=== PATIENT | female | born 1975 | race Caucasian/White ===

== ENCOUNTER 2021-11-30 02:39 | Outpatient (CLI) | payer OTHER, SELFPAY | END 2021-11-30 02:40 | disposition home or self-care (01) | LOC: AMB 12-07 07:43 | PROVIDERS: PCP Family Medicine; Visit Provider Family Medicine | DX: R25.9 Unspecified abnormal involuntary movements (principal) | CPT/HCPCS: A0425; A0427 ==

== ENCOUNTER 2021-11-30 03:02 | Emergency (ER) | payer OTHER, SELFPAY ==
[2021-11-30 03:09] VITALS: BP 147/84; PULSE 99; RESP 18; TEMP 36.6; O2SAT 98; BMI 49.8
[2021-11-30] MEDS: LORazepam 0.5 MG TABLET PO (03:25)
--- NOTE | 2021-11-30 03:38 | ED_ITS ---
HPI - General Adult General Time Seen by Provider: 03:37 Date Seen: 11/30/21 Chief complaint: Unspecified Complaint, Adult Stated complaint: Shaking legs Time Seen by Provider: 11/30/21 03:04 Source: patient Mode of arrival: EMS Limitations: no limitations History of Present Illness HPI narrative: Patient is a 46-year-old female presents here with the episodes shaking, whenever she turns her head she notices her neck shakes, or when she holds arms out. Says this is happening more than usual. She has been told in the past this may be an infective her medications, she decided to come into the emergency room tonight for an assessment. She describes no history of falls or injury, no history of fevers chills or sweats, she has no personal history of seizures, use of alcohol, drugs, or other issues. Do seen her chart she was seen for myoclonic shaking in the past. She has a history of anxiety and ADHD. Related Data Home Medications Medication Instructions Recorded Confirmed albuterol sulfate 90 mcg/actuation 2 puff INHALATION Q4H PRN 11/30/21 11/30/21 aerosol inhaler budesonide-formoterol HFA 160 2 puff INHALATION Q12H 11/30/21 11/30/21 mcg-4.5 mcg/actuation aerosol inhaler bupropion HCl 150 mg 24 hr tablet, 150 mg PO DAILY 11/30/21 11/30/21 extended release fluticasone 250 mcg-salmeterol 50 1 inh INHALATION Q12H 11/30/21 11/30/21 mcg/dose blistr powdr for inhalation (Wixela Inhub) ipratropium 0.5 mg-albuterol 3 mg 3 ml INHALATION Q6H PRN 11/30/21 11/30/21 (2.5 mg base)/3 mL nebulization soln levothyroxine 200 mcg tablet 200 mcg PO DAILY 11/30/21 11/30/21 mirabegron 50 mg tablet,extended 50 mg PO Q24H 11/30/21 11/30/21 release 24 hr (Myrbetriq) montelukast 10 mg tablet 10 mg PO HS 11/30/21 11/30/21 paroxetine HCl 40 mg tablet 40 mg PO HS 11/30/21 11/30/21 Allergies Allergy/AdvReac Type Severity Reaction Status Date / Time azithromycin Allergy Intermediate Bloody Verified 11/30/21 03:14 Stools latex Allergy Intermediate Rash Verified 11/30/21 03:14 oxycodone Allergy Intermediate Agitated Verified 11/30/21 03:14 scopolamine Allergy Intermediate Tremors Verified 11/30/21 03:14 Review of Systems Status of ROS: Reports: 10 or more systems reviewed and unremarkable except as noted in History and below [facility] History ADHD Anxiety and depression Asthma GERD (gastroesophageal reflux disease) Hydrocephalus Hyperlipidemia Hyperthyroidism RODRICK (obstructive sleep apnea) Surgical History No significant past surgical history Social History Smoking Status: Never smoker Do you use any of these nicotine containing products: None How often do you have a drink containing alcohol: never How often do you have six or more drinks on one occasion: Never AUDIT-C Alcohol total score: 0 Non-prescribed substance use: denies use Exam Const: Vital Signs, click to edit/add: Vital Signs - 24 hr 11/30/21 03:09 Temperature 97.9 F Pulse Rate [Right Pulse Oximeter] 99 Respiratory Rate 18 Blood Pressure [Ri ght Upper Arm] 147/84 H Pulse Oximetry 98 Documenting provider has reviewed patient's vital signs: yes Common n ormals: no apparent distress and oriented x3 General appearance: cooperative and comfortable Nutritional appearance: obese Orientation/consciousness: Yes awake, Yes oriented to person, Yes oriented to place and Yes oriented to time HENMT: Common normals: normocephalic, head/scalp atraumatic, external ears normal, EAC's normal and TM's normal bilaterally Head and scalp: normocephalic and atraumatic External ear: external ears normal External auditory canal: EAC's normal Tympanic membrane: TM's normal bilaterally Mouth: oral and palatal mucosa normal Eye: Common normals: PERRL, EOMs intact bilaterally (The left eye seems a little dysconjugate to the right.), conjunctivae normal and fundi normal bilaterally Visual acuity: acuity normal Periorbital: periorbital findings normal Eyelid: eyelids normal Conjunctiva: conjunctiva(e) normal Sclera: sclerae normal Cornea: corneas normal Pupil: PERRL Direct Ophthalmoscopy: fundi normal bilaterally Neck & C-Spine: Common normals: full ROM, no lymphadenopathy, supple, no meningeal signs and no JVD Other: She does have episodes when she turns her head that her head will shake. Is clearly voluntary or volitional, given what I see. Does not seem to be intention tremor type situation. Lymph: Lymphatic: no lymphadenopathy noted and no lymphedema noted Resp: Common normals: normal respiratory effort, no retractions, no use of accessory muscles, clear to auscultation bilaterally and percussion normal Auscultation: clear to auscultation bilaterally Percussion: percussion normal Cardio: Common normals: no JVD, regular rate, regular rhythm, S1 normal heart sound, S2 normal heart sound, no gallops, no clicks, no murmurs, no rub and peripheral pulses 2+ throughout Rate: regular rate Rhythm: regular rhythm Heart sounds: S1 normal and S2 normal Peripheral pulses: pulses 2+ throughout GI: Common normals: Normal to inspection, nondistended, normoactive bowel sounds present, soft to palpation, non-tender, no hepatosplenomegaly, no masses and no bruits Palpation: soft and no hepatosplenomegaly : Common normals: no CVA tenderness, external appearance normal, appearance of the vagina normal, appearance of the cervix normal and adnexae non-tender Bladder/kidney exam: no CVA tenderness Back & Pelvis: Common normals: no CVA tenderness, thoracic and lumbar spine normal to inspection, no thoracic nor lumbar tenderness, thoraco-lumbar ROM normal and straight leg raise negative bilaterally Extremity: Common normals: normal to inspection, full ROM, normal capillary refill, no joint enlargement, no clubbing, cyanosis or edema, no calf tenderness and no pedal edema Neuro: Common normals: oriented x3, CN's II-XII intact bilaterally, moves all extremities, no focal motor deficits, no sensory deficits noted, deep tendon reflexes 2+ bilaterally and gait normal Sensorium/orientation: awake, oriented to person, oriented to place and oriented to time Meningeal signs: no meningeal signs Cranial nerves: CN normal except as noted Coordination/balance: [id number] test normal and [id number] test normal Speech: speech normal Gait (neuro): normal gait Motor exam: strength 5/5 throughout, no pronator drift, no tremor noted, no asterixis, no fasciculations and muscle tone normal throughout Coordination: [id number] test normal and [id number] test normal Psych: Common normals: mental status grossly normal Skin: Common normals: no rashes or lesions noted General skin exam: no rashes or lesions noted Course Course Hospital Course: I do not think this is seizure activity, this seems to be either voluntary or myoclonic type situation. She has had this before in the past and I do not think this is tardive dyskinesia or a dystonia. Reevaluation(s) Reevaluation #1: Patient doing well we are unable the find a ride with her home, we will let her sleep here, the Ativan seems to be working. Once morning comes around we can discharge her to follow up with primary MD. she was comfortable with this plan. Time: 04:02 Vital Signs Vital signs: Initial Vital Signs Temperature 97.9 F 11/30/21 03:09 Temperature Source Temporal Artery Scan 11/30/21 03:09 Pulse Rate 99 11/30/21 03:09 Respiratory Rate 18 11/30/21 03:09 Blood Pressure 147/84 H 11/30/21 03:09 Blood Pressure Mean 105 11/30/21 03:09 Blood Pressure Position Sitting 11/30/21 03:09 Pulse Oximetry 98 11/30/21 03:09 Oxygen Delivery Method 11/30/21 03:09 Vital Signs Temperature 97.9 F 11/30/21 03:09 Pulse Rate 99 11/30/21 03:09 Respiratory Rate 18 11/30/21 03:09 Blood Pressure 147/84 H 11/30/21 03:09 Pulse Oximetry 98 11/30/21 03:09 Temperature 97.9 F 11/30/21 03:09 Pulse Rate 99 11/30/21 03:09 Respiratory Rate 18 11/30/21 03:09 Blood Pressure 147/84 H 11/30/21 03:09 Pulse Oximetry 98 11/30/21 03:09 Medical Decision Making MDM Narrative Medical decision making narrative: Differential diagnosis include but not limited to epilepsy, drug toxin ingestion, blood sugar abnormalities, cancer, syncope, and electrolyte imbalances. This included life-threatening complications of drug toxin ingestion, cancer, and trauma head injury. Medical Records Medical records reviewed: Yes I reviewed the patient's medical records Discharge Plan Discharge Prescriptions: No Action montelukast 10 mg tablet 10 mg PO HS 0RF Label Comments: TAKE 1 TABLET BY MOUTH EVERYDAY AT BEDTIME Myrbetriq 50 mg tablet extended release 24 hr 50 mg PO Q24H 0RF Label Comments: TAKE 1 TABLET BY MOUTH EVERY DAY levothyroxine 200 mcg tablet 200 mcg PO DAILY 0RF Label Comments: TAKE 1 TABLET BY MOUTH DAILY. paroxetine HCl 40 mg tablet 40 mg PO HS 0RF Label Comments: TAKE 1 TABLET BY MOUTH EVERYDAY AT BEDTIME albuterol sulfate 90 mcg/actuation HFA aerosol inhaler 2 puff INHALATION Q4H PRN0RF Label Comments: INHALE 2 PUFFS BY MOUTH EVERY 4 HOURS NEEDED budesonide-formoterol 160-4.5 mcg/actuation HFA aerosol inhaler 2 puff INHALATION Q12H 0RF Label Comments: INHALE 2 PUFFS BY MOUTH TWICE DAILY bupropion HCl 150 mg tablet extended release 24 hr 150 mg PO DAILY 0RF Label Comments: TAKE 1 TABLET BY MOUTH DAILY. fluticasone propion-salmeterol [Wixela Inhub] 250-50 mcg/dose blister with device 1 inh INHALATION Q12H 0RF Label Comments: INHALE 1 PUFF BY MOUTH TWICE A DAY ipratropium-albuterol 0.5 mg-3 mg(2.5 mg base)/3 mL solution for nebulization 3 ml INHALATION Q6H PRN0RF Label Comments: INHALE ONE VIAL VIA NEBULIZER FOUR TIMES DAILY Follow Up/Referrals: Geronimo Lamb MD [Primary Care Provider] -
[2021-11-30] MEDS: IPRAT-ALBUT 0.5-2.5 MG/3 ML NEB 1 NEB IH (05:50)
[2021-11-30 06:08] VITALS: BP 136/98; PULSE 95; RESP 18; TEMP 36.6; O2SAT 92
== END 2021-11-30 07:27 | disposition home or self-care (01) ==
LOC: ED 03:39
PROVIDERS: Emergency Provider Family Medicine; PCP Family Medicine
DX: R25.9 Unspecified abnormal involuntary movements (principal)
CPT/HCPCS: 94640; 99283; A9270

== ENCOUNTER 2022-02-20 06:59 | Outpatient (CLI) | payer OTHER, SELFPAY | END 2022-02-20 07:00 | disposition home or self-care (01) | LOC: AMB 03-04 12:01 | PROVIDERS: PCP Family Medicine; Visit Provider Family Medicine | DX: R06.09 Other forms of dyspnea (principal); R07.89 Other chest pain | CPT/HCPCS: A0425; A0427 ==

== ENCOUNTER 2022-02-20 07:33 | Emergency (ER) | payer OTHER, SELFPAY ==
[2022-02-20] VITALS (11 sets, daily range): BP systolic 113–152; BP diastolic 09–109; PULSE 74–85; RESP 12–26; TEMP 35.9; O2SAT 93–97; BMI 50.2
--- NOTE | 2022-02-20 08:10 | ED_ITS ---
HPI - SOB/Dyspnea General Time Seen by Provider: 08:10 Date Seen: 02/20/22 Chief Complaint: Shortness of Breath/Dyspnea Stated Complaint: Difficulty breathing Time Seen by Provider: 02/20/22 08:10 Source: patient, RN notes reviewed and old records reviewed Mode of arrival: EMS Limitations: no limitations History of Present Illness HPI Narrative: Patient is a very pleasant 46-year-old female with multiple medical problems including history of asthma with significant exacerbation in June resulting in intermittent O2 use, obesity, depression and anxiety, ADHD with congenital hydrocephalus who comes to the emergency room for evaluation of chest pain. Overnight patient had substernal chest pain that she thinks stems from 24 hours of shortness of breath which began on Friday02/18/2022. Prior to that, patient noted the onset of diarrhea February 14 through February 16. She then had the onset of a sore throat and runny nose on Friday yesterday February 18 along with the shortness of breath. She states that she had to use her oxygen which she typically only uses at night. In regards to her chest pain, she feels that that is somewhat improved and notes now her pain is more under her left rib cage. Patient does agree that she feels like her lower extremities have been more swollen. She is not on blood thinners and states that she has not been moving around very much. Patient notes exposure to COVID in May of 2021. During that time she developed diarrhea, body aches and a fever but never tested positive for COVID. She was seen multiple times in the emergency room in June for respiratory complaints. She was admitted to [facility] for asthma exacerbation with hypoxia at the end of June. Again, notes she never tested positive for COVID. She only uses oxygen at night She notes that in May she was exposed and had symptoms similar to COVID including fever, loose stools and body aches. In June she was seen multiple times at the ER and finally hospitalized with oxygen on July 20 per patient. She notes that she was sent home with oxygen after 5 days. Also she has been experiencing some strange shaking movements. She is scheduled to see neuro and neurological tomorrow. She states that at times her whole body will shake. Nursing staff notes that there was a 5 seconds event while they were doing triage. Patient's head moved back of 4th and her whole body was shaking. Patient demonstrates to me involuntary movements of her right arm. Noted past medical history is chronic diarrhea. Also noted ED visit for these movements. Physician assessment is that they are myoclonic or voluntary in nature. Patient has appointment with Neurology tomorrow 02/21/2022 for EEG. MD elicited complaint: shortness of breath Pertinent past history: asthma Onset (ago): day(s) Context: recent illness and anxiety Severity: moderate Known history of: asthma Associated symptoms: chest pain Treatment prior to arrival: oxygen and bronchodilator Related Data Home oxygen amount: 1 liter Home Medications Medication Instructions Recorded Confirmed albuterol sulfate 90 mcg/actuation 2 puff inhalation Q4H PRN 11/30/21 11/30/21 aerosol inhaler budesonide-formoterol HFA 160 2 puff inhalation Q12H 11/30/21 11/30/21 mcg-4.5 mcg/actuation aerosol inhaler bupropion HCl 150 mg 24 hr tablet, 150 mg PO DAILY 11/30/21 11/30/21 extended release fluticasone 250 mcg-salmeterol 50 1 inh inhalation Q12H 11/30/21 11/30/21 mcg/dose blistr powdr for inhalation (Wixela Inhub) ipratropium 0.5 mg-albuterol 3 mg 3 ml inhalation Q6H PRN 11/30/21 11/30/21 (2.5 mg base)/3 mL nebulization soln levothyroxine 200 mcg tablet 200 mcg PO DAILY 11/30/21 11/30/21 mirabegron 50 mg tablet,extended 50 mg PO Q24H 11/30/21 11/30/21 release 24 hr (Myrbetriq) montelukast 10 mg tablet 10 mg PO HS 11/30/21 11/30/21 paroxetine HCl 40 mg tablet 40 mg PO HS 11/30/21 11/30/21 Allergies Allergy/AdvReac Type Severity Reaction Status Date / Time azithromycin Allergy Intermediate Bloody Verified 02/20/22 08:01 Stools latex Allergy Intermediate Rash Verified 02/20/22 08:01 oxycodone Allergy Intermediate Agitated Verified 02/20/22 08:01 scopolamine Allergy Intermediate Tremors Verified 02/20/22 08:01 Review of Systems Status of ROS: Reports: 10 or more systems reviewed and unremarkable except as noted in History and below Const: Reports: fatigue; Denies: fever or chills Eyes: Denies: change in vision ENMT: Reports: throat pain; Denies: neck pain or difficulty swallowing Cardio: Reports: chest pain (Improved), swelling of feet/ankles (Subjective) a nd shortness of breath with exertion (Has been chronic since COVID infection in May.); Denies: palpitations Resp: Reports: shortness of breath (Has been chronic since COVID infection in May.) GI: Reports: abdominal pain, nausea and diarrhea (Last week now improved); Denies: vomiting or difficulty swallowing : Denies: painful urination or urinary frequency Musculo: Denies: back pain or neck pain Integ/Breast: Denies: rash Neuro: Denies: headache or numbness in extremities Psych: Reports: anxiety (History of) and other (Depression without suicidal ideation) Endo: Reports: fatigue PFSH PFS Medical History ADHD Anxiety and depression Asthma GERD (gastroesophageal reflux disease) Hydrocephalus Hyperlipidemia Hyperthyroidism RODRICK (obstructive sleep apnea) Surgical History No significant past surgical history Social History Smoking Status: Never smoker Do you use any of these nicotine containing products: None How often do you have a drink containing alcohol: never How often do you have six or more drinks on one occasion: Never AUDIT-C Alcohol total score: 0 Non-prescribed substance use: denies use Exam Narrative: Exam Narrative: Gross and fine motor movement upper extremities lower extremities with intact. Const: Vital Signs, click to edit/add: Vital Signs - 24 hr 02/20/22 07:44 02/20/22 10:30 02/20/22 11:00 Temperature 96.6 F L Pulse Rate [Right Pulse Oximeter] 80 79 80 Respiratory Rate 18 15 16 Blood Pressure [Ri ght Forearm] 122/77 152/109 H 127/85 Pulse Oximetry 93 97 95 Oxygen Delivery Me thod Room Air Nasal Cannula Nasal Cannula Oxygen Flow Rate 1 02/20/22 11:30 02/20/22 12:00 02/20/22 12:15 Temperature Pulse Rate [Right Pulse Oximeter] 82 74 80 Respiratory Rate 26 H 16 15 Blood Pressure [Ri ght Forearm] 119/90 H 127/91 H Pulse Oximetry 95 96 95 Oxygen Delivery Me thod Nasal Cannula Nasal Cannula Nasal Cannula Oxygen Flow Rate 1 02/20/22 08:00 02/20/22 08:43 02/20/22 08:30 Temperature Pulse Rate [Right Pulse Oximeter] 80 Respiratory Rate 16 Blood Pressure [Ri ght Forearm] 116/85 Pulse Oximetry 95 94 Oxygen Delivery Me thod Nasal Cannula Nasal Cannula Room Air Oxygen Flow Rate 1 1 02/20/22 09:00 02/20/22 09:30 02/20/22 10:00 Temperature Pulse Rate [Right Pulse Oximeter] 80 85 81 Respiratory Rate 17 12 20 Blood Pressure [Ri ght Forearm] 113/86 122/85 127/97 H Pulse Oximetry 95 95 97 Oxygen Delivery Me thod Nasal Cannula Nasal Cannula Nasal Cannula Oxygen Flow Rate 1 1 02/20/22 10:30 Temperature Pulse Rate [Right Pulse Oximeter] 77 Respiratory Rate 16 Blood Pressure [Ri ght Forearm] 152/09 H Pulse Oximetry 97 Oxygen Delivery Me thod Nasal Cannula Oxygen Flow Rate 1 Documenting provider has reviewed patient's vital signs: yes Common normals: no apparent distress, oriented x3 and alert General appearance: cooperative, comfortable, well kempt and anxious HENMT: Common normals: head/scalp atraumatic, hearing grossly normal bilaterally and external ears normal Head and scalp: atraumatic Face and sinus: normal facial exam External ear: external ears normal Mouth: oral and palatal mucosa normal Throat: posterior oropharynx normal Eye: Common normals: PERRL and EOMs intact bilaterally Pupil: PERRL Other: Chronic dysconjugate gaze. Neck & C-Spine: Common normals: full ROM, no lymphadenopathy and supple Resp: Common normals: normal respiratory effort, no use of accessory muscles and clear to auscultation bilaterally Effort & inspection: able to speak in complete sentences and symmetric chest movement Auscultation: clear to auscultation bilaterally Cardio: Common normals: regular rate and regular rhythm Rate: regular rate Rhythm: regular rhythm GI: Common normals: soft to palpation Palpation: soft : Common normals: no CVA tenderness Bladder/kidney exam: no CVA tenderness Back & Pelvis: Common normals: no CVA tenderness Extremity: Common normals: normal to inspection and full ROM Neuro: Common normals: oriented x3, moves all extremities and no focal motor deficits Sensorium/orientation: alert Psych: Common normals: cooperative and speech normal Appearance: well kempt Activity/motor behavior: appropriate eye contact Speech: normal speech Other: Patient noted to show me and demonstrates how her right arm will suddenly moving a flapping like behavior. She is abducting her arm in order to show me this movement at her wrist hand and elbow and is telling me that this is involuntary. Skin: Common normals: no rashes or lesions noted General skin exam: no rashes or lesions noted Course Course Hospital Course: Will obtain cardiac workup including EKGs and troponin including x-ray. Will also check CBC, comprehensive panel as well as COVID. Have added a D-dimer, proBNP and urinalysis. Reevaluation(s) Reevaluation #1: Patient noted to call nursing staff back into room stating that she had just had full body seizure. This was not noted by nursing staff or on video. Reevaluation #2: Patient stating that she is very hungry. She was able to eat a sandwich. I do speak with her about her EKGs and troponins all which have been reassuring and negative. Chest x-ray, D-dimer, also negative. ProBNP is elevated slightly at 200 but chest x-ray without any evidence of pulmonary edema. Vital Signs Vital signs: Initial Vital Signs Temperature 96.6 F L 02/20/22 07:44 Temperature Source Temporal Artery Scan 02/20/22 07:44 Pulse Rate 80 02/20/22 07:44 Pulse Rhythm 02/20/22 07:44 Respiratory Rate 18 02/20/22 07:44 Blood Pressure 122/77 02/20/22 07:44 Blood Pressure Mean 92 02/20/22 07:44 Blood Pressure Position Sitting 02/20/22 07:44 Pulse Oximetry 93 02/20/22 07:44 Oxygen Delivery Method 02/20/22 07:44 Vital Signs Temperature 96.6 F L 02/20/22 07:44 Pulse Rate 80 02/20/22 07:44 Respiratory Rate 18 02/20/22 07:44 Blood Pressure 122/77 02/20/22 07:44 Pulse Oximetry 93 02/20/22 07:44 Oxygen Delivery Method 02/20/22 07:44 Temperature 96.6 F L 02/20/22 07:44 Pulse Rate 80 02/20/22 12:15 Respiratory Rate 15 02/20/22 12:15 Blood Pressure 127/91 H 02/20/22 12:00 Pulse Oximetry 95 02/20/22 12:15 Oxygen Delivery Method 02/20/22 12:15 Oxygen Flow Rate 1 02/20/22 12:15 MDM - SOB/Dyspnea MDM Narrative Medical decision making narrative: 1. Chest pain-troponins are negative x2 an EKG shows sinus rhythm without any acute abnormalities. Patient noted to be eating and drinking without difficulty. Seems to be feeling much better. Is preferring to stay on her oxygen even though O2 sats on room air were 93%. States that this has been ongoing since her COVID infection in May although she tested negative at that time. I did not note significant lower extremity edema. Would recommend outpatient echocardiogram and return to the emergency room for worsening symptoms. 2. Movement disorder-patient has neurology follow-up tomorrow. By my witness appears to be myoclonic type of movement. Maybe pseudo-seizure. Patient is entirely aware of the events when they occur. 3. Depression-no suicidal ideation. 4. Disposition-at this time I do speak with patient about reassuring lab values. I do not think I would change anything at this time. No evidence of pneumonia, D-dimer is negative, troponins are negative,. She may have another virus at this time. No fevers or chills. Would recommend returning for onset of worsening or new symptoms. Read she feels comfortable going home. I do recommend having friend or family member comes that with her today. Of course for any worsening symptoms return to the emergency room. Medical Records Attestation: I reviewed the patient's medical records. Lab Data Attestation: I reviewed the patient's lab results. Labs: Lab Results 02/20/22 02/20/22 02/20/22 Range/Units 08:00 08:00 08:00 WBC 9.47 (4.50-11.00) K/uL RBC 4.66 (4.00-5.20) m/uL Hgb 13.6 (12.0-16.0) gm/dL Hct 41.9 (33.0-51.0) % MCV 90 (80-100) fL MCH 29 (26-34) pg MCHC 33 (32-36) gm/dL RDW Coeff of Tomy 13.2 (11.5-15.5) % Plt Count 235 (140-440) K/uL Neut % (Auto) 70.6 (42.0-72.0) % Lymph % (Auto) 21.0 (20-44) % [place] % (Auto) 6.1 (0.0-11.0) % Eos % (Auto) 1.6 (0.0-7.0) % Baso % (Auto) 0.5 (0.0-3.0) % Neut # (Auto) 6.68 (1.7-7.0) K/uL Lymph # (Auto) 1.99 (0.90-2.90) K/uL [place] # (Auto) 0.60 (0.00-0.90) K/UL Eos # (Auto) 0.15 (0.00-0.50) K/uL Baso # (Auto) 0.05 (0.00-0.30) K/uL Abs Immat Gran (auto) 0.02 (0.00-0.30) K/uL D-Dimer Quant (PE/DVT) (0.00-0.50) ug/ml Sodium 139 (135-149) mmol/L Potassium 4.2 (3.6-5.1) mmol/L Chloride 102 (96-114) mmol/L Carbon Dioxide 28 (20-32) mmol/L BUN 11 (5-24) mg/dL Creatinine 0.6 (0.5-1.5) mg/dL Estimated Creat Clear 198.77 Estimated GFR 113 ml/min Glucose 108 (60-115) mg/dL Lactate 1.5 (0.5-1.9) mmol/L Calcium 9.3 (8.4-10.6) mg/dL Total Bilirubin 0.3 (0.1-1.5) mg/dL AST 29 (12-35) U/L ALT 30 (4-35) U/L Alkaline Phosphatase 95 (40-150) U/L C-Reactive Protein 1.4 H (0.5-1.0) mg/dL NT-Pro-B Natriuret Pep 200 H (0-125) PG/mL Total Protein 6.8 (6.0-8.3) g/dL Albumin 4.1 (3.3-5.0) g/dL SARS-CoV-2 (PCR) (Negative) POC Troponin I (0.01-0.04) ng/ml 02/20/22 02/20/22 02/20/22 Range/Units 08:00 08:00 08:30 WBC (4.50-11.00) K/uL RBC (4.00-5.20) m/uL Hgb (12.0-16.0) gm/dL Hct (33.0-51.0) % MCV (80-100) fL MCH (26-34) pg MCHC (32-36) gm/dL RDW Coeff of Tomy (11.5-15.5) % Plt Count (140-440) K/uL Neut % (Auto) (42.0-72.0) % Lymph % (Auto) (20-44) % [place] % (Auto) (0.0-11.0) % Eos % (Auto) (0.0-7.0) % Baso % (Auto) (0.0-3.0) % Neut # (Auto) (1.7-7.0) K/uL Lymph # (Auto) (0.90-2.90) K/uL [place] # (Auto) (0.00-0.90) K/UL Eos # (Auto) (0.00-0.50) K/uL Baso # (Auto) (0.00-0.30) K/uL Abs Immat Gran (auto) (0.00-0.30) K/uL D-Dimer Quant (PE/DVT) 0.34 (0.00-0.50) ug/ml Sodium (135-149) mmol/L Potassium (3.6-5.1) mmol/L Chloride (96-114) mmol/L Carbon Dioxide (20-32) mmol/L BUN (5-24) mg/dL Creatinine (0.5-1.5) mg/dL Estimated Creat Clear Estimated GFR ml/min Glucose (60-115) mg/dL Lactate (0.5-1.9) mmol/L Calcium (8.4-10.6) mg/dL Total Bilirubin (0.1-1.5) mg/dL AST (12-35) U/L ALT (4-35) U/L Alkaline Phosphatase (40-150) U/L C-Reactive Protein (0.5-1.0) mg/dL NT-Pro-B Natriuret Pep (0-125) PG/mL Total Protein (6.0-8.3) g/dL Albumin (3.3-5.0) g/dL SARS-CoV-2 (PCR) Negative SARS-CoV-2 (Negative) POC Troponin I 0.00 L (0.01-0.04) ng/ml 02/20/22 Range/Units 10:33 WBC (4.50-11.00) K/uL RBC (4.00-5.20) m/uL Hgb (12.0-16.0) gm/dL Hct (33.0-51.0) % MCV (80-100) fL MCH (26-34) pg MCHC (32-36) gm/dL RDW Coeff of Tomy (11.5-15.5) % Plt Count (140-440) K/uL Neut % (Auto) (42.0-72.0) % Lymph % (Auto) (20-44) % [place] % (Auto) (0.0-11.0) % Eos % (Auto) (0.0-7.0) % Baso % (Auto) (0.0-3.0) % Neut # (Auto) (1.7-7.0) K/uL Lymph # (Auto) (0.90-2.90) K/uL [place] # (Auto) (0.00-0.90) K/UL Eos # (Auto) (0.00-0.50) K/uL Baso # (Auto) (0.00-0.30) K/uL Abs Immat Gran (auto) (0.00-0.30) K/uL D-Dimer Quant (PE/DVT) (0.00-0.50) ug/ml Sodium (135-149) mmol/L Potassium (3.6-5.1) mmol/L Chloride (96-114) mmol/L Carbon Dioxide (20-32) mmol/L BUN (5-24) mg/dL Creatinine (0.5-1.5) mg/dL Estimated Creat Clear Estimated GFR ml/min Glucose (60-115) mg/dL Lactate (0.5-1.9) mmol/L Calcium (8.4-10.6) mg/dL Total Bilirubin (0.1-1.5) mg/dL AST (12-35) U/L ALT (4-35) U/L Alkaline Phosphatase (40-150) U/L C-Reactive Protein (0.5-1.0) mg/dL NT-Pro-B Natriuret Pep (0-125) PG/mL Total Protein (6.0-8.3) g/dL Albumin (3.3-5.0) g/dL SARS-CoV-2 (PCR) (Negative) POC Troponin I 0.00 L (0.01-0.04) ng/ml Imaging Data Chest x-ray: Attestation: I have reviewed the pertinent imaging results. My impression: No infiltrates Radiologist's impression: Negative chest x-ray ECG Data Attestation: I personally reviewed and interpreted this ECG as follows: ECG interpretation date: 02/20/22 Prior ECG tracings: available for review Interpretation: EKG 1. Shows sinus rhythm at a rate of 82. Patient noted to have no evidence of acute ST or T-wave changes. QT is within normal limits. Compared with previous EKG from September of 2021 unchanged. 2. EKG 2. By my read shows sinus rhythm at a rate of 79. No acute ST or T-wave changes are noted. Discharge Plan Discharge Clinical Impression: Movement disorder, Chest pain Patient Disposition: Home, Self-Care Condition: Improved Additional Instructions: Today you had: A negative COVID test Normal D-dimer Negative EKGs and troponin x2 Normal chest x-ray Recommend follow-up with your primary MD for outpatient echocardiogram. Follow-up as scheduled with Neurology tomorrow. Return to the emergency room for worsening symptoms or onset of new symptoms. Prescriptions: No Action montelukast 10 mg tablet 10 mg PO HS Label Comments: TAKE 1 TABLET BY MOUTH EVERYDAY AT BEDTIME Myrbetriq 50 mg tablet extended release 24 hr 50 mg PO Q24H Label Comments: TAKE 1 TABLET BY MOUTH EVERY DAY levothyroxine 200 mcg tablet 200 mcg PO DAILY Label Comments: TAKE 1 TABLET BY MOUTH DAILY. paroxetine HCl 40 mg tablet 40 mg PO HS Label Comments: TAKE 1 TABLET BY MOUTH EVERYDAY AT BEDTIME albuterol sulfate 90 mcg/actuation HFA aerosol inhaler 2 puff INHALATION Q4H PRN Label Comments: INHALE 2 PUFFS BY MOUTH EVERY 4 HOURS NEEDED budesonide-formoterol 160-4.5 mcg/actuation HFA aerosol inhaler 2 puff INHALATION Q12H Label Comments: INHALE 2 PUFFS BY MOUTH TWICE DAILY bupropion HCl 150 mg tablet extended release 24 hr 150 mg PO DAILY Label Comments: TAKE 1 TABLET BY MOUTH DAILY. fluticasone propion-salmeterol [Wixela Inhub] 250-50 mcg/dose blister with device 1 inh INHALATION Q12H Label Comments: INHALE 1 PUFF BY MOUTH TWICE A DAY ipratropium-albuterol 0.5 mg-3 mg(2.5 mg base)/3 mL solution for nebulization 3 ml INHALATION Q6H PRN Label Comments: INHALE ONE VIAL VIA NEBULIZER FOUR TIMES DAILY Follow Up/Referrals: Geronimo Lamb MD [Primary Care Provider] - Stand Alone Forms: [employer] Info Instructions
--- NOTE | 2022-02-20 08:20 | ED.NURSE ---
0759 started saline lock and drawn blood from the site. placed in the left wrist #20 iv. pending results for POC trop. 0802--was talking to patient and then a sudden full body shaking of patient like a seizure and unresponding to staff nurse. this event lasted about less than 5 seconds. patient returned talking to staff nurse. patient stated was been happening a lot more frequently and has an appointment at [facility] tomorrow. during the night patient had the legs shaking and stated has restless leg syndrome and sometimes the left arm will shake, but not like this. Patient stated, know that I am more awake, I do not think i have chest pain it is more epigastric area/rib pain.
[2022-02-20 08:33] LABS: Lactate* 1.5 mmol/L (0.5-1.9)
[2022-02-20 08:37] LABS: Basophils Absolute Auto 0.05 K/uL (0.00-0.30); Basophils Percent Auto 0.5 % (0.0-3.0); Eosinophils Absolute Auto 0.15 K/uL (0.00-0.50); Eosinophils Percent Auto 1.6 % (0.0-7.0); Hematocrit 41.9 % (33.0-51.0); Hemoglobin* 13.6 gm/dL (12.0-16.0); Immature Granulocytes Abs Auto 0.02 K/uL (0.00-0.30); Lymphocytes Absolute Auto 1.99 K/uL (0.90-2.90); Mean Corpuscular HGB Conc 33 gm/dL (32-36); Mean Corpuscular Hemoglobin 29 pg (26-34); Mean Corpuscular Volume 90 fL (80-100); Monocytes Percent Auto 6.1 % (0.0-11.0); Neutrophils Absolute Auto 6.68 K/uL (1.7-7.0); Neutrophils Percent Auto 70.6 % (42.0-72.0); Platelet Count* 235 K/uL (140-440); RDW Coefficient of Variation % 13.2 % (11.5-15.5); Red Blood Count 4.66 m/uL (4.00-5.20); White Blood Count* 9.47 K/uL (4.50-11.00)
[2022-02-20 08:39] LABS: Slide Review Reflex No
[2022-02-20 08:58] LABS: Albumin* 4.1 g/dL (3.3-5.0); Chloride* 102 mmol/L (96-114); Potassium* 4.2 mmol/L (3.6-5.1); Sodium* 139 mmol/L (135-149)
[2022-02-20 09:00] LABS: Bilirubin Total* 0.3 mg/dL (0.1-1.5); Creatinine* 0.6 mg/dL (0.5-1.5); Est. Creatinine Clearance* 198.77; Estimated Glomerular Filt Rate 113 ml/min
--- NOTE | 2022-02-20 09:00 | CRLHL7_ITS ---
For Patients: As a result of the Cures Act, medical imaging exams and procedure reports are released immediately into your electronic medical record. You may view this report before your referring provider. If you have questions, please contact your health care provider. INDICATION: Chest pain TECHNIQUE: Chest 1 view COMPARISON: 10/21/2021 FINDINGS: Cardiovascular and mediastinum: Cardiac silhouette is upper limits of normal. Artifactual curvilinear shadow overlying the lower hemithorax related to soft tissue density. Lungs and pleural spaces: Lungs are clear. No sign of infiltrate or mass. No sign of pleural effusion. No pneumothorax. Bones and soft tissues: No significant findings. IMPRESSION: No acute findings. Dictated by Armando Mayorga MD @ 02/20/2022 9:30:23 AM (Electronically Signed)
--- NOTE | 2022-02-20 09:00 | ED.NURSE ---
pt put call light on and wanted to inform the staff that just had another full body shakes. patient stated feeling weird stated both sides of the face are numb and feeling really tired. Informed Dr. Egan of this event.
[2022-02-20 09:01] LABS: Alanine Aminotransferase* 30 U/L (4-35); Alkaline Phosphatase* 95 U/L (40-150); Aspartate Amino Transferase* 29 U/L (12-35); Blood Urea Nitrogen* 11 mg/dL (5-24); Carbon Dioxide* 28 mmol/L (20-32); Glucose* 108 mg/dL (60-115); Total Protein* 6.8 g/dL (6.0-8.3)
[2022-02-20 09:02] LABS: Calcium* 9.3 mg/dL (8.4-10.6)
[2022-02-20 09:04] LABS: C Reactive Protein* 1.4 mg/dL (0.5-1.0)
--- NOTE | 2022-02-20 09:06 | ED.NURSE ---
patient put director digital communications light as felt having an event coming on. noted on the camera full body shaking lasting less than 10 seconds. when asked how patient feels stated i feel fatigued, and as if coming out of anesthesia. stated the face is less numb on both sides. Portable CXR done in the room.
[2022-02-20 09:10] LABS: NT Pro B Type NatriureticPept* 200 PG/mL (0-125)
[2022-02-20 09:13] LABS: SARS PCR* Negative SARS-CoV-2 (Negative)
[2022-02-20 09:17] LABS: D Dimer Quantitative* 0.34 ug/ml (0.00-0.50)
== END 2022-02-20 12:28 | disposition home or self-care (01) ==
PROVIDERS: Emergency Provider Family Medicine; PCP Family Medicine
DX: R07.9 Chest pain, unspecified (principal); G25.9 Extrapyramidal and movement disorder, unspecified
CPT/HCPCS: 36415; 71045; 80053; 81001; 83605; 83880; 84484; 85025; 85379; 86140; 87635; 93005; 99285

== ENCOUNTER 2022-04-11 19:34 | Outpatient (CLI) | payer OTHER, SELFPAY | END 2022-04-11 19:35 | disposition home or self-care (01) | LOC: AMB 05-06 21:04 | PROVIDERS: PCP Family Medicine; Visit Provider Emergency Medicine Emergency Medical Services | DX: R06.09 Other forms of dyspnea (principal) | CPT/HCPCS: A0425; A0429 ==

== ENCOUNTER 2022-04-11 19:55 | Emergency (ER) | payer OTHER, SELFPAY ==
[2022-04-11 20:03] VITALS: BP 127/88; PULSE 98; RESP 20; TEMP 37.3; O2SAT 90
--- NOTE | 2022-04-11 20:28 | CRLHL7_ITS ---
For Patients: As a result of the Cures Act, medical imaging exams and procedure reports are released immediately into your electronic medical record. You may view this report before your referring provider. If you have questions, please contact your health care provider. INDICATION: Shortness of breath. TECHNIQUE: Chest 2 views. COMPARISON: None. FINDINGS: Cardiovascular and mediastinum: Cardiomediastinal silhouette is within normal limits Lungs and pleural spaces: Lungs are clear. No sign of pleural effusion. No pneumothorax. Bones and soft tissues: No significant findings. IMPRESSION: No acute or significant findings. Dictated by Jori Cunningham MD @ 04/11/2022 8:43:34 PM (Electronically Signed)
--- NOTE | 2022-04-11 20:29 | ED.SOB ---
HPI - SOB/Dyspnea General Chief Complaint: Shortness of Breath/Dyspnea Stated Complaint: Shortness of Breath Time Seen by Provider: 04/11/22 20:19 History of Present Illness HPI Narrative: This 46-year-old female comes in reporting increased shortness of breath over the past 3 days. She does have an occasional cough. She does not report any fevers. She is on home oxygen that she uses mostly at night. She does take inhaler medications including albuterol and a steroid. She states that her oximetry is typically in the low 90s. She has noted oximetry in the upper 80s% recently. Related Data Home Medications Medication Instructions Recorded Confirmed albuterol sulfate 90 mcg/actuation 2 puff inhalation Q4H PRN 11/30/21 11/30/21 aerosol inhaler budesonide-formoterol HFA 160 2 puff inhalation Q12H 11/30/21 11/30/21 mcg-4.5 mcg/actuation aerosol inhaler fluticasone 250 mcg-salmeterol 50 1 inh inhalation Q12H 11/30/21 11/30/21 mcg/dose blistr powdr for inhalation (Wixela Inhub) ipratropium 0.5 mg-albuterol 3 mg 3 ml inhalation Q6H PRN 11/30/21 11/30/21 (2.5 mg base)/3 mL nebulization soln levothyroxine 200 mcg tablet 200 mcg PO DAILY 11/30/21 11/30/21 mirabegron 50 mg tablet,extended 50 mg PO Q24H 11/30/21 11/30/21 release 24 hr (Myrbetriq) montelukast 10 mg tablet 10 mg PO HS 11/30/21 11/30/21 omeprazole 20 mg capsule,delayed 40 mg PO QDAY 02/26/22 release Previous Rx's Medication Instructions Recorded bupropion HCl 150 mg 24 hr tablet, 150 mg PO DAILY #30 tabs 03/13/22 extended release paroxetine HCl 40 mg tablet 40 mg PO HS #30 tabs 03/13/22 Allergies Allergy/AdvReac Type Severity Reaction Status Date / Time azithromycin Allergy Intermediate Bloody Verified 02/20/22 08:01 Stools latex Allergy Intermediate Rash Verified 02/20/22 08:01 oxycodone Allergy Intermediate Agitated Verified 02/20/22 08:01 scopolamine Allergy Intermediate Tremors Verified 02/20/22 08:01 Review of Systems Status of ROS: Reports: 10 or more systems reviewed and unremarkable except as noted in History and below Narrative: Constitutional: No fevers, no weight gain or loss. Eyes: No discharge. No vision changes. HENT: No congestion, no sore throat, no ear pain. Cardiovascular: No chest pain, no palpitations. Respiratory: Shortness of breath as described above. Occasional cough. Gastrointestinal: No abdominal pain, no vomiting, no diarrhea. Genitourinary: No dysuria, no hematuria. Musculoskeletal: Normal range of motion. Skin: No rashes, no pruritis. Neurological: No dizziness, weakness, sensory change, speech change. Endo/Heme/Allergies: No bruising or bleeding. No polydipsia. Pysch: no suicidality, no anxiety, no insomnia. All other systems reviewed and are negative. [facility] Medical History (Updated 04/11/22 @ 21:42 by Pedro Luis Newman MD) ADHD Anxiety and depression Asthma GERD (gastroesophageal reflux disease) Hydrocephalus Hyperlipidemia Hyperthyroidism RODRICK (obstructive sleep apnea) Surgical History No significant past surgical history Social History Smoking Status: Never smoker Do you use any of these nicotine containing products: None How often do you have a drink containing alcohol: never How often do you have six or more drinks on one occasion: Never AUDIT-C Alcohol total score: 0 Non-prescribed substance use: denies use Exam Narrative: Exam Narrative: Constitutional: Well-developed, well-nourished, no acute distress. HEENT: Normocephalic, atraumatic. Neck: Normal range of motion. Nontender. Supple. Heart: Regular. No murmurs. Normal rate. Intact distal pulses. Lungs: Clear to auscultation. No chest discomfort. No wheezes, rhonchi, or rales. Abdomen: Normal bowel sounds. Nontender. No rebound tenderness. Genitalia: Deferred. Back: No midline tenderness. Normal range of motion. Extremities: Normal range of motion. No injury. Skin: Intact. No rash. Warm. No erythema or pallor. Neurologic: No altered sensation. No weakness. Alert and oriented. Psychiatric: No suicidality. No anxiety or depression. No insomnia. Nursing notes and vitals signs are reviewed. Const: Vital Signs, click to edit/add: Vital Signs - 24 hr 04/11/22 20:03 Temperature 99.1 F Pulse Rate [Left P ulse Oximeter] 98 Respiratory Rate 20 Blood Pressure [Ri ght Upper Arm] 127/88 Pulse Oximetry 90 Oxygen Delivery Me thod Room Air Course Vital Signs Vital signs: Initial Vital Signs Temperature 99.1 F 04/11/22 20:03 Temperature Source Temporal Artery Scan 04/11/22 20:03 Pulse Rate 98 04/11/22 20:03 Pulse Rhythm 04/11/22 20:03 Respiratory Rate 20 04/11/22 20:03 Blood Pressure 127/88 04/11/22 20:03 Blood Pressure Mean 101 04/11/22 20:03 Blood Pressure Position Semi-Fowlers 04/11/22 20:03 Pulse Oximetry 90 04/11/22 20:03 Oxygen Delivery Method 04/11/22 20:03 Vital Signs Temperature 99.1 F 04/11/22 20:03 Pulse Rate 98 04/11/22 20:03 Respiratory Rate 20 04/11/22 20:03 Blood Pressure 127/88 04/11/22 20:03 Pulse Oximetry 90 04/11/22 20:03 Oxygen Delivery Method 04/11/22 20:03 Temperature 99.1 F 04/11/22 20:03 Pulse Rate 98 04/11/22 20:03 Respiratory Rate 20 04/11/22 20:03 Blood Pressure 127/88 04/11/22 20:03 Pulse Oximetry 90 04/11/22 20:03 Oxygen Delivery Method 04/11/22 20:03 MDM - SOB/Dyspnea MDM Narrative Medical decision making narrative: This patient comes in reporting some decrease in her oximetry readings. She states she is typically having oximetry at 90-92% at rest. Recently she is noted it is been 87-90% at rest. She does have home oxygen which can be used as needed. Today a chest x-ray returns with no acute findings. Her nasal swab for influenza and COVID also returned negative. She did receive an oral dose of dexamethasone 10 mg and states that she feels like she is improving. She otherwise has good medicines at home and feels okay to return home. I advised her to use oxygen as needed and return if worsening symptoms happen. Lab Data Labs: Lab Results 04/11/22 Range/Units 20:50 SARS-CoV-2 (PCR) Negative SARS-CoV-2 (Negative) Influenza Type A (PCR) Negative PCR FLU A (Negative) Influenza Type B (PCR) Negative PCR FLU B (Negative) Imaging Data Chest x-ray: Radiologist's impression: No acute or significant findings. Discharge Plan Discharge Clinical Impression: Asthma with acute exacerbation Patient Disposition: Home, Self-Care Condition: Stable Additional Instructions: Follow up with MD as needed or return if worsening symptoms happen. Prescriptions: No Action montelukast 10 mg tablet 10 mg PO HS Label Comments: TAKE 1 TABLET BY MOUTH EVERYDAY AT BEDTIME Myrbetriq 50 mg tablet extended release 24 hr 50 mg PO Q24H Label Comments: TAKE 1 TABLET BY MOUTH EVERY DAY levothyroxine 200 mcg tablet 200 mcg PO DAILY Label Comments: TAKE 1 TABLET BY MOUTH DAILY. albuterol sulfate 90 mcg/actuation HFA aerosol inhaler 2 puff INHALATION Q4H PRN Label Comments: INHALE 2 PUFFS BY MOUTH EVERY 4 HOURS NEEDED budesonide-formoterol 160-4.5 mcg/actuation HFA aerosol inhaler 2 puff INHALATION Q12H Label Comments: INHALE 2 PUFFS BY MOUTH TWICE DAILY fluticasone propion-salmeterol [Wixela Inhub] 250-50 mcg/dose blister with device 1 inh INHALATION Q12H Label Comments: INHALE 1 PUFF BY MOUTH TWICE A DAY ipratropium-albuterol 0.5 mg-3 mg(2.5 mg base)/3 mL solution for nebulization 3 ml INHALATION Q6H PRN Label Comments: INHALE ONE VIAL VIA NEBULIZER FOUR TIMES DAILY omeprazole 20 mg capsule,delayed release(DR/EC) 40 mg PO QDAY bupropion HCl 150 mg tablet extended release 24 hr 150 mg PO DAILY Qty: 30 0RF Label Comments: TAKE 1 TABLET BY MOUTH DAILY. paroxetine HCl 40 mg tablet 40 mg PO HS Qty: 30 0RF Label Comments: TAKE 1 TABLET BY MOUTH EVERYDAY AT BEDTIME Follow Up/Referrals: Geronimo Lamb MD [Primary Care Provider] - Stand Alone Forms: [employer] Info Instructions
[2022-04-11] MEDS: dexAMETHasone 10 MG/ML inj PO (20:50)
[2022-04-11 21:34] LABS: PCR FLU A Negative PCR FLU A (Negative); PCR FLU B Negative PCR FLU B (Negative)
[2022-04-11 21:35] LABS: SARS PCR* Negative SARS-CoV-2 (Negative)
[2022-04-11 21:49] VITALS: BP 120/86; PULSE 96; RESP 18; TEMP 37.2; O2SAT 90
== END 2022-04-11 21:56 | disposition home or self-care (01) ==
PROVIDERS: Emergency Provider Emergency Medicine Emergency Medical Services; PCP Family Medicine
DX: J45.901 Unspecified asthma with (acute) exacerbation (principal)
CPT/HCPCS: 71046; 87631; 99284; J1100

== ENCOUNTER 2022-06-03 23:54 | Outpatient (CLI) | payer OTHER, SELFPAY | END 2022-06-03 23:55 | disposition home or self-care (01) | LOC: AMB 06-04 10:41 | PROVIDERS: PCP Family Medicine; Visit Provider Family Medicine | DX: R42 Dizziness and giddiness (principal); F41.9 Anxiety disorder, unspecified | CPT/HCPCS: A0425; A0429 ==

== ENCOUNTER 2022-06-04 00:20 | Emergency (ER) | payer OTHER, SELFPAY ==
[2022-06-04 00:26] VITALS: BP 132/87; PULSE 90; TEMP 36.2; O2SAT 92; BMI 48.7
--- NOTE | 2022-06-04 01:43 | ED.NURSE ---
Pt c/o not feeling well. NA went in room to check BP; pt began screaming and yelling at NA that BP cuff was too tight. Pt would not allow BP to be checked.
[2022-06-04 02:30] VITALS: O2SAT 96
[2022-06-04 02:49] LABS: Basophils Absolute Auto 0.04 K/uL (0.00-0.30); Basophils Percent Auto 0.4 % (0.0-3.0); Hematocrit 39.8 % (33.0-51.0); Hemoglobin* 12.8 gm/dL (12.0-16.0); Immature Granulocytes Abs Auto 0.04 K/uL (0.00-0.30); Immature Granulocytes Pct Auto 0.4 %; Lymphocytes Absolute Auto 2.11 K/uL (0.90-2.90); Mean Corpuscular HGB Conc 32 gm/dL (32-36); Mean Corpuscular Hemoglobin 29 pg (26-34); Mean Corpuscular Volume 91 fL (80-100); Monocytes Percent Auto 5.9 % (0.0-11.0); Neutrophils Absolute Auto 7.07 K/uL (1.7-7.0); Neutrophils Percent Auto 70.3 % (42.0-72.0); Platelet Count* 271 K/uL (140-440); RDW Coefficient of Variation % 13.2 % (11.5-15.5); Red Blood Count 4.36 m/uL (4.00-5.20); White Blood Count* 10.05 K/uL (4.50-11.00)
[2022-06-04 02:50] LABS: Slide Review Reflex No
[2022-06-04 03:09] LABS: Albumin* 3.7 g/dL (3.3-5.0); Chloride* 106 mmol/L (96-114)
[2022-06-04 03:10] LABS: Potassium* 4.2 mmol/L (3.6-5.1); Sodium* 141 mmol/L (135-149)
[2022-06-04 03:12] LABS: Creatinine* 0.7 mg/dL (0.5-1.5); Est. Creatinine Clearance* 165.24; Estimated Glomerular Filt Rate 109 ml/min
[2022-06-04 03:13] LABS: Alanine Aminotransferase* 20 U/L (4-35); Alkaline Phosphatase* 84 U/L (40-150); Aspartate Amino Transferase* 20 U/L (12-35); Bilirubin Direct* 0.3 mg/dL (0.0-0.5); Bilirubin Total* 0.3 mg/dL (0.1-1.5); Blood Urea Nitrogen* 13 mg/dL (5-24); Carbon Dioxide* 30 mmol/L (20-32); Glucose* 103 mg/dL (60-115); Magnesium* 1.9 mg/dL (1.5-2.6); Total Protein* 6.6 g/dL (6.0-8.3)
[2022-06-04 03:15] LABS: C Reactive Protein* 2.6 mg/dL (0.5-1.0)
--- NOTE | 2022-06-04 03:31 | ED.GENADULT ---
HPI - General Adult General Chief complaint: Unspecified Complaint, Adult Stated complaint: heart palpitations Time Seen by Provider: 06/04/22 01:06 History of Present Illness HPI narrative: 46 year old women brought to the emergency department via EMS with concern and feeling ?jittery and weird? 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 No numbness or tingling. No loss of vision. No loss of consciousness or really sensation of lightheadedness. Not feeling palpitations. No chest pain or shortness of breath. No cough or cold symptoms. No fever. Complaining of more tremors lately maybe. Underlying history of pseudo seizures. Is worried that electrolytes might be off saying that seems to have been related to this feeling in the past. Feels like maybe with uses albuterol as well. No mediation changes recently. also concerned regarding thyroid. No dysuria. Related Data Home Medications Medication Instructions Recorded Confirmed albuterol sulfate 90 mcg/actuation 2 puff inhalation Q4H PRN 11/30/21 04/29/22 aerosol inhaler budesonide-formoterol HFA 160 2 puff inhalation Q12H 11/30/21 04/29/22 mcg-4.5 mcg/actuation aerosol inhaler fluticasone 250 mcg-salmeterol 50 1 inh inhalation Q12H 11/30/21 04/29/22 mcg/dose blistr powdr for inhalation (Wixela Inhub) ipratropium 0.5 mg-albuterol 3 mg 3 ml inhalation Q6H PRN 11/30/21 04/29/22 (2.5 mg base)/3 mL nebulization soln levothyroxine 200 mcg tablet 200 mcg PO DAILY 11/30/21 04/29/22 mirabegron 50 mg tablet,extended 50 mg PO Q24H 11/30/21 04/29/22 release 24 hr (Myrbetriq) montelukast 10 mg tablet 10 mg PO HS 11/30/21 04/29/22 omeprazole 20 mg capsule,delayed 40 mg PO QDAY 02/26/22 04/29/22 release Previous Rx's Medication Instructions Recorded bupropion HCl 150 mg 24 hr tablet, 150 mg PO DAILY #30 tabs 03/13/22 extended release paroxetine HCl 40 mg tablet 40 mg PO HS #30 tabs 03/13/22 amoxicillin 875 mg-potassium 1 tab PO BID #20 tabs 04/29/22 clavulanate 125 mg tablet clonazepam 0.5 mg tablet 0.5 mg PO BID #60 tabs 04/29/22 Allergies Allergy/AdvReac Type Severity Reaction Status Date / Time azithromycin Allergy Intermediate Bloody Verified 04/29/22 15:00 Stools latex Allergy Intermediate Rash Verified 04/29/22 15:00 oxycodone Allergy Intermediate Agitated Verified 04/29/22 15:00 scopolamine Allergy Intermediate Tremors Verified 04/29/22 15:00 Review of Systems Status of ROS: Reports: 10 or more systems reviewed and unremarkable except as noted in History and below [facility] Medical History (Updated 06/04/22 @ 03:55 by Armando Frausto MD) ADHD Anxiety Anxiety and depression Asthma GERD (gastroesophageal reflux disease) Hydrocephalus Hyperlipidemia Hyperthyroidism RODRICK (obstructive sleep apnea) Pseudoseizures Sinus infection Surgical History No significant past surgical history Social History Smoking Status: Never smoker Do you use any of these nicotine containing products: None How often do you have a drink containing alcohol: never How often do you have six or more drinks on one occasion: Never AUDIT-C Alcohol total score: 0 Non-prescribed substance use: denies use service: No Exam Narrative: Exam Narrative: Pleasant. No apparent distress. Interacting calmly with her phone. Skin is warm and dry. Trace lower extremity dependent edema. Well perfused peripherally. Lungs are clear. Heart with mildly elevated rate. In a regular rhythm. Abdomen is overweight soft and tender. Cranial nerves 2 through 12 look to be intact. She is though with right eye lateral deviation. Moving all extremities smoothly without difficulty. Speaking fluidly. Const: Vital Signs, click to edit/add: Vital Signs - 24 hr 06/04/22 00:26 06/04/22 02:30 06/04/22 03:34 Temperature 97.1 F L Pulse Rate [Pulse Oximeter] 90 92 Respiratory Rate 20 Blood Pressure [Ri ght Upper Arm] 132/87 132/72 Pulse Oximetry 92 96 92 Oxygen Delivery Me thod Room Air Room Air Course Vital Signs Vital signs: Initial Vital Signs Temperature 97.1 F L 06/04/22 00:26 Temperature Source Temporal Artery Scan 06/04/22 00:26 Pulse Rate 90 06/04/22 00:26 Blood Pressure 132/87 06/04/22 00:26 Blood Pressure Mean 102 06/04/22 00:26 Blood Pressure Position Sitting 06/04/22 00:26 Pulse Oximetry 92 06/04/22 00:26 Oxygen Delivery Method 06/04/22 00:26 Vital Signs Temperature 97.1 F L 06/04/22 00:26 Pulse Rate 90 06/04/22 00:26 Blood Pressure 132/87 06/04/22 00:26 Pulse Oximetry 92 06/04/22 00:26 Oxygen Delivery Method 06/04/22 00:26 Temperature 97.1 F L 06/04/22 00:26 Pulse Rate 92 06/04/22 03:34 Respiratory Rate 20 06/04/22 03:34 Blood Pressure 132/72 06/04/22 03:34 Pulse Oximetry 92 06/04/22 03:34 Oxygen Delivery Method 06/04/22 03:34 Medical Decision Making MDM Narrative Medical decision making narrative: We did check labs as requested. Monitored during time in emergency department without event. Labs overall reassuring. CRP mildly elevated. Perhaps this indicates some otherwise evolving infectious process. EKG reviewed by me in sinus rhythm see below. Lab Data Lab results reviewed: Yes I reviewed the patient's lab results Labs: Lab Results 06/04/22 06/04/22 06/04/22 Range/Units 02:40 02:40 02:40 WBC 10.05 (4.50-11.00) K/uL RBC 4.36 (4.00-5.20) m/uL Hgb 12.8 (12.0-16.0) gm/dL Hct 39.8 (33.0-51.0) % MCV 91 (80-100) fL MCH 29 (26-34) pg MCHC 32 (32-36) gm/dL RDW Coeff of Tomy 13.2 (11.5-15.5) % Plt Count 271 (140-440) K/uL Neut % (Auto) 70.3 (42.0-72.0) % Lymph % (Auto) 21.0 (20-44) % [place] % (Auto) 5.9 (0.0-11.0) % Eos % (Auto) 2.0 (0.0-7.0) % Baso % (Auto) 0.4 (0.0-3.0) % Neut # (Auto) 7.07 H (1.7-7.0) K/uL Lymph # (Auto) 2.11 (0.90-2.90) K/uL [place] # (Auto) 0.60 (0.00-0.90) K/UL Eos # (Auto) 0.20 (0.00-0.50) K/uL Baso # (Auto) 0.04 (0.00-0.30) K/uL Sodium 141 (135-149) mmol/L Potassium 4.2 (3.6-5.1) mmol/L Chloride 106 (96-114) mmol/L Carbon Dioxide 30 (20-32) mmol/L BUN 13 (5-24) mg/dL Creatinine 0.7 (0.5-1.5) mg/dL Estimated Creat Clear 165.24 Estimated GFR 109 ml/min Glucose 103 (60-115) mg/dL Calcium 9.0 (8.4-10.6) mg/dL Magnesium 1.9 (1.5-2.6) mg/dL Total Bilirubin 0.3 (0.1-1.5) mg/dL Direct Bilirubin 0.3 (0.0-0.5) mg/dL AST 20 (12-35) U/L ALT 20 (4-35) U/L Alkaline Phosphatase 84 (40-150) U/L C-Reactive Protein 2.6 H (0.5-1.0) mg/dL Total Protein 6.6 (6.0-8.3) g/dL Albumin 3.7 (3.3-5.0) g/dL TSH 0.573 (0.270-4.20) uIU/mL ECG Data Attestation: I personally reviewed and interpreted this ECG as follows: (Normal sinus rate of 85. Somewhat low voltage.) Discharge Plan Discharge Clinical Impression: Malaise Patient Disposition: Home, Self-Care Condition: Improved Additional Instructions: Hydrate. Rest. Return for increasing and persistent shortness of breath, new and worsening chest pain. Prescriptions: No Action amoxicillin-pot clavulanate 875-125 mg tablet 1 tab PO BID Qty: 20 0RF clonazepam 0.5 mg tablet 0.5 mg PO BID Qty: 60 0RF montelukast 10 mg tablet 10 mg PO HS Label Comments: TAKE 1 TABLET BY MOUTH EVERYDAY AT BEDTIME Myrbetriq 50 mg tablet extended release 24 hr 50 mg PO Q24H Label Comments: TAKE 1 TABLET BY MOUTH EVERY DAY levothyroxine 200 mcg tablet 200 mcg PO DAILY Label Comments: TAKE 1 TABLET BY MOUTH DAILY. albuterol sulfate 90 mcg/actuation HFA aerosol inhaler 2 puff INHALATION Q4H PRN Label Comments: INHALE 2 PUFFS BY MOUTH EVERY 4 HOURS NEEDED budesonide-formoterol 160-4.5 mcg/actuation HFA aerosol inhaler 2 puff INHALATION Q12H Label Comments: INHALE 2 PUFFS BY MOUTH TWICE DAILY fluticasone propion-salmeterol [Wixela Inhub] 250-50 mcg/dose blister with device 1 inh INHALATION Q12H Label Comments: INHALE 1 PUFF BY MOUTH TWICE A DAY ipratropium-albuterol 0.5 mg-3 mg(2.5 mg base)/3 mL solution for nebulization 3 ml INHALATION Q6H PRN Label Comments: INHALE ONE VIAL VIA NEBULIZER FOUR TIMES DAILY omeprazole 20 mg capsule,delayed release(DR/EC) 40 mg PO QDAY bupropion HCl 150 mg tablet extended release 24 hr 150 mg PO DAILY Qty: 30 0RF Label Comments: TAKE 1 TABLET BY MOUTH DAILY. paroxetine HCl 40 mg tablet 40 mg PO HS Qty: 30 0RF Label Comments: TAKE 1 TABLET BY MOUTH EVERYDAY AT BEDTIME Follow Up/Referrals: Geronimo Lamb MD [Primary Care Provider] - Stand Alone Forms: [employer] Info Instructions
[2022-06-04 03:34] VITALS: BP 132/72; PULSE 92; RESP 20; O2SAT 92
[2022-06-04 04:03] LABS: Thyroid Stimulating Hormone* 0.573 uIU/mL (0.270-4.20)
== END 2022-06-04 04:25 | disposition home or self-care (01) ==
PROVIDERS: Emergency Provider Family Medicine; PCP Family Medicine
DX: R53.81 Other malaise (principal)
CPT/HCPCS: 36415; 80048; 80076; 83735; 84443; 85025; 86140; 93005; 94761; 99283; 99284

== ENCOUNTER 2022-07-16 11:25 | Outpatient (CLI) | payer OTHER, SELFPAY | END 2022-07-16 11:26 | disposition home or self-care (01) | LOC: AMB 07-18 00:14 | PROVIDERS: PCP Family Medicine; Visit Provider Family Medicine | DX: J45.901 Unspecified asthma with (acute) exacerbation (principal) | CPT/HCPCS: A0425; A0427 ==

== ENCOUNTER 2022-07-16 11:52 | Emergency (ER) | payer OTHER, SELFPAY ==
[2022-07-16 12:13] VITALS: BP 114/77; PULSE 81; RESP 20; TEMP 36.6; O2SAT 92; BMI 47.6
--- NOTE | 2022-07-16 12:20 | ED_ITS ---
HPI - General Adult General Time Seen by Provider: 12:21 Date Seen: 07/16/22 Chief complaint: Shortness of Breath/Dyspnea Stated complaint: Asthma Time Seen by Provider: 07/16/22 12:13 Source: patient, EMS and RN notes reviewed Mode of arrival: EMS Limitations: no limitations History of Present Illness HPI narrative: Patient is a 47-year-old female whom called 1 of her care case workers complaining of feeling like she was having difficulty breathing this morning. She states when she woke up she was on her left side. As she is telling me that she rolls to her left side show me her position. she states she felt like she could not move. She then noted that she felt like she was having difficulty breathing. She has been coughing some. She did go to an uncle's yesterday and before that went to a [facility] and [place] on the 06 of July. She has not had any fevers. She feels this may be her asthma. She is not been on any antibiotics or steroids recently per report. I believe that I have seen her in the ED within the last few months for similar symptoms, will review that later. She states she does feel like she feels wheezing an feels like there is difficulty sometimes clearing in her airways, she points to her throat area. She denies any nasal drainage or postnasal drainage or any blowing her nose. On questioning of reflux she does states she has reflux and has been off her omeprazole for about 2-3 weeks. She states she needs a new prescription for this, she is supposedly waiting for the pharmacy to get this refilled for her. She did get a DuoNeb EN route with EMS. Baseline she is on nasal cannula oxygen, has sleep apnea which I believe is untreated. Related Data Home Medications Medication Instructions Recorded Confirmed albuterol sulfate 90 mcg/actuation 2 puff inhalation Q4H PRN 11/30/21 04/29/22 aerosol inhaler budesonide-formoterol HFA 160 2 puff inhalation Q12H 11/30/21 04/29/22 mcg-4.5 mcg/actuation aerosol inhaler fluticasone 250 mcg-salmeterol 50 1 inh inhalation Q12H 11/30/21 04/29/22 mcg/dose blistr powdr for inhalation (Wixela Inhub) ipratropium 0.5 mg-albuterol 3 mg 3 ml inhalation Q6H PRN 11/30/21 04/29/22 (2.5 mg base)/3 mL nebulization soln levothyroxine 200 mcg tablet 200 mcg PO DAILY 11/30/21 04/29/22 mirabegron 50 mg tablet,extended 50 mg PO Q24H 11/30/21 04/29/22 release 24 hr (Myrbetriq) montelukast 10 mg tablet 10 mg PO HS 11/30/21 04/29/22 omeprazole 20 mg capsule,delayed 40 mg PO QDAY 02/26/22 04/29/22 release Previous Rx's Medication Instructions Recorded bupropion HCl 150 mg 24 hr tablet, 150 mg PO DAILY #30 tabs 03/13/22 extended release paroxetine HCl 40 mg tablet 40 mg PO HS #30 tabs 03/13/22 amoxicillin 875 mg-potassium 1 tab PO BID #20 tabs 04/29/22 clavulanate 125 mg tablet clonazepam 0.5 mg tablet 0.5 mg PO BID #60 tabs 04/29/22 omeprazole 40 mg capsule,delayed 40 mg PO DAILY #30 caps 07/16/22 release prednisone 20 mg tablet 20 mg PO BID #6 tabs 07/16/22 Allergies Allergy/AdvReac Type Severity Reaction Status Date / Time azithromycin Allergy Intermediate Bloody Verified 04/29/22 15:00 Stools latex Allergy Intermediate Rash Verified 04/29/22 15:00 oxycodone Allergy Intermediate Agitated Verified 04/29/22 15:00 scopolamine Allergy Intermediate Tremors Verified 04/29/22 15:00 Review of Systems Status of ROS: Reports: 6 or more systems reviewed and unremarkable except as noted in History and below [facility] Medical History ADHD Anxiety Anxiety and depression Asthma GERD (gastroesophageal reflux disease) Hydrocephalus Hyperlipidemia Hyperthyroidism RODRICK (obstructive sleep apnea) Pseudoseizures Sinus infection Surgical History No significant past surgical history Social History Smoking Status: Never smoker Do you use any of these nicotine containing products: None How often do you have a drink containing alcohol: never How often do you have six or more drinks on one occasion: Never AUDIT-C Alcohol total score: 0 Non-prescribed substance use: denies use service: No Exam Const: Vital Signs, click to edit/add: Vital Signs - 24 hr 07/16/22 12:13 Temperature 98 F Pulse Rate [Apical ] 81 Respiratory Rate 20 Blood Pressure [Le ft Upper Arm] 114/77 Pulse Oximetry 92 Oxygen Delivery Me thod Nasal Cannula Oxygen Flow Rate 1 Documenting provider has reviewed patient's vital signs: yes Common normals: no apparent distress, oriented x3, no limitations, healthy appearing and alert General appearance: cooperative, comfortable, well kempt and well developed Other: At the end of the examination, she does point to her throat where she feels this wheezing. Her lungs are indeed clear, she has some upper airway transmission but is able to speak clearly, not hoarse. I do wonder if she has some upper airway secretions. HENMT: Common normals: normocephalic, head/scalp atraumatic, hearing grossly normal bilaterally, external ears normal, external nose normal, nasal mucous membranes and turbinates normal and moist oral mucous membranes Head and scalp: normocephalic and atraumatic Nose: external nose normal and nasal mucous membranes and turbinates normal External ear: external ears normal Eye: Common normals: PERRL, conjunctivae normal and no scleral icterus Conjunctiva: conjunctiva(e) normal Pupil: PERRL Neck & C-Spine: Common normals: full ROM, no lymphadenopathy, supple, no meningeal signs, no JVD and thyroid normal Thyroid: thyroid normal Chest: Common normals: inspection of chest normal and palpation of chest normal Resp: Common normals: normal respiratory effort, no retractions, no use of accessory muscles and clear to auscultation bilaterally Effort & inspection: able to speak in complete sentences Auscultation: clear to auscultation bilaterally Cardio: Common normals: no JVD, regular rate, regular rhythm, S1 normal heart sound, S2 normal heart sound, no gallops, no clicks and no murmurs Rate: regular rate Rhythm: regular rhythm Heart sounds: S1 normal and S2 normal GI: Common normals: Normal to inspection, nondistended, normoactive bowel sounds present, soft to palpation, non-tender, no hepatosplenomegaly and no masses Palpation: soft and no hepatosplenomegaly Other: significant abdominal pannus noted. Extremity: Common normals: no calf tenderness and no pedal edema Neuro: Common normals: oriented x3, moves all extremities and no focal motor deficits Sensorium/orientation: alert Meningeal signs: no meningeal signs Speech: speech normal Psych: Appearance: well kempt Course Course Hospital Course: Patient is currently hemodynamically stable, no evidence of active asthma exacerbation. Will consider infective possibilities that could be causing her symptoms. Reflux certainly could give her this sense. Have discussed with her that I would recommend going back on omeprazole and I will send a month's worth and until she can get this figured out with her primary care team. Will be doing full complement of labs, portable chest x-ray. Will consider thromboembolic disease into a screening D-dimer. She is not tachycardic, no significant hypoxia beyond baseline but the fact that she uses oxygen baseline could confound a diagnosis of pulmonary embolus. Reevaluation(s) Reevaluation #1: Reviewed labs and chest x-ray findings. Patient really feels like there is something going on with her lungs. Did review the thickening of the bronchials. It could be some inflammatory change or bronchitis but this is not infectious. Reviewed that there is no need for antibiotics at this time but would agree to short course of prednisone, she would like this. Time: 15:56 Vital Signs Vital signs: Initial Vital Signs Temperature 98 F 07/16/22 12:13 Temperature Source Temporal Artery Scan 07/16/22 12:13 Pulse Rate 81 07/16/22 12:13 Respiratory Rate 07/16/22 12:13 Blood Pressure 114/77 07/16/22 12:13 Blood Pressure Mean 89 07/16/22 12:13 Pulse Oximetry 92 07/16/22 12:13 Oxygen Delivery Method 07/16/22 12:13 Oxygen Flow Rate 1 07/16/22 12:13 Vital Signs Temperature 98 F 07/16/22 12:13 Pulse Rate 81 07/16/22 12:13 Respiratory Rate 20 07/16/22 12:13 Blood Pressure 114/77 07/16/22 12:13 Pulse Oximetry 92 07/16/22 12:13 Oxygen Delivery Method 07/16/22 12:13 Oxygen Flow Rate 1 07/16/22 12:13 Temperature 98 F 07/16/22 12:13 Pulse Rate 81 07/16/22 12:13 Respiratory Rate 20 07/16/22 12:13 Blood Pressure 114/77 07/16/22 12:13 Pulse Oximetry 92 07/16/22 12:13 Oxygen Delivery Method 07/16/22 12:13 Oxygen Flow Rate 1 07/16/22 12:13 Medical Decision Making Lab Data Lab results reviewed: Yes I reviewed the patient's lab results Labs: Lab Results 07/16/22 07/16/22 07/16/22 Range/Units 12:46 12:46 12:46 WBC 9.59 (4.50-11.00) K/uL RBC 4.72 (4.00-5.20) m/uL Hgb 13.8 (12.0-16.0) gm/dL Hct 42.4 (33.0-51.0) % MCV 90 (80-100) fL MCH 29 (26-34) pg MCHC 33 (32-36) gm/dL RDW Coeff of Tomy 13.2 (11.5-15.5) % Plt Count 252 (140-440) K/uL Neut % (Auto) 72.5 H (42.0-72.0) % Lymph % (Auto) 19.2 L (20-44) % [place] % (Auto) 5.5 (0.0-11.0) % Eos % (Auto) 1.8 (0.0-7.0) % Baso % (Auto) 0.4 (0.0-3.0) % Neut # (Auto) 7.00 (1.7-7.0) K/uL Lymph # (Auto) 1.80 (0.90-2.90) K/uL [place] # (Auto) 0.50 (0.00-0.90) K/UL Eos # (Auto) 0.17 (0.00-0.50) K/uL Baso # (Auto) 0.04 (0.00-0.30) K/uL D-Dimer Quant (PE/DVT) 0.27 (0.00-0.50) ug/ml Sodium 141 (135-149) mmol/L Potassium 3.7 (3.6-5.1) mmol/L Chloride 104 (96-114) mmol/L Carbon Dioxide 33 H (20-32) mmol/L BUN 9 (5-24) mg/dL Creatinine 0.6 (0.5-1.5) mg/dL Estimated Creat Clear 186.53 Estimated GFR 113 ml/min Glucose 104 (60-115) mg/dL Calcium 8.9 (8.4-10.6) mg/dL Troponin I < 0.01 L (0.01-0.04) ng/mL C-Reactive Protein 2.6 H (0.5-1.0) mg/dL NT-Pro-B Natriuret Pep 216 pg/mL Procalcitonin 0.05 (<0.50) ng/mL SARS-CoV-2 (PCR) (Negative) Influenza Type A (PCR) (Negative) Influenza Type B (PCR) (Negative) RSV (PCR) (Negative) 07/16/22 Range/Units 13:18 WBC (4.50-11.00) K/uL RBC (4.00-5.20) m/uL Hgb (12.0-16.0) gm/dL Hct (33.0-51.0) % MCV (80-100) fL MCH (26-34) pg MCHC (32-36) gm/dL RDW Coeff of Tomy (11.5-15.5) % Plt Count (140-440) K/uL Neut % (Auto) (42.0-72.0) % Lymph % (Auto) (20-44) % [place] % (Auto) (0.0-11.0) % Eos % (Auto) (0.0-7.0) % Baso % (Auto) (0.0-3.0) % Neut # (Auto) (1.7-7.0) K/uL Lymph # (Auto) (0.90-2.90) K/uL [place] # (Auto) (0.00-0.90) K/UL Eos # (Auto) (0.00-0.50) K/uL Baso # (Auto) (0.00-0.30) K/uL D-Dimer Quant (PE/DVT) (0.00-0.50) ug/ml Sodium (135-149) mmol/L Potassium (3.6-5.1) mmol/L Chloride (96-114) mmol/L Carbon Dioxide (20-32) mmol/L BUN (5-24) mg/dL Creatinine (0.5-1.5) mg/dL Estimated Creat Clear Estimated GFR ml/min Glucose (60-115) mg/dL Calcium (8.4-10.6) mg/dL Troponin I (0.01-0.04) ng/mL C-Reactive Protein (0.5-1.0) mg/dL NT-Pro-B Natriuret Pep pg/mL Procalcitonin (<0.50) ng/mL SARS-CoV-2 (PCR) Negative SARS-CoV-2 (Negative) Influenza Type A (PCR) Negative PCR FLU A (Negative) Influenza Type B (PCR) Negative PCR FLU B (Negative) RSV (PCR) Negative PCR RSV (Negative) Imaging Data Chest x-ray: Attestation: I have reviewed the pertinent imaging results. My impression: I see no acute infiltrate, no evidence of pneumonia on my preliminary review. Radiologist's impression: Patient: TASHIA HAZEL Facility: [facility] Site . Site : [id number] Study: XRay Chest 1 VIEW PORTABLE-07/16/2022 1:02:11 PM Ordering Physician: Angela Morales Final Report: Indication: Asthma, shortness of breath Comparison: Two-view chest April 11, 2022 Technique: Single AP view chest Findings: There is hyperinflation and chronic interstitial change. There is mild central bronchial thickening. There is no dense consolidation, effusion or pneumothorax. Cardiac silhouette is mildly prominent. The bony thorax is grossly intact. Impression: Mild central bronchial thickening without dense consolidation. Dictated by Jamal Jeong MD @ 07/16/2022 1:48:00 PM (Electronic Signature) ECG Data Attestation: I personally reviewed and interpreted this ECG as follows: ( Normal sinus rhythm, 77 beats per minute. Flattened T-waves and some low- voltage QRS complexes. No acute ischemia appreciated. QT corrected 459 milliseconds.) Prior ECG tracings: available for review ( Compared to 06/04/2022, no significant change.) Critical Care Time Critical Care Time Critical Care Time: No Discharge Plan Discharge Clinical Impression: Shortness of breath, Chronic GERD, Asthma Patient Disposition: Home, Self-Care Condition: Stable Instructions: GERD (Gastroesophageal Reflux Disease) (ED) Additional Instructions: Get scheduled for a follow-up visit as soon as you can. Restart the omeprazole and get further refills from your primary provider. Need to stay on current asthma medications. Try prednisone and see if that helps with breathing. If you are worsening, develop increasing cough/difficulty breathing, fever, need to be re-evaluated. Activity Level: Activity as Tolerated Prescriptions: New prednisone 20 mg tablet 20 mg PO BID Qty: 6 0RF omeprazole 40 mg capsule,delayed release(DR/EC) 40 mg PO DAILY Qty: 30 0RF No Action amoxicillin-pot clavulanate 875-125 mg tablet 1 tab PO BID Qty: 20 0RF clonazepam 0.5 mg tablet 0.5 mg PO BID Qty: 60 0RF montelukast 10 mg tablet 10 mg PO HS Label Comments: TAKE 1 TABLET BY MOUTH EVERYDAY AT BEDTIME Myrbetriq 50 mg tablet extended release 24 hr 50 mg PO Q24H Label Comments: TAKE 1 TABLET BY MOUTH EVERY DAY levothyroxine 200 mcg tablet 200 mcg PO DAILY Label Comments: TAKE 1 TABLET BY MOUTH DAILY. albuterol sulfate 90 mcg/actuation HFA aerosol inhaler 2 puff INHALATION Q4H PRN Label Comments: INHALE 2 PUFFS BY MOUTH EVERY 4 HOURS NEEDED budesonide-formoterol 160-4.5 mcg/actuation HFA aerosol inhaler 2 puff INHALATION Q12H Label Comments: INHALE 2 PUFFS BY MOUTH TWICE DAILY fluticasone propion-salmeterol [Wixela Inhub] 250-50 mcg/dose blister with device 1 inh INHALATION Q12H Label Comments: INHALE 1 PUFF BY MOUTH TWICE A DAY ipratropium-albuterol 0.5 mg-3 mg(2.5 mg base)/3 mL solution for nebulization 3 ml INHALATION Q6H PRN Label Comments: INHALE ONE VIAL VIA NEBULIZER FOUR TIMES DAILY omeprazole 20 mg capsule,delayed release(DR/EC) 40 mg PO QDAY bupropion HCl 150 mg tablet extended release 24 hr 150 mg PO DAILY Qty: 30 0RF Label Comments: TAKE 1 TABLET BY MOUTH DAILY. paroxetine HCl 40 mg tablet 40 mg PO HS Qty: 30 0RF Label Comments: TAKE 1 TABLET BY MOUTH EVERYDAY AT BEDTIME Follow Up/Referrals: Geronimo Lamb MD [Primary Care Provider] - Stand Alone Forms: Recommendoth Info Instructions
[2022-07-16 12:28] VITALS: O2SAT 93
--- NOTE | 2022-07-16 12:29 | CRLHL7_ITS ---
For Patients: As a result of the Century Cures Act, medical imaging exams and procedure reports are released immediately into your electronic medical record. You may view this report before your referring provider. If you have questions, please contact your health care provider. Indication: Asthma, shortness of breath Comparison: Two-view chest April 11, 2022 Technique: Single AP view chest Findings: There is hyperinflation and chronic interstitial change. There is mild central bronchial thickening. There is no dense consolidation, effusion or pneumothorax. Cardiac silhouette is mildly prominent. The bony thorax is grossly intact. Impression: Mild central bronchial thickening without dense consolidation. Dictated by Jamal Jeong MD @ 07/16/2022 1:48:00 PM (Electronically Signed)
[2022-07-16 12:40] VITALS: O2SAT 93
[2022-07-16 13:07] LABS: Basophils Absolute Auto 0.04 K/uL (0.00-0.30); Basophils Percent Auto 0.4 % (0.0-3.0); Eosinophils Absolute Auto 0.17 K/uL (0.00-0.50); Eosinophils Percent Auto 1.8 % (0.0-7.0); Hematocrit 42.4 % (33.0-51.0); Hemoglobin* 13.8 gm/dL (12.0-16.0); Immature Granulocytes Abs Auto 0.06 K/uL (0.00-0.30); Immature Granulocytes Pct Auto 0.6 %; Lymphocytes Percent Auto 19.2 % (20-44); Mean Corpuscular HGB Conc 33 gm/dL (32-36); Mean Corpuscular Hemoglobin 29 pg (26-34); Mean Corpuscular Volume 90 fL (80-100); Monocytes Percent Auto 5.5 % (0.0-11.0); Neutrophils Percent Auto 72.5 % (42.0-72.0); Platelet Count* 252 K/uL (140-440); RDW Coefficient of Variation % 13.2 % (11.5-15.5); Red Blood Count 4.72 m/uL (4.00-5.20); White Blood Count* 9.59 K/uL (4.50-11.00)
[2022-07-16 13:11] LABS: Slide Review Reflex No
[2022-07-16 13:21] LABS: Chloride* 104 mmol/L (96-114); Potassium* 3.7 mmol/L (3.6-5.1); Sodium* 141 mmol/L (135-149)
[2022-07-16 13:24] LABS: Carbon Dioxide* 33 mmol/L (20-32); Creatinine* 0.6 mg/dL (0.5-1.5); Est. Creatinine Clearance* 186.53; Estimated Glomerular Filt Rate 113 ml/min
[2022-07-16 13:25] LABS: Blood Urea Nitrogen* 9 mg/dL (5-24); Calcium* 8.9 mg/dL (8.4-10.6); Glucose* 104 mg/dL (60-115)
[2022-07-16 13:27] LABS: C Reactive Protein* 2.6 mg/dL (0.5-1.0); D Dimer Quantitative* 0.27 ug/ml (0.00-0.50)
[2022-07-16 13:41] LABS: Procalcitonin* 0.05 ng/mL (<0.50)
[2022-07-16 13:42] LABS: NT Pro B Type NatriureticPept* 216 pg/mL; Troponin I* < 0.01 ng/mL (0.01-0.04)
[2022-07-16 14:02] LABS: PCR FLU A Negative PCR FLU A (Negative); PCR FLU B Negative PCR FLU B (Negative); PCR RSV Negative PCR RSV (Negative)
[2022-07-16 14:05] LABS: SARS PCR* Negative SARS-CoV-2 (Negative)
[2022-07-16 16:13] VITALS: BP 125/72; PULSE 81; RESP 20; O2SAT 95
== END 2022-07-16 16:29 | disposition home or self-care (01) ==
PROVIDERS: Emergency Provider Family Medicine; PCP Family Medicine
DX: K21.9 Gastro-esophageal reflux disease without esophagitis (principal); J45.909 Unspecified asthma, uncomplicated
CPT/HCPCS: 36415; 71045; 80048; 83880; 84145; 84484; 85025; 85379; 86140; 87502; 87634; 87635; 93005; 94761; 99284

== ENCOUNTER 2022-09-13 01:31 | Outpatient (CLI) | payer OTHER, SELFPAY | END 2022-09-13 01:32 | disposition home or self-care (01) | PROVIDERS: PCP Family Medicine; Visit Provider Family Medicine | DX: R11.2 Nausea with vomiting, unspecified (principal) | CPT/HCPCS: A0425; A0427 ==

== ENCOUNTER 2022-09-13 02:03 | Emergency (ER) | payer OTHER, SELFPAY ==
[2022-09-13 02:06] VITALS: BP 121/71; PULSE 102; RESP 18; TEMP 36.4; O2SAT 92; BMI 46.5
[2022-09-13 02:26] VITALS: O2SAT 96
[2022-09-13] MEDS: PROMETHAZINE 25 MG TABLET PO (02:33)
[2022-09-13 02:42] VITALS: PULSE 97; O2SAT 96
--- NOTE | 2022-09-13 03:06 | ED.NURSE ---
Patient sleeping. No vomiting noted.
--- NOTE | 2022-09-13 03:42 | ED.NURSE ---
Tolerating water. Patient reports no nausea or abdominal pain.
--- NOTE | 2022-09-13 03:58 | ED.GENADULT ---
HPI - General Adult General Date Seen: 09/13/22 Chief complaint: Nausea/Vomiting Stated complaint: Nausea Time Seen by Provider: 09/13/22 02:04 Source: patient Mode of arrival: EMS Limitations: no limitations History of Present Illness HPI narrative: Patient is a 47-year-old female who ate a couple of chicken salad sandwich is and drank a soda before lying down. She had to get up and vomit suddenly. She has vomited a few times and now has some epigastric pain. No hematemesis. No fevers or chills. She called the ambulance because she was concerned that she might aspirate. She does have an anxiety disorder. She received Zofran in route and is not thrown up since. She did have one episode of dry heaving in the ER. Related Data Home Medications Medication Instructions Recorded Confirmed albuterol sulfate 90 mcg/actuation 2 puff inhalation Q4H PRN 11/30/21 04/29/22 aerosol inhaler budesonide-formoterol HFA 160 2 puff inhalation Q12H 11/30/21 04/29/22 mcg-4.5 mcg/actuation aerosol inhaler fluticasone 250 mcg-salmeterol 50 1 inh inhalation Q12H 11/30/21 04/29/22 mcg/dose blistr powdr for inhalation (Wixela Inhub) ipratropium 0.5 mg-albuterol 3 mg 3 ml inhalation Q6H PRN 11/30/21 04/29/22 (2.5 mg base)/3 mL nebulization soln levothyroxine 200 mcg tablet 200 mcg PO DAILY 11/30/21 04/29/22 mirabegron 50 mg tablet,extended 50 mg PO Q24H 11/30/21 04/29/22 release 24 hr (Myrbetriq) montelukast 10 mg tablet 10 mg PO HS 11/30/21 04/29/22 omeprazole 20 mg capsule,delayed 40 mg PO QDAY 02/26/22 04/29/22 release Previous Rx's Medication Instructions Recorded bupropion HCl 150 mg 24 hr tablet, 150 mg PO DAILY #30 tabs 03/13/22 extended release paroxetine HCl 40 mg tablet 40 mg PO HS #30 tabs 03/13/22 amoxicillin 875 mg-potassium 1 tab PO BID #20 tabs 04/29/22 clavulanate 125 mg tablet clonazepam 0.5 mg tablet 0.5 mg PO BID #60 tabs 04/29/22 omeprazole 40 mg capsule,delayed 40 mg PO DAILY #30 caps 07/16/22 release prednisone 20 mg tablet 20 mg PO BID #6 tabs 07/16/22 Allergies Allergy/AdvReac Type Severity Reaction Status Date / Time azithromycin Allergy Intermediate Bloody Verified 04/29/22 15:00 Stools latex Allergy Intermediate Rash Verified 04/29/22 15:00 oxycodone Allergy Intermediate Agitated Verified 04/29/22 15:00 scopolamine Allergy Intermediate Tremors Verified 04/29/22 15:00 acetaminophen [From Percocet] AdvReac Confusion Verified 09/13/22 02:06 Review of Systems Narrative: She has some chronic shortness of breath issues and anxiety. Review of systems is as noted above otherwise negative. [facility] Medical History ADHD Anxiety Anxiety and depression Asthma GERD (gastroesophageal reflux disease) Hydrocephalus Hyperlipidemia Hyperthyroidism RODRICK (obstructive sleep apnea) Pseudoseizures Sinus infection Surgical History No significant past surgical history Social History Smoking Status: Never smoker Do you use any of these nicotine containing products: None Second hand tobacco smoke exposure: No How often do you have a drink containing alcohol: never How often do you have six or more drinks on one occasion: Never AUDIT-C Alcohol total score: 0 Non-prescribed substance use: denies use service: No Exam Narrative: Exam Narrative: Vitals noted. HEENT: Conjunctiva clear. Neck is supple without adenopathy, thyromegaly, carotid bruit. Lungs: Clear to auscultation in all [place]. No wheezes, rales, rhonchi. Heart: Regular rate and rhythm without murmur. Abdomen: Obese, Soft and nontender. No guarding, rigidity, rebound. Bowel sounds are normal. No palpable masses. Extremities: No cyanosis or edema. Good distal pulses. Skin: No abnormalities noted of the exposed skin. Neurologic: Awake, alert, fully oriented. Neurologic exam is nonfocal. Const: Vital Signs, click to edit/add: Vital Signs - 24 hr 09/13/22 02:06 09/13/22 02:06 09/13/22 02:26 Temperature 97.5 F L Pulse Rate [Pulse Oximeter] 102 H Respiratory Rate 18 Blood Pressure [Ri ght Upper Arm] 121/71 Pulse Oximetry 92 96 Oxygen Delivery Me thod Nasal Cannula Oxygen Flow Rate 2 09/13/22 02:26 09/13/22 02:42 09/13/22 04:14 Temperature Pulse Rate [Pulse Oximeter] 97 90 Respiratory Rate 16 Blood Pressure [Ri ght Upper Arm] 132/79 Pulse Oximetry 96 96 96 Oxygen Delivery Me thod Nasal Cannula Nasal Cannula Nasal Cannula Oxygen Flow Rate 2 2 Course Course Hospital Course: Patient was seen and examined. She appears well. She was given a dose of Phenergan 25 mg orally. She was able to rest comfortably. She was observed for about 2 hours with no further vomiting. No diagnostic tests were indicated. Vital Signs Vital signs: Initial Vital Signs Temperature 97.5 F L 09/13/22 02:06 Temperature Source Temporal Artery Scan 09/13/22 02:06 Pulse Rate 102 H 09/13/22 02:06 Respiratory Rate 18 09/13/22 02:06 Respiratory Effort Normal, Spontaneous, Non-Labored 09/13/22 02:06 Respiratory Depth Normal 09/13/22 02:06 Blood Pressure 121/71 09/13/22 02:06 Blood Pressure Mean 87 09/13/22 02:06 Pulse Oximetry 92 09/13/22 02:06 Oxygen Delivery Method Nasal Cannula 09/13/22 02:06 Oxygen Flow Rate 2 09/13/22 02:06 Vital Signs Temperature 97.5 F L 09/13/22 02:06 Pulse Rate 102 H 09/13/22 02:06 Respiratory Rate 18 09/13/22 02:06 Blood Pressure 121/71 09/13/22 02:06 Pulse Oximetry 92 09/13/22 02:06 Oxygen Delivery Method Nasal Cannula 09/13/22 02:06 Oxygen Flow Rate 2 09/13/22 02:06 Temperature 97.5 F L 09/13/22 02:06 Pulse Rate 90 09/13/22 04:14 Respiratory Rate 16 09/13/22 04:14 Blood Pressure 132/79 09/13/22 04:14 Pulse Oximetry 96 09/13/22 04:14 Oxygen Delivery Method Nasal Cannula 09/13/22 04:14 Oxygen Flow Rate 2 09/13/22 04:14 Discharge Plan Discharge Clinical Impression: Vomiting Patient Disposition: Home, Self-Care Condition: Improved Instructions: Acute Nausea and Vomiting (ED) Additional Instructions: Push fluids, bland diet, don't eat within an hour of lying down. Continue current meds. Follow up in the clinic if vomiting persists. Prescriptions: No Action amoxicillin-pot clavulanate 875-125 mg tablet 1 tab PO BID Qty: 20 0RF clonazepam 0.5 mg tablet 0.5 mg PO BID Qty: 60 0RF montelukast 10 mg tablet 10 mg PO HS Patient Comments: TAKE 1 TABLET BY MOUTH EVERYDAY AT BEDTIME Myrbetriq 50 mg tablet extended release 24 hr 50 mg PO Q24H Patient Comments: TAKE 1 TABLET BY MOUTH EVERY DAY levothyroxine 200 mcg tablet 200 mcg PO DAILY Patient Comments: TAKE 1 TABLET BY MOUTH DAILY. albuterol sulfate 90 mcg/actuation HFA aerosol inhaler 2 puff INHALATION Q4H PRN Patient Comments: INHALE 2 PUFFS BY MOUTH EVERY 4 HOURS NEEDED budesonide-formoterol 160-4.5 mcg/actuation HFA aerosol inhaler 2 puff INHALATION Q12H Patient Comments: INHALE 2 PUFFS BY MOUTH TWICE DAILY fluticasone propion-salmeterol [Wixela Inhub] 250-50 mcg/dose blister with device 1 inh INHALATION Q12H Patient Comments: INHALE 1 PUFF BY MOUTH TWICE A DAY ipratropium-albuterol 0.5 mg-3 mg(2.5 mg base)/3 mL solution for nebulization 3 ml INHALATION Q6H PRN Patient Comments: INHALE ONE VIAL VIA NEBULIZER FOUR TIMES DAILY prednisone 20 mg tablet 20 mg PO BID Qty: 6 0RF omeprazole 40 mg capsule,delayed release(DR/EC) 40 mg PO DAILY Qty: 30 0RF omeprazole 20 mg capsule,delayed release(DR/EC) 40 mg PO QDAY bupropion HCl 150 mg tablet extended release 24 hr 150 mg PO DAILY Qty: 30 0RF Patient Comments: TAKE 1 TABLET BY MOUTH DAILY. paroxetine HCl 40 mg tablet 40 mg PO HS Qty: 30 0RF Patient Comments: TAKE 1 TABLET BY MOUTH EVERYDAY AT BEDTIME Follow Up/Referrals: Geronimo Lamb MD [Primary Care Provider] - Stand Alone Forms: [employer] Info Instructions
[2022-09-13 04:14] VITALS: BP 132/79; PULSE 90; RESP 16; O2SAT 96
== END 2022-09-13 04:33 | disposition home or self-care (01) ==
PROVIDERS: Emergency Provider Family Medicine; PCP Family Medicine
DX: R11.2 Nausea with vomiting, unspecified (principal)
CPT/HCPCS: 94761; 99281; 99282; 99283; A9270

== ENCOUNTER 2022-11-06 16:14 | Emergency (ER) | payer OTHER, SELFPAY ==
[2022-11-06 16:21] VITALS: BP 152/83; PULSE 96; RESP 20; TEMP 36.2; O2SAT 90; BMI 46.5
--- NOTE | 2022-11-06 16:25 | ED.GENADULT ---
HPI - General Adult General Chief complaint: Seizure Stated complaint: Multiple Seizures a day Time Seen by Provider: 11/06/22 16:17 History of Present Illness HPI narrative: has hx of seizure disorder. states that she was placed on Keppra and taken off Wellbutrin this spring per dr Lamb. had had not had much for seizure activity after that was done until Friday when she started to have shaking full body type seizure. lasting 20 seconds. has had ~9 seizures since Friday, 4 yesterday. called [facility] triage and was told to come here. reports that her aunt drove her here and will give her a ride back home. lives alone and lives independently, does have some services- home care nurse and cleaning. Last seizure was last night at 1999 while in the bathtub. had a low temp yetrday due to feeling that she was shivering-96.4 . is eating and drinking ok. 47-year-old woman presenting to the emergency department with concern of increasing seizure activity over the last 5 days. She has some videos to document prior seizure activity showing alert shaking episode lasting less than 30 seconds. These occurred back to back in a taco cobb. I viewed these images now. 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 Was taken off of Wellbutrin and changed to Keppra. No medication adjustments otherwise have been made. No fever cough or cold symptoms. Does have a scratchy throat and thinks might have some allergies. No rashes. I note her right forearm to be somewhat scratched up and she endorses her CT doing this. No dysuria frequency urgency. Does need to use the restroom however. Was shivering yesterday noted in the lower temp. She has had 9 episodes of these full body shaking over the last 5 days. Is again alert during these episodes. Leaves her rather tired but does not describe a postictal state otherwise. Reports that evaluation with Neurology has not endorsed actual seizure diagnosis. Does have history of hydrocephalus. She is not having headaches or new visual changes. Related Data Home Medications Medication Instructions Recorded Confirmed albuterol sulfate 90 mcg/actuation 2 puff inhalation Q4H PRN 11/30/21 04/29/22 aerosol inhaler budesonide-formoterol HFA 160 2 puff inhalation Q12H 11/30/21 04/29/22 mcg-4.5 mcg/actuation aerosol inhaler fluticasone 250 mcg-salmeterol 50 1 inh inhalation Q12H 11/30/21 04/29/22 mcg/dose blistr powdr for inhalation (Wixela Inhub) ipratropium 0.5 mg-albuterol 3 mg 3 ml inhalation Q6H PRN 11/30/21 04/29/22 (2.5 mg base)/3 mL nebulization soln levothyroxine 200 mcg tablet 200 mcg PO DAILY 11/30/21 04/29/22 mirabegron 50 mg tablet,extended 50 mg PO Q24H 11/30/21 04/29/22 release 24 hr (Myrbetriq) montelukast 10 mg tablet 10 mg PO HS 11/30/21 04/29/22 omeprazole 20 mg capsule,delayed 40 mg PO QDAY 02/26/22 04/29/22 release Previous Rx's Medication Instructions Recorded bupropion HCl 150 mg 24 hr tablet, 150 mg PO DAILY #30 tabs 03/13/22 extended release paroxetine HCl 40 mg tablet 40 mg PO HS #30 tabs 03/13/22 amoxicillin 875 mg-potassium 1 tab PO BID #20 tabs 04/29/22 clavulanate 125 mg tablet clonazepam 0.5 mg tablet 0.5 mg PO BID #60 tabs 04/29/22 omeprazole 40 mg capsule,delayed 40 mg PO DAILY #30 caps 07/16/22 release prednisone 20 mg tablet 20 mg PO BID #6 tabs 07/16/22 Allergies Allergy/AdvReac Type Severity Reaction Status Date / Time azithromycin Allergy Intermediate Bloody Verified 04/29/22 15:00 Stools latex Allergy Intermediate Rash Verified 04/29/22 15:00 oxycodone Allergy Intermediate Agitated Verified 04/29/22 15:00 scopolamine Allergy Intermediate Tremors Verified 04/29/22 15:00 acetaminophen [From Percocet] AdvReac Confusion Verified 09/13/22 02:06 Review of Systems Status of ROS: Reports: 6 or more systems reviewed and unremarkable except as noted in History and below [facility] Medical History 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 - Unspecified convulsions (ICD-10) Anxiety ?F41.9 - Anxiety disorder, unspecified (ICD-10) Sinus infection ?J32.9 - Chronic sinusitis, unspecified (ICD-10) RODRICK (obstructive sleep apnea) ?G47.33 - Obstructive sleep apnea (adult) (pediatric) (ICD-10) ADHD ?F90.9 - Attention-deficit hyperactivity disorder, unspecified type (ICD-10) GERD (gastroesophageal reflux disease) ?K21.9 - Gastro-esophageal reflux disease without esophagitis (ICD-10) Hyperthyroidism ?E05.90 - Thyrotoxicosis, unspecified without thyrotoxic crisis or storm (ICD-10) Hydrocephalus ?G91.9 - Hydrocephalus, unspecified (ICD-10) Hyperlipidemia ?E78.5 - Hyperlipidemia, unspecified (ICD-10) Anxiety and depression ?F41.9 - Anxiety disorder, unspecified (ICD-10) ?F32.A - Depression, unspecified (ICD-10) Asthma ?J45.909 - Unspecified asthma, uncomplicated (ICD-10) Surgical History No significant past surgical history Social History Smoking Status: Never smoker Do you use any of these nicotine containing products: None Second hand tobacco smoke exposure: No How often do you have a drink containing alcohol: never How often do you have six or more drinks on one occasion: Never AUDIT-C Alcohol total score: 0 Non-prescribed substance use: denies use service: No Exam Narrative: Exam Narrative: Pleasant. Of good energy. NAD. Breathing easily. Skin is warm and dry without lower extremity edema. She is well-perfused. There is some excoriations on right forearm as noted above. Lungs are clear. Heart in a mildly elevated rate but regular rhythm. Abdomen is overweight soft nontender. Right eye deviates laterally this is not new. Extraocular movements otherwise appear to be intact. Moving extremities fluidly and without apparent difficulty. Const: Vital Signs, click to edit/add: Vital Signs - 24 hr 11/06/22 16:21 Temperature 97.2 F L Pulse Rate [Pulse Oximeter] 96 Respiratory Rate 20 Blood Pressure [Ri ght Forearm] 152/83 H Pulse Oximetry 90 Oxygen Delivery Me thod Room Air Documenting provider has reviewed patient's vital signs: yes Course Vital Signs Vital signs: Initial Vital Signs Respiratory Effort Normal, Spontaneous, Non-Labored 11/06/22 16:20 Respiratory Depth Normal 11/06/22 16:20 Vital Signs Temperature 97.2 F L 11/06/22 16:21 Pulse Rate 96 11/06/22 16:21 Respiratory Rate 20 11/06/22 16:21 Blood Pressure 152/83 H 11/06/22 16:21 Pulse Oximetry 90 11/06/22 16:21 Oxygen Delivery Method Room Air 11/06/22 16:21 Temperature 97.2 F L 11/06/22 16:21 Pulse Rate 96 11/06/22 16:21 Respiratory Rate 20 11/06/22 16:21 Blood Pressure 152/83 H 11/06/22 16:21 Pulse Oximetry 90 11/06/22 16:21 Oxygen Delivery Method Room Air 11/06/22 16:21 Medical Decision Making MDM Narrative Medical decision making narrative: Unclear diagnosis of seizures per what I can piece together. The video presented to me is a total body shaking that begins and recruits and then is self-limited with full awareness. She appears to be talking on the phone through this video and then passes phone off. Think it is reasonable to check labs. Will check level of Keppra though of unclear utility given what I see in video. I ask about other stressors in life. Around this time 6 years ago her mother ; Paloma discusses this at length. This is foremost in her mind. Been some other significant losses at this time of year in the past. I suspect more of a pseudo-seizure for lack of better terminology or other unclear shaking events as demonstrated in video. Increased stressors might be contributing to frequency. IV fluids given. Labs are reassuring though TSH quite low nearly undetectable. Keppra level still pending as is a sendout. Discussed with [facility] on-call. Perhaps there is some mixed seizure-like activity and might benefit from Keppra. At this point would increase dosing to 750 mg b.i.d. from 500 mg b.i.d. Would like to see in Neurology follow-up. Hyperthyroid could certainly be contributing as well Needs further assessment of thyroid. Reports taking levothyroxine regularly. See patient discharge plan Lab Data Lab results reviewed: Yes I reviewed the patient's lab results Labs: Lab Results 11/06/22 11/06/22 Range/Units 16:56 17:35 WBC 8.46 (4.50-11.00) K/uL RBC 4.72 (4.00-5.20) m/uL Hgb 13.6 (12.0-16.0) gm/dL Hct 41.9 (33.0-51.0) % MCV 89 (80-100) fL MCH 29 (26-34) pg MCHC 33 (32-36) gm/dL RDW Coeff of Tomy 13.0 (11.5-15.5) % Plt Count 210 (140-440) K/uL Neut % (Auto) 72.4 H (42.0-72.0) % Lymph % (Auto) 19.3 L (20-44) % [place] % (Auto) 5.4 (0.0-11.0) % Eos % (Auto) 1.9 (0.0-7.0) % Baso % (Auto) 0.5 (0.0-3.0) % Neut # (Auto) 6.10 (1.7-7.0) K/uL Lymph # (Auto) 1.60 (0.90-2.90) K/uL [place] # (Auto) 0.50 (0.00-0.90) K/UL Eos # (Auto) 0.16 (0.00-0.50) K/uL Baso # (Auto) 0.04 (0.00-0.30) K/uL Sodium 139 (135-149) mmol/L Potassium 3.8 (3.6-5.1) mmol/L Chloride 103 (96-114) mmol/L Carbon Dioxide 30 (20-32) mmol/L BUN 8 (5-24) mg/dL Creatinine 0.7 (0.5-1.5) mg/dL Estimated Creat Clear 156.25 Estimated GFR 109 ml/min Glucose 97 (60-115) mg/dL Calcium 9.3 (8.4-10.6) mg/dL Magnesium 1.7 (1.5-2.6) mg/dL Total Bilirubin 0.3 (0.1-1.5) mg/dL Direct Bilirubin 0.2 (0.0-0.5) mg/dL AST 31 (12-35) U/L ALT 35 (4-35) U/L Alkaline Phosphatase 74 (40-150) U/L C-Reactive Protein 0.9 (0.5-1.0) mg/dL Total Protein 6.7 (6.0-8.3) g/dL Albumin 3.8 (3.3-5.0) g/dL TSH < 0.015 L (0.270-4.20) uIU/mL Urine Color Yellow (Yellow) Urine Appearance Clear (Clear) Urine pH 6.5 (5.0-8.5) Ur Specific [place] 1.010 (1.000-1.030) Urine Protein Negative (Negative) Urine Glucose (UA) Negative (Negative) Urine Ketones Negative (Negative) Urine Blood Negative (Negative) Urine Nitrite Negative (Negative) Urine Bilirubin Negative (Negative) Urine Urobilinogen 0.2 (0.2-1.0) Ur Leukocyte Esterase Trace A (Negative) Urine RBC 0-2 (0-2) Urine WBC 0-2 (0-5) Ur Squamous Epith Cells Few (None-Few) Urine Bacteria None (None) Discharge Plan Discharge Clinical Impression: Seizure-like activity, Other social stressor, Hyperthyroidism, Low TSH level Patient Disposition: Home w/ Parent or Adult Condition: Stable Additional Instructions: I did speak with the on-call provider for [facility] today. Recommendations are at this time to increase your Keppra to 750 mg twice a day. That would be 1 and half tablets of what you have (500 mg) 2 times daily. Please check in with Dr. Lamb/primary care. Would note also that your thyroid stimulating hormone was suppressed, meaning that you might be getting too much thyroid hormone. This needs to be evaluated further. Prescriptions: No Action amoxicillin-pot clavulanate 875-125 mg tablet 1 tab PO BID Qty: 20 0RF clonazepam 0.5 mg tablet 0.5 mg PO BID Qty: 60 0RF montelukast 10 mg tablet 10 mg PO HS Patient Comments: TAKE 1 TABLET BY MOUTH EVERYDAY AT BEDTIME Myrbetriq 50 mg tablet extended release 24 hr 50 mg PO Q24H Patient Comments: TAKE 1 TABLET BY MOUTH EVERY DAY levothyroxine 200 mcg tablet 200 mcg PO DAILY Patient Comments: TAKE 1 TABLET BY MOUTH DAILY. albuterol sulfate 90 mcg/actuation HFA aerosol inhaler 2 puff INHALATION Q4H PRN Patient Comments: INHALE 2 PUFFS BY MOUTH EVERY 4 HOURS NEEDED budesonide-formoterol 160-4.5 mcg/actuation HFA aerosol inhaler 2 puff INHALATION Q12H Patient Comments: INHALE 2 PUFFS BY MOUTH TWICE DAILY fluticasone propion-salmeterol [Wixela Inhub] 250-50 mcg/dose blister with device 1 inh INHALATION Q12H Patient Comments: INHALE 1 PUFF BY MOUTH TWICE A DAY ipratropium-albuterol 0.5 mg-3 mg(2.5 mg base)/3 mL solution for nebulization 3 ml INHALATION Q6H PRN Patient Comments: INHALE ONE VIAL VIA NEBULIZER FOUR TIMES DAILY prednisone 20 mg tablet 20 mg PO BID Qty: 6 0RF omeprazole 40 mg capsule,delayed release(DR/EC) 40 mg PO DAILY Qty: 30 0RF omeprazole 20 mg capsule,delayed release(DR/EC) 40 mg PO QDAY bupropion HCl 150 mg tablet extended release 24 hr 150 mg PO DAILY Qty: 30 0RF Patient Comments: TAKE 1 TABLET BY MOUTH DAILY. paroxetine HCl 40 mg tablet 40 mg PO HS Qty: 30 0RF Patient Comments: TAKE 1 TABLET BY MOUTH EVERYDAY AT BEDTIME Follow Up/Referrals: Geronimo Lamb MD [Primary Care Provider] - Stand Alone Forms: [employer] Info Instructions
[2022-11-06 17:27] LABS: Bilirubin Urine Negative (Negative); Blood Urine Negative (Negative); Color Urine Yellow (Yellow); Glucose Urine Negative (Negative); Ketones Urine Negative (Negative); Leukocyte Esterase Urine Trace (Negative); Nitrite Urine Negative (Negative); Protein Urine Negative (Negative); Urobilinogen Urine 0.2 (0.2-1.0); pH Urine 6.5 (5.0-8.5)
[2022-11-06 17:35] LABS: Appearance Urine Clear (Clear)
[2022-11-06 17:41] LABS: RBC Urine 0-2 (0-2); Squamous Epithelial Cell Urine Few (None-Few); WBC Urine 0-2 (0-5)
[2022-11-06 17:47] LABS: Basophils Absolute Auto 0.04 K/uL (0.00-0.30); Basophils Percent Auto 0.5 % (0.0-3.0); Eosinophils Absolute Auto 0.16 K/uL (0.00-0.50); Eosinophils Percent Auto 1.9 % (0.0-7.0); Hematocrit 41.9 % (33.0-51.0); Hemoglobin* 13.6 gm/dL (12.0-16.0); Immature Granulocytes Abs Auto 0.04 K/uL (0.00-0.30); Immature Granulocytes Pct Auto 0.5 %; Lymphocytes Percent Auto 19.3 % (20-44); Mean Corpuscular HGB Conc 33 gm/dL (32-36); Mean Corpuscular Hemoglobin 29 pg (26-34); Mean Corpuscular Volume 89 fL (80-100); Monocytes Percent Auto 5.4 % (0.0-11.0); Neutrophils Percent Auto 72.4 % (42.0-72.0); Platelet Count* 210 K/uL (140-440); Red Blood Count 4.72 m/uL (4.00-5.20); White Blood Count* 8.46 K/uL (4.50-11.00)
[2022-11-06 17:51] LABS: Slide Review Reflex No
[2022-11-06] MEDS: 0.9 % SODIUM CHLORIDE 1000 ml 1,000 ML IV (17:55)
[2022-11-06 17:59] LABS: Albumin* 3.8 g/dL (3.3-5.0); Chloride* 103 mmol/L (96-114)
[2022-11-06 18:00] LABS: Potassium* 3.8 mmol/L (3.6-5.1); Sodium* 139 mmol/L (135-149)
[2022-11-06 18:02] LABS: Alkaline Phosphatase* 74 U/L (40-150); Aspartate Amino Transferase* 31 U/L (12-35); Bilirubin Direct* 0.2 mg/dL (0.0-0.5); Bilirubin Total* 0.3 mg/dL (0.1-1.5); Blood Urea Nitrogen* 8 mg/dL (5-24); Carbon Dioxide* 30 mmol/L (20-32); Creatinine* 0.7 mg/dL (0.5-1.5); Est. Creatinine Clearance* 156.25; Estimated Glomerular Filt Rate 109 ml/min; Total Protein* 6.7 g/dL (6.0-8.3)
[2022-11-06 18:03] LABS: Alanine Aminotransferase* 35 U/L (4-35); Calcium* 9.3 mg/dL (8.4-10.6); Glucose* 97 mg/dL (60-115); Magnesium* 1.7 mg/dL (1.5-2.6)
[2022-11-06 18:05] LABS: C Reactive Protein* 0.9 mg/dL (0.5-1.0)
[2022-11-06 19:03] LABS: Thyroid Stimulating Hormone* < 0.015 uIU/mL (0.270-4.20)
[2022-11-16 19:10] LABS: Keppra (Levetiracetam) SEE SCANNED RESULT
== END 2022-11-06 20:05 | disposition home or self-care (01) ==
PROVIDERS: Emergency Provider Family Medicine; PCP Family Medicine
DX: R56.9 Unspecified convulsions (principal); F43.9 Reaction to severe stress, unspecified; E03.9 Hypothyroidism, unspecified
CPT/HCPCS: 36415; 80048; 80076; 80177; 81001; 83735; 84443; 85025; 86140; 96360; 99284; J7030

== ENCOUNTER 2022-11-09 08:09 | Outpatient (CLI) | payer MEDICAID, SELFPAY | END 2022-11-09 08:10 | disposition home or self-care (01) | LOC: AMB 11-13 10:48 | PROVIDERS: PCP Family Medicine; Visit Provider Family Medicine | DX: R56.9 Unspecified convulsions (principal); R06.09 Other forms of dyspnea | CPT/HCPCS: A0425; A0429 ==

== ENCOUNTER 2022-11-09 08:15 | Emergency (ER) | payer OTHER, SELFPAY ==
[2022-11-09 08:25] VITALS: BP 119/67; PULSE 116; RESP 20; TEMP 36.8; O2SAT 88; BMI 45.4
--- NOTE | 2022-11-09 08:30 | CRLHL7_ITS ---
For Patients: As a result of the Century Cures Act, medical imaging exams and procedure reports are released immediately into your electronic medical record. You may view this report before your referring provider. If you have questions, please contact your health care provider. INDICATION: Asthma. TECHNIQUE: Chest 1 views. COMPARISON: 07/16/2022. FINDINGS: Cardiovasculature and mediastinum: Heart size and vasculature are normal in caliber and appearance. Lungs and pleural spaces: Lungs are clear. No sign of infiltrate or mass. No sign of pleural effusion. No pneumothorax. Bones and soft tissues: No significant findings. IMPRESSION: No acute findings and no significant changes from the prior exam. Dictated by Severiano Dozier MD @ 11/09/2022 8:55:47 AM (Electronically Signed)
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
--- NOTE | 2022-11-09 08:37 | RESP.RT ---
Pt reports taking an albuterol neb at home and is taking one now that EMS gave her, which is reported to be a duoneb. BBS with good aeration, slight light wheezing in L upper lobe, improving with neb. Put pt on 2L nc, which she wears at home. Spo2 increased from 87 to 92%. She is breathing comfortably at 20 per minute.
[2022-11-09] MEDS: predniSONE 10 MG TABLET 50 MG PO (09:01)
[2022-11-09 09:16] VITALS: PULSE 102; RESP 20; O2SAT 92
== END 2022-11-09 09:38 | disposition home or self-care (01) ==
PROVIDERS: Emergency Provider Family Medicine; PCP Family Medicine
DX: J45.909 Unspecified asthma, uncomplicated (principal)
CPT/HCPCS: 71045; 99284; J7512

== ENCOUNTER 2022-11-25 14:12 | Emergency (ER) | payer MEDICARE, SELFPAY ==
[2022-11-25] VITALS (13 sets, daily range): BP systolic 107–117; BP diastolic 68–78; PULSE 95–103; RESP 18; TEMP 36.5; O2SAT 88–93; BMI 48.7
--- NOTE | 2022-11-25 14:46 | ED.GENADULT ---
HPI - General Adult General Chief complaint: Seizure Stated complaint: seizures Time Seen by Provider: 11/25/22 14:27 History of Present Illness HPI narrative: This 47-year-old female comes in reporting pseudoseizures that happened today twice before arrival here and also while waiting in triage. She states that she has had these in the past on occasion. She reports a couple episodes also occurring 2 days ago. She does see a neurologist and is on some medications. She states that she does not lose consciousness but has a weird feeling followed by a involuntary movements. There is no postictal symptoms. She has been seen here before in the somewhat distant past for similar symptoms and benefited from Ativan. Related Data Home Medications Medication Instructions Recorded Confirmed albuterol sulfate 90 mcg/actuation 2 puff inhalation Q4H PRN 11/30/21 11/25/22 aerosol inhaler budesonide-formoterol HFA 160 2 puff inhalation Q12H 11/30/21 11/25/22 mcg-4.5 mcg/actuation aerosol inhaler fluticasone 250 mcg-salmeterol 50 1 inh inhalation Q12H 11/30/21 11/25/22 mcg/dose blistr powdr for inhalation (Wixela Inhub) ipratropium 0.5 mg-albuterol 3 mg 3 ml inhalation Q6H PRN 11/30/21 11/25/22 (2.5 mg base)/3 mL nebulization soln levothyroxine 200 mcg tablet 150 mcg PO DAILY 11/30/21 11/25/22 mirabegron 50 mg tablet,extended 50 mg PO Q24H 11/30/21 11/25/22 release 24 hr (Myrbetriq) montelukast 10 mg tablet 10 mg PO HS 11/30/21 11/25/22 omeprazole 20 mg capsule,delayed 40 mg PO QDAY 02/26/22 11/25/22 release levetiracetam 750 mg tablet 750 mg PO BID 11/25/22 11/25/22 (Keppra) solifenacin 10 mg tablet 10 mg PO DAILY 11/25/22 11/25/22 Previous Rx's Medication Instructions Recorded paroxetine HCl 40 mg tablet 40 mg PO HS #30 tabs 03/13/22 omeprazole 40 mg capsule,delayed 40 mg PO DAILY #30 caps 07/16/22 release Allergies Allergy/AdvReac Type Severity Reaction Status Date / Time azithromycin Allergy Intermediate Bloody Verified 11/25/22 14:22 Stools latex Allergy Intermediate Rash Verified 11/25/22 14:22 oxycodone Allergy Intermediate Agitated Verified 11/25/22 14:22 scopolamine Allergy Intermediate Tremors Verified 11/25/22 14:22 basil Allergy Rash Verified 11/25/22 14:22 acetaminophen [From Percocet] AdvReac Confusion Verified 11/25/22 14:22 Glitter Allergy Rash Uncoded 11/25/22 14:22 Review of Systems Status of ROS: Reports: 10 or more systems reviewed and unremarkable except as noted in History and below Narrative: Constitutional: No fevers, no weight gain or loss. Eyes: No discharge. No vision changes. HENT: No congestion, no sore throat, no ear pain. Cardiovascular: No chest pain, no palpitations. Respiratory: No shortness of breath, no wheezes, no cough. Gastrointestinal: No abdominal pain, no vomiting, no diarrhea. Genitourinary: No dysuria, no hematuria. Musculoskeletal: Normal range of motion. Skin: No rashes, no pruritis. Neurological: No dizziness, weakness, sensory change, speech change. Pseudo-seizure activity. Endo/Heme/Allergies: No bruising or bleeding. No polydipsia. Pysch: no suicidality, no anxiety, no insomnia. All other systems reviewed and are negative. 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 - Unspecified convulsions (ICD-10) Anxiety ?F41.9 - Anxiety disorder, unspecified (ICD-10) Sinus infection ?J32.9 - Chronic sinusitis, unspecified (ICD-10) RODRICK (obstructive sleep apnea) ?G47.33 - Obstructive sleep apnea (adult) (pediatric) (ICD-10) ADHD ?F90.9 - Attention-deficit hyperactivity disorder, unspecified type (ICD-10) GERD (gastroesophageal reflux disease) ?K21.9 - Gastro-esophageal reflux disease without esophagitis (ICD-10) Hyperthyroidism ?E05.90 - Thyrotoxicosis, unspecified without thyrotoxic crisis or storm (ICD-10) Hydrocephalus ?G91.9 - Hydrocephalus, unspecified (ICD-10) Hyperlipidemia ?E78.5 - Hyperlipidemia, unspecified (ICD-10) Anxiety and depression ?F41.9 - Anxiety disorder, unspecified (ICD-10) ?F32.A - Depression, unspecified (ICD-10) Asthma ?J45.909 - Unspecified asthma, uncomplicated (ICD-10) Surgical History No significant past surgical history Social History Smoking Status: Never smoker Do you use any of these nicotine containing products: None Second hand tobacco smoke exposure: No How often do you have a drink containing alcohol: never How often do you have six or more drinks on one occasion: Never AUDIT-C Alcohol total score: 0 Non-prescribed substance use: denies use service: No Exam Narrative: Exam Narrative: Constitutional: Well-developed, well-nourished, no acute distress. HEENT: Normocephalic, atraumatic. Neck: Normal range of motion. Nontender. Supple. Heart: Regular. No murmurs. Normal rate. Intact distal pulses. Lungs: Clear to auscultation. No chest discomfort. No wheezes, rhonchi, or rales. Abdomen: Normal bowel sounds. Nontender. No rebound tenderness. Genitalia: Deferred. Back: No midline tenderness. Normal range of motion. Extremities: Normal range of motion. No injury. Skin: Intact. No rash. Warm. No erythema or pallor. Neurologic: No altered sensation. No weakness. Alert and oriented. Psychiatric: No suicidality. No anxiety or depression. No insomnia. Nursing notes and vitals signs are reviewed. Const: Vital Signs, click to edit/add: Vital Signs - 24 hr 11/25/22 14:18 11/25/22 14:37 11/25/22 14:38 Temperature 97.7 F Pulse Rate 96 96 Pulse Rate [Pulse Oximeter] 98 Respiratory Rate 18 Blood Pressure 115/78 Blood Pressure [Ri ght Upper Arm] 113/77 Pulse Oximetry 93 92 90 Oxygen Delivery Me thod Room Air 11/25/22 14:45 11/25/22 15:00 11/25/22 15:02 Temperature Pulse Rate 95 97 99 Pulse Rate [Pulse Oximeter] Respiratory Rate Blood Pressure 113/75 Blood Pressure [Ri ght Upper Arm] Pulse Oximetry 91 91 89 Oxygen Delivery Me thod 11/25/22 15:15 11/25/22 15:30 11/25/22 15:32 Temperature Pulse Rate 99 101 H 100 Pulse Rate [Pulse Oximeter] Respiratory Rate Blood Pressure 107/68 Blood Pressure [Ri ght Upper Arm] Pulse Oximetry 91 90 91 Oxygen Delivery Me thod 11/25/22 15:45 Temperature Pulse Rate 103 H Pulse Rate [Pulse Oximeter] Respiratory Rate Blood Pressure Blood Pressure [Ri ght Upper Arm] Pulse Oximetry 91 Oxygen Delivery Me thod Course Vital Signs Vital signs: Initial Vital Signs Temperature 97.7 F 11/25/22 14:18 Temperature Source Temporal Artery Scan 11/25/22 14:18 Pulse Rate 98 11/25/22 14:18 Respiratory Rate 18 11/25/22 14:18 Blood Pressure 113/77 11/25/22 14:18 Blood Pressure Mean 89 11/25/22 14:18 Blood Pressure Position Sitting 11/25/22 14:18 Pulse Oximetry 93 11/25/22 14:18 Oxygen Delivery Method Room Air 11/25/22 14:18 Vital Signs Temperature 97.7 F 11/25/22 14:18 Pulse Rate 98 11/25/22 14:18 Respiratory Rate 18 11/25/22 14:18 Blood Pressure 113/77 11/25/22 14:18 Pulse Oximetry 93 11/25/22 14:18 Oxygen Delivery Method Room Air 11/25/22 14:18 Temperature 97.7 F 11/25/22 14:18 Pulse Rate 103 H 11/25/22 15:45 Respiratory Rate 18 11/25/22 14:18 Blood Pressure 107/68 11/25/22 15:32 Pulse Oximetry 91 11/25/22 15:45 Oxygen Delivery Method Room Air 11/25/22 14:18 Medical Decision Making MDM Narrative Medical decision making narrative: This patient comes in reporting episodes of pseudo-seizure. She arrives with normal vital signs and has normal exam. I did review her records and see that she has had symptoms like this in the past at seemed to benefit from a dose of Ativan. The patient did receive 1 mg of Ativan orally. She is feeling sleepy but states that she feels better and is not having any ongoing symptoms. She has had imaging studies and does see a neurologist. I did discuss repeating lab and/or imaging options. The patient feels like she is okay to return home to resume her current plans. She does have a follow-up appointment with her neurologist. Discharge Plan Discharge Clinical Impression: Pseudoseizures Patient Disposition: Home w/ Parent or Adult Condition: Improved Additional Instructions: Continue current plans. Follow up with neurologist as scheduled. Return if worsening. Prescriptions: No Action levetiracetam [Keppra] 750 mg tablet 750 mg PO BID solifenacin 10 mg tablet 10 mg PO DAILY montelukast 10 mg tablet 10 mg PO HS Patient Comments: TAKE 1 TABLET BY MOUTH EVERYDAY AT BEDTIME Myrbetriq 50 mg tablet extended release 24 hr 50 mg PO Q24H Patient Comments: TAKE 1 TABLET BY MOUTH EVERY DAY levothyroxine 200 mcg tablet 150 mcg PO DAILY Patient Comments: TAKE 1 TABLET BY MOUTH DAILY. albuterol sulfate 90 mcg/actuation HFA aerosol inhaler 2 puff INHALATION Q4H PRN Patient Comments: INHALE 2 PUFFS BY MOUTH EVERY 4 HOURS NEEDED budesonide-formoterol 160-4.5 mcg/actuation HFA aerosol inhaler 2 puff INHALATION Q12H Patient Comments: INHALE 2 PUFFS BY MOUTH TWICE DAILY fluticasone propion-salmeterol [Wixela Inhub] 250-50 mcg/dose blister with device 1 inh INHALATION Q12H Patient Comments: INHALE 1 PUFF BY MOUTH TWICE A DAY ipratropium-albuterol 0.5 mg-3 mg(2.5 mg base)/3 mL solution for nebulization 3 ml INHALATION Q6H PRN Patient Comments: INHALE ONE VIAL VIA NEBULIZER FOUR TIMES DAILY omeprazole 40 mg capsule,delayed release(DR/EC) 40 mg PO DAILY Qty: 30 0RF omeprazole 20 mg capsule,delayed release(DR/EC) 40 mg PO QDAY paroxetine HCl 40 mg tablet 40 mg PO HS Qty: 30 0RF Patient Comments: TAKE 1 TABLET BY MOUTH EVERYDAY AT BEDTIME Follow Up/Referrals: Geronimo Lamb MD [Primary Care Provider] - Stand Alone Forms: [employer] Info Instructions
[2022-11-25] MEDS: LORazepam 1 MG TABLET PO (14:57)
--- NOTE | 2022-11-25 15:59 | ED.NURSE ---
Patient resting comfortably at this time. Sleeping on her side. No seizures noted.
--- NOTE | 2022-11-25 16:26 | ED.NURSE ---
Patient called her father for a ride home from the emergency room. She then reported another pseudo-seizure. Updated provider. Per provider, patient still appropriate for discharge.
== END 2022-11-25 16:39 | disposition home or self-care (01) ==
PROVIDERS: Emergency Provider Emergency Medicine Emergency Medical Services; PCP Family Medicine
DX: R56.9 Unspecified convulsions (principal)
CPT/HCPCS: 99283; 99284; A9270

== ENCOUNTER 2022-12-08 02:36 | Outpatient (CLI) | payer OTHER, SELFPAY | END 2022-12-08 02:37 | disposition home or self-care (01) | LOC: AMB 12-09 14:01 | PROVIDERS: PCP Family Medicine; Visit Provider Family Medicine | DX: R56.9 Unspecified convulsions (principal) | CPT/HCPCS: A0425; A0429 ==

== ENCOUNTER 2022-12-08 03:00 | Emergency (ER) | payer OTHER, SELFPAY ==
[2022-12-08] VITALS (22 sets, daily range): BP systolic 118–144; BP diastolic 78–93; PULSE 76–95; RESP 16–18; TEMP 36.2; O2SAT 92–98
--- NOTE | 2022-12-08 03:34 | ED_ITS ---
HPI - General Adult General Chief complaint: Seizure Stated complaint: Seizure Time Seen by Provider: 12/08/22 03:33 History of Present Illness HPI narrative: pt has had increases seizure, 8-10 per day? EMS reported 8 seizure in past 26 hours. Keppra was increased to 750 from 500. Two witnessed by EMS 47-year-old woman brought to the emergency department via EMS with concern of seizures. Yesterday had 1 or 2 episodes. These do not appear to be true seizures more episodes of a building shaking quality that last about 20 seconds. Keppra was increased recently. She is feeling well but tired at this point. Quite clear mentally. Was to see her neurologist for the 1st time sometime in the middle of this coming week but due to needing to be gone from the office apparently has been rescheduled now for the week of December Had been hyperthyroid on recent laboratory evaluation; I am not aware that this is been addressed yet. Related Data Home Medications Medication Instructions Recorded Confirmed albuterol sulfate 90 mcg/actuation 2 puff inhalation Q4H PRN 11/30/21 11/25/22 aerosol inhaler budesonide-formoterol HFA 160 2 puff inhalation Q12H 11/30/21 11/25/22 mcg-4.5 mcg/actuation aerosol inhaler fluticasone 250 mcg-salmeterol 50 1 inh inhalation Q12H 11/30/21 11/25/22 mcg/dose blistr powdr for inhalation (Wixela Inhub) ipratropium 0.5 mg-albuterol 3 mg 3 ml inhalation Q6H PRN 11/30/21 11/25/22 (2.5 mg base)/3 mL nebulization soln levothyroxine 200 mcg tablet 150 mcg PO DAILY 11/30/21 11/25/22 mirabegron 50 mg tablet,extended 50 mg PO Q24H 11/30/21 11/25/22 release 24 hr (Myrbetriq) montelukast 10 mg tablet 10 mg PO HS 11/30/21 11/25/22 omeprazole 20 mg capsule,delayed 40 mg PO QDAY 02/26/22 11/25/22 release levetiracetam 750 mg tablet 750 mg PO BID 11/25/22 11/25/22 (Keppra) solifenacin 10 mg tablet 10 mg PO DAILY 11/25/22 11/25/22 Previous Rx's Medication Instructions Recorded paroxetine HCl 40 mg tablet 40 mg PO HS #30 tabs 03/13/22 omeprazole 40 mg capsule,delayed 40 mg PO DAILY #30 caps 07/16/22 release Allergies Allergy/AdvReac Type Severity Reaction Status Date / Time azithromycin Allergy Intermediate Bloody Verified 11/25/22 14:22 Stools latex Allergy Intermediate Rash Verified 11/25/22 14:22 oxycodone Allergy Intermediate Agitated Verified 11/25/22 14:22 scopolamine Allergy Intermediate Tremors Verified 11/25/22 14:22 basil Allergy Rash Verified 11/25/22 14:22 acetaminophen [From Percocet] AdvReac Confusion Verified 11/25/22 14:22 Glitter Allergy Rash Uncoded 11/25/22 14:22 Review of Systems Status of ROS: Reports: 6 or more systems reviewed and unremarkable except as noted in History and below 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 - Unspecified convulsions (ICD-10) Anxiety ?F41.9 - Anxiety disorder, unspecified (ICD-10) Sinus infection ?J32.9 - Chronic sinusitis, unspecified (ICD-10) RODRICK (obstructive sleep apnea) ?G47.33 - Obstructive sleep apnea (adult) (pediatric) (ICD-10) ADHD ?F90.9 - Attention-deficit hyperactivity disorder, unspecified type (ICD-10) GERD (gastroesophageal reflux disease) ?K21.9 - Gastro-esophageal reflux disease without esophagitis (ICD-10) Hyperthyroidism ?E05.90 - Thyrotoxicosis, unspecified without thyrotoxic crisis or storm (ICD-10) Hydrocephalus ?G91.9 - Hydrocephalus, unspecified (ICD-10) Hyperlipidemia ?E78.5 - Hyperlipidemia, unspecified (ICD-10) Anxiety and depression ?F41.9 - Anxiety disorder, unspecified (ICD-10) ?F32.A - Depression, unspecified (ICD-10) Asthma ?J45.909 - Unspecified asthma, uncomplicated (ICD-10) Surgical History No significant past surgical history Social History Smoking Status: Never smoker Do you use any of these nicotine containing products: None Second hand tobacco smoke exposure: No How often do you have a drink containing alcohol: never How often do you have six or more drinks on one occasion: Never AUDIT-C Alcohol total score: 0 Non-prescribed substance use: denies use service: No Exam Narrative: Exam Narrative: Texting on her phone as I enter the room. Appears mildly fatigued. Moving all e xtremities without difficulty. Cranial nerves two through 12 intact. There's deviation though of the right eye laterally. This is chronic. Pupils are Brisk and equal. Head a traumatic. OP without evidence of trauma. Breathing easily with clear lungs. Heart in a regular rhythm and elevated rate. Extremities are well perfused without edema. GCS of 15. Const: Vital Signs, click to edit/add: Vital Signs - 24 hr 12/08/22 03:06 12/08/22 04:03 12/08/22 04:04 Temperature 97.1 F L Pulse Rate 88 90 Pulse Rate [Right Pulse Oximeter] 95 Respiratory Rate 18 Blood Pressure 138/85 Blood Pressure [Le ft Forearm] 144/93 H Pulse Oximetry 95 96 95 Oxygen Delivery Me thod Nasal Cannula Oxygen Flow Rate 3 Documenting provider has reviewed patient's vital signs: yes Course Vital Signs Vital signs: Initial Vital Signs Temperature 97.1 F L 12/08/22 03:06 Temperature Source Temporal Artery Scan 12/08/22 03:06 Pulse Rate 95 12/08/22 03:06 Pulse Rhythm Regular 12/08/22 03:06 Respiratory Rate 18 12/08/22 03:06 Blood Pressure 144/93 H 12/08/22 03:06 Blood Pressure Mean 110 H 12/08/22 03:06 Blood Pressure Position Semi-Fowlers 12/08/22 03:06 Pulse Oximetry 95 12/08/22 03:06 Oxygen Delivery Method Nasal Cannula 12/08/22 03:06 Oxygen Flow Rate 3 12/08/22 03:06 Vital Signs Temperature 97.1 F L 12/08/22 03:06 Pulse Rate 95 12/08/22 03:06 Respiratory Rate 18 12/08/22 03:06 Blood Pressure 144/93 H 12/08/22 03:06 Pulse Oximetry 95 12/08/22 03:06 Oxygen Delivery Method Nasal Cannula 12/08/22 03:06 Oxygen Flow Rate 3 12/08/22 03:06 Temperature 97.1 F L 12/08/22 03:06 Pulse Rate 80 12/08/22 07:02 Respiratory Rate 16 12/08/22 04:00 Blood Pressure 118/83 12/08/22 07:01 Pulse Oximetry 95 12/08/22 07:02 Oxygen Delivery Method Nasal Cannula 12/08/22 04:00 Oxygen Flow Rate 2 12/08/22 04:00 Medical Decision Making MDM Narrative Medical decision making narrative: Given my history with this patient and Current essentially asymptomatic presentation, I don't believe any emergent interventions are necessary at this time. I do think that stress/anxiety does bring about these episodes. Will give one tablet of lorazepam and monitor here in the emergency department. Provided no further events, I anticipate discharge home. See patient discharge plan. Discharge Plan Discharge Clinical Impression: Seizure-like activity Patient Disposition: Home w/ Parent or Adult Condition: Improved Additional Instructions: Stay hydrated. Can use this lorazepam from [facility] here and there until neurology appointment. Remember that we need to further evaluate your thyroid function as it seems to be overly active. This needs to be followed up with primary care or with her neurologist. Prescriptions: No Action levetiracetam [Keppra] 750 mg tablet 750 mg PO BID solifenacin 10 mg tablet 10 mg PO DAILY montelukast 10 mg tablet 10 mg PO HS Patient Comments: TAKE 1 TABLET BY MOUTH EVERYDAY AT BEDTIME Myrbetriq 50 mg tablet extended release 24 hr 50 mg PO Q24H Patient Comments: TAKE 1 TABLET BY MOUTH EVERY DAY levothyroxine 200 mcg tablet 150 mcg PO DAILY Patient Comments: TAKE 1 TABLET BY MOUTH DAILY. albuterol sulfate 90 mcg/actuation HFA aerosol inhaler 2 puff INHALATION Q4H PRN Patient Comments: INHALE 2 PUFFS BY MOUTH EVERY 4 HOURS NEEDED budesonide-formoterol 160-4.5 mcg/actuation HFA aerosol inhaler 2 puff INHALATION Q12H Patient Comments: INHALE 2 PUFFS BY MOUTH TWICE DAILY fluticasone propion-salmeterol [Wixela Inhub] 250-50 mcg/dose blister with device 1 inh INHALATION Q12H Patient Comments: INHALE 1 PUFF BY MOUTH TWICE A DAY ipratropium-albuterol 0.5 mg-3 mg(2.5 mg base)/3 mL solution for nebulization 3 ml INHALATION Q6H PRN Patient Comments: INHALE ONE VIAL VIA NEBULIZER FOUR TIMES DAILY omeprazole 40 mg capsule,delayed release(DR/EC) 40 mg PO DAILY Qty: 30 0RF omeprazole 20 mg capsule,delayed release(DR/EC) 40 mg PO QDAY paroxetine HCl 40 mg tablet 40 mg PO HS Qty: 30 0RF Patient Comments: TAKE 1 TABLET BY MOUTH EVERYDAY AT BEDTIME Follow Up/Referrals: Geronimo Lamb MD [Primary Care Provider] - Stand Alone Forms: [employer] Info Instructions
[2022-12-08] MEDS: LORazepam 1 MG TABLET PO (04:09)
== END 2022-12-08 07:36 | disposition home or self-care (01) ==
LOC: ED 04:31
PROVIDERS: Emergency Provider Family Medicine; PCP Family Medicine
DX: R56.9 Unspecified convulsions (principal)
CPT/HCPCS: 99283; 99284; A9270

== ENCOUNTER 2023-01-15 21:05 | Outpatient (CLI) | payer MEDICARE, SELFPAY | END 2023-01-15 21:06 | disposition home or self-care (01) | LOC: AMB 01-19 23:42 | PROVIDERS: PCP Family Medicine; Visit Provider Family Medicine | DX: R41.82 Altered mental status, unspecified (principal) | CPT/HCPCS: A0425; A0427 ==

== ENCOUNTER 2023-01-15 21:25 | Emergency (ER) | payer OTHER, SELFPAY ==
[2023-01-15] VITALS (15 sets, daily range): BP systolic 122–143; BP diastolic 78–106; PULSE 97–106; RESP 36; TEMP 37; O2SAT 86–94; BMI 51.3
--- NOTE | 2023-01-15 21:30 | CRLHL7_ITS ---
For Patients: As a result of the Century Cures Act, medical imaging exams and procedure reports are released immediately into your electronic medical record. You may view this report before your referring provider. If you have questions, please contact your health care provider. INDICATION: Episode of altered mentation and discoordination, now resolved TECHNIQUE: Head CT without contrast. COMPARISON: March 07, 2020 FINDINGS: CSF spaces: Within normal limits for age. Brain parenchyma: Normal hodge-white junction. No sign of mass, hemorrhage, or midline shift. Skull base and calvarium: The visualized paranasal sinuses and mastoid air cells demonstrate no acute or significant findings. The visualized orbits are grossly unremarkable. No skull fractures. IMPRESSION: No acute abnormality. Findings discussed with Dr. Frausto at 9:52 p.m. on January 15, 2023. Please note that all CT scans at this facility use dose modulation, iterative reconstruction, and/or weight-based dosing when appropriate to reduce radiation dose to as low as reasonably achievable. Dictated by Denise Peñaloza MD @ 01/15/2023 9:54:22 PM (Electronically Signed)
[2023-01-15 21:49] LABS: Basophils Absolute Auto 0.04 K/uL (0.00-0.30); Basophils Percent Auto 0.4 % (0.0-3.0); Hematocrit 37.5 % (33.0-51.0); Hemoglobin* 11.9 gm/dL (12.0-16.0); Immature Granulocytes Abs Auto 0.07 K/uL (0.00-0.30); Immature Granulocytes Pct Auto 0.7 %; Lymphocytes Percent Auto 18.4 % (20-44); Mean Corpuscular HGB Conc 32 gm/dL (32-36); Mean Corpuscular Hemoglobin 29 pg (26-34); Mean Corpuscular Volume 92 fL (80-100); Monocytes Percent Auto 5.7 % (0.0-11.0); Neutrophils Percent Auto 72.8 % (42.0-72.0); Platelet Count* 202 K/uL (140-440); RDW Coefficient of Variation % 14.2 % (11.5-15.5); Red Blood Count 4.09 m/uL (4.00-5.20); Slide Review Reflex No; White Blood Count* 10.19 K/uL (4.50-11.00)
[2023-01-15] MEDS: 0.9 % SODIUM CHLORIDE 1000 ml 1,000 ML IV (21:50)
[2023-01-15] MEDS: ALBUTEROL SULFATE 2.5 MG/3 ML VIAL.NEB NEB (21:50)
[2023-01-15] MEDS: LORazepam 2 MG/ML inj 0.5 MG IVP (21:50)
--- NOTE | 2023-01-15 21:51 | ED.GENADULT ---
HPI - General Adult General Chief complaint: Altered Mental Status Stated complaint: Ill Time Seen by Provider: 01/15/23 21:29 History of Present Illness HPI narrative: Last known well 1800. Difficulty breathing, 84% on room air. Neb en route. Word finding trouble. Bilateral leg trouble, unable to move legs properly. Symptoms resolved upon arrival to ER per EMS. Pt seen by Dr. Richard upon arrival. 47-year-old woman presenting to the emergency department via EMS. Stroke code activated. I assess Ms. Garcia initially in the back joe, meeting EMS upon arrival and into the CT scanner. She is quite alert moving all extremities at this time articulating without difficulty. She does suddenly begin diffusely and profusely shaking with eyes closed but when prompted alerts immediately to normal. With difficulty breathing and oxygen saturations as noted above, EMS did give I believe a DuoNeb en route. Reviewing history later with Paloma whom I have seen on number of occasions. Had gone to sleep around 6:00 p.m. waking around 9:00 p.m. calling EMS when felt like she was having trouble finding words and moving both legs. She apparently shuffle ambulated to the bathroom noting that her legs head felt funny and then felt like they just went out at her waist. She was struggling with articulation subsequently in a phone call to a friend. Just babbling. Very distressing. Otherwise in usual state of health. No cough cold symptoms. No dysuria. No headaches. No visual disturbances. 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 She continues however on Keppra. Does have a history of asthma. Neurologist apparently thinks that albuterol may be adversely affecting her seizures; evidently was more short of breath this morning. Been using albuterol inhaler and nebulizations over the course the day. Sounds like around 8 maybe 9 treatments between inhaler and nebulizer. No fever. Further questioning though may have been a little more short of breath over the last few days. She does think though as I am seeing her tachypneic and hypoxic that this stressful experience now has triggered her asthma; this would not be an unusual course of events. Adopted with unknown family history Related Data Home Medications Medication Instructions Recorded Confirmed albuterol sulfate 90 mcg/actuation 2 puff inhalation Q4H PRN 11/30/21 01/15/23 aerosol inhaler ipratropium 0.5 mg-albuterol 3 mg 3 ml inhalation Q6H PRN 11/30/21 01/15/23 (2.5 mg base)/3 mL nebulization soln levothyroxine 200 mcg tablet 150 mcg PO DAILY 11/30/21 01/15/23 mirabegron 50 mg tablet,extended 50 mg PO Q24H 11/30/21 01/15/23 release 24 hr (Myrbetriq) montelukast 10 mg tablet 10 mg PO HS 11/30/21 01/15/23 omeprazole 20 mg capsule,delayed 40 mg PO QDAY 02/26/22 01/15/23 release levetiracetam 750 mg tablet 750 mg PO BID 11/25/22 01/15/23 (Keppra) solifenacin 10 mg tablet 10 mg PO DAILY 11/25/22 01/15/23 Previous Rx's Medication Instructions Recorded paroxetine HCl 40 mg tablet 40 mg PO HS #30 tabs 03/13/22 ipratropium 0.5 mg-albuterol 3 mg 3 ml inhalation QID PRN shortness 01/16/23 (2.5 mg base)/3 mL nebulization of breath or wheezing #90 mL soln Allergies Allergy/AdvReac Type Severity Reaction Status Date / Time azithromycin Allergy Intermediate Bloody Verified 01/15/23 21:50 Stools latex Allergy Intermediate Rash Verified 01/15/23 21:50 oxycodone Allergy Intermediate Agitated Verified 01/15/23 21:50 scopolamine Allergy Intermediate Tremors Verified 01/15/23 21:50 basil Allergy Rash Verified 01/15/23 21:50 acetaminophen [From Percocet] AdvReac Confusion Verified 01/15/23 21:50 Glitter Allergy Rash Uncoded 11/25/22 14:22 Review of Systems Status of ROS: Reports: 6 or more systems reviewed and unremarkable except as noted in History and below [facility] Medical History 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 - Unspecified convulsions (ICD-10) Anxiety ?F41.9 - Anxiety disorder, unspecified (ICD-10) Sinus infection ?J32.9 - Chronic sinusitis, unspecified (ICD-10) RODRICK (obstructive sleep apnea) ?G47.33 - Obstructive sleep apnea (adult) (pediatric) (ICD-10) ADHD ?F90.9 - Attention-deficit hyperactivity disorder, unspecified type (ICD-10) GERD (gastroesophageal reflux disease) ?K21.9 - Gastro-esophageal reflux disease without esophagitis (ICD-10) Hyperthyroidism ?E05.90 - Thyrotoxicosis, unspecified without thyrotoxic crisis or storm (ICD-10) Hydrocephalus ?G91.9 - Hydrocephalus, unspecified (ICD-10) Hyperlipidemia ?E78.5 - Hyperlipidemia, unspecified (ICD-10) Anxiety and depression ?F41.9 - Anxiety disorder, unspecified (ICD-10) ?F32.A - Depression, unspecified (ICD-10) Asthma ?J45.909 - Unspecified asthma, uncomplicated (ICD-10) Surgical History No significant past surgical history Social History Smoking Status: Never smoker Do you use any of these nicotine containing products: None Second hand tobacco smoke exposure: No How often do you have a drink containing alcohol: never How often do you have six or more drinks on one occasion: Never AUDIT-C Alcohol total score: 0 Non-prescribed substance use: denies use service: No Exam Narrative: Exam Narrative: A pleasant. Fully alert. Conversing easily. GCS actually looks to be 15. NIH Stroke Scale of 0. She is mildly labored and a little tachypneic with her breathing. Right eye deviates laterally historically. Pupils are equal and briskly reactive. Extraocular movements otherwise are full. Oral mucosa without sign of injury. Head is atraumatic. Neck is supple. Lungs with diffuse trace wheeze. Heart in elevated rate but a regular rhythm. Abdomen is overweight soft nontender. She has full strength throughout moving all extremities. A little tremulous more noticeable in the upper extremities/hands. Well-perfused peripherally though I would note often is difficult to obtain good pleth/pickup for oximetry measurements With continued conversation at 1 moment does stumble over some words but generally not. Const: Vital Signs, click to edit/add: Vital Signs - 24 hr 01/15/23 21:42 01/15/23 21:57 01/15/23 22:00 Temperature 98.6 F Pulse Rate 106 H 99 Pulse Rate [Pulse Oximeter] 100 Respiratory Rate 36 H Blood Pressure Blood Pressure [Ri ght Upper Arm] 125/78 Pulse Oximetry 86 L 92 90 Oxygen Delivery Me thod Room Air Nasal Cannula Oxygen Flow Rate 2 01/15/23 22:05 01/15/23 22:06 01/15/23 22:07 Temperature Pulse Rate 99 99 100 Pulse Rate [Pulse Oximeter] Respiratory Rate Blood Pressure 125/82 122/84 Blood Pressure [Ri ght Upper Arm] Pulse Oximetry 91 90 91 Oxygen Delivery Me thod Nasal Cannula [place] Nasal Ca nnula [place] Nasal Ca nnula Oxygen Flow Rate 2 2 2 01/15/23 22:17 01/15/23 22:30 01/15/23 22:31 Temperature Pulse Rate 100 100 103 H Pulse Rate [Pulse Oximeter] Respiratory Rate Blood Pressure 123/84 140/106 H Blood Pressure [Ri ght Upper Arm] Pulse Oximetry 94 87 L 86 L Oxygen Delivery Me thod [place] Nasal Ca nnula [place] Nasal Ca nnula [place] Nasal Ca nnula Oxygen Flow Rate 2 2 2 01/15/23 22:46 01/15/23 23:00 01/15/23 23:01 Temperature Pulse Rate 97 99 99 Pulse Rate [Pulse Oximeter] Respiratory Rate Blood Pressure 142/92 H 143/95 H Blood Pressure [Ri ght Upper Arm] Pulse Oximetry 91 93 91 Oxygen Delivery Me thod [place] Nasal Ca nnula [place] Nasal Ca nnula [place] Nasal Ca nnula Oxygen Flow Rate 2 2 2 01/15/23 23:02 01/15/23 23:30 01/15/23 23:32 Temperature Pulse Rate 102 H 100 100 Pulse Rate [Pulse Oximeter] Respiratory Rate Blood Pressure 131/106 H Blood Pressure [Ri ght Upper Arm] Pulse Oximetry 93 93 93 Oxygen Delivery Me thod Oxygen Flow Rate 01/16/23 00:05 01/16/23 00:06 01/16/23 00:30 Temperature Pulse Rate 104 H 103 H 102 H Pulse Rate [Pulse Oximeter] Respiratory Rate Blood Pressure 130/94 H Blood Pressure [Ri ght Upper Arm] Pulse Oximetry 89 92 94 Oxygen Delivery Me thod Oxygen Flow Rate 01/16/23 00:31 Temperature Pulse Rate 101 H Pulse Rate [Pulse Oximeter] Respiratory Rate Blood Pressure 129/99 H Blood Pressure [Ri ght Upper Arm] Pulse Oximetry 91 Oxygen Delivery Me thod Oxygen Flow Rate Documenting provider has reviewed patient's vital signs: yes Course Vital Signs Vital signs: Initial Vital Signs Temperature 98.6 F 01/15/23 21:42 Temperature Source Temporal Artery Scan 01/15/23 21:42 Pulse Rate 100 01/15/23 21:42 Pulse Rhythm Regular 01/15/23 21:42 Pulse Strength 3+ Normal 01/15/23 21:42 Respiratory Rate 36 H 01/15/23 21:42 Blood Pressure 125/78 01/15/23 21:42 Blood Pressure Mean 93 01/15/23 21:42 Blood Pressure Position Semi-Fowlers 01/15/23 21:42 Pulse Oximetry 86 L 01/15/23 21:42 Oxygen Delivery Method Room Air 01/15/23 21:42 Vital Signs Temperature 98.6 F 01/15/23 21:42 Pulse Rate 100 01/15/23 21:42 Respiratory Rate 36 H 01/15/23 21:42 Blood Pressure 125/78 01/15/23 21:42 Pulse Oximetry 86 L 01/15/23 21:42 Oxygen Delivery Method Room Air 01/15/23 21:42 Temperature 98.6 F 01/15/23 21:42 Pulse Rate 101 H 01/16/23 00:31 Respiratory Rate 36 H 01/15/23 21:42 Blood Pressure 129/99 H 01/16/23 00:31 Pulse Oximetry 91 01/16/23 00:31 Oxygen Delivery Method [place] Nasal Cannula 01/15/23 23:01 Oxygen Flow Rate 2 01/15/23 23:01 Medical Decision Making MDM Narrative Medical decision making narrative: Does not appear to be particularly postictal. Does not have any lingering stroke symptoms. Initial noncontrast head CT reviewed by me shows chronic changes. Confirmed with Radiology as well that is without acute abnormality. Am not continuing with stroke code here. In this patient this will be difficult to determine events. She is prone to unusual neurological responses/event. Furthermore this was waking out of sleep. Did order for IV fluids and dose of lorazepam. Overall she felt improved. Discussed best treatment/course of action for her lungs. She did feel another nebulization would be helpful. Also Solu-Medrol. Improve slightly over time in the emergency department where she felt that her numbers were good for her and she felt well generally. In this regard Ms. Garcia wanted to continue course of steroid outpatient. She also notes that typically she does well on steroids and then returns right back to her baseline. She feels that at this point the difficulty walking and articulating caused stress which has kicked off her asthma. Over time in the emergency department improved air movement on reauscultation of her lungs with less wheeze. CRP mildly elevated and there are some white cells in her urine. I would not treat based on absence of symptoms and wait for culture at a minimum. See patient discharge plan Medical Records Medical records reviewed: Yes I reviewed the patient's medical records Lab Data Lab results reviewed: Yes I reviewed the patient's lab results Labs: Lab Results 01/15/23 01/15/23 Range/Units 21:40 23:55 WBC 10.19 (4.50-11.00) K/uL RBC 4.09 (4.00-5.20) m/uL Hgb 11.9 L (12.0-16.0) gm/dL Hct 37.5 (33.0-51.0) % MCV 92 (80-100) fL MCH 29 (26-34) pg MCHC 32 (32-36) gm/dL RDW Coeff of Tomy 14.2 (11.5-15.5) % Plt Count 202 (140-440) K/uL Neut % (Auto) 72.8 H (42.0-72.0) % Lymph % (Auto) 18.4 L (20-44) % [place] % (Auto) 5.7 (0.0-11.0) % Eos % (Auto) 2.0 (0.0-7.0) % Baso % (Auto) 0.4 (0.0-3.0) % Neut # (Auto) 7.40 H (1.7-7.0) K/uL Lymph # (Auto) 1.90 (0.90-2.90) K/uL [place] # (Auto) 0.60 (0.00-0.90) K/UL Eos # (Auto) 0.20 (0.00-0.50) K/uL Baso # (Auto) 0.04 (0.00-0.30) K/uL Abs Immat Gran (auto) 0.07 (0.00-0.30) K/uL Imm/Tot Granulo (auto) 0.7 % Sodium 136 (135-149) mmol/L Potassium 4.7 (3.6-5.1) mmol/L Chloride 102 (96-114) mmol/L Carbon Dioxide 31 (20-32) mmol/L Anion Gap 3 L (7-15) mEq/L BUN 12 (5-24) mg/dL Creatinine 0.6 (0.5-1.5) mg/dL Estimated Creat Clear 200.94 Estimated GFR 113 ml/min Glucose 102 (60-115) mg/dL Calcium 8.8 (8.4-10.6) mg/dL Total Bilirubin 0.8 (0.1-1.5) mg/dL Direct Bilirubin 0.4 (0.0-0.5) mg/dL AST 48 H (12-35) U/L ALT 32 (4-35) U/L Alkaline Phosphatase 79 (40-150) U/L C-Reactive Protein 2.5 H (0.5-1.0) mg/dL Total Protein 7.0 (6.0-8.3) g/dL Albumin 4.0 (3.3-5.0) g/dL Urine Color Yellow (Yellow) Urine Appearance Clear (Clear) Urine pH 7.0 (5.0-8.5) Ur Specific [place] 1.010 (1.000-1.030) Urine Protein Negative (Negative) Urine Glucose (UA) Negative (Negative) Urine Ketones Negative (Negative) Urine Blood Trace-intact A (Negative) Urine Nitrite Negative (Negative) Urine Bilirubin Negative (Negative) Urine Urobilinogen 1.0 (0.2-1.0) Ur Leukocyte Esterase 1+ A (Negative) Urine RBC 0-2 (0-2) Urine WBC 5-10 A (0-5) Ur Squamous Epith Cells Few (None-Few) Urine Bacteria Few A (None) Urine Opiates Screen Negative (Negative) Ur Oxycodone Screen Negative (Negative) Urine Methadone Screen Negative (Negative) Ur Propoxyphene Screen Negative (Negative) Ur Barbiturates Screen Negative (Negative) U Tricyclic Antidepress Negative (Negative) Ur Phencyclidine Scrn Negative (Negative) Ur Amphetamines Screen Negative (Negative) U Methamphetamines Scrn Negative (Negative) U Benzodiazepines Scrn Negative (Negative) Urine Cocaine Screen Negative (Negative) U Marijuana (THC) Screen Negative (Negative) Ur Drug Screen Comment See Note ECG Data Attestation: I personally reviewed and interpreted this ECG as follows: (Sinus rhythm. Tachycardia though at 101. Agree with low voltage QRS. No acute ischemic changes.) Critical Care Time Critical Care Time Total Critical Care Time in Minutes: 35 Discharge Plan Discharge Clinical Impression: Asthma exacerbation, Alterations of sensations Patient Disposition: Home, Self-Care Condition: Improved Additional Instructions: I am not sure what to make of this episode around waking today. I am not convinced that this was a stroke. You are indeed neurologically complicated. I am happy you're feeling better now. I would use these DuoNebs 4 times daily over the next 3 days. Can use albuterol inhaler otherwise for breakthrough. Try not to take more than 8 treatments total in a day. You received Solu-Medrol here in the emergency department. Would continue prednisone from [facility] for another 5 days. If your shortness of breath is worsening, increasing chest pain, associated fever, please return to the emergency department. Sounds like you might be due for a visit with your primary care provider to discuss your oxygen needs. Take this nebulizer T and cup and tubing with you. There were some small findings in your urine that with certain symptoms might warrant treatment. In your case without clear symptoms, I would wait for culture results. Prescriptions: New ipratropium-albuterol 0.5 mg-3 mg(2.5 mg base)/3 mL solution for nebulization 3 ml inhalation QID PRN (Reason: shortness of breath or wheezing) Qty: 90 0RF No Action levetiracetam [Keppra] 750 mg tablet 750 mg PO BID solifenacin 10 mg tablet 10 mg PO DAILY montelukast 10 mg tablet 10 mg PO HS Patient Comments: TAKE 1 TABLET BY MOUTH EVERYDAY AT BEDTIME Myrbetriq 50 mg tablet extended release 24 hr 50 mg PO Q24H Patient Comments: TAKE 1 TABLET BY MOUTH EVERY DAY levothyroxine 200 mcg tablet 150 mcg PO DAILY Patient Comments: TAKE 1 TABLET BY MOUTH DAILY. albuterol sulfate 90 mcg/actuation HFA aerosol inhaler 2 puff INHALATION Q4H PRN Patient Comments: INHALE 2 PUFFS BY MOUTH EVERY 4 HOURS NEEDED ipratropium-albuterol 0.5 mg-3 mg(2.5 mg base)/3 mL solution for nebulization 3 ml INHALATION Q6H PRN Patient Comments: INHALE ONE VIAL VIA NEBULIZER FOUR TIMES DAILY omeprazole 20 mg capsule,delayed release(DR/EC) 40 mg PO QDAY paroxetine HCl 40 mg tablet 40 mg PO HS Qty: 30 0RF Patient Comments: TAKE 1 TABLET BY MOUTH EVERYDAY AT BEDTIME Follow Up/Referrals: Geronimo Lamb MD [Primary Care Provider] - Stand Alone Forms: [employer] Info Instructions
--- NOTE | 2023-01-15 21:53 | ED.NURSE ---
Pt seen by MD hardin at bedside in [facility] for CT scan. states he did not need [facility] consult at this time.
[2023-01-15 22:09] LABS: Chloride* 102 mmol/L (96-114)
[2023-01-15 22:10] LABS: Potassium* 4.7 mmol/L (3.6-5.1); Sodium* 136 mmol/L (135-149)
[2023-01-15 22:12] LABS: Creatinine* 0.6 mg/dL (0.5-1.5); Est. Creatinine Clearance* 200.94; Estimated Glomerular Filt Rate 113 ml/min
--- NOTE | 2023-01-15 22:12 | ED.NURSE ---
Per Dr. Richard, discontinue Stroke Code. Pt's CT scan showed no stroke and all symptoms have resolved.
[2023-01-15 22:13] LABS: Alanine Aminotransferase* 32 U/L (4-35); Alkaline Phosphatase* 79 U/L (40-150); Anion Gap 3 mEq/L (7-15); Aspartate Amino Transferase* 48 U/L (12-35); Bilirubin Direct* 0.4 mg/dL (0.0-0.5); Bilirubin Total* 0.8 mg/dL (0.1-1.5); Blood Urea Nitrogen* 12 mg/dL (5-24); Calcium* 8.8 mg/dL (8.4-10.6); Carbon Dioxide* 31 mmol/L (20-32); Glucose* 102 mg/dL (60-115)
[2023-01-15 22:16] LABS: C Reactive Protein* 2.5 mg/dL (0.5-1.0)
[2023-01-15] MEDS: METHYLPREDNISOLONE SOD SUCC 62.5 MG/ML (125) 80 MG IVP (22:42)
[2023-01-15] MEDS: IPRAT-ALBUT 0.5-2.5 MG/3 ML NEB 1 NEB IH (23:32)
[2023-01-16 00:05] VITALS: BP 130/94; PULSE 104; O2SAT 89
[2023-01-16 00:06] VITALS: PULSE 103; O2SAT 92
[2023-01-16 00:11] LABS: Appearance Urine Clear (Clear); Bilirubin Urine Negative (Negative); Blood Urine Trace-intact (Negative); Color Urine Yellow (Yellow); Glucose Urine Negative (Negative); Ketones Urine Negative (Negative); Leukocyte Esterase Urine 1+ (Negative); Nitrite Urine Negative (Negative); Protein Urine Negative (Negative)
[2023-01-16 00:14] LABS: Amphetamine Screen Urine Negative (Negative); Barbiturate Screen Urine Negative (Negative); Benzodiazepines Screen Urine Negative (Negative); Cannabinoid Screen Urine Negative (Negative); Cocaine Screen Urine Negative (Negative); Methadone Screen Urine Negative (Negative); Methamphetamines Screen Urine Negative (Negative); Opiate Screen Urine Negative (Negative); Oxycodone Screen Urine Negative (Negative); Phencyclidine Screen Urine Negative (Negative); Tricyclic Antidepressant Urine Negative (Negative)
[2023-01-16 00:19] LABS: Bacteria Urine Few; RBC Urine 0-2 (0-2); Squamous Epithelial Cell Urine Few (None-Few)
[2023-01-16 00:30] VITALS: PULSE 102; O2SAT 94
[2023-01-16 00:31] VITALS: BP 129/99; PULSE 101; O2SAT 91
== END 2023-01-16 01:17 | disposition home or self-care (01) ==
PROVIDERS: Emergency Provider Family Medicine; PCP Family Medicine
DX: J45.901 Unspecified asthma with (acute) exacerbation (principal); R20.9 Unspecified disturbances of skin sensation
CPT/HCPCS: 36415; 70450; 80048; 80076; 80306; 81001; 85025; 86140; 87086; 93005; 94640; 96361; 96374; 99284; 99291; J2060; J2930; J7030

== ENCOUNTER 2023-01-29 19:45 | Outpatient (CLI) | payer MEDICAID, SELFPAY | END 2023-01-29 19:46 | disposition home or self-care (01) | LOC: AMB 01-31 16:42 | PROVIDERS: PCP Family Medicine; Visit Provider Student in an Organized Health Care Education/Training Program | DX: R53.1 Weakness (principal); R06.02 Shortness of breath | CPT/HCPCS: A0425; A0427 ==

== ENCOUNTER 2023-01-29 20:06 | Inpatient (IN) | payer MEDICARE, SELFPAY ==
[2023-01-29] VITALS (15 sets, daily range): BP systolic 113–117; BP diastolic 75–92; PULSE 96–107; RESP 40; TEMP 36.7–36.8; O2SAT 84–94; BMI 37.1
--- NOTE | 2023-01-29 20:25 | ED.GENADULT ---
HPI - General Adult General Chief complaint: Shortness of Breath/Dyspnea Stated complaint: Shortness of breath Time Seen by Provider: 01/29/23 20:23 History of Present Illness HPI narrative: Patient with asthma like exacerbation using nebulizers all day for treatment as well as increased lower extremity swelling. Was having some reported chest pain in the EMS truck so 12 lead done with NSR. Seen here before for similiar symptoms and treatment was effective per her report. Oxygen saturations at 85% room air, 2 L NC applied. 47-year-old woman presenting to the emergency department via EMS with increased shortness of breath and chest pressure. Noted to have sats of 85% on room air and initiated on nasal cannula oxygen. Does have a history of asthma. Reports last pulmonary function testing probably about July of this year. Does see [place] [facility]. 3-1/2 hours ago was last nebulization at home. I believe received another nebulization with EMS EN route. She has been increasingly short of breath in particular over the last 2 days. [place] baseline oxygen saturations off oxygen she would report between 88-92%. On a good day might get as high as 94%. Unusually is also swelling in the lower extremities recently. No fevers. Not really coughing. Related Data Home Medications Medication Instructions Recorded Confirmed albuterol sulfate 90 mcg/actuation 2 puff inhalation Q4H PRN 11/30/21 01/15/23 aerosol inhaler ipratropium 0.5 mg-albuterol 3 mg 3 ml inhalation Q6H PRN 11/30/21 01/15/23 (2.5 mg base)/3 mL nebulization soln levothyroxine 200 mcg tablet 150 mcg PO DAILY 11/30/21 01/15/23 mirabegron 50 mg tablet,extended 50 mg PO Q24H 11/30/21 01/15/23 release 24 hr (Myrbetriq) montelukast 10 mg tablet 10 mg PO HS 11/30/21 01/15/23 omeprazole 20 mg capsule,delayed 40 mg PO QDAY 02/26/22 01/15/23 release levetiracetam 750 mg tablet 750 mg PO BID 11/25/22 01/15/23 (Keppra) solifenacin 10 mg tablet 10 mg PO DAILY 11/25/22 01/15/23 Previous Rx's Medication Instructions Recorded paroxetine HCl 40 mg tablet 40 mg PO HS #30 tabs 03/13/22 ipratropium 0.5 mg-albuterol 3 mg 3 ml inhalation QID PRN shortness 01/16/23 (2.5 mg base)/3 mL nebulization of breath or wheezing #90 mL soln Allergies Allergy/AdvReac Type Severity Reaction Status Date / Time azithromycin Allergy Intermediate Bloody Verified 01/29/23 23:10 Stools latex Allergy Intermediate Rash Verified 01/29/23 23:10 oxycodone Allergy Intermediate Agitated Verified 01/29/23 23:10 scopolamine Allergy Intermediate Tremors Verified 01/29/23 23:10 basil Allergy Rash Verified 01/29/23 23:10 acetaminophen [From Percocet] AdvReac Confusion Verified 01/29/23 23:10 Glitter Allergy Rash Uncoded 01/29/23 23:10 Review of Systems Status of ROS: Reports: 6 or more systems reviewed and unremarkable except as noted in History and below [facility] Medical History 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 - Unspecified convulsions (ICD-10) Anxiety ?F41.9 - Anxiety disorder, unspecified (ICD-10) Sinus infection ?J32.9 - Chronic sinusitis, unspecified (ICD-10) RODRICK (obstructive sleep apnea) ?G47.33 - Obstructive sleep apnea (adult) (pediatric) (ICD-10) ADHD ?F90.9 - Attention-deficit hyperactivity disorder, unspecified type (ICD-10) GERD (gastroesophageal reflux disease) ?K21.9 - Gastro-esophageal reflux disease without esophagitis (ICD-10) Hyperthyroidism ?E05.90 - Thyrotoxicosis, unspecified without thyrotoxic crisis or storm (ICD-10) Hydrocephalus ?G91.9 - Hydrocephalus, unspecified (ICD-10) Hyperlipidemia ?E78.5 - Hyperlipidemia, unspecified (ICD-10) Anxiety and depression ?F41.9 - Anxiety disorder, unspecified (ICD-10) ?F32.A - Depression, unspecified (ICD-10) Asthma ?J45.909 - Unspecified asthma, uncomplicated (ICD-10) Surgical History No significant past surgical history Social History Smoking Status: Never smoker Do you use any of these nicotine containing products: None Second hand tobacco smoke exposure: No How often do you have a drink containing alcohol: never How often do you have six or more drinks on one occasion: Never AUDIT-C Alcohol total score: 0 Non-prescribed substance use: denies use service: No Exam Narrative: Exam Narrative: Very pleasant. Mildly labored in her breathing. Trace end-expiratory wheeze intermittently. Lungs though do have some hang dex per [place] crepitus on the right side along with some trace wheeze. Cranial nerves 2-12 intact though with right eye amblyopia. Skin is warm and dry. Numerous scratches/excoriations over the right forearm with surrounding mild erythema not cellulitic that she says is from her CT-not a new experience. Some mild erythema in a patch on her left lower anterior tibia as well also from the CT. There is a little over 1+ pitting edema bilateral lower extremities from 3rd tibia through feet. Generally well perfused. Heart in an elevated rate and regular rhythm. Distant. Abdomen is overweight soft and nontender. Const: Vital Signs, click to edit/add: Vital Signs - 24 hr 01/29/23 20:15 01/29/23 21:12 01/29/23 21:15 Temperature 98.0 F Pulse Rate 99 98 Pulse Rate [Right Pulse Oximeter] 103 H Respiratory Rate 40 H Blood Pressure Blood Pressure [Ri ght Upper Arm] 113/75 Pulse Oximetry 94 94 91 Oxygen Delivery Me thod Nasal Cannula Oxygen Flow Rate 01/29/23 21:30 01/29/23 21:45 01/29/23 22:00 Temperature Pulse Rate 97 101 H 97 Pulse Rate [Right Pulse Oximeter] Respiratory Rate Blood Pressure Blood Pressure [Ri ght Upper Arm] Pulse Oximetry 94 94 94 Oxygen Delivery Me thod Oxygen Flow Rate 01/29/23 22:13 01/29/23 22:13 01/29/23 22:14 Temperature 98.3 F Pulse Rate 96 97 Pulse Rate [Right Pulse Oximeter] Respiratory Rate Blood Pressure 117/92 H Blood Pressure [Ri ght Upper Arm] Pulse Oximetry 93 93 Oxygen Delivery Me thod Oxygen Flow Rate 01/29/23 22:15 01/29/23 22:16 01/29/23 22:30 Temperature Pulse Rate 97 96 Pulse Rate [Right Pulse Oximeter] Respiratory Rate Blood Pressure Blood Pressure [Ri ght Upper Arm] Pulse Oximetry 93 92 93 Oxygen Delivery Me thod Nasal Cannula Oxygen Flow Rate 1 01/29/23 22:46 01/29/23 23:07 01/29/23 23:40 Temperature Pulse Rate 103 H 105 H 107 H Pulse Rate [Right Pulse Oximeter] Respiratory Rate Blood Pressure Blood Pressure [Ri ght Upper Arm] Pulse Oximetry 84 L 89 92 Oxygen Delivery Me thod Oxygen Flow Rate 01/29/23 23:45 01/30/23 00:02 01/30/23 00:15 Temperature Pulse Rate 101 H 110 H 107 H Pulse Rate [Right Pulse Oximeter] Respiratory Rate Blood Pressure Blood Pressure [Ri ght Upper Arm] Pulse Oximetry 92 90 95 Oxygen Delivery Me thod Oxygen Flow Rate 01/30/23 00:30 01/30/23 00:45 01/30/23 01:00 Temperature Pulse Rate 121 H 108 H 122 H Pulse Rate [Right Pulse Oximeter] Respiratory Rate Blood Pressure Blood Pressure [Ri ght Upper Arm] Pulse Oximetry 91 93 86 L Oxygen Delivery Me thod Oxygen Flow Rate 01/30/23 01:15 01/30/23 01:30 01/30/23 01:54 Temperature Pulse Rate 110 H 112 H Pulse Rate [Right Pulse Oximeter] Respiratory Rate 24 Blood Pressure Blood Pressure [Ri ght Upper Arm] Pulse Oximetry 88 88 84 L Oxygen Delivery Me thod Oxygen Flow Rate 01/30/23 02:00 01/30/23 02:15 01/30/23 02:30 Temperature Pulse Rate 100 129 H 117 H Pulse Rate [Right Pulse Oximeter] Respiratory Rate 30 H Blood Pressure Blood Pressure [Ri ght Upper Arm] Pulse Oximetry 85 L 87 L 88 Oxygen Delivery Me thod Oxygen Flow Rate 01/30/23 02:45 01/30/23 03:00 01/30/23 03:15 Temperature Pulse Rate 119 H 108 H 109 H Pulse Rate [Right Pulse Oximeter] Respiratory Rate Blood Pressure Blood Pressure [Ri ght Upper Arm] Pulse Oximetry 89 90 90 Oxygen Delivery Me thod Oxygen Flow Rate 01/30/23 03:30 01/30/23 03:45 01/30/23 04:04 Temperature Pulse Rate 109 H 110 H Pulse Rate [Right Pulse Oximeter] Respiratory Rate Blood Pressure Blood Pressure [Ri ght Upper Arm] Pulse Oximetry 91 91 85 L Oxygen Delivery Me thod Oxygen Flow Rate 01/30/23 04:59 01/30/23 05:00 01/30/23 05:15 Temperature Pulse Rate 103 H Pulse Rate [Right Pulse Oximeter] Respiratory Rate Blood Pressure Blood Pressure [Ri ght Upper Arm] Pulse Oximetry 83 L 84 L 96 Oxygen Delivery Me thod Oxygen Flow Rate 01/30/23 05:30 01/30/23 05:45 01/30/23 06:00 Temperature Pulse Rate 105 H 106 H 103 H Pulse Rate [Right Pulse Oximeter] Respiratory Rate Blood Pressure Blood Pressure [Ri ght Upper Arm] Pulse Oximetry 93 90 91 Oxygen Delivery Me thod Oxygen Flow Rate 01/30/23 06:15 01/30/23 06:30 01/30/23 06:45 Temperature Pulse Rate 102 H 101 H 101 H Pulse Rate [Right Pulse Oximeter] Respiratory Rate Blood Pressure Blood Pressure [Ri ght Upper Arm] Pulse Oximetry 91 92 92 Oxygen Delivery Me thod Oxygen Flow Rate 01/30/23 07:00 01/30/23 07:21 01/30/23 07:23 Temperature Pulse Rate 105 H 120 H 114 H Pulse Rate [Right Pulse Oximeter] Respiratory Rate Blood Pressure 122/93 H Blood Pressure [Ri ght Upper Arm] Pulse Oximetry 95 81 L 89 Oxygen Delivery Me thod Oxygen Flow Rate 01/30/23 07:30 01/30/23 07:45 01/30/23 08:00 Temperature Pulse Rate 106 H 108 H 114 H Pulse Rate [Right Pulse Oximeter] Respiratory Rate Blood Pressure Blood Pressure [Ri ght Upper Arm] Pulse Oximetry 89 89 86 L Oxygen Delivery Me thod Oxygen Flow Rate 01/30/23 08:15 01/30/23 08:30 01/30/23 08:49 Temperature Pulse Rate 121 H 115 H 127 H Pulse Rate [Right Pulse Oximeter] Respiratory Rate 27 H Blood Pressure Blood Pressure [Ri ght Upper Arm] Pulse Oximetry 88 89 84 L Oxygen Delivery Me thod Nasal Cannula Oxygen Flow Rate 1 01/30/23 09:00 Temperature Pulse Rate 113 H Pulse Rate [Right Pulse Oximeter] Respiratory Rate Blood Pressure Blood Pressure [Ri ght Upper Arm] Pulse Oximetry 91 Oxygen Delivery Me thod Oxygen Flow Rate Documenting provider has reviewed patient's vital signs: yes Course Vital Signs Vital signs: Initial Vital Signs Temperature 98.0 F 01/29/23 20:15 Temperature Source Temporal Artery Scan 01/29/23 20:15 Pulse Rate 103 H 01/29/23 20:15 Pulse Rhythm Regular 01/29/23 20:15 Respiratory Rate 40 H 01/29/23 20:15 Blood Pressure 113/75 01/29/23 20:15 Blood Pressure Mean 87 01/29/23 20:15 Blood Pressure Position Sitting 01/29/23 20:15 Pulse Oximetry 94 01/29/23 20:15 Oxygen Delivery Method Nasal Cannula 01/29/23 20:15 Vital Signs Temperature 98.0 F 01/29/23 20:15 Pulse Rate 103 H 01/29/23 20:15 Respiratory Rate 40 H 01/29/23 20:15 Blood Pressure 113/75 01/29/23 20:15 Pulse Oximetry 94 01/29/23 20:15 Oxygen Delivery Method Nasal Cannula 01/29/23 20:15 Temperature 98.3 F 01/29/23 22:13 Pulse Rate 113 H 01/30/23 09:00 Respiratory Rate 27 H 01/30/23 08:49 Blood Pressure 122/93 H 01/30/23 07:23 Pulse Oximetry 91 01/30/23 09:00 Oxygen Delivery Method Nasal Cannula 01/30/23 08:49 Oxygen Flow Rate 1 01/30/23 08:49 Medical Decision Making MDM Narrative Medical decision making narrative: Underlying history of anxiety often drives asthma exacerbations per what she has told me in prior visits. Would describe herself is anxious now and does not feel she needs any medication for this. There has been no fever but certainly could be pneumonia. Possible undiagnosed or evaluated heart failure? Pulmonary embolus? Pneumothorax? Ischemic cardiovascular event? History of oxygen support at home but was discontinued. Pending chest x-ray labs. Will hold on nebulization at the moment. Probably worsening asthma exacerbation.? Will evaluate for infectious etiology i.e. pneumonia.? New swelling in her legs prompts further cardiac evaluation as well.? D-dimer is elevated at 1.04.? This is not terribly elevated but certainly is 4 times higher than prior review of records.? She does have some inflammation on skin and elevated CRP which might be driving this.? White count is mildly elevated.? Chest x-ray reviewed by me looks to be without acute airspace disease. I also do not appreciate much in the way of cardiomegaly. I do not see prior chest CT recently.? She does also report having had about 3 of her pseudoseizures since we last spoke.? Nursing has been attending.? She says she feels tired now.? In my experience with [place], anxiety tends to drive the pseudoseizures.? I offered lorazepam at this time she accepts.? CTA chest does not show pulmonary embolus nor pneumonia. I have reviewed images. Radiology over-read IMPRESSION: 1. No evidence of pulmonary embolism. 2. Mosaic attenuation, similar to prior, likely reflecting air trapping. An infectious/inflammatory process or edema would be less likely differential considerations. Deeper/older review of records am able to find prior chest CT was actually done for elevated D-dimer though not as high as we see here today. Negative for pulmonary embolus at that time. We discussed saline nebs which she reports does not usually help her. Treated with DuoNeb and Solu-Medrol. I also see a history of lower extremity edema bilateral in problem list. ProBNP has been a little over 800 before which is higher than 680 that is here today. In March of 2020 there is an echocardiogram noting normal left ventricular size, moderately increased wall thickness, normal global systolic function, with a calculated EF of 62%. Have turned down oxygen to about half a L via nasal cannula. She is still labored in her breathing but says she is breathing as she always does sitting on her couch watching TV. Satting 87-88%. Feels well enough she says. She had a sandwich. Seems to have little more energy. I return to wrap her legs. Place Stew wraps on both legs covered by [place]an. She does have home health and home nurse visit otherwise totaling 3 visits per week might be able to assist her with applying compression. She jokes that her cat will help her. I am concerned about a labored breathing is but again she is noting that she is near baseline. I do however offer admission. She is tired and anticipates resting and will let me know if she feels she needs to stay or go. If departing I would anticipate of longer course of prednisone and taper. She does rest here.? In sleep sats persistently drifting into mid 70s on 1 L. Given another albuterol nebulization. Does have diagnosis of sleep apnea. And uses CPAP at night. Will move toward admission.? May need further cardiac evaluation.? Would benefit from RT.? Possibly home oxygen. Paged overnight hospitalist but have not yet heard back. It is close to time where RT available in house. Have asked them to assess as awake now and oxygenating I think near baseline. Their opinion is that she may be a little wet. This has been considered but focused treatment on apparent reactive airway symptoms. Will reassess after 40 mg of IV Lasix. May be able to be discharged. RT is evaluating whether not would be at candidate for oxygen. Have spoken briefly to our hospitalist anticipating call back. Reassessing is still quite tachypneic, labored in breathing especially so with even minor exertion oxygenating then on 1 L of nasal cannula at 80% or less. Lab Data Lab results reviewed: Yes I reviewed the patient's lab results Labs: Lab Results 01/29/23 01/29/23 Range/Units 20:38 21:00 WBC 12.79 H (4.50-11.00) K/uL RBC 4.30 (4.00-5.20) m/uL Hgb 12.5 (12.0-16.0) gm/dL Hct 39.7 (33.0-51.0) % MCV 92 (80-100) fL MCH 29 (26-34) pg MCHC 32 (32-36) gm/dL RDW Coeff of Tomy 14.2 (11.5-15.5) % Plt Count 221 (140-440) K/uL Neut % (Auto) 76.3 H (42.0-72.0) % Lymph % (Auto) 14.5 L (20-44) % [place] % (Auto) 5.9 (0.0-11.0) % Eos % (Auto) 2.1 (0.0-7.0) % Baso % (Auto) 0.4 (0.0-3.0) % Neut # (Auto) 9.80 H (1.7-7.0) K/uL Lymph # (Auto) 1.90 (0.90-2.90) K/uL [place] # (Auto) 0.80 (0.00-0.90) K/UL Eos # (Auto) 0.30 (0.00-0.50) K/uL Baso # (Auto) 0.10 (0.00-0.30) K/uL Abs Immat Gran (auto) 0.10 (0.00-0.30) K/uL Imm/Tot Granulo (auto) 0.8 % D-Dimer Quant (PE/DVT) 1.04 H (0.00-0.50) ug/ml VBG pH 7.405 (7.32-7.43) VBG pCO2 48 (40-50) mmHG VBG pO2 85.0 H (25-47) mmHG VBG HCO3 30 H (21-28) mmol/L Sodium 137 (135-149) mmol/L Potassium 4.0 (3.6-5.1) mmol/L Chloride 102 (96-114) mmol/L Carbon Dioxide 30 (20-32) mmol/L Anion Gap 5 L (7-15) mEq/L BUN 12 (5-24) mg/dL Creatinine 0.7 (0.5-1.5) mg/dL Estimated Creat Clear 72.90 Estimated GFR 109 ml/min Glucose 110 (60-115) mg/dL Calcium 9.5 (8.4-10.6) mg/dL Total Bilirubin 0.6 (0.1-1.5) mg/dL Direct Bilirubin 0.2 (0.0-0.5) mg/dL AST 33 (12-35) U/L ALT 51 H (4-35) U/L Alkaline Phosphatase 102 (40-150) U/L Troponin I < 0.01 L (0.01-0.04) ng/mL C-Reactive Protein 2.4 H (0.5-1.0) mg/dL NT-Pro-B Natriuret Pep 677 pg/mL Total Protein 7.3 (6.0-8.3) g/dL Albumin 3.9 (3.3-5.0) g/dL TSH 0.045 L (0.270-4.20) uIU/mL SARS-CoV-2 (PCR) Negative SARS-CoV-2 (Negative) Influenza Type A (PCR) Negative PCR FLU A (Negative) Influenza Type B (PCR) Negative PCR FLU B (Negative) RSV (PCR) Negative PCR RSV (Negative) POC Troponin I 0.01 (0.01-0.04) ng/ml ECG Data Attestation: I personally reviewed and interpreted this ECG as follows: (Normal sinus rhythm. Rate of 95. Agree with low voltage. No acute ischemic changes.) Discharge Plan Discharge Clinical Impression: Asthma exacerbation, Respiratory failure, Peripheral edema Patient Disposition: Admitted As Observation Condition: Stable
--- NOTE | 2023-01-29 20:38 | CRLHL7_ITS ---
For Patients: As a result of the Century Cures Act, medical imaging exams and procedure reports are released immediately into your electronic medical record. You may view this report before your referring provider. If you have questions, please contact your health care provider. INDICATION: Chest pain, lower extremity edema. TECHNIQUE: Chest 2 views. COMPARISON: 11/09/2022. FINDINGS: Cardiovascular and mediastinum: Heart size and vasculature are normal in caliber and appearance. Lungs and pleural spaces: Lungs are clear. No sign of infiltrate or mass. No sign of pleural effusion. No pneumothorax. Bones and soft tissues: No significant findings. IMPRESSION: No acute cardiopulmonary abnormality. Dictated by Hank Broderick MD @ 01/29/2023 9:31:57 PM (Electronically Signed)
[2023-01-29 21:12] LABS: HCO3 VBG 30 mmol/L (21-28); PCO2 VBG 48 mmHG (40-50); pH VBG 7.405 (7.32-7.43)
[2023-01-29 21:14] LABS: Basophils Percent Auto 0.4 % (0.0-3.0); Eosinophils Percent Auto 2.1 % (0.0-7.0); Hematocrit 39.7 % (33.0-51.0); Hemoglobin* 12.5 gm/dL (12.0-16.0); Immature Granulocytes Pct Auto 0.8 %; Lymphocytes Percent Auto 14.5 % (20-44); Mean Corpuscular HGB Conc 32 gm/dL (32-36); Mean Corpuscular Hemoglobin 29 pg (26-34); Mean Corpuscular Volume 92 fL (80-100); Monocytes Percent Auto 5.9 % (0.0-11.0); Neutrophils Percent Auto 76.3 % (42.0-72.0); Platelet Count* 221 K/uL (140-440); RDW Coefficient of Variation % 14.2 % (11.5-15.5); White Blood Count* 12.79 K/uL (4.50-11.00)
[2023-01-29 21:18] LABS: Troponin, Point-of-Care* 0.01 ng/ml (0.01-0.04)
[2023-01-29 21:18] LABS: Slide Review Reflex No
[2023-01-29 21:28] LABS: Albumin* 3.9 g/dL (3.3-5.0); Chloride* 102 mmol/L (96-114)
[2023-01-29 21:29] LABS: Sodium* 137 mmol/L (135-149)
[2023-01-29 21:31] LABS: Creatinine* 0.7 mg/dL (0.5-1.5); Estimated Glomerular Filt Rate 109 ml/min
[2023-01-29 21:32] LABS: Alanine Aminotransferase* 51 U/L (4-35); Alkaline Phosphatase* 102 U/L (40-150); Anion Gap 5 mEq/L (7-15); Aspartate Amino Transferase* 33 U/L (12-35); Bilirubin Direct* 0.2 mg/dL (0.0-0.5); Bilirubin Total* 0.6 mg/dL (0.1-1.5); Blood Urea Nitrogen* 12 mg/dL (5-24); Calcium* 9.5 mg/dL (8.4-10.6); Carbon Dioxide* 30 mmol/L (20-32); D Dimer Quantitative* 1.04 ug/ml (0.00-0.50); Glucose* 110 mg/dL (60-115); Total Protein* 7.3 g/dL (6.0-8.3)
[2023-01-29 21:35] LABS: C Reactive Protein* 2.4 mg/dL (0.5-1.0)
[2023-01-29 21:44] LABS: NT Pro B Type NatriureticPept* 677 pg/mL; Troponin I* < 0.01 ng/mL (0.01-0.04)
[2023-01-29 21:51] LABS: PCR FLU A Negative PCR FLU A (Negative); PCR FLU B Negative PCR FLU B (Negative); PCR RSV Negative PCR RSV (Negative)
[2023-01-29 21:52] LABS: SARS PCR* Negative SARS-CoV-2 (Negative)
[2023-01-29] MEDS: METHYLPREDNISOLONE SOD SUCC 62.5 MG/ML (125) 93.75 MG IVP (22:11)
--- NOTE | 2023-01-29 22:21 | ED.NURSE ---
Patient put her call light on stating she is having a pseudoseizure x2. Please see previous notes on this diagnosis. Patient on cameras and no large scale pseudoseizure activity noted. Vital signs are stable.
--- NOTE | 2023-01-29 22:57 | ED.GENADULT ---
HPI - General Adult General Chief complaint: Shortness of Breath/Dyspnea Stated complaint: Shortness of breath Time Seen by Provider: 01/29/23 20:23 History of Present Illness HPI narrative: Patient with asthma like exacerbation using nebulizers all day for treatment as well as increased lower extremity swelling. Was having some reported chest pain in the EMS truck so 12 lead done with NSR. Seen here before for similiar symptoms and treatment was effective per her report. Oxygen saturations at 85% room air, 2 L NC applied. 47-year-old woman presenting to the emergency department via EMS with increased shortness of breath and chest pressure.? Noted to have sats of 85% on room air initiated on nasal cannula oxygen.? Does have a history of asthma.? Reports last pulmonary function testing probably about July of this year.? Does see [facility].? 3-1/2 hours ago was last nebulization at home.? I believe received another nebulization with EMS EN route.? She has been increasingly short of breath in particular over the last 2 days.? Her baseline oxygen saturations off oxygen she would report between 88-92%.? On a good day might get as high as 94%.? Unusually is also swelling in the lower extremities recently.? No fevers.? Not really coughing.? Not describing orthopnea. Related Data Home Medications Medication Instructions Recorded Confirmed albuterol sulfate 90 mcg/actuation 2 puff inhalation Q4H PRN 11/30/21 01/30/23 aerosol inhaler mirabegron 50 mg tablet,extended 50 mg PO DAILY 11/30/21 01/30/23 release 24 hr (Myrbetriq) montelukast 10 mg tablet 10 mg PO HS 11/30/21 01/30/23 omeprazole 20 mg capsule,delayed 40 mg PO DAILY 02/26/22 01/30/23 release levetiracetam 750 mg tablet 750 mg PO BID 11/25/22 01/30/23 (Keppra) solifenacin 10 mg tablet 10 mg PO DAILY 11/25/22 01/30/23 cholecalciferol (vitamin D3) 50 50 mcg PO DAILY 01/30/23 01/30/23 mcg (2,000 unit) capsule levothyroxine 125 mcg tablet 125 mcg PO QAM 01/30/23 01/30/23 paroxetine HCl 40 mg tablet 40 mg PO DAILY 01/30/23 01/30/23 terbinafine HCl 1 % topical cream applic topical BID 02/01/23 Previous Rx's Medication Instructions Recorded albuterol sulfate 2.5 mg/3 mL 2.5 mg (3 mL) inhalation Q8H PRN 02/02/23 (0.083 %) solution for nebulization #1 mL budesonide-formoterol HFA 160 2 puff inhalation BID #1 g 02/02/23 mcg-4.5 mcg/actuation aerosol inhaler (Symbicort) furosemide 40 mg tablet 40 mg PO DAILY #30 tabs 02/02/23 ipratropium 0.5 mg-albuterol 3 mg 3 ml inhalation Q6-8H PRN #90 mL 02/02/23 (2.5 mg base)/3 mL nebulization soln potassium chloride 10 mEq 20 meq (2 x 10 mEq) PO DAILY #60 02/02/23 capsule,extended release caps prednisone 20 mg tablet 40 mg (2 x 20 mg) PO DAILYWM #2 02/02/23 tabs tiotropium bromide 2.5 2 puff inhalation DAILY #1 g 02/02/23 mcg/actuation mist for inhalation (Spiriva Respimat) Allergies Allergy/AdvReac Type Severity Reaction Status Date / Time azithromycin Allergy Intermediate Bloody Verified 01/29/23 23:10 Stools latex Allergy Intermediate Rash Verified 01/29/23 23:10 oxycodone Allergy Intermediate Agitated Verified 01/29/23 23:10 scopolamine Allergy Intermediate Tremors Verified 01/29/23 23:10 basil Allergy Rash Verified 01/29/23 23:10 acetaminophen [From Percocet] AdvReac Confusion Verified 01/29/23 23:10 Review of Systems Status of ROS: Reports: 6 or more systems reviewed and unremarkable except as noted in History and below [facility] Medical History (Updated 02/06/23 @ 00:01 by Background Parth) Hypothyroidism ?E03.9 - Hypothyroidism, unspecified (ICD-10) Acute and chronic respiratory failure with hypoxia ?J96.21 - Acute and chronic respiratory failure with hypoxia (ICD-10) 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 - Unspecified convulsions (ICD-10) RODRICK (obstructive sleep apnea) ?G47.33 - Obstructive sleep apnea (adult) (pediatric) (ICD-10) ADHD ?F90.9 - Attention-deficit hyperactivity disorder, unspecified type (ICD-10) Hyperthyroidism ?E05.90 - Thyrotoxicosis, unspecified without thyrotoxic crisis or storm (ICD-10) Hydrocephalus ?G91.9 - Hydrocephalus, unspecified (ICD-10) Hyperlipidemia ?E78.5 - Hyperlipidemia, unspecified (ICD-10) Anxiety and depression ?F41.9 - Anxiety disorder, unspecified (ICD-10) ?F32.A - Depression, unspecified (ICD-10) Asthma ?J45.909 - Unspecified asthma, uncomplicated (ICD-10) Surgical History History of ear surgery ?Z98.890 - Other specified postprocedural states (ICD-10) History of strabismus surgery ?Z98.890 - Other specified postprocedural states (ICD-10) Social History (Updated 01/30/23 @ 11:15 by Meg Moore MD) Narrative: on disability since 2009; lives alone with her cat. nonsmoker, no drugs, no significant tobacco history adopted, her two adopted aunts are her family contacts. What is your current living situation?: I presently have a place to live Problems where you live: no known problems Problems where you live details: None In the past 12 months, utilities in danger of being shut off: no In past 12 months, lack of transportation kept you from medical appts, meetings, work, or getting things needed for daily living: no In the past 12 mos, have been you worried that your food would run out before you had money to buy more?: never true In the past 12 mos, the food you bought just didn't last and you didn't have money to buy more?: never true Highest level of school completed/degree received: Associate degree: academic program Smoking Status: Never smoker Do you use any of these nicotine containing products: None Second hand tobacco smoke exposure: No How often do you have a drink containing alcohol: never How often do you have six or more drinks on one occasion: Never AUDIT-C Alcohol total score: 0 Non-prescribed substance use: denies use Caffeine: Yes (Pop ocassionally) How often does anyone, including family, friends and others, physically hurt you: never How often does anyone, including family, friends and others, insult or talk down to you: never How often does anyone, including family, friends and others, threaten you with harm: never How often does anyone, including family, friends and others, scream or curse at you: never service: No Exam Narrative: Exam Narrative: Very pleasant.? Mildly labored in her breathing.? Trace end-expiratory wheeze intermittently.? Lungs though do have some and expiratory crepitus on the right side along with some trace wheeze.? Cranial nerves 2-12 intact the with right eye strabismus.? Skin is warm and dry.? Numerous scratches/excoriations over the right forearm with surrounding mild erythema, not cellulitic that she says is from her CT; not in experience.? Some mild erythema in a patch on her left lower anterior tibia as well also from the CT.? There is a little over 1+ pitting edema bilateral lower extremities from upper 3rd tibia through the feet.? Generally well perfused.? Heart in an elevated rate and regular rhythm.? Distant.? Abdomen is overweight soft and nontender. Const: Vital Signs, click to edit/add: Vital Signs - 24 hr 01/29/23 20:15 01/29/23 21:12 01/29/23 21:15 Temperature 98.0 F Pulse Rate 99 98 Pulse Rate [Right Pulse Oximeter] 103 H Respiratory Rate 40 H Blood Pressure Blood Pressure [Ri ght Upper Arm] 113/75 Pulse Oximetry 94 94 91 Oxygen Delivery Me thod Nasal Cannula Oxygen Flow Rate 01/29/23 21:30 01/29/23 21:45 01/29/23 22:00 Temperature Pulse Rate 97 101 H 97 Pulse Rate [Right Pulse Oximeter] Respiratory Rate Blood Pressure Blood Pressure [Ri ght Upper Arm] Pulse Oximetry 94 94 94 Oxygen Delivery Me thod Oxygen Flow Rate 01/29/23 22:13 01/29/23 22:13 01/29/23 22:14 Temperature 98.3 F Pulse Rate 96 97 Pulse Rate [Right Pulse Oximeter] Respiratory Rate Blood Pressure 117/92 H Blood Pressure [Ri ght Upper Arm] Pulse Oximetry 93 93 Oxygen Delivery Me thod Oxygen Flow Rate 01/29/23 22:15 01/29/23 22:16 01/29/23 22:30 Temperature Pulse Rate 97 96 Pulse Rate [Right Pulse Oximeter] Respiratory Rate Blood Pressure Blood Pressure [Ri ght Upper Arm] Pulse Oximetry 93 92 93 Oxygen Delivery Me thod Nasal Cannula Oxygen Flow Rate 1 01/29/23 22:46 01/29/23 23:07 01/29/23 23:40 Temperature Pulse Rate 103 H 105 H 107 H Pulse Rate [Right Pulse Oximeter] Respiratory Rate Blood Pressure Blood Pressure [Ri ght Upper Arm] Pulse Oximetry 84 L 89 92 Oxygen Delivery Me thod Oxygen Flow Rate 01/29/23 23:45 01/30/23 00:02 01/30/23 00:15 Temperature Pulse Rate 101 H 110 H 107 H Pulse Rate [Right Pulse Oximeter] Respiratory Rate Blood Pressure Blood Pressure [Ri ght Upper Arm] Pulse Oximetry 92 90 95 Oxygen Delivery Me thod Oxygen Flow Rate 01/30/23 00:30 01/30/23 00:45 01/30/23 01:00 Temperature Pulse Rate 121 H 108 H 122 H Pulse Rate [Right Pulse Oximeter] Respiratory Rate Blood Pressure Blood Pressure [Ri ght Upper Arm] Pulse Oximetry 91 93 86 L Oxygen Delivery Me thod Oxygen Flow Rate 01/30/23 01:15 01/30/23 01:30 01/30/23 01:54 Temperature Pulse Rate 110 H 112 H Pulse Rate [Right Pulse Oximeter] Respiratory Rate 24 Blood Pressure Blood Pressure [Ri ght Upper Arm] Pulse Oximetry 88 88 84 L Oxygen Delivery Me thod Oxygen Flow Rate 01/30/23 02:00 01/30/23 02:15 01/30/23 02:30 Temperature Pulse Rate 100 129 H 117 H Pulse Rate [Right Pulse Oximeter] Respiratory Rate 30 H Blood Pressure Blood Pressure [Ri ght Upper Arm] Pulse Oximetry 85 L 87 L 88 Oxygen Delivery Me thod Oxygen Flow Rate 01/30/23 02:45 01/30/23 03:00 01/30/23 03:15 Temperature Pulse Rate 119 H 108 H 109 H Pulse Rate [Right Pulse Oximeter] Respiratory Rate Blood Pressure Blood Pressure [Ri ght Upper Arm] Pulse Oximetry 89 90 90 Oxygen Delivery Me thod Oxygen Flow Rate 01/30/23 03:30 01/30/23 03:45 01/30/23 04:04 Temperature Pulse Rate 109 H 110 H Pulse Rate [Right Pulse Oximeter] Respiratory Rate Blood Pressure Blood Pressure [Ri ght Upper Arm] Pulse Oximetry 91 91 85 L Oxygen Delivery Me thod Oxygen Flow Rate Documenting provider has reviewed patient's vital signs: yes Course Vital Signs Vital signs: Initial Vital Signs Temperature 98.0 F 01/29/23 20:15 Temperature Source Temporal Artery Scan 01/29/23 20:15 Pulse Rate 103 H 01/29/23 20:15 Pulse Rhythm Regular 01/29/23 20:15 Respiratory Rate 40 H 01/29/23 20:15 Blood Pressure 113/75 01/29/23 20:15 Blood Pressure Mean 87 01/29/23 20:15 Blood Pressure Position Sitting 01/29/23 20:15 Pulse Oximetry 94 01/29/23 20:15 Oxygen Delivery Method Nasal Cannula 01/29/23 20:15 Vital Signs Temperature 98.0 F 01/29/23 20:15 Pulse Rate 103 H 01/29/23 20:15 Respiratory Rate 40 H 01/29/23 20:15 Blood Pressure 113/75 01/29/23 20:15 Pulse Oximetry 94 01/29/23 20:15 Oxygen Delivery Method Nasal Cannula 01/29/23 20:15 Temperature 98.0 F 02/02/23 07:00 Pulse Rate 99 02/02/23 07:00 Respiratory Rate 20 02/02/23 07:00 Blood Pressure 136/90 H 02/02/23 07:00 Pulse Oximetry 94 02/02/23 07:00 Oxygen Delivery Method Nasal Cannula 02/02/23 07:00 Oxygen Flow Rate 0.5 02/02/23 07:00 Medical Decision Making MDM Narrative Medical decision making narrative: Probably worsening asthma exacerbation. Will evaluate for infectious etiology i.e. pneumonia. New swelling in her legs prompts further cardiac evaluation as well. D-dimer is elevated at 1.04. This is not terribly elevated but certainly is 4 times higher than prior on review of records. She does have some inflammation or skin and elevated CRP which might be driving this. I did not see prior chest CT. She does also report having had about 3 of her pseudoseizures since we last spoke. Nursing has been attending. She says she feels tired now. In my experience with [facility], anxiety tends to drive these pseudoseizures. I offer lorazepam at this time and she accepts. CTA chest is without pulmonary embolus. Impression 1.? No evidence of pulmonary embolism. 2. Mosaic attenuation, similar to prior, likely reflecting air trapping.? An infectious/inflammatory process or edema would be less likely differential considerations. Deeper/older review of records and able to find prior chest CT was actually done for elevated D-dimer though not as high as we see here today. We discussed saline nebs which she reports does not usually help her. I see history of lower extremity edema bilateral in problem list.? ProBNP has been a little over 800 before which is higher than 680 that is here today.? In March of 2020 there is an echocardiogram noting normal left ventricular size, moderately increased wall thickness, normal global systolic function, with a calculated EF of 62% Have turned down oxygen to about half a L via nasal cannula.? She is still labored in her breathing but says she is breathing as she always does sitting on her couch watching TV.? Satting 87-88%.? Feels well enough she says.? Had a sandwich.? Seems to have a little more energy.? Return to wrap her legs.? Place Stew wraps on both legs covered by [place].? She does have home health and home nurse visit otherwise totaling 3 visits per week might be able to assist her with applying compression.? She jokes that her cat will help her. I am concerned about labored breathing but again she is noting that she is near baseline.? I do offer admission. She is tired and anticipates resting in will let me know if she feels she needs to stay or go.? If departing I would anticipate a longer course of prednisone and taper. She does rest here.? Monitoring shows sats persistently drifting into mid 70s on 1 L. Given another albuterol nebulization. will pursue admission. May need further cardiac workup. RT can weigh in as well. Might benefit from home oxygen. Lab Data Lab results reviewed: Yes I reviewed the patient's lab results Labs: Lab Results 01/29/23 01/29/23 Range/Units 20:38 21:00 WBC 12.79 H (4.50-11.00) K/uL RBC 4.30 (4.00-5.20) m/uL Hgb 12.5 (12.0-16.0) gm/dL Hct 39.7 (33.0-51.0) % MCV 92 (80-100) fL MCH 29 (26-34) pg MCHC 32 (32-36) gm/dL RDW Coeff of Tomy 14.2 (11.5-15.5) % Plt Count 221 (140-440) K/uL Neut % (Auto) 76.3 H (42.0-72.0) % Lymph % (Auto) 14.5 L (20-44) % [place] % (Auto) 5.9 (0.0-11.0) % Eos % (Auto) 2.1 (0.0-7.0) % Baso % (Auto) 0.4 (0.0-3.0) % Neut # (Auto) 9.80 H (1.7-7.0) K/uL Lymph # (Auto) 1.90 (0.90-2.90) K/uL [place] # (Auto) 0.80 (0.00-0.90) K/UL Eos # (Auto) 0.30 (0.00-0.50) K/uL Baso # (Auto) 0.10 (0.00-0.30) K/uL Abs Immat Gran (auto) 0.10 (0.00-0.30) K/uL Imm/Tot Granulo (auto) 0.8 % D-Dimer Quant (PE/DVT) 1.04 H (0.00-0.50) ug/ml VBG pH 7.405 (7.32-7.43) VBG pCO2 48 (40-50) mmHG VBG pO2 85.0 H (25-47) mmHG VBG HCO3 30 H (21-28) mmol/L Sodium 137 (135-149) mmol/L Potassium 4.0 (3.6-5.1) mmol/L Chloride 102 (96-114) mmol/L Carbon Dioxide 30 (20-32) mmol/L Anion Gap 5 L (7-15) mEq/L BUN 12 (5-24) mg/dL Creatinine 0.7 (0.5-1.5) mg/dL Estimated Creat Clear 72.90 Estimated GFR 109 ml/min Glucose 110 (60-115) mg/dL Calcium 9.5 (8.4-10.6) mg/dL Magnesium 2.1 (1.5-2.6) mg/dL Total Bilirubin 0.6 (0.1-1.5) mg/dL Direct Bilirubin 0.2 (0.0-0.5) mg/dL AST 33 (12-35) U/L ALT 51 H (4-35) U/L Alkaline Phosphatase 102 (40-150) U/L Troponin I < 0.01 L (0.01-0.04) ng/mL C-Reactive Protein 2.4 H (0.5-1.0) mg/dL NT-Pro-B Natriuret Pep 677 pg/mL Total Protein 7.3 (6.0-8.3) g/dL Albumin 3.9 (3.3-5.0) g/dL TSH 0.045 L (0.270-4.20) uIU/mL SARS-CoV-2 (PCR) Negative SARS-CoV-2 (Negative) Influenza Type A (PCR) Negative PCR FLU A (Negative) Influenza Type B (PCR) Negative PCR FLU B (Negative) RSV (PCR) Negative PCR RSV (Negative) POC Troponin I 0.01 (0.01-0.04) ng/ml Discharge Plan Discharge Clinical Impression: Asthma exacerbation, Respiratory failure, Peripheral edema Patient Disposition: Admitted As Observation Condition: Stable Activity Level: Activity as Tolerated Discharge Diet: Regular
--- NOTE | 2023-01-29 22:59 | CRLHL7_ITS ---
For Patients: As a result of the Century Cures Act, medical imaging exams and procedure reports are released immediately into your electronic medical record. You may view this report before your referring provider. If you have questions, please contact your health care provider. INDICATION: Dyspnea. TECHNIQUE: CT chest PE was acquired with 95 cc Isovue 370 IV contrast. COMPARISON: Chest radiographs 01/29/2023. CT chest 07/21/2021. FINDINGS: Heart and vasculature: Contrast opacification of the pulmonary arterial tree is adequate. No sign of pulmonary embolism. Heart size is normal. Thoracic aorta and pulmonary artery are normal in caliber. Lungs and pleura: Mosaic attenuation, similar to prior. No suspicious nodules. No pleural effusions, pleural thickening, or pneumothorax. Lymph nodes/mediastinum: No mediastinal, hilar, or axillary adenopathy. Chest wall: No masses. Upper abdomen: No acute or significant findings. Bones: Unremarkable for age. IMPRESSION: 1. No evidence of pulmonary embolism. 2. Mosaic attenuation, similar to prior, likely reflecting air trapping. An infectious/inflammatory process or edema would be less likely differential considerations. Please note that all CT scans at this facility use dose modulation, iterative reconstruction, and/or weight-based dosing when appropriate to reduce radiation dose to as low as reasonably achievable. Dictated by Hank Broderick MD @ 01/30/2023 12:29:59 AM (Electronically Signed)
[2023-01-29 23:14] LABS: Thyroid Stimulating Hormone* 0.045 uIU/mL (0.270-4.20)
[2023-01-30] VITALS (51 sets, daily range): BP systolic 122–140; BP diastolic 74–95; PULSE 100–129; RESP 22–30; TEMP 36.2–36.8; O2SAT 81–96; BMI 57.8
[2023-01-30] MEDS: 0.9 % SODIUM CHLORIDE 500 ML 500 ML IV (00:07)
[2023-01-30] MEDS: LORazepam 2 MG/ML inj 0.5 MG IVP (00:07)
[2023-01-30] MEDS: IPRAT-ALBUT 0.5-2.5 MG/3 ML NEB 1 NEB IH ×4 (00:07→23:32)
[2023-01-30] MEDS: ALBUTEROL SULFATE 2.5 MG/3 ML VIAL.NEB NEB ×2 (05:15→20:02)
[2023-01-30] MEDS: FUROSEMIDE 10 MG/ML inj 40 MG IVP (08:23)
--- NOTE | 2023-01-30 09:03 | ED.NURSE ---
Patient up to the bathroom x2 with wheelchair and O2 via NC at 2L. Patient becomes visibly short of breath with sats at 80% on return to bed. Also notes feeling dizzy with minimal exertion.
--- NOTE | 2023-01-30 10:47 | P.IMHP_ITS ---
Hospitalist- H&P: HPI History of Present Illness Date Seen: 01/31/23 Chief complaint: Shortness of breath Narrative: ADMISSION HISTORY AND PHYSICAL - HOSPITALIST CHIEF COMPLAINT: I am short of breath, again HPI: 47-year-old, Paloma, presents with acute on chronic respiratory distress. rPetty has longstanding asthma, RODRICK, history of COVID and home oxygen use over the last 3 years. Just recently her home oxygen had been discontinued which she continues with CPAP. She has frequent trips to our emergency room for anxiety, pseudoseizures and shortness of breath. She states 3 days ago she began having swelling in her feet, which is usually not a big problem for her. She stated last night more of her pseudoseizures became more evident. She became more short of breath and presented to our ER. While she normally lives at about 88-92% at rest she has been noting this summer dropping down into the low 80s with any minimal effort. She states that she rests or uses a neb to bring her sats back up to 88%. From visiting with Teresita it sounds like things got worse after 2020 when she was diagnosed with COVID and hospitalized for 5 days. At that time she went home on O2. She als has been compliant with CPAP over the last decade and at times needed oxygen bleed in. She does see a [facility] child psychologist. ER COURSE: She has been 13 hours in the ED. she remained on oxygen throughout her stay there. She had a CTA which did not reveal any pulmonary embolus. She eventually had Lasix, steroids. She received nebs throughout her stay. CODE STATUS: FULL CODE EMERGENCY CONTACT PLAN: Lori Childress? Aunt?Rel to [facility]? [phone]?Home Phone? I'VE UPDATED THE PFSH, MEDICATIONS AND ALLERGIES IN THE EXPANSE TABS. INVESTIGATIONS: LABS/MICRO/ECG/IMAGING -vital signs are relevant for no fever, normal blood pressure. -however she has been tachycardic essentially since arrival, 121 is the highest. On the monitor and in her ECG this all appears to be sinus tachycardia. -mild white count noted on her CBC, 12.8 -D-dimer just marginally elevated at 1.04 -VBG done showing a pH that is normal. No CO2 retention. -chemistries are unremarkable, notable for a negative troponin, a very mild bump in her CRP and a suppressed TSH -negative quad screen -CT was largely unremarkable, compared to prior studies. -no PE.-some was a attenuation reflecting either air trapping or potentially some edema. ECG was normal sinus rhythm, no dynamic changes REVIEW OF SYSTEMS: 12-POINT ROS COMPLETED WITH PATIENT AND NEGATIVE UNLESS OTHERWISE STATED IN HPI OR BELOW. PHYSICAL EXAM: CONSTITUTIONAL: CONVERSIVE, GOOD HISTORIAN. A/O. KNOWS SETTING AND CONTEXT. VITAL SIGNS: SEE RECORD. HEENT: NORMOCEPHALIC, ATRAUMATIC. PERRL, EOMI, CONJUNCTIVAE PINK, NO SCLERAL ICTERUS. EARS AND NOSE EXTERNALLY NORMAL. PHARYNX NORMAL. NECK: NO JVD. NO CAROTID BRUIT, NO THYROMEGALY, NO ADENOPATHY. CHEST: Poor inspiratory effort. No wheeze. Mild respiratory distress when I took away her oxygen. HEART: S1 AND S2 NORMAL. NO HARSH MURMURS. EDEMA 2+ MUSCULOSKELETAL: NO GROSS JOINT DEFORMITY OR SWELLING. NEURO: CRANIAL NERVES INTACT. GROSSLY INTACT. NO ASYMMETRIC FINDINGS. SKIN: NO RASHES, PETECHIAE, CONCERNING CHANGES PSYCHIATRIC: EUTHYMIC. ADMIT TO MEDSURG: FLOOR CARE DVT: LOVENOX GI: PO INTAKE TIME SPENT: TODAY I SPENT 75 MINUTES SEEING THE PATIENT, DISCUSSING THE PATIENT WITH ER STAFF, REVIEWING EXPANSE AND EPIC NOTES/DIAGNOSTICS, DISCUSSING THE CARE PLAN WITH OUR CARE TIME THAT INCLUDES SOCIAL WORK, PT/OT, PHARMACY, RT, MCFP AND DOCUMENTING MY IMPRESSIONS AND PLAN IN THE MEDICAL RECORD. [facility] Medical History (Updated 01/31/23 @ 11:10 by Grisel Butler PA-C) Hypothyroidism ?E03.9 - Hypothyroidism, unspecified (ICD-10) Acute and chronic respiratory failure with hypoxia ?J96.21 - Acute and chronic respiratory failure with hypoxia (ICD-10) 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 - Unspecified convulsions (ICD-10) RODRICK (obstructive sleep apnea) ?G47.33 - Obstructive sleep apnea (adult) (pediatric) (ICD-10) ADHD ?F90.9 - Attention-deficit hyperactivity disorder, unspecified type (ICD-10) Hyperthyroidism ?E05.90 - Thyrotoxicosis, unspecified without thyrotoxic crisis or storm (ICD-10) Hydrocephalus ?G91.9 - Hydrocephalus, unspecified (ICD-10) Hyperlipidemia ?E78.5 - Hyperlipidemia, unspecified (ICD-10) Anxiety and depression ?F41.9 - Anxiety disorder, unspecified (ICD-10) ?F32.A - Depression, unspecified (ICD-10) Asthma ?J45.909 - Unspecified asthma, uncomplicated (ICD-10) Surgical History History of ear surgery ?Z98.890 - Other specified postprocedural states (ICD-10) History of strabismus surgery ?Z98.890 - Other specified postprocedural states (ICD-10) Social History (Updated 01/30/23 @ 11:15 by Meg Moore MD) Narrative: on disability since 2009; lives alone with her cat. nonsmoker, no drugs, no significant tobacco history adopted, her two adopted aunts are her family contacts. What is your current living situation?: I presently have a place to live Problems where you live: no known problems Problems where you live details: None In the past 12 months, utilities in danger of being shut off: no In the past 12 mos, have been you worried that your food would run out before you had money to buy more?: never true In the past 12 mos, the food you bought just didn't last and you didn't have money to buy more?: never true Highest level of school completed/degree received: Associate degree: academic program Smoking Status: Never smoker Do you use any of these nicotine containing products: None Second hand tobacco smoke exposure: No How often do you have a drink containing alcohol: never How often do you have six or more drinks on one occasion: Never AUDIT-C Alcohol total score: 0 Non-prescribed substance use: denies use Caffeine: Yes (Pop ocassionally) How often does anyone, including family, friends and others, physically hurt you : never How often does anyone, including family, friends and others, insult or talk down to you: never How often does anyone, including family, friends and others, threaten you with harm: never How often does anyone, including family, friends and others, scream or curse at you: never service: No Meds Home Medications and Allergies Home Medications Medication Instructions Recorded Confirmed Type albuterol sulfate 90 mcg/actuation 2 puff inhalation Q4H PRN 11/30/21 01/30/23 History aerosol inhaler mirabegron 50 mg tablet,extended 50 mg PO DAILY 11/30/21 01/30/23 History release 24 hr (Myrbetriq) montelukast 10 mg tablet 10 mg PO HS 11/30/21 01/30/23 History omeprazole 20 mg capsule,delayed 40 mg PO DAILY 02/26/22 01/30/23 History release levetiracetam 750 mg tablet 750 mg PO BID 11/25/22 01/30/23 History (Keppra) solifenacin 10 mg tablet 10 mg PO DAILY 11/25/22 01/30/23 History albuterol sulfate 2.5 mg/3 mL 2.5 mg inhalation Q8H PRN 01/30/23 01/30/23 History (0.083 %) solution for nebulization budesonide-formoterol HFA 160 2 puff inhalation BID 01/30/23 01/30/23 History mcg-4.5 mcg/actuation aerosol inhaler (Symbicort) cholecalciferol (vitamin D3) 50 50 mcg PO DAILY 01/30/23 01/30/23 History mcg (2,000 unit) capsule levothyroxine 125 mcg tablet 125 mcg PO QAM 01/30/23 01/30/23 History paroxetine HCl 40 mg tablet 40 mg PO DAILY 01/30/23 01/30/23 History tiotropium bromide 2.5 2 puff inhalation DAILY 01/30/23 01/30/23 History mcg/actuation mist for inhalation (Spiriva Respimat) Allergies Allergy/AdvReac Type Severity Reaction Status Date / Time azithromycin Allergy Intermediate Bloody Verified 01/29/23 23:10 Stools latex Allergy Intermediate Rash Verified 01/29/23 23:10 oxycodone Allergy Intermediate Agitated Verified 01/29/23 23:10 scopolamine Allergy Intermediate Tremors Verified 01/29/23 23:10 basil Allergy Rash Verified 01/29/23 23:10 acetaminophen [From Percocet] AdvReac Confusion Verified 01/29/23 23:10 Exam Const: Vital Signs, click to edit/add: Vital Signs - 24 hr 01/29/23 20:15 01/29/23 21:12 01/29/23 21:15 Temperature 98.0 F Pulse Rate 99 98 Pulse Rate [Right Pulse Oximeter] 103 H Respiratory Rate 40 H Blood Pressure Blood Pressure [Ri ght Upper Arm] 113/75 Pulse Oximetry 94 94 91 Oxygen Delivery Me thod Nasal Cannula Oxygen Flow Rate 01/29/23 21:30 01/29/23 21:45 01/29/23 22:00 Temperature Pulse Rate 97 101 H 97 Pulse Rate [Right Pulse Oximeter] Respiratory Rate Blood Pressure Blood Pressure [Ri ght Upper Arm] Pulse Oximetry 94 94 94 Oxygen Delivery Me thod Oxygen Flow Rate 01/29/23 22:13 01/29/23 22:13 01/29/23 22:14 Temperature 98.3 F Pulse Rate 96 97 Pulse Rate [Right Pulse Oximeter] Respiratory Rate Blood Pressure 117/92 H Blood Pressure [Ri ght Upper Arm] Pulse Oximetry 93 93 Oxygen Delivery Me thod Oxygen Flow Rate 01/29/23 22:15 01/29/23 22:16 01/29/23 22:30 Temperature Pulse Rate 97 96 Pulse Rate [Right Pulse Oximeter] Respiratory Rate Blood Pressure Blood Pressure [Ri ght Upper Arm] Pulse Oximetry 93 92 93 Oxygen Delivery Me thod Nasal Cannula Oxygen Flow Rate 1 01/29/23 22:46 01/29/23 23:07 01/29/23 23:40 Temperature Pulse Rate 103 H 105 H 107 H Pulse Rate [Right Pulse Oximeter] Respiratory Rate Blood Pressure Blood Pressure [Ri ght Upper Arm] Pulse Oximetry 84 L 89 92 Oxygen Delivery Me thod Oxygen Flow Rate 01/29/23 23:45 01/30/23 00:02 01/30/23 00:15 Temperature Pulse Rate 101 H 110 H 107 H Pulse Rate [Right Pulse Oximeter] Respiratory Rate Blood Pressure Blood Pressure [Ri ght Upper Arm] Pulse Oximetry 92 90 95 Oxygen Delivery Me thod Oxygen Flow Rate 01/30/23 00:30 01/30/23 00:45 01/30/23 01:00 Temperature Pulse Rate 121 H 108 H 122 H Pulse Rate [Right Pulse Oximeter] Respiratory Rate Blood Pressure Blood Pressure [Ri ght Upper Arm] Pulse Oximetry 91 93 86 L Oxygen Delivery Me thod Oxygen Flow Rate 01/30/23 01:15 01/30/23 01:30 01/30/23 01:54 Temperature Pulse Rate 110 H 112 H Pulse Rate [Right Pulse Oximeter] Respiratory Rate 24 Blood Pressure Blood Pressure [Ri ght Upper Arm] Pulse Oximetry 88 88 84 L Oxygen Delivery Me thod Oxygen Flow Rate 01/30/23 02:00 01/30/23 02:15 01/30/23 02:30 Temperature Pulse Rate 100 129 H 117 H Pulse Rate [Right Pulse Oximeter] Respiratory Rate 30 H Blood Pressure Blood Pressure [Ri ght Upper Arm] Pulse Oximetry 85 L 87 L 88 Oxygen Delivery Me thod Oxygen Flow Rate 01/30/23 02:45 01/30/23 03:00 01/30/23 03:15 Temperature Pulse Rate 119 H 108 H 109 H Pulse Rate [Right Pulse Oximeter] Respiratory Rate Blood Pressure Blood Pressure [Ri ght Upper Arm] Pulse Oximetry 89 90 90 Oxygen Delivery Me thod Oxygen Flow Rate 01/30/23 03:30 01/30/23 03:45 01/30/23 04:04 Temperature Pulse Rate 109 H 110 H Pulse Rate [Right Pulse Oximeter] Respiratory Rate Blood Pressure Blood Pressure [Ri ght Upper Arm] Pulse Oximetry 91 91 85 L Oxygen Delivery Me thod Oxygen Flow Rate 01/30/23 04:59 01/30/23 05:00 01/30/23 05:15 Temperature Pulse Rate 103 H Pulse Rate [Right Pulse Oximeter] Respiratory Rate Blood Pressure Blood Pressure [Ri ght Upper Arm] Pulse Oximetry 83 L 84 L 96 Oxygen Delivery Me thod Oxygen Flow Rate 01/30/23 05:30 01/30/23 05:45 01/30/23 06:00 Temperature Pulse Rate 105 H 106 H 103 H Pulse Rate [Right Pulse Oximeter] Respiratory Rate Blood Pressure Blood Pressure [Ri ght Upper Arm] Pulse Oximetry 93 90 91 Oxygen Delivery Me thod Oxygen Flow Rate 01/30/23 06:15 01/30/23 06:30 01/30/23 06:45 Temperature Pulse Rate 102 H 101 H 101 H Pulse Rate [Right Pulse Oximeter] Respiratory Rate Blood Pressure Blood Pressure [Ri ght Upper Arm] Pulse Oximetry 91 92 92 Oxygen Delivery Me thod Oxygen Flow Rate 01/30/23 07:00 01/30/23 07:21 01/30/23 07:23 Temperature Pulse Rate 105 H 120 H 114 H Pulse Rate [Right Pulse Oximeter] Respiratory Rate Blood Pressure 122/93 H Blood Pressure [Ri ght Upper Arm] Pulse Oximetry 95 81 L 89 Oxygen Delivery Me thod Oxygen Flow Rate 01/30/23 07:30 01/30/23 07:45 01/30/23 08:00 Temperature Pulse Rate 106 H 108 H 114 H Pulse Rate [Right Pulse Oximeter] Respiratory Rate Blood Pressure Blood Pressure [Ri ght Upper Arm] Pulse Oximetry 89 89 86 L Oxygen Delivery Me thod Oxygen Flow Rate 01/30/23 08:15 01/30/23 08:30 01/30/23 08:49 Temperature Pulse Rate 121 H 115 H 127 H Pulse Rate [Right Pulse Oximeter] Respiratory Rate 27 H Blood Pressure Blood Pressure [Ri ght Upper Arm] Pulse Oximetry 88 89 84 L Oxygen Delivery Me thod Nasal Cannula Oxygen Flow Rate 1 01/30/23 09:00 01/30/23 09:15 01/30/23 09:38 Temperature Pulse Rate 113 H 114 H 126 H Pulse Rate [Right Pulse Oximeter] Respiratory Rate Blood Pressure Blood Pressure [Ri ght Upper Arm] Pulse Oximetry 91 89 90 Oxygen Delivery Me thod Oxygen Flow Rate 01/30/23 09:40 01/30/23 09:45 01/30/23 10:00 Temperature Pulse Rate 121 H 114 H 115 H Pulse Rate [Right Pulse Oximeter] Respiratory Rate Blood Pressure 129/95 H Blood Pressure [Ri ght Upper Arm] Pulse Oximetry 94 93 93 Oxygen Delivery Me thod Oxygen Flow Rate 01/30/23 10:15 01/30/23 10:30 Temperature Pulse Rate 114 H 115 H Pulse Rate [Right Pulse Oximeter] Respiratory Rate Blood Pressure Blood Pressure [Ri ght Upper Arm] Pulse Oximetry 90 91 Oxygen Delivery Me thod Oxygen Flow Rate Hospitalist - H&P: Result Labs Labs: Short CBC 01/29/23 Range/Units 21:00 WBC 12.79 H (4.50-11.00) K/uL Hgb 12.5 (12.0-16.0) gm/dL Hct 39.7 (33.0-51.0) % Plt Count 221 (140-440) K/uL BMP 01/29/23 21:00 Sodium 137 Potassium 4.0 Chloride 102 Carbon Dioxide 30 BUN 12 Creatinine 0.7 Glucose 110 Calcium 9.5 Cardiac Enzymes 01/29/23 Range/Units 21:00 Troponin I < 0.01 L (0.01-0.04) ng/mL Liver Function 01/29/23 Range/Units 21:00 Total Bilirubin 0.6 (0.1-1.5) mg/dL Direct Bilirubin 0.2 (0.0-0.5) mg/dL AST 33 (12-35) U/L ALT 51 H (4-35) U/L Alkaline Phosphatase 102 (40-150) U/L Albumin 3.9 (3.3-5.0) g/dL Assessment and Plan Assessment and plan (1) Acute and chronic respiratory failure with hypoxia: Problem comment: -differential includes her history persistent asthma, pulmonary edema, likely infectious, unclear why she is chronically hypoxic, RODRICK/restrictive lung disease -O2 to keep sats greater than 88% -RT for pulmonary support -nebs, home inhalers (add spacer, RT will assist with making sure she's using these appropriately) -echo/cardiac workup -likely will need home O2 and long-term outpatient pulmonary follow-up Status: Acute (2) Peripheral edema: Problem comment: -new problem 3 days prior to admission. -will do a cardiac workup, possibly does lymphedema Status: Acute (3) Asthma: Problem comment: -longstanding, will have RT see her -unsure if she is on best maintenance meds (compliance?) PFTs done in November 2022 -FEV1 0.74, 33% predicted FEV1/FEV% 69 Consistent with severe obstruction. Sees Ngoc Zaidi MD - pulm medicine Status: Acute (4) RODRICK (obstructive sleep apnea): Status: Acute (5) Anxiety and depression: Problem comment: -longstanding, continue home meds Status: Acute (6) Pseudoseizures: Problem comment: -has seen Neurology -apparently more common when stress -will continue home Keppra dosing Status: Acute (7) Hypothyroidism: Problem comment: -TSH was suppressed, will order free T4 and total T3 Status: Acute (8) Hydrocephalus: Problem comment: -apparently congenital and associated with a developmental learning disorder Status: Acute
[2023-01-30 12:08] LABS: Magnesium* 2.1 mg/dL (1.5-2.6)
[2023-01-30 12:31] LABS: Lab Add On Test New Spec Needed
[2023-01-30] MEDS: predniSONE 20 MG TABLET 40 MG PO (12:40)
[2023-01-30 13:28] LABS: Free T4 Free Thyroxine* 1.16 ng/dL (0.70-1.85)
[2023-01-30] MEDS: FUROSEMIDE 40 MG TABLET PO (14:01)
[2023-01-30] MEDS: PERFLUTREN LIPID MICROSPHERES 2 ML VIAL IV (17:00)
[2023-01-30] MEDS: BUDESONIDE 0.5 MG/2ML NEB NEB (20:10)
[2023-01-30] MEDS: ENOXAPARIN 40 MG/0.4 ML INJ SUBCUT (20:10)
[2023-01-30] MEDS: levETIRAcetam 500 MG TABLET 750 MG PO (20:11)
[2023-01-30] MEDS: SODIUM CHLORIDE 0.9 % (FLUSH) 10 ML SYRINGE 5 ML IVF ×2 (20:11→23:34)
[2023-01-30] MEDS: MONTELUKAST 10 MG TABLET PO (20:11)
[2023-01-30] MEDS: ACETAMINOPHEN 325 MG TABLET PO (20:25)
--- NOTE | 2023-01-30 23:17 | PC.NURSE ---
End of shift-- Very pleasant and cooperative, alert and oriented patient. VSS and pt is afebrile. SPO2 maintained >88% on 1L at rest and 2L with exertion. She c/o a headache and was given Tylenol. LS diminished with expiratory wheezes throughout. Pt was given PRN albuterol neb once this shift with stated relief. She was up to the BR with SBA and tolerated it fair. Pt does become very SOB with exertion. Report to PEDRO Thomas.
[2023-01-31] VITALS (7 sets, daily range): BP systolic 107–141; BP diastolic 74–95; PULSE 105–111; RESP 18–26; TEMP 36.3–37; O2SAT 90–93
[2023-01-31] MEDS: IPRAT-ALBUT 0.5-2.5 MG/3 ML NEB 1 NEB IH ×4 (05:06→23:12)
[2023-01-31] MEDS: ONDANSETRON ODT 4 MG TAB PO (06:15)
[2023-01-31] MEDS: OMEPRAZOLE 20 MG CAPSULE DR 40 MG PO (06:17)
[2023-01-31] MEDS: LEVOTHYROXINE 125 MCG TABLET PO (06:17)
[2023-01-31 06:38] LABS: HCO3 VBG 33 mmol/L (21-28); PCO2 VBG 52 mmHG (40-50); PO2 VBG 60.4 mmHG (25-47); pH VBG 7.407 (7.32-7.43)
[2023-01-31 06:43] LABS: Hematocrit 38.9 % (33.0-51.0); Mean Corpuscular HGB Conc 31 gm/dL (32-36); Mean Corpuscular Hemoglobin 29 pg (26-34); Mean Corpuscular Volume 94 fL (80-100); Platelet Count* 234 K/uL (140-440); Red Blood Count 4.13 m/uL (4.00-5.20); White Blood Count* 19.53 K/uL (4.50-11.00)
[2023-01-31 07:03] LABS: Slide Review Reflex No
[2023-01-31 07:14] LABS: Chloride* 100 mmol/L (96-114)
[2023-01-31 07:15] LABS: Albumin* 4.1 g/dL (3.3-5.0); Potassium* 4.1 mmol/L (3.6-5.1); Sodium* 138 mmol/L (135-149)
[2023-01-31 07:17] LABS: Creatinine* 0.7 mg/dL (0.5-1.5); Est. Creatinine Clearance* 175.33; Estimated Glomerular Filt Rate 109 ml/min
[2023-01-31 07:18] LABS: Alanine Aminotransferase* 42 U/L (4-35); Alkaline Phosphatase* 89 U/L (40-150); Anion Gap 6 mEq/L (7-15); Aspartate Amino Transferase* 27 U/L (12-35); Bilirubin Total* 0.5 mg/dL (0.1-1.5); Blood Urea Nitrogen* 21 mg/dL (5-24); Carbon Dioxide* 32 mmol/L (20-32); Glucose* 171 mg/dL (60-115); Total Protein* 7.3 g/dL (6.0-8.3)
[2023-01-31 07:19] LABS: Calcium* 9.8 mg/dL (8.4-10.6)
[2023-01-31 07:21] LABS: C Reactive Protein* 1.3 mg/dL (0.5-1.0)
[2023-01-31 07:35] LABS: NT Pro B Type NatriureticPept* 1580 pg/mL
--- NOTE | 2023-01-31 07:39 | PC.NURSE ---
Pt is alert and oriented x3. Afebrile. Pt denies pain, chest pain and vomiting. Pt reported nausea, managed with PRN Zofran.?SOB is noted with exertion. Pt?s posterior lung sounds are slightly diminished and pt?s breath sounds have wheezing upon expiration, managed with scheduled nebs.?Pt had Cpap was on from [id number], pt couldn?t tolerate it anymore, pt was switched to 1.5 L O2 stats between 90-93% was able to wean pt to 0.5L Oxygen with pt maintaining O2 stats of 90-92% while awake. Pt is up SBA, voiding, and tolerating regular diet. Pt slept intermittently throughout out night. ?
[2023-01-31] MEDS: predniSONE 20 MG TABLET 40 MG PO (08:03)
[2023-01-31] MEDS: FUROSEMIDE 40 MG TABLET PO (08:03)
[2023-01-31] MEDS: levETIRAcetam 500 MG TABLET 750 MG PO ×2 (09:20→22:46)
[2023-01-31] MEDS: PARoxetine 20 MG TABLET 40 MG PO (09:20)
[2023-01-31] MEDS: BUDESONIDE 0.5 MG/2ML NEB NEB ×3 (09:22→22:48)
[2023-01-31] MEDS: SODIUM CHLORIDE 0.9 % (FLUSH) 10 ML SYRINGE 5 ML IVF ×2 (09:28→22:44)
[2023-01-31] MEDS: NYSTATIN POWDER 1 APPLIC TOPICAL (09:33)
--- NOTE | 2023-01-31 10:32 | PM.IMPN1 ---
Progress Note: A&P Assessment and plan (1) Acute and chronic respiratory failure with hypoxia: Problem details: -differential includes her history persistent asthma, pulmonary edema, unlikely infectious, unclear why she is chronically hypoxic, RODRICK/restrictive lung disease -O2 to keep sats greater than 88%, continue to wean as able -RT for pulmonary support -continue nebs, home inhalers (add spacer, RT will assist with making sure she's using these appropriately), prednisone x5 doses -echo shows EF 65%, technically limited exam, systolic function not well visualized. BNP uptrending, will continue with diuresis, strict I&Os, daily weights -uptrending WBC, likely related to steroids, afebrile, procalcitonin ordered, monitor for new or worsening symptoms -Mag 2.0, will give 2 g IV Mag sulfate, recheck in morning -query compliance with medications, CPAP, complicating chronic problems -likely will need home O2 and long-term outpatient pulmonary follow-up Status: Acute (2) Asthma: Problem details: PFTs done in November 2022 -FEV1 0.74, 33% predicted, FEV1/FEV% 69, consistent with severe obstruction -outpatient management Ngoc Zaidi MD - pulm medicine -plan as above Status: Acute (3) Peripheral edema: Problem details: -new problem 3 days prior to admission, improving, no pitting edema currently -echo as above, uptrending BMP, continue diuresis Status: Acute (4) RODRICK (obstructive sleep apnea): Problem details: -question compliance, RT to assist with comfort, fitting. May require repeat outpatient sleep study Status: Acute (5) Anxiety and depression: Problem details: -longstanding, continue home meds Status: Acute (6) Pseudoseizures: Problem details: -has seen Neurology -apparently more common when stress -will continue home Keppra dosing Status: Acute (7) Hypothyroidism: Problem details: -TSH was suppressed, free T4 1.16, T3 pending, continue levothyroxine Status: Acute Time Spent With Patient Total time spent: Total time spent caring for the patient today was 60 minutes. This includes time spent for the visit reviewing the chart, time spent during the visit, time spent after the visit and documentation and planning. Subjective Date Seen: 01/31/23 Interval history: Overnight, patient unable to tolerate CPAP, requiring oxygen instead. Patient tells me she frequently is unable to tolerate CPAP at home as well, maybe wearing it twice a week, as she finds herself gasping for air. She does report feeling better this morning however than prior to admission. Chest tightness improving. Remains afebrile. Tolerating orals without nausea vomiting. When asked about home inhalers, patient reports using her long-acting inhalers twice daily as prescribed but does not have a spacer for these. Exam Narrative: Exam Narrative: PHYSICAL EXAM General: Pleasant, conversant, NAD HEENT: Normocephalic, atraumatic, sclera white, EOMI, oral mucosa moist Cardiovascular: RRR, S1S2. No pitting edema this morning Pulmonary: Diffusely diminished with expiratory wheezes noted. Mild dyspnea on nasal cannula Neurological: Alert, answering questions appropriately, cranial nerves intact, no focal findings Extremities: No gross joint deformity or swelling. AROMI Skin: Warm, dry. No rash Const: Vital Signs, click to edit/add: Vital Signs - 24 hr 01/30/23 12:00 01/30/23 12:00 01/30/23 13:28 Temperature 98.3 F Pulse Rate Pulse Rate [Right Pulse Oximeter] 116 H Respiratory Rate 22 22 Blood Pressure [Le ft Arm] 137/87 Pulse Oximetry 90 90 90 Oxygen Delivery Me thod Nasal Cannula Oxygen Flow Rate 1 1 01/30/23 13:28 01/30/23 15:13 01/30/23 15:13 Temperature 98.1 F Pulse Rate Pulse Rate [Right Pulse Oximeter] 112 H Respiratory Rate 22 24 Blood Pressure [Le ft Arm] 140/81 H Pulse Oximetry 90 92 92 Oxygen Delivery Me thod Nasal Cannula Nasal Cannula Oxygen Flow Rate 1 01/30/23 15:13 01/30/23 16:01 01/30/23 19:52 Temperature 97.1 F L Pulse Rate 111 H Pulse Rate [Right Pulse Oximeter] 109 H Respiratory Rate 24 Blood Pressure [Le ft Arm] 129/74 Pulse Oximetry 92 91 Oxygen Delivery Me thod Nasal Cannula Nasal Cannula Oxygen Flow Rate 1 01/30/23 20:32 01/30/23 20:55 01/30/23 23:35 Temperature Pulse Rate 111 H Pulse Rate [Right Pulse Oximeter] 109 H 104 H Respiratory Rate 24 22 Blood Pressure [Le ft Arm] Pulse Oximetry Oxygen Delivery Me thod Oxygen Flow Rate 01/30/23 23:35 01/31/23 03:40 Temperature 97.9 F 98.6 F Pulse Rate Pulse Rate [Right Pulse Oximeter] 104 H 105 H Respiratory Rate 22 18 Blood Pressure [Le ft Arm] 139/90 H 131/95 H Pulse Oximetry 90 90 Oxygen Delivery Me thod Nasal Cannula Nasal Cannula Oxygen Flow Rate 1 2 Labs Labs: Laboratory Results - last 24 hr 01/29/23 01/30/23 01/31/23 21:00 12:25 06:13 WBC 19.53 H RBC 4.13 Hgb 12.0 Hct 38.9 MCV 94 MCH 29 MCHC 31 L Plt Count 234 VBG pH 7.407 VBG pCO2 52 H VBG pO2 60.4 H VBG HCO3 33 H Sodium 138 Potassium 4.1 Chloride 100 Carbon Dioxide 32 Anion Gap 6 L BUN 21 Creatinine 0.7 Estimated Creat Clear 175.33 Estimated GFR 109 Glucose 171 H Calcium 9.8 Magnesium 2.1 2.0 Total Bilirubin 0.5 AST 27 ALT 42 H Alkaline Phosphatase 89 C-Reactive Protein 1.3 H NT-Pro-B Natriuret Pep 1580 Total Protein 7.3 Albumin 4.1 Free T4 1.16 Lab Acknowledgement New Spec Needed
[2023-01-31 11:11] LABS: Procalcitonin* 0.04 ng/mL (<0.50)
[2023-01-31] MEDS: MAGNESIUM IV 2 GM/50 ML PIGGYBACK IVPB (11:37)
[2023-01-31] MEDS: FUROSEMIDE 10 MG/ML inj 40 MG IVP ×2 (11:57→15:00)
--- NOTE | 2023-01-31 13:27 | PM.EN ---
Chart Event Note Date Seen: 01/31/23 Chart Event Note: Notified by nursing staff that patient was feeling flushed and tingling following IV administration of magnesium sulfate. This was given over 20 minute course following asthma protocol. Patient has received magnesium in the past without significant adverse event. This reaction likely related to rate of administration. Symptoms actually quickly resolved following end of administration. No further complaints.
[2023-01-31] MEDS: Solifenacin 10 mg tablet 10 EACH PO (15:35)
[2023-01-31] MEDS: Budesonide-Formoterol [Symbicort] 160-4.5 mcg/actuation 2 EACH IH ×2 (15:35→22:47)
--- NOTE | 2023-01-31 17:59 | PC.NURSE ---
End of shift note: patient was feeling flushed and tingling following IV administration of magnesium sulfate. IV Mag Sulf was recommended to be administrated over 20 minute course following asthma protocol per MD. Patient's reaction likely related to rate of administration of Mag sulfate per MD. Symptoms began to resolve following end of administration and further complications were not noted. Patient stated that she felt better after IV site was flushed and IV finished. Patient on 0.5 L NC sating at 90-93%, RT recommended that patient use spacer for home inhalers. Bunk Assembler demonstrated how to use spacer and patient was able to use appropriately. Patient is a SBA to BR and chair. LE bilateral edema, Stew wrapped. VSS. Afebrile this shift. Patient tolerating a regular diet.
[2023-01-31 21:58] LABS: Total T3 69 ng/dL (80-200)
[2023-01-31] MEDS: ENOXAPARIN 40 MG/0.4 ML INJ SUBCUT (22:44)
[2023-01-31] MEDS: MONTELUKAST 10 MG TABLET PO (22:47)
[2023-02-01 04:36] VITALS: BP 145/80; PULSE 108; RESP 22; TEMP 36.8; O2SAT 93
[2023-02-01] MEDS: IPRAT-ALBUT 0.5-2.5 MG/3 ML NEB 1 NEB IH ×4 (04:37→22:36)
[2023-02-01] MEDS: LEVOTHYROXINE 125 MCG TABLET PO (06:14)
[2023-02-01] MEDS: OMEPRAZOLE 20 MG CAPSULE DR 40 MG PO (06:14)
[2023-02-01 06:39] LABS: Hematocrit 39.7 % (33.0-51.0); Hemoglobin* 12.2 gm/dL (12.0-16.0); Mean Corpuscular HGB Conc 31 gm/dL (32-36); Mean Corpuscular Hemoglobin 29 pg (26-34); Mean Corpuscular Volume 94 fL (80-100); Platelet Count* 250 K/uL (140-440); Red Blood Count 4.21 m/uL (4.00-5.20); White Blood Count* 17.51 K/uL (4.50-11.00)
[2023-02-01 06:47] LABS: Slide Review Reflex No
--- NOTE | 2023-02-01 06:55 | PC.NURSE ---
[id number]: Patient pleasant and cooperative. Denies pain. Refused Nystatin powder for redness in folds. 1-2 Lt O2 during noc bled into CPAP to keep sats >90%. SOB w/activity. SBA w/walker. Continent/incontinent. Stew wraps to BLE off and on again.
[2023-02-01 06:59] LABS: Chloride* 95 mmol/L (96-114); Potassium* 3.6 mmol/L (3.6-5.1); Sodium* 138 mmol/L (135-149)
[2023-02-01 07:00] VITALS: BP 132/95; PULSE 102; RESP 20; TEMP 36.9; O2SAT 91
[2023-02-01 07:02] LABS: Anion Gap 6 mEq/L (7-15); Blood Urea Nitrogen* 25 mg/dL (5-24); Calcium* 9.7 mg/dL (8.4-10.6); Carbon Dioxide* 37 mmol/L (20-32); Creatinine* 0.7 mg/dL (0.5-1.5); Estimated Glomerular Filt Rate 109 ml/min; Glucose* 120 mg/dL (60-115)
[2023-02-01 07:03] LABS: Magnesium* 2.2 mg/dL (1.5-2.6)
--- NOTE | 2023-02-01 07:44 | CRLHL7_ITS ---
For Patients: As a result of the Cures Act, medical imaging exams and procedure reports are released immediately into your electronic medical record. You may view this report before your referring provider. If you have questions, please contact your health care provider. HISTORY: Hypoxia. TECHNIQUE: Two views of the chest. COMPARISON: 01/29/2023. FINDINGS: Cardiomegaly is unchanged. No change in mild generalized prominence of the pulmonary vasculature. There is no acute lung infiltrate or pulmonary edema. No pneumothorax or pleural effusion. IMPRESSION: No acute lung infiltrate or pulmonary edema. Dictated by Saman Moody MD @ 02/01/2023 9:18:16 AM Dictated by: Saman Moody MD @ 02/01/2023 09:18:47 (Electronically Signed)
--- NOTE | 2023-02-01 07:46 | PM.IMPN1 ---
Progress Note: A&P Assessment and plan (1) Acute and chronic respiratory failure with hypoxia: Problem details: -DISCHARGE TOMORROW ON HOME OXYGEN, NIGHTLY CPAP WITH BLEED IN, PULMONARY F/U -differential includes her history persistent asthma, pulmonary edema, unlikely infectious, unclear why she is chronically hypoxic (genetic/undertreated chronic disease: RODRICK/obstructive lung disease) -O2 to keep sats greater than 88%, continue to wean as able -RT for pulmonary support -continue nebs, home inhalers (add spacer, RT will assist with making sure she's using these appropriately), prednisone x5 doses -echo shows EF 65%, technically limited exam, systolic function not well visualized. BNP uptrending, will continue with diuresis, strict I&Os, daily weights -uptrending WBC, likely related to steroids, afebrile, procalcitonin normal, monitor for new or worsening symptoms -Mag 2.0, will give 2 g IV Mag sulfate, recheck in morning -query compliance with medications, CPAP, complicating chronic problems -likely will need home O2 and long-term outpatient pulmonary follow-up Status: Acute (2) Asthma: Problem details: PFTs done in November 2022 -FEV1 0.74, 33% predicted, FEV1/FEV% 69, consistent with severe obstruction -outpatient management Ngoc Zaidi MD - pulm medicine -plan as above Status: Acute (3) Peripheral edema: Problem details: -new problem 3 days prior to admission, improving, no pitting edema currently -echo incomplete (body habitus?), uptrending BMP, continue diuresis Status: Acute (4) RODRICK (obstructive sleep apnea): Problem details: -question compliance, RT to assist with comfort, fitting. May require repeat outpatient sleep study Status: Acute (5) Anxiety and depression: Problem details: -longstanding, continue home meds Status: Acute (6) Pseudoseizures: Problem details: -has seen Neurology -apparently more common when stress -will continue home Keppra dosing Status: Acute (7) Hypothyroidism: Problem details: -TSH was suppressed, free T4 1.16, T3 pending, continue levothyroxine Status: Acute (8) Hydrocephalus: Problem details: -apparently congenital and associated with a developmental learning disorder Status: Acute Subjective Date Seen: 02/01/23 Interval history: Daily Progress Note - Hospital Medicine Day #: 3 CC: dyspnea - acute on chronic respiratory failure OVERNIGHT UPDATES FROM STAFF & MED, LAB, IMAGING UPDATES pt states she feels much better. she is walking independently to the bathroom without difficult (on oxygen) Weight is down from 109.5 kilos yesterday to 107.2 kilos today. 2.3 kilos, 5 lb Afebrile. Blood pressure stable. Mildly tachycardic, less than 110, pulse ox 93% on 2 L. Nurse note overnight [id number]: Patient pleasant and cooperative. Denies pain. Refused Nystatin powder for redness in folds. 1-2 Lt O2 during noc bled into CPAP to keep sats >90%. SOB w/activity. SBA w/walker. Continent/incontinent. Stew wraps to BLE off and on again. CBC reflects a down trending but still elevated white blood cell count. 19.5 down to 17.5 Sodium and potassium are normal. Mild bump in her CO2. Renal function normal. TSH was suppressed, however she has a normal free T4 and a low T3.? ? Two view chest x-ray ordered for this morning still pending Echo reviewed from day of admission, technically limited study. Objective: alert, tapping away on her iphone. on 2.5L NC, no resp distress. edema almost completely resolved. Vitals: see above Lungs: Clear. shallow. Cardiac: S1S2. Disposition/Potential discharge - Likely to return to previous living situation. Today I spent 50minutes seeing the patient, reviewing Expanse and EPIC notes/diagnostics, discussing the care plan with our care time that includes social work, PT/OT, pharmacy, RT, senior living and documenting my impressions and plan in the medical record. Exam Const: Vital Signs, click to edit/add: Vital Signs - 24 hr 01/31/23 11:00 01/31/23 15:00 01/31/23 15:00 Temperature 97.8 F Pulse Rate [Right Pulse Oximeter] 111 H 105 H Respiratory Rate 26 H 22 Blood Pressure [Le ft Arm] 133/89 Pulse Oximetry 93 92 Oxygen Delivery Me thod Nasal Cannula Oxygen Flow Rate 0.5 01/31/23 15:00 01/31/23 19:36 01/31/23 22:54 Temperature 97.4 F L 98.5 F 97.5 F L Pulse Rate [Right Pulse Oximeter] 105 H 107 H 106 H Respiratory Rate 22 22 22 Blood Pressure [Le ft Arm] 132/87 125/80 141/90 H Pulse Oximetry 92 92 92 Oxygen Delivery Me thod Nasal Cannula Nasal Cannula Nasal Cannula Oxygen Flow Rate 0.5 0.5 1.0 01/31/23 23:00 01/31/23 23:00 01/31/23 23:00 Temperature Pulse Rate [Right Pulse Oximeter] 106 H Respiratory Rate 22 Blood Pressure [Le ft Arm] Pulse Oximetry 92 92 Oxygen Delivery Me thod Nasal Cannula Oxygen Flow Rate 2.0 02/01/23 04:36 Temperature 98.2 F Pulse Rate [Right Pulse Oximeter] 108 H Respiratory Rate 22 Blood Pressure [Le ft Arm] 145/80 H Pulse Oximetry 93 Oxygen Delivery Me thod Nasal Cannula Oxygen Flow Rate 2.0 Labs Labs: Laboratory Results - last 24 hr 01/30/23 01/31/23 01/31/23 12:25 06:13 10:26 WBC RBC Hgb Hct MCV MCH MCHC Plt Count Sodium Potassium Chloride Carbon Dioxide Anion Gap BUN Creatinine Estimated Creat Clear Estimated GFR Glucose Calcium Magnesium Procalcitonin 0.04 T3 69 L Lab Acknowledgement Test Added 02/01/23 06:00 WBC 17.51 H RBC 4.21 Hgb 12.2 Hct 39.7 MCV 94 MCH 29 MCHC 31 L Plt Count 250 Sodium 138 Potassium 3.6 Chloride 95 L Carbon Dioxide 37 H Anion Gap 6 L BUN 25 H Creatinine 0.7 Estimated Creat Clear 171.80 Estimated GFR 109 Glucose 120 H Calcium 9.7 Magnesium 2.2 Procalcitonin T3 Lab Acknowledgement
[2023-02-01] MEDS: predniSONE 20 MG TABLET 40 MG PO (07:54)
[2023-02-01] MEDS: PARoxetine 20 MG TABLET 40 MG PO (09:14)
[2023-02-01] MEDS: levETIRAcetam 500 MG TABLET 750 MG PO ×2 (09:14→21:26)
[2023-02-01] MEDS: SODIUM CHLORIDE 0.9 % (FLUSH) 10 ML SYRINGE 5 ML IVF ×2 (09:16→21:28)
[2023-02-01] MEDS: Budesonide-Formoterol [Symbicort] 160-4.5 mcg/actuation 2 EACH IH ×2 (09:17→21:27)
[2023-02-01] MEDS: Solifenacin 10 mg tablet 10 EACH PO (09:18)
[2023-02-01] MEDS: FUROSEMIDE 10 MG/ML inj 40 MG IVP (09:36)
[2023-02-01 11:00] VITALS: BP 134/94; PULSE 107; RESP 18; TEMP 36.2; O2SAT 94
[2023-02-01 15:00] VITALS: BP 113/75; PULSE 102; RESP 18; TEMP 36.4; O2SAT 91
--- NOTE | 2023-02-01 15:14 | PC.NURSE ---
Elevated BP, tachy- 100-110s, 0.5 L NC- saturations to be maintained 88-92% per provider. Regular diet- tolerating, eating 100% of meals. Drinking well. Up to bathroom independently, frequent urination d/t 1 dose IV lasix given. Last BM yesterday, 01/31. Skin folds very red and odorous- showered, medicated cream applied. PIV- SL'd. Chest xray this AM. Will continue to monitor, follow POC, and keep pt and family updated. Denice Arrington RN
[2023-02-01] MEDS: FUROSEMIDE 40 MG TABLET PO (15:55)
--- NOTE | 2023-02-01 18:47 | PC.NURSE ---
Shift note: Pt has been on 2L oxygen and continuous pulse monitoring. Alert and oriented, ambulated independently in room. Denied any pain and cough observed. Vital WNL. Pt has good appetite, able to all meal served for dinner.
[2023-02-01 19:28] VITALS: BP 114/83; PULSE 101; RESP 20; TEMP 36.7; O2SAT 90
[2023-02-01] MEDS: MONTELUKAST 10 MG TABLET PO (21:26)
[2023-02-01] MEDS: ENOXAPARIN 40 MG/0.4 ML INJ SUBCUT (21:27)
[2023-02-01] MEDS: BUDESONIDE 0.5 MG/2ML NEB NEB (21:27)
[2023-02-01 23:00] VITALS: BP 103/70; PULSE 96; RESP 20; TEMP 36.4; O2SAT 91
[2023-02-02 03:00] VITALS: BP 128/76; PULSE 99; RESP 22; TEMP 36.4; O2SAT 89
[2023-02-02] MEDS: IPRAT-ALBUT 0.5-2.5 MG/3 ML NEB 1 NEB IH (04:25)
[2023-02-02] MEDS: OMEPRAZOLE 20 MG CAPSULE DR 40 MG PO (06:09)
[2023-02-02] MEDS: LEVOTHYROXINE 125 MCG TABLET PO (06:09)
[2023-02-02 06:35] LABS: Hematocrit 39.4 % (33.0-51.0); Mean Corpuscular HGB Conc 31 gm/dL (32-36); Mean Corpuscular Hemoglobin 29 pg (26-34); Mean Corpuscular Volume 94 fL (80-100); Platelet Count* 225 K/uL (140-440); White Blood Count* 17.82 K/uL (4.50-11.00)
[2023-02-02 06:45] LABS: HCO3 VBG 39 mmol/L (21-28); PCO2 VBG 58 mmHG (40-50); PO2 VBG 82.1 mmHG (25-47); pH VBG 7.434 (7.32-7.43)
[2023-02-02 06:54] LABS: Slide Review Reflex No
[2023-02-02 07:00] VITALS: BP 136/90; PULSE 99; RESP 20; TEMP 36.7; O2SAT 94
--- NOTE | 2023-02-02 07:00 | PC.NURSE ---
End of shift: A&O pleasant and cooperative. While awake tolerating 0.5L of O2 maintaining sats between 88-92%. Uses CPAP at night w/ 2L of O2. Denies pain. SBA in room. Uses call light appropriately.
[2023-02-02] MEDS: predniSONE 20 MG TABLET 40 MG PO (07:29)
[2023-02-02] MEDS: FUROSEMIDE 40 MG TABLET PO (07:30)
[2023-02-02 07:59] LABS: Anion Gap 6 mEq/L (7-15); Blood Urea Nitrogen* 33 mg/dL (5-24); Calcium* 9.6 mg/dL (8.4-10.6); Carbon Dioxide* 37 mmol/L (20-32); Chloride* 94 mmol/L (96-114); Creatinine* 0.7 mg/dL (0.5-1.5); Est. Creatinine Clearance* 172.56; Estimated Glomerular Filt Rate 109 ml/min; Glucose* 106 mg/dL (60-115); Potassium* 3.8 mmol/L (3.6-5.1); Sodium* 137 mmol/L (135-149)
[2023-02-02 08:00] LABS: NT Pro B Type NatriureticPept* 797 pg/mL; Procalcitonin* 0.04 ng/mL (<0.50)
[2023-02-02 08:05] VITALS: O2SAT 83; O2SAT 87; O2SAT 90
[2023-02-02] MEDS: levETIRAcetam 500 MG TABLET 750 MG PO (08:53)
[2023-02-02] MEDS: PARoxetine 20 MG TABLET 40 MG PO (08:54)
[2023-02-02] MEDS: Solifenacin 10 mg tablet 10 EACH PO (08:57)
[2023-02-02] MEDS: Budesonide-Formoterol [Symbicort] 160-4.5 mcg/actuation 2 EACH IH (08:57)
[2023-02-02] MEDS: BUDESONIDE 0.5 MG/2ML NEB NEB (08:58)
--- NOTE | 2023-02-02 09:59 | PC.NURSE ---
Discharge: Patient alert, cooperative and pleasant. Discharged to home at 0935 accompanied by friend. Home oxygen sent home, back up tank, and CPAP with ability to bleed in O2, strict instructions given at discharge about compliance with meds and oxygen use. 3L when ambulating and 1L when at rest. Patient signed discharge instructions sheet and verbalized understanding of instructions. IV removed intact. Belongings sheet signed.
--- NOTE | 2023-02-02 13:03 | PM.IMPN1 ---
Subjective Date Seen: 02/02/23 Interval history: HOSPITALIST DISCHARGE SUMMARY ATTENDING PHYSICIAN: Meg Moore MD FINAL DIAGNOSIS/FOLLOW UP ISSUES: Obstructive lung disease; BRIEF HOSPITAL COURSE: DISCHARGE MEDICATIONS: See Reconciled list - SIGNIFICANT CHANGES: REVIEW OF SYSTEMS No new chest pain or dyspnea Pain controlled No voiding difficulties Tolerating diet challenge PHYSICAL EXAM: CONSTITUTIONAL: VITAL SIGNS: see record. HEENT: Normocephalic, atraumatic. PERRL, EOMI, conjunctivae pink, no scleral icterus. Ears and nose externally normal. Pharynx normal. NECK: No JVD. No carotid bruit, no thyromegaly, no adenopathy. CHEST: Clear to auscultation bilaterally. HEART: S1 and S2 normal. Edema ABDOMEN: Soft, nontender. Normal bowel sounds. MUSCULOSKELETAL: No gross joint deformity or swelling. NEURO: Cranial nerves intact. Grossly intact. No asymmetric findings. SKIN: No rashes, petechiae, concerning changes PSYCHIATRIC: Mood euthymic. DISPOSITION: Time spent on discharge 37 minutes. Exam Const: Vital Signs, click to edit/add: Vital Signs - 24 hr 02/01/23 15:00 02/01/23 15:00 02/01/23 15:00 Temperature Pulse Rate [Right Pulse Oximeter] 102 H Respiratory Rate 18 18 Blood Pressure [Le ft Arm] Pulse Oximetry 91 91 Oxygen Delivery Me thod Nasal Cannula Oxygen Flow Rate 2 02/01/23 15:00 02/01/23 19:28 02/01/23 23:00 Temperature 97.5 F L 98.1 F 97.6 F Pulse Rate [Right Pulse Oximeter] 102 H 101 H 96 Respiratory Rate 18 20 20 Blood Pressure [Le ft Arm] 113/75 114/83 103/70 Pulse Oximetry 91 90 91 Oxygen Delivery Me thod Nasal Cannula Nasal Cannula Nasal Cannula Oxygen Flow Rate 2 0.5 0.5 02/01/23 23:00 02/01/23 23:00 02/02/23 03:00 Temperature 97.6 F Pulse Rate [Right Pulse Oximeter] 99 Respiratory Rate 20 22 Blood Pressure [Le ft Arm] 128/76 Pulse Oximetry 91 91 89 Oxygen Delivery Me thod Room Air CPAP Oxygen Flow Rate 0.5 2 02/02/23 07:00 02/02/23 07:00 02/02/23 07:00 Temperature Pulse Rate [Right Pulse Oximeter] 99 Respiratory Rate 20 20 Blood Pressure [Le ft Arm] Pulse Oximetry 94 94 Oxygen Delivery Me thod Nasal Cannula Oxygen Flow Rate 0.5 02/02/23 07:00 Temperature 98.0 F Pulse Rate [Right Pulse Oximeter] 99 Respiratory Rate 20 Blood Pressure [Le ft Arm] 136/90 H Pulse Oximetry 94 Oxygen Delivery Me thod Nasal Cannula Oxygen Flow Rate 0.5 Labs Labs: Laboratory Results - last 24 hr 02/02/23 06:05 WBC 17.82 H RBC 4.20 Hgb 12.0 Hct 39.4 MCV 94 MCH 29 MCHC 31 L Plt Count 225 VBG pH 7.434 H VBG pCO2 58 H VBG pO2 82.1 H VBG HCO3 39 H Sodium 137 Potassium 3.8 Chloride 94 L Carbon Dioxide 37 H Anion Gap 6 L BUN 33 H Creatinine 0.7 Estimated Creat Clear 172.56 Estimated GFR 109 Glucose 106 Calcium 9.6 NT-Pro-B Natriuret Pep 797 Procalcitonin 0.04
--- NOTE | 2023-02-02 13:11 | PM.DS1 ---
DS: Providers Provider Date Seen: 02/02/23 Date of admission: 01/30/23 10:49 Primary care physician: Geronimo Lamb MD Admitting Clinician: Meg Moore MD Consults: 01/30/23 10:49 Consult to Respiratory Therapy [CONS] Routine Comment: Reason(s) for RT Consult:: Consult Attending Physician on discharge: Meg Moore MD Date of Discharge: 02/02/23 DS: Diagnosis Discharge Diagnosis (1) Acute and chronic respiratory failure with hypoxia: Status: Acute Problem details: -DISCHARGED 02/02/2023 ON HOME OXYGEN, NIGHTLY CPAP WITH BLEED IN, PULMONARY F/U -differential includes her history persistent asthma, pulmonary edema, unlikely infectious, unclear why she is chronically hypoxic (genetic/undertreated chronic disease: RODRICK/obstructive lung disease) -O2 to keep sats greater than 88% -continue nebs, home inhalers (add spacer, RT will assist with making sure she's using these appropriately), prednisone x5 doses -echo shows EF 65%, technically limited exam, systolic function not well visualized. -uptrending WBC, likely related to steroids, afebrile, procalcitonin normal, monitor for new or worsening symptoms -query compliance with medications, CPAP, complicating chronic problems -likely will need home O2 and long-term outpatient pulmonary follow-up (2) Peripheral edema: Status: Acute Problem details: -new problem 3 days prior to admission, improving, no pitting edema currently -echo incomplete (body habitus?), uptrending BMP, continue diuresis (3) Asthma: Status: Acute Problem details: PFTs done in November 2022 -FEV1 0.74, 33% predicted, FEV1/FEV% 69, consistent with severe obstruction -outpatient management Ngoc Zaidi MD - pulm medicine -plan as above (4) RODRICK (obstructive sleep apnea): Status: Acute Problem details: -question compliance, RT to assist with comfort, fitting. (5) Hydrocephalus: Status: Acute Problem details: -apparently congenital and associated with a developmental learning disorder (6) Anxiety and depression: Status: Acute Problem details: -longstanding, continue home meds (7) Pseudoseizures: Status: Acute Problem details: -has seen Neurology -apparently more common when stress -will continue home Keppra dosing (8) Hypothyroidism: Status: Acute Problem details: -TSH was suppressed, free T4 1.16, T3 pending, continue levothyroxine DS: Summary Hospital Course Hospital Course: HOSPITALIST DISCHARGE SUMMARY ATTENDING PHYSICIAN: Meg Moore MD FINAL DIAGNOSIS/FOLLOW UP ISSUES: Chronic hypoxic respiratory failure, multifactorial: Chronic asthma, pulmonary edema, obstructive sleep apnea, poor compliance Congenital hydrocephalus with learning disorder Type 2 diabetes Morbid obesity BRIEF HOSPITAL COURSE: Patient is a 47-year-old with poorly-controlled asthma, RODRICK, poor compliance presents with new peripheral edema and heart failure exacerbation. No infection was found. She was diuresed. Echo was reassuring. She was educated and encouraged on proper use of her inhalers and CPAP. We have asked her to see her equipment tech as an outpatient. She was discharged on home O2 1-2 L as directed. Is to use the same amount oxygen is bleed in in her CPAP. DISCHARGE MEDICATIONS: See Reconciled list - SIGNIFICANT CHANGES: Renewed home O2 Renewed CPAP with O2 bleed in DuoNebs 2 more days 20 mg of prednisone daily Daily Lasix and potassium REVIEW OF SYSTEMS No new chest pain or dyspnea Pain controlled No voiding difficulties Tolerating diet challenge PHYSICAL EXAM: CONSTITUTIONAL: VITAL SIGNS: see record. HEENT: Normocephalic, atraumatic. PERRL, EOMI, conjunctivae pink, no scleral icterus. Ears and nose externally normal. Pharynx normal. NECK: No JVD. No carotid bruit, no thyromegaly, no adenopathy. CHEST: Clear to auscultation bilaterally. HEART: S1 and S2 normal. Edema trace ABDOMEN: Soft, nontender. Normal bowel sounds. MUSCULOSKELETAL: No gross joint deformity or swelling. NEURO: Cranial nerves intact. Grossly intact. No asymmetric findings. SKIN: No rashes, petechiae, concerning changes PSYCHIATRIC: Mood euthymic. DISPOSITION: Home with family Time spent on discharge 37 minutes. Status at Discharge Functional status at discharge: independent ambulation Overall status at discharge: patient is progressing back to baseline Time Spent with Patient Time attestation: Total time spent providing and/or coordinating discharge services: Time spent: Greater than 30 minutes Exam Const: Vital Signs, click to edit/add: Vital Signs - 24 hr 02/01/23 15:00 02/01/23 15:00 02/01/23 15:00 Temperature Pulse Rate [Right Pulse Oximeter] 102 H Respiratory Rate 18 18 Blood Pressure [Le ft Arm] Pulse Oximetry 91 91 Oxygen Delivery Me thod Nasal Cannula Oxygen Flow Rate 2 02/01/23 15:00 02/01/23 19:28 02/01/23 23:00 Temperature 97.5 F L 98.1 F 97.6 F Pulse Rate [Right Pulse Oximeter] 102 H 101 H 96 Respiratory Rate 18 20 20 Blood Pressure [Le ft Arm] 113/75 114/83 103/70 Pulse Oximetry 91 90 91 Oxygen Delivery Me thod Nasal Cannula Nasal Cannula Nasal Cannula Oxygen Flow Rate 2 0.5 0.5 02/01/23 23:00 02/01/23 23:00 02/02/23 03:00 Temperature 97.6 F Pulse Rate [Right Pulse Oximeter] 99 Respiratory Rate 20 22 Blood Pressure [Le ft Arm] 128/76 Pulse Oximetry 91 91 89 Oxygen Delivery Me thod Room Air CPAP Oxygen Flow Rate 0.5 2 02/02/23 07:00 02/02/23 07:00 02/02/23 07:00 Temperature Pulse Rate [Right Pulse Oximeter] 99 Respiratory Rate 20 20 Blood Pressure [Le ft Arm] Pulse Oximetry 94 94 Oxygen Delivery Me thod Nasal Cannula Oxygen Flow Rate 0.5 02/02/23 07:00 Temperature 98.0 F Pulse Rate [Right Pulse Oximeter] 99 Respiratory Rate 20 Blood Pressure [Le ft Arm] 136/90 H Pulse Oximetry 94 Oxygen Delivery Me thod Nasal Cannula Oxygen Flow Rate 0.5 DS: Data Data Completed and Pending Labs on day of discharge: Labs from last 24 hours 02/02/23 06:05 WBC 17.82 H RBC 4.20 Hgb 12.0 Hct 39.4 MCV 94 MCH 29 MCHC 31 L Plt Count 225 VBG pH 7.434 H VBG pCO2 58 H VBG pO2 82.1 H VBG HCO3 39 H Sodium 137 Potassium 3.8 Chloride 94 L Carbon Dioxide 37 H Anion Gap 6 L BUN 33 H Creatinine 0.7 Estimated Creat Clear 172.56 Estimated GFR 109 Glucose 106 Calcium 9.6 NT-Pro-B Natriuret Pep 797 Procalcitonin 0.04 Discharge Plan Discharge Disposition: Home w/ Parent or Adult Date of Admission: 01/30/23 10:49 Attending Provider on Discharge: Meg Moore Primary Care Provider: Geronimo Lamb Condition: Stable Anticipated Discharge Date/Time: 02/02/23 07:57 Discharge Medications: New furosemide 40 mg Tablet 40 mg PO DAILY Qty: 30 0RF prednisone 20 mg Tablet 40 mg PO DAILYWM Qty: 2 0RF potassium chloride 10 mEq capsule, extended release 20 meq PO DAILY Qty: 60 2RF ipratropium-albuterol 0.5 mg-3 mg(2.5 mg base)/3 mL solution for nebulization 3 ml inhalation Q6-8H PRNQty: 90 0RF Continued levetiracetam [Keppra] 750 mg tablet 750 mg PO BID solifenacin 10 mg tablet 10 mg PO DAILY montelukast 10 mg tablet 10 mg PO HS Myrbetriq 50 mg tablet extended release 24 hr 50 mg PO DAILY Patient Comments: albuterol sulfate 90 mcg/actuation HFA aerosol inhaler 2 puff INHALATION Q4H PRN levothyroxine 125 mcg tablet 125 mcg PO QAM cholecalciferol (vitamin D3) 50 mcg (2,000 unit) capsule 50 mcg PO DAILY paroxetine HCl 40 mg tablet 40 mg PO DAILY Patient Comments: terbinafine HCl 1 % cream topical BID albuterol sulfate 2.5 mg /3 mL (0.083 %) solution for nebulization 2.5 mg inhalation Q8H PRNQty: 1 0RF budesonide-formoterol [Symbicort] 160-4.5 mcg/actuation HFA aerosol inhaler 2 puff INHALATION BID Qty: 1 0RF Spiriva Respimat 2.5 mcg/actuation mist 2 puff inhalation DAILY Qty: 1 0RF omeprazole 20 mg capsule,delayed release(DR/EC) 40 mg PO DAILY Discharge Orders: Discharge Order (Routine); Ordered 02/02/23 Ordered By: Meg Moore Patient Education: Furosemide (By mouth), Prednisone (By mouth) (predniSONE Intensol, Prednicot, Deltasone, Reba), Potassium Chloride (By mouth) (K-Dur, K-Elodia, K-Tab, Domenico Mur), Ipratropium/Albuterol (By breathing) (Combivent, Combivent..., How to Use a Nebulizer (DC), Dyspnea (DC), Hypoxia (GEN) Additional Instructions: 1. Super important to take your maintenance inhalers (the Spiriva and Symbicort) EVERYDAY DIRECTED. I have refilled those for you. The albuterol puff and nebs are if you need them. 2. Wear your oxygen /. Wear your CPAP every night. 3. Follow up with your equipment tech and see about a sleep study to confirm your CPAP is set at the right levels. call on Friday [phone] Dr. Zaidi 4. In the short term, I will have you on a diuretic (water pill that makes you pee) and potassium. I also want you to take two more days of prednisone. Activity Level: Activity as Tolerated Discharge Diet: Regular Follow Up Appointments: Geronimo Lamb MD [Primary Care Provider] - 02/10/23 Omaira Benz DO [Staff Physician] - 02/10/23 10:35 am ([facility] for follow-up.) Forms: [facility] Info Instructions
== END 2023-02-02 09:35 | disposition home or self-care (01) | DRG 189 ==
LOC: ED 01-30 06:22 → MEDSURG 01-30 10:40
PROVIDERS: Physician Assistant; Admitting Provider Family Medicine; Emergency Provider Family Medicine; PCP Family Medicine; Visit Provider Family Medicine
DX: J96.21 Acute and chronic respiratory failure with hypoxia (principal); I50.33 Acute on chronic diastolic (congestive) heart failure; Z68.43 Body mass index [BMI] 50.0-59.9, adult; I50.813 Acute on chronic right heart failure; J45.40 Moderate persistent asthma, uncomplicated; G47.33 Obstructive sleep apnea (adult) (pediatric); Z99.89 Dependence on other enabling machines and devices; E66.01 Morbid (severe) obesity due to excess calories; E03.9 Hypothyroidism, unspecified; E05.90 Thyrotoxicosis, unspecified without thyrotoxic crisis or storm; Q03.9 Congenital hydrocephalus, unspecified; F81.9 Developmental disorder of scholastic skills, unspecified; K21.9 Gastro-esophageal reflux disease without esophagitis; R56.9 Unspecified convulsions; F41.9 Anxiety disorder, unspecified; F32.A Depression, unspecified; F90.9 Attention-deficit hyperactivity disorder, unspecified type
CPT/HCPCS: 36415; 71046; 71275; 80048; 80053; 80076; 82803; 83735; 83880; 84145; 84439; 84443; 84480; 84484; 85025; 85027; 85379; 86140; 87631; 93005; 93306; 94640; 94761; 99284; 99285; A9270; J1650; J1940; J2060; J2930; J3475; J7120; J7512; J7626; Q9957; Q9967

== ENCOUNTER 2023-03-06 17:06 | Outpatient (CLI) | payer MEDICAID, MEDICARE, SELFPAY | END 2023-03-06 17:07 | disposition home or self-care (01) | LOC: AMB 04-03 07:44 | PROVIDERS: PCP Family Medicine; Visit Provider Emergency Medicine Emergency Medical Services | DX: R06.02 Shortness of breath (principal) | CPT/HCPCS: A0425; A0427 ==

== ENCOUNTER 2023-03-06 17:27 | Emergency (ER) | payer MEDICAID, SELFPAY ==
[2023-03-06] VITALS (14 sets, daily range): BP systolic 103–123; BP diastolic 74–93; PULSE 100–110; RESP 16; TEMP 37.1; O2SAT 2–98; BMI 36.4
--- NOTE | 2023-03-06 18:03 | CRLHL7_ITS ---
For Patients: As a result of the Century Cures Act, medical imaging exams and procedure reports are released immediately into your electronic medical record. You may view this report before your referring provider. If you have questions, please contact your health care provider. INDICATION: Cough, and dyspnea. TECHNIQUE: Chest radiograph, 1 view. COMPARISON: Chest radiographs 02/01/2023 FINDINGS: Lines/Tubes/Devices: None. Mediastinum: Cardiomegaly, stable allowing for differences in imaging technique. Lungs: No focal consolidation. Mild pulmonary vascular congestion. Pleura: No pleural effusions or pneumothorax. Bones: No acute osseous abnormalities. Upper Abdomen: Unremarkable. IMPRESSION: Stable cardiomegaly with mild pulmonary vascular congestion. No pleural effusions or pneumothorax. Dictated by Frandy Vaughn MD @ 03/06/2023 7:45:37 PM (Electronically Signed)
--- NOTE | 2023-03-06 18:04 | ED_ITS ---
HPI - SOB/Dyspnea General Time Seen by Provider: 18:04 Date Seen: 03/06/23 Chief Complaint: Shortness of Breath/Dyspnea Stated Complaint: Ill Time Seen by Provider: 03/06/23 17:42 Source: patient, family, EMS, RN notes reviewed and old records reviewed Mode of arrival: EMS Limitations: no limitations History of Present Illness HPI Narrative: 47-year-old female with history of asthma, oxygen dependent on 2 L chronically who presents with shortness of breath and chest tightness. She notes that she has had sinus congestion for about the last week, increased shortness of breath today with increased cough and so called EMS. DuoNeb given in route with some improvement. Patient denies fevers or chills, no nausea vomiting. Does have some lower extremity swelling and says that she in her home care nurse Dr. Coughlin a couple days ago, increased swelling since then and Lasix was restarted today, takes 40 mg daily. Feels some chest tightness in the lower chest. Related Data Home Medications Medication Instructions Recorded Confirmed albuterol sulfate 90 mcg/actuation 2 puff inhalation Q4H PRN 11/30/21 01/30/23 aerosol inhaler mirabegron 50 mg tablet,extended 50 mg PO DAILY 11/30/21 01/30/23 release 24 hr (Myrbetriq) montelukast 10 mg tablet 10 mg PO HS 11/30/21 01/30/23 omeprazole 20 mg capsule,delayed 40 mg PO DAILY 02/26/22 01/30/23 release levetiracetam 750 mg tablet 750 mg PO BID 11/25/22 01/30/23 (Keppra) solifenacin 10 mg tablet 10 mg PO DAILY 11/25/22 01/30/23 cholecalciferol (vitamin D3) 50 50 mcg PO DAILY 01/30/23 01/30/23 mcg (2,000 unit) capsule levothyroxine 125 mcg tablet 125 mcg PO QAM 01/30/23 01/30/23 paroxetine HCl 40 mg tablet 40 mg PO DAILY 01/30/23 01/30/23 terbinafine HCl 1 % topical cream applic topical BID 02/01/23 Previous Rx's Medication Instructions Recorded albuterol sulfate 2.5 mg/3 mL 2.5 mg (3 mL) inhalation Q8H PRN 02/02/23 (0.083 %) solution for nebulization #1 mL budesonide-formoterol HFA 160 2 puff inhalation BID #1 g 02/02/23 mcg-4.5 mcg/actuation aerosol inhaler (Symbicort) furosemide 40 mg tablet 40 mg PO DAILY #30 tabs 02/02/23 ipratropium 0.5 mg-albuterol 3 mg 3 ml inhalation Q6-8H PRN #90 mL 02/02/23 (2.5 mg base)/3 mL nebulization soln potassium chloride 10 mEq 20 meq (2 x 10 mEq) PO DAILY #60 02/02/23 capsule,extended release caps prednisone 20 mg tablet 40 mg (2 x 20 mg) PO DAILYWM #2 02/02/23 tabs tiotropium bromide 2.5 2 puff inhalation DAILY #1 g 02/02/23 mcg/actuation mist for inhalation (Spiriva Respimat) furosemide 40 mg tablet 40 mg PO DAILY #33 tabs 03/06/23 potassium chloride 20 mEq 20 meq PO DAILY #33 tabs 03/06/23 tablet,extended release Allergies Allergy/AdvReac Type Severity Reaction Status Date / Time azithromycin Allergy Intermediate Bloody Verified 01/29/23 23:10 Stools latex Allergy Intermediate Rash Verified 01/29/23 23:10 oxycodone Allergy Intermediate Agitated Verified 01/29/23 23:10 scopolamine Allergy Intermediate Tremors Verified 01/29/23 23:10 basil Allergy Rash Verified 01/29/23 23:10 acetaminophen [From Percocet] AdvReac Confusion Verified 01/29/23 23:10 [facility] Medical History (Updated 03/06/23 @ 19:54 by Scotty Webb MD) Hypothyroidism ?E03.9 - Hypothyroidism, unspecified (ICD-10) Acute and chronic respiratory failure with hypoxia ?J96.21 - Acute and chronic respiratory failure with hypoxia (ICD-10) 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 - Unspecified convulsions (ICD-10) RODRICK (obstructive sleep apnea) ?G47.33 - Obstructive sleep apnea (adult) (pediatric) (ICD-10) ADHD ?F90.9 - Attention-deficit hyperactivity disorder, unspecified type (ICD-10) Hyperthyroidism ?E05.90 - Thyrotoxicosis, unspecified without thyrotoxic crisis or storm (ICD-10) Hydrocephalus ?G91.9 - Hydrocephalus, unspecified (ICD-10) Hyperlipidemia ?E78.5 - Hyperlipidemia, unspecified (ICD-10) Anxiety and depression ?F41.9 - Anxiety disorder, unspecified (ICD-10) ?F32.A - Depression, unspecified (ICD-10) Asthma ?J45.909 - Unspecified asthma, uncomplicated (ICD-10) Surgical History History of ear surgery ?Z98.890 - Other specified postprocedural states (ICD-10) History of strabismus surgery ?Z98.890 - Other specified postprocedural states (ICD-10) Social History (Updated 01/30/23 @ 11:15 by Meg Moore MD) Narrative: on disability since 2009; lives alone with her cat. nonsmoker, no drugs, no significant tobacco history adopted, her two adopted aunts are her family contacts. What is your current living situation?: I presently have a place to live Problems where you live: no known problems Problems where you live details: None In the past 12 months, utilities in danger of being shut off: no In past 12 months, lack of transportation kept you from medical appts, meetings, work, or getting things needed for daily living: no In the past 12 mos, have been you worried that your food would run out before you had money to buy more?: never true In the past 12 mos, the food you bought just didn't last and you didn't have money to buy more?: never true Highest level of school completed/degree received: Associate degree: academic program Smoking Status: Never smoker Do you use any of these nicotine containing products: None Second hand tobacco smoke exposure: No How often do you have a drink containing alcohol: never How often do you have six or more drinks on one occasion: Never AUDIT-C Alcohol total score: 0 Non-prescribed substance use: denies use Caffeine: Yes (Pop ocassionally) How often does anyone, including family, friends and others, physically hurt you : never How often does anyone, including family, friends and others, insult or talk down to you: never How often does anyone, including family, friends and others, threaten you with harm: never How often does anyone, including family, friends and others, scream or curse at you: never service: No Exam Narrative: Exam Narrative: General: Well-developed and well-nourished, no acute distress Head: Atraumatic and normocephalic Eyes: Pupils are equal reactive, extraocular motions intact, conjunctiva clear ENT: External nose and ears are normal, posterior pharynx without erythema or exudate Neck: No midline cervical tenderness, full spontaneous range of motion the neck, trachea midline, no adenopathy Heart: Tachycardic but regular Lungs: Bilateral crackles worse on the right with some trace expiratory wheezes Abdomen: Soft, nontender, nondistended with active bowel sounds Musculoskeletal: No tenderness, deformity, or edema Neurologic: Awake, alert, and oriented x3, no gross focal neurologic deficits, cranial nerves intact as tested Psych: Mood and affect are appropriate Skin: No rashes Const: Vital Signs, click to edit/add: Vital Signs - 24 hr 03/06/23 17:30 03/06/23 17:31 03/06/23 17:37 Temperature 98.8 F Pulse Rate 108 H 108 H Pulse Rate [Right Pulse Oximeter] 108 H Respiratory Rate 16 Blood Pressure 116/82 Blood Pressure [Le ft Upper Arm] 116/82 Pulse Oximetry 98 98 93 Oxygen Delivery Me thod Nasal Cannula Oxygen Flow Rate 2 03/06/23 18:00 03/06/23 18:22 03/06/23 18:30 Temperature Pulse Rate 110 H 103 H Pulse Rate [Right Pulse Oximeter] Respiratory Rate Blood Pressure Blood Pressure [Le ft Upper Arm] Pulse Oximetry 92 2 L 94 Oxygen Delivery Me thod Nasal Cannula Oxygen Flow Rate 03/06/23 18:32 Temperature Pulse Rate 105 H Pulse Rate [Right Pulse Oximeter] Respiratory Rate Blood Pressure 111/74 Blood Pressure [Le ft Upper Arm] Pulse Oximetry 93 Oxygen Delivery Me thod Oxygen Flow Rate Course Course ED Course: Patient seen examined, prior records are reviewed. Patient presents today with increased shortness of breath. History of asthma and did get some improvement with DuoNeb but on lung exam, only trace wheezes. Lungs are quite crackle E and patient has been off Lasix for the last several days, certainly this could represent pulmonary edema. No fever but consider pneumonia as well. Labs and chest x-ray ordered. Patient is tachycardic, review of chart shows patient has had heart rates wound to the emergency department but over the last couple of months but prior to this was more in the 70s to 80s. Reevaluation(s) Time of Reevaluation #1: 18:46 Reevaluation #1: Chest x-ray independently interpreted by me with no acute findings. Labs independently interpreted by me CBC reassuring with no leukocytosis or anemia. Remaining labs are pending. Time of Reevaluation #2: 19:02 Reevaluation #2: Labs independently interpreted by me with normal BMP. BNP is elevated consistent with possible heart failure although chest x-ray does not confirm this. Venous blood gas with hypercarbia which is chronic, no respiratory acidosis. Noncontrast CT scan of the chest is ordered to further evaluate for pulmonary disease. Time of Reevaluation #3: 19:45 Reevaluation #3: CT scan independently interpreted by me does not demonstrate any acute infiltrate, does show some is a continuation consistent with small airways disease. Patient known asthma, now likely with some mild fluid overload as well. Increase Lasix the next couple of days, follow-up with primary care. Vital Signs Vital signs: Initial Vital Signs Pulse Rate 108 H 03/06/23 17:30 Blood Pressure 116/82 03/06/23 17:30 Blood Pressure Mean 93 03/06/23 17:30 Pulse Oximetry 98 03/06/23 17:30 Vital Signs Pulse Rate 108 H 03/06/23 17:30 Blood Pressure 116/82 03/06/23 17:30 Pulse Oximetry 98 03/06/23 17:30 Temperature 98.8 F 03/06/23 17:37 Pulse Rate 101 H 03/06/23 20:01 Respiratory Rate 16 03/06/23 17:37 Blood Pressure 103/93 H 03/06/23 20:01 Pulse Oximetry 92 03/06/23 20:01 Oxygen Delivery Method Nasal Cannula 03/06/23 18:22 Oxygen Flow Rate 2 03/06/23 17:37 MDM - SOB/Dyspnea Lab Data Labs: Lab Results 03/06/23 03/06/23 Range/Units 17:35 18:15 WBC 8.69 (4.50-11.00) K/uL RBC 4.23 (4.00-5.20) m/uL Hgb 12.1 (12.0-16.0) gm/dL Hct 38.1 (33.0-51.0) % MCV 90 (80-100) fL MCH 29 (26-34) pg MCHC 32 (32-36) gm/dL RDW Coeff of Tomy 13.6 (11.5-15.5) % Plt Count 195 (140-440) K/uL Neut % (Auto) 77.9 H (42.0-72.0) % Lymph % (Auto) 12.1 L (20-44) % [place] % (Auto) 7.6 (0.0-11.0) % Eos % (Auto) 1.7 (0.0-7.0) % Baso % (Auto) 0.5 (0.0-3.0) % Neut # (Auto) 6.80 (1.7-7.0) K/uL Lymph # (Auto) 1.10 (0.90-2.90) K/uL [place] # (Auto) 0.70 (0.00-0.90) K/UL Eos # (Auto) 0.15 (0.00-0.50) K/uL Baso # (Auto) 0.04 (0.00-0.30) K/uL Abs Immat Gran (auto) 0.02 (0.00-0.30) K/uL Imm/Tot Granulo (auto) 0.2 % VBG pH 7.430 (7.32-7.43) VBG pCO2 52 H (40-50) mmHG VBG pO2 52.7 H (25-47) mmHG VBG HCO3 35 H (21-28) mmol/L Sodium 139 (135-149) mmol/L Potassium 3.6 (3.6-5.1) mmol/L Chloride 98 (96-114) mmol/L Carbon Dioxide 31 (20-32) mmol/L Anion Gap 10 (7-15) mEq/L BUN 13 (5-24) mg/dL Creatinine 0.7 (0.5-1.5) mg/dL Estimated Creat Clear 130.81 Estimated GFR 109 ml/min Glucose 112 (60-115) mg/dL Calcium 8.8 (8.4-10.6) mg/dL Magnesium 1.7 (1.5-2.6) mg/dL NT-Pro-B Natriuret Pep 910 pg/mL SARS-CoV-2 (PCR) Negative SARS-CoV-2 (Negative) Influenza Type A (PCR) Negative PCR FLU A (Negative) Influenza Type B (PCR) Negative PCR FLU B (Negative) RSV (PCR) Negative PCR RSV (Negative) Discharge Plan Discharge Clinical Impression: Pulmonary edema, Asthma Patient Disposition: Home, Self-Care Condition: Stable Instructions: Pulmonary Edema (ED) Additional Instructions: Your labs, chest x-ray, and CT scan today demonstrate a small amount of fluid in the lungs which likely is causing your shortness of breath. Increase your Lasix to 40 mg twice a day for the next 3 days, then go back to once a day. Take 1 dose in the morning and 1 dose around lunchtime. Increase your potassium to 20 mEq twice a day for 3 days then back to once a day. Follow-up with your doctor next week. Activity Level: Activity as Tolerated Discharge Diet: Heart Healthy (2 gm sodium, low fat) Prescriptions: New furosemide 40 mg tablet 40 mg PO DAILY Qty: 33 0RF Rx Instructions: Take one table twice a day for three days starting 03/07/2023, then once a day after that potassium chloride 20 mEq tablet extended release 20 meq PO DAILY Qty: 33 0RF Rx Instructions: Take one tablet twice a day for three days starting 03/07/2023, then once a day after that No Action levetiracetam [Keppra] 750 mg tablet 750 mg PO BID solifenacin 10 mg tablet 10 mg PO DAILY montelukast 10 mg tablet 10 mg PO HS Myrbetriq 50 mg tablet extended release 24 hr 50 mg PO DAILY Patient Comments: albuterol sulfate 90 mcg/actuation HFA aerosol inhaler 2 puff INHALATION Q4H PRN levothyroxine 125 mcg tablet 125 mcg PO QAM cholecalciferol (vitamin D3) 50 mcg (2,000 unit) capsule 50 mcg PO DAILY paroxetine HCl 40 mg tablet 40 mg PO DAILY Patient Comments: terbinafine HCl 1 % cream topical BID furosemide 40 mg Tablet 40 mg PO DAILY Qty: 30 0RF prednisone 20 mg Tablet 40 mg PO DAILYWM Qty: 2 0RF potassium chloride 10 mEq capsule, extended release 20 meq PO DAILY Qty: 60 2RF albuterol sulfate 2.5 mg /3 mL (0.083 %) solution for nebulization 2.5 mg inhalation Q8H PRNQty: 1 0RF budesonide-formoterol [Symbicort] 160-4.5 mcg/actuation HFA aerosol inhaler 2 puff INHALATION BID Qty: 1 0RF Spiriva Respimat 2.5 mcg/actuation mist 2 puff inhalation DAILY Qty: 1 0RF ipratropium-albuterol 0.5 mg-3 mg(2.5 mg base)/3 mL solution for nebulization 3 ml inhalation Q6-8H PRNQty: 90 0RF omeprazole 20 mg capsule,delayed release(DR/EC) 40 mg PO DAILY Follow Up/Referrals: Geronimo Lamb MD [Primary Care Provider] - Stand Alone Forms: [employer] Info Instructions
[2023-03-06 18:22] LABS: PCR FLU A Negative PCR FLU A (Negative); PCR FLU B Negative PCR FLU B (Negative); PCR RSV Negative PCR RSV (Negative)
[2023-03-06 18:22] LABS: HCO3 VBG 35 mmol/L (21-28); PCO2 VBG 52 mmHG (40-50); PO2 VBG 52.7 mmHG (25-47)
[2023-03-06 18:24] LABS: Basophils Absolute Auto 0.04 K/uL (0.00-0.30); Basophils Percent Auto 0.5 % (0.0-3.0); Eosinophils Absolute Auto 0.15 K/uL (0.00-0.50); Eosinophils Percent Auto 1.7 % (0.0-7.0); Hematocrit 38.1 % (33.0-51.0); Hemoglobin* 12.1 gm/dL (12.0-16.0); Immature Granulocytes Abs Auto 0.02 K/uL (0.00-0.30); Immature Granulocytes Pct Auto 0.2 %; Lymphocytes Percent Auto 12.1 % (20-44); Mean Corpuscular HGB Conc 32 gm/dL (32-36); Mean Corpuscular Hemoglobin 29 pg (26-34); Mean Corpuscular Volume 90 fL (80-100); Monocytes Percent Auto 7.6 % (0.0-11.0); Neutrophils Percent Auto 77.9 % (42.0-72.0); Platelet Count* 195 K/uL (140-440); RDW Coefficient of Variation % 13.6 % (11.5-15.5); Red Blood Count 4.23 m/uL (4.00-5.20); White Blood Count* 8.69 K/uL (4.50-11.00)
[2023-03-06 18:34] LABS: Slide Review Reflex No
[2023-03-06 18:43] LABS: SARS PCR* Negative SARS-CoV-2 (Negative)
[2023-03-06 18:43] LABS: Chloride* 98 mmol/L (96-114); Sodium* 139 mmol/L (135-149)
[2023-03-06 18:44] LABS: Potassium* 3.6 mmol/L (3.6-5.1)
[2023-03-06 18:46] LABS: Creatinine* 0.7 mg/dL (0.5-1.5); Est. Creatinine Clearance* 130.81; Estimated Glomerular Filt Rate 109 ml/min
[2023-03-06 18:47] LABS: Anion Gap 10 mEq/L (7-15); Blood Urea Nitrogen* 13 mg/dL (5-24); Calcium* 8.8 mg/dL (8.4-10.6); Carbon Dioxide* 31 mmol/L (20-32); Glucose* 112 mg/dL (60-115); Magnesium* 1.7 mg/dL (1.5-2.6)
[2023-03-06 19:00] LABS: NT Pro B Type NatriureticPept* 910 pg/mL
--- NOTE | 2023-03-06 19:03 | CRLHL7_ITS ---
For Patients: As a result of the Century Cures Act, medical imaging exams and procedure reports are released immediately into your electronic medical record. You may view this report before your referring provider. If you have questions, please contact your health care provider. INDICATION: Dyspnea. TECHNIQUE: CT chest without IV contrast. COMPARISON: CT chest dated 01/29/2023. FINDINGS: Lungs and pleura: Mosaic attenuation of the lung parenchyma, may be secondary to motion artifact and/or component of small airways disease. Stable calcified granuloma in the right upper lobe. No focal consolidation. Heart and vasculature: No cardiomegaly, no pericardial effusion. Thyroid and lower neck: Atrophic appearance of the thyroid gland. Mediastinum/[place]: No lymphadenopathy. Chest wall: Stable prominent 1.0 cm right axillary lymph node (series 2, image 30). Upper abdomen: No acute abnormality. Bones: Multilevel degenerative changes of the spine. No suspicious/aggressive focal osseous lesion. IMPRESSION: 1. Mosaic attenuation of the lung parenchyma, which may be secondary to motion artifact and/or component of small airways disease. Recommend correlation with pulmonary function tests. 2. Stable prominent 1.0 cm right axillary lymph node. Recommend correlation with routine mammography. Please note that all CT scans at this facility use dose modulation, iterative reconstruction, and/or weight-based dosing when appropriate to reduce radiation dose to as low as reasonably achievable. Dictated by Kristina Knutson MD @ 03/06/2023 8:30:33 PM (Electronically Signed)
--- NOTE | 2023-03-06 20:21 | ED.NURSE ---
Discharge teaching complete, all questions answered. Patient has jacket, purse, walker but questions where her david shoes are. Hatchery Laborer and patient searched patient room without success. Hatchery Laborer was able to speak with EMS crew that transported patient to the hospital, he confirms patient was not wearing shoes for transport. Patient updated. She will check at home. Patient leaves ED ambulatory with use of personal walker, awaiting ride in [employer].
== END 2023-03-06 20:21 | disposition home or self-care (01) ==
PROVIDERS: Emergency Provider Family Medicine; PCP Family Medicine
DX: J81.1 Chronic pulmonary edema (principal); J45.909 Unspecified asthma, uncomplicated
CPT/HCPCS: 36415; 71045; 71250; 80048; 82803; 83735; 83880; 85025; 87631; 96374; 99284; 99285

== ENCOUNTER 2023-04-25 20:06 | Outpatient (CLI) | payer MEDICAID, MEDICARE, SELFPAY | END 2023-04-25 20:07 | disposition home or self-care (01) | LOC: AMB 04-28 12:18 | PROVIDERS: PCP Family Medicine; Visit Provider Internal Medicine | DX: R06.09 Other forms of dyspnea (principal) | CPT/HCPCS: A0425; A0427 ==

== ENCOUNTER 2023-04-25 20:21 | Emergency (ER) | payer MEDICAID, SELFPAY ==
[2023-04-25 22:00] VITALS: BP 112/65; PULSE 91; RESP 22; TEMP 37.1; O2SAT 91; BMI 49.8
--- NOTE | 2023-04-25 22:40 | CRLHL7_ITS ---
For Patients: As a result of the Century Cures Act, medical imaging exams and procedure reports are released immediately into your electronic medical record. You may view this report before your referring provider. If you have questions, please contact your health care provider. INDICATION: Shortness of breath. TECHNIQUE: Chest 2 views. COMPARISON: 03/06/2023. FINDINGS: Cardiovascular and mediastinum: Heart size and vasculature are normal in caliber and appearance. Lungs and pleural spaces: Lungs are clear. No sign of infiltrate or mass. No sign of pleural effusion. No pneumothorax. Bones and soft tissues: No significant findings. IMPRESSION: No acute cardiopulmonary abnormality. Dictated by Hank Broderick MD @ 04/25/2023 11:29:22 PM (Electronically Signed)
--- NOTE | 2023-04-25 22:43 | ED_ITS ---
HPI - SOB/Dyspnea General Chief Complaint: Shortness of Breath/Dyspnea Stated Complaint: shortness of breath Time Seen by Provider: 04/25/23 22:36 History of Present Illness HPI Narrative: Patient is a 47-year-old woman infrequently with shortness of breath who presents with 3 days of shortness of breath she has had no cough no sputum production no fevers no chills. Patient has history of asthma as well as obstructive sleep apnea and has been out of her nebulizer treatment at home. She did get her recent apply of nebulizer fluid today. She has taken 2 nebulizer treatments and feels somewhat better. He just wants to make sure that there is nothing else wrong. We did find their oxygen saturation 91% on room air which is quite good for her. In addition, I did swab her for viral etiologies. No other concerns are noted patient otherwise feeling well with no chest pain no abdominal pain no change in her bowel or bladder no stiff neck or headache. Related Data Home Medications Medication Instructions Recorded Confirmed albuterol sulfate 90 mcg/actuation 2 puff inhalation Q4H PRN 11/30/21 01/30/23 aerosol inhaler mirabegron 50 mg tablet,extended 50 mg PO DAILY 11/30/21 01/30/23 release 24 hr (Myrbetriq) montelukast 10 mg tablet 10 mg PO HS 11/30/21 01/30/23 omeprazole 20 mg capsule,delayed 40 mg PO DAILY 02/26/22 01/30/23 release levetiracetam 750 mg tablet 750 mg PO BID 11/25/22 01/30/23 (Keppra) solifenacin 10 mg tablet 10 mg PO DAILY 11/25/22 01/30/23 cholecalciferol (vitamin D3) 50 50 mcg PO DAILY 01/30/23 01/30/23 mcg (2,000 unit) capsule levothyroxine 125 mcg tablet 125 mcg PO QAM 01/30/23 01/30/23 paroxetine HCl 40 mg tablet 40 mg PO DAILY 01/30/23 01/30/23 terbinafine HCl 1 % topical cream applic topical BID 02/01/23 Previous Rx's Medication Instructions Recorded albuterol sulfate 2.5 mg/3 mL 2.5 mg (3 mL) inhalation Q8H PRN 02/02/23 (0.083 %) solution for nebulization #1 mL budesonide-formoterol HFA 160 2 puff inhalation BID #1 g 02/02/23 mcg-4.5 mcg/actuation aerosol inhaler (Symbicort) furosemide 40 mg tablet 40 mg PO DAILY #30 tabs 02/02/23 ipratropium 0.5 mg-albuterol 3 mg 3 ml inhalation Q6-8H PRN #90 mL 02/02/23 (2.5 mg base)/3 mL nebulization soln potassium chloride 10 mEq 20 meq (2 x 10 mEq) PO DAILY #60 02/02/23 capsule,extended release caps prednisone 20 mg tablet 40 mg (2 x 20 mg) PO DAILYWM #2 02/02/23 tabs tiotropium bromide 2.5 2 puff inhalation DAILY #1 g 02/02/23 mcg/actuation mist for inhalation (Spiriva Respimat) furosemide 40 mg tablet 40 mg PO DAILY #33 tabs 03/06/23 potassium chloride 20 mEq 20 meq PO DAILY #33 tabs 03/06/23 tablet,extended release Allergies Allergy/AdvReac Type Severity Reaction Status Date / Time azithromycin Allergy Intermediate Bloody Verified 01/29/23 23:10 Stools latex Allergy Intermediate Rash Verified 01/29/23 23:10 oxycodone Allergy Intermediate Agitated Verified 01/29/23 23:10 scopolamine Allergy Intermediate Tremors Verified 01/29/23 23:10 basil Allergy Rash Verified 01/29/23 23:10 acetaminophen [From Percocet] AdvReac Confusion Verified 01/29/23 23:10 Review of Systems Status of ROS: Reports: 10 or more systems reviewed and unremarkable except as noted in History and below [facility] Medical History Hypothyroidism ?E03.9 - Hypothyroidism, unspecified (ICD-10) Acute and chronic respiratory failure with hypoxia ?J96.21 - Acute and chronic respiratory failure with hypoxia (ICD-10) 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 - Unspecified convulsions (ICD-10) RODRICK (obstructive sleep apnea) ?G47.33 - Obstructive sleep apnea (adult) (pediatric) (ICD-10) ADHD ?F90.9 - Attention-deficit hyperactivity disorder, unspecified type (ICD-10) Hyperthyroidism ?E05.90 - Thyrotoxicosis, unspecified without thyrotoxic crisis or storm (ICD-10) Hydrocephalus ?G91.9 - Hydrocephalus, unspecified (ICD-10) Hyperlipidemia ?E78.5 - Hyperlipidemia, unspecified (ICD-10) Anxiety and depression ?F41.9 - Anxiety disorder, unspecified (ICD-10) ?F32.A - Depression, unspecified (ICD-10) Asthma ?J45.909 - Unspecified asthma, uncomplicated (ICD-10) Surgical History History of ear surgery ?Z98.890 - Other specified postprocedural states (ICD-10) History of strabismus surgery ?Z98.890 - Other specified postprocedural states (ICD-10) Social History Narrative: on disability since 2009; lives alone with her cat. nonsmoker, no drugs, no significant tobacco history adopted, her two adopted aunts are her family contacts. What is your current living situation?: I presently have a place to live Problems where you live: no known problems Problems where you live details: None In the past 12 months, utilities in danger of being shut off: no In past 12 months, lack of transportation kept you from medical appts, meetings, work, or getting things needed for daily living: no In the past 12 mos, have been you worried that your food would run out before you had money to buy more?: never true In the past 12 mos, the food you bought just didn't last and you didn't have money to buy more?: never true Highest level of school completed/degree received: Associate degree: academic program Smoking Status: Never smoker Do you use any of these nicotine containing products: None Second hand tobacco smoke exposure: No How often do you have a drink containing alcohol: never How often do you have six or more drinks on one occasion: Never AUDIT-C Alcohol total score: 0 Non-prescribed substance use: denies use Caffeine: Yes (Pop ocassionally) How often does anyone, including family, friends and others, physically hurt you : never How often does anyone, including family, friends and others, insult or talk down to you: never How often does anyone, including family, friends and others, threaten you with harm: never How often does anyone, including family, friends and others, scream or curse at you: never service: No Exam Narrative: Exam Narrative: EXAM GENERAL: Patient appears comfortable and well. EYES: No scleral icterus. ENT: Tympanic membranes and oropharynx normal. THYROID: no thyroid nodules or thyromegaly. LYMPH: No supraclavicular or cervical lymphadenopathy. SKIN: Visible skin seen during exam normal or with benign process only. EXT: No dependent lower extremity pedal edema. HEART: Regular rate and rhythm with no murmurs, rubs, or gallops. LUNGS: Clear to auscultation bilaterally with no crackles or wheezes. ABD: Soft, non tender, non distended. PSYCH: Good eye contact, speech is not pressured. Const: Vital Signs, click to edit/add: Vital Signs - 24 hr 04/25/23 22:00 Temperature 98.7 F Pulse Rate [Pulse Oximeter] 91 Respiratory Rate 22 Blood Pressure [Ri ght Upper Arm] 112/65 Pulse Oximetry 91 Oxygen Delivery Me thod Room Air Course Course ED Course: Patient seen and examined. Chest x-ray upon my review is unremarkable. Vital Signs Vital signs: Initial Vital Signs Temperature 98.7 F 04/25/23 22:00 Temperature Source Temporal Artery Scan 04/25/23 22:00 Pulse Rate 91 04/25/23 22:00 Pulse Rhythm Regular 04/25/23 22:00 Respiratory Rate 22 04/25/23 22:00 Blood Pressure 112/65 04/25/23 22:00 Blood Pressure Mean 80 04/25/23 22:00 Blood Pressure Position Sitting 04/25/23 22:00 Pulse Oximetry 91 04/25/23 22:00 Oxygen Delivery Method Room Air 04/25/23 22:00 Vital Signs Temperature 98.7 F 04/25/23 22:00 Pulse Rate 91 04/25/23 22:00 Respiratory Rate 22 04/25/23 22:00 Blood Pressure 112/65 04/25/23 22:00 Pulse Oximetry 91 04/25/23 22:00 Oxygen Delivery Method Room Air 04/25/23 22:00 Temperature 98.7 F 04/25/23 22:00 Pulse Rate 91 04/25/23 22:00 Respiratory Rate 22 04/25/23 22:00 Blood Pressure 112/65 12/01/23 22:00 Pulse Oximetry 91 04/25/23 22:00 Oxygen Delivery Method Room Air 04/25/23 22:00 MDM - SOB/Dyspnea MDM Narrative Medical decision making narrative: Patient is a 47-year-old woman who was he frequently in the emergency room for shortness of breath who presents with shortness of breath. She has been out of her nebulizer treatments which she now has. She has a normal exam. Normal oxygen saturation. And normal chest x-ray. At this time I did treated with 5 day course of prednisone as her to continue current medications and follow-up with her primary physician as needed. Differential Diagnosis Differential diagnosis: Likely acute exacerbation of chronic obstructive airways disease, congestive heart failure, community acquired pneumonia, asthma with exacerbation and pulmonary embolism Lab Data Labs: Lab Results 04/25/23 Range/Units 22:04 SARS-CoV-2 (PCR) Negative SARS-CoV-2 (Negative) Influenza Type A (PCR) Negative PCR FLU A (Negative) Influenza Type B (PCR) Negative PCR FLU B (Negative) RSV (PCR) Negative PCR RSV (Negative) Discharge Plan Discharge Clinical Impression: Asthma Patient Disposition: Home, Self-Care Condition: Stable Instructions: Asthma (ED) Additional Instructions: Prednisone as directed Continue current medications Follow-up with your doctor as needed Activity Level: No Restrictions Discharge Diet: Regular Prescriptions: No Action levetiracetam [Keppra] 750 mg tablet 750 mg PO BID solifenacin 10 mg tablet 10 mg PO DAILY furosemide 40 mg tablet 40 mg PO DAILY Qty: 33 0RF Rx Instructions: Take one table twice a day for three days starting 03/07/2023, then once a day after that potassium chloride 20 mEq tablet extended release 20 meq PO DAILY Qty: 33 0RF Rx Instructions: Take one tablet twice a day for three days starting 03/07/2023, then once a day after that montelukast 10 mg tablet 10 mg PO HS Myrbetriq 50 mg tablet extended release 24 hr 50 mg PO DAILY Patient Comments: albuterol sulfate 90 mcg/actuation HFA aerosol inhaler 2 puff INHALATION Q4H PRN levothyroxine 125 mcg tablet 125 mcg PO QAM cholecalciferol (vitamin D3) 50 mcg (2,000 unit) capsule 50 mcg PO DAILY paroxetine HCl 40 mg tablet 40 mg PO DAILY Patient Comments: terbinafine HCl 1 % cream topical BID furosemide 40 mg Tablet 40 mg PO DAILY Qty: 30 0RF prednisone 20 mg Tablet 40 mg PO DAILYWM Qty: 2 0RF potassium chloride 10 mEq capsule, extended release 20 meq PO DAILY Qty: 60 2RF albuterol sulfate 2.5 mg /3 mL (0.083 %) solution for nebulization 2.5 mg inhalation Q8H PRNQty: 1 0RF budesonide-formoterol [Symbicort] 160-4.5 mcg/actuation HFA aerosol inhaler 2 puff INHALATION BID Qty: 1 0RF Spiriva Respimat 2.5 mcg/actuation mist 2 puff inhalation DAILY Qty: 1 0RF ipratropium-albuterol 0.5 mg-3 mg(2.5 mg base)/3 mL solution for nebulization 3 ml inhalation Q6-8H PRNQty: 90 0RF omeprazole 20 mg capsule,delayed release(DR/EC) 40 mg PO DAILY Follow Up/Referrals: Geronimo Lamb MD [Primary Care Provider] - Stand Alone Forms: [facility] Info Instructions
[2023-04-25 23:00] LABS: PCR FLU A Negative PCR FLU A (Negative); PCR FLU B Negative PCR FLU B (Negative); PCR RSV Negative PCR RSV (Negative)
[2023-04-25 23:16] LABS: SARS PCR* Negative SARS-CoV-2 (Negative)
[2023-04-25 23:54] VITALS: BP 118/71; PULSE 84; RESP 20; O2SAT 91
== END 2023-04-26 00:05 | disposition home or self-care (01) ==
PROVIDERS: Emergency Provider Internal Medicine; PCP Family Medicine
DX: J45.909 Unspecified asthma, uncomplicated (principal)
CPT/HCPCS: 71046; 87631; 99283; 99284

== ENCOUNTER 2023-05-10 19:23 | Outpatient (CLI) | payer MEDICAID, SELFPAY | END 2023-05-10 19:24 | disposition home or self-care (01) | LOC: AMB 05-12 09:53 | PROVIDERS: PCP Family Medicine; Visit Provider Emergency Medicine | DX: M54.2 Cervicalgia (principal) | CPT/HCPCS: A0425; A0427 ==

== ENCOUNTER 2023-05-10 19:52 | Emergency (ER) | payer MEDICAID, MEDICARE, SELFPAY ==
[2023-05-10 19:56] VITALS: BP 125/90; PULSE 102; RESP 20; O2SAT 88; BMI 49.8
--- NOTE | 2023-05-10 20:18 | ED.GENADULT ---
HPI - General Adult General Chief complaint: Neck Injury/Pain Stated complaint: neck pain Time Seen by Provider: 05/10/23 20:17 History of Present Illness HPI narrative: EMS reports pt has been sick for about two days with nausea and malaise. EMS states pt turned head around 2030 tonight when she felt a sharp pain in the back of her neck. Pt states the sharp pain has now gone away but a dull ache remains. EMS reports that pain is reproduceable and illicits a gag reflex. SpO2 88% on room air. Pt reports she is recently diagnosed with COPD and is on home oxygen. 47-year-old woman presenting to the emergency department with complaint of neck pain. Well known to me and this department. Usually with respiratory concerns. Generally has not been feeling very well this week. Turned her head, demonstrates to her right. this evening and heard a crack and a sharp pain. Still seems to have some pain there at the base of the neck and when you push on it she wants to gag. She has been feeling a sense of nausea but does not well over this last few days as well. No radiating numbness or tingling or pain. Says that ibuprofen was helpful. Related Data Home Medications Medication Instructions Recorded Confirmed albuterol sulfate 90 mcg/actuation 2 puff inhalation Q4H PRN 11/30/21 05/10/23 aerosol inhaler mirabegron 50 mg tablet,extended 50 mg PO DAILY 11/30/21 05/10/23 release 24 hr (Myrbetriq) montelukast 10 mg tablet 10 mg PO HS 11/30/21 01/30/23 omeprazole 20 mg capsule,delayed 40 mg PO DAILY 02/26/22 05/10/23 release levetiracetam 750 mg tablet 750 mg PO BID 11/25/22 05/10/23 (Keppra) solifenacin 10 mg tablet 10 mg PO DAILY 11/25/22 05/10/23 cholecalciferol (vitamin D3) 50 50 mcg PO DAILY 01/30/23 05/10/23 mcg (2,000 unit) capsule levothyroxine 125 mcg tablet 125 mcg PO QAM 01/30/23 05/10/23 paroxetine HCl 40 mg tablet 40 mg PO DAILY 01/30/23 05/10/23 terbinafine HCl 1 % topical cream applic topical BID 02/01/23 Previous Rx's Medication Instructions Recorded albuterol sulfate 2.5 mg/3 mL 2.5 mg (3 mL) inhalation Q8H PRN 02/02/23 (0.083 %) solution for nebulization #1 mL budesonide-formoterol HFA 160 2 puff inhalation BID #1 g 02/02/23 mcg-4.5 mcg/actuation aerosol inhaler (Symbicort) furosemide 40 mg tablet 40 mg PO DAILY #30 tabs 02/02/23 ipratropium 0.5 mg-albuterol 3 mg 3 ml inhalation Q6-8H PRN #90 mL 02/02/23 (2.5 mg base)/3 mL nebulization soln potassium chloride 10 mEq 20 meq (2 x 10 mEq) PO DAILY #60 02/02/23 capsule,extended release caps prednisone 20 mg tablet 40 mg (2 x 20 mg) PO DAILYWM #2 02/02/23 tabs tiotropium bromide 2.5 2 puff inhalation DAILY #1 g 02/02/23 mcg/actuation mist for inhalation (Spiriva Respimat) furosemide 40 mg tablet 40 mg PO DAILY #33 tabs 03/06/23 potassium chloride 20 mEq 20 meq PO DAILY #33 tabs 03/06/23 tablet,extended release Allergies Allergy/AdvReac Type Severity Reaction Status Date / Time azithromycin Allergy Intermediate Bloody Verified 05/10/23 20:01 Stools latex Allergy Intermediate Rash Verified 05/10/23 20:01 oxycodone Allergy Intermediate Agitated Verified 05/10/23 20:01 scopolamine Allergy Intermediate Tremors Verified 05/10/23 20:01 basil Allergy Rash Verified 05/10/23 20:01 acetaminophen [From Percocet] AdvReac Confusion Verified 05/10/23 20:01 Review of Systems Status of ROS: Reports: 6 or more systems reviewed and unremarkable except as noted in History and below [facility] Medical History Hypothyroidism ?E03.9 - Hypothyroidism, unspecified (ICD-10) Acute and chronic respiratory failure with hypoxia ?J96.21 - Acute and chronic respiratory failure with hypoxia (ICD-10) 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 - Unspecified convulsions (ICD-10) RODRICK (obstructive sleep apnea) ?G47.33 - Obstructive sleep apnea (adult) (pediatric) (ICD-10) ADHD ?F90.9 - Attention-deficit hyperactivity disorder, unspecified type (ICD-10) Hyperthyroidism ?E05.90 - Thyrotoxicosis, unspecified without thyrotoxic crisis or storm (ICD-10) Hydrocephalus ?G91.9 - Hydrocephalus, unspecified (ICD-10) Hyperlipidemia ?E78.5 - Hyperlipidemia, unspecified (ICD-10) Anxiety and depression ?F41.9 - Anxiety disorder, unspecified (ICD-10) ?F32.A - Depression, unspecified (ICD-10) Asthma ?J45.909 - Unspecified asthma, uncomplicated (ICD-10) Surgical History History of ear surgery ?Z98.890 - Other specified postprocedural states (ICD-10) History of strabismus surgery ?Z98.890 - Other specified postprocedural states (ICD-10) Social History Narrative: on disability since 2009; lives alone with her cat. nonsmoker, no drugs, no significant tobacco history adopted, her two adopted aunts are her family contacts. What is your current living situation?: I presently have a place to live Problems where you live: no known problems Problems where you live details: None In the past 12 months, utilities in danger of being shut off: no In past 12 months, lack of transportation kept you from medical appts, meetings, work, or getting things needed for daily living: no In the past 12 mos, have been you worried that your food would run out before you had money to buy more?: never true In the past 12 mos, the food you bought just didn't last and you didn't have money to buy more?: never true Highest level of school completed/degree received: Associate degree: academic program Smoking Status: Never smoker Do you use any of these nicotine containing products: None Second hand tobacco smoke exposure: No How often do you have a drink containing alcohol: never How often do you have six or more drinks on one occasion: Never AUDIT-C Alcohol total score: 0 Non-prescribed substance use: denies use Caffeine: Yes (Pop ocassionally) How often does anyone, including family, friends and others, physically hurt you: never How often does anyone, including family, friends and others, insult or talk down to you: never How often does anyone, including family, friends and others, threaten you with harm: never How often does anyone, including family, friends and others, scream or curse at you: never service: No Exam Narrative: Exam Narrative: [place] neck. Palpation at the base midline of the neck and the adjacent paracervical musculature generates discomfort. She gags momentarily. Neck though appears to be supple without generating significant pain. Moving extremities without difficulty. Sensation intact. Normal swallow. Trachea midline. Slightly labored in her breathing but appears to be at her baseline. Const: Vital Signs, click to edit/add: Vital Signs - 24 hr 05/10/23 19:56 Pulse Rate [Pulse Oximeter] 102 H Respiratory Rate 20 Blood Pressure [Le ft Forearm] 125/90 H Pulse Oximetry 88 Oxygen Delivery Me thod Room Air Documenting provider has reviewed patient's vital signs: yes Course Vital Signs Vital signs: Initial Vital Signs Pulse Rate 102 H 05/10/23 19:56 Respiratory Rate 20 05/10/23 19:56 Blood Pressure 125/90 H 05/10/23 19:56 Blood Pressure Mean 101 05/10/23 19:56 Blood Pressure Position Supine 05/10/23 19:56 Pulse Oximetry 88 05/10/23 19:56 Oxygen Delivery Method Room Air 05/10/23 19:56 Vital Signs Pulse Rate 102 H 05/10/23 19:56 Respiratory Rate 20 05/10/23 19:56 Blood Pressure 125/90 H 05/10/23 19:56 Pulse Oximetry 88 05/10/23 19:56 Oxygen Delivery Method Room Air 05/10/23 19:56 Pulse Rate 102 H 05/10/23 19:56 Respiratory Rate 20 05/10/23 19:56 Blood Pressure 125/90 H 05/10/23 19:56 Pulse Oximetry 88 05/10/23 19:56 Oxygen Delivery Method Room Air 05/10/23 19:56 Medications Administered Medications: Discontinued Medications Generic Name Dose Route Start Last Admin Trade Name Freq PRN Reason Stop Dose Admin Ondansetron HCl 4 mg 05/10/23 20:32 05/10/23 21:15 Ondansetron Odt 4 Mg Tab PO 05/10/23 20:33 4 mg ONCE ONE Administration Medical Decision Making MDM Narrative Medical decision making narrative: I suspect more of a trigger point inflammatory trigger. Maybe irritated a facet. Does not have otherwise radicular symptoms. Imaging might be helpful but without more traumatic event I think x-ray of the cervical spine would be sufficient for the moment. She would appreciate an antiemetic though without some degree of sedation and with suspicion as above I'm not sure how effective it will be. Given Zofran. X-rays of the cervical spine are not complete. No gross abnormalities noted other than osteoarthritic changes by my read. Radiology over-read as below COMPARISON: Cervical spine MR September 04, 2010 FINDINGS: The lateral film includes the skullbase to the C6 inferior endplate. Bones: Alignment is normal. No fractures or significant bone lesions. Poor visualization of the dens despite multiple open mouth odontoid views. Joints: Mild to moderate multilevel degenerative disc disease. Soft tissues: Unremarkable. IMPRESSION: The cervical spine is imaged only from skull base to the C6 inferior endplate. Recommend CT for complete evaluation through the cervical thoracic junction. No fracture or subluxation in the visualized cervical spine. Poor visualization of the dens despite multiple open-mouth odontoid views. [id number] multilevel degenerative disc disease On reassessment is a little better. I did offer a soft collar which further seem to help. Radiology over-read as above was pending upon departure. See patient discharge plan Medical Records Medical records reviewed: Yes I reviewed the patient's medical records Discharge Plan Discharge Clinical Impression: Neck arthralgia, Nausea Patient Disposition: Home, Self-Care Condition: Improved Additional Instructions: Can wear this soft collar for comfort over this next week. Might benefit from icing your neck 2 - 3 times daily over the next few days. Can continue to take ibuprofen or acetaminophen. Zofran from [facility] if you need. I will call you if Radiology has anything more to say about your x-ray Prescriptions: No Action levetiracetam [Keppra] 750 mg tablet 750 mg PO BID solifenacin 10 mg tablet 10 mg PO DAILY furosemide 40 mg tablet 40 mg PO DAILY Qty: 33 0RF Rx Instructions: Take one table twice a day for three days starting 03/07/2023, then once a day after that potassium chloride 20 mEq tablet extended release 20 meq PO DAILY Qty: 33 0RF Rx Instructions: Take one tablet twice a day for three days starting 03/07/2023, then once a day after that montelukast 10 mg tablet 10 mg PO HS Myrbetriq 50 mg tablet extended release 24 hr 50 mg PO DAILY Patient Comments: albuterol sulfate 90 mcg/actuation HFA aerosol inhaler 2 puff INHALATION Q4H PRN levothyroxine 125 mcg tablet 125 mcg PO QAM cholecalciferol (vitamin D3) 50 mcg (2,000 unit) capsule 50 mcg PO DAILY paroxetine HCl 40 mg tablet 40 mg PO DAILY Patient Comments: terbinafine HCl 1 % cream topical BID furosemide 40 mg Tablet 40 mg PO DAILY Qty: 30 0RF prednisone 20 mg Tablet 40 mg PO DAILYWM Qty: 2 0RF potassium chloride 10 mEq capsule, extended release 20 meq PO DAILY Qty: 60 2RF albuterol sulfate 2.5 mg /3 mL (0.083 %) solution for nebulization 2.5 mg inhalation Q8H PRNQty: 1 0RF budesonide-formoterol [Symbicort] 160-4.5 mcg/actuation HFA aerosol inhaler 2 puff INHALATION BID Qty: 1 0RF Spiriva Respimat 2.5 mcg/actuation mist 2 puff inhalation DAILY Qty: 1 0RF ipratropium-albuterol 0.5 mg-3 mg(2.5 mg base)/3 mL solution for nebulization 3 ml inhalation Q6-8H PRNQty: 90 0RF omeprazole 20 mg capsule,delayed release(DR/EC) 40 mg PO DAILY Follow Up/Referrals: Geronimo Lamb MD [Primary Care Provider] - Stand Alone Forms: [facility] Info Instructions
--- NOTE | 2023-05-10 20:32 | CRLHL7_ITS ---
For Patients: As a result of the Century Cures Act, medical imaging exams and procedure reports are released immediately into your electronic medical record. You may view this report before your referring provider. If you have questions, please contact your health care provider. INDICATION: Cervical spine pain after quickly looking any different direction TECHNIQUE: Frontal, lateral, and open-mouth odontoid views of the cervical spine COMPARISON: Cervical spine MR September 04, 2010 FINDINGS: The lateral film includes the skullbase to the C6 inferior endplate. Bones: Alignment is normal. No fractures or significant bone lesions. Poor visualization of the dens despite multiple open mouth odontoid views. Joints: Mild to moderate multilevel degenerative disc disease. Soft tissues: Unremarkable. IMPRESSION: The cervical spine is imaged only from skull base to the C6 inferior endplate. Recommend CT for complete evaluation through the cervical thoracic junction. No fracture or subluxation in the visualized cervical spine. Poor visualization of the dens despite multiple open-mouth odontoid views. [id number] multilevel degenerative disc disease. Dictated by Denise Peñaloza MD @ 05/10/2023 10:13:21 PM (Electronically Signed)
[2023-05-10] MEDS: ONDANSETRON ODT 4 MG TAB PO (21:15)
== END 2023-05-10 22:32 | disposition home or self-care (01) ==
PROVIDERS: Emergency Provider Family Medicine; PCP Family Medicine
DX: M54.2 Cervicalgia (principal)
CPT/HCPCS: 72040; 95992; 99283; 99284; A9270

== ENCOUNTER 2023-06-08 16:37 | Outpatient (CLI) | payer MEDICAID, SELFPAY ==
--- OUTSIDE RECORDS SUMMARY | 2023-06-11 11:32 | XMS_ITS | Clinical Summary ---
Author Name Unknown Organization [facility] Address [address] [place] [address] Care Team Providers Care Biostatistician Name Role Phone Elsewhere, Pcp Primary Care Provider Unavailabl e Source Comments Patient records contain information from all sites at [facility]. For routine questions regarding patient records, call [phone] during business hours, M-F 8:00 AM - 5:00 PM Central Time. Record requests for emergency care only can be directed to [phone] at any time.[facility] Allergies Active Allergy Reactions Criticality Noted [...] Clinical Communication [facility] [place], [place] [address] [place] [address] Violetta Mitchell, RAlexusN. Treatment Questions from Last [...] Sex Assigned at Female 06/02/2018 2:11 PM MEDICAL LIBRARIAN Gender Identity Female 06/02/2018 2:11 PM MEDICAL LIBRARIAN Sexual Orientation Choose not to disclose 2018 2:11 PM MEDICAL LIBRARIAN Last Filed Vital Signs Vital Sign Reading [...] this topic Medical Devices Implanted Type Area Sheet Metal Engineer Device Identifier Shelf Expiration Date Model / Serial / Lot Ear Implant- [id number] Implanted:11/24 (Quantity not on file) Ear Implant Ear Olympus Bernice Vega TORP Plasti-pore [id number] / / [id number] Description:[facility], [place], [place]. Ear implant-Vega TOPR Plasti-pore MRI Safe Care Teams Biostatistician Relationship Specialty Start Date End Date Elsewhere, Pcp PCP - General Internal Medicine 12/04/18
--- OUTSIDE RECORDS SUMMARY | 2023-06-11 11:32 | XMS_ITS ---
Author Name Unknown Organization [facility] Address [address] [place] [address] Care Team Providers Care Social Work Case Manager Name Role Phone Unavailable Unavailable Unavailable Surgery Details Not on file Complications Check Surgery Details section. Procedure Estimated Blood Loss Check Surgery Details section. Procedure Findings Check Surgery Details section. Procedure Specimens Taken Check Surgery Details section.
--- OUTSIDE RECORDS SUMMARY | 2023-06-11 11:32 | XMS_ITS | Referral Summary ---
Author Name Unknown Organization [facility] Address [address] [place] [address] Care Team Providers Care Toby Maker Name Role Phone Elsewhere, Pcp Primary Care Provider Unavailabl e Source Comments Patient records contain information from all sites at [facility]. For routine questions regarding patient records, call [phone] during business hours, M-F 8:00 AM - 5:00 PM Central Time. Record requests for emergency care only can be directed to [phone] at any time.[facility] Encounters Date Type Department Care Team Description 05/21/2023 Clinical Communication Julio C ortega [facility] in [place], [place] [address] [place] [address] Violetta Mitchell R.N. Treatment Questions from Last [...] Sex Assigned at Female 06/02/2018 2:11 PM CAR MANAGER Gender Identity Female 06/02/2018 2:11 PM CAR MANAGER Sexual Orientation Choose not to disclose 2018 2:11 PM CAR MANAGER Last Filed Vital Signs Vital Sign Reading [...] on file Medical Devices Implanted Type Area Cognos Device Identifier Shelf Expiration Date Model / Serial / Lot Ear Implant- [id number] Implanted:11/24 (Quantity not on file) Ear Implant Ear Olympus Bernice Vega TORP Plasti-pore [id number] / / [id number] Description:[facility], [place], [place]. Ear implant-Vega TOPR Plasti-pore MRI Safe Care Teams Toby Maker Relationship Specialty Start Date End Date Elsewhere, Pcp PCP - General Internal Medicine 12/04/18
--- OUTSIDE RECORDS SUMMARY | 2023-06-11 11:32 | XMS_ITS | Encounter Summary ---
Author Name Unknown Organization [facility] Address [address] [place] [address] Care Team Providers Care Butcher Assistant Name Role Phone Elsewhere, Pcp Primary Care Provider Unavailabl e Encounter Details Date Type Department Care Team (Late st Contact Info) Description 01/13/2023 Episode Changes Department of Ophthalmology in [place], [place] [address] [place] [address] Jaquelin Gracia Social History Tobacco Use Types [...] Sex Assigned at Female 06/02/2018 2:11 PM EQUIP TECH Gender Identity Female 06/02/2018 2:11 PM EQUIP TECH Sexual Orientation Choose not to disclose 2018 2:11 PM EQUIP TECH documented as of this encounter Plan of Treatment Not on file documented as of this encounter Visit Diagnoses Not on filedocumented in this encounter Additional Health Concerns Assessment Noted Time PHQ-9 Depression Total Score: 14 019 3:26 PM CDT documented as of this encounter Care Teams Butcher Assistant Relationship Specialty Start Date End Date Elsewhere, Pcp PCP - General Internal Medicine 12/04/18 documented as of this encounter
--- OUTSIDE RECORDS SUMMARY | 2023-06-11 11:32 | XMS_ITS | Encounter Summary ---
Author Name Unknown Organization [facility] Address [address] [place] [address] Care Team Providers Care Camp Recreation Specialist Name Role Phone Elsewhere, Pcp Primary Care Provider Unavailabl e Reason for Visit * Reason Onset Date Comments Treatment Questions 05/21/2023 Encounter Details Date Type Department Care Team (Latest Contact Info) Description 05/21/2023 Clinical Communication Julio C Per[facility] in [place], [place] [address] [place] [address] Violetta Mitchell R.N. [address] [place] [phone] Treatment Questions Social History Tobacco Use Types [...] Sex Assigned at Female 06/02/2018 2:11 PM MACHINE BENDER Gender Identity Female 06/02/2018 2:11 PM MACHINE BENDER Sexual Orientation Choose not to disclose 2018 2:11 PM MACHINE BENDER documented as of this encounter Plan of Treatment Not on file documented as of this encounter Visit Diagnoses Not on filedocumented in this encounter Additional Health Concerns Assessment Noted Time PHQ-9 Depression Total Score: 14 10/27/ 019 3:26 PM CDT documented as of this encounter Care Teams Camp Recreation Specialist Relationship Specialty Start Date End Date Elsewhere, Pcp PCP - General Internal Medicine 12/04/18 documented as of this encounter
--- OUTSIDE RECORDS SUMMARY | 2023-06-11 11:33 | XMS_ITS | Encounter Summary ---
Author Name Unknown Organization [facility] Address [address] [place] [address] Care Team Providers Care Steel Pan Form Placing Supervisor Name Role Phone Elsewhere, Pcp Primary Care Provider Unavailabl e Encounter Details Date Type Department Care Team (Latest Contact Info) Description 01/13/2023 12:45 PM CDT Ancillary Procedure Department of Ophthalmology in [place], [place] [address] [place] [address] Emerson Delvalle M.D. [address] [place] [address] Age Related Nuclear Cataract Bilateral Social History [...] Sex Assigned at Female 06/02/2018 2:11 PM PHOTOGRAPHIC PLATE MAKER Gender Identity Female 06/02/2018 2:11 PM PHOTOGRAPHIC PLATE MAKER Sexual Orientation Choose not to disclose 2018 2:11 PM PHOTOGRAPHIC PLATE MAKER documented as of this encounter Plan of [...] documented as of this encounter Care Teams Steel Pan Form Placing Supervisor Relationship Specialty Start Date End Date Elsewhere, Pcp PCP - General Internal Medicine 12/04/18 documented as of this encounter
--- OUTSIDE RECORDS SUMMARY | 2023-06-11 11:33 | XMS_ITS | Encounter Summary ---
Author Name Unknown Organization [facility] Address [address] [place] [address] Care Team Providers Care Cordage Sales Representative Name Role Phone Elsewhere, Pcp Primary Care Provider Unavailabl e Encounter Details Date Type Department Care Team (Latest Contact Info) Description 01/13/2023 1:00 PM CDT Ancillary Procedure Department of Ophthalmology in [place], [place] [address] [place] [address] Emerson Delvalle M.D. [address] [place] [address] Age Related Nuclear Cataract Bilateral Social History [...] Sex Assigned at Female 06/02/2018 2:[address] MAGISTRATE Gender Identity Female 06/02/2018 2:[address] MAGISTRATE Sexual Orientation Choose not to disclose 2018 2:[address] MAGISTRATE documented as of this encounter Plan of [...] documented as of this encounter Care Teams Cordage Sales Representative Relationship Specialty Start Date End Date Elsewhere, Pcp PCP - General Internal Medicine 12/04/18 documented as of this encounter
--- OUTSIDE RECORDS SUMMARY | 2023-06-11 11:33 | XMS_ITS | Encounter Summary ---
Author Name Unknown Organization [facility] Address [address] [place] [address] Care Team Providers Care Medicaid Collection Specialist Name Role Phone Elsewhere, Pcp Primary [...] Sex Assigned at Female 06/02/2018 2:11 PM PARTS IDENTIFIER Gender Identity Female 06/02/2018 2:11 PM PARTS IDENTIFIER Sexual Orientation Choose not to disclose 2018 2:11 PM PARTS IDENTIFIER documented as of this encounter Plan of [...] documented as of this encounter Care Teams Medicaid Collection Specialist Relationship Specialty Start Date End Date Elsewhere, Pcp PCP - General Internal Medicine 12/04/18 documented as of this encounter
--- OUTSIDE RECORDS SUMMARY | 2023-06-11 11:33 | XMS_ITS ---
Author Name Unknown Organization [facility] Address [address] [place] [address] Care Team Providers Care Pilot Steam Yacht Name Role Phone Elsewhere, Pcp Primary Care Provider Unavailabl e Transplant Episode Lung Candidate [facility] ([place], [place]) - [facility] Referred on 03/27/2023 Marked as Active on 03/27/2023 Lung CoordinatorCoordinator Transplant, R.N. Phone: N/A Fax: N/A Email: N/A Care Team Name Role Phone Fax Email Coordinator Transplant, R.N. Lung Coordinator N/A N /A N/A Events Pre-Transplant Referred: 03/27/2023
--- OUTSIDE RECORDS SUMMARY | 2023-06-11 11:33 | XMS_ITS | Encounter Summary ---
Author Name Unknown Organization [facility] Address [address] [place] [address] Care Team Providers Care Oracle Programmer Name Role Phone Elsewhere, Pcp Primary Care Provider Unavailabl e Reason for Visit * Reason Comments Cataract * Appointment Request (Routine) - Closed Specialty Diagnoses / Procedures Referred By Contsanju t Referred To Contact Ophthalmology Diagnoses Cataract Senile Cortical Roxanne De León M.D. [address] [place] [address] Referral ID Status Reason Start Date Expiration Date Visits Re quested Visits Authorized [id number] Closed 06/07/2022 06/07/2023 1 1 Encounter Details Date Type Department Care Team (Latest Contact Info) Description 01/13/2023 2:00 PM CDT Comprehensive Visit Department of Ophthalmology in [place], [place] [address] [place] [address] Emerson Delvalle M.D. [address] [place] [address] Keratoconus Bilateral (Primary Dx); Astigmatism Irregular Bilateral; [...] Sex Assigned at Female 06/02/2018 2:11 PM GROUND CREW LINES PERSON Gender Identity Female 06/02/2018 2:11 PM GROUND CREW LINES PERSON Sexual Orientation Choose not to disclose 2018 2:11 PM GROUND CREW LINES PERSON documented as of this encounter Progress Notes [...] documented as of this encounter Care Teams Oracle Programmer Relationship Specialty Start Date End Date Elsewhere, Pcp PCP - General Internal Medicine 12/04/18 documented as of this encounter
--- OUTSIDE RECORDS SUMMARY | 2023-06-11 11:33 | XMS_ITS | Encounter Summary ---
Author Name Unknown Organization [facility] Address [address] [place] [address] Care Team Providers Care Installers Mechanical Name Role Phone Elsewhere, Pcp Primary Care Provider Unavailabl e Reason for Visit * Reason Onset Date Comments Appointment 10/07/2022 Encounter Details Date Type Department Care Team (Latest Contact Info) Description 10/07/2022 Clinical Communication Department of Ophthalmology in [place], [place] [address] [place] [address] Provider, Unknown Appointment Social History Tobacco Use [...] Sex Assigned at Female 06/02/2018 2:11 PM EVENING OR NIGHT NURSE SUPERVISOR Gender Identity Female 06/02/2018 2:11 PM EVENING OR NIGHT NURSE SUPERVISOR Sexual Orientation Choose not to disclose 2018 2:11 PM EVENING OR NIGHT NURSE SUPERVISOR documented as of this encounter Plan of Treatment Not on file documented as of this encounter Visit Diagnoses Not on filedocumented in this encounter Additional Health Concerns Assessment Noted Time PHQ-9 Depression Total Score: 14 019 3:26 PM CDT documented as of this encounter Care Teams Installers Mechanical Relationship Specialty Start Date End Date Elsewhere, Pcp PCP - General Internal Medicine 12/04/18 documented as of this encounter
--- OUTSIDE RECORDS SUMMARY | 2023-06-11 11:33 | XMS_ITS | Clinical Summary ---
Author Name Unknown Organization [facility] Address [place], [place] [address] Care Team Providers Care Automatic Paint Sprayer Operator Name Role Phone Paolo Limon MD Unavailable aTlon Durham MD Unavailable [phone] Laura Gardner PsyD, Unavailable [phone] Geronimo Lamb MD Primary Care Provider Allergies [...] Dispensed Refills Start Date End Date Status [facility], medication conference planner with alarm 1 unit 0 04/22/2014 Active diphenhydrAMINE (BENADRYL) 25 mg capsule Take 1 capsule by mouth each time if needed. 0 12/15/2014 Active albuterol (PROVENTIL) 0.083 % neb solutionIndication s:Moderate persistent asthma, uncomplicated Inhale 3 mL via a nebulizer every 6 hours if needed for Shortness Of Breath or Wheezing. 1 box 1 12/28/2014 Active Symbicort 160-4.5 mcg/actuation (160-4.5 mcg each [...] before breakfast. 60 Tablet 5 03/20/2023 Active mirabegron EXTENDED-release (MYRBETRIQ) 50 mg tabletIndications: [...] times daily. 60 Tablet 3 05/27/2023 Active fexofenadine (ROJAS) 180 mg tablet Take 1 tablet by mouth once daily with a meal. 0 10/05/2015 4 Discontinue d(*Patient states no longer taking) solifenacin (VESICARE) 10 mg tabletIndications: Urge urinary incontinence TAKE 1 TABLET BY MOUTH EVERY DAY 90 Tablet 1 04/02/2023 4 Discontinue d(*Med complete/Re gimen complete/Le salud of care change) levETIRAcetam (KEPPRA) 750 mg tabletIndications: Seizure (HC) TAKE 1 TABLET (750 MG) BY MOUTH TWO TIMES DAILY. 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 Thought to be functional. Referred [...] Encounters Date Type Department Care Team Description 06/10/2023 2:05 PM RAILCAR SWITCHER Office Visit [facility] [address] [place] [address] Geronimo Lamb MD Ear Problem (Left ear pain, started about a week ago); Dizziness (Spinning and non-spinning, started about a month ago); Headache (Off and on started about 6 weeks ago) 06/10/2023 Travel 06/08/2023 Orders Only [facility] Scanner 1 scan: (1-Ord) [facility], XR CHEST 2V, 06/08/2023 05/27/2023 3:00 PM RAILCAR SWITCHER Office Visit [facility] [place] [facility] [address] [facility] [address] Dread Villavicencio MD Follow Up (Seizure ); Dizziness (2 weeks) 05/27/2023 Travel 05/15/2023 1:40 PM RAILCAR SWITCHER Office Visit [facility] [address] [place] [address] Geronimo Lamb MD Shortness Of Breath; Throat Problem 05/15/2023 Travel 05/15/2023 Telephone [facility] [address] Geronimo Lamb MD Lab 05/10/2023 Orders [address] [facility] Scanner 1 scan: (1-Ord) [facility], XR CERVICAL SPINE 2-3V, 05/10/2023 04/30/2023 10:00 AM RAILCAR SWITCHER Telemedicine [facility] [address] [place] [address] Telehealth; Medical Nutrition Therapy 04/24/2023 Refill [facility] [address] [facility] [place] [address] Geronimo Lamb MD Refill Request (Bupropion, Levetiracetam, Albuterol Hfa) 04/18/2023 Patient Outreach [facility] Care Management - Advanced Care Team [address] [place], [place] [id number] [place], [facility] Population Health (Social work community resource navigation. /) 04/14/2023 Telephone [facility] [address] [facility] [place] [address] Geronimo Lamb MD Questions (pulmonary rehab questions ) 04/10/2023 10:35 AM RAILCAR SWITCHER Office Visit [facility] [address] [facility] [place] [address] Geronimo Lamb MD Follow Up 04/10/2023 Travel 04/09/2023 8:30 AM RAILCAR SWITCHER Telemedicine [facility] [address] [place] [address] Telehealth; Medical Nutrition Therapy 04/02/2023 Refill [facility] [address] [place] [address] Geronimo Lamb MD Refill Request (Myrbetriq) 04/02/2023 Refill [facility] [address] [place] [address] Geronimo Lamb MD Refill Request (Solifenacin) 03/20/2023 Telephone [facility] [address] [place] [address] Geronimo Lamb MD Results 03/20/2023 Orders Only [facility] [address] [place] [address] Geronimo Lamb MD <No scans attached> 03/19/2023 11:20 AM CDT Office Visit [facility] [address] [place] [address] Geronimo Lamb MD ER Follow up ([facility], 03/06/2023) 03/19/2023 Travel 03/17/2023 Orders Only [facility] Scanner 1 scan: (1-Ord) [facility], 03/17/2023 from Last 3 Months Immunizations Name Administration Dates Next Due COVID-19 Vaccine Spikevax (M oderna 50mcg/0.5mL) 12YO+ 3442-0031 Formula PF 03/19/2023 COVID-19 vaccine (Pfizer-Bio NTech 30mcg/0.3mL) 12YO+ BIVALENT PF, MDV 05/01/2022 [...] 04/25/2008 Smokeless Tobacco: Never Tobacco Cessation:Counseling Given: No Alcohol Use Standard Drinks/Week Comments No 0 [...] Sign Reading Time Taken Comments Blood Pressure 138/85 06/10/2023 2:35 PM RAILCAR SWITCHER Pulse 103 06/10/2023 2:16 PM RAILCAR SWITCHER Temperature 36.7 ??C (98.1 ??F) 05/15/2023 1:42 PM CS T Respiratory Rate 90 06/10/2023 2:35 PM RAILCAR SWITCHER Oxygen Saturation 95% 06/10/2023 2:16 PM RAILCAR SWITCHER Inhaled Oxygen Concentration - - Weight 108.9 kg (240 lb) 06/10/2023 2:16 PM RAILCAR SWITCHER Height 142.2 cm (4' 8) 02/10/2023 3:17 PM CDT Body Mass Index 53.81 02/10/2023 3:17 PM CDT Plan of Treatment Upcoming Encounters Date Type Department Care Team (Late st Contact Info) Description 07/10/2023 3:20 PM RAILCAR SWITCHER Office Visit [facility] [address] [place] [address] Geronimo Lamb MD [address] [place] [address] 07/24/2023 3:00 PM RAILCAR SWITCHER Office Visit [facility] [address] [place] [address] Paolo Limon MD [address] [place] [address] Health Maintenance Due Date Last Done Comments [...] 05/01/2022 Pneumococcal series for age 6-64 Completed 01/15/20, 09/14/2013 COVID-19 vaccine series Completed 03/19/20, 05/01/2022, 08/29/2021, Additional history exists Influenza for age 9-49 Completed , 05/01/2022, 03/09/2018, Additional history exists Procedures Procedure Name Priority Date/Time Associated Diagnosis Comments SCAN-RADIOLOGY REPORT 06/08/2023 12:00 AM RAILCAR SWITCHER COVID-19 MOLECULAR Routine 05/15/2023 2: 00 PM RAILCAR SWITCHER Flu-like symptoms INFLUENZA A/B PCR Routine 05/15/2023 2:0 0 PM RAILCAR SWITCHER Flu-like symptoms SCAN-RADIOLOGY REPORT 05/10/2023 12:00 AM RAILCAR SWITCHER T4,FREE Routine 03/19/2023 12:35 PM CDT Hypothyroidism [...] CDT from Last 3 Months Results * SCAN-RADIOLOGY REPORT (06/08/2023 12:00 AM RAILCAR SWITCHER) Only the most recent of2 resultswithin the time period is included. Anatomical Region Laterality Modality Other Scanner OTHER * COVID-19 MOLECULAR (05/15/2023 2:00 PM RAILCAR SWITCHER) COVID 19 [facility] MOLECULAR Negative Negative 05/16/2023 1:22 AM RAILCAR SWITCHER [facility] [employer] LABORAT[facility]-CE NTRAL LABORATORY TESTING LABORATORY [facility] Laboratory 05/16/2023 1:22 AM RAILCAR SWITCHER [facility] LABOR[facility]-CE NTRAL LABORATORY Comment:Specimen submitted t o [facility] Laboratory for testing. Other SPECIMEN FROM NASAL FOSSAE / Unknown Non-Blood / Unknown 05/15/2023 2:00 PM RAILCAR SWITCHER 05/15/2023 2:14 PM RAILCAR SWITCHER Narrative [facility] - 05/16/2023 1:22 AM RAILCAR SWITCHER All PCR tests are subject to false [...] Geronimo Lamb MD MICROBIOLOGY Performing Organization Address City/[facility]/ZIP Co de Phone Number [facility] [address] [place] [address], * INFLUENZA A/B PCR (05/15/2023 2:00 PM RAILCAR SWITCHER) INFLUENZA A PCR Negative 05/16/2023 1:22 AM RAILCAR SWITCHER [facility] TRAL [facility]ORAT[facility] INFLUENZA B PCR Negative 05/16/2023 1:22 AM RAILCAR SWITCHER [facility] TR[facility] Other SPECIMEN FROM [facility] FOSSAE / Unknown Non-Blood / Unknown 05/15/2023 2:00 PM RAILCAR SWITCHER 05/15/2023 2:14 PM RAILCAR SWITCHER Geronimo Lamb MD MICROBIOLOGY [facility] [address] [place] [address], * HEMOGLOBIN A1C SCREENING (03/19/2023 12:35 PM CDT) HEMOGLOBIN A1C SCREENING 5.9 <=6.4 % 03/20/2023 7:52 AM CDT [facility] Blood BLOOD SPECIMEN / Unknown Butterfly / Unknown 03/19/2023 12:35 PM CDT 03/19/2023 12:38 PM CDT Narrative [facility] - 03/20/2023 7:52 AM CDT ? (<5.7%) ?Normal ? (5.7% to 6.4%) ? Indicates prediabetes ? (>=6.5%) ? Confirms diabetes Falsely low levels may be seen with: Recent Transfusion, Recent Significant Blood Loss, Hemolytic Diseases, or Falsely elevated levels may be seen with: Untreated Anemias, Splenectomy Geronimo Lamb MD CHEMISTRY Performing Organization Address [facility] Co de Phone Number [facility] [address] [place] [address], [place] * (ABNORMAL) TSH WITH REFLEX (03/19/2023 12:35 PM CDT) TSH 0.12(L) 0.27 - 4.20 uIU/mL 03/20/2023 8:55 AM CDT [facility] Blood BLOOD SPECIMEN / Unknown Butterfly / Unknown 03/19/2023 12:35 PM CDT 03/19/2023 12:38 PM CDT Narrative [facility] - 03/20/2023 8:55 AM CDT In Adults, TSH values between 5.00 and 10.00 uIU/ml do not necessarily indicate the presence of Hypothyroidism. Correlation with clinical findings such as presence of goiter and/or Thyroperoxidase (TPO) Antibody may be helpful. For more information please refer to SIVAN 2004; 291: 228-238. Geronimo Lamb MD CHEMISTRY Performing Organization Address [facility] Co de Phone Number [facility] [address] [place] [address], [place] * (ABNORMAL) LIPID PANEL W REFLEX MEASURED LDL (03/19/2023 12:35 PM CDT) Pathologist [facility] CHOLESTEROL,TOTAL 258(H) 100 - 199 mg/dL 03/20/2023 8:11 AM CDT [facility] Comment: Cholesterol, Total Reference Ranges Desirable <200 mg/dL Borderline 200-239 mg/dL High >=240 mg/dL TRIGLYCERIDES 159(H) <150 mg/dL 03/20/2023 8:11 AM CDT [facility] HDL CHOLESTEROL 55 >40 mg/dL 8:11 AM CDT [facility] NON-HDL CHOLESTEROL 203(H) <145 mg/dl 03/20/2023 8:11 AM CDT [facility] CHOL/HDL RATIO 4.69(H) <4.50 03/20/2023 8:11 AM CDT [facility] LDL CHOLESTEROL 171(H) <=130 mg/dL 03/20/2023 8:11 AM CDT [facility] VLDL CHOLESTEROL 32(H) <=30 mg/dL 03/20/2023 8:11 AM CDT [facility] PROVIDER ORDERED STATUS RANDOM 03/20/2023 8:11 AM CDT [facility] Blood BLOOD SPECIMEN / Unknown Butterfly / Unknown 03/19/2023 12:35 PM CDT 03/19/2023 12:38 PM CDT Geronimo Lamb MD CHEMISTRY [facility] [address] [place] [id number] * T4,FREE (03/19/2023 12:35 PM CDT) T4,FREE 1.44 0.93 - 1.70 ng/dL 03/20/2023 8:[address] [facility] Blood BLOOD SPECIMEN / Unknown Butterfly / Unknown 03/19/2023 12:35 PM CDT 03/19/2023 12:38 PM CDT Geronimo Lamb MD CHEMISTRY [facility] [address] [place] [address], * MAGNESIUM (03/19/2023 12:35 PM CDT) Pathologist [facility] MAGNESIUM 1.7 1.6 - 2.6 mg/dL 03/20/2023 8:11 AM CDT [facility] Blood BLOOD SPECIMEN / Unknown Butterfly / Unknown 03/19/2023 12:35 PM CDT 03/19/2023 12:38 PM CDT Geronimo Lamb MD CHEMISTRY Performing Organization Address City/[facility]/ZIP Co de Phone Number [facility] [address] [place] [address], * (ABNORMAL) BASIC METABOLIC PANEL (03/19/2023 12:35 PM CDT) Pathologist [facility] SODIUM 141 136 - 145 mmol/L 03/20/2023 8:11 AM CDT [facility] POTASSIUM 4.4 3.5 - 5.1 mmol/L 03/20/2023 8:11 AM CDT [facility] CHLORIDE 100 98 - 107 mmol/L 03/20/2023 8:11 AM CDT [facility] CO2,TOTAL 28 22 - 29 mmol/L 03/20/2023 8:11 AM CDT [facility] ANION GAP 13 5 - 18 03/20/2023 8:11 AM CDT [facility] GLUCOSE 93 70 - 99 mg/dL 03/20/2023 8:11 AM CDT [facility] CALCIUM 10.0 8.6 - 10.0 mg/dL 03/20/2023 8:11 AM CDT [facility] BUN 9 6 - 20 mg/dL 03/20/2023 8:11 AM CDT [facility] CREATININE 0.84 0.50 - 0.90 mg/dL 03/20/2023 8:11 AM CDT [facility] BUN/CREAT RATIO 11 10 - 20 8:[address] [facility] eGFR 87(L) >90 mL/min/1.7 3m2 03/20/2023 8:[address] [facility] Comment:As of 2021, eG FR is calculated by the CKD-EPI creatinine equation without race adjustment. ??eGFR can be influenced by muscle mass, exercise, and diet. ??The reported eGFR is an estimation only and is only applicable if the renal function is stable. Blood BLOOD SPECIMEN / Unknown Butterfly / Unknown 03/19/2023 12:35 PM CDT 03/19/2023 12:38 PM CDT Geronimo Lamb MD [facility] [address] [place] [address], * SCAN-PULMONARY FUNCTION TEST (03/17/2023 12:00 AM CDT) Scanner OTHER from Last 3 Months Care Teams Automatic Paint Sprayer Operator Relationship Specialty Start Date End Date Geronimo Lamb MD [address] [place] [address] PCP - General Family Practice 04/23/21 Paolo Limon MD Sleep Medicine 10/28/11 Talon Durham MD Neurology Neurology 11/26/11 Laura Gardner PsyD, [facility] Psychology 09/14/13
--- OUTSIDE RECORDS SUMMARY | 2023-06-11 11:33 | XMS_ITS | Encounter Summary ---
Author Name Unknown Organization [facility] Address [address] [place] [address] Care Team Providers Care Sports Bookmaker Name Role Phone Elsewhere, Pcp Primary Care Provider Unavailabl e Encounter Details Date Type Department Care Team (Latest Contact Info) Description 06/07/2022 Clinical Communication Department of Ophthalmology in [place], [place] [address] [place] [address] Emerson Delvalle M.D. [address] [place] [address] Social History Tobacco Use Types Packs/Day Years [...] Sex Assigned at Female 06/02/2018 2:11 PM DEVIL DOG Gender Identity Female 06/02/2018 2:11 PM DEVIL DOG Sexual Orientation Choose not to disclose 2018 2:11 PM DEVIL DOG documented as of this encounter Miscellaneous Notes * Telephone Encounter - Lexi Nails, C.O.AAlexus - 06/10/2022 7:45 AM CST Ordered. L DOG * Telephone Encounter - Roderick Rose - 06/07/2022 5:56 PM CST Please order for Dr. Delvalle, Cataract Per DIPPING MACHINE OPERATOR: Panel #[id number] Panel #[id number] Thank you, Roderick L DOG documented in this encounter Plan of Treatment [...] Delvalle M.D. OPHTH PHOTOGRAPHY Performing Organization Address [facility] Co de Phone Number OPHTHALMOLOGY IMAGING EXAM * [facility] (Pentacam) - OU - Both Eyes (01/13/2023 1:07 PM CDT) Narrative OPHTHALMOLOGY IMAGING EXAM - 01/13/2023 4:00 PM CDT Right eye difficult after several attempts Irregular astigmatism with posterior elevation both eyes, consistent with Emerson Delvalle M.D. OPHTH OTHER Performing Organization Address [facility]/ZIP Co de Phone Number OPHTHALMOLOGY IMAGING EXAM documented in this encounter Visit Diagnoses Diagnosis Age Related Nuclear Cataract Bilateral- Primary Age Related Nuclear Cataract Bilateral Age Related Nuclear Cataract Bilateral documented in this encounter Additional Health Concerns Assessment Noted Time PHQ-9 Depression Total Score: 14 06/04/2 019 3:26 PM CDT documented as of this encounter Care Teams Sports Bookmaker Relationship Specialty Start Date End Date Elsewhere, Pcp PCP - General Internal Medicine 12/04/18 documented as of this encounter
== END 2023-06-08 16:38 | disposition home or self-care (01) ==
LOC: AMB 06-11 11:30
PROVIDERS: PCP Family Medicine; Visit Provider Family Medicine
DX: R06.02 Shortness of breath (principal)
CPT/HCPCS: A0425; A0427

== ENCOUNTER 2023-06-08 16:45 | Emergency (ER) | payer MEDICAID, SELFPAY ==
[2023-06-08 17:06] VITALS: BP 135/87; PULSE 99; RESP 28; TEMP 36.4; O2SAT 95; BMI 53.0
[2023-06-08 17:11] VITALS: O2SAT 95
[2023-06-08 17:20] VITALS: BP 138/83; PULSE 87; RESP 24; TEMP 36.4; O2SAT 95
--- NOTE | 2023-06-08 17:27 | CRLHL7_ITS ---
For Patients: As a result of the Cures Act, medical imaging exams and procedure reports are released immediately into your electronic medical record. You may view this report before your referring provider. If you have questions, please contact your health care provider. INDICATION: Shortness of breath. COMPARISON: 04/25/2023. FINDINGS: PA and lateral views of the chest were obtained. The cardiac silhouette and pulmonary vasculature are within normal limits. The lungs are clear bilaterally. IMPRESSION: No evidence of acute pulmonary disease. Dictated by Anderson Epstein MD @ 06/08/2023 5:38:23 PM (Electronically Signed)
[2023-06-08 17:37] VITALS: BP 116/86; PULSE 90; RESP 24; O2SAT 97
[2023-06-08 17:51] LABS: Basophils Absolute Auto 0.04 K/uL (0.00-0.30); Basophils Percent Auto 0.4 % (0.0-3.0); Eosinophils Absolute Auto 0.19 K/uL (0.00-0.50); Eosinophils Percent Auto 2.1 % (0.0-7.0); Hematocrit 42.3 % (33.0-51.0); Hemoglobin* 13.6 gm/dL (12.0-16.0); Immature Granulocytes Abs Auto 0.06 K/uL (0.00-0.30); Immature Granulocytes Pct Auto 0.7 %; Lymphocytes Percent Auto 19.2 % (20-44); Mean Corpuscular HGB Conc 32 gm/dL (32-36); Mean Corpuscular Hemoglobin 29 pg (26-34); Mean Corpuscular Volume 91 fL (80-100); Monocytes Percent Auto 6.5 % (0.0-11.0); Neutrophils Absolute Auto 6.44 K/uL (1.7-7.0); Neutrophils Percent Auto 71.1 % (42.0-72.0); Platelet Count* 212 K/uL (140-440); RDW Coefficient of Variation % 13.3 % (11.5-15.5); Red Blood Count 4.63 m/uL (4.00-5.20); White Blood Count* 9.06 K/uL (4.50-11.00)
--- OUTSIDE RECORDS SUMMARY | 2023-06-08 17:52 | XMS_ITS | Clinical Summary ---
Author Name Unknown Organization [facility] Address [address] [place] [address] Care Team Providers Care Staffing Executive Name Role Phone Elsewhere, Pcp Primary Care Provider Unavailabl e Source Comments Patient records contain information from all sites at [facility]. For routine questions regarding patient records, call [phone] during business hours, M-F 8:00 AM - 5:00 PM Central Time. Record requests for emergency care only can be directed to [phone] at any time.[facility] Allergies Active Allergy Reactions Criticality Noted Date Comments Azithromycin Diarrhea,Nausea And Vomiting 02/23/2009 Bloody stools Basil Rash 09/17/2017 Dextroamphetamine-Amphe tamine Rash 09/21/2014 Flu Vac Qv 2016(18yr Up)Rc(Pf) GI intolerance 09/17/2017 Latex Rash 09/21/2014 Oxycodone-Acetaminophen Other (see comments) Lethargic-- Memory loss--aggression Scopolamine Other (see comments) 05/10/2015 Medications Medication Sig Dispensed Refills Start Date End Date Status budesonide (PULMICORT FLEXHALER) 180 mcg/actuation inhaler Inhale 1 puff 2 (two) times a day. 0 03/07/2017 Active omeprazole (PriLOSEC) 20 mg capsule Take 1 capsule by mouth 2 (two) times a day. 0 01/22/2017 Active albuterol (ACCUNEB) 2.5 mg /3 mL nebulizer solution Take 3 mL by nebulization every 6 (six) hours as needed. 0 02/24/2017 Active ibuprofen (ADVIL,MOTRIN) 200 mg tablet Take 200 mg by mouth every 6 (six) hours as needed for pain. 0 Active acetaminophen (TYLENOL) 325 mg tablet Take 325 mg by mouth every 4 (four) hours as needed for pain. 0 Active cetirizine (ZyrTEC) 10 mg tablet Take 10 mg by mouth daily. 0 Active nystatin (NYSTOP) 100,000 unit/gram powder Apply 1 application topically 2 (two) times a day. 30 g 1 11/11/2017 Active Additional Information Patient not taking.Reported on 01/13/2023 LORazepam (ATIVAN) 0.5 mg tablet Take 1 tablet (0.5 mg total) by mouth See Admin Instructions. Take 30 minutes prior to procedure. 1 tablet 0 11/14/2017 Active levothyroxine (SYNTHROID, LEVOTHROID) 175 mcg tablet Take 1 tablet (175 mcg total) by mouth once daily. 90 tablet 3 02/15/2018 Active albuterol (PROVENTIL HFA,VENTOLIN HFA) 90 mcg/actuation inhaler Inhale 2 puffs 4 (four) times a day. 3 Inhaler 3 03/06/2018 Active meclizine (ANTIVERT) 12.5 mg tablet Take 1-2 tablets (12.5-25 mg total) by mouth 3 (three) times a day as needed for dizziness. 60 tablet 1 03/11/2018 Active Additional Information Patient not taking.Reported on 01/13/2023 diazePAM (VALIUM) 5 mg tablet Take 1 tablet (5 mg total) by mouth once for 1 dose. Take 30 minutes prior to MRI. 1 tablet 0 03/20/2018 Active prochlorperazine (COMPAZINE) 5 mg tablet Take 1 tablet (5 mg total) by mouth 3 (three) times a day as needed for nausea. 30 tablet 0 06/30/2018 Active Additional Information Patient not taking.Reported on 01/13/2023 diphenhydrAMINE (BENADRYL) 25 mg capsule Take 25 mg by mouth. 0 12/15/2014 Acti ve cholecalciferol (VITAMIN D3) 2,000 Unit tablet Take 2,000 Units by mouth daily. 0 Active oxybutynin (DITROPAN-XL) 5 mg 24 hr tablet Take 1 tablet (5 mg total) by mouth daily. 90 tablet 3 11/04/2019 Active Additional Information Patient not taking.Reported on 01/13/2023 PARoxetine (PAXIL) 40 mg tablet TAKE 1 TABLET BY MOUTH EVERY DAY 30 tablet 0 02/22/2020 Active budesonide-formote roL (SYMBICORT) 80-4.5 mcg/actuation inhaler Inhale 2 puffs 2 (two) times a day. Rinse mouth with water after use to reduce aftertaste and incidence of candidiasis. Do not swallow. 0 Active levETIRAcetam (KEPPRA) 750 mg tablet Take 750 mg by mouth 2 (two) times a day. 0 Active levothyroxine (SYNTHROID, LEVOTHROID) 150 mcg tablet Take 150 mcg by mouth every morning before breakfast. 0 Active albuterol 90 mcg/actuation inhaler Inhale every 6 (six) hours as needed for wheezing. 0 Active montelukast (SINGULAIR) 10 mg tablet Take 10 mg by mouth at bedtime. 0 Active solifenacin (VESICARE) 10 mg tablet Take 10 mg by mouth daily. 0 Active Active Problems Problem Noted Date Diagnosed Date Keratoconus Bilateral 01/13/2023 Astigmatism Irregular Bilateral 01/13/2023 Posttraumatic Stress Disorder Prolonged 06/30/19 19 Attention Deficit Hyperactive Disorder 7 Overview: Attention Deficit Hyperactive (ADHD) Disorder\.br\per external records Body Mass Index 45.0 To 49.9 Adult 11/08/2016 Overview: Body mass index (BMI) 40.0-44.9, adult Rule activated problem due to BMI 40-44 posted on 11/08 at 12:33 CDT. Rule activated problem due to BMI 45-49 posted on 02/24 at 15:32 CDT. 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 Tissue transglutaminase ab neg. Noninfective Gastroenteritis And Colitis Unspeci fied 04/25/2009 Apnea Sleep Obstructive 04/10/2009 Depression Major Recurrent 02/23/2009 Gastroesophageal Reflux Disease NOS 02/23/2009 Resolved Problems Problem Noted Date Diagnosed Date Resolved Date Asthma Mild Persistent 03/07/201709/17 Overview: Asthma Mild Persistent Depression Anxiety 03/18/2016 9 Overview: Depression Anxiety Asthma Chronic 05/07/2015 11/17/2018 Overview: Unspecified asthma, uncomplicated Anxiety 09/02/2012 11/17/2018 Dysthymic disorder 06/30/2009 9 Hypothyroidism 02/23/2009 11/11/2017 Overview: Overview: Diagnosed in 1998. TSH has been ~ 90 since 2002. Non compliant till 2006 but better (taking meds 5/7 days) 04/03: TSH >100, FreeT4 0.4, Reverse T3 9 (11-32 ng/dl) Encounters Date Type Department Care Team Description 05/21/2023 Clinical [facility] [place], [place] [address] [place] [address] Violetta Mitchell, RAlexusN. Treatment Questions from Last 3 Months Immunizations Name Administration Dates Next Due Influenza, Unspecified 05/01/2016,02/06/2015 PPSV23 09/14/2013 Tdap 10/29/2010 influenza high dose (65 years or older) (PF) 06/2014 Family History * Patient is adopted Medical History Relation Name Comments Alcohol abuse Mother Anxiety disorder Mother Depression Mother Drug abuse Mother Relation Name Status Comments Mother Social History Tobacco Use Types Packs/Day Years Used Date Smoking Tobacco: Former Smokeless Tobacco: Never Tobacco Cessation:Counseling Given: Not Answered Alcohol Use Standard Drinks/Week Comments Yes 0 (1 standard drink = 0.6 oz pur e alcohol) yearly PHQ-2 Answer Date Recorded PHQ-2 Score 2 10/27/2018 Nutrition Answer Date Recorded Nutrition: EVOO Fat Source Unknown 07/27 Nutrition: Servings of Fruits/Vegetables per Day Not on file 07/27/2020 Dental Answer Date Recorded Dental: Regular Dentist Unknown 07/28/19 21 Sex and Gender Information Value Date Recorded Sex Assigned at Female 06/02/2018 2:11 PM COMMUNITY HEALTH ADVOCATE Gender Identity Female 06/02/2018 2:11 PM COMMUNITY HEALTH ADVOCATE Sexual Orientation Choose not to disclose 2018 2:11 PM COMMUNITY HEALTH ADVOCATE Last Filed Vital Signs Vital Sign Reading Time Taken Comments Blood Pressure 124/79 11/17/2018 8:50 AM CDT Pulse 85 11/17/2018 8:50 AM CDT Temperature 36 ??C (96.8 ??F) 10/27/2018 3:23 PM CDT Respiratory Rate 20 11/17/2018 8:50 AM CDT Oxygen Saturation 93% 11/17/2018 8:50 AM CDT Inhaled Oxygen Concentration - - Weight 104 kg (229 lb 15 oz) 10/27/2018 3:23 PM CDT Height 144.8 cm (4' 9.01) 11/17/2018 8:50 AM CD T Body Mass Index 49.76 10/27/2018 3:23 PM CDT Plan of Treatment Health Maintenance Due Date Last Done Comments CT Colonography 1977 Cologuard 1977 Colonoscopy 1977 Colorectal Cancer Screening 1977 Depression Monitoring (PHQ-9) 1977 FIT 1977 Hepatitis B Vaccines (1 of 3 - 3-dose series) 1977 Hepatitis C Screening 1977 Mammogram 1977 Office Visit for Blood Pressure Check / Re-check 1977 Asthma Control Test Questionnaire 01/14/2017 12/03/2016, 03/26/2016 Cervical Cancer Screening 02/23/20182014 (Performed elsewhere), 04/16/2014 Asthma Action Plan 01/14/2019 01/14/2018, 0 12/03/2016, 03/18/2016 DTaP,Tdap,and Td Vaccines (2 - Td or Tdap) 10/29/2020 10/29/2010 Influenza Vaccine (#1) 2023 2, 03/09/2018, 05/01/2016, Additional history exists Creatinine Level (Kidney Function Test) 03/19/2024 03/19/2023, 05/01/2022, 03/11/2018, Additional history exists Lipid (Cholesterol) Screening 03/19/2024 03/19/2023, 08/29/2021, 06/10/2016 Potassium Level 03/19/2024 03/19/2023, 12/0 11/2021, 03/11/2018, Additional history exists Sodium Level 03/19/2024 03/19/2023, 12/0 11/2021, 03/11/2018, Additional history exists Thyroid Stimulating Hormone (TSH) test for thyroid function 03/19/2024 03/19/2023, 01/14/2023, 05/01/2022, Additional history exists Fasting Glucose for Diabetes Screening 03/19/2026 03/19/2023, 05/01/2022, 03/11/2018, Additional history exists Pneumococcal vaccine (0-64 years) Completed 01/14/2023, 09/14/2013 COVID-19 Vaccine Completed 03/19/2023, 11/2021, 08/29/2021, Additional history exists HPV Vaccines Aged Out No longer eligi ble based on patient's age to complete this topic Medical Devices Implanted Type Area Printing Engineer Device Identifier Shelf Expiration Date Model / Serial / Lot Ear Implant- [id number] Implanted:11/24 (Quantity not on file) Ear Implant Ear Olympus Bernice Vega TORP Plasti-pore [id number] / / [id number] Description:[facility], [place], [place]. Ear implant-Vega TOPR Plasti-pore MRI Safe Care Teams Staffing Executive Relationship Specialty Start Date End Date Elsewhere, Pcp PCP - General Internal Medicine 12/04/18
--- OUTSIDE RECORDS SUMMARY | 2023-06-08 17:52 | XMS_ITS | Encounter Summary ---
Author Name Unknown Organization [facility] Address [address] [place] [address] Care Team Providers Care Supervisor Final Name Role Phone Elsewhere, Pcp Primary Care Provider Unavailabl e Encounter Details Date Type Department Care Team (Late st Contact Info) Description 01/13/2023 Ancillary Procedure Department of Ophthalmology Social History Tobacco Use Types Packs/Day Years Used Date Smoking Tobacco: Former Smokeless Tobacco: Never Alcohol Use Standard Drinks/Week Comments Yes 0 (1 standard drink = 0.6 oz pur e alcohol) yearly PHQ-2 Answer Date Recorded PHQ-2 Score 2 10/27/2018 Nutrition Answer Date Recorded Nutrition: EVOO Fat Source Unknown 07/27 Nutrition: Servings of Fruits/Vegetables per Day Not on file 07/27/2020 Dental Answer Date Recorded Dental: Regular Dentist Unknown 07/28/19 Sex and Gender Information Value Date Recorded Sex Assigned at Female 06/02/2018 2:11 PM GUM COOK Gender Identity Female 06/02/2018 2:11 PM GUM COOK Sexual Orientation Choose not to disclose 2018 2:11 PM GUM COOK documented as of this encounter Plan of Treatment Not on file documented as of this encounter Procedures Procedure Name Priority Date/Time Associated Diagnosis Comments OPHTHALMOLOGY IMAGE EXAM Routine 01/13/2023 12:00 AM CDT documented in this encounter Results * Eyes Pentacam-Ophthalmology Image Exam (01/13/2023 12:00 AM CDT) Narrative IIMS - 01/13/2023 1:11 PM CDT This order has been created and auto-finalized to support the import of images acquired without order. The clinical documentation to support these images can be found on the encounter that produced images. Provider Not In System IMG NON RAD IMAGI NG PROCEDURES [facility] NA documented in this encounter Visit Diagnoses Not on filedocumented in this encounter Additional Health Concerns Assessment Noted Time PHQ-9 Depression Total Score: 14 10/27/ 019 3:26 PM CDT documented as of this encounter Care Teams Supervisor Final Relationship Specialty Start Date End Date Elsewhere, Pcp PCP - General Internal Medicine 12/04/18 documented as of this encounter
--- OUTSIDE RECORDS SUMMARY | 2023-06-08 17:52 | XMS_ITS | Encounter Summary ---
Author Name Unknown Organization [facility] Address [address] [place] [address] Care Team Providers Care Kier Drier Name Role Phone Elsewhere, Pcp Primary Care Provider Unavailabl e Encounter Details Date Type Department Care Team (Latest Contact Info) Description 01/13/2023 12:45 PM CDT Ancillary Procedure Department of Ophthalmology in [place], [place] [address] [place] [address] Emerson Delvalle M.D. [address] [place] [address] Age Related Nuclear Cataract Bilateral Social History Tobacco Use Types Packs/Day Years [...] Sex Assigned at Female 06/02/2018 2:11 PM KIER DRIER Gender Identity Female 06/02/2018 2:11 PM KIER DRIER Sexual Orientation Choose not to disclose 2018 2:11 PM KIER DRIER documented as of this encounter Plan of Treatment Not on file documented as of this encounter Procedures Procedure Name Priority Date/Time Associated Diagnosis Comments SCHEIMPFLUG TOMOGRAPHY (PENTACAM) - OU - BOTH EYES Routine 01/13/2023 1:07 PM CDT Age Related Nuclear Cataract Bilateral documented in this encounter Results * Scheimpflug Tomography (Pentacam) - OU - Both Eyes (01/13/2023 1:07 PM CDT) Narrative OPHTHALMOLOGY IMAGING EXAM - 01/13/2023 4:00 PM CDT Right eye difficult after several attempts Irregular astigmatism with posterior elevation both eyes, consistent with Emerson KENDALL OTHER OPHTHALMOLOGY IMAGING EXAM documented in this encounter Visit Diagnoses Diagnosis Age Related Nuclear Cataract Bilateral documented in this encounter Additional Health Concerns Assessment Noted Time PHQ-9 Depression Total Score: 14 10/27/2 019 3:26 PM CDT documented as of this encounter Care Teams Kier Drier Relationship Specialty Start Date End Date Elsewhere, Pcp PCP - General Internal Medicine 12/04/18 documented as of this encounter
--- OUTSIDE RECORDS SUMMARY | 2023-06-08 17:52 | XMS_ITS ---
Author Name Unknown Organization [facility] Address [address] [place] [address] Care Team Providers Care Glue Specialty Supervisor Name Role Phone Unavailable Unavailable Unavailable Surgery Details Not on file Complications Check Surgery Details section. Procedure Estimated Blood Loss Check Surgery Details section. Procedure Findings Check Surgery Details section. Procedure Specimens Taken Check Surgery Details section.
--- OUTSIDE RECORDS SUMMARY | 2023-06-08 17:52 | XMS_ITS | Encounter Summary ---
Author Name Unknown Organization [facility] Address [address] [place] [address] Care Team Providers Care Carpenter Helper Maintenance Name Role Phone Elsewhere, Pcp Primary Care Provider Unavailabl e Encounter Details Date Type Department Care Team (Latest Contact Info) Description 01/13/2023 1:00 PM CDT Ancillary Procedure Department of Ophthalmology in [place], [place] [address] [place] [address] Emerson Delvalle M.D. [address] [place] [address] Age Related Nuclear Cataract Bilateral Social History [...] Sex Assigned at Female 06/02/2018 2:11 PM VENEER PATCHER Gender Identity Female 06/02/2018 2:11 PM VENEER PATCHER Sexual Orientation Choose not to disclose 2018 2:11 PM VENEER PATCHER documented as of this encounter Plan of Treatment Not on file documented as of this encounter Procedures Procedure Name Priority Date/Time Associated Diagnosis Comments OCULAR COHERENCE BIOMETRY (OCB) - OU - BOTH EYES Routine 01/13/2023 2:50 PM CDT Age Related Nuclear Cataract Bilateral documented in this encounter Results * Ocular Coherence Biometry (OCB) - OU - Both Eyes (01/13/2023 2:50 PM CDT) Narrative OPHTHALMOLOGY IMAGING EXAM - 01/13/2023 4:00 PM CDT MODALITY Right Eye The modality was Lenstar. Left Eye The modality was Lenstar. Notes Axial length difference ok based on recent refraction and fixation. Test not required/indicated. Emerson Delvalle M.D. OPHTH PHOTOGRAPHY OPHTHALMOLOGY IMAGING EXAM documented in this encounter Visit Diagnoses Diagnosis Age Related Nuclear Cataract Bilateral documented in this encounter Additional Health Concerns Assessment Noted Time PHQ-9 Depression Total Score: 14 06/2 019 3:26 PM CDT documented as of this encounter Care Teams Carpenter Helper Maintenance Relationship Specialty Start Date End Date Elsewhere, Pcp PCP - General Internal Medicine 12/04/18 documented as of this encounter
--- OUTSIDE RECORDS SUMMARY | 2023-06-08 17:52 | XMS_ITS | Encounter Summary ---
Author Name Unknown Organization [facility] Address [address] [place] [address] Care Team Providers Care Content Management Specialist Name Role Phone Elsewhere, Pcp Primary Care Provider Unavailabl e Reason for Visit * Reason Comments Cataract * Appointment Request (Routine) - Closed Specialty Diagnoses / Procedures Referred By Contsanju t Referred To Contact Ophthalmology Diagnoses Cataract Senile Cortical Roxanne De León M.D. [address] [place] [address] Referral ID Status Reason Start Date Expiration Date Visits Re quested Visits Authorized [id number] Closed 06/07/2022 06/07/2023 1 1 Encounter Details Date Type Department Care Team (Latest Contact Info) Description 01/13/2023 2:00 PM CDT Comprehensive Visit Department of Ophthalmology in [place], [place] [address] [place] [address] Emerson Delvalle M.D. [address] [place] [address] Keratoconus Bilateral (Primary Dx); Astigmatism Irregular Bilateral; Exotropia Monocular Right Social History Tobacco Use Types Packs/Day Years [...] Sex Assigned at Female 06/02/2018 2:11 PM OUTREACH AND EDUCATION SOCIAL WORKER Gender Identity Female 06/02/2018 2:11 PM OUTREACH AND EDUCATION SOCIAL WORKER Sexual Orientation Choose not to disclose 2018 2:11 PM OUTREACH AND EDUCATION SOCIAL WORKER documented as of this encounter Progress Notes * Emerson Delvalle M.D. - 01/13/2023 2:00 PM CDT This patient was referred by Roxanne De León M.D. for evaluation of astigmatism and cataract #1 Keratoconus, right > left eye She has asymmetric astigmatism and tomography today was consistent with keratoconus in both eyes. She was not aware of this diagnosis previously and has never worn contact lenses. It is unlikely for her to be progressing at this age and therefore crosslinking is unlikely to be indicated unless we sure definitive progression. At this stage I think it would be appropriate for a rigid contact lens fitting and over refraction to see if this improves her visual acuity, and if so she may consider to wear rigid lenses. She is hoping she can do this locally. #2 Irregular astigmatism, right > left eye Secondary to keratoconus. Recommend contact lenses above. #3 Cataract, both eyes Minimal cortical opacities in each eye. I do not think these are visually significant. #4 Exotropia She had strabismus surgery in the past but remains exotropic. She does describe diplopia but this appears to be more monocular ghosting from astigmatism rather than binocular diplopia. Her exotropia could certainly be addressed if she attains good vision with contact lens wear to assist fusion. documented in this encounter Plan of Treatment Not on file documented as of this encounter Visit Diagnoses Diagnosis Keratoconus Bilateral- Primary Astigmatism Irregular Bilateral Exotropia Monocular Right documented in this encounter Additional Health Concerns Assessment Noted Time PHQ-9 Depression Total Score: 14 10/27/ 019 3:26 PM CDT documented as of this encounter Care Teams Content Management Specialist Relationship Specialty Start Date End Date Elsewhere, Pcp PCP - General Internal Medicine 12/04/18 documented as of this encounter
--- OUTSIDE RECORDS SUMMARY | 2023-06-08 17:52 | XMS_ITS | Encounter Summary ---
Author Name Unknown Organization [facility] Address [address] [place] [address] Care Team Providers Care Wedding Decorator Name Role Phone Elsewhere, Pcp Primary Care Provider Unavailabl e Encounter Details Date Type Department Care Team (Late st Contact Info) Description 01/13/2023 Episode Changes Department of Ophthalmology in [place], [place] [address] [place] [address] Jaquelin Gracia Social History Tobacco Use Types Packs/Day Years [...] Sex Assigned at Female 06/02/2018 2:11 PM PERSONNEL ADVISER Gender Identity Female 06/02/2018 2:11 PM PERSONNEL ADVISER Sexual Orientation Choose not to disclose 2018 2:11 PM PERSONNEL ADVISER documented as of this encounter Plan of Treatment Not on file documented as of this encounter Visit Diagnoses Not on filedocumented in this encounter Additional Health Concerns Assessment Noted Time PHQ-9 Depression Total Score: 14 019 3:26 PM CDT documented as of this encounter Care Teams Wedding Decorator Relationship Specialty Start Date End Date Elsewhere, Pcp PCP - General Internal Medicine 12/04/18 documented as of this encounter
--- OUTSIDE RECORDS SUMMARY | 2023-06-08 17:52 | XMS_ITS | Encounter Summary ---
Author Name Unknown Organization [facility] Address [address] [place] [address] Care Team Providers Care Safety Counselor Name Role Phone Elsewhere, Pcp Primary Care Provider Unavailabl e Reason for Visit * Reason Onset Date Comments Treatment Questions 05/21/2023 Encounter Details Date Type Department Care Team (Latest Contact Info) Description 05/21/2023 Clinical Communication [facility] in [place], [place] [address] [place] [address] Violetta Mitchell R.N. [address] [place] [phone] Treatment Questions Social History Tobacco Use Types Packs/Day Years [...] Sex Assigned at Female 06/02/2018 2:11 PM FRUIT HARVESTER Gender Identity Female 06/02/2018 2:11 PM FRUIT HARVESTER Sexual Orientation Choose not to disclose 2018 2:11 PM FRUIT HARVESTER documented as of this encounter Plan of Treatment Not on file documented as of this encounter Visit Diagnoses Not on filedocumented in this encounter Additional Health Concerns Assessment Noted Time PHQ-9 Depression Total Score: 14 10/27/ 019 3:26 PM CDT documented as of this encounter Care Teams Safety Counselor Relationship Specialty Start Date End Date Elsewhere, Pcp PCP - General Internal Medicine 12/04/18 documented as of this encounter
--- OUTSIDE RECORDS SUMMARY | 2023-06-08 17:52 | XMS_ITS | Referral Summary ---
Author Name Unknown Organization [facility] Address [address] [place] [address] Care Team Providers Care 3Rd Pressman Name Role Phone Elsewhere, Pcp Primary Care Provider Unavailabl e Source Comments Patient records contain information from all sites at [facility]. For routine questions regarding patient records, call [phone] during business hours, M-F 8:00 AM - 5:00 PM Central Time. Record requests for emergency care only can be directed to [phone] at any time.[facility] Encounters Date Type Department Care Team Description 05/21/2023 Clinical Communication Julio C ortega [facility] in [place], [place] [address] [place] [address] Violetta Mitchell R.N. Treatment Questions from Last 3 Months Allergies Active Allergy Reactions Criticality Noted Date [...] FreeT4 0.4, Reverse T3 9 (11-32 ng/dl) Immunizations Name Administration Dates Next Due Influenza, Unspecified 05/01/2016,02/06/2015 PPSV23 09/14/2013 Tdap 10/29/2010 influenza high dose (65 years or older) (PF) 06/2014 Social History Tobacco Use Types Packs/Day Years [...] Sex Assigned at Female 06/02/2018 2:11 PM DIE CUTTER APPRENTICE Gender Identity Female 06/02/2018 2:11 PM DIE CUTTER APPRENTICE Sexual Orientation Choose not to disclose 2018 2:11 PM DIE CUTTER APPRENTICE Last Filed Vital Signs Vital Sign Reading [...] 10/27/2018 3:23 PM CDT Plan of Treatment Not on file Medical Devices Implanted Type Area Beauty Operator Apprentice Device Identifier Shelf Expiration Date Model / Serial / Lot Ear Implant- [id number] Implanted:11/24 (Quantity not on file) Ear Implant Ear Olympus Bernice Vega TORP Plasti-pore [id number] / / [id number] Description:[facility] [place], [place]. Ear implant-Vega TOPR Plasti-pore MRI Safe Care Teams 3Rd Pressman Relationship Specialty Start Date End Date Elsewhere, Pcp PCP - General Internal Medicine 12/04/18
--- OUTSIDE RECORDS SUMMARY | 2023-06-08 17:53 | XMS_ITS ---
Author Name Unknown Organization [facility] Address [address] [place] [address] Care Team Providers Care Component Engineer Name Role Phone Elsewhere, Pcp Primary Care Provider Unavailabl e Transplant Episode Lung Candidate [facility] ([place], [place]) - [facility] Referred on 03/27/2023 Marked as Active on 03/27/2023 Lung CoordinatorCoordinator Transplant, R.N. Phone: N/A Fax: N/A Email: N/A Care Team Name Role Phone Fax Email Coordinator Transplant, R.N. Lung Coordinator N/A N /A N/A Events Pre-Transplant Referred: 03/27/2023
--- OUTSIDE RECORDS SUMMARY | 2023-06-08 17:53 | XMS_ITS | Clinical Summary ---
Author Name Unknown Organization [facility] Address [place], [place] [address] Care Team Providers Care Grinder Operator Automatic Name Role Phone Paolo Limon MD Unavailable Talon Durham MD Unavailable [phone] Laura Gardner PsyD, Unavailable [phone] Geronimo Lamb MD Primary Care Provider Allergies Active Allergy Reactions Criticality Noted Date Comments Azithromycin Diarrhea,Nausea And Vomiting 02/23/2009 Bloody stools Basil Rash 09/17/2017 Dextroamphetamine-Amph etamine Rash 10/29/2010 Burning skin sensation Does fine with generic Adderall was issue Latex Rash Low 10/29/2010 Oxycodone Behavioral Disturbances High 11/30/2021 Oxycodone-Acetaminophe n Confusion,Other - Describe In Comment Field 01/04/2011 Lethargic-- Memory loss--aggression Scopolamine Tremors 11/27/2012 Medications Medication Sig Dispensed Refills Start Date End Date Status [facility], medication vacation planner with alarm 1 unit 0 04/22/2014 Active diphenhydrAMINE (BENADRYL) 25 mg capsule Take 1 capsule by mouth each time if needed. 0 12/15/2014 Active albuterol (PROVENTIL) 0.083 % neb solutionIndication s:Moderate persistent asthma, uncomplicated Inhale 3 mL via a nebulizer every 6 hours if needed for Shortness Of Breath or Wheezing. 1 box 1 12/28/2014 Active fexofenadine (ROJAS) 180 mg tablet Take 1 tablet by mouth once daily with a meal. 0 10/05/2015 Active Symbicort 160-4.5 mcg/actuation (160-4.5 mcg each actuation) inhaler 0 03/01/2021 Active cholecalciferol, Vitamin D3, 2,000 unit tablet Take 2,000 units by mouth. 0 Active omeprazole (PriLOSEC) 20 mg Delayed-Release capsuleIndications :Chronic GERD Take 2 Capsules (40 mg) by mouth once daily before a meal. 180 Capsule 3 08/21/2022 Active montelukast (SINGULAIR) 10 mg tabletIndications: Allergy, sequela Take 1 Tablet (10 mg) by mouth at bedtime. 90 Tablet 3 11/07/2022 Active medication order composerIndication s:Nocturnal hypoxemia Oxygen is no longer needed at night- the order for oxygen is canceled 1 unit 0 12/10/2022 Active LORazepam (ATIVAN) 1 mg tablet 0 12/08/2022 Active terbinafine 1% cream (LAMISIL) 1 % creamIndications:I ntertrigo Apply topically to affected area(s) two times daily. 80 g 3 01/14/2023 Active Diaper,Brief, Adult,DisposableIn dications:Urge urinary incontinence For home use. Size large. 60 Each 11 01/15/2023 Active PARoxetine (PAXIL) 40 mg tabletIndications: Anxiety and depression TAKE 1 TABLET BY MOUTH EVERY DAY IN THE MORNING 90 Tablet 1 02/01/2023 Active CPAPIndications:OS A (obstructive sleep apnea) CPAP machine for home use at pressure 14cmw, full face mask x1/3month with a full face cushion x1/mo 1 Each 11 02/10/2023 Active tiotropium (SPIRIVA HANDIHALER) 18 mcg inhalation capsuleIndications :Severe persistent asthma, unspecified whether complicated Inhale 1 Capsule (18 mcg) by mouth once daily. Using a SPRIVA HANDIHALER fischer the capsule, then by mouth breathe in the powder. Inhale twice from the same capsule for full dose. 90 Capsule 3 02/21/2023 Active furosemide (LASIX) 40 mg tabletIndications: SOB (shortness of breath) Take 1 Tablet (40 mg) by mouth every morning. 90 Tablet 3 03/06/2023 Active potassium chloride (Klor-Con 10) 10 mEq extended-release tabletIndications: SOB (shortness of breath) Take 2 Tablets (20 mEq) by mouth once daily with a meal. 180 Tablet 3 03/06/2023 Active levothyroxine (SYNTHROID) 112 mcg tabletIndications: Hypothyroidism (acquired) Take 1 Tablet (112 mcg) by mouth before breakfast. 60 Tablet 5 03/20/2023 Active solifenacin (VESICARE) 10 mg tabletIndications: Urge urinary incontinence TAKE 1 TABLET BY MOUTH EVERY DAY 90 Tablet 1 04/02/2023 Active mirabegron EXTENDED-release (MYRBETRIQ) 50 mg tabletIndications: Urge urinary incontinence Take 1 Tablet (50 mg) by mouth once daily. 90 Tablet 0 04/02/2023 Active albuterol HFA (PRO-AIR; VENTOLIN; PROVENTIL) 90 mcg/actuation inhalerIndications :Moderate persistent asthma, uncomplicated INHALE 1 TO 2 PUFFS BY MOUTH EVERY 4 HOURS NEEDED FOR SHORTNESS OF BREATH 1ST CHOICE 17 Each 3 04/25/2023 Active levETIRAcetam (KEPPRA) 750 mg tabletIndications: Seizure (HC) Take 1 Tablet (750 mg) by mouth two times daily. 60 Tablet 3 05/27/2023 Active levETIRAcetam (KEPPRA) 750 mg tabletIndications: Seizure (HC) TAKE 1 TABLET (750 MG) BY MOUTH TWO TIMES DAILY. 60 Tablet 0 04/25/2023 4 Discontinue d(Reorder (E-cancel not sent)) Active Problems Problem Noted Date Diagnosed Date Class 3 obesity with alveola r hypoventilation, serious comorbidity, and body mass index (BMI) of 50.0 to 59.9 in adult 04/10/2023 Seizure 10/09/2022 Severe persistent asthma, unspecified whether co mplicated 08/14/2022 Sensorineural hearing loss (SNHL) of both ears 1 06/23/2020 Bilateral lower extremity edema 04/23/2021 Hyperlipidemia 06/03/2014 Secondary amenorrhea 01/03/2014 Hydrocephalus, congenital 10/04/2010 ADHD, predominantly inattentive type 06/30/2009 Other specific developmental learning difficulti es 06/30/2009 RODRICK 03/29/2009 AHI-37 in REM, 5 overall 9 Hypothyroidism 02/23/2009 Overview: Diagnosed in 1998. TSH has been ~ 90 since 2002. Non compliant till 2006 but better (taking meds 5/7 days) 04/03: TSH >100, FreeT4 0.4, Reverse T3 9 (11-32 ng/dl) GERD (Gastroesophageal Reflux Disease) 9 Anxiety and depression Dizziness Overview: Eval by [facility] neurology 2018. Thought to be functional. Referred to psychiatry. 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 Tissue transglutaminase ab neg. Chronic diarrhea 04/25/2009 04/23/2021 Mild Intermittent Asthma 02/23/200911/2011 Encounters Date Type Department Care Team Description 05/27/2023 3:00 PM SENIOR AIR DIRECTOR Office Visit [facility] [place] [facility] [address] [place] [address] Dread Villavicencio MD Follow Up (Seizure ); Dizziness (2 weeks) 05/27/2023 Travel 05/15/2023 1:40 PM SENIOR AIR DIRECTOR Office Visit [facility] [address] [place] [address] Geronimo Lamb MD Shortness Of Breath; Throat Problem 05/15/2023 Travel 05/15/2023 Telephone [facility] [address] [facility] [place] [address] Geronimo Lamb MD Lab 05/10/2023 Orders Only [facility] Scanner 1 scan: (1-Ord) [facility]STOPHER FONSECA CERVICAL SPINE 2-3V, 05/10/2023 04/30/2023 10:00 AM SENIOR AIR DIRECTOR Telemedicine [facility] [address] [place] [address] Telehealth; Medical Nutrition Therapy 04/24/2023 Refill [facility] [address] [place] [address] Geronimo Lamb MD Refill Request (Bupropion, Levetiracetam, Albuterol Hfa) 04/18/2023 Patient Outreach [facility] Care Management - Advanced Care Team [address] [place] [address] [place], [facility] Population Health (Social work community resource navigation. /) 04/14/2023 Telephone [facility] [address] [place] [address] Geronimo Lmab MD Questions (pulmonary rehab questions ) 04/10/2023 10:35 AM SENIOR AIR DIRECTOR Office Visit [facility] [address] [place] [address] Geronimo Lamb MD Follow Up 04/10/2023 Travel 04/09/2023 8:30 AM SENIOR AIR DIRECTOR Telemedicine [facility] [address] [place] [address] [place] [address] Telehealth; Medical Nutrition Therapy 04/02/2023 Refill [facility] [address] [place] [address] Geronimo Lamb MD Refill Request (Myrbetriq) 04/02/2023 Refill [facility] [address] [place] [address] Geronimo Lamb MD Refill Request (Solifenacin) 03/20/2023 Telephone [facility] [address] [place] [address] Geronimo Lamb MD Results 03/20/2023 Orders Only [facility] [address] [place] [address] Geronimo Lamb MD <No scans attached> 03/19/2023 11:20 AM CDT Office Visit [facility] [address] [place] [address] Geronimo Lamb MD ER Follow up ([facility], 03/06/2023) 03/19/2023 Travel 03/17/2023 Orders Only [facility] Scanner 1 scan: (1-Ord) [facility], 03/17/2023 03/09/2023 Refill [facility] [address] [place] [address] Geronimo Lamb MD Refill Request (Albuterol Hfa) from Last 3 Months Immunizations Name Administration Dates Next Due COVID-19 Vaccine Spikevax (M oderna 50mcg/0.5mL) 12YO+ [id number] Formula PF 03/19/2023 COVID-19 vaccine ([employer]Bio NTech 30mcg/0.3mL) 12YO+ BIVALENT PF, MDV 05/01/2022 COVID-19 vaccine (Pfizer-Bio NTech 30mcg/0.3mL) 12YO+ VAL-SUCROSE PF, MDV 08/29/2021 Influenza Virus, Unspecified 05/27/2014 Influenza, IIV3 (Age >=3 years) 05/24/20 14,06/09/2013,06/05/2012,2009 Influenza, IIV4 03/19/2023, 2,03/09/2018,2015,02/06/2015 Pneumococcal Conj 20-valent (Prevnar 20) 01/14/2023 Pneumococcal Poly,23-Valent (Pneumovax) 09/14/2013 Tdap 10/29/2010 Family History * Patient is adopted Medical History Relation Name Comments Alcoholism Mother actively drinki ng during pt's Asthma Mother Depression Mother Diabetes Mother Thyroid Disease Other Hypothyroid. ..multiple family members Relation Name Status Comments Mother Other Social History Tobacco Use Types Packs/Day Years Used Date Smoking Tobacco: Former Cigarettes 0.1 2.9 2 006 - 04/25/2008 Smokeless Tobacco: Never Tobacco Cessation:Counseling Given: Yes Alcohol Use Standard Drinks/Week Comments No 0 (1 standard drink = 0.6 oz pur e alcohol) PHQ-2 Answer Date Recorded PHQ-2 TOTAL SCORE 1 10/09/2022 Social Connections Answer Date Recorded Frequency of Communication with Friends and Fami ly 4 04/10/2023 Financial Resource Strain Answer Date R ecorded Difficulty of Paying Living Expenses 3 04/10/2023 Difficulty of Paying Living Expenses Not on file 04/10/2023 Food Insecurity Answer Date Recorded Worried About Running Out of Food in the Last Ye ar 1 04/10/2023 Transportation Needs Answer Date Record ed Lack of Transportation (Medical) 1 04/10/2023 Housing Stability Answer Date Recorded Unable to Pay for Housing in the Last Year 1 04/10/2023 Sex and Gender Information Value Date Recorded Sex Assigned at Not on file Gender Identity Not on file Sexual Orientation Not on file Obstetrics History Last Filed Vital Signs Vital Sign Reading Time Taken Comments Blood Pressure 134/83 05/27/2023 2:58 PM SENIOR AIR DIRECTOR Pulse 93 05/27/2023 2:58 PM SENIOR AIR DIRECTOR Temperature 36.7 ??C (98.1 ??F) 05/15/2023 1:42 PM CS T Respiratory Rate 20 09/13/2020 10:28 AM CDT Oxygen Saturation 92% 05/27/2023 2:58 PM SENIOR AIR DIRECTOR Inhaled Oxygen Concentration - - Weight 108.4 kg (239 lb) 05/15/2023 1:42 PM SENIOR AIR DIRECTOR Height 142.2 cm (4' 8) 02/10/2023 3:17 PM CDT Body Mass Index 53.58 02/10/2023 3:17 PM CDT Plan of Treatment Upcoming Encounters Date Type Department Care Team (Late st Contact Info) Description 06/10/2023 2:05 PM SENIOR AIR DIRECTOR Office Visit [facility] [address] [place] [address] Geronimo Lamb MD [address] [place] [address] 06/11/2023 8:30 AM SENIOR AIR DIRECTOR Telemedicine [facility] [address] [facility] [address] [place] [address] [address], [address] [place] [address] 07/24/2023 3:00 PM SENIOR AIR DIRECTOR Office Visit [facility] [address] [place] [address] Paolo Limon MD [address] [place] [address] Health Maintenance Due Date Last Done Comments Pap test for age 21-65 04/16/2014 04/16/2011 (Declin ed) Tetanus booster 10/29/2020 10/29/2010 Colonoscopy through age 75 2022 Mammogram for age 45-75 2022 02/24/2019, 02/16 Depression screening for age 12+ 10/10/2023 10/09/2022, 08/14/2022, 04/23/2021, Additional history exists BMI (ht and wt on same day) for age 18+ 02/11/2024 02/10/2023, 12/10/2022, 07/31/2022, Additional history exists Lipids for age 45-75 03/19/2028 03/19/2023, 08/29/2021, 06/03/2014, Additional history exists Tdap Completed 10/29/2010 Hepatitis C screening for ag e 18-79 Completed 12/05/2021 HIV for age 15-65 Completed 05/01/2022 Pneumococcal series for age 6-64 Completed 01/15/20 23, 09/14/2013 COVID-19 vaccine series Completed 03/19/20 23, 05/01/2022, 08/29/2021, Additional history exists Influenza for age 9-49 Completed , 05/01/2022, 03/09/2018, Additional history exists Procedures Procedure Name Priority Date/Time Associated Diagnosis Comments COVID-19 MOLECULAR Routine 05/15/2023 2: 00 PM SENIOR AIR DIRECTOR Flu-like symptoms INFLUENZA A/B PCR Routine 05/15/2023 2:0 0 PM SENIOR AIR DIRECTOR Flu-like symptoms SCAN-RADIOLOGY REPORT 05/10/2023 12:00 AM SENIOR AIR DIRECTOR T4,FREE Routine 03/19/2023 12:35 PM CDT Hypothyroidism (acquired) LIPID PANEL W REFLEX MEASURED LDL Routine 03/19/2023 12:35 PM CDT Hyperlipidemia, unspecified hyperlipidemia type HEMOGLOBIN A1C SCREENING Routine 03/19/2023 12:35 PM CDT Prediabetes MAGNESIUM Routine 03/19/2023 12:35 PM CDT Heart failure with preserved ejection fraction, unspecified HF chronicity (HC) BASIC METABOLIC PANEL Routine 03/19/2023 12:35 PM CDT SOB (shortness of breath) TSH WITH REFLEX Routine 03/19/2023 12:35 PM CDT Hypothyroidism (acquired) SCAN-PULMONARY FUNCTION TEST 03/17/2023 12:00 AM CDT from Last 3 Months Results * COVID-19 MOLECULAR (05/15/2023 2:00 PM SENIOR AIR DIRECTOR) COVID 19 [facility] MOLECULAR Negative Negative 05/16/2023 1:22 AM SENIOR AIR DIRECTOR [facility]- NTRAL LABORATORY TESTING LABORATORY [facility] 05/16/2023 1:22 AM SENIOR AIR DIRECTOR [facility] Comment:Specimen submitted t o [facility] for testing. Other SPECIMEN FROM NASAL FOSSAE / Unknown Non-Blood / Unknown 05/15/2023 2:00 PM SENIOR AIR DIRECTOR 05/15/2023 2:14 PM SENIOR AIR DIRECTOR [facility] LABORATORY-CENTRAL LABORATORY - 05/16/2023 1:22 AM SENIOR AIR DIRECTOR All PCR tests are subject to false negative result due to variability in viral load and collection technique. A negative result does not rule out a SARS-CoV-2 infection. Clinical correlation required. This test has been authorized by FDA under an Emergency Use Authorization (EUA). This test is only authorized for the duration of time the declaration that circumstances exist justifying the authorization of the emergency use of in vitro diagnostic tests for detection of SARS-CoV-2 virus and/or diagnosis of COVID-19 infection under section 564(b)(1) of the Act, 21 U.S.C. 360bbb-3(b) (1), unless the authorization is terminated or revoked sooner. Geronimo Lamb MD MICROBIOLOGY Performing Organization Address [facility]/ZIP Co de Phone Number [facility] [address] * INFLUENZA A/B PCR (05/15/2023 2:00 PM SENIOR AIR DIRECTOR) INFLUENZA A PCR Negative 05/16/2023 1:22 AM SENIOR AIR DIRECTOR [facility] TRAL LABORATORY INFLUENZA B PCR Negative 05/16/2023 1:22 AM SENIOR AIR DIRECTOR [facility] TRAL LABORATORY Other SPECIMEN FROM NASAL FOSSAE / Unknown Non-Blood / Unknown 05/15/2023 2:00 PM SENIOR AIR DIRECTOR 05/15/2023 2:14 PM SENIOR AIR DIRECTOR Geronimo Lamb MD MICROBIOLOGY Performing Organization Address [facility] Co de Phone Number [facility] [address] * SCAN-RADIOLOGY REPORT (05/10/2023 12:00 AM SENIOR AIR DIRECTOR) Anatomical Region Laterality Modality Other Scanner OTHER * HEMOGLOBIN A1C SCREENING (03/19/2023 12:35 PM CDT) HEMOGLOBIN A1C SCREENING 5.9 <=6.4 % 03/20/2023 7:52 AM CDT [facility] Blood BLOOD SPECIMEN / Unknown Butterfly / Unknown 03/19/2023 12:35 PM CDT 03/19/2023 12:38 PM CDT Narrative [facility] - 03/20/2023 7:52 AM CDT ? (<5.7%) ?Normal ? (5.7% to 6.4%) ? Indicates prediabetes ? (>=6.5%) ? Confirms diabetes Falsely low levels may be seen with: Recent Transfusion, Recent Significant Blood Loss, Hemolytic Diseases, or Falsely elevated levels may be seen with: Untreated Anemias, Splenectomy Geronimo Lamb MD CHEMISTRY Performing Organization Address [facility] de Phone Number [facility] [address] [address], [place] * (ABNORMAL) TSH WITH REFLEX (03/19/2023 12:35 PM CDT) TSH 0.12(L) 0.27 - 4.20 uIU/mL 03/20/2023 8:55 AM CDT [facility] Blood BLOOD SPECIMEN / Unknown Butterfly / Unknown 03/19/2023 12:35 PM CDT 03/19/2023 12:38 PM CDT Narrative [facility] - 03/20/2023 8:55 AM CDT In Adults, TSH values between 5.00 and 10.00 uIU/ml do not necessarily indicate the presence of Hypothyroidism. Correlation with clinical findings such as presence of goiter and/or Thyroperoxidase (TPO) Antibody may be helpful. For more information please refer to SIVAN 2004; 291: 228-238. Geronimo Lamb MD CHEMISTRY Performing Organization Address [facility] de Phone Number [facility] [address] [address], [place] * (ABNORMAL) LIPID PANEL W REFLEX MEASURED LDL (03/19/2023 12:35 PM CDT) CHOLESTEROL,TOTAL 258(H) 100 - 199 mg/dL 03/20/2023 8:11 AM CDT [facility] Comment: Cholesterol, Total Reference Ranges Desirable <200 mg/dL Borderline 200-239 mg/dL High >=240 mg/dL TRIGLYCERIDES 159(H) <150 mg/dL 03/20/2023 8:11 AM CDT [facility] HDL CHOLESTEROL 55 >40 mg/dL 8:11 AM CDT [facility] TRAL LABORATORY NON-HDL CHOLESTEROL 203(H) <145 mg/dl 03/20/2023 8:11 AM CDT [facility] CHOL/HDL RATIO 4.69(H) <4.50 03/20/2023 8:11 AM CDT [facility] LDL CHOLESTEROL 171(H) <=130 mg/dL 03/20/2023 8:11 AM CDT [facility] VLDL CHOLESTEROL 32(H) <=30 mg/dL 03/20/2023 8:11 AM CDT [facility] TRAL LABOR[facility] PROVIDER ORDERED STATUS RANDOM 03/20/2023 8:11 AM CDT [facility] Blood BLOOD SPECIMEN / Unknown Butterfly / Unknown 03/19/2023 12:35 PM CDT 03/19/2023 12:38 PM CDT Geronimo Lamb MD CHEMISTRY [facility] [address] [place] [address], [place] * T4,FREE (03/19/2023 12:35 PM CDT) T4,FREE 1.44 0.93 - 1.70 ng/dL 03/20/2023 8:55 AM CDT [facility] Blood BLOOD SPECIMEN / Unknown Butterfly / Unknown 03/19/2023 12:35 PM CDT 03/19/2023 12:38 PM CDT Geronimo Lamb MD CHEMISTRY [facility] [address] [place] [address], [place] * MAGNESIUM (03/19/2023 12:35 PM CDT) MAGNESIUM 1.7 1.6 - 2.6 mg/dL 03/20/2023 8:11 AM CDT [facility] Blood BLOOD SPECIMEN / Unknown Butterfly / Unknown 03/19/2023 12:35 PM CDT 03/19/2023 12:38 PM CDT Geronimo Lamb MD CHEMISTRY [facility] [address] [place] [address], * (ABNORMAL) BASIC METABOLIC PANEL (03/19/2023 12:35 PM CDT) SODIUM 141 136 - 145 mmol/L 03/20/2023 8:11 AM CDT [facility] POTASSIUM 4.4 3.5 - 5.1 mmol/L 03/20/2023 8:11 AM CDT [facility] CHLORIDE 100 98 - 107 mmol/L 03/20/2023 8:11 AM CDT [facility] CO2,TOTAL 28 22 - 29 mmol/L 03/20/2023 8:11 AM CDT [facility] ANION GAP 13 5 - 18 03/20/2023 8:11 AM CDT [facility] GLUCOSE 93 70 - 99 mg/dL 03/20/2023 8:11 AM CDT [facility] CALCIUM 10.0 8.6 - 10.0 mg/dL 03/20/2023 8:11 AM CDT [facility] BUN 9 6 - 20 mg/dL 03/20/2023 8:11 AM T [facility] CREATININE 0.84 0.50 - 0.90 mg/dL 03/20/2023 8:11 AM T [facility] BUN/CREAT RATIO 11 10 - 20 8:11 AM CDT [facility] eGFR 87(L) >90 mL/min/1.7 3m2 03/20/2023 8:11 AM T [facility] Comment:As of 2021, eG FR is calculated by the CKD-EPI creatinine equation without race adjustment. ??eGFR can be influenced by muscle mass, exercise, and diet. ??The reported eGFR is an estimation only and is only applicable if the renal function is stable. Blood BLOOD SPECIMEN / Unknown Butterfly / Unknown 03/19/2023 12:35 PM CDT 03/19/2023 12:38 PM CDT Geronimo Lamb MD CHEMISTRY [facility] [address] [place] [address], * SCAN-PULMONARY FUNCTION TEST (03/17/2023 12:00 AM CDT) Scanner OTHER from Last 3 Months Care Teams Grinder Operator Automatic Relationship Specialty Start Date End Date Geronimo Lamb MD [address] [place] [address] PCP - General Family Practice 04/23/21 Paolo Limon MD Sleep Medicine 10/28/11 Talon Durham MD Neurology Neurology 11/26/11 Laura Gardner PsyD, LP Psychology 09/14/13
--- OUTSIDE RECORDS SUMMARY | 2023-06-08 17:53 | XMS_ITS | Encounter Summary ---
Author Name Unknown Organization [facility] Address [address] [place] [address] Care Team Providers Care Fireboat Operator Name Role Phone Elsewhere, Pcp Primary Care Provider Unavailabl e Encounter Details Date Type Department Care Team (Latest Contact Info) Description 06/07/2022 Clinical Communication Department of Ophthalmology in [place], [place] [address] [place] [address] Emerson Delvalle M.D. [address] [place] [address] Social History Tobacco Use Types Packs/Day Years [...] Sex Assigned at Female 06/02/2018 2:11 PM JOURNEYMAN PAINTER Gender Identity Female 06/02/2018 2:11 PM JOURNEYMAN PAINTER Sexual Orientation Choose not to disclose 2018 2:11 PM JOURNEYMAN PAINTER documented as of this encounter Miscellaneous Notes * Telephone Encounter - Lexi Nails, C.O.AAlexus - 06/10/2022 7:45 AM CST Ordered. NEYMAN PAINTER * Telephone Encounter - Roderick Rose - 06/07/2022 5:56 PM CST Please order for Dr. Delvalle, Cataract Per DELIVERY NURSE: Panel #47 Panel #36 Thank you, Roderick NEYMAN PAINTER documented in this encounter Plan of Treatment Not on file documented as of this encounter Results * Ocular Coherence Biometry (OCB) - OU - Both Eyes (01/13/2023 2:50 PM CDT) Narrative OPHTHALMOLOGY IMAGING EXAM - 01/13/2023 4:00 PM CDT MODALITY Right Eye The modality was Lenstar. Left Eye The modality was Lenstar. Notes Axial length difference ok based on recent refraction and fixation. Test not required/indicated. Emerson Delvalle M.D. OPHTH PHOTOGRAPHY Performing Organization Address [facility] Co de Phone Number OPHTHALMOLOGY IMAGING EXAM * Scheimpflug Tomography (Pentacam) - OU - Both Eyes (01/13/2023 1:07 PM CDT) Narrative OPHTHALMOLOGY IMAGING EXAM - 01/13/2023 4:00 PM CDT Right eye difficult after several attempts Irregular astigmatism with posterior elevation both eyes, consistent with Emerson Delvalle M.D. OPHTH OTHER Performing Organization Address [facility]/ZIP Co de Phone Number OPHTHALMOLOGY IMAGING EXAM documented in this encounter Visit Diagnoses Diagnosis Age Related Nuclear Cataract Bilateral- Primary Age Related Nuclear Cataract Bilateral Age Related Nuclear Cataract Bilateral documented in this encounter Additional Health Concerns Assessment Noted Time PHQ-9 Depression Total Score: 14 06/04/2 019 3:26 PM CDT documented as of this encounter Care Teams Fireboat Operator Relationship Specialty Start Date End Date Elsewhere, Pcp PCP - General Internal Medicine 12/04/18 documented as of this encounter
--- OUTSIDE RECORDS SUMMARY | 2023-06-08 17:53 | XMS_ITS | Encounter Summary ---
Author Name Unknown Organization [facility] Address [address] [place] [address] Care Team Providers Care Solar Lab Technician Name Role Phone Elsewhere, Pcp Primary Care Provider Unavailabl e Reason for Visit * Reason Onset Date Comments Appointment 10/07/2022 Encounter Details Date Type Department Care Team (Latest Contact Info) Description 10/07/2022 Clinical Communication Department of Ophthalmology in [place], [place] [address] [place] [address] Provider, Unknown Appointment Social History Tobacco Use Types Packs/Day Years [...] Sex Assigned at Female 06/02/2018 2:11 PM REPORT CHECKER Gender Identity Female 06/02/2018 2:11 PM REPORT CHECKER Sexual Orientation Choose not to disclose 2018 2:11 PM REPORT CHECKER documented as of this encounter Plan of Treatment Not on file documented as of this encounter Visit Diagnoses Not on filedocumented in this encounter Additional Health Concerns Assessment Noted Time PHQ-9 Depression Total Score: 14 019 3:26 PM CDT documented as of this encounter Care Teams Solar Lab Technician Relationship Specialty Start Date End Date Elsewhere, Pcp PCP - General Internal Medicine 12/04/18 documented as of this encounter
[2023-06-08 17:56] LABS: Slide Review Reflex No
[2023-06-08 18:03] LABS: Chloride* 100 mmol/L (96-114); Sodium* 139 mmol/L (135-149)
[2023-06-08 18:06] VITALS: BP 122/85; PULSE 89; RESP 24; O2SAT 97
[2023-06-08 18:06] LABS: Anion Gap 3 mEq/L (7-15); Carbon Dioxide* 36 mmol/L (20-32); Creatinine* 0.7 mg/dL (0.5-1.5); Est. Creatinine Clearance* 178.05; Estimated Glomerular Filt Rate 109 ml/min
[2023-06-08 18:07] LABS: Blood Urea Nitrogen* 12 mg/dL (5-24); Calcium* 9.1 mg/dL (8.4-10.6); Glucose* 87 mg/dL (60-115)
[2023-06-08 18:09] LABS: C Reactive Protein* 1.7 mg/dL (0.5-1.0)
--- NOTE | 2023-06-08 18:12 | ED.GENADULT ---
HPI - General Adult General Chief complaint: Shortness of Breath/Dyspnea Stated complaint: shortness of breath Time Seen by Provider: 06/08/23 16:52 Source: patient Mode of arrival: EMS Limitations: no limitations History of Present Illness HPI narrative: 47-year-old female presenting shortness of breath. Patient presents frequently to the ER if shortness of breath. She denies cough, chest pain, fevers or chills. No nausea or vomiting. No changes in her appetite. No sick contacts that she is aware of. She does use oxygen at home at all times, she has not had to increase her oxygen in the last couple of days. She states that she is having hard time sleeping at night, states that she has had a CPAP machine for about 2 years and has never cleaned it. Related Data Home Medications Medication Instructions Recorded Confirmed albuterol sulfate 90 mcg/actuation 2 puff inhalation Q4H PRN 11/30/21 05/10/23 aerosol inhaler mirabegron 50 mg tablet,extended 50 mg PO DAILY 11/30/21 05/10/23 release 24 hr (Myrbetriq) montelukast 10 mg tablet 10 mg PO HS 11/30/21 01/30/23 omeprazole 20 mg capsule,delayed 40 mg PO DAILY 02/26/22 05/10/23 release levetiracetam 750 mg tablet 750 mg PO BID 11/25/22 05/10/23 (Keppra) solifenacin 10 mg tablet 10 mg PO DAILY 11/25/22 05/10/23 cholecalciferol (vitamin D3) 50 50 mcg PO DAILY 01/30/23 05/10/23 mcg (2,000 unit) capsule levothyroxine 125 mcg tablet 125 mcg PO QAM 01/30/23 05/10/23 paroxetine HCl 40 mg tablet 40 mg PO DAILY 01/30/23 05/10/23 terbinafine HCl 1 % topical cream applic topical BID 02/01/23 Previous Rx's Medication Instructions Recorded albuterol sulfate 2.5 mg/3 mL 2.5 mg (3 mL) inhalation Q8H PRN 02/02/23 (0.083 %) solution for nebulization #1 mL budesonide-formoterol HFA 160 2 puff inhalation BID #1 g 02/02/23 mcg-4.5 mcg/actuation aerosol inhaler (Symbicort) furosemide 40 mg tablet 40 mg PO DAILY #30 tabs 02/02/23 ipratropium 0.5 mg-albuterol 3 mg 3 ml inhalation Q6-8H PRN #90 mL 02/02/23 (2.5 mg base)/3 mL nebulization soln potassium chloride 10 mEq 20 meq (2 x 10 mEq) PO DAILY #60 02/02/23 capsule,extended release caps prednisone 20 mg tablet 40 mg (2 x 20 mg) PO DAILYWM #2 02/02/23 tabs tiotropium bromide 2.5 2 puff inhalation DAILY #1 g 02/02/23 mcg/actuation mist for inhalation (Spiriva Respimat) furosemide 40 mg tablet 40 mg PO DAILY #33 tabs 03/06/23 potassium chloride 20 mEq 20 meq PO DAILY #33 tabs 03/06/23 tablet,extended release Allergies Allergy/AdvReac Type Severity Reaction Status Date / Time azithromycin Allergy Intermediate Bloody Verified 05/10/23 20:01 Stools latex Allergy Intermediate Rash Verified 05/10/23 20:01 oxycodone Allergy Intermediate Agitated Verified 05/10/23 20:01 scopolamine Allergy Intermediate Tremors Verified 05/10/23 20:01 basil Allergy Rash Verified 05/10/23 20:01 acetaminophen [From Percocet] AdvReac Confusion Verified 05/10/23 20:01 Review of Systems Status of ROS: Reports: 10 or more systems reviewed and unremarkable except as noted in History and below [facility] Medical History Hypothyroidism ?E03.9 - Hypothyroidism, unspecified (ICD-10) Acute and chronic respiratory failure with hypoxia ?J96.21 - Acute and chronic respiratory failure with hypoxia (ICD-10) 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 - Unspecified convulsions (ICD-10) RODRICK (obstructive sleep apnea) ?G47.33 - Obstructive sleep apnea (adult) (pediatric) (ICD-10) ADHD ?F90.9 - Attention-deficit hyperactivity disorder, unspecified type (ICD-10) Hyperthyroidism ?E05.90 - Thyrotoxicosis, unspecified without thyrotoxic crisis or storm (ICD-10) Hydrocephalus ?G91.9 - Hydrocephalus, unspecified (ICD-10) Hyperlipidemia ?E78.5 - Hyperlipidemia, unspecified (ICD-10) Anxiety and depression ?F41.9 - Anxiety disorder, unspecified (ICD-10) ?F32.A - Depression, unspecified (ICD-10) Asthma ?J45.909 - Unspecified asthma, uncomplicated (ICD-10) Surgical History History of ear surgery ?Z98.890 - Other specified postprocedural states (ICD-10) History of strabismus surgery ?Z98.890 - Other specified postprocedural states (ICD-10) Social History Narrative: on disability since 2009; lives alone with her cat. nonsmoker, no drugs, no significant tobacco history adopted, her two adopted aunts are her family contacts. What is your current living situation?: I presently have a place to live Problems where you live: no known problems Problems where you live details: None In the past 12 months, utilities in danger of being shut off: no In past 12 months, lack of transportation kept you from medical appts, meetings, work, or getting things needed for daily living: no In the past 12 mos, have been you worried that your food would run out before you had money to buy more?: never true In the past 12 mos, the food you bought just didn't last and you didn't have money to buy more?: never true Highest level of school completed/degree received: Associate degree: academic program Smoking Status: Never smoker Do you use any of these nicotine containing products: None Second hand tobacco smoke exposure: No How often do you have a drink containing alcohol: never How often do you have six or more drinks on one occasion: Never AUDIT-C Alcohol total score: 0 Non-prescribed substance use: denies use Caffeine: Yes (Pop ocassionally) How often does anyone, including family, friends and others, physically hurt you: never How often does anyone, including family, friends and others, insult or talk down to you: never How often does anyone, including family, friends and others, threaten you with harm: never How often does anyone, including family, friends and others, scream or curse at you: never service: No Exam Narrative: Exam Narrative: Obese come well-developed patient in no acute distress. Alert and oriented. Answers questions appropriately. Mood and affect are appropriate. Thoughts are goal oriented and rational. No tangential or magical thinking noted. Patient speaks in full sentences without needing to catch her breath. HEENT: Normocephalic atraumatic. Strabismus is present. Conjunctivae are moist without any icterus noted. Dry mucous membranes. Posterior pharynx is normal. Neck is soft without any lymphadenopathy or thyromegaly. No masses are appreciated. Cardiovascular: Heart is regular rate and rhythm S1 and S2 are present without any murmurs. Lungs: Decreased breath sounds bilaterally, no wheezes, rhonchi or rales are appreciated. Abdomen: Soft and nontender nondistended with normal bowel sounds. Extremities: Bilateral lower extremities are without edema. Normal DP and PT pulses. Skin: Well perfused without any obvious rashes. Const: Vital Signs, click to edit/add: Vital Signs - 24 hr 06/08/23 17:06 06/08/23 17:11 06/08/23 17:11 Temperature 97.5 F L Pulse Rate [Pulse Oximeter] 99 Respiratory Rate 28 H Blood Pressure [Ri ght Forearm] 135/87 Pulse Oximetry 95 95 Oxygen Delivery Me thod Nasal Cannula Nasal Cannula Oxygen Flow Rate 2 2 06/08/23 17:20 06/08/23 17:37 06/08/23 18:06 Temperature 97.5 F L Pulse Rate [Pulse Oximeter] 87 90 89 Respiratory Rate 24 24 24 Blood Pressure [Ri ght Forearm] 138/83 116/86 122/85 Pulse Oximetry 95 97 97 Oxygen Delivery Me thod Nasal Cannula Nasal Cannula Nasal Cannula Oxygen Flow Rate 2 2 2 Course Course ED Course: EKG, read by me, shows normal sinus rhythm, prolonged QT. Pulse is 89. Chest x-ray, read by me, does not show any acute pathology. CBC and chemistries are unremarkable. CRP minimally elevated at 1.7. Triple swab negative. Despite not getting any treatment while she was here patient stated that she felt much better compared to when she came in. Vital Signs Vital signs: Initial Vital Signs Temperature 97.5 F L 06/08/23 17:06 Temperature Source Temporal Artery Scan 06/08/23 17:06 Pulse Rate 99 06/08/23 17:06 Respiratory Rate 28 H 06/08/23 17:06 Blood Pressure 135/87 06/08/23 17:06 Blood Pressure Mean 103 06/08/23 17:06 Pulse Oximetry 95 06/08/23 17:06 Oxygen Delivery Method Nasal Cannula 06/08/23 17:06 Oxygen Flow Rate 2 06/08/23 17:06 Vital Signs Temperature 97.5 F L 06/08/23 17:06 Pulse Rate 99 06/08/23 17:06 Respiratory Rate 28 H 06/08/23 17:06 Blood Pressure 135/87 06/08/23 17:06 Pulse Oximetry 95 06/08/23 17:06 Oxygen Delivery Method Nasal Cannula 06/08/23 17:06 Oxygen Flow Rate 2 06/08/23 17:06 Temperature 97.5 F L 06/08/23 17:20 Pulse Rate 89 06/08/23 18:06 Respiratory Rate 24 06/08/23 18:06 Blood Pressure 122/85 06/08/23 18:06 Pulse Oximetry 97 06/08/23 18:06 Oxygen Delivery Method Nasal Cannula 06/08/23 18:06 Oxygen Flow Rate 2 06/08/23 18:06 Medical Decision Making MDM Narrative Medical decision making narrative: 47-year-old female with subjective shortness of breath, nothing new to explain her symptoms today. Patient is on Spiriva, albuterol nebs, Symbicort. Recommend she continue her treatments as prescribed. If she develops fever, vomiting, the need to increase her oxygen above 2 L, then she should return to the ER. Patient also clean out her CPAP machine and follow up with her primary care provider. Lab Data Lab results reviewed: Yes I reviewed the patient's lab results Labs: Lab Results 06/08/23 06/08/23 06/08/23 Range/Units 16:56 17:41 17:44 WBC 9.06 (4.50-11.00) K/uL RBC 4.63 (4.00-5.20) m/uL Hgb 13.6 (12.0-16.0) gm/dL Hct 42.3 (33.0-51.0) % MCV 91 (80-100) fL MCH 29 (26-34) pg MCHC 32 (32-36) gm/dL RDW Coeff of Tomy 13.3 (11.5-15.5) % Plt Count 212 (140-440) K/uL Neut % (Auto) 71.1 (42.0-72.0) % Lymph % (Auto) 19.2 L (20-44) % [place] % (Auto) 6.5 (0.0-11.0) % Eos % (Auto) 2.1 (0.0-7.0) % Baso % (Auto) 0.4 (0.0-3.0) % Neut # (Auto) 6.44 (1.7-7.0) K/uL Lymph # (Auto) 1.70 (0.90-2.90) K/uL [place] # (Auto) 0.60 (0.00-0.90) K/UL Eos # (Auto) 0.19 (0.00-0.50) K/uL Baso # (Auto) 0.04 (0.00-0.30) K/uL Abs Immat Gran (auto) 0.06 (0.00-0.30) K/uL Imm/Tot Granulo (auto) 0.7 % Sodium 139 (135-149) mmol/L Potassium 4.0 (3.6-5.1) mmol/L Chloride 100 (96-114) mmol/L Carbon Dioxide 36 H (20-32) mmol/L Anion Gap 3 L (7-15) mEq/L BUN 12 (5-24) mg/dL Creatinine 0.7 (0.5-1.5) mg/dL Estimated Creat Clear 178.05 Estimated GFR 109 ml/min Glucose 87 (60-115) mg/dL Calcium 9.1 (8.4-10.6) mg/dL Troponin I < 0.01 L (0.01-0.04) ng/mL C-Reactive Protein 1.7 H (0.5-1.0) mg/dL Urine Color Cancelled Urine Appearance Cancelled Urine pH Cancelled Ur Specific [place] Cancelled Urine Protein Cancelled Urine Glucose (UA) Cancelled Urine Ketones Cancelled Urine Blood Cancelled Urine Nitrite Cancelled Urine Bilirubin Cancelled Urine Urobilinogen Cancelled Ur Leukocyte Esterase Cancelled Urine RBC Cancelled Urine WBC Cancelled Urine WBC Clumps Cancelled Ur Squamous Epith Cells Cancelled Jamari Biurate Crystals Cancelled Calcium Carbonate Cryst Cancelled Calcium Phosphate Cryst Cancelled Calcium Oxalate Crystal Cancelled Cystine Crystals Cancelled Uric Acid Crystals Cancelled Triple Phos Crystals Cancelled Sulfur Crystals Cancelled Cholesterol Crystals Cancelled Tyrosine Crystals Cancelled Hippuric Acid Crystals Cancelled Amorphous Sediment Cancelled Other Sediment Cancelled Urine Bacteria Cancelled Fatty Casts Cancelled Hyaline Casts Cancelled Fine Granular Casts Cancelled Coarse Granular Casts Cancelled Waxy Casts Cancelled RBC Casts Cancelled WBC Casts Cancelled Other Casts Cancelled Urine Starch Cancelled Urine Mucus Cancelled Urine Trichomonas Cancelled Urine Yeast Cancelled SARS-CoV-2 (PCR) Negative SARS-CoV-2 (Negative) Influenza Type A (PCR) Negative PCR FLU A (Negative) Influenza Type B (PCR) Negative PCR FLU B (Negative) RSV (PCR) Negative PCR RSV (Negative) Imaging Data Chest x-ray: Attestation: I have reviewed the pertinent imaging results. Radiologist's impression: Shortness of breath. COMPARISON: 04/25/2023. FINDINGS: PA and lateral views of the chest were obtained. The cardiac silhouette and pulmonary vasculature are within normal limits. The lungs are clear bilaterally. IMPRESSION: No evidence of acute pulmonary disease. ECG Data Attestation: I personally reviewed and interpreted this ECG as follows: Discharge Plan Discharge Clinical Impression: Shortness of breath Patient Disposition: Home, Self-Care Condition: Stable Additional Instructions: Make sure to clean out your CPAP machine, follow-up with your primary care provider to discuss your sleep quality. Prescriptions: No Action levetiracetam [Keppra] 750 mg tablet 750 mg PO BID solifenacin 10 mg tablet 10 mg PO DAILY furosemide 40 mg tablet 40 mg PO DAILY Qty: 33 0RF Rx Instructions: Take one table twice a day for three days starting 03/07/2023, then once a day after that potassium chloride 20 mEq tablet extended release 20 meq PO DAILY Qty: 33 0RF Rx Instructions: Take one tablet twice a day for three days starting 03/07/2023, then once a day after that montelukast 10 mg tablet 10 mg PO HS Myrbetriq 50 mg tablet extended release 24 hr 50 mg PO DAILY Patient Comments: albuterol sulfate 90 mcg/actuation HFA aerosol inhaler 2 puff INHALATION Q4H PRN levothyroxine 125 mcg tablet 125 mcg PO QAM cholecalciferol (vitamin D3) 50 mcg (2,000 unit) capsule 50 mcg PO DAILY paroxetine HCl 40 mg tablet 40 mg PO DAILY Patient Comments: terbinafine HCl 1 % cream topical BID furosemide 40 mg Tablet 40 mg PO DAILY Qty: 30 0RF prednisone 20 mg Tablet 40 mg PO DAILYWM Qty: 2 0RF potassium chloride 10 mEq capsule, extended release 20 meq PO DAILY Qty: 60 2RF albuterol sulfate 2.5 mg /3 mL (0.083 %) solution for nebulization 2.5 mg inhalation Q8H PRNQty: 1 0RF budesonide-formoterol [Symbicort] 160-4.5 mcg/actuation HFA aerosol inhaler 2 puff INHALATION BID Qty: 1 0RF Spiriva Respimat 2.5 mcg/actuation mist 2 puff inhalation DAILY Qty: 1 0RF ipratropium-albuterol 0.5 mg-3 mg(2.5 mg base)/3 mL solution for nebulization 3 ml inhalation Q6-8H PRNQty: 90 0RF omeprazole 20 mg capsule,delayed release(DR/EC) 40 mg PO DAILY Follow Up/Referrals: Geronimo Lamb MD [Primary Care Provider] - Stand Alone Forms: [facility] Info Instructions
[2023-06-08 18:19] LABS: Troponin I* < 0.01 ng/mL (0.01-0.04)
[2023-06-08 18:29] LABS: PCR FLU A Negative PCR FLU A (Negative); PCR FLU B Negative PCR FLU B (Negative); PCR RSV Negative PCR RSV (Negative); SARS PCR* Negative SARS-CoV-2 (Negative)
[2023-06-08 19:08] VITALS: BP 111/80; PULSE 86; RESP 22; TEMP 36.9
== END 2023-06-08 19:10 | disposition home or self-care (01) ==
PROVIDERS: Emergency Provider Family Medicine; PCP Family Medicine
DX: R06.02 Shortness of breath (principal)
CPT/HCPCS: 36415; 71046; 80048; 81001; 84484; 85025; 86140; 87086; 87631; 93005; 94761; 99284; 99285

== ENCOUNTER 2023-06-27 04:03 | Outpatient (CLI) | payer MEDICAID, SELFPAY ==
--- OUTSIDE RECORDS SUMMARY | 2023-06-28 06:01 | XMS_ITS | Encounter Summary ---
Author Name Unknown Organization [facility] Address [address] [place] [address] Care Team Providers Care Java Core Developer Name Role Phone Elsewhere, Pcp Primary Care Provider Unavailabl e Encounter Details Date Type Department Care Team (Latest Contact Info) Description 01/13/2023 12:45 PM CDT Ancillary Procedure Department of Ophthalmology in [place], [place] [address] [place] [address] Emerson Delvalle M.D. [address] [place] [address] Age Related Nuclear Cataract Bilateral Social History [...] Sex Assigned at Female 06/02/2018 2:11 PM FOUNDER CEO [employer] PRESIDENT Gender Identity Female 06/02/2018 2:11 PM FOUND[employer] CEO [employer] PRESIDENT Sexual Orientation Choose not to disclose 2018 2:11 PM FOUND[employer] CEO [employer] PRESIDENT documented as of this encounter Plan of [...] documented as of this encounter Care Teams Java Core Developer Relationship Specialty Start Date End Date Elsewhere, Pcp PCP - General Internal Medicine 12/04/18 documented as of this encounter
--- OUTSIDE RECORDS SUMMARY | 2023-06-28 06:01 | XMS_ITS | Clinical Summary ---
Author Name Unknown Organization [employer] [facility] Address [place], [place] [address] Care Team Providers Care Machine Packaging Technician Name Role Phone Paolo Limon MD Unavailable Talon Durham MD Unavailable [phone] Laura Gardner PsyD, Unavailable [phone] Geronimo Lamb MD Primary Care Provider Allergies [...] [facility], medication life care planner with alarm 1 unit 0 04/22/2014 [...] Anxiety and depression Dizziness Overview: Eval by [facility] neurology 2018. Thought to be functional. [...] Department Care Team Description 06/10/2023 2:05 PM STONE LAYOUT MARKER Office Visit [facility] [address] [place] [address] Geronimo Lamb MD Ear Problem (Left ear pain, started about a week ago); Dizziness (Spinning and non-spinning, started about a month ago); Headache (Off and on started about 6 weeks ago) 06/10/2023 Travel 06/08/2023 Orders Only [facility] Scanner 1 scan: (1-Ord) [facility], XR CHEST 2V, 06/08/2023 05/27/2023 3:00 PM STONE LAYOUT MARKER Office Visit [facility] [place] [facility] [address] [place] [address] Dread Villavicencio MD Follow Up (Seizure ); Dizziness (2 weeks) 05/27/2023 Travel 05/15/2023 1:40 PM STONE LAYOUT MARKER Office Visit [facility] [address] [place] [address] Geronimo Lamb MD Shortness Of Breath; Throat Problem 05/15/2023 Travel 05/15/2023 Telephone [facility] [address] [place] [address] Geronimo Lamb MD Lab 05/10/2023 Orders Only [facility] Scanner 1 scan: (1-Ord) [facility], XR CERVICAL SPINE 2-3V, 05/10/2023 04/30/2023 10:00 AM STONE LAYOUT MARKER Telemedicine [facility] [address] [place] [address] Telehealth; Medical Nutrition Therapy 04/24/2023 Refill [facility] [address] [place] [address] Geronimo Lamb MD Refill Request (Bupropion, Levetiracetam, Albuterol Hfa) 04/18/2023 Patient Outreach [facility] Care Management - Advanced Care Team [address] [place], [place] [phone] [place], [facility] Population Health (Social work community resource navigation. /) 04/14/2023 Telephone [facility] [address] [place] [address] Geronimo Lamb MD Questions (pulmonary rehab questions ) 04/10/2023 10:35 AM STONE LAYOUT MARKER Office Visit [facility] [address] [facility] [place] [address] Geronimo Lamb MD Follow Up 04/10/2023 Travel 04/09/2023 8:30 AM STONE LAYOUT MARKER Telemedicine [facility] [address] [place] [address] Telehealth; Medical Nutrition Therapy 04/02/2023 Refill [facility] [address] [place] [address] Geronimo Lamb MD Refill Request (Myrbetriq) 04/02/2023 Refill [facility] [address] [place] [address] Geronimo Lamb MD Refill Request (Solifenacin) from Last 3 Months Immunizations Name Administration Dates Next Due COVID-19 Vaccine Spikevax (M oderna 50mcg/0.5mL) 12YO+ [id number] Formula PF 03/19/2023 COVID-19 vaccine (Pfizer-Bio NTech [...] Comments Blood Pressure 138/85 06/10/2023 2:35 PM STONE LAYOUT MARKER Pulse 103 06/10/2023 2:16 PM STONE LAYOUT MARKER Temperature 36.7 ??C (98.1 ??F) 05/15/2023 1:42 PM CS T Respiratory Rate 90 06/10/2023 2:35 PM STONE LAYOUT MARKER Oxygen Saturation 95% 06/10/2023 2:16 PM STONE LAYOUT MARKER Inhaled Oxygen Concentration - - Weight 108.9 kg (240 lb) 06/10/2023 2:16 PM STONE LAYOUT MARKER Height 142.2 cm (4' 8) 02/10/2023 3:17 PM CDT Body Mass Index 53.81 02/10/2023 3:17 PM CDT Plan of Treatment Upcoming Encounters Date Type Department Care Team (Late st Contact Info) Description 07/10/2023 3:20 PM STONE LAYOUT MARKER Office Visit [facility] [address] [place] [address] Geronimo Lamb MD [address] [place] [address] 07/17/2023 2:30 PM STONE LAYOUT MARKER Office Visit [address] [phone] Carley, Heahter Vaughan, AuD [address] [place], [place] [phone] 07/17/2023 3:00 PM STONE LAYOUT MARKER Office Visit [address] [phone] Jasmyne Amaya MD [address] [facility] [address] [place] [address] 07/24/2023 3:00 PM STONE LAYOUT MARKER Office Visit [facility] [address] [place] [address] Paolo Limon MD [address] [place] [address] Health Maintenance Due Date Last Done Comments [...] TSH WITH REFLEX Routine 06/10/2023 3:22 PM STONE LAYOUT MARKER Hypothyroidism (acquired) SCAN-RADIOLOGY REPORT 06/08/2023 12:00 AM STONE LAYOUT MARKER COVID-19 MOLECULAR Routine 05/15/2023 2: 00 PM STONE LAYOUT MARKER Flu-like symptoms INFLUENZA A/B PCR Routine 05/15/2023 2:0 0 PM STONE LAYOUT MARKER Flu-like symptoms SCAN-RADIOLOGY REPORT 05/10/2023 12:00 AM STONE LAYOUT MARKER from Last 3 Months Results * TSH WITH REFLEX (06/10/2023 3:22 PM STONE LAYOUT MARKER) TSH 0.46 0.27 - 4.20 uIU/mL 06/11/2023 3:56 PM STONE LAYOUT MARKER [facility] Blood BLOOD SPECIMEN / Unknown Butterfly / Unknown 06/10/2023 3:22 PM STONE LAYOUT MARKER 06/10/2023 3:25 PM STONE LAYOUT MARKER Narrative [facility] - 06/11/2023 3:56 PM STONE LAYOUT MARKER In Adults, TSH values between 5.00 and 10.00 uIU/ml do not necessarily indicate the presence of Hypothyroidism. Correlation with clinical findings such as presence of goiter and/or Thyroperoxidase (TPO) Antibody may be helpful. For more information please refer to SIVAN 2004; 291: 228-238. Geronimo Lamb MD CHEMISTRY [facility] [address] [place] [address], * SCAN-RADIOLOGY REPORT (06/08/2023 12:00 AM STONE LAYOUT MARKER) Only the most recent of2 resultswithin the time period is included. Anatomical Region Laterality Modality Other Scanner OTHER * COVID-19 MOLECULAR (05/15/2023 2:00 PM STONE LAYOUT MARKER) COVID 19 [facility]INA MOLECULAR Negative Negative 05/16/2023 1:22 AM STONE LAYOUT MARKER [facility]- [facility]ORATORY TESTING LABORATORY [facility] Laboratory 05/16/2023 1:22 AM STONE LAYOUT MARKER [facility] Comment:Specimen submitted t o [facility] for testing. Other SPECIMEN FROM NASAL FOSSAE / Unknown Non-Blood / Unknown 05/15/2023 2:00 PM STONE LAYOUT MARKER 05/15/2023 2:14 PM STONE LAYOUT MARKER Narrative [facility] - 05/16/2023 1:22 AM STONE LAYOUT MARKER All PCR tests are subject to false [...] Geronimo Lamb MD MICROBIOLOGY Performing Organization Address [facility] Co de Phone Number [facility] [address] [address], * INFLUENZA A/B PCR (05/15/2023 2:00 PM STONE LAYOUT MARKER) INFLUENZA A PCR Negative 05/16/2023 1:22 AM STONE LAYOUT MARKER [facility] TRAL LABORATORY INFLUENZA B PCR Negative 05/16/2023 1:22 AM STONE LAYOUT MARKER [facility] TRAL LABORATORY Other SPECIMEN FROM NASAL FOSSAE / Unknown Non-Blood / Unknown 05/15/2023 2:00 PM STONE LAYOUT MARKER 05/15/2023 2:14 PM STONE LAYOUT MARKER Geronimo Lamb MD MICROBIOLOGY Performing Organization Address City/[facility] Co de Phone Number [facility] [address] [address], from Last 3 Months Care Teams Machine Packaging Technician Relationship Specialty Start Date End Date Geronimo Lamb MD [address] [facility] [place] [address] PCP - General Family Practice 04/23/21 Paolo Limon MD Sleep Medicine 10/28/11 Talon Durham MD Neurology Neurology 11/26/11 Laura Gardner PsyD, SYM[facility] Psychology 09/14/13
--- OUTSIDE RECORDS SUMMARY | 2023-06-28 06:01 | XMS_ITS ---
Author Name Unknown Organization [facility] Address [address] [place] [address] Care Team Providers Care Director Fraud Name Role Phone Unavailable Unavailable Unavailable Surgery Details Not on file Complications Check Surgery Details section. Procedure Estimated Blood Loss Check Surgery Details section. Procedure Findings Check Surgery Details section. Procedure Specimens Taken Check Surgery Details section.
--- OUTSIDE RECORDS SUMMARY | 2023-06-28 06:01 | XMS_ITS | Encounter Summary ---
Author Name Unknown Organization [facility] Address [address] [place] [address] Care Team Providers Care Wool Spotter Name Role Phone Elsewhere, Pcp Primary Care Provider Unavailabl e Encounter Details Date Type Department Care Team (Late st Contact Info) Description 01/13/2023 Episode Changes Department of Ophthalmology in [place], [place] [address] [place] [address] Jaquelin Gracia Social History Tobacco Use Types [...] Assigned at Female 06/02/2018 2:11 PM STAFF RN Gender Identity Female 06/02/2018 2:11 PM STAFF RN Sexual Orientation Choose not to disclose 2018 2:11 PM STAFF RN documented as of this encounter Plan of Treatment Not on file documented as of this encounter Visit Diagnoses Not on filedocumented in this encounter Additional Health Concerns Assessment Noted Time PHQ-9 Depression Total Score: 14 019 3:26 PM CDT documented as of this encounter Care Teams Wool Spotter Relationship Specialty Start Date End Date Elsewhere, Pcp PCP - General Internal Medicine 12/04/18 documented as of this encounter
--- OUTSIDE RECORDS SUMMARY | 2023-06-28 06:01 | XMS_ITS ---
Author Name Unknown Organization [facility] Address [address] [place] [address] Care Team Providers Care Properties Supervisor Name Role Phone Elsewhere, Pcp Primary Care Provider Unavailabl e Transplant Episode Lung Candidate [facility] ([place], [place]) - [facility] Referred on 03/27/2023 Marked as Active on 03/27/2023 Lung CoordinatorCoordinator Transplant, R.N. Phone: N/A Fax: N/A Email: N/A Care Team Name Role Phone Fax Email Coordinator Transplant, R.N. Lung Coordinator N/A N /A N/A Events Pre-Transplant Referred: 03/27/2023
--- OUTSIDE RECORDS SUMMARY | 2023-06-28 06:01 | XMS_ITS | Encounter Summary ---
Author Name Unknown Organization [facility] Address [address] [place] [address] Care Team Providers Care Marketing Analytics Lead Name Role Phone Elsewhere, Pcp Primary Care Provider Unavailabl e Reason for Visit * Reason Comments Cataract * Appointment Request (Routine) - Closed Specialty Diagnoses / Procedures Referred By Contsanju t Referred To Contact Ophthalmology Diagnoses Cataract Senile Cortical Roxanne De León M.D. [address] [place] [address] Referral ID Status Reason Start Date Expiration Date Visits Re quested Visits Authorized [id number] Closed 06/07/2022 06/07/2023 1 1 Encounter Details Date Type Department Care Team (Latest Contact Info) Description 01/13/2023 2:00 PM CDT Comprehensive Visit Department of Ophthalmology in [place], [place] [address] [place] [address] Emerson Delvalle M.D. [address] [place] [address] Keratoconus Bilateral (Primary Dx); Astigmatism Irregular Bilateral; [...] Sex Assigned at Female 06/02/2018 2:[address] TRANSCRIBER Gender Identity Female 06/02/2018 2:[address] TRANSCRIBER Sexual Orientation Choose not to disclose 2018 2:[address] TRANSCRIBER documented as of this encounter Progress Notes [...] documented as of this encounter Care Teams Marketing Analytics Lead Relationship Specialty Start Date End Date Elsewhere, Pcp PCP - General Internal Medicine 12/04/18 documented as of this encounter
--- OUTSIDE RECORDS SUMMARY | 2023-06-28 06:01 | XMS_ITS | Encounter Summary ---
Author Name Unknown Organization [facility] Address [address] [place] [address] Care Team Providers Care Aquatic Biologist Name Role Phone Elsewhere, Pcp Primary Care Provider Unavailabl e Encounter Details Date Type Department Care Team (Latest Contact Info) Description 01/13/2023 1:00 PM CDT Ancillary Procedure Department of Ophthalmology in [place], [place] [address] [place] [address] Emerson Delvalle M.D. [address] [place] [address] Age Related Nuclear Cataract Bilateral Social History [...] Sex Assigned at Female 06/02/2018 2:11 PM HOTEL CONCIERGE Gender Identity Female 06/02/2018 2:11 PM HOTEL CONCIERGE Sexual Orientation Choose not to disclose 2018 2:11 PM HOTEL CONCIERGE documented as of this encounter Plan of [...] documented as of this encounter Care Teams Aquatic Biologist Relationship Specialty Start Date End Date Elsewhere, Pcp PCP - General Internal Medicine 12/04/18 documented as of this encounter
--- OUTSIDE RECORDS SUMMARY | 2023-06-28 06:01 | XMS_ITS | Clinical Summary ---
Author Name Unknown Organization [facility] Address [address] [place] [address] Care Team Providers Care Sweeper Driver Name Role Phone Elsewhere, Pcp Primary Care Provider Unavailabl e Source Comments Patient records contain information from all sites at [facility]. For routine questions regarding patient records, call [phone] during business hours, M-F 8:00 AM - 5:00 PM Central Time. Record requests for emergency care only can be directed to [phone] at any time.[facility] Allergies Active Allergy Reactions Criticality Noted Date [...] [facility] in [place], [place] [address] [place] [address] Violetta Mitchell, RAlexusN. Treatment Questions from Last [...] Sex Assigned at Female 06/02/2018 2:11 PM SAMPLE CHECKER Gender Identity Female 06/02/2018 2:11 PM SAMPLE CHECKER Sexual Orientation Choose not to disclose 2018 2:11 PM SAMPLE CHECKER Last Filed Vital Signs Vital Sign Reading [...] this topic Medical Devices Implanted Type Area Molding Cutter Device Identifier Shelf Expiration Date Model / Serial / Lot Ear Implant- 011 Implanted:11/24 (Quantity not on file) Ear Implant Ear Olympus Bernice Vega TORP Plasti-pore [id number] / / [id number] Description:[facility], [place], [place]. Ear implant-Vega TOPR Plasti-pore MRI Safe Care Teams Sweeper Driver Relationship Specialty Start Date End Date Elsewhere, Pcp PCP - General Internal Medicine 12/04/18
--- OUTSIDE RECORDS SUMMARY | 2023-06-28 06:01 | XMS_ITS | Referral Summary ---
Author Name Unknown Organization [facility] Address [address] [place] [address] Care Team Providers Care Tawer Name Role Phone Elsewhere, Pcp Primary Care Provider Unavailabl e Source Comments Patient records contain information from all sites at [facility]. For routine questions regarding patient records, call [phone] during business hours, M-F 8:00 AM - 5:00 PM Central Time. Record requests for emergency care only can be directed to [phone] at any time.[facility] Encounters Date Type Department Care Team Description 05/21/2023 Clinical Communication [facility] in [place], [place] [address] [place] [address] Violetta Mitchell R.N. Treatment Questions from Last [...] Sex Assigned at Female 06/02/2018 2:11 PM SENIOR C WEB DEVELOPER Gender Identity Female 06/02/2018 2:11 PM SENIOR C WEB DEVELOPER Sexual Orientation Choose not to disclose 2018 2:11 PM SENIOR C WEB DEVELOPER Last Filed Vital Signs Vital Sign Reading [...] on file Medical Devices Implanted Type Area Mounter Device Identifier Shelf Expiration Date Model / Serial / Lot Ear Implant- 011 Implanted:11/24 (Quantity not on file) Ear Implant Ear Olympus Bernice Vega TORP Plasti-pore [id number] / / [id number] Description:[facility], [place], [place]. Ear implant-Vega TOPR Plasti-pore MRI Safe Care Teams Tawer Relationship Specialty Start Date End Date Elsewhere, Pcp PCP - General Internal Medicine 12/04/18
--- OUTSIDE RECORDS SUMMARY | 2023-06-28 06:01 | XMS_ITS | Encounter Summary ---
Author Name Unknown Organization [facility] Address [address] [place] [address] Care Team Providers Care Prefitter Name Role Phone Elsewhere, Pcp Primary Care Provider Unavailabl e Reason for Visit * Reason Onset Date Comments Appointment 10/07/2022 Encounter Details Date Type Department Care Team (Latest Contact Info) Description 10/07/2022 Clinical Communication Department of Ophthalmology in [place], [place] [address] [place] [address] Provider, Unknown Appointment Social History Tobacco Use [...] Sex Assigned at Female 06/02/2018 2:11 PM STAIN APPLICATOR Gender Identity Female 06/02/2018 2:11 PM STAIN APPLICATOR Sexual Orientation Choose not to disclose 2018 2:11 PM STAIN APPLICATOR documented as of this encounter Plan of Treatment Not on file documented as of this encounter Visit Diagnoses Not on filedocumented in this encounter Additional Health Concerns Assessment Noted Time PHQ-9 Depression Total Score: 14 019 3:26 PM CDT documented as of this encounter Care Teams Prefitter Relationship Specialty Start Date End Date Elsewhere, Pcp PCP - General Internal Medicine 12/04/18 documented as of this encounter
--- OUTSIDE RECORDS SUMMARY | 2023-06-28 06:01 | XMS_ITS | Encounter Summary ---
Author Name Unknown Organization [facility] Address [address] [place] [address] Care Team Providers Care Slip Injector And Applicator Name Role Phone Elsewhere, Pcp Primary Care [...] Sex Assigned at Female 06/02/2018 2:11 PM STOREKEEPER ENGINEERING Gender Identity Female 06/02/2018 2:11 PM STOREKEEPER ENGINEERING Sexual Orientation Choose not to disclose 2018 2:11 PM STOREKEEPER ENGINEERING documented as of this encounter Plan of [...] documented as of this encounter Care Teams Slip Injector And Applicator Relationship Specialty Start Date End Date Elsewhere, Pcp PCP - General Internal Medicine 12/04/18 documented as of this encounter
--- OUTSIDE RECORDS SUMMARY | 2023-06-28 06:01 | XMS_ITS | Encounter Summary ---
Author Name Unknown Organization [facility] Address [address] [place] [address] Care Team Providers Care Embedded Linux Developer Name Role Phone Elsewhere, Pcp Primary Care Provider Unavailabl e Reason for Visit * Reason Onset Date Comments Treatment Questions 05/21/2023 Encounter Details Date Type Department Care Team (Latest Contact Info) Description 05/21/2023 Clinical Communication [facility] [place] [facility]eneration in [place], [place] [address] [place] [address] Violetta Mitchell R.N. [address] [place] [phone] Treatment Questions Social History Tobacco Use Types [...] Sex Assigned at Female 06/02/2018 2:11 PM SALES CONTRACTS ANALYST Gender Identity Female 06/02/2018 2:11 PM SALES CONTRACTS ANALYST Sexual Orientation Choose not to disclose 2018 2:11 PM SALES CONTRACTS ANALYST documented as of this encounter Plan of Treatment Not on file documented as of this encounter Visit Diagnoses Not on filedocumented in this encounter Additional Health Concerns Assessment Noted Time PHQ-9 Depression Total Score: 14 10/27/ 019 3:26 PM CDT documented as of this encounter Care Teams Embedded Linux Developer Relationship Specialty Start Date End Date Elsewhere, Pcp PCP - General Internal Medicine 12/04/18 documented as of this encounter
== END 2023-06-27 04:04 | disposition home or self-care (01) ==
LOC: AMB 06-28 05:58
PROVIDERS: PCP Family Medicine; Visit Provider Family Medicine
DX: K08.89 Other specified disorders of teeth and supporting structures (principal)
CPT/HCPCS: A0425; A0429

== ENCOUNTER 2023-06-27 04:15 | Emergency (ER) | payer MEDICAID, SELFPAY ==
[2023-06-27 04:22] VITALS: BP 126/83; PULSE 103; RESP 16; TEMP 36.4; O2SAT 91; BMI 49.8
--- OUTSIDE RECORDS SUMMARY | 2023-06-27 05:00 | XMS_ITS | Encounter Summary ---
Author Name Unknown Organization [facility] Address [address] [place] [address] Care Team Providers Care Waste Picker Name Role Phone Elsewhere, Pcp Primary Care [...] Sex Assigned at Female 06/02/2018 2:11 PM STAFF MIDWIFE Gender Identity Female 06/02/2018 2:11 PM STAFF MIDWIFE Sexual Orientation Choose not to disclose 2018 2:11 PM STAFF MIDWIFE documented as of this encounter Plan of [...] documented as of this encounter Care Teams Waste Picker Relationship Specialty Start Date End Date Elsewhere, Pcp PCP - General Internal Medicine 12/04/18 documented as of this encounter
--- OUTSIDE RECORDS SUMMARY | 2023-06-27 05:00 | XMS_ITS | Encounter Summary ---
Author Name Unknown Organization [facility] Address [address] [place] [address] Care Team Providers Care Dispatcher Relay Name Role Phone Elsewhere, Pcp Primary Care Provider Unavailabl e Reason for Visit * Reason Onset Date Comments Treatment Questions 05/21/2023 Encounter Details Date Type Department Care Team (Latest Contact Info) Description 05/21/2023 Clinical Communication [facility] in [place], [place] [address] [place] [address] Violetta Mitchell [address] [place] [address] Treatment Questions Social History Tobacco Use Types [...] Sex Assigned at Female 06/02/2018 2:11 PM INVESTMENT BANKING ANALYST Gender Identity Female 06/02/2018 2:11 PM INVESTMENT BANKING ANALYST Sexual Orientation Choose not to disclose 2018 2:11 PM INVESTMENT BANKING ANALYST documented as of this encounter Plan of Treatment Not on file documented as of this encounter Visit Diagnoses Not on filedocumented in this encounter Additional Health Concerns Assessment Noted Time PHQ-9 Depression Total Score: 14 06/04/2 019 3:26 PM CDT documented as of this encounter Care Teams Dispatcher Relay Relationship Specialty Start Date End Date Elsewhere, Pcp PCP - General Internal Medicine 12/04/18 documented as of this encounter
--- OUTSIDE RECORDS SUMMARY | 2023-06-27 05:00 | XMS_ITS | Encounter Summary ---
Author Name Unknown Organization [facility] Address [address] [place] [address] Care Team Providers Care Extrusion Die Template Maker Name Role Phone Elsewhere, Pcp Primary Care Provider Unavailabl e Reason for Visit * Reason Comments Cataract * Appointment Request (Routine) - Closed Specialty Diagnoses / Procedures Referred By Contsanju t Referred To Contact Ophthalmology Diagnoses Cataract Senile Cortical Roxanne De León M.D. [address] [place] [address] Referral ID Status Reason Start Date Expiration Date Visits Re quested Visits Authorized [id number] Closed 06/07/2022 06/07/2023 1 1 Encounter Details Date Type Department Care Team (Latest Contact Info) Description 01/13/2023 2:00 PM CDT Comprehensive Visit Department of Ophthalmology in [place], [place] [address] [place] [address] Emerson Delvalle M.D. [address] [place] [address] Keratoconus Bilateral (Primary Dx); Astigmatism Irregular Bilateral; [...] Sex Assigned at Female 06/02/2018 2:11 PM HOGSHEAD STRIPPER Gender Identity Female 06/02/2018 2:11 PM HOGSHEAD STRIPPER Sexual Orientation Choose not to disclose 2018 2:11 PM HOGSHEAD STRIPPER documented as of this encounter Progress Notes [...] documented as of this encounter Care Teams Extrusion Die Template Maker Relationship Specialty Start Date End Date Elsewhere, Pcp PCP - General Internal Medicine 12/04/18 documented as of this encounter
--- OUTSIDE RECORDS SUMMARY | 2023-06-27 05:00 | XMS_ITS ---
Author Name Unknown Organization [facility] Address [address] [place] [address] Care Team Providers Care Commercial Loan Officer Name Role Phone Unavailable Unavailable Unavailable Surgery Details Not on file Complications Check Surgery Details section. Procedure Estimated Blood Loss Check Surgery Details section. Procedure Findings Check Surgery Details section. Procedure Specimens Taken Check Surgery Details section.
--- OUTSIDE RECORDS SUMMARY | 2023-06-27 05:00 | XMS_ITS | Referral Summary ---
Author Name Unknown Organization [facility] Address [address] [place] [address] Care Team Providers Care Aniline Press Worker Name Role Phone Elsewhere, Pcp Primary Care Provider Unavailabl e Source Comments Patient records contain information from all sites at [facility]. For routine questions regarding patient records, call [phone] during business hours, M-F 8:00 AM - 5:00 PM Central Time. Record requests for emergency care only can be directed to [phone] at any time.[facility] Encounters Date Type Department Care Team Description 05/21/2023 Clinical Communication [facility] [place], [place] [address] [place] [address] Violetta Mitchell Treatment Questions from Last 3 Months Allergies [...] Administration Dates Next Due Influenza, Unspecified 05/01/2016,02/06/2015 PPSV23(Discontinued) 09/14/2013 Tdap 10/29/2010 influenza high dose (65 [...] Sex Assigned at Female 06/02/2018 2:11 PM CARPENTER Gender Identity Female 06/02/2018 2:11 PM CARPENTER Sexual Orientation Choose not to disclose 2018 2:11 PM CARPENTER Last Filed Vital Signs Vital Sign Reading [...] on file Medical Devices Implanted Type Area Supplier Relationship Director Device Identifier Shelf Expiration Date Model / Serial / Lot Ear Implant- [id number] Implanted:11/24 (Quantity not on file) Ear Implant Ear Olympus Bernice Vega TORP Plasti-pore [id number] / / [id number] Description:[facility], [place], [place]. Ear implant-Vega TOPR Plasti-pore MRI Safe Care Teams Aniline Press Worker Relationship Specialty Start Date End Date Elsewhere, Pcp PCP - General Internal Medicine 12/04/18
--- OUTSIDE RECORDS SUMMARY | 2023-06-27 05:00 | XMS_ITS | Clinical Summary ---
Author Name Unknown Organization [facility] Address [address] [place] [address] Care Team Providers Care Form Tamping Machine Operator Name Role Phone Elsewhere, Pcp Primary Care Provider Unavailabl e Source Comments Patient records contain information from all sites at [facility]. For routine questions regarding patient records, call [phone] during business hours, M-F 8:00 AM - 5:00 PM Central Time. Record requests for emergency care only can be directed to [phone] at any time.[facility] Allergies Active Allergy Reactions Criticality Noted [...] Team Description 05/21/2023 [facility] [place], [place] [address] [place] [address] Violetta Mitchell Treatment Questions from Last 3 Months Immunizations [...] Sex Assigned at Female 06/02/2018 2:11 PM PUBLIC ADDRESS SYSTEM MECHANIC Gender Identity Female 06/02/2018 2:11 PM PUBLIC ADDRESS SYSTEM MECHANIC Sexual Orientation Choose not to disclose 2018 2:11 PM PUBLIC ADDRESS SYSTEM MECHANIC Last Filed Vital Signs Vital Sign Reading [...] Stimulating Hormone (TSH) test for thyroid function 06/10/2024 06/10/2023, 03/19/2023, 01/14/2023, Additional history exists Fasting Glucose for Diabetes Screening 03/19/2026 03/19/2023, 05/01/2022, 03/11/2018, Additional history exists Pneumococcal vaccine (0-64 years) Completed 01/14/2023, 09/14/2013 COVID-19 Vaccine Completed 03/19/2023, 11/2021, 08/29/2021, Additional history exists HPV Vaccines Aged Out No longer eligi ble based on patient's age to complete this topic Medical Devices Implanted Type Area Cotton Stomper Device Identifier Shelf Expiration Date Model / Serial / Lot Ear Implant- [id number] Implanted:11/24 (Quantity not on file) Ear Implant Ear Olympus Bernice Vega TORP Plasti-pore [id number] / / [id number] Description:[facility], [place], [place]. Ear implant-Vega TOPR Plasti-pore MRI Safe Care Teams Form Tamping Machine Operator Relationship Specialty Start Date End Date Elsewhere, Pcp PCP - General Internal Medicine 12/04/18
--- OUTSIDE RECORDS SUMMARY | 2023-06-27 05:00 | XMS_ITS | Encounter Summary ---
Author Name Unknown Organization [facility] Address [address] [place] [address] Care Team Providers Care Bicycle Rental Clerk Name Role Phone Elsewhere, Pcp Primary Care Provider Unavailabl e Encounter Details Date Type Department Care Team (Latest Contact Info) Description 01/13/2023 1:00 PM CDT Ancillary Procedure Department of Ophthalmology in [place], [place] [address] [place] [address] Emerson Delvalle M.D. [address] [place] [address] Age Related Nuclear Cataract Bilateral Social History [...] Sex Assigned at Female 06/02/2018 2:11 PM BUSINESS OFFICE TECHNOLOGY INSTRUCTOR Gender Identity Female 06/02/2018 2:11 PM BUSINESS OFFICE TECHNOLOGY INSTRUCTOR Sexual Orientation Choose not to disclose 2018 2:11 PM BUSINESS OFFICE TECHNOLOGY INSTRUCTOR documented as of this encounter Plan of [...] recent refraction and fixation. Test not required/indicated. Emersno Delvalle M.D. OPHTH PHOTOGRAPHY OPHTHALMOLOGY IMAGING EXAM documented in this encounter Visit Diagnoses Diagnosis Age Related Nuclear Cataract Bilateral documented in this encounter Additional Health Concerns Assessment Noted Time PHQ-9 Depression Total Score: 14 06/2 019 3:26 PM CDT documented as of this encounter Care Teams Bicycle Rental Clerk Relationship Specialty Start Date End Date Elsewhere, Pcp PCP - General Internal Medicine 12/04/18 documented as of this encounter
--- OUTSIDE RECORDS SUMMARY | 2023-06-27 05:00 | XMS_ITS | Encounter Summary ---
Author Name Unknown Organization [facility] Address [address] [place] [address] Care Team Providers Care Surveillance Monitor Name Role Phone Elsewhere, Pcp Primary Care Provider Unavailabl e Encounter Details Date Type Department Care Team (Late st Contact Info) Description 01/13/2023 Episode Changes Department of Ophthalmology in [place], [place] [address] [place] [address] Jaquelin Gracia Social History Tobacco Use Types [...] Sex Assigned at Female 06/02/2018 2:11 PM ORGANISATION AND METHODS ANALYST Gender Identity Female 06/02/2018 2:11 PM ORGANISATION AND METHODS ANALYST Sexual Orientation Choose not to disclose 2018 2:11 PM ORGANISATION AND METHODS ANALYST documented as of this encounter Plan of Treatment Not on file documented as of this encounter Visit Diagnoses Not on filedocumented in this encounter Additional Health Concerns Assessment Noted Time PHQ-9 Depression Total Score: 14 019 3:26 PM CDT documented as of this encounter Care Teams Surveillance Monitor Relationship Specialty Start Date End Date Elsewhere, Pcp PCP - General Internal Medicine 12/04/18 documented as of this encounter
--- OUTSIDE RECORDS SUMMARY | 2023-06-27 05:01 | XMS_ITS | Encounter Summary ---
Author Name Unknown Organization [facility] Address [address] [place] [address] Care Team Providers Care Incising Machine Operator Name Role Phone Elsewhere, Pcp Primary Care Provider Unavailabl e Encounter Details Date Type Department Care Team (Latest Contact Info) Description 01/13/2023 12:45 PM CDT Ancillary Procedure Department of Ophthalmology in [place], [place] [address] [place] [address] Emerson Delvalle M.D. [address] [place] [address] Age Related Nuclear Cataract Bilateral Social History [...] Sex Assigned at Female 06/02/2018 2:11 PM TIER OVER Gender Identity Female 06/02/2018 2:11 PM TIER OVER Sexual Orientation Choose not to disclose 2018 2:11 PM TIER OVER documented as of this encounter Plan of [...] documented as of this encounter Care Teams Incising Machine Operator Relationship Specialty Start Date End Date Elsewhere, Pcp PCP - General Internal Medicine 12/04/18 documented as of this encounter
--- OUTSIDE RECORDS SUMMARY | 2023-06-27 05:01 | XMS_ITS | Encounter Summary ---
Author Name Unknown Organization [facility] Address [address] [place] [address] Care Team Providers Care Policy Change Clerk Name Role Phone Elsewhere, Pcp Primary Care Provider Unavailabl e Reason for Visit * Reason Onset Date Comments Appointment 10/07/2022 Encounter Details Date Type Department Care Team (Latest Contact Info) Description 10/07/2022 Clinical Communication Department of Ophthalmology in [place], [place] [address] [place] [address] Provider, Unknown Appointment Social History Tobacco Use [...] Sex Assigned at Female 06/02/2018 2:11 PM CHARGE MASTER SPECIALIST Gender Identity Female 06/02/2018 2:11 PM CHARGE MASTER SPECIALIST Sexual Orientation Choose not to disclose 2018 2:11 PM CHARGE MASTER SPECIALIST documented as of this encounter Plan of Treatment Not on file documented as of this encounter Visit Diagnoses Not on filedocumented in this encounter Additional Health Concerns Assessment Noted Time PHQ-9 Depression Total Score: 14 019 3:26 PM CDT documented as of this encounter Care Teams Policy Change Clerk Relationship Specialty Start Date End Date Elsewhere, Pcp PCP - General Internal Medicine 12/04/18 documented as of this encounter
--- OUTSIDE RECORDS SUMMARY | 2023-06-27 05:01 | XMS_ITS ---
Author Name Unknown Organization [facility] Address [address] [place] [address] Care Team Providers Care Legal Job Titles Name Role Phone Elsewhere, Pcp Primary Care Provider Unavailabl e Transplant Episode Lung Candidate [facility] ([place], [place]) - [facility] Referred on 03/27/2023 Marked as Active on 03/27/2023 Lung CoordinatorCoordinator Transplant, R.N. Phone: N/A Fax: N/A Email: N/A Care Team Name Role Phone Fax Email Coordinator Transplant, R.N. Lung Coordinator N/A N /A N/A Events Pre-Transplant Referred: 03/27/2023
--- OUTSIDE RECORDS SUMMARY | 2023-06-27 05:01 | XMS_ITS | Clinical Summary ---
Author Name Unknown Organization [facility] Address [place], [place] [address] Care Team Providers Care Ballet Professor Name Role Phone Paolo Limon MD Unavailable Talon Durham MD Unavailable [phone] Laura Gardner PsyD, Unavailable [phone] Geronimo Lamb MD Primary Care Provider Allergies [...] Dispensed Refills Start Date End Date Status [facility], medication corporate event planner with alarm 1 unit 0 04/22/2014 [...] complete/Re gimen complete/Le salud of care change) Active Problems Problem Noted Date Diagnosed Date [...] Anxiety and depression Dizziness Overview: Eval by [facility] neurology 2018. Thought to be [...] Department Care Team Description 06/10/2023 2:05 PM PANEL SEWER Office Visit [facility] [address] [place] [address] Geronimo Lamb MD Ear Problem (Left ear pain, started about a week ago); Dizziness (Spinning and non-spinning, started about a month ago); Headache (Off and on started about 6 weeks ago) 06/10/2023 Travel 06/08/2023 Orders Only [facility] Scanner 1 scan: (1-Ord) [facility], XR CHEST 2V, 06/08/2023 05/27/2023 3:00 PM PANEL SEWER Office Visit [facility] [place] [facility] [address] [place] [address] Dread Villavicencio MD Follow Up (Seizure ); Dizziness (2 weeks) 05/27/2023 Travel 05/15/2023 1:40 PM PANEL SEWER Office Visit [facility] [address] [place] [address] Geronimo Lamb MD Shortness Of Breath; Throat Problem 05/15/2023 Travel 05/15/2023 Telephone [facility] [address] [facility] [address] Geronimo Lamb MD Lab 05/10/2023 Orders Only [facility] Scanner 1 scan: (1-Ord) [facility], XR CERVICAL SPINE 2-3V, 05/10/2023 04/30/2023 10:00 AM PANEL SEWER [place]medicine [facility] [address] [place] [address] Telehealth; Medical Nutrition Therapy 04/24/2023 Refill [facility] [address] [place] [address] Geronimo Lamb MD Refill Request (Bupropion, Levetiracetam, Albuterol Hfa) 04/18/2023 Patient Outreach [facility] Care Management - Advanced Care Team [address] [place], [place] [id number] Temitope Douglas, [facility] Population Health (Social work community resource navigation. /) 04/14/2023 Telephone [facility] [address] [place] [address] Geronimo Lamb MD Questions (pulmonary rehab questions ) 04/10/2023 10:35 AM PANEL SEWER Office Visit [facility] [address] [place] [address] Geronimo Lamb MD Follow Up 04/10/2023 Travel 04/09/2023 8:30 AM PANEL SEWER Telemedicine [facility] [address] [place] [address] Telehealth; Medical Nutrition Therapy 04/02/2023 Refill [facility] [address] [place] [address] Gernoimo Lamb MD Refill Request (Myrbetriq) 04/02/2023 Refill [facility] [address] [place] [address] Geronimo Lamb MD Refill Request (Solifenacin) from Last 3 Months Immunizations Name Administration Dates Next Due COVID-19 Vaccine Spikevax (M oderna 50mcg/0.5mL) 12YO+ 9612-7737 Formula PF 03/19/2023 COVID-19 vaccine (Pfizer-Bio NTech [...] Comments Blood Pressure 138/85 06/10/2023 2:35 PM PANEL SEWER Pulse 103 06/10/2023 2:16 PM PANEL SEWER Temperature 36.7 ??C (98.1 ??F) 05/15/2023 1:42 PM CS T Respiratory Rate 90 06/10/2023 2:35 PM PANEL SEWER Oxygen Saturation 95% 06/10/2023 2:16 PM PANEL SEWER Inhaled Oxygen Concentration - - Weight 108.9 kg (240 lb) 06/10/2023 2:16 PM PANEL SEWER Height 142.2 cm (4' 8) 02/10/2023 3:17 PM CDT Body Mass Index 53.81 02/10/2023 3:17 PM CDT Plan of Treatment Upcoming Encounters Date Type Department Care Team (Late st Contact Info) Description 07/10/2023 3:20 PM PANEL SEWER Office Visit [facility] [address] [place] [address] Geronimo Lamb MD [address] [place] [address] 07/17/2023 2:30 PM PANEL SEWER Office Visit [address] [phone] Carley, Heather Vaughan, AuD [address] [place], [place] [phone] 07/17/2023 3:00 PM PANEL SEWER Office Visit [address] [phone] Jasmyne Amaya MD [address] [facility] [address] [place] [address] 07/24/2023 3:00 PM PANEL SEWER Office Visit [facility] [address] [place] [address] Paolo Limon MD [address] [place] [address] Health Maintenance Due Date Last Done Comments [...] Procedure Name Priority Date/Time Associated Diagnosis Comments TSH WITH REFLEX Routine 06/10/2023 3:22 PM PANEL SEWER Hypothyroidism (acquired) SCAN-RADIOLOGY REPORT 06/08/2023 12:00 AM PANEL SEWER COVID-19 MOLECULAR Routine 05/15/2023 2: 00 PM PANEL SEWER Flu-like symptoms INFLUENZA A/B PCR Routine 05/15/2023 2:0 0 PM PANEL SEWER Flu-like symptoms SCAN-RADIOLOGY REPORT 05/10/2023 12:00 AM PANEL SEWER from Last 3 Months Results * TSH WITH REFLEX (06/10/2023 3:22 PM PANEL SEWER) TSH 0.46 0.27 - 4.20 uIU/mL 06/11/2023 3:56 PM PANEL SEWER [facility] Blood BLOOD SPECIMEN / Unknown Butterfly / Unknown 06/10/2023 3:22 PM PANEL SEWER 06/10/2023 3:25 PM PANEL SEWER Narrative [facility] - 06/11/2023 3:56 PM PANEL SEWER In Adults, TSH values between 5.00 and 10.00 uIU/ml do not necessarily indicate the presence of Hypothyroidism. Correlation with clinical findings such as presence of goiter and/or Thyroperoxidase (TPO) Antibody may be helpful. For more information please refer to SIVAN 2004; 291: 228-238. Geronimo Lamb MD CHEMISTRY [facility] [address] [place] [address], * SCAN-RADIOLOGY REPORT (06/08/2023 12:00 AM PANEL SEWER) Only the most recent of2 resultswithin the time period is included. Anatomical Region Laterality Modality Other Scanner OTHER * COVID-19 MOLECULAR (05/15/2023 2:00 PM PANEL SEWER) COVID 19 [facility] MOLECULAR Negative Negative 05/16/2023 1:22 AM PANEL SEWER [facility] TESTING LABORATORY [facility] 05/16/2023 1:22 AM PANEL SEWER [facility] Comment:Specimen submitted t o [facility] for testing. Other SPECIMEN FROM NASAL FOSSAE / Unknown Non-Blood / Unknown 05/15/2023 2:00 PM PANEL SEWER 05/15/2023 2:14 PM PANEL SEWER Narrative [facility] - 05/16/2023 1:22 AM PANEL SEWER All PCR tests are subject to false [...] Geronimo Lamb MD MICROBIOLOGY Performing Organization Address [facility] Co de Phone Number [facility] [address] [address], * INFLUENZA A/B PCR (05/15/2023 2:00 PM PANEL SEWER) INFLUENZA A PCR Negative 05/16/2023 1:22 AM PANEL SEWER [facility] INFLUENZA B PCR Negative 05/16/2023 1:22 AM PANEL SEWER [facility] TR[facility] Other SPECIMEN FROM NASAL FOSSAE / Unknown Non-Blood / Unknown 05/15/2023 2:00 PM PANEL SEWER 05/15/2023 2:14 PM PANEL SEWER Geronimo Lamb MD MICROBIOLOGY Performing Organization Address [facility] Co de Phone Number [facility] [address] [address], from Last 3 Months Care Teams Ballet Professor Relationship Specialty Start Date End Date Geronimo Lamb MD [address] [facility] [place] [address] PCP - General Family Practice 04/23/21 Paolo Limon MD Sleep Medicine 10/28/11 Talon Durham MD Neurology Neurology 11/26/11 Laura Gardner PsyD, [facility] Psychology 09/14/13
--- NOTE | 2023-06-27 05:03 | PC.NURSE ---
ambulated patient with walker and gait belt. patient tolerated well, denies pain, denies SOB while ambulating. MD aware of results
--- NOTE | 2023-06-27 05:36 | ED.GENADULT ---
HPI - General Adult General Date Seen: 06/27/23 Chief complaint: Dental/Oral/Mouth Injury/Pain Stated complaint: Dental Pain Time Seen by Provider: 06/27/23 04:36 Source: patient Mode of arrival: EMS Limitations: no limitations History of Present Illness HPI narrative: Patient is a 47-year-old female who comes in by EMS at about 4:00 a.m. with complaints of dental pain. She had an extraction done three days ago and has been eating and drinking normally. She takes naproxen for pain. She is finishing a course of amoxicillin. When I enter to interview her she does not mention tooth pain at all but says that she felt off balance when she was walking at home. She has not fallen. She does not have vertigo. She had extensive lab work done in the ER two weeks ago. She is on chronic oxygen and she does have a walker at home. She denies weakness in her legs but just says that she feels different and was worried because she lives alone. She does have a history of frequent ER visits and does have a deoiling machine operator who helps manage some of her somatic complaints. Related Data Home Medications Medication Instructions Recorded Confirmed albuterol sulfate 90 mcg/actuation 2 puff inhalation Q4H PRN 11/30/21 05/10/23 aerosol inhaler mirabegron 50 mg tablet,extended 50 mg PO DAILY 11/30/21 05/10/23 release 24 hr (Myrbetriq) montelukast 10 mg tablet 10 mg PO HS 11/30/21 01/30/23 omeprazole 20 mg capsule,delayed 40 mg PO DAILY 02/26/22 05/10/23 release levetiracetam 750 mg tablet 750 mg PO BID 11/25/22 05/10/23 (Keppra) solifenacin 10 mg tablet 10 mg PO DAILY 11/25/22 05/10/23 cholecalciferol (vitamin D3) 50 50 mcg PO DAILY 01/30/23 05/10/23 mcg (2,000 unit) capsule levothyroxine 125 mcg tablet 125 mcg PO QAM 01/30/23 05/10/23 paroxetine HCl 40 mg tablet 40 mg PO DAILY 01/30/23 05/10/23 terbinafine HCl 1 % topical cream applic topical BID 02/01/23 Previous Rx's Medication Instructions Recorded albuterol sulfate 2.5 mg/3 mL 2.5 mg (3 mL) inhalation Q8H PRN 02/02/23 (0.083 %) solution for nebulization #1 mL budesonide-formoterol HFA 160 2 puff inhalation BID #1 g 02/02/23 mcg-4.5 mcg/actuation aerosol inhaler (Symbicort) furosemide 40 mg tablet 40 mg PO DAILY #30 tabs 02/02/23 ipratropium 0.5 mg-albuterol 3 mg 3 ml inhalation Q6-8H PRN #90 mL 02/02/23 (2.5 mg base)/3 mL nebulization soln potassium chloride 10 mEq 20 meq (2 x 10 mEq) PO DAILY #60 02/02/23 capsule,extended release caps prednisone 20 mg tablet 40 mg (2 x 20 mg) PO DAILYWM #2 02/02/23 tabs tiotropium bromide 2.5 2 puff inhalation DAILY #1 g 02/02/23 mcg/actuation mist for inhalation (Spiriva Respimat) furosemide 40 mg tablet 40 mg PO DAILY #33 tabs 03/06/23 potassium chloride 20 mEq 20 meq PO DAILY #33 tabs 03/06/23 tablet,extended release Allergies Allergy/AdvReac Type Severity Reaction Status Date / Time azithromycin Allergy Intermediate Bloody Verified 05/10/23 20:01 Stools latex Allergy Intermediate Rash Verified 05/10/23 20:01 oxycodone Allergy Intermediate Agitated Verified 05/10/23 20:01 scopolamine Allergy Intermediate Tremors Verified 05/10/23 20:01 basil Allergy Rash Verified 05/10/23 20:01 acetaminophen [From Percocet] AdvReac Confusion Verified 05/10/23 20:01 Review of Systems Narrative: Review of systems is widely positive without any new findings other than what is mentioned above in the HPI. I am familiar with Paloma as I was her PCP for a couple of years. 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 - Unspecified convulsions (ICD-10) RODRICK (obstructive sleep apnea) ?G47.33 - Obstructive sleep apnea (adult) (pediatric) (ICD-10) ADHD ?F90.9 - Attention-deficit hyperactivity disorder, unspecified type (ICD-10) Hyperthyroidism ?E05.90 - Thyrotoxicosis, unspecified without thyrotoxic crisis or storm (ICD-10) Hydrocephalus ?G91.9 - Hydrocephalus, unspecified (ICD-10) Hyperlipidemia ?E78.5 - Hyperlipidemia, unspecified (ICD-10) Anxiety and depression ?F41.9 - Anxiety disorder, unspecified (ICD-10) ?F32.A - Depression, unspecified (ICD-10) Asthma ?J45.909 - Unspecified asthma, uncomplicated (ICD-10) Surgical History History of ear surgery ?Z98.890 - Other specified postprocedural states (ICD-10) History of strabismus surgery ?Z98.890 - Other specified postprocedural states (ICD-10) Social History Narrative: on disability since 2009; lives alone with her cat. nonsmoker, no drugs, no significant tobacco history adopted, her two adopted aunts are her family contacts. What is your current living situation?: I presently have a place to live Problems where you live: no known problems Problems where you live details: None In the past 12 months, utilities in danger of being shut off: no In past 12 months, lack of transportation kept you from medical appts, meetings, work, or getting things needed for daily living: no In the past 12 mos, have been you worried that your food would run out before you had money to buy more?: never true In the past 12 mos, the food you bought just didn't last and you didn't have money to buy more?: never true Highest level of school completed/degree received: Associate degree: academic program Smoking Status: Never smoker Do you use any of these nicotine containing products: None Second hand tobacco smoke exposure: No How often do you have a drink containing alcohol: never How often do you have six or more drinks on one occasion: Never AUDIT-C Alcohol total score: 0 Non-prescribed substance use: denies use Caffeine: Yes (Pop ocassionally) How often does anyone, including family, friends and others, physically hurt you: never How often does anyone, including family, friends and others, insult or talk down to you: never How often does anyone, including family, friends and others, threaten you with harm: never How often does anyone, including family, friends and others, scream or curse at you: never service: No Exam Narrative: Exam Narrative: Vitals noted. She is sleeping as I entered the exam room. She awakens easily and is not somnolent. HEENT: Conjunctiva clear. Tympanic membranes are pearly white bilaterally. Posterior pharynx is clear without erythema or exudate. Her recent dental extraction of a lower left molar has healed nicely. No tenderness in the area. Neck is supple without adenopathy, thyromegaly, carotid bruit. Lungs: Greatly diminished without wheezes, rales, rhonchi. Heart: Distant but Regular rate and rhythm without murmur. Abdomen: Obese, Soft and nontender. No guarding, rigidity, rebound. Bowel sounds are normal. No palpable masses. Extremities: No cyanosis or edema. Good distal pulses. Skin: No abnormalities noted of the exposed skin. Neurologic: Awake, alert, fully oriented. Neurologic exam is nonfocal. I took her for a walk around the department with use of a walker and she was steady on her feet. She does feel like she has to concentrate on her walking but again demonstrated no weakness or imbalance. Const: Vital Signs, click to edit/add: Vital Signs - 24 hr 06/27/23 04:22 Temperature 97.6 F Pulse Rate [Pulse Oximeter] 103 H Respiratory Rate 16 Blood Pressure [Ri ght Upper Arm] 126/83 Pulse Oximetry 91 Oxygen Delivery Me thod Nasal Cannula Oxygen Flow Rate 1 Course Course ED Course: Patient was seen and examined. No evidence of dental pain or infection. No evidence of difficulty with ambulation or balance. I told her that I felt that what she noticed when she got up earlier was likely just some transient imbalance associated with her chronic hypoxia and waking. She does feel that this extraction has been stressful for her and I acknowledged that that may be contributing. I see no neurologic issue that warrants further workup. She is comfortable returning home and waiting to see if this feeling passes. Vital Signs Vital signs: Initial Vital Signs Temperature 97.6 F 06/27/23 04:22 Temperature Source Temporal Artery Scan 06/27/23 04:22 Pulse Rate 103 H 06/27/23 04:22 Respiratory Rate 16 06/27/23 04:22 Blood Pressure 126/83 06/27/23 04:22 Blood Pressure Mean 97 06/27/23 04:22 Blood Pressure Position Sitting 06/27/23 04:22 Pulse Oximetry 91 06/27/23 04:22 Oxygen Delivery Method Nasal Cannula 06/27/23 04:22 Oxygen Flow Rate 1 06/27/23 04:22 Vital Signs Temperature 97.6 F 06/27/23 04:22 Pulse Rate 103 H 06/27/23 04:22 Respiratory Rate 16 06/27/23 04:22 Blood Pressure 126/83 06/27/23 04:22 Pulse Oximetry 91 06/27/23 04:22 Oxygen Delivery Method Nasal Cannula 06/27/23 04:22 Oxygen Flow Rate 1 06/27/23 04:22 Temperature 97.6 F 06/27/23 04:22 Pulse Rate 103 H 06/27/23 04:22 Respiratory Rate 16 06/27/23 04:22 Blood Pressure 126/83 06/27/23 04:22 Pulse Oximetry 91 06/27/23 04:22 Oxygen Delivery Method Nasal Cannula 06/27/23 04:22 Oxygen Flow Rate 1 06/27/23 04:22 Discharge Plan Discharge Clinical Impression: Balance problem Patient Disposition: Home, Self-Care Condition: Stable Additional Instructions: Continue all of your current meds. Make sure you are drinking lots of water. Take Naproxen regularly for pain. Finish your antibiotics. Use your walker at all times. If the difficulty with walking doesn't resolve over the next few days please see your clinic doctor. Prescriptions: No Action levetiracetam [Keppra] 750 mg tablet 750 mg PO BID solifenacin 10 mg tablet 10 mg PO DAILY furosemide 40 mg tablet 40 mg PO DAILY Qty: 33 0RF Rx Instructions: Take one table twice a day for three days starting 03/07/2023, then once a day after that potassium chloride 20 mEq tablet extended release 20 meq PO DAILY Qty: 33 0RF Rx Instructions: Take one tablet twice a day for three days starting 03/07/2023, then once a day after that montelukast 10 mg tablet 10 mg PO HS Myrbetriq 50 mg tablet extended release 24 hr 50 mg PO DAILY Patient Comments: albuterol sulfate 90 mcg/actuation HFA aerosol inhaler 2 puff INHALATION Q4H PRN levothyroxine 125 mcg tablet 125 mcg PO QAM cholecalciferol (vitamin D3) 50 mcg (2,000 unit) capsule 50 mcg PO DAILY paroxetine HCl 40 mg tablet 40 mg PO DAILY Patient Comments: terbinafine HCl 1 % cream topical BID furosemide 40 mg Tablet 40 mg PO DAILY Qty: 30 0RF prednisone 20 mg Tablet 40 mg PO DAILYWM Qty: 2 0RF potassium chloride 10 mEq capsule, extended release 20 meq PO DAILY Qty: 60 2RF albuterol sulfate 2.5 mg /3 mL (0.083 %) solution for nebulization 2.5 mg inhalation Q8H PRNQty: 1 0RF budesonide-formoterol [Symbicort] 160-4.5 mcg/actuation HFA aerosol inhaler 2 puff INHALATION BID Qty: 1 0RF Spiriva Respimat 2.5 mcg/actuation mist 2 puff inhalation DAILY Qty: 1 0RF ipratropium-albuterol 0.5 mg-3 mg(2.5 mg base)/3 mL solution for nebulization 3 ml inhalation Q6-8H PRNQty: 90 0RF omeprazole 20 mg capsule,delayed release(DR/EC) 40 mg PO DAILY Follow Up/Referrals: Geronimo Lamb MD [Primary Care Provider] - Stand Alone Forms: [facility] Info Instructions
--- NOTE | 2023-06-27 06:04 | PC.NURSE ---
patient transported via EMS to home, w/c transport charges gone over with patient and patient signed form, DC instructions reviewed with patient. no further question. all belongings sent with patient
== END 2023-06-27 06:06 | disposition home or self-care (01) ==
PROVIDERS: Emergency Provider Family Medicine; PCP Family Medicine
DX: R26.81 Unsteadiness on feet (principal)
CPT/HCPCS: 99282; 99283

== ENCOUNTER 2023-06-27 06:06 | Outpatient (CLI) | payer MEDICAID, SELFPAY ==
--- OUTSIDE RECORDS SUMMARY | 2023-06-28 06:25 | XMS_ITS | Encounter Summary ---
Author Name Unknown Organization [facility] Address [address] [place] [address] Care Team Providers Care Rail Loader Name Role Phone Elsewhere, Pcp Primary Care Provider Unavailabl e Encounter Details Date Type Department Care Team (Late st Contact Info) Description 01/13/2023 Episode Changes Department of Ophthalmology in [place], [place] [address] [place] [address] Jaquelin Gracia Social History Tobacco Use Types [...] Sex Assigned at Female 06/02/2018 2:11 PM HEATING AND REFRIGERATION INSPECTOR Gender Identity Female 06/02/2018 2:11 PM HEATING AND REFRIGERATION INSPECTOR Sexual Orientation Choose not to disclose 2018 2:11 PM HEATING AND REFRIGERATION INSPECTOR documented as of this encounter Plan of Treatment Not on file documented as of this encounter Visit Diagnoses Not on filedocumented in this encounter Additional Health Concerns Assessment Noted Time PHQ-9 Depression Total Score: 14 019 3:26 PM CDT documented as of this encounter Care Teams Rail Loader Relationship Specialty Start Date End Date Elsewhere, Pcp PCP - General Internal Medicine 12/04/18 documented as of this encounter
--- OUTSIDE RECORDS SUMMARY | 2023-06-28 06:25 | XMS_ITS | Encounter Summary ---
Author Name Unknown Organization [facility] Address [address] [place] [address] Care Team Providers Care X Ray Service Engineer Name Role Phone Elsewhere, Pcp Primary Care Provider Unavailabl e Reason for Visit * Reason Comments Cataract * Appointment Request (Routine) - Closed Specialty Diagnoses / Procedures Referred By Contsanju t Referred To Contact Ophthalmology Diagnoses Cataract Senile Cortical Roxanne De León M.D. [address] [place] [address] Referral ID Status Reason Start Date Expiration Date Visits Re quested Visits Authorized [id number] Closed 06/07/2022 06/07/2023 1 1 Encounter Details Date Type Department Care Team (Latest Contact Info) Description 01/13/2023 2:00 PM CDT Comprehensive Visit Department of Ophthalmology in [place], [place] [address] [place] [address] Emerson Delvalle M.D. [address] [place] [address] Keratoconus Bilateral (Primary Dx); Astigmatism Irregular Bilateral; [...] Sex Assigned at Female 06/02/2018 2:11 PM EMBEDDED FIRMWARE ENGINEER Gender Identity Female 06/02/2018 2:11 PM EMBEDDED FIRMWARE ENGINEER Sexual Orientation Choose not to disclose 2018 2:11 PM EMBEDDED FIRMWARE ENGINEER documented as of this encounter Progress Notes [...] documented as of this encounter Care Teams X Ray Service Engineer Relationship Specialty Start Date End Date Elsewhere, Pcp PCP - General Internal Medicine 12/04/18 documented as of this encounter
--- OUTSIDE RECORDS SUMMARY | 2023-06-28 06:25 | XMS_ITS | Encounter Summary ---
Author Name Unknown Organization [facility] Address [address] [place] [address] Care Team Providers Care Physical Meteorologist Name Role Phone Elsewhere, Pcp Primary Care Provider Unavailabl e Encounter Details Date Type Department Care Team (Latest Contact Info) Description 01/13/2023 1:00 PM CDT Ancillary Procedure Department of Ophthalmology in [place], [place] [address] [place] [address] Emerson Delvalle M.D. [address] [place] [address] Age Related Nuclear Cataract Bilateral Social History [...] Sex Assigned at Female 06/02/2018 2:11 PM UNDERWATER TRAPPER Gender Identity Female 06/02/2018 2:11 PM UNDERWATER TRAPPER Sexual Orientation Choose not to disclose 2018 2:11 PM UNDERWATER TRAPPER documented as of this encounter Plan of [...] documented as of this encounter Care Teams Physical Meteorologist Relationship Specialty Start Date End Date Elsewhere, Pcp PCP - General Internal Medicine 12/04/18 documented as of this encounter
--- OUTSIDE RECORDS SUMMARY | 2023-06-28 06:25 | XMS_ITS | Encounter Summary ---
Author Name Unknown Organization [facility] Address [address] [place] [address] Care Team Providers Care Employment Case Manager Name Role Phone Elsewhere, Pcp Primary Care Provider Unavailabl e Reason for Visit * Reason Onset Date Comments Treatment Questions 05/21/2023 Encounter Details Date Type Department Care Team (Latest Contact Info) Description 05/21/2023 Clinical Communication Julio [facility] in [place], [place] [address] [place] [address] Violetta Mitchell R.N. [address] [place] [phone] Treatment Questions Social History Tobacco Use Types [...] Sex Assigned at Female 06/02/2018 2:11 PM TRESTLEMAN Gender Identity Female 06/02/2018 2:11 PM TRESTLEMAN Sexual Orientation Choose not to disclose 2018 2:11 PM TRESTLEMAN documented as of this encounter Plan of Treatment Not on file documented as of this encounter Visit Diagnoses Not on filedocumented in this encounter Additional Health Concerns Assessment Noted Time PHQ-9 Depression Total Score: 14 10/27/ 019 3:26 PM CDT documented as of this encounter Care Teams Employment Case Manager Relationship Specialty Start Date End Date Elsewhere, Pcp PCP - General Internal Medicine 12/04/18 documented as of this encounter
--- OUTSIDE RECORDS SUMMARY | 2023-06-28 06:25 | XMS_ITS | Referral Summary ---
Author Name Unknown Organization [facility] Address [address] [place] [address] Care Team Providers Care Movie Shot Cameraman Name Role Phone Elsewhere, Pcp Primary Care Provider Unavailabl e Source Comments Patient records contain information from all sites at [facility]. For routine questions regarding patient records, call [phone] during business hours, M-F 8:00 AM - 5:00 PM Central Time. Record requests for emergency care only can be directed to [phone] at any time.[facility] Encounters Date Type Department Care Team Description 05/21/2023 Clinical Communication Julio C [facility] in [place], [place] [address] [place] [address] Violetta Mitchell R.N. Treatment Questions from Last [...] Sex Assigned at Female 06/02/2018 2:11 PM PROFESSIONAL PROGRAMMER ANALYST Gender Identity Female 06/02/2018 2:11 PM PROFESSIONAL PROGRAMMER ANALYST Sexual Orientation Choose not to disclose 2018 2:11 PM PROFESSIONAL PROGRAMMER ANALYST Last Filed Vital Signs Vital Sign Reading [...] on file Medical Devices Implanted Type Area Wash Oil Pump Operator Device Identifier Shelf Expiration Date Model / Serial / Lot Ear Implant- [id number] Implanted:11/24 (Quantity not on file) Ear Implant Ear Olympus Bernice Vega TORP Plasti-pore [id number] / / [id number] Description:[facility], [place], [place]. Ear implant-Vega TOPR Plasti-pore MRI Safe Care Teams Movie Shot Cameraman Relationship Specialty Start Date End Date Elsewhere, Pcp PCP - General Internal Medicine 12/04/18
--- OUTSIDE RECORDS SUMMARY | 2023-06-28 06:25 | XMS_ITS ---
Author Name Unknown Organization [facility] Address [address] [place] [address] Care Team Providers Care Analysis Intern Name Role Phone Unavailable Unavailable Unavailable Surgery Details Not on file Complications Check Surgery Details section. Procedure Estimated Blood Loss Check Surgery Details section. Procedure Findings Check Surgery Details section. Procedure Specimens Taken Check Surgery Details section.
--- OUTSIDE RECORDS SUMMARY | 2023-06-28 06:25 | XMS_ITS | Clinical Summary ---
Author Name Unknown Organization [facility] Address [address] [place] [address] Care Team Providers Care Export Sales Assistant Name Role Phone Elsewhere, Pcp Primary Care Provider Unavailabl e Source Comments Patient records contain information from all sites at [facility]. For routine questions regarding patient records, call [phone] during business hours, M-F 8:00 AM - 5:00 PM Central Time. Record requests for emergency care only can be directed to [phone] at any time.[facility] Allergies Active Allergy Reactions Criticality Noted Date [...] Team Description 05/21/2023 Clinical [facility] [place], [place] [address] [place] [address] Violetta Mitchell, RAlexusN. Treatment Questions from Last [...] Sex Assigned at Female 06/02/2018 2:11 PM BULB PACKER Gender Identity Female 06/02/2018 2:11 PM BULB PACKER Sexual Orientation Choose not to disclose 2018 2:11 PM BULB PACKER Last Filed Vital Signs Vital Sign Reading [...] this topic Medical Devices Implanted Type Area Senior Formulation Scientist Device Identifier Shelf Expiration Date Model / Serial / Lot Ear Implant- [id number] Implanted:11/24 (Quantity not on file) Ear Implant Ear Olympus Bernice Vega TORP Plasti-pore [id number] / / [id number] Description:[facility], [place], [place]. Ear implant-Vega TOPR Plasti-pore MRI Safe Care Teams Export Sales Assistant Relationship Specialty Start Date End Date Elsewhere, Pcp PCP - General Internal Medicine 12/04/18
--- OUTSIDE RECORDS SUMMARY | 2023-06-28 06:25 | XMS_ITS | Encounter Summary ---
Author Name Unknown Organization [facility] Address [address] [place] [address] Care Team Providers Care Crabber Name Role Phone Elsewhere, Pcp Primary Care [...] Sex Assigned at Female 06/02/2018 2:11 PM FIBERGLASS FINISHER Gender Identity Female 06/02/2018 2:11 PM FIBERGLASS FINISHER Sexual Orientation Choose not to disclose 2018 2:11 PM FIBERGLASS FINISHER documented as of this encounter Plan of [...] documented as of this encounter Care Teams Crabber Relationship Specialty Start Date End Date Elsewhere, Pcp PCP - General Internal Medicine 12/04/18 documented as of this encounter
--- OUTSIDE RECORDS SUMMARY | 2023-06-28 06:26 | XMS_ITS | Encounter Summary ---
Author Name Unknown Organization [facility] Address [address] [place] [address] Care Team Providers Care Lotteries Agent Name Role Phone Elsewhere, Pcp Primary Care Provider Unavailabl e Reason for Visit * Reason Onset Date Comments Appointment 10/07/2022 Encounter Details Date Type Department Care Team (Latest Contact Info) Description 10/07/2022 Clinical Communication Department of Ophthalmology in [place], [place] [address] [place] [address] Provider, Unknown Appointment Social History Tobacco Use [...] Sex Assigned at Female 06/02/2018 2:11 PM FENCE SUPERVISOR Gender Identity Female 06/02/2018 2:11 PM FENCE SUPERVISOR Sexual Orientation Choose not to disclose 2018 2:11 PM FENCE SUPERVISOR documented as of this encounter Plan of Treatment Not on file documented as of this encounter Visit Diagnoses Not on filedocumented in this encounter Additional Health Concerns Assessment Noted Time PHQ-9 Depression Total Score: 14 019 3:26 PM CDT documented as of this encounter Care Teams Lotteries Agent Relationship Specialty Start Date End Date Elsewhere, Pcp PCP - General Internal Medicine 12/04/18 documented as of this encounter
--- OUTSIDE RECORDS SUMMARY | 2023-06-28 06:26 | XMS_ITS | Clinical Summary ---
Author Name Unknown Organization [facility] Address [place], [place] [address] Care Team Providers Care Assistant Prosecuting Attorney Name Role Phone Paolo Limon MD Unavailable Talon Durham MD Unavailable [phone] Laura Gardner PsyD, Unavailable [phone] Geronimo Lamb MD Primary Care Provider Allergies [...] Dispensed Refills Start Date End Date Status [facility], medication environmental restoration planner with alarm 1 unit 0 04/22/2014 [...] Anxiety and depression Dizziness Overview: Eval by [facility] neurology 2018. Thought to be functional. [...] Department Care Team Description 06/10/2023 2:05 PM [employer] DIRECT[employer] Office Visit [facility] [address] [place] [address] Geronimo Lamb MD Ear Problem (Left ear pain, started about a week ago); Dizziness (Spinning and non-spinning, started about a month ago); Headache (Off and on started about 6 weeks ago) 06/10/2023 Travel 06/08/2023 Orders Only [facility] Scanner 1 scan: (1-Ord) [facility], XR CHEST 2V, 06/08/2023 05/27/2023 3:00 PM [employer] NURSING DIRECTOR Office Visit [facility] [place] [facility] [address] [place] [address] Dread Villavicencio MD Follow Up (Seizure ); Dizziness (2 weeks) 05/27/2023 Travel 05/15/2023 1:40 PM [employer] Office Visit [facility] [address] [facility] [place] [address] Geronimo Lamb MD Shortness Of Breath; Throat Problem 05/15/2023 Travel 05/15/2023 Telephone [facility] [address] [place] [facility] [place] [address] Geronimo Lamb MD Lab 05/10/2023 Orders Only [facility] Scanner 1 scan: (1-Ord) [facility], XR CERVICAL SPINE 2-3V, 05/10/2023 04/30/2023 10:00 AM [employer] Telemedicine [facility] [address] [place] [address] Telehealth; Medical Nutrition Therapy 04/24/2023 Refill [facility] [address] [facility] [place] [address] Geronimo Lamb MD Refill Request (Bupropion, Levetiracetam, Albuterol Hfa) 04/18/2023 Patient Outreach [facility] Care Management - Advanced Care Team [address] [place], [place] [phone] [place], [facility] Population Health (Social work community resource navigation. /) 04/14/2023 Telephone [facility] [address] [facility] [place] [address] Geronimo Lamb MD Questions (pulmonary rehab questions ) 04/10/2023 10:35 AM [employer]URSING DIRECT[employer] Office Visit [facility] [address] [facility] [address] Geronimo Lamb MD Follow Up 04/10/2023 Travel 04/09/2023 8:30 AM [employer] Telemedicine [facility] [address] [place] [address] Telehealth; Medical Nutrition Therapy 04/02/2023 Refill [facility] [address] [place] [address] Geronimo Lamb MD Refill Request (Myrbetriq) 04/02/2023 Refill [facility] [address] [place] [address] Geronimo aLmb MD Refill Request (Solifenacin) from Last 3 Months Immunizations Name Administration Dates Next Due COVID-19 Vaccine Spikevax (M oderna 50mcg/0.5mL) 12YO+ 7141-4025 Formula PF 03/19/2023 COVID-19 vaccine (Pfizer-Bio NTech [...] Comments Blood Pressure 138/85 06/10/2023 2:35 PM [employer] Pulse 103 06/10/2023 2:16 PM [employer]SING DIRECT[employer] Temperature 36.7 ??C (98.1 ??F) 05/15/2023 1:42 PM CS T Respiratory Rate 90 06/10/2023 2:35 PM [employer]SING DIRECT[employer] Oxygen Saturation 95% 06/10/2023 2:16 PM [employer]SING [employer] Inhaled Oxygen Concentration - - Weight 108.9 kg (240 lb) 06/10/2023 2:16 PM [employer]UR[employer] DIRECT[employer] Height 142.2 cm (4' 8) 02/10/2023 3:17 PM CDT Body Mass Index 53.81 02/10/2023 3:17 PM CDT Plan of Treatment Upcoming Encounters Date Type Department Care Team (Late st Contact Info) Description 07/10/2023 3:20 PM [employer] N[employer]SING DIRECT[employer] Office Visit [facility] [address] [place] [address] Geronimo Lamb MD [address] [place] [address] 07/17/2023 2:30 PM [employer] NURSING DIRECTOR Office Visit [address] [phone] Carley, Heather Vaughan, AuD [address] [place], [place] [phone] 07/17/2023 3:00 PM [employer]SING DIRECT[employer] Office Visit [address] [phone] Jasmyne Amaya MD [address] [facility] [address] [place] [address] 07/24/2023 3:00 PM [employer]URSING DIRECT[employer] Office Visit [facility] [address] [place] [address] Paolo Limon MD [address] [place] [address] Health Maintenance Due Date Last Done Comments [...] TSH WITH REFLEX Routine 06/10/2023 3:22 PM [employer] NURSING DIRECTOR Hypothyroidism (acquired) SCAN-RADIOLOGY REPORT 06/08/2023 12:00 AM [employer]URSING DIRECT[employer] COVID-19 MOLECULAR Routine 05/15/2023 2: 00 PM [employer] NURSING DIRECTOR Flu-like symptoms INFLUENZA A/B PCR Routine 05/15/2023 2:0 0 PM [employer] NURSING DIRECTOR Flu-like symptoms SCAN-RADIOLOGY REPORT 05/10/2023 12:00 AM [employer] OF NURSING DIRECTOR from Last 3 Months Results * TSH WITH REFLEX (06/10/2023 3:22 PM [employer] OF NURSING DIRECTOR) TSH 0.46 0.27 - 4.20 uIU/mL 06/11/2023 3:56 PM S[employer] OF NURSING DIRECTOR [facility] Blood BLOOD SPECIMEN / Unknown Butterfly / Unknown 06/10/2023 3:22 PM [employer] OF NURSING DIRECTOR 06/10/2023 3:25 PM [employer] OF NURSING DIRECTOR Narrative [facility] - 06/11/2023 3:56 PM SCHO[employer] OF NURSING DIRECTOR In Adults, TSH values between 5.00 and 10.00 uIU/ml do not necessarily indicate the presence of Hypothyroidism. Correlation with clinical findings such as presence of goiter and/or Thyroperoxidase (TPO) Antibody may be helpful. For more information please refer to SIVAN 2004; 291: 228-238. Geronimo Lamb MD CHEMISTRY [facility] [address] [place] [address], * SCAN-RADIOLOGY REPORT (06/08/2023 12:00 AM [employer] OF NURSING DIRECTOR) Only the most recent of2 resultswithin the time period is included. Anatomical Region Laterality Modality Other Scanner OTHER * COVID-19 MOLECULAR (05/15/2023 2:00 PM [employer] OF NURSING DIRECTOR) COVID 19 [facility] MOLECULAR Negative Negative 05/16/2023 1:22 AM [employer] OF NURSING DIRECTOR [facility]- [facility] TESTING LABORATORY [facility] 05/16/2023 1:22 AM S[employer] OF NURSING DIRECTOR [facility] Comment:Specimen submitted t o [facility] for testing. Other SPECIMEN FROM NASAL FOSSAE / Unknown Non-Blood / Unknown 05/15/2023 2:00 PM [employer] OF NURSING DIRECTOR 05/15/2023 2:14 PM [employer] NURSING DIRECTOR Narrative [facility] - 05/16/2023 1:22 AM [employer] OF NURSING DIRECTOR All PCR tests are subject to [...] the authorization is terminated or revoked sooner. Gernoimo Lamb MD MICROBIOLOGY Performing Organization Address [facility] Co de Phone Number [facility] [address] [address], * INFLUENZA A/B PCR (05/15/2023 2:00 PM [employer] OF NURSING DIRECTOR) INFLUENZA A PCR Negative 05/16/2023 1:22 AM [employer] OF NURSING DIRECTOR [facility] TRAL LABORATORY INFLUENZA B PCR Negative 05/16/2023 1:22 AM S[employer] OF NURSING DIRECTOR [facility] TRAL LABORATORY Other SPECIMEN FROM NASAL FOSSAE / Unknown Non-Blood / Unknown 05/15/2023 2:00 PM S[employer] OF NURSING DIRECTOR 05/15/2023 2:14 PM [employer] NURSING DIRECTOR Geronimo Lamb MD MICROBIOLOGY Performing Organization Address City/[facility] Co de Phone Number [facility] [address] [address], from Last 3 Months Care Teams Assistant Prosecuting Attorney Relationship Specialty Start Date End Date Geronimo Lamb MD [address] [place] [address] PCP - General Family Practice 04/23/21 Paolo Limon MD Sleep Medicine 10/28/11 Talon Durham MD Neurology Neurology 11/26/11 Laura Gardner PsyD, [facility] Psychology 09/14/13
--- OUTSIDE RECORDS SUMMARY | 2023-06-28 06:26 | XMS_ITS | Encounter Summary ---
Author Name Unknown Organization [facility] Address [address] [place] [address] Care Team Providers Care External Grinder Name Role Phone Elsewhere, Pcp Primary Care Provider Unavailabl e Encounter Details Date Type Department Care Team (Latest Contact Info) Description 01/13/2023 12:45 PM CDT Ancillary Procedure Department of Ophthalmology in [place], [place] [address] [place] [address] Emerson Delvalle M.D. [address] [place] [address] Age Related Nuclear Cataract Bilateral Social History [...] Sex Assigned at Female 06/02/2018 2:11 PM APPRENTICE ARCHITECT Gender Identity Female 06/02/2018 2:11 PM APPRENTICE ARCHITECT Sexual Orientation Choose not to disclose 2018 2:11 PM APPRENTICE ARCHITECT documented as of this encounter Plan of [...] documented as of this encounter Care Teams External Grinder Relationship Specialty Start Date End Date Elsewhere, Pcp PCP - General Internal Medicine 12/04/18 documented as of this encounter
--- OUTSIDE RECORDS SUMMARY | 2023-06-28 06:26 | XMS_ITS ---
Author Name Unknown Organization [facility] Address [address] [place] [address] Care Team Providers Care Front End Engineer Name Role Phone Elsewhere, Pcp Primary Care Provider Unavailabl e Transplant Episode Lung Candidate [facility] ([place], [place]) - [facility] Referred on 03/27/2023 Marked as Active on 03/27/2023 Lung CoordinatorCoordinator Transplant, R.N. Phone: N/A Fax: N/A Email: N/A Care Team Name Role Phone Fax Email Coordinator Transplant, R.N. Lung Coordinator N/A N /A N/A Events Pre-Transplant Referred: 03/27/2023
== END 2023-06-27 06:07 | disposition home or self-care (01) ==
LOC: AMB 06-28 06:23
PROVIDERS: PCP Family Medicine; Visit Provider Family Medicine
DX: Z99.3 Dependence on wheelchair (principal)
CPT/HCPCS: A0425; A0428

== ENCOUNTER 2023-07-17 23:41 | Outpatient (CLI) | payer MEDICAID, SELFPAY | END 2023-07-17 23:42 | disposition home or self-care (01) | LOC: AMB 07-30 11:43 | PROVIDERS: PCP Family Medicine; Visit Provider Family Medicine | DX: G40.909 Epilepsy, unspecified, not intractable, without status epilepticus (principal) | CPT/HCPCS: A0425; A0429 ==

== ENCOUNTER 2023-07-18 00:01 | Emergency (ER) | payer MEDICAID, SELFPAY ==
[2023-07-18 00:07] VITALS: BP 114/74; PULSE 90; RESP 24; TEMP 36.8; O2SAT 94
[2023-07-18 00:15] VITALS: BP 114/74; PULSE 83; RESP 18; TEMP 36.8; O2SAT 96; BMI 48.7
--- NOTE | 2023-07-18 00:23 | ED_ITS ---
HPI - General Adult General Chief complaint: Seizure Stated complaint: seizure Time Seen by Provider: 07/18/23 00:17 History of Present Illness HPI narrative: Pt states she was sitting in her chair at home tonight with her cat sitting on her chest ,'felt like I was going to have seizure, so I pushed the cat off my chest and ran to the bedroom. Pt states she had a seizure with full body shaking, and was going in and out of consciousness. Denies injury. Pt does have seizure history , takes Keppra. Denies injury, or recent illness. States she is in the process of moving into assisted living and has had a lot of increased stress trying to get into assisted living in [place]. Pt states she is currently really tired. 48-year-old woman presenting to the emergency department via EMS after apparently having a seizure this evening. 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 This evening was laying down on her couch and had her CT resting on top of her. Began to feel was best I can understand, pin pricks all over. She pushed a CT off got up and went to her bed got underneath the covers and then the symptoms faded and then she began shaking all over. She says 1 of her longer seizures. She was awake for it and believes it lasted 15 seconds or so. Increased stress lately with transitioning living situation. She has not had any dosing changes to medications. She is currently rather tired. Had just been seen at the ENT / interpretive program coordinator as she was worried that maybe she had a cholesteatoma that is contributing to her seizures and was noted to not have anything like that she says. Has not had any fevers. No cough or cold symptoms. No abdominal pain. She does admit that had a little dysuria today. Denies recent medication changes. She has had trouble contacting staff at the assisted living to where she has anticipating moving. She will have to request help to literally move for boxes and pack. She is feeling like this moved probably will not work out anymore. Related Data Home Medications Medication Instructions Recorded Confirmed albuterol sulfate 90 mcg/actuation 2 puff inhalation Q4H PRN 11/30/21 05/10/23 aerosol inhaler mirabegron 50 mg tablet,extended 50 mg PO DAILY 11/30/21 05/10/23 release 24 hr (Myrbetriq) montelukast 10 mg tablet 10 mg PO HS 11/30/21 01/30/23 omeprazole 20 mg capsule,delayed 40 mg PO DAILY 02/26/22 05/10/23 release levetiracetam 750 mg tablet 750 mg PO BID 11/25/22 05/10/23 (Keppra) solifenacin 10 mg tablet 10 mg PO DAILY 11/25/22 05/10/23 cholecalciferol (vitamin D3) 50 50 mcg PO DAILY 01/30/23 05/10/23 mcg (2,000 unit) capsule levothyroxine 125 mcg tablet 125 mcg PO QAM 01/30/23 05/10/23 paroxetine HCl 40 mg tablet 40 mg PO DAILY 01/30/23 05/10/23 terbinafine HCl 1 % topical cream applic topical BID 02/01/23 Previous Rx's Medication Instructions Recorded albuterol sulfate 2.5 mg/3 mL 2.5 mg (3 mL) inhalation Q8H PRN 02/02/23 (0.083 %) solution for nebulization #1 mL budesonide-formoterol HFA 160 2 puff inhalation BID #1 g 02/02/23 mcg-4.5 mcg/actuation aerosol inhaler (Symbicort) furosemide 40 mg tablet 40 mg PO DAILY #30 tabs 02/02/23 ipratropium 0.5 mg-albuterol 3 mg 3 ml inhalation Q6-8H PRN #90 mL 02/02/23 (2.5 mg base)/3 mL nebulization soln potassium chloride 10 mEq 20 meq (2 x 10 mEq) PO DAILY #60 02/02/23 capsule,extended release caps prednisone 20 mg tablet 40 mg (2 x 20 mg) PO DAILYWM #2 02/02/23 tabs tiotropium bromide 2.5 2 puff inhalation DAILY #1 g 02/02/23 mcg/actuation mist for inhalation (Spiriva Respimat) furosemide 40 mg tablet 40 mg PO DAILY #33 tabs 03/06/23 potassium chloride 20 mEq 20 meq PO DAILY #33 tabs 03/06/23 tablet,extended release Allergies Allergy/AdvReac Type Severity Reaction Status Date / Time azithromycin Allergy Intermediate Bloody Verified 05/10/23 20:01 Stools latex Allergy Intermediate Rash Verified 05/10/23 20:01 oxycodone Allergy Intermediate Agitated Verified 05/10/23 20:01 scopolamine Allergy Intermediate Tremors Verified 05/10/23 20:01 basil Allergy Rash Verified 05/10/23 20:01 acetaminophen [From Percocet] AdvReac Confusion Verified 05/10/23 20:01 Review of Systems Status of ROS: Reports: 6 or more systems reviewed and unremarkable except as noted in History and below [facility] Medical History Hypothyroidism ?E03.9 - Hypothyroidism, unspecified (ICD-10) Acute and chronic respiratory failure with hypoxia ?J96.21 - Acute and chronic respiratory failure with hypoxia (ICD-10) 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 - Unspecified convulsions (ICD-10) RODRICK (obstructive sleep apnea) ?G47.33 - Obstructive sleep apnea (adult) (pediatric) (ICD-10) ADHD ?F90.9 - Attention-deficit hyperactivity disorder, unspecified type (ICD-10) Hyperthyroidism ?E05.90 - Thyrotoxicosis, unspecified without thyrotoxic crisis or storm (ICD-10) Hydrocephalus ?G91.9 - Hydrocephalus, unspecified (ICD-10) Hyperlipidemia ?E78.5 - Hyperlipidemia, unspecified (ICD-10) Anxiety and depression ?F41.9 - Anxiety disorder, unspecified (ICD-10) ?F32.A - Depression, unspecified (ICD-10) Asthma ?J45.909 - Unspecified asthma, uncomplicated (ICD-10) Surgical History History of ear surgery ?Z98.890 - Other specified postprocedural states (ICD-10) History of strabismus surgery ?Z98.890 - Other specified postprocedural states (ICD-10) Social History Narrative: on disability since 2009; lives alone with her cat. nonsmoker, no drugs, no significant tobacco history adopted, her two adopted aunts are her family contacts. What is your current living situation?: I presently have a place to live Problems where you live: no known problems Problems where you live details: None In the past 12 months, utilities in danger of being shut off: no In past 12 months, lack of transportation kept you from medical appts, meetings, work, or getting things needed for daily living: no In the past 12 mos, have been you worried that your food would run out before you had money to buy more?: never true In the past 12 mos, the food you bought just didn't last and you didn't have money to buy more?: never true Highest level of school completed/degree received: Associate degree: academic program Smoking Status: Never smoker Do you use any of these nicotine containing products: None Second hand tobacco smoke exposure: No How often do you have a drink containing alcohol: never How often do you have six or more drinks on one occasion: Never AUDIT-C Alcohol total score: 0 Non-prescribed substance use: denies use Caffeine: Yes (Pop ocassionally) How often does anyone, including family, friends and others, physically hurt you : never How often does anyone, including family, friends and others, insult or talk down to you: never How often does anyone, including family, friends and others, threaten you with harm: never How often does anyone, including family, friends and others, scream or curse at you: never service: No Exam Narrative: Exam Narrative: Sleeping when I enter the room. Starts awake. Breathing easily. Actually oxygenating better than typically. Cranial nerves 2-12 look to be intact. Extraocular movements are full without nystagmus. Oropharynx is a little dry. I do not see any indication of injury. Pupils are 3 mm equal and briskly reactive. Lungs appear to be clear tonight. Heart in regular rate and rhythm abdomen is overweight soft nontender. Moving all extremities without difficulty. She is well-perfused. No lower extremity edema. Const: Vital Signs, click to edit/add: Vital Signs - 24 hr 07/18/23 00:07 07/18/23 00:15 Temperature 98.2 F 98.3 F Pulse Rate [Left P ulse Oximeter] 90 Pulse Rate [Pulse Oximeter] 83 Respiratory Rate 24 18 Blood Pressure [Ri ght Forearm] 114/74 114/74 Pulse Oximetry 94 96 Oxygen Delivery Me thod Nasal Cannula Room Air Oxygen Flow Rate 1 Documenting provider has reviewed patient's vital signs: yes Course Vital Signs Vital signs: Initial Vital Signs Temperature 98.2 F 07/18/23 00:07 Temperature Source Temporal Artery Scan 07/18/23 00:07 Pulse Rate 90 07/18/23 00:07 Pulse Rhythm Regular 07/18/23 00:07 Respiratory Rate 24 07/18/23 00:07 Blood Pressure 114/74 07/18/23 00:07 Blood Pressure Mean 87 07/18/23 00:07 Blood Pressure Position Semi-Fowlers 07/18/23 00:07 Pulse Oximetry 94 07/18/23 00:07 Oxygen Delivery Method Nasal Cannula 07/18/23 00:07 Oxygen Flow Rate 1 07/18/23 00:07 Vital Signs Temperature 98.2 F 07/18/23 00:07 Pulse Rate 90 07/18/23 00:07 Respiratory Rate 24 07/18/23 00:07 Blood Pressure 114/74 07/18/23 00:07 Pulse Oximetry 94 07/18/23 00:07 Oxygen Delivery Method Nasal Cannula 07/18/23 00:07 Oxygen Flow Rate 1 07/18/23 00:07 Temperature 98.0 F 07/18/23 02:15 Pulse Rate 76 07/18/23 02:15 Respiratory Rate 18 07/18/23 02:15 Blood Pressure 126/83 07/18/23 02:15 Pulse Oximetry 97 07/18/23 02:15 Oxygen Delivery Method Nasal Cannula 07/18/23 02:15 Oxygen Flow Rate 1 07/18/23 02:15 Medications Administered Medications: Discontinued Medications Generic Name Dose Route Start Last Admin Trade Name Freq PRN Reason Stop Dose Admin Acetaminophen 1,000 mg 07/18/23 03:04 07/18/23 03:51 Acetaminophen 500 Mg Tablet PO 07/18/23 03:05 1,000 mg ONCE ONE Administration Albuterol/Ipratropium 1 neb 07/18/23 03:04 07/18/23 03:51 Iprat-Albut 0.5-2.5 Mg/3 Ml Neb IH 07/18/23 03:05 1 neb ONCE ONE Administration Sodium Chloride 1,000 mls @ 1,000 mls/hr 07/18/23 00:36 07/18/23 03:51 0.9 % Sodium Chloride 1000 Ml IV 07/18/23 01:35 Infused .Q1H ONE Infusion Medical Decision Making MDM Narrative Medical decision making narrative: She does not recall any sensation of heart palpitations. Will monitor on campus monitor. Initiate IV fluids. Check chemistries. Lactate. Per her history this was again likely a pseudo-seizure brought on by increased stressors in her life currently. Labs are reassuring. Normal lactate. Reported to have had an observed and alert 3 second shaking episode here in the emergency department No events on monitor. EKG as below. Maintaining normal and lower oxygenation. During longer time in the emergency department did request nebulization; given DuoNeb. Did also ask about treatment for headache was given acetaminophen. See patient discharge plan Lab Data Lab results reviewed: Yes I reviewed the patient's lab results Labs: Lab Results 07/18/23 07/18/23 07/18/23 Range/Units 01:00 01:05 01:05 WBC 9.76 (4.50-11.00) K/uL RBC 4.53 (4.00-5.20) m/uL Hgb 13.4 (12.0-16.0) gm/dL Hct 40.1 (33.0-51.0) % MCV 89 (80-100) fL MCH 30 (26-34) pg MCHC 33 (32-36) gm/dL RDW Coeff of Tomy 13.2 (11.5-15.5) % Plt Count 212 (140-440) K/uL Neut % (Auto) 68.1 (42.0-72.0) % Lymph % (Auto) 23.6 (20-44) % [place] % (Auto) 6.0 (0.0-11.0) % Eos % (Auto) 1.6 (0.0-7.0) % Baso % (Auto) 0.3 (0.0-3.0) % Neut # (Auto) 6.64 (1.7-7.0) K/uL Lymph # (Auto) 2.30 (0.90-2.90) K/uL [place] # (Auto) 0.60 (0.00-0.90) K/UL Eos # (Auto) 0.16 (0.00-0.50) K/uL Baso # (Auto) 0.03 (0.00-0.30) K/uL Abs Immat Gran (auto) 0.04 (0.00-0.30) K/uL Imm/Tot Granulo (auto) 0.4 % Sodium 136 (135-149) mmol/L Potassium 3.6 (3.6-5.1) mmol/L Chloride 99 (96-114) mmol/L Carbon Dioxide 30 (20-32) mmol/L Anion Gap 7 (7-15) mEq/L BUN 14 (5-24) mg/dL Creatinine 0.6 (0.5-1.5) mg/dL Estimated Creat Clear 188.76 Estimated GFR 112 ml/min Glucose 106 (60-115) mg/dL Hemoglobin A1c (0-5.6) % Lactate 0.9 (0.5-1.9) mmol/L Calcium 9.1 (8.4-10.6) mg/dL Magnesium 1.8 (1.5-2.6) mg/dL Total Bilirubin 0.5 (0.1-1.5) mg/dL Direct Bilirubin 0.2 (0.0-0.5) mg/dL AST 30 (12-35) U/L ALT 32 (4-35) U/L Alkaline Phosphatase 85 (40-150) U/L C-Reactive Protein 0.9 (0.5-1.0) mg/dL Total Protein 7.2 (6.0-8.3) g/dL Albumin 4.0 (3.3-5.0) g/dL TSH (0.270-4.20) uIU/mL Urine Color Yellow Cancelled (Yellow) Urine Appearance Clear (Clear) Urine pH (5.0-8.5) Ur Specific [place] (1.000-1.030) Urine Protein (Negative) Urine Glucose (UA) (Negative) Urine Ketones (Negative) Urine Blood (Negative) Urine Nitrite (Negative) Urine Bilirubin (Negative) Urine Urobilinogen (0.2-1.0) Ur Leukocyte Esterase (Negative) Urine RBC (0-2) Urine WBC (0-5) Urine WBC Clumps Ur Squamous Epith Cells (None-Few) Jamari Biurate Crystals Calcium Carbonate Cryst Calcium Phosphate Cryst Calcium Oxalate Crystal Cystine Crystals Uric Acid Crystals Triple Phos Crystals Sulfur Crystals Cholesterol Crystals Tyrosine Crystals Hippuric Acid Crystals Amorphous Sediment Other Sediment Urine Bacteria (None) Fatty Casts Hyaline Casts Fine Granular Casts Coarse Granular Casts Waxy Casts RBC Casts WBC Casts Other Casts Urine Starch Urine Mucus Urine Trichomonas Urine Yeast Lab Acknowledgement 07/18/23 07/18/23 07/18/23 Range/Units 01:05 01:05 01:05 WBC (4.50-11.00) K/uL RBC (4.00-5.20) m/uL Hgb (12.0-16.0) gm/dL Hct (33.0-51.0) % MCV (80-100) fL MCH (26-34) pg MCHC (32-36) gm/dL RDW Coeff of Tomy (11.5-15.5) % Plt Count (140-440) K/uL Neut % (Auto) (42.0-72.0) % Lymph % (Auto) (20-44) % [place] % (Auto) (0.0-11.0) % Eos % (Auto) (0.0-7.0) % Baso % (Auto) (0.0-3.0) % Neut # (Auto) (1.7-7.0) K/uL Lymph # (Auto) (0.90-2.90) K/uL [place] # (Auto) (0.00-0.90) K/UL Eos # (Auto) (0.00-0.50) K/uL Baso # (Auto) (0.00-0.30) K/uL Abs Immat Gran (auto) (0.00-0.30) K/uL Imm/Tot Granulo (auto) % Sodium (135-149) mmol/L Potassium (3.6-5.1) mmol/L Chloride (96-114) mmol/L Carbon Dioxide (20-32) mmol/L Anion Gap (7-15) mEq/L BUN (5-24) mg/dL Creatinine (0.5-1.5) mg/dL Estimated Creat Clear Estimated GFR ml/min Glucose (60-115) mg/dL Hemoglobin A1c (0-5.6) % Lactate (0.5-1.9) mmol/L Calcium (8.4-10.6) mg/dL Magnesium (1.5-2.6) mg/dL Total Bilirubin (0.1-1.5) mg/dL Direct Bilirubin (0.0-0.5) mg/dL AST (12-35) U/L ALT (4-35) U/L Alkaline Phosphatase (40-150) U/L C-Reactive Protein (0.5-1.0) mg/dL Total Protein (6.0-8.3) g/dL Albumin (3.3-5.0) g/dL TSH (0.270-4.20) uIU/mL Urine Color (Yellow) Urine Appearance Cancelled (Clear) Urine pH 5.5 Cancelled (5.0-8.5) Ur Specific [place] <= 1.005 Cancelled (1.000-1.030) Urine Protein Negative (Negative) Urine Glucose (UA) (Negative) Urine Ketones (Negative) Urine Blood (Negative) Urine Nitrite (Negative) Urine Bilirubin (Negative) Urine Urobilinogen (0.2-1.0) Ur Leukocyte Esterase (Negative) Urine RBC (0-2) Urine WBC (0-5) Urine WBC Clumps Ur Squamous Epith Cells (None-Few) [place] Biurate Crystals Calcium Carbonate Cryst Calcium Phosphate Cryst Calcium Oxalate Crystal Cystine Crystals Uric Acid Crystals Triple Phos Crystals Sulfur Crystals Cholesterol Crystals Tyrosine Crystals Hippuric Acid Crystals Amorphous Sediment Other Sediment Urine Bacteria (None) Fatty Casts Hyaline Casts Fine Granular Casts Coarse Granular Casts Waxy Casts RBC Casts WBC Casts Other Casts Urine Starch Urine Mucus Urine Trichomonas Urine Yeast Lab Acknowledgement 07/18/23 07/18/23 07/18/23 Range/Units 01:05 01:05 01:05 WBC (4.50-11.00) K/uL RBC (4.00-5.20) m/uL Hgb (12.0-16.0) gm/dL Hct (33.0-51.0) % MCV (80-100) fL MCH (26-34) pg MCHC (32-36) gm/dL RDW Coeff of Tomy (11.5-15.5) % Plt Count (140-440) K/uL Neut % (Auto) (42.0-72.0) % Lymph % (Auto) (20-44) % [place] % (Auto) (0.0-11.0) % Eos % (Auto) (0.0-7.0) % Baso % (Auto) (0.0-3.0) % Neut # (Auto) (1.7-7.0) K/uL Lymph # (Auto) (0.90-2.90) K/uL [place] # (Auto) (0.00-0.90) K/UL Eos # (Auto) (0.00-0.50) K/uL Baso # (Auto) (0.00-0.30) K/uL Abs Immat Gran (auto) (0.00-0.30) K/uL Imm/Tot Granulo (auto) % Sodium (135-149) mmol/L Potassium (3.6-5.1) mmol/L Chloride (96-114) mmol/L Carbon Dioxide (20-32) mmol/L Anion Gap (7-15) mEq/L BUN (5-24) mg/dL Creatinine (0.5-1.5) mg/dL Estimated Creat Clear Estimated GFR ml/min Glucose (60-115) mg/dL Hemoglobin A1c (0-5.6) % Lactate (0.5-1.9) mmol/L Calcium (8.4-10.6) mg/dL Magnesium (1.5-2.6) mg/dL Total Bilirubin (0.1-1.5) mg/dL Direct Bilirubin (0.0-0.5) mg/dL AST (12-35) U/L ALT (4-35) U/L Alkaline Phosphatase (40-150) U/L C-Reactive Protein (0.5-1.0) mg/dL Total Protein (6.0-8.3) g/dL Albumin (3.3-5.0) g/dL TSH (0.270-4.20) uIU/mL Urine Color (Yellow) Urine Appearance (Clear) Urine pH (5.0-8.5) Ur Specific [place] (1.000-1.030) Urine Protein Cancelled (Negative) Urine Glucose (UA) Negative Cancelled (Negative) Urine Ketones Negative Cancelled (Negative) Urine Blood Negative (Negative) Urine Nitrite (Negative) Urine Bilirubin (Negative) Urine Urobilinogen (0.2-1.0) Ur Leukocyte Esterase (Negative) Urine RBC (0-2) Urine WBC (0-5) Urine WBC Clumps Ur Squamous Epith Cells (None-Few) Jamari Biurate Crystals Calcium Carbonate Cryst Calcium Phosphate Cryst Calcium Oxalate Crystal Cystine Crystals Uric Acid Crystals Triple Phos Crystals Sulfur Crystals Cholesterol Crystals Tyrosine Crystals Hippuric Acid Crystals Amorphous Sediment Other Sediment Urine Bacteria (None) Fatty Casts Hyaline Casts Fine Granular Casts Coarse Granular Casts Waxy Casts RBC Casts WBC Casts Other Casts Urine Starch Urine Mucus Urine Trichomonas Urine Yeast Lab Acknowledgement 07/18/23 07/18/23 07/18/23 Range/Units 01:05 01:05 01:05 WBC (4.50-11.00) K/uL RBC (4.00-5.20) m/uL Hgb (12.0-16.0) gm/dL Hct (33.0-51.0) % MCV (80-100) fL MCH (26-34) pg MCHC (32-36) gm/dL RDW Coeff of Tomy (11.5-15.5) % Plt Count (140-440) K/uL Neut % (Auto) (42.0-72.0) % Lymph % (Auto) (20-44) % [place] % (Auto) (0.0-11.0) % Eos % (Auto) (0.0-7.0) % Baso % (Auto) (0.0-3.0) % Neut # (Auto) (1.7-7.0) K/uL Lymph # (Auto) (0.90-2.90) K/uL [place] # (Auto) (0.00-0.90) K/UL Eos # (Auto) (0.00-0.50) K/uL Baso # (Auto) (0.00-0.30) K/uL Abs Immat Gran (auto) (0.00-0.30) K/uL Imm/Tot Granulo (auto) % Sodium (135-149) mmol/L Potassium (3.6-5.1) mmol/L Chloride (96-114) mmol/L Carbon Dioxide (20-32) mmol/L Anion Gap (7-15) mEq/L BUN (5-24) mg/dL Creatinine (0.5-1.5) mg/dL Estimated Creat Clear Estimated GFR ml/min Glucose (60-115) mg/dL Hemoglobin A1c (0-5.6) % Lactate (0.5-1.9) mmol/L Calcium (8.4-10.6) mg/dL Magnesium (1.5-2.6) mg/dL Total Bilirubin (0.1-1.5) mg/dL Direct Bilirubin (0.0-0.5) mg/dL AST (12-35) U/L ALT (4-35) U/L Alkaline Phosphatase (40-150) U/L C-Reactive Protein (0.5-1.0) mg/dL Total Protein (6.0-8.3) g/dL Albumin (3.3-5.0) g/dL TSH (0.270-4.20) uIU/mL Urine Color (Yellow) Urine Appearance (Clear) Urine pH (5.0-8.5) Ur Specific [place] (1.000-1.030) Urine Protein (Negative) Urine Glucose (UA) (Negative) Urine Ketones (Negative) Urine Blood Cancelled (Negative) Urine Nitrite Negative Cancelled (Negative) Urine Bilirubin Negative Cancelled (Negative) Urine Urobilinogen 0.2 (0.2-1.0) Ur Leukocyte Esterase (Negative) Urine RBC (0-2) Urine WBC (0-5) Urine WBC Clumps Ur Squamous Epith Cells (None-Few) Jamari Biurate Crystals Calcium Carbonate Cryst Calcium Phosphate Cryst Calcium Oxalate Crystal Cystine Crystals Uric Acid Crystals Triple Phos Crystals Sulfur Crystals Cholesterol Crystals Tyrosine Crystals Hippuric Acid Crystals Amorphous Sediment Other Sediment Urine Bacteria (None) Fatty Casts Hyaline Casts Fine Granular Casts Coarse Granular Casts Waxy Casts RBC Casts WBC Casts Other Casts Urine Starch Urine Mucus Urine Trichomonas Urine Yeast Lab Acknowledgement 07/18/23 07/18/23 07/18/23 Range/Units 01:05 01:05 01:05 WBC (4.50-11.00) K/uL RBC (4.00-5.20) m/uL Hgb (12.0-16.0) gm/dL Hct (33.0-51.0) % MCV (80-100) fL MCH (26-34) pg MCHC (32-36) gm/dL RDW Coeff of Tomy (11.5-15.5) % Plt Count (140-440) K/uL Neut % (Auto) (42.0-72.0) % Lymph % (Auto) (20-44) % [place] % (Auto) (0.0-11.0) % Eos % (Auto) (0.0-7.0) % Baso % (Auto) (0.0-3.0) % Neut # (Auto) (1.7-7.0) K/uL Lymph # (Auto) (0.90-2.90) K/uL [place] # (Auto) (0.00-0.90) K/UL Eos # (Auto) (0.00-0.50) K/uL Baso # (Auto) (0.00-0.30) K/uL Abs Immat Gran (auto) (0.00-0.30) K/uL Imm/Tot Granulo (auto) % Sodium (135-149) mmol/L Potassium (3.6-5.1) mmol/L Chloride (96-114) mmol/L Carbon Dioxide (20-32) mmol/L Anion Gap (7-15) mEq/L BUN (5-24) mg/dL Creatinine (0.5-1.5) mg/dL Estimated Creat Clear Estimated GFR ml/min Glucose (60-115) mg/dL Hemoglobin A1c (0-5.6) % Lactate (0.5-1.9) mmol/L Calcium (8.4-10.6) mg/dL Magnesium (1.5-2.6) mg/dL Total Bilirubin (0.1-1.5) mg/dL Direct Bilirubin (0.0-0.5) mg/dL AST (12-35) U/L ALT (4-35) U/L Alkaline Phosphatase (40-150) U/L C-Reactive Protein (0.5-1.0) mg/dL Total Protein (6.0-8.3) g/dL Albumin (3.3-5.0) g/dL TSH (0.270-4.20) uIU/mL Urine Color (Yellow) Urine Appearance (Clear) Urine pH (5.0-8.5) Ur Specific [place] (1.000-1.030) Urine Protein (Negative) Urine Glucose (UA) (Negative) Urine Ketones (Negative) Urine Blood (Negative) Urine Nitrite (Negative) Urine Bilirubin (Negative) Urine Urobilinogen Cancelled (0.2-1.0) Ur Leukocyte Esterase Trace A Cancelled (Negative) Urine RBC 0-2 Cancelled (0-2) Urine WBC 2-5 (0-5) Urine WBC Clumps Ur Squamous Epith Cells (None-Few) [place] Biurate Crystals Calcium Carbonate Cryst Calcium Phosphate Cryst Calcium Oxalate Crystal Cystine Crystals Uric Acid Crystals Triple Phos Crystals Sulfur Crystals Cholesterol Crystals Tyrosine Crystals Hippuric Acid Crystals Amorphous Sediment Other Sediment Urine Bacteria (None) Fatty Casts Hyaline Casts Fine Granular Casts Coarse Granular Casts Waxy Casts RBC Casts WBC Casts Other Casts Urine Starch Urine Mucus Urine Trichomonas Urine Yeast Lab Acknowledgement 07/18/23 07/18/23 07/18/23 Range/Units 01:05 01:05 01:05 WBC (4.50-11.00) K/uL RBC (4.00-5.20) m/uL Hgb (12.0-16.0) gm/dL Hct (33.0-51.0) % MCV (80-100) fL MCH (26-34) pg MCHC (32-36) gm/dL RDW Coeff of Tomy (11.5-15.5) % Plt Count (140-440) K/uL Neut % (Auto) (42.0-72.0) % Lymph % (Auto) (20-44) % [place] % (Auto) (0.0-11.0) % Eos % (Auto) (0.0-7.0) % Baso % (Auto) (0.0-3.0) % Neut # (Auto) (1.7-7.0) K/uL Lymph # (Auto) (0.90-2.90) K/uL [place] # (Auto) (0.00-0.90) K/UL Eos # (Auto) (0.00-0.50) K/uL Baso # (Auto) (0.00-0.30) K/uL Abs Immat Gran (auto) (0.00-0.30) K/uL Imm/Tot Granulo (auto) % Sodium (135-149) mmol/L Potassium (3.6-5.1) mmol/L Chloride (96-114) mmol/L Carbon Dioxide (20-32) mmol/L Anion Gap (7-15) mEq/L BUN (5-24) mg/dL Creatinine (0.5-1.5) mg/dL Estimated Creat Clear Estimated GFR ml/min Glucose (60-115) mg/dL Hemoglobin A1c (0-5.6) % Lactate (0.5-1.9) mmol/L Calcium (8.4-10.6) mg/dL Magnesium (1.5-2.6) mg/dL Total Bilirubin (0.1-1.5) mg/dL Direct Bilirubin (0.0-0.5) mg/dL AST (12-35) U/L ALT (4-35) U/L Alkaline Phosphatase (40-150) U/L C-Reactive Protein (0.5-1.0) mg/dL Total Protein (6.0-8.3) g/dL Albumin (3.3-5.0) g/dL TSH (0.270-4.20) uIU/mL Urine Color (Yellow) Urine Appearance (Clear) Urine pH (5.0-8.5) Ur Specific [place] (1.000-1.030) Urine Protein (Negative) Urine Glucose (UA) (Negative) Urine Ketones (Negative) Urine Blood (Negative) Urine Nitrite (Negative) Urine Bilirubin (Negative) Urine Urobilinogen (0.2-1.0) Ur Leukocyte Esterase (Negative) Urine RBC (0-2) Urine WBC Cancelled (0-5) Urine WBC Clumps Cancelled Ur Squamous Epith Cells Few Cancelled (None-Few) Jamari Biurate Crystals Cancelled Calcium Carbonate Cryst Cancelled Calcium Phosphate Cryst Cancelled Calcium Oxalate Crystal Cancelled Cystine Crystals Cancelled Uric Acid Crystals Cancelled Triple Phos Crystals Cancelled Sulfur Crystals Cancelled Cholesterol Crystals Cancelled Tyrosine Crystals Cancelled Hippuric Acid Crystals Cancelled Amorphous Sediment Cancelled Other Sediment Cancelled Urine Bacteria Few A Cancelled (None) Fatty Casts Cancelled Hyaline Casts Cancelled Fine Granular Casts Cancelled Coarse Granular Casts Cancelled Waxy Casts Cancelled RBC Casts Cancelled WBC Casts Cancelled Other Casts Cancelled Urine Starch Cancelled Urine Mucus Cancelled Urine Trichomonas Cancelled Urine Yeast Cancelled Lab Acknowledgement 07/18/23 07/18/23 Range/Units 01:09 01:50 WBC (4.50-11.00) K/uL RBC (4.00-5.20) m/uL Hgb (12.0-16.0) gm/dL Hct (33.0-51.0) % MCV (80-100) fL MCH (26-34) pg MCHC (32-36) gm/dL RDW Coeff of Tomy (11.5-15.5) % Plt Count (140-440) K/uL Neut % (Auto) (42.0-72.0) % Lymph % (Auto) (20-44) % [place] % (Auto) (0.0-11.0) % Eos % (Auto) (0.0-7.0) % Baso % (Auto) (0.0-3.0) % Neut # (Auto) (1.7-7.0) K/uL Lymph # (Auto) (0.90-2.90) K/uL [place] # (Auto) (0.00-0.90) K/UL Eos # (Auto) (0.00-0.50) K/uL Baso # (Auto) (0.00-0.30) K/uL Abs Immat Gran (auto) (0.00-0.30) K/uL Imm/Tot Granulo (auto) % Sodium (135-149) mmol/L Potassium (3.6-5.1) mmol/L Chloride (96-114) mmol/L Carbon Dioxide (20-32) mmol/L Anion Gap (7-15) mEq/L BUN (5-24) mg/dL Creatinine (0.5-1.5) mg/dL Estimated Creat Clear Estimated GFR ml/min Glucose (60-115) mg/dL Hemoglobin A1c 5.6 (0-5.6) % Lactate (0.5-1.9) mmol/L Calcium (8.4-10.6) mg/dL Magnesium (1.5-2.6) mg/dL Total Bilirubin (0.1-1.5) mg/dL Direct Bilirubin (0.0-0.5) mg/dL AST (12-35) U/L ALT (4-35) U/L Alkaline Phosphatase (40-150) U/L C-Reactive Protein (0.5-1.0) mg/dL Total Protein (6.0-8.3) g/dL Albumin (3.3-5.0) g/dL TSH 0.103 L (0.270-4.20) uIU/mL Urine Color (Yellow) Urine Appearance (Clear) Urine pH (5.0-8.5) Ur Specific [place] (1.000-1.030) Urine Protein (Negative) Urine Glucose (UA) (Negative) Urine Ketones (Negative) Urine Blood (Negative) Urine Nitrite (Negative) Urine Bilirubin (Negative) Urine Urobilinogen (0.2-1.0) Ur Leukocyte Esterase (Negative) Urine RBC (0-2) Urine WBC (0-5) Urine WBC Clumps Ur Squamous Epith Cells (None-Few) [place] Biurate Crystals Calcium Carbonate Cryst Calcium Phosphate Cryst Calcium Oxalate Crystal Cystine Crystals Uric Acid Crystals Triple Phos Crystals Sulfur Crystals Cholesterol Crystals Tyrosine Crystals Hippuric Acid Crystals Amorphous Sediment Other Sediment Urine Bacteria (None) Fatty Casts Hyaline Casts Fine Granular Casts Coarse Granular Casts Waxy Casts RBC Casts WBC Casts Other Casts Urine Starch Urine Mucus Urine Trichomonas Urine Yeast Lab Acknowledgement New Spec Needed ECG Data Attestation: I personally reviewed and interpreted this ECG as follows: (Normal sinus rhythm. Somewhat low voltage. Looks remarkably similar to 06/08/2023; even the same rate at 89 beats per minute) Discharge Plan Discharge Clinical Impression: Psychogenic nonepileptic seizure, Seizure-like activity, Other social stressor Patient Disposition: Home, Self-Care Condition: Improved Instructions: Nonepileptic Seizures (ED) Additional Instructions: Stay well-hydrated. It does sound like it might be time for you to show up in person to this longterm/assisted living. Consider checking in with your neurologist. Prescriptions: No Action levetiracetam [Keppra] 750 mg tablet 750 mg PO BID solifenacin 10 mg tablet 10 mg PO DAILY furosemide 40 mg tablet 40 mg PO DAILY Qty: 33 0RF Rx Instructions: Take one table twice a day for three days starting 03/07/2023, then once a day after that potassium chloride 20 mEq tablet extended release 20 meq PO DAILY Qty: 33 0RF Rx Instructions: Take one tablet twice a day for three days starting 03/07/2023, then once a day after that montelukast 10 mg tablet 10 mg PO HS Myrbetriq 50 mg tablet extended release 24 hr 50 mg PO DAILY Patient Comments: albuterol sulfate 90 mcg/actuation HFA aerosol inhaler 2 puff INHALATION Q4H PRN levothyroxine 125 mcg tablet 125 mcg PO QAM cholecalciferol (vitamin D3) 50 mcg (2,000 unit) capsule 50 mcg PO DAILY paroxetine HCl 40 mg tablet 40 mg PO DAILY Patient Comments: terbinafine HCl 1 % cream topical BID furosemide 40 mg Tablet 40 mg PO DAILY Qty: 30 0RF prednisone 20 mg Tablet 40 mg PO DAILYWM Qty: 2 0RF potassium chloride 10 mEq capsule, extended release 20 meq PO DAILY Qty: 60 2RF albuterol sulfate 2.5 mg /3 mL (0.083 %) solution for nebulization 2.5 mg inhalation Q8H PRNQty: 1 0RF budesonide-formoterol [Symbicort] 160-4.5 mcg/actuation HFA aerosol inhaler 2 puff INHALATION BID Qty: 1 0RF Spiriva Respimat 2.5 mcg/actuation mist 2 puff inhalation DAILY Qty: 1 0RF ipratropium-albuterol 0.5 mg-3 mg(2.5 mg base)/3 mL solution for nebulization 3 ml inhalation Q6-8H PRNQty: 90 0RF omeprazole 20 mg capsule,delayed release(DR/EC) 40 mg PO DAILY Follow Up/Referrals: Geronimo Lamb MD [Primary Care Provider] - Stand Alone Forms: [facility] Info Instructions
[2023-07-18 01:04] LABS: Basophils Absolute Auto 0.03 K/uL (0.00-0.30); Basophils Percent Auto 0.3 % (0.0-3.0); Eosinophils Absolute Auto 0.16 K/uL (0.00-0.50); Eosinophils Percent Auto 1.6 % (0.0-7.0); Hematocrit 40.1 % (33.0-51.0); Hemoglobin* 13.4 gm/dL (12.0-16.0); Immature Granulocytes Abs Auto 0.04 K/uL (0.00-0.30); Immature Granulocytes Pct Auto 0.4 %; Lactate* 0.9 mmol/L (0.5-1.9); Lymphocytes Percent Auto 23.6 % (20-44); Mean Corpuscular HGB Conc 33 gm/dL (32-36); Mean Corpuscular Hemoglobin 30 pg (26-34); Mean Corpuscular Volume 89 fL (80-100); Neutrophils Absolute Auto 6.64 K/uL (1.7-7.0); Neutrophils Percent Auto 68.1 % (42.0-72.0); Platelet Count* 212 K/uL (140-440); RDW Coefficient of Variation % 13.2 % (11.5-15.5); Red Blood Count 4.53 m/uL (4.00-5.20); White Blood Count* 9.76 K/uL (4.50-11.00)
[2023-07-18 01:15] VITALS: BP 136/74; BP 138/76; PULSE 72; PULSE 78; RESP 18; TEMP 36.8; TEMP 36.9; O2SAT 96; O2SAT 97
[2023-07-18 01:15] LABS: Appearance Urine Clear (Clear); Bilirubin Urine Negative (Negative); Blood Urine Negative (Negative); Color Urine Yellow (Yellow); Glucose Urine Negative (Negative); Ketones Urine Negative (Negative); Leukocyte Esterase Urine Trace (Negative); Nitrite Urine Negative (Negative); Protein Urine Negative (Negative); Specific Gravity Urine <= 1.005 (1.000-1.030); Urobilinogen Urine 0.2 (0.2-1.0); pH Urine 5.5 (5.0-8.5)
[2023-07-18 01:17] LABS: Slide Review Reflex No
[2023-07-18 01:25] LABS: Bacteria Urine Few; RBC Urine 0-2 (0-2); Squamous Epithelial Cell Urine Few (None-Few)
[2023-07-18 01:27] LABS: Chloride* 99 mmol/L (96-114)
[2023-07-18 01:28] LABS: Potassium* 3.6 mmol/L (3.6-5.1); Sodium* 136 mmol/L (135-149)
[2023-07-18 01:30] LABS: Creatinine* 0.6 mg/dL (0.5-1.5); Est. Creatinine Clearance* 188.76; Estimated Glomerular Filt Rate 112 ml/min
[2023-07-18 01:31] LABS: Alanine Aminotransferase* 32 U/L (4-35); Alkaline Phosphatase* 85 U/L (40-150); Anion Gap 7 mEq/L (7-15); Aspartate Amino Transferase* 30 U/L (12-35); Bilirubin Direct* 0.2 mg/dL (0.0-0.5); Bilirubin Total* 0.5 mg/dL (0.1-1.5); Blood Urea Nitrogen* 14 mg/dL (5-24); Calcium* 9.1 mg/dL (8.4-10.6); Carbon Dioxide* 30 mmol/L (20-32); Glucose* 106 mg/dL (60-115); Magnesium* 1.8 mg/dL (1.5-2.6); Total Protein* 7.2 g/dL (6.0-8.3)
[2023-07-18 01:33] LABS: C Reactive Protein* 0.9 mg/dL (0.5-1.0)
[2023-07-18 01:38] LABS: Lab Add On Test New Spec Needed
--- NOTE | 2023-07-18 01:42 | ED.NURSE ---
Patient had three-second shaking episode witnessed by medical chief technician. Patient full alert and oriented following episode. MD notified. VSS.
[2023-07-18] MEDS: 0.9 % SODIUM CHLORIDE 1000 ml 1,000 ML IV (01:45)
[2023-07-18 02:15] VITALS: BP 126/83; PULSE 76; RESP 18; TEMP 36.7; O2SAT 97
[2023-07-18 02:24] LABS: Hemoglobin A1C* 5.6 % (0-5.6)
--- NOTE | 2023-07-18 02:33 | PC.NURSE ---
pt put call light on, states she had another seizure. VSS
[2023-07-18 02:54] LABS: Thyroid Stimulating Hormone* 0.103 uIU/mL (0.270-4.20)
[2023-07-18] MEDS: IPRAT-ALBUT 0.5-2.5 MG/3 ML NEB 1 NEB IH (03:51)
[2023-07-18] MEDS: ACETAMINOPHEN 500 MG TABLET 1000 MG PO (03:51)
== END 2023-07-18 07:09 | disposition home or self-care (01) ==
PROVIDERS: Emergency Provider Family Medicine; PCP Family Medicine
DX: F44.5 Conversion disorder with seizures or convulsions (principal); F43.9 Reaction to severe stress, unspecified
CPT/HCPCS: 36415; 80048; 80076; 81001; 83036; 83605; 83735; 84443; 85025; 86140; 87086; 94640; 99284; A9270; J7030

== ENCOUNTER 2023-08-19 22:43 | Outpatient (CLI) | payer MEDICAID, SELFPAY | END 2023-08-19 22:44 | disposition home or self-care (01) | PROVIDERS: PCP Family Medicine; Visit Provider Student in an Organized Health Care Education/Training Program | DX: R53.1 Weakness (principal); R32 Unspecified urinary incontinence | CPT/HCPCS: A0998 ==

== ENCOUNTER 2023-09-02 20:51 | Outpatient (CLI) | payer MEDICAID, SELFPAY ==
--- OUTSIDE RECORDS SUMMARY | 2023-09-07 10:46 | XMS_ITS ---
Author Name Unknown Organization [facility] Address [address] [place] [address] Care Team Providers Care Urban Renewal Manager Name Role Phone Unavailable Unavailable Unavailable Surgery Details Not on file Complications Check Surgery Details section. Procedure Estimated Blood Loss Check Surgery Details section. Procedure Findings Check Surgery Details section. Procedure Specimens Taken Check Surgery Details section.
--- OUTSIDE RECORDS SUMMARY | 2023-09-07 10:46 | XMS_ITS ---
Author Name Unknown Organization [facility] Address [address] [place] [address] Care Team Providers Care Revenue Enforcement Collection Agent Name Role Phone Elsewhere, Pcp Primary Care Provider Unavailabl e Transplant Episode Lung Candidate [facility] ([place], [place]) - [facility] Referred on 03/27/2023 Marked as Ineligible on 07/14/2023 Reason: Unable to Contact Patient Lung CoordinatorCoordinator Transplant, R.N. Phone: N/A Fax: N/A Email: N/A Care Team Name Role Phone Fax Email Coordinator Transplant, R.N. Lung Coordinator N/A N /A N/A Events Pre-Transplant Referred: 03/27/2023
--- OUTSIDE RECORDS SUMMARY | 2023-09-07 10:46 | XMS_ITS | Clinical Summary ---
Author Name Unknown Organization [facility] Address [place], [place] [address] Care Team Providers Care Milking Machine Operator Name Role Phone Paolo Limon MD Unavailable Talon Durham MD Unavailable [phone] Laura Gardner PsyD, Unavailable [phone] Geronimo Lamb MD Primary Care Provider Allergies [...] Dispensed Refills Start Date End Date Status [facility], medication turnaround planner with alarm 1 unit 0 04/22/2014 Active diphenhydrAMINE (BENADRYL) 25 mg capsule Take 1 capsule by mouth each time if needed. 0 12/15/2014 Active albuterol (PROVENTIL) 0.083 % neb solutionIndications :Moderate persistent asthma, uncomplicated Inhale 3 mL via a nebulizer every 6 hours if needed for Shortness Of Breath or Wheezing. 1 box 1 12/28/2014 Active Symbicort 160-4.5 mcg/actuation (160-4.5 mcg each actuation) inhaler 03/01/2021 Active cholecalciferol, Vitamin D3, 2,000 unit tablet Take 2,000 units by mouth. Active omeprazole (PriLOSEC) 20 mg Delayed-Release capsuleIndications: Chronic GERD Take 2 Capsules (40 mg) by mouth once daily before a meal. 180 Capsule 3 08/21/2022 Active montelukast (SINGULAIR) 10 mg tabletIndications:A llergy, sequela Take 1 Tablet (10 mg) by mouth at bedtime. 90 Tablet 3 11/07/2022 Active medication order composerIndications :Nocturnal hypoxemia Oxygen is no longer needed at night- the order for oxygen is canceled 1 unit 12/10/2022 Active Additional Information Patient taking differently: Oxygen is 24 hours a day, Reported on 08/04/2023 terbinafine 1% cream (LAMISIL) 1 % creamIndications:In tertrigo Apply topically to affected area(s) two times daily. 80 g 3 01/14/2023 Active Diaper,Brief, Adult,DisposableInd ications:Urge urinary incontinence For home use. Size large. 60 Each 11 01/15/2023 Active PARoxetine (PAXIL) 40 mg tabletIndications:A nxiety and depression TAKE 1 TABLET BY MOUTH EVERY DAY IN THE MORNING 90 Tablet 1 02/01/2023 Active tiotropium (SPIRIVA HANDIHALER) 18 mcg inhalation capsuleIndications: Severe persistent asthma, unspecified whether complicated Inhale 1 Capsule (18 mcg) by mouth once daily. Using a SPRIVA HANDIHALER fischer the capsule, then by mouth breathe in the powder. Inhale twice from the same capsule for full dose. 90 Capsule 3 02/21/2023 Active furosemide (LASIX) 40 mg tabletIndications:S OB (shortness of breath) Take 1 Tablet (40 mg) by mouth every morning. 90 Tablet 3 03/06/2023 Active potassium chloride (Klor-Con 10) 10 mEq extended-release tabletIndications:S OB (shortness of breath) Take 2 Tablets (20 mEq) by mouth once daily with a meal. 180 Tablet 3 03/06/2023 Active mirabegron EXTENDED-release (MYRBETRIQ) 50 mg tabletIndications:U rge urinary incontinence Take 1 Tablet (50 mg) by mouth once daily. 90 Tablet 04/02/2023 Active albuterol HFA (PRO-AIR; VENTOLIN; PROVENTIL) 90 mcg/actuation inhalerIndications: Moderate persistent asthma, uncomplicated INHALE 1 TO 2 PUFFS BY MOUTH EVERY 4 HOURS NEEDED FOR SHORTNESS OF BREATH 1ST CHOICE 17 Each 3 04/25/2023 Active levETIRAcetam (KEPPRA) 750 mg tabletIndications:S margyre (HC) Take 1 Tablet (750 mg) by mouth two times daily. 60 Tablet 3 05/27/2023 Active CPAPIndications:RODRICK (obstructive sleep apnea) CPAP machine for home use at pressure 13cmw, full face mask x1/3month with a full face cushion x1/mo 1 Each 11 07/24/2023 Active levothyroxine (SYNTHROID) 100 mcg tabletIndications:H ypothyroidism (acquired) Take 1 Tablet (100 mcg) by mouth before breakfast. 60 Tablet 5 08/05/2023 Active Active Problems Problem Noted Date Diagnosed [...] and depression Dizziness Overview: Eval by [facility] neurology 2018. Thought to be functional. [...] Description 09/01/2023 2:55 PM CDT Office Visit [facility] [place] [address] [address] Geronimo Lamb MD Form (For assisted living) 09/01/2023 Travel 08/05/2023 Orders Only [facility] [place] [address] [address] Geronimo Lamb MD <No scans attached> 08/04/2023 2:55 PM CDT Office Visit [facility] [place] [address] [address] Geronimo Lamb MD Fall (Fell to floor in bedroom, tripped over oxygen tubing when getting up, 07/31/2023); Medication Management; Results (Go over lab results) 08/04/2023 Travel 07/25/2023 Nurse Triage [facility] [place] [address] [address] Geronimo Lamb MD Medication Management 07/24/2023 3:00 PM ELECTRIC DRILL OPERATOR Office Visit [facility] [place] [address] [address] Paolo Limon MD Sleep Follow-up 07/24/2023 Travel 07/22/[address] [place] [address] Heather Howe AuD Hearing Aid 07/17/2023 3:00 PM ELECTRIC DRILL OPERATOR Office Visit [address] [place] [address] Jasmyne Amaya MD Consult (Cholesteatoma, unspecified laterality [H71.90]) 07/17/2023 2:30 PM ELECTRIC DRILL OPERATOR Office Visit [address] [place] [address] Heather Howe, Eyad Hearing Problem (Hearing test ) 07/17/2023 Travel 07/11/2023 Nurse Triage [facility] [address] [place] [address] Geronimo Lamb MD Elbow Pain/problem 07/11/2023 Telephone [facility] [address] [place] [address] Geronimo Lamb MD Appointment Request 06/10/2023 2:05 PM ELECTRIC DRILL OPERATOR Office Visit [facility] [address] [place] [address] Geronimo Lamb MD Ear Problem (Left ear pain, started about a week ago); Dizziness (Spinning and non-spinning, started about a month ago); Headache (Off and on started about 6 weeks ago) 06/10/2023 Travel 06/08/2023 Orders Only [facility] Scanner 1 scan: (1-Ord) [facility], XR CHEST 2V, 06/08/2023 from Last 3 Months Immunizations Name Administration Dates Next Due COVID-19 Vaccine Spikevax (M oderna 50mcg/0.5mL) 12YO+ [id number] Formula PF 03/19/2023 COVID-19 vaccine (Pfizer-Bio NTech [...] T Respiratory Rate 90 06/10/2023 2:35 PM ELECTRIC DRILL OPERATOR Oxygen Saturation 91% 09/01/2023 3:04 PM CDT Inhaled Oxygen Concentration - - Weight 106.9 kg (235 lb 9.6 oz) 09/01/2023 3:04 PM CDT Height 142.2 cm (4' 8) 07/24/2023 2:36 PM ELECTRIC DRILL OPERATOR Body Mass Index 52.82 07/24/2023 2:36 PM ELECTRIC DRILL OPERATOR Plan of Treatment Upcoming Encounters Date Type Department Care Team (Late st Contact Info) Description 10/29/2023 2:30 PM CDT Orders Only [facility] [address] [place] [address] Lab, [place] 10/29/2023 3:00 PM CDT Office Visit [facility] [address] [place] [address] Paolo Limon MD [address] [place] [address] 11/05/2023 11:40 AM CDT Office Visit [facility] [place] [facility] [address] [place] [address] Dread Villavicencio MD [address] [place] [address] Health Maintenance Due Date Last Done Comments [...] 03/19/20 23, 05/01/2022, 08/29/2021, Additional history exists Procedures Procedure Name Priority Date/Time Associated Diagnosis Comments T4,FREE Routine 08/04/2023 3:49 PM CDT Hypothyroidism (acquired) TSH WITH REFLEX Routine 08/04/2023 3:49 PM CDT Hypothyroidism (acquired) TSH WITH REFLEX Routine 06/10/2023 3:22 PM ELECTRIC DRILL OPERATOR Hypothyroidism (acquired) SCAN-RADIOLOGY REPORT 06/08/2023 12:00 AM ELECTRIC DRILL OPERATOR LIPID PANEL W REFLEX MEASURED LDL Routine 03/19/2023 12:35 PM CDT Hyperlipidemia, unspecified hyperlipidemia type ANTI HIV 1/2 Routine 05/01/2022 4:36 PM ELECTRIC DRILL OPERATOR Encounter for screening for HIV ANTI HCV [...] - 4.20 uIU/mL 08/05/2023 1:54 PM CDT [facility] Blood BLOOD SPECIMEN / Unknown Butterfly / Unknown 08/04/2023 3:49 PM CDT 08/04/2023 3:50 PM CDT Narrative [facility] - 08/05/2023 1:54 PM CDT In Adults, TSH values between 5.00 and 10.00 uIU/ml do not necessarily indicate the presence of Hypothyroidism. Correlation with clinical findings such as presence of goiter and/or Thyroperoxidase (TPO) Antibody may be helpful. For more information please refer to SIVAN 2004; 291: 228-238. Geronimo Lamb MD CHEMISTRY Performing Organization Address City/[facility]/ZIP Co de Phone Number [facility] [address] [place] [address], * T4,FREE (08/04/2023 3:49 PM CDT) T4,FREE 1.27 0.93 - 1.70 ng/dL 08/05/2023 2:29 PM CDT [facility] Blood BLOOD SPECIMEN / Unknown Butterfly / Unknown 08/04/2023 3:49 PM CDT 08/04/2023 3:50 PM CDT Geronimo Lamb MD CHEMISTRY Performing Organization Address [facility] Co de Phone Number [facility] [address] [place] [address], * SCAN-RADIOLOGY REPORT (06/08/2023 12:00 AM ELECTRIC DRILL OPERATOR) Anatomical Region Laterality Modality Other Scanner OTHER * (ABNORMAL) LIPID PANEL W REFLEX MEASURED LDL (03/19/2023 12:35 PM CDT) CHOLESTEROL,TOTAL 258(H) 100 - 199 mg/dL 03/20/2023 8:11 AM CDT [facility] Comment: Cholesterol, Total Reference Ranges Desirable <200 mg/dL Borderline 200-239 mg/dL High >=240 mg/dL TRIGLYCERIDES 159(H) <150 mg/dL 03/20/2023 8:11 AM CDT [facility] HDL CHOLESTEROL 55 >40 mg/dL 8:11 AM CDT [facility] NON-HDL CHOLESTEROL 203(H) <145 mg/dl 03/20/2023 8:11 AM CDT [facility] CHOL/HDL RATIO 4.69(H) <4.50 03/20/2023 8:11 AM CDT [facility] LDL CHOLESTEROL 171(H) <=130 mg/dL 03/20/2023 8:11 AM CDT [facility] VLDL CHOLESTEROL 32(H) <=30 mg/dL 03/20/2023 8:11 AM CDT [facility] PROVIDER ORDERED STATUS RANDOM 03/20/2023 8:11 AM CDT [facility] Blood BLOOD SPECIMEN / Unknown Butterfly / Unknown 03/19/2023 12:35 PM CDT 03/19/2023 12:38 PM CDT Geronimo Lamb MD CHEMISTRY [facility] [address] [place] [address], [place] * ANTI HIV 1/2 (05/01/2022 4:36 PM ELECTRIC DRILL OPERATOR) Pathologist [facility] HIV-1/HIV-2 ANTIBODY Non-Reacti ve Non-Reacti ve 05/04/2022 9:59 PM ELECTRIC DRILL OPERATOR [facility] Comment:HIV-1 p24 and HIV-1/ HIV-2 Ab not detected. Blood BLOOD SPECIMEN / Unknown Butterfly / Unknown 05/01/2022 4:36 PM ELECTRIC DRILL OPERATOR 05/01/2022 4:41 PM ELECTRIC DRILL OPERATOR Geronimo Lamb MD SEND OUTS [facility] [address] [place] [address], * ANTI HCV (12/05/2021 9:30 AM CDT) HEPATITIS C ANTIBODY Non-React shikha Non-React shikha 12/05/2021 9:16 PM CDT [facility] Comment:Antibodies to HCV no t detected; does not exclude the possibility of exposure to HCV. Blood BLOOD SPECIMEN / Unknown Venipuncture / Unknown 12/05/2021 9:30 AM CDT 12/05/2021 9:33 AM CDT Geronimo Lamb MD SEND OUTS [facility] [address] [place] [address], [place] * SCAN-MAMMOGRAPHY REPORT (02/24/2019 12:00 AM CDT) Anatomical Region Laterality Modality Other Scanner OTHER from Last 3 Months or Most Recently Relevant to Health Maintenance Care Teams Milking Machine Operator Relationship Specialty Start Date End Date Geronimo Lamb MD [address] [place] [address] PCP - General Family Practice 04/23/21 Paolo Limon MD Sleep Medicine 10/28/11 Talon Durham MD Neurology Neurology 11/26/11 Laura Gardner PsyD, LP Psychology 09/14/13
--- OUTSIDE RECORDS SUMMARY | 2023-09-07 10:46 | XMS_ITS | Encounter Summary ---
Author Name Unknown Organization [facility] Address [address] [place] [address] Care Team Providers Care Second Language Tutor Name Role Phone Elsewhere, Pcp Primary Care Provider Unavailabl e Reason for Visit * Reason Onset Date Comments Treatment Questions 05/21/2023 Encounter Details Date Type Department Care Team (Latest Contact Info) Description 05/21/2023 Clinical Communication [facility] in [place], [place] [address] [place] [address] Violetta Mitchell R.N. [address] [place] [address] Treatment Questions Social History Tobacco Use Types [...] Sex Assigned at Female 06/02/2018 2:11 PM PHARMACIST TECHNICIAN Gender Identity Female 06/02/2018 2:11 PM PHARMACIST TECHNICIAN Sexual Orientation Choose not to disclose 2018 2:11 PM PHARMACIST TECHNICIAN documented as of this encounter Plan of Treatment Not on file documented as of this encounter Visit Diagnoses Not on filedocumented in this encounter Additional Health Concerns Assessment Noted Time PHQ-9 Depression Total Score: 14 10/27/ 019 3:26 PM CDT documented as of this encounter Care Teams Second Language Tutor Relationship Specialty Start Date End Date Elsewhere, Pcp PCP - General Internal Medicine 12/04/18 documented as of this encounter
--- OUTSIDE RECORDS SUMMARY | 2023-09-07 10:46 | XMS_ITS | Clinical Summary ---
Author Name Unknown Organization [facility] Address [address] [place] [address] Care Team Providers Care Mixer Whipped Topping Name Role Phone Elsewhere, Pcp Primary Care Provider Unavailabl e Source Comments Patient records contain information from all sites at [facility]. For routine questions regarding patient records, call [phone] during business hours, M-F 8:00 AM - 5:00 PM Central Time. Record requests for emergency care only can be directed to [phone] at any time.[facility] Allergies Active Allergy Reactions Criticality [...] 1 puff 2 (two) times a day. 03/07/2017 Active omeprazole (PriLOSEC) 20 mg capsule Take 1 capsule by mouth 2 (two) times a day. 01/22/2017 Active albuterol (ACCUNEB) 2.5 mg /3 mL nebulizer solution Take 3 mL by nebulization every 6 (six) hours as needed. 02/24/2017 Active ibuprofen (ADVIL,MOTRIN) 200 mg tablet Take 200 mg by mouth every 6 (six) hours as needed for pain. Active acetaminophen (TYLENOL) 325 mg tablet Take 325 mg by mouth every 4 (four) hours as needed for pain. Active cetirizine (ZyrTEC) 10 mg tablet Take 10 mg by mouth daily. Active nystatin (NYSTOP) 100,000 unit/gram powder Apply 1 application topically 2 (two) times a day. 30 g 1 11/11/2017 Active Additional Information Patient not taking.Reported on 01/13/2023 LORazepam (ATIVAN) 0.5 mg tablet Take 1 tablet (0.5 mg total) by mouth See Admin Instructions. Take 30 minutes prior to procedure. 1 tablet 11/14/2017 Active levothyroxine (SYNTHROID, LEVOTHROID) 175 mcg [...] 30 minutes prior to MRI. 1 tablet 03/20/2018 Active prochlorperazine (COMPAZINE) 5 mg tablet Take 1 tablet (5 mg total) by mouth 3 (three) times a day as needed for nausea. 30 tablet 06/30/2018 Active Additional Information Patient not taking.Reported on 01/13/2023 diphenhydrAMINE (BENADRYL) 25 mg capsule Take 25 mg by mouth. 12/15/2014 Acti ve cholecalciferol (VITAMIN D3) 2,000 Unit tablet Take 2,000 Units by mouth daily. Active oxybutynin (DITROPAN-XL) 5 mg 24 hr tablet Take 1 tablet (5 mg total) by mouth daily. 90 tablet 3 11/04/2019 Active Additional Information Patient not taking.Reported on 01/13/2023 PARoxetine (PAXIL) 40 mg tablet TAKE 1 TABLET BY MOUTH EVERY DAY 30 tablet 02/22/2020 Active budesonide-formote roL (SYMBICORT) 80-4.5 mcg/actuation inhaler Inhale 2 puffs 2 (two) times a day. Rinse mouth with water after use to reduce aftertaste and incidence of candidiasis. Do not swallow. Active levETIRAcetam (KEPPRA) 750 mg tablet Take 750 mg by mouth 2 (two) times a day. Active levothyroxine (SYNTHROID, LEVOTHROID) 150 mcg tablet Take 150 mcg by mouth every morning before breakfast. Active albuterol 90 mcg/actuation inhaler Inhale every 6 (six) hours as needed for wheezing. Active montelukast (SINGULAIR) 10 mg tablet Take 10 mg by mouth at bedtime. Active solifenacin (VESICARE) 10 mg tablet Take 10 mg by mouth daily. Active Active Problems Problem Noted Date Diagnosed [...] Sex Assigned at Female 06/02/2018 2:11 PM MARINE PILOT Gender Identity Female 06/02/2018 2:11 PM MARINE PILOT Sexual Orientation Choose not to disclose 2018 2:11 PM MARINE PILOT Last Filed Vital Signs Vital Sign Reading [...] history exists Medical Devices Implanted Type Area Curriculum Director Device Identifier Shelf Expiration Date Model / Serial / Lot Ear Implant- 011 Implanted:11/24 (Quantity not on file) Ear Implant Ear Olympus Bernice Vega TORP Plasti-pore [id number] / / [id number] Description:[facility], [place], [place]. Ear implant-Vega TOPR Plasti-pore MRI Safe Procedures Procedure Name Priority Date/Time Associated Diagnosis Comments EXTI THYROID-STIMULATING HORMONE-SENSITIVE (S-TSH), S Routine 06/10/2023 3:22 PM MARINE PILOT EXTI LIPID PANEL W REFLEX MEASURED LDL Routine 03/19/2023 12:35 PM CDT EXTI BASIC METABOLIC PANEL, S/P Routine 03/19/2023 12:35 PM CDT from Last 3 Months or Most Recently Relevant to Health Maintenance Care Teams Mixer Whipped Topping Relationship Specialty Start Date End Date Elsewhere, Pcp PCP - General Internal Medicine 12/04/18
--- OUTSIDE RECORDS SUMMARY | 2023-09-07 10:46 | XMS_ITS | Referral Summary ---
Author Name Unknown Organization [facility] Address [address] [place] [address] Care Team Providers Care Muleser Name Role Phone Elsewhere, Pcp Primary Care Provider Unavailabl e Source Comments Patient records contain information from all sites at [facility]. For routine questions regarding patient records, call [phone] during business hours, M-F 8:00 AM - 5:00 PM Central Time. Record requests for emergency care only can be directed to [phone] at any time.[facility] Allergies Active Allergy Reactions Criticality Noted Date [...] Assigned at Female 06/02/2018 2:11 PM MACHINE OPERATOR ASSISTANT Gender Identity Female 06/02/2018 2:11 PM MACHINE OPERATOR ASSISTANT Sexual Orientation Choose not to disclose 2018 2:11 PM MACHINE OPERATOR ASSISTANT Last Filed Vital Signs Vital Sign Reading [...] on file Medical Devices Implanted Type Area Sub Plant Manager Device Identifier Shelf Expiration Date Model / Serial / Lot Ear Implant- 011 Implanted:11/24 (Quantity not on file) Ear Implant Ear Olympus Bernice Vega TORP Plasti-pore [id number] / / [id number] Description:[facility], [place], [place]. Ear implant-Vega TOPR Plasti-pore MRI Safe Procedures Procedure Name Priority Date/Time Associated Diagnosis Comments EXTI THYROID-STIMULATING HORMONE-SENSITIVE (S-TSH), S Routine 06/10/2023 3:22 PM MACHINE OPERATOR ASSISTANT EXTI LIPID PANEL W REFLEX MEASURED LDL Routine 03/19/2023 12:35 PM CDT EXTI BASIC METABOLIC PANEL, S/P Routine 03/19/2023 12:35 PM CDT from Last 3 Months or Most Recently Relevant to Health Maintenance Care Teams Muleser Relationship Specialty Start Date End Date Elsewhere, Pcp PCP - General Internal Medicine 12/04/18
== END 2023-09-02 20:52 | disposition home or self-care (01) ==
LOC: AMB 09-07 10:44
PROVIDERS: PCP Family Medicine; Visit Provider Family Medicine
DX: R06.09 Other forms of dyspnea (principal)
CPT/HCPCS: A0425; A0427

== ENCOUNTER 2023-09-02 21:06 | Emergency (ER) | payer MEDICAID, SELFPAY ==
[2023-09-02 21:12] VITALS: BP 127/83; PULSE 97; RESP 18; TEMP 36.5; O2SAT 93; BMI 50.0
--- NOTE | 2023-09-02 22:18 | ED_ITS ---
HPI - General Adult General Time Seen by Provider: 22:28 Date Seen: 09/02/23 Chief complaint: Unspecified Complaint, Adult Stated complaint: Flu-like symptoms Time Seen by Provider: 09/02/23 22:18 Source: patient, RN notes reviewed and old records reviewed Mode of arrival: ambulatory Limitations: no limitations History of Present Illness HPI narrative: 48-year-old female who presents today with upper respiratory infection symptoms. Says this is been going on for couple of weeks. She notes cough, congestion, and some shortness of breath. She has a history of asthma, wears oxygen chronically. No chest pain, no fevers, no nausea, vomiting, diarrhea. No lower extremity swelling. Related Data Home Medications Medication Instructions Recorded Confirmed albuterol sulfate 90 mcg/actuation 2 puff inhalation Q4H PRN 11/30/21 05/10/23 aerosol inhaler mirabegron 50 mg tablet,extended 50 mg PO DAILY 11/30/21 05/10/23 release 24 hr (Myrbetriq) montelukast 10 mg tablet 10 mg PO HS 11/30/21 01/30/23 omeprazole 20 mg capsule,delayed 40 mg PO DAILY 02/26/22 05/10/23 release levetiracetam 750 mg tablet 750 mg PO BID 11/25/22 05/10/23 (Keppra) solifenacin 10 mg tablet 10 mg PO DAILY 11/25/22 05/10/23 cholecalciferol (vitamin D3) 50 50 mcg PO DAILY 01/30/23 05/10/23 mcg (2,000 unit) capsule levothyroxine 125 mcg tablet 125 mcg PO QAM 01/30/23 05/10/23 paroxetine HCl 40 mg tablet 40 mg PO DAILY 01/30/23 05/10/23 terbinafine HCl 1 % topical cream applic topical BID 02/01/23 Previous Rx's Medication Instructions Recorded albuterol sulfate 2.5 mg/3 mL 2.5 mg (3 mL) inhalation Q8H PRN 02/02/23 (0.083 %) solution for nebulization #1 mL budesonide-formoterol HFA 160 2 puff inhalation BID #1 g 02/02/23 mcg-4.5 mcg/actuation aerosol inhaler (Symbicort) furosemide 40 mg tablet 40 mg PO DAILY #30 tabs 02/02/23 ipratropium 0.5 mg-albuterol 3 mg 3 ml inhalation Q6-8H PRN #90 mL 02/02/23 (2.5 mg base)/3 mL nebulization soln potassium chloride 10 mEq 20 meq (2 x 10 mEq) PO DAILY #60 02/02/23 capsule,extended release caps prednisone 20 mg tablet 40 mg (2 x 20 mg) PO DAILYWM #2 02/02/23 tabs tiotropium bromide 2.5 2 puff inhalation DAILY #1 g 02/02/23 mcg/actuation mist for inhalation (Spiriva Respimat) furosemide 40 mg tablet 40 mg PO DAILY #33 tabs 03/06/23 potassium chloride 20 mEq 20 meq PO DAILY #33 tabs 03/06/23 tablet,extended release Allergies Allergy/AdvReac Type Severity Reaction Status Date / Time azithromycin Allergy Intermediate Bloody Verified 05/10/23 20:01 Stools latex Allergy Intermediate Rash Verified 05/10/23 20:01 oxycodone Allergy Intermediate Agitated Verified 05/10/23 20:01 scopolamine Allergy Intermediate Tremors Verified 05/10/23 20:01 basil Allergy Rash Verified 05/10/23 20:01 acetaminophen [From Percocet] AdvReac Confusion Verified 05/10/23 20:01 [facility] Medical History Hypothyroidism ?E03.9 - Hypothyroidism, unspecified (ICD-10) Acute and chronic respiratory failure with hypoxia ?J96.21 - Acute and chronic respiratory failure with hypoxia (ICD-10) 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 - Unspecified convulsions (ICD-10) RODRICK (obstructive sleep apnea) ?G47.33 - Obstructive sleep apnea (adult) (pediatric) (ICD-10) ADHD ?F90.9 - Attention-deficit hyperactivity disorder, unspecified type (ICD-10) Hyperthyroidism ?E05.90 - Thyrotoxicosis, unspecified without thyrotoxic crisis or storm (ICD-10) Hydrocephalus ?G91.9 - Hydrocephalus, unspecified (ICD-10) Hyperlipidemia ?E78.5 - Hyperlipidemia, unspecified (ICD-10) Anxiety and depression ?F41.9 - Anxiety disorder, unspecified (ICD-10) ?F32.A - Depression, unspecified (ICD-10) Asthma ?J45.909 - Unspecified asthma, uncomplicated (ICD-10) Surgical History History of ear surgery ?Z98.890 - Other specified postprocedural states (ICD-10) History of strabismus surgery ?Z98.890 - Other specified postprocedural states (ICD-10) Social History Narrative: on disability since 2009; lives alone with her cat. nonsmoker, no drugs, no significant tobacco history adopted, her two adopted aunts are her family contacts. What is your current living situation?: I presently have a place to live Problems where you live: no known problems Problems where you live details: None In the past 12 months, utilities in danger of being shut off: no In past 12 months, lack of transportation kept you from medical appts, meetings, work, or getting things needed for daily living: no In the past 12 mos, have been you worried that your food would run out before you had money to buy more?: never true In the past 12 mos, the food you bought just didn't last and you didn't have money to buy more?: never true Highest level of school completed/degree received: Associate degree: academic program Smoking Status: Never smoker Do you use any of these nicotine containing products: None Second hand tobacco smoke exposure: No How often do you have a drink containing alcohol: never How often do you have six or more drinks on one occasion: Never AUDIT-C Alcohol total score: 0 Non-prescribed substance use: denies use Caffeine: Yes (Pop ocassionally) How often does anyone, including family, friends and others, physically hurt you : never How often does anyone, including family, friends and others, insult or talk down to you: never How often does anyone, including family, friends and others, threaten you with harm: never How often does anyone, including family, friends and others, scream or curse at you: never service: No Exam Narrative: Exam Narrative: General: Well-developed and well-nourished, no acute distress Head: Atraumatic and normocephalic Eyes: Pupils are equal reactive, extraocular motions intact, conjunctiva clear ENT: External nose and ears are normal, posterior pharynx without erythema or exudate Neck: No midline cervical tenderness, full spontaneous range of motion the neck, trachea midline, no adenopathy Heart: Regular rate and rhythm no murmurs or thrills Lungs: Bilateral expiratory wheezes with crackles in the right base Abdomen: Soft, nontender, nondistended with active bowel sounds Musculoskeletal: No tenderness, deformity, or edema Neurologic: Awake, alert, and oriented x3, no gross focal neurologic deficits, cranial nerves intact as tested Psych: Mood and affect are appropriate Skin: No rashes Const: Vital Signs, click to edit/add: Vital Signs - 24 hr 09/02/23 21:12 Temperature 97.7 F Pulse Rate [Left P ulse Oximeter] 97 Respiratory Rate 18 Blood Pressure [Ri ght Upper Arm] 127/83 Pulse Oximetry 93 Oxygen Delivery Me thod Room Air Course Course ED Course: Patient seen examined, presents with upper respiratory symptoms going on for couple of weeks, does have a history of asthma. On exam here is a congestion and cough, also trace expiratory wheezes and some crackles in the right base, no lower extremity edema. Labs independently interpreted by me with negative respiratory panel, no influenza, no COVID, no RSV. Harris are most consistent with viral process and now with likely secondary pneumonia. Patient will be started on prednisone, Augmentin, and doxycycline and discharged. Patient is finally stable with no hypoxia or respiratory distress. Vital Signs Vital signs: Initial Vital Signs Temperature 97.7 F 09/02/23 21:12 Temperature Source Temporal Artery Scan 09/02/23 21:12 Pulse Rate 97 09/02/23 21:12 Pulse Rhythm Regular 09/02/23 21:12 Pulse Strength 3+ Normal 09/02/23 21:12 Respiratory Rate 18 09/02/23 21:12 Blood Pressure 127/83 09/02/23 21:12 Blood Pressure Mean 97 09/02/23 21:12 Blood Pressure Position Sitting 09/02/23 21:12 Pulse Oximetry 93 09/02/23 21:12 Oxygen Delivery Method Room Air 09/02/23 21:12 Vital Signs Temperature 97.7 F 09/02/23 21:12 Pulse Rate 97 09/02/23 21:12 Respiratory Rate 18 09/02/23 21:12 Blood Pressure 127/83 09/02/23 21:12 Pulse Oximetry 93 09/02/23 21:12 Oxygen Delivery Method Room Air 09/02/23 21:12 Temperature 97.7 F 09/02/23 21:12 Pulse Rate 97 09/02/23 21:12 Respiratory Rate 18 09/02/23 21:12 Blood Pressure 127/83 09/02/23 21:12 Pulse Oximetry 93 09/02/23 21:12 Oxygen Delivery Method Room Air 09/02/23 21:12 Medical Decision Making Lab Data Labs: Lab Results 09/02/23 Range/Units 21:26 SARS-CoV-2 (PCR) Negative SARS-CoV-2 (Negative) Influenza Type A (PCR) Negative PCR FLU A (Negative) Influenza Type B (PCR) Negative PCR FLU B (Negative) RSV (PCR) Negative PCR RSV (Negative) Discharge Plan Discharge Clinical Impression: Community acquired pneumonia, Asthma Patient Disposition: Home, Self-Care Condition: Improved Instructions: Asthma (DC), Community Acquired Pneumonia (DC) Additional Instructions: Take antibiotics and prednisone as prescribed Albuterol nebulizer treatment or 2 puffs of inhaler every 2 hours while awake for 24 hours, then every 3 hours while awake for 24 hours, and then every 4 hours as needed Follow-up with your primary care doctor this week Activity Level: Activity as Tolerated Discharge Diet: Regular Prescriptions: No Action levetiracetam [Keppra] 750 mg tablet 750 mg PO BID solifenacin 10 mg tablet 10 mg PO DAILY furosemide 40 mg tablet 40 mg PO DAILY Qty: 33 0RF Rx Instructions: Take one table twice a day for three days starting 03/07/2023, then once a day after that potassium chloride 20 mEq tablet extended release 20 meq PO DAILY Qty: 33 0RF Rx Instructions: Take one tablet twice a day for three days starting 03/07/2023, then once a day after that montelukast 10 mg tablet 10 mg PO HS Myrbetriq 50 mg tablet extended release 24 hr 50 mg PO DAILY Patient Comments: albuterol sulfate 90 mcg/actuation HFA aerosol inhaler 2 puff INHALATION Q4H PRN levothyroxine 125 mcg tablet 125 mcg PO QAM cholecalciferol (vitamin D3) 50 mcg (2,000 unit) capsule 50 mcg PO DAILY paroxetine HCl 40 mg tablet 40 mg PO DAILY Patient Comments: terbinafine HCl 1 % cream topical BID furosemide 40 mg Tablet 40 mg PO DAILY Qty: 30 0RF prednisone 20 mg Tablet 40 mg PO DAILYWM Qty: 2 0RF potassium chloride 10 mEq capsule, extended release 20 meq PO DAILY Qty: 60 2RF albuterol sulfate 2.5 mg /3 mL (0.083 %) solution for nebulization 2.5 mg inhalation Q8H PRNQty: 1 0RF budesonide-formoterol [Symbicort] 160-4.5 mcg/actuation HFA aerosol inhaler 2 puff INHALATION BID Qty: 1 0RF Spiriva Respimat 2.5 mcg/actuation mist 2 puff inhalation DAILY Qty: 1 0RF ipratropium-albuterol 0.5 mg-3 mg(2.5 mg base)/3 mL solution for nebulization 3 ml inhalation Q6-8H PRNQty: 90 0RF omeprazole 20 mg capsule,delayed release(DR/EC) 40 mg PO DAILY Follow Up/Referrals: Geronimo Lamb MD [Primary Care Provider] - Stand Alone Forms: [facility] Info Instructions
[2023-09-02 22:20] LABS: PCR FLU A Negative PCR FLU A (Negative); PCR FLU B Negative PCR FLU B (Negative); PCR RSV Negative PCR RSV (Negative); SARS PCR* Negative SARS-CoV-2 (Negative)
--- OUTSIDE RECORDS SUMMARY | 2023-09-02 23:25 | XMS_ITS ---
Author Name Unknown Organization [facility] Address [address] [place] [address] Care Team Providers Care Life Science Taxonomist Name Role Phone Elsewhere, Pcp Primary Care Provider Unavailabl e Transplant Episode Lung Candidate [facility] ([place], [place]) - [facility] Referred on 03/27/2023 Marked as Ineligible on 07/14/2023 Reason: Unable to Contact Patient Lung CoordinatorCoordinator Transplant, R.N. Phone: N/A Fax: N/A Email: N/A Care Team Name Role Phone Fax Email Coordinator Transplant, R.N. Lung Coordinator N/A N /A N/A Events Pre-Transplant Referred: 03/27/2023
--- OUTSIDE RECORDS SUMMARY | 2023-09-02 23:25 | XMS_ITS | Clinical Summary ---
Author Name Unknown Organization [facility] Address [place], [place] [address] Care Team Providers Care Maintenance Repairer Name Role Phone Paolo Limon MD Unavailable Talon Durham MD Unavailable [phone] Laura Gardner PsyD, Unavailable [phone] Geronimo Lamb MD Primary Care Provider Allergies [...] Dispensed Refills Start Date End Date Status [facility], medication convention planner with alarm 1 unit 0 04/22/2014 [...] 160-4.5 mcg/actuation (160-4.5 mcg each actuation) inhaler 03/01/2021 Active cholecalciferol, Vitamin D3, 2,000 unit tablet Take 2,000 units by mouth. Active omeprazole (PriLOSEC) 20 mg Delayed-Release capsuleIndications [...] order for oxygen is canceled 1 unit 12/10/2022 Active Additional Information Patient taking differently: Oxygen is 24 hours a day, Reported on 08/04/2023 terbinafine 1% cream (LAMISIL) 1 % creamIndications:I ntertrigo Apply topically to affected area(s) two times daily. 80 g 3 01/14/2023 Active Diaper,Brief, Adult,DisposableIn dications:Urge urinary incontinence For home use. Size large. 60 Each 11 01/15/2023 Active PARoxetine (PAXIL) 40 mg tabletIndications: Anxiety and depression TAKE 1 TABLET BY MOUTH EVERY DAY IN THE MORNING 90 Tablet 1 02/01/2023 Active tiotropium (SPIRIVA HANDIHALER) 18 mcg inhalation [...] a meal. 180 Tablet 3 03/06/2023 Active mirabegron EXTENDED-release (MYRBETRIQ) 50 mg tabletIndications: Urge urinary incontinence Take 1 Tablet (50 mg) by mouth once daily. 90 Tablet 04/02/2023 Active albuterol HFA (PRO-AIR; VENTOLIN; PROVENTIL) 90 mcg/actuation inhalerIndications :Moderate persistent asthma, uncomplicated INHALE 1 TO 2 PUFFS BY MOUTH EVERY 4 HOURS NEEDED FOR SHORTNESS OF BREATH 1ST CHOICE 17 Each 3 04/25/2023 Active levETIRAcetam (KEPPRA) 750 mg tabletIndications: Seizure (HC) Take 1 Tablet (750 mg) by mouth two times daily. 60 Tablet 3 05/27/2023 Active CPAPIndications:OS A (obstructive sleep apnea) CPAP machine for home use at pressure 13cmw, full face mask x1/3month with a full face cushion x1/mo 1 Each 11 07/24/2023 Active levothyroxine (SYNTHROID) 100 mcg tabletIndications: Hypothyroidism (acquired) Take 1 Tablet (100 mcg) by mouth before breakfast. 60 Tablet 5 08/05/2023 Active levothyroxine (SYNTHROID) 112 mcg tabletIndications: Hypothyroidism (acquired) Take 1 Tablet (112 mcg) by mouth before breakfast. 60 Tablet 5 03/20/2023 4 Discontinu ed(Reorder (E-cancel not sent)) Active Problems Problem Noted Date Diagnosed Date Hypothyroidism (acquired) 09/01/2023 Heart failure with preserved ejection fraction, unspecified [...] Anxiety and depression Dizziness Overview: Eval by [facility] neurology 2018. Thought to be functional. Referred [...] Encounters Date Type Department Care Team Description 09/01/2023 2:55 PM CDT Office Visit [facility] [address] [facility] [place] [address] Geronimo Lamb MD Form (For assisted living) 09/01/2023 Travel 08/05/2023 Orders Only [facility] [address] [place] [address] Geronimo Lamb MD <No scans attached> 08/04/2023 2:55 PM CDT Office Visit [facility] [address] [place] [address] Geronimo Lamb MD Fall (Fell to floor in bedroom, tripped over oxygen tubing when getting up, 07/31/2023); Medication Management; Results (Go over lab results) 08/04/2023 Travel 07/25/2023 Nurse Triage [facility] [address] [place] [address] Geronimo Lamb MD Medication Management 07/24/2023 3:00 PM STEP DOWN SPECIALIST Office Visit [facility] [address] [place] [address] Paolo Limon MD Sleep Follow-up 07/24/2023 Travel 07/22/[address] [address] Heather Howe AuD Hearing Aid 07/17/2023 3:00 PM STEP DOWN SPECIALIST Office Visit [address] [address] Jasmyne Amaya MD Consult (Cholesteatoma, unspecified laterality [H71.90]) 07/17/2023 2:30 PM STEP DOWN SPECIALIST Office Visit [address] [address] Heather Howe, Eyad Hearing Problem (Hearing test ) 07/17/2023 Travel 07/11/2023 Nurse Triage [facility] [address] [place] [address] Geronimo Lamb MD Elbow Pain/problem 07/11/2023 Telephone [facility] [address] [place] [address] Geronimo Lamb MD Appointment Request 06/10/2023 2:05 PM STEP DOWN SPECIALIST Office Visit [facility] [address] [place] [address] Geronimo Lamb MD Ear Problem (Left ear pain, started about a week ago); Dizziness (Spinning and non-spinning, started about a month ago); Headache (Off and on started about 6 weeks ago) 06/10/2023 Travel 06/08/2023 Orders Only [facility] Scanner 1 scan: (1-Ord) [facility], XR CHEST 2V, 06/08/2023 from Last 3 Months Immunizations Name Administration Dates Next Due COVID-19 Vaccine Spikevax (M oderna 50mcg/0.5mL) 12YO+ 3330-2625 Formula PF 03/19/2023 COVID-19 vaccine (Pfizer-Bio NTech 30mcg/0.3mL) 12YO+ BIVALENT PF, MDV 05/01/2022 COVID-19 vaccine (Dmailer NTech 30mcg/0.3mL) 12YO+ VAL-SUCROSE PF, MDV 08/29/2021 [...] Sign Reading Time Taken Comments Blood Pressure 142/90 09/01/2023 3:04 PM CDT Pulse 102 09/01/2023 3:04 PM CDT Temperature 36.7 ??C (98.1 ??F) 05/15/2023 1:42 PM CS T Respiratory Rate 90 06/10/2023 2:35 PM STEP DOWN SPECIALIST Oxygen Saturation 91% 09/01/2023 3:04 PM CDT Inhaled Oxygen Concentration - - Weight 106.9 kg (235 lb 9.6 oz) 09/01/2023 3:04 PM CDT Height 142.2 cm (4' 8) 07/24/2023 2:36 PM STEP DOWN SPECIALIST Body Mass Index 52.82 07/24/2023 2:36 PM STEP DOWN SPECIALIST Plan of Treatment Upcoming Encounters Date Type Department Care Team (Late st Contact Info) Description 10/29/2023 2:30 PM CDT Orders Only [facility] [address] [place] [address] Lab, [place] 10/29/2023 3:00 PM CDT Office Visit [facility] [address] [place] [address] Paolo Limon MD [address] [place] [address] 11/05/2023 11:40 AM CDT Office Visit [facility] [address] [place] [address] Dread Villavicencio MD [address] [place] [address] Health Maintenance Due Date Last Done Comments Pap test for age 21-65 04/16/2014 04/16/2011 (Declin ed) Tetanus booster 10/29/2020 10/29/2010 Colonoscopy through age 75 2022 Mammogram for age 45-75 2022 02/24/2019, 02/16 Depression screening for age 12+ 10/10/2023 10/09/2022, 08/14/2022, 04/23/2021, Additional history exists Influenza for age 9-49 01/25/2024 , 05/01/2022, 03/09/2018, Additional history exists BMI (ht and wt on same day) for age 18+ 07/23/2024 07/24/2023, 02/10/2023, 12/10/2022, Additional history exists Lipids for age 45-75 03/19/2028 03/19/2023, 08/29/2021, 06/03/2014, Additional history exists Tdap Completed 10/29/2010 Hepatitis C screening for ag e 18-79 Completed 12/05/2021 HIV for age 15-65 Completed 05/01/2022 Pneumococcal series for age 6-64 Completed 01/15/20 23, 09/14/2013 COVID-19 vaccine series Completed 03/19/20, 05/01/2022, 08/29/2021, Additional history exists Procedures Procedure Name Priority Date/Time Associated Diagnosis Comments T4,FREE Routine 08/04/2023 3:49 PM CDT Hypothyroidism (acquired) TSH WITH REFLEX Routine 08/04/2023 3:49 PM CDT Hypothyroidism (acquired) TSH WITH REFLEX Routine 06/10/2023 3:22 PM STEP DOWN SPECIALIST Hypothyroidism (acquired) SCAN-RADIOLOGY REPORT 06/08/2023 12:00 AM STEP DOWN SPECIALIST LIPID PANEL W REFLEX MEASURED LDL Routine 03/19/2023 12:35 PM CDT Hyperlipidemia, unspecified hyperlipidemia type ANTI HIV 1/2 Routine 05/01/2022 4:36 PM STEP DOWN SPECIALIST Encounter for screening for HIV ANTI HCV Routine 12/05/2021 9:30 AM CDT Need for hepatitis C screening test SCAN-MAMMOGRAPHY REPORT 02/24/2019 12:00 AM CDT from Last 3 Months or Most Recently Relevant to Health Maintenance Results * (ABNORMAL) TSH WITH REFLEX (08/04/2023 3:49 PM CDT) Only the most recent of2 resultswithin the time period is included. TSH 0.08(L) 0.27 - 4.20 uIU/mL 08/05/2023 1:54 PM CDT [facility] Blood BLOOD SPECIMEN / Unknown Butterfly / Unknown 08/04/2023 3:49 PM CDT 08/04/2023 3:50 PM CDT Narrative [facility] - 08/05/2023 1:54 PM CDT In Adults, TSH values between 5.00 and 10.00 uIU/ml do not necessarily indicate the presence of Hypothyroidism. Correlation with clinical findings such as presence of goiter and/or Thyroperoxidase (TPO) Antibody may be helpful. For more information please refer to SIVAN 2004; 291: 228-238. Geronimo Lamb MD CHEMISTRY Performing Organization Address City/[facility]/ZIP Co de Phone Number [facility] [address] [place] [address], * T4,FREE (08/04/2023 3:49 PM CDT) T4,FREE 1.27 0.93 - 1.70 ng/dL 08/05/2023 2:29 PM CDT [facility] Blood BLOOD SPECIMEN / Unknown Butterfly / Unknown 08/04/2023 3:49 PM CDT 08/04/2023 3:50 PM CDT Geronimo Lamb MD CHEMISTRY [facility] [address] [place] [address], * SCAN-RADIOLOGY REPORT (06/08/2023 12:00 AM STEP DOWN SPECIALIST) Anatomical Region Laterality Modality Other Scanner OTHER * (ABNORMAL) LIPID PANEL W REFLEX MEASURED LDL (03/19/2023 12:35 PM CDT) CHOLESTEROL,TOTAL 258(H) 100 - 199 mg/dL 03/20/2023 8:11 AM CDT [facility] Comment: Cholesterol, Total Reference Ranges Desirable <200 mg/dL Borderline 200-239 mg/dL High >=240 mg/dL TRIGLYCERIDES 159(H) <150 mg/dL 03/20/2023 8:11 AM CDT [facility] HDL CHOLESTEROL 55 >40 mg/dL 8:11 AM CDT [facility] NON-HDL CHOLESTEROL 203(H) <145 mg/dl 03/20/2023 8:11 AM CDT [facility] CHOL/HDL RATIO 4.69(H) <4.50 03/20/2023 8:11 AM CDT [facility] LDL CHOLESTEROL 171(H) <=130 mg/dL 03/20/2023 8:11 AM CDT [facility] VLDL CHOLESTEROL 32(H) <=30 mg/dL 03/20/2023 8:11 AM CDT [facility] PROVIDER ORDERED STATUS RANDOM 03/20/2023 8:11 AM T [facility] Blood BLOOD SPECIMEN / Unknown Butterfly / Unknown 03/19/2023 12:35 PM CDT 03/19/2023 12:38 PM CDT Geronimo Lamb MD CHEMISTRY [facility] [address] [place] [address], [place] * ANTI HIV 1/2 (05/01/2022 4:36 PM STEP DOWN SPECIALIST) HIV-1/HIV-2 ANTIBODY Non-Reacti ve Non-Reacti ve 05/04/2022 9:59 PM STEP DOWN SPECIALIST [facility] Comment:HIV-1 p24 and HIV-1/ HIV-2 Ab not detected. Blood BLOOD SPECIMEN / Unknown Butterfly / Unknown 05/01/2022 4:36 PM STEP DOWN SPECIALIST 05/01/2022 4:41 PM STEP DOWN SPECIALIST Geronimo Lamb MD SEND OUTS [facility] [address] [place] [address], [place] * ANTI HCV (12/05/2021 9:30 AM CDT) HEPATITIS C ANTIBODY Non-React shikha Non-React shikha 12/05/2021 9:16 PM CDT [facility] Comment:Antibodies to HCV no t detected; does not exclude the possibility of exposure to HCV. Blood BLOOD SPECIMEN / Unknown Venipuncture / Unknown 12/05/2021 9:30 AM CDT 12/05/2021 9:33 AM CDT Geronimo Lamb MD SEND OUTS [facility] [address] [place] [address], * SCAN-MAMMOGRAPHY REPORT (02/24/2019 12:00 AM CDT) Anatomical Region Laterality Modality Other Scanner OTHER from Last 3 Months or Most Recently Relevant to Health Maintenance Care Teams Maintenance Repairer Relationship Specialty Start Date End Date Geronimo Lamb MD [address] [place] [address] PCP - General Family Practice 04/23/21 Paolo Limon MD Sleep Medicine 10/28/11 Talon Durham MD Neurology Neurology 11/26/11 Laura Gardner PsyD, [facility] Psychology 09/14/13
--- OUTSIDE RECORDS SUMMARY | 2023-09-02 23:25 | XMS_ITS ---
Author Name Unknown Organization [facility] Address [address] [place] [address] Care Team Providers Care Parts Sales Counterperson Name Role Phone Unavailable Unavailable Unavailable Surgery Details Not on file Complications Check Surgery Details section. Procedure Estimated Blood Loss Check Surgery Details section. Procedure Findings Check Surgery Details section. Procedure Specimens Taken Check Surgery Details section.
--- OUTSIDE RECORDS SUMMARY | 2023-09-02 23:25 | XMS_ITS | Clinical Summary ---
Author Name Unknown Organization [facility] Address [address] [place] [address] Care Team Providers Care Fund Manager Name Role Phone Elsewhere, Pcp Primary Care Provider Unavailabl e Source Comments Patient records contain information from all sites at [facility]. For routine questions regarding patient records, call [phone] during business hours, M-F 8:00 AM - 5:00 PM Central Time. Record requests for emergency care only can be directed to [phone] at any time.[facility] Allergies Active Allergy Reactions Criticality Noted [...] Sex Assigned at Female 06/02/2018 2:11 PM INTERACTIVE MEDIA MARKETING DIRECTOR Gender Identity Female 06/02/2018 2:11 PM INTERACTIVE MEDIA MARKETING DIRECTOR Sexual Orientation Choose not to disclose 2018 2:11 PM INTERACTIVE MEDIA MARKETING DIRECTOR Last Filed Vital Signs Vital Sign Reading [...] Depression Monitoring (PHQ-9) 1977 FIT 1977 Hepatitis C Screening 1977 Mammogram 1977 Office Visit for Blood Press ure Check / Re-check 1977 Hepatitis B Vaccines (1 of 3 - 19+ 3-dose series) 1996 Asthma Control Test Questionnaire 01/14/2017 017, 03/26/2016 Cervical Cancer Screening 02/23/20182014 (Performed elsewhere), 04/16/2014 Asthma Action Plan 01/14/2019 01/14/2018, 0 12/03/2016, 03/18/2016 DTaP,Tdap,and Td Vaccines (2 - Td or Tdap) 10/29/2020 10/29/2010 Creatinine Level (Kidney Fun ction Test) 03/19/2024 03/19/2023, 05/01/2022, 03/11/2018, Additional history exists Lipid (Cholesterol) Screening 03/19/2024, 08/29/2021, 06/10/2016 Potassium Level 03/19/2024 03/19/2023, 12/0 11/2021, 03/11/2018, Additional history exists Sodium Level 03/19/2024 03/19/2023, 12/0 11/2021, 03/11/2018, Additional history exists Thyroid Stimulating Hormone (TSH) test for thyroid function 06/10/2024 06/10/2023, 03/19/2023, 01/14/2023, Additional history exists Fasting Glucose for Diabetes Screening 03/19/2026 03/19/2023, 05/01/2022, 03/11/2018, Additional history exists Pneumococcal vaccine (0-64 years) Completed 023, 09/14/2013 COVID-19 Vaccine Completed 03/19/2023, 11/2021, 08/29/2021, Additional history exists Influenza Vaccine Completed 03/19/2023, , 03/09/2018, Additional history exists Medical Devices Implanted Type Area Service Station Operator Device Identifier Shelf Expiration Date Model / Serial / Lot Ear Implant- [id number] Implanted:11/24 (Quantity not on file) Ear Implant Ear Olympus Bernice Vega TORP Plasti-pore [id number] / / [id number] Description:[place], [place]. Ear implant-Vega TOPR Plasti-pore MRI Safe Care Teams Fund Manager Relationship Specialty Start Date End Date Elsewhere, Pcp PCP - General Internal Medicine 12/04/18
--- OUTSIDE RECORDS SUMMARY | 2023-09-02 23:25 | XMS_ITS | Referral Summary ---
Author Name Unknown Organization [facility] Address [address] [place] [address] Care Team Providers Care Tourist Guide Name Role Phone Elsewhere, Pcp Primary Care Provider Unavailabl e Source Comments Patient records contain information from all sites at [facility]. For routine questions regarding patient records, call [phone] during business hours, M-F 8:00 AM - 5:00 PM Central Time. Record requests for emergency care only can be directed to [phone] at any time.[facility] Allergies Active Allergy Reactions Criticality [...] Sex Assigned at Female 06/02/2018 2:11 PM ENGLISH LECTURER Gender Identity Female 06/02/2018 2:11 PM ENGLISH LECTURER Sexual Orientation Choose not to disclose 2018 2:11 PM ENGLISH LECTURER Last Filed Vital Signs Vital Sign Reading [...] on file Medical Devices Implanted Type Area Bobbin Presser Device Identifier Shelf Expiration Date Model / Serial / Lot Ear Implant- 011 Implanted:11/24 (Quantity not on file) Ear Implant Ear Olympus Bernice Vega TORP Plasti-pore [id number] / / [id number] Description:[facility], [place], [place]. Ear implant-Vega TOPR Plasti-pore MRI Safe Care Teams Tourist Guide Relationship Specialty Start Date End Date Elsewhere, Pcp PCP - General Internal Medicine 12/04/18
--- OUTSIDE RECORDS SUMMARY | 2023-09-02 23:25 | XMS_ITS | Encounter Summary ---
Author Name Unknown Organization [facility] Address [address] [place] [address] Care Team Providers Care Team Automobile Assembler Name Role Phone Elsewhere, Pcp Primary Care Provider Unavailabl e Reason for Visit * Reason Onset Date Comments Treatment Questions 05/21/2023 Encounter Details Date Type Department Care Team (Latest Contact Info) Description 05/21/2023 Clinical Communication [facility] in [place], [place] [address] [place] [address] Violetta Mitchell R.N. [address] [place] [phone] Treatment Questions Social History Tobacco Use Types [...] Sex Assigned at Female 06/02/2018 2:11 PM ENDOSCOPY TECH Gender Identity Female 06/02/2018 2:11 PM ENDOSCOPY TECH Sexual Orientation Choose not to disclose 2018 2:11 PM ENDOSCOPY TECH documented as of this encounter Plan of Treatment Not on file documented as of this encounter Visit Diagnoses Not on filedocumented in this encounter Additional Health Concerns Assessment Noted Time PHQ-9 Depression Total Score: 14 10/27/ 019 3:26 PM CDT documented as of this encounter Care Teams Team Automobile Assembler Relationship Specialty Start Date End Date Elsewhere, Pcp PCP - General Internal Medicine 12/04/18 documented as of this encounter
[2023-09-02] MEDS: IPRAT-ALBUT 0.5-2.5 MG/3 ML NEB 1 NEB IH (23:41)
[2023-09-03] MEDS: predniSONE 20 MG TABLET 40 MG PO (00:10)
[2023-09-03] MEDS: AMOXICILLIN/CLAVULANATE 875 mg/125 mg TABLET PO (00:10)
[2023-09-03] MEDS: DOXYCYCLINE HYCLATE 100 MG PO (00:10)
[2023-09-03 00:31] VITALS: O2SAT 97
[2023-09-03 01:54] VITALS: PULSE 80; O2SAT 96
== END 2023-09-03 01:54 | disposition home or self-care (01) ==
PROVIDERS: Emergency Provider Family Medicine; PCP Family Medicine
DX: J18.9 Pneumonia, unspecified organism (principal); J45.909 Unspecified asthma, uncomplicated
CPT/HCPCS: 87631; 94640; 99283; 99284; A9270; J7512

== ENCOUNTER 2023-09-03 01:51 | Outpatient (CLI) | payer MEDICARE, MEDICAID, SELFPAY ==
--- OUTSIDE RECORDS SUMMARY | 2023-09-08 12:38 | XMS_ITS | Encounter Summary ---
Author Name Unknown Organization [facility] Address [address] [place] [address] Care Team Providers Care Government Affairs Manager Name Role Phone Elsewhere, Pcp Primary Care Provider Unavailabl e Reason for Visit * Reason Onset Date Comments Treatment Questions 05/21/2023 Encounter Details Date Type Department Care Team (Latest Contact Info) Description 05/21/2023 Clinical Communication [facility] C [facility] [place] [facility] Clinical Regeneration in [place], [place] [address] [place] [address] Violetta Mitchell R.N. [address] [place] [phone] Treatment Questions Social History Tobacco Use Types [...] Sex Assigned at Female 06/02/2018 2:11 PM WASTE DISPOSAL PLANT OPERATOR Gender Identity Female 06/02/2018 2:11 PM WASTE DISPOSAL PLANT OPERATOR Sexual Orientation Choose not to disclose 2018 2:11 PM WASTE DISPOSAL PLANT OPERATOR documented as of this encounter Plan of Treatment Not on file documented as of this encounter Visit Diagnoses Not on filedocumented in this encounter Additional Health Concerns Assessment Noted Time PHQ-9 Depression Total Score: 14 10/27/ 019 3:26 PM CDT documented as of this encounter Care Teams Government Affairs Manager Relationship Specialty Start Date End Date Elsewhere, Pcp PCP - General Internal Medicine 12/04/18 documented as of this encounter
--- OUTSIDE RECORDS SUMMARY | 2023-09-08 12:38 | XMS_ITS ---
Author Name Unknown Organization [facility] Address [address] [place] [address] Care Team Providers Care Supervisor Machine Setter Name Role Phone Unavailable Unavailable Unavailable Surgery Details Not on file Complications Check Surgery Details section. Procedure Estimated Blood Loss Check Surgery Details section. Procedure Findings Check Surgery Details section. Procedure Specimens Taken Check Surgery Details section.
--- OUTSIDE RECORDS SUMMARY | 2023-09-08 12:38 | XMS_ITS | Clinical Summary ---
Author Name Unknown Organization [facility] Address [address] [place] [address] Care Team Providers Care Paperboard Box Maker Name Role Phone Elsewhere, Pcp Primary Care Provider Unavailabl e Source Comments Patient records contain information from all sites at [facility]. For routine questions regarding patient records, call [phone] during business hours, M-F 8:00 AM - 5:00 PM Central Time. Record requests for emergency care only can be directed to [phone] at any time.[facility] Allergies Active Allergy Reactions Criticality Noted [...] Sex Assigned at Female 06/02/2018 2:11 PM CANDLEMAKER Gender Identity Female 06/02/2018 2:11 PM CANDLEMAKER Sexual Orientation Choose not to disclose 2018 2:11 PM CANDLEMAKER Last Filed Vital Signs Vital Sign Reading [...] history exists Medical Devices Implanted Type Area Eye Specialist Device Identifier Shelf Expiration Date Model / Serial / Lot Ear Implant- 011 Implanted:11/24 (Quantity not on file) Ear Implant Ear Olympus Bernice Vega TORP Plasti-pore [id number] / / [id number] Description:[facility], [place], [place]. Ear implant-Vega TOPR Plasti-pore MRI Safe Procedures Procedure Name Priority Date/Time Associated Diagnosis Comments EXTI THYROID-STIMULATING HORMONE-SENSITIVE (S-TSH), S Routine 06/10/2023 3:22 PM CANDLEMAKER EXTI LIPID PANEL W REFLEX MEASURED LDL Routine 03/19/2023 12:35 PM CDT EXTI BASIC METABOLIC PANEL, S/P Routine 03/19/2023 12:35 PM CDT from Last 3 Months or Most Recently Relevant to Health Maintenance Care Teams Paperboard Box Maker Relationship Specialty Start Date End Date Elsewhere, Pcp PCP - General Internal Medicine 12/04/18
--- OUTSIDE RECORDS SUMMARY | 2023-09-08 12:38 | XMS_ITS ---
Author Name Unknown Organization [facility] Address [address] [place] [address] Care Team Providers Care Try Out Person Name Role Phone Elsewhere, Pcp Primary Care Provider Unavailabl e Transplant Episode Lung Candidate [facility] ([place], [place]) - [facility] Referred on 03/27/2023 Marked as Ineligible on 07/14/2023 Reason: Unable to Contact Patient Lung CoordinatorCoordinator Transplant, R.N. Phone: N/A Fax: N/A Email: N/A Care Team Name Role Phone Fax Email Coordinator Transplant, R.N. Lung Coordinator N/A N /A N/A Events Pre-Transplant Referred: 03/27/2023
--- OUTSIDE RECORDS SUMMARY | 2023-09-08 12:38 | XMS_ITS | Clinical Summary ---
Author Name Unknown Organization [facility] Address [place], [place] [address] Care Team Providers Care Customer Specialist Name Role Phone Paolo Limon MD Unavailable Talon Durham MD Unavailable [phone] Laura Gardner PsyD, Unavailable [phone] Geronimo Lamb MD Primary Care Provider Allergies [...] Dispensed Refills Start Date End Date Status 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 Thought to be functional. Referred [...] Description 09/01/2023 2:55 PM CDT Office Visit [facility] [place] [address] [address] Geronimo Lamb MD Form (For assisted living) 09/01/2023 Travel 08/05/2023 Orders Only [facility] [place] [address] [address] Geronimo Lamb MD <No scans attached> 08/04/2023 2:55 PM CDT Office Visit [facility] [place] [address] [address] Geronimo Lamb MD Fall (Fell to floor in bedroom, tripped over oxygen tubing when getting up, 07/31/2023); Medication Management; Results (Go over lab results) 08/04/2023 Travel 07/25/2023 Nurse Triage [facility] [place] [address] [address] Geronimo Lamb MD Medication Management 07/24/2023 3:00 PM TREASURY ASSOCIATE Office Visit [place] [address] [address] Paolo Limon MD Sleep Follow-up 07/24/2023 Travel 07/22/[address] [place] [address] Heather Howe AuD Hearing Aid 07/17/2023 3:00 PM TREASURY ASSOCIATE Office Visit [address] [place] [address] Jasmyne Amaya MD Consult (Cholesteatoma, unspecified laterality [H71.90]) 07/17/2023 2:30 PM TREASURY ASSOCIATE Office Visit [address] [place] [address] Heather Howe AuD Hearing Problem (Hearing test ) 07/17/2023 Travel 07/11/2023 Nurse Triage [facility] [address] [place] [address] Geronimo Lamb MD Elbow Pain/problem 07/11/2023 Telephone [facility] [address] [place] [address] Geronimo Lamb MD Appointment Request 06/10/2023 2:05 PM TREASURY ASSOCIATE Office Visit [facility] [address] [place] [address] Geronimo Lamb MD Ear Problem (Left ear pain, started about a week ago); Dizziness (Spinning and non-spinning, started about a month ago); Headache (Off and on started about 6 weeks ago) 06/10/2023 Travel from Last 3 Months Immunizations Name Administration Dates Next Due COVID-19 Vaccine Spikevax (M oderna 50mcg/0.5mL) 12YO+ [id number] Formula PF 03/19/2023 COVID-19 vaccine (Magoosh-Bio NTech 30mcg/0.3mL) 12YO+ BIVALENT PF, MDV 05/01/2022 COVID-19 vaccine (Magoosh-Bio NTech 30mcg/0.3mL) 12YO+ VAL-SUCROSE PF, MDV 08/29/2021 [...] T Respiratory Rate 90 06/10/2023 2:35 PM TREASURY ASSOCIATE Oxygen Saturation 91% 09/01/2023 3:04 PM CDT Inhaled Oxygen Concentration - - Weight 106.9 kg (235 lb 9.6 oz) 09/01/2023 3:04 PM CDT Height 142.2 cm (4' 8) 07/24/2023 2:36 PM TREASURY ASSOCIATE Body Mass Index 52.82 07/24/2023 2:36 PM TREASURY ASSOCIATE Plan of Treatment Upcoming Encounters Date Type Department Care Team (Late st Contact Info) Description 10/29/2023 2:30 PM CDT Orders Only [facility] [address] [place] [address] [place], [place] 10/29/2023 3:00 PM CDT Office Visit [facility] [address] [place] [address] Paolo Limon MD [address] [place] [address] 11/05/2023 11:40 AM CDT Office Visit [facility] [address] [place] [address] Dread Villavicencio MD [address] [place] [address] Health Maintenance Due Date Last Done Comments [...] TSH WITH REFLEX Routine 06/10/2023 3:22 PM TREASURY ASSOCIATE Hypothyroidism (acquired) LIPID PANEL W REFLEX MEASURED LDL Routine 03/19/2023 12:35 PM CDT Hyperlipidemia, unspecified hyperlipidemia type ANTI HIV 1/2 Routine 05/01/2022 4:36 PM TREASURY ASSOCIATE Encounter for screening for HIV ANTI HCV [...] - 4.20 uIU/mL 08/05/2023 1:54 PM CDT [facility] Blood BLOOD SPECIMEN / Unknown Butterfly / Unknown 08/04/2023 3:49 PM CDT 08/04/2023 3:50 PM CDT [facility] LABORATORY - 08/05/2023 1:54 PM CDT In Adults, TSH values between 5.00 and 10.00 uIU/ml do not necessarily indicate the presence of Hypothyroidism. Correlation with clinical findings such as presence of goiter and/or Thyroperoxidase (TPO) Antibody may be helpful. For more information please refer to SIVAN 2004; 291: 228-238. Geronimo Lamb MD CHEMISTRY Performing Organization Address City/[facility]/ZIP Co de Phone Number [facility] [address] [place] [address], * T4,FREE (08/04/2023 3:49 PM CDT) T4,FREE 1.27 0.93 - 1.70 ng/dL 08/05/2023 2:29 PM CDT [facility] Blood BLOOD SPECIMEN / Unknown Butterfly / Unknown 08/04/2023 3:49 PM CDT 08/04/2023 3:50 PM CDT Geronimo Lamb MD CHEMISTRY Performing Organization Address [facility]/ZIP Co de Phone Number [facility] [address] [place] [address], * (ABNORMAL) LIPID PANEL W REFLEX MEASURED LDL (03/19/2023 12:35 PM CDT) CHOLESTEROL,TOTAL 258(H) 100 - 199 mg/dL 03/20/2023 8:11 AM CDT [facility] [employer] [facility] TRAL LABORATORY Comment: Cholesterol, Total Reference Ranges Desirable <200 mg/dL Borderline 200-239 mg/dL High >=240 mg/dL TRIGLYCERIDES 159(H) <150 mg/dL 03/20/2023 8:11 AM CDT [facility] [employer] LABORATORY-[facility] TRAL LABORATORY HDL CHOLESTEROL 55 >40 mg/dL 8:11 AM CDT [facility] TRAL LABORATORY NON-HDL CHOLESTEROL 203(H) <145 mg/dl 03/20/2023 8:11 AM CDT [facility] [employer] [facility] TRAL LABORATORY CHOL/HDL RATIO 4.69(H) <4.50 03/20/2023 8:11 AM CDT [facility] TRAL LABORATORY LDL CHOLESTEROL 171(H) <=130 mg/dL 03/20/2023 8:11 AM CDT [facility] TRAL LABORATORY VLDL CHOLESTEROL 32(H) <=30 mg/dL 03/20/2023 8:11 AM CDT [facility] LABORATORY PROVIDER ORDERED STATUS RANDOM 03/20/2023 8:11 AM CDT [facility]ORAT[facility] Blood BLOOD SPECIMEN / Unknown Butterfly / Unknown 03/19/2023 12:35 PM CDT 03/19/2023 12:38 PM CDT Geronimo Lamb MD CHEMISTRY [facility] LABORAT[facility] [address] [place] [address], [place] * ANTI HIV 1/2 (05/01/2022 4:36 PM TREASURY ASSOCIATE) Pathologist [facility] HIV-1/HIV-2 ANTIBODY Non-Reacti ve Non-Reacti ve 05/04/2022 9:59 PM TREASURY ASSOCIATE [facility] LABORAT[facility] Comment:HIV-1 p24 and HIV-1/ HIV-2 Ab not detected. Blood BLOOD SPECIMEN / Unknown Butterfly / Unknown 05/01/2022 4:36 PM TREASURY ASSOCIATE 05/01/2022 4:41 PM TREASURY ASSOCIATE Geronimo Lamb MD SEND OUTS Performing Organization Address [facility]/ZIP Co de Phone Number [facility] LABORATORY [address] [place] [address], [place] * ANTI HCV (12/05/2021 9:30 AM CDT) Pathologist [facility] HEPATITIS C ANTIBODY Non-React shikha Non-React shikha 12/05/2021 9:16 PM CDT [facility] LABORATORY Comment:Antibodies to HCV no t detected; does not exclude the possibility of exposure to HCV. Blood BLOOD SPECIMEN / Unknown Venipuncture / Unknown 12/05/2021 9:30 AM CDT 12/05/2021 9:33 AM CDT Geronimo Lamb MD SEND OUTS [facility] LABORATORY-CENTRAL LABORATORY [address] [place] [address], [place] * SCAN-MAMMOGRAPHY REPORT (02/24/2019 12:00 AM CDT) Anatomical Region Laterality Modality Other Scanner OTHER from Last 3 Months or Most Recently Relevant to Health Maintenance Care Teams Customer Specialist Relationship Specialty Start Date End Date Geronimo Lamb MD [address] [place] [address] PCP - General Family Practice 04/23/21 Paolo Limon MD Sleep Medicine 10/28/11 Talon Durham MD Neurology Neurology 11/26/11 Laura Gardner PsyD, [facility] Psychology 09/14/13
--- OUTSIDE RECORDS SUMMARY | 2023-09-08 12:38 | XMS_ITS | Referral Summary ---
Author Name Unknown Organization [facility] Address [address] [place] [address] Care Team Providers Care Cell Feed Department Supervisor Name Role Phone Elsewhere, Pcp Primary Care Provider Unavailabl e Source Comments Patient records contain information from all sites at [facility]. For routine questions regarding patient records, call [phone] during business hours, M-F 8:00 AM - 5:00 PM Central Time. Record requests for emergency care only can be directed to [phone] at any time.[facility] Allergies Active Allergy Reactions Criticality [...] Sex Assigned at Female 06/02/2018 2:11 PM SPEECH AND HEARING CLINIC DIRECTOR Gender Identity Female 06/02/2018 2:11 PM SPEECH AND HEARING CLINIC DIRECTOR Sexual Orientation Choose not to disclose 2018 2:11 PM SPEECH AND HEARING CLINIC DIRECTOR Last Filed Vital Signs Vital Sign [...] on file Medical Devices Implanted Type Area Cloth Washer Operator Device Identifier Shelf Expiration Date Model / Serial / Lot Ear Implant- 011 Implanted:11/24 (Quantity not on file) Ear Implant Ear Olympus Bernice Vega TORP Plasti-pore [id number] / / [id number] Description:[facility], [place], [place]. Ear implant-Vega TOPR Plasti-pore MRI Safe Procedures Procedure Name Priority Date/Time Associated Diagnosis Comments EXTI THYROID-STIMULATING HORMONE-SENSITIVE (S-TSH), S Routine 06/10/2023 3:22 PM SPEECH AND HEARING CLINIC DIRECTOR EXTI LIPID PANEL W REFLEX MEASURED LDL Routine 03/19/2023 12:35 PM CDT EXTI BASIC METABOLIC PANEL, S/P Routine 03/19/2023 12:35 PM CDT from Last 3 Months or Most Recently Relevant to Health Maintenance Care Teams Cell Feed Department Supervisor Relationship Specialty Start Date End Date Elsewhere, Pcp PCP - General Internal Medicine 12/04/18
== END 2023-09-03 01:52 | disposition home or self-care (01) ==
LOC: AMB 09-08 12:36
PROVIDERS: PCP Family Medicine; Visit Provider Family Medicine
DX: J18.9 Pneumonia, unspecified organism (principal); Z99.3 Dependence on wheelchair
CPT/HCPCS: A0425; A0428

== ENCOUNTER 2023-09-29 15:11 | Outpatient (CLI) | payer MEDICAID, SELFPAY ==
--- OUTSIDE RECORDS SUMMARY | 2023-10-02 07:32 | XMS_ITS | Encounter Summary ---
Author Name Unknown Organization [facility] Address [address] [place] [address] Care Team Providers Care Cuff Runner Name Role Phone Elsewhere, Pcp Primary Care Provider Unavailabl e Reason for Visit * Reason Onset Date Comments Treatment Questions 05/21/2023 Encounter Details Date Type Department Care Team (Latest Contact Info) Description 05/21/2023 Clinical Communication [facility] in [place], [place] [address] [place] [address] Violetta Mitchell R.N. [address] [place] [phone] Treatment Questions Social History Tobacco Use Types [...] Sex Assigned at Female 06/02/2018 2:11 PM MIG TIG WELDER Gender Identity Female 06/02/2018 2:11 PM MIG TIG WELDER Sexual Orientation Choose not to disclose 2018 2:11 PM MIG TIG WELDER documented as of this encounter Plan of Treatment Not on file documented as of this encounter Visit Diagnoses Not on filedocumented in this encounter Additional Health Concerns Assessment Noted Time PHQ-9 Depression Total Score: 14 10/27/ 019 3:26 PM CDT documented as of this encounter Care Teams Cuff Runner Relationship Specialty Start Date End Date Elsewhere, Pcp PCP - General Internal Medicine 12/04/18 documented as of this encounter
--- OUTSIDE RECORDS SUMMARY | 2023-10-02 07:32 | XMS_ITS ---
Author Name Unknown Organization [facility] Address [address] [place] [address] Care Team Providers Care Developer Architect Name Role Phone Unavailable Unavailable Unavailable Surgery Details Not on file Complications Check Surgery Details section. Procedure Estimated Blood Loss Check Surgery Details section. Procedure Findings Check Surgery Details section. Procedure Specimens Taken Check Surgery Details section.
--- OUTSIDE RECORDS SUMMARY | 2023-10-02 07:32 | XMS_ITS | Clinical Summary ---
Author Name Unknown Organization [facility] Address [address] [place] [address] Care Team Providers Care Process Operator Name Role Phone Elsewhere, Pcp Primary Care Provider Unavailabl e Source Comments Patient records contain information from all sites at [facility]. For routine questions regarding patient records, call [phone] during business hours, M-F 8:00 AM - 5:00 PM Central Time. Record requests for emergency care only can be directed to [phone] at any time.[facility] Allergies Active Allergy Reactions Criticality Noted [...] Unspeci fied 04/25/2009 Apnea Sleep Obstructive 04/10/2009 Major Depressive Disorder, Recurrent, Unspecifie d 02/23/2009 Gastroesophageal Reflux Disease NOS 02/23/2009 Resolved [...] Sex Assigned at Female 06/02/2018 2:11 PM PHARMACY GRADUATE INTERN Gender Identity Female 06/02/2018 2:11 PM PHARMACY GRADUATE INTERN Sexual Orientation Choose not to disclose 2018 2:11 PM PHARMACY GRADUATE INTERN Last Filed Vital Signs Vital Sign Reading [...] 3 - 19+ 3-dose series) 1996 Asthma Management/Exacerbati on Questionnaire (AMQ/AEQ) 11/06/2016 Asthma Control Test Questionnaire 01/14/2017 017, 03/26/2016 [...] history exists Medical Devices Implanted Type Area Executive Account Manager Device Identifier Shelf Expiration Date Model / Serial / Lot Ear Implant- 011 Implanted:11/24 (Quantity not on file) Ear Implant Ear Olympus Bernice Vega TORP Plasti-pore [id number] / / [id number] Description:[place], [place]. Ear implant-Vega TOPR Plasti-pore MRI Safe Procedures Procedure Name Priority Date/Time Associated Diagnosis Comments EXTI THYROID-STIMULATING HORMONE-SENSITIVE (S-TSH), S Routine 06/10/2023 3:22 PM PHARMACY GRADUATE INTERN EXTI LIPID PANEL W REFLEX MEASURED LDL Routine 03/19/2023 12:35 PM CDT EXTI BASIC METABOLIC PANEL, S/P Routine 03/19/2023 12:35 PM CDT from Last 3 Months or Most Recently Relevant to Health Maintenance Care Teams Process Operator Relationship Specialty Start Date End Date Elsewhere, Pcp PCP - General Internal Medicine 12/04/18
--- OUTSIDE RECORDS SUMMARY | 2023-10-02 07:32 | XMS_ITS ---
Author Name Unknown Organization [facility] Address [address] [place] [address] Care Team Providers Care Allergist/Immunologist Physician Name Role Phone Elsewhere, Pcp Primary Care Provider Unavailabl e Transplant Episode Lung Candidate [facility] ([place], [place]) - [facility] Referred on 03/27/2023 Marked as Ineligible on 07/14/2023 Reason: Unable to Contact Patient Lung CoordinatorCoordinator Transplant, R.N. Phone: N/A Fax: N/A Email: N/A Care Team Name Role Phone Fax Email Coordinator Transplant, R.N. Lung Coordinator N/A N /A N/A Events Pre-Transplant Referred: 03/27/2023
--- OUTSIDE RECORDS SUMMARY | 2023-10-02 07:32 | XMS_ITS | Referral Summary ---
Author Name Unknown Organization [facility] Address [address] [place] [address] Care Team Providers Care Electrical Panel Builder Name Role Phone Elsewhere, Pcp Primary Care Provider Unavailabl e Source Comments Patient records contain information from all sites at [facility]. For routine questions regarding patient records, call [phone] during business hours, M-F 8:00 AM - 5:00 PM Central Time. Record requests for emergency care only can be directed to [phone] at any time.[facility] Allergies Active Allergy Reactions Criticality Noted Date [...] Sex Assigned at Female 06/02/2018 2:11 PM BRAIDER OPERATOR Gender Identity Female 06/02/2018 2:11 PM BRAIDER OPERATOR Sexual Orientation Choose not to disclose 2018 2:11 PM BRAIDER OPERATOR Last Filed Vital Signs Vital Sign Reading [...] on file Medical Devices Implanted Type Area Biomedical Equipment Tech Device Identifier Shelf Expiration Date Model / Serial / Lot Ear Implant- 011 Implanted:11/24 (Quantity not on file) Ear Implant Ear Olympus Bernice Vega TORP Plasti-pore [id number] / / [id number] Description:[facility], [place], [place]. Ear implant-Vega TOPR Plasti-pore MRI Safe Procedures Procedure Name Priority Date/Time Associated Diagnosis Comments EXTI THYROID-STIMULATING HORMONE-SENSITIVE (S-TSH), S Routine 06/10/2023 3:22 PM BRAIDER OPERATOR EXTI LIPID PANEL W REFLEX MEASURED LDL Routine 03/19/2023 12:35 PM CDT EXTI BASIC METABOLIC PANEL, S/P Routine 03/19/2023 12:35 PM CDT from Last 3 Months or Most Recently Relevant to Health Maintenance Care Teams Electrical Panel Builder Relationship Specialty Start Date End Date Elsewhere, Pcp PCP - General Internal Medicine 12/04/18
--- OUTSIDE RECORDS SUMMARY | 2023-10-02 07:33 | XMS_ITS | Clinical Summary ---
Author Name Unknown Organization [facility] Address [place], [place] [address] Care Team Providers Care Personnel Technician Name Role Phone Paolo Limon MD Unavailable Talon Durham MD Unavailable [phone] Laura Gardner PsyD, Unavailable [phone] Geronimo Lamb MD Primary Care Provider Allergies [...] Dispensed Refills Start Date End Date Status [facility] Med Center, medication telecommunications network planner with alarm 1 unit 0 4 Active diphenhydrAMINE (BENADRYL) 25 mg capsule Take 1 capsule by mouth each time if needed. 0 5 Active albuterol (PROVENTIL) 0.083 % neb solutionIndication s:Moderate persistent asthma, uncomplicated Inhale 3 mL via a nebulizer every 6 hours if needed for Shortness Of Breath or Wheezing. 1 box 1 5 Active Symbicort 160-4.5 mcg/actuation (160-4.5 mcg each actuation) inhaler 1 Active cholecalciferol, Vitamin D3, 2,000 unit tablet Take 2,000 units by mouth. Active omeprazole (PriLOSEC) 20 mg Delayed-Release capsuleIndications :Chronic GERD Take 2 Capsules (40 mg) by mouth once daily before a meal. 180 Capsule 3 3 Active montelukast (SINGULAIR) 10 mg tabletIndications: Allergy, sequela Take 1 Tablet (10 mg) by mouth at bedtime. 90 Tablet 3 3 Active medication order composerIndication s:Nocturnal hypoxemia Oxygen is no longer needed at night- the order for oxygen is canceled 1 unit 3 Active Additional Information Patient taking differently: Oxygen is 24 hours a day, Reported on 08/04/2023 terbinafine 1% cream (LAMISIL) 1 % creamIndications:I ntertrigo Apply topically to affected area(s) two times daily. 80 g 3 3 Active Diaper,Brief, Adult,DisposableIn dications:Urge urinary incontinence For home use. Size large. 60 Each 11 3 Active PARoxetine (PAXIL) 40 mg tabletIndications: Anxiety and depression TAKE 1 TABLET BY MOUTH EVERY DAY IN THE MORNING 90 Tablet 1 3 Active tiotropium (SPIRIVA HANDIHALER) 18 mcg inhalation capsuleIndications :Severe persistent asthma, unspecified whether complicated Inhale 1 Capsule (18 mcg) by mouth once daily. Using a SPRIVA HANDIHALER fischer the capsule, then by mouth breathe in the powder. Inhale twice from the same capsule for full dose. 90 Capsule 3 3 Active furosemide (LASIX) 40 mg tabletIndications: SOB (shortness of breath) Take 1 Tablet (40 mg) by mouth every morning. 90 Tablet 3 3 Active potassium chloride (Klor-Con 10) 10 mEq extended-release tabletIndications: SOB (shortness of breath) Take 2 Tablets (20 mEq) by mouth once daily with a meal. 180 Tablet 3 3 Active mirabegron EXTENDED-release (MYRBETRIQ) 50 mg tabletIndications: Urge urinary incontinence Take 1 Tablet (50 mg) by mouth once daily. 90 Tablet 3 Active albuterol HFA (PRO-AIR; VENTOLIN; PROVENTIL) 90 mcg/actuation inhalerIndications :Moderate persistent asthma, uncomplicated INHALE 1 TO 2 PUFFS BY MOUTH EVERY 4 HOURS NEEDED FOR SHORTNESS OF BREATH 1ST CHOICE 17 Each 3 3 Active CPAPIndications:OS A (obstructive sleep apnea) CPAP machine for home use at pressure 13cmw, full face mask x1/3month with a full face cushion x1/mo 1 Each 11 4 Active levothyroxine (SYNTHROID) 100 mcg tabletIndications: Hypothyroidism (acquired) Take 1 Tablet (100 mcg) by mouth before breakfast. 60 Tablet 5 4 Active levETIRAcetam (KEPPRA) 750 mg tabletIndications: Seizure (HC) TAKE 1 TABLET (750 MG) BY MOUTH TWO TIMES DAILY. 180 Tablet 1 4 Active levETIRAcetam (KEPPRA) 750 mg tabletIndications: Seizure (HC) Take 1 Tablet (750 mg) by mouth two times daily. 60 Tablet 3 4 09/25/19 24 Discontinued Active Problems Problem Noted Date Diagnosed Date [...] Anxiety and depression Dizziness Overview: Eval by [facility] neurology 2018. Thought to be [...] Encounters Date Type Department Care Team Description 09/25/2023 Refill [facility] [place] [facility] [address] [place] [address] Dread Villavicencio MD Refill Request (Levetiracetam) 09/01/2023 2:55 PM CDT Office Visit [address] [address] Geronimo Lamb MD Form (For assisted living) 09/01/2023 Travel 08/05/2023 Orders Only [address] [address] Geronimo Lamb MD <No scans attached> 08/04/2023 2:55 PM CDT Office Visit [address] [address] Geronimo Lamb MD Fall (Fell to floor in bedroom, tripped over oxygen tubing when getting up, 07/31/2023); Medication Management; Results (Go over lab results) 08/04/2023 Travel 07/25/2023 Nurse Triage [facility] [address] [place] [address] Geronimo Lamb MD Medication Management 07/24/2023 3:00 PM WELL HEAD PUMPER Office Visit [facility] [address] [place] [address] Paolo Limon MD Sleep Follow-up 07/24/2023 Travel 07/22/[address] [address] Heather Howe AuD Hearing Aid 07/17/2023 3:00 PM WELL HEAD PUMPER Office Visit [address] [address] Jasmyne Amaya MD Consult (Cholesteatoma, unspecified laterality [H71.90]) 07/17/2023 2:30 PM WELL HEAD PUMPER Office Visit [address] [address] Heather Howe, Eyad Hearing Problem (Hearing test ) 07/17/2023 Travel 07/11/2023 Nurse Triage [facility] [address] [place] [address] Geronimo Lamb MD Elbow Pain/problem 07/11/2023 Telephone [facility] [address] [place] [address] Geronimo Lamb MD Appointment Request from Last 3 Months Immunizations Name Administration Dates Next Due COVID-19 Vaccine Spikevax (M oderna 50mcg/0.5mL) 12YO+ 2507-0570 Formula PF 03/19/2023 COVID-19 vaccine (Pfizer-Bio NTech 30mcg/0.3mL) 12YO+ BIVALENT PF, MDV 05/01/2022 COVID-19 vaccine (Pfizer-Bio NTech 30mcg/0.3mL) 12YO+ VAL-SUCROSE PF, MDV 08/29/2021 Influenza Virus, Unspecified 05/27/2014 Influenza, IIV3 (Age >=3 years) 12/30/20 14,06/09/2013,06/05/2012,2009 Influenza, IIV4 03/19/2023,,03/09/2018,2015,02/06/2015 Pneumococcal Conj 20-valent (Prevnar 20) 01/14/2023 Pneumococcal [...] T Respiratory Rate 90 06/10/2023 2:35 PM WELL HEAD PUMPER Oxygen Saturation 91% 09/01/2023 3:04 PM CDT Inhaled Oxygen Concentration - - Weight 106.9 kg (235 lb 9.6 oz) 09/01/2023 3:04 PM CDT Height 142.2 cm (4' 8) 07/24/2023 2:36 PM WELL HEAD PUMPER Body Mass Index 52.82 07/24/2023 2:36 PM WELL HEAD PUMPER Plan of Treatment Upcoming Encounters Date Type Department Care Team (Late st Contact Info) Description 10/29/2023 2:30 PM CDT Orders Only [facility] [address] [place] [address] [place], [place] 10/29/2023 3:00 PM CDT Office Visit [facility] [address] [place] [address] Paolo Limon MD 1400 [facility] [place] [address] 11/05/2023 11:40 AM CDT Office Visit [facility] Neuroscience [place] at [facility] [address] [place] [address] Dread Villavicencio MD [address] [place] [address] Health Maintenance Due Date Last Done Comments [...] Routine 08/04/2023 3:49 PM CDT Hypothyroidism (acquired) LIPID PANEL W REFLEX MEASURED LDL Routine 03/19/2023 12:35 PM CDT Hyperlipidemia, unspecified hyperlipidemia type ANTI HIV 1/2 Routine 05/01/2022 4:36 PM WELL HEAD PUMPER Encounter for screening for HIV ANTI HCV Routine 12/05/2021 9:30 AM CDT Need for hepatitis C screening test SCAN-MAMMOGRAPHY REPORT 02/24/2019 12:00 AM CDT from Last 3 Months or Most Recently Relevant to Health Maintenance Results * (ABNORMAL) TSH WITH REFLEX (08/04/2023 3:49 PM CDT) TSH 0.08(L) 0.27 - 4.20 uIU/mL 08/05/2023 1:54 PM CDT [facility] Blood BLOOD SPECIMEN / Unknown Butterfly / Unknown 08/04/2023 3:49 PM CDT 08/04/2023 3:50 PM CDT [facility] - 08/05/2023 1:54 PM CDT In Adults, TSH values between 5.00 and 10.00 uIU/ml do not necessarily indicate the presence of Hypothyroidism. Correlation with clinical findings such as presence of goiter and/or Thyroperoxidase (TPO) Antibody may be helpful. For more information please refer to SIVAN 2004; 291: 228-238. Geronimo Lamb MD CHEMISTRY [facility] [address] [place] [address], [place] * T4,FREE (08/04/2023 3:49 PM CDT) T4,FREE 1.27 0.93 - 1.70 ng/dL 08/05/2023 2:29 PM CDT [facility] Blood BLOOD SPECIMEN / Unknown Butterfly / Unknown 08/04/2023 3:49 PM CDT 08/04/2023 3:50 PM CDT Geronimo Lamb MD CHEMISTRY Performing Organization Address City/[facility]/ZIP Co de Phone Number [facility] [address] [place] [address], [place] * (ABNORMAL) LIPID PANEL W REFLEX MEASURED LDL (03/19/2023 12:35 PM CDT) CHOLESTEROL,TOTAL 258(H) 100 - 199 mg/dL 03/20/2023 8:11 AM CDT [facility] Comment: Cholesterol, Total Reference Ranges Desirable <200 mg/dL Borderline 200-239 mg/dL High >=240 mg/dL TRIGLYCERIDES 159(H) <150 mg/dL 03/20/2023 8:11 AM CDT [facility] HDL CHOLESTEROL 55 >40 mg/dL 8:11 AM CDT [facility] NON-HDL CHOLESTEROL 203(H) <145 mg/dl 03/20/2023 8:11 AM CDT [facility] CHOL/HDL RATIO 4.69(H) <4.50 03/20/2023 8:11 AM CDT [facility] LDL CHOLESTEROL 171(H) <=130 mg/dL 03/20/2023 8:11 AM CDT [facility] VLDL CHOLESTEROL 32(H) <=30 mg/dL 03/20/2023 8:11 AM CDT [facility] PROVIDER ORDERED STATUS RANDOM 03/20/2023 8:11 AM CDT [facility] Blood BLOOD SPECIMEN / Unknown Butterfly / Unknown 03/19/2023 12:35 PM CDT 03/19/2023 12:38 PM CDT Geronimo Lamb MD CHEMISTRY [facility] [address] [place] [address], [place] * ANTI HIV 1/2 (05/01/2022 4:36 PM WELL HEAD PUMPER) HIV-1/HIV-2 ANTIBODY Non-Reacti ve Non-Reacti ve 05/04/2022 9:59 PM WELL HEAD PUMPER [facility] Comment:HIV-1 p24 and HIV-1/ HIV-2 Ab not detected. Blood BLOOD SPECIMEN / Unknown Butterfly / Unknown 05/01/2022 4:36 PM WELL HEAD PUMPER 05/01/2022 4:41 PM WELL HEAD PUMPER Geronimo Lamb MD SEND OUTS [facility] [address] [place] [address], [place] * ANTI HCV (12/05/2021 9:30 AM CDT) HEPATITIS C ANTIBODY Non-React shikha Non-React shikha 12/05/2021 9:16 PM CDT [facility] Comment:Antibodies to HCV no t detected; does not exclude the possibility of exposure to HCV. Blood BLOOD SPECIMEN / Unknown Venipuncture / Unknown 12/05/2021 9:30 AM CDT 12/05/2021 9:33 AM CDT Geronimo Lamb MD SEND OUTS [facility] [address] [place] [address], [place] * SCAN-MAMMOGRAPHY REPORT (02/24/2019 12:00 AM CDT) Anatomical Region Laterality Modality Other Scanner OTHER from Last 3 Months or Most Recently Relevant to Health Maintenance Care Teams Personnel Technician Relationship Specialty Start Date End Date Geronimo Lamb MD [address] [place] [address] PCP - General Family Practice 04/23/21 Paolo Limon MD Sleep Medicine 10/28/11 Talon Durham MD Neurology Neurology 11/26/11 Laura Gardner PsyD, Psychology 09/14/13
== END 2023-09-29 15:12 | disposition home or self-care (01) ==
LOC: AMB 10-02 07:31
PROVIDERS: PCP Family Medicine; Visit Provider Emergency Medicine Emergency Medical Services
DX: R56.9 Unspecified convulsions (principal)
CPT/HCPCS: A0998

== ENCOUNTER 2023-10-16 05:10 | Outpatient (CLI) | payer MEDICAID, SELFPAY ==
--- OUTSIDE RECORDS SUMMARY | 2023-10-21 13:06 | XMS_ITS | Clinical Summary ---
Author Organization [facility] Address [place], [place] [address] Care Team Providers Care Card Grinder Helper Name Role Phone Paolo Limon MD Unavailable Talon Durham MD Unavailable [phone] Laura GardneryD, Unavailable [phone] Geronimo Lamb MD Primary Care Provider Allergies [...] Dispensed Refills Start Date End Date Status [facility], medication airport planner with alarm 1 unit 0 4 [...] depression Dizziness Overview: Eval by [facility] neurology 2018. Thought to be functional. [...] Description 10/14/2023 9:30 AM CDT Office Visit [facility] [address] [place] [address] Ángel Campos AuD Hearing Aid 10/14/2023 Telephone [facility] [address] [place] [address] Ángel Campos AuD Ear Problem 10/14/2023 Nurse Triage [facility] Nurse Triage Geronimo Lamb MD Mouth/Lip Problem 10/14/2023 Travel 10/09/2023 Refill [facility] [address] [place] [address] Geronimo Lamb MD Refill Request (Paroxetine) 10/06/2023 Refill [facility] [address] [place] [address] Geronimo Lamb MD Refill Request (Myrbetriq, Omeprazole, Montelukast) 09/25/2023 Refill [facility] [place] [facility] [address] [place] [address] Dread Villavicencio MD Refill Request (Levetiracetam) 09/01/2023 2:55 PM CDT Office Visit [address] [address] Geronimo Lamb MD Form (For assisted living) 09/01/2023 Travel 08/05/2023 Orders Only [address] [address] Geronimo Lamb MD <No scans attached> 08/04/2023 2:55 PM CDT Office Visit [address] [address] Geronimo Lamb MD Fall (Fell to floor in bedroom, tripped over oxygen tubing when getting up, 07/31/2023); Medication Management; Results (Go over lab results) 08/04/2023 Travel 07/25/2023 Nurse Triage [address] [address] Geronimo Lamb MD Medication Management 07/24/2023 3:00 PM DISPATCHER TUGBOAT Office Visit [facility] [address] [place] [address] Poalo Limon MD Sleep Follow-up 07/24/2023 Travel from Last 3 Months Immunizations Name Administration Dates Next Due COVID-19 Vaccine Spikevax (M oderna 50mcg/0.5mL) 12YO+ [id number] Formula PF 03/19/2023 COVID-19 vaccine (Leaderz NTech 30mcg/0.3mL) 12YO+ BIVALENT PF, MDV 05/01/2022 COVID-19 vaccine (Leaderz NTech 30mcg/0.3mL) 12YO+ VAL-SUCROSE PF, MDV 08/29/2021 [...] T Respiratory Rate 90 06/10/2023 2:35 PM DISPATCHER TUGBOAT Oxygen Saturation 91% 09/01/2023 3:04 PM CDT Inhaled Oxygen Concentration - - Weight 106.9 kg (235 lb 9.6 oz) 09/01/2023 3:04 PM CDT Height 142.2 cm (4' 8) 07/24/2023 2:36 PM DISPATCHER TUGBOAT Body Mass Index 52.82 07/24/2023 2:36 PM DISPATCHER TUGBOAT Plan of Treatment Upcoming Encounters Date Type Department Care Team (Late st Contact Info) Description 10/29/2023 2:30 PM CDT Orders Only [facility] [address] [place] [address] [place], [place] 10/29/2023 3:00 PM CDT Office Visit [facility] [address] [place] [address] Paolo Limon MD [address] [place] [address] 10/31/2023 2:05 PM CDT Office Visit [facility] [address] [place] [address] Geronimo Lamb MD [address] [place] [address] 11/05/2023 11:40 AM CDT Office Visit [facility] [place] [facility] [address] [place] [address] Dread Villavicencio MD [address] [place] [address] 11/18/2023 8:15 AM CDT Office Visit [facility] [address] [place] [address] Jasmyne Amaya MD [address] [facility] [address] [place], [place] [id number] Health Maintenance Due Date Last Done Comments [...] ANTI HIV 1/2 Routine 05/01/2022 4:36 PM DISPATCHER TUGBOAT Encounter for screening for HIV ANTI HCV Routine 12/05/2021 9:30 AM CDT Need for hepatitis C screening test SCAN-MAMMOGRAPHY REPORT 02/24/2019 12:00 AM CDT from Last 3 Months or Most Recently Relevant to Health Maintenance Results * (ABNORMAL) TSH WITH REFLEX (08/04/2023 3:49 PM CDT) TSH 0.08(L) 0.27 - 4.20 uIU/mL 08/05/2023 1:54 PM CDT [facility] Blood BLOOD SPECIMEN / Unknown Butterfly / Unknown 08/04/2023 3:49 PM CDT 08/04/2023 3:50 PM CDT Narrative [facility] - 08/05/2023 1:54 PM CDT In Adults, TSH values between 5.00 and 10.00 uIU/ml do not necessarily indicate the presence of Hypothyroidism. Correlation with clinical findings such as presence of goiter and/or Thyroperoxidase (TPO) Antibody may be helpful. For more information please refer to SIVAN 2004; 291: 228-238. Geronimo Lamb MD CHEMISTRY Performing Organization Address City/[facility]/ZIP Co de Phone Number [facility] [address] [place] [address], * T4,FREE (08/04/2023 3:49 PM CDT) T4,FREE 1.27 0.93 - 1.70 ng/dL 08/05/2023 2:29 PM CDT [facility] Blood BLOOD SPECIMEN / Unknown Butterfly / Unknown 08/04/2023 3:49 PM CDT 08/04/2023 3:50 PM CDT Geronimo Lamb MD CHEMISTRY Performing Organization Address City/[facility]/ZIP Co de Phone Number [facility] [address] [place] [phone], * (ABNORMAL) LIPID PANEL W REFLEX MEASURED LDL (03/19/2023 12:35 PM CDT) CHOLESTEROL,TOTAL 258(H) 100 - 199 mg/dL 03/20/2023 8:11 AM CDT [facility] Comment: Cholesterol, Total Reference Ranges Desirable <200 mg/dL Borderline 200-239 mg/dL High >=240 mg/dL TRIGLYCERIDES 159(H) <150 mg/dL 03/20/2023 8:11 AM CDT [facility] HDL CHOLESTEROL 55 >40 mg/dL 8:11 AM CDT [facility] NON-HDL CHOLESTEROL 203(H) <145 mg/dl 03/20/2023 8:11 AM CDT [facility] CHOL/HDL RATIO 4.69(H) <4.50 03/20/2023 8:11 AM CDT [facility] LDL CHOLESTEROL 171(H) <=130 mg/dL 03/20/2023 8:11 AM CDT [facility] VLDL CHOLESTEROL 32(H) <=30 mg/dL 03/20/2023 8:11 AM CDT [facility] PROVIDER ORDERED STATUS RANDOM 03/20/2023 8:11 AM CDT [facility] Blood BLOOD SPECIMEN / Unknown Butterfly / Unknown 03/19/2023 12:35 PM CDT 03/19/2023 12:38 PM CDT Geronimo Lamb MD CHEMISTRY [facility] [address] [place] [address], * ANTI HIV 1/2 (05/01/2022 4:36 PM DISPATCHER TUGBOAT) HIV-1/HIV-2 ANTIBODY Non-Reacti ve Non-Reacti ve 05/04/2022 9:59 PM DISPATCHER TUGBOAT [facility] Comment:HIV-1 p24 and HIV-1/ HIV-2 Ab not detected. Blood BLOOD SPECIMEN / Unknown Butterfly / Unknown 05/01/2022 4:36 PM DISPATCHER TUGBOAT 05/01/2022 4:41 PM DISPATCHER TUGBOAT Geronimo Lamb MD SEND OUTS [facility] [address] [place] [address], * ANTI HCV (12/05/2021 9:30 AM CDT) HEPATITIS C ANTIBODY Non-React shikha Non-React shikha 12/05/2021 9:16 PM CDT [facility] Comment:Antibodies to HCV no t detected; does not exclude the possibility of exposure to HCV. Blood BLOOD SPECIMEN / Unknown Venipuncture / Unknown 12/05/2021 9:30 AM CDT 12/05/2021 9:33 AM CDT Geronimo Lamb MD SEND OUTS Performing Organization Address City/[facility]/ZIP Co de Phone Number [facility] [address] [place] [address], * SCAN-MAMMOGRAPHY REPORT (02/24/2019 12:00 AM CDT) Anatomical Region Laterality Modality Other Scanner OTHER from Last 3 Months or Most Recently Relevant to Health Maintenance Care Teams Card Grinder Helper Relationship Specialty Start Date End Date Geronimo Lamb MD [address] [place] [address] PCP - General Family Practice 04/23/21 Paolo Limon MD Sleep Medicine 10/28/11 Talon Durham MD Neurology Neurology 11/26/11 Laura Gardner PsyD, [facility] Psychology 09/14/13
--- OUTSIDE RECORDS SUMMARY | 2023-10-21 13:06 | XMS_ITS ---
Author Organization [facility] Address [address] [place] [address] Care Team Providers Care Checkman Name Role Phone Elsewhere, Pcp Primary Care Provider Unavailabl e Transplant Episode Lung Candidate [facility] ([place], [place]) - [facility] Referred on 03/27/2023 Marked as Ineligible on 07/14/2023 Reason: Unable to Contact Patient Lung CoordinatorCoordinator Transplant, R.N. Phone: N/A Fax: N/A Email: N/A Care Team Name Role Phone Fax Email Coordinator Transplant, R.N. Lung Coordinator N/A N /A N/A Events Pre-Transplant Referred: 03/27/2023
--- OUTSIDE RECORDS SUMMARY | 2023-10-21 13:06 | XMS_ITS | Referral Summary ---
Author Organization [facility] Address [address] [place] [address] Care Team Providers Care Child Welfare Manager Name Role Phone Elsewhere, Pcp Primary Care Provider Unavailabl e Source Comments Patient records contain information from all sites at [facility]. For routine questions regarding patient records, call [phone] during business hours, M-F 8:00 AM - 5:00 PM Central Time. Record requests for emergency care only can be directed to [phone] at any time.[facility] Allergies Active Allergy Reactions Criticality Noted [...] Sex Assigned at Female 06/02/2018 2:11 PM BEHAVIORAL HEALTH TECH Gender Identity Female 06/02/2018 2:11 PM BEHAVIORAL HEALTH TECH Sexual Orientation Choose not to disclose 2018 2:11 PM BEHAVIORAL HEALTH TECH Last Filed Vital Signs Vital Sign Reading [...] on file Medical Devices Implanted Type Area Bandage Maker Device Identifier Shelf Expiration Date Model / Serial / Lot Ear Implant- [id number] Implanted:11/24 (Quantity not on file) Ear Implant Ear Olympus Bernice Vega TORP Plasti-pore [id number] / / [id number] Description:[facility], [place], [place]. Ear implant-Vega TOPR Plasti-pore MRI Safe Procedures Procedure Name Priority Date/Time Associated Diagnosis Comments EXTI THYROID-STIMULATING HORMONE-SENSITIVE (S-TSH), S Routine 06/10/2023 3:22 PM BEHAVIORAL HEALTH TECH EXTI LIPID PANEL W REFLEX MEASURED LDL Routine 03/19/2023 12:35 PM CDT EXTI BASIC METABOLIC PANEL, S/P Routine 03/19/2023 12:35 PM CDT from Last 3 Months or Most Recently Relevant to Health Maintenance Care Teams Child Welfare Manager Relationship Specialty Start Date End Date Elsewhere, Pcp PCP - General Internal Medicine 12/04/18
--- OUTSIDE RECORDS SUMMARY | 2023-10-21 13:06 | XMS_ITS | Clinical Summary ---
Author Organization [facility] Address [address] [place] [address] Care Team Providers Care Reception Name Role Phone Elsewhere, Pcp Primary Care Provider Unavailabl e Source Comments Patient records contain information from all sites at [facility]. For routine questions regarding patient records, call [phone] during business hours, M-F 8:00 AM - 5:00 PM Central Time. Record requests for emergency care only can be directed to [phone] at any time.[facility] Allergies Active Allergy Reactions Criticality Noted Date [...] Sex Assigned at Female 06/02/2018 2:11 PM TUBULAR RIVETER Gender Identity Female 06/02/2018 2:11 PM TUBULAR RIVETER Sexual Orientation Choose not to disclose 2018 2:11 PM TUBULAR RIVETER Last Filed Vital Signs Vital Sign Reading [...] history exists Medical Devices Implanted Type Area Generation Engineer Device Identifier Shelf Expiration Date Model / Serial / Lot Ear Implant- [id number] Implanted:11/24 (Quantity not on file) Ear Implant Ear Olympus Bernice Vega TORP Plasti-pore [id number] / / [id number] Description:[place], [place]. Ear implant-Vega TOPR Plasti-pore MRI Safe Procedures Procedure Name Priority Date/Time Associated Diagnosis Comments EXTI THYROID-STIMULATING HORMONE-SENSITIVE (S-TSH), S Routine 06/10/2023 3:22 PM TUBULAR RIVETER EXTI LIPID PANEL W REFLEX MEASURED LDL Routine 03/19/2023 12:35 PM CDT EXTI BASIC METABOLIC PANEL, S/P Routine 03/19/2023 12:35 PM CDT from Last 3 Months or Most Recently Relevant to Health Maintenance Care Teams Reception Relationship Specialty Start Date End Date Elsewhere, Pcp PCP - General Internal Medicine 12/04/18
--- OUTSIDE RECORDS SUMMARY | 2023-10-21 13:06 | XMS_ITS ---
Author Organization [facility] Address [address] [place] [address] Care Team Providers Care Public Housing Manager Name Role Phone Unavailable Unavailable Unavailable Surgery Details Not on file Complications Check Surgery Details section. Procedure Estimated Blood Loss Check Surgery Details section. Procedure Findings Check Surgery Details section. Procedure Specimens Taken Check Surgery Details section.
== END 2023-10-16 05:11 | disposition home or self-care (01) ==
LOC: AMB 10-21 13:04
PROVIDERS: PCP Family Medicine; Visit Provider Family Medicine
DX: H92.01 Otalgia, right ear (principal); R68.84 Jaw pain
CPT/HCPCS: A0425; A0429

== ENCOUNTER 2023-10-16 05:34 | Emergency (ER) | payer MEDICAID, MEDICARE, SELFPAY ==
[2023-10-16 05:36] VITALS: BP 121/89; PULSE 89; RESP 20; TEMP 36.7; O2SAT 92; BMI 49.8
--- OUTSIDE RECORDS SUMMARY | 2023-10-16 05:40 | XMS_ITS | Clinical Summary ---
Author Organization [employer] [facility] Address [place], [place] [address] Care Team Providers Care Circular Sawyer Helper Name Role Phone Paolo Limon MD Unavailable Talon Durahm MD Unavailable [phone] Laura GardneryD, Unavailable [phone] Geronimo Lamb MD Primary Care Provider Allergies [...] Start Date End Date Status [facility] Med Center, medication account planner with alarm 1 unit 0 4 [...] tablet Take 2,000 units by mouth. Active medication order composerIndication s:Nocturnal hypoxemia Oxygen [...] Size large. 60 Each 11 3 Active tiotropium (SPIRIVA HANDIHALER) 18 mcg [...] a meal. 180 Tablet 3 3 Active albuterol HFA (PRO-AIR; VENTOLIN; PROVENTIL) [...] TIMES DAILY. 180 Tablet 1 4 Active Myrbetriq 50 mg tabletIndications: Urge urinary incontinence TAKE 1 TABLET BY MOUTH EVERY DAY 90 Tablet 4 Active omeprazole (PRILOSEC) 20 mg Delayed-Release capsuleIndications :Chronic GERD TAKE 2 CAPSULES (40 MG) BY MOUTH ONCE DAILY BEFORE A MEAL. 180 Capsule 2 4 Active montelukast (SINGULAIR) 10 mg tabletIndications: Allergy, sequela TAKE 1 TABLET BY MOUTH EVERYDAY AT BEDTIME 90 Tablet 2 4 Active PARoxetine (PAXIL) 40 mg tabletIndications: Anxiety and depression TAKE 1 TABLET BY MOUTH EVERY DAY IN THE MORNING 90 Tablet 4 Active omeprazole (PriLOSEC) 20 mg Delayed-Release capsuleIndications :Chronic GERD Take 2 Capsules (40 mg) by mouth once daily before a meal. 180 Capsule 3 3 10/07/19 24 Discontinued montelukast (SINGULAIR) 10 mg tabletIndications: Allergy, sequela Take 1 Tablet (10 mg) by mouth at bedtime. 90 Tablet 3 3 10/07/19 24 Discontinued PARoxetine (PAXIL) 40 mg tabletIndications: Anxiety and depression TAKE 1 TABLET BY MOUTH EVERY DAY IN THE MORNING 90 Tablet 1 3 10/10/19 24 Discontinued mirabegron EXTENDED-release (MYRBETRIQ) 50 mg tabletIndications: Urge urinary incontinence Take 1 Tablet (50 mg) by mouth once daily. 90 Tablet 3 10/07/19 24 Discontinued levETIRAcetam (KEPPRA) 750 mg tabletIndications: Seizure (HC) [...] depression Dizziness Overview: Eval by [facility] neurology 2018. Thought to be functional. [...] Encounters Date Type Department Care Team Description 10/14/2023 9:30 AM CDT Office Visit [facility] [address] [place] [address] Ángel Campos AuD Hearing Aid 10/14/[address] [facility] [address] [place] [address] Ángel Campos, Eyad Ear Problem 10/14/2023 Nurse Triage [facility] Nurse Triage Geronimo Lamb MD Mouth/Lip Problem 10/14/2023 Travel 10/09/[address] [facility] [address] [place] [address] Geronimo Lamb MD Refill Request (Paroxetine) 10/06/[address] [facility] [address] [place] [address] Geronimo Lamb MD Refill Request (Myrbetriq, Omeprazole, Montelukast) 09/25/2023 Refill [facility] [place] at [facility] [address] [place] [address] Dread Villavicencio MD Refill Request (Levetiracetam) 09/01/2023 2:55 PM CDT Office Visit [address] [address] Geronimo Lamb MD Form (For assisted living) 09/01/2023 Travel 08/05/2023 Orders Only [address] [address] Geronimo Lamb MD <No scans attached> 08/04/2023 2:55 PM CDT Office Visit [address] [address] Geronimo Lamb MD Fall (Fell to floor in bedroom, tripped over oxygen tubing when getting up, 07/31/2023); Medication Management; Results (Go over lab results) 08/04/2023 Travel 07/25/2023 Nurse Triage [address] [address] Geronimo Lamb MD Medication Management 07/24/2023 3:00 PM TONGUE LINING STITCHER Office Visit [address] [address] Paolo Limon MD Sleep Follow-up 07/24/2023 Travel 07/22/2023 Telephone [facility] [address] [facility] [address] Reside, Heather Vaughan, AuD Hearing Aid from Last 3 Months Immunizations Name Administration Dates Next Due COVID-19 Vaccine Spikevax (M oderna 50mcg/0.5mL) 12YO+ 9122-5173 Formula PF 03/19/2023 COVID-19 vaccine (Pfizer-Bio NTech [...] PHQ-2 Answer Date Recorded PHQ-2 TOTAL SCORE 5 10/13/2023 Social Connections Answer Date Recorded Frequency of [...] T Respiratory Rate 90 06/10/2023 2:35 PM TONGUE LINING STITCHER Oxygen Saturation 91% 09/01/2023 3:04 PM CDT Inhaled Oxygen Concentration - - Weight 106.9 kg (235 lb 9.6 oz) 09/01/2023 3:04 PM CDT Height 142.2 cm (4' 8) 07/24/2023 2:36 PM TONGUE LINING STITCHER Body Mass Index 52.82 07/24/2023 2:36 PM TONGUE LINING STITCHER Plan of Treatment Upcoming Encounters Date Type Department Care Team (Late st Contact Info) Description 10/29/2023 2:30 PM CDT Orders Only [facility] [address] [place] [address] [place], [place] 10/29/2023 3:00 PM CDT Office Visit [facility] [address] [place] [address] Paolo Limon MD [address] [place] [address] 10/31/2023 2:05 PM CDT Office Visit [facility] [address] [place] [address] Geronimo Lamb MD [address] [place] [address] 11/05/2023 11:40 AM CDT Office Visit [facility] [place] at [facility] [address] [place] [address] Dread Villavicencio MD [address] [place] [address] Health Maintenance Due Date Last Done Comments Pap test for age 21-65 04/16/2014 04/16/2011 (Declin ed) Tetanus booster 10/29/2020 10/29/2010 Colonoscopy through age 75 2022 Mammogram for age 45-75 2022 02/24/2019, 02/16 Influenza for age 9-49 01/25/2024 , 05/01/2022, 03/09/2018, Additional history exists BMI (ht and wt on same day) for age 18+ 07/23/2024 07/24/2023, 02/10/2023, 12/10/2022, Additional history exists Depression screening for age 12+ 10/13/2024 10/14/2023, 10/14/2023, 10/14/2023, Additional history exists Lipids for age 45-75 03/19/2028 03/19/2023, 08/29/2021, 06/03/2014, Additional history exists Tdap Completed 10/29/2010 Hepatitis C screening for ag e 18-79 Completed 12/05/2021 HIV for age 15-65 Completed 05/01/2022 Pneumococcal series for age 6-64 Completed 01/15/20, 09/14/2013 COVID-19 vaccine series Completed 03/19/20 23, 05/01/2022, 08/29/2021, Additional history exists Procedures Procedure Name Priority Date/Time Associated Diagnosis Comments T4,FREE Routine 08/04/2023 3:49 PM CDT Hypothyroidism (acquired) TSH WITH REFLEX Routine 08/04/2023 3:49 PM CDT Hypothyroidism (acquired) LIPID PANEL W REFLEX MEASURED LDL Routine 03/19/2023 12:35 PM CDT Hyperlipidemia, unspecified hyperlipidemia type ANTI HIV 1/2 Routine 05/01/2022 4:36 PM TONGUE LINING STITCHER Encounter for screening for HIV ANTI HCV Routine 12/05/2021 9:30 AM CDT Need for hepatitis C screening test SCAN-MAMMOGRAPHY REPORT 02/24/2019 12:00 AM CDT from Last 3 Months or Most Recently Relevant to Health Maintenance Results * (ABNORMAL) TSH WITH REFLEX (08/04/2023 3:49 PM CDT) TSH 0.08(L) 0.27 - 4.20 uIU/mL 08/05/2023 1:54 PM CDT [facility] Blood BLOOD SPECIMEN / Unknown Butterfly / Unknown 08/04/2023 3:49 PM CDT 08/04/2023 3:50 PM CDT Narrative [facility] - 08/05/2023 1:54 PM CDT In Adults, TSH values between 5.00 and 10.00 uIU/ml do not necessarily indicate the presence of Hypothyroidism. Correlation with clinical findings such as presence of goiter and/or Thyroperoxidase (TPO) Antibody may be helpful. For more information please refer to SIVAN 2004; 291: 228-238. Geronimo Lamb MD CHEMISTRY [facility] [address] [place] [address], * T4,FREE (08/04/2023 3:49 PM CDT) T4,FREE 1.27 0.93 - 1.70 ng/dL 08/05/2023 2:29 PM CDT [facility] Blood BLOOD SPECIMEN / Unknown Butterfly / Unknown 08/04/2023 3:49 PM CDT 08/04/2023 3:50 PM CDT Geronimo Lamb MD CHEMISTRY [facility] [address] [place] [address], * (ABNORMAL) LIPID PANEL W REFLEX MEASURED LDL (03/19/2023 12:35 PM CDT) CHOLESTEROL,TOTAL 258(H) 100 - 199 mg/dL 03/20/2023 8:11 AM CDT [facility] Comment: Cholesterol, Total Reference Ranges Desirable <200 mg/dL Borderline 200-239 mg/dL High >=240 mg/dL TRIGLYCERIDES 159(H) <150 mg/dL 03/20/2023 8:11 AM CDT [facility] HDL CHOLESTEROL 55 >40 mg/dL 8:11 AM CDT [facility] NON-HDL CHOLESTEROL 203(H) <145 mg/dl 03/20/2023 8:11 AM CDT [facility] CHOL/HDL RATIO 4.69(H) <4.50 03/20/2023 8:11 AM T [facility] LDL CHOLESTEROL 171(H) <=130 mg/dL 03/20/2023 8:11 AM T [facility] VLDL CHOLESTEROL 32(H) <=30 mg/dL 03/20/2023 8:11 AM T [facility] PROVIDER ORDERED STATUS RANDOM 03/20/2023 8:11 AM T [facility] Blood BLOOD SPECIMEN / Unknown Butterfly / Unknown 03/19/2023 12:35 PM CDT 03/19/2023 12:38 PM CDT Geronimo Lamb MD CHEMISTRY [facility] [address] [place] [address], * ANTI HIV 1/2 (05/01/2022 4:36 PM TONGUE LINING STITCHER) Pathologist [facility] HIV-1/HIV-2 ANTIBODY Non-Reacti ve Non-Reacti ve 05/04/2022 9:59 PM TONGUE LINING STITCHER [facility] Comment:HIV-1 p24 and HIV-1/ HIV-2 Ab not detected. Blood BLOOD SPECIMEN / Unknown Butterfly / Unknown 05/01/2022 4:36 PM TONGUE LINING STITCHER 05/01/2022 4:41 PM TONGUE LINING STITCHER Geronimo Lamb MD SEND OUTS [facility] [address] [place] [address], [place] * ANTI HCV (12/05/2021 9:30 AM CDT) HEPATITIS C ANTIBODY Non-React shikha Non-React shikha 12/05/2021 9:16 PM CDT [facility] Comment:Antibodies to HCV no t detected; does not exclude the possibility of exposure to HCV. Blood BLOOD SPECIMEN / Unknown Venipuncture / Unknown 12/05/2021 9:30 AM CDT 12/05/2021 9:33 AM CDT Geronimo Lamb MD SEND OUTS Performing Organization Address City/[facility]/ZIP Co de Phone Number [facility] [address] [place] [address], [place] * SCAN-MAMMOGRAPHY REPORT (02/24/2019 12:00 AM CDT) Anatomical Region Laterality Modality Other Scanner OTHER from Last 3 Months or Most Recently Relevant to Health Maintenance Care Teams Circular Sawyer Helper Relationship Specialty Start Date End Date Geronimo Lamb MD [address] [place], [place] [id number] PCP - General Family Practice 04/23/21 Paolo Limon MD Sleep Medicine 10/28/11 Talon Durham MD Neurology Neurology 11/26/11 Laura Gardner PsyD, Psychology 09/14/13
--- OUTSIDE RECORDS SUMMARY | 2023-10-16 05:40 | XMS_ITS | Referral Summary ---
Author Organization [facility] Address [address] [place] [address] Care Team Providers Care Pharmacy Clinical Specialist Name Role Phone Elsewhere, Pcp Primary Care Provider Unavailabl e Source Comments Patient records contain information from all sites at [facility]. For routine questions regarding patient records, call [phone] during business hours, M-F 8:00 AM - 5:00 PM Central Time. Record requests for emergency care only can be directed to [phone] at any time.[facility] [...] Sex Assigned at Female 06/02/2018 2:11 PM ENTREPRENEURIAL FINANCE PROFESSOR Gender Identity Female 06/02/2018 2:11 PM ENTREPRENEURIAL FINANCE PROFESSOR Sexual Orientation Choose not to disclose 2018 2:11 PM ENTREPRENEURIAL FINANCE PROFESSOR Last Filed Vital Signs Vital Sign Reading [...] on file Medical Devices Implanted Type Area [id number] Developer Device Identifier Shelf Expiration Date Model / Serial / Lot Ear Implant- [id number] Implanted:11/24 (Quantity not on file) Ear Implant Ear Olympus Bernice Vega TORP Plasti-pore [id number] / / [id number] Description:[facility], [place], [place]. Ear implant-Vega TOPR Plasti-pore MRI Safe Procedures Procedure Name Priority Date/Time Associated Diagnosis Comments EXTI THYROID-STIMULATING HORMONE-SENSITIVE (S-TSH), S Routine 06/10/2023 3:22 PM ENTREPRENEURIAL FINANCE PROFESSOR EXTI LIPID PANEL W REFLEX MEASURED LDL Routine 03/19/2023 12:35 PM CDT EXTI BASIC METABOLIC PANEL, S/P Routine 03/19/2023 12:35 PM CDT from Last 3 Months or Most Recently Relevant to Health Maintenance Care Teams Pharmacy Clinical Specialist Relationship Specialty Start Date End Date Elsewhere, Pcp PCP - General Internal Medicine 12/04/18
--- OUTSIDE RECORDS SUMMARY | 2023-10-16 05:40 | XMS_ITS | Clinical Summary ---
Author Organization [facility] Address [address] [place] [address] Care Team Providers Care Airplane Pilot Chief Name Role Phone Elsewhere, Pcp Primary Care Provider Unavailabl e Source Comments Patient records contain information from all sites at [facility]. For routine questions regarding patient records, call [phone] during business hours, M-F 8:00 AM - 5:00 PM Central Time. Record requests for emergency care only can be directed to [phone] at any time.[facility] Allergies Active Allergy Reactions Criticality Noted Date [...] Sex Assigned at Female 06/02/2018 2:11 PM ANALYST GEOCHEMICAL PROSPECTING Gender Identity Female 06/02/2018 2:11 PM ANALYST GEOCHEMICAL PROSPECTING Sexual Orientation Choose not to disclose 2018 2:11 PM ANALYST GEOCHEMICAL PROSPECTING Last Filed Vital Signs Vital Sign Reading [...] history exists Medical Devices Implanted Type Area Basketball Commentator Device Identifier Shelf Expiration Date Model / Serial / Lot Ear Implant- [id number] Implanted:11/24 (Quantity not on file) Ear Implant Ear Olympus Bernice Vega TORP Plasti-pore [id number] / / [id number] Description:[place] Ear implant-Vega TOPR Plasti-pore MRI Safe Procedures Procedure Name Priority Date/Time Associated Diagnosis Comments EXTI THYROID-STIMULATING HORMONE-SENSITIVE (S-TSH), S Routine 06/10/2023 3:22 PM ANALYST GEOCHEMICAL PROSPECTING EXTI LIPID PANEL W REFLEX MEASURED LDL Routine 03/19/2023 12:35 PM CDT EXTI BASIC METABOLIC PANEL, S/P Routine 03/19/2023 12:35 PM CDT from Last 3 Months or Most Recently Relevant to Health Maintenance Care Teams Airplane Pilot Chief Relationship Specialty Start Date End Date Elsewhere, Pcp PCP - General Internal Medicine 12/04/18
--- OUTSIDE RECORDS SUMMARY | 2023-10-16 05:40 | XMS_ITS ---
Author Organization [facility] Address [address] [place] [address] Care Team Providers Care Mold Holder Name Role Phone Elsewhere, Pcp Primary Care Provider Unavailabl e Transplant Episode Lung Candidate [facility] ([place], [place]) - [facility] Referred on 03/27/2023 Marked as Ineligible on 07/14/2023 Reason: Unable to Contact Patient Lung CoordinatorCoordinator Transplant, R.N. Phone: N/A Fax: N/A Email: N/A Care Team Name Role Phone Fax Email Coordinator Transplant, R.N. Lung Coordinator N/A N /A N/A Events Pre-Transplant Referred: 03/27/2023
--- OUTSIDE RECORDS SUMMARY | 2023-10-16 05:40 | XMS_ITS ---
Author Organization [facility] Address [address] [place] [address] Care Team Providers Care Community Outreach Specialist Name Role Phone Unavailable Unavailable Unavailable Surgery Details Not on file Complications Check Surgery Details section. Procedure Estimated Blood Loss Check Surgery Details section. Procedure Findings Check Surgery Details section. Procedure Specimens Taken Check Surgery Details section.
--- NOTE | 2023-10-16 05:57 | ED_ITS ---
HPI - General Adult General Chief complaint: Ear/Nose/Throat Problem Stated complaint: right ear pain Time Seen by Provider: 10/16/23 05:36 History of Present Illness HPI narrative: CC: Right Ear Pain pt. diagnosed with right ear infection on friday. pt. has taken 2 doses of abx. denies fevers, n/v, diarrhea. 48-year-old woman presenting to the emergency department with concern of right ear pain. Does have a history of hearing aids and reconstructive surgery in her right ear. About a week ago began to have some pain in this area. Thought that perhaps part of the hearing aid had gone missing. A day and half ago saw her elevator dispatcher who did not appreciate that there was anything unusual. Was referred to ENT and says she missed a phone call from them. Subsequently seen in urgent care and diagnosed with a ?severe? otitis media and initiated on Augmentin. She has had 2 doses of Augmentin. Has been using warm packs. Has not noted any drainage. Does use a nasal saline spray. Is not having facial pain otherwise. She saw a scratch in the back of her mouth/throat and wondered if maybe that got infected. 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 Unclear if this was a cholesteatoma? She is not experiencing any alteration to her hearing acuity. She would not consider herself particularly congested lately. She has been experiencing some spinning sensation recently where she goes to lay herself back she can feel some vertigo. She is not feeling this now. It can hurt to chew. She is not describing cold or heat sensitivity in her mouth but clearly prefers warm packs on the jaw versus cold packs. Related Data Home Medications ?Medication ?Instructions ?Recorded ?Confirmed albuterol sulfate 90 mcg/actuation 2 puff inhalation Q4H PRN 11/30/21 10/16/23 aerosol inhaler mirabegron 50 mg tablet,extended 50 mg PO DAILY 11/30/21 10/16/23 release 24 hr (Myrbetriq) montelukast 10 mg tablet 10 mg PO HS 11/30/21 10/16/23 omeprazole 20 mg capsule,delayed 40 mg PO DAILY 02/26/22 10/16/23 release levetiracetam 750 mg tablet 750 mg PO BID 11/25/22 10/16/23 (Keppra) solifenacin 10 mg tablet 10 mg PO DAILY 11/25/22 10/16/23 cholecalciferol (vitamin D3) 50 50 mcg PO DAILY 01/30/23 10/16/23 mcg (2,000 unit) capsule levothyroxine 125 mcg tablet 125 mcg PO QAM 01/30/23 10/14/23 paroxetine HCl 40 mg tablet 40 mg PO DAILY 01/30/23 10/16/23 levothyroxine 100 mcg tablet 100 mcg PO DAILY 10/16/23 10/16/23 potassium chloride 10 mEq 10 meq PO DAILY 10/16/23 10/16/23 tablet,extended release Previous Rx's ?Medication ?Instructions ?Recorded albuterol sulfate 2.5 mg/3 mL 2.5 mg (3 mL) inhalation Q8H PRN 02/02/23 (0.083 %) solution for nebulization #1 mL budesonide-formoterol HFA 160 2 puff inhalation BID #1 g 02/02/23 mcg-4.5 mcg/actuation aerosol inhaler (Symbicort) furosemide 40 mg tablet 40 mg PO DAILY #30 tabs 02/02/23 ipratropium 0.5 mg-albuterol 3 mg 3 ml inhalation Q6-8H PRN #90 mL 02/02/23 (2.5 mg base)/3 mL nebulization soln prednisone 20 mg tablet 40 mg (2 x 20 mg) PO DAILYWM #2 02/02/23 tabs tiotropium bromide 2.5 2 puff inhalation DAILY #1 g 02/02/23 mcg/actuation mist for inhalation (Spiriva Respimat) Allergies Allergy/AdvReac Type Severity Reaction Status Date / Time azithromycin Allergy Intermediate Bloody Verified 10/16/23 05:54 Stools latex Allergy Intermediate Rash Verified 10/16/23 05:54 oxycodone Allergy Intermediate Agitated Verified 10/16/23 05:54 scopolamine Allergy Intermediate Tremors Verified 10/16/23 05:54 basil Allergy Rash Verified 10/16/23 05:54 acetaminophen [From Percocet] AdvReac Confusion Verified 10/16/23 05:54 Review of Systems Status of ROS: Reports: 6 or more systems reviewed and unremarkable except as noted in History and below [facility] Medical History Hypothyroidism ?E03.9 - Hypothyroidism, unspecified (ICD-10) Acute and chronic respiratory failure with hypoxia ?J96.21 - Acute and chronic respiratory failure with hypoxia (ICD-10) 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 - Unspecified convulsions (ICD-10) RODRICK (obstructive sleep apnea) ?G47.33 - Obstructive sleep apnea (adult) (pediatric) (ICD-10) ADHD ?F90.9 - Attention-deficit hyperactivity disorder, unspecified type (ICD-10) Hyperthyroidism ?E05.90 - Thyrotoxicosis, unspecified without thyrotoxic crisis or storm (ICD-10) Hydrocephalus ?G91.9 - Hydrocephalus, unspecified (ICD-10) Hyperlipidemia ?E78.5 - Hyperlipidemia, unspecified (ICD-10) Anxiety and depression ?F41.9 - Anxiety disorder, unspecified (ICD-10) ?F32.A - Depression, unspecified (ICD-10) Asthma ?J45.909 - Unspecified asthma, uncomplicated (ICD-10) Surgical History History of ear surgery ?Z98.890 - Other specified postprocedural states (ICD-10) History of strabismus surgery ?Z98.890 - Other specified postprocedural states (ICD-10) Social History Narrative: on disability since 2009; lives alone with her cat. nonsmoker, no drugs, no significant tobacco history adopted, her two adopted aunts are her family contacts. What is your current living situation?: I presently have a place to live Problems where you live: no known problems Problems where you live details: None In the past 12 months, utilities in danger of being shut off: no In past 12 months, lack of transportation kept you from medical appts, meetings, work, or getting things needed for daily living: no In the past 12 mos, have been you worried that your food would run out before you had money to buy more?: never true In the past 12 mos, the food you bought just didn't last and you didn't have money to buy more?: never true Highest level of school completed/degree received: Associate degree: academic program Smoking Status: Never smoker Do you use any of these nicotine containing products: None Second hand tobacco smoke exposure: No How often do you have a drink containing alcohol: never How often do you have six or more drinks on one occasion: Never AUDIT-C Alcohol total score: 0 Non-prescribed substance use: denies use Caffeine: Yes (Pop ocassionally) How often does anyone, including family, friends and others, physically hurt you : never How often does anyone, including family, friends and others, insult or talk down to you: never How often does anyone, including family, friends and others, threaten you with harm: never How often does anyone, including family, friends and others, scream or curse at you: never service: No Exam Narrative: Exam Narrative: Actually sleeping when I enter the room. Mildly labored breathing per usual. On 2 L of oxygen via nasal cannula. Neck is supple without inflammatory changes or swelling. I do not appreciate any swelling or tenderness to palpation about the parotid or submandibular salivary gland areas. Oropharynx is unremarkable. Does not have percussive tenderness to her teeth. There were no inflammatory changes present. Does have persistently reproducible tenderness along the right anterolateral lower jaw. I do not appreciate significant swelling in this area however it is more full on the right side versus the left. Scars are evident around the right pinna and behind ear consistent with surgery; would suggest a mastoid procedure/mastoidectomy. No inflammatory changes now. Left TM is relatively unremarkable noninflamed. The right TM and canal are without evidence of inflammation at this time. There is fleshy colored very faintly erythematous surrounding the periphery; the periphery of the TM. Perforated TM? Absent? There is no drainage fluid in the canal. Irregularity to structure here generally but I do not see significant erythema or fullness at this time. Const: Vital Signs, click to edit/add: Vital Signs - 24 hr 10/16/23 05:36 10/16/23 08:21 10/16/23 08:24 Temperature 98.0 F Pulse Rate [Right Pulse Oximeter] 89 88 Respiratory Rate 20 22 Blood Pressure [Ri ght Upper Arm] 121/89 122/80 Pulse Oximetry 92 95 Oxygen Delivery Me thod Nasal Cannula Nasal Cannula Nasal Cannula Oxygen Flow Rate 2 2 Documenting provider has reviewed patient's vital signs: yes Course Vital Signs Vital signs: Initial Vital Signs Temperature 98.0 F 10/16/23 05:36 Temperature Source Temporal Artery Scan 10/16/23 05:36 Pulse Rate 89 10/16/23 05:36 Respiratory Rate 20 10/16/23 05:36 Blood Pressure 121/89 10/16/23 05:36 Blood Pressure Mean 99 10/16/23 05:36 Blood Pressure Position Sitting 10/16/23 05:36 Pulse Oximetry 92 10/16/23 05:36 Oxygen Delivery Method Nasal Cannula 10/16/23 05:36 Oxygen Flow Rate 2 10/16/23 05:36 Vital Signs Temperature 98.0 F 10/16/23 05:36 Pulse Rate 89 10/16/23 05:36 Respiratory Rate 20 10/16/23 05:36 Blood Pressure 121/89 10/16/23 05:36 Pulse Oximetry 92 10/16/23 05:36 Oxygen Delivery Method Nasal Cannula 10/16/23 05:36 Oxygen Flow Rate 2 10/16/23 05:36 Temperature 98.0 F 10/16/23 05:36 Pulse Rate 88 10/16/23 08:21 Respiratory Rate 22 10/16/23 08:21 Blood Pressure 122/80 10/16/23 08:21 Pulse Oximetry 95 10/16/23 08:21 Oxygen Delivery Method Nasal Cannula 10/16/23 08:24 Oxygen Flow Rate 2 10/16/23 08:24 Medical Decision Making MDM Narrative Medical decision making narrative: If infectious process present, I think Augmentin would be a good drug. Two doses is not enough for treatment failure. Was sleeping so I am not sure there is major pain issue here. Does not seem to have altered hearing. Reproducible pain in the right jaw maybe suggesting a dental issue. Does not appear to involve glandular structures. Is not tender in the TMJ either. Does have follow-up anticipated with ENT which I think is very appropriate here otherwise she believe she can get a dental appointment shortly as well. I would encourage this follow-up to evaluate the dentition in the right jaw. With further discussion however we will proceed with CT facial bones to evaluate for any further abnormality. Reviewing CT of facial bones I would do not appreciate acute abnormalities. CT maxillofacial without contrast. COMPARISON: None available. FINDINGS: Facial bones: No fractures or osseous lesions. Specifically the nasal bones, maxilla and mandible appear intact. Mild leftward nasal septal deviation. Anterior subluxation of bilateral temporomandibular joints. Orbits and globes: Globes are intact. No retrobulbar hematoma. Sinuses: Irregular appearance of the right mastoid, which may be sequela of prior mastoidectomy versus mastoiditis. Paranasal sinuses and left mastoid air cells are clear. Soft tissues: Unremarkable. Visualized brain: Unremarkable. IMPRESSION: 1. Irregularity of the right mastoid with absence of the right mastoid air cells. Recommend correlation with history of prior mastoiditis and/or mastoidectomy. 2. Anterior subluxation of the temporomandibular joints. Historically has unusual sensory challenges/perceptions. There might be some discomfort related to the temporomandibular joints however this is of longstanding duration. She does not have reproducible pain here. I still would suspect that might have a dental problem? And with this in mind would discontinue Augmentin and transition to standard penicillin to avoid further medication/reaction complications. Dental followup would also offer opinion on TMJ. Might be time for a follow-up with ENT as expected anyway but I think less urgent. She feels she will be okay alternating ibuprofen and acetaminophen as has been doing for pain. See patient discharge plan further discussion/plan Medical Records Medical records reviewed: Yes I reviewed the patient's medical records Discharge Plan Discharge Clinical Impression: Jaw pain Patient Disposition: Home w/ Parent or Adult Condition: Stable Additional Instructions: Paloma I would place a call 1st thing with your dentist and try to get in today or tomorrow, yet this week, for evaluation. I cannot clearly reproduce dental pain but you hurt in the jaw repeatedly to palpation on that right front side. It is certainly possible you have referred dental pain. You also have slightly dislocated temporomandibular joints bilaterally. This is not a new thing for you. And you do not have pain directly to palpation in this joint. You're on a good antibiotic but have only had 2 doses at this point. I do not see significant inflammation in your ear at this time. If we are thinking that dental issue might be involved in your pain, I think we can change you to penicillin which might be better tolerated. Penicillin from [facility]. You do not seem to have swelling of the parotid gland or salivary or submandibular gland. Your throat does not appear to be red. You do not have lymph nodes swollen in your neck. There is no inflammation present on your skin. Can continue with ibuprofen or acetaminophen as discussed. Prescriptions: No Action levetiracetam [Keppra] 750 mg tablet 750 mg PO BID solifenacin 10 mg tablet 10 mg PO DAILY potassium chloride 10 mEq tablet extended release 10 meq PO DAILY Rx Instructions: take 2 tablets daily levothyroxine 100 mcg tablet 100 mcg PO DAILY montelukast 10 mg tablet 10 mg PO HS mirabegron [Myrbetriq] 50 mg tablet extended release 24 hr 50 mg PO DAILY Patient Comments: albuterol sulfate 90 mcg/actuation HFA aerosol inhaler 2 puff INHALATION Q4H PRN levothyroxine 125 mcg tablet 125 mcg PO QAM cholecalciferol (vitamin D3) 50 mcg (2,000 unit) capsule 50 mcg PO DAILY paroxetine HCl 40 mg tablet 40 mg PO DAILY Patient Comments: furosemide 40 mg Tablet 40 mg PO DAILY Qty: 30 0RF prednisone 20 mg Tablet 40 mg PO DAILYWM Qty: 2 0RF albuterol sulfate 2.5 mg /3 mL (0.083 %) solution for nebulization 2.5 mg inhalation Q8H PRNQty: 1 0RF budesonide-formoterol [Symbicort] 160-4.5 mcg/actuation HFA aerosol inhaler 2 puff INHALATION BID Qty: 1 0RF Spiriva Respimat 2.5 mcg/actuation mist 2 puff inhalation DAILY Qty: 1 0RF ipratropium-albuterol 0.5 mg-3 mg(2.5 mg base)/3 mL solution for nebulization 3 ml inhalation Q6-8H PRNQty: 90 0RF omeprazole 20 mg capsule,delayed release(DR/EC) 40 mg PO DAILY Follow Up/Referrals: Geronimo Lamb MD [Primary Care Provider] - Stand Alone Forms: [employer] Info Instructions
--- NOTE | 2023-10-16 06:35 | CRLHL7_ITS ---
For Patients: As a result of the Century Cures Act, medical imaging exams and procedure reports are released immediately into your electronic medical record. You may view this report before your referring provider. If you have questions, please contact your health care provider. INDICATION: Right jaw and ear pain. TECHNIQUE: CT maxillofacial without contrast. COMPARISON: None available. FINDINGS: Facial bones: No fractures or osseous lesions. Specifically the nasal bones, maxilla and mandible appear intact. Mild leftward nasal septal deviation. Anterior subluxation of bilateral temporomandibular joints. Orbits and globes: Globes are intact. No retrobulbar hematoma. Sinuses: Irregular appearance of the right mastoid, which may be sequela of prior mastoidectomy versus mastoiditis. Paranasal sinuses and left mastoid air cells are clear. Soft tissues: Unremarkable. Visualized brain: Unremarkable. IMPRESSION: 1. Irregularity of the right mastoid with absence of the right mastoid air cells. Recommend correlation with history of prior mastoiditis and/or mastoidectomy. 2. Anterior subluxation of the temporomandibular joints. Please note that all CT scans at this facility use dose modulation, iterative reconstruction, and/or weight-based dosing when appropriate to reduce radiation dose to as low as reasonably achievable. Dictated by Jeannette Huitron MD @ 10/16/2023 7:24:26 AM (Electronically Signed)
[2023-10-16 08:21] VITALS: BP 122/80; PULSE 88; RESP 22; O2SAT 95
--- NOTE | 2023-10-16 08:32 | ED.NURSE ---
[facility] did not work for pt, pt given paper prescription for prednisone.
== END 2023-10-16 08:33 | disposition home or self-care (01) ==
PROVIDERS: Emergency Provider Family Medicine; PCP Family Medicine
DX: R68.84 Jaw pain (principal)
CPT/HCPCS: 70486; 99283; 99284

== ENCOUNTER 2023-11-11 15:14 | Outpatient (CLI) | payer MEDICAID, SELFPAY ==
--- OUTSIDE RECORDS SUMMARY | 2023-11-15 05:21 | XMS_ITS | Clinical Summary ---
Author Organization [facility] Address [place], [place] [address] Care Team Providers Care Fabricator Foam Rubber Name Role Phone Paolo Limon MD Unavailable Talon Durham MD Unavailable [phone] Laura Gardner PsyD, Unavailable [phone] Geronimo Lamb MD Primary Care Provider Allergies [...] Start Date End Date Status [facility], medication facilities planner with alarm 1 unit 0 04/22/2014 [...] and depression Dizziness Overview: Eval by [facility] neurology 2018. Thought to be functional. Referred [...] Description 11/13/2023 10:35 AM CDT Office Visit [facility] [address] [place] [address] Geronimo Lamb MD Results (Discuss lab results); ER Follow up ([facility], 11/11/2023, abdominal pain) 11/13/2023 Travel 11/11/2023 Telephone [facility] [address] [place] [address] Dread Villavicencio MD Results 11/05/2023 12:45 PM CDT Orders Only [facility] [address] [place] [address] Lab, [place] Lab 11/05/2023 11:40 AM CDT Office Visit [facility] [address] [place] [address] Dread Villavicencio MD Follow Up (Seizure, having more neurological symptoms, having a hard time finding words, hands and feet going numb but nothing else. When sleeping, not sure if having seizure but she gets paralyzed where she can only move her head to look around but nothing else. ) 11/05/2023 Travel 10/16/2023 Orders Only [facility] Scanner 1 scan: (1-Ord) MARIAN, FACIAL BONES WO, 10/16/2023 10/14/2023 9:30 AM CDT Office Visit [facility] [address] [place] [address] Ángel Campos, AuD Hearing Aid 10/14/2023 Telephone [facility] [address] [place] [address] Ángel Campos, AuD Ear Problem 10/14/2023 Nurse Triage [facility] Nurse Triage Geronimo Lamb MD Mouth/Lip Problem 10/14/2023 Travel 10/09/2023 Refill [facility] [address] [place] [address] Geronimo Lamb MD Refill Request (Paroxetine) 10/06/2023 Refill [facility] [address] [place] [address] Geronimo Lamb MD Refill Request (Myrbetriq, Omeprazole, Montelukast) 09/25/[address] [facility] [place] [facility] [address] [place] [address] Dread Villavicencio MD Refill Request (Levetiracetam) 09/01/2023 2:55 PM CDT Office Visit [facility] [address] [place] [address] Geronimo Lamb MD Form (For assisted living) 09/01/2023 Travel from Last 3 Months Immunizations Name Administration Dates Next Due COVID-19 Vaccine Spikevax (M oderna 50mcg/0.5mL) 12YO+ 4440-1108 Formula PF 03/19/2023 COVID-19 vaccine (Pfizer-Bio NTech [...] T Respiratory Rate 90 06/10/2023 2:35 PM MAGNETIC LOCATER Oxygen Saturation 92% 11/13/2023 10:40 AM CDT Inhaled Oxygen Concentration - - Weight 106.6 kg (235 lb) 11/13/2023 10:40 AM CDT Height 142.2 cm (4' 8) 07/24/2023 2:36 PM MAGNETIC LOCATER Body Mass Index 52.69 07/24/2023 2:36 PM MAGNETIC LOCATER Plan of Treatment Upcoming Encounters Date Type Department Care Team (Late st Contact Info) Description 02/05/2024 2:30 PM CDT Office Visit [facility] [address] [place] [address] Paolo Limon MD [address] [place] [address] 03/15/2024 9:00 AM CDT Orders Only [facility] [address] [place] [address] Lab, [place] 03/19/2024 1:15 PM CDT Office Visit [facility] [address] [place] [address] Geronimo Lamb MD [address] [place] [address] Health Maintenance Due Date Last Done Comments [...] ANTI HIV 1/2 Routine 05/01/2022 4:36 PM MAGNETIC LOCATER Encounter for screening for HIV ANTI HCV Routine 12/05/2021 9:30 AM CDT Need for hepatitis C screening test SCAN-MAMMOGRAPHY REPORT 02/24/2019 12:00 AM CDT from Last 3 Months or Most Recently Relevant to Health Maintenance Results * TSH WITH REFLEX (11/05/2023 12:29 PM CDT) TSH 1.86 0.27 - 4.20 uIU/mL 11/05/2023 11:39 PM CDT [facility] Blood BLOOD SPECIMEN / Unknown Venipuncture / Unknown 11/05/2023 12:29 PM CDT 11/05/2023 12:30 PM CDT Narrative [facility] - 11/05/2023 11:39 PM CDT In Adults, TSH values between 5.00 and 10.00 uIU/ml do not necessarily indicate the presence of Hypothyroidism. Correlation with clinical findings such as presence of goiter and/or Thyroperoxidase (TPO) Antibody may be helpful. For more information please refer to SIVAN 2004; 291: 228-238. Geronimo Lamb MD CHEMISTRY Performing Organization Address [facility]/ZIP Co de Phone Number [facility] [address] [address], * LEVETIRACETAM (KEPPRA) (11/05/2023 12:29 PM CDT) LEVETIRACETAM (KEPPRA) 19.1 6.0 - 46.0 ug/mL 11/05/2023 11:58 PM CDT [facility] Blood BLOOD SPECIMEN / Unknown Venipuncture / Unknown 11/05/2023 12:29 PM CDT 11/05/2023 12:30 PM CDT Narrative [facility] - 11/05/2023 11:58 PM CDT Reference Range is based on Trough Steady State in patients receiving recommended daily dose. ??The relationship between serum concentrations and toxicity is not known. Bivaracetam (Briviact??) interferes with measurements of levetiracetam (Keppra??) in the ARK Levetiracetam Assay Dread Villavicencio MD SEND OUTS Performing Organization Address [facility] Co de Phone Number [facility] [address] [place] [address], * SCAN-CT INTERPRETATION (10/16/2023 12:00 AM CDT) [...] 12:38 PM CDT Geronimo Lamb MD CHEMISTRY [facility] [address] [place] [address], [place] * ANTI HIV 1/2 (05/01/2022 4:36 PM MAGNETIC LOCATER) HIV-1/HIV-2 ANTIBODY Non-Reacti ve Non-Reacti ve 05/04/2022 9:59 PM MAGNETIC LOCATER [facility] Comment:HIV-1 p24 and HIV-1/ HIV-2 Ab not detected. Blood BLOOD SPECIMEN / Unknown Butterfly / Unknown 05/01/2022 4:36 PM MAGNETIC LOCATER 05/01/2022 4:41 PM MAGNETIC LOCATER Geronimo Lamb MD SEND OUTS [facility] [address] [place] [address], [place] * ANTI HCV (12/05/2021 9:30 AM CDT) HEPATITIS C ANTIBODY Non-React shikha Non-React shikha 12/05/2021 9:16 PM CDT [facility] Comment:Antibodies to HCV no t detected; does not exclude the possibility of exposure to HCV. Blood BLOOD SPECIMEN / Unknown Venipuncture / Unknown 12/05/2021 9:30 AM CDT 12/05/2021 9:33 AM CDT Geronimo Lamb MD SEND OUTS [facility] [address] [place] [address], * SCAN-MAMMOGRAPHY REPORT (02/24/2019 12:00 AM CDT) Anatomical Region Laterality Modality Other Scanner OTHER from Last 3 Months or Most Recently Relevant to Health Maintenance Care Teams Fabricator Foam Rubber Relationship Specialty Start Date End Date Geronimo Lamb MD [address] [place], [place] [id number] PCP - General Family Practice 04/23/21 Paolo Limon MD Sleep Medicine 10/28/11 Talon Durham MD Neurology Neurology 11/26/11 Laura Gardner PsyD, Psychology 09/14/13
--- OUTSIDE RECORDS SUMMARY | 2023-11-15 05:21 | XMS_ITS ---
Author Organization [facility] Address [address] [place] [address] Care Team Providers Care Equal Opportunity Specialist Name Role Phone Unavailable Unavailable Unavailable Surgery Details Not on file Complications Check Surgery Details section. Procedure Estimated Blood Loss Check Surgery Details section. Procedure Findings Check Surgery Details section. Procedure Specimens Taken Check Surgery Details section.
--- OUTSIDE RECORDS SUMMARY | 2023-11-15 05:21 | XMS_ITS | Clinical Summary ---
Author Organization [facility] Address [address] [place] [address] Care Team Providers Care Captain/Check Airman Name Role Phone Elsewhere, Pcp Primary Care Provider Unavailabl e Source Comments Patient records contain information from all sites at [facility]. For routine questions regarding patient records, call [phone] during business hours, M-F 8:00 AM - 5:00 PM Central Time. Record requests for emergency care only can be directed to [phone] at any time.[facility] Allergies Active Allergy Reactions Criticality Noted Date [...] Sex Assigned at Female 06/02/2018 2:11 PM NOTCH GRINDER Gender Identity Female 06/02/2018 2:11 PM NOTCH GRINDER Sexual Orientation Choose not to disclose 2018 2:11 PM NOTCH GRINDER Last Filed Vital Signs Vital Sign Reading [...] history exists Medical Devices Implanted Type Area Strike Off Machine Operator Device Identifier Shelf Expiration Date Model / Serial / Lot Ear Implant- 011 Implanted:11/24 (Quantity not on file) Ear Implant Ear Olympus Bernice Vega TORP Plasti-pore [id number] / / [id number] Description:[place], [place]. Ear implant-Vega TOPR Plasti-pore MRI Safe Procedures Procedure Name Priority Date/Time Associated Diagnosis Comments EXTI THYROID-STIMULATING HORMONE-SENSITIVE (S-TSH), S Routine 06/10/2023 3:22 PM NOTCH GRINDER EXTI LIPID PANEL W REFLEX MEASURED LDL Routine 03/19/2023 12:35 PM CDT EXTI BASIC METABOLIC PANEL, S/P Routine 03/19/2023 12:35 PM CDT from Last 3 Months or Most Recently Relevant to Health Maintenance Care Teams Captain/Check Airman Relationship Specialty Start Date End Date Elsewhere, Pcp PCP - General Internal Medicine 12/04/18
--- OUTSIDE RECORDS SUMMARY | 2023-11-15 05:21 | XMS_ITS | Referral Summary ---
Author Organization [facility] Address [address] [place] [address] Care Team Providers Care Sericulture Teacher Name Role Phone Elsewhere, Pcp Primary Care Provider Unavailabl e Source Comments Patient records contain information from all sites at [facility]. For routine questions regarding patient records, call [phone] during business hours, M-F 8:00 AM - 5:00 PM Central Time. Record requests for emergency care only can be directed to [phone] at any time.[facility] Allergies Active Allergy Reactions Criticality Noted Date [...] Sex Assigned at Female 06/02/2018 2:11 PM COMMERCIAL BAKER HELPER Gender Identity Female 06/02/2018 2:11 PM COMMERCIAL BAKER HELPER Sexual Orientation Choose not to disclose 2018 2:11 PM COMMERCIAL BAKER HELPER Last Filed Vital Signs Vital Sign [...] on file Medical Devices Implanted Type Area Content Development Manager Device Identifier Shelf Expiration Date Model / Serial / Lot Ear Implant- 011 Implanted:11/24 (Quantity not on file) Ear Implant Ear Olympus Bernice Vega TORP Plasti-pore [id number] / / [id number] Description:[facility], [place], [place]. Ear implant-Vega TOPR Plasti-pore MRI Safe Procedures Procedure Name Priority Date/Time Associated Diagnosis Comments EXTI THYROID-STIMULATING HORMONE-SENSITIVE (S-TSH), S Routine 06/10/2023 3:22 PM COMMERCIAL BAKER HELPER EXTI LIPID PANEL W REFLEX MEASURED LDL Routine 03/19/2023 12:35 PM CDT EXTI BASIC METABOLIC PANEL, S/P Routine 03/19/2023 12:35 PM CDT from Last 3 Months or Most Recently Relevant to Health Maintenance Care Teams Sericulture Teacher Relationship Specialty Start Date End Date Elsewhere, Pcp PCP - General Internal Medicine 12/04/18
== END 2023-11-11 15:15 | disposition home or self-care (01) ==
LOC: AMB 11-15 05:18
PROVIDERS: PCP Family Medicine; Visit Provider Emergency Medicine Emergency Medical Services
DX: R06.09 Other forms of dyspnea (principal)
CPT/HCPCS: A0425; A0427

== ENCOUNTER 2023-11-11 15:34 | Emergency (ER) | payer MEDICAID, SELFPAY ==
[2023-11-11 15:44] VITALS: BP 128/82; PULSE 89; RESP 20; TEMP 36.4; O2SAT 92; BMI 49.8
--- NOTE | 2023-11-11 16:01 | ED_ITS ---
HPI - Abdominal Pain General Chief Complaint: Abdominal Pain Stated Complaint: abdominal pain Time Seen by Provider: 11/11/23 15:52 History of Present Illness HPI narrative: This 48-year-old female comes in reporting abdominal pain that began this morning. She states that it seems to be present all the time but sometimes it becomes more intense. She reports the pain across her lower abdomen around into her back. She does report a prior history of some back pain and discomfort. Sh e denies having any nausea, vomiting, lightheadedness, shortness of breath, fever, or diarrhea. She does not report any dysuria symptoms. Related Data Home Medications ?Medication ?Instructions ?Recorded ?Confirmed albuterol sulfate 90 mcg/actuation 2 puff inhalation Q4H PRN 11/30/21 10/16/23 aerosol inhaler mirabegron 50 mg tablet,extended 50 mg PO DAILY 11/30/21 10/16/23 release 24 hr (Myrbetriq) montelukast 10 mg tablet 10 mg PO HS 11/30/21 10/16/23 omeprazole 20 mg capsule,delayed 40 mg PO DAILY 02/26/22 10/16/23 release levetiracetam 750 mg tablet 750 mg PO BID 11/25/22 10/16/23 (Keppra) solifenacin 10 mg tablet 10 mg PO DAILY 11/25/22 10/16/23 cholecalciferol (vitamin D3) 50 50 mcg PO DAILY 01/30/23 10/16/23 mcg (2,000 unit) capsule levothyroxine 125 mcg tablet 125 mcg PO QAM 01/30/23 10/14/23 paroxetine HCl 40 mg tablet 40 mg PO DAILY 01/30/23 10/16/23 levothyroxine 100 mcg tablet 100 mcg PO DAILY 10/16/23 10/16/23 potassium chloride 10 mEq 10 meq PO DAILY 10/16/23 10/16/23 tablet,extended release Previous Rx's ?Medication ?Instructions ?Recorded albuterol sulfate 2.5 mg/3 mL 2.5 mg (3 mL) inhalation Q8H PRN 02/02/23 (0.083 %) solution for nebulization #1 mL budesonide-formoterol HFA 160 2 puff inhalation BID #1 g 02/02/23 mcg-4.5 mcg/actuation aerosol inhaler (Symbicort) furosemide 40 mg tablet 40 mg PO DAILY #30 tabs 02/02/23 ipratropium 0.5 mg-albuterol 3 mg 3 ml inhalation Q6-8H PRN #90 mL 02/02/23 (2.5 mg base)/3 mL nebulization soln prednisone 20 mg tablet 40 mg (2 x 20 mg) PO DAILYWM #2 02/02/23 tabs tiotropium bromide 2.5 2 puff inhalation DAILY #1 g 02/02/23 mcg/actuation mist for inhalation (Spiriva Respimat) ketorolac 10 mg tablet 10 mg PO Q8H 5 days #15 tabs 11/11/23 Allergies Allergy/AdvReac Type Severity Reaction Status Date / Time azithromycin Allergy Intermediate Bloody Verified 10/16/23 05:54 Stools latex Allergy Intermediate Rash Verified 10/16/23 05:54 oxycodone Allergy Intermediate Agitated Verified 10/16/23 05:54 scopolamine Allergy Intermediate Tremors Verified 10/16/23 05:54 basil Allergy Rash Verified 10/16/23 05:54 acetaminophen [From Percocet] AdvReac Confusion Verified 10/16/23 05:54 Review of Systems Status of ROS Reports: 10 or more systems reviewed and unremarkable except as noted in History and below Narrative Constitutional: No fevers, no weight gain or loss. Eyes: No discharge. No vision changes. HENT: No congestion, no sore throat, no ear pain. Cardiovascular: No chest pain, no palpitations. Respiratory: No shortness of breath, no wheezes, no cough. Gastrointestinal: No vomiting, no diarrhea. Abdominal pain as described above. Genitourinary: No dysuria, no hematuria. Musculoskeletal: Normal range of motion. Skin: No rashes, no pruritis. Neurological: No dizziness, weakness, sensory change, speech change. Endo/Heme/Allergies: No bruising or bleeding. No polydipsia. Pysch: no suicidality, no anxiety, no insomnia. All other systems reviewed and are negative. 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 - Unspecified convulsions (ICD-10) RODRICK (obstructive sleep apnea) ?G47.33 - Obstructive sleep apnea (adult) (pediatric) (ICD-10) ADHD ?F90.9 - Attention-deficit hyperactivity disorder, unspecified type (ICD-10) Hyperthyroidism ?E05.90 - Thyrotoxicosis, unspecified without thyrotoxic crisis or storm (ICD-10) Hydrocephalus ?G91.9 - Hydrocephalus, unspecified (ICD-10) Hyperlipidemia ?E78.5 - Hyperlipidemia, unspecified (ICD-10) Anxiety and depression ?F41.9 - Anxiety disorder, unspecified (ICD-10) ?F32.A - Depression, unspecified (ICD-10) Asthma ?J45.909 - Unspecified asthma, uncomplicated (ICD-10) Surgical History History of ear surgery ?Z98.890 - Other specified postprocedural states (ICD-10) History of strabismus surgery ?Z98.890 - Other specified postprocedural states (ICD-10) Social History Narrative: on disability since 2009; lives alone with her cat. nonsmoker, no drugs, no significant tobacco history adopted, her two adopted aunts are her family contacts. What is your current living situation?: I presently have a place to live Problems where you live: no known problems Problems where you live details: None In the past 12 months, utilities in danger of being shut off: no In past 12 months, lack of transportation kept you from medical appts, meetings, work, or getting things needed for daily living: no In the past 12 mos, have been you worried that your food would run out before you had money to buy more?: never true In the past 12 mos, the food you bought just didn't last and you didn't have money to buy more?: never true Highest level of school completed/degree received: Associate degree: academic program Smoking Status: Never smoker Do you use any of these nicotine containing products: None Second hand tobacco smoke exposure: No How often do you have a drink containing alcohol: never How often do you have six or more drinks on one occasion: Never AUDIT-C Alcohol total score: 0 Non-prescribed substance use: denies use Caffeine: Yes (Pop ocassionally) How often does anyone, including family, friends and others, physically hurt you : never How often does anyone, including family, friends and others, insult or talk down to you: never How often does anyone, including family, friends and others, threaten you with harm: never How often does anyone, including family, friends and others, scream or curse at you: never service: No Exam Narrative: Exam Narrative: Constitutional: Well-developed, well-nourished, no acute distress. HEENT: Normocephalic, atraumatic. Neck: Normal range of motion. Nontender. Supple. Heart: Regular. No murmurs. Normal rate. Intact distal pulses. Lungs: Clear to auscultation. No chest discomfort. No wheezes, rhonchi, or rales. Abdomen: Normal bowel sounds. Diffuse mild tenderness on palpation. No rebound tenderness. Genitalia: Deferred. Back: No midline tenderness. Normal range of motion. Extremities: Normal range of motion. No injury. Skin: Intact. No rash. Warm. No erythema or pallor. Neurologic: No altered sensation. No weakness. Alert and oriented. Psychiatric: No suicidality. No anxiety or depression. No insomnia. Nursing notes and vitals signs are reviewed. Const: Vital Signs, click to edit/add: Vital Signs - 24 hr 11/11/23 15:44 Temperature 97.5 F L Pulse Rate [Pulse Oximeter] 89 Respiratory Rate 20 Blood Pressure [Ri ght Upper Arm] 128/82 Pulse Oximetry 92 Oxygen Delivery Me thod Nasal Cannula Oxygen Flow Rate 1 Course Vital Signs Vital signs: Initial Vital Signs Temperature 97.5 F L 11/11/23 15:44 Temperature Source Temporal Artery Scan 11/11/23 15:44 Pulse Rate 89 11/11/23 15:44 Respiratory Rate 20 11/11/23 15:44 Blood Pressure 128/82 11/11/23 15:44 Blood Pressure Mean 97 11/11/23 15:44 Pulse Oximetry 92 11/11/23 15:44 Oxygen Delivery Method Nasal Cannula 11/11/23 15:44 Oxygen Flow Rate 1 11/11/23 15:44 Vital Signs Temperature 97.5 F L 11/11/23 15:44 Pulse Rate 89 11/11/23 15:44 Respiratory Rate 20 11/11/23 15:44 Blood Pressure 128/82 11/11/23 15:44 Pulse Oximetry 92 11/11/23 15:44 Oxygen Delivery Method Nasal Cannula 11/11/23 15:44 Oxygen Flow Rate 1 11/11/23 15:44 Temperature 97.5 F L 11/11/23 15:44 Pulse Rate 89 11/11/23 15:44 Respiratory Rate 20 11/11/23 15:44 Blood Pressure 128/82 11/11/23 15:44 Pulse Oximetry 92 11/11/23 15:44 Oxygen Delivery Method Nasal Cannula 11/11/23 15:44 Oxygen Flow Rate 1 11/11/23 15:44 Medications Administered Medications: Discontinued Medications Generic Name Dose Route Start Last Admin Trade Name Freq PRN Reason Stop Dose Admin Ketorolac Tromethamine 30 mg 11/11/23 15:59 11/11/23 16:33 Ketorolac 30 Mg/Ml Inj IVP 11/11/23 16:00 30 mg ONCE ONE Administration MDM - Abdominal Pain MDM Narrative Medical decision making narrative: This patient comes in reporting abdominal pain as described above. She arrives with normal vital signs and her abdominal exam is reassuring with normal bowel sounds and no rebound tenderness. She has some diffuse abdominal pain but does not appear to be in much discomfort. An IV was established and labs are acqui red. The labs all returned with reassuring findings. There is no evidence of urinary tract infection on urinalysis. The patient did receive an IV dose of Toradol and this brought sufficient relief to her symptoms. She is okay to be discharged home and did receive a prescription for Toradol. Lab Data Labs: Lab Results 11/11/23 11/11/23 Range/Units 16:30 16:47 WBC 8.97 (4.50-11.00) K/uL RBC 4.42 (4.00-5.20) m/uL Hgb 13.1 (12.0-16.0) gm/dL Hct 40.6 (33.0-51.0) % MCV 92 (80-100) fL MCH 30 (26-34) pg MCHC 32 (32-36) gm/dL RDW Coeff of Tomy 13.3 (11.5-15.5) % Plt Count 202 (140-440) K/uL Neut % (Auto) 73.3 H (42.0-72.0) % Lymph % (Auto) 17.5 L (20-44) % Will % (Auto) 5.7 (0.0-11.0) % Eos % (Auto) 2.7 (0.0-7.0) % Baso % (Auto) 0.4 (0.0-3.0) % Neut # (Auto) 6.60 (1.7-7.0) K/uL Lymph # (Auto) 1.60 (0.90-2.90) K/uL Will # (Auto) 0.50 (0.00-0.90) K/UL Eos # (Auto) 0.24 (0.00-0.50) K/uL Baso # (Auto) 0.04 (0.00-0.30) K/uL Abs Immat Gran (auto) 0.04 (0.00-0.30) K/uL Imm/Tot Granulo (auto) 0.4 % Sodium 139 (135-149) mmol/L Potassium 4.1 (3.6-5.1) mmol/L Chloride 102 (96-114) mmol/L Carbon Dioxide 31 (20-32) mmol/L Anion Gap 6 L (7-15) mEq/L BUN 11 (5-24) mg/dL Creatinine 0.6 (0.5-1.5) mg/dL Estimated Creat Clear 192.95 Estimated GFR 112 ml/min Glucose 110 (60-115) mg/dL Calcium 9.0 (8.4-10.6) mg/dL Urine Color Yellow (Yellow) Urine Appearance Slightly Cloudy A (Clear) Urine pH 6.0 (5.0-8.5) Ur Specific [place] 1.020 (1.000-1.030) Urine Protein Negative (Negative) Urine Glucose (UA) Negative (Negative) Urine Ketones Negative (Negative) Urine Blood Negative (Negative) Urine Nitrite Negative (Negative) Urine Bilirubin Negative (Negative) Urine Urobilinogen 0.2 (0.2-1.0) Ur Leukocyte Esterase Negative (Negative) Urine RBC 0-2 (0-2) Urine WBC 2-5 (0-5) Ur Squamous Epith Cells Moderate A (None-Few) Amorphous Sediment Moderate A (None) Urine Bacteria Moderate A (None) Discharge Plan Discharge Clinical Impression: Abdominal pain Patient Disposition: Home, Self-Care Condition: Improved Additional Instructions: Take medication as needed and indicated. Follow up with MD or return if symptoms are persistent or worsening. Prescriptions: New ketorolac 10 mg tablet 10 mg PO Q8H 5 Days Qty: 15 0RF No Action levetiracetam [Keppra] 750 mg tablet 750 mg PO BID solifenacin 10 mg tablet 10 mg PO DAILY potassium chloride 10 mEq tablet extended release 10 meq PO DAILY Rx Instructions: take 2 tablets daily levothyroxine 100 mcg tablet 100 mcg PO DAILY montelukast 10 mg tablet 10 mg PO HS mirabegron [Myrbetriq] 50 mg tablet extended release 24 hr 50 mg PO DAILY Patient Comments: albuterol sulfate 90 mcg/actuation HFA aerosol inhaler 2 puff INHALATION Q4H PRN levothyroxine 125 mcg tablet 125 mcg PO QAM cholecalciferol (vitamin D3) 50 mcg (2,000 unit) capsule 50 mcg PO DAILY paroxetine HCl 40 mg tablet 40 mg PO DAILY Patient Comments: furosemide 40 mg Tablet 40 mg PO DAILY Qty: 30 0RF prednisone 20 mg Tablet 40 mg PO DAILYWM Qty: 2 0RF albuterol sulfate 2.5 mg /3 mL (0.083 %) solution for nebulization 2.5 mg inhalation Q8H PRNQty: 1 0RF budesonide-formoterol [Symbicort] 160-4.5 mcg/actuation HFA aerosol inhaler 2 puff INHALATION BID Qty: 1 0RF Spiriva Respimat 2.5 mcg/actuation mist 2 puff inhalation DAILY Qty: 1 0RF ipratropium-albuterol 0.5 mg-3 mg(2.5 mg base)/3 mL solution for nebulization 3 ml inhalation Q6-8H PRNQty: 90 0RF omeprazole 20 mg capsule,delayed release(DR/EC) 40 mg PO DAILY Follow Up/Referrals: Geronimo Lamb MD [Primary Care Provider] - Stand Alone Forms: [facility] Info Instructions
--- OUTSIDE RECORDS SUMMARY | 2023-11-11 16:06 | XMS_ITS | Referral Summary ---
Author Organization [facility] Address [address] [place] [address] Care Team Providers Care Field Nurse Case Manager Name Role Phone Elsewhere, Pcp Primary Care Provider Unavailabl e Source Comments Patient records contain information from all sites at [facility]. For routine questions regarding patient records, call [phone] during business hours, M-F 8:00 AM - 5:00 PM Central Time. Record requests for emergency care only can be directed to [phone] at any time.[facility] Allergies Active Allergy Reactions Criticality Noted [...] Sex Assigned at Female 06/02/2018 2:11 PM INSTRUMENTATION MANAGER Gender Identity Female 06/02/2018 2:11 PM INSTRUMENTATION MANAGER Sexual Orientation Choose not to disclose 2018 2:11 PM INSTRUMENTATION MANAGER Last Filed Vital Signs Vital Sign [...] on file Medical Devices Implanted Type Area Nurse Aide Device Identifier Shelf Expiration Date Model / Serial / Lot Ear Implant- [id number] Implanted:11/24 (Quantity not on file) Ear Implant Ear Olympus Bernice Vega TORP Plasti-pore [id number] / / [id number] Description:[facility], [place], [place]. Ear implant-Vega TOPR Plasti-pore MRI Safe Procedures Procedure Name Priority Date/Time Associated Diagnosis Comments EXTI THYROID-STIMULATING HORMONE-SENSITIVE (S-TSH), S Routine 06/10/2023 3:22 PM INSTRUMENTATION MANAGER EXTI LIPID PANEL W REFLEX MEASURED LDL Routine 03/19/2023 12:35 PM CDT EXTI BASIC METABOLIC PANEL, S/P Routine 03/19/2023 12:35 PM CDT from Last 3 Months or Most Recently Relevant to Health Maintenance Care Teams Field Nurse Case Manager Relationship Specialty Start Date End Date Elsewhere, Pcp PCP - General Internal Medicine 12/04/18
--- OUTSIDE RECORDS SUMMARY | 2023-11-11 16:06 | XMS_ITS ---
Author Organization [facility] Address [address] [place] [address] Care Team Providers Care Financial Accounting Analyst Name Role Phone Unavailable Unavailable Unavailable Surgery Details Not on file Complications Check Surgery Details section. Procedure Estimated Blood Loss Check Surgery Details section. Procedure Findings Check Surgery Details section. Procedure Specimens Taken Check Surgery Details section.
--- OUTSIDE RECORDS SUMMARY | 2023-11-11 16:06 | XMS_ITS | Clinical Summary ---
Author Organization [employer] [facility] Address [place], [place] [address] Care Team Providers Care Electric Meter Repairer Name Role Phone Paolo Limon MD Unavailable Talon Durham MD Unavailable Laura Gardner PsyD, Unavailable [phone] Geronimo Lamb MD Primary Care Provider Allergies [...] Refills Start Date End Date Status [facility], medication kit planner with alarm 1 unit 0 04/22/2014 [...] 2,000 units by mouth. Active medication order composerIndications :Nocturnal hypoxemia Oxygen [...] Size large. 60 Each 11 01/15/2023 Active tiotropium (SPIRIVA HANDIHALER) 18 mcg inhalation [...] a meal. 180 Tablet 3 03/06/2023 Active albuterol HFA (PRO-AIR; VENTOLIN; PROVENTIL) 90 mcg/actuation inhalerIndications: Moderate persistent asthma, uncomplicated INHALE 1 TO 2 PUFFS BY MOUTH EVERY 4 HOURS NEEDED FOR SHORTNESS OF BREATH 1ST CHOICE 17 Each 3 04/25/2023 Active CPAPIndications:RODRICK (obstructive sleep apnea) CPAP machine for home use at pressure 13cmw, full face mask x1/3month with a full face cushion x1/mo 1 Each 11 07/24/2023 Active levothyroxine (SYNTHROID) 100 mcg tabletIndications:H ypothyroidism (acquired) Take 1 Tablet (100 mcg) by mouth before breakfast. 60 Tablet 5 08/05/2023 Active levETIRAcetam (KEPPRA) 750 mg tabletIndications:S eizure (HC) TAKE 1 TABLET (750 MG) BY MOUTH TWO TIMES DAILY. 180 Tablet 1 09/25/2023 Active Myrbetriq 50 mg tabletIndications:U rge urinary incontinence TAKE 1 TABLET BY MOUTH EVERY DAY 90 Tablet 10/07/2023 Active omeprazole (PRILOSEC) 20 mg Delayed-Release capsuleIndications: Chronic GERD TAKE 2 CAPSULES (40 MG) BY MOUTH ONCE DAILY BEFORE A MEAL. 180 Capsule 2 10/07/2023 Active montelukast (SINGULAIR) 10 mg tabletIndications:A llergy, sequela TAKE 1 TABLET BY MOUTH EVERYDAY AT BEDTIME 90 Tablet 2 10/07/2023 Active PARoxetine (PAXIL) 40 mg tabletIndications:A nxiety and depression TAKE 1 TABLET BY MOUTH EVERY DAY IN THE MORNING 90 Tablet 10/10/2023 Active Active Problems Problem Noted Date Diagnosed [...] Anxiety and depression Dizziness Overview: Eval by [facility] neurology 2018. Thought to be [...] Encounters Date Type Department Care Team Description 11/11/2023 Telephone [facility] [address] [place] [address] Dread Villavicencio MD Results 11/05/2023 12:45 PM CDT Orders Only [facility] [address] [place] [address] Lab, [facility] 11/05/2023 11:40 AM CDT Office Visit [facility] [address] [place] [address] Dread Villavicencio MD Follow Up (Seizure, having more neurological symptoms, having a hard time finding words, hands and feet going numb but nothing else. When sleeping, not sure if having seizure but she gets paralyzed where she can only move her head to look around but nothing else. ) 11/05/2023 Travel 10/16/2023 Orders Only [facility] Scanner 1 scan: (1-Ord) MARIAN, FACIAL BONES WO, 10/16/2023 10/14/2023 9:30 AM CDT Office Visit [facility] [address] [place] [address] Ángel Campos, AuD Hearing Aid 10/14/2023 Telephone [facility] [address] [place] [address] Ángel Campos AuD Ear Problem 10/14/2023 Nurse Triage [facility] Centralized Nurse Triage Geronimo Lamb MD Mouth/Lip Problem 10/14/2023 Travel 10/09/2023 Refill [facility] [address] [place] [address] Geronimo Lamb MD Refill Request (Paroxetine) 10/06/2023 Refill [facility] [address] [place] [address] Geronimo Lamb MD Refill Request (Myrbetriq, Omeprazole, Montelukast) 09/25/2023 Refill [facility] [place] [facility] [address] [place] [address] Dread Villavicencio MD Refill Request (Levetiracetam) 09/01/2023 2:55 PM CDT Office Visit [facility] [address] [place] [address] Geronimo Lamb MD Form (For assisted living) 09/01/2023 Travel from Last 3 Months Immunizations Name Administration Dates Next Due COVID-19 Vaccine Spikevax (M oderna 50mcg/0.5mL) 12YO+ [id number] Formula PF 03/19/2023 COVID-19 vaccine ([employer]Bio NTech 30mcg/0.3mL) 12YO+ BIVALENT PF, MDV 05/01/2022 COVID-19 vaccine (Pfizer-Bio NTech 30mcg/0.3mL) 12YO+ VAL-SUCROSE PF, MDV 08/29/2021 Influenza Virus, Unspecified 05/27/2014 Influenza, IIV3 (Age >=3 years) 05/24/20 14,06/09/2013,06/05/2012,2009 Influenza, IIV4 03/19/2023,,03/09/2018,2015,02/06/2015 Pneumococcal Conj 20-valent [...] Sign Reading Time Taken Comments Blood Pressure 125/85 11/05/2023 11:35 AM CDT Pulse 92 11/05/2023 11:35 AM CDT Temperature 36.7 ??C (98.1 ??F) 05/15/2023 1:42 PM CS T Respiratory Rate 90 06/10/2023 2:35 PM PROJECT MANAGEMENT SPECIALIST Oxygen Saturation 88% 11/05/2023 11:35 AM CDT Inhaled Oxygen Concentration - - Weight 105.7 kg (233 lb) 11/05/2023 11:35 AM CDT Height 142.2 cm (4' 8) 07/24/2023 2:36 PM PROJECT MANAGEMENT SPECIALIST Body Mass Index 52.24 07/24/2023 2:36 PM PROJECT MANAGEMENT SPECIALIST Plan of Treatment Upcoming Encounters Date Type Department Care Team (Late st Contact Info) Description 11/13/2023 10:35 AM CDT Office Visit [facility] [address] [place] [address] Geronimo Lamb MD [address] [place] [address] 02/05/2024 2:30 PM CDT Office Visit [facility] [address] [place] [address] Paolo Limon MD [address] [place] [address] Health Maintenance Due Date Last Done Comments [...] Procedure Name Priority Date/Time Associated Diagnosis Comments LEVETIRACETAM (KEPPRA) Routine 12:29 PM CDT Seizure (HC) TSH WITH REFLEX Routine 11/05/2023 12:29 PM CDT Hypothyroidism (acquired) SCAN-CT INTERPRETATION 4 12:00 AM CDT LIPID PANEL W REFLEX MEASURED LDL Routine 03/19/2023 12:35 PM CDT Hyperlipidemia, unspecified hyperlipidemia type ANTI HIV 1/2 Routine 05/01/2022 4:36 PM PROJECT MANAGEMENT SPECIALIST Encounter for screening for HIV ANTI HCV Routine 12/05/2021 9:30 AM CDT Need for hepatitis C screening test SCAN-MAMMOGRAPHY REPORT 02/24/2019 12:00 AM CDT from Last 3 Months or Most Recently Relevant to Health Maintenance Results * TSH WITH REFLEX (11/05/2023 12:29 PM CDT) TSH 1.86 0.27 - 4.20 uIU/mL 11/05/2023 11:39 PM CDT [facility] Blood BLOOD SPECIMEN / Unknown Venipuncture / Unknown 11/05/2023 12:29 PM CDT 11/05/2023 12:30 PM CDT [facility] - 11/05/2023 11:39 PM CDT In Adults, TSH values between 5.00 and 10.00 uIU/ml do not necessarily indicate the presence of Hypothyroidism. Correlation with clinical findings such as presence of goiter and/or Thyroperoxidase (TPO) Antibody may be helpful. For more information please refer to SIVAN 2004; 291: 228-238. Geronimo Lamb MD CHEMISTRY [facility] [address] [place] [address], * LEVETIRACETAM (KEPPRA) (11/05/2023 12:29 PM CDT) LEVETIRACETAM (KEPPRA) 19.1 6.0 - 46.0 ug/mL 11/05/2023 11:58 PM CDT [facility] Blood BLOOD SPECIMEN / Unknown Venipuncture / Unknown 11/05/2023 12:29 PM CDT 11/05/2023 12:30 PM CDT Narrative [facility] - 11/05/2023 11:58 PM CDT Reference Range is based on Trough Steady State in patients receiving recommended daily dose. ??The relationship between serum concentrations and toxicity is not known. Bivaracetam (Briviact??) interferes with measurements of levetiracetam (Keppra??) in the ARK Levetiracetam Assay Dread Villavicencio MD SEND OUTS [facility] [address] [place] [address], * SCAN-CT INTERPRETATION (10/16/2023 12:00 AM CDT) Anatomical Region Laterality Modality Other Scanner OTHER * (ABNORMAL) LIPID PANEL W REFLEX MEASURED LDL (03/19/2023 12:35 PM CDT) CHOLESTEROL,TOTAL 258(H) 100 - 199 mg/dL 03/20/2023 8:11 AM CDT [facility] Comment: Cholesterol, Total Reference Ranges Desirable <200 mg/dL Borderline 200-239 mg/dL High >=240 mg/dL TRIGLYCERIDES 159(H) <150 mg/dL 03/20/2023 8:11 AM CDT [facility] HDL CHOLESTEROL 55 >40 mg/dL 8:11 AM CDT [facility] NON-HDL CHOLESTEROL 203(H) <145 mg/dl 03/20/2023 8:11 AM CDT [facility] CHOL/HDL RATIO 4.69(H) <4.50 03/20/2023 8:11 AM CDT [facility] LDL CHOLESTEROL 171(H) <=130 mg/dL 03/20/2023 8:11 AM CDT [facility] VLDL CHOLESTEROL 32(H) <=30 mg/dL 03/20/2023 8:11 AM CDT [facility] PROVIDER ORDERED STATUS RANDOM 03/20/2023 8:11 AM CDT [facility] Blood BLOOD SPECIMEN / Unknown Butterfly / Unknown 03/19/2023 12:35 PM CDT 03/19/2023 12:38 PM CDT Geronimo Lamb MD CHEMISTRY Performing Organization Address City/[facility]/ZIP Co de Phone Number [facility] [address] [place] [address], * ANTI HIV 1/2 (05/01/2022 4:36 PM PROJECT MANAGEMENT SPECIALIST) HIV-1/HIV-2 ANTIBODY Non-Reacti ve Non-Reacti ve 05/04/2022 9:59 PM PROJECT MANAGEMENT SPECIALIST [facility] Comment:HIV-1 p24 and HIV-1/ HIV-2 Ab not detected. Blood BLOOD SPECIMEN / Unknown Butterfly / Unknown 05/01/2022 4:36 PM PROJECT MANAGEMENT SPECIALIST 05/01/2022 4:41 PM PROJECT MANAGEMENT SPECIALIST Geronimo Lamb MD SEND OUTS Performing Organization Address [facility]/ZIP Co de Phone Number [facility] [address] [place] [address], [place] * ANTI HCV (12/05/2021 9:30 AM CDT) HEPATITIS C ANTIBODY Non-React shikha Non-React shikha 12/05/2021 9:16 PM CDT [facility] Comment:Antibodies to HCV no t detected; does not exclude the possibility of exposure to HCV. Blood BLOOD SPECIMEN / Unknown Venipuncture / Unknown 12/05/2021 9:30 AM CDT 12/05/2021 9:33 AM CDT Geronimo Lamb MD SEND OUTS [facility] [address] [place] [id number], [place] * SCAN-MAMMOGRAPHY REPORT (02/24/2019 12:00 AM CDT) Anatomical Region Laterality Modality Other Scanner OTHER from Last 3 Months or Most Recently Relevant to Health Maintenance Care Teams Electric Meter Repairer Relationship Specialty Start Date End Date Geronimo Lamb MD [address] [place] [address] PCP - General Family Practice 04/23/21 Paolo Limon MD Sleep Medicine 10/28/11 Talon Durham MD Neurology Neurology 11/26/11 Laura Gardner PsyD, Psychology 09/14/13
--- OUTSIDE RECORDS SUMMARY | 2023-11-11 16:06 | XMS_ITS | Clinical Summary ---
Author Organization [facility] Address [address] [place] [address] Care Team Providers Care Lipcoat Sprayer Name Role Phone Elsewhere, Pcp Primary Care Provider Unavailabl e Source Comments Patient records contain information from all sites at [facility]. For routine questions regarding patient records, call [phone] during business hours, M-F 8:00 AM - 5:00 PM Central Time. Record requests for emergency care only can be directed to [phone] at any time.[facility] Allergies Active Allergy Reactions Criticality Noted [...] Sex Assigned at Female 06/02/2018 2:11 PM HAND ROLLER Gender Identity Female 06/02/2018 2:11 PM HAND ROLLER Sexual Orientation Choose not to disclose 2018 2:11 PM HAND ROLLER Last Filed Vital Signs Vital Sign Reading [...] history exists Medical Devices Implanted Type Area Repairer Controller Tester Device Identifier Shelf Expiration Date Model / Serial / Lot Ear Implant- [id number] Implanted:11/24 (Quantity not on file) Ear Implant Ear [employer] Bernice Vega TORP Plasti-pore [id number] / / [id number] Description:[place], [place]. Ear implant-Vega TOPR Plasti-pore MRI Safe Procedures Procedure Name Priority Date/Time Associated Diagnosis Comments EXTI THYROID-STIMULATING HORMONE-SENSITIVE (S-TSH), S Routine 06/10/2023 3:22 PM HAND ROLLER EXTI LIPID PANEL W REFLEX MEASURED LDL Routine 03/19/2023 12:35 PM CDT EXTI BASIC METABOLIC PANEL, S/P Routine 03/19/2023 12:35 PM CDT from Last 3 Months or Most Recently Relevant to Health Maintenance Care Teams Lipcoat Sprayer Relationship Specialty Start Date End Date Elsewhere, Pcp PCP - General Internal Medicine 12/04/18
[2023-11-11] MEDS: KETOROLAC 30 MG/ML inj IVP (16:33)
[2023-11-11 16:37] LABS: Basophils Absolute Auto 0.04 K/uL (0.00-0.30); Basophils Percent Auto 0.4 % (0.0-3.0); Eosinophils Absolute Auto 0.24 K/uL (0.00-0.50); Eosinophils Percent Auto 2.7 % (0.0-7.0); Hematocrit 40.6 % (33.0-51.0); Hemoglobin* 13.1 gm/dL (12.0-16.0); Immature Granulocytes Abs Auto 0.04 K/uL (0.00-0.30); Immature Granulocytes Pct Auto 0.4 %; Lymphocytes Percent Auto 17.5 % (20-44); Mean Corpuscular HGB Conc 32 gm/dL (32-36); Mean Corpuscular Hemoglobin 30 pg (26-34); Mean Corpuscular Volume 92 fL (80-100); Monocytes Percent Auto 5.7 % (0.0-11.0); Neutrophils Percent Auto 73.3 % (42.0-72.0); Platelet Count* 202 K/uL (140-440); RDW Coefficient of Variation % 13.3 % (11.5-15.5); Red Blood Count 4.42 m/uL (4.00-5.20); White Blood Count* 8.97 K/uL (4.50-11.00)
[2023-11-11 16:38] LABS: Slide Review Reflex No
[2023-11-11 16:53] LABS: Appearance Urine Slightly Cloudy (Clear); Bilirubin Urine Negative (Negative); Blood Urine Negative (Negative); Color Urine Yellow (Yellow); Glucose Urine Negative (Negative); Ketones Urine Negative (Negative); Leukocyte Esterase Urine Negative (Negative); Nitrite Urine Negative (Negative); Protein Urine Negative (Negative); Urobilinogen Urine 0.2 (0.2-1.0)
[2023-11-11 17:04] LABS: Chloride* 102 mmol/L (96-114); Potassium* 4.1 mmol/L (3.6-5.1); Sodium* 139 mmol/L (135-149)
[2023-11-11 17:06] LABS: Amorphous Sediment Urine Moderate; Bacteria Urine Moderate; RBC Urine 0-2 (0-2); Squamous Epithelial Cell Urine Moderate (None-Few)
[2023-11-11 17:06] LABS: Creatinine* 0.6 mg/dL (0.5-1.5); Est. Creatinine Clearance* 192.95; Estimated Glomerular Filt Rate 112 ml/min
[2023-11-11 17:07] LABS: Anion Gap 6 mEq/L (7-15); Blood Urea Nitrogen* 11 mg/dL (5-24); Carbon Dioxide* 31 mmol/L (20-32); Glucose* 110 mg/dL (60-115)
== END 2023-11-11 18:15 | disposition home or self-care (01) ==
PROVIDERS: Emergency Provider Emergency Medicine Emergency Medical Services; PCP Family Medicine
DX: R10.9 Unspecified abdominal pain (principal)
CPT/HCPCS: 36415; 80048; 81001; 85025; 87086; 96374; 99284; J1885

== ENCOUNTER 2023-11-14 11:54 | Outpatient (CLI) | payer MEDICAID, SELFPAY ==
--- OUTSIDE RECORDS SUMMARY | 2023-11-15 07:17 | XMS_ITS | Clinical Summary ---
Author Organization [facility] Address [address] [place] [address] Care Team Providers Care Sales Representative Cash Registers Name Role Phone Elsewhere, Pcp Primary Care Provider Unavailabl e Source Comments Patient records contain information from all sites at [facility]. For routine questions regarding patient records, call [phone] during business hours, M-F 8:00 AM - 5:00 PM Central Time. Record requests for emergency care only can be directed to [phone] at any time.[facility] Allergies Active Allergy Reactions Criticality Noted [...] Sex Assigned at Female 06/02/2018 2:11 PM I&C TECHNICIAN Gender Identity Female 06/02/2018 2:11 PM I&C TECHNICIAN Sexual Orientation Choose not to disclose 2018 2:11 PM I&C TECHNICIAN Last Filed Vital Signs Vital Sign Reading [...] history exists Medical Devices Implanted Type Area Small Business Representative Device Identifier Shelf Expiration Date Model / Serial / Lot Ear Implant- 011 Implanted:11/24 (Quantity not on file) Ear Implant Ear Olympus Bernice Vega TORP Plasti-pore [id number] / / [id number] Description:[place], [place]. Ear implant-Vega TOPR Plasti-pore MRI Safe Procedures Procedure Name Priority Date/Time Associated Diagnosis Comments EXTI THYROID-STIMULATING HORMONE-SENSITIVE (S-TSH), S Routine 06/10/2023 3:22 PM I&C TECHNICIAN EXTI LIPID PANEL W REFLEX MEASURED LDL Routine 03/19/2023 12:35 PM CDT EXTI BASIC METABOLIC PANEL, S/P Routine 03/19/2023 12:35 PM CDT from Last 3 Months or Most Recently Relevant to Health Maintenance Care Teams Sales Representative Cash Registers Relationship Specialty Start Date End Date Elsewhere, Pcp PCP - General Internal Medicine 12/04/18
--- OUTSIDE RECORDS SUMMARY | 2023-11-15 07:18 | XMS_ITS | Referral Summary ---
Author Organization [facility] Address [address] [place] [address] Care Team Providers Care Government Program Manager Name Role Phone Elsewhere, Pcp Primary Care Provider Unavailabl e Source Comments Patient records contain information from all sites at [facility]. For routine questions regarding patient records, call [phone] during business hours, M-F 8:00 AM - 5:00 PM Central Time. Record requests for emergency care only can be directed to [phone] at any time.[facility] Allergies Active Allergy Reactions Criticality Noted Date [...] Sex Assigned at Female 06/02/2018 2:11 PM CONSULTING TECHNICAL MANAGER Gender Identity Female 06/02/2018 2:11 PM CONSULTING TECHNICAL MANAGER Sexual Orientation Choose not to disclose 2018 2:11 PM CONSULTING TECHNICAL MANAGER Last Filed Vital Signs Vital Sign [...] on file Medical Devices Implanted Type Area Line Haul Truck Driver Device Identifier Shelf Expiration Date Model / Serial / Lot Ear Implant- 011 Implanted:11/24 (Quantity not on file) Ear Implant Ear Olympus Bernice Vega TORP Plasti-pore [id number] / / [id number] Description:[facility], [place], [place]. Ear implant-Vega TOPR Plasti-pore MRI Safe Procedures Procedure Name Priority Date/Time Associated Diagnosis Comments EXTI THYROID-STIMULATING HORMONE-SENSITIVE (S-TSH), S Routine 06/10/2023 3:22 PM CONSULTING TECHNICAL MANAGER EXTI LIPID PANEL W REFLEX MEASURED LDL Routine 03/19/2023 12:35 PM CDT EXTI BASIC METABOLIC PANEL, S/P Routine 03/19/2023 12:35 PM CDT from Last 3 Months or Most Recently Relevant to Health Maintenance Care Teams Government Program Manager Relationship Specialty Start Date End Date Elsewhere, Pcp PCP - General Internal Medicine 12/04/18
--- OUTSIDE RECORDS SUMMARY | 2023-11-15 07:18 | XMS_ITS ---
Author Organization [facility] Address [address] [place] [address] Care Team Providers Care Principal Android Developer Name Role Phone Unavailable Unavailable Unavailable Surgery Details Not on file Complications Check Surgery Details section. Procedure Estimated Blood Loss Check Surgery Details section. Procedure Findings Check Surgery Details section. Procedure Specimens Taken Check Surgery Details section.
--- OUTSIDE RECORDS SUMMARY | 2023-11-15 07:18 | XMS_ITS | Clinical Summary ---
Author Organization [employer] [facility] Address [place], [place] [address] Care Team Providers Care Senior Oracle Database Developer Name Role Phone Paolo Limon MD Unavailable Talon Durham MD Unavailable Laura Gardner PsyD, Unavailable [phone] Geronimo Lamb MD Primary Care Provider Allergies [...] Dispensed Refills Start Date End Date Status [facility], medication party planner with alarm 1 unit 0 04/22/2014 [...] depression Dizziness Overview: Eval by [facility] neurology 2018. Thought to be functional. [...] Description 11/13/2023 10:35 AM CDT Office Visit [facility] [address] [place] [address] Geronimo Lamb MD Results (Discuss lab results); ER Follow up ([facility], 11/11/2023, abdominal pain) 11/13/2023 Travel 11/11/2023 Telephone [facility] [address] [place] [address] Dread Villavicencio MD Results 11/05/2023 12:45 PM CDT Orders Only [facility] [address] [place] [address] Lab, [place] Lab 11/05/2023 11:40 AM CDT Office Visit [facility] [address] [place] [address] Dread Villavicencio MD Follow Up (Seizure, having more neurological symptoms, having a hard time finding words, hands and feet going numb but nothing else. When sleeping, not sure if having seizure but she gets paralyzed where she can only move her head to look around but nothing else. ) 11/05/2023 Travel 10/16/2023 Orders Only [facility] Scanner 1 scan: (1-Ord) MARIAN, FACIAL BONES WO, 10/16/2023 10/14/2023 9:30 AM CDT Office Visit [facility] [address] [place] [address] Ángel Campos, AuD Hearing Aid 10/14/2023 Telephone [facility] [address] [place] [address] Ángel Campos, AuD Ear Problem 10/14/2023 Nurse Triage [facility] Nurse Triage Geronimo Lamb MD Mouth/Lip Problem 10/14/2023 Travel 10/09/2023 Refill [facility] [address] [place] [address] Geronimo Lamb MD Refill Request (Paroxetine) 10/06/2023 Refill [facility] [address] [place] [address] Geronimo Lamb MD Refill Request (Myrbetriq, Omeprazole, Montelukast) 09/25/2023 Refill [facility] [place] [facility] [address] [place] [address] Dread Villavicencio MD Refill Request (Levetiracetam) 09/01/2023 2:55 PM CDT Office Visit [facility] [address] [place] [address] Geronimo Lamb MD Form (For assisted living) 09/01/2023 Travel from Last 3 Months Immunizations Name Administration Dates Next Due COVID-19 Vaccine Spikevax (M oderna 50mcg/0.5mL) 12YO+ [id number] Formula PF 03/19/2023 COVID-19 vaccine (Pfizer-Bio NTech [...] T Respiratory Rate 90 06/10/2023 2:35 PM SHEET METAL ENGINEER Oxygen Saturation 92% 11/13/2023 10:40 AM CDT Inhaled Oxygen Concentration - - Weight 106.6 kg (235 lb) 11/13/2023 10:40 AM CDT Height 142.2 cm (4' 8) 07/24/2023 2:36 PM SHEET METAL ENGINEER Body Mass Index 52.69 07/24/2023 2:36 PM SHEET METAL ENGINEER Plan of Treatment Upcoming Encounters Date Type Department Care Team (Late st Contact Info) Description 02/05/2024 2:30 PM CDT Office Visit [facility] [address] [place] [address] Paolo Limon MD [address] [place] [address] 03/15/2024 9:00 AM CDT Orders Only [facility] [address] [facility] [place] [address] Lab, [place] 03/19/2024 1:15 PM CDT Office Visit [facility] [address] [place] [address] Geronimo Lamb MD [address] [place] [address] Health Maintenance Due Date Last Done Comments [...] ANTI HIV 1/2 Routine 05/01/2022 4:36 PM SHEET METAL ENGINEER Encounter for screening for HIV ANTI HCV Routine 12/05/2021 9:30 AM CDT Need for hepatitis C screening test SCAN-MAMMOGRAPHY REPORT 02/24/2019 12:00 AM CDT from Last 3 Months or Most Recently Relevant to Health Maintenance Results * TSH WITH REFLEX (11/05/2023 12:29 PM CDT) TSH 1.86 0.27 - 4.20 uIU/mL 11/05/2023 11:39 PM CDT [facility] Blood BLOOD SPECIMEN / Unknown Venipuncture / Unknown 11/05/2023 12:29 PM CDT 11/05/2023 12:30 PM CDT Narrative [facility] - 11/05/2023 11:39 PM CDT In Adults, TSH values between 5.00 and 10.00 uIU/ml do not necessarily indicate the presence of Hypothyroidism. Correlation with clinical findings such as presence of goiter and/or Thyroperoxidase (TPO) Antibody may be helpful. For more information please refer to SIVAN 2004; 291: 228-238. Geronimo Lamb MD CHEMISTRY Performing Organization Address [facility]/ZIP Co de Phone Number [facility] [address] [address], * LEVETIRACETAM (KEPPRA) (11/05/2023 12:29 PM CDT) LEVETIRACETAM (KEPPRA) 19.1 6.0 - 46.0 ug/mL 11/05/2023 11:58 PM CDT [facility] Blood BLOOD SPECIMEN / Unknown Venipuncture / Unknown 11/05/2023 12:29 PM CDT 11/05/2023 12:30 PM CDT Narrative [facility] - 11/05/2023 11:58 PM CDT Reference Range is based on Trough Steady State in patients receiving recommended daily dose. ??The relationship between serum concentrations and toxicity is not known. Bivaracetam (Briviact??) interferes with measurements of levetiracetam (Keppra??) in the ARK Levetiracetam Assay Dread Villavicencio MD SEND OUTS Performing Organization Address [facility] Co de Phone Number [facility] [address] [place] [address], * SCAN-CT INTERPRETATION (10/16/2023 12:00 AM CDT) Anatomical Region Laterality Modality Other Scanner OTHER * (ABNORMAL) LIPID PANEL W REFLEX MEASURED LDL (03/19/2023 12:35 PM CDT) CHOLESTEROL,TOTAL 258(H) 100 - 199 mg/dL 03/20/2023 8:11 AM CDT [facility] Comment: Cholesterol, Total Reference Ranges Desirable <200 mg/dL Borderline 200-239 mg/dL High >=240 mg/dL TRIGLYCERIDES 159(H) <150 mg/dL 03/20/2023 8:11 AM CDT [facility] HDL CHOLESTEROL 55 >40 mg/dL 8:11 AM CDT [facility] NON-HDL CHOLESTEROL 203(H) <145 mg/dl 03/20/2023 8:11 AM CDT [facility] CHOL/HDL RATIO 4.69(H) <4.50 03/20/2023 8:11 AM CDT [facility] LDL CHOLESTEROL 171(H) <=130 mg/dL 03/20/2023 8:11 AM CDT [facility] VLDL CHOLESTEROL 32(H) <=30 mg/dL 03/20/2023 8:11 AM CDT [facility] PROVIDER ORDERED STATUS RANDOM 03/20/2023 8:11 AM T [facility] Blood BLOOD SPECIMEN / Unknown Butterfly / Unknown 03/19/2023 12:35 PM CDT 03/19/2023 12:38 PM CDT Geronimo Lamb MD CHEMISTRY [facility] [address] [place] [address], [place] * ANTI HIV 1/2 (05/01/2022 4:36 PM SHEET METAL ENGINEER) HIV-1/HIV-2 ANTIBODY Non-Reacti ve Non-Reacti ve 05/04/2022 9:59 PM SHEET METAL ENGINEER [facility] Comment:HIV-1 p24 and HIV-1/ HIV-2 Ab not detected. Blood BLOOD SPECIMEN / Unknown Butterfly / Unknown 05/01/2022 4:36 PM SHEET METAL ENGINEER 05/01/2022 4:41 PM SHEET METAL ENGINEER Geronimo Lamb MD SEND OUTS [facility] [address] [place] [address], [place] * ANTI HCV (12/05/2021 9:30 AM CDT) HEPATITIS C ANTIBODY Non-React shikha Non-React shikha 12/05/2021 9:16 PM CDT [facility] Comment:Antibodies to HCV no t detected; does not exclude the possibility of exposure to HCV. Blood BLOOD SPECIMEN / Unknown Venipuncture / Unknown 12/05/2021 9:30 AM CDT 12/05/2021 9:33 AM CDT Geronimo Lamb MD SEND OUTS [facility] [address] [place] [address], * SCAN-MAMMOGRAPHY REPORT (02/24/2019 12:00 AM CDT) Anatomical Region Laterality Modality Other Scanner OTHER from Last 3 Months or Most Recently Relevant to Health Maintenance Care Teams Senior Oracle Database Developer Relationship Specialty Start Date End Date Geronimo Lamb MD [address] [place], [place] [id number] PCP - General Family Practice 04/23/21 Paolo Limon MD Sleep Medicine 10/28/11 Talon Durham MD Neurology Neurology 11/26/11 Laura Gardner PsyD, Psychology 09/14/13
== END 2023-11-14 11:55 | disposition home or self-care (01) ==
LOC: AMB 11-15 07:15
PROVIDERS: PCP Family Medicine; Visit Provider Student in an Organized Health Care Education/Training Program
DX: R10.9 Unspecified abdominal pain (principal)
CPT/HCPCS: A0425; A0429

== ENCOUNTER 2023-11-14 12:31 | Emergency (ER) | payer MEDICAID, SELFPAY ==
[2023-11-14 12:33] VITALS: BP 137/83; PULSE 86; RESP 18; TEMP 36.3; O2SAT 94
--- NOTE | 2023-11-14 12:54 | CRLHL7_ITS ---
For Patients: As a result of the Century Cures Act, medical imaging exams and procedure reports are released immediately into your electronic medical record. You may view this report before your referring provider. If you have questions, please contact your health care provider. INDICATION: Right lower quadrant pain TECHNIQUE: Axial images were obtained from the diaphragm to the pubic symphysis. Reformats were obtained in the coronal and sagittal plane. IV Contrast: 116 cc Isovue 370 Oral Contrast: None COMPARISON: None. FINDINGS: Lower chest: Minimal discoid atelectasis. Liver: Unremarkable. Normal in size and attenuation. No masses. Gallbladder and bile ducts: Cholelithiasis without wall thickening or pericholecystic inflammation. Spleen: Unremarkable. Normal in size without mass. Pancreas: Unremarkable. No mass or inflammation. Adrenal glands: Unremarkable. No nodules. Kidneys: Unremarkable. No masses, stones, or hydronephrosis. Vasculature: Unremarkable. GI tract: The stomach is unremarkable. No dilated loops of large or small intestine. Normal appendix. Pelvis: Unremarkable. Bones: Unremarkable for age. IMPRESSION: 1. No dilated bowel or localized inflammation. Normal appendix. 2. Cholelithiasis without CT evidence of cholecystitis. Please note that all CT scans at this facility use dose modulation, iterative reconstruction, and/or weight-based dosing when appropriate to reduce radiation dose to as low as reasonably achievable. Dictated by Adalid Amin MD @ 11/14/2023 2:36:26 PM (Electronically Signed)
--- NOTE | 2023-11-14 13:21 | ED_ITS ---
HPI - General Adult General Date Seen: 11/14/23 Chief complaint: Flank Pain Stated complaint: Abdominal pain Time Seen by Provider: 11/14/23 12:36 Source: patient and EMS Mode of arrival: EMS Limitations: no limitations History of Present Illness HPI narrative: Patient is a 48-year-old female presenting to the emergency department for right flank pain and generalized abdominal pain. She said she was here 3 days ago for abdominal pain have that time her pain was treated with Toradol. She was prescribed Toradol but did not need to fill it because the pain was being controlled with ibuprofen. She spoke to her primary care provider yesterday and considering ibuprofen has been working recommended to not fill her Toradol prescription. She is not taking ibuprofen since yesterday afternoon. Is not having worsening flank pain she describes as a 5 out 10 dull pain. Denies diarrhea, constipation, hematochezia, melena, nausea, chest pain, shortness of breath, lightheadedness, dizziness, weakness, numbness. Did state she had an episode of sleep paralysis today day prior to calling EMS which cause urinary incontinence. The sleep paralysis has been going on for several years in the urinary incontinence for the past few months. She has been evaluated by her neurologist for both already. No other concerns noted at this time. Of note the patient is currently on oxygen but she has been on continuously since 2020 when she got COVID. Has not needed any increasing oxygen demand. Related Data Home Medications ?Medication ?Instructions ?Recorded ?Confirmed albuterol sulfate 90 mcg/actuation 2 puff inhalation Q4H PRN 11/30/21 10/16/23 aerosol inhaler mirabegron 50 mg tablet,extended 50 mg PO DAILY 11/30/21 10/16/23 release 24 hr (Myrbetriq) montelukast 10 mg tablet 10 mg PO HS 11/30/21 10/16/23 omeprazole 20 mg capsule,delayed 40 mg PO DAILY 02/26/22 10/16/23 release levetiracetam 750 mg tablet 750 mg PO BID 11/25/22 10/16/23 (Keppra) solifenacin 10 mg tablet 10 mg PO DAILY 11/25/22 10/16/23 cholecalciferol (vitamin D3) 50 50 mcg PO DAILY 01/30/23 10/16/23 mcg (2,000 unit) capsule levothyroxine 125 mcg tablet 125 mcg PO QAM 01/30/23 10/14/23 paroxetine HCl 40 mg tablet 40 mg PO DAILY 01/30/23 10/16/23 levothyroxine 100 mcg tablet 100 mcg PO DAILY 10/16/23 10/16/23 potassium chloride 10 mEq 10 meq PO DAILY 10/16/23 10/16/23 tablet,extended release Previous Rx's ?Medication ?Instructions ?Recorded albuterol sulfate 2.5 mg/3 mL 2.5 mg (3 mL) inhalation Q8H PRN 02/02/23 (0.083 %) solution for nebulization #1 mL budesonide-formoterol HFA 160 2 puff inhalation BID #1 g 02/02/23 mcg-4.5 mcg/actuation aerosol inhaler (Symbicort) furosemide 40 mg tablet 40 mg PO DAILY #30 tabs 02/02/23 ipratropium 0.5 mg-albuterol 3 mg 3 ml inhalation Q6-8H PRN #90 mL 02/02/23 (2.5 mg base)/3 mL nebulization soln prednisone 20 mg tablet 40 mg (2 x 20 mg) PO DAILYWM #2 02/02/23 tabs tiotropium bromide 2.5 2 puff inhalation DAILY #1 g 02/02/23 mcg/actuation mist for inhalation (Spiriva Respimat) ketorolac 10 mg tablet 10 mg PO Q8H 5 days #15 tabs 11/11/23 Allergies Allergy/AdvReac Type Severity Reaction Status Date / Time azithromycin Allergy Intermediate Bloody Verified 10/16/23 05:54 Stools latex Allergy Intermediate Rash Verified 10/16/23 05:54 oxycodone Allergy Intermediate Agitated Verified 10/16/23 05:54 scopolamine Allergy Intermediate Tremors Verified 10/16/23 05:54 basil Allergy Rash Verified 10/16/23 05:54 acetaminophen [From Percocet] AdvReac Confusion Verified 10/16/23 05:54 Review of Systems Status of ROS: Reports: 10 or more systems reviewed and unremarkable except as noted in History and below [facility] Medical History Hypothyroidism ?E03.9 - Hypothyroidism, unspecified (ICD-10) Acute and chronic respiratory failure with hypoxia ?J96.21 - Acute and chronic respiratory failure with hypoxia (ICD-10) 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 - Unspecified convulsions (ICD-10) RODRICK (obstructive sleep apnea) ?G47.33 - Obstructive sleep apnea (adult) (pediatric) (ICD-10) ADHD ?F90.9 - Attention-deficit hyperactivity disorder, unspecified type (ICD-10) Hyperthyroidism ?E05.90 - Thyrotoxicosis, unspecified without thyrotoxic crisis or storm (ICD-10) Hydrocephalus ?G91.9 - Hydrocephalus, unspecified (ICD-10) Hyperlipidemia ?E78.5 - Hyperlipidemia, unspecified (ICD-10) Anxiety and depression ?F41.9 - Anxiety disorder, unspecified (ICD-10) ?F32.A - Depression, unspecified (ICD-10) Asthma ?J45.909 - Unspecified asthma, uncomplicated (ICD-10) Surgical History History of ear surgery ?Z98.890 - Other specified postprocedural states (ICD-10) History of strabismus surgery ?Z98.890 - Other specified postprocedural states (ICD-10) Social History Narrative: on disability since 2009; lives alone with her cat. nonsmoker, no drugs, no significant tobacco history adopted, her two adopted aunts are her family contacts. What is your current living situation?: I presently have a place to live Problems where you live: no known problems Problems where you live details: None In the past 12 months, utilities in danger of being shut off: no In past 12 months, lack of transportation kept you from medical appts, meetings, work, or getting things needed for daily living: no In the past 12 mos, have been you worried that your food would run out before you had money to buy more?: never true In the past 12 mos, the food you bought just didn't last and you didn't have money to buy more?: never true Highest level of school completed/degree received: Associate degree: academic program Smoking Status: Never smoker Do you use any of these nicotine containing products: None Second hand tobacco smoke exposure: No How often do you have a drink containing alcohol: never How often do you have six or more drinks on one occasion: Never AUDIT-C Alcohol total score: 0 Non-prescribed substance use: denies use Caffeine: Yes (Pop ocassionally) How often does anyone, including family, friends and others, physically hurt you : never How often does anyone, including family, friends and others, insult or talk down to you: never How often does anyone, including family, friends and others, threaten you with harm: never How often does anyone, including family, friends and others, scream or curse at you: never service: No Exam Narrative: Exam Narrative: Const: Well-nourished, Well-developed, in mild distress Eyes: PERRL, no conjunctival injection, and symmetrical lids HENT: Atraumatic external nose and ears. Moist mucous membranes. Neck: Symmetric, trachea midline, No thyromegaly. CVS: RRR, No murmurs or gallops. Peripheral pulses 2+ and equal in all extremities RESP: Unlabored respiratory effort. Clear to auscultation bilaterally. GI: Diffuse mild abdominal tenderness with some notable right flank tenderness, Nondistended, No rebound or guarding. MSK:Extremities w/o deformity, Normal Active ROM Skin: Warm, Dry. No rashes or lesions. Neuro: Normal Muscle tone, No focal neurological deficits. Psych: Awake, Alert, & Oriented x3. Appropriate mood and affect. Const: Vital Signs, click to edit/add: Vital Signs - 24 hr 11/14/23 12:33 11/14/23 13:30 Temperature 97.3 F L Pulse Rate [Right Pulse Oximeter] 86 Respiratory Rate 18 Blood Pressure [Ri ght Forearm] 137/83 Pulse Oximetry 94 94 Oxygen Delivery Me thod Nasal Cannula Nasal Cannula Oxygen Flow Rate 2 2 Course Vital Signs Vital signs: Initial Vital Signs Temperature 97.3 F L 11/14/23 12:33 Temperature Source Temporal Artery Scan 11/14/23 12:33 Pulse Rate 86 11/14/23 12:33 Pulse Rhythm Regular 11/14/23 12:33 Respiratory Rate 18 11/14/23 12:33 Blood Pressure 137/83 11/14/23 12:33 Blood Pressure Mean 101 11/14/23 12:33 Blood Pressure Position Sitting 11/14/23 12:33 Pulse Oximetry 94 11/14/23 12:33 Oxygen Delivery Method Nasal Cannula 11/14/23 12:33 Oxygen Flow Rate 2 11/14/23 12:33 Vital Signs Temperature 97.3 F L 11/14/23 12:33 Pulse Rate 86 11/14/23 12:33 Respiratory Rate 18 11/14/23 12:33 Blood Pressure 137/83 11/14/23 12:33 Pulse Oximetry 94 11/14/23 12:33 Oxygen Delivery Method Nasal Cannula 11/14/23 12:33 Oxygen Flow Rate 2 11/14/23 12:33 Temperature 97.3 F L 11/14/23 12:33 Pulse Rate 86 11/14/23 12:33 Respiratory Rate 18 11/14/23 12:33 Blood Pressure 137/83 11/14/23 12:33 Pulse Oximetry 94 11/14/23 13:30 Oxygen Delivery Method Nasal Cannula 11/14/23 13:30 Oxygen Flow Rate 2 11/14/23 13:30 Medications Administered Medications: Discontinued Medications Generic Name Dose Route Start Last Admin Trade Name Freq PRN Reason Stop Dose Admin Ketorolac Tromethamine 15 mg 11/14/23 12:54 11/14/23 13:38 Ketorolac 15 Mg/Ml Inj IVP 11/14/23 12:55 15 mg ONCE ONE Administration Medical Decision Making MDM Narrative Medical decision making narrative: Patient is a 48-year-old female presenting for right flank and right-sided abdominal pain. She also had some neural symptoms this morning but these are chronic issues in our already being monitored by her neurologist and did not need to be addressed here in the emergency department. Concerned this time includes appendicitis, nephrolithiasis, viral GI infection, seems unlikely to be SBO with no previous abdominal surgeries. But a CT scan of the abdomen pelvis better evaluated. Will also do a CBC, lipase, CMP. Patient states she is in menopause and is not . Urinalysis also ordered. Toradol ordered for pain Lab work returned showing no concerning findings in the cbc and CMP. Lipase within normal limits. Pain improved with the Toradol and she is feeling well at this time. CT scan the abdomen pelvis showed no acute abnormalities. IM not sure what exactly is causing her pain but does not appear to be any acute issues. She is unable to produce urine at this time as she had a large episode of incontinence, which again is chronic, before arriving. She does have a urinalysis done a couple days ago that did not show any signs of UTI and she is not having any dysuria at this time so I am okay with not having a urinalysis done. She will be discharged. She is agreeable to this plan. Lab Data Labs: Lab Results 11/14/23 Range/Units 13:25 WBC 7.52 (4.50-11.00) K/uL RBC 4.22 (4.00-5.20) m/uL Hgb 12.7 (12.0-16.0) gm/dL Hct 38.7 (33.0-51.0) % MCV 92 (80-100) fL MCH 30 (26-34) pg MCHC 33 (32-36) gm/dL RDW Coeff of Tomy 13.5 (11.5-15.5) % Plt Count 191 (140-440) K/uL Neut % (Auto) 74.1 H (42.0-72.0) % Lymph % (Auto) 17.6 L (20-44) % [place] % (Auto) 5.2 (0.0-11.0) % Eos % (Auto) 2.1 (0.0-7.0) % Baso % (Auto) 0.5 (0.0-3.0) % Neut # (Auto) 5.60 (1.7-7.0) K/uL Lymph # (Auto) 1.30 (0.90-2.90) K/uL [place] # (Auto) 0.40 (0.00-0.90) K/UL Eos # (Auto) 0.16 (0.00-0.50) K/uL Baso # (Auto) 0.04 (0.00-0.30) K/uL Abs Immat Gran (auto) 0.04 (0.00-0.30) K/uL Imm/Tot Granulo (auto) 0.5 % Sodium 139 (135-149) mmol/L Potassium 3.7 (3.6-5.1) mmol/L Chloride 100 (96-114) mmol/L Carbon Dioxide 34 H (20-32) mmol/L Anion Gap 5 L (7-15) mEq/L BUN 11 (5-24) mg/dL Creatinine 0.6 (0.5-1.5) mg/dL Estimated GFR 112 ml/min Glucose 105 (60-115) mg/dL Calcium 9.2 (8.4-10.6) mg/dL Total Bilirubin 0.6 (0.1-1.5) mg/dL AST 29 (12-35) U/L ALT 32 (4-35) U/L Alkaline Phosphatase 90 (40-150) U/L Total Protein 6.8 (6.0-8.3) g/dL Albumin 4.1 (3.3-5.0) g/dL Lipase 35 (23-300) U/L Imaging Data CT scan abdomen pelvis: Radiologist's impression: 1. No dilated bowel or localized inflammation. Normal appendix. 2. Cholelithiasis without CT evidence of cholecystitis. Please note that all CT scans at this facility use dose modulation, iterative reconstruction, and/or weight-based dosing when appropriate to reduce radiation dose to as low as reasonably achievable. Dictated by Adalid Amin MD @ 11/14/2023 2:36:26 PM ECG Data Attestation: I personally reviewed and interpreted this ECG as follows: Prior ECG tracings: available for review Interpretation: Normal sinus rhythm with rate of 81 beats per minute, normal intervals, normal axis, no ST or T-wave abnormalities. Appears similar to previous EKGs on file Discharge Plan Discharge Clinical Impression: Flank pain Abdominal pain Qualifiers: Abdominal location: generalized Qualified Code(s): R10.84 - Generalized abdominal pain Patient Disposition: Home, Self-Care Condition: Improved Instructions: Flank Pain (ED) Additional Instructions: Why do not know exactly what is causing your pain at this time I do not see any emergent issues in you can follow-up with the primary care provider if the symptoms continue. He can continue to try and manage your pain with ibuprofen but if that is not helping you can try the Toradol prescription previously given. Return to emergency department for new or worsening symptoms. Prescriptions: No Action levetiracetam [Keppra] 750 mg tablet 750 mg PO BID solifenacin 10 mg tablet 10 mg PO DAILY potassium chloride 10 mEq tablet extended release 10 meq PO DAILY Rx Instructions: take 2 tablets daily levothyroxine 100 mcg tablet 100 mcg PO DAILY ketorolac 10 mg tablet 10 mg PO Q8H 5 Days Qty: 15 0RF montelukast 10 mg tablet 10 mg PO HS mirabegron [Myrbetriq] 50 mg tablet extended release 24 hr 50 mg PO DAILY Patient Comments: albuterol sulfate 90 mcg/actuation HFA aerosol inhaler 2 puff INHALATION Q4H PRN levothyroxine 125 mcg tablet 125 mcg PO QAM cholecalciferol (vitamin D3) 50 mcg (2,000 unit) capsule 50 mcg PO DAILY paroxetine HCl 40 mg tablet 40 mg PO DAILY Patient Comments: furosemide 40 mg Tablet 40 mg PO DAILY Qty: 30 0RF prednisone 20 mg Tablet 40 mg PO DAILYWM Qty: 2 0RF albuterol sulfate 2.5 mg /3 mL (0.083 %) solution for nebulization 2.5 mg inhalation Q8H PRNQty: 1 0RF budesonide-formoterol [Symbicort] 160-4.5 mcg/actuation HFA aerosol inhaler 2 puff INHALATION BID Qty: 1 0RF Spiriva Respimat 2.5 mcg/actuation mist 2 puff inhalation DAILY Qty: 1 0RF ipratropium-albuterol 0.5 mg-3 mg(2.5 mg base)/3 mL solution for nebulization 3 ml inhalation Q6-8H PRNQty: 90 0RF omeprazole 20 mg capsule,delayed release(DR/EC) 40 mg PO DAILY Follow Up/Referrals: Geronimo Lamb MD [Primary Care Provider] - Stand Alone [facility]: [facility] Info Instructions
[2023-11-14 13:30] VITALS: O2SAT 94
[2023-11-14 13:37] LABS: Basophils Absolute Auto 0.04 K/uL (0.00-0.30); Basophils Percent Auto 0.5 % (0.0-3.0); Eosinophils Absolute Auto 0.16 K/uL (0.00-0.50); Eosinophils Percent Auto 2.1 % (0.0-7.0); Hematocrit 38.7 % (33.0-51.0); Hemoglobin* 12.7 gm/dL (12.0-16.0); Immature Granulocytes Abs Auto 0.04 K/uL (0.00-0.30); Immature Granulocytes Pct Auto 0.5 %; Lymphocytes Percent Auto 17.6 % (20-44); Mean Corpuscular HGB Conc 33 gm/dL (32-36); Mean Corpuscular Hemoglobin 30 pg (26-34); Mean Corpuscular Volume 92 fL (80-100); Monocytes Percent Auto 5.2 % (0.0-11.0); Neutrophils Percent Auto 74.1 % (42.0-72.0); Platelet Count* 191 K/uL (140-440); RDW Coefficient of Variation % 13.5 % (11.5-15.5); Red Blood Count 4.22 m/uL (4.00-5.20); White Blood Count* 7.52 K/uL (4.50-11.00)
[2023-11-14] MEDS: KETOROLAC 15 MG/ML inj IVP (13:38)
--- OUTSIDE RECORDS SUMMARY | 2023-11-14 13:48 | XMS_ITS | Clinical Summary ---
Author Organization [employer] [facility] Address [place], [place] [address] Care Team Providers Care Cancer Genetic Counselor Name Role Phone Paolo Limon MD Unavailable Talon Durham MD Unavailable [phone] Laura Gardner PsyD, Unavailable [phone] Geronimo Lamb MD Primary Care Provider Allergies [...] Dispensed Refills Start Date End Date Status [facility] Med Center, medication space planner with alarm 1 unit 0 04/22/2014 [...] 1ST CHOICE 17 Each 3 04/25/2023 Active CPAPIndications:OS A (obstructive sleep apnea) CPAP machine for home use at pressure 13cmw, full face mask x1/3month with a full face cushion x1/mo 1 Each 11 07/24/2023 Active levETIRAcetam (KEPPRA) 750 mg tabletIndications: Seizure (HC) TAKE 1 TABLET (750 MG) BY MOUTH TWO TIMES DAILY. 180 Tablet 1 09/25/2023 Active Myrbetriq 50 mg tabletIndications: Urge urinary incontinence TAKE 1 TABLET BY MOUTH EVERY DAY 90 Tablet 10/07/2023 Active omeprazole (PRILOSEC) 20 mg Delayed-Release capsuleIndications :Chronic GERD TAKE 2 CAPSULES (40 MG) BY MOUTH ONCE DAILY BEFORE A MEAL. 180 Capsule 2 10/07/2023 Active montelukast (SINGULAIR) 10 mg tabletIndications: Allergy, sequela TAKE 1 TABLET BY MOUTH EVERYDAY AT BEDTIME 90 Tablet 2 10/07/2023 Active PARoxetine (PAXIL) 40 mg tabletIndications: Anxiety and depression TAKE 1 TABLET BY MOUTH EVERY DAY IN THE MORNING 90 Tablet 10/10/2023 Active levothyroxine (SYNTHROID) 100 mcg tabletIndications: Hypothyroidism (acquired) Take 1 Tablet (100 mcg) by mouth before breakfast. 90 Tablet 3 11/13/2023 Active levothyroxine (SYNTHROID) 100 mcg tabletIndications: Hypothyroidism (acquired) Take 1 Tablet (100 mcg) by mouth before breakfast. 60 Tablet 5 08/05/2023 Discontinu ed(Reorder (E-cancel not sent)) Active Problems Problem Noted Date Diagnosed Date Urinary incontinence 11/13/2023 Hypothyroidism (acquired) 09/01/2023 Heart failure with preserved [...] 2006 but better (taking meds 5/7 days) 11/09: TSH >100, FreeT4 0.4, Reverse T3 9 (11-32 ng/dl) GERD (Gastroesophageal Reflux Disease) 9 Anxiety and depression Dizziness Overview: Eval by [facility] neurology 2018. Thought to be functional. [...] Encounters Date Type Department Care Team Description 11/13/2023 10:35 AM CDT Office Visit [facility] [address] [place] [address] Geronimo Lamb MD Results (Discuss lab results); ER Follow up ([place] [facility], 11/11/2023, abdominal pain) 11/13/2023 Travel 11/11/2023 Telephone [facility] [address] [place] [address] Dread Villavicencio MD Results 11/05/2023 12:45 PM CDT Orders Only [facility] [address] [place] [address] Lab, [place] Lab 11/05/2023 11:40 AM CDT Office Visit [facility] [address] [place] [address] Dread Villavicencio MD Follow Up (Seizure, having more neurological symptoms, having a hard time finding words, hands and feet going numb but nothing else. When sleeping, not sure if having seizure but she gets paralyzed where she can only move her head to look around but nothing else. ) 11/05/2023 Travel 10/16/2023 Orders Only [facility] Scanner 1 scan: (1-Ord) MARIAN, FACIAL BONES WO, 10/16/2023 10/14/2023 9:30 AM CDT Office Visit [facility] [address] [place] [address] Ángel Campos, AuD Hearing Aid 10/14/2023 Telephone [facility] [address] [place] [address] Ángel Campos, AuD Ear Problem 10/14/2023 Nurse Triage [facility] Nurse Triage Geronimo Lamb MD Mouth/Lip Problem 10/14/2023 Travel 10/09/2023 Refill [facility] [address] [place] [address] Geronimo Lamb MD Refill Request (Paroxetine) 10/06/2023 Refill [facility] [address] [place] [address] Geronimo Lamb MD Refill Request (Myrbetriq, Omeprazole, Montelukast) 09/25/2023 Refill [facility] [place] [facility] [address] [place] [address] Dread Villavicencio MD Refill Request (Levetiracetam) 09/01/2023 2:55 PM CDT Office Visit [facility] [address] [place] [address] Geronimo Lamb MD Form (For assisted living) 09/01/2023 Travel from Last 3 Months Immunizations Name Administration Dates Next Due COVID-19 Vaccine Spikevax (M oderna 50mcg/0.5mL) 12YO+ 0949-3054 Formula PF 03/19/2023 COVID-19 vaccine (Pfizer-Bio NTech [...] Sign Reading Time Taken Comments Blood Pressure 125/75 11/13/2023 11:08 AM CDT Pulse 98 11/13/2023 10:40 AM CDT Temperature 36.7 ??C (98.1 ??F) 05/15/2023 1:42 PM CS T Respiratory Rate 90 06/10/2023 2:35 PM SMALL PRODUCTS ASSEMBLER Oxygen Saturation 92% 11/13/2023 10:40 AM CDT Inhaled Oxygen Concentration - - Weight 106.6 kg (235 lb) 11/13/2023 10:40 AM CDT Height 142.2 cm (4' 8) 07/24/2023 2:36 PM SMALL PRODUCTS ASSEMBLER Body Mass Index 52.69 07/24/2023 2:36 PM SMALL PRODUCTS ASSEMBLER Plan of Treatment Upcoming Encounters Date Type Department Care Team (Late st Contact Info) Description 02/05/2024 2:30 PM CDT Office Visit [facility] [address] [place] [address] Paolo Limon MD [address] [place] [address] 03/15/2024 9:00 AM CDT Orders Only [facility] [address] [place] [address] Lab, [place] 03/19/2024 1:15 PM CDT Office Visit [facility] [address] [place] [address] Geronimo Lamb MD [address] [place] [address] Health Maintenance Due Date Last Done Comments [...] 12:29 PM CDT Hypothyroidism (acquired) SCAN-CT INTERPRETATION 12:00 AM CDT LIPID PANEL W REFLEX MEASURED LDL Routine 03/19/2023 12:35 PM CDT Hyperlipidemia, unspecified hyperlipidemia type ANTI HIV 1/2 Routine 05/01/2022 4:36 PM SMALL PRODUCTS ASSEMBLER Encounter for screening for HIV ANTI HCV Routine 12/05/2021 9:30 AM CDT Need for hepatitis C screening test SCAN-MAMMOGRAPHY REPORT 02/24/2019 12:00 AM CDT from Last 3 Months or Most Recently Relevant to Health Maintenance Results * TSH WITH REFLEX (11/05/2023 12:29 PM CDT) TSH 1.86 0.27 - 4.20 uIU/mL 11/05/2023 11:39 PM CDT [facility] Blood BLOOD SPECIMEN / Unknown Venipuncture / Unknown 11/05/2023 12:29 PM CDT 11/05/2023 12:30 PM CDT Narrative [facility] - 11/05/2023 11:39 PM CDT In Adults, TSH values between 5.00 and 10.00 uIU/ml do not necessarily indicate the presence of Hypothyroidism. Correlation with clinical findings such as presence of goiter and/or Thyroperoxidase (TPO) Antibody may be helpful. For more information please refer to SIVAN 2004; 291: 228-238. Geronimo Lamb MD CHEMISTRY Performing Organization Address [facility]/ZIP Co de Phone Number [facility] [address] [address], * LEVETIRACETAM (KEPPRA) (11/05/2023 12:29 PM CDT) LEVETIRACETAM (KEPPRA) 19.1 6.0 - 46.0 ug/mL 11/05/2023 11:58 PM CDT [facility] Blood BLOOD SPECIMEN / Unknown Venipuncture / Unknown 11/05/2023 12:29 PM CDT 11/05/2023 12:30 PM CDT Narrative [facility] - 11/05/2023 11:58 PM CDT Reference Range is based on Trough Steady State in patients receiving recommended daily dose. ??The relationship between serum concentrations and toxicity is not known. Bivaracetam (Briviact??) interferes with measurements of levetiracetam (Keppra??) in the ARK Levetiracetam Assay Dread Villavicencio MD SEND OUTS Performing Organization Address [facility] Co de Phone Number [facility] [address] [place] [address], * SCAN-CT INTERPRETATION (10/16/2023 12:00 AM CDT) Anatomical Region Laterality Modality Other Scanner OTHER * (ABNORMAL) LIPID PANEL W REFLEX MEASURED LDL (03/19/2023 12:35 PM CDT) CHOLESTEROL,TOTAL 258(H) 100 - 199 mg/dL 03/20/2023 8:11 AM CDT [facility] Comment: Cholesterol, Total Reference Ranges Desirable <200 mg/dL Borderline 200-239 mg/dL High >=240 mg/dL TRIGLYCERIDES 159(H) <150 mg/dL 03/20/2023 8:11 AM CDT [facility] HDL CHOLESTEROL 55 >40 mg/dL 8:11 AM CDT [facility] NON-HDL CHOLESTEROL 203(H) <145 mg/dl 03/20/2023 8:11 AM CDT [facility] CHOL/HDL RATIO 4.69(H) <4.50 03/20/2023 8:11 AM CDT [facility] LDL CHOLESTEROL 171(H) <=130 mg/dL 03/20/2023 8:11 AM CDT [facility] VLDL CHOLESTEROL 32(H) <=30 mg/dL 03/20/2023 8:11 AM CDT [facility] PROVIDER ORDERED STATUS RANDOM 03/20/2023 8:11 AM T [facility] Blood BLOOD SPECIMEN / Unknown Butterfly / Unknown 03/19/2023 12:35 PM CDT 03/19/2023 12:38 PM CDT Geronimo Lamb MD CHEMISTRY [facility] [address] [place] [address], [place] * ANTI HIV 1/2 (05/01/2022 4:36 PM SMALL PRODUCTS ASSEMBLER) HIV-1/HIV-2 ANTIBODY Non-Reacti ve Non-Reacti ve 05/04/2022 9:59 PM SMALL PRODUCTS ASSEMBLER [facility] Comment:HIV-1 p24 and HIV-1/ HIV-2 Ab not detected. Blood BLOOD SPECIMEN / Unknown Butterfly / Unknown 05/01/2022 4:36 PM SMALL PRODUCTS ASSEMBLER 05/01/2022 4:41 PM SMALL PRODUCTS ASSEMBLER Geronimo Lamb MD SEND OUTS [facility] [address] [place] [address], [place] * ANTI HCV (12/05/2021 9:30 AM CDT) HEPATITIS C ANTIBODY Non-React shikha Non-React shikha 12/05/2021 9:16 PM CDT [facility] Comment:Antibodies to HCV no t detected; does not exclude the possibility of exposure to HCV. Blood BLOOD SPECIMEN / Unknown Venipuncture / Unknown 12/05/2021 9:30 AM CDT 12/05/2021 9:33 AM CDT Geronimo Lamb MD SEND OUTS [facility] [address] [place] [address], * SCAN-MAMMOGRAPHY REPORT (02/24/2019 12:00 AM CDT) Anatomical Region Laterality Modality Other Scanner OTHER from Last 3 Months or Most Recently Relevant to Health Maintenance Care Teams Cancer Genetic Counselor Relationship Specialty Start Date End Date Geronimo Lamb MD [address] [place], [place] [id number] PCP - General Family Practice 04/23/21 Paolo Limon MD Sleep Medicine 10/28/11 Talon Durham MD Neurology Neurology 11/26/11 Laura Gardner PsyD, Psychology 09/14/13
--- OUTSIDE RECORDS SUMMARY | 2023-11-14 13:48 | XMS_ITS | Referral Summary ---
Author Organization [facility] Address [address] [place] [address] Care Team Providers Care Tile Finisher Name Role Phone Elsewhere, Pcp Primary Care Provider Unavailabl e Source Comments Patient records contain information from all sites at [facility]. For routine questions regarding patient records, call [phone] during business hours, M-F 8:00 AM - 5:00 PM Central Time. Record requests for emergency care only can be directed to [phone] at any time.[facility] Allergies Active Allergy Reactions Criticality Noted Date [...] Attention Deficit Hyperactive (ADHD) Disorder\.br\per external records ZZ Body Mass Index 45.0 To 49.9 Adult [...] Sex Assigned at Female 06/02/2018 2:11 PM COMMISSARY HELPER Gender Identity Female 06/02/2018 2:11 PM COMMISSARY HELPER Sexual Orientation Choose not to disclose 2018 2:11 PM COMMISSARY HELPER Last Filed Vital Signs Vital Sign Reading [...] on file Medical Devices Implanted Type Area Tobacco Educator Device Identifier Shelf Expiration Date Model / Serial / Lot Ear Implant- [id number] Implanted:11/24 (Quantity not on file) Ear Implant Ear Olympus Bernice Vega TORP Plasti-pore [id number] / / [id number] Description:[facility] [place], [place]. Ear implant-Vega TOPR Plasti-pore MRI Safe Procedures Procedure Name Priority Date/Time Associated Diagnosis Comments EXTI THYROID-STIMULATING HORMONE-SENSITIVE (S-TSH), S Routine 06/10/2023 3:22 PM COMMISSARY HELPER EXTI LIPID PANEL W REFLEX MEASURED LDL Routine 03/19/2023 12:35 PM CDT EXTI BASIC METABOLIC PANEL, S/P Routine 03/19/2023 12:35 PM CDT from Last 3 Months or Most Recently Relevant to Health Maintenance Care Teams Tile Finisher Relationship Specialty Start Date End Date Elsewhere, Pcp PCP - General Internal Medicine 12/04/18
--- OUTSIDE RECORDS SUMMARY | 2023-11-14 13:48 | XMS_ITS | Clinical Summary ---
Author Organization [facility] Address [address] [place] [address] Care Team Providers Care Manager Regulatory Name Role Phone Elsewhere, Pcp Primary Care Provider Unavailabl e Source Comments Patient records contain information from all sites at [facility]. For routine questions regarding patient records, call [phone] during business hours, M-F 8:00 AM - 5:00 PM Central Time. Record requests for emergency care only can be directed to [phone] at any time.[facility] Allergies Active Allergy Reactions Criticality Noted Date [...] Sex Assigned at Female 06/02/2018 2:11 PM INTERDISCIPLINARY PROFESSOR Gender Identity Female 06/02/2018 2:11 PM INTERDISCIPLINARY PROFESSOR Sexual Orientation Choose not to disclose 2018 2:11 PM INTERDISCIPLINARY PROFESSOR Last Filed Vital Signs Vital Sign [...] history exists Medical Devices Implanted Type Area Steerer Device Identifier Shelf Expiration Date Model / Serial / Lot Ear Implant- [id number] Implanted:11/24 (Quantity not on file) Ear Implant Ear Olympus Bernice Vega TORP Plasti-pore [id number] / / [id number] Description:[place], [place]. Ear implant-Vega TOPR Plasti-pore MRI Safe Procedures Procedure Name Priority Date/Time Associated Diagnosis Comments EXTI THYROID-STIMULATING HORMONE-SENSITIVE (S-TSH), S Routine 06/10/2023 3:22 PM INTERDISCIPLINARY PROFESSOR EXTI LIPID PANEL W REFLEX MEASURED LDL Routine 03/19/2023 12:35 PM CDT EXTI BASIC METABOLIC PANEL, S/P Routine 03/19/2023 12:35 PM CDT from Last 3 Months or Most Recently Relevant to Health Maintenance Care Teams Manager Regulatory Relationship Specialty Start Date End Date Elsewhere, Pcp PCP - General Internal Medicine 12/04/18
--- OUTSIDE RECORDS SUMMARY | 2023-11-14 13:48 | XMS_ITS ---
Author Organization [facility] Address [address] [place] [address] Care Team Providers Care Mortgage Consultant Name Role Phone Unavailable Unavailable Unavailable Surgery Details Not on file Complications Check Surgery Details section. Procedure Estimated Blood Loss Check Surgery Details section. Procedure Findings Check Surgery Details section. Procedure Specimens Taken Check Surgery Details section.
[2023-11-14 13:57] LABS: Albumin* 4.1 g/dL (3.3-5.0); Chloride* 100 mmol/L (96-114)
[2023-11-14 13:58] LABS: Potassium* 3.7 mmol/L (3.6-5.1); Sodium* 139 mmol/L (135-149)
[2023-11-14 14:00] LABS: Alkaline Phosphatase* 90 U/L (40-150); Anion Gap 5 mEq/L (7-15); Aspartate Amino Transferase* 29 U/L (12-35); Bilirubin Total* 0.6 mg/dL (0.1-1.5); Blood Urea Nitrogen* 11 mg/dL (5-24); Carbon Dioxide* 34 mmol/L (20-32); Creatinine* 0.6 mg/dL (0.5-1.5); Estimated Glomerular Filt Rate 112 ml/min; Total Protein* 6.8 g/dL (6.0-8.3)
[2023-11-14 14:01] LABS: Alanine Aminotransferase* 32 U/L (4-35); Calcium* 9.2 mg/dL (8.4-10.6); Glucose* 105 mg/dL (60-115); Lipase* 35 U/L (23-300)
[2023-11-14 14:14] LABS: Slide Review Reflex No
[2023-11-14 15:25] VITALS: BP 124/83; PULSE 64; RESP 18; O2SAT 94
== END 2023-11-14 15:33 | disposition home or self-care (01) ==
PROVIDERS: Emergency Provider Student in an Organized Health Care Education/Training Program; PCP Family Medicine
DX: R10.84 Generalized abdominal pain (principal)
CPT/HCPCS: 36415; 74177; 80053; 81001; 81025; 83690; 85025; 96374; 99283; 99284; J1885; Q9967

== ENCOUNTER 2023-12-12 19:28 | Outpatient (CLI) | payer MEDICAID, SELFPAY ==
--- OUTSIDE RECORDS SUMMARY | 2023-12-14 01:36 | XMS_ITS | Clinical Summary ---
Author Organization [facility] Address [address] [place] [address] Care Team Providers Care Appliance Technician Name Role Phone Elsewhere, Pcp Primary Care Provider Unavailabl e Source Comments Patient records contain information from all sites at [facility]. For routine questions regarding patient records, call [phone] during business hours, M-F 8:00 AM - 5:00 PM Central Time. Record requests for emergency care only can be directed to [phone] at any time.[facility] Allergies Active Allergy Reactions [...] 06/30/19 19 Attention Deficit Hyperactive Disorder 7 Overview (03/29/2017): Attention Deficit Hyperactive (ADHD) Disorder\.br\per external records Body Mass Index 45.0 To 49.9 Adult 11/08/2016 Overview (09/17/2017): Body mass index (BMI) 40.0-44.9, adult Rule activated problem due to BMI 40-44 posted on 11/08 at 12:33 CDT. Rule activated problem due to BMI 45-49 posted on 02/24 at 15:32 CDT. 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 Tissue transglutaminase ab neg. Noninfective Gastroenteritis And Colitis Unspeci fied 04/25/2009 Apnea Sleep Obstructive 04/10/2009 Major Depressive Disorder, Recurrent, Unspecifie d 02/23/2009 Gastroesophageal Reflux Disease NOS 02/23/2009 Resolved Problems Problem Noted Date Diagnosed Date Resolved Date Asthma Mild Persistent 03/07/201709/17 Overview (03/29/2017): Asthma Mild Persistent Depression Anxiety 03/18/2016 9 Overview (10/15/2016): Depression Anxiety Asthma Chronic 05/07/2015 11/17/2018 Overview (10/15/2016): Unspecified asthma, uncomplicated Anxiety 09/02/2012 11/17/2018 Dysthymic disorder 06/30/2009 9 Hypothyroidism 02/23/2009 11/11/2017 Overview (09/17/2017): Overview: Diagnosed in 1998. TSH has been [...] Sex Assigned at Female 06/02/2018 2:11 PM MAP CLERK Gender Identity Female 06/02/2018 2:11 PM MAP CLERK Sexual Orientation Choose not to disclose 2018 2:11 PM MAP CLERK Last Filed Vital Signs Vital Sign Reading [...] Tdap) 10/29/2020 10/29/2010 Influenza Vaccine (#1) 2024 3, 05/01/2022, 03/09/2018, Additional history exists Creatinine Level [...] history exists Medical Devices Implanted Type Area Cogeneration Operator Device Identifier Shelf Expiration Date Model / Serial / Lot Ear Implant- [id number] Implanted:11/24 (Quantity not on file) Ear Implant Ear Olympus Bernice Vega TORP Plasti-pore [id number] / / [id number] Description:[place], [place]. Ear implant-Vega TOPR Plasti-pore MRI Safe Procedures Procedure Name Priority Date/Time Associated Diagnosis Comments THYROID-STIMULATING HORMONE-SENSITIVE (S-TSH) Routine 10/27/2018 3:42 PM CDT Hypothyroidism Primary BASIC METABOLIC PANEL, S/P Routine 03/11/2018 1:58 PM CDT Dizziness Diplopia LIPID PANEL, S Routine 06/10/2016 10:40 AM MAP CLERK from Last 3 Months or Most Recently Relevant to Health Maintenance Results * (ABNORMAL) S-TSH (Thyroid-Stimulating Hormone - Sensitive) (10/27/2018 3:42 PM CDT) TSH, Sensitive 10.7(H) 0.3 - 4.2 mIU/L 10/27/2018 5:20 PM CDT Comment: Biotin has been identified by the heat sealing machine operator as a potential interfering substance. ??Higher concentrations of biotin may be found in multivitamins, hair/nail supplements, and workout supplements. ??If the result does not match clinical observations, repeat testing after patient refrains from the use of supplements for at least 12 hours. Blood (Blood, Venous) 10/27/2018 3:42 PM CDT 10/27/2018 3:43 PM CDT Deanne Tsang P.A.-C. LAB BLOOD ADD-O N Performing Organization Address City/State/[facility] Co de Phone Number [facility] [address] * Basic Metabolic Panel (03/11/2018 1:58 PM CDT) Pathologist [facility] Potassium, S 4.0 3.6 - 5.2 mmol/L 03/11/2018 2:29 PM CDT [facility] Sodium, S 141 135 - 145 mmol/L 03/11/2018 2:29 PM CDT [facility] Chloride, S 101 98 - 107 mmol/L 03/11/2018 2:29 PM CDT [facility] Bicarbonate, S 27 22 - 29 mmol/L 03/11/2018 2:29 PM CDT [facility] Anion Gap 13 7 - 15 03/11/2018 2:29 PM CDT [facility] BUN (Blood Urea Nitrogen), S 12 6 - 21 mg/dL 03/11/2018 2:29 PM CDT [facility] Creatinine 0.62 0.59 - 1.04 mg/dL 03/11/2018 2:29 PM CDT [facility] eGFR-Non Black/ >90 >=60 mL/min/BSA 03/11/2018 2:29 PM CDT [facility] Comment: ----ADDITIONAL INFORMATION---- Estimated GFR calculated using the 2009 CKD_EPI creatinine equation. eGFR-Black/Afri can Georgian >90 >=60 mL/min/BSA 03/11/2018 2:29 PM CDT [facility] Comment: ----ADDITIONAL INFORMATION---- Estimated GFR calculated using the 2009 CKD_EPI creatinine equation. Calcium, Total, S 9.4 8.6 - 10.0 mg/dL 03/11/2018 2:29 PM CDT [facility] Glucose, S 95 70 - 140 mg/dL 03/11/2018 2:29 PM CDT [facility] Blood (Blood, Venous) 03/11/2018 1:58 PM CDT 03/11/2018 1:58 PM CDT Deanne Tsang P.A.-C. LAB BLOOD ADD-O N Performing Organization Address City/State/[facility] Co de Phone Number [facility] [address] * (ABNORMAL) Lipid Panel (06/10/2016 10:40 AM MAP CLERK) Cholesterol, Total 275(H) <=199 MGDL POWERCHART Comment: 2014 National Lipid Association recommendations for Total Cholesterol in adults ages 18 and up: Desirable <200 mg/dL Borderline high 200-239 mg/dL High 240 mg/dL 2014 National Lipid Association recommendations for Total Cholesterol in children ages 2 to 17. Acceptable <170 mg/dL Borderline High 170-199 mg/dL High 200 mg/dL HX HDL 58 >=50 MGDL POWERCHART Comment: 2014 National Lipid Association recommendations for HDL-C in adults ages 18 and up: Low <40 mg/dL (Men) Low <50 mg/dL (Women) 2014 National Lipid Association recommendations for HDL-C in children ages 2 to 17. Low <40 mg/dL Borderline Low 40-45 mg/dL Acceptable >45 mg/dL Triglycerides 150(H) <=149 MGDL POWERCHART Comment: 2014 National Lipid Association recommendations for Triglycerides in adults ages 18 and up: Normal <150 mg/dL Borderline High 150-199 mg/dL High 200-499 mg/dL Very High 500 mg/dL 2014 National Lipid Association recommendations for Triglycerides in children ages 2 to 9. Acceptable <75 mg/dL Borderline High 75-99 mg/dL High 100 mg/dL 2014 National Lipid Association recommendations for Triglycerides in children ages 10 to 17. Acceptable <90 mg/dL Borderline High 90-129 mg/dL High 130 mg/dL Trigs >400mg/dL: Triglycerides >400 mg/dL. Calculated LDL cholesterol is not valid. Non-HDL cholesterol may be used for risk assessment when triglycerides are >400mg/dL. Calculated LDL 187(H) <=129 MGDL POWERCHART Comment: 2014 National Lipid Association recommendations for LDL-C in adults ages 18 and up: Desirable <100 mg/dL Above desirable 100-129 mg/dL Borderline high 130-159 mg/dL High 160-189 mg/dL Very High 190 mg/dL 2014 National Lipid Association recommendations for LDL-C in children ages 2 to 17. Acceptable <110 mg/dL Borderline High 110-129mg/dL High 130 mg/dL LDL-C >190mg/dL: The markedly elevated LDL level is suggestive of a genetic condition such as familial hypercholesterolemia(FH) or familial defective apolipoprotein B-100 (FDB). Molecular genetic testing for FH and FDB is available through [facility] [employer]: FH/ADH Genetic Reflex Panel (test ADHP). Acquired (non-genetic) causes of markedly increased LDL cholesterol include cholestatic liver disease due to the presence of LpX. If a genetic form of hypercholesterolemia is suspected, family studies including biochemical testing for lipids (total cholesterol,triglycerides, LDL cholesterol and HDL cholesterol) are recommended. ??Please contact the laboratory at or the on-line test catalog at [employer] for information about how to order these tests or to speak with a genetic counselor. Further interpretation would require clinical information. Total Cholesterol/HDL Ratio 5 POWERCHART Blood 06/10/2016 10:4 0 AM MAP CLERK Ana Chery M.D. LAB BLOOD ADD-O N POWERCHART from Last 3 Months or Most Recently Relevant to Health Maintenance Care Teams Appliance Technician Relationship Specialty Start Date End Date Elsewhere, Pcp PCP - General Internal Medicine 12/04/18
--- OUTSIDE RECORDS SUMMARY | 2023-12-14 01:36 | XMS_ITS ---
Author Organization [facility] Address [address] [place] [address] Care Team Providers Care Physical Ther Name Role Phone Unavailable Unavailable Unavailable Surgery Details Not on file Complications Check Surgery Details section. Procedure Estimated Blood Loss Check Surgery Details section. Procedure Findings Check Surgery Details section. Procedure Specimens Taken Check Surgery Details section.
--- OUTSIDE RECORDS SUMMARY | 2023-12-14 01:36 | XMS_ITS | Clinical Summary ---
Author Organization [facility] Address [place], [place] [address] Care Team Providers Care Winder Fixer Name Role Phone Paolo Limon MD Unavailable Talon Durham MD Unavailable [phone] Laura Gardner PsyD, Unavailable [phone] Geronimo Lamb MD Primary Care Provider Allergies [...] Dispensed Refills Start Date End Date Status [facility], medication inventory control planner with alarm 1 unit 0 04/22/2014 [...] 11 07/24/2023 Active levETIRAcetam (KEPPRA) 750 mg tabletIndications:S eizure [...] Tablet 10/10/2023 Active levothyroxine (SYNTHROID) 100 mcg tabletIndications:H ypothyroidism (acquired) Take 1 Tablet (100 mcg) by mouth before breakfast. 90 Tablet 3 11/13/2023 Active Active Problems Problem Noted Date Diagnosed [...] Anxiety and depression Dizziness Overview: Eval by [facility] neurology 2018. Thought to be functional. Referred [...] Hospital Encounter [facility] EMG/EEG/EP [address] [address] Dread Villavicencio MD [place], Scott P Seizure (HC) 11/26/2023 Travel 11/14/[address] [facility] Scanner 1 scan: (1-Ord) [facility], CT ABDOMEN PELVIS W CON , 11/14/2023 11/13/2023 10:35 AM CDT Office Visit [facility] [address] [place] [address] Geronimo Lamb MD Results (Discuss lab results); ER Follow up ([facility], 11/11/2023, abdominal pain) 11/13/2023 Travel 11/11/2023 Telephone [facility] [address] [place] [address] Dread Villavicencio MD Results 11/05/2023 12:45 PM CDT Orders Only [facility] [address] [place] [address] Lab, [place] Lab 11/05/2023 11:40 AM CDT Office Visit [facility] [address] [place] [address] Dread Villavicencio MD Follow Up (Seizure, having more neurological symptoms, having a hard time finding words, hands and feet going numb but nothing else. When sleeping, not sure if having seizure but she gets paralyzed where she can only move her head to look around but nothing else. ) 11/05/2023 Travel 10/16/[address] [facility] Scanner 1 scan: (1-Ord) MARIAN, FACIAL BONES WO, 10/16/2023 10/14/2023 9:30 AM CDT Office Visit [facility] [address] [place] [address] Ángel Campos, Eyad Hearing Aid 10/14/2023 Telephone [facility] [address] [place] [address] Ángel Campos, Eyad Ear Problem 10/14/2023 Nurse Triage [facility] Centralized Nurse Triage Geronimo Lamb MD Mouth/Lip Problem 10/14/2023 Travel 10/09/2023 Refill [facility] [address] [place] [address] Geronimo Lamb MD Refill Request (Paroxetine) 10/06/2023 Refill [facility] [address] [place] [address] Geronimo Lamb MD Refill Request (Myrbetriq, Omeprazole, Montelukast) 09/25/2023 Refill [facility] [address] [place] [address] Dread Villavicencio MD Refill Request (Levetiracetam) from Last 3 Months Immunizations Name Administration Dates Next Due COVID-19 Vaccine Spikevax (M oderna 50mcg/0.5mL) 12YO+ [id number] Formula PF 03/19/2023 COVID-19 vaccine (Pfizer-Bio NTech [...] T Respiratory Rate 90 06/10/2023 2:35 PM ACTUARIAL CLERK Oxygen Saturation 92% 11/13/2023 10:40 AM CDT Inhaled Oxygen Concentration - - Weight 106.6 kg (235 lb) 11/13/2023 10:40 AM CDT Height 142.2 cm (4' 8) 07/24/2023 2:36 PM ACTUARIAL CLERK Body Mass Index 52.69 07/24/2023 2:36 PM ACTUARIAL CLERK Plan of Treatment Upcoming Encounters Date Type Department Care Team (Late st Contact Info) Description 02/05/2024 2:30 PM CDT Office Visit [facility] [address] [place] [address] Paolo Limon MD [address] [place] [address] 03/15/2024 9:00 AM CDT Orders Only [facility] [address] [place] [address] Lab, [place] 03/19/2024 1:15 PM CDT Office Visit [facility] [address] [place] [address] Geronimo Lamb MD [address] [place] [address] Health Maintenance Due Date Last Done Comments [...] 9:30 AM CDT Seizure (HC) SCAN-CT INTERPRETATION 4 12:00 AM CDT LEVETIRACETAM (KEPPRA) Routine 4 12:29 PM CDT Seizure (HC) TSH WITH REFLEX Routine 11/05/2023 12:29 PM CDT Hypothyroidism (acquired) SCAN-CT INTERPRETATION 4 12:00 AM CDT LIPID PANEL W REFLEX MEASURED LDL Routine 03/19/2023 12:35 PM CDT Hyperlipidemia, unspecified hyperlipidemia type ANTI HIV 1/2 Routine 05/01/2022 4:36 PM ACTUARIAL CLERK Encounter for screening for HIV ANTI HCV [...] help, Dr Adi Heath does this at [place]. Emerson Mcmahon MD, FAAN, PATRICIA Epileptologist, President - [facility] [place]. Dread Villavicencio MD NEUROLOGY ORD * SCAN-CT INTERPRETATION (11/14/2023 12:00 AM CDT) Only the most recent of2 resultswithin the time period is included. Anatomical Region Laterality Modality Other Scanner OTHER * TSH WITH REFLEX (11/05/2023 12:29 PM CDT) TSH 1.86 0.27 - 4.20 uIU/mL 11/05/2023 11:39 PM CDT [facility] Blood BLOOD SPECIMEN / Unknown Venipuncture / Unknown 11/05/2023 12:29 PM CDT 11/05/2023 12:30 PM CDT Narrative [facility] - 11/05/2023 11:39 PM CDT In Adults, TSH values between 5.00 and 10.00 uIU/ml do not necessarily indicate the presence of Hypothyroidism. Correlation with clinical findings such as presence of goiter and/or Thyroperoxidase (TPO) Antibody may be helpful. For more information please refer to SIVAN 2004; 291: 228-238. Geronimo Lamb MD CHEMISTRY [facility] [address] [place] [address], * LEVETIRACETAM (KEPPRA) (11/05/2023 12:29 PM CDT) LEVETIRACETAM (KEPPRA) 19.1 6.0 - 46.0 ug/mL 11/05/2023 11:58 PM CDT [facility] Blood BLOOD SPECIMEN / Unknown Venipuncture / Unknown 11/05/2023 12:29 PM CDT 11/05/2023 12:30 PM CDT [facility] - 11/05/2023 11:58 PM CDT Reference Range is based on Trough Steady State in patients receiving recommended daily dose. ??The relationship between serum concentrations and toxicity is not known. Bivaracetam (Briviact??) interferes with measurements of levetiracetam (Keppra??) in the DEK Levetiracetam Assay Dread Villavicencio MD SEND OUTS [facility] [address] [place] [address], * (ABNORMAL) LIPID PANEL W REFLEX MEASURED LDL (03/19/2023 12:35 PM CDT) CHOLESTEROL,TOTAL 258(H) 100 - 199 mg/dL 03/20/2023 8:11 AM CDT [facility] Comment: Cholesterol, Total Reference Ranges Desirable <200 mg/dL Borderline 200-239 mg/dL High >=240 mg/dL TRIGLYCERIDES 159(H) <150 mg/dL 03/20/2023 8:11 AM CDT [facility] HDL CHOLESTEROL 55 >40 mg/dL 8:11 AM CDT [facility] NON-HDL CHOLESTEROL 203(H) <145 mg/dl 03/20/2023 8:11 AM CDT [facility] CHOL/HDL RATIO 4.69(H) <4.50 03/20/2023 8:11 AM CDT [facility] LDL CHOLESTEROL 171(H) <=130 mg/dL 03/20/2023 8:11 AM CDT [facility] VLDL CHOLESTEROL 32(H) <=30 mg/dL 03/20/2023 8:11 AM CDT [facility] PROVIDER ORDERED STATUS RANDOM 03/20/2023 8:11 AM CDT [facility] Blood BLOOD SPECIMEN / Unknown Butterfly / Unknown 03/19/2023 12:35 PM CDT 03/19/2023 12:38 PM CDT Geronimo Lamb MD CHEMISTRY [facility] [address] [place] [address], * ANTI HIV 1/2 (05/01/2022 4:36 PM ACTUARIAL CLERK) HIV-1/HIV-2 ANTIBODY Non-Reacti ve Non-Reacti ve 05/04/2022 9:59 PM ACTUARIAL CLERK [facility] Comment:HIV-1 p24 and HIV-1/ HIV-2 Ab not detected. Blood BLOOD SPECIMEN / Unknown Butterfly / Unknown 05/01/2022 4:36 PM ACTUARIAL CLERK 05/01/2022 4:41 PM ACTUARIAL CLERK Geronimo Lamb MD SEND OUTS Performing Organization Address [facility]/ZIP Co de Phone Number [facility] [address] [place] [address], * ANTI HCV (12/05/2021 9:30 AM CDT) HEPATITIS C ANTIBODY Non-React shikha Non-React shikha 12/05/2021 9:16 PM CDT [facility] Comment:Antibodies to HCV no t detected; does not exclude the possibility of exposure to HCV. Blood BLOOD SPECIMEN / Unknown Venipuncture / Unknown 12/05/2021 9:30 AM CDT 12/05/2021 9:33 AM CDT Geronimo Lamb MD SEND OUTS [facility] [address] [place] [address], * SCAN-MAMMOGRAPHY REPORT (02/24/2019 12:00 AM CDT) Anatomical Region Laterality Modality Other Scanner OTHER from Last 3 Months or Most Recently Relevant to Health Maintenance Care Teams Winder Fixer Relationship Specialty Start Date End Date Geronimo Lamb MD [address] [place] [address] PCP - General Family Practice 04/23/21 Paolo Limon MD Sleep Medicine 10/28/11 Talon Durham MD Neurology Neurology 11/26/11 Laura Gardner PsyD, [facility] Psychology 09/14/13
--- OUTSIDE RECORDS SUMMARY | 2023-12-14 01:36 | XMS_ITS | Referral Summary ---
Author Organization [facility] Address [address] [place] [address] Care Team Providers Care Special Machine Stitcher Name Role Phone Elsewhere, Pcp Primary Care Provider Unavailabl e Source Comments Patient records contain information from all sites at [facility]. For routine questions regarding patient records, call [phone] during business hours, M-F 8:00 AM - 5:00 PM Central Time. Record requests for emergency care only can be directed to [phone] at any time.[facility] Allergies Active Allergy Reactions Criticality Noted [...] Sex Assigned at Female 06/02/2018 2:11 PM DAG COATER Gender Identity Female 06/02/2018 2:11 PM DAG COATER Sexual Orientation Choose not to disclose 2018 2:11 PM DAG COATER Last Filed Vital Signs Vital Sign Reading [...] on file Medical Devices Implanted Type Area Cnc Specialist Device Identifier Shelf Expiration Date Model / Serial / Lot Ear Implant- 011 Implanted:11/24 (Quantity not on file) Ear Implant Ear Olympus Bernice Vega TORP Plasti-pore [id number] / / [id number] Description:[facility], [place], [place]. Ear implant-Vega TOPR Plasti-pore MRI Safe Procedures Procedure Name Priority Date/Time Associated Diagnosis Comments THYROID-STIMULATING HORMONE-SENSITIVE (S-TSH) Routine 10/27/2018 3:42 PM CDT Hypothyroidism Primary BASIC METABOLIC PANEL, S/P Routine 03/11/2018 1:58 PM CDT Dizziness Diplopia LIPID PANEL, S Routine 06/10/2016 10:40 AM DAG COATER from Last 3 Months or Most Recently Relevant to Health Maintenance Results * (ABNORMAL) S-TSH (Thyroid-Stimulating Hormone - Sensitive) (10/27/2018 3:42 PM CDT) TSH, Sensitive 10.7(H) 0.3 - 4.2 mIU/L 10/27/2018 5:20 PM CDT Comment: Biotin has been identified by the concrete grinder operator as a potential interfering substance. ??Higher concentrations of biotin may be found in multivitamins, hair/nail supplements, and workout supplements. ??If the result does not match clinical observations, repeat testing after patient refrains from the use of supplements for at least 12 hours. Blood (Blood, Venous) 10/27/2018 3:42 PM CDT 10/27/2018 3:43 PM CDT Deanne Tsang P.A.-C. LAB BLOOD ADD-O N [facility] [address] * Basic Metabolic Panel (03/11/2018 1:58 PM CDT) [facility] Potassium, S 4.0 3.6 - 5.2 mmol/L 03/11/2018 2:[address] [facility] Sodium, S 141 135 - 145 mmol/L 03/11/2018 2:[address] [facility] Chloride, S 101 98 - 107 mmol/L 03/11/2018 2:[address] [facility] Bicarbonate, S 27 22 - 29 mmol/L 03/11/2018 2:[address] [facility] Anion Gap 13 7 - 15 03/11/2018 2:[address] [facility] BUN (Blood Urea Nitrogen), S 12 6 - 21 mg/dL 03/11/2018 2:[address] [facility] Creatinine 0.62 0.59 - 1.04 mg/dL 03/11/2018 2:[address] [facility] eGFR-Non Black/ >90 >=60 mL/min/BSA 03/11/2018 2:[address] [facility] Comment: ----ADDITIONAL INFORMATION---- Estimated GFR calculated using the 2009 CKD_EPI creatinine equation. eGFR-Black/Afri can Marshallese >90 >=60 mL/min/BSA 03/11/2018 2:[address] [facility] Comment: ----ADDITIONAL INFORMATION---- Estimated GFR calculated using the 2009 CKD_EPI creatinine equation. Calcium, Total, S 9.4 8.6 - 10.0 mg/dL 03/11/2018 2:[address] [facility] Glucose, S 95 70 - 140 mg/dL 03/11/2018 2:[address] [facility] Blood (Blood, Venous) 03/11/2018 1:58 PM CDT 03/11/2018 1:58 PM CDT Deanne Tsang P.A.-C. LAB BLOOD ADD-O N [facility] [address] [place] [address], [facility] * (ABNORMAL) Lipid Panel (06/10/2016 10:40 AM DAG COATER) Cholesterol, Total 275(H) <=199 MGDL POWERCHART Comment: [...] for FH and FDB is available through [employer]: FH/ADH Genetic Reflex Panel (test ADHP). Acquired (non-genetic) causes of markedly increased LDL cholesterol include cholestatic liver disease due to the presence of LpX. If a genetic form of hypercholesterolemia is suspected, family studies including biochemical testing for lipids (total cholesterol,triglycerides, LDL cholesterol and HDL cholesterol) are recommended. ??Please contact the laboratory at or the on-line test catalog at [employer] for information about how to order these tests or to speak with a genetic counselor. Further interpretation would require clinical information. Total Cholesterol/HDL Ratio 5 POWERCHART Blood 06/10/2016 10:4 0 AM DAG COATER Ana Chery M.D. LAB BLOOD ADD-O N POWERCHART from Last 3 Months or Most Recently Relevant to Health Maintenance Care Teams Special Machine Stitcher Relationship Specialty Start Date End Date Elsewhere, Pcp PCP - General Internal Medicine 12/04/18
== END 2023-12-12 19:29 | disposition home or self-care (01) ==
LOC: AMB 12-14 01:34
PROVIDERS: PCP Family Medicine; Visit Provider Family Medicine
DX: R10.9 Unspecified abdominal pain (principal)
CPT/HCPCS: A0425; A0429

== ENCOUNTER 2023-12-12 19:47 | Emergency (ER) | payer MEDICAID, SELFPAY ==
[2023-12-12 19:54] VITALS: BP 143/79; PULSE 95; RESP 18; TEMP 36.7; O2SAT 94; BMI 51.1
--- NOTE | 2023-12-12 20:09 | ED_ITS ---
HPI - Abdominal Pain General Chief Complaint: Abdominal Pain Stated Complaint: Abdominal pain Time Seen by Provider: 12/12/23 20:00 History of Present Illness HPI narrative: This 48-year-old female comes in reporting abdominal pain in the upper epigastric region that began today after taking food. She does not report any other symptoms. She has not had any fevers, nausea, vomiting, diarrhea. She has had similar abdominal pain in the past and did have a CT scan less than a month ago with normal results. She does report a history of gastroesophageal reflux disease per she has not taken any medicine for this. She arrives here with normal vital signs. Related Data Home Medications ?Medication ?Instructions ?Recorded ?Confirmed albuterol sulfate 90 mcg/actuation 2 puff inhalation Q4H PRN 11/30/21 12/01/23 aerosol inhaler mirabegron 50 mg tablet,extended 50 mg PO DAILY 11/30/21 12/01/23 release 24 hr (Myrbetriq) montelukast 10 mg tablet 10 mg PO HS 11/30/21 12/01/23 omeprazole 20 mg capsule,delayed 40 mg PO DAILY 02/26/22 12/01/23 release levetiracetam 750 mg tablet 750 mg PO BID 11/25/22 12/01/23 (Keppra) cholecalciferol (vitamin D3) 50 50 mcg PO DAILY 01/30/23 12/01/23 mcg (2,000 unit) capsule paroxetine HCl 40 mg tablet 40 mg PO DAILY 01/30/23 12/01/23 levothyroxine 100 mcg tablet 100 mcg PO DAILY 10/16/23 10/16/23 potassium chloride 10 mEq 10 meq PO DAILY 10/16/23 12/01/23 tablet,extended release Previous Rx's ?Medication ?Instructions ?Recorded albuterol sulfate 2.5 mg/3 mL 2.5 mg (3 mL) inhalation Q8H PRN 02/02/23 (0.083 %) solution for nebulization #1 mL budesonide-formoterol HFA 160 2 puff inhalation BID #1 g 02/02/23 mcg-4.5 mcg/actuation aerosol inhaler (Symbicort) furosemide 40 mg tablet 40 mg PO DAILY #30 tabs 02/02/23 tiotropium bromide 2.5 2 puff inhalation DAILY #1 g 02/02/23 mcg/actuation mist for inhalation (Spiriva Respimat) Allergies Allergy/AdvReac Type Severity Reaction Status Date / Time azithromycin Allergy Intermediate Bloody Verified 12/01/23 11:48 Stools latex Allergy Intermediate Rash Verified 12/01/23 11:48 oxycodone Allergy Intermediate Agitated Verified 12/01/23 11:48 scopolamine Allergy Intermediate Tremors Verified 12/01/23 11:48 acetaminophen [From Percocet] Allergy Mild Verified 12/01/23 11:48 basil Allergy Rash Verified 12/01/23 11:48 Review of Systems Status of ROS Reports: 10 or more systems reviewed and unremarkable except as noted in History and below Narrative Constitutional: No fevers, no weight gain or loss. Eyes: No discharge. No vision changes. HENT: No congestion, no sore throat, no ear pain. Cardiovascular: No chest pain, no palpitations. Respiratory: No shortness of breath, no wheezes, no cough. Gastrointestinal: No vomiting, no diarrhea. Upper epigastric abdominal pain as described above. Genitourinary: No dysuria, no hematuria. Musculoskeletal: Normal range of motion. Skin: No rashes, no pruritis. Neurological: No dizziness, weakness, sensory change, speech change. Endo/Heme/Allergies: No bruising or bleeding. No polydipsia. Pysch: no suicidality, no anxiety, no insomnia. All other systems reviewed and are negative. 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 - Unspecified convulsions (ICD-10) RODRICK (obstructive sleep apnea) ?G47.33 - Obstructive sleep apnea (adult) (pediatric) (ICD-10) ADHD ?F90.9 - Attention-deficit hyperactivity disorder, unspecified type (ICD-10) Hyperthyroidism ?E05.90 - Thyrotoxicosis, unspecified without thyrotoxic crisis or storm (ICD-10) Hydrocephalus ?G91.9 - Hydrocephalus, unspecified (ICD-10) Hyperlipidemia ?E78.5 - Hyperlipidemia, unspecified (ICD-10) Anxiety and depression ?F41.9 - Anxiety disorder, unspecified (ICD-10) ?F32.A - Depression, unspecified (ICD-10) Asthma ?J45.909 - Unspecified asthma, uncomplicated (ICD-10) Surgical History History of ear surgery ?Z98.890 - Other specified postprocedural states (ICD-10) History of strabismus surgery ?Z98.890 - Other specified postprocedural states (ICD-10) Social History Narrative: on disability since 2009; lives alone with her cat. nonsmoker, no drugs, no significant tobacco history adopted, her two adopted aunts are her family contacts. What is your current living situation?: I presently have a place to live Problems where you live: no known problems Problems where you live details: None In the past 12 months, utilities in danger of being shut off: no In past 12 months, lack of transportation kept you from medical appts, meetings, work, or getting things needed for daily living: no In the past 12 mos, have been you worried that your food would run out before you had money to buy more?: never true In the past 12 mos, the food you bought just didn't last and you didn't have money to buy more?: never true Highest level of school completed/degree received: Associate degree: academic program Smoking Status: Never smoker Do you use any of these nicotine containing products: None Second hand tobacco smoke exposure: No How often do you have a drink containing alcohol: never How often do you have six or more drinks on one occasion: Never AUDIT-C Alcohol total score: 0 Non-prescribed substance use: denies use Caffeine: Yes (Pop ocassionally) How often does anyone, including family, friends and others, physically hurt you : never How often does anyone, including family, friends and others, insult or talk down to you: never How often does anyone, including family, friends and others, threaten you with harm: never How often does anyone, including family, friends and others, scream or curse at you: never service: No Exam Narrative: Exam Narrative: Constitutional: Well-developed, well-nourished, no acute distress. HEENT: Normocephalic, atraumatic. Neck: Normal range of motion. Nontender. Supple. Heart: Regular. No murmurs. Normal rate. Intact distal pulses. Lungs: Clear to auscultation. No chest discomfort. No wheezes, rhonchi, or rales. Abdomen: Normal bowel sounds. Tenderness in the upper epigastric region. No rebound tenderness. Genitalia: Deferred. Back: No midline tenderness. Normal range of motion. Extremities: Normal range of motion. No injury. Skin: Intact. No rash. Warm. No erythema or pallor. Neurologic: No altered sensation. No weakness. Alert and oriented. Psychiatric: No suicidality. No anxiety or depression. No insomnia. Nursing notes and vitals signs are reviewed. Const: Vital Signs, click to edit/add: Vital Signs - 24 hr 12/12/23 19:54 12/12/23 20:34 Temperature 98.0 F Pulse Rate [Right Pulse Oximeter] 95 Respiratory Rate 18 Blood Pressure [Ri ght Upper Arm] 143/79 H Pulse Oximetry 94 94 Oxygen Delivery Me thod Nasal Cannula Nasal Cannula Oxygen Flow Rate 1 1 Course Vital Signs Vital signs: Initial Vital Signs Temperature 98.0 F 12/12/23 19:54 Temperature Source Temporal Artery Scan 12/12/23 19:54 Pulse Rate 95 12/12/23 19:54 Respiratory Rate 18 12/12/23 19:54 Blood Pressure 143/79 H 12/12/23 19:54 Blood Pressure Mean 100 12/12/23 19:54 Blood Pressure Position Sitting 12/12/23 19:54 Pulse Oximetry 94 12/12/23 19:54 Oxygen Delivery Method Nasal Cannula 12/12/23 19:54 Oxygen Flow Rate 1 12/12/23 19:54 Vital Signs Temperature 98.0 F 12/12/23 19:54 Pulse Rate 95 12/12/23 19:54 Respiratory Rate 18 12/12/23 19:54 Blood Pressure 143/79 H 12/12/23 19:54 Pulse Oximetry 94 12/12/23 19:54 Oxygen Delivery Method Nasal Cannula 12/12/23 19:54 Oxygen Flow Rate 1 12/12/23 19:54 Temperature 98.0 F 12/12/23 19:54 Pulse Rate 95 12/12/23 19:54 Respiratory Rate 18 12/12/23 19:54 Blood Pressure 143/79 H 12/12/23 19:54 Pulse Oximetry 94 12/12/23 20:34 Oxygen Delivery Method Nasal Cannula 12/12/23 20:34 Oxygen Flow Rate 1 12/12/23 20:34 Medications Administered Medications: Discontinued Medications Generic Name Dose Route Start Last Admin Trade Name Jordyq PRN Reason Stop Dose Admin Lidocaine/Aluminum/Magnesium/Simeth 30 ml 12/12/23 20:08 12/12/23 20:14 Gi Cocktail (Visc Lido/Antacid) 30 Ml PO 12/12/23 20:09 30 ml ONCE ONE Administration MDM - Abdominal Pain MDM Narrative Medical decision making narrative: This patient reports abdominal pain as described above. She arrives with normal vital signs. Her exam is also reassuring except that there is abdominal pain in the upper epigastric region. The patient did receive a GI cocktail. This brought complete relief of her symptoms several minutes after taking it. The patient states that she does take omeprazole daily. She could increase this dose for a week or so. She has normal vital signs and is not showing any symptoms that are coming from a more serious condition. She is okay to be discharged home. She states that she has plenty of tablets of omeprazole for o ngoing management. Discharge Plan Discharge Clinical Impression: Gastritis Patient Disposition: Home, Self-Care Condition: Improved Additional Instructions: Okay to take extra omeprazole tablet or 2 for the next week or so. Continue other medicines as prescribed. Follow up with MD as needed. Prescriptions: No Action levetiracetam [Keppra] 750 mg tablet 750 mg PO BID potassium chloride 10 mEq tablet extended release 10 meq PO DAILY Rx Instructions: take 2 tablets daily levothyroxine 100 mcg tablet 100 mcg PO DAILY montelukast 10 mg tablet 10 mg PO HS mirabegron [Myrbetriq] 50 mg tablet extended release 24 hr 50 mg PO DAILY Patient Comments: albuterol sulfate 90 mcg/actuation HFA aerosol inhaler 2 puff INHALATION Q4H PRN cholecalciferol (vitamin D3) 50 mcg (2,000 unit) capsule 50 mcg PO DAILY paroxetine HCl 40 mg tablet 40 mg PO DAILY Patient Comments: furosemide 40 mg Tablet 40 mg PO DAILY Qty: 30 0RF albuterol sulfate 2.5 mg /3 mL (0.083 %) solution for nebulization 2.5 mg inhalation Q8H PRNQty: 1 0RF budesonide-formoterol [Symbicort] 160-4.5 mcg/actuation HFA aerosol inhaler 2 puff INHALATION BID Qty: 1 0RF Spiriva Respimat 2.5 mcg/actuation mist 2 puff inhalation DAILY Qty: 1 0RF omeprazole 20 mg capsule,delayed release(DR/EC) 40 mg PO DAILY Follow Up/Referrals: Geronimo Lamb MD [Primary Care Provider] - Stand Alone Forms: [employer] Info Instructions
[2023-12-12] MEDS: GI COCKTAIL (VISC LIDO/ANTACID) 30 ML PO (20:14)
--- OUTSIDE RECORDS SUMMARY | 2023-12-12 20:27 | XMS_ITS | Clinical Summary ---
Author Organization [employer] [facility] Address [place], [place] [address] Care Team Providers Care Kitchenwhere Maker Name Role Phone Paolo Limon MD Unavailable Talon Durham MD Unavailable Laura Gardner PsyD, Unavailable [phone] Geronimo Lamb MD Primary Care Provider Allergies [...] Start Date End Date Status [facility], medication material planner with alarm 1 unit 0 04/22/2014 [...] Anxiety and depression Dizziness Overview: Eval by [facility] neurology 2018. Thought to be functional. Referred [...] Encounters Date Type Department Care Team Description 11/26/2023 9:30 AM CDT - 11/26/2023 11:59 PM CDT Hospital Encounter [facility] EMG/EEG/EP [address] [address] Dread Villavicencio MD [place], Scott P Seizure (HC) 11/26/2023 Travel 11/14/2023 Orders Only [facility] Scanner 1 scan: (1-Ord) [facility], CT ABDOMEN PELVIS W CON , 11/14/2023 11/13/2023 10:35 AM CDT Office Visit [facility] [address] [place] [address] Geronimo Lamb MD Results (Discuss lab results); ER Follow up ([place] [facility], 11/11/2023, abdominal pain) 11/13/2023 Travel 11/11/2023 Telephone [facility] [place] [facility] [address] [place] [address] Dread Villavicencio MD Results 11/05/2023 12:45 PM CDT Orders Only [facility] [address] [place] [address] Lab, [place] Lab 11/05/2023 11:40 AM CDT Office Visit [facility] [address] [place] [address] Dread Villavicencio MD Follow Up (Seizure, having more neurological symptoms, having a hard time finding words, hands and feet going numb but nothing else. When sleeping, not sure if having seizure but she gets paralyzed where she can only move her head to look around but nothing else. ) 11/05/2023 Travel 10/16/2023 Orders Only [facility] Scanner 1 scan: (1-Ord) [facility], 10/16/2023 10/14/2023 9:30 AM CDT Office Visit [facility] [address] [place] [address] Ángel Campos, AuD Hearing Aid 10/14/2023 Telephone [facility] [address] [place] [address] Ángel Campos, AuD Ear Problem 10/14/2023 Nurse Triage [facility] Centralized Nurse Triage Geronimo Lamb MD Mouth/Lip Problem 10/14/2023 Travel 10/09/2023 Refill [facility] [address] [place] [address] Geronimo Lamb MD Refill Request (Paroxetine) 10/06/2023 Refill [facility] [address] [place] [address] Geronimo Lamb MD Refill Request (Myrbetriq, Omeprazole, Montelukast) 09/25/2023 Refill [facility] [address] [place] [address] Dread Villavicencio MD Refill Request (Levetiracetam) from Last 3 Months Immunizations Name Administration Dates Next Due COVID-19 Vaccine Spikevax (M oderna 50mcg/0.5mL) 12YO+ [id number] Formula PF 03/19/2023 COVID-19 vaccine ([employer] NTech 30mcg/0.3mL) 12YO+ BIVALENT PF, MDV 05/01/2022 COVID-19 vaccine ([employer] [place]-Bio NTech 30mcg/0.3mL) 12YO+ VAL-SUCROSE PF, MDV 08/29/2021 [...] T Respiratory Rate 90 06/10/2023 2:35 PM CEMENT DESPATCH OPERATOR Oxygen Saturation 92% 11/13/2023 10:40 AM CDT Inhaled Oxygen Concentration - - Weight 106.6 kg (235 lb) 11/13/2023 10:40 AM CDT Height 142.2 cm (4' 8) 07/24/2023 2:36 PM CEMENT DESPATCH OPERATOR Body Mass Index 52.69 07/24/2023 2:36 PM CEMENT DESPATCH OPERATOR Plan of Treatment Upcoming Encounters Date Type Department Care Team (Late st Contact Info) Description 02/05/2024 2:30 PM CDT Office Visit [facility] [address] [place] [address] Paolo Limon MD [address] [place] [address] 03/15/2024 9:00 AM CDT Orders Only [facility] [address] [place] [address] Lab, [place] 03/19/2024 1:15 PM CDT Office Visit [facility] [address] [place] [address] Geronimo Lamb MD [address] [place] [address] Health Maintenance Due Date Last Done Comments [...] Procedure Name Priority Date/Time Associated Diagnosis Comments EEG Routine 11/26/2023 9:30 AM CDT Seizure (HC) SCAN-CT INTERPRETATION 12:00 AM CDT LEVETIRACETAM (KEPPRA) Routine 12:29 PM CDT Seizure (HC) TSH WITH REFLEX Routine 11/05/2023 12:29 PM CDT Hypothyroidism (acquired) SCAN-CT INTERPRETATION 12:00 AM CDT LIPID PANEL W REFLEX MEASURED LDL Routine 03/19/2023 12:35 PM CDT Hyperlipidemia, unspecified hyperlipidemia type ANTI HIV 1/2 Routine 05/01/2022 4:36 PM CEMENT DESPATCH OPERATOR Encounter for screening for HIV ANTI HCV Routine 12/05/2021 9:30 AM CDT Need for hepatitis C screening test SCAN-MAMMOGRAPHY REPORT 02/24/2019 12:00 AM CDT from Last 3 Months or Most Recently Relevant to Health Maintenance Results * EEG (11/26/2023 9:30 AM CDT) Narrative Emerson Mcmahon MBBS - 11/26/2023 9:30 AM CDT Emerson Mcmahon MBBS ? 11/26/2023 ??2:39 PM Patient Name: ??Paloma Garcia Date of EEG - 11/26/23 Awake drowsy EEG Start: 10:19am End: 10:50am. Intro: 48 years old with shaking spells Description of EE-9 Hz posteriorly dominant rhythm during quiet wakefullness. The EEG background is disorganized. At 10:30:57am she had a spell of side to side head movement and alternated limb movements, the EEG was obscured by movement artifacts. The EEG was limited by muscle and movement artifacts. No clear epileptic spikes were seen during this recording. Impression: No clear spikes seen during this recording. One spell as above. If there is a concern to r/o epilepsy the a Video-EEG Monitoring would help, Dr Adi Heath does this at [facility]. Emerson Mcmahon MD, FAAN, PATRICIA Epileptologist, President - [facility] [place]. Dread Villavicencio MD NEUROLOGY ORD * SCAN-CT INTERPRETATION (11/14/2023 12:00 AM CDT) Only the most recent of2 resultswithin the time period is included. Anatomical Region Laterality Modality Other Scanner OTHER * TSH WITH REFLEX (11/05/2023 12:29 PM CDT) TSH 1.86 0.27 - 4.20 uIU/mL 11/05/2023 11:39 PM CDT [facility] Blood BLOOD SPECIMEN / Unknown Venipuncture / Unknown 11/05/2023 12:29 PM CDT 11/05/2023 12:30 PM CDT Narrative [facility] - 11/05/2023 11:39 PM CDT In Adults, TSH values between 5.00 and 10.00 uIU/ml do not necessarily indicate the presence of Hypothyroidism. Correlation with clinical findings such as presence of goiter and/or Thyroperoxidase (TPO) Antibody may be helpful. For more information please refer to SIVAN 2004; 291: 228-238. Geronimo Lamb MD CHEMISTRY [facility] [address] [place] [address], [place] * LEVETIRACETAM (KEPPRA) (11/05/2023 12:29 PM CDT) LEVETIRACETAM (KEPPRA) 19.1 6.0 - 46.0 ug/mL 11/05/2023 11:58 PM CDT [facility] Blood BLOOD SPECIMEN / Unknown Venipuncture / Unknown 11/05/2023 12:29 PM CDT 11/05/2023 12:30 PM CDT Narrative [facility] - 11/05/2023 11:58 PM CDT Reference Range is based on Trough Steady State in patients receiving recommended daily dose. ??The relationship between serum concentrations and toxicity is not known. Bivaracetam (Briviact??) interferes with measurements of levetiracetam (Keppra??) in the [employer] Levetiracetam Assay Dread Villavicencio MD SEND OUTS Performing Organization Address [facility]/ZIP Co de Phone Number [facility] [address] [place] [address], [place] * (ABNORMAL) LIPID PANEL W REFLEX MEASURED LDL (03/19/2023 12:35 PM CDT) CHOLESTEROL,TOTAL 258(H) 100 - 199 mg/dL 03/20/2023 8:11 AM CDT [facility] Comment: Cholesterol, Total Reference Ranges Desirable <200 mg/dL Borderline 200-239 mg/dL High >=240 mg/dL TRIGLYCERIDES 159(H) <150 mg/dL 03/20/2023 8:11 AM CDT [facility] HDL CHOLESTEROL 55 >40 mg/dL 8:11 AM CDT [facility] NON-HDL CHOLESTEROL 203(H) <145 mg/dl 03/20/2023 8:11 AM CDT [facility] CHOL/HDL RATIO 4.69(H) <4.50 03/20/2023 8:11 AM CDT [facility] LDL CHOLESTEROL 171(H) <=130 mg/dL 03/20/2023 8:11 AM CDT [facility] VLDL CHOLESTEROL 32(H) <=30 mg/dL 03/20/2023 8:11 AM CDT [facility] PROVIDER ORDERED STATUS RANDOM 03/20/2023 8:11 AM CDT [facility] Blood BLOOD SPECIMEN / Unknown Butterfly / Unknown 03/19/2023 12:35 PM CDT 03/19/2023 12:38 PM CDT Geronimo Lamb MD CHEMISTRY [facility] [address] [place] [address], [place] * ANTI HIV 1/2 (05/01/2022 4:36 PM CEMENT DESPATCH OPERATOR) Pathologist [facility] HIV-1/HIV-2 ANTIBODY Non-Reacti ve Non-Reacti ve 05/04/2022 9:59 PM CEMENT DESPATCH OPERATOR [facility] Comment:HIV-1 p24 and HIV-1/ HIV-2 Ab not detected. Blood BLOOD SPECIMEN / Unknown Butterfly / Unknown 05/01/2022 4:36 PM CEMENT DESPATCH OPERATOR 05/01/2022 4:41 PM CEMENT DESPATCH OPERATOR Geronimo Lamb MD SEND OUTS [facility] [address] [place] [address], [place] * ANTI HCV (12/05/2021 9:30 AM CDT) HEPATITIS C ANTIBODY Non-React shikha Non-React shikha 12/05/2021 9:16 PM CDT [facility] Comment:Antibodies to HCV no t detected; does not exclude the possibility of exposure to HCV. Blood BLOOD SPECIMEN / Unknown Venipuncture / Unknown 12/05/2021 9:30 AM CDT 12/05/2021 9:33 AM CDT Geronimo Lamb MD SEND OUTS [facility] [address] [place] [address], [place] * SCAN-MAMMOGRAPHY REPORT (02/24/2019 12:00 AM CDT) Anatomical Region Laterality Modality Other Scanner OTHER from Last 3 Months or Most Recently Relevant to Health Maintenance Care Teams Kitchenwhere Maker Relationship Specialty Start Date End Date Geronimo Lamb MD [address] [place] [address] PCP - General Family Practice 04/23/21 Paolo Limon MD Sleep Medicine 10/28/11 Talon Durham MD Neurology Neurology 11/26/11 Laura Gardner PsyD, SYMONE Psychology 09/14/13
--- OUTSIDE RECORDS SUMMARY | 2023-12-12 20:27 | XMS_ITS ---
Author Organization [facility] Address [address] [place] [address] Care Team Providers Care Mattress Weaver Name Role Phone Unavailable Unavailable Unavailable Surgery Details Not on file Complications Check Surgery Details section. Procedure Estimated Blood Loss Check Surgery Details section. Procedure Findings Check Surgery Details section. Procedure Specimens Taken Check Surgery Details section.
--- OUTSIDE RECORDS SUMMARY | 2023-12-12 20:27 | XMS_ITS | Clinical Summary ---
Author Organization [facility] Address [address] [place] [address] Care Team Providers Care Electrical Maintenance Mechanic Name Role Phone Elsewhere, Pcp Primary Care Provider Unavailabl e Source Comments Patient records contain information from all sites at [facility]. For routine questions regarding patient records, call [phone] during business hours, M-F 8:00 AM - 5:00 PM Central Time. Record requests for emergency care only can be directed to [phone] at any time.[facility] Allergies Active Allergy Reactions Criticality Noted [...] Sex Assigned at Female 06/02/2018 2:11 PM THERAPEUTIC ASSISTANT Gender Identity Female 06/02/2018 2:11 PM THERAPEUTIC ASSISTANT Sexual Orientation Choose not to disclose 2018 2:11 PM THERAPEUTIC ASSISTANT Last Filed Vital Signs Vital Sign [...] or Tdap) 10/29/2020 10/29/2010 Influenza Vaccine (#1) 2024 , 05/01/2022, 03/09/2018, Additional history exists Creatinine Level (Kidney Fun ction Test) 03/19/2024 [...] Completed 03/19/2023, 11/2021, 08/29/2021, Additional history exists Medical Devices Implanted Type Area Manager Practice Device Identifier Shelf Expiration Date Model / Serial / Lot Ear Implant- [id number] Implanted:11/24 (Quantity not on file) Ear Implant Ear [employer] Bernice Vega TORP Plasti-pore [id number] / / [id number] Description:[place], [place]. Ear implant-Vega TOPR Plasti-pore MRI Safe Procedures Procedure Name Priority Date/Time Associated Diagnosis Comments EXTI THYROID-STIMULATING HORMONE-SENSITIVE (S-TSH), S Routine 06/10/2023 3:22 PM THERAPEUTIC ASSISTANT EXTI LIPID PANEL W REFLEX MEASURED LDL Routine 03/19/2023 12:35 PM CDT EXTI BASIC METABOLIC PANEL, S/P Routine 03/19/2023 12:35 PM CDT from Last 3 Months or Most Recently Relevant to Health Maintenance Care Teams Electrical Maintenance Mechanic Relationship Specialty Start Date End Date Elsewhere, Pcp PCP - General Internal Medicine 12/04/18
--- OUTSIDE RECORDS SUMMARY | 2023-12-12 20:27 | XMS_ITS | Referral Summary ---
Author Organization [facility] Address [address] [place] [address] Care Team Providers Care Social Media Editor Name Role Phone Elsewhere, Pcp Primary Care Provider Unavailabl e Source Comments Patient records contain information from all sites at [facility]. For routine questions regarding patient records, call [phone] during business hours, M-F 8:00 AM - 5:00 PM Central Time. Record requests for emergency care only can be directed to [phone] at any time.[facility] Allergies Active Allergy Reactions Criticality Noted [...] Sex Assigned at Female 06/02/2018 2:11 PM LEAD BUSINESS SYSTEMS ANALYST Gender Identity Female 06/02/2018 2:11 PM LEAD BUSINESS SYSTEMS ANALYST Sexual Orientation Choose not to disclose 2018 2:11 PM LEAD BUSINESS SYSTEMS ANALYST Last Filed Vital Signs Vital Sign [...] on file Medical Devices Implanted Type Area Dry Cleaning Manager Device Identifier Shelf Expiration Date Model / Serial / Lot Ear Implant- [id number] Implanted:11/24 (Quantity not on file) Ear Implant Ear Olympus Bernice Vega TORP Plasti-pore [id number] / / [id number] Description:[facility], [place], [place]. Ear implant-Vega TOPR Plasti-pore MRI Safe Procedures Procedure Name Priority Date/Time Associated Diagnosis Comments EXTI THYROID-STIMULATING HORMONE-SENSITIVE (S-TSH), S Routine 06/10/2023 3:22 PM LEAD BUSINESS SYSTEMS ANALYST EXTI LIPID PANEL W REFLEX MEASURED LDL Routine 03/19/2023 12:35 PM CDT EXTI BASIC METABOLIC PANEL, S/P Routine 03/19/2023 12:35 PM CDT from Last 3 Months or Most Recently Relevant to Health Maintenance Care Teams Social Media Editor Relationship Specialty Start Date End Date Elsewhere, Pcp PCP - General Internal Medicine 12/04/18
[2023-12-12 20:34] VITALS: O2SAT 94
[2023-12-12 20:55] VITALS: O2SAT 94
== END 2023-12-12 20:55 | disposition home or self-care (01) ==
PROVIDERS: Emergency Provider Emergency Medicine Emergency Medical Services; PCP Family Medicine
DX: K29.70 Gastritis, unspecified, without bleeding (principal)
CPT/HCPCS: 99283; 99284; A9270

== ENCOUNTER 2024-01-03 22:43 | Outpatient (CLI) | payer MEDICAID, SELFPAY ==
--- OUTSIDE RECORDS SUMMARY | 2024-01-04 06:39 | XMS_ITS | Clinical Summary ---
Author Organization [facility] Address [address] [place] [address] Care Team Providers Care Clinic Lpn Name Role Phone Elsewhere, Pcp Primary Care Provider Unavailabl e Source Comments Patient records contain information from all sites at [facility]. For routine questions regarding patient records, call [phone] during business hours, M-F 8:00 AM - 5:00 PM Central Time. Record requests for emergency care only can be directed to [phone] at any time.[facility] [...] Sex Assigned at Female 06/02/2018 2:11 PM TELEGRAPH PLANT MAINTAINER Gender Identity Female 06/02/2018 2:11 PM TELEGRAPH PLANT MAINTAINER Sexual Orientation Choose not to disclose 2018 2:11 PM TELEGRAPH PLANT MAINTAINER Last Filed Vital Signs Vital Sign Reading [...] history exists Medical Devices Implanted Type Area Disaster Response Director Device Identifier Shelf Expiration Date Model / Serial / Lot Ear Implant- 011 Implanted:11/24 (Quantity not on file) Ear Implant Ear Olympus Bernice Vega TORP Plasti-pore [id number] / / [id number] Description:[place], [place]. Ear implant-Vega TOPR Plasti-pore MRI Safe Procedures Procedure Name Priority Date/Time Associated Diagnosis Comments THYROID-STIMULATING HORMONE-SENSITIVE (S-TSH) Routine 10/27/2018 3:42 PM CDT Hypothyroidism Primary BASIC METABOLIC PANEL, S/P Routine 03/11/2018 1:58 PM CDT Dizziness Diplopia LIPID PANEL, S Routine 06/10/2016 10:40 AM TELEGRAPH PLANT MAINTAINER from Last 3 Months or Most Recently Relevant to Health Maintenance Results * (ABNORMAL) S-TSH (Thyroid-Stimulating Hormone - Sensitive) (10/27/2018 3:42 PM CDT) TSH, Sensitive 10.7(H) 0.3 - 4.2 mIU/L 10/27/2018 5:20 PM CDT Comment: Biotin has been identified by the chemic mangler as a potential interfering substance. ??Higher concentrations of biotin may be found in multivitamins, hair/nail supplements, and workout supplements. ??If the result does not match clinical observations, repeat testing after patient refrains from the use of supplements for at least 12 hours. Blood (Blood, Venous) 10/27/2018 3:42 PM CDT 10/27/2018 3:43 PM CDT Deanne Tsang P.A.-C. LAB BLOOD ADD-O N Performing Organization Address City/State/[facility] Co de Phone Number [facility] [address] * Basic Metabolic Panel (03/11/2018 1:58 PM CDT) Pathologist [facility] Potassium, S 4.0 3.6 - 5.2 mmol/L 03/11/2018 2:29 PM CDT [facility] Sodium, S 141 135 - 145 mmol/L 03/11/2018 2:29 PM CDT [facility] Chloride, S 101 98 - 107 mmol/L 03/11/2018 2:29 PM CDT [facility] Bicarbonate, S 27 22 - 29 mmol/L 03/11/2018 2:29 PM CDT [facility] Anion Gap 13 7 - 15 03/11/2018 2:29 PM CDT [facility] BUN (Blood Urea Nitrogen), S 12 6 - 21 mg/dL 03/11/2018 2:29 PM CDT [facility] Creatinine 0.62 0.59 - 1.04 mg/dL 03/11/2018 2:29 PM CDT [facility] eGFR-Non Black/ >90 >=60 mL/min/BSA 03/11/2018 2:29 PM CDT [facility] Comment: ----ADDITIONAL INFORMATION---- Estimated GFR calculated using the 2009 CKD_EPI creatinine equation. eGFR-Black/Afri can Tanzanian >90 >=60 mL/min/BSA 03/11/2018 2:29 PM CDT [facility] Comment: ----ADDITIONAL INFORMATION---- Estimated GFR calculated using the 2009 CKD_EPI creatinine equation. Calcium, Total, S 9.4 8.6 - 10.0 mg/dL 03/11/2018 2:29 PM CDT [facility] Glucose, S 95 70 - 140 mg/dL 03/11/2018 2:29 PM CDT [facility] Blood (Blood, Venous) 03/11/2018 1:58 PM CDT 03/11/2018 1:58 PM CDT Deanne Tsang P.A.-C. LAB BLOOD ADD-O N Performing Organization Address City/State/[facility] Co de Phone Number [facility] [address] * (ABNORMAL) Lipid Panel (06/10/2016 10:40 AM TELEGRAPH PLANT MAINTAINER) Cholesterol, Total 275(H) <=199 MGDL POWERCHART Comment: [...] for FH and FDB is available through [facility] ScreenTag: FH/ADH Genetic Reflex Panel (test ADHP). Acquired (non-genetic) causes of markedly increased LDL cholesterol include cholestatic liver disease due to the presence of LpX. If a genetic form of hypercholesterolemia is suspected, family studies including biochemical testing for lipids (total cholesterol,triglycerides, LDL cholesterol and HDL cholesterol) are recommended. ??Please contact the laboratory at or the on-line test catalog at [employer]. for information about how to order these tests or to speak with a genetic counselor. Further interpretation would require clinical information. Total Cholesterol/HDL Ratio 5 POWERCHART Blood 06/10/2016 10:4 0 AM TELEGRAPH PLANT MAINTAINER Ana Chery M.D. LAB BLOOD ADD-O N POWERCHART from Last 3 Months or Most Recently Relevant to Health Maintenance Care Teams Clinic Lpn Relationship Specialty Start Date End Date Elsewhere, Pcp PCP - General Internal Medicine 12/04/18
--- OUTSIDE RECORDS SUMMARY | 2024-01-04 06:40 | XMS_ITS | Clinical Summary ---
Author Organization [facility] Address [place], [place] [address] Care Team Providers Care Customs Guard Name Role Phone Paolo Limon MD Unavailable Talon Durham MD Unavailable Laura Gardner PsyD, Unavailable [phone] Geronimo Lamb MD Primary Care Provider Allergies [...] Dispensed Refills Start Date End Date Status [facility], medication inventory control planner with [...] Anxiety and depression Dizziness Overview: Eval by [facility] neurology 2018. Thought to be functional. [...] Type Department Care Team Description 01/03/2024 Refill [facility] [address] [place] [address] Geronimo Lamb MD Refill Request (Myrbetriq) 11/26/2023 9:30 AM CDT - 11/26/2023 11:59 PM CDT Hospital Encounter [facility] EMG/EEG/EP [address] [address] Dread Villavicencio MD [place], Scott P Seizure (HC) 11/26/2023 Travel 11/14/2023 Orders Only [facility] Scanner 1 scan: (1-Ord) [facility], CT ABDOMEN PELVIS W CON , 11/14/2023 11/13/2023 10:35 AM CDT Office Visit [facility] [address] [place] [address] Geronimo Lamb MD Results (Discuss lab results); ER Follow up ([facility], 11/11/2023, abdominal pain) 11/13/2023 Travel 11/11/2023 Telephone [facility] [place] [facility] [address] [place] [address] Dread Villavicencio MD Results 11/05/2023 12:45 PM CDT Orders Only [facility] [address] [facility] [place] [address] Lab, [place] Lab 11/05/2023 11:40 AM CDT Office Visit [facility] [place] [facility] [address] [place] [address] Dread Villavicencio MD Follow Up (Seizure, having more neurological symptoms, having a hard time finding words, hands and feet going numb but nothing else. When sleeping, not sure if having seizure but she gets paralyzed where she can only move her head to look around but nothing else. ) 11/05/2023 Travel 10/16/2023 Orders Only [facility] Scanner 1 scan: (1-Ord) MARIAN, FACIAL BONES WO, 10/16/2023 10/14/2023 9:30 AM CDT Office Visit [facility] [address] [facility] [place] [address] Ángel Campos, AuD Hearing Aid 10/14/2023 Telephone [facility] [address] [place] [address] Ángel Campos, AuD Ear Problem 10/14/2023 Nurse Triage [facility] Centralized Nurse Triage Geronimo Lamb MD Mouth/Lip Problem 10/14/2023 Travel 10/09/2023 Refill [facility] [address] [place] [address] Geronimo Lamb MD Refill Request (Paroxetine) 10/06/2023 Refill [facility] [address] [place] [address] Geronimo Lamb MD Refill Request (Myrbetriq, Omeprazole, Montelukast) from Last 3 Months Immunizations Name Administration Dates Next Due COVID-19 Vaccine Spikevax (M oderna 50mcg/0.5mL) 12YO+ [id number] Formula PF 03/19/2023 COVID-19 vaccine (Pfizer-Bio NTech [...] T Respiratory Rate 90 06/10/2023 2:35 PM SLEEPER CUTTER Oxygen Saturation 92% 11/13/2023 10:40 AM CDT Inhaled Oxygen Concentration - - Weight 106.6 kg (235 lb) 11/13/2023 10:40 AM CDT Height 142.2 cm (4' 8) 07/24/2023 2:36 PM SLEEPER CUTTER Body Mass Index 52.69 07/24/2023 2:36 PM SLEEPER CUTTER Plan of Treatment Upcoming Encounters Date Type Department Care Team (Late st Contact Info) Description 02/05/2024 2:30 PM CDT Office Visit [facility] [address] [place] [address] Paolo Limon MD [address] [place] [address] 03/15/2024 9:00 AM CDT Orders Only [facility] [address] [place] [address] Lab, [place] 03/19/2024 1:15 PM CDT Office Visit [facility] [address] [place] [address] Geronimo Lamb MD [address] [place] [address] Health Maintenance Due Date Last Done Comments [...] ANTI HIV 1/2 Routine 05/01/2022 4:36 PM SLEEPER CUTTER Encounter for screening for HIV ANTI HCV [...] help, Dr Adi Heath does this at [place]. Emerson Mcmahon MD, FAAN, PATRICIA Epileptologist, President - [facility] Neuroscience, Spine [facility] [place]. Dread Villavicencio MD NEUROLOGY ORD * SCAN-CT INTERPRETATION (11/14/2023 12:00 AM CDT) Only the most recent of2 resultswithin the time period is included. Anatomical Region Laterality Modality Other Scanner OTHER * TSH WITH REFLEX (11/05/2023 12:29 PM CDT) TSH 1.86 0.27 - 4.20 uIU/mL 11/05/2023 11:39 PM CDT [facility] Blood BLOOD SPECIMEN / Unknown Venipuncture / Unknown 11/05/2023 12:29 PM CDT 11/05/2023 12:30 PM CDT N[facility]ative [facility] - 11/05/2023 11:39 PM CDT In Adults, TSH values between 5.00 and 10.00 uIU/ml do not necessarily indicate the presence of Hypothyroidism. Correlation with clinical findings such as presence of goiter and/or Thyroperoxidase (TPO) Antibody may be helpful. For more information please refer to SIVAN 2004; 291: 228-238. Geronimo Lamb MD CHEMISTRY [facility] [address] [place] [address], * LEVETIRACETAM (KEPPRA) (11/05/2023 12:29 PM CDT) LEVETIRACETAM (KEPPRA) 19.1 6.0 - 46.0 ug/mL 11/05/2023 11:58 PM CDT [facility] Blood BLOOD SPECIMEN / Unknown Venipuncture / Unknown 11/05/2023 12:29 PM CDT 11/05/2023 12:30 PM CDT [facility] - 11/05/2023 11:58 PM CDT Reference Range is based on Trough Steady State in patients receiving recommended daily dose. ??The relationship between serum concentrations and toxicity is not known. Bivaracetam (Briviact??) interferes with measurements of levetiracetam (Keppra??) in the PRK Levetiracetam Assay Dread Villavicencio MD SEND OUTS [facility] [address] [place] [address], * (ABNORMAL) LIPID PANEL W REFLEX MEASURED LDL (03/19/2023 12:35 PM CDT) CHOLESTEROL,TOTAL 258(H) 100 - 199 mg/dL 03/20/2023 8:11 AM CDT [facility] Comment: Cholesterol, Total Reference Ranges Desirable <200 mg/dL Borderline 200-239 mg/dL High >=240 mg/dL TRIGLYCERIDES 159(H) <150 mg/dL 03/20/2023 8:11 AM CDT [facility] HDL CHOLESTEROL 55 >40 mg/dL 8:11 AM CDT [facility] NON-HDL CHOLESTEROL 203(H) <145 mg/dl 03/20/2023 8:11 AM CDT [facility] CHOL/HDL RATIO 4.69(H) <4.50 03/20/2023 8:11 AM CDT [facility] LDL CHOLESTEROL 171(H) <=130 mg/dL 03/20/2023 8:11 AM CDT [facility] VLDL CHOLESTEROL 32(H) <=30 mg/dL 03/20/2023 8:11 AM CDT [facility] PROVIDER ORDERED STATUS RANDOM 03/20/2023 8:11 AM CDT [facility] Blood BLOOD SPECIMEN / Unknown Butterfly / Unknown 03/19/2023 12:35 PM CDT 03/19/2023 12:38 PM CDT Geronimo Lamb MD CHEMISTRY [facility] [address] [place] [address], [place] * ANTI HIV 1/2 (05/01/2022 4:36 PM SLEEPER CUTTER) HIV-1/HIV-2 ANTIBODY Non-Reacti ve Non-Reacti ve 05/04/2022 9:59 PM SLEEPER CUTTER [facility] Comment:HIV-1 p24 and HIV-1/ HIV-2 Ab not detected. Blood BLOOD SPECIMEN / Unknown Butterfly / Unknown 05/01/2022 4:36 PM SLEEPER CUTTER 05/01/2022 4:41 PM SLEEPER CUTTER Geronimo Lamb MD SEND OUTS Performing Organization Address [facility]/ZIP Co de Phone Number [facility] [address] [place] [address], [place] * ANTI HCV (12/05/2021 9:30 AM CDT) HEPATITIS C ANTIBODY Non-React shikha Non-React shikha 12/05/2021 9:16 PM CDT [facility] Comment:Antibodies to HCV no t detected; does not exclude the possibility of exposure to HCV. Blood BLOOD SPECIMEN / Unknown Venipuncture / Unknown 12/05/2021 9:30 AM CDT 12/05/2021 9:33 AM CDT Geronimo Lamb MD SEND OUTS [facility] [address] [place] [address], [place] * SCAN-MAMMOGRAPHY REPORT (02/24/2019 12:00 AM CDT) Anatomical Region Laterality Modality Other Scanner OTHER from Last 3 Months or Most Recently Relevant to Health Maintenance Care Teams Customs Guard Relationship Specialty Start Date End Date Geronimo Lamb MD [address] [place] [address] PCP - General Family Practice 04/23/21 Paolo Limon MD Sleep Medicine 10/28/11 Talon Durham MD Neurology Neurology 11/26/11 Laura Gardner PsyD, [facility] Psychology 09/14/13
--- OUTSIDE RECORDS SUMMARY | 2024-01-04 06:40 | XMS_ITS | Referral Summary ---
Author Organization [facility] Address [address] [place] [address] Care Team Providers Care Bone Cooking Operator Name Role Phone Elsewhere, Pcp Primary Care Provider Unavailabl e Source Comments Patient records contain information from all sites at [facility]. For routine questions regarding patient records, call [phone] during business hours, M-F 8:00 AM - 5:00 PM Central Time. Record requests for emergency care only can be directed to [phone] at any time.[facility] Allergies Active Allergy Reactions Criticality Noted Date [...] Sex Assigned at Female 06/02/2018 2:11 PM CONCRETE INSPECTOR Gender Identity Female 06/02/2018 2:11 PM CONCRETE INSPECTOR Sexual Orientation Choose not to disclose 2018 2:11 PM CONCRETE INSPECTOR Last Filed Vital Signs Vital Sign Reading [...] on file Medical Devices Implanted Type Area Toddler Lead Teacher Device Identifier Shelf Expiration Date Model / Serial / Lot Ear Implant- 011 Implanted:11/24 (Quantity not on file) Ear Implant Ear Olympus Bernice Vega TORP Plasti-pore [id number] / / [id number] Description:[facility], [place], [place]. Ear implant-Vega TOPR Plasti-pore MRI Safe Procedures Procedure Name Priority Date/Time Associated Diagnosis Comments THYROID-STIMULATING HORMONE-SENSITIVE (S-TSH) Routine 10/27/2018 3:42 PM CDT Hypothyroidism Primary BASIC METABOLIC PANEL, S/P Routine 03/11/2018 1:58 PM CDT Dizziness Diplopia LIPID PANEL, S Routine 06/10/2016 10:40 AM CONCRETE INSPECTOR from Last 3 Months or Most Recently Relevant to Health Maintenance Results * (ABNORMAL) S-TSH (Thyroid-Stimulating Hormone - Sensitive) (10/27/2018 3:42 PM CDT) TSH, Sensitive 10.7(H) 0.3 - 4.2 mIU/L 10/27/2018 5:20 PM CDT Comment: Biotin has been identified by the commercial energy rater as a potential interfering substance. ??Higher concentrations of biotin may be found in multivitamins, hair/nail supplements, and workout supplements. ??If the result does not match clinical observations, repeat testing after patient refrains from the use of supplements for at least 12 hours. Blood (Blood, Venous) 10/27/2018 3:42 PM CDT 10/27/2018 3:43 PM CDT Deanne Tsang P.A.-C. LAB BLOOD ADD-O N [facility] [address] * Basic Metabolic Panel (03/11/2018 1:58 PM CDT) [facility] Potassium, S 4.0 3.6 - 5.2 mmol/L 03/11/2018 2:29 PM CDT [facility] Sodium, S 141 135 - 145 mmol/L 03/11/2018 2:29 PM CDT [facility] Chloride, S 101 98 - 107 mmol/L 03/11/2018 2:29 PM CDT [facility] Bicarbonate, S 27 22 - 29 mmol/L 03/11/2018 2:29 PM CDT [facility] Anion Gap 13 7 - 15 03/11/2018 2:29 PM CDT [facility] BUN (Blood Urea Nitrogen), S 12 6 - 21 mg/dL 03/11/2018 2:29 PM CDT [facility] Creatinine 0.62 0.59 - 1.04 mg/dL 03/11/2018 2:29 PM CDT [facility] eGFR-Non Black/ >90 >=60 mL/min/BSA 03/11/2018 2:29 PM CDT [facility] Comment: ----ADDITIONAL INFORMATION---- Estimated GFR calculated using the 2009 CKD_EPI creatinine equation. eGFR-Black/Afri can Congolese >90 >=60 mL/min/BSA 03/11/2018 2:29 PM CDT [facility] Comment: ----ADDITIONAL INFORMATION---- Estimated GFR calculated using the 2009 CKD_EPI creatinine equation. Calcium, Total, S 9.4 8.6 - 10.0 mg/dL 03/11/2018 2:29 PM CDT [facility] Glucose, S 95 70 - 140 mg/dL 03/11/2018 2:29 PM CDT [facility] Blood (Blood, Venous) 03/11/2018 1:58 PM CDT 03/11/2018 1:58 PM CDT Deanne Tsang P.A.-C. LAB BLOOD ADD-O N [facility] [address] [place] [address], [facility] * (ABNORMAL) Lipid Panel (06/10/2016 10:40 AM CONCRETE INSPECTOR) Cholesterol, Total 275(H) <=199 MGDL POWERCHART Comment: [...] for FH and FDB is available through [facility] [employer]: FH/ADH Genetic Reflex Panel (test ADHP). Acquired (non-genetic) causes of markedly increased LDL cholesterol include cholestatic liver disease due to the presence of LpX. If a genetic form of hypercholesterolemia is suspected, family studies including biochemical testing for lipids (total cholesterol,triglycerides, LDL cholesterol and HDL cholesterol) are recommended. ??Please contact the laboratory at or the on-line test catalog at [employer] for information about how to order these tests or to speak with a genetic counselor. Further interpretation would require clinical information. Total Cholesterol/HDL Ratio 5 POWERCHART Blood 06/10/2016 10:4 0 AM CONCRETE INSPECTOR Ana Chery M.D. LAB BLOOD ADD-O N POWERCHART from Last 3 Months or Most Recently Relevant to Health Maintenance Care Teams Bone Cooking Operator Relationship Specialty Start Date End Date Elsewhere, Pcp PCP - General Internal Medicine 12/04/18
--- OUTSIDE RECORDS SUMMARY | 2024-01-04 06:40 | XMS_ITS ---
Author Organization [facility] Address [address] [place] [address] Care Team Providers Care Assistant Boys Track Coach Name Role Phone Unavailable Unavailable Unavailable Surgery Details Not on file Complications Check Surgery Details section. Procedure Estimated Blood Loss Check Surgery Details section. Procedure Findings Check Surgery Details section. Procedure Specimens Taken Check Surgery Details section.
== END 2024-01-03 22:44 | disposition home or self-care (01) ==
PROVIDERS: PCP Family Medicine; Visit Provider Family Medicine
DX: M62.838 Other muscle spasm (principal); R51.9 Headache, unspecified; R53.83 Other fatigue
CPT/HCPCS: A0425; A0429

== ENCOUNTER 2024-01-03 23:08 | Emergency (ER) | payer OTHER, SELFPAY ==
[2024-01-03 23:17] VITALS: BP 141/88; PULSE 101; RESP 24; TEMP 37.6; O2SAT 94; BMI 49.8
--- OUTSIDE RECORDS SUMMARY | 2024-01-03 23:47 | XMS_ITS | Referral Summary ---
Author Organization [facility] Address [address] [place] [address] Care Team Providers Care Cosmetologist Apprentice Name Role Phone Elsewhere, Pcp Primary Care Provider Unavailabl e Source Comments Patient records contain information from all sites at [facility]. For routine questions regarding patient records, call [phone] during business hours, M-F 8:00 AM - 5:00 PM Central Time. Record requests for emergency care only can be directed to [phone] at any time.[facility] Allergies Active Allergy Reactions Criticality Noted Date [...] Sex Assigned at Female 06/02/2018 2:11 PM WATCH AND CLOCK REPAIR CLERK Gender Identity Female 06/02/2018 2:11 PM WATCH AND CLOCK REPAIR CLERK Sexual Orientation Choose not to disclose 2018 2:11 PM WATCH AND CLOCK REPAIR CLERK Last Filed Vital Signs Vital Sign [...] on file Medical Devices Implanted Type Area Android Software Engineer Device Identifier Shelf Expiration Date Model / Serial / Lot Ear Implant- 011 Implanted:11/24 (Quantity not on file) Ear Implant Ear Olympus Bernice Vega TORP Plasti-pore [id number] / / [id number] Description:[facility], [place], [place]. Ear implant-Vega TOPR Plasti-pore MRI Safe Procedures Procedure Name Priority Date/Time Associated Diagnosis Comments THYROID-STIMULATING HORMONE-SENSITIVE (S-TSH) Routine 10/27/2018 3:42 PM CDT Hypothyroidism Primary BASIC METABOLIC PANEL, S/P Routine 03/11/2018 1:58 PM CDT Dizziness Diplopia LIPID PANEL, S Routine 06/10/2016 10:40 AM WATCH AND CLOCK REPAIR CLERK from Last 3 Months or Most Recently Relevant to Health Maintenance Results * (ABNORMAL) S-TSH (Thyroid-Stimulating Hormone - Sensitive) (10/27/2018 3:42 PM CDT) TSH, Sensitive 10.7(H) 0.3 - 4.2 mIU/L 10/27/2018 5:20 PM CDT Comment: Biotin has been identified by the dishing machine operator as a potential interfering substance. ??Higher concentrations of biotin may be found in multivitamins, hair/nail supplements, and workout supplements. ??If the result does not match clinical observations, repeat testing after patient refrains from the use of supplements for at least 12 hours. Blood (Blood, Venous) 10/27/2018 3:42 PM CDT 10/27/2018 3:43 PM CDT Deanne sTang P.A.-C. LAB BLOOD ADD-O N [facility] [address] * Basic Metabolic Panel (03/11/2018 1:58 PM CDT) [facility] Potassium, S 4.0 3.6 - 5.2 mmol/L 03/11/2018 2:29 PM CDT [facility] Sodium, S 141 135 - 145 mmol/L 03/11/2018 2:29 PM CDT [facility] Chloride, S 101 98 - 107 mmol/L 03/11/2018 2:29 PM CDT [facility] Bicarbonate, S 27 22 - 29 mmol/L 03/11/2018 2:29 PM CDT [facility] Anion Gap 13 7 - 15 03/11/2018 2:29 PM CDT [facility] BUN (Blood Urea Nitrogen), S 12 6 - 21 mg/dL 03/11/2018 2:29 PM CDT [facility] Creatinine 0.62 0.59 - 1.04 mg/dL 03/11/2018 2:29 PM CDT [facility] eGFR-Non Black/ >90 >=60 mL/min/BSA 03/11/2018 2:29 PM CDT [facility] Comment: ----ADDITIONAL INFORMATION---- Estimated GFR calculated using the 2009 CKD_EPI creatinine equation. eGFR-Black/Afri can Swiss >90 >=60 mL/min/BSA 03/11/2018 2:29 PM CDT [facility] Comment: ----ADDITIONAL INFORMATION---- Estimated GFR calculated using the 2009 CKD_EPI creatinine equation. Calcium, Total, S 9.4 8.6 - 10.0 mg/dL 03/11/2018 2:29 PM CDT [facility] Glucose, S 95 70 - 140 mg/dL 03/11/2018 2:29 PM CDT [facility] Blood (Blood, Venous) 03/11/2018 1:58 PM CDT 03/11/2018 1:58 PM CDT Deanne Tsang P.A.-C. LAB BLOOD ADD-O N [facility] [address] [place] [address], [facility] * (ABNORMAL) Lipid Panel (06/10/2016 10:40 AM WATCH AND CLOCK REPAIR CLERK) Cholesterol, Total 275(H) <=199 MGDL POWERCHART [...] for FH and FDB is available through [employer]: FH/ADH Genetic Reflex Panel (test ADHP). Acquired (non-genetic) causes of markedly increased LDL cholesterol include cholestatic liver disease due to the presence of LpX. If a genetic form of hypercholesterolemia is suspected, family studies including biochemical testing for lipids (total cholesterol,triglycerides, LDL cholesterol and HDL cholesterol) are recommended. ??Please contact the laboratory at or the on-line test catalog at [employer] for information about how to order these tests or to speak with a genetic counselor. Further interpretation would require clinical information. Total Cholesterol/HDL Ratio 5 POWERCHART Blood 06/10/2016 10:4 0 AM WATCH AND CLOCK REPAIR CLERK Ana Chery M.D. LAB BLOOD ADD-O N POWERCHART from Last 3 Months or Most Recently Relevant to Health Maintenance Care Teams Cosmetologist Apprentice Relationship Specialty Start Date End Date Elsewhere, Pcp PCP - General Internal Medicine 12/04/18
--- OUTSIDE RECORDS SUMMARY | 2024-01-03 23:47 | XMS_ITS ---
Author Organization [facility] Address [address] [place] [address] Care Team Providers Care Associate Designer Name Role Phone Unavailable Unavailable Unavailable Surgery Details Not on file Complications Check Surgery Details section. Procedure Estimated Blood Loss Check Surgery Details section. Procedure Findings Check Surgery Details section. Procedure Specimens Taken Check Surgery Details section.
--- OUTSIDE RECORDS SUMMARY | 2024-01-03 23:47 | XMS_ITS | Clinical Summary ---
Author Organization [facility] Address [address] [place] [address] Care Team Providers Care Broadcast Technician Name Role Phone Elsewhere, Pcp Primary Care Provider Unavailabl e Source Comments Patient records contain information from all sites at [facility]. For routine questions regarding patient records, call [phone] during business hours, M-F 8:00 AM - 5:00 PM Central Time. Record requests for emergency care only can be directed to [phone] at any time.[facility] Allergies Active Allergy Reactions Criticality Noted [...] Sex Assigned at Female 06/02/2018 2:11 PM CHINESE LANGUAGE PROFESSOR Gender Identity Female 06/02/2018 2:11 PM CHINESE LANGUAGE PROFESSOR Sexual Orientation Choose not to disclose 2018 2:11 PM CHINESE LANGUAGE PROFESSOR Last Filed Vital Signs Vital Sign [...] history exists Medical Devices Implanted Type Area Needleworker Device Identifier Shelf Expiration Date Model / Serial / Lot Ear Implant- 011 Implanted:11/24 (Quantity not on file) Ear Implant Ear Olympus Bernice Vega TORP Plasti-pore [id number] / / [id number] Description:[place], [place]. Ear implant-Vega TOPR Plasti-pore MRI Safe Procedures Procedure Name Priority Date/Time Associated Diagnosis Comments THYROID-STIMULATING HORMONE-SENSITIVE (S-TSH) Routine 10/27/2018 3:42 PM CDT Hypothyroidism Primary BASIC METABOLIC PANEL, S/P Routine 03/11/2018 1:58 PM CDT Dizziness Diplopia LIPID PANEL, S Routine 06/10/2016 10:40 AM CHINESE LANGUAGE PROFESSOR from Last 3 Months or Most Recently Relevant to Health Maintenance Results * (ABNORMAL) S-TSH (Thyroid-Stimulating Hormone - Sensitive) (10/27/2018 3:42 PM CDT) TSH, Sensitive 10.7(H) 0.3 - 4.2 mIU/L 10/27/2018 5:20 PM CDT Comment: Biotin has been identified by the elementary educator as a potential interfering substance. ??Higher concentrations of biotin may be found in multivitamins, hair/nail supplements, and workout supplements. ??If the result does not match clinical observations, repeat testing after patient refrains from the use of supplements for at least 12 hours. Blood (Blood, Venous) 10/27/2018 3:42 PM CDT 10/27/2018 3:43 PM CDT Deanne Tsang P.A.-C. LAB BLOOD ADD-O N Performing Organization Address City/State/[facility] Co de Phone Number [facility] [address] * Basic Metabolic Panel (03/11/2018 1:58 PM CDT) Pathologist [facility] Potassium, S 4.0 3.6 - 5.2 mmol/L 03/11/2018 2:29 PM CDT [facility] Sodium, S 141 135 - 145 mmol/L 03/11/2018 2:29 PM CDT [facility] Chloride, S 101 98 - 107 mmol/L 03/11/2018 2:29 PM CDT [facility] Bicarbonate, S 27 22 - 29 mmol/L 03/11/2018 2:29 PM CDT [facility] Anion Gap 13 7 - 15 03/11/2018 2:29 PM CDT [facility] BUN (Blood Urea Nitrogen), S 12 6 - 21 mg/dL 03/11/2018 2:29 PM CDT [facility] Creatinine 0.62 0.59 - 1.04 mg/dL 03/11/2018 2:29 PM CDT [facility] eGFR-Non Black/ >90 >=60 mL/min/BSA 03/11/2018 2:29 PM CDT [facility] Comment: ----ADDITIONAL INFORMATION---- Estimated GFR calculated using the 2009 CKD_EPI creatinine equation. eGFR-Black/Afri can Albanian >90 >=60 mL/min/BSA 03/11/2018 2:29 PM CDT [facility] Comment: ----ADDITIONAL INFORMATION---- Estimated GFR calculated using the 2009 CKD_EPI creatinine equation. Calcium, Total, S 9.4 8.6 - 10.0 mg/dL 03/11/2018 2:29 PM CDT [facility] Glucose, S 95 70 - 140 mg/dL 03/11/2018 2:29 PM CDT [facility] Blood (Blood, Venous) 03/11/2018 1:58 PM CDT 03/11/2018 1:58 PM CDT Deanne Tsang P.A.-C. LAB BLOOD ADD-O N Performing Organization Address City/State/[facility] Co de Phone Number [facility] [address] * (ABNORMAL) Lipid Panel (06/10/2016 10:40 AM CHINESE LANGUAGE PROFESSOR) Cholesterol, Total 275(H) <=199 MGDL POWERCHART Comment: [...] for FH and FDB is available through [facility]: FH/ADH Genetic Reflex Panel (test ADHP). Acquired (non-genetic) causes of markedly increased LDL cholesterol include cholestatic liver disease due to the presence of LpX. If a genetic form of hypercholesterolemia is suspected, family studies including biochemical testing for lipids (total cholesterol,triglycerides, LDL cholesterol and HDL cholesterol) are recommended. ??Please contact the laboratory at or the on-line test catalog at [employer] for information about how to order these tests or to speak with a genetic counselor. Further interpretation would require clinical information. Total Cholesterol/HDL Ratio 5 POWERCHART Blood 06/10/2016 10:4 0 AM CHINESE LANGUAGE PROFESSOR Ana Chery M.D. LAB BLOOD ADD-O N POWERCHART from Last 3 Months or Most Recently Relevant to Health Maintenance Care Teams Broadcast Technician Relationship Specialty Start Date End Date Elsewhere, Pcp PCP - General Internal Medicine 12/04/18
--- OUTSIDE RECORDS SUMMARY | 2024-01-03 23:47 | XMS_ITS | Clinical Summary ---
Author Organization [facility] Address [place], [place] [address] Care Team Providers Care Inspector Hot Forgings Name Role Phone Paolo Limon MD Unavailable Talon Durham MD Unavailable [phone] Laura Gardner PsyD, Unavailable [phone] Geronimo Lamb MD Primary Care Provider Allergies [...] Refills Start Date End Date Status [facility], medication assortment planner with alarm 1 unit 0 04/22/2014 [...] Anxiety and depression Dizziness Overview: Eval by [facility] neurology 2018. Thought to be functional. [...] Encounters Date Type Department Care Team Description 01/03/2024 Refill [facility] [address] [place] [address] Geronimo Lamb MD Refill Request (Myrbetriq) 11/26/2023 9:30 AM CDT - 11/26/2023 11:59 PM CDT Hospital Encounter [facility] EMG/EEG/EP [address] [address] Dread Villavicencio MD [place], Scott P Seizure (HC) 11/26/2023 Travel 11/14/2023 Orders Only [facility] Scanner 1 scan: (1-Ord) [facility], CT ABDOMEN PELVIS W CON , 11/14/2023 11/13/2023 10:35 AM CDT Office Visit [facility] [address] [place] [address] Geronimo Lamb MD Results (Discuss lab results); ER Follow up ([place] [facility], 11/11/2023, abdominal pain) 11/13/2023 Travel 11/11/2023 Telephone [facility] [place] [facility] [address] [place] [address] Dread Villavicencio MD Results 11/05/2023 12:45 PM CDT Orders Only [facility] [address] [facility] [place] [address] Lab, [place] Lab 11/05/2023 11:40 AM CDT Office Visit [facility] [place] [facility] [address] [place] [address] Dread Villavicencio MD Follow Up (Seizure, having more neurological symptoms, having a hard time finding words, hands and feet going numb but nothing else. When sleeping, not sure if having seizure but she gets paralyzed where she can only move her head to look around but nothing else. ) 11/05/2023 Travel 10/16/2023 Orders Only [facility] Scanner 1 scan: (1-Ord) MARIAN, FACIAL BONES WO, 10/16/2023 10/14/2023 9:30 AM CDT Office Visit [facility] [address] [facility] [place] [address] Ángel Campos, AuD Hearing Aid 10/14/2023 Telephone [facility] [address] [place] [address] Ángel Campos, AuD Ear Problem 10/14/2023 Nurse Triage [facility] Centralized Nurse Triage Geronimo Lamb MD Mouth/Lip Problem 10/14/2023 Travel 10/09/2023 Refill [facility] [address] [place] [address] Geronimo Lamb MD Refill Request (Paroxetine) 10/06/2023 Refill [facility] [address] [place] [address] Geronimo Lamb MD Refill Request (Myrbetriq, Omeprazole, Montelukast) from Last 3 Months Immunizations Name Administration Dates Next Due COVID-19 Vaccine Spikevax (M oderna 50mcg/0.5mL) 12YO+ [id number] Formula PF 03/19/2023 COVID-19 vaccine (Pfizer-Bio NTech [...] T Respiratory Rate 90 06/10/2023 2:35 PM WEB ANALYTICS SPECIALIST Oxygen Saturation 92% 11/13/2023 10:40 AM CDT Inhaled Oxygen Concentration - - Weight 106.6 kg (235 lb) 11/13/2023 10:40 AM CDT Height 142.2 cm (4' 8) 07/24/2023 2:36 PM WEB ANALYTICS SPECIALIST Body Mass Index 52.69 07/24/2023 2:36 PM WEB ANALYTICS SPECIALIST Plan of Treatment Upcoming Encounters Date Type Department Care Team (Late st Contact Info) Description 02/05/2024 2:30 PM CDT Office Visit [facility] [address] [place] [address] Paolo Limon MD [address] [place] [address] 03/15/2024 9:00 AM CDT Orders Only [facility] [address] [place] [address] Lab, [place] 03/19/2024 1:15 PM CDT Office Visit [facility] [address] [place] [address] Geronimo Lamb MD [address] [place] [address] Health Maintenance Due Date Last Done Comments [...] ANTI HIV 1/2 Routine 05/01/2022 4:36 PM WEB ANALYTICS SPECIALIST Encounter for screening for HIV ANTI [...] help, Dr Adi Heath does this at [place]. Emerson Mcmahon MD, FAAN, PATRICIA Epileptologist, President - [facility] [place]. Dread Villavicencio MD NEUROLOGY ORD * SCAN-CT INTERPRETATION (11/14/2023 12:00 AM CDT) Only the most recent of2 resultswithin the time period is included. Anatomical Region Laterality Modality Other Scanner OTHER * TSH WITH REFLEX (11/05/2023 12:29 PM CDT) TSH 1.86 0.27 - 4.20 uIU/mL 11/05/2023 11:39 PM CDT [facility] Blood BLOOD SPECIMEN / Unknown Venipuncture / Unknown 11/05/2023 12:29 PM CDT 11/05/2023 12:30 PM CDT Narrative [facility] - 11/05/2023 11:39 PM CDT In Adults, TSH values between 5.00 and 10.00 uIU/ml do not necessarily indicate the presence of Hypothyroidism. Correlation with clinical findings such as presence of goiter and/or Thyroperoxidase (TPO) Antibody may be helpful. For more information please refer to SIVAN 2004; 291: 228-238. Geronimo Lamb MD CHEMISTRY [facility] [address] [place] [address], * LEVETIRACETAM (KEPPRA) (11/05/2023 12:29 PM CDT) LEVETIRACETAM (KEPPRA) 19.1 6.0 - 46.0 ug/mL 11/05/2023 11:58 PM CDT [facility] Blood BLOOD SPECIMEN / Unknown Venipuncture / Unknown 11/05/2023 12:29 PM CDT 11/05/2023 12:30 PM CDT [facility] - 11/05/2023 11:58 PM CDT Reference Range is based on Trough Steady State in patients receiving recommended daily dose. ??The relationship between serum concentrations and toxicity is not known. Bivaracetam (Briviact??) interferes with measurements of levetiracetam (Keppra??) in the VTK Levetiracetam Assay Dread Villavicencio MD SEND OUTS [facility] [address] [place] [address], * (ABNORMAL) LIPID PANEL W REFLEX MEASURED LDL (03/19/2023 12:35 PM CDT) CHOLESTEROL,TOTAL 258(H) 100 - 199 mg/dL 03/20/2023 8:11 AM CDT [facility] Comment: Cholesterol, Total Reference Ranges Desirable <200 mg/dL Borderline 200-239 mg/dL High >=240 mg/dL TRIGLYCERIDES 159(H) <150 mg/dL 03/20/2023 8:11 AM CDT [facility] HDL CHOLESTEROL 55 >40 mg/dL 8:11 AM CDT [facility] NON-HDL CHOLESTEROL 203(H) <145 mg/dl 03/20/2023 8:11 AM CDT [facility] CHOL/HDL RATIO 4.69(H) <4.50 03/20/2023 8:11 AM CDT [facility] LDL CHOLESTEROL 171(H) <=130 mg/dL 03/20/2023 8:11 AM CDT [facility] VLDL CHOLESTEROL 32(H) <=30 mg/dL 03/20/2023 8:11 AM CDT [facility] PROVIDER ORDERED STATUS RANDOM 03/20/2023 8:11 AM CDT [facility] Blood BLOOD SPECIMEN / Unknown Butterfly / Unknown 03/19/2023 12:35 PM CDT 03/19/2023 12:38 PM CDT Geronimo Lamb MD CHEMISTRY [facility] [address] [place] [address], [place] * ANTI HIV 1/2 (05/01/2022 4:36 PM WEB ANALYTICS SPECIALIST) HIV-1/HIV-2 ANTIBODY Non-Reacti ve Non-Reacti ve 05/04/2022 9:59 PM WEB ANALYTICS SPECIALIST [facility] Comment:HIV-1 p24 and HIV-1/ HIV-2 Ab not detected. Blood BLOOD SPECIMEN / Unknown Butterfly / Unknown 05/01/2022 4:36 PM WEB ANALYTICS SPECIALIST 05/01/2022 4:41 PM WEB ANALYTICS SPECIALIST Geronimo Lamb MD SEND OUTS Performing Organization Address [facility]/ZIP Co de Phone Number [facility] [address] [place] [address], [place] * ANTI HCV (12/05/2021 9:30 AM CDT) HEPATITIS C ANTIBODY Non-React shikha Non-React shikha 12/05/2021 9:16 PM CDT [facility] Comment:Antibodies to HCV no t detected; does not exclude the possibility of exposure to HCV. Blood BLOOD SPECIMEN / Unknown Venipuncture / Unknown 12/05/2021 9:30 AM CDT 12/05/2021 9:33 AM CDT Geronimo Lamb MD SEND OUTS [facility] [address] [place] [address], [place] * SCAN-MAMMOGRAPHY REPORT (02/24/2019 12:00 AM CDT) Anatomical Region Laterality Modality Other Scanner OTHER from Last 3 Months or Most Recently Relevant to Health Maintenance Care Teams Inspector Hot Forgings Relationship Specialty Start Date End Date Geronimo Lamb MD [address] [place] [address] PCP - General Family Practice 04/23/21 Paolo Limon MD Sleep Medicine 10/28/11 Talon Durham MD Neurology Neurology 11/26/11 Laura Gardner PsyD, [facility] Psychology 09/14/13
--- NOTE | 2024-01-04 00:10 | ED_ITS ---
HPI - General Adult General Chief complaint: Unspecified Complaint, Adult Stated complaint: weakness Time Seen by Provider: 01/03/24 23:09 History of Present Illness HPI narrative: pt called ems tonight for cramping in lower bilat rib area and increased weakness. pt states she also had some blurriness in R eye with pins and needle feeling throughout body . ems states they asked pt a question, then pt started shaking for around 10 seconds, then within 5 seconds of stopping she answered the question appropriately. she states she has these seizures, no post ictal per ems. chronic 1lnc per pt statement. pt states she feels she has a harder time breathing last couple days compared to her normal. pt does state her family tested positive for covid 1-2 weeks ago and she was with them 48-year-old woman presenting to the emergency department via EMS. Primary concern appears to be some increased shortness of breath. She does have oxygen via nasal cannula available. Did not having chest pain. Has not really been coughing. There was exposure to family a week or 2 ago who subsequently tested positive for COVID. Otherwise as I am assessing her she has been having cramps in her upper thighs anteriorly when goes to walk to the bathroom. Is limited in the physical activity she can do. Has also been getting pinching pain bilaterally in her upper outer chest/flank area. Also seems to be positional as she describes it. Getting up from the couch then has to stand for a bit and then stretched slowly up. No dysuria or frequency. 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 Related Data Home Medications ?Medication ?Instructions ?Recorded ?Confirmed albuterol sulfate 90 mcg/actuation 2 puff inhalation Q4H PRN 11/30/21 12/01/23 aerosol inhaler mirabegron 50 mg tablet,extended 50 mg PO DAILY 11/30/21 12/01/23 release 24 hr (Myrbetriq) montelukast 10 mg tablet 10 mg PO HS 11/30/21 12/01/23 omeprazole 20 mg capsule,delayed 40 mg PO DAILY 02/26/22 12/01/23 release levetiracetam 750 mg tablet 750 mg PO BID 11/25/22 12/01/23 (Keppra) cholecalciferol (vitamin D3) 50 50 mcg PO DAILY 01/30/23 12/01/23 mcg (2,000 unit) capsule paroxetine HCl 40 mg tablet 40 mg PO DAILY 01/30/23 12/01/23 levothyroxine 100 mcg tablet 100 mcg PO DAILY 10/16/23 10/16/23 potassium chloride 10 mEq 10 meq PO DAILY 10/16/23 12/01/23 tablet,extended release Previous Rx's ?Medication ?Instructions ?Recorded albuterol sulfate 2.5 mg/3 mL 2.5 mg (3 mL) inhalation Q8H PRN 02/02/23 (0.083 %) solution for nebulization #1 mL budesonide-formoterol HFA 160 2 puff inhalation BID #1 g 02/02/23 mcg-4.5 mcg/actuation aerosol inhaler (Symbicort) furosemide 40 mg tablet 40 mg PO DAILY #30 tabs 02/02/23 tiotropium bromide 2.5 2 puff inhalation DAILY #1 g 02/02/23 mcg/actuation mist for inhalation (Spiriva Respimat) Allergies Allergy/AdvReac Type Severity Reaction Status Date / Time azithromycin Allergy Intermediate Bloody Verified 12/01/23 11:48 Stools latex Allergy Intermediate Rash Verified 12/01/23 11:48 oxycodone Allergy Intermediate Agitated Verified 12/01/23 11:48 scopolamine Allergy Intermediate Tremors Verified 12/01/23 11:48 acetaminophen [From Percocet] Allergy Mild Verified 12/01/23 11:48 basil Allergy Rash Verified 12/01/23 11:48 Review of Systems Status of ROS: Reports: 6 or more systems reviewed and unremarkable except as noted in History and below [facility] Medical History Hypothyroidism ?E03.9 - Hypothyroidism, unspecified (ICD-10) Acute and chronic respiratory failure with hypoxia ?J96.21 - Acute and chronic respiratory failure with hypoxia (ICD-10) 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 - Unspecified convulsions (ICD-10) RODRICK (obstructive sleep apnea) ?G47.33 - Obstructive sleep apnea (adult) (pediatric) (ICD-10) ADHD ?F90.9 - Attention-deficit hyperactivity disorder, unspecified type (ICD-10) Hyperthyroidism ?E05.90 - Thyrotoxicosis, unspecified without thyrotoxic crisis or storm (ICD-10) Hydrocephalus ?G91.9 - Hydrocephalus, unspecified (ICD-10) Hyperlipidemia ?E78.5 - Hyperlipidemia, unspecified (ICD-10) Anxiety and depression ?F41.9 - Anxiety disorder, unspecified (ICD-10) ?F32.A - Depression, unspecified (ICD-10) Asthma ?J45.909 - Unspecified asthma, uncomplicated (ICD-10) Surgical History History of ear surgery ?Z98.890 - Other specified postprocedural states (ICD-10) History of strabismus surgery ?Z98.890 - Other specified postprocedural states (ICD-10) Social History Narrative: on disability since 2009; lives alone with her cat. nonsmoker, no drugs, no significant tobacco history adopted, her two adopted aunts are her family contacts. What is your current living situation?: I presently have a place to live Problems where you live: no known problems Problems where you live details: None In the past 12 months, utilities in danger of being shut off: no In past 12 months, lack of transportation kept you from medical appts, meetings, work, or getting things needed for daily living: no In the past 12 mos, have been you worried that your food would run out before you had money to buy more?: never true In the past 12 mos, the food you bought just didn't last and you didn't have money to buy more?: never true Highest level of school completed/degree received: Associate degree: academic program Smoking Status: Never smoker Do you use any of these nicotine containing products: None Second hand tobacco smoke exposure: No How often do you have a drink containing alcohol: never How often do you have six or more drinks on one occasion: Never AUDIT-C Alcohol total score: 0 Non-prescribed substance use: denies use Caffeine: Yes (Pop ocassionally) How often does anyone, including family, friends and others, physically hurt you : never How often does anyone, including family, friends and others, insult or talk down to you: never How often does anyone, including family, friends and others, threaten you with harm: never How often does anyone, including family, friends and others, scream or curse at you: never service: No Exam Narrative: Exam Narrative: Pleasant. NAD. Does have nasal cannula in place. She is breathing easily. I do not appreciate any wheeze until I have her sit up and move about and then there is some of that upper expiratory trace wheeze and would associate this with her degree of exertion required. Lungs were otherwise clear. There is rep roducible discomfort to palpation over the upper flank area ribs. No rashes. She demonstrates discomfort with certain motions or repositioning in bed. Const: Vital Signs, click to edit/add: Vital Signs - 24 hr 01/03/24 23:17 01/04/24 00:48 Temperature 99.6 F 99.6 F Pulse Rate [Pulse Oximeter] 101 H 94 Respiratory Rate Blood Pressure [Ri ght Upper Arm] 141/88 H 135/74 Pulse Oximetry 94 94 Oxygen Delivery Me thod Nasal Cannula Nasal Cannula Oxygen Flow Rate 1 1 Documenting provider has reviewed patient's vital signs: yes Course Vital Signs Vital signs: Initial Vital Signs Temperature 99.6 F 01/03/24 23:17 Temperature Source Temporal Artery Scan 01/03/24 23:17 Pulse Rate 101 H 01/03/24 23:17 Respiratory Rate 24 01/03/24 23:17 Blood Pressure 141/88 H 01/03/24 23:17 Blood Pressure Mean 105 01/03/24 23:17 Blood Pressure Position Sitting 01/03/24 23:17 Pulse Oximetry 94 01/03/24 23:17 Oxygen Delivery Method Nasal Cannula 01/03/24 23:17 Oxygen Flow Rate 1 01/03/24 23:17 Vital Signs Temperature 99.6 F 01/03/24 23:17 Pulse Rate 101 H 01/03/24 23:17 Respiratory Rate 24 01/03/24 23:17 Blood Pressure 141/88 H 01/03/24 23:17 Pulse Oximetry 94 01/03/24 23:17 Oxygen Delivery Method Nasal Cannula 01/03/24 23:17 Oxygen Flow Rate 1 01/03/24 23:17 Temperature 99.6 F 01/04/24 00:48 Pulse Rate 94 01/04/24 00:48 Respiratory Rate 24 01/04/24 00:48 Blood Pressure 135/74 01/04/24 00:48 Pulse Oximetry 94 01/04/24 00:48 Oxygen Delivery Method Nasal Cannula 01/04/24 00:48 Oxygen Flow Rate 1 01/04/24 00:48 Medical Decision Making MDM Narrative Medical decision making narrative: I would screen for COVID and influenza. A pneumonia is also possibility but does not appear to have any worse respiratory symptoms than baseline. Actually appears quite well at this time. Likely that experienced also pseudo-seizure. I think deconditioning is playing a role in some of this discomfort that she is experiencing. Would probably benefit from OT or PT assessment. Could also give her some stretches to do but I think might need help getting through them. Will check chemistries also that might be contributing to cramping. Expect these will likely be normal. Dehydrated? See patient discharge plan for further discussion Medical Records Medical records reviewed: Yes I reviewed the patient's medical records Lab Data Lab results reviewed: Yes I reviewed the patient's lab results Labs: Lab Results 01/03/24 Range/Units 23:24 SARS-CoV-2 (PCR) Negative SARS-CoV-2 (Negative) Influenza Type A (PCR) Negative PCR FLU A (Negative) Influenza Type B (PCR) Negative PCR FLU B (Negative) RSV (PCR) Negative PCR RSV (Negative) Discharge Plan Discharge Clinical Impression: Muscle cramp, Physical deconditioning Patient Disposition: Home w/ Parent or Adult Condition: Stable Additional Instructions: It sounds as though you may have experienced 1 of those pseudoseizures again. Do try to stay well-hydrated. Helps with muscle cramps. I will call you if any of these labs are abnormal to discuss what to do. I have some handouts for you that might be helpful; you might be able to do some of the stretches. I would consider being assessed by occupational therapy or physical therapy as well; your primary can refer Prescriptions: No Action levetiracetam [Keppra] 750 mg tablet 750 mg PO BID potassium chloride 10 mEq tablet extended release 10 meq PO DAILY Rx Instructions: take 2 tablets daily levothyroxine 100 mcg tablet 100 mcg PO DAILY montelukast 10 mg tablet 10 mg PO HS mirabegron [Myrbetriq] 50 mg tablet extended release 24 hr 50 mg PO DAILY Patient Comments: albuterol sulfate 90 mcg/actuation HFA aerosol inhaler 2 puff INHALATION Q4H PRN cholecalciferol (vitamin D3) 50 mcg (2,000 unit) capsule 50 mcg PO DAILY paroxetine HCl 40 mg tablet 40 mg PO DAILY Patient Comments: furosemide 40 mg Tablet 40 mg PO DAILY Qty: 30 0RF albuterol sulfate 2.5 mg /3 mL (0.083 %) solution for nebulization 2.5 mg inhalation Q8H PRNQty: 1 0RF budesonide-formoterol [Symbicort] 160-4.5 mcg/actuation HFA aerosol inhaler 2 puff INHALATION BID Qty: 1 0RF Spiriva Respimat 2.5 mcg/actuation mist 2 puff inhalation DAILY Qty: 1 0RF omeprazole 20 mg capsule,delayed release(DR/EC) 40 mg PO DAILY Follow Up/Referrals: Geronimo Lamb MD [Primary Care Provider] - Stand Alone Forms: [facility] Info Instructions
[2024-01-04 00:12] LABS: PCR FLU A Negative PCR FLU A (Negative); PCR FLU B Negative PCR FLU B (Negative); PCR RSV Negative PCR RSV (Negative); SARS PCR* Negative SARS-CoV-2 (Negative)
[2024-01-04 00:48] VITALS: BP 135/74; PULSE 94; RESP 24; TEMP 37.6; O2SAT 94
[2024-01-04 00:57] VITALS: BP 135/74; PULSE 94; RESP 24; TEMP 37.6; O2SAT 94
[2024-01-04 05:28] LABS: Sodium* 137 mmol/L (135-149)
[2024-01-04 05:29] LABS: Anion Gap 4 mEq/L (7-15); Blood Urea Nitrogen* 12 mg/dL (5-24); Calcium* 9.2 mg/dL (8.4-10.6); Carbon Dioxide* 35 mmol/L (20-32); Chloride* 98 mmol/L (96-114); Creatinine* 0.7 mg/dL (0.5-1.5); Est. Creatinine Clearance* 165.39; Estimated Glomerular Filt Rate 108 ml/min; Glucose* 111 mg/dL (60-115); Magnesium* 1.8 mg/dL (1.5-2.6); Potassium* 3.8 mmol/L (3.6-5.1)
== END 2024-01-04 00:58 | disposition home or self-care (01) ==
PROVIDERS: Emergency Provider Family Medicine; PCP Family Medicine
DX: R25.2 Cramp and spasm (principal); R53.81 Other malaise
CPT/HCPCS: 36415; 80048; 83735; 85018; 87631; 94761; 99283; 99284

== ENCOUNTER 2024-01-04 00:47 | Outpatient (CLI) | payer OTHER, SELFPAY ==
--- OUTSIDE RECORDS SUMMARY | 2024-01-29 23:20 | XMS_ITS ---
Author Organization [facility] Address [address] [place] [address] Care Team Providers Care Sound Installation Worker Name Role Phone Unavailable Unavailable Unavailable Surgery Details Not on file Complications Check Surgery Details section. Procedure Estimated Blood Loss Check Surgery Details section. Procedure Findings Check Surgery Details section. Procedure Specimens Taken Check Surgery Details section.
--- OUTSIDE RECORDS SUMMARY | 2024-01-29 23:20 | XMS_ITS | Referral Summary ---
Author Organization [facility] Address [address] [place] [address] Care Team Providers Care Structural Engineering Drafting Officer Name Role Phone Elsewhere, Pcp Primary Care Provider Unavailabl e Source Comments Patient records contain information from all sites at [facility]. For routine questions regarding patient records, call [phone] during business hours, M-F 8:00 AM - 5:00 PM Central Time. Record requests for emergency care only can be directed to [phone] at any time.[facility] Allergies Active Allergy Reactions Criticality Noted [...] Unspecified 05/01/2016,02/06/2015 PPSV23 09/14/2013 Tdap 10/29/2010 influenza trivalent high dose (HD)(PF) 5 Social History Tobacco Use Types Packs/Day Years [...] Sex Assigned at Female 06/02/2018 2:11 PM CREATIVE RECRUITER Gender Identity Female 06/02/2018 2:11 PM CREATIVE RECRUITER Sexual Orientation Choose not to disclose 2018 2:11 PM CREATIVE RECRUITER Last Filed Vital Signs Vital Sign Reading [...] file Medical Devices Implanted Type Area Cloth Colorer Device Identifier Shelf Expiration Date Model / Serial / Lot Ear Implant- [id number] Implanted:11/24 (Quantity not on file) Ear Implant Ear Olympus Bernice Vega TORP Plasti-pore [id number] / / [id number] Description:[facility], [place], [place]. Ear implant-Vega TOPR Plasti-pore MRI Safe Procedures Procedure Name Priority Date/Time Associated Diagnosis Comments THYROID-STIMULATING HORMONE-SENSITIVE (S-TSH) Routine 10/27/2018 3:42 PM CDT Hypothyroidism Primary BASIC METABOLIC PANEL, S/P Routine 03/11/2018 1:58 PM CDT Dizziness Diplopia LIPID PANEL, S Routine 06/10/2016 10:40 AM CREATIVE RECRUITER from Last 3 Months or Most Recently Relevant to Health Maintenance Results * (ABNORMAL) S-TSH (Thyroid-Stimulating Hormone - Sensitive) (10/27/2018 3:42 PM CDT) TSH, Sensitive 10.7(H) 0.3 - 4.2 mIU/L 10/27/2018 5:20 PM CDT Comment: Biotin has been identified by the transcribing machine mechanic as a potential interfering substance. ??Higher concentrations of biotin may be found in multivitamins, hair/nail supplements, and workout supplements. ??If the result does not match clinical observations, repeat testing after patient refrains from the use of supplements for at least 12 hours. Blood (Blood, Venous) 10/27/2018 3:42 PM CDT 10/27/2018 3:43 PM CDT Deanne Tsang P.A.-C. LAB BLOOD ADD-O N [facility] [id number] * Basic Metabolic Panel (03/11/2018 1:58 PM CDT) Pathologist [facility] Potassium, S 4.0 3.6 - 5.2 mmol/L 03/11/2018 2:29 PM CDT [facility] Sodium, S 141 135 - 145 mmol/L 03/11/2018 2:29 PM CDT [facility] Chloride, S 101 98 - 107 mmol/L 03/11/2018 2:29 PM CDT [facility] Bicarbonate, S 27 22 - 29 mmol/L 03/11/2018 2:29 PM CDT [facility] Anion Gap 13 7 - 15 03/11/2018 2:29 PM CDT [facility] BUN (Blood Urea Nitrogen), S 12 6 - 21 mg/dL 03/11/2018 2:29 PM CDT [facility] Creatinine 0.62 0.59 - 1.04 mg/dL 03/11/2018 2:29 PM CDT [facility] eGFR-Non Black/ >90 >=60 mL/min/BSA 03/11/2018 2:29 PM CDT [facility] Comment: ----ADDITIONAL INFORMATION---- Estimated GFR calculated using the 2009 CKD_EPI creatinine equation. eGFR-Black/Afri can Sudanese >90 >=60 mL/min/BSA 03/11/2018 2:29 PM CDT [facility] Comment: ----ADDITIONAL INFORMATION---- Estimated GFR calculated using the 2009 CKD_EPI creatinine equation. Calcium, Total, S 9.4 8.6 - 10.0 mg/dL 03/11/2018 2:29 PM CDT [facility] Glucose, S 95 70 - 140 mg/dL 03/11/2018 2:29 PM CDT [facility] Blood (Blood, Venous) 03/11/2018 1:58 PM CDT 03/11/2018 1:58 PM CDT Deanne Tsang P.A.-C. LAB BLOOD ADD-O N Performing Organization Address City/State/[facility] Co de Phone Number [facility] [address] [place] [address], [facility] * (ABNORMAL) Lipid Panel (06/10/2016 10:40 AM CREATIVE RECRUITER) Cholesterol, Total 275(H) <=199 MGDL POWERCHART Comment: [...] for FH and FDB is available through [place] [employer]: FH/ADH Genetic Reflex Panel (test ADHP). Acquired (non-genetic) causes of markedly increased LDL cholesterol include cholestatic liver disease due to the presence of LpX. If a genetic form of hypercholesterolemia is suspected, family studies including biochemical testing for lipids (total cholesterol,triglycerides, LDL cholesterol and HDL cholesterol) are recommended. ??Please contact the laboratory at or the on-line test catalog at [employer] for information about how to order these tests or to speak with a genetic counselor. Further interpretation would require clinical information. Total Cholesterol/HDL Ratio 5 POWERCHART Blood 06/10/2016 10:4 0 AM CREATIVE RECRUITER Ana Chery M.D. LAB BLOOD ADD-O N POWERCHART from Last 3 Months or Most Recently Relevant to Health Maintenance Care Teams Structural Engineering Drafting Officer Relationship Specialty Start Date End Date Elsewhere, Pcp PCP - General Internal Medicine 12/04/18
--- OUTSIDE RECORDS SUMMARY | 2024-01-29 23:20 | XMS_ITS | Clinical Summary ---
Author Organization 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 0 5 Active cholecalciferol, Vitamin D3, 2,000 unit tablet Take 2,000 units by mouth. Active terbinafine 1% cream (LAMISIL) 1 % creamIndications: Intertrigo Apply topically to affected area(s) two times daily. 80 g 3 3 Active Diaper,Brief, Adult,DisposableI ndications:Urge urinary incontinence For home use. Size large. 60 Each 11 3 Active albuterol HFA (PRO-AIR; VENTOLIN; PROVENTIL) 90 mcg/actuation inhalerIndication s:Moderate persistent asthma, uncomplicated INHALE 1 TO 2 PUFFS BY MOUTH EVERY 4 HOURS NEEDED FOR SHORTNESS OF BREATH 1ST CHOICE 17 Each 3 3 Active CPAPIndications:O SA (obstructive sleep apnea) CPAP machine for home use at pressure 13cmw, full face mask x1/3month with a full face cushion x1/mo 1 Each 11 4 Active levETIRAcetam (KEPPRA) 750 mg tabletIndications :Seizure (HC) TAKE 1 TABLET (750 MG) BY MOUTH TWO TIMES DAILY. 180 Tablet 1 4 Active omeprazole (PRILOSEC) 20 mg Delayed-Release capsuleIndication s:Chronic GERD TAKE 2 CAPSULES (40 MG) BY MOUTH ONCE DAILY BEFORE A MEAL. 180 Capsule 2 4 Active montelukast (SINGULAIR) 10 mg tabletIndications :Allergy, sequela TAKE 1 TABLET BY MOUTH EVERYDAY AT BEDTIME 90 Tablet 2 4 Active levothyroxine (SYNTHROID) 100 mcg tabletIndications :Hypothyroidism (acquired) Take 1 Tablet (100 mcg) by mouth before breakfast. 90 Tablet 3 4 Active oxygen-air delivery systems (HOME OXYGEN)Indication s:Chronic respiratory failure with hypoxia (HC) Oxygen for home use. Liters per minute: 1 to 2 LPM per nasal cannula. Frequency of use: Continuous with portability.;. Length of need: 99 Months. Portable oxygen concentrator. 1 Each 4 Active tiotropium (SPIRIVA HANDIHALER) 18 mcg inhalation capsuleIndication s:COPD, severe (HC) Inhale 1 Capsule (18 mcg) by mouth once daily. Using a SPRIVA HANDIHALER fischer the capsule, then by mouth breathe in the powder. Inhale twice from the same capsule for full dose. 90 Capsule 3 4 Active Symbicort 160-4.5 mcg/actuation (160-4.5 mcg each actuation) inhalerIndication s:Severe persistent asthma, unspecified whether complicated Inhale 2 Puffs by mouth two times daily. 10.2 g 11 4 Active albuterol 0.083% (2.5 mg/3 mL) neb solutionIndicatio ns:Moderate persistent asthma, uncomplicated Inhale 3 mL (2.5 mg) via a nebulizer every 4 hours if needed for Shortness Of Breath or Wheezing. 150 mL 1 4 Active furosemide (LASIX) 40 mg tabletIndications :SOB (shortness of breath) Take 1 Tablet (40 mg) by mouth once daily in the morning. 90 Tablet 3 4 Active mirabegron EXTENDED-release (Myrbetriq) 50 mg tabletIndications :Urge urinary incontinence Take 1 Tablet (50 mg) by mouth once daily. 90 Tablet 3 4 Active PARoxetine (PAXIL) 40 mg tabletIndications :Anxiety and depression Take 1 Tablet (40 mg) by mouth once daily in the morning. 90 Tablet 3 4 Active potassium chloride (Klor-Con 10) 10 mEq extended-release tabletIndications :SOB (shortness of breath) Take 2 Tablets (20 mEq) by mouth once daily with a meal. 180 Tablet 3 4 Active tirzepatide, weight loss, (Zepbound) 2.5 mg/0.5 mL penIndications:Mo rbid exogenous obesity (HC) Inject 2.5 mg subcutaneous once weekly. 2 mL 4 Active tirzepatide, weight loss, (Zepbound) 5 mg/0.5 mL penIndications:Mo rbid exogenous obesity (HC) Inject 5 mg subcutaneous once weekly. 2 mL 4 Active tirzepatide, weight loss, (Zepbound) 7.5 mg/0.5 mL penIndications:Mo rbid exogenous obesity (HC) Inject 7.5 mg subcutaneous once weekly. 2 mL 4 Active tirzepatide, weight loss, (Zepbound) 10 mg/0.5 mL penIndications:Mo rbid exogenous obesity (HC) Inject 10 mg subcutaneous once weekly. 2 mL 4 Active tirzepatide, weight loss, (Zepbound) 12.5 mg/0.5 mL penIndications:Mo rbid exogenous obesity (HC) Inject 12.5 mg subcutaneous once weekly. 2 mL 4 Active tirzepatide, weight loss, (Zepbound) 15 mg/0.5 mL penIndications:Mo rbid exogenous obesity (HC) Inject 15 mg subcutaneous once weekly. 2 mL 4 Active Walker - 4 wheelsIndications :Unstable gait With breaks and seat. For home use. Length of need: 99. 1 Each 4 Active oxygen-air delivery systems (HOME OXYGEN)Indication s:Severe persistent asthma, unspecified whether complicated Oxygen for home use. Liters per minute: 1 per nasal cannula. Frequency of use: Continuous with portability.;. Length of need: 99 Months. 1 Each 4 Active CPAPIndications:O SA (obstructive sleep apnea) CPAP (E0601) machine for home use at pressure: 13 CM , Choice of mask (A7030 or A7034) w/full face cushion (A7031) x1/mo, nasal cushion (A7032) x2/mo, or nasal pillows (A7033) x 2/mo; Length of Need: 99 months; Frequency of use: Daily 1 Each 4 Active albuterol (PROVENTIL) 0.083 % neb solutionIndicatio ns:Moderate persistent asthma, uncomplicated Inhale 3 mL via a nebulizer every 6 hours if needed for Shortness Of Breath or Wheezing. 1 box 1 5 024 Discontinued(Re order (E-cancel not sent)) Symbicort 160-4.5 mcg/actuation (160-4.5 mcg each actuation) inhaler 1 024 Discontinued(Re order (E-cancel not sent)) medication order composerIndicatio ns:Nocturnal hypoxemia Oxygen is no longer needed at night- the order for oxygen is canceled 1 unit 3 024 Discontinued(*M ed complete/Regime n complete/Level of care change) tiotropium (SPIRIVA HANDIHALER) 18 mcg inhalation capsuleIndication s:Severe persistent asthma, unspecified whether complicated Inhale 1 Capsule (18 mcg) by mouth once daily. Using a SPRIVA HANDIHALER fischer the capsule, then by mouth breathe in the powder. Inhale twice from the same capsule for full dose. 90 Capsule 3 3 024 Discontinued(Re order (E-cancel not sent)) furosemide (LASIX) 40 mg tabletIndications :SOB (shortness of breath) Take 1 Tablet (40 mg) by mouth every morning. 90 Tablet 3 3 024 Discontinued(Re order (E-cancel not sent)) potassium chloride (Klor-Con 10) 10 mEq extended-release tabletIndications :SOB (shortness of breath) Take 2 Tablets (20 mEq) by mouth once daily with a meal. 180 Tablet 3 3 024 Discontinued(Re order (E-cancel not sent)) Myrbetriq 50 mg tabletIndications :Urge urinary incontinence TAKE 1 TABLET BY MOUTH EVERY DAY 90 Tablet 4 024 Discontinued PARoxetine (PAXIL) 40 mg tabletIndications :Anxiety and depression TAKE 1 TABLET BY MOUTH EVERY DAY IN THE MORNING 90 Tablet 4 024 Discontinued(Re order (E-cancel not sent)) Myrbetriq 50 mg tabletIndications :Urge urinary incontinence TAKE 1 TABLET BY MOUTH EVERY DAY 90 Tablet 4 024 Discontinued(Re order (E-cancel not sent)) Active Problems Problem Noted Date Diagnosed Date Urinary incontinence 11/13/2023 Heart failure with preserved ejection fraction, unspecified [...] depression Dizziness Overview: Eval by [facility] neurology 2018. Thought to be functional. Referred to psychiatry. Resolved Problems Problem Noted Date Diagnosed Date Resolved Date Hypothyroidism (acquired) 09/01/2023 Sensorineural hearing loss ( SNHL) of left [...] Encounters Date Type Department Care Team Description 01/23/2024 Telephone [facility] [address] [place] [address] Geronimo Lamb MD Prior Authorization (tirzepatide, weight loss, (Zepbound) 2.5 mg/0.5 mL pen EXCLUDED) 01/22/2024 1:50 PM CDT Orders Only [facility] [address] [place] [phone] Lab, Appv Lab 01/22/2024 12:45 PM CDT Office Visit [facility] [id number] [place] [address] [id number] Luis Santos, DO Consult (Lung Damage since COVID-19) 01/22/2024 Telephone [facility] [address] [facility] [address] [place] [address] Luis Santos, Testing (Needs PFT, esophagram, CT chest) 01/22/2024 Travel 01/20/2024 2:55 PM CDT Office Visit [facility] [address] [facility] [place] [address] Geronimo Lamb MD Follow Up 01/20/2024 Travel 01/03/2024 Refill [facility] [address] [facility] [place] [address] Geronimo Lamb MD Refill Request (Myrbetriq) 11/26/2023 9:30 AM CDT - 11/26/2023 11:59 PM CDT Hospital Encounter [facility] EMG/EEG/EP [address] [facility] [address] [place] [address] Dread Villavicencio MD [place], Scott P Seizure (HC) 11/26/2023 Travel 11/14/2023 Orders Only [facility] Scanner 1 scan: (1-Ord) [facility], CT ABDOMEN PELVIS W CON , 11/14/2023 11/13/2023 10:35 AM CDT Office Visit [facility] [address] [facility] [place] [address] Geronimo Lamb MD Results (Discuss lab results); ER Follow up ([facility], 11/11/2023, abdominal pain) 11/13/2023 Travel 11/11/2023 Telephone [facility] [address] [facility] [place] [address] Dread Villavicencio MD Results 11/05/2023 12:45 PM CDT Orders Only [facility] [address] [facility] [place] [address] Lab, [place] Lab 11/05/2023 11:40 AM CDT Office Visit [facility] [address] [facility] [place] [address] Dread Villavicencio MD Follow Up (Seizure, having more neurological symptoms, having a hard time finding words, hands and feet going numb but nothing else. When sleeping, not sure if having seizure but she gets paralyzed where she can only move her head to look around but nothing else. ) 11/05/2023 Travel from Last 3 Months Immunizations Name Administration Dates Next Due COVID-19 Vaccine Spikevax (M oderna 50mcg/0.5mL) 12YO+ 4431-1915 Formula PF 03/19/2023 COVID-19 vaccine (Pfizer-Bio NTech [...] Sign Reading Time Taken Comments Blood Pressure 126/70 01/22/2024 12:56 PM CDT Pulse 94 01/22/2024 12:56 PM CDT Temperature 36.7 ??C (98.1 ??F) 05/15/2023 1:42 PM CS T Respiratory Rate 18 01/22/2024 12:56 PM CDT Oxygen Saturation 90% 01/22/2024 1:06 PM CDT Inhaled Oxygen Concentration - - Weight 104.3 kg (230 lb) 01/22/2024 12:56 PM CDT Height 142.2 cm (4' 8) 01/22/2024 12:56 PM CDT Body Mass Index 51.56 01/22/2024 12:56 PM CDT Plan of Treatment Upcoming Encounters Date Type Department Care Team (Late st Contact Info) Description 02/03/2024 3:00 PM CDT Ancillary Procedure [facility] [address] [place] [address] 02/05/2024 2:30 PM CDT Office Visit [facility] [address] [place] [address] Paolo Limon MD [address] [place] [address] 03/15/2024 9:00 AM CDT Orders Only [place] [address] [place] [address] Lab, [place] 03/19/2024 1:15 PM CDT Office Visit [facility] [address] [place] [address] Geronimo Lamb MD [address] [place] [address] Health Maintenance Due Date Last Done Comments Pap test for age 21-65 04/16/2014 04/16/2011 (Declin ed) Tetanus booster 10/29/2020 10/29/2010 Colonoscopy through age 75 2022 Mammogram for age 45-75 2022 02/24/2019, 02/16 Influenza for age 9-49 01/25/2024 , 05/01/2022, 03/09/2018, Additional history exists Depression screening for age 12+ 10/13/2024 10/14/2023, 10/14/2023, 10/14/2023, Additional history exists BMI (ht and wt on same day) for age 18+ 01/21/2025 01/22/2024, 07/24/2023, 02/10/2023, Additional history exists Lipids for age 45-75 01/19/2029 01/20/2024, 03/19/2023, 08/29/2021, Additional history exists Tdap Completed 10/29/2010 Hepatitis C screening for ag e 18-79 Completed 12/05/2021 HIV for age 15-65 Completed 05/01/2022 Pneumococcal series for age 6-64 Completed 01/15/20, 09/14/2013 COVID-19 vaccine series Completed 03/19/20 23, 05/01/2022, 08/29/2021, Additional history exists Procedures Procedure Name Priority Date/Time Associated Diagnosis Comments IMMUNOGLOBULIN E,IGE Routine 01/22/2024 2:02 PM CDT Severe persistent asthma, unspecified whether complicated RESPIRATORY DISEASE ALLERGY PROFILE Routine 01/22/2024 2:02 PM CDT Severe persistent asthma, unspecified whether complicated QFT MITOGEN PERFORMABLE Routine 01/20/2024 4:00 PM CDT Screening-pulmonary TB QFT TB2 PERFORMABLE Routine 01/20/2024 4 :00 PM CDT Screening-pulmonary TB QFT TB1 PERFORMABLE Routine 01/20/2024 4 :00 PM CDT Screening-pulmonary TB QUANTIFERON TB GOLD PLUS Routine 01/20/2024 4:00 PM CDT Screening-pulmonary TB QUANTIFERON TB GOLD PLUS Routine 01/20/2024 4:00 PM CDT Screening-pulmonary TB TSH WITH REFLEX Routine 01/20/2024 4:00 PM CDT Hypothyroidism (acquired) BASIC METABOLIC PANEL Routine 01/20/2024 4:00 PM CDT Prediabetes LIPID PANEL W REFLEX MEASURED LDL Routine 01/20/2024 4:00 PM CDT Hyperlipidemia, unspecified hyperlipidemia type HEMOGLOBIN A1C SCREENING Routine 01/20/2024 4:00 PM CDT Prediabetes EEG Routine 11/26/2023 9:30 AM CDT Seizure (HC) SCAN-CT INTERPRETATION 12:00 AM CDT LEVETIRACETAM (KEPPRA) Routine 12:29 PM CDT Seizure (HC) TSH WITH REFLEX Routine 11/05/2023 12:29 PM CDT Hypothyroidism (acquired) ANTI HIV 1/2 Routine 05/01/2022 4:36 PM SWATCH MAKER Encounter for screening for HIV ANTI HCV Routine 12/05/2021 9:30 AM CDT Need for hepatitis C screening test SCAN-MAMMOGRAPHY REPORT 02/24/2019 12:00 AM CDT from Last 3 Months or Most Recently Relevant to Health Maintenance Results * RESPIRATORY DISEASE ALLERGY PROFILE (01/22/2024 2:02 PM CDT) Alternaria Alternata IGE <0.10 <=0.35 kU/L 01/29/2024 2:13 PM CDT [facility] Aspergillus Fumigatus (M3) IGE <0.10 <=0.35 kU/L 01/29/2024 2:13 PM CDT [facility] Birch (T3) IgE <0.10 <=0.35 kU/L 01/29/2024 2:13 PM CDT [facility] Cat Dander (E1) IgE <0.10 <=0.35 kU/L 01/29/2024 2:13 PM CDT [facility] Cladosporium herbarum (M2) IgE <0.10 <=0.35 kU/L 01/29/2024 2:13 PM CDT [facility] Cockroach (I6) IgE <0.10 <=0.35 kU/L 01/29/2024 2:13 PM CDT [facility] Common Ragweed (W1) IgE <0.10 <=0.35 kU/L 01/29/2024 2:13 PM CDT [facility] D. Farinae (D2) IgE <0.10 <=0.35 kU/L 01/29/2024 2:13 PM CDT [facility] D. Pteronyssinus (D1) IgE <0.10 <=0.35 kU/L 01/29/2024 2:13 PM CDT [facility] Dog Dander (E5) IgE <0.10 <=0.35 kU/L 01/29/2024 2:13 PM CDT [facility] Elm (T8) IgE <0.10 <=0.35 kU/L 01/29/2024 2:13 PM CDT [facility] IMMUNOGLOBULIN E (IGE) 59.2 22.0 - 107.0 kU/L 01/29/2024 2:13 PM CDT [facility] MAPLE (BOX ELDER) (T1) IGE <0.10 <=0.35 kU/L 01/29/2024 2:13 PM CDT [facility] ORCHARD GRASS (G3) IGE <0.10 <=0.35 kU/L 01/29/2024 2:13 PM CDT [facility] RED TOP (BENT) GRASS (G9) IGE <0.10 <=0.35 kU/L 01/29/2024 2:13 PM CDT [facility] ROUGH VALENTINE ELDER (W16) IGE <0.10 <=0.35 kU/L 01/29/2024 2:13 PM CDT [facility] [place] (T7) IGE <0.10 <=0.35 kU/L 01/29/2024 2:13 PM CDT [facility] Blood BLOOD SPECIMEN / Unknown Venipuncture / Unknown 01/22/2024 2:02 PM CDT 01/22/2024 2:03 PM CDT Luis Santos DO SEND OUTS Performing Organization Address City/[facility]/ZIP Co de Phone Number [facility] [address] [place] [address], [place] * IMMUNOGLOBULIN E,IGE (01/22/2024 2:02 PM CDT) IMMUNOGLOBULIN E (IGE) 55.3 22.0 - 107.0 kU/L 01/27/2024 1:59 PM CDT [facility] Blood BLOOD SPECIMEN / Unknown Venipuncture / Unknown 01/22/2024 2:02 PM CDT 01/22/2024 2:03 PM CDT Luis Santos DO CHEMISTRY Performing Organization Address City/[facility]/ZIP Co de Phone Number [facility] [address] [place] [address], [place] * QFT MITOGEN PERFORMABLE (01/20/2024 4:00 PM CDT) MITOGEN 4.85 IU/mL 01/22/2024 12:48 PM CDT [facility] Blood BLOOD SPECIMEN / Unknown Venipuncture / Unknown 01/20/2024 4:00 PM CDT 01/20/2024 4:00 PM CDT Geronimo Lamb MD CHEMISTRY Performing Organization Address City/[facility]/ZIP Co de Phone Number [facility] [address] [address], [place] * QFT TB2 PERFORMABLE (01/20/2024 4:00 PM CDT) TB2 0.01 IU/mL 01/22/2024 10:03 AM CDT [facility] Blood BLOOD SPECIMEN / Unknown Venipuncture / Unknown 01/20/2024 4:00 PM CDT 01/20/2024 4:00 PM CDT Geronimo Lamb MD CHEMISTRY Performing Organization Address [facility] Co de Phone Number [facility] [address] [address], [place] * QFT TB1 PERFORMABLE (01/20/2024 4:00 PM CDT) TB1 0.01 IU/mL 01/22/2024 10:04 AM CDT [facility] Blood BLOOD SPECIMEN / Unknown Venipuncture / Unknown 01/20/2024 4:00 PM CDT 01/20/2024 4:00 PM CDT Geronimo Lamb MD CHEMISTRY Performing Organization Address City/[facility]/ZIP Co de Phone Number [facility] [address] [address], [place] * QUANTIFERON TB GOLD PLUS (01/20/2024 4:00 PM CDT) QFTP NIL 0.00 01/22/2024 2:20 PM CDT [facility] TB1 0.01 IU/mL 01/22/2024 2:20 PM CDT [facility] TB2 0.01 IU/mL 01/22/2024 2:20 PM CDT [facility] MITOGEN 4.85 IU/mL 01/22/2024 2:20 PM CDT [facility] QFTP TB AG1 - NIL 0.01 024 2:20 PM CDT [facility] TB1-NIL % OF NIL 01/22/20 2:20 PM CDT [facility] Comment:Unable to calculate QFTP TB AG2 - NIL 0.01 024 2:20 PM CDT [facility] TB2-NIL % OF NIL 01/22/20 24 2:20 PM CDT [facility] Comment:Unable to calculate QFTP MITOGEN - NIL 4.85 2023 2:20 PM CDT [facility] QFTP QUANTIFERON INTERPRETATION Negative Negative 01/22/2024 2:20 PM CDT [facility] Blood BLOOD SPECIMEN / Unknown Venipuncture / Unknown 01/20/2024 4:00 PM CDT 01/20/2024 4:00 PM CDT Narrative [facility] - 01/22/2024 2:20 PM CDT M. tuberculosis infection not likely, but cannot be excluded in cases of immunosuppression. CAUTION: The performance of QuantiFERON-TB Gold Plus has not been evaluated in specimens from: - Individuals with impaired or altered immune factors (HIV infections, transplant patients, those receieving immunosuppressive drugs such as corticosteroids) and those with other clinical conditions (e.g., diabetes, hematological disorders). - Individuals younger than 17 years old. ??Refer to CDC website for testing recommendations in children 6-17 years old. - women Geronimo Lamb MD CHEMISTRY [facility] [address] [place] [address], * HEMOGLOBIN A1C SCREENING (01/20/2024 4:00 PM CDT) HEMOGLOBIN A1C SCREENING 6.1 <=6.4 % 01/21/2024 9:15 AM CDT [facility] Blood BLOOD SPECIMEN / Unknown Venipuncture / Unknown 01/20/2024 4:00 PM CDT 01/20/2024 4:00 PM CDT Narrative [facility] - 01/21/2024 9:15 AM CDT ? (<5.7%) ?Normal ? (5.7% to 6.4%) ? Indicates prediabetes ? (>=6.5%) ? Confirms diabetes Falsely low levels may be seen with: Recent Transfusion, Recent Significant Blood Loss, Hemolytic Diseases, or Falsely elevated levels may be seen with: Untreated Anemias, Splenectomy Geronimo Lamb MD CHEMISTRY Performing Organization Address [facility] de Phone Number [facility] [address] [place] [address], * TSH WITH REFLEX (01/20/2024 4:00 PM CDT) Only the most recent of2 resultswithin the time period is included. TSH 0.64 0.27 - 4.20 uIU/mL 01/21/2024 1:44 PM CDT [facility] Blood BLOOD SPECIMEN / Unknown Venipuncture / Unknown 01/20/2024 4:00 PM CDT 01/20/2024 4:00 PM CDT Narrative [facility] - 01/21/2024 1:44 PM CDT In Adults, TSH values between 5.00 and 10.00 uIU/ml do not necessarily indicate the presence of Hypothyroidism. Correlation with clinical findings such as presence of goiter and/or Thyroperoxidase (TPO) Antibody may be helpful. For more information please refer to SIVAN 2004; 291: 228-238. Geronimo Lamb MD CHEMISTRY Performing Organization Address [facility] de Phone Number [facility] [address] [place] [address], * (ABNORMAL) LIPID PANEL W REFLEX MEASURED LDL (01/20/2024 4:00 PM CDT) CHOLESTEROL,TOTAL 261(H) 100 - 199 mg/dL 01/21/2024 1:44 PM CDT [facility] Comment: Cholesterol, Total Reference Ranges Desirable <200 mg/dL Borderline 200-239 mg/dL High >=240 mg/dL TRIGLYCERIDES 252(H) <150 mg/dL 01/21/2024 1:44 PM CDT [facility] HDL CHOLESTEROL 50 >40 mg/dL 1:44 PM CDT [facility] NON-HDL CHOLESTEROL 211(H) <145 mg/dl 01/21/2024 1:44 PM CDT [facility] CHOL/HDL RATIO 5.22(H) <4.50 01/21/2024 1:44 PM CDT [facility] LDL CHOLESTEROL 161(H) <=130 mg/dL 01/21/2024 1:44 PM CDT [facility] VLDL CHOLESTEROL 50(H) <=30 mg/dL 01/21/2024 1:44 PM CDT [facility] PROVIDER ORDERED STATUS RANDOM 01/21/2024 1:44 PM CDT [facility] Blood BLOOD SPECIMEN / Unknown Venipuncture / Unknown 01/20/2024 4:00 PM CDT 01/20/2024 4:00 PM CDT Geronimo Lamb MD CHEMISTRY [facility] [address] [place] [id number], * BASIC METABOLIC PANEL (01/20/2024 4:00 PM CDT) SODIUM 139 136 - 145 mmol/L 01/21/2024 1:44 PM CDT [facility] POTASSIUM 4.0 3.5 - 5.1 mmol/L 01/21/2024 1:44 PM CDT [facility] CHLORIDE 100 98 - 107 mmol/L 01/21/2024 1:44 PM CDT [facility] CO2,TOTAL 28 22 - 29 mmol/L 01/21/2024 1:44 PM CDT [facility] ANION GAP 11 5 - 18 01/21/2024 1:44 PM CDT [facility] GLUCOSE 98 70 - 99 mg/dL 01/21/2024 1:44 PM CDT [facility] CALCIUM 9.2 8.6 - 10.0 mg/dL 01/21/2024 1:44 PM CDT [facility] BUN 12 6 - 20 mg/dL 01/21/2024 1:44 PM CDT [facility] CREATININE 0.79 0.50 - 0.90 mg/dL 01/21/2024 1:44 PM CDT [facility] BUN/CREAT RATIO 15 10 - 20 1:44 PM CDT [facility] eGFR >90 >90 mL/min/1.7 3m2 01/21/2024 1:44 PM CDT [facility] Comment:As of 2021, eG FR is calculated by the CKD-EPI creatinine equation without race adjustment. ??eGFR can be influenced by muscle mass, exercise, and diet. ??The reported eGFR is an estimation only and is only applicable if the renal function is stable. Blood BLOOD SPECIMEN / Unknown Venipuncture / Unknown 01/20/2024 4:00 PM CDT 01/20/2024 4:00 PM CDT Geronimo Lamb MD CHEMISTRY [facility] [address] [place] [address], * EEG (11/26/2023 9:30 AM CDT) Narrative [...] help, Dr Adi Heath does this at [place]. Emerson Mcmahon MD, FAAN, PATRICIA Epileptologist, President - [facility] [place]. Dread Villavicencio MD NEUROLOGY ORD * SCAN-CT INTERPRETATION (11/14/2023 12:00 AM CDT) Anatomical Region Laterality Modality Other Scanner OTHER * LEVETIRACETAM (KEPPRA) (11/05/2023 12:29 PM CDT) LEVETIRACETAM (KEPPRA) 19.1 6.0 - 46.0 ug/mL 11/05/2023 11:58 PM CDT [facility] Blood BLOOD SPECIMEN / Unknown Venipuncture / Unknown 11/05/2023 12:29 PM CDT 11/05/2023 12:30 PM CDT Narrative [facility] - 11/05/2023 11:58 PM CDT Reference Range is based on Trough Steady State in patients receiving recommended daily dose. ??The relationship between serum concentrations and toxicity is not known. Bivaracetam (Briviact??) interferes with measurements of levetiracetam (Keppra??) in the [facility] Levetiracetam Assay Dread Villavicencio MD SEND OUTS Performing Organization Address City/State/[facility] Co de Phone Number [facility] [address] [place] [address], [place] * ANTI HIV 1/2 (05/01/2022 4:36 PM SWATCH MAKER) HIV-1/HIV-2 ANTIBODY Non-Reacti ve Non-Reacti ve 05/04/2022 9:59 PM SWATCH MAKER [facility] Comment:HIV-1 p24 and HIV-1/ HIV-2 Ab not detected. Blood BLOOD SPECIMEN / Unknown Butterfly / Unknown 05/01/2022 4:36 PM SWATCH MAKER 05/01/2022 4:41 PM SWATCH MAKER Geronimo Lamb MD SEND OUTS Performing Organization Address [facility] Co de Phone Number [facility] [address] [place] [address], [place] * ANTI HCV (12/05/2021 9:30 AM CDT) Pathologist [facility] HEPATITIS C ANTIBODY Non-React shikha Non-React shikha 12/05/2021 9:16 PM CDT [facility] Comment:Antibodies to HCV no t detected; does not exclude the possibility of exposure to HCV. Blood BLOOD SPECIMEN / Unknown Venipuncture / Unknown 12/05/2021 9:30 AM CDT 12/05/2021 9:33 AM CDT Geronimo Lamb MD SEND OUTS Performing Organization Address City/[facility] Co de Phone Number [facility] [address] [place] [address], [place] * SCAN-MAMMOGRAPHY REPORT (02/24/2019 12:00 AM CDT) Anatomical Region Laterality Modality Other Scanner OTHER from Last 3 Months or Most Recently Relevant to Health Maintenance Care Teams Sales Architect Relationship Specialty Start Date End Date Geronimo Lamb MD [address] [place] [address] PCP - General Family Practice 04/23/21 Paolo Limon MD Sleep Medicine 10/28/11 Talon Durham MD Neurology Neurology 11/26/11 Laura Gardner PsyD, [facility] Psychology 09/14/13 [place] [address] [place] [address] Pulmonology Pulmonary Medicine 01/22/24
--- OUTSIDE RECORDS SUMMARY | 2024-01-29 23:20 | XMS_ITS | Clinical Summary ---
Author Organization [facility] Address [address] [place] [address] Care Team Providers Care Grounds Maintenance Supervisor Name Role Phone Elsewhere, Pcp Primary Care Provider Unavailabl e Source Comments Patient records contain information from all sites at [facility]. For routine questions regarding patient records, call [phone] during business hours, M-F 8:00 AM - 5:00 PM Central Time. Record requests for emergency care only can be directed to [phone] at any time.[facility] Allergies Active Allergy Reactions Criticality Noted Date [...] 10/29/2010 influenza trivalent high dose (HD)(PF) 5 Family History * Patient is adopted Medical [...] Sex Assigned at Female 06/02/2018 2:11 PM POLLUTION CONTROL TECHNICIAN Gender Identity Female 06/02/2018 2:11 PM POLLUTION CONTROL TECHNICIAN Sexual Orientation Choose not to disclose 2018 2:11 PM POLLUTION CONTROL TECHNICIAN Last Filed Vital Signs Vital Sign [...] history exists Medical Devices Implanted Type Area Fruit Dumper Device Identifier Shelf Expiration Date Model / Serial / Lot Ear Implant- [id number] Implanted:11/24 (Quantity not on file) Ear Implant Ear Olympus Bernice Vega TORP Plasti-pore [id number] / / [id number] Description:[facility], [place], [place]. Ear implant-Vega TOPR Plasti-pore MRI Safe Procedures Procedure Name Priority Date/Time Associated Diagnosis Comments THYROID-STIMULATING HORMONE-SENSITIVE (S-TSH) Routine 10/27/2018 3:42 PM CDT Hypothyroidism Primary BASIC METABOLIC PANEL, S/P Routine 03/11/2018 1:58 PM CDT Dizziness Diplopia LIPID PANEL, S Routine 06/10/2016 10:40 AM POLLUTION CONTROL TECHNICIAN from Last 3 Months or Most Recently Relevant to Health Maintenance Results * (ABNORMAL) S-TSH (Thyroid-Stimulating Hormone - Sensitive) (10/27/2018 3:42 PM CDT) TSH, Sensitive 10.7(H) 0.3 - 4.2 mIU/L 10/27/2018 5:20 PM CDT Comment: Biotin has been identified by the range master as a potential interfering substance. ??Higher concentrations of biotin may be found in multivitamins, hair/nail supplements, and workout supplements. ??If the result does not match clinical observations, repeat testing after patient refrains from the use of supplements for at least 12 hours. Blood (Blood, Venous) 10/27/2018 3:42 PM CDT 10/27/2018 3:43 PM CDT Deanne Tsang P.A.-C. LAB BLOOD ADD-O N Performing Organization Address City/State/[facility] Co de Phone Number [facility] [address] * Basic Metabolic Panel (03/11/2018 1:58 PM CDT) Pathologist [facility] Potassium, S 4.0 3.6 - 5.2 mmol/L 03/11/2018 2:29 PM CDT [facility] Sodium, S 141 135 - 145 mmol/L 03/11/2018 2:29 PM CDT [facility] Chloride, S 101 98 - 107 mmol/L 03/11/2018 2:29 PM CDT [facility] Bicarbonate, S 27 22 - 29 mmol/L 03/11/2018 2:29 PM CDT [facility] Anion Gap 13 7 - 15 03/11/2018 2:29 PM CDT [facility] BUN (Blood Urea Nitrogen), S 12 6 - 21 mg/dL 03/11/2018 2:29 PM CDT [facility] Creatinine 0.62 0.59 - 1.04 mg/dL 03/11/2018 2:29 PM CDT [facility] eGFR-Non Black/ >90 >=60 mL/min/BSA 03/11/2018 2:29 PM CDT [facility] Comment: ----ADDITIONAL INFORMATION---- Estimated GFR calculated using the 2009 CKD_EPI creatinine equation. eGFR-Black/Afri can Rw[place]an >90 >=60 mL/min/BSA 03/11/2018 2:29 PM CDT [facility] Comment: ----ADDITIONAL INFORMATION---- Estimated GFR calculated using the 2009 CKD_EPI creatinine equation. Calcium, Total, S 9.4 8.6 - 10.0 mg/dL 03/11/2018 2:29 PM CDT [facility] Glucose, S 95 70 - 140 mg/dL 03/11/2018 2:29 PM CDT [facility] Blood (Blood, Venous) 03/11/2018 1:58 PM CDT 03/11/2018 1:58 PM CDT Deanne Tsang P.A.-C. LAB BLOOD ADD-O N Performing Organization Address City/State/[facility] Co de Phone Number [facility] [address] * (ABNORMAL) Lipid Panel (06/10/2016 10:40 AM POLLUTION CONTROL TECHNICIAN) Cholesterol, Total 275(H) <=199 MGDL POWERCHART Comment: [...] for FH and FDB is available through [facility] [employer]: FH/ADH Genetic Reflex Panel (test ADHP). Acquired (non-genetic) causes of markedly increased LDL cholesterol include cholestatic liver disease due to the presence of LpX. If a genetic form of hypercholesterolemia is suspected, family studies including biochemical testing for lipids (total cholesterol,triglycerides, LDL cholesterol and HDL cholesterol) are recommended. ??Please contact the laboratory at or the on-line test catalog at [employer] [facility] for information about how to order these tests or to speak with a genetic counselor. Further interpretation would require clinical information. Total Cholesterol/HDL Ratio 5 POWERCHART Blood 06/10/2016 10:4 0 AM POLLUTION CONTROL TECHNICIAN Ana Chery M.D. LAB BLOOD ADD-O N POWERCHART from Last 3 Months or Most Recently Relevant to Health Maintenance Care Teams Grounds Maintenance Supervisor Relationship Specialty Start Date End Date Elsewhere, Pcp PCP - General Internal Medicine 12/04/18
== END 2024-01-04 00:48 | disposition home or self-care (01) ==
LOC: AMB 01-29 23:18
PROVIDERS: PCP Family Medicine; Visit Provider Family Medicine
DX: R53.1 Weakness (principal)
CPT/HCPCS: A0425; A0428

== ENCOUNTER 2024-02-03 04:41 | Outpatient (CLI) | payer MEDICAID, SELFPAY ==
--- OUTSIDE RECORDS SUMMARY | 2024-02-06 06:14 | XMS_ITS | Clinical Summary ---
Author Organization [facility] Address [address] [place] [address] Care Team Providers Care Fleet Sales Manager Name Role Phone Elsewhere, Pcp Primary Care Provider Unavailabl e Source Comments Patient records contain information from all sites at [facility]. For routine questions regarding patient records, call [phone] during business hours, M-F 8:00 AM - 5:00 PM Central Time. Record requests for emergency care only can be directed to [phone] at any time.[facility] Allergies Active Allergy Reactions Criticality Noted Date [...] Assigned at Female 06/02/2018 2:11 PM STAFF AUDITOR Gender Identity Female 06/02/2018 2:11 PM STAFF AUDITOR Sexual Orientation Choose not to disclose 2018 2:11 PM STAFF AUDITOR Last Filed Vital Signs Vital Sign Reading [...] history exists Medical Devices Implanted Type Area Water Pumping Station Engineer Device Identifier Shelf Expiration Date Model / Serial / Lot Ear Implant- [id number] Implanted:11/24 (Quantity not on file) Ear Implant Ear Olympus Bernice Vega TORP Plasti-pore [id number] / / [id number] Description:[facility], [place], [place]. Ear implant-Vega TOPR Plasti-pore MRI Safe Procedures Procedure Name Priority Date/Time Associated Diagnosis Comments THYROID-STIMULATING HORMONE-SENSITIVE (S-TSH) Routine 10/27/2018 3:42 PM CDT Hypothyroidism Primary BASIC METABOLIC PANEL, S/P Routine 03/11/2018 1:58 PM CDT Dizziness Diplopia LIPID PANEL, S Routine 06/10/2016 10:40 AM STAFF AUDITOR from Last 3 Months or Most Recently Relevant to Health Maintenance Results * (ABNORMAL) S-TSH (Thyroid-Stimulating Hormone - Sensitive) (10/27/2018 3:42 PM CDT) TSH, Sensitive 10.7(H) 0.3 - 4.2 mIU/L 10/27/2018 5:20 PM CDT Comment: Biotin has been identified by the bilingual middle school teacher as a potential interfering substance. ??Higher concentrations of biotin may be found in multivitamins, hair/nail supplements, and workout supplements. ??If the result does not match clinical observations, repeat testing after patient refrains from the use of supplements for at least 12 hours. Blood (Blood, Venous) 10/27/2018 3:42 PM CDT 10/27/2018 3:43 PM CDT Deanne Tsang P.A.-C. LAB BLOOD ADD-O N Performing Organization Address City/State/[facility] Co de Phone Number [facility] [id number] * Basic Metabolic Panel (03/11/2018 1:58 PM CDT) Pathologist [facility] Potassium, S 4.0 3.6 - 5.2 mmol/L 03/11/2018 2:29 PM CDT [facility] Sodium, S 141 135 - 145 mmol/L 03/11/2018 2:29 PM CDT [facility] Chloride, S 101 98 - 107 mmol/L 03/11/2018 2:29 PM CDT [facility] Bicarbonate, S 27 22 - 29 mmol/L 03/11/2018 2:29 PM CDT [facility] Anion Gap 13 7 - 15 03/11/2018 2:29 PM CDT [facility] BUN (Blood Urea Nitrogen), S 12 6 - 21 mg/dL 03/11/2018 2:29 PM CDT [facility] Creatinine 0.62 0.59 - 1.04 mg/dL 03/11/2018 2:29 PM CDT [facility] eGFR-Non Black/ >90 >=60 mL/min/BSA 03/11/2018 2:29 PM CDT [facility] Comment: ----ADDITIONAL INFORMATION---- Estimated GFR calculated using the 2009 CKD_EPI creatinine equation. eGFR-Black/Afri can Ecuadorean >90 >=60 mL/min/BSA 03/11/2018 2:29 PM CDT [facility] Comment: ----ADDITIONAL INFORMATION---- Estimated GFR calculated using the 2009 CKD_EPI creatinine equation. Calcium, Total, S 9.4 8.6 - 10.0 mg/dL 03/11/2018 2:29 PM CDT [facility] Glucose, S 95 70 - 140 mg/dL 03/11/2018 2:29 PM CDT [facility] Blood (Blood, Venous) 03/11/2018 1:58 PM CDT 03/11/2018 1:58 PM CDT Deanne Tsang P.A.-C. LAB BLOOD ADD-O N Performing Organization Address City/State/[facility] Co de Phone Number [facility] [address] * (ABNORMAL) Lipid Panel (06/10/2016 10:40 AM STAFF AUDITOR) Cholesterol, Total 275(H) <=199 MGDL POWERCHART Comment: [...] for FH and FDB is available through [facility] [employer]: FH/ADH Genetic Reflex Panel (test ADHP). Acquired (non-genetic) causes of markedly increased LDL cholesterol include cholestatic liver disease due to the presence of LpX. If a genetic form of hypercholesterolemia is suspected, family studies including biochemical testing for lipids (total cholesterol,triglycerides, LDL cholesterol and HDL cholesterol) are recommended. ??Please contact the laboratory at or the on-line test catalog at [employer] for information about how to order these tests or to speak with a genetic counselor. Further interpretation would require clinical information. Total Cholesterol/HDL Ratio 5 POWERCHART Blood 06/10/2016 10:4 0 AM STAFF AUDITOR Ana Chery M.D. LAB BLOOD ADD-O N POWERCHART from Last 3 Months or Most Recently Relevant to Health Maintenance Care Teams Fleet Sales Manager Relationship Specialty Start Date End Date Elsewhere, Pcp PCP - General Internal Medicine 12/04/18
--- OUTSIDE RECORDS SUMMARY | 2024-02-06 06:14 | XMS_ITS | Clinical Summary ---
Author Organization [facility] Address [place], [place] [address] Care Team Providers Care Electrician Marine Name Role Phone Paolo Limon MD Unavailable Talon Durham MD Unavailable [phone] Laura Gardner PsyD, Unavailable [phone] Geronimo Lamb MD Primary Care Provider Luis Santos DO Unavailable [phone] Allergies Active Allergy Reactions Criticality Noted Date [...] Dispensed Refills Start Date End Date Status [facility], medication neighborhood planner with alarm 1 unit 0 04/22/2014 Active diphenhydrAMINE (BENADRYL) 25 mg capsule Take 1 capsule by mouth each time if needed. 0 12/15/2014 Active cholecalciferol, Vitamin D3, 2,000 unit tablet Take 2,000 units by mouth. Active terbinafine 1% cream (LAMISIL) 1 % creamIndications:I ntertrigo Apply topically to affected area(s) two times daily. 80 g 3 01/14/2023 Active Diaper,Brief, Adult,DisposableIn dications:Urge urinary incontinence For home use. Size large. 60 Each 11 01/15/2023 Active albuterol HFA (PRO-AIR; VENTOLIN; PROVENTIL) 90 [...] TIMES DAILY. 180 Tablet 1 09/25/2023 Active omeprazole (PRILOSEC) 20 mg Delayed-Release capsuleIndications :Chronic GERD TAKE 2 CAPSULES (40 MG) BY MOUTH ONCE DAILY BEFORE A MEAL. 180 Capsule 2 10/07/2023 Active montelukast (SINGULAIR) 10 mg tabletIndications: Allergy, sequela TAKE 1 TABLET BY MOUTH EVERYDAY AT BEDTIME 90 Tablet 2 10/07/2023 Active levothyroxine (SYNTHROID) 100 mcg tabletIndications: Hypothyroidism (acquired) Take 1 Tablet (100 mcg) by mouth before breakfast. 90 Tablet 3 11/13/2023 Active oxygen-air delivery systems (HOME OXYGEN)Indications :Chronic respiratory failure with hypoxia (HC) Oxygen for home use. Liters per minute: 1 to 2 LPM per nasal cannula. Frequency of use: Continuous with portability.;. Length of need: 99 Months. Portable oxygen concentrator. 1 Each 01/20/2024 Active tiotropium (SPIRIVA HANDIHALER) 18 mcg inhalation capsuleIndications :COPD, severe (HC) Inhale 1 Capsule (18 mcg) by mouth once daily. Using a SPRIVA HANDIHALER fischer the capsule, then by mouth breathe in the powder. Inhale twice from the same capsule for full dose. 90 Capsule 3 01/20/2024 Active Symbicort 160-4.5 mcg/actuation (160-4.5 mcg each actuation) inhalerIndications :Severe persistent asthma, unspecified whether complicated Inhale 2 Puffs by mouth two times daily. 10.2 g 11 01/20/2024 Active albuterol 0.083% (2.5 mg/3 mL) neb solutionIndication s:Moderate persistent asthma, uncomplicated Inhale 3 mL (2.5 mg) via a nebulizer every 4 hours if needed for Shortness Of Breath or Wheezing. 150 mL 1 01/20/2024 Active furosemide (LASIX) 40 mg tabletIndications: SOB (shortness of breath) Take 1 Tablet (40 mg) by mouth once daily in the morning. 90 Tablet 3 01/20/2024 Active mirabegron EXTENDED-release (Myrbetriq) 50 mg tabletIndications: Urge urinary incontinence Take 1 Tablet (50 mg) by mouth once daily. 90 Tablet 3 01/20/2024 Active PARoxetine (PAXIL) 40 mg tabletIndications: Anxiety and depression Take 1 Tablet (40 mg) by mouth once daily in the morning. 90 Tablet 3 01/20/2024 Active potassium chloride (Klor-Con 10) 10 mEq extended-release tabletIndications: SOB (shortness of breath) Take 2 Tablets (20 mEq) by mouth once daily with a meal. 180 Tablet 3 01/20/2024 Active tirzepatide, weight loss, (Zepbound) 2.5 mg/0.5 mL penIndications:Mor bid exogenous obesity (HC) Inject 2.5 mg subcutaneous once weekly. 2 mL 01/20/2024 Active tirzepatide, weight loss, (Zepbound) 5 mg/0.5 mL penIndications:Mor bid exogenous obesity (HC) Inject 5 mg subcutaneous once weekly. 2 mL 01/20/2024 Active tirzepatide, weight loss, (Zepbound) 7.5 mg/0.5 mL penIndications:Mor bid exogenous obesity (HC) Inject 7.5 mg subcutaneous once weekly. 2 mL 01/20/2024 Active tirzepatide, weight loss, (Zepbound) 10 mg/0.5 mL penIndications:Mor bid exogenous obesity (HC) Inject 10 mg subcutaneous once weekly. 2 mL 01/20/2024 Active tirzepatide, weight loss, (Zepbound) 12.5 mg/0.5 mL penIndications:Mor bid exogenous obesity (HC) Inject 12.5 mg subcutaneous once weekly. 2 mL 01/20/2024 Active tirzepatide, weight loss, (Zepbound) 15 mg/0.5 mL penIndications:Mor bid exogenous obesity (HC) Inject 15 mg subcutaneous once weekly. 2 mL 01/20/2024 Active Walker - 4 wheelsIndications: Unstable gait With breaks and seat. For home use. Length of need: 99. 1 Each 01/20/2024 Active oxygen-air delivery systems (HOME OXYGEN)Indications :Severe persistent asthma, unspecified whether complicated Oxygen for home use. Liters per minute: 1 per nasal cannula. Frequency of use: Continuous with portability.;. Length of need: 99 Months. 1 Each 01/22/2024 Active CPAPIndications:OS A (obstructive sleep apnea) CPAP (E0601) machine for home use at pressure: 13 CM , Choice of mask (A7030 or A7034) w/full face cushion (A7031) x1/mo, nasal cushion (A7032) x2/mo, or nasal pillows (A7033) x 2/mo; Length of Need: 99 months; Frequency of use: Daily 1 Each 01/22/2024 Active albuterol (PROVENTIL) 0.083 % neb solutionIndication s:Moderate persistent asthma, uncomplicated Inhale 3 mL via a nebulizer every 6 hours if needed for Shortness Of Breath or Wheezing. 1 box 1 12/28/2014 01/20/20 Discontinu ed(Reorder (E-cancel not sent)) Symbicort 160-4.5 mcg/actuation (160-4.5 mcg each actuation) inhaler 03/01/2021 01/20/20 Discontinu ed(Reorder (E-cancel not sent)) medication order composerIndication s:Nocturnal hypoxemia Oxygen is no longer needed at night- the order for oxygen is canceled 1 unit 12/10/2022 01/20/20 Discontinu ed(*Med complete/R egimen complete/L evel of care change) tiotropium (SPIRIVA HANDIHALER) 18 mcg inhalation capsuleIndications :Severe persistent asthma, unspecified whether complicated Inhale 1 Capsule (18 mcg) by mouth once daily. Using a SPRIVA HANDIHALER fischer the capsule, then by mouth breathe in the powder. Inhale twice from the same capsule for full dose. 90 Capsule 3 02/21/2023 01/20/20 24 Discontinu ed(Reorder (E-cancel not sent)) furosemide (LASIX) 40 mg tabletIndications: SOB (shortness of breath) Take 1 Tablet (40 mg) by mouth every morning. 90 Tablet 3 03/06/2023 01/20/20 24 Discontinu ed(Reorder (E-cancel not sent)) potassium chloride (Klor-Con 10) 10 mEq extended-release tabletIndications: SOB (shortness of breath) Take 2 Tablets (20 mEq) by mouth once daily with a meal. 180 Tablet 3 03/06/2023 01/20/20 24 Discontinu ed(Reorder (E-cancel not sent)) PARoxetine (PAXIL) 40 mg tabletIndications: Anxiety and depression TAKE 1 TABLET BY MOUTH EVERY DAY IN THE MORNING 90 Tablet 10/10/2023 01/20/20 24 Discontinu ed(Reorder (E-cancel not sent)) Myrbetriq 50 mg tabletIndications: Urge urinary incontinence TAKE 1 TABLET BY MOUTH EVERY DAY 90 Tablet 01/06/2024 01/20/20 24 Discontinu ed(Reorder (E-cancel not sent)) Active Problems [...] in REM, 5 overall 9 Hypothyroidism 02/23/2009 Overview (05/01/2009): Diagnosed in 1998. TSH has been ~ 90 since 2002. Non compliant till 2006 but better (taking meds 5/7 days) 04/03: TSH >100, FreeT4 0.4, Reverse T3 9 (11-32 ng/dl) GERD (Gastroesophageal Reflux Disease) 9 Anxiety and depression Dizziness Overview (04/23/2021): Eval by [facility] neurology 2018. Thought to be [...] 06/30/2009 04/23/2021 Vitamin D deficiency 05/01/2009 021 Overview (05/01/2009): Vit D 11. Tissue transglutaminase ab neg. Chronic diarrhea 04/25/2009 04/23/2021 Mild Intermittent Asthma 02/23/200911/2011 Encounters Date Type Department Care Team Description 02/05/2024 2:30 PM CDT Office Visit [facility] [address] [place] [address] Paolo Limon MD Sleep Follow-up; Medication List Update (Awaiting Zepbound approval from insurance) 02/05/2024 Travel 02/05/2024 Telephone [facility] [address] [place] [address] Paolo Limon MD Questions (C pap machine ) 02/03/2024 Telephone [facility] [address] [place] [address] Geronimo Lamb MD Questions (Plan of care) 01/23/2024 Telephone [facility] [address] [place] [address] Geronimo Lamb MD Prior Authorization (tirzepatide, weight loss, (Zepbound) 2.5 mg/0.5 mL pen EXCLUDED) 01/22/2024 1:50 PM CDT Orders Only [facility] [address] [place] [phone] Lab, Appv Lab 01/22/2024 12:45 PM CDT Office Visit [facility] [address] [place] [address] Luis Santos, Consult (Lung Damage since COVID-19) 01/22/2024 Telephone [facility] [address] [facility] [address] [facility] [address] [place] [phone] Luis Santos, Testing (Needs PFT, esophagram, CT chest) 01/22/2024 Travel 01/20/2024 2:55 PM CDT Office Visit [facility] [address] [place] [address] Geronimo Lamb MD Follow Up 01/20/2024 Travel 01/03/2024 Refill [facility] [address] [place] [address] Geronimo Lamb MD Refill Request (Myrbetriq) 11/26/2023 9:30 AM CDT - 11/26/2023 11:59 PM CDT Hospital Encounter [facility] EMG/EEG/EP [address] [facility] [address] [place] [address] Dread Villavicencio MD [place], Scott P Seizure (HC) 11/26/2023 Travel 11/14/2023 Orders Only [facility] Scanner 1 scan: (1-Ord) [facility], CT ABDOMEN PELVIS W CON , 11/14/2023 11/13/2023 10:35 AM CDT Office Visit [facility] [address] [place] [address] Geronimo Lamb MD Results (Discuss lab results); ER Follow up ([facility], 11/11/2023, abdominal pain) 11/13/2023 Travel 11/11/2023 Telephone [facility] [place] [facility] [address] [place] [address] Dread Villavicencio MD Results from Last 3 Months Immunizations Name Administration Dates Next Due COVID-19 VACCINE SPIKEVAX (M ODERNA 50MCG/0.5ML) 12YO+ PFS 03/19/2023 COVID-19 vaccine (Pfizer-Bio NTech 30mcg/0.3mL) 12YO+ [...] Reading Time Taken Comments Blood Pressure 125/85 02/05/2024 1:48 PM CDT Pulse 89 02/05/2024 1:48 PM CDT Temperature 36.7 ??C (98.1 ??F) 05/15/2023 1:42 PM CS T Respiratory Rate 18 01/22/2024 12:56 PM CDT Oxygen Saturation 93% 02/05/2024 1:48 PM CDT Inhaled Oxygen Concentration - - Weight 104.3 kg (230 lb) 02/05/2024 1:48 PM CDT Height 142.2 cm (4' 8) 01/22/2024 12:56 PM CDT Body Mass Index 51.56 01/22/2024 12:56 PM CDT Plan of Treatment Upcoming Encounters Date Type Department Care Team (Late st Contact Info) Description 03/15/2024 9:00 AM CDT Orders Only [facility] [address] [facility] [place] [address] Lab, [place] 03/19/2024 1:15 PM CDT Office Visit [facility] [address] [place] [address] Geronimo Lamb MD [address] [place] [address] 05/12/2024 2:00 PM COMMUNITY LIFE DIRECTOR Office Visit [facility] [address] [place] [address] Paolo Limon MD [address] [place] [address] Health Maintenance Due Date Last Done Comments [...] Seizure (HC) SCAN-CT INTERPRETATION 12:00 AM CDT ANTI HIV 1/2 Routine 05/01/2022 4:36 PM COMMUNITY LIFE DIRECTOR Encounter for screening for HIV ANTI HCV Routine 12/05/2021 9:30 AM CDT Need for hepatitis C screening test SCAN-MAMMOGRAPHY REPORT 02/24/2019 12:00 AM CDT from Last 3 Months or Most Recently Relevant to Health Maintenance Results * RESPIRATORY DISEASE ALLERGY PROFILE (01/22/2024 2:02 PM CDT) Alternaria Alternata IGE <0.10 <=0.35 kU/L 01/29/2024 2:13 PM CDT [facility] Aspergillus Fumigatus (M3) IGE <0.10 <=0.35 kU/L 01/29/2024 2:13 PM CDT [facility] Birch (T3) IgE <0.10 <=0.35 kU/L 01/29/2024 2:13 PM CDT [facility] Cat Dander (E1) IgE <0.10 <=0.35 kU/L 01/29/2024 2:13 PM CDT [facility] Cladosporium herbarum (M2) IgE <0.10 <=0.35 kU/L 01/29/2024 2:13 PM CDT [facility] Cockroach (I6) IgE <0.10 <=0.35 kU/L 01/29/2024 2:13 PM CDT [facility] Common Ragweed (W1) IgE <0.10 <=0.35 kU/L 01/29/2024 2:13 PM CDT [facility] D. Farinae (D2) IgE <0.10 <=0.35 kU/L 01/29/2024 2:13 PM CDT [facility] D. Pteronyssinus (D1) IgE <0.10 <=0.35 kU/L 01/29/2024 2:13 PM CDT [facility] Dog Dander (E5) IgE <0.10 <=0.35 kU/L 01/29/2024 2:13 PM CDT [facility] Elm (T8) IgE <0.10 <=0.35 kU/L 01/29/2024 2:13 PM CDT [facility] IMMUNOGLOBULIN E (IGE) 59.2 22.0 - 107.0 kU/L 01/29/2024 2:13 PM CDT [facility] MAPLE (BOX ELDER) (T1) IGE <0.10 <=0.35 kU/L 01/29/2024 2:13 PM CDT [facility] ORCHARD GRASS (G3) IGE <0.10 <=0.35 kU/L 01/29/2024 2:13 PM CDT [facility] RED TOP (BENT) GRASS (G9) IGE <0.10 <=0.35 kU/L 01/29/2024 2:13 PM CDT [facility] ROUGH VALENTINE ELDER (W16) IGE <0.10 <=0.35 kU/L 01/29/2024 2:13 PM CDT [facility] [place] (T7) IGE <0.10 <=0.35 kU/L 01/29/2024 2:13 PM CDT [facility] Blood BLOOD SPECIMEN / Unknown Venipuncture / Unknown 01/22/2024 2:02 PM CDT 01/22/2024 2:03 PM CDT Luis Santos DO SEND OUTS Performing Organization Address [facility] Co de Phone Number [facility] [address] [place] [address], [place] * IMMUNOGLOBULIN E,IGE (01/22/2024 2:02 PM CDT) IMMUNOGLOBULIN E (IGE) 55.3 22.0 - 107.0 kU/L 01/27/2024 1:59 PM CDT [facility] Blood BLOOD SPECIMEN / Unknown Venipuncture / Unknown 01/22/2024 2:02 PM CDT 01/22/2024 2:03 PM CDT Luis Santos DO CHEMISTRY Performing Organization Address [facility] de Phone Number [facility] [address] [place] [address], [place] * QFT MITOGEN PERFORMABLE (01/20/2024 4:00 PM CDT) MITOGEN 4.85 IU/mL 01/22/2024 12:48 PM CDT [facility] Blood BLOOD SPECIMEN / Unknown Venipuncture / Unknown 01/20/2024 4:00 PM CDT 01/20/2024 4:00 PM CDT Geronimo Lamb MD CHEMISTRY Performing Organization Address [facility] Co de Phone Number [facility] [address] [address], [place] * QFT TB2 PERFORMABLE (01/20/2024 4:00 PM CDT) TB2 0.01 IU/mL 01/22/2024 10:03 AM CDT [facility] Blood BLOOD SPECIMEN / Unknown Venipuncture / Unknown 01/20/2024 4:00 PM CDT 01/20/2024 4:00 PM CDT Geronimo Lamb MD CHEMISTRY Performing Organization Address City/[facility]/ZIP Co de Phone Number [facility] [address] [address], [place] * QFT TB1 PERFORMABLE (01/20/2024 4:00 PM CDT) TB1 0.01 IU/mL 01/22/2024 10:04 AM CDT [facility] Blood BLOOD SPECIMEN / Unknown Venipuncture / Unknown 01/20/2024 4:00 PM CDT 01/20/2024 4:00 PM CDT Geronimo Lamb MD CHEMISTRY [facility] [address] [address], [place] * QUANTIFERON TB GOLD PLUS (01/20/2024 4:00 PM CDT) QFTP NIL 0.00 01/22/2024 2:20 PM CDT [facility] TB1 0.01 IU/mL 01/22/2024 2:20 PM CDT [facility] TB2 0.01 IU/mL 01/22/2024 2:20 PM CDT [facility] MITOGEN 4.85 IU/mL 01/22/2024 2:20 PM CDT [facility] QFTP TB AG1 - NIL 0.01 024 2:20 PM CDT [facility] TB1-NIL % OF NIL 01/22/20 2:20 PM CDT [facility] Comment:Unable to calculate QFTP TB AG2 - NIL 0.01 024 2:20 PM CDT [facility] TB2-NIL % OF NIL 01/22/20 24 2:20 PM CDT [facility] Comment:Unable to calculate QFTP MITOGEN - NIL 4.85 2023 2:20 PM CDT [facility] QFTP QUANTIFERON INTERPRETATION Negative Negative 01/22/2024 2:20 PM CDT [facility] Blood BLOOD SPECIMEN / Unknown Venipuncture / Unknown 01/20/2024 4:00 PM CDT 01/20/2024 4:00 PM CDT Narrative [facility] - 01/22/2024 2:20 PM CDT M. tuberculosis [...] old. - women Geronimo Lamb MD CHEMISTRY [facility] [address] [place] [address], * HEMOGLOBIN A1C SCREENING (01/20/2024 4:00 PM CDT) HEMOGLOBIN A1C SCREENING 6.1 <=6.4 % 01/21/2024 9:15 AM CDT [facility] Blood BLOOD SPECIMEN / Unknown Venipuncture / Unknown 01/20/2024 4:00 PM CDT 01/20/2024 4:00 PM CDT Narrative [facility] - 01/21/2024 9:15 AM CDT ? (<5.7%) ?Normal ? (5.7% to 6.4%) ? Indicates prediabetes ? (>=6.5%) ? Confirms diabetes Falsely low levels may be seen with: Recent Transfusion, Recent Significant Blood Loss, Hemolytic Diseases, or Falsely elevated levels may be seen with: Untreated Anemias, Splenectomy Geronimo Lamb MD CHEMISTRY Performing Organization Address [facility] Co de Phone Number [facility] [address] [address], [place] * TSH WITH REFLEX (01/20/2024 4:00 PM CDT) TSH 0.64 0.27 - 4.20 uIU/mL 01/21/2024 1:44 PM CDT [facility] Blood BLOOD SPECIMEN / Unknown Venipuncture / Unknown 01/20/2024 4:00 PM CDT 01/20/2024 4:00 PM CDT Narrative [facility] - 01/21/2024 1:44 PM CDT In Adults, TSH values between 5.00 and 10.00 uIU/ml do not necessarily indicate the presence of Hypothyroidism. Correlation with clinical findings such as presence of goiter and/or Thyroperoxidase (TPO) Antibody may be helpful. For more information please refer to SIVAN 2004; 291: 228-238. Geronimo Lamb MD CHEMISTRY Performing Organization Address [facility] Co de Phone Number [facility] [address] [address], [place] * (ABNORMAL) LIPID PANEL W REFLEX MEASURED LDL (01/20/2024 4:00 PM CDT) CHOLESTEROL,TOTAL 261(H) 100 - 199 mg/dL 01/21/2024 1:44 PM CDT [facility] Comment: Cholesterol, Total Reference Ranges Desirable <200 mg/dL Borderline 200-239 mg/dL High >=240 mg/dL TRIGLYCERIDES 252(H) <150 mg/dL 01/21/2024 1:44 PM CDT [facility] HDL CHOLESTEROL 50 >40 mg/dL 1:44 PM CDT [facility] NON-HDL CHOLESTEROL 211(H) <145 mg/dl 01/21/2024 1:44 PM CDT [facility] CHOL/HDL RATIO 5.22(H) <4.50 01/21/2024 1:44 PM CDT [facility] LDL CHOLESTEROL 161(H) <=130 mg/dL 01/21/2024 1:44 PM CDT [facility] VLDL CHOLESTEROL 50(H) <=30 mg/dL 01/21/2024 1:44 PM CDT [facility] PROVIDER ORDERED STATUS RANDOM 01/21/2024 1:44 PM CDT [facility] Blood BLOOD SPECIMEN / Unknown Venipuncture / Unknown 01/20/2024 4:00 PM CDT 01/20/2024 4:00 PM CDT Geronimo Lamb MD CHEMISTRY [facility] [address] [place] [address], * BASIC METABOLIC PANEL (01/20/2024 4:00 PM CDT) SODIUM 139 136 - 145 mmol/L 01/21/2024 1:44 PM CDT [facility] POTASSIUM 4.0 3.5 - 5.1 mmol/L 01/21/2024 1:44 PM CDT [facility] CHLORIDE 100 98 - 107 mmol/L 01/21/2024 1:44 PM CDT [facility] CO2,TOTAL 28 22 - 29 mmol/L 01/21/2024 1:44 PM CDT [facility] ANION GAP 11 5 - 18 01/21/2024 1:44 PM CDT [facility] GLUCOSE 98 70 - 99 mg/dL 01/21/2024 1:44 PM CDT [facility] CALCIUM 9.2 8.6 - 10.0 mg/dL 01/21/2024 1:44 PM CDT [facility] BUN 12 6 - 20 mg/dL 01/21/2024 1:44 PM CDT [facility] CREATININE 0.79 0.50 - 0.90 mg/dL 01/21/2024 1:44 PM CDT [facility] BUN/CREAT RATIO 15 10 - 20 4 1:44 PM CDT [facility] eGFR >90 >90 mL/min/1.7 3m2 01/21/2024 1:44 PM CDT [facility] Comment:As of 2021, eG FR is calculated by the CKD-EPI creatinine equation without race adjustment. ??eGFR can be influenced by muscle mass, exercise, and diet. ??The reported eGFR is an estimation only and is only applicable if the renal function is stable. Blood BLOOD SPECIMEN / Unknown Venipuncture / Unknown 01/20/2024 4:00 PM CDT 01/20/2024 4:00 PM CDT Geronimo Lamb MD CHEMISTRY [facility] [address] [place] [address], * EEG (11/26/2023 9:30 AM CDT) Narrative [...] help, Dr Adi Heath does this at [place]. Emerson Mcmahon MD, FAAN, PATRICIA Epileptologist, President - [facility] [place]. Dread Villavicencio MD NEUROLOGY ORD * SCAN-CT INTERPRETATION (11/14/2023 12:00 AM CDT) Anatomical Region Laterality Modality Other Scanner OTHER * ANTI HIV 1/2 (05/01/2022 4:36 PM COMMUNITY LIFE DIRECTOR) HIV-1/HIV-2 ANTIBODY Non-Reacti ve Non-Reacti ve 05/04/2022 9:59 PM COMMUNITY LIFE DIRECTOR [facility] Comment:HIV-1 p24 and HIV-1/ HIV-2 Ab not detected. Blood BLOOD SPECIMEN / Unknown Butterfly / Unknown 05/01/2022 4:36 PM COMMUNITY LIFE DIRECTOR 05/01/2022 4:41 PM COMMUNITY LIFE DIRECTOR Geronimo Lamb MD SEND OUTS Performing Organization Address City/[facility]/ZIP Co de Phone Number [id number] [employer] [facility] [address] [place] [address], [place] * ANTI HCV (12/05/2021 9:30 AM CDT) HEPATITIS C ANTIBODY Non-React shikha Non-React shikha 12/05/2021 9:16 PM CDT [facility] Comment:Antibodies to HCV no t detected; does not exclude the possibility of exposure to HCV. Blood BLOOD SPECIMEN / Unknown Venipuncture / Unknown 12/05/2021 9:30 AM CDT 12/05/2021 9:33 AM CDT Geronimo Lamb MD SEND OUTS [facility] [address] [place] [address], [place] * SCAN-MAMMOGRAPHY REPORT (02/24/2019 12:00 AM CDT) Anatomical Region Laterality Modality Other Scanner OTHER from Last 3 Months or Most Recently Relevant to Health Maintenance Care Teams Electrician Marine Relationship Specialty Start Date End Date Geronimo Lamb MD [address] [place] [address] PCP - General Family Practice 04/23/21 Paolo Limon MD Sleep Medicine 10/28/11 Talon Durham MD Neurology Neurology 11/26/11 Laura Gardner PsyD, SYM[facility] Psychology 09/14/13 [place] [address] [place] [address] Pulmonology Pulmonary Medicine 01/22/24
--- OUTSIDE RECORDS SUMMARY | 2024-02-06 06:14 | XMS_ITS ---
Author Organization [facility] Address [address] [place] [address] Care Team Providers Care Transaction Manager Name Role Phone Unavailable Unavailable Unavailable Surgery Details Not on file Complications Check Surgery Details section. Procedure Estimated Blood Loss Check Surgery Details section. Procedure Findings Check Surgery Details section. Procedure Specimens Taken Check Surgery Details section.
--- OUTSIDE RECORDS SUMMARY | 2024-02-06 06:14 | XMS_ITS | Referral Summary ---
Author Organization [facility] Address [address] [place] [address] Care Team Providers Care House Mother Name Role Phone Elsewhere, Pcp Primary Care Provider Unavailabl e Source Comments Patient records contain information from all sites at [facility]. For routine questions regarding patient records, call [phone] during business hours, M-F 8:00 AM - 5:00 PM Central Time. Record requests for emergency care only can be directed to [phone] at any time.[facility] Allergies [...] Sex Assigned at Female 06/02/2018 2:11 PM CHANGE CONTROL ANALYST Gender Identity Female 06/02/2018 2:11 PM CHANGE CONTROL ANALYST Sexual Orientation Choose not to disclose 2018 2:11 PM CHANGE CONTROL ANALYST Last Filed Vital Signs Vital Sign [...] on file Medical Devices Implanted Type Area Audiovisual Equipment Operator Device Identifier Shelf Expiration Date Model / Serial / Lot Ear Implant- [id number] Implanted:11/24 (Quantity not on file) Ear Implant Ear Olympus Bernice Vega TORP Plasti-pore [id number] / / [id number] Description:[facility], [place], [place]. Ear implant-Vega TOPR Plasti-pore MRI Safe Procedures Procedure Name Priority Date/Time Associated Diagnosis Comments THYROID-STIMULATING HORMONE-SENSITIVE (S-TSH) Routine 10/27/2018 3:42 PM CDT Hypothyroidism Primary BASIC METABOLIC PANEL, S/P Routine 03/11/2018 1:58 PM CDT Dizziness Diplopia LIPID PANEL, S Routine 06/10/2016 10:40 AM CHANGE CONTROL ANALYST from Last 3 Months or Most Recently Relevant to Health Maintenance Results * (ABNORMAL) S-TSH (Thyroid-Stimulating Hormone - Sensitive) (10/27/2018 3:42 PM CDT) TSH, Sensitive 10.7(H) 0.3 - 4.2 mIU/L 10/27/2018 5:20 PM CDT Comment: Biotin has been identified by the beam racker as a potential interfering substance. ??Higher concentrations of biotin may be found in multivitamins, hair/nail supplements, and workout supplements. ??If the result does not match clinical observations, repeat testing after patient refrains from the use of supplements for at least 12 hours. Blood (Blood, Venous) 10/27/2018 3:42 PM CDT 10/27/2018 3:43 PM CDT Deanne Tsang P.A.-C. LAB BLOOD ADD-O N [facility] [id number] * Basic Metabolic Panel (03/11/2018 1:58 PM CDT) Pathologist [facility] Potassium, S 4.0 3.6 - 5.2 mmol/L 03/11/2018 2:29 PM CDT [facility] Sodium, S 141 135 - 145 mmol/L 03/11/2018 2:29 PM CDT [facility] Chloride, S 101 98 - 107 mmol/L 03/11/2018 2:29 PM CDT [facility] Bicarbonate, S 27 22 - 29 mmol/L 03/11/2018 2:29 PM CDT [facility] Anion Gap 13 7 - 15 03/11/2018 2:29 PM CDT [facility] BUN (Blood Urea Nitrogen), S 12 6 - 21 mg/dL 03/11/2018 2:29 PM CDT [facility] Creatinine 0.62 0.59 - 1.04 mg/dL 03/11/2018 2:29 PM CDT [facility] eGFR-Non Black/ >90 >=60 mL/min/BSA 03/11/2018 2:29 PM CDT [facility] Comment: ----ADDITIONAL INFORMATION---- Estimated GFR calculated using the 2009 CKD_EPI creatinine equation. eGFR-Black/Afri can Swazi >90 >=60 mL/min/BSA 03/11/2018 2:29 PM CDT [facility] Comment: ----ADDITIONAL INFORMATION---- Estimated GFR calculated using the 2009 CKD_EPI creatinine equation. Calcium, Total, S 9.4 8.6 - 10.0 mg/dL 03/11/2018 2:29 PM CDT [facility] Glucose, S 95 70 - 140 mg/dL 03/11/2018 2:29 PM CDT [facility] Blood (Blood, Venous) 03/11/2018 1:58 PM CDT 03/11/2018 1:58 PM CDT Deanne Tsang P.A.-C. LAB BLOOD ADD-O N Performing Organization Address City/State/[facility] Co de Phone Number [facility] [address] [place] [address], [facility] * (ABNORMAL) Lipid Panel (06/10/2016 10:40 AM CHANGE CONTROL ANALYST) Cholesterol, Total 275(H) <=199 MGDL POWERCHART Comment: [...] for FH and FDB is available through Hannah Utan: FH/ADH Genetic Reflex Panel (test ADHP). Acquired (non-genetic) causes of markedly increased LDL cholesterol include cholestatic liver disease due to the presence of LpX. If a genetic form of hypercholesterolemia is suspected, family studies including biochemical testing for lipids (total cholesterol,triglycerides, LDL cholesterol and HDL cholesterol) are recommended. ??Please contact the laboratory at or the on-line test catalog at [facility] for information about how to order these tests or to speak with a genetic counselor. Further interpretation would require clinical information. Total Cholesterol/HDL Ratio 5 POWERCHART Blood 06/10/2016 10:4 0 AM CHANGE CONTROL ANALYST Ana Chery M.D. LAB BLOOD ADD-O N POWERCHART from Last 3 Months or Most Recently Relevant to Health Maintenance Care Teams House Mother Relationship Specialty Start Date End Date Elsewhere, Pcp PCP - General Internal Medicine 12/04/18
== END 2024-02-03 04:42 | disposition home or self-care (01) ==
LOC: AMB 02-06 06:12
PROVIDERS: PCP Family Medicine; Visit Provider Student in an Organized Health Care Education/Training Program
DX: R56.9 Unspecified convulsions (principal); R53.1 Weakness
CPT/HCPCS: A0425; A0429

== ENCOUNTER 2024-02-03 05:08 | Emergency (ER) | payer OTHER, SELFPAY ==
[2024-02-03 05:14] VITALS: BP 107/85; PULSE 72; RESP 18; TEMP 36.7; O2SAT 93; BMI 49.8
[2024-02-03 05:20] VITALS: O2SAT 93
--- NOTE | 2024-02-03 05:25 | ED.GENADULT ---
HPI - General Adult General Chief complaint: Weakness Stated complaint: seizures Time Seen by Provider: 02/03/24 05:16 Source: patient and EMS Mode of arrival: EMS Limitations: no limitations History of Present Illness HPI narrative: Patient is a 48-year-old female with a history of COPD, pseudoseizures, hyperthyroidism, hydrocephalus presenting to the emergency department via EMS for several different complaints. It is states they were called because go through seizures is weakness. They state they called to her home frequently for seizures but typically able to discharge her at seen but they state she was not as talkative and seemed weaker compared to normal so they were more concerned. She told them that she has had several seizures today and has not had her medicine for a week and a half. She had a another seizure for 4 EMS but they state she was conscious throughout all and did not have any postictal. Speaking to the patient she states she was just able to get her medications refilled today but has not been able to take them yet. States she has not had her Keppra or levothyroxine for the past week and a half. She also states she feels weaker today and is overall send feeling well. States she is having some epigastric discomfort that she thinks is related to her GERD. States last time she had this she was given GI cocktail and it helped. Does states she has been under lot of stress as she is working on moving into in assisted living. Currently lives independently with home health. Denies fevers, chills, headache, diarrhea. She wears home O2 as needed. Related Data Home Medications ?Medication ?Instructions ?Recorded ?Confirmed albuterol sulfate 90 mcg/actuation 2 puff inhalation Q4H PRN 11/30/21 02/03/24 aerosol inhaler mirabegron 50 mg tablet,extended 50 mg PO DAILY 11/30/21 02/03/24 release 24 hr (Myrbetriq) montelukast 10 mg tablet 10 mg PO HS 11/30/21 02/03/24 omeprazole 20 mg capsule,delayed 40 mg PO DAILY 02/26/22 02/03/24 release levetiracetam 750 mg tablet 750 mg PO BID 11/25/22 02/03/24 (Keppra) cholecalciferol (vitamin D3) 50 50 mcg PO DAILY 01/30/23 02/03/24 mcg (2,000 unit) capsule paroxetine HCl 40 mg tablet 40 mg PO DAILY 01/30/23 02/03/24 levothyroxine 100 mcg tablet 100 mcg PO DAILY 10/16/23 02/03/24 potassium chloride 10 mEq 10 meq PO DAILY 10/16/23 02/03/24 tablet,extended release Previous Rx's ?Medication ?Instructions ?Recorded albuterol sulfate 2.5 mg/3 mL 2.5 mg (3 mL) inhalation Q8H PRN 02/02/23 (0.083 %) solution for nebulization #1 mL budesonide-formoterol HFA 160 2 puff inhalation BID #1 g 02/02/23 mcg-4.5 mcg/actuation aerosol inhaler (Symbicort) furosemide 40 mg tablet 40 mg PO DAILY #30 tabs 02/02/23 tiotropium bromide 2.5 2 puff inhalation DAILY #1 g 02/02/23 mcg/actuation mist for inhalation (Spiriva Respimat) Allergies Allergy/AdvReac Type Severity Reaction Status Date / Time azithromycin Allergy Intermediate Bloody Verified 02/03/24 05:17 Stools latex Allergy Intermediate Rash Verified 02/03/24 05:17 oxycodone Allergy Intermediate Agitated Verified 02/03/24 05:17 scopolamine Allergy Intermediate Tremors Verified 02/03/24 05:17 acetaminophen [From Percocet] Allergy Mild Verified 02/03/24 05:17 basil Allergy Rash Verified 02/03/24 05:17 Review of Systems Status of ROS: Reports: 10 or more systems reviewed and unremarkable except as noted in History and below [facility] Medical History Hypothyroidism ?E03.9 - Hypothyroidism, unspecified (ICD-10) Acute and chronic respiratory failure with hypoxia ?J96.21 - Acute and chronic respiratory failure with hypoxia (ICD-10) 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 - Unspecified convulsions (ICD-10) RODRICK (obstructive sleep apnea) ?G47.33 - Obstructive sleep apnea (adult) (pediatric) (ICD-10) ADHD ?F90.9 - Attention-deficit hyperactivity disorder, unspecified type (ICD-10) Hyperthyroidism ?E05.90 - Thyrotoxicosis, unspecified without thyrotoxic crisis or storm (ICD-10) Hydrocephalus ?G91.9 - Hydrocephalus, unspecified (ICD-10) Hyperlipidemia ?E78.5 - Hyperlipidemia, unspecified (ICD-10) Anxiety and depression ?F41.9 - Anxiety disorder, unspecified (ICD-10) ?F32.A - Depression, unspecified (ICD-10) Asthma ?J45.909 - Unspecified asthma, uncomplicated (ICD-10) Surgical History History of ear surgery ?Z98.890 - Other specified postprocedural states (ICD-10) History of strabismus surgery ?Z98.890 - Other specified postprocedural states (ICD-10) Social History Narrative: on disability since 2009; lives alone with her cat. nonsmoker, no drugs, no significant tobacco history adopted, her two adopted aunts are her family contacts. What is your current living situation?: I presently have a place to live Problems where you live: no known problems Problems where you live details: None In the past 12 months, utilities in danger of being shut off: no In past 12 months, lack of transportation kept you from medical appts, meetings, work, or getting things needed for daily living: no In the past 12 mos, have been you worried that your food would run out before you had money to buy more?: never true In the past 12 mos, the food you bought just didn't last and you didn't have money to buy more?: never true Highest level of school completed/degree received: Associate degree: academic program Smoking Status: Never smoker Do you use any of these nicotine containing products: None Second hand tobacco smoke exposure: No How often do you have a drink containing alcohol: never How often do you have six or more drinks on one occasion: Never AUDIT-C Alcohol total score: 0 Non-prescribed substance use: denies use Caffeine: Yes (Pop ocassionally) How often does anyone, including family, friends and others, physically hurt you: never How often does anyone, including family, friends and others, insult or talk down to you: never How often does anyone, including family, friends and others, threaten you with harm: never How often does anyone, including family, friends and others, scream or curse at you: never service: No Exam Narrative: Exam Narrative: Const: Well-nourished, Well-developed, in mild distress Eyes: PERRL, no conjunctival injection, and symmetrical lids HENT: Atraumatic external nose and ears. Moist mucous membranes. Neck: Symmetric, trachea midline, No thyromegaly. CVS: RRR, No murmurs or gallops. Peripheral pulses 2+ and equal in all extremities RESP: Unlabored respiratory effort. Clear to auscultation bilaterally. GI: Nontender/Nondistended, No rebound or guarding. MSK:Extremities w/o deformity, Normal Active ROM Skin: Warm, Dry. No rashes or lesions. Neuro: Normal Muscle tone, No focal neurological deficits. Psych: Awake, Alert, & Oriented x3. Appropriate mood and affect. Const: Vital Signs, click to edit/add: Vital Signs - 24 hr 02/03/24 05:14 02/03/24 05:20 02/03/24 05:39 Temperature 98.1 F Pulse Rate [Right Pulse Oximeter] 72 Respiratory Rate 18 Blood Pressure [Ri ght Upper Arm] 107/85 Pulse Oximetry 93 93 93 Oxygen Delivery Me thod Nasal Cannula Nasal Cannula Oxygen Flow Rate 2 2 02/03/24 07:08 Temperature Pulse Rate [Right Pulse Oximeter] 86 Respiratory Rate 22 Blood Pressure [Ri ght Upper Arm] 149/97 H Pulse Oximetry 93 Oxygen Delivery Me thod Nasal Cannula Oxygen Flow Rate 2 Course Vital Signs Vital signs: Initial Vital Signs Temperature 98.1 F 02/03/24 05:14 Temperature Source Temporal Artery Scan 02/03/24 05:14 Pulse Rate 72 02/03/24 05:14 Respiratory Rate 18 02/03/24 05:14 Blood Pressure 107/85 02/03/24 05:14 Blood Pressure Mean 92 02/03/24 05:14 Blood Pressure Position Sitting 02/03/24 05:14 Pulse Oximetry 93 02/03/24 05:14 Oxygen Delivery Method Nasal Cannula 02/03/24 05:14 Oxygen Flow Rate 2 02/03/24 05:14 Vital Signs Temperature 98.1 F 02/03/24 05:14 Pulse Rate 72 02/03/24 05:14 Respiratory Rate 18 02/03/24 05:14 Blood Pressure 107/85 02/03/24 05:14 Pulse Oximetry 93 02/03/24 05:14 Oxygen Delivery Method Nasal Cannula 02/03/24 05:14 Oxygen Flow Rate 2 02/03/24 05:14 Temperature 98.1 F 02/03/24 05:14 Pulse Rate 86 02/03/24 07:08 Respiratory Rate 22 02/03/24 07:08 Blood Pressure 149/97 H 02/03/24 07:08 Pulse Oximetry 93 02/03/24 07:08 Oxygen Delivery Method Nasal Cannula 02/03/24 07:08 Oxygen Flow Rate 2 02/03/24 07:08 Medications Administered Medications: Generic Name Dose Route Start Last Admin Trade Name Freq PRN Reason Stop Dose Admin Levetiracetam 750 mg 02/03/24 05:24 02/03/24 05:37 Levetiracetam 500 Mg Tablet PO 02/03/24 05:25 750 mg ONCE ONE Administration Lidocaine/Aluminum/Magnesium/Simeth 30 ml 02/03/24 05:24 02/03/24 05:37 Gi Cocktail (Visc Lido/Antacid) 30 Ml PO 02/03/24 05:25 30 ml ONCE ONE Administration Potassium Chloride 40 meq 02/03/24 06:45 02/03/24 06:53 Potassium Chloride 10 Meq Capsule Er PO 02/03/24 06:46 40 meq ONCE ONE Administration Medical Decision Making [facility] Narrative Medical decision making narrative: Patient is a 48-year-old female presenting to emergency department for multiple complaints. She is concerned about seizures states he has had 3 or 4 them today. She does have a history of pseudoseizures though and EMS states usually when she is having a seizure she will talk through home. Someone has started her on Keppra though. Will order her a dose of Keppra here in the emergency department. Do not believe head imaging is necessary as well she may have have a history of true seizures the 1 she had per EMS sound like a pseudo-seizure and also any seizure she has had is likely due to not taking her medication. For epigastric pain symptoms are likely from GERD at this time I do not believe imaging is necessary. Will do a CBC, CMP, and lipase to further evaluate and give GI cocktail see this helps with a symptoms. Wall unlikely I will check a troponin EKG to look for signs of an abnormal presentation for ACS. Also ordered TSH with reflex T4. Is EKG shows no concerning abnormalities. Lab work shows no concerning findings other than a slightly low potassium at 3.3. This was replenished. Troponin within normal limits. Considering this epigastric pain has been going on for several weeks I do not believe a repeat troponin is necessary at this time. Lab Data Labs: Lab Results 02/03/24 Range/Units 05:45 WBC 9.47 (4.50-11.00) K/uL RBC 4.36 (4.00-5.20) m/uL Hgb 12.9 (12.0-16.0) gm/dL Hct 39.4 (33.0-51.0) % MCV 90 (80-100) fL MCH 30 (26-34) pg MCHC 33 (32-36) gm/dL RDW Coeff of Tomy 12.5 (11.5-15.5) % Plt Count 206 (140-440) K/uL Neut % (Auto) 72.5 H (42.0-72.0) % Lymph % (Auto) 19.2 L (20-44) % [place] % (Auto) 5.3 (0.0-11.0) % Eos % (Auto) 2.2 (0.0-7.0) % Baso % (Auto) 0.5 (0.0-3.0) % Neut # (Auto) 6.90 (1.7-7.0) K/uL Lymph # (Auto) 1.80 (0.90-2.90) K/uL [place] # (Auto) 0.50 (0.00-0.90) K/UL Eos # (Auto) 0.21 (0.00-0.50) K/uL Baso # (Auto) 0.05 (0.00-0.30) K/uL Abs Immat Gran (auto) 0.03 (0.00-0.30) K/uL Imm/Tot Granulo (auto) 0.3 % Sodium 136 (135-149) mmol/L Potassium 3.3 L (3.6-5.1) mmol/L Chloride 97 (96-114) mmol/L Carbon Dioxide 34 H (20-32) mmol/L Anion Gap 5 L (7-15) mEq/L BUN 12 (5-24) mg/dL Creatinine 0.6 (0.5-1.5) mg/dL Estimated Creat Clear 192.95 Estimated GFR 112 ml/min Glucose 134 H (60-115) mg/dL Calcium 9.0 (8.4-10.6) mg/dL Total Bilirubin 0.3 (0.1-1.5) mg/dL AST 31 (12-35) U/L ALT 31 (4-35) U/L Alkaline Phosphatase 101 (40-150) U/L Total Protein 6.9 (6.0-8.3) g/dL Albumin 4.0 (3.3-5.0) g/dL Lipase 45 (23-300) U/L TSH 2.860 (0.270-4.200) uIU/mL POC Troponin I 0.00 L (0.01-0.04) ng/ml ECG Data Attestation: I personally reviewed and interpreted this ECG as follows: Prior ECG tracings: available for review Interpretation: Normal sinus rhythm rate 76 beats per minute, normal intervals, normal axis, no ST abnormalities. There are flat T-waves appear consistent with previous EKGs. Discharge Plan Discharge Clinical Impression: Pseudoseizures Gastritis Qualifiers: Gastritis type: unspecified gastritis Chronicity: unspecified Gastritis bleeding: presence of bleeding unspecified Qualified Code(s): K29.70 - Gastritis, unspecified, without bleeding Patient Disposition: Home, Self-Care Condition: Improved Instructions: Gastritis (DC) Additional Instructions: Take antacids at home to help with the symptoms. Return to emergency department for new worsening symptoms. Make sure to continue taking your Keppra. Prescriptions: No Action levetiracetam [Keppra] 750 mg tablet 750 mg PO BID potassium chloride 10 mEq tablet extended release 10 meq PO DAILY Rx Instructions: take 2 tablets daily levothyroxine 100 mcg tablet 100 mcg PO DAILY montelukast 10 mg tablet 10 mg PO HS mirabegron [Myrbetriq] 50 mg tablet extended release 24 hr 50 mg PO DAILY Patient Comments: albuterol sulfate 90 mcg/actuation HFA aerosol inhaler 2 puff INHALATION Q4H PRN cholecalciferol (vitamin D3) 50 mcg (2,000 unit) capsule 50 mcg PO DAILY paroxetine HCl 40 mg tablet 40 mg PO DAILY Patient Comments: furosemide 40 mg Tablet 40 mg PO DAILY Qty: 30 0RF albuterol sulfate 2.5 mg /3 mL (0.083 %) solution for nebulization 2.5 mg inhalation Q8H PRNQty: 1 0RF budesonide-formoterol [Symbicort] 160-4.5 mcg/actuation HFA aerosol inhaler 2 puff INHALATION BID Qty: 1 0RF Spiriva Respimat 2.5 mcg/actuation mist 2 puff inhalation DAILY Qty: 1 0RF omeprazole 20 mg capsule,delayed release(DR/EC) 40 mg PO DAILY Follow Up/Referrals: Geronimo Lamb MD [Primary Care Provider] - Stand Alone Forms: [employer] Info Instructions
[2024-02-03] MEDS: GI COCKTAIL (VISC LIDO/ANTACID) 30 ML PO (05:37)
[2024-02-03] MEDS: levETIRAcetam 500 MG TABLET 750 MG PO (05:37)
[2024-02-03 05:39] VITALS: O2SAT 93
[2024-02-03 05:55] LABS: Basophils Absolute Auto 0.05 K/uL (0.00-0.30); Basophils Percent Auto 0.5 % (0.0-3.0); Eosinophils Absolute Auto 0.21 K/uL (0.00-0.50); Eosinophils Percent Auto 2.2 % (0.0-7.0); Hematocrit 39.4 % (33.0-51.0); Hemoglobin* 12.9 gm/dL (12.0-16.0); Immature Granulocytes Abs Auto 0.03 K/uL (0.00-0.30); Immature Granulocytes Pct Auto 0.3 %; Lymphocytes Percent Auto 19.2 % (20-44); Mean Corpuscular HGB Conc 33 gm/dL (32-36); Mean Corpuscular Hemoglobin 30 pg (26-34); Mean Corpuscular Volume 90 fL (80-100); Monocytes Percent Auto 5.3 % (0.0-11.0); Neutrophils Percent Auto 72.5 % (42.0-72.0); Platelet Count* 206 K/uL (140-440); RDW Coefficient of Variation % 12.5 % (11.5-15.5); Red Blood Count 4.36 m/uL (4.00-5.20); White Blood Count* 9.47 K/uL (4.50-11.00)
[2024-02-03 06:00] LABS: Slide Review Reflex No
[2024-02-03 06:24] LABS: Chloride* 97 mmol/L (96-114)
[2024-02-03 06:25] LABS: Potassium* 3.3 mmol/L (3.6-5.1); Sodium* 136 mmol/L (135-149)
[2024-02-03 06:27] LABS: Alkaline Phosphatase* 101 U/L (40-150); Anion Gap 5 mEq/L (7-15); Aspartate Amino Transferase* 31 U/L (12-35); Bilirubin Total* 0.3 mg/dL (0.1-1.5); Blood Urea Nitrogen* 12 mg/dL (5-24); Carbon Dioxide* 34 mmol/L (20-32); Creatinine* 0.6 mg/dL (0.5-1.5); Est. Creatinine Clearance* 192.95; Estimated Glomerular Filt Rate 112 ml/min; Lipase* 45 U/L (23-300); Total Protein* 6.9 g/dL (6.0-8.3)
[2024-02-03 06:28] LABS: Alanine Aminotransferase* 31 U/L (4-35); Glucose* 134 mg/dL (60-115)
[2024-02-03] MEDS: POTASSIUM CHLORIDE 10 MEQ CAPSULE ER 40 MEQ PO (06:53)
[2024-02-03 07:08] VITALS: BP 149/97; PULSE 86; RESP 22; O2SAT 93
--- NOTE | 2024-02-03 07:38 | PC.NURSE ---
Patient ambulated to bathroom via walker without difficulty. Patient feels comfortable discharging. Called friend for a ride and will come at 830.
--- NOTE | 2024-02-03 08:22 | PC.NURSE ---
Patient required 2L of oxygen while here. Patient on chronic O2 at home. Did not bring her transport tank with her. [employer] offered to get transport tank to bring home and return but patient declined and stated I only live a few blocks from here, I will be fine without it. Educated patient on risks of this. Patient also stated that she is moving into [facility] on February 23 and is very excited about this. Patient left with friend.
== END 2024-02-03 08:25 | disposition home or self-care (01) ==
PROVIDERS: Emergency Provider Student in an Organized Health Care Education/Training Program; PCP Family Medicine
DX: R56.9 Unspecified convulsions (principal); K29.70 Gastritis, unspecified, without bleeding
CPT/HCPCS: 36415; 80053; 83690; 84443; 84484; 85025; 93005; 94761; 99283; 99284; A9270

== ENCOUNTER 2024-02-24 02:36 | Outpatient (CLI) | payer MEDICAID, SELFPAY ==
--- OUTSIDE RECORDS SUMMARY | 2024-02-27 14:16 | XMS_ITS | Clinical Summary ---
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 Thought to be functional. [...] Encounters Date Type Department Care Team Description 02/25/2024 8:38 AM CDT - 02/25/2024 11:59 PM CDT Hospital Encounter [address] [id number] Luis Santos DO Wheezing 02/25/2024 8:30 AM CDT - 02/25/2024 8:37 AM CDT Hospital Encounter [address] [address] Luis Santos DO Small airways disease; Wheezing 02/25/2024 Travel 02/24/2024 Orders Only [facility] Scanner 1 scan: (1-Ord) [facility], XR CHEST 2V, 02/24/2024 02/24/2024 Telephone [facility] [address] [place] [address] Geronimo Lamb MD Health Maintenance Update (Assisted Living Request) 02/06/2024 Telephone [facility] [address] [place] [address] Luis Santos DO Results (Overnight Oximetry On Room Air, with CPAP, 02/05/24) 02/06/2024 Orders Only [facility] [address] [place] [address] Luis Santos DO 1 scan: (1-Ord) Overnight Oximetry, On Room Air, with CPAP, 02/05/24 02/05/2024 2:30 PM CDT Office Visit [facility] [address] [place] [address] Paolo Limon MD Sleep Follow-up; Medication List Update (Awaiting Zepbound approval from insurance) 02/05/2024 Travel 02/05/2024 Telephone [facility] [address] [place] [address] Paolo Limon MD Questions (C pap machine ) 02/03/2024 Telephone [facility] [address] [place] [address] Geronimo Lamb MD Questions (Plan of care) 01/23/2024 Telephone [facility] [address] [place] [address] Geronimo Lamb MD Prior Authorization (tirzepatide, weight loss, (Zepbound) 2.5 mg/0.5 mL pen EXCLUDED) 01/22/2024 1:50 PM CDT Orders Only [facility] [address] [place] [address] Lab, Appv Lab 01/22/2024 12:45 PM CDT Office Visit [facility] [address] [place] [address] Luis Santos DO Consult (Lung Damage since COVID-19) 01/22/2024 Telephone [facility] [address] [place] [address] Luis Santos DO Testing (Needs PFT, esophagram, CT chest) 01/22/2024 Travel 01/20/2024 2:55 PM CDT Office Visit [facility] [address] [place] [address] Geronimo Lamb MD Follow Up 01/20/2024 Travel 01/03/2024 Refill [facility] [address] [place] [address] Geronimo Lamb MD Refill Request (Myrbetriq) from Last 3 Months Immunizations Name Administration [...] Description 03/15/2024 9:00 AM CDT Orders Only [facility] [address] [place] [address] Lab, [place] 03/19/2024 1:15 PM CDT Office Visit [facility] [address] [place] [address] Geronimo Lamb MD [address] [place] [address] 04/08/2024 1:00 PM DESOLDERER Appointment [facility] [address] [facility] First Floor [place], [place] [id number] Shazia Li, LENI [address] [place] [address] 05/12/2024 2:00 PM DESOLDERER Office Visit [facility] [address] [place] [address] Paolo Limon MD [address] [place] [address] Health Maintenance Due Date Last Done Comments Pap test for age 21-65 04/16/2014 04/16/2011 (Declin ed) Tetanus booster 10/29/2020 10/29/2010 Colonoscopy through age 75 2022 Mammogram for age 45-75 2022 02/24/2019, 02/16 COVID-19 vaccine series ( season) 2024 03/19/2023, 05/01/2022, 08/29/2021, Additional history exists Influenza for age 9-49 01/25/2024 3, 05/01/2022, 03/09/2018, Additional history exists Depression screening [...] Procedure Name Priority Date/Time Associated Diagnosis Comments COMPLETE PULMONARY FUNCTION TEST WITH BRONCHODILATOR Routine 02/25/2024 10:30 AM CDT Wheezing HEMOGLOBIN Today 02/25/2024 9:50 AM CDT XR ESOPHAGUS Routine 02/25/2024 9:[address] CHEST HIGH RESOLUTION WO Routine 02/25/2024 8:58 AM CDT Small airways disease SCAN-RADIOLOGY REPORT 02/24/2024 12:00 AM CDT AMB CONSULT TO HOME OXYGEN AND DME [...] A1C Routine 01/20/2024 4:00 PM CDT Prediabetes ANTI HIV 1/2 Routine 05/01/2022 4:36 PM DESOLDERER Encounter for screening for HIV ANTI HCV Routine 12/05/2021 9:30 AM CDT Need for hepatitis C screening test SCAN-MAMMOGRAPHY REPORT 02/24/2019 12:00 AM CDT from Last 3 Months or Most Recently Relevant to Health Maintenance Results * COMPLETE PULMONARY FUNCTION TEST WITH BRONCHODILATOR (02/25/2024 10:30 AM CDT) Narrative [facility] NOW - 02/25/2024 10:30 AM CDT Luis Santos, DO ? 02/26/2024 ??5:11 PM RESULTS: INTERPRETATION: Restrictive lung disease is present No evidence of airflow obstruction No significant bronchodilator response Hyperinflation is present Severe reduction in DLCO PFT classifies physiology, correlate clinically for diagnosis and therapy. Reference values: GLI (Global Lung Function Initiative) reference equations used for spirometry, lung volumes, and diffusion. Defining normal range: Lower limit of normal/LLN = 5th percentile Upper limit of normal/ULN= 95th percentile 90% of measures are between +1.64 and -1.64 Severity of physiologic impairment: Z score (how many standard deviations a subject is deviated from its reference value) used for all measures Mild -1.65 to -2.5 Moderate -2.5 to -4 Severe ??<4.1 Bronchodilator response: > 10% of predicted value in FEV1 or FVC Airflow obstruction: FEV1/FVC less than 5th percentile For COPD: GOLD guidelines recommend an FEV1/FVC ratio of <0.7 to define obstruction. Alayna Santos DO [facility] Luis Santos DO PFT ORD [facility] [place], [place] * HEMOGLOBIN (02/25/2024 9:50 AM CDT) [facility] Signature HEMOGLOBIN 12.1 12.0 - 16.0 g/dL 02/25/2024 9:53 AM CDT [facility] MCV 92 80 - 100 fL 02/25/2024 9:53 AM CDT [facility] Blood BLOOD SPECIMEN / Unknown Venipuncture / Unknown 02/25/2024 9:50 AM CDT 02/25/2024 9:50 AM CDT Luis Santos DO HEMATOLOGY [facility] [address] [place] [address], * XR ESOPHAGUS (02/25/2024 9:20 AM CDT) Anatomical Region Laterality Modality Esophagus Radio Fluoroscop y, Radiographic Imaging 02/25/2024 9:20 AM CDT Impressions 02/25/2024 10:05 AM CDT 1. ??Mild esophageal dysmotility. 2. ??Otherwise normal esophagram without stricture or mass lesion. Narrative 02/25/2024 10:05 AM CDT For Patients: As a result of the Cures Act, medical imaging exams and procedure reports are released immediately into your electronic medical record. You may view this report before your referring provider. If you have questions, please contact your health care provider. EXAM: XR ESOPHAGUS LOCATION: [facility] DATE: 02/25/2024 INDICATION: Wheezing and dysphagia. COMPARISON: None. TECHNIQUE: Routine. RADIATION DOSE: RACHEL 41.9 mGy FINDINGS: ESOPHAGUS: The esophagus is normal in course and caliber without stricture or mucosal or mass lesion identified. There is mild esophageal dysmotility with recurrent proximal escape and delayed secondary peristalsis with upright drinking which reproduced the patient's symptoms in the neck despite the barium in the mid and distal esophagus. Prone drinking demonstrate a normal primary stripping wave without proximal escape or tertiary contractions. No hiatal hernia is seen. No gastroesophageal reflux in the supine position with Valsalva maneuver. Procedure Note Pramod Madera MD - 02/25/2024 For Patients: As a result of the Cures Act, medical imagingexams and procedure reports are released immediately into your electronicmedical record. You may view this report before your referring provider.If you have questions, please contact your health care provider. EXAM: XR ESOPHAGUS LOCATION: [facility] DATE: 02/25/2024 INDICATION: Wheezing and dysphagia. COMPARISON: None. TECHNIQUE: Routine. RADIATION DOSE: RACHEL 41.9 mGy FINDINGS: ESOPHAGUS: The esophagus is normal in course and caliber without strictureor mucosal or mass lesion identified. There is mild esophageal dysmotilitywith recurrent proximal escape and delayed secondary peristalsis withupright drinking which reproduced the patient's symptoms in the neckdespite the barium in the mid and distal esophagus. Prone drinkingdemonstrate a normal primary stripping wave without proximal escape ortertiary contractions. No hiatal hernia is seen. No gastroesophagealreflux in the supine position with Valsalva maneuver. IMPRESSION: 1. Mild esophageal dysmotility. 2. Otherwise normal esophagram without stricture or mass lesion. Luis Santos DO FLUOROSCOPY * CT CHEST HIGH RESOLUTION WO (02/25/2024 8:58 AM CDT) Anatomical Region Laterality Modality CHEST, THORAX, HEART Computed To mography 02/25/2024 8:58 AM CDT Impressions 02/26/2024 7:35 AM CDT 1. ??Findings of small airways disease with moderate patchy gas trapping on expiration. Mild airway thickening also noted. No bronchiectasis. 2. ??No fibrotic interstitial lung disease. 3. ??Mild pulmonary trunk enlargement; correlate for pulmonary hypertension. 4. ??Cholelithiasis. Narrative 02/26/2024 7:35 AM CDT For Patients: As a result of the Cures Act, medical imaging exams and procedure reports are released immediately into your electronic medical record. You may view this report before your referring provider. If you have questions, please contact your health care provider. EXAM: CT CHEST HIGH RESOLUTION WO LOCATION: [facility] DATE: 02/25/2024 INDICATION: Shortness of breath. Small airways disease. COMPARISON: 07-11-21 XR. TECHNIQUE: High resolution images were obtained through the chest during inspiration with select expiratory views. Prone imaging was performed. Multiplanar reformats were obtained. Dose reduction techniques were used. CONTRAST: None. FINDINGS: LUNGS AND PLEURA: Mosaic attenuation with moderate patchy gas trapping identified on expiration. Mild airway thickening. No definite CT evidence for tracheobronchomalacia. Mild scattered bandlike areas of atelectasis or scarring. Incidental calcified right upper lobe granuloma. No reticulation or honeycombing. MEDIASTINUM/AXILLAE: No adenopathy. Nonaneurysmal aorta. Pulmonary trunk measures 3.2 cm. Normal heart size. No pericardial effusion. CORONARY ARTERY CALCIFICATION: Motion artifact. Nothing seen. UPPER ABDOMEN: Cholelithiasis. MUSCULOSKELETAL: Bony demineralization. Procedure Note Rad Braga, DO - 02/26/2024 For Patients: As a result of the Cures Act, medical imagingexams and procedure reports are released immediately into your electronicmedical record. You may view this report before your referring provider.If you have questions, please contact your health care provider. EXAM: CT CHEST HIGH RESOLUTION WO LOCATION: [facility] DATE: 02/25/2024 INDICATION: Shortness of breath. Small airways disease. COMPARISON: 07-11-21 XR. TECHNIQUE: High resolution images were obtained through the chest duringinspiration with select expiratory views. Prone imaging was performed.Multiplanar reformats were obtained. Dose reduction techniques wereused. CONTRAST: None. FINDINGS: LUNGS AND PLEURA: Mosaic attenuation with moderate patchy gas trappingidentified on expiration. Mild airway thickening. No definite CT evidencefor tracheobronchomalacia. Mild scattered bandlike areas of atelectasis orscarring. Incidental calcified right upper lobe granuloma. No reticulationor honeycombing. MEDIASTINUM/AXILLAE: No adenopathy. Nonaneurysmal aorta. Pulmonary trunkmeasures 3.2 cm. Normal heart size. No pericardial effusion. CORONARY ARTERY CALCIFICATION: Motion artifact. Nothing seen. UPPER ABDOMEN: Cholelithiasis. MUSCULOSKELETAL: Bony demineralization. IMPRESSION: 1. Findings of small airways disease with moderate patchy gas trapping onexpiration. Mild airway thickening also noted. No bronchiectasis. 2. No fibrotic interstitial lung disease. 3. Mild pulmonary trunk enlargement; correlate for pulmonaryhypertension. 4. Cholelithiasis. Luis Santos DO CT * SCAN-RADIOLOGY REPORT (02/24/2024 12:00 AM CDT) Anatomical Region Laterality Modality Other Scanner OTHER * AMB CONSULT TO HOME OXYGEN AND DME (02/05/2024) Luis Santos DO AMB REFERRAL/CONSU LT ORD * RESPIRATORY DISEASE ALLERGY PROFILE (01/22/2024 2:02 PM CDT) Alternaria Alternata IGE <0.10 <=0.35 kU/L 01/29/2024 2:13 PM CDT [facility] Aspergillus Fumigatus (M3) IGE <0.10 <=0.35 kU/L 01/29/2024 2:13 PM CDT [facility] Birch (T3) IgE <0.10 <=0.35 kU/L 01/29/2024 2:13 PM CDT [facility] Cat Dander (E1) IgE <0.10 <=0.35 kU/L 01/29/2024 2:13 PM CDT [facility] Cladosporium herbarum (M2) IgE <0.10 <=0.35 kU/L 01/29/2024 2:13 PM CDT [facility] Cockroach (I6) IgE <0.10 <=0.35 kU/L 01/29/2024 2:13 PM CDT [facility] Common Ragweed (W1) IgE <0.10 <=0.35 kU/L 01/29/2024 2:13 PM CDT [facility] D. Farinae (D2) IgE <0.10 <=0.35 kU/L 01/29/2024 2:13 PM CDT [facility] D. Pteronyssinus (D1) IgE <0.10 <=0.35 kU/L 01/29/2024 2:13 PM CDT [facility] Dog Dander (E5) IgE <0.10 <=0.35 kU/L 01/29/2024 2:13 PM CDT [facility] Elm (T8) IgE <0.10 <=0.35 kU/L 01/29/2024 2:13 PM CDT [facility] IMMUNOGLOBULIN E (IGE) 59.2 22.0 - 107.0 kU/L 01/29/2024 2:13 PM CDT [facility] MAPLE (BOX ELDER) (T1) IGE <0.10 <=0.35 kU/L 01/29/2024 2:13 PM CDT [facility] ORCHARD GRASS (G3) IGE <0.10 <=0.35 kU/L 01/29/2024 2:13 PM CDT [facility] RED TOP (BENT) GRASS (G9) IGE <0.10 <=0.35 kU/L 01/29/2024 2:13 PM CDT [facility] ROUGH VALENTINE ELDER (W16) IGE <0.10 <=0.35 kU/L 01/29/2024 2:13 PM CDT [facility] [place] (T7) IGE <0.10 <=0.35 kU/L 01/29/2024 2:13 PM CDT [facility] Blood BLOOD SPECIMEN / Unknown Venipuncture / Unknown 01/22/2024 2:02 PM CDT 01/22/2024 2:03 PM CDT Luis Santos DO SEND OUTS Performing Organization Address [facility] Co de Phone Number [facility] [address] [place] [address], [place] * IMMUNOGLOBULIN E,IGE (01/22/2024 2:02 PM CDT) IMMUNOGLOBULIN E (IGE) 55.3 22.0 - 107.0 kU/L 01/27/2024 1:59 PM CDT [facility] Blood BLOOD SPECIMEN / Unknown Venipuncture / Unknown 01/22/2024 2:02 PM CDT 01/22/2024 2:03 PM CDT Luis Santos DO CHEMISTRY Performing Organization Address [facility] Co de Phone Number [facility] [address] [address], [place] * QFT MITOGEN PERFORMABLE (01/20/2024 4:00 PM CDT) MITOGEN 4.85 IU/mL 01/22/2024 12:48 PM CDT [facility] Blood BLOOD SPECIMEN / Unknown Venipuncture / Unknown 01/20/2024 4:00 PM CDT 01/20/2024 4:00 PM CDT Geronimo Lamb MD CHEMISTRY Performing Organization Address [facility] Co de Phone Number [facility] [address] [address], [place] * QFT TB2 PERFORMABLE (01/20/2024 4:00 PM CDT) TB2 0.01 IU/mL 01/22/2024 10:03 AM CDT [facility] Blood BLOOD SPECIMEN / Unknown Venipuncture / Unknown 01/20/2024 4:00 PM CDT 01/20/2024 4:00 PM CDT Geronimo Lamb MD CHEMISTRY Performing Organization Address City/[facility]/ZIP Co de Phone Number [facility] [address] [place] [address], [place] * QFT TB1 PERFORMABLE (01/20/2024 4:00 PM CDT) TB1 0.01 IU/mL 01/22/2024 10:04 AM CDT [facility] Blood BLOOD SPECIMEN / Unknown Venipuncture / Unknown 01/20/2024 4:00 PM CDT 01/20/2024 4:00 PM CDT Geronimo Lamb MD CHEMISTRY Performing Organization Address City/[facility]/ZIP Co de Phone Number [facility] [address] [place] [address], [place] * QUANTIFERON TB GOLD PLUS (01/20/2024 4:00 PM CDT) Pathologist [facility] QFTP NIL 0.00 01/22/2024 2:20 PM CDT [facility] TB1 0.01 IU/mL 01/22/2024 2:20 PM CDT [facility] TB2 0.01 IU/mL 01/22/2024 2:20 PM CDT [facility] MITOGEN 4.85 IU/mL 01/22/2024 2:20 PM CDT [facility] QFTP TB AG1 - NIL 0.01 024 2:20 PM CDT [facility] TB1-NIL % OF NIL 01/22/20 24 2:20 PM CDT [facility] Comment:Unable to calculate QFTP TB AG2 - NIL 0.01 024 2:20 PM CDT [facility] TB2-NIL % OF NIL 01/22/20 24 2:20 PM CDT [facility] Comment:Unable to calculate QFTP MITOGEN - NIL 4.85 2023 2:20 PM CDT [facility] QFTP QUANTIFERON INTERPRETATION Negative Negative 01/22/2024 2:20 PM CDT [facility] Blood BLOOD SPECIMEN / Unknown Venipuncture / Unknown 01/20/2024 4:00 PM CDT 01/20/2024 4:00 PM CDT Narrative [facility] - 01/22/2024 2:20 PM CDT M. tuberculosis [...] old. - women Geronimo Lamb MD CHEMISTRY [facility] [address] [place] [address], * HEMOGLOBIN A1C SCREENING (01/20/2024 4:00 PM CDT) HEMOGLOBIN A1C SCREENING 6.1 <=6.4 % 01/21/2024 9:15 AM CDT [facility] Blood BLOOD SPECIMEN / Unknown Venipuncture / Unknown 01/20/2024 4:00 PM CDT 01/20/2024 4:00 PM CDT Narrative [facility] - 01/21/2024 9:15 AM CDT ? (<5.7%) ?Normal ? (5.7% to 6.4%) ? Indicates prediabetes ? (>=6.5%) ? Confirms diabetes Falsely low levels may be seen with: Recent Transfusion, Recent Significant Blood Loss, Hemolytic Diseases, or Falsely elevated levels may be seen with: Untreated Anemias, Splenectomy Geronimo Lamb MD CHEMISTRY Performing Organization Address [facility] de Phone Number [facility] [address] [place] [phone], * TSH WITH REFLEX (01/20/2024 4:00 PM CDT) Pathologist [facility] TSH 0.64 0.27 - 4.20 uIU/mL 01/21/2024 1:44 PM CDT [facility] Blood BLOOD SPECIMEN / Unknown Venipuncture / Unknown 01/20/2024 4:00 PM CDT 01/20/2024 4:00 PM CDT Narrative [facility] - 01/21/2024 1:44 PM CDT In Adults, TSH values between 5.00 and 10.00 uIU/ml do not necessarily indicate the presence of Hypothyroidism. Correlation with clinical findings such as presence of goiter and/or Thyroperoxidase (TPO) Antibody may be helpful. For more information please refer to SIVAN 2004; 291: 228-238. Geronimo Lamb MD CHEMISTRY Performing Organization Address [facility] de Phone Number [facility] [address] [place] [id number], * (ABNORMAL) LIPID PANEL W REFLEX MEASURED LDL (01/20/2024 4:00 PM CDT) Pathologist [facility] CHOLESTEROL,TOTAL 261(H) 100 - 199 mg/dL 01/21/2024 1:44 PM CDT [facility] Comment: Cholesterol, Total Reference Ranges Desirable <200 mg/dL Borderline 200-239 mg/dL High >=240 mg/dL TRIGLYCERIDES 252(H) <150 mg/dL 01/21/2024 1:44 PM CDT [facility] HDL CHOLESTEROL 50 >40 mg/dL 1:44 PM CDT [facility] NON-HDL CHOLESTEROL 211(H) <145 mg/dl 01/21/2024 1:44 PM CDT [facility] CHOL/HDL RATIO 5.22(H) <4.50 01/21/2024 1:44 PM CDT [facility] LDL CHOLESTEROL 161(H) <=130 mg/dL 01/21/2024 1:44 PM CDT [facility] VLDL CHOLESTEROL 50(H) <=30 mg/dL 01/21/2024 1:44 PM CDT [facility] PROVIDER ORDERED STATUS RANDOM 01/21/2024 1:44 PM CDT [facility] Blood BLOOD SPECIMEN / Unknown Venipuncture / Unknown 01/20/2024 4:00 PM CDT 01/20/2024 4:00 PM CDT Geronimo Lamb MD CHEMISTRY [facility] [address] [place] [id number], * BASIC METABOLIC PANEL (01/20/2024 4:00 PM CDT) SODIUM 139 136 - 145 mmol/L 01/21/2024 1:44 PM CDT [facility] POTASSIUM 4.0 3.5 - 5.1 mmol/L 01/21/2024 1:44 PM CDT [facility] CHLORIDE 100 98 - 107 mmol/L 01/21/2024 1:44 PM CDT [facility] CO2,TOTAL 28 22 - 29 mmol/L 01/21/2024 1:44 PM CDT [facility] ANION GAP 11 5 - 18 01/21/2024 1:44 PM CDT [facility] GLUCOSE 98 70 - 99 mg/dL 01/21/2024 1:44 PM CDT [facility] CALCIUM 9.2 8.6 - 10.0 mg/dL 01/21/2024 1:44 PM CDT [facility] BUN 12 6 - 20 mg/dL 01/21/2024 1:44 PM CDT [facility] CREATININE 0.79 0.50 - 0.90 mg/dL 01/21/2024 1:44 PM CDT [facility] BUN/CREAT RATIO 15 10 - 20 1:44 PM CDT [facility] eGFR >90 >90 mL/min/1.7 3m2 01/21/2024 1:44 PM CDT [facility] Comment:As of 2021, eG FR [...] 4:00 PM CDT Geronimo Lamb MD CHEMISTRY [facility] [address] [place] [address], * ANTI HIV 1/2 (05/01/2022 4:36 PM DESOLDERER) HIV-1/HIV-2 ANTIBODY Non-Reacti ve Non-Reacti ve 05/04/2022 9:59 PM DESOLDERER [facility] Comment:HIV-1 p24 and HIV-1/ HIV-2 Ab not detected. Blood BLOOD SPECIMEN / Unknown Butterfly / Unknown 05/01/2022 4:36 PM DESOLDERER 05/01/2022 4:41 PM DESOLDERER Geronimo Lamb MD SEND OUTS [facility] [address] [place] [address], [place] * ANTI HCV (12/05/2021 9:30 AM CDT) HEPATITIS C ANTIBODY Non-React shikha Non-React shikha 12/05/2021 9:16 PM CDT [facility] Comment:Antibodies to HCV no t detected; does not exclude the possibility of exposure to HCV. Blood BLOOD SPECIMEN / Unknown Venipuncture / Unknown 12/05/2021 9:30 AM CDT 12/05/2021 9:33 AM CDT Geronimo Lamb MD SEND OUTS [facility] [address] [place] [address], [place] * SCAN-MAMMOGRAPHY REPORT (02/24/2019 12:00 AM CDT) Anatomical Region Laterality Modality Other Scanner OTHER from Last 3 Months or Most Recently Relevant to Health Maintenance Care Teams Metal Bonding Worker Relationship Specialty Start Date End Date Geronimo Lamb MD [address] [place], [place] [id number] PCP - General Family Practice 04/23/21 Paolo Limon MD Sleep Medicine 10/28/11 Talon Durham MD Neurology Neurology 11/26/11 Laura Gardner PsyD, Psychology 09/14/13 [place] [address] [place] [address] Pulmonology Pulmonary Medicine 01/22/24
--- OUTSIDE RECORDS SUMMARY | 2024-02-27 14:16 | XMS_ITS | Clinical Summary ---
Author Organization [facility] Address [address] [place] [address] Care Team Providers Care Gas Meter Reader Name Role Phone Elsewhere, Pcp Primary Care Provider Unavailabl e Source Comments Patient records contain information from all sites at [facility]. For routine questions regarding patient records, call [phone] during business hours, M-F 8:00 AM - 5:00 PM Central Time. Record requests for emergency care only can be directed to [phone] at any time.[facility] Allergies Active Allergy Reactions Criticality Noted Date [...] Sex Assigned at Female 06/02/2018 2:11 PM SPRAY GUN REPAIRER HELPER Gender Identity Female 06/02/2018 2:11 PM SPRAY GUN REPAIRER HELPER Sexual Orientation Choose not to disclose 2018 2:11 PM SPRAY GUN REPAIRER HELPER Last Filed Vital Signs Vital Sign [...] 023, 09/14/2013 Medical Devices Implanted Type Area Log Manager Device Identifier Shelf Expiration Date Model / Serial / Lot Ear Implant- 011 Implanted:11/24 (Quantity not on file) Ear Implant Ear [facility] Bernice Vega TORP Plasti-pore [id number] / / [id number] Description:[facility], [place], [place]. Ear implant-Vega TOPR Plasti-pore MRI Safe Procedures Procedure Name Priority Date/Time Associated Diagnosis Comments THYROID-STIMULATING HORMONE-SENSITIVE (S-TSH) Routine 10/27/2018 3:42 PM CDT Hypothyroidism Primary BASIC METABOLIC PANEL, S/P Routine 03/11/2018 1:58 PM CDT Dizziness Diplopia LIPID PANEL, S Routine 06/10/2016 10:40 AM SPRAY GUN REPAIRER HELPER from Last 3 Months or Most Recently Relevant to Health Maintenance Results * (ABNORMAL) S-TSH (Thyroid-Stimulating Hormone - Sensitive) (10/27/2018 3:42 PM CDT) TSH, Sensitive 10.7(H) 0.3 - 4.2 mIU/L 10/27/2018 5:20 PM CDT Comment: Biotin has been identified by the professor of visual arts as a potential interfering substance. ??Higher concentrations of biotin may be found in multivitamins, hair/nail supplements, and workout supplements. ??If the result does not match clinical observations, repeat testing after patient refrains from the use of supplements for at least 12 hours. Blood (Blood, Venous) 10/27/2018 3:42 PM CDT 10/27/2018 3:43 PM CDT Deanne Tsang P.A.-C. LAB BLOOD ADD-O N Performing Organization Address City/State/[facility] Co de Phone Number [facility] [address] * Basic Metabolic Panel (03/11/2018 1:58 PM CDT) Potassium, S 4.0 3.6 - 5.2 mmol/L 03/11/2018 2:[address] [facility] Sodium, S 141 135 - 145 mmol/L 03/11/2018 2:29 [address] [facility] Chloride, S 101 98 - 107 mmol/L 03/11/2018 2:29 PM CD[address] [facility] Bicarbonate, S 27 22 - 29 mmol/L 03/11/2018 2:29 PM CD[address] [facility] Anion Gap 13 7 - 15 03/11/2018 2:29 PM CD[address] [facility] BUN (Blood Urea Nitrogen), S 12 6 - 21 mg/dL 03/11/2018 2:29 PM CD[address] [facility] Creatinine 0.62 0.59 - 1.04 mg/dL 03/11/2018 2:29 PM [address] [facility] eGFR-Non Black/ >90 >=60 mL/min/BSA 03/11/2018 2:29 PM [address] [facility] Comment: ----ADDITIONAL INFORMATION---- Estimated GFR calculated using the 2009 CKD_EPI creatinine equation. eGFR-Black/Afri can Citizen Of [place] >90 >=60 mL/min/BSA 03/11/2018 2:29 PM [address] [facility] Comment: ----ADDITIONAL INFORMATION---- Estimated GFR calculated using the 2009 CKD_EPI creatinine equation. Calcium, Total, S 9.4 8.6 - 10.0 mg/dL 03/11/2018 2:29 PM [address] [facility] Glucose, S 95 70 - 140 mg/dL 03/11/2018 2:29 [address] [facility] Blood (Blood, Venous) 03/11/2018 1:58 PM CDT 03/11/2018 1:58 PM CDT Deanne Tsang P.A.-C. LAB BLOOD ADD-O N Performing Organization Address City/State/[facility] Co de Phone Number [facility] [address] * (ABNORMAL) Lipid Panel (06/10/2016 10:40 AM SPRAY GUN REPAIRER HELPER) Pathologist [facility] Cholesterol, Total 275(H) <=199 MGDL POWERCHART [...] for FH and FDB is available through [employer]: FH/ADH Genetic Reflex Panel (test ADHP). Acquired (non-genetic) causes of markedly increased LDL cholesterol include cholestatic liver disease due to the presence of LpX. If a genetic form of hypercholesterolemia is suspected, family studies including biochemical testing for lipids (total cholesterol,triglycerides, LDL cholesterol and HDL cholesterol) are recommended. ??Please contact the laboratory at or the on-line test catalog at [employer] for information about how to order these tests or to speak with a genetic counselor. Further interpretation would require clinical information. Total Cholesterol/HDL Ratio 5 POWERCHART Blood 06/10/2016 10:4 0 AM SPRAY GUN REPAIRER HELPER Ana Chery M.D. LAB BLOOD ADD-O N POWERCHART from Last 3 Months or Most Recently Relevant to Health Maintenance Care Teams Gas Meter Reader Relationship Specialty Start Date End Date Elsewhere, Pcp PCP - General Internal Medicine 12/04/18
--- OUTSIDE RECORDS SUMMARY | 2024-02-27 14:16 | XMS_ITS ---
Author Organization [facility] Address [address] [place] [address] Care Team Providers Care Telegraph Service Clerk Name Role Phone Unavailable Unavailable Unavailable Surgery Details Not on file Complications Check Surgery Details section. Procedure Estimated Blood Loss Check Surgery Details section. Procedure Findings Check Surgery Details section. Procedure Specimens Taken Check Surgery Details section.
--- OUTSIDE RECORDS SUMMARY | 2024-02-27 14:16 | XMS_ITS | Referral Summary ---
Author Organization [facility] Address [address] [place] [address] Care Team Providers Care Aesthetics Instructor Name Role Phone Elsewhere, Pcp Primary Care Provider Unavailabl e Source Comments Patient records contain information from all sites at [facility]. For routine questions regarding patient records, call [phone] during business hours, M-F 8:00 AM - 5:00 PM Central Time. Record requests for emergency care only can be directed to [phone] at any time.[facility] Allergies [...] Sex Assigned at Female 06/02/2018 2:11 PM SHIP'S ELECTRONIC WARFARE OFFICER Gender Identity Female 06/02/2018 2:11 PM SHIP'S ELECTRONIC WARFARE OFFICER Sexual Orientation Choose not to disclose 2018 2:11 PM SHIP'S ELECTRONIC WARFARE OFFICER Last Filed Vital Signs Vital Sign Reading [...] on file Medical Devices Implanted Type Area Canteen Manager Device Identifier Shelf Expiration Date Model / Serial / Lot Ear Implant- 011 Implanted:11/24 (Quantity not on file) Ear Implant Ear [employer] Bernice Vega TORP Plasti-pore [id number] / / [id number] Description:[facility], [place], [place]. Ear implant-Vega TOPR Plasti-pore MRI Safe Procedures Procedure Name Priority Date/Time Associated Diagnosis Comments THYROID-STIMULATING HORMONE-SENSITIVE (S-TSH) Routine 10/27/2018 3:42 PM CDT Hypothyroidism Primary BASIC METABOLIC PANEL, S/P Routine 03/11/2018 1:58 PM CDT Dizziness Diplopia LIPID PANEL, S Routine 06/10/2016 10:40 AM SHIP'S ELECTRONIC WARFARE OFFICER from Last 3 Months or Most Recently Relevant to Health Maintenance Results * (ABNORMAL) S-TSH (Thyroid-Stimulating Hormone - Sensitive) (10/27/2018 3:42 PM CDT) TSH, Sensitive 10.7(H) 0.3 - 4.2 mIU/L 10/27/2018 5:20 PM CDT Comment: Biotin has been identified by the lead assembler as a potential interfering substance. ??Higher concentrations of biotin may be found in multivitamins, hair/nail supplements, and workout supplements. ??If the result does not match clinical observations, repeat testing after patient refrains from the use of supplements for at least 12 hours. Blood (Blood, Venous) 10/27/2018 3:42 PM CDT 10/27/2018 3:43 PM CDT Deanne Tsang P.A.-C. LAB BLOOD ADD-O N [facility] [address] * Basic Metabolic Panel (03/11/2018 1:58 PM CDT) Pathologist [facility] Potassium, S 4.0 3.6 - 5.2 mmol/L 03/11/2018 2:29 PM CDT [facility] Sodium, S 141 135 - 145 mmol/L 03/11/2018 2:29 PM CDT [facility] Chloride, S 101 98 - 107 mmol/L 03/11/2018 2:29 PM CDT [facility] Bicarbonate, S 27 22 - 29 mmol/L 03/11/2018 2:29 PM CDT [facility] Anion Gap 13 7 - 15 03/11/2018 2:29 PM CDT [facility] BUN (Blood Urea Nitrogen), S 12 6 - 21 mg/dL 03/11/2018 2:29 PM CDT [facility] Creatinine 0.62 0.59 - 1.04 mg/dL 03/11/2018 2:29 PM CDT [facility] eGFR-Non Black/ >90 >=60 mL/min/BSA 03/11/2018 2:29 PM CDT [facility] Comment: ----ADDITIONAL INFORMATION---- Estimated GFR calculated using the 2009 CKD_EPI creatinine equation. eGFR-Black/Afri can Zambian >90 >=60 mL/min/BSA 03/11/2018 2:29 PM CDT [facility] Comment: ----ADDITIONAL INFORMATION---- Estimated GFR calculated using the 2009 CKD_EPI creatinine equation. Calcium, Total, S 9.4 8.6 - 10.0 mg/dL 03/11/2018 2:29 PM CDT [facility] Glucose, S 95 70 - 140 mg/dL 03/11/2018 2:29 PM CDT [facility] Blood (Blood, Venous) 03/11/2018 1:58 PM CDT 03/11/2018 1:58 PM CDT Deanne Tsang P.A.-C. LAB BLOOD ADD-O N Performing Organization Address City/State/[facility] Co de Phone Number [facility] [address] [place] [address], [facility] * (ABNORMAL) Lipid Panel (06/10/2016 10:40 AM SHIP'S ELECTRONIC WARFARE OFFICER) Cholesterol, Total 275(H) <=199 MGDL POWERCHART Comment: [...] for FH and FDB is available through [employer]: FH/ADH Genetic Reflex Panel (test ADHP). Acquired (non-genetic) causes of markedly increased LDL cholesterol include cholestatic liver disease due to the presence of LpX. If a genetic form of hypercholesterolemia is suspected, family studies including biochemical testing for lipids (total cholesterol,triglycerides, LDL cholesterol and HDL cholesterol) are recommended. ??Please contact the laboratory at or the on-line test catalog at [employer] for information about how to order these tests or to speak with a genetic counselor. Further interpretation would require clinical information. Total Cholesterol/HDL Ratio 5 POWERCHART Blood 06/10/2016 10:4 0 AM SHIP'S ELECTRONIC WARFARE OFFICER Ana Chery M.D. LAB BLOOD ADD-O N POWERCHART from Last 3 Months or Most Recently Relevant to Health Maintenance Care Teams Aesthetics Instructor Relationship Specialty Start Date End Date Elsewhere, Pcp PCP - General Internal Medicine 12/04/18
== END 2024-02-24 02:37 | disposition home or self-care (01) ==
LOC: AMB 02-27 14:14
PROVIDERS: PCP Family Medicine; Visit Provider Family Medicine
DX: R06.09 Other forms of dyspnea (principal)
CPT/HCPCS: A0425; A0427

== ENCOUNTER 2024-02-24 03:00 | Emergency (ER) | payer OTHER, SELFPAY ==
[2024-02-24] VITALS (10 sets, daily range): BP systolic 108–138; BP diastolic 71–84; PULSE 85–95; RESP 20; TEMP 36.6; O2SAT 90–98; BMI 49.8
--- NOTE | 2024-02-24 03:27 | XR_ITS ---
Patient: TASHIA HAZEL Facility:?[facility] Patient ID:?[id number] Site Patient ID:?[id number]. Site :?[id number] Study:?XRay-Chest 2 VIEW-02/24/2024 3:59:05 AM Ordering Physician:Benito Linn Final Report: INDICATION: Dyspnea COMPARISON: June 08, 2023 TECHNIQUE: PA and lateral views of the chest were acquired FINDINGS: TUBES AND LINES: None. HEART AND MEDIASTINUM: The heart size is normal. The mediastinal contour appears normal for patient age. LUNGS AND PLEURAL SPACES: Abnormal vascular and interstitial findings. This is probably due to CHF/edema without is also possible that this is due to a diffuse inflammatory process.Interstitial lung disease is also possible. The pleural spaces are normal. OSSEOUS STRUCTURES: Age-appropriate appearance. No acute focal finding. IMPRESSION: Abnormal vascular and interstitial findings. Favor CHF/edema but this could be a diffuse inflammatory process or interstitial lung disease. Dictated by Darius Ledezma MD @ 02/24/2024 4:18:08 AM Signed by:?Darius Ledezma MD @02/24/2024 4:18:08 AM (Electronic Signature)
--- NOTE | 2024-02-24 03:36 | ED.GENADULT ---
HPI - General Adult General Chief complaint: Shortness of Breath/Dyspnea Stated complaint: shortness of breath Time Seen by Provider: 02/24/24 03:10 Source: patient and EMS Mode of arrival: EMS Limitations: no limitations History of Present Illness HPI narrative: 48-year-old female well known to our service with history of chronic respiratory failure typically on 2 L of nasal cannula oxygen presents the emergency department for evaluation of dyspnea. She recently moved in to [place] and does not yet have orders. She ran out of her nebs this evening, which she knows is not ideal for her. She started feeling more short of breath. EMS reporting that her oxygen sats were in the high 70s on room air upon their arrival. Rather than apply nasal cannula, they went straight BiPAP. They applied a neb on route. She reports that it is feeling quite a bit better already. She has been having upper respiratory infection symptoms for the past 10 days. No obvious fever. No productive cough. She has no history of DVT or PE per her report. She is not anticoagulated. States that there have not been any other lapses in her medications besides the neb. no trauma or injury, not having any chest pain. No palpitations. No history of arrhythmia or heart failure. Is typically on 2 L at baseline but does not use BiPAP typically. She has quickly weaned off of the BiPAP onto nasal cannula oxygen here in the ED. no recent use of steroids, no pertinent travel. I have cared for patient in the past but most recent ED notes are reviewed. Does report some increased stress due to family changes and moving into assisted living. Past medical history is most notable for obstructive sleep apnea, chronic respiratory failure, anxiety, pseudoseizures. Medications reviewed from prior records, she states that these are stable. No orders came from her current assisted living. Allergies reviewed, unchanged. ROS is notable for the respiratory symptoms as above, recent URI as well, otherwise denies times 12 systems. Related Data Home Medications ?Medication ?Instructions ?Recorded ?Confirmed albuterol sulfate 90 mcg/actuation 2 puff inhalation Q4H PRN 11/30/21 02/24/24 aerosol inhaler mirabegron 50 mg tablet,extended 50 mg PO DAILY 11/30/21 02/24/24 release 24 hr (Myrbetriq) montelukast 10 mg tablet 10 mg PO HS 11/30/21 02/24/24 omeprazole 20 mg capsule,delayed 40 mg PO DAILY 02/26/22 02/24/24 release levetiracetam 750 mg tablet 750 mg PO BID 11/25/22 02/24/24 (Keppra) cholecalciferol (vitamin D3) 50 50 mcg PO DAILY 01/30/23 02/24/24 mcg (2,000 unit) capsule paroxetine HCl 40 mg tablet 40 mg PO DAILY 01/30/23 02/24/24 levothyroxine 100 mcg tablet 100 mcg PO DAILY 10/16/23 02/24/24 potassium chloride 10 mEq 10 meq PO DAILY 10/16/23 02/24/24 tablet,extended release Previous Rx's ?Medication ?Instructions ?Recorded albuterol sulfate 2.5 mg/3 mL 2.5 mg (3 mL) inhalation Q8H PRN 02/02/23 (0.083 %) solution for nebulization #1 mL budesonide-formoterol HFA 160 2 puff inhalation BID #1 g 02/02/23 mcg-4.5 mcg/actuation aerosol inhaler (Symbicort) furosemide 40 mg tablet 40 mg PO DAILY #30 tabs 02/02/23 tiotropium bromide 2.5 2 puff inhalation DAILY #1 g 02/02/23 mcg/actuation mist for inhalation (Spiriva Respimat) doxycycline hyclate 100 mg capsule 100 mg PO BID #14 caps 02/24/24 prednisone 20 mg tablet 20 mg PO BID #10 tabs 02/24/24 Allergies Allergy/AdvReac Type Severity Reaction Status Date / Time azithromycin Allergy Intermediate Bloody Verified 02/24/24 03:26 Stools latex Allergy Intermediate Rash Verified 02/24/24 03:26 oxycodone Allergy Intermediate Agitated Verified 02/24/24 03:26 scopolamine Allergy Intermediate Tremors Verified 02/24/24 03:26 acetaminophen [From Percocet] Allergy Mild Verified 02/24/24 03:26 basil Allergy Rash Verified 02/24/24 03:26 [facility] Medical History Hypothyroidism ?E03.9 - Hypothyroidism, unspecified (ICD-10) Acute and chronic respiratory failure with hypoxia ?J96.21 - Acute and chronic respiratory failure with hypoxia (ICD-10) 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 - Unspecified convulsions (ICD-10) RODRICK (obstructive sleep apnea) ?G47.33 - Obstructive sleep apnea (adult) (pediatric) (ICD-10) ADHD ?F90.9 - Attention-deficit hyperactivity disorder, unspecified type (ICD-10) Hyperthyroidism ?E05.90 - Thyrotoxicosis, unspecified without thyrotoxic crisis or storm (ICD-10) Hydrocephalus ?G91.9 - Hydrocephalus, unspecified (ICD-10) Hyperlipidemia ?E78.5 - Hyperlipidemia, unspecified (ICD-10) Anxiety and depression ?F41.9 - Anxiety disorder, unspecified (ICD-10) ?F32.A - Depression, unspecified (ICD-10) Asthma ?J45.909 - Unspecified asthma, uncomplicated (ICD-10) Surgical History History of ear surgery ?Z98.890 - Other specified postprocedural states (ICD-10) History of strabismus surgery ?Z98.890 - Other specified postprocedural states (ICD-10) Social History Narrative: on disability since 2009; lives alone with her cat. nonsmoker, no drugs, no significant tobacco history adopted, her two adopted aunts are her family contacts. What is your current living situation?: I presently have a place to live Problems where you live: no known problems Problems where you live details: None In the past 12 months, utilities in danger of being shut off: no In past 12 months, lack of transportation kept you from medical appts, meetings, work, or getting things needed for daily living: no In the past 12 mos, have been you worried that your food would run out before you had money to buy more?: never true In the past 12 mos, the food you bought just didn't last and you didn't have money to buy more?: never true Highest level of school completed/degree received: Associate degree: academic program Smoking Status: Never smoker Do you use any of these nicotine containing products: None Second hand tobacco smoke exposure: No How often do you have a drink containing alcohol: never How often do you have six or more drinks on one occasion: Never AUDIT-C Alcohol total score: 0 Non-prescribed substance use: denies use Caffeine: Yes (Pop ocassionally) How often does anyone, including family, friends and others, physically hurt you: never How often does anyone, including family, friends and others, insult or talk down to you: never How often does anyone, including family, friends and others, threaten you with harm: never How often does anyone, including family, friends and others, scream or curse at you: never service: No Exam Const: Vital Signs, click to edit/add: Vital Signs - 24 hr 02/24/24 03:08 Temperature 97.8 F Pulse Rate [Pulse Oximeter] 92 Respiratory Rate 20 Blood Pressure [Ri ght Forearm] 138/74 Pulse Oximetry 98 Oxygen Delivery Me thod BiPAP Documenting provider has reviewed patient's vital signs: yes Common normals: no apparent distress and alert General appearance: comfortable and well kempt Other: Able speak in complete sentences. No pallor or cyanosis. Short stature, syndromic facial features. HENMT: Common normals: normocephalic Head and scalp: normocephalic Face and sinus: normal facial exam Mouth: oral and palatal mucosa normal Throat: posterior oropharynx normal Eye: Common normals: conjunctivae normal General eye: normal appearance of both eyes Conjunctiva: conjunctiva(e) normal Neck & C-Spine: Common normals: full ROM and no lymphadenopathy Chest: Common normals: inspection of chest normal Resp: Other: Mildly increased respiratory effort. Moderate prolongation of expiration compared to inspiration. Expiratory wheeze present. No crackles. Cardio: Common normals: regular rate, regular rhythm, S1 normal heart sound, S2 normal heart sound and no murmurs Rate: regular rate Rhythm: regular rhythm Heart sounds: S1 normal and S2 normal GI: Common normals: Normal to inspection, nondistended, normoactive bowel sounds present, soft to palpation, non-tender and no hepatosplenomegaly Palpation: soft and no hepatosplenomegaly Extremity: Common normals: normal to inspection, normal capillary refill and no pedal edema Neuro: Sensorium/orientation: alert Speech: speech normal Motor exam: no movement abnormalities noted Psych: Common normals: thought process normal Appearance: well kempt Attitude: engaged Thought process: normal thought process Insight: insight good Judgement: judgment good Skin: Common normals: no rashes or lesions noted General skin exam: no rashes or lesions noted Course Course ED Course: Acute on chronic hypoxia in the setting of recent URI with recent stress and exam consistent with wheezing and asthma exacerbation. Will start 40 mg of IV Solu-Medrol, albuterol neb to follow-up DuoNeb. Typical labs, EKG, chest x-ray. Viral swabs. Await clinical response and findings. May require hospitalization for stabilization if she does not rapidly improve. Will try to wean on to nasal cannula oxygen. Reevaluation(s) Time of Reevaluation #1: 04:39 Reevaluation #1: Patient reports she is feeling quite a bit better. Oxygen levels are persistently 91-92 on her baseline 2 L. She admits that she is using the oxygen at all times now. This is known by her pulmonology team. She admits that she has been missing some of her medications including her Advair and Spiriva the last few days while she is moving. She thinks she knows where they are but can also pick up driver a new supply [facility] She will head there today. She does not know where her nebulizer solution vials are but has all of her remaining pieces as she did last use a nebulizer treatment earlier this evening. Reassuring labs and x-ray are reviewed with patient. She does tend to have findings of chronic appearing interstitial disease typically on her x-ray. This is not unchanged. I am not appreciating any pleural effusion or focal infiltrate. With her significant history, I do recommend an antibiotic. Will start doxycycline 100 mg twice daily, will continue per week post discharge. Will discharge on prednisone 20 mg b.i.d. as well. Patient will receive nebulizer solution to take home with her that she can use in her machine until she can get to the pharmacy later today. She was agreeable to this plan. Assures me she has plenty of refills of all of her other supplies. Oxygen levels have returned to baseline after steroid and neb treatment. Written instructions provided, alarm symptoms reviewed, she verbalized understanding and agreement. Vital Signs Vital signs: Initial Vital Signs Temperature 97.8 F 02/24/24 03:08 Temperature Source Temporal Artery Scan 02/24/24 03:08 Pulse Rate 92 02/24/24 03:08 Pulse Rhythm Regular 02/24/24 03:08 Pulse Strength 3+ Normal 02/24/24 03:08 Respiratory Rate 20 02/24/24 03:08 Blood Pressure 138/74 02/24/24 03:08 Blood Pressure Mean 95 02/24/24 03:08 Blood Pressure Position High-Fowlers 02/24/24 03:08 Pulse Oximetry 98 02/24/24 03:08 Oxygen Delivery Method BiPAP 02/24/24 03:08 Vital Signs Temperature 97.8 F 02/24/24 03:08 Pulse Rate 92 02/24/24 03:08 Respiratory Rate 20 02/24/24 03:08 Blood Pressure 138/74 02/24/24 03:08 Pulse Oximetry 98 02/24/24 03:08 Oxygen Delivery Method BiPAP 02/24/24 03:08 Temperature 97.8 F 02/24/24 03:08 Pulse Rate 92 02/24/24 03:08 Respiratory Rate 20 02/24/24 03:08 Blood Pressure 138/74 02/24/24 03:08 Pulse Oximetry 98 02/24/24 03:08 Oxygen Delivery Method BiPAP 02/24/24 03:08 Medications Administered Medications: Generic Name Dose Route Start Last Admin Trade Name Freq PRN Reason Stop Dose Admin Albuterol 2.5 mg 02/24/24 03:27 02/24/24 04:10 Albuterol Sulfate 2.5 Mg/3 Ml Vial.Neb NEB 02/24/24 03:28 2.5 mg ONCE ONE Administration Methylprednisolone Sodium Succinate 40 mg 02/24/24 03:27 02/24/24 04:10 Methylprednisolone Sod Succ 40 Mg/Ml IVP 02/24/24 03:28 40 mg ONCE ONE Administration Medical Decision Making Lab Data Lab results reviewed: Yes I reviewed the patient's lab results Lab results narrative: Reassuring overall. No severe anemia. Creatinine and electrolytes are at her baseline. Viral swabs are negative. Absolute neutrophil count is a little bit elevated, will add antibiotic because of this. Viral swabs negative. Labs: Lab Results 02/24/24 02/24/24 02/24/24 Range/Units 03:27 03:30 03:40 WBC 9.62 (4.50-11.00) K/uL RBC 4.10 (4.00-5.20) m/uL Hgb 12.0 (12.0-16.0) gm/dL Hct 38.3 (33.0-51.0) % MCV 93 (80-100) fL MCH 29 (26-34) pg MCHC 31 L (32-36) gm/dL RDW Coeff of Tomy 12.8 (11.5-15.5) % Plt Count 182 (140-440) K/uL Neut % (Auto) 73.9 H (42.0-72.0) % Lymph % (Auto) 16.7 L (20-44) % [place] % (Auto) 6.5 (0.0-11.0) % Eos % (Auto) 2.1 (0.0-7.0) % Baso % (Auto) 0.5 (0.0-3.0) % Neut # (Auto) 7.10 H (1.7-7.0) K/uL Lymph # (Auto) 1.60 (0.90-2.90) K/uL [place] # (Auto) 0.60 (0.00-0.90) K/UL Eos # (Auto) 0.20 (0.00-0.50) K/uL Baso # (Auto) 0.05 (0.00-0.30) K/uL Abs Immat Gran (auto) 0.03 (0.00-0.30) K/uL Imm/Tot Granulo (auto) 0.3 % Sodium 141 (135-149) mmol/L Potassium 3.7 (3.6-5.1) mmol/L Chloride 103 (96-114) mmol/L Carbon Dioxide 34 H (20-32) mmol/L Anion Gap 4 L (7-15) mEq/L BUN 12 (5-24) mg/dL Creatinine 0.7 (0.5-1.5) mg/dL Estimated Creat Clear 165.39 Estimated GFR 108 ml/min Glucose 119 H (60-115) mg/dL Calcium 9.0 (8.4-10.6) mg/dL NT-Pro-B Natriuret Pep 474 pg/mL SARS-CoV-2 (PCR) Negative SARS-CoV-2 (Negative) Influenza Type A (PCR) Negative PCR FLU A (Negative) Influenza Type B (PCR) Negative PCR FLU B (Negative) RSV (PCR) Negative PCR RSV (Negative) POC Troponin I 0.01 (0.01-0.04) ng/ml Imaging Data Chest x-ray: Attestation: I have reviewed the pertinent imaging results. My impression: No obvious focal infiltrate or effusion. She does have a bit of a diffuse chronic interstitial lung disease picture but that seems stable from prior x-rays per my interpretation. Radiologist's impression: IMPRESSION: Abnormal vascular and interstitial findings. Favor CHF/edema but this could be a diffuse inflammatory process or interstitial lung disease. Dictated by Darius Ledezma MD @ 02/24/2024 4:18:08 AM (Electronic Signature) Discharge Plan Discharge Clinical Impression: Acute asthma exacerbation Patient Disposition: Home w/ Parent or Adult Condition: Improved Instructions: Asthma (ED) Additional Instructions: As we discussed, your oxygen levels and breathing have improved quite a bit on the steroids and nebulizer treatments. You do not not meet criteria for hospitalization at this time. Your labs look very good. There are no signs of significant infection, dehydration, electrolyte abnormality. Your swabs for COVID, influenza and RSV are also negative. Those are not typically the viruses that flare up asthma this time of year. Would recommend that we keep you on steroids for couple of days. I would like for you to take 20 mg twice daily for the next 5 days. I would like to start you on an antibiotic, doxycycline 100 mg twice daily for a week. Your 1st dose was given here in the emergency department. This will count as your Friday morning doses. Your next dose of both medications will be early evening. We will give you a small supply of nebulizer solution for you to use today until you can get to the pharmacy to pick up driver yours. Continue using your nebulizer treatments up to every 2 hours as needed. Continue to use your oxygen at 2 L all the time. Use your CPAP at night please. Restart your Spiriva. Follow-up with her primary care team if things are not improving within a few days. Activity Level: Activity as Tolerated Discharge Diet: Regular Prescriptions: New prednisone 20 mg tablet 20 mg PO BID Qty: 10 0RF doxycycline hyclate 100 mg capsule 100 mg PO BID Qty: 14 0RF No Action levetiracetam [Keppra] 750 mg tablet 750 mg PO BID potassium chloride 10 mEq tablet extended release 10 meq PO DAILY Rx Instructions: take 2 tablets daily levothyroxine 100 mcg tablet 100 mcg PO DAILY montelukast 10 mg tablet 10 mg PO HS mirabegron [Myrbetriq] 50 mg tablet extended release 24 hr 50 mg PO DAILY Patient Comments: albuterol sulfate 90 mcg/actuation HFA aerosol inhaler 2 puff INHALATION Q4H PRN cholecalciferol (vitamin D3) 50 mcg (2,000 unit) capsule 50 mcg PO DAILY paroxetine HCl 40 mg tablet 40 mg PO DAILY Patient Comments: furosemide 40 mg Tablet 40 mg PO DAILY Qty: 30 0RF albuterol sulfate 2.5 mg /3 mL (0.083 %) solution for nebulization 2.5 mg inhalation Q8H PRNQty: 1 0RF budesonide-formoterol [Symbicort] 160-4.5 mcg/actuation HFA aerosol inhaler 2 puff INHALATION BID Qty: 1 0RF Spiriva Respimat 2.5 mcg/actuation mist 2 puff inhalation DAILY Qty: 1 0RF omeprazole 20 mg capsule,delayed release(DR/EC) 40 mg PO DAILY Follow Up/Referrals: Geronimo Lamb MD [Primary Care Provider] - Stand Alone Forms: [facility] Info Instructions
[2024-02-24 03:46] LABS: Basophils Absolute Auto 0.05 K/uL (0.00-0.30); Basophils Percent Auto 0.5 % (0.0-3.0); Eosinophils Percent Auto 2.1 % (0.0-7.0); Hematocrit 38.3 % (33.0-51.0); Immature Granulocytes Abs Auto 0.03 K/uL (0.00-0.30); Immature Granulocytes Pct Auto 0.3 %; Lymphocytes Percent Auto 16.7 % (20-44); Mean Corpuscular HGB Conc 31 gm/dL (32-36); Mean Corpuscular Hemoglobin 29 pg (26-34); Mean Corpuscular Volume 93 fL (80-100); Monocytes Percent Auto 6.5 % (0.0-11.0); Neutrophils Percent Auto 73.9 % (42.0-72.0); Platelet Count* 182 K/uL (140-440); RDW Coefficient of Variation % 12.8 % (11.5-15.5); White Blood Count* 9.62 K/uL (4.50-11.00)
[2024-02-24 03:52] LABS: Slide Review Reflex No
[2024-02-24 03:58] LABS: Chloride* 103 mmol/L (96-114); Sodium* 141 mmol/L (135-149)
[2024-02-24 03:59] LABS: Potassium* 3.7 mmol/L (3.6-5.1)
[2024-02-24 04:01] LABS: Anion Gap 4 mEq/L (7-15); Blood Urea Nitrogen* 12 mg/dL (5-24); Carbon Dioxide* 34 mmol/L (20-32); Creatinine* 0.7 mg/dL (0.5-1.5); Est. Creatinine Clearance* 165.39; Estimated Glomerular Filt Rate 108 ml/min
[2024-02-24 04:02] LABS: Glucose* 119 mg/dL (60-115)
[2024-02-24 04:09] LABS: PCR FLU A Negative PCR FLU A (Negative); PCR FLU B Negative PCR FLU B (Negative); PCR RSV Negative PCR RSV (Negative); SARS PCR* Negative SARS-CoV-2 (Negative)
[2024-02-24] MEDS: ALBUTEROL SULFATE 2.5 MG/3 ML VIAL.NEB NEB (04:10)
[2024-02-24] MEDS: METHYLPREDNISOLONE SOD SUCC 40 MG/ML IVP (04:10)
[2024-02-24 04:11] LABS: NT Pro B Type NatriureticPept* 474 pg/mL
[2024-02-24 04:15] LABS: Troponin, Point-of-Care* 0.01 ng/ml (0.01-0.04)
--- OUTSIDE RECORDS SUMMARY | 2024-02-24 04:20 | XMS_ITS ---
Author Organization [facility] Address [address] [place] [address] Care Team Providers Care Shield Installer Name Role Phone Unavailable Unavailable Unavailable Surgery Details Not on file Complications Check Surgery Details section. Procedure Estimated Blood Loss Check Surgery Details section. Procedure Findings Check Surgery Details section. Procedure Specimens Taken Check Surgery Details section.
--- OUTSIDE RECORDS SUMMARY | 2024-02-24 04:20 | XMS_ITS | Clinical Summary ---
Author Organization [facility] Address [place], [place] [address] Care Team Providers Care Admissions Counselor Name Role Phone Paolo Limon MD Unavailable Talon Durham MD Unavailable [phone] Laura GardneryD, Unavailable [phone] Geronimo Lamb MD Primary Care Provider Luis Santos DO Unavailable [phone] Allergies Active Allergy Reactions Criticality Noted Date [...] Dispensed Refills Start Date End Date Status [facility], medication automatic data processing planner with alarm 1 unit 0 04/22/2014 [...] of need: 99. 1 Each 01/20/2024 Active CPAPIndications:OS A (obstructive sleep apnea) CPAP (E0601) machine for home use at pressure: 13 CM , Choice of mask (A7030 or A7034) w/full face cushion (A7031) x1/mo, nasal cushion (A7032) x2/mo, or nasal pillows (A7033) x 2/mo; Length of Need: 99 months; Frequency of use: Daily 1 Each 01/22/2024 Active oxygen-air delivery systems (HOME OXYGEN)Indications :RODRICK (obstructive sleep apnea) Oxygen for home use. Liters per minute: 1 per nasal cannula with rest/activity, 2 L bled into CPAP w/ sleep. Frequency of use: Continuous with portability.;. Length of need: 99 Months. 1 Each 02/09/2024 Active CPAPIndications:OS A (obstructive sleep apnea) CPAP (E0601) machine for home use at pressure: 13 cm w/ 2 L oxygen bled in , Choice of mask (A7030 or A7034) w/full face cushion (A7031) x1/mo, nasal cushion (A7032) x2/mo, or nasal pillows (A7033) x 2/mo; Length of Need: 99 months; Frequency of use: Daily 1 Each 02/09/2024 Active oxygen-air delivery systems (HOME OXYGEN)Indications :Severe persistent asthma, unspecified whether complicated Oxygen for home use. Liters per minute: 1 per nasal cannula. Frequency of use: Continuous with portability.;. Length of need: 99 Months. 1 Each 01/22/2024 02/09/20 Discontinu ed(Reorder (E-cancel not sent)) Active Problems [...] and depression Dizziness Overview (04/23/2021): Eval by [facility] neurology 2018. Thought to be functional. [...] Encounters Date Type Department Care Team Description 02/06/2024 Telephone [facility] [address] [place] [address] Luis Santos, Results (Overnight Oximetry On Room Air, with CPAP, 02/05/24) 02/06/2024 Orders Only [facility] [address] [place] [address] Luis Santos, DO 1 scan: (1-Ord) Overnight Oximetry, On Room Air, with CPAP, 02/05/24 02/05/2024 2:30 PM CDT Office Visit [facility] [address] [place] [address] Paolo Limon MD Sleep Follow-up; Medication List Update (Awaiting Zepbound approval from insurance) 02/05/2024 Travel 02/05/2024 Telephone [facility] [address] [place] [address] Paolo Limon MD Questions (C pap machine ) 02/03/2024 Telephone [facility] [address] [place] [address] Geronimo Lamb MD Questions (Plan of care) 01/23/2024 Telephone [address] [place] [address] Geronimo Lamb MD Prior Authorization (tirzepatide, weight loss, (Zepbound) 2.5 mg/0.5 mL pen EXCLUDED) 01/22/2024 1:50 PM CDT Orders Only [facility] [address] [facility] [place] [address] Lab, Appv Lab 01/22/2024 12:45 PM CDT Office Visit [facility] [address] [place] [address] Luis aSntos DO Consult (Lung Damage since COVID-19) 01/22/2024 Telephone [facility] [address] [place] [address] Luis Santos, DO Testing (Needs PFT, esophagram, CT chest) 01/22/2024 Travel 01/20/2024 2:55 PM CDT Office Visit [facility] [address] [place] [address] Geronimo Lamb MD Follow Up 01/20/2024 Travel 01/03/2024 Refill [address] [place] [address] Geronimo Lamb MD Refill Request (Myrbetriq) 11/26/2023 9:30 AM CDT - 11/26/2023 11:59 PM CDT Hospital Encounter [facility] EMG/EEG/EP [address] [facility] [address] [place] [address] Dread Villavicencio MD ThurstonCasey Seizure (HC) 11/26/2023 Travel from Last 3 Months Immunizations Name [...] Care Team (Late st Contact Info) Description 02/25/2024 8:30 AM CDT Hospital Encounter [facility] [address] [place], [place] [address] Luis Santos, DO [address] [address] 02/25/2024 9:00 AM CDT Appointment [address] [address] 02/25/2024 10:30 AM CDT Appointment [address] [address] 03/15/2024 9:00 AM CDT Orders Only [facility] [address] [place] [address] Lab, [place] 03/19/2024 1:15 PM CDT Office Visit [facility] [address] [place] [address] Geronimo Lamb MD [address] [place] [address] 04/08/2024 1:00 PM REGULATORY AFFAIRS MANAGER Appointment [facility] [address] [facility] [place] [address] Shazia Li, CARE WORKER [address] [place] [address] 05/12/2024 2:00 PM REGULATORY AFFAIRS MANAGER Office Visit [facility] [address] [place] [address] Paolo Limon MD [address] [place] [address] Health Maintenance Due Date Last Done Comments Pap test for age 21-65 04/16/2014 04/16/2011 (Declin ed) Tetanus booster 10/29/2020 10/29/2010 Colonoscopy through age 75 2022 Mammogram for age 45-75 2022 02/24/2019, 02/16 COVID-19 vaccine series ( season) 2024 03/19/2023, 05/01/2022, 08/29/2021, Additional history exists Influenza for [...] for age 6-64 Completed 01/15/20 23, 09/14/2013 Procedures Procedure Name Priority Date/Time Associated Diagnosis Comments AMB CONSULT TO HOME OXYGEN AND DME Routine 02/05/2024 Severe persistent asthma, unspecified whether complicated IMMUNOGLOBULIN E,IGE Routine 01/22/2024 2:02 PM CDT [...] CDT Hyperlipidemia, unspecified hyperlipidemia type HEMOGLOBIN A1C Routine 01/20/2024 4:00 PM CDT Prediabetes EEG Routine 11/26/2023 9:30 AM CDT Seizure (HC) ANTI HIV 1/2 Routine 05/01/2022 4:36 PM REGULATORY AFFAIRS MANAGER Encounter for screening for HIV ANTI HCV Routine 12/05/2021 9:30 AM CDT Need for hepatitis C screening test SCAN-MAMMOGRAPHY REPORT 02/24/2019 12:00 AM CDT from Last 3 Months or Most Recently Relevant to Health Maintenance Results * AMB CONSULT TO HOME OXYGEN AND DME (02/05/2024) Luis Santos DO AMB REFERRAL/CONSU LT ORD * RESPIRATORY DISEASE ALLERGY PROFILE (01/22/2024 2:02 PM CDT) Alternaria Alternata IGE <0.10 <=0.35 kU/L 01/29/2024 2:13 PM CDT [facility] Aspergillus Fumigatus (M3) IGE <0.10 <=0.35 kU/L 01/29/2024 2:13 PM CDT [facility] Birch (T3) IgE <0.10 <=0.35 kU/L 01/29/2024 2:13 PM CDT [facility] Cat Dander (E1) IgE <0.10 <=0.35 kU/L 01/29/2024 2:13 PM CDT [facility] Cladosporium herbarum (M2) IgE <0.10 <=0.35 kU/L 01/29/2024 2:13 PM CDT [facility] Cockroach (I6) IgE <0.10 <=0.35 kU/L 01/29/2024 2:13 PM CDT [facility] Common Ragweed (W1) IgE <0.10 <=0.35 kU/L 01/29/2024 2:13 PM CDT [facility] D. Farinae (D2) IgE <0.10 <=0.35 kU/L 01/29/2024 2:13 PM CDT [facility] D. Pteronyssinus (D1) IgE <0.10 <=0.35 kU/L 01/29/2024 2:13 PM CDT [facility] Dog Dander (E5) IgE <0.10 <=0.35 kU/L 01/29/2024 2:13 PM CDT [facility] Elm (T8) IgE <0.10 <=0.35 kU/L 01/29/2024 2:13 PM CDT [facility] IMMUNOGLOBULIN E (IGE) 59.2 22.0 - 107.0 kU/L 01/29/2024 2:13 PM CDT [facility] MAPLE (BOX ELDER) (T1) IGE <0.10 <=0.35 kU/L 01/29/2024 2:13 PM CDT [facility] ORCHARD GRASS (G3) IGE <0.10 <=0.35 kU/L 01/29/2024 2:13 PM CDT [facility] RED TOP (BENT) GRASS (G9) IGE <0.10 <=0.35 kU/L 01/29/2024 2:13 PM CDT [facility] ROUGH VALENTINE ELDER (W16) IGE <0.10 <=0.35 kU/L 01/29/2024 2:13 PM CDT [facility] WHITE OAK (T7) IGE <0.10 <=0.35 kU/L 01/29/2024 2:13 PM CDT [facility] Blood BLOOD SPECIMEN / Unknown Venipuncture / Unknown 01/22/2024 2:02 PM CDT 01/22/2024 2:03 PM CDT Luis Santos DO SEND OUTS Performing Organization Address [facility] Co de Phone Number [facility] [address] [place] [address], [place] * IMMUNOGLOBULIN E,IGE (01/22/2024 2:02 PM CDT) IMMUNOGLOBULIN E (IGE) 55.3 22.0 - 107.0 kU/L 01/27/2024 1:59 PM CDT [facility] Blood BLOOD SPECIMEN / Unknown Venipuncture / Unknown 01/22/2024 2:02 PM CDT 01/22/2024 2:03 PM CDT Luis Santos DO CHEMISTRY Performing Organization Address [facility] Co de Phone Number [facility] [address] [place] [address], [place] * QFT MITOGEN PERFORMABLE (01/20/2024 4:00 PM CDT) MITOGEN 4.85 IU/mL 01/22/2024 12:48 PM CDT [facility] Blood BLOOD SPECIMEN / Unknown Venipuncture / Unknown 01/20/2024 4:00 PM CDT 01/20/2024 4:00 PM CDT Geronimo Lamb MD CHEMISTRY Performing Organization Address [facility] Co de Phone Number [facility] [address] [address], [place] * QFT TB2 PERFORMABLE (01/20/2024 4:00 PM CDT) TB2 0.01 IU/mL 01/22/2024 10:03 AM CDT [facility] Blood BLOOD SPECIMEN / Unknown Venipuncture / Unknown 01/20/2024 4:00 PM CDT 01/20/2024 4:00 PM CDT Geronimo Lamb MD CHEMISTRY Performing Organization Address City/[facility]/ZIP Co de Phone Number [facility] [address] [place] [address], [place] * QFT TB1 PERFORMABLE (01/20/2024 4:00 PM CDT) TB1 0.01 IU/mL 01/22/2024 10:04 AM CDT [facility] Blood BLOOD SPECIMEN / Unknown Venipuncture / Unknown 01/20/2024 4:00 PM CDT 01/20/2024 4:00 PM CDT Geronimo Lamb MD CHEMISTRY [facility] [address] [place] [address], [place] * QUANTIFERON TB GOLD PLUS (01/20/2024 4:00 PM CDT) QFTP NIL 0.00 01/22/2024 2:20 PM CDT [facility] TB1 0.01 IU/mL 01/22/2024 2:20 PM CDT [facility] TB2 0.01 IU/mL 01/22/2024 2:20 PM CDT [facility] MITOGEN 4.85 IU/mL 01/22/2024 2:20 PM CDT [facility] QFTP TB AG1 - NIL 0.01 024 2:20 PM CDT [facility] TB1-NIL % OF NIL 01/22/20 2:20 PM CDT [facility] Comment:Unable to calculate QFTP TB AG2 - NIL 0.01 024 2:20 PM CDT [facility] TB2-NIL % OF NIL 01/22/20 24 2:20 PM CDT [facility] Comment:Unable to calculate QFTP MITOGEN - NIL 4.85 2023 2:20 PM CDT [facility] QFTP QUANTIFERON INTERPRETATION Negative Negative 01/22/2024 2:20 PM CDT [facility] Blood BLOOD SPECIMEN / Unknown Venipuncture / Unknown 01/20/2024 4:00 PM CDT 01/20/2024 4:00 PM CDT Narrative [facility] - 01/22/2024 2:20 PM CDT M. tuberculosis [...] old. - women Geronimo Lamb MD CHEMISTRY [facility] [address] [place] [address], * HEMOGLOBIN A1C SCREENING (01/20/2024 4:00 PM CDT) HEMOGLOBIN A1C SCREENING 6.1 <=6.4 % 01/21/2024 9:15 AM CDT [facility] Blood BLOOD SPECIMEN / Unknown Venipuncture / Unknown 01/20/2024 4:00 PM CDT 01/20/2024 4:00 PM CDT Narrative [facility] - 01/21/2024 9:15 AM CDT ? (<5.7%) ?Normal ? (5.7% to 6.4%) ? Indicates prediabetes ? (>=6.5%) ? Confirms diabetes Falsely low levels may be seen with: Recent Transfusion, Recent Significant Blood Loss, Hemolytic Diseases, or Falsely elevated levels may be seen with: Untreated Anemias, Splenectomy Geronimo Lamb MD CHEMISTRY Performing Organization Address [facility] Co de Phone Number [facility] [address] [address], [place] * TSH WITH REFLEX (01/20/2024 4:00 PM CDT) TSH 0.64 0.27 - 4.20 uIU/mL 01/21/2024 1:44 PM CDT [facility] Blood BLOOD SPECIMEN / Unknown Venipuncture / Unknown 01/20/2024 4:00 PM CDT 01/20/2024 4:00 PM CDT Narrative [facility] - 01/21/2024 1:44 PM CDT In Adults, TSH values between 5.00 and 10.00 uIU/ml do not necessarily indicate the presence of Hypothyroidism. Correlation with clinical findings such as presence of goiter and/or Thyroperoxidase (TPO) Antibody may be helpful. For more information please refer to SIVAN 2004; 291: 228-238. Geronimo Lamb MD CHEMISTRY Performing Organization Address [facility] Co de Phone Number [facility] [address] [address], [place] * (ABNORMAL) LIPID PANEL W REFLEX MEASURED LDL (01/20/2024 4:00 PM CDT) CHOLESTEROL,TOTAL 261(H) 100 - 199 mg/dL 01/21/2024 1:44 PM CDT [facility] Comment: Cholesterol, Total Reference Ranges Desirable <200 mg/dL Borderline 200-239 mg/dL High >=240 mg/dL TRIGLYCERIDES 252(H) <150 mg/dL 01/21/2024 1:44 PM CDT [facility] HDL CHOLESTEROL 50 >40 mg/dL 1:44 PM CDT [facility] NON-HDL CHOLESTEROL 211(H) <145 mg/dl 01/21/2024 1:44 PM CDT [facility] CHOL/HDL RATIO 5.22(H) <4.50 01/21/2024 1:44 PM CDT [facility] LDL CHOLESTEROL 161(H) <=130 mg/dL 01/21/2024 1:44 PM CDT [facility] VLDL CHOLESTEROL 50(H) <=30 mg/dL 01/21/2024 1:44 PM CDT [facility] PROVIDER ORDERED STATUS RANDOM 01/21/2024 1:44 PM CDT [facility] Blood BLOOD SPECIMEN / Unknown Venipuncture / Unknown 01/20/2024 4:00 PM CDT 01/20/2024 4:00 PM CDT Geronimo Lamb MD CHEMISTRY [facility] [address] [place] [address], * BASIC METABOLIC PANEL (01/20/2024 4:00 PM CDT) SODIUM 139 136 - 145 mmol/L 01/21/2024 1:44 PM CDT [facility] POTASSIUM 4.0 3.5 - 5.1 mmol/L 01/21/2024 1:44 PM CDT [facility] CHLORIDE 100 98 - 107 mmol/L 01/21/2024 1:44 PM CDT [facility] CO2,TOTAL 28 22 - 29 mmol/L 01/21/2024 1:44 PM CDT [facility] ANION GAP 11 5 - 18 01/21/2024 1:44 PM CDT [facility] GLUCOSE 98 70 - 99 mg/dL 01/21/2024 1:44 PM CDT [facility] CALCIUM 9.2 8.6 - 10.0 mg/dL 01/21/2024 1:44 PM CDT [facility] BUN 12 6 - 20 mg/dL 01/21/2024 1:44 PM CDT [facility] CREATININE 0.79 0.50 - 0.90 mg/dL 01/21/2024 1:44 PM CDT [facility] BUN/CREAT RATIO 15 10 - 20 1:44 PM CDT [facility] eGFR >90 >90 mL/min/1.7 3m2 01/21/2024 1:44 PM CDT [facility] Comment:As of 2021, eG FR is calculated by the CKD-EPI creatinine equation without race adjustment. ??eGFR can be influenced by muscle mass, exercise, and diet. ??The reported eGFR is an estimation only and is only applicable if the renal function is stable. Blood BLOOD SPECIMEN / Unknown Venipuncture / Unknown 01/20/2024 4:00 PM CDT 01/20/2024 4:00 PM CDT Geronimo Lamb MD CHEMISTRY [facility] [address] [place] [address], * EEG (11/26/2023 9:30 AM CDT) Narrative Emerson cMmahon MBBS - 11/26/2023 9:30 AM CDT Emerson [...] help, Dr Adi Heath does this at [place]. Emerson Mcmahon MD, FAAN, PATRICIA Epileptologist, President - [facility] [place]. Dread Villavicencio MD NEUROLOGY ORD * ANTI HIV 1/2 (05/01/2022 4:36 PM REGULATORY AFFAIRS MANAGER) HIV-1/HIV-2 ANTIBODY Non-Reacti ve Non-Reacti ve 05/04/2022 9:59 PM REGULATORY AFFAIRS MANAGER [facility] Comment:HIV-1 p24 and HIV-1/ HIV-2 Ab not detected. Blood BLOOD SPECIMEN / Unknown Butterfly / Unknown 05/01/2022 4:36 PM REGULATORY AFFAIRS MANAGER 05/01/2022 4:41 PM REGULATORY AFFAIRS MANAGER Geronimo Lamb MD SEND OUTS Performing Organization Address City/[facility]/ZIP Co de Phone Number [facility] [address] [place] [address], * ANTI HCV (12/05/2021 9:30 AM CDT) HEPATITIS C ANTIBODY Non-React shikha Non-React shikha 12/05/2021 9:16 PM CDT [facility] Comment:Antibodies to HCV no t detected; does not exclude the possibility of exposure to HCV. Blood BLOOD SPECIMEN / Unknown Venipuncture / Unknown 12/05/2021 9:30 AM CDT 12/05/2021 9:33 AM CDT Geronimo Lamb MD SEND OUTS [facility] [address] [place] [address], * SCAN-MAMMOGRAPHY REPORT (02/24/2019 12:00 AM CDT) Anatomical Region Laterality Modality Other Scanner OTHER from Last 3 Months or Most Recently Relevant to Health Maintenance Care Teams Admissions Counselor Relationship Specialty Start Date End Date Geronimo Lamb MD [address] [place] [address] PCP - General Family Practice 04/23/21 Paolo Limon MD Sleep Medicine 10/28/11 Talon Durham MD Neurology Neurology 11/26/11 Laura Gardner PsyD, LP Psychology 09/14/13 [place] [address] [place] [address] Pulmonology Pulmonary Medicine 01/22/24
--- OUTSIDE RECORDS SUMMARY | 2024-02-24 04:20 | XMS_ITS | Referral Summary ---
Author Organization [facility] Address [address] [place] [address] Care Team Providers Care Licensed Investment Sales Assistant Name Role Phone Elsewhere, Pcp Primary Care Provider Unavailabl e Source Comments Patient records contain information from all sites at [facility]. For routine questions regarding patient records, call [phone] during business hours, M-F 8:00 AM - 5:00 PM Central Time. Record requests for emergency care only can be directed to [phone] at any time.[facility] Allergies Active Allergy Reactions Criticality Noted [...] Sex Assigned at Female 06/02/2018 2:11 PM FURNITURE MOVER HELPER Gender Identity Female 06/02/2018 2:11 PM FURNITURE MOVER HELPER Sexual Orientation Choose not to disclose 2018 2:11 PM FURNITURE MOVER HELPER Last Filed Vital Signs Vital Sign [...] on file Medical Devices Implanted Type Area Dental Laboratory Technology Teacher Device Identifier Shelf Expiration Date Model / Serial / Lot Ear Implant- [id number] Implanted:11/24 (Quantity not on file) Ear Implant Ear Olympus Bernice Vega TORP Plasti-pore [id number] / / [id number] Description:[facility], [place], [place]. Ear implant-Vega TOPR Plasti-pore MRI Safe Procedures Procedure Name Priority Date/Time Associated Diagnosis Comments THYROID-STIMULATING HORMONE-SENSITIVE (S-TSH) Routine 10/27/2018 3:42 PM CDT Hypothyroidism Primary BASIC METABOLIC PANEL, S/P Routine 03/11/2018 1:58 PM CDT Dizziness Diplopia LIPID PANEL, S Routine 06/10/2016 10:40 AM FURNITURE MOVER HELPER from Last 3 Months or Most Recently Relevant to Health Maintenance Results * (ABNORMAL) S-TSH (Thyroid-Stimulating Hormone - Sensitive) (10/27/2018 3:42 PM CDT) TSH, Sensitive 10.7(H) 0.3 - 4.2 mIU/L 10/27/2018 5:20 PM CDT Comment: Biotin has been identified by the wire fence erector as a potential interfering substance. ??Higher concentrations of biotin may be found in multivitamins, hair/nail supplements, and workout supplements. ??If the result does not match clinical observations, repeat testing after patient refrains from the use of supplements for at least 12 hours. Blood (Blood, Venous) 10/27/2018 3:42 PM CDT 10/27/2018 3:43 PM CDT Deanne Tsang P.A.-C. LAB BLOOD ADD-O N [facility] [address] * Basic Metabolic Panel (03/11/2018 1:58 PM CDT) Pathologist [facility] Potassium, S 4.0 3.6 - 5.2 mmol/L 03/11/2018 2:29 PM CDT [facility] Sodium, S 141 135 - 145 mmol/L 03/11/2018 2:29 PM CDT [facility] Chloride, S 101 98 - 107 mmol/L 03/11/2018 2:29 PM CDT [facility] Bicarbonate, S 27 22 - 29 mmol/L 03/11/2018 2:29 PM CDT [facility] Anion Gap 13 7 - 15 03/11/2018 2:29 PM CDT [facility] BUN (Blood Urea Nitrogen), S 12 6 - 21 mg/dL 03/11/2018 2:29 PM CDT [facility] Creatinine 0.62 0.59 - 1.04 mg/dL 03/11/2018 2:29 PM CDT [facility] eGFR-Non Black/ >90 >=60 mL/min/BSA 03/11/2018 2:29 PM CDT [facility] Comment: ----ADDITIONAL INFORMATION---- Estimated GFR calculated using the 2009 CKD_EPI creatinine equation. eGFR-Black/Afri can [place] >90 >=60 mL/min/BSA 03/11/2018 2:29 PM CDT [facility] Comment: ----ADDITIONAL INFORMATION---- Estimated GFR calculated using the 2009 CKD_EPI creatinine equation. Calcium, Total, S 9.4 8.6 - 10.0 mg/dL 03/11/2018 2:29 PM CDT [facility] Glucose, S 95 70 - 140 mg/dL 03/11/2018 2:29 PM CDT [facility] Blood (Blood, Venous) 03/11/2018 1:58 PM CDT 03/11/2018 1:58 PM CDT Deanne Tsang P.A.-C. LAB BLOOD ADD-O N Performing Organization Address City/State/[facility] Co de Phone Number [facility] [address] [place] [address], [facility] * (ABNORMAL) Lipid Panel (06/10/2016 10:40 AM FURNITURE MOVER HELPER) Cholesterol, Total 275(H) <=199 MGDL POWERCHART Comment: [...] for FH and FDB is available through [employer]: FH/ADH Genetic Reflex Panel (test ADHP). Acquired (non-genetic) causes of markedly increased LDL cholesterol include cholestatic liver disease due to the presence of LpX. If a genetic form of hypercholesterolemia is suspected, family studies including biochemical testing for lipids (total cholesterol,triglycerides, LDL cholesterol and HDL cholesterol) are recommended. ??Please contact the laboratory at or the on-line test catalog at [employer] for information about how to order these tests or to speak with a genetic counselor. Further interpretation would require clinical information. Total Cholesterol/HDL Ratio 5 POWERCHART Blood 06/10/2016 10:4 0 AM FURNITURE MOVER HELPER Ana Chery M.D. LAB BLOOD ADD-O N POWERCHART from Last 3 Months or Most Recently Relevant to Health Maintenance Care Teams Licensed Investment Sales Assistant Relationship Specialty Start Date End Date Elsewhere, Pcp PCP - General Internal Medicine 12/04/18
--- OUTSIDE RECORDS SUMMARY | 2024-02-24 04:20 | XMS_ITS | Clinical Summary ---
Author Organization [facility] Address [address] [place] [address] Care Team Providers Care Recruitment Assistant Name Role Phone Elsewhere, Pcp Primary Care Provider Unavailabl e Source Comments Patient records contain information from all sites at [facility]. For routine questions regarding patient records, call [phone] during business hours, M-F 8:00 AM - 5:00 PM Central Time. Record requests for emergency care only can be directed to [phone] at any time.[facility] Allergies Active Allergy Reactions Criticality Noted Date [...] Sex Assigned at Female 06/02/2018 2:11 PM MANAGER ASSEMBLY Gender Identity Female 06/02/2018 2:11 PM MANAGER ASSEMBLY Sexual Orientation Choose not to disclose 2018 2:11 PM MANAGER ASSEMBLY Last Filed Vital Signs Vital Sign Reading [...] (2 - Td or Tdap) 10/29/2020 10/29/2010 COVID-19 Vaccine (2023-2 5 season) 2024 03/19/2023, 05/01/2022, 08/29/2021, Additional history exists Influenza Vaccine (#1) 2024 , 05/01/2022, 03/09/2018, Additional history exists Creatinine Level (Kidney Fun ction Test) 03/19/2024 03/19/2023, 05/01/2022, 03/11/2018, Additional history exists Lipid (Cholesterol) Screening 03/19/2024, 08/29/2021, 06/10/2016 Potassium Level 03/19/2024 03/19/2023, 12/11/2021, 03/11/2018, Additional history exists Sodium Level 03/19/2024 03/19/2023, 1211/2021, 03/11/2018, Additional history exists Thyroid Stimulating Hormone (TSH) test for thyroid function 06/10/2024 06/10/2023, 03/19/2023, 01/14/2023, Additional history exists Fasting Glucose for Diabetes Screening 03/19/2026 03/19/2023, 05/01/2022, 03/11/2018, Additional history exists Pneumococcal vaccine (0-64 years) Completed 023, 09/14/2013 Medical Devices Implanted Type Area Legal Support Analyst Device Identifier Shelf Expiration Date Model / Serial / Lot Ear Implant- 011 Implanted:11/24 (Quantity not on file) Ear Implant Ear [facility] Bernice Vgea TORP Plasti-pore [id number] / / [id number] Description:[facility], [place], [place]. Ear implant-Vega TOPR Plasti-pore MRI Safe Procedures Procedure Name Priority Date/Time Associated Diagnosis Comments THYROID-STIMULATING HORMONE-SENSITIVE (S-TSH) Routine 10/27/2018 3:42 PM CDT Hypothyroidism Primary BASIC METABOLIC PANEL, S/P Routine 03/11/2018 1:58 PM CDT Dizziness Diplopia LIPID PANEL, S Routine 06/10/2016 10:40 AM MANAGER ASSEMBLY from Last 3 Months or Most Recently Relevant to Health Maintenance Results * (ABNORMAL) S-TSH (Thyroid-Stimulating Hormone - Sensitive) (10/27/2018 3:42 PM CDT) TSH, Sensitive 10.7(H) 0.3 - 4.2 mIU/L 10/27/2018 5:20 PM CDT Comment: Biotin has been identified by the product marketing consultant as a potential interfering substance. ??Higher concentrations of biotin may be found in multivitamins, hair/nail supplements, and workout supplements. ??If the result does not match clinical observations, repeat testing after patient refrains from the use of supplements for at least 12 hours. Blood (Blood, Venous) 10/27/2018 3:42 PM CDT 10/27/2018 3:43 PM CDT Deanne Tsang P.A.-C. LAB BLOOD ADD-O N Performing Organization Address City/State/[facility] Co de Phone Number [facility] [address] * Basic Metabolic Panel (03/11/2018 1:58 PM CDT) Potassium, S 4.0 3.6 - 5.2 mmol/L 03/11/2018 2:29 PM CDT [facility] Sodium, S 141 135 - 145 mmol/L 03/11/2018 2:29 PM CDT [facility] Chloride, S 101 98 - 107 mmol/L 03/11/2018 2:29 PM CDT [facility] Bicarbonate, S 27 22 - 29 mmol/L 03/11/2018 2:29 PM CDT [facility] Anion Gap 13 7 - 15 03/11/2018 2:29 PM CDT [facility] BUN (Blood Urea Nitrogen), S 12 6 - 21 mg/dL 03/11/2018 2:29 PM CDT [facility] Creatinine 0.62 0.59 - 1.04 mg/dL 03/11/2018 2:29 PM CDT [facility] eGFR-Non Black/ >90 >=60 mL/min/BSA 03/11/2018 2:29 PM CDT [facility] Comment: ----ADDITIONAL INFORMATION---- Estimated GFR calculated using the 2009 CKD_EPI creatinine equation. eGFR-Black/Afri can [place] African >90 >=60 mL/min/BSA 03/11/2018 2:29 PM CDT [facility] Comment: ----ADDITIONAL INFORMATION---- Estimated GFR calculated using the 2009 CKD_EPI creatinine equation. Calcium, Total, S 9.4 8.6 - 10.0 mg/dL 03/11/2018 2:29 PM CDT [facility] Glucose, S 95 70 - 140 mg/dL 03/11/2018 2:29 PM CDT [facility] Blood (Blood, Venous) 03/11/2018 1:58 PM CDT 03/11/2018 1:58 PM CDT Deanne Tsang P.A.-C. LAB BLOOD ADD-O N Performing Organization Address City/State/[facility] Co de Phone Number [facility] [address] * (ABNORMAL) Lipid Panel (06/10/2016 10:40 AM MANAGER ASSEMBLY) Pathologist [facility] Cholesterol, Total 275(H) <=199 MGDL POWERCHART Comment: [...] for FH and FDB is available through [facility]: FH/ADH Genetic Reflex Panel (test ADHP). Acquired (non-genetic) causes of markedly increased LDL cholesterol include cholestatic liver disease due to the presence of LpX. If a genetic form of hypercholesterolemia is suspected, family studies including biochemical testing for lipids (total cholesterol,triglycerides, LDL cholesterol and HDL cholesterol) are recommended. ??Please contact the laboratory at or the on-line test catalog at 28msec for information about how to order these tests or to speak with a genetic counselor. Further interpretation would require clinical information. Total Cholesterol/HDL Ratio 5 POWERCHART Blood 06/10/2016 10:4 0 AM MANAGER ASSEMBLY Ana Chery M.D. LAB BLOOD ADD-O N POWERCHART from Last 3 Months or Most Recently Relevant to Health Maintenance Care Teams Recruitment Assistant Relationship Specialty Start Date End Date Elsewhere, Pcp PCP - General Internal Medicine 12/04/18
[2024-02-24] MEDS: ALBUTEROL SULFATE 2.5 MG/3 ML VIAL.NEB 5 MG NEB (04:41)
[2024-02-24] MEDS: DOXYCYCLINE HYCLATE 100 MG PO (04:41)
== END 2024-02-24 05:05 | disposition home or self-care (01) ==
PROVIDERS: Emergency Provider Family Medicine; PCP Family Medicine
DX: J45.901 Unspecified asthma with (acute) exacerbation (principal)
CPT/HCPCS: 36415; 71046; 80048; 83880; 84484; 85025; 87631; 93005; 94640; 94761; 99284; A9270; J2919

== ENCOUNTER 2024-02-24 05:03 | Outpatient (CLI) | payer OTHER, SELFPAY ==
--- OUTSIDE RECORDS SUMMARY | 2024-03-13 00:22 | XMS_ITS | Clinical Summary ---
Author Organization [facility] Address [address] [place] [address] Care Team Providers Care Media Intern Name Role Phone Elsewhere, Pcp Primary Care Provider Unavailabl e Source Comments Patient records contain information from all sites at [facility]. For routine questions regarding patient records, call [phone] during business hours, M-F 8:00 AM - 5:00 PM Central Time. Record requests for emergency care only can be directed to [phone] at any time.[facility] Allergies Active Allergy Reactions Criticality Noted Date Comments Azithromycin Diarrhea,Nausea And Vomiting 02/23/2009 Bloody stools Basil Rash 09/17/2017 Dextroamphetamine-Amphe tamine Rash 09/21/2014 Flu Vac Qv 2016(18yr Up)Rc(Pf) GI intolerance 09/17/2017 Latex Rash 09/21/2014 Oxycodone-Acetaminophen Other (see comments) Lethargic-- Memory loss--aggression Scopolamine Other (see comments) 05/10/2015 Medications * This document contains information received from the source organization and may not represent a complete record from that organization. budesonide (PULMICORT FLEXHALER) 180 mcg/actuation inhaler Inhale 1 puff 2 (two) times a day. 7 Active omeprazole (PriLOSEC) 20 mg capsule Take 1 capsule by mouth 2 (two) times a day. 7 Active albuterol (ACCUNEB) 2.5 mg /3 mL nebulizer solution Take 3 mL by nebulization every 6 (six) hours as needed. 7 Active ibuprofen (ADVIL,MOTRIN) 200 mg tablet Take [...] (two) times a day. 30 g 1 8 Active Additional Information Patient not taking.Reported on 01/13/2023 LORazepam (ATIVAN) 0.5 mg tablet Take 1 tablet (0.5 mg total) by mouth See Admin Instructions. Take 30 minutes prior to procedure. 1 tablet 8 Active levothyroxine (SYNTHROID, LEVOTHROID) 175 mcg tablet Take 1 tablet (175 mcg total) by mouth once daily. 90 tablet 3 8 Active albuterol (PROVENTIL HFA,VENTOLIN HFA) 90 mcg/actuation inhaler Inhale 2 puffs 4 (four) times a day. 3 Inhaler 3 8 Active meclizine (ANTIVERT) 12.5 mg tablet Take 1-2 tablets (12.5-25 mg total) by mouth 3 (three) times a day as needed for dizziness. 60 tablet 1 8 Active Additional Information Patient not taking.Reported on 01/13/2023 diazePAM (VALIUM) 5 mg tablet Take 1 tablet (5 mg total) by mouth once for 1 dose. Take 30 minutes prior to MRI. 1 tablet 8 Active prochlorperazin e (COMPAZINE) 5 mg tablet Take 1 tablet (5 mg total) by mouth 3 (three) times a day as needed for nausea. 30 tablet 9 Active Additional Information Patient not taking.Reported on 01/13/2023 diphenhydrAMINE (BENADRYL) 25 mg capsule Take 25 mg by mouth. 5 Active cholecalciferol (VITAMIN D3) 2,000 Unit tablet Take 2,000 Units by mouth daily. Active oxybutynin (DITROPAN-XL) 5 mg 24 hr tablet Take 1 tablet (5 mg total) by mouth daily. 90 tablet 3 0 Active Additional Information Patient not taking.Reported on 01/13/2023 PARoxetine (PAXIL) 40 mg tablet TAKE 1 TABLET BY MOUTH EVERY DAY 30 tablet 0 Active budesonide-form oteroL (SYMBICORT) 80-4.5 mcg/actuation inhaler Inhale 2 puffs [...] Recorded Dental: Regular Dentist Unknown 07/28/19 21 Comments Unknown Sex and Gender Information Value Date Recorded Sex Assigned at Female 06/02/2018 2:11 PM SEISMOGRAPH SHOOTER Legal Sex Female 5:08 AM SEISMOGRAPH SHOOTER Gender Identity Female 06/02/2018 2:11 PM SEISMOGRAPH SHOOTER Sexual Orientation Choose not to disclose 2018 2:11 PM SEISMOGRAPH SHOOTER Last Filed Vital Signs Vital Sign Reading [...] Td or Tdap) 10/29/2020 10/29/2010 COVID-19 Vaccine (6 2023-2 5 season) 2024 03/19/2023, 05/01/2022, 08/29/2021, Additional [...] 023, 09/14/2013 Medical Devices Implanted Type Area Power Lineworker Device Identifier Shelf Expiration Date Model / Serial / Lot Ear Implant- 011 Implanted:11/24 (Quantity not on file) Ear Implant Ear [employer] Bernice Vega TORP Plasti-pore [id number] / / [id number] Description:[facility], [place], [place]. Ear implant-Vega TOPR Plasti-pore MRI Safe Procedures Procedure Name Priority Date/Time Associated Diagnosis Comments THYROID-STIMULATING HORMONE-SENSITIVE (S-TSH) Routine 10/27/2018 3:42 PM CDT Hypothyroidism Primary BASIC METABOLIC PANEL, S/P Routine 03/11/2018 1:58 PM CDT Dizziness Diplopia LIPID PANEL, S Routine 06/10/2016 10:40 AM SEISMOGRAPH SHOOTER from Last 3 Months or Most Recently Relevant to Health Maintenance Results * (ABNORMAL) S-TSH (Thyroid-Stimulating Hormone - Sensitive) (10/27/2018 3:42 PM CDT) TSH, Sensitive 10.7(H) 0.3 - 4.2 mIU/L 10/27/2018 5:20 PM CDT Comment: Biotin has been identified by the online banking specialist as a potential interfering substance. ??Higher concentrations of biotin may be found in multivitamins, hair/nail supplements, and workout supplements. ??If the result does not match clinical observations, repeat testing after patient refrains from the use of supplements for at least 12 hours. Blood (Blood, Venous) 10/27/2018 3:42 PM CDT 10/27/2018 3:43 PM CDT Deanne Tsang P.A.-C. LAB BLOOD ADD-ON Final Result [facility] [address] [place] [address], [facility] * Basic Metabolic Panel (03/11/2018 1:58 PM [...] the 2009 CKD_EPI creatinine equation. eGFR-Black/Afri can [place]araguan >90 >=60 mL/min/BSA 03/11/2018 2:29 PM CDT [facility] Comment: ----ADDITIONAL INFORMATION---- Estimated GFR calculated using the 2009 CKD_EPI creatinine equation. Calcium, Total, S 9.4 8.6 - 10.0 mg/dL 03/11/2018 2:29 PM CDT [facility] Glucose, S 95 70 - 140 mg/dL 03/11/2018 2:29 PM CDT [facility] Blood (Blood, Venous) 03/11/2018 1:58 PM CDT 03/11/2018 1:58 PM CDT us Deanne Tsang P.A.-C. LAB BLOOD ADD-ON Final Result Performing Organization Address City/State/[facility] Co de Phone Number [facility] [address] [place] [address], [facility] * (ABNORMAL) Lipid Panel (06/10/2016 10:40 AM SEISMOGRAPH SHOOTER) [facility] Signature Cholesterol, Total 275(H) <=199 MGDL POWERCHART Comment: [...] for FH and FDB is available through [employer]: FH/ADH Genetic Reflex Panel (test ADHP). Acquired (non-genetic) causes of markedly increased LDL cholesterol include cholestatic liver disease due to the presence of LpX. If a genetic form of hypercholesterolemia is suspected, family studies including biochemical testing for lipids (total cholesterol,triglycerides, LDL cholesterol and HDL cholesterol) are recommended. ??Please contact the laboratory at or the on-line test catalog at [email or web address] for information about how to order these tests or to speak with a genetic counselor. Further interpretation would require clinical information. Total Cholesterol/HDL Ratio 5 POWERCHART Blood 06/10/2016 10:4 0 AM SEISMOGRAPH SHOOTER us Ana Chery M.D. LAB BLOOD ADD-ON Final Result POWERCHART from Last 3 Months or Most Recently Relevant to Health Maintenance Insurance [facility] Care Teams Media Intern Relationship Specialty Start Date End Date Elsewhere, Pcp PCP - General Internal Medicine 12/04/18
--- OUTSIDE RECORDS SUMMARY | 2024-03-13 00:22 | XMS_ITS ---
Author Organization [facility] Address [address] [place] [address] Care Team Providers Care Rheumatology Nurse Name Role Phone Unavailable Unavailable Unavailable Surgery Details Not on file Complications Check Surgery Details section. Procedure Estimated Blood Loss Check Surgery Details section. Procedure Findings Check Surgery Details section. Procedure Specimens Taken Check Surgery Details section.
--- OUTSIDE RECORDS SUMMARY | 2024-03-13 00:22 | XMS_ITS | Referral Summary ---
Author Organization [facility] Address [address] [place] [address] Care Team Providers Care Process Project Engineer Name Role Phone Elsewhere, Pcp Primary Care Provider Unavailabl e Source Comments Patient records contain information from all sites at [facility]. For routine questions regarding patient records, call [phone] during business hours, M-F 8:00 AM - 5:00 PM Central Time. Record requests for emergency care only can be directed to [phone] at any time.[facility] Allergies Active Allergy Reactions Criticality Noted Date [...] Sex Assigned at Female 06/02/2018 2:11 PM EXCELSIOR MACHINE FEEDER Legal Sex Female 5:08 AM EXCELSIOR MACHINE FEEDER Gender Identity Female 06/02/2018 2:11 PM EXCELSIOR MACHINE FEEDER Sexual Orientation Choose not to disclose 2018 2:11 PM EXCELSIOR MACHINE FEEDER Last Filed Vital Signs Vital Sign Reading [...] file Medical Devices Implanted Type Area Biomedical Photographer Device Identifier Shelf Expiration Date Model / Serial / Lot Ear Implant- 011 Implanted:11/24 (Quantity not on file) Ear Implant Ear [employer] Bernice Vega TORP Plasti-pore [id number] / / [id number] Description:[facility], [place], [place]. Ear implant-Vega TOPR Plasti-pore MRI Safe Procedures Procedure Name Priority Date/Time Associated Diagnosis Comments THYROID-STIMULATING HORMONE-SENSITIVE (S-TSH) Routine 10/27/2018 3:42 PM CDT Hypothyroidism Primary BASIC METABOLIC PANEL, S/P Routine 03/11/2018 1:58 PM CDT Dizziness Diplopia LIPID PANEL, S Routine 06/10/2016 10:40 AM EXCELSIOR MACHINE FEEDER from Last 3 Months or Most Recently Relevant to Health Maintenance Results * (ABNORMAL) S-TSH (Thyroid-Stimulating Hormone - Sensitive) (10/27/2018 3:42 PM CDT) TSH, Sensitive 10.7(H) 0.3 - 4.2 mIU/L 10/27/2018 5:20 PM CDT Comment: Biotin has been identified by the support team assoc as a potential interfering substance. ??Higher concentrations of biotin may be found in multivitamins, hair/nail supplements, and workout supplements. ??If the result does not match clinical observations, repeat testing after patient refrains from the use of supplements for at least 12 hours. Blood (Blood, Venous) 10/27/2018 3:42 PM CDT 10/27/2018 3:43 PM CDT us Deanne Tsang P.A.-C. LAB BLOOD ADD-ON Final Result Performing Organization Address City/State/[facility] de Phone Number [facility] [address] * Basic Metabolic Panel (03/11/2018 1:58 PM CDT) Potassium, S 4.0 3.6 - 5.2 mmol/L 03/11/2018 2:29 PM CDT [facility] Sodium, S 141 135 - 145 mmol/L 03/11/2018 2:29 PM CDT [facility] Chloride, S 101 98 - 107 mmol/L 03/11/2018 2:29 PM CDT [facility] Bicarbonate, S 27 22 - 29 mmol/L 03/11/2018 2:29 PM CDT [facility] Anion Gap 13 7 - 15 03/11/2018 2:29 PM CDT [facility] BUN (Blood Urea Nitrogen), S 12 6 - 21 mg/dL 03/11/2018 2:29 PM CDT [facility] Creatinine 0.62 0.59 - 1.04 mg/dL 03/11/2018 2:29 PM CDT [facility] eGFR-Non Black/ >90 >=60 mL/min/BSA 03/11/2018 2:29 PM CDT [facility] Comment: ----ADDITIONAL INFORMATION---- Estimated GFR calculated using the 2009 CKD_EPI creatinine equation. eGFR-Black/Afri can Slovak >90 >=60 mL/min/BSA 03/11/2018 2:29 PM CDT [facility] Comment: ----ADDITIONAL INFORMATION---- Estimated GFR calculated using the 2009 CKD_EPI creatinine equation. Calcium, Total, S 9.4 8.6 - 10.0 mg/dL 03/11/2018 2:29 PM CDT [facility] Glucose, S 95 70 - 140 mg/dL 03/11/2018 2:29 PM CDT [facility] Blood (Blood, Venous) 03/11/2018 1:58 PM CDT 03/11/2018 1:58 PM CDT Deanne Tsang P.A.-C. LAB BLOOD ADD-ON Final Result [facility] [address] [place] [address], [facility] * (ABNORMAL) Lipid Panel (06/10/2016 10:40 AM EXCELSIOR MACHINE FEEDER) Cholesterol, Total 275(H) <=199 MGDL POWERCHART Comment: [...] for FH and FDB is available through [employer]: FH/ADH Genetic Reflex Panel (test ADHP). Acquired (non-genetic) causes of markedly increased LDL cholesterol include cholestatic liver disease due to the presence of LpX. If a genetic form of hypercholesterolemia is suspected, family studies including biochemical testing for lipids (total cholesterol,triglycerides, LDL cholesterol and HDL cholesterol) are recommended. ??Please contact the laboratory at or the on-line test catalog at [employer] for information about how to order these tests or to speak with a genetic counselor. Further interpretation would require clinical information. Total Cholesterol/HDL Ratio 5 POWERCHART Blood 06/10/2016 10:4 0 AM EXCELSIOR MACHINE FEEDER us Ana Chery M.D. LAB BLOOD ADD-ON Final Result POWERCHART from Last 3 Months or Most Recently Relevant to Health Maintenance Insurance [employer] Care Teams Process Project Engineer Relationship Specialty Start Date End Date Elsewhere, Pcp PCP - General Internal Medicine 12/04/18
--- OUTSIDE RECORDS SUMMARY | 2024-03-13 00:23 | XMS_ITS | Clinical Summary ---
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 0 5 Active terbinafine 1% cream (LAMISIL) 1 % [...] TIMES DAILY. 180 Tablet 1 4 Active montelukast (SINGULAIR) 10 mg tabletIndications [...] or Wheezing. 150 mL 1 4 Active mirabegron EXTENDED-release (Myrbetriq) 50 mg tabletIndications :Urge urinary incontinence Take 1 Tablet (50 mg) by mouth once daily. 90 Tablet 3 4 Active PARoxetine (PAXIL) 40 mg tabletIndications :Anxiety and depression Take 1 Tablet (40 mg) by mouth once daily in the morning. 90 Tablet 3 4 Active tirzepatide, weight loss, [...] of need: 99. 1 Each 4 Active CPAPIndications:O SA (obstructive sleep apnea) CPAP (E0601) machine for home use at pressure: 13 CM , Choice of mask (A7030 or A7034) w/full face cushion (A7031) x1/mo, nasal cushion (A7032) x2/mo, or nasal pillows (A7033) x 2/mo; Length of Need: 99 months; Frequency of use: Daily 1 Each 4 Active oxygen-air delivery systems (HOME OXYGEN)Indication s:RODRICK (obstructive sleep apnea) Oxygen for home use. [...] of use: Daily 1 Each 4 Active cholecalciferol, Vitamin D3, 2,000 unit tabletIndications :Vitamin D deficiency TAKE 1 TABLET BY MOUTH DAILY 28 Tablet 12 4 Active furosemide (LASIX) 40 mg tabletIndications :SOB (shortness of breath) Take 1 Tablet (40 mg) by mouth once daily in the morning. 90 Tablet 2 4 Active omeprazole (PRILOSEC) 20 mg Delayed-Release capsuleIndication s:Chronic GERD Take 2 Capsules (40 mg) by mouth once daily before a meal. 180 Capsule 2 4 Active potassium chloride (Klor-Con 10) 10 mEq extended-release tabletIndications :SOB (shortness of breath) Take 2 Tablets (20 mEq) by mouth once daily with a meal. 180 Tablet 2 4 Active cholecalciferol, Vitamin D3, 2,000 unit tablet Take 2,000 units by mouth. 024 Discontinued omeprazole (PRILOSEC) 20 mg Delayed-Release capsuleIndication s:Chronic GERD TAKE 2 CAPSULES (40 MG) BY MOUTH ONCE DAILY BEFORE A MEAL. 180 Capsule 2 4 024 Discontinued(*A vailability/For mulary change/Cost of medication) furosemide (LASIX) 40 mg tabletIndications :SOB (shortness of breath) Take 1 Tablet (40 mg) by mouth once daily in the morning. 90 Tablet 3 4 024 Discontinued(*A vailability/For mulary change/Cost of medication) potassium chloride (Klor-Con 10) 10 mEq extended-release tabletIndications :SOB (shortness of breath) Take 2 Tablets (20 mEq) by mouth once daily with a meal. 180 Tablet 3 4 024 Discontinued(*A vailability/For mulary change/Cost of medication) Active Problems Problem Noted Date Diagnosed Date [...] and depression Dizziness Overview (04/23/2021): Eval by [facility] neurology 2018. Thought to be [...] Encounters Date Type Department Care Team Description 03/12/2024 Telephone [facility] [address] [place] [address] Geronimo Lamb MD Refill Request (Furosemide, omeprazole, potassium) 03/12/2024 Telephone [facility] [address] [place] [address] Geronimo Lamb MD Form 03/09/2024 Refill [facility] [address] [place] [address] Geronimo Lamb MD Refill Request (Furosemide, Omeprazole, Potassium Chloride, Cholecalciferol (Vitamin D3)) 03/05/2024 Telephone [facility] [address] [place] [address] Geronimo Lamb MD Lab 03/01/2024 Telephone [facility] [address] [facility] [address] [place] [phone] Luis Santos DO Results (CT CHEST HIGH RESOLUTION WO) 02/25/2024 8:38 AM CDT - 02/25/2024 11:59 PM CDT Hospital Encounter [address] [address] Luis Santos DO Wheezing 02/25/2024 8:30 AM CDT - 02/25/2024 8:37 AM CDT Hospital Encounter [facility] [address] [place] [address] Luis Santos DO Small airways disease; Wheezing 02/25/2024 Travel 02/24/2024 Orders Only [facility] Scanner 1 scan: (1-Ord) [facility], XR CHEST 2V, 02/24/2024 02/24/2024 Telephone [facility] [address] [place] [address] Geronimo Lamb MD Health Maintenance Update (Assisted Living Request) 02/06/2024 Telephone [facility] [address] [facility] [address] [facility] [address] [place] [address] Luis Santos DO Results (Overnight Oximetry On Room Air, with CPAP, 02/05/24) 02/06/2024 Orders Only [facility] [address] [place] [address] Luis Santos DO 1 scan: (1-Ord) Overnight Oximetry, On Room Air, with CPAP, 02/05/24 02/05/2024 2:30 PM CDT Office Visit [facility] [address] [place] [address] Paolo Limon MD Sleep Follow-up; Medication List Update (Awaiting Zepbound approval from insurance) 02/05/2024 Travel 02/05/2024 Telephone [facility] [address] [place] [address] Paolo Limon MD Questions (C pap machine ) 02/03/2024 Telephone [facility] [address] [place] [address] Geronimo Lamb MD Questions (Plan of care) 01/23/2024 Telephone [facility] [address] [place] [address] Geronimo aLmb MD Prior Authorization (tirzepatide, weight loss, (Zepbound) 2.5 mg/0.5 mL pen EXCLUDED) 01/22/2024 1:50 PM CDT Orders Only [facility] [address] [facility] [place] [id number] Lab, Appv Lab 01/22/2024 12:45 PM CDT Office Visit [facility] [address] [place] [address] Luis Santos, Consult (Lung Damage since COVID-19) 01/22/2024 Telephone [facility] [address] [facility] [address] [place] [phone] Luis Santos DO Testing (Needs PFT, esophagram, CT chest) 01/22/2024 Travel 01/20/2024 2:55 PM CDT Office Visit [facility] [address] [place] [address] Geronimo Lamb MD Follow Up 01/20/2024 Travel 01/03/2024 Refill [facility] [address] [place] [address] Geronimo Lamb MD Refill Request (Myrbetriq) from [...] Care Team (Late st Contact Info) Description 03/19/2024 1:15 PM CDT Office Visit [facility] [address] [place] [address] Geronimo Lamb MD [address] [place] [address] 04/08/2024 1:00 PM ORNAMENTAL BRICK INSTALLER Appointment [facility] [address] [facility] [address] [place] [address] Shazia Li, LENI [address] [place], [place] [id number] 05/12/2024 2:00 PM ORNAMENTAL BRICK INSTALLER Office Visit [facility] [address] [place] [address] Paolo Limon MD [address] [place] [address] Health Maintenance Due Date Last Done Comments [...] ANTI HIV 1/2 Routine 05/01/2022 4:36 PM ORNAMENTAL BRICK INSTALLER Encounter for screening for HIV ANTI HCV [...] <0.7 to define obstruction. Alayna Santos DO [facility] Luis Santos DO PFT ORD BEYOND NOW [place], [place] * HEMOGLOBIN (02/25/2024 9:50 AM CDT) HEMOGLOBIN 12.1 12.0 - 16.0 g/dL 02/25/2024 9:53 AM CDT [facility] MCV 92 80 - 100 fL 02/25/2024 9:53 AM CDT [facility] Blood BLOOD SPECIMEN / Unknown Venipuncture / Unknown 02/25/2024 9:50 AM CDT 02/25/2024 9:50 AM CDT Luis Santos DO HEMATOLOGY [facility] [address] [place] [address], * XR ESOPHAGUS (02/25/2024 9:20 AM CDT) Anatomical Region Laterality Modality Esophagus Radio Fluoroscop y, Radiographic Imaging 02/25/2024 9:20 AM CDT Impressions 02/25/2024 10:05 AM CDT 1. ??Mild esophageal dysmotility. 2. ??Otherwise normal esophagram without stricture or mass lesion. Narrative 02/25/2024 10:05 AM CDT For Patients: As a result of the 21st Century Cures Act, medical imaging exams and procedure reports are released immediately into your electronic medical record. You may view this report before your referring provider. If you have questions, please contact your health care provider. EXAM: XR ESOPHAGUS LOCATION: [facility] DATE: 02/25/2024 INDICATION: Wheezing and dysphagia. COMPARISON: [...] health care provider. EXAM: XR ESOPHAGUS LOCATION: [facility] DATE: 02/25/2024 INDICATION: Wheezing and dysphagia. [...] EXAM: CT CHEST HIGH RESOLUTION WO LOCATION: [facility] DATE: 02/25/2024 INDICATION: Shortness of breath. [...] EXAM: CT CHEST HIGH RESOLUTION WO LOCATION: [facility] DATE: 02/25/2024 INDICATION: Shortness of breath. [...] <0.10 <=0.35 kU/L 01/29/2024 2:13 PM CDT [facility] Aspergillus Fumigatus (M3) IGE <0.10 <=0.35 kU/L 01/29/2024 2:13 PM CDT [facility] Birch (T3) IgE <0.10 <=0.35 kU/L 01/29/2024 2:13 PM CDT [facility] Cat Dander (E1) IgE <0.10 <=0.35 kU/L 01/29/2024 2:13 PM CDT [facility] Cladosporium herbarum (M2) IgE <0.10 <=0.35 kU/L 01/29/2024 2:13 PM CDT [facility] Cockroach (I6) IgE <0.10 <=0.35 kU/L 01/29/2024 2:13 PM CDT [facility] Common Ragweed (W1) IgE <0.10 <=0.35 kU/L 01/29/2024 2:13 PM CDT [facility] D. Farinae (D2) IgE <0.10 <=0.35 kU/L 01/29/2024 2:13 PM CDT [facility] D. Pteronyssinus (D1) IgE <0.10 <=0.35 kU/L 01/29/2024 2:13 PM CDT [facility] Dog Dander (E5) IgE <0.10 <=0.35 kU/L 01/29/2024 2:13 PM CDT [facility] Elm (T8) IgE <0.10 <=0.35 kU/L 01/29/2024 2:13 PM CDT [facility] IMMUNOGLOBULIN E (IGE) 59.2 22.0 - 107.0 kU/L 01/29/2024 2:13 PM CDT [facility] MAPLE (BOX ELDER) (T1) IGE <0.10 <=0.35 kU/L 01/29/2024 2:13 PM CDT [facility] ORCHARD GRASS (G3) IGE <0.10 <=0.35 kU/L 01/29/2024 2:13 PM CDT [facility] RED TOP (BENT) GRASS (G9) IGE <0.10 <=0.35 kU/L 01/29/2024 2:13 PM CDT [facility] ROUGH VALENTINE ELDER (W16) IGE <0.10 <=0.35 kU/L 01/29/2024 2:13 PM CDT [facility] WHITE OAK (T7) IGE <0.10 <=0.35 kU/L 01/29/2024 2:13 PM CDT [facility] Blood BLOOD SPECIMEN / Unknown Venipuncture / Unknown 01/22/2024 2:02 PM CDT 01/22/2024 2:03 PM CDT Luis Santos DO SEND OUTS Performing Organization Address [facility] Co de Phone Number [facility] [address] [place] [address], [place] * IMMUNOGLOBULIN E,IGE (01/22/2024 2:02 PM CDT) IMMUNOGLOBULIN E (IGE) 55.3 22.0 - 107.0 kU/L 01/27/2024 1:59 PM CDT [facility] Blood BLOOD SPECIMEN / Unknown Venipuncture / Unknown 01/22/2024 2:02 PM CDT 01/22/2024 2:03 PM CDT Luis Santos DO CHEMISTRY Performing Organization Address [facility] Co de Phone Number [facility] [address] [place] [address], [place] * QFT MITOGEN PERFORMABLE (01/20/2024 4:00 PM CDT) MITOGEN 4.85 IU/mL 01/22/2024 12:48 PM CDT [facility] Blood BLOOD SPECIMEN / Unknown Venipuncture / Unknown 01/20/2024 4:00 PM CDT 01/20/2024 4:00 PM CDT Geronimo Lamb MD CHEMISTRY Performing Organization Address City/[facility] Co de Phone Number [facility] [address] [place] [address], [place] * QFT TB2 PERFORMABLE (01/20/2024 4:00 PM CDT) TB2 0.01 IU/mL 01/22/2024 10:03 AM CDT [facility] Blood BLOOD SPECIMEN / Unknown Venipuncture / Unknown 01/20/2024 4:00 PM CDT 01/20/2024 4:00 PM CDT Geronimo Lamb MD CHEMISTRY [facility] [address] [place] [address], [place] * QFT TB1 PERFORMABLE (01/20/2024 4:00 PM CDT) TB1 0.01 IU/mL 01/22/2024 10:[address] [facility] Blood BLOOD SPECIMEN / Unknown Venipuncture / Unknown 01/20/2024 4:00 PM CDT 01/20/2024 4:00 PM CDT Geronimo Lamb MD CHEMISTRY Performing Organization Address City/[facility]/ZIP Co de Phone Number [facility] [address] [place] [address], [place] * QUANTIFERON TB GOLD PLUS (01/20/2024 4:00 PM CDT) Pathologist [facility] QFTP NIL 0.00 01/22/2024 2:20 PM CDT [facility] TB1 0.01 IU/mL 01/22/2024 2:20 PM CDT [facility] TB2 0.01 IU/mL 01/22/2024 2:20 PM CDT [facility] MITOGEN 4.85 IU/mL 01/22/2024 2:20 PM CDT [facility] QFTP TB AG1 - NIL 0.01 024 2:20 PM CDT [facility] TB1-NIL % OF NIL 01/22/20 2:[address] [facility] Comment:Unable to calculate QFTP TB AG2 - NIL 0.01 024 2:20 PM CDT [facility] TB2-NIL % OF NIL 01/22/20 2:[address] [facility] Comment:Unable to calculate QFTP MITOGEN - NIL 4.85 2023 2:20 PM CDT [facility] QFTP QUANTIFERON INTERPRETATION Negative Negative 01/22/2024 2:20 PM CDT [facility] Blood BLOOD SPECIMEN / Unknown Venipuncture / Unknown 01/20/2024 4:00 PM CDT 01/20/2024 4:00 PM CDT Narrative [facility] - 01/22/2024 2:20 PM CDT M. [...] old. - women Geronimo Lamb MD CHEMISTRY [facility] [address] [place] [address], * HEMOGLOBIN A1C SCREENING (01/20/2024 4:00 PM CDT) HEMOGLOBIN A1C SCREENING 6.1 <=6.4 % 01/21/2024 9:15 AM CDT [facility] Blood BLOOD SPECIMEN / Unknown Venipuncture / Unknown 01/20/2024 4:00 PM CDT 01/20/2024 4:00 PM CDT Narrative [facility] - 01/21/2024 9:15 AM CDT ? (<5.7%) ?Normal ? (5.7% to 6.4%) ? Indicates prediabetes ? (>=6.5%) ? Confirms diabetes Falsely low levels may be seen with: Recent Transfusion, Recent Significant Blood Loss, Hemolytic Diseases, or Falsely elevated levels may be seen with: Untreated Anemias, Splenectomy Geronimo Lamb MD CHEMISTRY Performing Organization Address [facility] Co de Phone Number [facility] [address] [place] [address], [place] * TSH WITH REFLEX (01/20/2024 4:00 PM CDT) TSH 0.64 0.27 - 4.20 uIU/mL 01/21/2024 1:44 PM CDT [facility] Blood BLOOD SPECIMEN / Unknown Venipuncture / Unknown 01/20/2024 4:00 PM CDT 01/20/2024 4:00 PM CDT Narrative [facility] - 01/21/2024 1:44 PM CDT In Adults, TSH values between 5.00 and 10.00 uIU/ml do not necessarily indicate the presence of Hypothyroidism. Correlation with clinical findings such as presence of goiter and/or Thyroperoxidase (TPO) Antibody may be helpful. For more information please refer to SIVAN 2004; 291: 228-238. Geronimo Lamb MD CHEMISTRY Performing Organization Address [facility] Co de Phone Number [facility] [address] [place] [address], [place] * (ABNORMAL) LIPID PANEL W REFLEX MEASURED LDL (01/20/2024 4:00 PM CDT) CHOLESTEROL,TOTAL 261(H) 100 - 199 mg/dL 01/21/2024 1:44 PM CDT [facility] Comment: Cholesterol, Total Reference Ranges Desirable <200 mg/dL Borderline 200-239 mg/dL High >=240 mg/dL TRIGLYCERIDES 252(H) <150 mg/dL 01/21/2024 1:44 PM CDT [facility] HDL CHOLESTEROL 50 >40 mg/dL 1:44 PM CDT [facility] NON-HDL CHOLESTEROL 211(H) <145 mg/dl 01/21/2024 1:44 PM CDT [facility] CHOL/HDL RATIO 5.22(H) <4.50 01/21/2024 1:44 PM CDT [facility] LDL CHOLESTEROL 161(H) <=130 mg/dL 01/21/2024 1:44 PM CDT [facility] VLDL CHOLESTEROL 50(H) <=30 mg/dL 01/21/2024 1:44 PM CDT [facility] PROVIDER ORDERED STATUS RANDOM 01/21/2024 1:44 PM CDT [facility] Blood BLOOD SPECIMEN / Unknown Venipuncture / Unknown 01/20/2024 4:00 PM CDT 01/20/2024 4:00 PM CDT Geronimo Lamb MD CHEMISTRY [facility] [address] [place] [address], * BASIC METABOLIC PANEL (01/20/2024 4:00 PM [...] 4:00 PM CDT Geronimo Lamb MD CHEMISTRY [facility] [address] [place] [address], [place] * ANTI HIV 1/2 (05/01/2022 4:36 PM ORNAMENTAL BRICK INSTALLER) Pathologist [facility] HIV-1/HIV-2 ANTIBODY Non-Reacti ve Non-Reacti ve 05/04/2022 9:59 PM ORNAMENTAL BRICK INSTALLER [facility] Comment:HIV-1 p24 and HIV-1/ HIV-2 Ab not detected. Blood BLOOD SPECIMEN / Unknown Butterfly / Unknown 05/01/2022 4:36 PM ORNAMENTAL BRICK INSTALLER 05/01/2022 4:41 PM ORNAMENTAL BRICK INSTALLER Geronimo Lamb MD SEND OUTS [facility] [address] [place] [address], [place] * ANTI HCV (12/05/2021 9:30 AM CDT) Pathologist [facility] HEPATITIS C ANTIBODY Non-React shikha Non-React shikha 12/05/2021 9:16 PM CDT [facility] Comment:Antibodies to HCV no t detected; does not exclude the possibility of exposure to HCV. Blood BLOOD SPECIMEN / Unknown Venipuncture / Unknown 12/05/2021 9:30 AM CDT 12/05/2021 9:33 AM CDT Geronimo Lamb MD SEND OUTS [facility] [address] [place] [address], [place] * SCAN-MAMMOGRAPHY REPORT (02/24/2019 12:00 AM CDT) Anatomical Region Laterality Modality Other Scanner OTHER from Last 3 Months or Most Recently Relevant to Health Maintenance Care Teams Dredge Engineer Relationship Specialty Start Date End Date Geronimo Lamb MD [address] [place] [address] PCP - General Family Practice 04/23/21 Paolo Limon MD Sleep Medicine 10/28/11 Talon Durham MD Neurology Neurology 11/26/11 Laura Gardner PsyD, LP Psychology 09/14/13 [place] [address] [facility] [place] [address] Pulmonology Pulmonary Medicine 01/22/24
== END 2024-02-24 05:04 | disposition home or self-care (01) ==
LOC: AMB 03-13 00:20
PROVIDERS: PCP Family Medicine; Visit Provider Family Medicine
DX: R06.03 Acute respiratory distress (principal)
CPT/HCPCS: A0425; A0428

== ENCOUNTER 2024-03-13 22:38 | Emergency (ER) | payer OTHER, SELFPAY ==
[2024-03-13 22:48] VITALS: BP 128/90; PULSE 89; RESP 18; TEMP 36.7; O2SAT 95; BMI 47.0
--- NOTE | 2024-03-13 22:52 | ED_ITS ---
HPI - General Adult General Chief complaint: Unspecified Complaint, Adult Stated complaint: chest pain Time Seen by Provider: 03/13/24 22:41 History of Present Illness HPI narrative: pt woke up with what she calls sleep paralysis. Pt says she could not move, could not talk, but could pull her call light for help. Pt states she has some chest pain . When pt moved to bed, audible wheezing could be heard from pt. Pt has IV established from EMS. 12 lead done by 48 year old woman presenting via EMS. Chest pain is now settled. I note that it is reproducible on exam in the anterior right upper chest. She says this pain though is familiar. She is associating it with stress or anxiety actually and has been much more stress lately with a moved to [facility]. She does not recall any injury. Related Data Home Medications ?Medication ?Instructions ?Recorded ?Confirmed albuterol sulfate 90 mcg/actuation 1 - 2 puff inhalation Q4H PRN 11/30/21 03/20/24 aerosol inhaler mirabegron 50 mg tablet,extended 50 mg PO DAILY 11/30/21 03/20/24 release 24 hr (Myrbetriq) montelukast 10 mg tablet 10 mg PO HS 11/30/21 03/20/24 omeprazole 20 mg capsule,delayed 40 mg PO DAILY 02/26/22 03/20/24 release levetiracetam 750 mg tablet 750 mg PO BID 11/25/22 03/20/24 (Keppra) cholecalciferol (vitamin D3) 50 50 mcg PO DAILY 01/30/23 03/20/24 mcg (2,000 unit) capsule paroxetine HCl 40 mg tablet 40 mg PO DAILY 01/30/23 03/20/24 levothyroxine 100 mcg tablet 100 mcg PO DAILY 10/16/23 03/20/24 potassium chloride 10 mEq 20 meq PO DAILY 10/16/23 03/20/24 tablet,extended release acetaminophen 325 mg tablet 325 - 650 mg PO Q4-6H PRN 03/20/24 03/20/24 (Aminofen) aluminum-mag hydroxide-simethicone 5 - 10 ml PO 5XD PRN 03/20/24 03/20/24 200 mg-200 mg-20 mg/5 mL oral susp (Maalox Advanced) dextromethorphan HBr 10 mg/5 mL 5 - 10 mg PO Q4-6H PRN 03/20/24 03/20/24 oral syrup diphenhydramine HCl 25 mg capsule 25 - 50 mg PO Q8H PRN 03/20/24 03/20/24 (Banophen) ibuprofen 200 mg capsule 200 - 400 mg PO Q4-6H PRN 03/20/24 03/20/24 loperamide 2 mg tablet 1 mg PO Q6H PRN 03/20/24 03/20/24 (Anti-Diarrheal (loperamide)) magnesium hydroxide 400 mg/5 mL 15 - 30 ml PO DAILY PRN 03/20/24 03/20/24 oral suspension (Milk of Magnesia) terbinafine HCl 1 % topical cream applic topical Q12H 03/20/24 tirzepatide (weight loss) 2.5 2.5 mg subcut QWEEK 03/20/24 03/20/24 mg/0.5 mL subcutaneous pen injector (Zepbound) Previous Rx's ?Medication ?Instructions ?Recorded albuterol sulfate 2.5 mg/3 mL 2.5 mg (3 mL) inhalation Q8H PRN 02/02/23 (0.083 %) solution for nebulization #1 mL budesonide-formoterol HFA 160 2 puff inhalation BID #1 g 02/02/23 mcg-4.5 mcg/actuation aerosol inhaler (Symbicort) furosemide 40 mg tablet 40 mg PO DAILY #30 tabs 02/02/23 tiotropium bromide 2.5 2 puff inhalation DAILY #1 g 02/02/23 mcg/actuation mist for inhalation (Spiriva Respimat) doxycycline hyclate 100 mg capsule 100 mg PO BID #14 caps 02/24/24 prednisone 20 mg tablet 20 mg PO BID #10 tabs 02/24/24 Allergies Allergy/AdvReac Type Severity Reaction Status Date / Time azithromycin Allergy Intermediate Bloody Verified 03/20/24 13:02 Stools latex Allergy Intermediate Rash Verified 03/20/24 13:02 oxycodone Allergy Intermediate Agitated Verified 03/20/24 13:02 scopolamine Allergy Intermediate Tremors Verified 03/20/24 13:02 acetaminophen (From Percocet) Allergy Mild Verified 03/20/24 13:02 basil Allergy Rash Verified 03/20/24 13:02 Review of Systems Status of ROS: Reports: 6 or more systems reviewed and unremarkable except as noted in History and below [facility] Medical History Hypothyroidism ?E03.9 - Hypothyroidism, unspecified (ICD-10) Acute and chronic respiratory failure with hypoxia ?J96.21 - Acute and chronic respiratory failure with hypoxia (ICD-10) 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 - Unspecified convulsions (ICD-10) RODRICK (obstructive sleep apnea) ?G47.33 - Obstructive sleep apnea (adult) (pediatric) (ICD-10) ADHD ?F90.9 - Attention-deficit hyperactivity disorder, unspecified type (ICD-10) Hyperthyroidism ?E05.90 - Thyrotoxicosis, unspecified without thyrotoxic crisis or storm (ICD-10) Hydrocephalus ?G91.9 - Hydrocephalus, unspecified (ICD-10) Hyperlipidemia ?E78.5 - Hyperlipidemia, unspecified (ICD-10) Anxiety and depression ?F41.9 - Anxiety disorder, unspecified (ICD-10) ?F32.A - Depression, unspecified (ICD-10) Asthma ?J45.909 - Unspecified asthma, uncomplicated (ICD-10) Surgical History History of ear surgery ?Z98.890 - Other specified postprocedural states (ICD-10) History of strabismus surgery ?Z98.890 - Other specified postprocedural states (ICD-10) Social History Narrative: on disability since 2009; lives alone with her cat. nonsmoker, no drugs, no significant tobacco history adopted, her two adopted aunts are her family contacts. What is your current living situation?: I presently have a place to live Problems where you live: no known problems Problems where you live details: None In the past 12 months, utilities in danger of being shut off: no In past 12 months, lack of transportation kept you from medical appts, meetings, work, or getting things needed for daily living: no In the past 12 mos, have been you worried that your food would run out before you had money to buy more?: never true In the past 12 mos, the food you bought just didn't last and you didn't have money to buy more?: never true Highest level of school completed/degree received: Associate degree: academic program Smoking Status: Former smoker What tobacco products do you use: cigarettes Smoking quit date/years: <= 15 years ago Do you use any of these nicotine containing products: None Second hand tobacco smoke exposure: Yes How often do you have a drink containing alcohol: never How often do you have six or more drinks on one occasion: Never AUDIT-C Alcohol total score: 0 Non-prescribed substance use: denies use Caffeine: Yes (Pop ocassionally) How often does anyone, including family, friends and others, physically hurt you : never How often does anyone, including family, friends and others, insult or talk down to you: never How often does anyone, including family, friends and others, threaten you with harm: never How often does anyone, including family, friends and others, scream or curse at you: never service: No Exam Narrative: Exam Narrative: Generally seems rather sleepy and slower to respond. Cranial nerves otherwise seem to be intact. Usual strabismus noted. She endorses taking her evening medications. NAD. Skin is warm and dry. I do not see any indication of trauma. Lungs are clear. No difficulty breathing. Some discomfort to palpation over the upper left chest. This is the pain of which she was concerned. Abdomen is overweight soft and nontender. Const: Vital Signs, click to edit/add: Vital Signs - 24 hr 03/13/24 22:48 Temperature 98.0 F Pulse Rate [Left P ulse Oximeter] 89 Respiratory Rate 18 Blood Pressure [Ri ght Upper Arm] 128/90 H Pulse Oximetry 95 Oxygen Delivery Me thod Nasal Cannula Oxygen Flow Rate 2 Documenting provider has reviewed patient's vital signs: yes Course Vital Signs Vital signs: Initial Vital Signs Temperature 98.0 F 03/13/24 22:48 Temperature Source Temporal Artery Scan 03/13/24 22:48 Pulse Rate 89 03/13/24 22:48 Pulse Rhythm Regular 03/13/24 22:48 Respiratory Rate 18 03/13/24 22:48 Blood Pressure 128/90 H 03/13/24 22:48 Blood Pressure Mean 102 03/13/24 22:48 Blood Pressure Position Semi-Fowlers 03/13/24 22:48 Pulse Oximetry 95 03/13/24 22:48 Oxygen Delivery Method Nasal Cannula 03/13/24 22:48 Oxygen Flow Rate 2 03/13/24 22:48 Vital Signs Temperature 98.0 F 03/13/24 22:48 Pulse Rate 89 03/13/24 22:48 Respiratory Rate 18 03/13/24 22:48 Blood Pressure 128/90 H 03/13/24 22:48 Pulse Oximetry 95 03/13/24 22:48 Oxygen Delivery Method Nasal Cannula 03/13/24 22:48 Oxygen Flow Rate 2 03/13/24 22:48 Temperature 98.0 F 03/13/24 22:48 Pulse Rate 89 03/13/24 22:48 Respiratory Rate 18 03/13/24 22:48 Blood Pressure 128/90 H 03/13/24 22:48 Pulse Oximetry 95 03/13/24 22:48 Oxygen Delivery Method Nasal Cannula 03/13/24 22:48 Oxygen Flow Rate 2 03/13/24 22:48 Medications Administered Medications: Discontinued Medications Generic Name Dose Route Start Last Admin Trade Name Freq PRN Reason Stop Dose Admin Sodium Chloride 500 mls @ 1,000 mls/hr 03/14/24 01:16 03/14/24 01:53 0.9 % Sodium Chloride 500 Ml IV 03/14/24 01:45 Infused .Q30M ONE Infusion Ketorolac Tromethamine 30 mg 03/14/24 01:16 03/14/24 01:46 Ketorolac 30 Mg/Ml Inj IVP 03/14/24 01:17 30 mg ONCE ONE Administration Medical Decision Making MDM Narrative Medical decision making narrative: I return to reexamine, reassess and Teresita reports to me that she has had a ?seizure? to which she is referring to 1 of her pseudoseizures. Still responding in prior state. These are brought on by more stress certainly. Reproducibility of chest discomfort is reassuring. Would check chest x-ray though and EKGs noted below without ischemic changes. Would monitor here in the emergency department for further events. Respiratory status otherwise appears stable. Chest x-ray reviewed by me without pneumothorax or infiltrate. She did note was having somewhat of a headache and appreciate treatment for that. Improved with ketorolac and normal saline. See patient discharge plan for further discussion Medical Records Medical records reviewed: Yes I reviewed the patient's medical records Lab Data Lab results reviewed: Yes I reviewed the patient's lab results Labs: Lab Results 03/13/24 03/13/24 Range/Units 00:00 23:46 Hgb 12.3 (12.0-16.0) gm/dL Sodium 138 (135-149) mmol/L Potassium 3.6 (3.6-5.1) mmol/L Chloride 96 (96-114) mmol/L Carbon Dioxide 38 H (20-32) mmol/L Anion Gap 4 L (7-15) mEq/L BUN 11 (5-24) mg/dL Creatinine 0.8 (0.5-1.5) mg/dL Estimated Creat Clear 141.57 Estimated GFR 92 ml/min Glucose 110 (60-115) mg/dL Calcium 9.0 (8.4-10.6) mg/dL POC Troponin I 0.00 L (0.01-0.04) ng/ml ECG Data Attestation: I personally reviewed and interpreted this ECG as follows: (Normal sinus. Lower amplitude generally. Rate of 84) Discharge Plan Discharge Clinical Impression: Headache, Atypical chest pain, Anxiety, Other social stressor Additional Instructions: You look okay here today. I am reassured. Stay well-hydrated. Get quality and regular sleep. Return for marked increase in persistent pain, increasing and persistent shortness of breath, associated fever. Prescriptions: No Action levetiracetam [Keppra] 750 mg tablet 750 mg PO BID potassium chloride 10 mEq tablet extended release 20 meq PO DAILY Rx Instructions: take 2 tablets daily levothyroxine 100 mcg tablet 100 mcg PO DAILY diphenhydramine HCl [Banophen] 25 mg capsule 25 - 50 mg PO Q8H PRN Rx Instructions: allergies ibuprofen 200 mg capsule 200 - 400 mg PO Q4-6H PRN acetaminophen [Aminofen] 325 mg tablet 325 - 650 mg PO Q4-6H PRN magnesium hydroxide [Milk of Magnesia] 400 mg/5 mL suspension 15 - 30 ml PO DAILY PRN terbinafine HCl 1 % cream topical Q12H alum-mag hydroxide-simeth [Maalox Advanced] 200-200-20 mg/5 mL suspension 5 - 10 ml PO 5XD PRN Rx Instructions: administer between meals and at bedtime loperamide [Anti-Diarrheal (loperamide)] 2 mg tablet 1 mg PO Q6H PRN dextromethorphan HBr 10 mg/5 mL syrup 5 - 10 mg PO Q4-6H PRN Zepbound 2.5 mg/0.5 mL pen injector 2.5 mg subcut QWEEK Rx Instructions: for 4 weeks montelukast 10 mg tablet 10 mg PO HS mirabegron [Myrbetriq] 50 mg tablet extended release 24 hr 50 mg PO DAILY Patient Comments: albuterol sulfate 90 mcg/actuation HFA aerosol inhaler 1 - 2 puff INHALATION Q4H PRN cholecalciferol (vitamin D3) 50 mcg (2,000 unit) capsule 50 mcg PO DAILY paroxetine HCl 40 mg tablet 40 mg PO DAILY Patient Comments: furosemide 40 mg Tablet 40 mg PO DAILY Qty: 30 0RF albuterol sulfate 2.5 mg /3 mL (0.083 %) solution for nebulization 2.5 mg inhalation Q8H PRNQty: 1 0RF budesonide-formoterol [Symbicort] 160-4.5 mcg/actuation HFA aerosol inhaler 2 puff INHALATION BID Qty: 1 0RF Spiriva Respimat 2.5 mcg/actuation mist 2 puff inhalation DAILY Qty: 1 0RF prednisone 20 mg tablet 20 mg PO BID Qty: 10 0RF doxycycline hyclate 100 mg capsule 100 mg PO BID Qty: 14 0RF omeprazole 20 mg capsule,delayed release(DR/EC) 40 mg PO DAILY Follow Up/Referrals: Geronimo Lamb MD [Primary Care Provider] - Stand Alone Forms: [facility] Info Instructions
--- NOTE | 2024-03-13 23:46 | CRLHL7_ITS ---
For Patients: As a result of the Century Cures Act, medical imaging exams and procedure reports are released immediately into your electronic medical record. You may view this report before your referring provider. If you have questions, please contact your health care provider. INDICATION: Left upper chest pain. TECHNIQUE: Chest 1 view. COMPARISON: 02/24/2024. FINDINGS: Cardiovascular and mediastinum: Heart size and vasculature are normal in caliber and appearance. Lungs and pleural spaces: Lungs are clear. No sign of infiltrate or mass. No sign of pleural effusion. No pneumothorax. Bones and soft tissues: No significant findings. IMPRESSION: Unremarkable chest. Dictated by Hank Broderick MD @ 03/14/2024 1:09:11 AM (Electronically Signed)
--- OUTSIDE RECORDS SUMMARY | 2024-03-13 23:56 | XMS_ITS ---
Author Organization [facility] Address [address] [place] [address] Care Team Providers Care Medical Records Clerk Name Role Phone Unavailable Unavailable Unavailable Surgery Details Not on file Complications Check Surgery Details section. Procedure Estimated Blood Loss Check Surgery Details section. Procedure Findings Check Surgery Details section. Procedure Specimens Taken Check Surgery Details section.
--- OUTSIDE RECORDS SUMMARY | 2024-03-13 23:56 | XMS_ITS | Clinical Summary ---
Author Organization [facility] Address [address] [place] [address] Care Team Providers Care Speech Scientist Name Role Phone Elsewhere, Pcp Primary Care Provider Unavailabl e Source Comments Patient records contain information from all sites at [facility]. For routine questions regarding patient records, call [phone] during business hours, M-F 8:00 AM - 5:00 PM Central Time. Record requests for emergency care only can be directed to [phone] at any time.[facility] Allergies Active Allergy Reactions Criticality Noted [...] Sex Assigned at Female 06/02/2018 2:11 PM BASEBALL WINDER Legal Sex Female 5:08 AM BASEBALL WINDER Gender Identity Female 06/02/2018 2:11 PM BASEBALL WINDER Sexual Orientation Choose not to disclose 2018 2:11 PM BASEBALL WINDER Last Filed Vital Signs Vital Sign Reading [...] 023, 09/14/2013 Medical Devices Implanted Type Area Rn Pain Management Device Identifier Shelf Expiration Date Model / Serial / Lot Ear Implant- [id number] Implanted:11/24 (Quantity not on file) Ear Implant Ear Olympus Bernice Vega TORP Plasti-pore [id number] / / [id number] Description:[facility], [place], [place]. Ear implant-Vega TOPR Plasti-pore MRI Safe Procedures Procedure Name Priority Date/Time Associated Diagnosis Comments THYROID-STIMULATING HORMONE-SENSITIVE (S-TSH) Routine 10/27/2018 3:42 PM CDT Hypothyroidism Primary BASIC METABOLIC PANEL, S/P Routine 03/11/2018 1:58 PM CDT Dizziness Diplopia LIPID PANEL, S Routine 06/10/2016 10:40 AM BASEBALL WINDER from Last 3 Months or Most Recently Relevant to Health Maintenance Results * (ABNORMAL) S-TSH (Thyroid-Stimulating Hormone - Sensitive) (10/27/2018 3:42 PM CDT) TSH, Sensitive 10.7(H) 0.3 - 4.2 mIU/L 10/27/2018 5:20 PM CDT Comment: Biotin has been identified by the credit verification clerk as a potential interfering substance. ??Higher concentrations of biotin may be found in multivitamins, hair/nail supplements, and workout supplements. ??If the result does not match clinical observations, repeat testing after patient refrains from the use of supplements for at least 12 hours. Blood (Blood, Venous) 10/27/2018 3:42 PM CDT 10/27/2018 3:43 PM CDT Deanne Tsang P.A.-C. LAB BLOOD ADD-ON Final Result [facility] [address] [place] [address], [facility] * Basic Metabolic Panel (03/11/2018 1:58 PM CDT) Pathologist [facility] Potassium, S 4.0 3.6 - 5.2 mmol/L 03/11/2018 2:29 PM CDT [facility] Sodium, S 141 135 - 145 mmol/L 03/11/2018 2:29 PM CDT [facility] Chloride, S 101 98 - 107 mmol/L 03/11/2018 2:29 PM CDT [facility] Bicarbonate, S 27 22 - 29 mmol/L 03/11/2018 2:29 PM CDT [facility] Anion Gap 13 7 - 15 03/11/2018 2:29 PM CDT [facility] BUN (Blood Urea Nitrogen), S 12 6 - 21 mg/dL 03/11/2018 2:29 PM CDT [facility] Creatinine 0.62 0.59 - 1.04 mg/dL 03/11/2018 2:29 PM CDT [facility] eGFR-Non Black/ >90 >=60 mL/min/BSA 03/11/2018 2:29 PM CDT [facility] Comment: ----ADDITIONAL INFORMATION---- Estimated GFR calculated using the 2009 CKD_EPI creatinine equation. eGFR-Black/Afri can Austrian >90 >=60 mL/min/BSA 03/11/2018 2:29 PM CDT [facility] Comment: ----ADDITIONAL INFORMATION---- Estimated GFR calculated using the 2009 CKD_EPI creatinine equation. Calcium, Total, S 9.4 8.6 - 10.0 mg/dL 03/11/2018 2:29 PM CDT [facility] Glucose, S 95 70 - 140 mg/dL 03/11/2018 2:29 PM CDT [facility] Blood (Blood, Venous) 03/11/2018 1:58 PM CDT 03/11/2018 1:58 PM CDT us Deanne Tsang P.A.-C. LAB BLOOD ADD-ON Final Result Performing Organization Address City/State/[facility] Co de Phone Number [facility] [address] [place] [address], [facility] * (ABNORMAL) Lipid Panel (06/10/2016 10:40 AM BASEBALL WINDER) [facility] [place] Signature Cholesterol, Total 275(H) <=199 MGDL POWERCHART [...] for FH and FDB is available through [facility]: FH/ADH Genetic Reflex Panel (test ADHP). Acquired (non-genetic) causes of markedly increased LDL cholesterol include cholestatic liver disease due to the presence of LpX. If a genetic form of hypercholesterolemia is suspected, family studies including biochemical testing for lipids (total cholesterol,triglycerides, LDL cholesterol and HDL cholesterol) are recommended. ??Please contact the laboratory at or the on-line test catalog at [id number] for information about how to order these tests or to speak with a genetic counselor. Further interpretation would require clinical information. Total Cholesterol/HDL Ratio 5 POWERCHART Blood 06/10/2016 10:4 0 AM BASEBALL WINDER us Ana Chery M.D. LAB BLOOD ADD-ON Final Result POWERCHART from Last 3 Months or Most Recently Relevant to Health Maintenance Insurance [facility] Care Teams Speech Scientist Relationship Specialty Start Date End Date Elsewhere, Pcp PCP - General Internal Medicine 12/04/18
--- OUTSIDE RECORDS SUMMARY | 2024-03-13 23:56 | XMS_ITS | Clinical Summary ---
Author Organization [employer] [facility] Address [place], [place] [address] Care Team Providers Care Psychiatric Clinical Nurse Specialist Name Role Phone Paolo Limon MD Unavailable Talon Durham MD Unavailable [phone] Laura GardneryD, Unavailable [phone] Geronimo Lamb MD Primary Care Provider Luis Santos DO Unavailable [phone] Allergies Active Allergy Reactions Criticality Noted Date [...] Start Date End Date Status [facility], medication financial planner with alarm 1 unit 0 4 [...] and depression Dizziness Overview (04/23/2021): Eval by [facility] neurology 2018. Thought to be [...] Type Department Care Team Description 03/12/2024 Telephone [facility] [address] [place] [address] Geronimo Lamb MD Refill Request (Furosemide, omeprazole, potassium) 03/12/2024 Telephone [facility] [address] [place] [address] Geronimo Lamb MD Form 03/09/2024 Refill [facility] [address] [place] [address] Geronimo Lamb MD Refill Request (Furosemide, Omeprazole, Potassium Chloride, Cholecalciferol (Vitamin D3)) 03/05/2024 Telephone [facility] [address] [place] [address] Geronimo Lamb MD Lab 03/01/2024 Telephone [facility] [address] [facility] [address] [place] [phone] Luis Santos DO Results (CT CHEST HIGH RESOLUTION WO) 02/25/2024 8:38 AM CDT - 02/25/2024 11:59 PM CDT Hospital Encounter [address] [address] Luis Santos DO Wheezing 02/25/2024 8:30 AM CDT - 02/25/2024 8:37 AM CDT Hospital Encounter [facility] [address] [place] [address] Luis Santos DO Small airways disease; Wheezing 02/25/2024 Travel 02/24/2024 Orders Only [facility] Scanner 1 scan: (1-Ord) [facility], XR CHEST 2V, 02/24/2024 02/24/2024 Telephone [facility] [address] [place] [address] Geronimo Lamb MD Health Maintenance Update (Assisted Living Request) 02/06/2024 Telephone [facility] [address] [facility] [address] [facility] [address] [place] [address] Luis Santos DO Results (Overnight Oximetry On Room Air, with CPAP, 02/05/24) 02/06/2024 Orders Only [facility] [address] [place] [address] Luis Santos DO 1 scan: (1-Ord) Overnight Oximetry, On Room Air, with CPAP, 02/05/24 02/05/2024 2:30 PM CDT Office Visit [facility] [address] [place] [address] Paolo Limon MD Sleep Follow-up; Medication List Update (Awaiting Zepbound approval from insurance) 02/05/2024 Travel 02/05/2024 Telephone [facility] [address] [place] [address] Paolo Limon MD Questions (C pap machine ) 02/03/2024 Telephone [facility] [address] [place] [address] Geronimo Lamb MD Questions (Plan of care) 01/23/2024 Telephone [facility] [address] [place] [address] Geronimo Lamb MD Prior Authorization (tirzepatide, weight loss, (Zepbound) 2.5 mg/0.5 mL pen EXCLUDED) 01/22/2024 1:50 PM CDT Orders Only [facility] [address] [facility] [place] [phone] Lab, Appv Lab 01/22/2024 12:45 PM CDT Office Visit [facility] [address] [place] [address] Luis Santos, Consult (Lung Damage since COVID-19) 01/22/2024 Telephone [facility] [address] [facility] [address] [place] [phone] Luis Santos DO Testing (Needs PFT, esophagram, CT chest) 01/22/2024 Travel 01/20/2024 2:55 PM CDT Office Visit [facility] [address] [place] [address] Geronimo Lamb MD Follow Up 01/20/2024 Travel 01/03/2024 Refill [facility] [address] [place] [address] Geronimo Lamb MD Refill Request (Myrbetriq) from [...] Description 03/19/2024 1:15 PM CDT Office Visit [facility] [address] [place] [address] Geronimo Lamb MD [address] [place] [address] 04/08/2024 1:00 PM RETAIL DEPARTMENT SUPERVISOR Appointment [facility] [address] [facility] [place] [address] Shazia Li, LENI [address] [place], [place] [phone] 05/12/2024 2:00 PM RETAIL DEPARTMENT SUPERVISOR Office Visit [facility] [address] [place] [address] Paolo Limon MD [address] [place] [address] Health Maintenance Due Date Last Done Comments [...] ANTI HIV 1/2 Routine 05/01/2022 4:36 PM RETAIL DEPARTMENT SUPERVISOR Encounter for screening for HIV ANTI HCV [...] <0.7 to define obstruction. Alayna Santos DO [facility] Luis Santos DO PFT ORD BEYOND NOW [place], [place] * HEMOGLOBIN (02/25/2024 9:50 AM CDT) HEMOGLOBIN 12.1 12.0 - 16.0 g/dL 02/25/2024 9:53 AM CDT [facility] MCV 92 80 - 100 fL 02/25/2024 9:53 AM CDT [facility] Blood BLOOD SPECIMEN / Unknown Venipuncture / Unknown 02/25/2024 9:50 AM CDT 02/25/2024 9:50 AM CDT Luis Santos DO HEMATOLOGY [facility] [address] [place] [address], * XR ESOPHAGUS (02/25/2024 9:20 AM CDT) [...] health care provider. EXAM: XR ESOPHAGUS LOCATION: [facility] DATE: 02/25/2024 INDICATION: Wheezing and dysphagia. [...] EXAM: CT CHEST HIGH RESOLUTION WO LOCATION: [facility] DATE: 02/25/2024 INDICATION: Shortness of breath. [...] EXAM: CT CHEST HIGH RESOLUTION WO LOCATION: [facility] DATE: 02/25/2024 INDICATION: Shortness of breath. [...] 01/29/2024 2:13 PM CDT [facility] Aspergillus Fumigatus (M3) IGE <0.10 <=0.35 kU/L 01/29/2024 2:13 PM CDT [facility] Birch (T3) IgE <0.10 <=0.35 kU/L 01/29/2024 2:13 PM CDT [facility] Cat Dander (E1) IgE <0.10 <=0.35 kU/L 01/29/2024 2:13 PM CDT [facility] Cladosporium herbarum (M2) IgE <0.10 <=0.35 kU/L 01/29/2024 2:13 PM CDT [facility] Cockroach (I6) IgE <0.10 <=0.35 kU/L 01/29/2024 2:13 PM CDT [facility] Common Ragweed (W1) IgE <0.10 <=0.35 kU/L 01/29/2024 2:13 PM CDT [facility] D. Farinae (D2) IgE <0.10 <=0.35 kU/L 01/29/2024 2:13 PM CDT [facility] D. Pteronyssinus (D1) IgE <0.10 <=0.35 kU/L 01/29/2024 2:13 PM CDT [facility] Dog Dander (E5) IgE <0.10 <=0.35 kU/L 01/29/2024 2:13 PM CDT [facility] Elm (T8) IgE <0.10 <=0.35 kU/L 01/29/2024 2:13 PM CDT [facility] IMMUNOGLOBULIN E (IGE) 59.2 22.0 - 107.0 kU/L 01/29/2024 2:13 PM CDT [facility] MAPLE (BOX ELDER) (T1) IGE <0.10 <=0.35 kU/L 01/29/2024 2:13 PM CDT [facility] ORCHARD GRASS (G3) IGE <0.10 <=0.35 kU/L 01/29/2024 2:13 PM CDT [facility] RED TOP (BENT) GRASS (G9) IGE <0.10 <=0.35 kU/L 01/29/2024 2:13 PM CDT [facility] ROUGH VALENTINE ELDER (W16) IGE <0.10 <=0.35 kU/L 01/29/2024 2:13 PM CDT [facility] WHITE [place]AK (T7) IGE <0.10 <=0.35 kU/L 01/29/2024 2:13 PM CDT [facility] Blood BLOOD SPECIMEN / Unknown Venipuncture / Unknown 01/22/2024 2:02 PM CDT 01/22/2024 2:03 PM CDT Luis Santos DO SEND OUTS Performing Organization Address [facility] Co de Phone Number [facility] [address] [place] [address], [place] * IMMUNOGLOBULIN E,IGE (01/22/2024 2:02 PM CDT) IMMUNOGLOBULIN E (IGE) 55.3 22.0 - 107.0 kU/L 01/27/2024 1:59 PM CDT [facility] Blood BLOOD SPECIMEN / Unknown Venipuncture / Unknown 01/22/2024 2:02 PM CDT 01/22/2024 2:03 PM CDT Luis Santos DO CHEMISTRY Performing Organization Address [facility] Co de Phone Number [facility] [address] [place] [address], [place] * QFT MITOGEN PERFORMABLE (01/20/2024 4:00 PM CDT) MITOGEN 4.85 IU/mL 01/22/2024 12:48 PM CDT [facility] Blood BLOOD SPECIMEN / Unknown Venipuncture / Unknown 01/20/2024 4:00 PM CDT 01/20/2024 4:00 PM CDT Geronimo Lamb MD CHEMISTRY Performing Organization Address City[facility] Co de Phone Number [facility] [address] [place] [address], [place] * QFT TB2 PERFORMABLE (01/20/2024 4:00 PM CDT) TB2 0.01 IU/mL 01/22/2024 10:03 AM CDT [facility] Blood BLOOD SPECIMEN / Unknown Venipuncture / Unknown 01/20/2024 4:00 PM CDT 01/20/2024 4:00 PM CDT Geronimo Lamb MD CHEMISTRY [facility] [address] [place] [address], [place] * QFT TB1 PERFORMABLE (01/20/2024 4:00 PM CDT) TB1 0.01 IU/mL 01/22/2024 10:04 AM CDT [facility] Blood BLOOD SPECIMEN / Unknown Venipuncture / Unknown 01/20/2024 4:00 PM CDT 01/20/2024 4:00 PM CDT Geronimo Lamb MD CHEMISTRY Performing Organization Address City/[facility]/ZIP Co de Phone Number [facility] [address] [place] [address], [place] * QUANTIFERON TB GOLD PLUS (01/20/2024 4:00 PM CDT) Pathologist [facility] QFTP NIL 0.00 01/22/2024 2:20 PM CDT [facility] TB1 0.01 IU/mL 01/22/2024 2:20 PM CDT [facility] TB2 0.01 IU/mL 01/22/2024 2:20 PM CDT [facility] MITOGEN 4.85 IU/mL 01/22/2024 2:20 PM CDT [facility] QFTP TB AG1 - NIL 0.01 024 2:20 PM CDT [facility] TB1-NIL % OF NIL 01/22/20 2:20 PM CDT [facility] Comment:Unable to calculate QFTP TB AG2 - NIL 0.01 024 2:20 PM CDT [facility] TB2-NIL % OF NIL 01/22/20 2:20 PM CDT [facility] Comment:Unable to calculate QFTP MITOGEN - NIL 4.85 2023 2:20 PM CDT [facility] QFTP QUANTIFERON INTERPRETATION Negative Negative 01/22/2024 2:20 PM CDT [facility] Blood BLOOD SPECIMEN / Unknown Venipuncture / Unknown 01/20/2024 4:00 PM CDT 01/20/2024 4:00 PM CDT Narrative [facility] - 01/22/2024 2:20 PM CDT M. [...] old. - women Geronimo Lamb MD CHEMISTRY [facility] [address] [place] [address], * HEMOGLOBIN A1C SCREENING (01/20/2024 4:00 PM CDT) HEMOGLOBIN A1C SCREENING 6.1 <=6.4 % 01/21/2024 9:15 AM CDT [facility] Blood BLOOD SPECIMEN / Unknown Venipuncture / Unknown 01/20/2024 4:00 PM CDT 01/20/2024 4:00 PM CDT Narrative [facility] - 01/21/2024 9:15 AM CDT ? (<5.7%) ?Normal ? (5.7% to 6.4%) ? Indicates prediabetes ? (>=6.5%) ? Confirms diabetes Falsely low levels may be seen with: Recent Transfusion, Recent Significant Blood Loss, Hemolytic Diseases, or Falsely elevated levels may be seen with: Untreated Anemias, Splenectomy Geronimo Lamb MD CHEMISTRY Performing Organization Address [facility] Co de Phone Number [facility] [address] [place] [address], [place] * TSH WITH REFLEX (01/20/2024 4:00 PM CDT) TSH 0.64 0.27 - 4.20 uIU/mL 01/21/2024 1:44 PM CDT [facility] Blood BLOOD SPECIMEN / Unknown Venipuncture / Unknown 01/20/2024 4:00 PM CDT 01/20/2024 4:00 PM CDT Narrative [facility] - 01/21/2024 1:44 PM CDT In Adults, TSH values between 5.00 and 10.00 uIU/ml do not necessarily indicate the presence of Hypothyroidism. Correlation with clinical findings such as presence of goiter and/or Thyroperoxidase (TPO) Antibody may be helpful. For more information please refer to SIVAN 2004; 291: 228-238. Geronimo Lamb MD CHEMISTRY Performing Organization Address [facility] Co de Phone Number [facility] [address] [place] [address], [place] * (ABNORMAL) LIPID PANEL W REFLEX MEASURED LDL (01/20/2024 4:00 PM CDT) CHOLESTEROL,TOTAL 261(H) 100 - 199 mg/dL 01/21/2024 1:44 PM CDT [facility] Comment: Cholesterol, Total Reference Ranges Desirable <200 mg/dL Borderline 200-239 mg/dL High >=240 mg/dL TRIGLYCERIDES 252(H) <150 mg/dL 01/21/2024 1:44 PM CDT [facility] HDL CHOLESTEROL 50 >40 mg/dL 1:44 PM CDT [facility] NON-HDL CHOLESTEROL 211(H) <145 mg/dl 01/21/2024 1:44 PM CDT [facility] CHOL/HDL RATIO 5.22(H) <4.50 01/21/2024 1:44 PM CDT [facility] LDL CHOLESTEROL 161(H) <=130 mg/dL 01/21/2024 1:44 PM CDT [facility] VLDL CHOLESTEROL 50(H) <=30 mg/dL 01/21/2024 1:44 PM CDT [facility] PROVIDER ORDERED STATUS RANDOM 01/21/2024 1:44 PM CDT [facility] Blood BLOOD SPECIMEN / Unknown Venipuncture / Unknown 01/20/2024 4:00 PM CDT 01/20/2024 4:00 PM CDT Geronimo Lamb MD CHEMISTRY [facility] [address] [place] [address], * BASIC METABOLIC PANEL (01/20/2024 4:00 PM CDT) SODIUM 139 136 - 145 mmol/L 01/21/2024 1:44 PM CDT [facility] POTASSIUM 4.0 3.5 - 5.1 mmol/L 01/21/2024 1:44 PM CDT [facility] CHLORIDE 100 98 - 107 mmol/L 01/21/2024 1:44 PM CDT [facility] CO2,TOTAL 28 22 - 29 mmol/L 01/21/2024 1:44 PM CDT [facility] ANION GAP 11 5 - 18 01/21/2024 1:44 PM CDT [facility] GLUCOSE 98 70 - 99 mg/dL 01/21/2024 1:44 PM CDT [facility] CALCIUM 9.2 8.6 - 10.0 mg/dL 01/21/2024 1:44 PM CDT [facility] BUN 12 6 - 20 mg/dL 01/21/2024 1:44 PM CDT [facility] CREATININE 0.79 0.50 - 0.90 mg/dL 01/21/2024 1:44 PM CDT [facility] BUN/CREAT RATIO 15 10 - 20 4 1:44 PM CDT [facility] eGFR >90 >90 mL/min/1.7 3m2 01/21/2024 1:44 PM CDT [facility] Comment:As of 2021, eG [...] 4:00 PM CDT Geronimo Lamb MD CHEMISTRY [facility] [address] [place] [address], [place] * ANTI HIV 1/2 (05/01/2022 4:36 PM RETAIL DEPARTMENT SUPERVISOR) Pathologist [facility] HIV-1/HIV-2 ANTIBODY Non-Reacti ve Non-Reacti ve 05/04/2022 9:59 PM RETAIL DEPARTMENT SUPERVISOR [facility] Comment:HIV-1 p24 and HIV-1/ HIV-2 Ab not detected. Blood BLOOD SPECIMEN / Unknown Butterfly / Unknown 05/01/2022 4:36 PM RETAIL DEPARTMENT SUPERVISOR 05/01/2022 4:41 PM RETAIL DEPARTMENT SUPERVISOR Geronimo Lamb MD SEND OUTS [facility] [address] [place] [address], [place] * ANTI HCV (12/05/2021 9:30 AM CDT) Pathologist [facility] HEPATITIS C ANTIBODY Non-React shikha Non-React shikha 12/05/2021 9:16 PM CDT [facility] Comment:Antibodies to HCV no t detected; does not exclude the possibility of exposure to HCV. Blood BLOOD SPECIMEN / Unknown Venipuncture / Unknown 12/05/2021 9:30 AM CDT 12/05/2021 9:33 AM CDT Geronimo Lamb MD [facility] OUTS [facility] [address] [place] [address], [place] * SCAN-MAMMOGRAPHY REPORT (02/24/2019 12:00 AM CDT) Anatomical Region Laterality Modality Other Scanner OTHER from Last 3 Months or Most Recently Relevant to Health Maintenance Care Teams Psychiatric Clinical Nurse Specialist Relationship Specialty Start Date End Date Geronimo Lamb MD [address] [place] [address] PCP - General Family Practice 04/23/21 Paolo Limon MD Sleep Medicine 10/28/11 Talon Durham MD Neurology Neurology 11/26/11 Laura Gardner PsyD, LP Psychology 09/14/13 [place] [address] [facility] [place] [address] Pulmonology Pulmonary Medicine 01/22/24
--- OUTSIDE RECORDS SUMMARY | 2024-03-13 23:56 | XMS_ITS | Referral Summary ---
Author Organization [facility] Address [address] [place] [address] Care Team Providers Care Spine Surgeon Name Role Phone Elsewhere, Pcp Primary Care Provider Unavailabl e Source Comments Patient records contain information from all sites at [facility]. For routine questions regarding patient records, call [phone] during business hours, M-F 8:00 AM - 5:00 PM Central Time. Record requests for emergency care only can be directed to [phone] at any time.[facility] Allergies Active Allergy Reactions Criticality Noted Date [...] Sex Assigned at Female 06/02/2018 2:11 PM PACKAGE CRIMPER Legal Sex Female 5:08 AM PACKAGE CRIMPER Gender Identity Female 06/02/2018 2:11 PM PACKAGE CRIMPER Sexual Orientation Choose not to disclose 2018 2:11 PM PACKAGE CRIMPER Last Filed Vital Signs Vital Sign Reading [...] on file Medical Devices Implanted Type Area Acupressurist Device Identifier Shelf Expiration Date Model / Serial / Lot Ear Implant- [id number] Implanted:11/24 (Quantity not on file) Ear Implant Ear Olympus Bernice Vega TORP Plasti-pore [id number] / / [id number] Description:[facility] [place], [place]. Ear implant-Vega TOPR Plasti-pore MRI Safe Procedures Procedure Name Priority Date/Time Associated Diagnosis Comments THYROID-STIMULATING HORMONE-SENSITIVE (S-TSH) Routine 10/27/2018 3:42 PM CDT Hypothyroidism Primary BASIC METABOLIC PANEL, S/P Routine 03/11/2018 1:58 PM CDT Dizziness Diplopia LIPID PANEL, S Routine 06/10/2016 10:40 AM PACKAGE CRIMPER from Last 3 Months or Most Recently Relevant to Health Maintenance Results * (ABNORMAL) S-TSH (Thyroid-Stimulating Hormone - Sensitive) (10/27/2018 3:42 PM CDT) TSH, Sensitive 10.7(H) 0.3 - 4.2 mIU/L 10/27/2018 5:20 PM CDT Comment: Biotin has been identified by the fuel yard operator as a potential interfering substance. ??Higher [...] BLOOD ADD-ON Final Result Performing Organization Address City/State/[facility] de Phone Number [facility] [address] * Basic Metabolic Panel (03/11/2018 1:58 PM CDT) Potassium, S 4.0 3.6 - 5.2 mmol/L 03/11/2018 2:29 PM CDT [facility] Sodium, S 141 135 - 145 mmol/L 03/11/2018 2:29 PM CDT [facility] Chloride, S 101 98 - 107 mmol/L 03/11/2018 2:29 PM CDT [facility] Bicarbonate, S 27 22 - 29 mmol/L 03/11/2018 2:29 PM CDT [facility] Anion Gap 13 7 - 15 03/11/2018 2:29 PM CDT [facility] BUN (Blood Urea Nitrogen), S 12 6 - 21 mg/dL 03/11/2018 2:29 PM CDT [facility] Creatinine 0.62 0.59 - 1.04 mg/dL 03/11/2018 2:29 PM CDT [facility] eGFR-Non Black/ >90 >=60 mL/min/BSA 03/11/2018 2:29 PM CDT [facility] Comment: ----ADDITIONAL INFORMATION---- Estimated GFR calculated using the 2009 CKD_EPI creatinine equation. eGFR-Black/Afri can Guamanian >90 >=60 mL/min/BSA 03/11/2018 2:29 PM CDT [facility] Comment: ----ADDITIONAL INFORMATION---- Estimated GFR calculated using the 2009 CKD_EPI creatinine equation. Calcium, Total, S 9.4 8.6 - 10.0 mg/dL 03/11/2018 2:29 PM CDT [facility] Glucose, S 95 70 - 140 mg/dL 03/11/2018 2:29 PM CDT [facility] Blood (Blood, Venous) 03/11/2018 1:58 PM CDT 03/11/2018 1:58 PM CDT Deanne Tsang P.A.-C. LAB BLOOD ADD-ON Final Result [facility] [address] [place] [address], [facility] * (ABNORMAL) Lipid Panel (06/10/2016 10:40 AM PACKAGE CRIMPER) Cholesterol, Total 275(H) <=199 MGDL POWERCHART Comment: [...] for FH and FDB is available through [place] [facility]: FH/ADH Genetic Reflex Panel (test ADHP). Acquired (non-genetic) causes of markedly increased LDL cholesterol include cholestatic liver disease due to the presence of LpX. If a genetic form of hypercholesterolemia is suspected, family studies including biochemical testing for lipids (total cholesterol,triglycerides, LDL cholesterol and HDL cholesterol) are recommended. ??Please contact the laboratory at or the on-line test catalog at [employer] for information about how to order these tests or to speak with a genetic counselor. Further interpretation would require clinical information. Total Cholesterol/HDL Ratio 5 POWERCHART Blood 06/10/2016 10:4 0 AM PACKAGE CRIMPER us Ana Chery M.D. LAB BLOOD ADD-ON Final Result POWERCHART from Last 3 Months or Most Recently Relevant to Health Maintenance Insurance ARE Care Teams Spine Surgeon Relationship Specialty Start Date End Date Elsewhere, Pcp PCP - General Internal Medicine 12/04/18
[2024-03-14 00:21] LABS: Hemoglobin* 12.3 gm/dL (12.0-16.0)
[2024-03-14 00:42] LABS: Chloride* 96 mmol/L (96-114); Potassium* 3.6 mmol/L (3.6-5.1); Sodium* 138 mmol/L (135-149)
[2024-03-14 00:44] LABS: Creatinine* 0.8 mg/dL (0.5-1.5); Est. Creatinine Clearance* 141.57; Estimated Glomerular Filt Rate 92 ml/min
[2024-03-14 00:45] LABS: Anion Gap 4 mEq/L (7-15); Blood Urea Nitrogen* 11 mg/dL (5-24); Carbon Dioxide* 38 mmol/L (20-32); Glucose* 110 mg/dL (60-115)
[2024-03-14] MEDS: 0.9 % SODIUM CHLORIDE 500 ML 500 ML 1000 ML IV (01:46)
[2024-03-14] MEDS: KETOROLAC 30 MG/ML inj IVP (01:46)
== END 2024-03-14 02:36 | disposition home or self-care (01) ==
PROVIDERS: Emergency Provider Family Medicine; PCP Family Medicine
DX: R07.89 Other chest pain (principal); R51.9 Headache, unspecified; F41.9 Anxiety disorder, unspecified; F43.9 Reaction to severe stress, unspecified
CPT/HCPCS: 36415; 71045; 80048; 84484; 85018; 93005; 96374; 99284; 99285; J1885; J7030

== ENCOUNTER 2024-03-20 12:21 | Outpatient (CLI) | payer OTHER, SELFPAY ==
--- OUTSIDE RECORDS SUMMARY | 2024-03-24 19:38 | XMS_ITS | Referral Summary ---
Author Organization [facility] Address [address] [place] [address] Care Team Providers Care Medical Coder Name Role Phone Elsewhere, Pcp Primary Care Provider Unavailabl e Source Comments Patient records contain information from all sites at [facility]. For routine questions regarding patient records, call [phone] during business hours, M-F 8:00 AM - 5:00 PM Central Time. Record requests for emergency care only can be directed to [phone] at any time.[facility] Allergies Active Allergy Reactions Criticality Noted Date [...] Sex Assigned at Female 06/02/2018 2:11 PM REAL ESTATE INTERN Legal Sex Female 5:08 AM REAL ESTATE INTERN Gender Identity Female 06/02/2018 2:11 PM REAL ESTATE INTERN Sexual Orientation Choose not to disclose 2018 2:11 PM REAL ESTATE INTERN Last Filed Vital Signs Vital Sign [...] on file Medical Devices Implanted Type Area Collar Turner Device Identifier Shelf Expiration Date Model / Serial / Lot Ear Implant- 011 Implanted:11/24 (Quantity not on file) Ear Implant Ear Olympus Bernice Vega TORP Plasti-pore [id number] / / [id number] Description:[facility], [place], [place]. Ear implant-Vega TOPR Plasti-pore MRI Safe Procedures Procedure Name Priority Date/Time Associated Diagnosis Comments THYROID-STIMULATING HORMONE-SENSITIVE (S-TSH) Routine 10/27/2018 3:42 PM CDT Hypothyroidism Primary BASIC METABOLIC PANEL, S/P Routine 03/11/2018 1:58 PM CDT Dizziness Diplopia LIPID PANEL, S Routine 06/10/2016 10:40 AM REAL ESTATE INTERN from Last 3 Months or Most Recently Relevant to Health Maintenance Results * (ABNORMAL) S-TSH (Thyroid-Stimulating Hormone - Sensitive) (10/27/2018 3:42 PM CDT) TSH, Sensitive 10.7(H) 0.3 - 4.2 mIU/L 10/27/2018 5:20 PM CDT Comment: Biotin has been identified by the guest services representative as a potential interfering substance. ??Higher concentrations [...] BLOOD ADD-ON Final Result Performing Organization Address City/State/[facility] de Phone Number [facility] [address] * Basic Metabolic Panel (03/11/2018 1:58 PM CDT) Potassium, S 4.0 3.6 - 5.2 mmol/L 03/11/2018 2:29 PM CDT [facility] Sodium, S 141 135 - 145 mmol/L 03/11/2018 2:29 PM CDT [facility] Chloride, S 101 98 - 107 mmol/L 03/11/2018 2:29 PM CDT [facility] Bicarbonate, S 27 22 - 29 mmol/L 03/11/2018 2:29 PM CDT [facility] Anion Gap 13 7 - 15 03/11/2018 2:29 PM CDT [facility] BUN (Blood Urea Nitrogen), S 12 6 - 21 mg/dL 03/11/2018 2:29 PM CDT [facility] Creatinine 0.62 0.59 - 1.04 mg/dL 03/11/2018 2:29 PM CDT [facility] eGFR-Non Black/ >90 >=60 mL/min/BSA 03/11/2018 2:29 PM CDT [facility] Comment: ----ADDITIONAL INFORMATION---- Estimated GFR calculated using the 2009 CKD_EPI creatinine equation. eGFR-Black/Afri can Guamanian >90 >=60 mL/min/BSA 03/11/2018 2:29 PM CDT [facility] Comment: ----ADDITIONAL INFORMATION---- Estimated GFR calculated using the 2009 CKD_EPI creatinine equation. Calcium, Total, S 9.4 8.6 - 10.0 mg/dL 03/11/2018 2:29 PM CDT [facility] Glucose, S 95 70 - 140 mg/dL 03/11/2018 2:29 PM CDT [facility] Blood (Blood, Venous) 03/11/2018 1:58 PM CDT 03/11/2018 1:58 PM CDT Deanne Tsang P.A.-C. LAB BLOOD ADD-ON Final Result [facility] [address] [place] [address], [facility] [place] * (ABNORMAL) Lipid Panel (06/10/2016 10:40 AM REAL ESTATE INTERN) Cholesterol, Total 275(H) <=199 MGDL POWERCHART Comment: [...] for FH and FDB is available through [employer]: FH/ADH Genetic Reflex Panel (test ADHP). Acquired (non-genetic) causes of markedly increased LDL cholesterol include cholestatic liver disease due to the presence of LpX. If a genetic form of hypercholesterolemia is suspected, family studies including biochemical testing for lipids (total cholesterol,triglycerides, LDL cholesterol and HDL cholesterol) are recommended. ??Please contact the laboratory at or the on-line test catalog at [email or web address] for information about how to order these tests or to speak with a genetic counselor. Further interpretation would require clinical information. Total Cholesterol/HDL Ratio 5 POWERCHART Blood 06/10/2016 10:4 0 AM REAL ESTATE INTERN us Ana Chery M.D. LAB BLOOD ADD-ON Final Result POWERCHART from Last 3 Months or Most Recently Relevant to Health Maintenance Insurance [employer] Care Teams Medical Coder Relationship Specialty Start Date End Date Elsewhere, Pcp PCP - General Internal Medicine 12/04/18
--- OUTSIDE RECORDS SUMMARY | 2024-03-24 19:38 | XMS_ITS | Clinical Summary ---
Author Organization [facility] Address [address] [place] [address] Care Team Providers Care Area Attendant Name Role Phone Elsewhere, Pcp Primary Care Provider Unavailabl e Source Comments Patient records contain information from all sites at [facility]. For routine questions regarding patient records, call [phone] during business hours, M-F 8:00 AM - 5:00 PM Central Time. Record requests for emergency care only can be directed to [phone] at any time.[facility] Allergies Active Allergy Reactions Criticality Noted [...] Sex Assigned at Female 06/02/2018 2:11 PM EXPLOSIVE TECHNICIAN Legal Sex Female 5:08 AM EXPLOSIVE TECHNICIAN Gender Identity Female 06/02/2018 2:11 PM EXPLOSIVE TECHNICIAN Sexual Orientation Choose not to disclose 2018 2:11 PM EXPLOSIVE TECHNICIAN Last Filed Vital Signs Vital Sign [...] Asthma Control Test Questionnaire 01/14/2017 017, 03/26/2016 Cervical/Vaginal Cancer Screening 02/23/2018 02/23/2015 (Performed elsewhere), 04/16/2014 Asthma Action Plan 01/14/2019 [...] 023, 09/14/2013 Medical Devices Implanted Type Area Correctional Case Records Supervisor Device Identifier Shelf Expiration Date Model / Serial / Lot Ear Implant- 011 Implanted:11/24 (Quantity not on file) Ear Implant Ear Olympus Bernice Vega TORP Plasti-pore [id number] / / [id number] Description:[facility], [place], [place]. Ear implant-Vega TOPR Plasti-pore MRI Safe Procedures Procedure Name Priority Date/Time Associated Diagnosis Comments THYROID-STIMULATING HORMONE-SENSITIVE (S-TSH) Routine 10/27/2018 3:42 PM CDT Hypothyroidism Primary BASIC METABOLIC PANEL, S/P Routine 03/11/2018 1:58 PM CDT Dizziness Diplopia LIPID PANEL, S Routine 06/10/2016 10:40 AM EXPLOSIVE TECHNICIAN from Last 3 Months or Most Recently Relevant to Health Maintenance Results * (ABNORMAL) S-TSH (Thyroid-Stimulating Hormone - Sensitive) (10/27/2018 3:42 PM CDT) TSH, Sensitive 10.7(H) 0.3 - 4.2 mIU/L 10/27/2018 5:20 PM CDT Comment: Biotin has been identified by the reverse engineer as a potential interfering substance. ??Higher concentrations of biotin may be found in multivitamins, hair/nail supplements, and workout supplements. ??If the result does not match clinical observations, repeat testing after patient refrains from the use of supplements for at least 12 hours. Blood (Blood, Venous) 10/27/2018 3:42 PM CDT 10/27/2018 3:43 PM CDT Deanne Tsang P.A.-C. LAB BLOOD ADD-ON Final Result [facility] [address] [place] [address], [facility] * Basic Metabolic Panel (03/11/2018 1:58 PM CDT) Pathologist [facility] Potassium, S 4.0 3.6 - 5.2 mmol/L 03/11/2018 2:29 PM CDT [facility] Sodium, S 141 135 - 145 mmol/L 03/11/2018 2:29 PM CDT [facility] Chloride, S 101 98 - 107 mmol/L 03/11/2018 2:29 PM CDT [facility] Bicarbonate, S 27 22 - 29 mmol/L 03/11/2018 2:29 PM CDT [facility] Anion Gap 13 7 - 15 03/11/2018 2:29 PM CDT [facility] BUN (Blood Urea Nitrogen), S 12 6 - 21 mg/dL 03/11/2018 2:29 PM CDT [facility] Creatinine 0.62 0.59 - 1.04 mg/dL 03/11/2018 2:29 PM CDT [facility] eGFR-Non Black/ >90 >=60 mL/min/BSA 03/11/2018 2:29 PM CDT [facility] Comment: ----ADDITIONAL INFORMATION---- Estimated GFR calculated using the 2009 CKD_EPI creatinine equation. eGFR-Black/Afri can Ukrainian >90 >=60 mL/min/BSA 03/11/2018 2:29 PM CDT [facility] Comment: ----ADDITIONAL INFORMATION---- Estimated GFR calculated using the 2009 CKD_EPI creatinine equation. Calcium, Total, S 9.4 8.6 - 10.0 mg/dL 03/11/2018 2:29 PM CDT [facility] Glucose, S 95 70 - 140 mg/dL 03/11/2018 2:29 PM CDT [facility] Blood (Blood, Venous) 03/11/2018 1:58 PM CDT 03/11/2018 1:58 PM CDT us Deanne Tsang P.A.-C. LAB BLOOD ADD-ON Final Result [facility] [address] [place] [address], [facility] * (ABNORMAL) Lipid Panel (06/10/2016 10:40 AM EXPLOSIVE TECHNICIAN) Cholesterol, Total 275(H) <=199 MGDL POWERCHART [...] Calculated LDL 187(H) <=129 MGDL POWERCHART Comment: 2013 National Lipid Association recommendations for LDL-C in [...] for FH and FDB is available through [place] [employer]: FH/ADH Genetic Reflex Panel (test ADHP). Acquired (non-genetic) causes of markedly increased LDL cholesterol include cholestatic liver disease due to the presence of LpX. If a genetic form of hypercholesterolemia is suspected, family studies including biochemical testing for lipids (total cholesterol,triglycerides, LDL cholesterol and HDL cholesterol) are recommended. ??Please contact the laboratory at or the on-line test catalog at [email or web address] for information about how to order these tests or to speak with a genetic counselor. Further interpretation would require clinical information. Total Cholesterol/HDL Ratio 5 POWERCHART Blood 06/10/2016 10:4 0 AM EXPLOSIVE TECHNICIAN Aan Chery M.D. LAB BLOOD ADD-ON Final Result POWERCHART from Last 3 Months or Most Recently Relevant to Health Maintenance Insurance [facility] [place] Care Teams Area Attendant Relationship Specialty Start Date End Date Elsewhere, Pcp PCP - General Internal Medicine 12/04/18
--- OUTSIDE RECORDS SUMMARY | 2024-03-24 19:38 | XMS_ITS ---
Author Organization [facility] Address [address] [place] [address] Care Team Providers Care Paper Production Engineer Name Role Phone Unavailable Unavailable Unavailable Surgery Details Not on file Complications Check Surgery Details section. Procedure Estimated Blood Loss Check Surgery Details section. Procedure Findings Check Surgery Details section. Procedure Specimens Taken Check Surgery Details section.
--- OUTSIDE RECORDS SUMMARY | 2024-03-24 19:39 | XMS_ITS | Clinical Summary ---
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 TSH has been ~ 90 since 2002. Non compliant till 2006 but better (taking meds 5/7 days) 04/03: TSH >100, FreeT4 0.4, Reverse T3 9 (11-32 ng/dl) GERD (Gastroesophageal Reflux Disease) 9 Anxiety and depression Dizziness Overview (04/23/2021): Eval by [facility] neurology 2018. Thought to be [...] Encounters Date Type Department Care Team Description 03/24/2024 Refill [facility] [address] [place] [address] Geronimo Lamb MD Refill Request (Albuterol) 03/20/2024 Orders Only [facility] Scanner 1 scan: (1-Ord) POSEN, CHEST 1V PORTABLE, 03/20/2024 03/13/2024 Orders Only [facility] Scanner 1 scan: (1-Ord) POSEN, XR CHEST 1V PORTABLE, 03/13/2024 03/12/2024 Telephone [facility] [address] [place] [address] Geronimo Lamb MD Refill Request (Furosemide, omeprazole, potassium) 03/12/2024 Telephone [facility] [address] [place] [address] Geronimo Lamb MD Form 03/09/2024 Refill [facility] [address] [place] [address] Geronimo Lamb MD Refill Request (Furosemide, Omeprazole, Potassium Chloride, Cholecalciferol (Vitamin D3)) 03/05/2024 Telephone [facility] [address] [place] [address] Geronimo Lamb MD Lab 03/01/2024 Telephone [facility] [address] [place] [address] Luis Santos, DO Results (CT CHEST HIGH RESOLUTION WO) 02/25/2024 8:38 AM CDT - 02/25/2024 11:59 PM CDT Hospital Encounter [address] [address] Luis Santos, DO Wheezing 02/25/2024 8:30 AM CDT - 02/25/2024 8:37 AM CDT Hospital Encounter [address] [address] Luis Santos, DO Small airways disease; Wheezing 02/25/2024 Travel 02/24/2024 Orders Only [facility] Scanner 1 scan: (1-Ord) [facility], XR CHEST 2V, 02/24/2024 02/24/2024 Telephone [facility] [address] [place] [address] Geronimo Lamb MD Health Maintenance Update (Assisted Living Request) 02/06/2024 Telephone [facility] [address] [place] [address] Luis Santos, DO Results (Overnight Oximetry On Room Air, with CPAP, 02/05/24) 02/06/2024 Orders Only [facility] [address] [place] [address] Luis Santos, DO 1 scan: (1-Ord) Overnight Oximetry, On Room Air, with CPAP, 02/05/24 02/05/2024 2:30 PM CDT Office Visit [facility] [address] [place] [address] Paolo Limon MD Sleep Follow-up; Medication List Update (Awaiting Zepbound approval from insurance) 02/05/2024 Travel 02/05/2024 Telephone [facility] [address] [place] [address] Paolo Limon MD Questions (C pap machine ) 02/03/2024 Telephone [facility] [address] [place] [address] Geronimo Lamb MD Questions (Plan of care) 01/23/2024 Telephone [facility] [address] [place] [address] Geronimo Lamb MD Prior Authorization (tirzepatide, weight loss, (Zepbound) 2.5 mg/0.5 mL pen EXCLUDED) 01/22/2024 1:50 PM CDT Orders Only [facility] [address] [place] [address] Lab, Appv Lab 01/22/2024 12:45 PM CDT Office Visit [facility] [address] [place] [address] Luis Santos, Consult (Lung Damage since COVID-19) 01/22/2024 Telephone [facility] [address] [facility] [address] [phone] Luis Santos, Testing (Needs PFT, esophagram, CT chest) 01/22/2024 Travel 01/20/2024 2:55 PM CDT Office Visit [facility] [address] [place] [address] Geronimo Lamb MD Follow Up 01/20/2024 Travel 01/03/2024 Refill [facility] [address] [place] [address] Geronimo Lamb MD Refill Request (Myrbetriq) from Last 3 Months Immunizations Name Administration Dates Next Due COVID-19 VACCINE SPIKEVAX (M ODERNA 50MCG/0.5ML) 12YO+ PFS 03/19/2023 COVID-19 vaccine (Aloqa-Bio NTech 30mcg/0.3mL) 12YO+ BIVALENT PF, MDV 05/01/2022 COVID-19 vaccine (OportunistaBio NTech 30mcg/0.3mL) 12YO+ VAL-SUCROSE PF, MDV 08/29/2021 [...] 5 10/13/2023 Social Connections Answer Date Recorded Do you often feel lonely or isolated from those around you? 4 04/10/2023 Financial Resource Strain Answer Date R ecorded Difficulty of Paying Living Expenses 3 04/10/2023 Difficulty of Paying Living Expenses Not on file 04/10/2023 Food Insecurity Answer Date Recorded Do you worry your food will run out before you are able to buy more? 1 04/10/2023 Transportation Needs Answer Date Record ed Does lack of transportation keep you from medica l appointments? 1 04/10/2023 Does lack of transportation keep you from work, meetings or getting things that you need? 1 04/10/2023 Housing Stability Answer Date Recorded [...] st Contact Info) Description 04/08/2024 1:00 PM CUSTOMER SERVICES MANAGER [facility] [address] [facility] [place] [address] Shazia Li, LENI [address] [place] [address] 05/12/2024 2:00 PM CUSTOMER SERVICES MANAGER Office Visit [facility] [address] [place] [address] Paolo Limon MD [address] [place] [address] Health Maintenance Due Date Last Done Comments [...] Priority Date/Time Associated Diagnosis Comments SCAN-RADIOLOGY REPORT 03/20/2024 12:00 AM CDT SCAN-RADIOLOGY REPORT 03/13/2024 12:00 AM CDT COMPLETE [...] ANTI HIV 1/2 Routine 05/01/2022 4:36 PM CUSTOMER SERVICES MANAGER Encounter for screening for HIV ANTI HCV Routine 12/05/2021 9:30 AM CDT Need for hepatitis C screening test SCAN-MAMMOGRAPHY REPORT 02/24/2019 12:00 AM CDT from Last 3 Months or Most Recently Relevant to Health Maintenance Results * SCAN-RADIOLOGY REPORT (03/20/2024 12:00 AM CDT) Only the most recent of3 resultswithin the time period is included. Anatomical [...] <0.7 to define obstruction. Alayna Santos DO [facility] Luis Santos DO PFT ORD BEYOND [place], [place] * HEMOGLOBIN (02/25/2024 9:50 AM CDT) HEMOGLOBIN 12.1 12.0 - 16.0 g/dL 02/25/2024 9:53 AM CDT [facility] MCV 92 80 - 100 fL 02/25/2024 9:53 AM CDT [facility] Blood BLOOD SPECIMEN / Unknown Venipuncture / Unknown 02/25/2024 9:50 AM CDT 02/25/2024 9:50 AM CDT Luis Santos DO HEMATOLOGY [facility] [address] [place] [address], * XR ESOPHAGUS (02/25/2024 9:20 AM CDT) Anatomical Region Laterality Modality Esophagus Radio Fluoroscop y, Radiographic Imaging 02/25/2024 9:20 AM CDT Impressions 02/25/2024 10:05 AM CDT 1. ??Mild esophageal dysmotility. 2. ??Otherwise normal esophagram without stricture or mass lesion. Narrative 02/25/2024 10:05 AM CDT For Patients: As a result of the s Act, medical imaging exams and procedure reports [...] For Patients: As a result of the s Act, medical imagingexams and procedure reports are [...] esophagram without stricture or mass lesion. Luis Baig Danielle ALEJANDRO FLUOROSCOPY * CT CHEST HIGH RESOLUTION WO [...] EXAM: CT CHEST HIGH RESOLUTION WO LOCATION: [facility] DATE: 02/25/2024 INDICATION: Shortness of breath. [...] Cholelithiasis. MUSCULOSKELETAL: Bony demineralization. Procedure Note Rad Braga DO - 02/26/2024 For Patients: As a result of the Cures Act, medical imagingexams and procedure reports are released immediately into your electronicmedical record. You may view this report before your referring provider.If you have questions, please contact your health care provider. EXAM: CT CHEST HIGH RESOLUTION WO LOCATION: [facility] DATE: 02/25/2024 INDICATION: Shortness of breath. Small [...] 4. Cholelithiasis. Luis Santos DO CT * AMB CONSULT TO HOME OXYGEN AND DME (02/05/2024) Luis Santos DO AMB REFERRAL/CONSU LT ORD * RESPIRATORY DISEASE ALLERGY PROFILE (01/22/2024 2:02 PM CDT) Alternaria Alternata IGE <0.10 <=0.35 kU/L 01/29/2024 2:13 PM CDT [facility] Aspergillus Fumigatus (M3) IGE <0.10 <=0.35 kU/L 01/29/2024 2:13 PM CDT [facility] Birch (T3) IgE <0.10 <=0.35 kU/L 01/29/2024 2:13 PM CDT [facility] Cat Dander (E1) IgE <0.10 <=0.35 kU/L 01/29/2024 2:13 PM CDT [facility] Cladosporium herbarum (M2) IgE <0.10 <=0.35 kU/L 01/29/2024 2:13 PM CDT [facility] Cockroach (I6) IgE <0.10 <=0.35 kU/L 01/29/2024 2:13 PM CDT [facility] Common Ragweed (W1) IgE <0.10 <=0.35 kU/L 01/29/2024 2:13 PM CDT [facility] D. Farinae (D2) IgE <0.10 <=0.35 kU/L 01/29/2024 2:13 PM CDT [facility] D. Pteronyssinus (D1) IgE <0.10 <=0.35 kU/L 01/29/2024 2:13 PM CDT [facility] Dog Dander (E5) IgE <0.10 <=0.35 kU/L 01/29/2024 2:13 PM CDT [facility] Elm (T8) IgE <0.10 <=0.35 kU/L 01/29/2024 2:13 PM CDT [facility] IMMUNOGLOBULIN E (IGE) 59.2 22.0 - 107.0 kU/L 01/29/2024 2:13 PM CDT [facility] MAPLE (BOX ELDER) (T1) IGE <0.10 <=0.35 kU/L 01/29/2024 2:13 PM CDT [facility] ORCHARD GRASS (G3) IGE <0.10 <=0.35 kU/L 01/29/2024 2:13 PM CDT [facility] RED TOP (BENT) GRASS (G9) IGE <0.10 <=0.35 kU/L 01/29/2024 2:13 PM CDT [facility] TOM BALBUENA (W16) IGE <0.10 <=0.35 kU/L 01/29/2024 2:13 PM CDT [facility] MAGNUS CARMEN (T7) IGE <0.10 <=0.35 kU/L 01/29/2024 2:13 PM CDT [facility] Blood BLOOD SPECIMEN / Unknown Venipuncture / Unknown 01/22/2024 2:02 PM CDT 01/22/2024 2:03 PM CDT Luis Santos DO SEND OUTS Performing Organization Address [facility] Co de Phone Number [facility] [address] [address], [place] * IMMUNOGLOBULIN E,IGE (01/22/2024 2:02 PM CDT) IMMUNOGLOBULIN E (IGE) 55.3 22.0 - 107.0 kU/L 01/27/2024 1:59 PM CDT [facility] Blood BLOOD SPECIMEN / Unknown Venipuncture / Unknown 01/22/2024 2:02 PM CDT 01/22/2024 2:03 PM CDT Luis Santos DO CHEMISTRY Performing Organization Address [facility] Co de Phone Number [facility] [address] [address], [place] * QFT MITOGEN PERFORMABLE (01/20/2024 4:00 PM CDT) MITOGEN 4.85 IU/mL 01/22/2024 12:48 PM CDT [facility] Blood BLOOD SPECIMEN / Unknown Venipuncture / Unknown 01/20/2024 4:00 PM CDT 01/20/2024 4:00 PM CDT Geronimo Lamb MD CHEMISTRY Performing Organization Address [facility]/ZIP Co de Phone Number [facility] [address] [address], [place] * QFT TB2 PERFORMABLE (01/20/2024 4:00 PM CDT) TB2 0.01 IU/mL 01/22/2024 10:03 AM CDT [facility] Blood BLOOD SPECIMEN / Unknown Venipuncture / Unknown 01/20/2024 4:00 PM CDT 01/20/2024 4:00 PM CDT Geronimo Lamb MD CHEMISTRY Performing Organization Address [facility]/ZIP Co de Phone Number [facility] [address] [address], [place] * QFT TB1 PERFORMABLE (01/20/2024 4:00 PM CDT) TB1 0.01 IU/mL 01/22/2024 10:04 AM CDT [facility] Blood BLOOD SPECIMEN / Unknown Venipuncture / Unknown 01/20/2024 4:00 PM CDT 01/20/2024 4:00 PM CDT Geronimo Lamb MD CHEMISTRY Performing Organization Address [facility]/ZIP Co de Phone Number [facility] [address] [address], [place] * QUANTIFERON TB GOLD PLUS (01/20/2024 4:00 PM CDT) QFTP NIL 0.00 01/22/2024 2:20 PM CDT [facility] TB1 0.01 IU/mL 01/22/2024 2:20 PM CDT [facility] TB2 0.01 IU/mL 01/22/2024 2:[address] [facility] MITOGEN 4.85 IU/mL 01/22/2024 2:[address] [facility] QFTP TB AG1 - NIL 0.01 024 2:20 PM CDT [facility] TB1-NIL % OF NIL 01/22/20 2:20 PM CDT [facility] Comment:Unable to calculate QFTP TB AG2 - NIL 0.01 024 2:[address] [facility] TB2-NIL % OF NIL 01/22/20 2:20 PM CDT [facility] Comment:Unable to calculate QFTP MITOGEN - NIL 4.85 2023 2:20 PM CDT [facility] QFTP QUANTIFERON INTERPRETATION Negative Negative 01/22/2024 2:20 PM CDT [facility] Blood BLOOD SPECIMEN / Unknown Venipuncture / Unknown 01/20/2024 4:00 PM CDT 01/20/2024 4:[address] [facility] - 01/22/2024 2:20 PM CDT M. tuberculosis [...] old. - women Geronimo Lamb MD CHEMISTRY [facility] [address] [place] [address], * HEMOGLOBIN A1C SCREENING (01/20/2024 4:00 PM CDT) HEMOGLOBIN A1C SCREENING 6.1 <=6.4 % 01/21/2024 9:15 AM CDT [facility] Blood BLOOD SPECIMEN / Unknown Venipuncture / Unknown 01/20/2024 4:00 PM CDT 01/20/2024 4:00 PM CDT Narrative [facility] - 01/21/2024 9:15 AM CDT ? (<5.7%) ?Normal ? (5.7% to 6.4%) ? Indicates prediabetes ? (>=6.5%) ? Confirms diabetes Falsely low levels may be seen with: Recent Transfusion, Recent Significant Blood Loss, Hemolytic Diseases, or Falsely elevated levels may be seen with: Untreated Anemias, Splenectomy Geronimo Lamb MD CHEMISTRY Performing Organization Address [facility] Co de Phone Number [facility] [address] [address], [place] * TSH WITH REFLEX (01/20/2024 4:00 PM CDT) TSH 0.64 0.27 - 4.20 uIU/mL 01/21/2024 1:44 PM CDT [facility] Blood BLOOD SPECIMEN / Unknown Venipuncture / Unknown 01/20/2024 4:00 PM CDT 01/20/2024 4:[address] [facility] - 01/21/2024 1:44 PM CDT In Adults, TSH values between 5.00 and 10.00 uIU/ml do not necessarily indicate the presence of Hypothyroidism. Correlation with clinical findings such as presence of goiter and/or Thyroperoxidase (TPO) Antibody may be helpful. For more information please refer to SIVAN 2004; 291: 228-238. Geronimo Lamb MD CHEMISTRY Performing Organization Address [facility] Co de Phone Number [facility] [address] [address], * (ABNORMAL) LIPID PANEL W REFLEX MEASURED LDL (01/20/2024 4:00 PM CDT) CHOLESTEROL,TOTAL 261(H) 100 - 199 mg/dL 01/21/2024 1:44 PM CDT [facility] Comment: Cholesterol, Total Reference Ranges Desirable <200 mg/dL Borderline 200-239 mg/dL High >=240 mg/dL TRIGLYCERIDES 252(H) <150 mg/dL 01/21/2024 1:44 PM CDT [facility] HDL CHOLESTEROL 50 >40 mg/dL 1:44 PM CDT [facility] NON-HDL CHOLESTEROL 211(H) <145 mg/dl 01/21/2024 1:44 PM CDT [facility] CHOL/HDL RATIO 5.22(H) <4.50 01/21/2024 1:44 PM CDT [facility] LDL CHOLESTEROL 161(H) <=130 mg/dL 01/21/2024 1:44 PM CDT [facility] VLDL CHOLESTEROL 50(H) <=30 mg/dL 01/21/2024 1:44 PM CDT [facility] PROVIDER ORDERED STATUS RANDOM 01/21/2024 1:44 PM CDT [facility] Blood BLOOD SPECIMEN / Unknown Venipuncture / Unknown 01/20/2024 4:00 PM CDT 01/20/2024 4:00 PM CDT Geronimo Lamb MD CHEMISTRY [facility] [address] [place] [address], * BASIC METABOLIC PANEL (01/20/2024 4:00 PM CDT) SODIUM 139 136 - 145 mmol/L 01/21/2024 1:44 PM CDT [facility] POTASSIUM 4.0 3.5 - 5.1 mmol/L 01/21/2024 1:44 PM CDT [facility] CHLORIDE 100 98 - 107 mmol/L 01/21/2024 1:44 PM CDT [facility] CO2,TOTAL 28 22 - 29 mmol/L 01/21/2024 1:44 PM CDT [facility] ANION GAP 11 5 - 18 01/21/2024 1:44 PM CDT [facility] GLUCOSE 98 70 - 99 mg/dL 01/21/2024 1:44 PM CDT [facility] CALCIUM 9.2 8.6 - 10.0 mg/dL 01/21/2024 1:44 PM CDT [facility] BUN 12 6 - 20 mg/dL 01/21/2024 1:44 PM CDT [facility] CREATININE 0.79 0.50 - 0.90 mg/dL 01/21/2024 1:44 PM CDT [facility] BUN/CREAT RATIO 15 10 - 20 1:44 PM CDT [facility] eGFR >90 >90 mL/min/1.7 3m2 01/21/2024 1:44 PM CDT [facility] Comment:As of 2021, eG FR is calculated by the CKD-EPI creatinine equation without race adjustment. ??eGFR can be influenced by muscle mass, exercise, and diet. ??The reported eGFR is an estimation only and is only applicable if the renal function is stable. Blood BLOOD SPECIMEN / Unknown Venipuncture / Unknown 01/20/2024 4:00 PM CDT 01/20/2024 4:00 PM CDT Geronimo Lamb MD CHEMISTRY [facility] [address] [place] [address], * ANTI HIV 1/2 (05/01/2022 4:36 PM CUSTOMER SERVICES MANAGER) HIV-1/HIV-2 ANTIBODY Non-Reacti ve Non-Reacti ve 05/04/2022 9:59 PM CUSTOMER SERVICES MANAGER [facility] Comment:HIV-1 p24 and HIV-1/ HIV-2 Ab not detected. Blood BLOOD SPECIMEN / Unknown Butterfly / Unknown 05/01/2022 4:36 PM CUSTOMER SERVICES MANAGER 05/01/2022 4:41 PM CUSTOMER SERVICES MANAGER Geronimo Lamb MD SEND OUTS [facility] [address] [place] [address], * ANTI HCV (12/05/2021 9:30 AM CDT) HEPATITIS C ANTIBODY Non-React shikha Non-React shikha 12/05/2021 9:16 PM CDT [facility] Comment:Antibodies to HCV no t detected; does not exclude the possibility of exposure to HCV. Blood BLOOD SPECIMEN / Unknown Venipuncture / Unknown 12/05/2021 9:30 AM CDT 12/05/2021 9:33 AM CDT Geronimo Lamb MD SEND OUTS Performing Organization Address City/[facility] Co de Phone Number [facility] [address] [place] [address], [place] * SCAN-MAMMOGRAPHY REPORT (02/24/2019 12:00 AM CDT) Anatomical Region Laterality Modality Other Scanner OTHER from Last 3 Months or Most Recently Relevant to Health Maintenance Care Teams Nursing Consultant Relationship Specialty Start Date End Date Geronimo Lamb MD [address] [place] [address] PCP - General Family Practice 04/23/21 Paolo Limon MD Sleep Medicine 10/28/11 Talon Durham MD Neurology Neurology 11/26/11 Laura Gardner PsyD, [facility] Psychology 09/14/13 [place] [address] [facility] [place] [address] Pulmonology Pulmonary Medicine 01/22/24
== END 2024-03-20 12:22 | disposition home or self-care (01) ==
LOC: AMB 03-24 19:36
PROVIDERS: PCP Family Medicine; Visit Provider Internal Medicine
DX: R07.9 Chest pain, unspecified (principal); R42 Dizziness and giddiness; R11.2 Nausea with vomiting, unspecified
CPT/HCPCS: A0425; A0427

== ENCOUNTER 2024-03-20 12:44 | Emergency (ER) | payer OTHER, SELFPAY ==
[2024-03-20] VITALS (14 sets, daily range): BP systolic 123–138; BP diastolic 72–93; PULSE 84–92; RESP 16–20; TEMP 36.5; O2SAT 76–96; BMI 49.8
--- NOTE | 2024-03-20 13:16 | CRLHL7_ITS ---
For Patients: As a result of the Cures Act, medical imaging exams and procedure reports are released immediately into your electronic medical record. You may view this report before your referring provider. If you have questions, please contact your health care provider. INDICATION: Shortness of breath. Chest pain. COMPARISON: 03/14/2024. TECHNIQUE: Single-view of the chest. FINDINGS: No pleural effusions. No pneumothorax. Prominent interstitial markings of both lungs which may be secondary to pulmonary vascular congestion. Accentuation of cardiomediastinal silhouette. No osseous abnormalities. IMPRESSION: No acute findings. Dictated by Santo Ortega MD @ 03/20/2024 2:01:49 PM (Electronically Signed)
--- NOTE | 2024-03-20 13:18 | ED.GENADULT ---
HPI - General Adult General Date Seen: 03/20/24 Chief complaint: Weakness Stated complaint: Dizziness, chest pain Time Seen by Provider: 03/20/24 12:47 Source: patient, EMS, RN notes reviewed and old records reviewed Mode of arrival: EMS Limitations: no limitations History of Present Illness HPI narrative: Patient is a 48-year-old woman with a history of oxygen dependence, anxiety, atypical chest pain, sleep apnea, pseudoseizures, new resident of [place] who presents for evaluation of chest pain dizziness and shortness of breath. She was seen here few days ago for chest pain, says that it had gone away but then came back yesterday. It has been persistent since then it is substernal, she says it does hurt to take a deep breath and she feels more short of breath today as well. She also had a dizzy spell after lunch and still feels kind of dizzy. She says she developed nausea after the paramedics gave her aspirin. She has not had any vomiting. Denies abdominal pain, diarrhea black or bloody stools. No fevers. No significant cough. No lower extremity swelling or pain. No other complaints at this time she does not smoke, does not drink. Related Data Home Medications ?Medication ?Instructions ?Recorded ?Confirmed albuterol sulfate 90 mcg/actuation 1 - 2 puff inhalation Q4H PRN 11/30/21 03/20/24 aerosol inhaler mirabegron 50 mg tablet,extended 50 mg PO DAILY 11/30/21 03/20/24 release 24 hr (Myrbetriq) montelukast 10 mg tablet 10 mg PO HS 11/30/21 03/20/24 omeprazole 20 mg capsule,delayed 40 mg PO DAILY 02/26/22 03/20/24 release levetiracetam 750 mg tablet 750 mg PO BID 11/25/22 03/20/24 (Keppra) cholecalciferol (vitamin D3) 50 50 mcg PO DAILY 01/30/23 03/20/24 mcg (2,000 unit) capsule paroxetine HCl 40 mg tablet 40 mg PO DAILY 01/30/23 03/20/24 levothyroxine 100 mcg tablet 100 mcg PO DAILY 10/16/23 03/20/24 potassium chloride 10 mEq 20 meq PO DAILY 10/16/23 03/20/24 tablet,extended release acetaminophen 325 mg tablet 325 - 650 mg PO Q4-6H PRN 03/20/24 03/20/24 (Aminofen) aluminum-mag hydroxide-simethicone 5 - 10 ml PO 5XD PRN 03/20/24 03/20/24 200 mg-200 mg-20 mg/5 mL oral susp (Maalox Advanced) dextromethorphan HBr 10 mg/5 mL 5 - 10 mg PO Q4-6H PRN 03/20/24 03/20/24 oral syrup diphenhydramine HCl 25 mg capsule 25 - 50 mg PO Q8H PRN 03/20/24 03/20/24 (Banophen) ibuprofen 200 mg capsule 200 - 400 mg PO Q4-6H PRN 03/20/24 03/20/24 loperamide 2 mg tablet 1 mg PO Q6H PRN 03/20/24 03/20/24 (Anti-Diarrheal (loperamide)) magnesium hydroxide 400 mg/5 mL 15 - 30 ml PO DAILY PRN 03/20/24 03/20/24 oral suspension (Milk of PaymentOne) terbinafine HCl 1 % topical cream applic topical Q12H 03/20/24 tirzepatide (weight loss) 2.5 2.5 mg subcut QWEEK 03/20/24 03/20/24 mg/0.5 mL subcutaneous pen injector (Zepbound) Previous Rx's ?Medication ?Instructions ?Recorded albuterol sulfate 2.5 mg/3 mL 2.5 mg (3 mL) inhalation Q8H PRN 02/02/23 (0.083 %) solution for nebulization #1 mL budesonide-formoterol HFA 160 2 puff inhalation BID #1 g 02/02/23 mcg-4.5 mcg/actuation aerosol inhaler (Symbicort) furosemide 40 mg tablet 40 mg PO DAILY #30 tabs 02/02/23 tiotropium bromide 2.5 2 puff inhalation DAILY #1 g 02/02/23 mcg/actuation mist for inhalation (Spiriva Respimat) doxycycline hyclate 100 mg capsule 100 mg PO BID #14 caps 02/24/24 prednisone 20 mg tablet 20 mg PO BID #10 tabs 02/24/24 Allergies Allergy/AdvReac Type Severity Reaction Status Date / Time azithromycin Allergy Intermediate Bloody Verified 03/20/24 13:02 Stools latex Allergy Intermediate Rash Verified 03/20/24 13:02 oxycodone Allergy Intermediate Agitated Verified 03/20/24 13:02 scopolamine Allergy Intermediate Tremors Verified 03/20/24 13:02 acetaminophen (From Percocet) Allergy Mild Verified 03/20/24 13:02 basil Allergy Rash Verified 03/20/24 13:02 Review of Systems Status of ROS: Reports: 10 or more systems reviewed and unremarkable except as noted in History and below [facility] Medical History Hypothyroidism ?E03.9 - Hypothyroidism, unspecified (ICD-10) Acute and chronic respiratory failure with hypoxia ?J96.21 - Acute and chronic respiratory failure with hypoxia (ICD-10) 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 - Unspecified convulsions (ICD-10) RODRICK (obstructive sleep apnea) ?G47.33 - Obstructive sleep apnea (adult) (pediatric) (ICD-10) ADHD ?F90.9 - Attention-deficit hyperactivity disorder, unspecified type (ICD-10) Hyperthyroidism ?E05.90 - Thyrotoxicosis, unspecified without thyrotoxic crisis or storm (ICD-10) Hydrocephalus ?G91.9 - Hydrocephalus, unspecified (ICD-10) Hyperlipidemia ?E78.5 - Hyperlipidemia, unspecified (ICD-10) Anxiety and depression ?F41.9 - Anxiety disorder, unspecified (ICD-10) ?F32.A - Depression, unspecified (ICD-10) Asthma ?J45.909 - Unspecified asthma, uncomplicated (ICD-10) Surgical History History of ear surgery ?Z98.890 - Other specified postprocedural states (ICD-10) History of strabismus surgery ?Z98.890 - Other specified postprocedural states (ICD-10) Social History Narrative: on disability since 2009; lives alone with her cat. nonsmoker, no drugs, no significant tobacco history adopted, her two adopted aunts are her family contacts. What is your current living situation?: I presently have a place to live Problems where you live: no known problems Problems where you live details: None In the past 12 months, utilities in danger of being shut off: no In past 12 months, lack of transportation kept you from medical appts, meetings, work, or getting things needed for daily living: no In the past 12 mos, have been you worried that your food would run out before you had money to buy more?: never true In the past 12 mos, the food you bought just didn't last and you didn't have money to buy more?: never true Highest level of school completed/degree received: Associate degree: academic program Smoking Status: Former smoker What tobacco products do you use: cigarettes Smoking quit date/years: <= 15 years ago Do you use any of these nicotine containing products: None Second hand tobacco smoke exposure: Yes How often do you have a drink containing alcohol: never How often do you have six or more drinks on one occasion: Never AUDIT-C Alcohol total score: 0 Non-prescribed substance use: denies use Caffeine: Yes (Pop ocassionally) How often does anyone, including family, friends and others, physically hurt you: never How often does anyone, including family, friends and others, insult or talk down to you: never How often does anyone, including family, friends and others, threaten you with harm: never How often does anyone, including family, friends and others, scream or curse at you: never service: No Exam Narrative: Exam Narrative: Vital signs as noted above. In general, an alert, nontoxic woman. She is breathing easily at this time. She is overweight. Head: Normocephalic, atraumatic. Eyes: Pupils are equal reactive. Conjunctivae are normal. ENT: Mucous membranes are moist. Throat is normal. Neck: Supple without lymphadenopathy. Heart: Regular rate and rhythm. No murmur or rub. Lungs: Clear bilaterally. No increased work of breathing, crackles or wheezes. Abdomen: Soft and nontender. No organomegaly. Extremities: Well perfused. No edema. No calf tenderness. Pulses intact. Neurologic: Patient is alert and oriented to person and place. Speech is fluent. Face is symmetric. Moves all extremities equally. Affect: Normal. Skin: Warm and dry. Well perfused. Const: Vital Signs, click to edit/add: Vital Signs - 24 hr 03/20/24 12:54 03/20/24 13:20 Temperature 97.7 F Pulse Rate [Apical ] 85 Respiratory Rate 20 Blood Pressure [Ri ght Forearm] 123/72 Pulse Oximetry 76 L 93 Oxygen Delivery Me thod Room Air Nasal Cannula Oxygen Flow Rate 2 Documenting provider has reviewed patient's vital signs: yes Course Course ED Course: Paramedics placed an IV, gave her 2 mg of morphine, 4 mg of Zofran and an aspirin. EKG done here on arrival shows by my review a normal sinus rhythm, ventricular rate of 82. No acute ST segment changes, T-waves are flat throughout. Diagnostic considerations would include acute coronary syndrome, pulmonary embolism, arrhythmia, pneumonia, anemia, gastritis, cholecystitis, among others. Lab and chest x-ray pending Chest x-ray by my review is negative, final radiology read as follows:Patient: Paloma Garcia MR#: [id number] : 1975 Acct:[id number] Loc: ED Service Date: 03/20/[address]: Ordering Physician: Heather Hernandez M.D. Date of Service: 03/20/24 Procedure(s): XR chest 1V portable Accession Number(s): [id number] cc: Heather Hernandez M.D.; Geronimo Lamb M.D.~ For Patients: As a result of the Century Cures Act, medical imaging exams and procedure reports are released immediately into your electronic medical record. You may view this report before your referring provider. If you have questions, please contact your health care provider. INDICATION: Shortness of breath. Chest pain. COMPARISON: 03/14/2024. TECHNIQUE: Single-view of the chest. FINDINGS: No pleural effusions. No pneumothorax. Prominent interstitial markings of both lungs which may be secondary to pulmonary vascular congestion. Accentuation of cardiomediastinal silhouette. No osseous abnormalities. IMPRESSION: No acute findings. Dictated by Santo Ortega MD @ 03/20/2024 2:01:49 PM Patient was sleeping comfortably for the remainder of her time in the ER. Her evaluation here is unrevealing, white count is normal at 9.3, normal hemoglobin, D-dimer 0.39, troponin of 0.01. She has had consistent symptoms since yesterday so I think a single troponin is adequate to rule out acute coronary syndrome. Metabolic panel shows mild CO2 retention with a CO2 of 36, which is normal for her. BUN and creatinine are normal, blood sugars normal, LFTs show very minimal elevations in her transaminases, otherwise unremarkable. CRP 1.3, BNP 164. Lipase is normal at 51, COVID negative. Discussed with her that for today, evaluation is reassuring. No evidence of an acute emergent process. She has not seen her primary doctor according to her for quite some time, recommended that she make an appointment to be seen for further evaluation as indicated. Return any time for significant worsening or new symptoms. Vital Signs Vital signs: Initial Vital Signs Temperature 97.7 F 03/20/24 12:54 Temperature Source Temporal Artery Scan 03/20/24 12:54 Pulse Rate 85 03/20/24 12:54 Pulse Rhythm Regular 03/20/24 12:54 Respiratory Rate 20 03/20/24 12:54 Blood Pressure 123/72 03/20/24 12:54 Blood Pressure Mean 89 03/20/24 12:54 Blood Pressure Position Semi-Fowlers 03/20/24 12:54 Pulse Oximetry 76 L 03/20/24 12:54 Oxygen Delivery Method Room Air 03/20/24 12:54 Vital Signs Temperature 97.7 F 03/20/24 12:54 Pulse Rate 85 03/20/24 12:54 Respiratory Rate 20 03/20/24 12:54 Blood Pressure 123/72 03/20/24 12:54 Pulse Oximetry 76 L 03/20/24 12:54 Oxygen Delivery Method Room Air 03/20/24 12:54 Temperature 97.7 F 03/20/24 12:54 Pulse Rate 85 03/20/24 12:54 Respiratory Rate 20 03/20/24 12:54 Blood Pressure 123/72 03/20/24 12:54 Pulse Oximetry 93 03/20/24 13:20 Oxygen Delivery Method Nasal Cannula 03/20/24 13:20 Oxygen Flow Rate 2 03/20/24 13:20 Medical Decision Making Lab Data Labs: Lab Results 03/20/24 03/20/24 03/20/24 Range/Units 13:30 13:30 13:30 WBC 9.29 (4.50-11.00) K/uL RBC 4.10 (4.00-5.20) m/uL Hgb 12.1 (12.0-16.0) gm/dL Hct 38.2 (33.0-51.0) % MCV 93 (80-100) fL MCH 30 (26-34) pg MCHC 32 (32-36) gm/dL RDW Coeff of Tomy 13.1 (11.5-15.5) % Plt Count 211 (140-440) K/uL Neut % (Auto) 74.1 H (42.0-72.0) % Lymph % (Auto) 16.8 L (20-44) % [place] % (Auto) 5.5 (0.0-11.0) % Eos % (Auto) 2.5 (0.0-7.0) % Baso % (Auto) 0.3 (0.0-3.0) % Neut # (Auto) 6.90 (1.7-7.0) K/uL Lymph # (Auto) 1.60 (0.90-2.90) K/uL [place] # (Auto) 0.50 (0.00-0.90) K/UL Eos # (Auto) 0.23 (0.00-0.50) K/uL Baso # (Auto) 0.03 (0.00-0.30) K/uL Abs Immat Gran (auto) 0.07 (0.00-0.30) K/uL Imm/Tot Granulo (auto) 0.8 % D-Dimer Quant (PE/DVT) 0.39 (0.00-0.50) ug/ml Sodium Cancelled 135 Potassium Cancelled 3.4 L Chloride Cancelled Carbon Dioxide Anion Gap BUN Creatinine Estimated Creat Clear Estimated GFR Glucose Calcium Total Bilirubin (0.1-1.5) mg/dL Direct Bilirubin (0.0-0.5) mg/dL AST (12-35) U/L ALT (4-35) U/L Alkaline Phosphatase (40-150) U/L C-Reactive Protein NT-Pro-B Natriuret Pep Total Protein (6.0-8.3) g/dL Albumin (3.3-5.0) g/dL Lipase (23-300) U/L SARS-CoV-2 (PCR) (Negative) Influenza Type A (PCR) (Negative) Influenza Type B (PCR) (Negative) RSV (PCR) (Negative) POC Troponin I (0.01-0.04) ng/ml 03/20/24 03/20/24 03/20/24 Range/Units 13:30 13:30 13:30 WBC (4.50-11.00) K/uL RBC (4.00-5.20) m/uL Hgb (12.0-16.0) gm/dL Hct (33.0-51.0) % MCV (80-100) fL MCH (26-34) pg MCHC (32-36) gm/dL RDW Coeff of Tomy (11.5-15.5) % Plt Count (140-440) K/uL Neut % (Auto) (42.0-72.0) % Lymph % (Auto) (20-44) % [place] % (Auto) (0.0-11.0) % Eos % (Auto) (0.0-7.0) % Baso % (Auto) (0.0-3.0) % Neut # (Auto) (1.7-7.0) K/uL Lymph # (Auto) (0.90-2.90) K/uL [place] # (Auto) (0.00-0.90) K/UL Eos # (Auto) (0.00-0.50) K/uL Baso # (Auto) (0.00-0.30) K/uL Abs Immat Gran (auto) (0.00-0.30) K/uL Imm/Tot Granulo (auto) % D-Dimer Quant (PE/DVT) (0.00-0.50) ug/ml Sodium Potassium Chloride 94 L Carbon Dioxide Cancelled 36 H Anion Gap Cancelled 5 L BUN Cancelled Creatinine Estimated Creat Clear Estimated GFR Glucose Calcium Total Bilirubin (0.1-1.5) mg/dL Direct Bilirubin (0.0-0.5) mg/dL AST (12-35) U/L ALT (4-35) U/L Alkaline Phosphatase (40-150) U/L C-Reactive Protein NT-Pro-B Natriuret Pep Total Protein (6.0-8.3) g/dL Albumin (3.3-5.0) g/dL Lipase (23-300) U/L SARS-CoV-2 (PCR) (Negative) Influenza Type A (PCR) (Negative) Influenza Type B (PCR) (Negative) RSV (PCR) (Negative) POC Troponin I (0.01-0.04) ng/ml 03/20/24 03/20/24 03/20/24 Range/Units 13:30 13:30 13:30 WBC (4.50-11.00) K/uL RBC (4.00-5.20) m/uL Hgb (12.0-16.0) gm/dL Hct (33.0-51.0) % MCV (80-100) fL MCH (26-34) pg MCHC (32-36) gm/dL RDW Coeff of Tomy (11.5-15.5) % Plt Count (140-440) K/uL Neut % (Auto) (42.0-72.0) % Lymph % (Auto) (20-44) % [place] % (Auto) (0.0-11.0) % Eos % (Auto) (0.0-7.0) % Baso % (Auto) (0.0-3.0) % Neut # (Auto) (1.7-7.0) K/uL Lymph # (Auto) (0.90-2.90) K/uL [place] # (Auto) (0.00-0.90) K/UL Eos # (Auto) (0.00-0.50) K/uL Baso # (Auto) (0.00-0.30) K/uL Abs Immat Gran (auto) (0.00-0.30) K/uL Imm/Tot Granulo (auto) % D-Dimer Quant (PE/DVT) (0.00-0.50) ug/ml Sodium Potassium Chloride Carbon Dioxide Anion Gap BUN 13 Creatinine Cancelled 0.8 Estimated Creat Clear Cancelled 144.72 Estimated GFR Cancelled Glucose Calcium Total Bilirubin (0.1-1.5) mg/dL Direct Bilirubin (0.0-0.5) mg/dL AST (12-35) U/L ALT (4-35) U/L Alkaline Phosphatase (40-150) U/L C-Reactive Protein NT-Pro-B Natriuret Pep Total Protein (6.0-8.3) g/dL Albumin (3.3-5.0) g/dL Lipase (23-300) U/L SARS-CoV-2 (PCR) (Negative) Influenza Type A (PCR) (Negative) Influenza Type B (PCR) (Negative) RSV (PCR) (Negative) POC Troponin I (0.01-0.04) ng/ml 03/20/24 03/20/24 03/20/24 Range/Units 13:30 13:30 13:30 WBC (4.50-11.00) K/uL RBC (4.00-5.20) m/uL Hgb (12.0-16.0) gm/dL Hct (33.0-51.0) % MCV (80-100) fL MCH (26-34) pg MCHC (32-36) gm/dL RDW Coeff of Tomy (11.5-15.5) % Plt Count (140-440) K/uL Neut % (Auto) (42.0-72.0) % Lymph % (Auto) (20-44) % [place] % (Auto) (0.0-11.0) % Eos % (Auto) (0.0-7.0) % Baso % (Auto) (0.0-3.0) % Neut # (Auto) (1.7-7.0) K/uL Lymph # (Auto) (0.90-2.90) K/uL [place] # (Auto) (0.00-0.90) K/UL Eos # (Auto) (0.00-0.50) K/uL Baso # (Auto) (0.00-0.30) K/uL Abs Immat Gran (auto) (0.00-0.30) K/uL Imm/Tot Granulo (auto) % D-Dimer Quant (PE/DVT) (0.00-0.50) ug/ml Sodium Potassium Chloride Carbon Dioxide Anion Gap BUN Creatinine Estimated Creat Clear Estimated GFR 92 Glucose Cancelled 129 H Calcium Cancelled 8.8 Total Bilirubin 0.3 (0.1-1.5) mg/dL Direct Bilirubin 0.2 (0.0-0.5) mg/dL AST 36 H (12-35) U/L ALT 47 H (4-35) U/L Alkaline Phosphatase 88 (40-150) U/L C-Reactive Protein Cancelled NT-Pro-B Natriuret Pep Total Protein (6.0-8.3) g/dL Albumin (3.3-5.0) g/dL Lipase (23-300) U/L SARS-CoV-2 (PCR) (Negative) Influenza Type A (PCR) (Negative) Influenza Type B (PCR) (Negative) RSV (PCR) (Negative) POC Troponin I (0.01-0.04) ng/ml 03/20/24 03/20/24 03/20/24 Range/Units 13:30 13:30 13:40 WBC (4.50-11.00) K/uL RBC (4.00-5.20) m/uL Hgb (12.0-16.0) gm/dL Hct (33.0-51.0) % MCV (80-100) fL MCH (26-34) pg MCHC (32-36) gm/dL RDW Coeff of Tomy (11.5-15.5) % Plt Count (140-440) K/uL Neut % (Auto) (42.0-72.0) % Lymph % (Auto) (20-44) % [place] % (Auto) (0.0-11.0) % Eos % (Auto) (0.0-7.0) % Baso % (Auto) (0.0-3.0) % Neut # (Auto) (1.7-7.0) K/uL Lymph # (Auto) (0.90-2.90) K/uL [place] # (Auto) (0.00-0.90) K/UL Eos # (Auto) (0.00-0.50) K/uL Baso # (Auto) (0.00-0.30) K/uL Abs Immat Gran (auto) (0.00-0.30) K/uL Imm/Tot Granulo (auto) % D-Dimer Quant (PE/DVT) (0.00-0.50) ug/ml Sodium Potassium Chloride Carbon Dioxide Anion Gap BUN Creatinine Estimated Creat Clear Estimated GFR Glucose Calcium Total Bilirubin (0.1-1.5) mg/dL Direct Bilirubin (0.0-0.5) mg/dL AST (12-35) U/L ALT (4-35) U/L Alkaline Phosphatase (40-150) U/L C-Reactive Protein 1.3 H NT-Pro-B Natriuret Pep Cancelled 164 Total Protein 6.8 (6.0-8.3) g/dL Albumin 3.9 (3.3-5.0) g/dL Lipase 51 (23-300) U/L SARS-CoV-2 (PCR) Negative SARS-CoV-2 (Negative) Influenza Type A (PCR) Negative PCR FLU A (Negative) Influenza Type B (PCR) Negative PCR FLU B (Negative) RSV (PCR) Negative PCR RSV (Negative) POC Troponin I 0.01 (0.01-0.04) ng/ml Discharge Plan Discharge Clinical Impression: Atypical chest pain Instructions: Chest Pain (DC) Additional Instructions: I would recommend that you see your primary doctor about your chest pain as it has been persistent over the past week. Your testing here is all reassuring, there is no evidence of a heart attack, pneumonia, heart failure, blood clot, or other significant new problem. Return any time for worsening, severe pain, fevers, or other new symptoms. Prescriptions: No Action levetiracetam [Keppra] 750 mg tablet 750 mg PO BID potassium chloride 10 mEq tablet extended release 20 meq PO DAILY Rx Instructions: take 2 tablets daily levothyroxine 100 mcg tablet 100 mcg PO DAILY diphenhydramine HCl [Banophen] 25 mg capsule 25 - 50 mg PO Q8H PRN Rx Instructions: allergies ibuprofen 200 mg capsule 200 - 400 mg PO Q4-6H PRN acetaminophen [Aminofen] 325 mg tablet 325 - 650 mg PO Q4-6H PRN magnesium hydroxide [Milk of Magnesia] 400 mg/5 mL suspension 15 - 30 ml PO DAILY PRN terbinafine HCl 1 % cream topical Q12H alum-mag hydroxide-simeth [Maalox Advanced] 200-200-20 mg/5 mL suspension 5 - 10 ml PO 5XD PRN Rx Instructions: administer between meals and at bedtime loperamide [Anti-Diarrheal (loperamide)] 2 mg tablet 1 mg PO Q6H PRN dextromethorphan HBr 10 mg/5 mL syrup 5 - 10 mg PO Q4-6H PRN Zepbound 2.5 mg/0.5 mL pen injector 2.5 mg subcut QWEEK Rx Instructions: for 4 weeks montelukast 10 mg tablet 10 mg PO HS mirabegron [Myrbetriq] 50 mg tablet extended release 24 hr 50 mg PO DAILY Patient Comments: albuterol sulfate 90 mcg/actuation HFA aerosol inhaler 1 - 2 puff INHALATION Q4H PRN cholecalciferol (vitamin D3) 50 mcg (2,000 unit) capsule 50 mcg PO DAILY paroxetine HCl 40 mg tablet 40 mg PO DAILY Patient Comments: furosemide 40 mg Tablet 40 mg PO DAILY Qty: 30 0RF albuterol sulfate 2.5 mg /3 mL (0.083 %) solution for nebulization 2.5 mg inhalation Q8H PRNQty: 1 0RF budesonide-formoterol [Symbicort] 160-4.5 mcg/actuation HFA aerosol inhaler 2 puff INHALATION BID Qty: 1 0RF Spiriva Respimat 2.5 mcg/actuation mist 2 puff inhalation DAILY Qty: 1 0RF prednisone 20 mg tablet 20 mg PO BID Qty: 10 0RF doxycycline hyclate 100 mg capsule 100 mg PO BID Qty: 14 0RF omeprazole 20 mg capsule,delayed release(DR/EC) 40 mg PO DAILY Follow Up/Referrals: Geronimo Lamb MD [Primary Care Provider] - Stand Alone Forms: [employer] Info Instructions
--- OUTSIDE RECORDS SUMMARY | 2024-03-20 13:21 | XMS_ITS | Clinical Summary ---
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 Thought to be [...] Encounters Date Type Department Care Team Description 03/13/2024 Orders Only [facility] Scanner 1 scan: (1-Ord) [place], CHEST 1V PORTABLE, 03/13/2024 03/12/2024 Telephone [facility] [address] [place] [address] Geronimo Lamb MD Refill Request (Furosemide, omeprazole, potassium) 03/12/2024 Telephone [facility] [address] [place] [address] Geronimo Lamb MD Form 03/09/2024 Refill [facility] [address] [place] [address] Geronimo Lamb MD Refill Request (Furosemide, Omeprazole, Potassium Chloride, Cholecalciferol (Vitamin D3)) 03/05/2024 Telephone [facility] [address] [place] [address] Geronimo Lamb MD Lab 03/01/2024 Telephone [facility] [address] [address] Luis Santos, Results (CT CHEST HIGH RESOLUTION WO) 02/25/2024 8:38 AM CDT - 02/25/2024 11:59 PM CDT Hospital Encounter [facility] [address] [place] [address] Luis Santos, DO Wheezing 02/25/2024 8:30 AM CDT - 02/25/2024 8:37 AM CDT Hospital Encounter [facility] [address] [place] [address] Luis Santos, Small airways disease; Wheezing 02/25/2024 Travel 02/24/2024 Orders Only [facility] Scanner 1 scan: (1-Ord) [facility], XR CHEST 2V, 02/24/2024 02/24/2024 Telephone [facility] [address] [place] [address] Geronimo Lamb MD Health Maintenance Update (Assisted Living Request) 02/06/2024 Telephone [facility] [address] [facility] [address] [address] Luis Santos, Results (Overnight Oximetry On Room Air, with CPAP, 02/05/24) 02/06/2024 Orders Only [facility] [address] [facility] [place] [address] Luis Santos, DO 1 scan: (1-Ord) Overnight Oximetry, On Room Air, with CPAP, 02/05/24 02/05/2024 2:30 PM CDT Office Visit [facility] [address] [place] [address] Paolo Limon MD Sleep Follow-up; Medication List Update (Awaiting Zepbound approval from insurance) 02/05/2024 Travel 02/05/2024 Telephone [facility] [address] [place] [address] Paolo Limon MD Questions (C pap machine ) 02/03/2024 Telephone [facility] [address] [place] [address] Geronimo Lamb MD Questions (Plan of care) 01/23/2024 Telephone [facility] [address] [place] [address] Geronimo Lamb MD Prior Authorization (tirzepatide, weight loss, (Zepbound) 2.5 mg/0.5 mL pen EXCLUDED) 01/22/2024 1:50 PM CDT Orders Only [facility] [address] [place] [phone] Lab, Appv Lab 01/22/2024 12:45 PM CDT Office Visit [facility] [address] [place], [place] [id number] Luis Santos DO Consult (Lung Damage since COVID-19) 01/22/2024 Telephone [facility] [address] [facility] [address] [place] [phone] Luis Santos DO Testing (Needs PFT, esophagram, CT chest) 01/22/2024 Travel 01/20/2024 2:55 PM CDT Office Visit [facility] [address] [place] [address] Geronimo Lamb MD Follow Up 01/20/2024 Travel 01/03/2024 Refill [facility] [address] [place] [address] Geronimo Lamb MD Refill Request (Myrbetriq) from [...] file 04/10/2023 Food Insecurity Answer Date Recorded Do you worry your food will run out before you are able to buy more? 1 04/10/2023 Transportation Needs Answer Date Record ed Lack of Transportation (Medical) 1 04/10/2023 Housing Stability Answer Date Recorded What is your housing situation today? 1 04/10/2023 Sex and Gender Information Value [...] Care Team (Late st Contact Info) Description 04/08/2024 1:00 PM PRINTING PRESS MACHINIST Appointment Eunice [facility] [address] [place] [address] Shazia Li, LENI [address] [place] [address] 05/12/2024 2:00 PM PRINTING PRESS MACHINIST Office Visit [facility] [address] [place] [address] Paolo Limon MD [address] [place] [address] Health Maintenance Due Date Last Done Comments [...] Priority Date/Time Associated Diagnosis Comments SCAN-RADIOLOGY REPORT 03/13/2024 12:00 AM CDT COMPLETE PULMONARY FUNCTION TEST WITH BRONCHODILATOR Routine [...] ANTI HIV 1/2 Routine 05/01/2022 4:36 PM PRINTING PRESS MACHINIST Encounter for screening for HIV ANTI HCV Routine 12/05/2021 9:30 AM CDT Need for hepatitis C screening test SCAN-MAMMOGRAPHY REPORT 02/24/2019 12:00 AM CDT from Last 3 Months or Most Recently Relevant to Health Maintenance Results * SCAN-RADIOLOGY REPORT (03/13/2024 12:00 AM CDT) Only the most recent of2 resultswithin the time period is included. Anatomical Region Laterality Modality Other Scanner OTHER * COMPLETE PULMONARY FUNCTION TEST WITH BRONCHODILATOR [...] <0.7 to define obstruction. Alayna Santos DO [facility] Luis Santos DO PFT ORD [place]OND [place], [place] * HEMOGLOBIN (02/25/2024 9:50 AM CDT) HEMOGLOBIN 12.1 12.0 - 16.0 g/dL 02/25/2024 9:53 AM CDT [facility] MCV 92 80 - 100 fL 02/25/2024 9:53 AM CDT [facility] Blood BLOOD SPECIMEN / Unknown Venipuncture / Unknown 02/25/2024 9:50 AM CDT 02/25/2024 9:50 AM CDT Luis Santos DO HEMATOLOGY Performing Organization Address City/[facility] Co de Phone Number [facility] [address] [place] [address], * XR ESOPHAGUS (02/25/2024 9:20 AM CDT) Anatomical Region Laterality Modality Esophagus Radio Fluoroscop y, Radiographic Imaging 02/25/2024 9:20 AM CDT Impressions 02/25/2024 10:05 AM CDT 1. ??Mild esophageal dysmotility. 2. ??Otherwise normal esophagram without stricture or mass lesion. Narrative 02/25/2024 10:05 AM CDT For Patients: As a result of the Century Cures Act, medical imaging exams and [...] esophagram without stricture or mass lesion. Luis Satnos DO FLUOROSCOPY * CT CHEST HIGH RESOLUTION [...] EXAM: CT CHEST HIGH RESOLUTION WO LOCATION: [facility] DATE: 02/25/2024 INDICATION: Shortness of breath. Small [...] EXAM: CT CHEST HIGH RESOLUTION WO LOCATION: [facility] DATE: 02/25/2024 INDICATION: Shortness of breath. Small [...] enlargement; correlate for pulmonaryhypertension. 4. Cholelithiasis. [facility] * AMB CONSULT TO HOME OXYGEN AND DME (02/05/2024) [facility] AMB REFERRAL/CONSU LT ORD * RESPIRATORY DISEASE ALLERGY PROFILE (01/22/2024 2:02 PM CDT) Alternaria Alternata IGE <0.10 <=0.35 kU/L 01/29/2024 2:13 PM CDT [facility] Aspergillus Fumigatus (M3) IGE <0.10 <=0.35 kU/L 01/29/2024 2:13 PM CDT [facility] Birch (T3) IgE <0.10 <=0.35 kU/L 01/29/2024 2:13 PM CDT [facility] Cat Dander (E1) IgE <0.10 <=0.35 kU/L 01/29/2024 2:13 PM CDT [facility] Cladosporium herbarum (M2) IgE <0.10 <=0.35 kU/L 01/29/2024 2:13 PM CDT [facility] Cockroach (I6) IgE <0.10 <=0.35 kU/L 01/29/2024 2:13 PM CDT [facility] Common Ragweed (W1) IgE <0.10 <=0.35 kU/L 01/29/2024 2:13 PM CDT [facility] D. Farinae (D2) IgE <0.10 <=0.35 kU/L 01/29/2024 2:13 PM CDT [facility] D. Pteronyssinus (D1) IgE <0.10 <=0.35 kU/L 01/29/2024 2:13 PM CDT [facility] Dog Dander (E5) IgE <0.10 <=0.35 kU/L 01/29/2024 2:13 PM CDT [facility] Elm (T8) IgE <0.10 <=0.35 kU/L 01/29/2024 2:13 PM CDT [facility] IMMUNOGLOBULIN E (IGE) 59.2 22.0 - 107.0 kU/L 01/29/2024 2:13 PM CDT [facility] MAPLE (BOX ELDER) (T1) IGE <0.10 <=0.35 kU/L 01/29/2024 2:13 PM CDT [facility] ORCHARD GRASS (G3) IGE <0.10 <=0.35 kU/L 01/29/2024 2:13 PM CDT [facility] RED TOP (BENT) GRASS (G9) IGE <0.10 <=0.35 kU/L 01/29/2024 2:13 PM CDT [facility] ROUGH VALENTINE ELDER (W16) IGE <0.10 <=0.35 kU/L 01/29/2024 2:13 PM CDT [facility] WHITE [place]AK (T7) IGE <0.10 <=0.35 kU/L 01/29/2024 2:13 PM CDT [facility] Blood BLOOD SPECIMEN / Unknown Venipuncture / Unknown 01/22/2024 2:02 PM CDT 01/22/2024 2:03 PM CDT Luis Santos DO SEND OUTS Performing Organization Address [facility] Co de Phone Number [facility] [address] [place] [address], [place] * IMMUNOGLOBULIN E,IGE (01/22/2024 2:02 PM CDT) IMMUNOGLOBULIN E (IGE) 55.3 22.0 - 107.0 kU/L 01/27/2024 1:59 PM CDT [facility] Blood BLOOD SPECIMEN / Unknown Venipuncture / Unknown 01/22/2024 2:02 PM CDT 01/22/2024 2:03 PM CDT Luis Santos DO CHEMISTRY Performing Organization Address [facility] Phone Number [facility] [address] [place] [address], [place] * QFT MITOGEN PERFORMABLE (01/20/2024 4:00 PM CDT) MITOGEN 4.85 IU/mL 01/22/2024 12:48 PM CDT [facility] Blood BLOOD SPECIMEN / Unknown Venipuncture / Unknown 01/20/2024 4:00 PM CDT 01/20/2024 4:00 PM CDT Geronimo Lamb MD CHEMISTRY Performing Organization Address City/[facility] Co de Phone Number [facility] [address] [place] [address], [place] * QFT TB2 PERFORMABLE (01/20/2024 4:00 PM CDT) TB2 0.01 IU/mL 01/22/2024 10:03 AM CDT [facility] Blood BLOOD SPECIMEN / Unknown Venipuncture / Unknown 01/20/2024 4:00 PM CDT 01/20/2024 4:00 PM CDT Geronimo Lamb MD CHEMISTRY [facility] [address] [place] [address], [place] * QFT TB1 PERFORMABLE (01/20/2024 4:00 PM CDT) TB1 0.01 IU/mL 01/22/2024 10:04 AM CDT [facility] Blood BLOOD SPECIMEN / Unknown Venipuncture / Unknown 01/20/2024 4:00 PM CDT 01/20/2024 4:00 PM CDT Geronimo Lamb MD CHEMISTRY Performing Organization Address City/[facility]/ZIP Co de Phone Number [facility] [address] [place] [id number], [place] * QUANTIFERON TB GOLD PLUS (01/20/2024 4:00 PM CDT) Pathologist [facility] QFTP NIL 0.00 01/22/2024 2:[address] [facility] TB1 0.01 IU/mL 01/22/2024 2:[address] [facility] TB2 0.01 IU/mL 01/22/2024 2:[address] [facility] MITOGEN 4.85 IU/mL 01/22/2024 2:[address] [facility] QFTP TB AG1 - NIL 0.01 024 2:[address] [facility] TB1-NIL % OF NIL 01/22/20 2:[address] [facility] Comment:Unable to calculate QFTP TB AG2 - NIL 0.01 024 2:[address] [facility] TB2-NIL % OF NIL 01/22/20 2:[address] [facility] Comment:Unable to calculate QFTP MITOGEN - NIL 4.85 2023 2:[address] [facility] QFTP QUANTIFERON INTERPRETATION Negative Negative 01/22/2024 2:[address] [facility] Blood BLOOD SPECIMEN / Unknown Venipuncture / Unknown 01/20/2024 4:00 PM CDT 01/20/2024 4:00 PM CDT Narrative [facility] - 01/22/2024 2:20 PM [...] old. - women Geronimo Lamb MD CHEMISTRY [facility] [address] [place] [address], * HEMOGLOBIN A1C SCREENING (01/20/2024 4:00 PM CDT) HEMOGLOBIN A1C SCREENING 6.1 <=6.4 % 01/21/2024 9:15 AM CDT [facility] Blood BLOOD SPECIMEN / Unknown Venipuncture / Unknown 01/20/2024 4:00 PM CDT 01/20/2024 4:00 PM CDT Narrative [facility] - 01/21/2024 9:15 AM CDT ? (<5.7%) ?Normal ? (5.7% to 6.4%) ? Indicates prediabetes ? (>=6.5%) ? Confirms diabetes Falsely low levels may be seen with: Recent Transfusion, Recent Significant Blood Loss, Hemolytic Diseases, or Falsely elevated levels may be seen with: Untreated Anemias, Splenectomy Geronimo Lamb MD CHEMISTRY Performing Organization Address [facility] Co de Phone Number [facility] [address] [place] [address], [place] * TSH WITH REFLEX (01/20/2024 4:00 PM CDT) TSH 0.64 0.27 - 4.20 uIU/mL 01/21/2024 1:44 PM CDT [facility] Blood BLOOD SPECIMEN / Unknown Venipuncture / Unknown 01/20/2024 4:00 PM CDT 01/20/2024 4:00 PM CDT Narrative [facility] - 01/21/2024 1:44 PM CDT In Adults, TSH values between 5.00 and 10.00 uIU/ml do not necessarily indicate the presence of Hypothyroidism. Correlation with clinical findings such as presence of goiter and/or Thyroperoxidase (TPO) Antibody may be helpful. For more information please refer to SIVAN 2004; 291: 228-238. Geronimo Lamb MD CHEMISTRY Performing Organization Address [facility] Co de Phone Number [facility] [address] [place] [address], [place] * (ABNORMAL) LIPID PANEL W REFLEX MEASURED LDL (01/20/2024 4:00 PM CDT) CHOLESTEROL,TOTAL 261(H) 100 - 199 mg/dL 01/21/2024 1:44 PM CDT [facility] Comment: Cholesterol, Total Reference Ranges Desirable <200 mg/dL Borderline 200-239 mg/dL High >=240 mg/dL TRIGLYCERIDES 252(H) <150 mg/dL 01/21/2024 1:44 PM CDT [facility] HDL CHOLESTEROL 50 >40 mg/dL 1:44 PM CDT [facility] NON-HDL CHOLESTEROL 211(H) <145 mg/dl 01/21/2024 1:44 PM CDT [facility] CHOL/HDL RATIO 5.22(H) <4.50 01/21/2024 1:44 PM CDT [facility] LDL CHOLESTEROL 161(H) <=130 mg/dL 01/21/2024 1:44 PM CDT [facility] VLDL CHOLESTEROL 50(H) <=30 mg/dL 01/21/2024 1:44 PM CDT [facility] PROVIDER ORDERED STATUS RANDOM 01/21/2024 1:44 PM CDT [facility] Blood BLOOD SPECIMEN / Unknown Venipuncture / Unknown 01/20/2024 4:00 PM CDT 01/20/2024 4:00 PM CDT Geronimo Lamb MD CHEMISTRY [facility] [address] [place] [address], * BASIC METABOLIC PANEL (01/20/2024 4:00 PM CDT) SODIUM 139 136 - 145 mmol/L 01/21/2024 1:44 PM CDT [facility] POTASSIUM 4.0 3.5 - 5.1 mmol/L 01/21/2024 1:44 PM CDT [facility] CHLORIDE 100 98 - 107 mmol/L 01/21/2024 1:44 PM CDT [facility] CO2,TOTAL 28 22 - 29 mmol/L 01/21/2024 1:44 PM CDT [facility] ANION GAP 11 5 - 18 01/21/2024 1:44 PM CDT [facility] GLUCOSE 98 70 - 99 mg/dL 01/21/2024 1:44 PM CDT [facility] CALCIUM 9.2 8.6 - 10.0 mg/dL 01/21/2024 1:44 PM CDT [facility] BUN 12 6 - 20 mg/dL 01/21/2024 1:44 PM CDT [facility] CREATININE 0.79 0.50 - 0.90 mg/dL 01/21/2024 1:44 PM CDT [facility] BUN/CREAT RATIO 15 10 - 20 4 1:44 PM CDT [facility] eGFR >90 >90 mL/min/1.7 3m2 01/21/2024 1:44 PM CDT [facility] Comment:As of 2021, eG FR [...] 4:00 PM CDT Geronimo Lamb MD CHEMISTRY [facility] [address] [place] [address], [place] * ANTI HIV 1/2 (05/01/2022 4:36 PM PRINTING PRESS MACHINIST) Pathologist [facility] HIV-1/HIV-2 ANTIBODY Non-Reacti ve Non-Reacti ve 05/04/2022 9:59 PM PRINTING PRESS MACHINIST [facility] Comment:HIV-1 p24 and HIV-1/ HIV-2 Ab not detected. Blood BLOOD SPECIMEN / Unknown Butterfly / Unknown 05/01/2022 4:36 PM PRINTING PRESS MACHINIST 05/01/2022 4:41 PM PRINTING PRESS MACHINIST Geronimo Lamb MD SEND OUTS [facility] [address] [place] [address], [place] * ANTI HCV (12/05/2021 9:30 AM CDT) Pathologist [facility] HEPATITIS C ANTIBODY Non-React shikha Non-React shikha 12/05/2021 9:16 PM CDT [facility] Comment:Antibodies to HCV no t detected; does not exclude the possibility of exposure to HCV. Blood BLOOD SPECIMEN / Unknown Venipuncture / Unknown 12/05/2021 9:30 AM CDT 12/05/2021 9:33 AM CDT Geronimo Lamb MD SEND OUTS [facility] [address] [place] [address], [place] * SCAN-MAMMOGRAPHY REPORT (02/24/2019 12:00 AM CDT) Anatomical Region Laterality Modality Other Scanner OTHER from Last 3 Months or Most Recently Relevant to Health Maintenance Care Teams General Assembler Relationship Specialty Start Date End Date Geronimo Lamb MD [address] [place] [address] PCP - General Family Practice 04/23/21 Paolo Limon MD Sleep Medicine 10/28/11 Talon Durham MD Neurology Neurology 11/26/11 Laura Gardner PsyD, LP Psychology 09/14/13 [place] [address] [facility] [place] [place] [address] Pulmonology Pulmonary Medicine 01/22/24
--- OUTSIDE RECORDS SUMMARY | 2024-03-20 13:21 | XMS_ITS ---
Author Organization [facility] Address [address] [place] [address] Care Team Providers Care Gas Singer Name Role Phone Unavailable Unavailable Unavailable Surgery Details Not on file Complications Check Surgery Details section. Procedure Estimated Blood Loss Check Surgery Details section. Procedure Findings Check Surgery Details section. Procedure Specimens Taken Check Surgery Details section.
--- OUTSIDE RECORDS SUMMARY | 2024-03-20 13:21 | XMS_ITS | Clinical Summary ---
Author Organization [facility] Address [address] [place] [address] Care Team Providers Care Banquet Set Up Person Name Role Phone Elsewhere, Pcp Primary Care Provider Unavailabl e Source Comments Patient records contain information from all sites at [facility]. For routine questions regarding patient records, call [phone] during business hours, M-F 8:00 AM - 5:00 PM Central Time. Record requests for emergency care only can be directed to [phone] at any time.[facility] Allergies Active Allergy Reactions Criticality Noted [...] Sex Assigned at Female 06/02/2018 2:11 PM DAIRY SCIENTIST Legal Sex Female 5:08 AM DAIRY SCIENTIST Gender Identity Female 06/02/2018 2:11 PM DAIRY SCIENTIST Sexual Orientation Choose not to disclose 2018 2:11 PM DAIRY SCIENTIST Last Filed Vital Signs Vital Sign Reading [...] 023, 09/14/2013 Medical Devices Implanted Type Area Claims Account Manager Device Identifier Shelf Expiration Date Model / Serial / Lot Ear Implant- 011 Implanted:11/24 (Quantity not on file) Ear Implant Ear Olympus Bernice Vega TORP Plasti-pore [id number] / / [id number] Description:[facility], [place], [place]. Ear implant-Vega TOPR Plasti-pore MRI Safe Procedures Procedure Name Priority Date/Time Associated Diagnosis Comments THYROID-STIMULATING HORMONE-SENSITIVE (S-TSH) Routine 10/27/2018 3:42 PM CDT Hypothyroidism Primary BASIC METABOLIC PANEL, S/P Routine 03/11/2018 1:58 PM CDT Dizziness Diplopia LIPID PANEL, S Routine 06/10/2016 10:40 AM DAIRY SCIENTIST from Last 3 Months or Most Recently Relevant to Health Maintenance Results * (ABNORMAL) S-TSH (Thyroid-Stimulating Hormone - Sensitive) (10/27/2018 3:42 PM CDT) TSH, Sensitive 10.7(H) 0.3 - 4.2 mIU/L 10/27/2018 5:20 PM CDT Comment: Biotin has been identified by the cook box filler as a potential interfering substance. ??Higher concentrations of biotin may be found in multivitamins, hair/nail supplements, and workout supplements. ??If the result does not match clinical observations, repeat testing after patient refrains from the use of supplements for at least 12 hours. Blood (Blood, Venous) 10/27/2018 3:42 PM CDT 10/27/2018 3:43 PM CDT Deanne Tsang P.A.-C. LAB BLOOD ADD-ON Final Result [facility] [address] [place] [address], [facility] * Basic Metabolic Panel (03/11/2018 1:58 PM CDT) Pathologist [facility] Potassium, S 4.0 3.6 - 5.2 mmol/L 03/11/2018 2:[address] [facility] Sodium, S 141 135 - 145 mmol/L 03/11/2018 2:[address] [facility] Chloride, S 101 98 - 107 mmol/L 03/11/2018 2:[address] [facility] Bicarbonate, S 27 22 - 29 mmol/L 03/11/2018 2:[address] [facility] Anion Gap 13 7 - 15 03/11/2018 2:[address] [facility] BUN (Blood Urea Nitrogen), S 12 6 - 21 mg/dL 03/11/2018 2:[address] [facility] Creatinine 0.62 0.59 - 1.04 mg/dL 03/11/2018 2:[address] [facility] eGFR-Non Black/ >90 >=60 mL/min/BSA 03/11/2018 2:[address] [facility] Comment: ----ADDITIONAL INFORMATION---- Estimated GFR calculated using the 2009 CKD_EPI creatinine equation. eGFR-Black/Afri can Azerbaijani >90 >=60 mL/min/BSA 03/11/2018 2:[address] [facility] Comment: ----ADDITIONAL INFORMATION---- Estimated GFR calculated using the 2009 CKD_EPI creatinine equation. Calcium, Total, S 9.4 8.6 - 10.0 mg/dL 03/11/2018 2:[address] [facility] Glucose, S 95 70 - 140 mg/dL 03/11/2018 2:[address] [facility] Blood (Blood, Venous) 03/11/2018 1:58 PM CDT 03/11/2018 1:58 PM CDT us Deanne Tsang P.A.-C. LAB BLOOD ADD-ON Final Result Performing Organization Address City/State/[facility] Co de Phone Number [facility] [address] [place] [address], [facility] * (ABNORMAL) Lipid Panel (06/10/2016 10:40 AM DAIRY SCIENTIST) [facility] Signature Cholesterol, Total 275(H) <=199 MGDL POWERCHART [...] for FH and FDB is available through [facility]: FH/ADH Genetic Reflex Panel (test ADHP). Acquired (non-genetic) causes of markedly increased LDL cholesterol include cholestatic liver disease due to the presence of LpX. If a genetic form of hypercholesterolemia is suspected, family studies including biochemical testing for lipids (total cholesterol,triglycerides, LDL cholesterol and HDL cholesterol) are recommended. ??Please contact the laboratory at or the on-line test catalog at [email or web address] for information about how to order these tests or to speak with a genetic counselor. Further interpretation would require clinical information. Total Cholesterol/HDL Ratio 5 POWERCHART Blood 06/10/2016 10:4 0 AM DAIRY SCIENTIST us Ana Chery M.D. LAB BLOOD ADD-ON Final Result POWERCHART from Last 3 Months or Most Recently Relevant to Health Maintenance Insurance [facility] Care Teams Banquet Set Up Person Relationship Specialty Start Date End Date Elsewhere, Pcp PCP - General Internal Medicine 12/04/18
--- OUTSIDE RECORDS SUMMARY | 2024-03-20 13:21 | XMS_ITS | Referral Summary ---
Author Organization [facility] Address [address] [place] [address] Care Team Providers Care Monitor And Storage Bin Tender Name Role Phone Elsewhere, Pcp Primary Care Provider Unavailabl e Source Comments Patient records contain information from all sites at [facility]. For routine questions regarding patient records, call [phone] during business hours, M-F 8:00 AM - 5:00 PM Central Time. Record requests for emergency care only can be directed to [phone] at any time.[facility] Allergies Active Allergy Reactions Criticality Noted Date [...] Sex Assigned at Female 06/02/2018 2:11 PM STEM ROLLER OPERATOR Legal Sex Female 5:08 AM STEM ROLLER OPERATOR Gender Identity Female 06/02/2018 2:11 PM STEM ROLLER OPERATOR Sexual Orientation Choose not to disclose 2018 2:11 PM STEM ROLLER OPERATOR Last Filed Vital Signs Vital Sign [...] on file Medical Devices Implanted Type Area Manager Contracting Device Identifier Shelf Expiration Date Model / Serial / Lot Ear Implant- 011 Implanted:11/24 (Quantity not on file) Ear Implant Ear Olympus Bernice Veag TORP Plasti-pore [id number] / / [id number] Description:[facility], [place], [place]. Ear implant-Vega TOPR Plasti-pore MRI Safe Procedures Procedure Name Priority Date/Time Associated Diagnosis Comments THYROID-STIMULATING HORMONE-SENSITIVE (S-TSH) Routine 10/27/2018 3:42 PM CDT Hypothyroidism Primary BASIC METABOLIC PANEL, S/P Routine 03/11/2018 1:58 PM CDT Dizziness Diplopia LIPID PANEL, S Routine 06/10/2016 10:40 AM STEM ROLLER OPERATOR from Last 3 Months or Most Recently Relevant to Health Maintenance Results * (ABNORMAL) S-TSH (Thyroid-Stimulating Hormone - Sensitive) (10/27/2018 3:42 PM CDT) TSH, Sensitive 10.7(H) 0.3 - 4.2 mIU/L 10/27/2018 5:20 PM CDT Comment: Biotin has been identified by the earth science laboratory technician as a potential interfering substance. ??Higher concentrations [...] BLOOD ADD-ON Final Result Performing Organization Address City/State/[facility] de Phone Number [facility] [address] * Basic Metabolic Panel (03/11/2018 1:58 PM CDT) Potassium, S 4.0 3.6 - 5.2 mmol/L 03/11/2018 2:29 PM CDT [facility] Sodium, S 141 135 - 145 mmol/L 03/11/2018 2:29 PM CDT [facility] Chloride, S 101 98 - 107 mmol/L 03/11/2018 2:29 PM CDT [facility] Bicarbonate, S 27 22 - 29 mmol/L 03/11/2018 2:29 PM CDT [facility] Anion Gap 13 7 - 15 03/11/2018 2:29 PM CDT [facility] BUN (Blood Urea Nitrogen), S 12 6 - 21 mg/dL 03/11/2018 2:29 PM CDT [facility] Creatinine 0.62 0.59 - 1.04 mg/dL 03/11/2018 2:29 PM CDT [facility] eGFR-Non Black/ >90 >=60 mL/min/BSA 03/11/2018 2:29 PM CDT [facility] Comment: ----ADDITIONAL INFORMATION---- Estimated GFR calculated using the 2009 CKD_EPI creatinine equation. eGFR-Black/Afri can Equ[place] Guinean >90 >=60 mL/min/BSA 03/11/2018 2:29 PM CDT [facility] Comment: ----ADDITIONAL INFORMATION---- Estimated GFR calculated using the 2009 CKD_EPI creatinine equation. Calcium, Total, S 9.4 8.6 - 10.0 mg/dL 03/11/2018 2:29 PM CDT [facility] Glucose, S 95 70 - 140 mg/dL 03/11/2018 2:29 PM CDT [facility] Blood (Blood, Venous) 03/11/2018 1:58 PM CDT 03/11/2018 1:58 PM CDT Deanne Tsang P.A.-C. LAB BLOOD ADD-ON Final Result [facility] [address] [place] [address], [facility] * (ABNORMAL) Lipid Panel (06/10/2016 10:40 AM STEM ROLLER OPERATOR) Cholesterol, Total 275(H) <=199 MGDL POWERCHART Comment: [...] for FH and FDB is available through [place] [email or web address]: FH/ADH Genetic Reflex Panel (test ADHP). Acquired (non-genetic) causes of markedly increased LDL cholesterol include cholestatic liver disease due to the presence of LpX. If a genetic form of hypercholesterolemia is suspected, family studies including biochemical testing for lipids (total cholesterol,triglycerides, LDL cholesterol and HDL cholesterol) are recommended. ??Please contact the laboratory at or the on-line test catalog at [employer] for information about how to order these tests or to speak with a genetic counselor. Further interpretation would require clinical information. Total Cholesterol/HDL Ratio 5 POWERCHART Blood 06/10/2016 10:4 0 AM STEM ROLLER OPERATOR us Ana Chery M.D. LAB BLOOD ADD-ON Final Result POWERCHART from Last 3 Months or Most Recently Relevant to Health Maintenance Insurance [employer] Care Teams Monitor And Storage Bin Tender Relationship Specialty Start Date End Date Elsewhere, Pcp PCP - General Internal Medicine 12/04/18
[2024-03-20 13:38] LABS: Basophils Absolute Auto 0.03 K/uL (0.00-0.30); Basophils Percent Auto 0.3 % (0.0-3.0); Eosinophils Absolute Auto 0.23 K/uL (0.00-0.50); Eosinophils Percent Auto 2.5 % (0.0-7.0); Hematocrit 38.2 % (33.0-51.0); Hemoglobin* 12.1 gm/dL (12.0-16.0); Immature Granulocytes Abs Auto 0.07 K/uL (0.00-0.30); Immature Granulocytes Pct Auto 0.8 %; Lymphocytes Percent Auto 16.8 % (20-44); Mean Corpuscular HGB Conc 32 gm/dL (32-36); Mean Corpuscular Hemoglobin 30 pg (26-34); Mean Corpuscular Volume 93 fL (80-100); Monocytes Percent Auto 5.5 % (0.0-11.0); Neutrophils Percent Auto 74.1 % (42.0-72.0); Platelet Count* 211 K/uL (140-440); RDW Coefficient of Variation % 13.1 % (11.5-15.5); White Blood Count* 9.29 K/uL (4.50-11.00)
[2024-03-20 13:41] LABS: Slide Review Reflex No
[2024-03-20 13:48] LABS: Troponin, Point-of-Care* 0.01 ng/ml (0.01-0.04)
[2024-03-20 13:53] LABS: Albumin* 3.9 g/dL (3.3-5.0); Chloride* 94 mmol/L (96-114)
[2024-03-20 13:54] LABS: Potassium* 3.4 mmol/L (3.6-5.1); Sodium* 135 mmol/L (135-149)
[2024-03-20 13:56] LABS: Creatinine* 0.8 mg/dL (0.5-1.5); Est. Creatinine Clearance* 144.72; Estimated Glomerular Filt Rate 92 ml/min
[2024-03-20 13:57] LABS: Alanine Aminotransferase* 47 U/L (4-35); Alkaline Phosphatase* 88 U/L (40-150); Anion Gap 5 mEq/L (7-15); Aspartate Amino Transferase* 36 U/L (12-35); Bilirubin Direct* 0.2 mg/dL (0.0-0.5); Bilirubin Total* 0.3 mg/dL (0.1-1.5); Blood Urea Nitrogen* 13 mg/dL (5-24); Calcium* 8.8 mg/dL (8.4-10.6); Carbon Dioxide* 36 mmol/L (20-32); Glucose* 129 mg/dL (60-115); Lipase* 51 U/L (23-300); Total Protein* 6.8 g/dL (6.0-8.3)
[2024-03-20 13:58] LABS: D Dimer Quantitative* 0.39 ug/ml (0.00-0.50)
[2024-03-20 14:00] LABS: C Reactive Protein* 1.3 mg/dL (0.5-1.0)
[2024-03-20 14:07] LABS: NT Pro B Type NatriureticPept* 164 pg/mL
[2024-03-20 14:24] LABS: PCR FLU A Negative PCR FLU A (Negative); PCR FLU B Negative PCR FLU B (Negative); PCR RSV Negative PCR RSV (Negative); SARS PCR* Negative SARS-CoV-2 (Negative)
== END 2024-03-20 15:14 | disposition home or self-care (01) ==
PROVIDERS: Emergency Provider Emergency Medicine; PCP Family Medicine; Visit Provider Emergency Medicine
DX: R07.89 Other chest pain (principal)
CPT/HCPCS: 36415; 71045; 80048; 80076; 83690; 83880; 84484; 85025; 85379; 86140; 87631; 93005; 99284; 99285

== ENCOUNTER 2024-04-21 12:39 | Emergency (ER) | payer OTHER, SELFPAY ==
[2024-04-21 12:50] VITALS: BP 125/86; PULSE 90; RESP 20; TEMP 36.3; O2SAT 95; BMI 49.8
--- NOTE | 2024-04-21 13:15 | ED_ITS ---
HPI - General Adult General Chief complaint: Fall/Minor Trauma Stated complaint: Confusion, lightheaded Time Seen by Provider: 04/21/24 12:48 History of Present Illness HPI narrative: This 48-year-old female comes from an assisted living facility for evaluation after a gentle fall that occurred prior to arrival. She was standing near the nurse's station and was observed to lower herself to the floor. It was a very protected fall and she did not have any injury. Since then she has been able to get up and ambulate. She states that she feels a little bit off or confused. She arrives here with normal vital signs. She is on nasal cannula oxygen at home and states that she has been using this now when she gets up to ambulate also. She has been doing that for the past week. Today she states she was sitting eating lunch and began to feel some lightheaded symptoms. After getting up then she began to feel more lightheaded. She did not have loss of consciousness. Her blood pressure was checked after this event and it was a systolic value of 157. She arrives here with normal vital signs. Related Data Home Medications ?Medication ?Instructions ?Recorded ?Confirmed albuterol sulfate 90 mcg/actuation 1 - 2 puff inhalation Q4H PRN 11/30/21 03/20/24 aerosol inhaler mirabegron 50 mg tablet,extended 50 mg PO DAILY 11/30/21 03/20/24 release 24 hr (Myrbetriq) montelukast 10 mg tablet 10 mg PO HS 11/30/21 03/20/24 omeprazole 20 mg capsule,delayed 40 mg PO DAILY 02/26/22 03/20/24 release levetiracetam 750 mg tablet 750 mg PO BID 11/25/22 03/20/24 (Keppra) cholecalciferol (vitamin D3) 50 50 mcg PO DAILY 01/30/23 03/20/24 mcg (2,000 unit) capsule paroxetine HCl 40 mg tablet 40 mg PO DAILY 01/30/23 03/20/24 levothyroxine 100 mcg tablet 100 mcg PO DAILY 10/16/23 03/20/24 potassium chloride 10 mEq 20 meq PO DAILY 10/16/23 03/20/24 tablet,extended release acetaminophen 325 mg tablet 325 - 650 mg PO Q4-6H PRN 03/20/24 03/20/24 (Aminofen) aluminum-mag hydroxide-simethicone 5 - 10 ml PO 5XD PRN 03/20/24 03/20/24 200 mg-200 mg-20 mg/5 mL oral susp (Maalox Advanced) dextromethorphan HBr 10 mg/5 mL 5 - 10 mg PO Q4-6H PRN 03/20/24 03/20/24 oral syrup diphenhydramine HCl 25 mg capsule 25 - 50 mg PO Q8H PRN 03/20/24 03/20/24 (Banophen) ibuprofen 200 mg capsule 200 - 400 mg PO Q4-6H PRN 03/20/24 03/20/24 loperamide 2 mg tablet 1 mg PO Q6H PRN 03/20/24 03/20/24 (Anti-Diarrheal (loperamide)) magnesium hydroxide 400 mg/5 mL 15 - 30 ml PO DAILY PRN 03/20/24 03/20/24 oral suspension (Milk of Magnesia) terbinafine HCl 1 % topical cream applic topical Q12H 03/20/24 tirzepatide (weight loss) 2.5 2.5 mg subcut QWEEK 03/20/24 03/20/24 mg/0.5 mL subcutaneous pen injector (Zepbound) Previous Rx's ?Medication ?Instructions ?Recorded albuterol sulfate 2.5 mg/3 mL 2.5 mg (3 mL) inhalation Q8H PRN 02/02/23 (0.083 %) solution for nebulization #1 mL budesonide-formoterol HFA 160 2 puff inhalation BID #1 g 02/02/23 mcg-4.5 mcg/actuation aerosol inhaler (Symbicort) furosemide 40 mg tablet 40 mg PO DAILY #30 tabs 02/02/23 tiotropium bromide 2.5 2 puff inhalation DAILY #1 g 02/02/23 mcg/actuation mist for inhalation (Spiriva Respimat) doxycycline hyclate 100 mg capsule 100 mg PO BID #14 caps 02/24/24 prednisone 20 mg tablet 20 mg PO BID #10 tabs 02/24/24 Allergies Allergy/AdvReac Type Severity Reaction Status Date / Time azithromycin Allergy Intermediate Bloody Verified 04/21/24 12:50 Stools latex Allergy Intermediate Rash Verified 04/21/24 12:50 oxycodone Allergy Intermediate Agitated Verified 04/21/24 12:50 scopolamine Allergy Intermediate Tremors Verified 04/21/24 12:50 acetaminophen (From Percocet) Allergy Mild Verified 03/20/24 13:02 basil Allergy Rash Verified 04/21/24 12:50 Review of Systems Status of ROS: Reports: 10 or more systems reviewed and unremarkable except as noted in History and below Narrative: Constitutional: No fevers, no weight gain or loss. Eyes: No discharge. No vision changes. HENT: No congestion, no sore throat, no ear pain. Cardiovascular: No chest pain, no palpitations. Respiratory: No shortness of breath, no wheezes, no cough. Gastrointestinal: No abdominal pain, no vomiting, no diarrhea. Genitourinary: No dysuria, no hematuria. Musculoskeletal: Normal range of motion. Skin: No rashes, no pruritis. Neurological: No weakness, sensory change, speech change. Endo/Heme/Allergies: No bruising or bleeding. No polydipsia. Pysch: no suicidality, no anxiety, no insomnia. All other systems reviewed and are negative. 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 - Unspecified convulsions (ICD-10) RODRICK (obstructive sleep apnea) ?G47.33 - Obstructive sleep apnea (adult) (pediatric) (ICD-10) ADHD ?F90.9 - Attention-deficit hyperactivity disorder, unspecified type (ICD-10) Hyperthyroidism ?E05.90 - Thyrotoxicosis, unspecified without thyrotoxic crisis or storm (ICD-10) Hydrocephalus ?G91.9 - Hydrocephalus, unspecified (ICD-10) Hyperlipidemia ?E78.5 - Hyperlipidemia, unspecified (ICD-10) Anxiety and depression ?F41.9 - Anxiety disorder, unspecified (ICD-10) ?F32.A - Depression, unspecified (ICD-10) Asthma ?J45.909 - Unspecified asthma, uncomplicated (ICD-10) Surgical History History of ear surgery ?Z98.890 - Other specified postprocedural states (ICD-10) History of strabismus surgery ?Z98.890 - Other specified postprocedural states (ICD-10) Social History Narrative: on disability since 2009; lives alone with her cat. nonsmoker, no drugs, no significant tobacco history adopted, her two adopted aunts are her family contacts. What is your current living situation?: I presently have a place to live Problems where you live: no known problems Problems where you live details: None In the past 12 months, utilities in danger of being shut off: no In the past 12 mos, have been you worried that your food would run out before you had money to buy more?: never true In the past 12 mos, the food you bought just didn't last and you didn't have money to buy more?: never true Highest level of school completed/degree received: Associate degree: academic program Smoking Status: Former smoker What tobacco products do you use: cigarettes Smoking quit date/years: <= 15 years ago Do you use any of these nicotine containing products: None Second hand tobacco smoke exposure: Yes How often do you have a drink containing alcohol: never How often do you have six or more drinks on one occasion: Never AUDIT-C Alcohol total score: 0 Non-prescribed substance use: denies use Caffeine: Yes (Pop ocassionally) How often does anyone, including family, friends and others, physically hurt you : never How often does anyone, including family, friends and others, insult or talk down to you: never How often does anyone, including family, friends and others, threaten you with harm: never How often does anyone, including family, friends and others, scream or curse at you: never service: No Exam Narrative: Exam Narrative: Constitutional: Well-developed, well-nourished, no acute distress. HEENT: Normocephalic, atraumatic. Neck: Normal range of motion. Nontender. Supple. Heart: Regular. No murmurs. Normal rate. Intact distal pulses. Lungs: Clear to auscultation. No chest discomfort. No wheezes, rhonchi, or rales. Abdomen: Normal bowel sounds. Nontender. No rebound tenderness. Genitalia: Deferred. Back: No midline tenderness. Normal range of motion. Extremities: Normal range of motion. No injury. Skin: Intact. No rash. Warm. No erythema or pallor. Neurologic: No altered sensation. No weakness. Alert and oriented. No facial asymmetry. Tongue is midline. [id number] is normal. No pronator drift. Community Education Coordinator strength is equal bilaterally. Able to raise each leg from the bed. Psychiatric: No suicidality. No anxiety or depression. No insomnia. Nursing notes and vitals signs are reviewed. Const: Vital Signs, click to edit/add: Vital Signs - 24 hr 04/21/24 12:50 Temperature 97.4 F L Pulse Rate [Pulse Oximeter] 90 Respiratory Rate 20 Blood Pressure [Ri ght Forearm] 125/86 Pulse Oximetry 95 Oxygen Delivery Me thod Nasal Cannula Oxygen Flow Rate 2 Course Vital Signs Vital signs: Initial Vital Signs Temperature 97.4 F L 04/21/24 12:50 Temperature Source Temporal Artery Scan 04/21/24 12:50 Pulse Rate 90 04/21/24 12:50 Pulse Rhythm Regular 04/21/24 12:50 Respiratory Rate 20 04/21/24 12:50 Blood Pressure 125/86 04/21/24 12:50 Blood Pressure Mean 99 04/21/24 12:50 Blood Pressure Position Supine 04/21/24 12:50 Pulse Oximetry 95 04/21/24 12:50 Oxygen Delivery Method Nasal Cannula 04/21/24 12:50 Oxygen Flow Rate 2 04/21/24 12:50 Vital Signs Temperature 97.4 F L 04/21/24 12:50 Pulse Rate 90 04/21/24 12:50 Respiratory Rate 20 04/21/24 12:50 Blood Pressure 125/86 04/21/24 12:50 Pulse Oximetry 95 04/21/24 12:50 Oxygen Delivery Method Nasal Cannula 04/21/24 12:50 Oxygen Flow Rate 2 04/21/24 12:50 Temperature 97.4 F L 04/21/24 12:50 Pulse Rate 90 04/21/24 12:50 Respiratory Rate 20 04/21/24 12:50 Blood Pressure 125/86 04/21/24 12:50 Pulse Oximetry 95 04/21/24 12:50 Oxygen Delivery Method Nasal Cannula 04/21/24 12:50 Oxygen Flow Rate 2 04/21/24 12:50 Medical Decision Making [facility] Narrative Medical decision making narrative: This patient describes symptoms of feeling off with some lightheadedness. She no longer has these symptoms and arrives here with normal vital signs. Her exam is also normal. She is reassured with normal vital signs. I did explain causes for feeling lightheaded but gave reassurance is with her current exam and vital signs. I did discuss lab and imaging options and these were declined in a process of shared decision making. The patient is okay to return home. It does seem that she is benefitting from continuous nasal cannula oxygen as she is out fitted for. Discharge Plan Discharge Clinical Impression: Episodic lightheadedness Patient Disposition: Home, Self-Care Condition: Stable Additional Instructions: Continue current plans. Follow up with MD or return if symptoms are recurrent or worsening. Prescriptions: No Action levetiracetam [Keppra] 750 mg tablet 750 mg PO BID potassium chloride 10 mEq tablet extended release 20 meq PO DAILY Rx Instructions: take 2 tablets daily levothyroxine 100 mcg tablet 100 mcg PO DAILY diphenhydramine HCl [Banophen] 25 mg capsule 25 - 50 mg PO Q8H PRN Rx Instructions: allergies ibuprofen 200 mg capsule 200 - 400 mg PO Q4-6H PRN acetaminophen [Aminofen] 325 mg tablet 325 - 650 mg PO Q4-6H PRN magnesium hydroxide [Milk of Magnesia] 400 mg/5 mL suspension 15 - 30 ml PO DAILY PRN terbinafine HCl 1 % cream topical Q12H alum-mag hydroxide-simeth [Maalox Advanced] 200-200-20 mg/5 mL suspension 5 - 10 ml PO 5XD PRN Rx Instructions: administer between meals and at bedtime loperamide [Anti-Diarrheal (loperamide)] 2 mg tablet 1 mg PO Q6H PRN dextromethorphan HBr 10 mg/5 mL syrup 5 - 10 mg PO Q4-6H PRN Zepbound 2.5 mg/0.5 mL pen injector 2.5 mg subcut QWEEK Rx Instructions: for 4 weeks montelukast 10 mg tablet 10 mg PO HS mirabegron [Myrbetriq] 50 mg tablet extended release 24 hr 50 mg PO DAILY Patient Comments: albuterol sulfate 90 mcg/actuation HFA aerosol inhaler 1 - 2 puff INHALATION Q4H PRN cholecalciferol (vitamin D3) 50 mcg (2,000 unit) capsule 50 mcg PO DAILY paroxetine HCl 40 mg tablet 40 mg PO DAILY Patient Comments: furosemide 40 mg Tablet 40 mg PO DAILY Qty: 30 0RF albuterol sulfate 2.5 mg /3 mL (0.083 %) solution for nebulization 2.5 mg inhalation Q8H PRNQty: 1 0RF budesonide-formoterol [Symbicort] 160-4.5 mcg/actuation HFA aerosol inhaler 2 puff INHALATION BID Qty: 1 0RF Spiriva Respimat 2.5 mcg/actuation mist 2 puff inhalation DAILY Qty: 1 0RF prednisone 20 mg tablet 20 mg PO BID Qty: 10 0RF doxycycline hyclate 100 mg capsule 100 mg PO BID Qty: 14 0RF omeprazole 20 mg capsule,delayed release(DR/EC) 40 mg PO DAILY Follow Up/Referrals: Geronimo Lamb MD [Primary Care Provider] - Stand Alone Forms: [facility] Info Instructions
--- OUTSIDE RECORDS SUMMARY | 2024-04-21 13:36 | XMS_ITS | Referral Summary ---
Author Organization [facility] Address [address] [place] [address] Care Team Providers Care Community Support Associate Name Role Phone Elsewhere, Pcp Primary Care Provider Unavailabl e Source Comments Patient records contain information from all sites at [facility]. For routine questions regarding patient records, call [phone] during business hours, M-F 8:00 AM - 5:00 PM Central Time. Record requests for emergency care only can be directed to [phone] at any time.[facility] Allergies Active Allergy Reactions Criticality Noted [...] Sex Assigned at Female 06/02/2018 2:11 PM DONOR RELATIONS COORDINATOR Legal Sex Female 5:08 AM DONOR RELATIONS COORDINATOR Gender Identity Female 06/02/2018 2:11 PM DONOR RELATIONS COORDINATOR Sexual Orientation Choose not to disclose 2018 2:11 PM DONOR RELATIONS COORDINATOR Last Filed Vital Signs Vital Sign Reading Time Taken Comments Blood Pressure 124/79 11/17/2018 8:50 AM CDT Pulse 85 11/17/2018 8:50 AM CDT Temperature 36 C (96.8 F) 10/27/2018 3:23 PM CDT Respiratory Rate 20 11/17/2018 8:50 AM CDT Oxygen Saturation 93% 11/17/2018 8:50 AM CDT Inhaled Oxygen Concentration - - Weight 104 kg (229 lb 15 oz) 10/27/2018 3:23 PM CDT Height 144.8 cm (4' 9.01) 11/17/2018 8:50 AM CD T Body Mass Index 49.76 10/27/2018 3:23 PM CDT Plan of Treatment Not on file Medical Devices Implanted Type Area Furniture Maker Device Identifier Shelf Expiration Date Model / Serial / Lot Ear Implant- [id number] Implanted:11/24 (Quantity not on file) Ear Implant Ear Olympus Bernice Vega TORP Plasti-pore [id number] / / [id number] Description:[facility], [place], [place]. Ear implant-Vega TOPR Plasti-pore MRI Safe Procedures Procedure Name Priority Date/Time Associated Diagnosis Comments THYROID-STIMULATING HORMONE-SENSITIVE (S-TSH) Routine 10/27/2018 3:42 PM CDT Hypothyroidism Primary BASIC METABOLIC PANEL, S/P Routine 03/11/2018 1:58 PM CDT Dizziness Diplopia LIPID PANEL, S Routine 06/10/2016 10:40 AM DONOR RELATIONS COORDINATOR from Last 3 Months or Most Recently Relevant to Health Maintenance Results * (ABNORMAL) S-TSH (Thyroid-Stimulating Hormone - Sensitive) (10/27/2018 3:42 PM CDT) TSH, Sensitive 10.7(H) 0.3 - 4.2 mIU/L 10/27/2018 5:20 PM CDT Comment: Biotin has been identified by the collection card clerk as a potential interfering substance. Higher concentrations of biotin may be found in multivitamins, hair/nail supplements, and workout supplements. If the result does not match clinical observations, repeat testing after patient refrains from the use of supplements for at least 12 hours. Blood (Blood, Venous) 10/27/2018 3:42 PM CDT 10/27/2018 3:43 PM CDT us Deanne Tsang P.A.-C. LAB BLOOD ADD-ON Final Result [facility] [address] [place] [address], [facility] * Basic Metabolic Panel (03/11/2018 1:58 PM CDT) Potassium, S 4.0 3.6 - 5.2 mmol/L 03/11/2018 2:29 PM CDT [facility] Sodium, S 141 135 - 145 mmol/L 03/11/2018 2:29 PM CDT [facility] Chloride, S 101 98 - 107 mmol/L 03/11/2018 2:29 PM CDT [facility] Bicarbonate, S 27 22 - 29 mmol/L 03/11/2018 2:29 PM CDT [facility] Anion Gap 13 7 - 15 03/11/2018 2:29 PM CDT [facility] BUN (Blood Urea Nitrogen), S 12 6 - 21 mg/dL 03/11/2018 2:29 PM CDT [facility] Creatinine 0.62 0.59 - 1.04 mg/dL 03/11/2018 2:29 PM CDT [facility] eGFR-Non Black/ >90 >=60 mL/min/BSA 03/11/2018 2:29 PM CDT [facility] Comment: ----ADDITIONAL INFORMATION---- Estimated GFR calculated using the 2009 CKD_EPI creatinine equation. eGFR-Black/Afri can Singaporean >90 >=60 mL/min/BSA 03/11/2018 2:29 PM CDT [facility] Comment: ----ADDITIONAL INFORMATION---- Estimated GFR calculated using the 2009 CKD_EPI creatinine equation. Calcium, Total, S 9.4 8.6 - 10.0 mg/dL 03/11/2018 2:29 PM CDT [facility] Glucose, S 95 70 - 140 mg/dL 03/11/2018 2:29 PM CDT [facility] Blood (Blood, Venous) 03/11/2018 1:58 PM CDT 03/11/2018 1:58 PM CDT us Deanne Tsang P.A.-C. LAB BLOOD ADD-ON Final Result Performing Organization Address City/State/[facility] Co de Phone Number [facility] [address] * (ABNORMAL) Lipid Panel (06/10/2016 10:40 AM DONOR RELATIONS COORDINATOR) Pathologist [facility] Cholesterol, Total 275(H) <=199 MGDL POWERCHART Comment: [...] for FH and FDB is available through [facility] Blueprint Medicines: FH/ADH Genetic Reflex Panel (test ADHP). Acquired (non-genetic) causes of markedly increased LDL cholesterol include cholestatic liver disease due to the presence of LpX. If a genetic form of hypercholesterolemia is suspected, family studies including biochemical testing for lipids (total cholesterol,triglycerides, LDL cholesterol and HDL cholesterol) are recommended. Please contact the laboratory at or the on-line test catalog at [facility] for information about how to order these tests or to speak with a genetic counselor. Further interpretation would require clinical information. Total Cholesterol/HDL Ratio 5 POWERCHART Blood 06/10/2016 10:4 0 AM DONOR RELATIONS COORDINATOR us Ana Chery M.D. LAB BLOOD ADD-ON Final Result POWERCHART from Last 3 Months or Most Recently Relevant to Health Maintenance Insurance [facility] Care Teams Community Support Associate Relationship Specialty Start Date End Date Elsewhere, Pcp PCP - General Internal Medicine 12/04/18
--- OUTSIDE RECORDS SUMMARY | 2024-04-21 13:36 | XMS_ITS ---
Author Organization [facility] Address [address] [place] [address] Care Team Providers Care Air Valve Repairer Name Role Phone Unavailable Unavailable Unavailable Surgery Details Not on file Complications Check Surgery Details section. Procedure Estimated Blood Loss Check Surgery Details section. Procedure Findings Check Surgery Details section. Procedure Specimens Taken Check Surgery Details section.
--- OUTSIDE RECORDS SUMMARY | 2024-04-21 13:36 | XMS_ITS | Clinical Summary ---
Author Organization [facility] Address [address] [place] [address] Care Team Providers Care Chocolate Production Machine Operator Name Role Phone Elsewhere, Pcp Primary Care Provider Unavailabl e Source Comments Patient records contain information from all sites at [facility]. For routine questions regarding patient records, call [phone] during business hours, M-F 8:00 AM - 5:00 PM Central Time. Record requests for emergency care only can be directed to [phone] at any time.[facility] Allergies Active Allergy Reactions Criticality Noted Date [...] Sex Assigned at Female 06/02/2018 2:11 PM MICA INSPECTOR Legal Sex Female 5:08 AM MICA INSPECTOR Gender Identity Female 06/02/2018 2:11 PM MICA INSPECTOR Sexual Orientation Choose not to disclose 2018 2:11 PM MICA INSPECTOR Last Filed Vital Signs Vital Sign [...] for Blood Pressure Check / Re-check 1977 Hepatitis B Vaccines (1 of 3 - 19+ 3-dose series) 1996 Asthma Management/Exacerbation Questionnaire (AMQ/AEQ) 11/06/2016 Asthma Control Test Questionnaire 01/14/2017 12/03/2016, 03/26/2016 Cervical/Vaginal Cancer Screening 02/23/2018 02/23/2015 (Performed elsewhere), 04/16/2014 Asthma Action Plan 01/14/2019 01/14/2018, 0 12/03/2016, 03/18/2016 DTaP,Tdap,and Td Vaccines (2 - Td or Tdap) 10/29/2020 10/29/2010 Depression Monitoring (PHQ-9 for quality tracking) 05/26/2023 COVID-19 Vaccine ( season) 2024 03/19/2023, 05/01/2022, 08/29/2021, Additional history exists Influenza Vaccine (#1) 2024 , 05/01/2022, 03/09/2018, Additional history exists Creatinine Level (Kidney Function [...] Pneumococcal vaccine (0-64 years) Completed 01/14/2023, 09/14/2013 IPV Vaccines Aged Out No longer eligi ble based on patient's age to complete this topic Medical Devices Implanted Type Area Legal Paraprofessional Device Identifier Shelf Expiration Date Model / Serial / Lot Ear Implant- [id number] Implanted:11/24 (Quantity not on file) Ear Implant Ear [facility] Bernice Vega TORP Plasti-pore [id number] / / [id number] Description:[facility], [place], [place]. Ear implant-Vega TOPR Plasti-pore MRI Safe Procedures Procedure Name Priority Date/Time Associated Diagnosis Comments THYROID-STIMULATING HORMONE-SENSITIVE (S-TSH) Routine 10/27/2018 3:42 PM CDT Hypothyroidism Primary BASIC METABOLIC PANEL, S/P Routine 03/11/2018 1:58 PM CDT Dizziness Diplopia LIPID PANEL, S Routine 06/10/2016 10:40 AM MICA INSPECTOR from Last 3 Months or Most Recently Relevant to Health Maintenance Results * (ABNORMAL) S-TSH (Thyroid-Stimulating Hormone - Sensitive) (10/27/2018 3:42 PM CDT) TSH, Sensitive 10.7(H) 0.3 - 4.2 mIU/L 10/27/2018 5:20 PM CDT Comment: Biotin has been identified by the procedure tech as a potential interfering substance. Higher concentrations of biotin may be found in multivitamins, hair/nail supplements, and workout supplements. If the result does not match clinical observations, repeat testing after patient refrains from the use of supplements for at least 12 hours. Blood (Blood, Venous) 10/27/2018 3:42 PM CDT 10/27/2018 3:43 PM CDT us Deanne Tsang P.A.-C. LAB BLOOD ADD-ON Final Result [facility] [id number] [place] [id number], [facility] * Basic Metabolic Panel (03/11/2018 1:58 PM CDT) Potassium, S 4.0 3.6 - 5.2 mmol/L 03/11/2018 2:29 PM CDT [facility] Sodium, S 141 135 - 145 mmol/L 03/11/2018 2:29 PM CDT [facility] Chloride, S 101 98 - 107 mmol/L 03/11/2018 2:29 PM CDT [facility] Bicarbonate, S 27 22 - 29 mmol/L 03/11/2018 2:29 PM CDT [facility] Anion Gap 13 7 - 15 03/11/2018 2:29 PM CDT [facility] BUN (Blood Urea Nitrogen), S 12 6 - 21 mg/dL 03/11/2018 2:29 PM CDT [facility] Creatinine 0.62 0.59 - 1.04 mg/dL 03/11/2018 2:29 PM CDT [facility] eGFR-Non Black/ >90 >=60 mL/min/BSA 03/11/2018 2:29 PM CDT [facility] Comment: ----ADDITIONAL INFORMATION---- Estimated GFR calculated using the 2009 CKD_EPI creatinine equation. eGFR-Black/Afri can Mauritanian >90 >=60 mL/min/BSA 03/11/2018 2:29 PM CDT [facility] Comment: ----ADDITIONAL INFORMATION---- Estimated GFR calculated using the 2009 CKD_EPI creatinine equation. Calcium, Total, S 9.4 8.6 - 10.0 mg/dL 03/11/2018 2:29 PM CDT [facility] Glucose, S 95 70 - 140 mg/dL 03/11/2018 2:29 PM CDT [facility] Blood (Blood, Venous) 03/11/2018 1:58 PM CDT 03/11/2018 1:58 PM CDT Deanne Tsang P.A.-C. LAB BLOOD ADD-ON Final Result Performing Organization Address City/State/[facility] Co de Phone Number [facility] [id number] * (ABNORMAL) Lipid Panel (06/10/2016 10:40 AM MICA INSPECTOR) [facility] Cholesterol, Total 275(H) <=199 MGDL POWERCHART Comment: [...] for FH and FDB is available through [place] [facility]: FH/ADH Genetic Reflex Panel (test ADHP). Acquired (non-genetic) causes of markedly increased LDL cholesterol include cholestatic liver disease due to the presence of LpX. If a genetic form of hypercholesterolemia is suspected, family studies including biochemical testing for lipids (total cholesterol,triglycerides, LDL cholesterol and HDL cholesterol) are recommended. Please contact the laboratory at or the on-line test catalog at [employer] for information about how to order these tests or to speak with a genetic counselor. Further interpretation would require clinical information. Total Cholesterol/HDL Ratio 5 POWERCHART Blood 06/10/2016 10:4 0 AM MICA INSPECTOR us Ana Chery M.D. LAB BLOOD ADD-ON Final Result POWERCHART from Last 3 Months or Most Recently Relevant to Health Maintenance Insurance [facility] Care Teams Chocolate Production Machine Operator Relationship Specialty Start Date End Date Elsewhere, Pcp PCP - General Internal Medicine 12/04/18
--- OUTSIDE RECORDS SUMMARY | 2024-04-21 13:37 | XMS_ITS | Clinical Summary ---
Author Organization [facility] Address [place], [place] [address] Care Team Providers Care Merchandise Execution Leader Name Role Phone Paolo Limon MD Unavailable Talon Durham MD Unavailable [phone] Laura Gardner PsyD, Unavailable [phone] Geronimo Lamb MD Primary Care Provider Luis [...] Dispensed Refills Start Date End Date Status [facility], medication site planner with alarm 1 unit 0 4 Active diphenhydrAMINE (BENADRYL) 25 mg capsule Take 1 capsule by mouth each time if needed. 0 5 Active terbinafine 1% cream (LAMISIL) 1 % creamIndications: Intertrigo Apply topically to affected area(s) two times daily. 80 g 3 3 Active Diaper,Brief, Adult,DisposableI ndications:Urge urinary incontinence For home use. Size large. 60 Each 3 Active CPAPIndications:O SA (obstructive sleep apnea) CPAP machine for home use at pressure 13cmw, full face mask x1/3month with a full face cushion x1/mo 1 Each 4 Active montelukast (SINGULAIR) 10 mg tabletIndications [...] Portable oxygen concentrator. 1 Each 4 Active Symbicort 160-4.5 mcg/actuation (160-4.5 mcg each actuation) inhalerIndication s:Severe persistent asthma, unspecified whether complicated Inhale 2 Puffs by mouth two times daily. 10.2 g 4 Active mirabegron EXTENDED-release (Myrbetriq) 50 mg [...] a meal. 180 Tablet 2 4 Active albuterol 0.083% (2.5 mg/3 mL) neb solutionIndicatio ns:Moderate persistent asthma, uncomplicated *STORE UNUSED AMPULES IN FOIL POUCH* INHALE 1 AMPULE VIA NEBULIZER EVERY 4 HOURS NEEDED FOR SHORTNESS OF BREATH OR WHEEZING 90 mL 10 4 Active albuterol HFA (PRO-AIR; VENTOLIN; PROVENTIL) 90 mcg/actuation inhalerIndication s:Moderate persistent asthma, uncomplicated INHALE 1-2 PUFFS EVERY 4 HOURS NEEDED FOR SHORTNESS OF BREATH 1 Each 4 Active spiriva 18 mcg inhalation capsuleIndication s:COPD, severe (HC) Inhale 1 Capsule (18 mcg) by mouth once daily. Using a SPRIVA HANDIHALER fischer the capsule, then by mouth breathe in the powder. Inhale twice from the same capsule for full dose. 90 Each 2 4 Active levETIRAcetam (KEPPRA) 750 mg tabletIndications :Seizure (HC) Take 1 Tablet (750 mg) by mouth two times daily. 180 Tablet 1 4 Active nystatin powder (MYCOSTATIN) powderIndications :Rash Apply 1 Strip topically to affected area(s) three times daily. As needed. 60 g 3 4 Active albuterol HFA (PRO-AIR; VENTOLIN; PROVENTIL) 90 mcg/actuation inhalerIndication s:Moderate persistent asthma, uncomplicated INHALE 1 TO 2 PUFFS BY MOUTH EVERY 4 HOURS NEEDED FOR SHORTNESS OF BREATH 1ST CHOICE 17 Each 3 3 024 Discontinued levETIRAcetam (KEPPRA) 750 mg tabletIndications :Seizure (HC) TAKE 1 TABLET (750 MG) BY MOUTH TWO TIMES DAILY. 180 Tablet 1 4 024 Discontinued(Re order (E-cancel not sent)) tiotropium (SPIRIVA HANDIHALER) 18 mcg inhalation capsuleIndication s:COPD, severe (HC) Inhale 1 Capsule (18 mcg) by mouth once daily. Using a SPRIVA HANDIHALER fischer the capsule, then by mouth breathe in the powder. Inhale twice from the same capsule for full dose. 90 Capsule 3 4 Discontinued(*A vailability/For mulary change/Cost of medication) albuterol 0.083% (2.5 mg/3 mL) neb solutionIndicatio ns:Moderate persistent asthma, uncomplicated Inhale 3 mL (2.5 mg) via a nebulizer every 4 hours if needed for Shortness Of Breath or Wheezing. 150 mL 1 4 Discontinued Active Problems Problem Noted Date Diagnosed [...] and depression Dizziness Overview (04/23/2021): Eval by [facility] neurology 2018. Thought to be [...] Encounters Date Type Department Care Team Description 04/15/2024 Telephone [facility] [address] [place] [address] Geronimo Lamb MD DME Supply 04/08/2024 12:43 PM SUPERVISOR SEWER SYSTEM - 04/08/2024 11:59 PM [facility] [address] [place] [address] Luis Santos DO Wise, Hannah, MANAGER RETIREMENT Wheezing 04/08/2024 [facility] [address] [place] [address] Shazia Li, MANAGER RETIREMENT MANAGER RETIREMENT (Request of orders) 04/08/2024 Travel 04/07/2024 Refill [facility] [place] at [facility] [address] [place] [address] Dread Villavicencio MD Refill Request (Paroxetine, Myrbetriq, Levothyroxine, Levetiracetam) 04/05/2024 Telephone [facility] [address] [place] [address] Geronimo Lmab MD Medication Management (tiotropium (SPIRIVA HANDIHALER) 18 mcg inhalation capsule) 03/31/2024 Refill [facility] [address] [place] [address] Geronimo Lamb MD Refill Request (Tiotropium) 03/25/2024 Refill [facility] [address] [place] [address] Geronimo Lamb MD Refill Request (Albuterol Hfa) 03/24/2024 Refill [facility] [address] [place] [address] Geronimo Lamb MD Refill Request (Albuterol) 03/20/2024 Orders Only [facility] Scanner 1 scan: (1-Ord) LEGGETT, CHEST 1V PORTABLE, 03/20/2024 03/13/2024 Orders Only [facility] Scanner 1 scan: (1-Ord) LEGGETT, XR CHEST 1V PORTABLE, 03/13/2024 03/12/2024 Telephone [facility] [address] [place] [address] Geronimo Lamb MD Refill Request (Furosemide, omeprazole, potassium) 03/12/2024 Telephone [facility] [address] [place] [address] Geronimo Lamb MD Form 03/09/2024 Refill [facility] [address] [place] [address] Geronimo Lamb MD Refill Request (Furosemide, Omeprazole, Potassium Chloride, Cholecalciferol (Vitamin D3)) 03/05/2024 Telephone [facility] [address] [place] [address] Geronimo Lamb MD Lab 03/01/2024 Telephone [facility] [address] [place] [phone] Luis Santos, DO Results (CT CHEST HIGH RESOLUTION WO) 02/25/2024 8:38 AM CDT - 02/25/2024 11:59 PM CDT Hospital Encounter [address] [address] Luis Santos, DO Wheezing 02/25/2024 8:30 AM CDT - 02/25/2024 8:37 AM CDT Hospital Encounter [address] [address] Luis Santos, DO Small airways disease; Wheezing 02/25/2024 Travel 02/24/2024 Orders Only [facility] Scanner 1 scan: (1-Ord) [facility], XR CHEST 2V, 02/24/2024 02/24/2024 Telephone [facility] [address] [place] [address] Geronimo Lamb MD Health Maintenance Update (Assisted Living Request) 02/06/2024 Telephone [facility] [address] [place] [address] Luis Santos, DO Results (Overnight Oximetry On Room Air, with CPAP, 02/05/24) 02/06/2024 Orders Only [facility] [address] [address] Luis Santos DO 1 scan: (1-Ord) Overnight Oximetry, On Room Air, with CPAP, 02/05/24 02/05/2024 2:30 PM CDT Office Visit [facility] [address] [place] [address] Paolo Limon MD Sleep Follow-up; Medication List Update (Awaiting Zepbound approval from insurance) 02/05/2024 Travel 02/05/2024 Telephone [facility] [address] [place] [address] Paolo Limon MD Questions (C pap machine ) 02/03/2024 Telephone [facility] [address] [place] [address] Geronimo Lamb MD Questions (Plan of care) 01/23/2024 Telephone [facility] [address] [place] [address] Geronimo Lamb MD Prior Authorization (tirzepatide, weight loss, (Zepbound) 2.5 mg/0.5 mL pen EXCLUDED) 01/22/2024 1:50 PM CDT Orders Only [facility] [address] [place] [address] Lab, Appv Lab 01/22/2024 12:45 PM CDT Office Visit [facility] [address] [place] [address] Luis Santos, DO Consult (Lung Damage since COVID-19) 01/22/2024 Telephone [facility] [address] [facility] [address] [place] [phone] Luis Santos, DO Testing (Needs PFT, esophagram, CT chest) 01/22/2024 Travel 01/20/2024 2:55 PM CDT Office Visit [facility] [address] [place] [address] Geronimo Lamb MD Follow Up 01/20/2024 Travel from Last 3 Months Immunizations Name [...] 89 02/05/2024 1:48 PM CDT Temperature 36.7 C (98.1 F) 05/15/2023 1:42 PM SUPERVISOR SEWER SYSTEM Respiratory Rate 18 01/22/2024 12:56 PM CDT Oxygen Saturation 93% 02/05/2024 1:48 PM CDT Inhaled Oxygen Concentration - - Weight 104.3 kg (230 lb) 02/05/2024 1:48 PM CDT Height 142.2 cm (4' 8) 01/22/2024 12:56 PM CDT Body Mass Index 51.56 01/22/2024 12:56 PM CDT Plan of Treatment Upcoming Encounters Date Type Department Care Team (Late st Contact Info) Description 05/05/2024 3:20 PM SUPERVISOR SEWER SYSTEM Office Visit [facility] [address] [place] [address] Geronimo Lamb MD [address] [place] [address] 05/12/2024 2:00 PM SUPERVISOR SEWER SYSTEM Office Visit [facility] [address] [place] [address] Paolo Limon MD [address] [place] [address] 06/04/2024 9:15 AM SUPERVISOR SEWER SYSTEM Appointment [place] [address] [place] [address] 06/10/2024 2:15 PM SUPERVISOR SEWER SYSTEM Office Visit [address] [phone] Jasmyne Amaya MD [address] [address] 06/11/2024 9:00 AM SUPERVISOR SEWER SYSTEM Appointment [place] [address] [place] [address] 06/25/2024 9:00 AM SUPERVISOR SEWER SYSTEM Appointment [place] [address] [place] [address] Shazia Li, MANAGER RETIREMENT [address] [place] [address] 07/09/2024 9:00 AM SUPERVISOR SEWER SYSTEM Appointment [facility] Farrah Castañ[address] [place] [address] 07/23/2024 9:00 AM SUPERVISOR SEWER SYSTEM Appointment [facility] Farrah Castañeda First Floor [place] [address] 08/06/2024 9:15 AM CDT Appointment [facility] Farrah Castañeda First Floor [place] [address] Health Maintenance Due Date Last Done Comments [...] 01/15/20 23, 09/14/2013 COVID-19 vaccine series Completed 03/02/20 24, 03/19/2023, 05/01/2022, Additional history exists Procedures Procedure Name Priority Date/Time Associated Diagnosis Comments MANAGER RETIREMENT IMAGE CAPTURE Routine 04/08/2024 1:2 6 PM SUPERVISOR SEWER SYSTEM SCAN-RADIOLOGY REPORT 03/20/2024 12:00 AM CDT SCAN-RADIOLOGY [...] ANTI HIV 1/2 Routine 05/01/2022 4:36 PM SUPERVISOR SEWER SYSTEM Encounter for screening for HIV ANTI HCV [...] NOW - 02/25/2024 10:30 AM CDT Luis Santos DO 02/26/2024 5:11 PM RESULTS: INTERPRETATION: Restrictive lung disease is [...] to -2.5 Moderate -2.5 to -4 Severe <4.1 Bronchodilator response: > 10% of predicted value in FEV1 or FVC Airflow obstruction: FEV1/FVC less than 5th percentile For COPD: GOLD guidelines recommend an FEV1/FVC ratio of <0.7 to define obstruction. Alayna Santos DO [facility] Luis Santos DO PFT ORD [facility] NOW [place], [place] * HEMOGLOBIN (02/25/2024 9:50 AM CDT) HEMOGLOBIN 12.1 12.0 - 16.0 g/dL 02/25/2024 9:53 AM CDT [facility] MCV 92 80 - 100 fL 02/25/2024 9:53 AM CDT [facility] Blood BLOOD SPECIMEN / Unknown Venipuncture / Unknown 02/25/2024 9:50 AM CDT 02/25/2024 9:50 AM CDT Luis Santos DO HEMATOLOGY [facility] [address] [place] [address], * XR ESOPHAGUS (02/25/2024 9:20 AM CDT) Anatomical Region Laterality Modality Esophagus Radio Fluoroscop y, Radiographic Imaging 02/25/2024 9:20 AM CDT Impressions 02/25/2024 10:05 AM CDT 1. Mild esophageal dysmotility. 2. Otherwise normal [...] health care provider. EXAM: XR ESOPHAGUS LOCATION: [facility] DATE: 02/25/2024 INDICATION: Wheezing and dysphagia. [...] health care provider. EXAM: XR ESOPHAGUS LOCATION: [facility] DATE: 02/25/2024 INDICATION: Wheezing and dysphagia. [...] normal esophagram without stricture or mass lesion. Lusi Santos DO FLUOROSCOPY * CT CHEST HIGH RESOLUTION WO (02/25/2024 8:58 AM CDT) Anatomical Region Laterality Modality CHEST, THORAX, HEART Computed To mography 02/25/2024 8:58 AM CDT Impressions 02/26/2024 7:35 AM CDT 1. Findings of small airways disease with moderate patchy gas trapping on expiration. Mild airway thickening also noted. No bronchiectasis. 2. No fibrotic interstitial lung disease. 3. Mild pulmonary trunk enlargement; correlate for pulmonary hypertension. 4. Cholelithiasis. Narrative 02/26/2024 7:35 AM CDT For Patients: As a result of the Cures Act, medical imaging exams and procedure reports are released immediately into your electronic medical record. You may view this report before your referring provider. If you have questions, please contact your health care provider. EXAM: CT CHEST HIGH RESOLUTION WO LOCATION: [facility] DATE: 02/25/2024 INDICATION: Shortness of breath. [...] MUSCULOSKELETAL: Bony demineralization. Procedure Note Rad Braga, - 02/26/2024 For Patients: As a result of the Cures Act, medical imagingexams and procedure reports are released immediately into your electronicmedical record. You may view this report before your referring provider.If you have questions, please contact your health care provider. EXAM: CT CHEST HIGH RESOLUTION WO LOCATION: [facility] DATE: 02/25/2024 INDICATION: Shortness of breath. [...] <0.10 <=0.35 kU/L 01/29/2024 2:13 PM CDT [facility] Aspergillus Fumigatus (M3) IGE <0.10 <=0.35 kU/L 01/29/2024 2:13 PM CDT [facility] Birch (T3) IgE <0.10 <=0.35 kU/L 01/29/2024 2:13 PM CDT [facility] Cat Dander (E1) IgE <0.10 <=0.35 kU/L 01/29/2024 2:13 PM CDT [facility] Cladosporium herbarum (M2) IgE <0.10 <=0.35 kU/L 01/29/2024 2:13 PM CDT [facility] Cockroach (I6) IgE <0.10 <=0.35 kU/L 01/29/2024 2:13 PM CDT [facility] Common Ragweed (W1) IgE <0.10 <=0.35 kU/L 01/29/2024 2:13 PM CDT [facility] D. Farinae (D2) IgE <0.10 <=0.35 kU/L 01/29/2024 2:13 PM CDT [facility] D. Pteronyssinus (D1) IgE <0.10 <=0.35 kU/L 01/29/2024 2:13 PM CDT [facility] Dog Dander (E5) IgE <0.10 <=0.35 kU/L 01/29/2024 2:13 PM CDT [facility] Elm (T8) IgE <0.10 <=0.35 kU/L 01/29/2024 2:13 PM CDT [facility] IMMUNOGLOBULIN E (IGE) 59.2 22.0 - 107.0 kU/L 01/29/2024 2:13 PM CDT [facility] MAPLE (BOX ELDER) (T1) IGE <0.10 <=0.35 kU/L 01/29/2024 2:13 PM CDT [facility] ORCHARD GRASS (G3) IGE <0.10 <=0.35 kU/L 01/29/2024 2:13 PM CDT [facility] RED TOP (BENT) GRASS (G9) IGE <0.10 <=0.35 kU/L 01/29/2024 2:13 PM CDT [facility] ROUGH VALENTINE ELDER (W16) IGE <0.10 <=0.35 kU/L 01/29/2024 2:13 PM CDT [facility] WHITE OAK (T7) IGE <0.10 <=0.35 kU/L 01/29/2024 2:13 PM CDT [facility] Blood BLOOD SPECIMEN / Unknown Venipuncture / Unknown 01/22/2024 2:02 PM CDT 01/22/2024 2:03 PM CDT Luis Santos DO SEND OUTS [facility] [address] [address], [place] * IMMUNOGLOBULIN E,IGE (01/22/2024 2:02 PM CDT) IMMUNOGLOBULIN E (IGE) 55.3 22.0 - 107.0 kU/L 01/27/2024 1:59 PM CDT [facility] Blood BLOOD SPECIMEN / Unknown Venipuncture / Unknown 01/22/2024 2:02 PM CDT 01/22/2024 2:03 PM CDT Luis Santos DO CHEMISTRY Performing Organization Address City/[facility]/ZIP Co de Phone Number [facility] [address] [address], [place] * QFT MITOGEN PERFORMABLE (01/20/2024 4:00 PM CDT) MITOGEN 4.85 IU/mL 01/22/2024 12:48 PM CDT [facility] Blood BLOOD SPECIMEN / Unknown Venipuncture / Unknown 01/20/2024 4:00 PM CDT 01/20/2024 4:00 PM CDT Geronimo Lamb MD CHEMISTRY Performing Organization Address City/[facility]/ZIP Co de Phone Number [facility] [address] [address], [place] * QFT TB2 PERFORMABLE (01/20/2024 4:00 PM CDT) TB2 0.01 IU/mL 01/22/2024 10:03 AM CDT [facility] Blood BLOOD SPECIMEN / Unknown Venipuncture / Unknown 01/20/2024 4:00 PM CDT 01/20/2024 4:00 PM CDT Geronimo Lamb MD CHEMISTRY Performing Organization Address City/[facility]/ZIP Co de Phone Number [facility] [address] [address], [place] * QFT TB1 PERFORMABLE (01/20/2024 4:00 PM CDT) TB1 0.01 IU/mL 01/22/2024 10:04 AM CDT [facility] Blood BLOOD SPECIMEN / Unknown Venipuncture / Unknown 01/20/2024 4:00 PM CDT 01/20/2024 4:00 PM CDT Geronimo Lamb MD CHEMISTRY [facility] [address] [place] [address], [place] * QUANTIFERON TB GOLD PLUS (01/20/2024 4:00 PM CDT) Pathologist [facility] QFTP NIL 0.00 01/22/2024 2:20 PM CDT [facility] TB1 0.01 IU/mL 01/22/2024 2:20 PM CDT [facility] TB2 0.01 IU/mL 01/22/2024 2:20 PM CDT [facility] MITOGEN 4.85 IU/mL 01/22/2024 2:20 PM CDT [facility] QFTP TB AG1 - NIL 0.01 024 2:20 PM CDT [facility] TB1-NIL % OF NIL 01/22/20 24 2:20 PM CDT [facility] Comment:Unable to calculate QFTP TB AG2 - NIL 0.01 024 2:20 PM CDT [facility] TB2-NIL % OF NIL 01/22/20 24 2:20 PM CDT [facility] Comment:Unable to calculate QFTP MITOGEN - NIL 4.85 2023 2:20 PM CDT [facility] QFTP QUANTIFERON INTERPRETATION Negative Negative 01/22/2024 2:20 PM CDT [facility] Blood BLOOD SPECIMEN / Unknown Venipuncture / Unknown 01/20/2024 4:00 PM CDT 01/20/2024 4:00 PM CDT Narrative [facility] - 01/22/2024 2:20 PM CDT M. tuberculosis [...] - Individuals younger than 17 years old. Refer to CDC website for testing recommendations in children 6-17 years old. - women Geronimo Lamb MD CHEMISTRY Performing Organization Address [facility] Co de Phone Number [facility] [address] [place] [address], [place] * HEMOGLOBIN A1C SCREENING (01/20/2024 4:00 PM CDT) HEMOGLOBIN A1C SCREENING 6.1 <=6.4 % 01/21/2024 9:15 AM CDT [facility] Blood BLOOD SPECIMEN / Unknown Venipuncture / Unknown 01/20/2024 4:00 PM CDT 01/20/2024 4:00 PM CDT Narrative [facility] - 01/21/2024 9:15 AM CDT (<5.7%) Normal (5.7% to 6.4%) Indicates prediabetes (>=6.5%) Confirms diabetes Falsely low levels may be seen with: Recent Transfusion, Recent Significant Blood Loss, Hemolytic Diseases, or Falsely elevated levels may be seen with: Untreated Anemias, Splenectomy Geronimo Lamb MD CHEMISTRY Performing Organization Address [facility] Co de Phone Number [facility] [address] [place] [address], * TSH WITH REFLEX (01/20/2024 4:00 PM CDT) TSH 0.64 0.27 - 4.20 uIU/mL 01/21/2024 1:44 PM CDT [facility] Blood BLOOD SPECIMEN / Unknown Venipuncture / Unknown 01/20/2024 4:00 PM CDT 01/20/2024 4:00 PM CDT Narrative [facility] - 01/21/2024 1:44 PM CDT In Adults, TSH values between 5.00 and 10.00 uIU/ml do not necessarily indicate the presence of Hypothyroidism. Correlation with clinical findings such as presence of goiter and/or Thyroperoxidase (TPO) Antibody may be helpful. For more information please refer to SIVAN 2004; 291: 228-238. Geronimo Lamb MD CHEMISTRY [facility] [address] [place] [address], * (ABNORMAL) LIPID PANEL W REFLEX MEASURED LDL (01/20/2024 4:00 PM CDT) CHOLESTEROL,TOTAL 261(H) 100 - 199 mg/dL 01/21/2024 1:44 PM CDT [facility] Comment: Cholesterol, Total Reference Ranges Desirable <200 mg/dL Borderline 200-239 mg/dL High >=240 mg/dL TRIGLYCERIDES 252(H) <150 mg/dL 01/21/2024 1:44 PM CDT [facility] HDL CHOLESTEROL 50 >40 mg/dL 1:44 PM CDT [facility] NON-HDL CHOLESTEROL 211(H) <145 mg/dl 01/21/2024 1:44 PM CDT [facility] CHOL/HDL RATIO 5.22(H) <4.50 01/21/2024 1:44 PM CDT [facility] LDL CHOLESTEROL 161(H) <=130 mg/dL 01/21/2024 1:44 PM CDT [facility] VLDL CHOLESTEROL 50(H) <=30 mg/dL 01/21/2024 1:44 PM CDT [facility] PROVIDER ORDERED STATUS RANDOM 01/21/2024 1:44 PM CDT [facility] Blood BLOOD SPECIMEN / Unknown Venipuncture / Unknown 01/20/2024 4:00 PM CDT 01/20/2024 4:00 PM CDT Geronimo Lamb MD CHEMISTRY [facility] [address] [place] [address], * BASIC METABOLIC PANEL (01/20/2024 4:00 PM CDT) SODIUM 139 136 - 145 mmol/L 01/21/2024 1:44 PM CDT [facility] POTASSIUM 4.0 3.5 - 5.1 mmol/L 01/21/2024 1:44 PM CDT [facility] CHLORIDE 100 98 - 107 mmol/L 01/21/2024 1:44 PM CDT [facility] CO2,TOTAL 28 22 - 29 mmol/L 01/21/2024 1:44 PM CDT [facility] ANION GAP 11 5 - 18 01/21/2024 1:44 PM CDT [facility] GLUCOSE 98 70 - 99 mg/dL 01/21/2024 1:44 PM CDT [facility] CALCIUM 9.2 8.6 - 10.0 mg/dL 01/21/2024 1:44 PM CDT [facility] BUN 12 6 - 20 mg/dL 01/21/2024 1:44 PM CDT [facility] CREATININE 0.79 0.50 - 0.90 mg/dL 01/21/2024 1:44 PM CDT [facility] BUN/CREAT RATIO 15 10 - 20 1:44 PM CDT [facility] eGFR >90 >90 mL/min/1.7 3m2 01/21/2024 1:44 PM CDT [facility] Comment:As of 2021, eG FR is calculated by the CKD-EPI creatinine equation without race adjustment. eGFR can be influenced by muscle mass, exercise, and diet. The reported eGFR is an estimation only and is only applicable if the renal function is stable. Blood BLOOD SPECIMEN / Unknown Venipuncture / Unknown 01/20/2024 4:00 PM CDT 01/20/2024 4:00 PM CDT Geronimo Lamb MD CHEMISTRY Performing Organization Address City/[facility]/ZIP Co de Phone Number [facility] [address] [place] [address], [place] * ANTI HIV 1/2 (05/01/2022 4:36 PM SUPERVISOR SEWER SYSTEM) HIV-1/HIV-2 ANTIBODY Non-Reacti ve Non-Reacti ve 05/04/2022 9:59 PM SUPERVISOR SEWER SYSTEM [facility] Comment:HIV-1 p24 and HIV-1/ HIV-2 Ab not detected. Blood BLOOD SPECIMEN / Unknown Butterfly / Unknown 05/01/2022 4:36 PM SUPERVISOR SEWER SYSTEM 05/01/2022 4:41 PM SUPERVISOR SEWER SYSTEM Geronimo Lamb MD SEND OUTS Performing Organization Address [facility] Co de Phone Number [facility] [address] [place] [address], [place] * ANTI HCV (12/05/2021 9:30 AM [...] Performing Organization Address City/[facility]/ZIP Co de Phone Number [facility] [address] [place] [address], [place] * SCAN-MAMMOGRAPHY REPORT (02/24/2019 12:00 AM CDT) Anatomical Region Laterality Modality Other Scanner OTHER from Last 3 Months or Most Recently Relevant to Health Maintenance Care Teams Merchandise Execution Leader Relationship Specialty Start Date End Date Geronimo Lamb MD [address] [place] [address] PCP - General Family Practice 04/23/21 Paolo Limon MD Sleep Medicine 10/28/11 Talon Durham MD Neurology Neurology 11/26/11 Laura Gardner PsyD, [facility] Psychology 09/14/13 [place] [address] [place] [address] Pulmonology Pulmonary Medicine 01/22/24
== END 2024-04-21 13:45 | disposition home or self-care (01) ==
LOC: ED 13:34
PROVIDERS: Emergency Provider Emergency Medicine Emergency Medical Services; PCP Family Medicine
DX: R42 Dizziness and giddiness (principal)
CPT/HCPCS: 99282; 99283; 99284

== ENCOUNTER 2024-05-09 07:03 | Outpatient (CLI) | payer OTHER, SELFPAY | END 2024-05-09 07:04 | disposition home or self-care (01) | LOC: AMB 05-10 15:31 | PROVIDERS: PCP Family Medicine; Visit Provider Family Medicine | DX: R10.9 Unspecified abdominal pain (principal) | CPT/HCPCS: A0425; A0427 ==

== ENCOUNTER 2024-05-09 07:25 | Emergency (ER) | payer OTHER, SELFPAY ==
[2024-05-09] VITALS (46 sets, daily range): BP systolic 104–129; BP diastolic 60–75; PULSE 78–104; RESP 16–20; TEMP 36.9; O2SAT 89–97; BMI 49.8
--- NOTE | 2024-05-09 08:06 | ED_ITS ---
<Statement entered by Hazel Torre MD - 05/09/24 14:00> Documentation is not needed, document was open and mistake, no billing for me. HPI - General Adult General Date Seen: 05/09/24 Chief complaint: Abdominal Pain Stated complaint: Abdominal pain Time Seen by Provider: 05/09/24 08:00 History of Present Illness HPI narrative: 48-year-old female with a past medical history of COPD/asthma (on home oxygen, nasal cannula), sleep apnea, ADHD, hyperthyroidism, hyperlipidemia, anxiety/depression, hydrocephalus, pseudoseizures. She recently moved into [facility]. She has no previous abdominal surgeries and still has a gallbladder and appendix She started having a severe pain that feels like a twisting located in her right lateral mid abdomen and her right lateral abdominal wall. It began a few hours prior to arrival, sometime overnight tonight. No clear trigger for it. She notes that it did get a lot worse when the paramedics tried to get her sitting up out of bed. It became severe and was rated ?12. Is not associated with any nausea or vomiting. No fever. She has not had any blood in her urine or dysuria. She does note that she was incontinent of urine last night. However it sounds like that urinary incontinence is fairly common for her. She says that when she is dreaming her body feels like she needs to urinate but that she has sleep paralysis so she does not wake up to go to the bathroom. Bowel movements have been generally normal lately. No diarrhea or constipation but for the past month or so she says when she tries to poop she always feels like there is more stool yet to come so she strains on the toilet. She attributes that feeling to the stress of moving into [facility]. She has not had any other pains like this lately. No previous history of similar right-side pain. She was seen in the ER on 04/21, about 3 weeks ago after a ground level fall, associated with some confusion. Sounds like she was feeling mildly lightheaded. Ultimately no workup. She was discharged home. Related Data Home Medications ?Medication ?Instructions ?Recorded ?Confirmed albuterol sulfate 90 mcg/actuation 1 - 2 puff inhalation Q4H PRN 11/30/21 03/20/24 aerosol inhaler mirabegron 50 mg tablet,extended 50 mg PO DAILY 11/30/21 03/20/24 release 24 hr (Myrbetriq) montelukast 10 mg tablet 10 mg PO HS 11/30/21 03/20/24 omeprazole 20 mg capsule,delayed 40 mg PO DAILY 02/26/22 03/20/24 release levetiracetam 750 mg tablet 750 mg PO BID 11/25/22 03/20/24 (Keppra) cholecalciferol (vitamin D3) 50 50 mcg PO DAILY 01/30/23 03/20/24 mcg (2,000 unit) capsule paroxetine HCl 40 mg tablet 40 mg PO DAILY 01/30/23 03/20/24 levothyroxine 100 mcg tablet 100 mcg PO DAILY 10/16/23 03/20/24 potassium chloride 10 mEq 20 meq PO DAILY 10/16/23 03/20/24 tablet,extended release acetaminophen 325 mg tablet 325 - 650 mg PO Q4-6H PRN 03/20/24 03/20/24 (Aminofen) aluminum-mag hydroxide-simethicone 5 - 10 ml PO 5XD PRN 03/20/24 03/20/24 200 mg-200 mg-20 mg/5 mL oral susp (Maalox Advanced) dextromethorphan HBr 10 mg/5 mL 5 - 10 mg PO Q4-6H PRN 03/20/24 03/20/24 oral syrup diphenhydramine HCl 25 mg capsule 25 - 50 mg PO Q8H PRN 03/20/24 03/20/24 (Banophen) ibuprofen 200 mg capsule 200 - 400 mg PO Q4-6H PRN 03/20/24 03/20/24 loperamide 2 mg tablet 1 mg PO Q6H PRN 03/20/24 03/20/24 (Anti-Diarrheal (loperamide)) magnesium hydroxide 400 mg/5 mL 15 - 30 ml PO DAILY PRN 03/20/24 03/20/24 oral suspension (Milk of Magnesia) terbinafine HCl 1 % topical cream applic topical Q12H 03/20/24 tirzepatide (weight loss) 2.5 2.5 mg subcut QWEEK 03/20/24 03/20/24 mg/0.5 mL subcutaneous pen injector (Zepbound) Previous Rx's ?Medication ?Instructions ?Recorded albuterol sulfate 2.5 mg/3 mL 2.5 mg (3 mL) inhalation Q8H PRN 02/02/23 (0.083 %) solution for nebulization #1 mL budesonide-formoterol HFA 160 2 puff inhalation BID #1 g 02/02/23 mcg-4.5 mcg/actuation aerosol inhaler (Symbicort) furosemide 40 mg tablet 40 mg PO DAILY #30 tabs 02/02/23 tiotropium bromide 2.5 2 puff inhalation DAILY #1 g 02/02/23 mcg/actuation mist for inhalation (Spiriva Respimat) doxycycline hyclate 100 mg capsule 100 mg PO BID #14 caps 02/24/24 prednisone 20 mg tablet 20 mg PO BID #10 tabs 02/24/24 Allergies Allergy/AdvReac Type Severity Reaction Status Date / Time azithromycin Allergy Intermediate Bloody Verified 04/21/24 12:50 Stools latex Allergy Intermediate Rash Verified 04/21/24 12:50 oxycodone Allergy Intermediate Agitated Verified 04/21/24 12:50 scopolamine Allergy Intermediate Tremors Verified 04/21/24 12:50 acetaminophen (From Percocet) Allergy Mild Verified 03/20/24 13:02 basil Allergy Rash Verified 04/21/24 12:50 PFSH PFSH Medical History Hypothyroidism ?E03.9 - Hypothyroidism, unspecified (ICD-10) Acute and chronic respiratory failure with hypoxia ?J96.21 - Acute and chronic respiratory failure with hypoxia (ICD-10) 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 - Unspecified convulsions (ICD-10) RODRICK (obstructive sleep apnea) ?G47.33 - Obstructive sleep apnea (adult) (pediatric) (ICD-10) ADHD ?F90.9 - Attention-deficit hyperactivity disorder, unspecified type (ICD-10) Hyperthyroidism ?E05.90 - Thyrotoxicosis, unspecified without thyrotoxic crisis or storm (ICD-10) Hydrocephalus ?G91.9 - Hydrocephalus, unspecified (ICD-10) Hyperlipidemia ?E78.5 - Hyperlipidemia, unspecified (ICD-10) Anxiety and depression ?F41.9 - Anxiety disorder, unspecified (ICD-10) ?F32.A - Depression, unspecified (ICD-10) Asthma ?J45.909 - Unspecified asthma, uncomplicated (ICD-10) Surgical History History of ear surgery ?Z98.890 - Other specified postprocedural states (ICD-10) History of strabismus surgery ?Z98.890 - Other specified postprocedural states (ICD-10) Social History Narrative: on disability since 2009; lives alone with her cat. nonsmoker, no drugs, no significant tobacco history adopted, her two adopted aunts are her family contacts. What is your current living situation?: I presently have a place to live Problems where you live: no known problems Problems where you live details: None In the past 12 months, utilities in danger of being shut off: no In the past 12 mos, have been you worried that your food would run out before you had money to buy more?: never true In the past 12 mos, the food you bought just didn't last and you didn't have money to buy more?: never true Highest level of school completed/degree received: Associate degree: academic program Smoking Status: Former smoker What tobacco products do you use: cigarettes Smoking quit date/years: <= 15 years ago Do you use any of these nicotine containing products: None Second hand tobacco smoke exposure: Yes How often do you have a drink containing alcohol: never How often do you have six or more drinks on one occasion: Never AUDIT-C Alcohol total score: 0 Non-prescribed substance use: denies use Caffeine: Yes (Pop ocassionally) How often does anyone, including family, friends and others, physically hurt you : never How often does anyone, including family, friends and others, insult or talk down to you: never How often does anyone, including family, friends and others, threaten you with harm: never How often does anyone, including family, friends and others, scream or curse at you: never service: No Exam Narrative: Exam Narrative: Constitutional: Appears well-developed and well-nourished. Initially sleeping but arouses to voice. Breathing easily with her baseline nasal cannula.. Conversant. Non toxic. HENT: Head: Atraumatic. Nose: Nose normal. Mouth/Throat: Oral mucosa is clear and moist. no trismus. Pharynx difficult to visualize due to body habitus. Soft palate Apple tonsils are normal. Tongue normal. Eyes: Conjunctivae normal. EOM normal. Pupils equal, round, and reactive to light. No scleral icterus. Neck: Normal range of motion. Neck supple. No tracheal deviation present. Cardiovascular: Normal rate, regular rhythm. No gallop. No friction rub. No murmur heard. Symmetric radial artery pulses Pulmonary/Chest: Effort normal. No stridor. No respiratory distress. No wheezes. No rales. No rhonchi . No tenderness. Abdominal: Soft. Bowel sounds normal. Protuberant due to body habitus but non tympanic and no distension. No mass. Mild tenderness in the right upper quadrant, left upper quadrant, left lower quadrant, right lower quadrant. Seems to have maximal tenderness in the right mid abdomen. No CVA tenderness. No bruising. No rash. No rebound. No guarding. Musculoskeletal: RUE: Normal range of motion. No tenderness. No deformity LUE: Normal range of motion. No tenderness. No deformity RLE: Normal range of motion. No edema. No tenderness. No deformity LLE: Normal range of motion. No edema. No tenderness. No deformity Neurological: Alert and oriented to person, place, and time. Normal strength. CN II-VII intact. No sensory deficit. GCS eye subscore is 4. GCS verbal subscore is 5. GCS motor subscore is 6. Normal coordination Skin: Skin is warm and dry. No rash noted. No pallor. Normal capillary refill. Psychiatric: Normal mood. Normal affect. Const: Vital Signs, click to edit/add: Vital Signs - 24 hr 05/09/24 07:33 05/09/24 09:08 05/09/24 10:38 Temperature 98.4 F Pulse Rate 83 Pulse Rate [Pulse Oximeter] 91 Respiratory Rate 20 Blood Pressure [Ri ght Forearm] 129/71 Pulse Oximetry 94 94 93 Oxygen Delivery Me thod Nasal Cannula Nasal Cannula Oxygen Flow Rate 2 2 05/09/24 10:45 05/09/24 11:00 05/09/24 11:15 Temperature Pulse Rate 84 87 87 Pulse Rate [Pulse Oximeter] Respiratory Rate Blood Pressure [Ri ght Forearm] Pulse Oximetry 93 93 96 Oxygen Delivery Me thod Oxygen Flow Rate 05/09/24 11:30 05/09/24 11:45 05/09/24 12:00 Temperature Pulse Rate 86 89 84 Pulse Rate [Pulse Oximeter] Respiratory Rate Blood Pressure [Ri ght Forearm] Pulse Oximetry 95 95 94 Oxygen Delivery Me thod Oxygen Flow Rate 05/09/24 12:15 05/09/24 12:30 05/09/24 12:45 Temperature Pulse Rate 84 86 90 Pulse Rate [Pulse Oximeter] Respiratory Rate Blood Pressure [Ri ght Forearm] Pulse Oximetry 94 95 95 Oxygen Delivery Me thod Oxygen Flow Rate 05/09/24 12:47 05/09/24 12:49 05/09/24 12:50 Temperature Pulse Rate 87 87 Pulse Rate [Pulse Oximeter] 83 Respiratory Rate 20 Blood Pressure [Ri ght Forearm] 116/75 Pulse Oximetry 94 95 94 Oxygen Delivery Me thod Nasal Cannula Oxygen Flow Rate 2 05/09/24 13:00 05/09/24 13:15 05/09/24 13:30 Temperature Pulse Rate 85 81 83 Pulse Rate [Pulse Oximeter] Respiratory Rate Blood Pressure [Ri ght Forearm] Pulse Oximetry 94 96 94 Oxygen Delivery Me thod Oxygen Flow Rate 05/09/24 13:45 05/09/24 14:00 Temperature Pulse Rate 78 86 Pulse Rate [Pulse Oximeter] Respiratory Rate 16 Blood Pressure [Ri ght Forearm] Pulse Oximetry 95 94 Oxygen Delivery Me thod Oxygen Flow Rate Course Vital Signs Vital signs: Initial Vital Signs Temperature 98.4 F 05/09/24 07:33 Temperature Source Temporal Artery Scan 05/09/24 07:33 Pulse Rate 91 05/09/24 07:33 Respiratory Rate 20 05/09/24 07:33 Blood Pressure 129/71 05/09/24 07:33 Blood Pressure Mean 90 05/09/24 07:33 Pulse Oximetry 94 05/09/24 07:33 Oxygen Delivery Method Nasal Cannula 05/09/24 07:33 Oxygen Flow Rate 2 05/09/24 07:33 Vital Signs Temperature 98.4 F 05/09/24 07:33 Pulse Rate 91 05/09/24 07:33 Respiratory Rate 20 05/09/24 07:33 Blood Pressure 129/71 05/09/24 07:33 Pulse Oximetry 94 05/09/24 07:33 Oxygen Delivery Method Nasal Cannula 05/09/24 07:33 Oxygen Flow Rate 2 05/09/24 07:33 Temperature 98.4 F 05/09/24 07:33 Pulse Rate 86 05/09/24 14:00 Respiratory Rate 16 05/09/24 13:45 Blood Pressure 116/75 05/09/24 12:47 Pulse Oximetry 94 05/09/24 14:00 Oxygen Delivery Method Nasal Cannula 05/09/24 12:47 Oxygen Flow Rate 2 05/09/24 12:47 Medications Administered Medications: Discontinued Medications Generic Name Dose Route Start Last Admin Trade Name Freq PRN Reason Stop Dose Admin Piperacillin Sod/Tazobactam 100 mls @ 200 mls/hr 05/09/24 12:29 05/09/24 13:34 Sod 4.5 gm/ Sodium Chloride IVPB 05/09/24 12:30 Infused ONCE ONE Infusion Ketorolac Tromethamine 15 mg 05/09/24 08:22 05/09/24 09:15 Ketorolac 15 Mg/Ml Inj IVP 05/09/24 08:23 15 mg ONCE ONE Administration Medical Decision Making [facility] Narrative Medical decision making narrative: Presented to the Emergency Department with pain affecting the right side of her torso in the right mid abdomen, far on the lateral side of the abdomen in the mid axillary line. Exam does not show any evidence for bruising redness, shingles. No signs of abdominal wall trauma, infection. It is a bit lower than the right upper quadrant and is definitely superior to the right lower quadrant. Is not quite all the way posterior to suggest flank pain.. The differential diagnosis of abdominal pain includes: Appendicitis, cholecystitis, biliary coli c, kidney stone, pyelonephritis, right-sided diverticulitis, Bowel Obstruction, Ulcer, Ischemia, Cholecystitis, Diverticulitis, Pancreatitis, UTI, kidney stone, Enteritis/Colitis, amongst many other etiologies. Laboratory testing does not reveal a cause for the patient's pain. CT scan is obtained 1st to look for stone or appendicitis. CT scan shows no definite surgical pathology and no obstructing stone. There is questionable about mesenteric panniculitis so with some intra-abdominal haziness. Incidentally is also gallstones visible on the CT without any clear signs of cholecystitis. Urinalysis is negative for infection and negative for hematuria to suggest stone. Right upper quadrant ultrasound does confirm gallstones and also reveals some wall thickening of her gallbladder suspicious for early cholecystitis. Common bile duct is normal. For function tests are normal save for minimal elevation of ALT at 41 (had been similarly abnormal in February). Lipase is normal. White count is normal. There is a right lower lobe infiltrate on the chest imaging of the abdomen CT. Patient has had a cough for the past month or 2, she says. But not worse lately. No fever. She is not short of breath. She is on her baseline oxygen. Venous blood gas shows a normal pH in the setting of an elevated pCO2 which indicates chronic carbon dioxide retention. She is not having any acute re spiratory symptoms at this time. However will cover with antibiotics (Zosyn and a Zithromax) for community-acquired pneumonia). COVID/influenza is negative. Incidentally, it turns out she also has a previous right vocal cord paralysis. I made consultation with our general surgeon, Dr. Loera. Her evaluation was delayed by couple of hours because she was delayed in the OR with a complex case. She came here to the ER to evaluate the patient and feels the patient likely does have acute cholecystitis and will need admission for surgery. However given the patient's respiratory complexity, she would recommend transfer to a larger facility. The patient has a significant likelihood of postop hypoventilation or difficult extubation and potential need for ICU care and ventilation after her surgery. Therefore transfer prior to surgery would be optimal. Discussed this plan of care with the patient, and with her parents who came here to the ER to be with her. The patient and her parents are agreeable. The patient has her own medical decision maker. She has had previous workup for her paralyzed vocal cords at [facility] and actually had a fiberoptic laryngoscopy there about a month ago. She would be agreeable to transfer to [facility] or another hospital knee [facility]. Through the [facility] access center I did contact the hospitalist at [facility], Dr. Alvarez. He accepts the patient for admission to the medical floor. She will be transferred by EMS. Discussed with surgery, Dr. Ortez, through [facility]. He will see the patient when she arrives. Lab Data Labs: Lab Results 05/09/24 05/09/24 05/09/24 Range/Units 08:35 08:39 09:10 WBC 9.66 (4.50-11.00) K/uL RBC 4.20 (4.00-5.20) m/uL Hgb 12.4 (12.0-16.0) gm/dL Hct 38.5 (33.0-51.0) % MCV 92 (80-100) fL MCH 30 (26-34) pg MCHC 32 (32-36) gm/dL RDW Coeff of Tomy 13.0 (11.5-15.5) % Plt Count 207 (140-440) K/uL Neut % (Auto) 74.6 H (42.0-72.0) % Lymph % (Auto) 17.3 L (20-44) % [place] % (Auto) 5.4 (0.0-11.0) % Eos % (Auto) 2.0 (0.0-7.0) % Baso % (Auto) 0.4 (0.0-3.0) % Neut # (Auto) 7.20 H (1.7-7.0) K/uL Lymph # (Auto) 1.70 (0.90-2.90) K/uL [place] # (Auto) 0.50 (0.00-0.90) K/UL Eos # (Auto) 0.19 (0.00-0.50) K/uL Baso # (Auto) 0.04 (0.00-0.30) K/uL Abs Immat Gran (auto) 0.03 (0.00-0.30) K/uL Imm/Tot Granulo (auto) 0.3 % VBG pH (7.32-7.43) VBG pCO2 (40-50) mmHG VBG pO2 (25-47) mmHG VBG HCO3 (21-28) mmol/L Sodium 138 (135-149) mmol/L Potassium 3.7 (3.6-5.1) mmol/L Chloride 97 (96-114) mmol/L Carbon Dioxide 40 H (20-32) mmol/L Anion Gap 1 L (7-15) mEq/L BUN 14 (5-24) mg/dL Creatinine 0.7 (0.5-1.5) mg/dL Estimated Creat Clear 165.39 Estimated GFR 108 ml/min Glucose 111 (60-115) mg/dL Calcium 8.8 (8.4-10.6) mg/dL Total Bilirubin 0.4 (0.1-1.5) mg/dL AST 29 (12-35) U/L ALT 41 H (4-35) U/L Alkaline Phosphatase 93 (40-150) U/L Total Protein 6.7 (6.0-8.3) g/dL Albumin 3.8 (3.3-5.0) g/dL Lipase 34 (23-300) U/L Urine Color Yellow (Yellow) Urine Appearance Clear (Clear) Urine pH 6.0 (5.0-8.5) Ur Specific [place] 1.020 (1.000-1.030) Urine Protein Negative (Negative) Urine Glucose (UA) Negative (Negative) Urine Ketones Negative (Negative) Urine Blood Negative (Negative) Urine Nitrite Negative (Negative) Urine Bilirubin Negative (Negative) Urine Urobilinogen 0.2 (0.2-1.0) Ur Leukocyte Esterase Negative (Negative) Urine RBC 0-2 (0-2) Urine WBC 2-5 (0-5) Urine WBC Clumps Few A (None) Ur Squamous Epith Cells Moderate A (None-Few) Urine Bacteria Few A (None) Urine HCG, Qual Negative (Negative) SARS-CoV-2 (PCR) (Negative) Influenza Type A (PCR) (Negative) Influenza Type B (PCR) (Negative) POC Creatinine 0.9 (0.6-1.3) mg/dl 05/09/24 05/09/24 Range/Units 13:04 14:45 WBC (4.50-11.00) K/uL RBC (4.00-5.20) m/uL Hgb (12.0-16.0) gm/dL Hct (33.0-51.0) % MCV (80-100) fL MCH (26-34) pg MCHC (32-36) gm/dL RDW Coeff of Tomy (11.5-15.5) % Plt Count (140-440) K/uL Neut % (Auto) (42.0-72.0) % Lymph % (Auto) (20-44) % [place] % (Auto) (0.0-11.0) % Eos % (Auto) (0.0-7.0) % Baso % (Auto) (0.0-3.0) % Neut # (Auto) (1.7-7.0) K/uL Lymph # (Auto) (0.90-2.90) K/uL [place] # (Auto) (0.00-0.90) K/UL Eos # (Auto) (0.00-0.50) K/uL Baso # (Auto) (0.00-0.30) K/uL Abs Immat Gran (auto) (0.00-0.30) K/uL Imm/Tot Granulo (auto) % VBG pH 7.452 H (7.32-7.43) VBG pCO2 55 H (40-50) mmHG VBG pO2 89.1 H (25-47) mmHG VBG HCO3 38 H (21-28) mmol/L Sodium (135-149) mmol/L Potassium (3.6-5.1) mmol/L Chloride (96-114) mmol/L Carbon Dioxide (20-32) mmol/L Anion Gap (7-15) mEq/L BUN (5-24) mg/dL Creatinine (0.5-1.5) mg/dL Estimated Creat Clear Estimated GFR ml/min Glucose (60-115) mg/dL Calcium (8.4-10.6) mg/dL Total Bilirubin (0.1-1.5) mg/dL AST (12-35) U/L ALT (4-35) U/L Alkaline Phosphatase (40-150) U/L Total Protein (6.0-8.3) g/dL Albumin (3.3-5.0) g/dL Lipase (23-300) U/L Urine Color (Yellow) Urine Appearance (Clear) Urine pH (5.0-8.5) Ur Specific [place] (1.000-1.030) Urine Protein (Negative) Urine Glucose (UA) (Negative) Urine Ketones (Negative) Urine Blood (Negative) Urine Nitrite (Negative) Urine Bilirubin (Negative) Urine Urobilinogen (0.2-1.0) Ur Leukocyte Esterase (Negative) Urine RBC (0-2) Urine WBC (0-5) Urine WBC Clumps (None) Ur Squamous Epith Cells (None-Few) Urine Bacteria (None) Urine HCG, Qual (Negative) SARS-CoV-2 (PCR) Negative SARS-CoV-2 (Negative) Influenza Type A (PCR) Negative PCR FLU A (Negative) Influenza Type B (PCR) Negative PCR FLU B (Negative) POC Creatinine (0.6-1.3) mg/dl Imaging Data RUQ US: Attestation: I have reviewed the pertinent imaging results. Radiologist's impression: IMPRESSION: 1. Cholelithiasis with gallbladder wall thickening. Sonographic Jacobson`s sign is negative. Findings are inconclusive for acute cholecystitis. Recommend correlation with recent pain medication administration, presence of clinical Jacobson sign, and consider nuclear medicine hepatobiliary imaging if there is continued clinical uncertainty. 2. No biliary ductal dilation. CT scan - abdomen: Attestation: I have reviewed the pertinent imaging results. Radiologist's impression: Impression: 1. Cholelithiasis without CT evidence of acute cholecystitis. 2. Hepatic steatosis. 3. New small patchy area of consolidation within the right lower lobe, likely infectious/inflammatory. 4. Minimal mid abdominal mesenteric haziness which is a nonspecific finding but commonly seen in the setting of mesenteric panniculitis, similar to prior. Discharge Plan Discharge Clinical Impression: Acute cholecystitis, Pneumonia, Chronic respiratory failure Patient Disposition: Admitted As Observation
--- NOTE | 2024-05-09 08:22 | CRLHL7_ITS ---
For Patients: As a result of the Century Cures Act, medical imaging exams and procedure reports are released immediately into your electronic medical record. You may view this report before your referring provider. If you have questions, please contact your health care provider. Indication: Right mid abdominal pain. Technique: CT of the abdomen and pelvis was performed following the administration of 99 mL Isovue 370. Comparison: 11/01/2009. 11/14/2023, 01/16/2024. Findings: Visualized lung bases: New small area of patchy/nodular consolidation within the right lower lobe, likely infectious/inflammatory in etiology.. Liver: Diffuse hepatic steatosis. Cholelithiasis without pericholecystic inflammatory change. No biliary ductal dilation. Pancreas: Unremarkable. Spleen: Unremarkable. Adrenals: Unremarkable. Kidneys: Unremarkable. No nephrolithiasis or hydronephrosis. Aorta/IVC: Mild atherosclerotic aortic calcifications without aneurysmal dilation. Lymph nodes: No lymphadenopathy. Bowel: Nonobstructed bowel. Normal appendix. Mild mid abdominal mesenteric haziness with adjacent subcentimeter mesenteric lymph nodes, unchanged. No intraperitoneal free air or fluid. Pelvis: Decompressed bladder. Otherwise unremarkable. Bones/body wall: Unremarkable for age. Impression: 1. Cholelithiasis without CT evidence of acute cholecystitis. 2. Hepatic steatosis. 3. New small patchy area of consolidation within the right lower lobe, likely infectious/inflammatory. 4. Minimal mid abdominal mesenteric haziness which is a nonspecific finding but commonly seen in the setting of mesenteric panniculitis, similar to prior. Please note that all CT scans at this facility use dose modulation, iterative reconstruction, and/or weight-based dosing when appropriate to reduce radiation dose to as low as reasonably achievable. Dictated by Jeannette Huitron MD @ 05/09/2024 10:13:07 AM (Electronically Signed)
[2024-05-09 08:49] LABS: Basophils Absolute Auto 0.04 K/uL (0.00-0.30); Basophils Percent Auto 0.4 % (0.0-3.0); Eosinophils Absolute Auto 0.19 K/uL (0.00-0.50); Hematocrit 38.5 % (33.0-51.0); Hemoglobin* 12.4 gm/dL (12.0-16.0); Immature Granulocytes Abs Auto 0.03 K/uL (0.00-0.30); Immature Granulocytes Pct Auto 0.3 %; Lymphocytes Percent Auto 17.3 % (20-44); Mean Corpuscular HGB Conc 32 gm/dL (32-36); Mean Corpuscular Hemoglobin 30 pg (26-34); Mean Corpuscular Volume 92 fL (80-100); Monocytes Percent Auto 5.4 % (0.0-11.0); Neutrophils Percent Auto 74.6 % (42.0-72.0); Platelet Count* 207 K/uL (140-440); White Blood Count* 9.66 K/uL (4.50-11.00)
[2024-05-09 08:56] LABS: Creatinine, Point-of-Care* 0.9 mg/dl (0.6-1.3)
[2024-05-09 09:04] LABS: Albumin* 3.8 g/dL (3.3-5.0); Chloride* 97 mmol/L (96-114); Potassium* 3.7 mmol/L (3.6-5.1); Sodium* 138 mmol/L (135-149)
[2024-05-09 09:06] LABS: Anion Gap 1 mEq/L (7-15); Bilirubin Total* 0.4 mg/dL (0.1-1.5); Carbon Dioxide* 40 mmol/L (20-32); Creatinine* 0.7 mg/dL (0.5-1.5); Est. Creatinine Clearance* 165.39; Estimated Glomerular Filt Rate 108 ml/min
[2024-05-09 09:07] LABS: Alanine Aminotransferase* 41 U/L (4-35); Alkaline Phosphatase* 93 U/L (40-150); Aspartate Amino Transferase* 29 U/L (12-35); Blood Urea Nitrogen* 14 mg/dL (5-24); Calcium* 8.8 mg/dL (8.4-10.6); Glucose* 111 mg/dL (60-115); Lipase* 34 U/L (23-300); Total Protein* 6.7 g/dL (6.0-8.3)
[2024-05-09 09:13] LABS: Slide Review Reflex No
[2024-05-09] MEDS: KETOROLAC 15 MG/ML inj IVP ×2 (09:15→18:07)
[2024-05-09 09:16] LABS: Appearance Urine Clear (Clear); Bilirubin Urine Negative (Negative); Blood Urine Negative (Negative); Color Urine Yellow (Yellow); Glucose Urine Negative (Negative); Ketones Urine Negative (Negative); Leukocyte Esterase Urine Negative (Negative); Nitrite Urine Negative (Negative); Protein Urine Negative (Negative); Urobilinogen Urine 0.2 (0.2-1.0)
[2024-05-09 09:20] LABS: Ur HCG Qualitative* Negative (Negative)
[2024-05-09 09:34] LABS: RBC Urine 0-2 (0-2)
[2024-05-09 09:35] LABS: Bacteria Urine Few; Squamous Epithelial Cell Urine Moderate (None-Few); WBC Clumps Urine Few
--- NOTE | 2024-05-09 10:26 | CRLHL7_ITS ---
For Patients: As a result of the Century Cures Act, medical imaging exams and procedure reports are released immediately into your electronic medical record. You may view this report before your referring provider. If you have questions, please contact your health care provider. INDICATION: Right upper quadrant abdominal pain, gallstones on CT. TECHNIQUE: Ultrasound abdomen limited. COMPARISON: Same day CT abdomen and pelvis. FINDINGS: Gallbladder: Multiple shadowing gallstones are seen within the gallbladder. Gallbladder wall is thickened measuring up to 4 mm in thickness. No pericholecystic fluid. Negative sonographic Jacobson`s sign. Common bile duct: 3 mm. Unremarkable limited exam of the common bile duct, without visualized filling defect. IMPRESSION: 1. Cholelithiasis with gallbladder wall thickening. Sonographic Jacobson`s sign is negative. Findings are inconclusive for acute cholecystitis. Recommend correlation with recent pain medication administration, presence of clinical Jacobson sign, and consider nuclear medicine hepatobiliary imaging if there is continued clinical uncertainty. 2. No biliary ductal dilation. Dictated by Jeannette Huitron MD @ 05/09/2024 11:40:33 AM (Electronically Signed)
[2024-05-09] MEDS: PIPERACILLIN/TAZOBACTAM 4.5 GM in 0.9 % SODIUM CHLORIDE Mini-bag 100 ML IVPB (12:53)
[2024-05-09 13:09] LABS: HCO3 VBG 38 mmol/L (21-28); PCO2 VBG 55 mmHG (40-50); PO2 VBG 89.1 mmHG (25-47); pH VBG 7.452 (7.32-7.43)
--- NOTE | 2024-05-09 14:58 | P.GSCN_ITS ---
History of Present Illness Consult details Date Seen: 05/09/24 Consult date: 05/09/24 Narrative: Patient presented to the emergency department with severe right-sided abdominal pain. She has had episodes of pain similar to this before, but nothing this intense. Patient denies any food bringing on the pain. The pain does get worse when she moves. Nothing seems to make it better. She denies any associated nausea or emesis. No fevers. She does suffer from reflux and takes omeprazole. This pain feels different than her reflux. She has never had abdominal surgery before. Patient has a history of COPD and is O2 dependent on 2 L. she denies any increase oxygen needs recently. She does live in assisted living, she moved there February 23. We then she has had a cough since moving which she contributes to the dry air in her room. She is around a lot of people with respiratory illnesses. 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 - Unspecified convulsions (ICD-10) RODRICK (obstructive sleep apnea) ?G47.33 - Obstructive sleep apnea (adult) (pediatric) (ICD-10) ADHD ?F90.9 - Attention-deficit hyperactivity disorder, unspecified type (ICD-10) Hyperthyroidism ?E05.90 - Thyrotoxicosis, unspecified without thyrotoxic crisis or storm (ICD-10) Hydrocephalus ?G91.9 - Hydrocephalus, unspecified (ICD-10) Hyperlipidemia ?E78.5 - Hyperlipidemia, unspecified (ICD-10) Anxiety and depression ?F41.9 - Anxiety disorder, unspecified (ICD-10) ?F32.A - Depression, unspecified (ICD-10) Asthma ?J45.909 - Unspecified asthma, uncomplicated (ICD-10) Surgical History History of ear surgery ?Z98.890 - Other specified postprocedural states (ICD-10) History of strabismus surgery ?Z98.890 - Other specified postprocedural states (ICD-10) Social History Narrative: on disability since 2009; lives alone with her cat. nonsmoker, no drugs, no significant tobacco history adopted, her two adopted aunts are her family contacts. What is your current living situation?: I presently have a place to live Problems where you live: no known problems Problems where you live details: None In the past 12 months, utilities in danger of being shut off: no In the past 12 mos, have been you worried that your food would run out before you had money to buy more?: never true In the past 12 mos, the food you bought just didn't last and you didn't have money to buy more?: never true Highest level of school completed/degree received: Associate degree: academic program Smoking Status: Former smoker What tobacco products do you use: cigarettes Smoking quit date/years: <= 15 years ago Do you use any of these nicotine containing products: None Second hand tobacco smoke exposure: Yes How often do you have a drink containing alcohol: never How often do you have six or more drinks on one occasion: Never AUDIT-C Alcohol total score: 0 Non-prescribed substance use: denies use Caffeine: Yes (Pop ocassionally) How often does anyone, including family, friends and others, physically hurt you : never How often does anyone, including family, friends and others, insult or talk down to you: never How often does anyone, including family, friends and others, threaten you with harm: never How often does anyone, including family, friends and others, scream or curse at you: never service: No Meds Home Medications and Allergies Home Medications ?Medication ?Instructions ?Recorded ?Confirmed ?Type albuterol sulfate 90 mcg/actuation 1 - 2 puff inhalation Q4H PRN 11/30/21 03/20/24 History aerosol inhaler mirabegron 50 mg tablet,extended 50 mg PO DAILY 11/30/21 03/20/24 History release 24 hr (Myrbetriq) montelukast 10 mg tablet 10 mg PO HS 11/30/21 03/20/24 History omeprazole 20 mg capsule,delayed 40 mg PO DAILY 02/26/22 03/20/24 History release levetiracetam 750 mg tablet 750 mg PO BID 11/25/22 03/20/24 History (Keppra) cholecalciferol (vitamin D3) 50 50 mcg PO DAILY 01/30/23 03/20/24 History mcg (2,000 unit) capsule paroxetine HCl 40 mg tablet 40 mg PO DAILY 01/30/23 03/20/24 History levothyroxine 100 mcg tablet 100 mcg PO DAILY 10/16/23 03/20/24 History potassium chloride 10 mEq 20 meq PO DAILY 10/16/23 03/20/24 History tablet,extended release acetaminophen 325 mg tablet 325 - 650 mg PO Q4-6H PRN 03/20/24 03/20/24 History (Aminofen) aluminum-mag hydroxide-simethicone 5 - 10 ml PO 5XD PRN 03/20/24 03/20/24 History 200 mg-200 mg-20 mg/5 mL oral susp (Maalox Advanced) dextromethorphan HBr 10 mg/5 mL 5 - 10 mg PO Q4-6H PRN 03/20/24 03/20/24 History oral syrup diphenhydramine HCl 25 mg capsule 25 - 50 mg PO Q8H PRN 03/20/24 03/20/24 History (Banophen) ibuprofen 200 mg capsule 200 - 400 mg PO Q4-6H PRN 03/20/24 03/20/24 History loperamide 2 mg tablet 1 mg PO Q6H PRN 03/20/24 03/20/24 History (Anti-Diarrheal (loperamide)) magnesium hydroxide 400 mg/5 mL 15 - 30 ml PO DAILY PRN 03/20/24 03/20/24 History oral suspension (Milk of Magnesia) terbinafine HCl 1 % topical cream applic topical Q12H 03/20/24 History tirzepatide (weight loss) 2.5 2.5 mg subcut QWEEK 03/20/24 03/20/24 History mg/0.5 mL subcutaneous pen injector (Zepbound) Allergies Allergy/AdvReac Type Severity Reaction Status Date / Time azithromycin Allergy Intermediate Bloody Verified 04/21/24 12:50 Stools latex Allergy Intermediate Rash Verified 04/21/24 12:50 oxycodone Allergy Intermediate Agitated Verified 04/21/24 12:50 scopolamine Allergy Intermediate Tremors Verified 04/21/24 12:50 acetaminophen (From Percocet) Allergy Mild Verified 03/20/24 13:02 basil Allergy Rash Verified 04/21/24 12:50 Exam Narrative: Exam Narrative: General: Alert and oriented, no acute distress Respiratory: Nasal cannula in place, equal breath rise. Patient is currently on 2 L. No tachypnea with conversation. CV: Regular rhythm and rate Abdomen: Obese abdomen soft, nontender to palpation Const: Vital Signs, click to edit/add: Vital Signs - 24 hr 05/09/24 07:33 05/09/24 09:08 05/09/24 10:38 Temperature 98.4 F Pulse Rate 83 Pulse Rate [Pulse Oximeter] 91 Respiratory Rate 20 Blood Pressure [Ri ght Forearm] 129/71 Pulse Oximetry 94 94 93 Oxygen Delivery Me thod Nasal Cannula Nasal Cannula Oxygen Flow Rate 2 2 05/09/24 10:45 05/09/24 11:00 05/09/24 11:15 Temperature Pulse Rate 84 87 87 Pulse Rate [Pulse Oximeter] Respiratory Rate Blood Pressure [Ri ght Forearm] Pulse Oximetry 93 93 96 Oxygen Delivery Me thod Oxygen Flow Rate 05/09/24 11:30 05/09/24 11:45 05/09/24 12:00 Temperature Pulse Rate 86 89 84 Pulse Rate [Pulse Oximeter] Respiratory Rate Blood Pressure [Ri ght Forearm] Pulse Oximetry 95 95 94 Oxygen Delivery Me thod Oxygen Flow Rate 05/09/24 12:15 05/09/24 12:30 05/09/24 12:45 Temperature Pulse Rate 84 86 90 Pulse Rate [Pulse Oximeter] Respiratory Rate Blood Pressure [Ri ght Forearm] Pulse Oximetry 94 95 95 Oxygen Delivery Me thod Oxygen Flow Rate 05/09/24 12:47 05/09/24 12:49 05/09/24 12:50 Temperature Pulse Rate 87 87 Pulse Rate [Pulse Oximeter] 83 Respiratory Rate 20 Blood Pressure [Ri ght Forearm] 116/75 Pulse Oximetry 94 95 94 Oxygen Delivery Me thod Nasal Cannula Oxygen Flow Rate 2 05/09/24 13:00 05/09/24 13:15 05/09/24 13:30 Temperature Pulse Rate 85 81 83 Pulse Rate [Pulse Oximeter] Respiratory Rate Blood Pressure [Ri ght Forearm] Pulse Oximetry 94 96 94 Oxygen Delivery Me thod Oxygen Flow Rate 05/09/24 13:45 05/09/24 14:00 Temperature Pulse Rate 78 86 Pulse Rate [Pulse Oximeter] Respiratory Rate 16 Blood Pressure [Ri ght Forearm] Pulse Oximetry 95 94 Oxygen Delivery Me thod Oxygen Flow Rate Results Labs Labs: Abnormal lab results 05/09/24 05/09/24 05/09/24 Range/Units 08:35 09:10 13:04 Neut % (Auto) 74.6 H (42.0-72.0) % Lymph % (Auto) 17.3 L (20-44) % Neut # (Auto) 7.20 H (1.7-7.0) K/uL VBG pH 7.452 H (7.32-7.43) VBG pCO2 55 H (40-50) mmHG VBG pO2 89.1 H (25-47) mmHG VBG HCO3 38 H (21-28) mmol/L Carbon Dioxide 40 H (20-32) mmol/L Anion Gap 1 L (7-15) mEq/L ALT 41 H (4-35) U/L Urine WBC Clumps Few A (None) Ur Squamous Epith Cells Moderate A (None-Few) Urine Bacteria Few A (None) Diabetes panel 05/09/24 Range/Units 08:35 Sodium 138 (135-149) mmol/L Potassium 3.7 (3.6-5.1) mmol/L Chloride 97 (96-114) mmol/L Carbon Dioxide 40 H (20-32) mmol/L BUN 14 (5-24) mg/dL Creatinine 0.7 (0.5-1.5) mg/dL Glucose 111 (60-115) mg/dL Calcium 8.8 (8.4-10.6) mg/dL AST 29 (12-35) U/L ALT 41 H (4-35) U/L Alkaline Phosphatase 93 (40-150) U/L Total Protein 6.7 (6.0-8.3) g/dL Albumin 3.8 (3.3-5.0) g/dL Calcium panel 05/09/24 Range/Units 08:35 Calcium 8.8 (8.4-10.6) mg/dL Albumin 3.8 (3.3-5.0) g/dL Pituitary panel 05/09/24 Range/Units 08:35 Sodium 138 (135-149) mmol/L Potassium 3.7 (3.6-5.1) mmol/L Chloride 97 (96-114) mmol/L Carbon Dioxide 40 H (20-32) mmol/L BUN 14 (5-24) mg/dL Creatinine 0.7 (0.5-1.5) mg/dL Glucose 111 (60-115) mg/dL Calcium 8.8 (8.4-10.6) mg/dL Adrenal panel 05/09/24 Range/Units 08:35 Sodium 138 (135-149) mmol/L Potassium 3.7 (3.6-5.1) mmol/L Chloride 97 (96-114) mmol/L Carbon Dioxide 40 H (20-32) mmol/L BUN 14 (5-24) mg/dL Creatinine 0.7 (0.5-1.5) mg/dL Glucose 111 (60-115) mg/dL Calcium 8.8 (8.4-10.6) mg/dL Total Bilirubin 0.4 (0.1-1.5) mg/dL AST 29 (12-35) U/L ALT 41 H (4-35) U/L Alkaline Phosphatase 93 (40-150) U/L Total Protein 6.7 (6.0-8.3) g/dL Albumin 3.8 (3.3-5.0) g/dL All other labs normal. Imaging Abdomen CT scan report/results: report reviewed and image reviewed Abdominal ultrasound report/results: report reviewed and image reviewed Progress Note:A&P Assessment and plan (1) Chronic cholecystitis due to gallbladder calculus with obstruction: Status: Acute Assessment and Plan: Patient is a 48-year-old female who presents with right upper quadrant abdominal pain. Symptoms are suggestive for cholecystitis. Vital signs have been stable since admission. Labs show no leukocytosis and LFTs within normal limits. A CT scan was performed which showed several findings. There was evidence of cholelithiasis and hepatic steatosis. New patchy area of consolidation within the right lower lobe concerning for infectious. Would want to rule out pneumonia with a chest x-ray. Low concern at this time given no reported history of fever and stable oxygen needs. If no evidence of pneumonia would favor chronic cholecystitis as etiology. Given the patients persistent symptoms risks and benefits of operative intervention were discussed at length with the patient. Patient is a high risk surgical candidate given her morbid obesity, COPD and chronic O2 needs. She is also severely deconditioned and unable to go a few steps without becoming short of breath. Anesthesia did evaluate the patient, with her reporting a history of unilateral vocal cord paralysis, significant upper airway swelling and inflammation. She recently had a direct laryngoscopy performed which showed a very narrowed passage. She has been unable to tolerate CPAP in the past. Given these comorbidities patient is at risk for a respiratory complication postoperatively and would recommend transfer to a tertiary care center.
[2024-05-09 15:28] LABS: PCR FLU A Negative PCR FLU A (Negative); PCR FLU B Negative PCR FLU B (Negative); SARS PCR* Negative SARS-CoV-2 (Negative)
== END 2024-05-09 20:17 | disposition short-term general hospital (02) ==
PROVIDERS: Emergency Medicine; Emergency Provider Family Medicine; PCP Family Medicine
DX: K81.0 Acute cholecystitis (principal); J11.89 Influenza due to unidentified influenza virus with other manifestations; J96.10 Chronic respiratory failure, unspecified whether with hypoxia or hypercapnia
CPT/HCPCS: 36415; 74177; 76705; 80053; 81001; 81025; 82565; 82803; 83690; 85025; 87086; 87631; 94761; 96365; 96375; 96376; 99284; 99285; J1885; J2543; Q9967

== ENCOUNTER 2024-05-09 20:04 | Outpatient (CLI) | payer OTHER, SELFPAY | END 2024-05-09 20:05 | disposition home or self-care (01) | LOC: AMB 05-10 17:44 | PROVIDERS: PCP Family Medicine; Visit Provider Family Medicine | DX: J18.9 Pneumonia, unspecified organism (principal); K81.9 Cholecystitis, unspecified; J96.10 Chronic respiratory failure, unspecified whether with hypoxia or hypercapnia | CPT/HCPCS: A0425; A0429 ==

== ENCOUNTER 2024-05-24 20:11 | Outpatient (CLI) | payer MEDICARE, SELFPAY | END 2024-05-24 20:12 | disposition home or self-care (01) | LOC: AMB 05-26 08:14 | PROVIDERS: PCP Family Medicine; Visit Provider Family Medicine | DX: R06.09 Other forms of dyspnea (principal) | CPT/HCPCS: A0425; A0427 ==

== ENCOUNTER 2024-05-24 20:49 | Emergency (ER) | payer OTHER, SELFPAY ==
[2024-05-24] VITALS (14 sets, daily range): BP systolic 143; BP diastolic 83; PULSE 93–120; RESP 20–22; TEMP 37.3; O2SAT 90–96
--- NOTE | 2024-05-24 21:30 | CRLHL7_ITS ---
For Patients: As a result of the Century Cures Act, medical imaging exams and procedure reports are released immediately into your electronic medical record. You may view this report before your referring provider. If you have questions, please contact your health care provider. INDICATION: Shortness of breath. TECHNIQUE: Chest 2 views. COMPARISON: 03/20/2024. FINDINGS: Cardiovascular and mediastinum: Mild cardiomegaly, unchanged. Enlarged main pulmonary artery, compatible with pulmonary arterial hypertension. Lungs and pleural spaces: Diffuse increased interstitial lung markings. No focal consolidation, pleural effusion, or pneumothorax. Bones and soft tissues: Unremarkable for age. IMPRESSION: There is increased interstitial lung markings, compatible with pulmonary edema or diffuse infection. Dictated by Fercho Head MD @ 05/24/2024 11:52:45 PM (Electronically Signed)
[2024-05-24 22:03] LABS: Lactate* 0.6 mmol/L (0.5-1.9)
[2024-05-24 22:08] LABS: Basophils Percent Auto 0.4 % (0.0-3.0); Eosinophils Percent Auto 1.4 % (0.0-7.0); Hematocrit 35.3 % (33.0-51.0); Hemoglobin* 11.3 gm/dL (12.0-16.0); Immature Granulocytes Pct Auto 0.5 %; Lymphocytes Percent Auto 11.8 % (20-44); Mean Corpuscular HGB Conc 32 gm/dL (32-36); Mean Corpuscular Hemoglobin 30 pg (26-34); Mean Corpuscular Volume 94 fL (80-100); Monocytes Percent Auto 5.6 % (0.0-11.0); Neutrophils Percent Auto 80.3 % (42.0-72.0); Platelet Count* 221 K/uL (140-440); RDW Coefficient of Variation % 13.4 % (11.5-15.5); Red Blood Count 3.76 m/uL (4.00-5.20)
[2024-05-24] MEDS: predniSONE 10 MG TABLET 50 MG PO (22:12)
[2024-05-24] MEDS: IPRAT-ALBUT 0.5-2.5 MG/3 ML NEB 1 NEB IH (22:12)
[2024-05-24 22:16] LABS: Slide Review Reflex No
[2024-05-24 22:21] LABS: Chloride* 98 mmol/L (96-114); Potassium* 5.3 mmol/L (3.6-5.1); Sodium* 137 mmol/L (135-149)
[2024-05-24 22:24] LABS: Creatinine* 0.6 mg/dL (0.5-1.5); Estimated Glomerular Filt Rate 112 ml/min
[2024-05-24 22:25] LABS: Anion Gap 2 mEq/L (7-15); Blood Urea Nitrogen* 14 mg/dL (5-24); Carbon Dioxide* 37 mmol/L (20-32); Glucose* 118 mg/dL (60-115); Magnesium* 2.1 mg/dL (1.5-2.6)
[2024-05-24 22:27] LABS: C Reactive Protein* 6.4 mg/dL (0.5-1.0)
[2024-05-24 22:37] LABS: Troponin I* 0.02 ng/mL (0.01-0.04)
[2024-05-24 22:43] LABS: PCR FLU A Negative PCR FLU A (Negative); PCR FLU B Negative PCR FLU B (Negative); PCR RSV Negative PCR RSV (Negative); SARS PCR* Negative SARS-CoV-2 (Negative)
--- NOTE | 2024-05-24 22:47 | ED_ITS ---
HPI - General Adult General Chief complaint: Shortness of Breath/Dyspnea Stated complaint: trouble breathing Time Seen by Provider: 05/24/24 20:51 Source: patient Mode of arrival: ambulatory Limitations: no limitations History of Present Illness HPI narrative: 48-year-old female presenting today with shortness of breath. Patient states she has been short of breath for several days, unclear how long. She denies fevers or chills. She denies increasing cough. She has not turned up her oxygen which she is chronically on. Patient does have history of asthma, states that she took her albuterol inhaler twice today which did not seem to help too much. She continues using her regularly prescribed inhalers. Related Data Home Medications ?Medication ?Instructions ?Recorded ?Confirmed albuterol sulfate 90 mcg/actuation 1 - 2 puff inhalation Q4H PRN 11/30/21 03/20/24 aerosol inhaler mirabegron 50 mg tablet,extended 50 mg PO DAILY 11/30/21 03/20/24 release 24 hr (Myrbetriq) montelukast 10 mg tablet 10 mg PO HS 11/30/21 03/20/24 omeprazole 20 mg capsule,delayed 40 mg PO DAILY 02/26/22 03/20/24 release levetiracetam 750 mg tablet 750 mg PO BID 11/25/22 03/20/24 (Keppra) cholecalciferol (vitamin D3) 50 50 mcg PO DAILY 01/30/23 03/20/24 mcg (2,000 unit) capsule paroxetine HCl 40 mg tablet 40 mg PO DAILY 01/30/23 03/20/24 levothyroxine 100 mcg tablet 100 mcg PO DAILY 10/16/23 03/20/24 potassium chloride 10 mEq 20 meq PO DAILY 10/16/23 03/20/24 tablet,extended release acetaminophen 325 mg tablet 325 - 650 mg PO Q4-6H PRN 03/20/24 03/20/24 (Aminofen) aluminum-mag hydroxide-simethicone 5 - 10 ml PO 5XD PRN 03/20/24 03/20/24 200 mg-200 mg-20 mg/5 mL oral susp (Maalox Advanced) dextromethorphan HBr 10 mg/5 mL 5 - 10 mg PO Q4-6H PRN 03/20/24 03/20/24 oral syrup diphenhydramine HCl 25 mg capsule 25 - 50 mg PO Q8H PRN 03/20/24 03/20/24 (Banophen) ibuprofen 200 mg capsule 200 - 400 mg PO Q4-6H PRN 03/20/24 03/20/24 loperamide 2 mg tablet 1 mg PO Q6H PRN 03/20/24 03/20/24 (Anti-Diarrheal (loperamide)) magnesium hydroxide 400 mg/5 mL 15 - 30 ml PO DAILY PRN 03/20/24 03/20/24 oral suspension (Milk of [employer]) terbinafine HCl 1 % topical cream applic topical Q12H 03/20/24 tirzepatide (weight loss) 2.5 2.5 mg subcut QWEEK 03/20/24 03/20/24 mg/0.5 mL subcutaneous pen injector (Zepbound) Previous Rx's ?Medication ?Instructions ?Recorded albuterol sulfate 2.5 mg/3 mL 2.5 mg (3 mL) inhalation Q8H PRN 02/02/23 (0.083 %) solution for nebulization #1 mL budesonide-formoterol HFA 160 2 puff inhalation BID #1 g 02/02/23 mcg-4.5 mcg/actuation aerosol inhaler (Symbicort) furosemide 40 mg tablet 40 mg PO DAILY #30 tabs 02/02/23 tiotropium bromide 2.5 2 puff inhalation DAILY #1 g 02/02/23 mcg/actuation mist for inhalation (Spiriva Respimat) doxycycline hyclate 100 mg capsule 100 mg PO BID #14 caps 02/24/24 prednisone 20 mg tablet 20 mg PO BID #10 tabs 02/24/24 amoxicillin 875 mg-potassium 1 tab PO BID 6 days #12 tabs 05/25/24 clavulanate 125 mg tablet amoxicillin 875 mg-potassium 1 tab PO BID 7 days #14 tabs 05/25/24 clavulanate 125 mg tablet doxycycline hyclate 100 mg capsule 100 mg PO BID 6 days #12 caps 05/25/24 doxycycline hyclate 100 mg capsule 100 mg PO BID 7 days #14 caps 05/25/24 Allergies Allergy/AdvReac Type Severity Reaction Status Date / Time azithromycin Allergy Intermediate Bloody Verified 04/21/24 12:50 Stools latex Allergy Intermediate Rash Verified 04/21/24 12:50 oxycodone Allergy Intermediate Agitated Verified 04/21/24 12:50 scopolamine Allergy Intermediate Tremors Verified 04/21/24 12:50 acetaminophen (From Percocet) Allergy Mild Verified 03/20/24 13:02 basil Allergy Rash Verified 04/21/24 12:50 Review of Systems Status of ROS: Reports: 10 or more systems reviewed and unremarkable except as noted in History and below PFSH [facility] Medical History Hypothyroidism ?E03.9 - Hypothyroidism, unspecified (ICD-10) Acute and chronic respiratory failure with hypoxia ?J96.21 - Acute and chronic respiratory failure with hypoxia (ICD-10) 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 - Unspecified convulsions (ICD-10) RODRICK (obstructive sleep apnea) ?G47.33 - Obstructive sleep apnea (adult) (pediatric) (ICD-10) ADHD ?F90.9 - Attention-deficit hyperactivity disorder, unspecified type (ICD-10) Hyperthyroidism ?E05.90 - Thyrotoxicosis, unspecified without thyrotoxic crisis or storm (ICD-10) Hydrocephalus ?G91.9 - Hydrocephalus, unspecified (ICD-10) Hyperlipidemia ?E78.5 - Hyperlipidemia, unspecified (ICD-10) Anxiety and depression ?F41.9 - Anxiety disorder, unspecified (ICD-10) ?F32.A - Depression, unspecified (ICD-10) Asthma ?J45.909 - Unspecified asthma, uncomplicated (ICD-10) Surgical History History of ear surgery ?Z98.890 - Other specified postprocedural states (ICD-10) History of strabismus surgery ?Z98.890 - Other specified postprocedural states (ICD-10) Social History Narrative: on disability since 2009; lives alone with her cat. nonsmoker, no drugs, no significant tobacco history adopted, her two adopted aunts are her family contacts. What is your current living situation?: I presently have a place to live Problems where you live: no known problems Problems where you live details: None In the past 12 months, utilities in danger of being shut off: no In past 12 months, lack of transportation kept you from medical appts, meetings, work, or getting things needed for daily living: no In the past 12 mos, have been you worried that your food would run out before you had money to buy more?: never true In the past 12 mos, the food you bought just didn't last and you didn't have money to buy more?: never true Highest level of school completed/degree received: Associate degree: academic program Smoking Status: Former smoker What tobacco products do you use: cigarettes Smoking quit date/years: <= 15 years ago Do you use any of these nicotine containing products: None Second hand tobacco smoke exposure: Yes How often do you have a drink containing alcohol: never How often do you have six or more drinks on one occasion: Never AUDIT-C Alcohol total score: 0 Non-prescribed substance use: denies use Caffeine: Yes (Pop ocassionally) How often does anyone, including family, friends and others, physically hurt you : never How often does anyone, including family, friends and others, insult or talk down to you: never How often does anyone, including family, friends and others, threaten you with harm: never How often does anyone, including family, friends and others, scream or curse at you: never service: No Exam Narrative: Exam Narrative: Obese, well-developed patient in mild respiratory distress. Alert and oriented. Answers questions appropriately. Has a hard time completing a sentence without catching her breath. HEENT: Normocephalic atraumatic. Conjunctivae are moist without any icterus noted. Moist mucous membranes. Posterior pharynx appears normal. Neck is soft. Cardiovascular: Heart is regular rate and rhythm S1 and S2 are present without any murmurs. Lungs: Decreased breath sounds bilaterally with very faint expiratory wheezing, left greater than the right. Abdomen: Soft and nontender nondistended with normal bowel sounds. Extremities: Bilateral lower extremities are without edema. Delete the Skin: Well perfused without any obvious rashes. Const: Vital Signs, click to edit/add: Vital Signs - 24 hr 05/24/24 21:06 05/24/24 21:17 05/24/24 21:30 Temperature 99.1 F Pulse Rate 97 94 Pulse Rate [Pulse Oximeter] 99 Respiratory Rate 20 Blood Pressure [Ri ght Upper Arm] 143/83 H Pulse Oximetry 93 93 95 Oxygen Delivery Me thod Room Air Oxygen Flow Rate 05/24/24 21:45 05/24/24 22:00 05/24/24 22:15 Temperature Pulse Rate 96 95 93 Pulse Rate [Pulse Oximeter] Respiratory Rate 22 Blood Pressure [Ri ght Upper Arm] Pulse Oximetry 93 94 96 Oxygen Delivery Me thod Oxygen Flow Rate 05/24/24 22:20 05/24/24 22:30 05/24/24 22:30 Temperature Pulse Rate 96 Pulse Rate [Pulse Oximeter] Respiratory Rate 20 Blood Pressure [Ri ght Upper Arm] Pulse Oximetry 94 93 93 Oxygen Delivery Me thod OxyMask OxyMask Oxygen Flow Rate 4 3 05/24/24 22:45 05/24/24 22:45 05/24/24 22:55 Temperature Pulse Rate 94 Pulse Rate [Pulse Oximeter] Respiratory Rate Blood Pressure [Ri ght Upper Arm] Pulse Oximetry 93 92 90 Oxygen Delivery Me thod OxyMask Nasal Cannula Nasal Cannula Oxygen Flow Rate 2 2 2 05/24/24 23:05 05/24/24 23:15 05/24/24 23:30 Temperature Pulse Rate 120 H 97 100 Pulse Rate [Pulse Oximeter] Respiratory Rate Blood Pressure [Ri ght Upper Arm] Pulse Oximetry 91 96 91 Oxygen Delivery Me thod Nasal Cannula Nasal Cannula Nasal Cannula Oxygen Flow Rate 2 2 2 05/24/24 23:45 Temperature Pulse Rate 102 H Pulse Rate [Pulse Oximeter] Respiratory Rate Blood Pressure [Ri ght Upper Arm] Pulse Oximetry 90 Oxygen Delivery Me thod Nasal Cannula Oxygen Flow Rate 2 Course Course ED Course: Upon arrival patient was placed on 4 L OxyMask. She received a DuoNeb and oral prednisone. Oxygen was slowly weaned to her baseline of 2 L nasal cannula. EKG, read by me, shows normal sinus rhythm with a pulse of 96. CBC does show a slightly elevated white cell count 12.5, hemoglobin 11.3. This is a 1 point drop in hemoglobin from 2 weeks ago. Normal lactate. Negative triple swab. Chemistries show a slightly elevated potassium. CRP is elevated at 6.4. Chest x-ray is concerning for infection. With an elevated white cell count and CRP, I do think that putting the patient on antibiotics is appropriate. Patient will be placed on Augmentin and doxycycline. Patient states that she has been on these antibiotics in the past and did well on them. Patient felt significantly better after treatment. She was sitting up in bed back on her baseline oxygen, watching a movie on her phone. Vital Signs Vital signs: Initial Vital Signs Temperature 99.1 F 05/24/24 21:06 Temperature Source Temporal Artery Scan 05/24/24 21:06 Pulse Rate 99 05/24/24 21:06 Respiratory Rate 20 05/24/24 21:06 Blood Pressure 143/83 H 05/24/24 21:06 Blood Pressure Mean 103 05/24/24 21:06 Blood Pressure Position Sitting 05/24/24 21:06 Pulse Oximetry 93 05/24/24 21:06 Oxygen Delivery Method Room Air 05/24/24 21:06 Vital Signs Temperature 99.1 F 05/24/24 21:06 Pulse Rate 99 05/24/24 21:06 Respiratory Rate 20 05/24/24 21:06 Blood Pressure 143/83 H 05/24/24 21:06 Pulse Oximetry 93 05/24/24 21:06 Oxygen Delivery Method Room Air 05/24/24 21:06 Temperature 99.1 F 05/24/24 21:06 Pulse Rate 102 H 05/24/24 23:45 Respiratory Rate 20 05/24/24 22:30 Blood Pressure 143/83 H 05/24/24 21:06 Pulse Oximetry 90 05/24/24 23:45 Oxygen Delivery Method Nasal Cannula 05/24/24 23:45 Oxygen Flow Rate 2 05/24/24 23:45 Medications Administered Medications: Generic Name Dose Route Start Last Admin Trade Name Freq PRN Reason Stop Dose Admin Albuterol/Ipratropium 1 neb 05/24/24 21:30 05/24/24 22:12 Iprat-Albut 0.5-2.5 Mg/3 Ml Neb IH 05/24/24 21:31 1 neb ONCE ONE Administration Prednisone 50 mg 05/24/24 21:30 05/24/24 22:12 Prednisone 10 Mg Tablet PO 05/24/24 21:31 50 mg ONCE ONE Administration Medical Decision Making MDM Narrative Medical decision making narrative: 48-year-old female with acute shortness of breath and exam/laboratory workup concerning for pneumonia. Patient will be treated with Augmentin and doxycycline. Lab Data Lab results reviewed: Yes I reviewed the patient's lab results Labs: Lab Results 05/24/24 Range/Units 21:55 WBC 12.50 H (4.50-11.00) K/uL RBC 3.76 L (4.00-5.20) m/uL Hgb 11.3 L (12.0-16.0) gm/dL Hct 35.3 (33.0-51.0) % MCV 94 (80-100) fL MCH 30 (26-34) pg MCHC 32 (32-36) gm/dL RDW Coeff of Tomy 13.4 (11.5-15.5) % Plt Count 221 (140-440) K/uL Neut % (Auto) 80.3 H (42.0-72.0) % Lymph % (Auto) 11.8 L (20-44) % Potter % (Auto) 5.6 (0.0-11.0) % Eos % (Auto) 1.4 (0.0-7.0) % Baso % (Auto) 0.4 (0.0-3.0) % Neut # (Auto) 10.00 H (1.7-7.0) K/uL Lymph # (Auto) 1.50 (0.90-2.90) K/uL Potter # (Auto) 0.70 (0.00-0.90) K/UL Eos # (Auto) 0.20 (0.00-0.50) K/uL Baso # (Auto) 0.10 (0.00-0.30) K/uL Abs Immat Gran (auto) 0.10 (0.00-0.30) K/uL Imm/Tot Granulo (auto) 0.5 % Sodium 137 (135-149) mmol/L Potassium 5.3 H (3.6-5.1) mmol/L Chloride 98 (96-114) mmol/L Carbon Dioxide 37 H (20-32) mmol/L Anion Gap 2 L (7-15) mEq/L BUN 14 (5-24) mg/dL Creatinine 0.6 (0.5-1.5) mg/dL Estimated GFR 112 ml/min Glucose 118 H (60-115) mg/dL Lactate 0.6 (0.5-1.9) mmol/L Calcium 9.0 (8.4-10.6) mg/dL Magnesium 2.1 (1.5-2.6) mg/dL Troponin I 0.02 (0.01-0.04) ng/mL C-Reactive Protein 6.4 H (0.5-1.0) mg/dL NT-Pro-B Natriuret Pep 622 pg/mL SARS-CoV-2 (PCR) Negative SARS-CoV-2 (Negative) Influenza Type A (PCR) Negative PCR FLU A (Negative) Influenza Type B (PCR) Negative PCR FLU B (Negative) RSV (PCR) Negative PCR RSV (Negative) Imaging Data Chest x-ray: Attestation: I have reviewed the pertinent imaging results. Radiologist's impression: TECHNIQUE: Chest 2 views. COMPARISON: 03/20/2024. FINDINGS: Cardiovascular and mediastinum: Mild cardiomegaly, unchanged. Enlarged main pulmonary artery, compatible with pulmonary arterial hypertension. Lungs and pleural spaces: Diffuse increased interstitial lung markings. No focal consolidation, pleural effusion, or pneumothorax. Bones and soft tissues: Unremarkable for age. IMPRESSION: There is increased interstitial lung markings, compatible with pulmonary edema or diffuse infection. Discharge Plan Discharge Clinical Impression: Pneumonia Patient Disposition: Home, Self-Care Condition: Stable Instructions: Community Acquired Pneumonia (DC) Additional Instructions: Take all antibiotics as prescribed. Return to the ER for increased difficulty breathing. Prescriptions: New amoxicillin-pot clavulanate 875-125 mg tablet 1 tab PO BID 7 Days Qty: 14 0RF doxycycline hyclate 100 mg capsule 100 mg PO BID 7 Days Qty: 14 0RF amoxicillin-pot clavulanate 875-125 mg tablet 1 tab PO BID 6 Days Qty: 12 0RF doxycycline hyclate 100 mg capsule 100 mg PO BID 6 Days Qty: 12 0RF No Action levetiracetam [Keppra] 750 mg tablet 750 mg PO BID potassium chloride 10 mEq tablet extended release 20 meq PO DAILY Rx Instructions: take 2 tablets daily levothyroxine 100 mcg tablet 100 mcg PO DAILY diphenhydramine HCl [Banophen] 25 mg capsule 25 - 50 mg PO Q8H PRN Rx Instructions: allergies ibuprofen 200 mg capsule 200 - 400 mg PO Q4-6H PRN acetaminophen [Aminofen] 325 mg tablet 325 - 650 mg PO Q4-6H PRN magnesium hydroxide [Milk of [employer]] 400 mg/5 mL suspension 15 - 30 ml PO DAILY PRN terbinafine HCl 1 % cream topical Q12H alum-mag hydroxide-simeth [Maalox Advanced] 200-200-20 mg/5 mL suspension 5 - 10 ml PO 5XD PRN Rx Instructions: administer between meals and at bedtime loperamide [Anti-Diarrheal (loperamide)] 2 mg tablet 1 mg PO Q6H PRN dextromethorphan HBr 10 mg/5 mL syrup 5 - 10 mg PO Q4-6H PRN Zepbound 2.5 mg/0.5 mL pen injector 2.5 mg subcut QWEEK Rx Instructions: for 4 weeks montelukast 10 mg tablet 10 mg PO HS mirabegron [Myrbetriq] 50 mg tablet extended release 24 hr 50 mg PO DAILY Patient Comments: albuterol sulfate 90 mcg/actuation HFA aerosol inhaler 1 - 2 puff INHALATION Q4H PRN cholecalciferol (vitamin D3) 50 mcg (2,000 unit) capsule 50 mcg PO DAILY paroxetine HCl 40 mg tablet 40 mg PO DAILY Patient Comments: furosemide 40 mg Tablet 40 mg PO DAILY Qty: 30 0RF albuterol sulfate 2.5 mg /3 mL (0.083 %) solution for nebulization 2.5 mg inhalation Q8H PRNQty: 1 0RF budesonide-formoterol [Symbicort] 160-4.5 mcg/actuation HFA aerosol inhaler 2 puff INHALATION BID Qty: 1 0RF Spiriva Respimat 2.5 mcg/actuation mist 2 puff inhalation DAILY Qty: 1 0RF prednisone 20 mg tablet 20 mg PO BID Qty: 10 0RF doxycycline hyclate 100 mg capsule 100 mg PO BID Qty: 14 0RF omeprazole 20 mg capsule,delayed release(DR/EC) 40 mg PO DAILY Follow Up/Referrals: Geronimo Lamb MD [Primary Care Provider] - Stand Alone Forms: [facility] [facility] Info Instructions
[2024-05-24 22:53] LABS: NT Pro B Type NatriureticPept* 622 pg/mL
[2024-05-25] VITALS: PULSE 102; O2SAT 91
[2024-05-25 00:15] VITALS: PULSE 103; O2SAT 90
[2024-05-25] MEDS: DOXYCYCLINE HYCLATE 100 MG PO (00:18)
[2024-05-25] MEDS: AMOXICILLIN/CLAVULANATE 875 mg/125 mg TABLET PO (00:18)
[2024-05-25 00:30] VITALS: PULSE 104; O2SAT 89
[2024-05-25 00:45] VITALS: PULSE 100; O2SAT 91
== END 2024-05-25 00:54 | disposition home or self-care (01) ==
PROVIDERS: Emergency Provider Family Medicine; PCP Family Medicine
DX: J18.9 Pneumonia, unspecified organism (principal)
CPT/HCPCS: 36415; 71046; 80048; 83605; 83735; 83880; 84484; 85025; 86140; 87631; 93005; 94761; 99284; 99285; A9270; J7512

== ENCOUNTER 2024-05-25 00:50 | Outpatient (CLI) | payer MEDICARE, SELFPAY | END 2024-05-25 00:51 | disposition home or self-care (01) | LOC: AMB 05-29 07:01 | PROVIDERS: PCP Family Medicine; Visit Provider Family Medicine | DX: J18.9 Pneumonia, unspecified organism (principal) | CPT/HCPCS: A0425; A0428 ==

== ENCOUNTER 2024-06-16 21:21 | Outpatient (CLI) | payer MEDICARE, SELFPAY | END 2024-06-16 21:22 | disposition home or self-care (01) | LOC: AMB 06-27 00:03 | PROVIDERS: PCP Family Medicine; Visit Provider Student in an Organized Health Care Education/Training Program | DX: R53.1 Weakness (principal) | CPT/HCPCS: A0425; A0427 ==

== ENCOUNTER 2024-06-16 21:49 | Emergency (ER) | payer MEDICARE, SELFPAY ==
[2024-06-16 21:57] VITALS: BP 125/88; PULSE 96; RESP 18; TEMP 37.1; O2SAT 95
--- NOTE | 2024-06-16 22:54 | CRLHL7_ITS ---
For Patients: As a result of the Century Cures Act, medical imaging exams and procedure reports are released immediately into your electronic medical record. You may view this report before your referring provider. If you have questions, please contact your health care provider. INDICATION: Concern for pneumonia. Weakness, cough. TECHNIQUE: CT chest without contrast. COMPARISON: March 06, 2023. FINDINGS: Lungs and pleura: Mosaic attenuation throughout the lungs. Some additional right basilar tree-in-bud nodularity. No focal consolidations. No pleural effusions, pleural thickening, or pneumothorax. Heart and vasculature: Heart size is normal. Thoracic aorta and pulmonary artery are normal in caliber. Lymph nodes/mediastinum: No mediastinal, hilar, or axillary adenopathy. Chest wall: No masses. Upper abdomen: Cholelithiasis without acute cholecystitis. No significant findings. Bones: Unremarkable for age. IMPRESSION: Mosaic attenuation throughout the lungs, likely related to small vessel/airway disease, including bronchitis. Some additional right basilar tree-in-bud nodularity, likely infectious/inflammatory in etiology. No large focal consolidations. Please note that all CT scans at this facility use dose modulation, iterative reconstruction, and/or weight-based dosing when appropriate to reduce radiation dose to as low as reasonably achievable. Dictated by Garrick Adkins MD @ 06/17/2024 12:19:31 AM (Electronically Signed)
--- NOTE | 2024-06-16 22:55 | CRLHL7_ITS ---
For Patients: As a result of the Century Cures Act, medical imaging exams and procedure reports are released immediately into your electronic medical record. You may view this report before your referring provider. If you have questions, please contact your health care provider. INDICATION: Confusion. TECHNIQUE: CT head without contrast. COMPARISON: Head CT 01/15/2023. FINDINGS: Brain parenchyma, CSF spaces, and extra-axial spaces: The hodge-white differentiation is normal. No sign of mass, hemorrhage, or midline shift. No hydrocephalus. No extra-axial fluid collection. Skull base and calvarium: The visualized paranasal sinuses demonstrate no acute or significant findings. Prior right mastoidectomy. Unremarkable left mastoid air cells. The visualized orbits are grossly unremarkable. No skull fracture. IMPRESSION: No evidence of an acute intracranial abnormality. Please note that all CT scans at this facility use dose modulation, iterative reconstruction, and/or weight-based dosing when appropriate to reduce radiation dose to as low as reasonably achievable. Dictated by Fercho Head MD @ 06/17/2024 12:15:15 AM (Electronically Signed)
--- NOTE | 2024-06-16 23:31 | ED.WEAKNESS ---
HPI - Weakness General Date Seen: 06/16/24 Chief complaint: Weakness Stated complaint: weakness Time Seen by Provider: 06/16/24 21:50 Source: patient and old records reviewed Mode of arrival: EMS Limitations: no limitations History of Present Illness HPI Narrative: Patient is a 48-year-old female presenting to the emergency department via EMS for weakness. She states a few weeks ago she was diagnosed with pneumonia and sent home on antibiotics. She was sent home with Augmentin and doxycycline. States starting 4 days ago she began to have some chest tightness, cough, worsening shortness of breath. States she has symptoms felt similar to her previous pneumonia so she was sent to urgent care. At urgent care she was diagnosed with pneumonia getting started on cefpodoxime and azithromycin. She was also diagnosed with an asthma exacerbation and given dual nebs. She has been sent home and she does not feel like she is getting any better. States she has been feeling weak and had to lower herself slowly to the ground. Denies hitting her head. Tested negative for COVID/flu/RSV yesterday. Does wear 2 L of nasal cannula at baseline. States she was feeling slightly confused today and states she rested her eyes and when she woke up she was not sure were she was. She is no longer feeling confused at this time. Has not had any fevers or chills. Denies abdominal pain, diarrhea, constipation, headache, vision fevers, numbness, lightheadedness, dizziness. No other concerns noted. She lives at [facility]. Related Data Home Medications ?Medication ?Instructions ?Recorded ?Confirmed albuterol sulfate 90 mcg/actuation 1 - 2 puff inhalation Q4H PRN 11/30/21 06/14/24 aerosol inhaler mirabegron 50 mg tablet,extended 50 mg PO DAILY 11/30/21 06/16/24 release 24 hr (Myrbetriq) montelukast 10 mg tablet 10 mg PO HS 11/30/21 06/16/24 omeprazole 20 mg capsule,delayed 40 mg PO DAILY 02/26/22 06/16/24 release levetiracetam 750 mg tablet 750 mg PO BID 11/25/22 06/16/24 (Keppra) cholecalciferol (vitamin D3) 50 50 mcg PO DAILY 01/30/23 06/16/24 mcg (2,000 unit) capsule paroxetine HCl 40 mg tablet 40 mg PO DAILY 01/30/23 06/16/24 levothyroxine 100 mcg tablet 100 mcg PO DAILY 10/16/23 06/16/24 potassium chloride 10 mEq 20 meq PO DAILY 10/16/23 06/16/24 tablet,extended release aluminum-mag hydroxide-simethicone 5 - 10 ml PO 5XD PRN 03/20/24 06/14/24 200 mg-200 mg-20 mg/5 mL oral susp (Maalox Advanced) dextromethorphan HBr 10 mg/5 mL 5 - 10 mg PO Q4-6H PRN 03/20/24 06/14/24 oral syrup diphenhydramine HCl 25 mg capsule 25 - 50 mg PO Q8H PRN 03/20/24 06/16/24 (Banophen) ibuprofen 200 mg capsule 200 - 400 mg PO Q4-6H PRN 03/20/24 06/16/24 loperamide 2 mg tablet 1 mg PO Q6H PRN 03/20/24 06/14/24 (Anti-Diarrheal (loperamide)) magnesium hydroxide 400 mg/5 mL 15 - 30 ml PO DAILY PRN 03/20/24 06/14/24 oral suspension (Milk of MagnTake the Interview) terbinafine HCl 1 % topical cream applic topical Q12H 03/20/24 06/14/24 Previous Rx's ?Medication ?Instructions ?Recorded albuterol sulfate 2.5 mg/3 mL 2.5 mg (3 mL) inhalation Q8H PRN 02/02/23 (0.083 %) solution for nebulization #1 mL budesonide-formoterol HFA 160 2 puff inhalation BID #1 g 02/02/23 mcg-4.5 mcg/actuation aerosol inhaler (Symbicort) furosemide 40 mg tablet 40 mg PO DAILY #30 tabs 02/02/23 tiotropium bromide 2.5 2 puff inhalation DAILY #1 g 02/02/23 mcg/actuation mist for inhalation (Spiriva Respimat) azithromycin 250 mg tablet See Rx Instructions PO .COMPLEX #6 06/14/24 tabs cefpodoxime 200 mg tablet 200 mg PO BID 10 days #20 tabs 06/14/24 Allergies Allergy/AdvReac Type Severity Reaction Status Date / Time azithromycin Allergy Intermediate Bloody Verified 06/16/24 22:03 Stools latex Allergy Intermediate Rash Verified 06/16/24 22:03 oxycodone Allergy Intermediate Agitated Verified 06/16/24 22:03 scopolamine Allergy Intermediate Tremors Verified 06/16/24 22:03 acetaminophen (From Percocet) Allergy Mild Verified 06/16/24 22:03 basil Allergy Rash Verified 06/16/24 22:03 Review of Systems Status of ROS: Reports: 10 or more systems reviewed and unremarkable except as noted in History and below [facility] Medical History Hypothyroidism ?E03.9 - Hypothyroidism, unspecified (ICD-10) Acute and chronic respiratory failure with hypoxia ?J96.21 - Acute and chronic respiratory failure with hypoxia (ICD-10) 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 - Unspecified convulsions (ICD-10) RODRICK (obstructive sleep apnea) ?G47.33 - Obstructive sleep apnea (adult) (pediatric) (ICD-10) ADHD ?F90.9 - Attention-deficit hyperactivity disorder, unspecified type (ICD-10) Hyperthyroidism ?E05.90 - Thyrotoxicosis, unspecified without thyrotoxic crisis or storm (ICD-10) Hydrocephalus ?G91.9 - Hydrocephalus, unspecified (ICD-10) Hyperlipidemia ?E78.5 - Hyperlipidemia, unspecified (ICD-10) Anxiety and depression ?F41.9 - Anxiety disorder, unspecified (ICD-10) ?F32.A - Depression, unspecified (ICD-10) Asthma ?J45.909 - Unspecified asthma, uncomplicated (ICD-10) Surgical History History of ear surgery ?Z98.890 - Other specified postprocedural states (ICD-10) History of strabismus surgery ?Z98.890 - Other specified postprocedural states (ICD-10) Social History Narrative: on disability since 2009; lives alone with her cat. nonsmoker, no drugs, no significant tobacco history adopted, her two adopted aunts are her family contacts. What is your current living situation?: I presently have a place to live Problems where you live: no known problems Problems where you live details: None In the past 12 months, utilities in danger of being shut off: no In past 12 months, lack of transportation kept you from medical appts, meetings, work, or getting things needed for daily living: no In the past 12 mos, have been you worried that your food would run out before you had money to buy more?: never true In the past 12 mos, the food you bought just didn't last and you didn't have money to buy more?: never true Highest level of school completed/degree received: Associate degree: academic program Smoking Status: Former smoker What tobacco products do you use: cigarettes Smoking quit date/years: <= 15 years ago Do you use any of these nicotine containing products: None Second hand tobacco smoke exposure: Yes How often do you have a drink containing alcohol: never How often do you have six or more drinks on one occasion: Never AUDIT-C Alcohol total score: 0 Non-prescribed substance use: denies use Caffeine: Yes (Pop ocassionally) How often does anyone, including family, friends and others, physically hurt you: never How often does anyone, including family, friends and others, insult or talk down to you: never How often does anyone, including family, friends and others, threaten you with harm: never How often does anyone, including family, friends and others, scream or curse at you: never service: No Exam Narrative: Exam Narrative: Const: Well-nourished, Well-developed, in no distress Eyes: PERRL, no conjunctival injection, and symmetrical lids HENT: Atraumatic external nose and ears. Moist mucous membranes. Neck: Symmetric, trachea midline, No thyromegaly. CVS: RRR, No murmurs or gallops. Peripheral pulses 2+ and equal in all extremities RESP: Unlabored respiratory effort. Clear to auscultation bilaterally. GI: Nontender/Nondistended, No rebound or guarding. MSK:Extremities w/o deformity, Normal Active ROM Skin: Warm, Dry. No rashes or lesions. Neuro: Normal Muscle tone, No focal neurological deficits. Psych: Awake, Alert, & Oriented x3. Appropriate mood and affect. Const: Vital Signs, click to edit/add: Vital Signs - 24 hr 06/16/24 21:57 06/17/24 00:44 06/17/24 00:47 Temperature 98.7 F Pulse Rate [Pulse Oximeter] 96 95 156 H Respiratory Rate 18 20 36 H Blood Pressure [Ri ght Upper Arm] 125/88 116/63 Pulse Oximetry 95 92 Oxygen Delivery Me thod Room Air Nasal Cannula Room Air Oxygen Flow Rate 2 Course Vital Signs Vital signs: Initial Vital Signs Temperature 98.7 F 06/16/24 21:57 Temperature Source Temporal Artery Scan 06/16/24 21:57 Pulse Rate 96 06/16/24 21:57 Respiratory Rate 18 06/16/24 21:57 Blood Pressure 125/88 06/16/24 21:57 Blood Pressure Mean 100 06/16/24 21:57 Blood Pressure Position Sitting 06/16/24 21:57 Pulse Oximetry 95 06/16/24 21:57 Oxygen Delivery Method Room Air 06/16/24 21:57 Vital Signs Temperature 98.7 F 06/16/24 21:57 Pulse Rate 96 06/16/24 21:57 Respiratory Rate 18 06/16/24 21:57 Blood Pressure 125/88 06/16/24 21:57 Pulse Oximetry 95 06/16/24 21:57 Oxygen Delivery Method Room Air 06/16/24 21:57 Temperature 98.7 F 06/16/24 21:57 Pulse Rate 156 H 06/17/24 00:47 Respiratory Rate 36 H 06/17/24 00:47 Blood Pressure 116/63 06/17/24 00:44 Pulse Oximetry 92 06/17/24 00:44 Oxygen Delivery Method Room Air 06/17/24 00:47 Oxygen Flow Rate 2 06/17/24 00:44 Medications Administered Medications: Generic Name Dose Route Start Last Admin Trade Name Freq PRN Reason Stop Dose Admin Albuterol/Ipratropium 1 neb 06/17/24 00:03 06/17/24 00:17 Iprat-Albut 0.5-2.5 Mg/3 Ml Neb IH 06/17/24 00:04 1 neb ONCE ONE Administration MDM - Weakness MDM Narrative Medical decision making narrative: Patient is a 48-year-old female presenting for weakness. The differential diagnosis of generalized weakness is broad and includes infection, electrolyte abnormalities, ACS, arrhythmia, hypoglycemia, electrolyte abnormality, respiratory failure, anemia, hypothyroidism, dehydration, medication induced etc. considering her concern for pneumonia I will do a CT scan of her chest to better evaluate it. She had some earlier confusion based on her report that has since resolved. Either way with her weakness I will do CT scan of her head. Will order EKG and troponin to look for any cardiac issues. Will also order CBC, BMP, COVID/flu/RSV. While she was here she did start to feel wheezy in asked for a breathing treatment. That was provided. She felt better after. Lab work shows no concerning abnormalities. Viral swabs within normal limits. EKG shows no concerning findings. Troponin within normal limits. Considering like the symptoms I do not believe repeat troponin is necessary at this time. CT scans reviewed by myself and the radiologist shows no concerning findings. The CT chest shows likely small-vessel/airway disease such as bronchitis. This also some right basilar strain but nodule laterally to could be infectious versus inflammatory but no large focal consolidations. At this time I do believe she is safe for discharge and she is already on antibiotics which informed her to continue. She states she understands. She is agreeable to this plan. Lab Data Labs: Lab Results 06/16/24 Range/Units 23:55 WBC 9.50 (4.50-11.00) K/uL RBC 3.93 L (4.00-5.20) m/uL Hgb 11.3 L (12.0-16.0) gm/dL Hct 36.9 (33.0-51.0) % MCV 94 (80-100) fL MCH 29 (26-34) pg MCHC 31 L (32-36) gm/dL RDW Coeff of Tomy 13.2 (11.5-15.5) % Plt Count 199 (140-440) K/uL Neut % (Auto) 75.3 H (42.0-72.0) % Lymph % (Auto) 15.5 L (20-44) % Dodge % (Auto) 5.7 (0.0-11.0) % Eos % (Auto) 2.6 (0.0-7.0) % Baso % (Auto) 0.5 (0.0-3.0) % Neut # (Auto) 7.20 H (1.7-7.0) K/uL Lymph # (Auto) 1.50 (0.90-2.90) K/uL Dodge # (Auto) 0.50 (0.00-0.90) K/UL Eos # (Auto) 0.25 (0.00-0.50) K/uL Baso # (Auto) 0.05 (0.00-0.30) K/uL Abs Immat Gran (auto) 0.04 (0.00-0.30) K/uL Imm/Tot Granulo (auto) 0.4 % Sodium 139 (135-149) mmol/L Potassium 3.8 (3.6-5.1) mmol/L Chloride 99 (96-114) mmol/L Carbon Dioxide 36 H (20-32) mmol/L Anion Gap 4 L (7-15) mEq/L BUN 13 (5-24) mg/dL Creatinine 0.7 (0.5-1.5) mg/dL Estimated GFR 108 ml/min Glucose 134 H (60-115) mg/dL Calcium 8.9 (8.4-10.6) mg/dL Troponin I < 0.01 L (0.01-0.04) ng/mL SARS-CoV-2 (PCR) Negative SARS-CoV-2 (Negative) Influenza Type A (PCR) Negative PCR FLU A (Negative) Influenza Type B (PCR) Negative PCR FLU B (Negative) RSV (PCR) Negative PCR RSV (Negative) Imaging Data CT scan - head: Attestation: I have reviewed the pertinent imaging results. Radiologist's impression: No evidence of an acute intracranial abnormality. Please note that all CT scans at this facility use dose modulation, iterative reconstruction, and/or weight-based dosing when appropriate to reduce radiation dose to as low as reasonably achievable. Dictated by Fercho Head MD @ 06/17/2024 12:15:[address] scan - chest: Attestation: I have reviewed the pertinent imaging results. Radiologist's impression: Mosaic attenuation throughout the lungs, likely related to small vessel/airway disease, including bronchitis. Some additional right basilar tree-in-bud nodularity, likely infectious/inflammatory in etiology. No large focal consolidations. Please note that all CT scans at this facility use dose modulation, iterative reconstruction, and/or weight-based dosing when appropriate to reduce radiation dose to as low as reasonably achievable. Dictated by Garrick Adkins MD @ 06/17/2024 12:19:31 AM ECG Data Attestation: I personally reviewed and interpreted this ECG as follows: Prior ECG tracings: available for review Interpretation: Normal sinus rhythm with rate of 90 beats per minute, normal intervals, normal axis, no ST or T-wave abnormalities. Appears similar previous EKG on file Discharge Plan Discharge Clinical Impression: Bronchitis Patient Disposition: Home, Self-Care Condition: Stable Instructions: Acute Bronchitis (ED) Additional Instructions: Continue to take her previously prescribed antibiotics. Return to emergency department for new or worsening symptoms. If symptoms persist follow-up with your primary care provider. Prescriptions: No Action cefpodoxime 200 mg tablet 200 mg PO BID 10 Days Qty: 20 0RF Rx Instructions: Do 5 days of treatment to begin; if symptoms persist, complete remainder of course. azithromycin 250 mg tablet See Rx Instructions PO .COMPLEX Qty: 6 0RF Rx Instructions: For 250 mg dose pack: take 500 mg today (day 1), then 250 mg for 4 days (days 2-5) PO levetiracetam [Keppra] 750 mg tablet 750 mg PO BID potassium chloride 10 mEq tablet extended release 20 meq PO DAILY Rx Instructions: take 2 tablets daily levothyroxine 100 mcg tablet 100 mcg PO DAILY diphenhydramine HCl [Banophen] 25 mg capsule 25 - 50 mg PO Q8H PRN Rx Instructions: allergies ibuprofen 200 mg capsule 200 - 400 mg PO Q4-6H PRN magnesium hydroxide [Milk of Magnesia] 400 mg/5 mL suspension 15 - 30 ml PO DAILY PRN terbinafine HCl 1 % cream topical Q12H alum-mag hydroxide-simeth [Maalox Advanced] 200-200-20 mg/5 mL suspension 5 - 10 ml PO 5XD PRN Rx Instructions: administer between meals and at bedtime loperamide [Anti-Diarrheal (loperamide)] 2 mg tablet 1 mg PO Q6H PRN dextromethorphan HBr 10 mg/5 mL syrup 5 - 10 mg PO Q4-6H PRN montelukast 10 mg tablet 10 mg PO HS mirabegron [Myrbetriq] 50 mg tablet extended release 24 hr 50 mg PO DAILY Patient Comments: albuterol sulfate 90 mcg/actuation HFA aerosol inhaler 1 - 2 puff INHALATION Q4H PRN cholecalciferol (vitamin D3) 50 mcg (2,000 unit) capsule 50 mcg PO DAILY paroxetine HCl 40 mg tablet 40 mg PO DAILY Patient Comments: furosemide 40 mg Tablet 40 mg PO DAILY Qty: 30 0RF albuterol sulfate 2.5 mg /3 mL (0.083 %) solution for nebulization 2.5 mg inhalation Q8H PRNQty: 1 0RF budesonide-formoterol [Symbicort] 160-4.5 mcg/actuation HFA aerosol inhaler 2 puff INHALATION BID Qty: 1 0RF Spiriva Respimat 2.5 mcg/actuation mist 2 puff inhalation DAILY Qty: 1 0RF omeprazole 20 mg capsule,delayed release(DR/EC) 40 mg PO DAILY Follow Up/Referrals: Geronimo Lamb MD [Primary Care Provider] - Stand Alone Forms: [employer] Info Instructions
[2024-06-16 23:59] LABS: Basophils Absolute Auto 0.05 K/uL (0.00-0.30); Basophils Percent Auto 0.5 % (0.0-3.0); Eosinophils Absolute Auto 0.25 K/uL (0.00-0.50); Eosinophils Percent Auto 2.6 % (0.0-7.0); Hematocrit 36.9 % (33.0-51.0); Hemoglobin* 11.3 gm/dL (12.0-16.0); Immature Granulocytes Abs Auto 0.04 K/uL (0.00-0.30); Immature Granulocytes Pct Auto 0.4 %; Lymphocytes Percent Auto 15.5 % (20-44); Mean Corpuscular HGB Conc 31 gm/dL (32-36); Mean Corpuscular Hemoglobin 29 pg (26-34); Mean Corpuscular Volume 94 fL (80-100); Monocytes Percent Auto 5.7 % (0.0-11.0); Neutrophils Percent Auto 75.3 % (42.0-72.0); Platelet Count* 199 K/uL (140-440); RDW Coefficient of Variation % 13.2 % (11.5-15.5); Red Blood Count 3.93 m/uL (4.00-5.20)
[2024-06-17 00:03] LABS: Slide Review Reflex No
[2024-06-17] MEDS: IPRAT-ALBUT 0.5-2.5 MG/3 ML NEB 1 NEB IH (00:17)
[2024-06-17 00:33] LABS: Troponin I* < 0.01 ng/mL (0.01-0.04)
[2024-06-17 00:36] LABS: PCR FLU A Negative PCR FLU A (Negative); PCR FLU B Negative PCR FLU B (Negative); PCR RSV Negative PCR RSV (Negative); SARS PCR* Negative SARS-CoV-2 (Negative)
[2024-06-17 00:44] VITALS: BP 116/63; PULSE 95; RESP 20; O2SAT 92
[2024-06-17 00:45] LABS: Anion Gap 4 mEq/L (7-15); Blood Urea Nitrogen* 13 mg/dL (5-24); Calcium* 8.9 mg/dL (8.4-10.6); Carbon Dioxide* 36 mmol/L (20-32); Chloride* 99 mmol/L (96-114); Creatinine* 0.7 mg/dL (0.5-1.5); Estimated Glomerular Filt Rate 108 ml/min; Potassium* 3.8 mmol/L (3.6-5.1); Sodium* 139 mmol/L (135-149)
[2024-06-17 00:46] LABS: Glucose* 134 mg/dL (60-115)
[2024-06-17 00:47] VITALS: PULSE 156; RESP 36
== END 2024-06-17 01:51 | disposition home or self-care (01) ==
PROVIDERS: Emergency Provider Student in an Organized Health Care Education/Training Program; PCP Family Medicine
DX: J20.9 Acute bronchitis, unspecified (principal)
CPT/HCPCS: 36415; 70450; 71250; 80048; 84484; 85025; 87631; 93005; 99284; 99285

== ENCOUNTER 2024-06-17 01:44 | Outpatient (CLI) | payer MEDICARE, SELFPAY | END 2024-06-17 01:45 | disposition home or self-care (01) | LOC: AMB 07-01 03:38 | PROVIDERS: PCP Family Medicine; Visit Provider Emergency Medicine | DX: J40 Bronchitis, not specified as acute or chronic (principal) | CPT/HCPCS: A0425; A0428 ==

== ENCOUNTER 2024-07-04 08:49 | Outpatient (CLI) | payer MEDICARE, SELFPAY | END 2024-07-04 08:50 | disposition home or self-care (01) | LOC: AMB 07-07 18:32 | PROVIDERS: PCP Family Medicine; Visit Provider Emergency Medicine Emergency Medical Services | DX: R20.0 Anesthesia of skin (principal); R20.2 Paresthesia of skin; R53.1 Weakness | CPT/HCPCS: A0425; A0427 ==

== ENCOUNTER 2024-07-04 09:21 | Emergency (ER) | payer OTHER, SELFPAY ==
[2024-07-04] VITALS (18 sets, daily range): BP systolic 122–152; BP diastolic 87–110; PULSE 90–108; RESP 24; TEMP 36.6; O2SAT 87–94; BMI 53.2
--- OUTSIDE RECORDS SUMMARY | 2024-07-04 09:23 | XMS_ITS | CCD ---
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
--- OUTSIDE RECORDS SUMMARY | 2024-07-04 09:23 | XMS_ITS | Clinical Summary ---
Author Organization [facility] Address [place], [place] [address] Care Team Providers Care Senior Research Engineer Name Role Phone Paolo Limon MD Unavailable Talon Durham MD Unavailable [phone] Laura Gardner PsyD, Unavailable [phone] Geronimo Lamb MD Primary Care Provider Luis [...] Lethargic-- Memory loss--aggression Scopolamine Tremors 11/27/2012 Medications Symbicort 160-4.5 mcg/actuation (160-4.5 mcg each actuation) inhalerIndicatio ns:Severe persistent asthma, unspecified whether complicated Inhale 2 Puffs by mouth two times daily. 10.2 g 11 01/20/20 24 Active mirabegron EXTENDED-release (Myrbetriq) 50 mg tabletIndication s:Urge urinary incontinence Take 1 Tablet (50 mg) by mouth once daily. 90 Tablet 3 01/20/20 24 Active PARoxetine (PAXIL) 40 mg tabletIndication s:Anxiety and depression Take 1 Tablet (40 mg) by mouth once daily in the morning. 90 Tablet 3 01/20/20 24 Active Walker - 4 wheelsIndication s:Unstable gait With breaks and seat. For home use. Length of need: 99. 1 Each 01/20/20 24 Active oxygen-air delivery systems (HOME OXYGEN)Indicatio ns:RODRICK (obstructive sleep apnea) Oxygen for home use. Liters per minute: 1 per nasal cannula with rest/activity , 2 L bled into CPAP w/ sleep. Frequency of use: Continuous with portability.; . Length of need: 99 Months. 1 Each 02/09/20 24 Active CPAPIndications: RODRICK (obstructive sleep apnea) CPAP (E0601) machine for home use at pressure: 13 cm w/ 2 L oxygen bled in , Choice of mask (A7030 or A7034) w/full face cushion (A7031) x1/mo, nasal cushion (A7032) x2/mo, or nasal pillows (A7033) x 2/mo; Length of Need: 99 months; Frequency of use: Daily 1 Each 02/09/20 24 Active omeprazole (PRILOSEC) 20 mg Delayed-Release capsuleIndicatio ns:Chronic GERD Take 2 Capsules (40 mg) by mouth once daily before a meal. 180 Capsule 2 03/12/20 24 Active potassium chloride (Klor-Con 10) 10 mEq extended-release tabletIndication s:SOB (shortness of breath) Take 2 Tablets (20 mEq) by mouth once daily with a meal. 180 Tablet 2 03/12/20 24 Active albuterol HFA (PRO-AIR; VENTOLIN; PROVENTIL) 90 mcg/actuation inhalerIndicatio ns:Moderate persistent asthma, uncomplicated INHALE 1-2 PUFFS EVERY 4 HOURS NEEDED FOR SHORTNESS OF BREATH 1 Each 03/28/20 24 Active spiriva 18 mcg inhalation capsuleIndicatio ns:COPD, severe (HC) Inhale 1 Capsule (18 mcg) by mouth once daily. Using a SPRIVA HANDIHALER fischer the capsule, then by mouth breathe in the powder. Inhale twice from the same capsule for full dose. 90 Each 2 04/06/20 24 Active levETIRAcetam (KEPPRA) 750 mg tabletIndication s:Seizure (HC) Take 1 Tablet (750 mg) by mouth two times daily. 180 Tablet 1 04/12/20 24 Active levothyroxine (SYNTHROID) 100 mcg tabletIndication s:Hypothyroidism (acquired) TAKE 1 TABLET BY MOUTH DAILY BEFORE BREAKFAST 90 Tablet 1 04/26/20 24 Active oxygen-air delivery systems (HOME OXYGEN)Indicatio ns:Chronic respiratory failure with hypoxia (HC) Portable conserving device. Oxygen for home use. Liters per minute: 1 LPM per nasal cannula. Frequency of use: With activity. Length of need: 99 Months. 1 Each 05/06/20 24 Active mirtazapine (REMERON) 15 mg tablet Take 15 mg by mouth once daily. Active polyethylene glycoL (MIRALAX) 17 gram/scoop powderIndication s:Chronic constipation Mix 1 scoop (17 g) in liquid then take by mouth once daily if needed for Constipation. 510 g 3 05/14/20 24 Active Diaper,Brief, Adult,Disposable Indications:Urge urinary incontinence For home use. Extra-large pull-up brief. 150 Each 11 05/18/20 24 Active furosemide (LASIX) 20 mg tabletIndication s:Heart failure with preserved ejection fraction, unspecified HF chronicity (HC) One oral every am, one oral noon, Give additional 20 mg dose p.o. daily as needed for 3 pound weight gain in 1 day or increase in leg swelling. 180 Tablet 1 06/03/19 25 Active montelukast (SINGULAIR) 10 mg tabletIndication s:Allergy, sequela TAKE 1 TABLET BY MOUTH EVERY NIGHT AT BEDTIME 30 Tablet 06/30/19 25 Active guaiFENesin (Mucinex) 600 mg Extended-Release tabletIndication s:Chronic cough Take 1 Tablet (600 mg) by mouth 2 times daily if needed for Expectoration . 20 Tablet 06/29/19 25 Active albuterol 0.083% (2.5 mg/3 mL) neb solutionIndicati ons:Moderate persistent asthma, uncomplicated Inhale 3 mL (2.5 mg) via a nebulizer three times daily. 90 mL 10 06/29/19 25 Active montelukast (SINGULAIR) 10 mg tabletIndication s:Allergy, sequela TAKE 1 TABLET BY MOUTH EVERYDAY AT BEDTIME 90 Tablet 2 10/07/19 24 2024 Discontinued albuterol 0.083% (2.5 mg/3 mL) neb solutionIndicati ons:Moderate persistent asthma, uncomplicated *STORE UNUSED AMPULES IN FOIL POUCH* INHALE 1 AMPULE VIA NEBULIZER EVERY 4 HOURS NEEDED FOR SHORTNESS OF BREATH OR WHEEZING 90 mL 10 03/27/20 24 2024 Discontinued(* Medication adjustment) Active Problems Problem Noted Date Diagnosed Date Urinary incontinence 11/13/2023 Heart failure with preserved ejection fraction, unspecified HF chronicity 06/10/2023 Class 3 obesity with alveola r [...] 0.4, Reverse T3 9 (11-32 ng/dl) GERD (gastroesophageal reflux disease) 9 Anxiety and depression Resolved Problems Problem Noted Date Diagnosed Date Resolved Date Acute cholecystitis 05/09/2024 06/03/19 25 Hydrocephalus, unspecified type 05/05/2024 06/03/2024 Hypothyroidism (acquired) 09/01/2023 COPD, severe 06/10/2023 05/05/2024 Sensorineural hearing loss ( SNHL) of left [...] diarrhea 04/25/2009 04/23/2021 Mild Intermittent Asthma 02/23/200911/2011 Dizziness 06/03/2024 Overview (04/23/2021): Eval by [facility] neurology 2018. Thought to be functional. Referred to psychiatry. Encounters Date Type Department Care Team Description 06/29/2024 Telephone [facility] [address] [place] [address] Geronimo Lamb MD Medication Management 06/29/2024 Refill [facility] [address] [place] [address] Geronimo Lamb MD Refill Request (Montelukast) 06/16/2024 Orders Only [facility] Scanner 1 scan: (1-Ord) [place], CT CHEST WO CON, 06/16/2024 06/16/2024 Orders Only [facility] Scanner 1 scan: (1-Ord) [place], HEAD/BRAIN WO CON, 06/16/2024 06/11/2024 9:00 AM MAT MACHINE TENDER - 06/11/2024 11:59 PM MAT MACHINE TENDER Hospital Encounter [facility] [address] [place] [address] Luis Santos DO 06/04/2024 9:04 AM MAT MACHINE TENDER - 06/04/2024 11:59 PM MAT MACHINE TENDER Hospital Encounter [facility] [address] [place] [address] Luis Santos DO 06/03/2024 2:05 PM MAT MACHINE TENDER Office Visit [facility] [address] [place] [address] Geronimo Lamb MD ER Follow up (Lysite ER, 05/24/2024, pneumonia ) 06/03/2024 Travel 05/25/2024 Orders Only [facility] [address] [place] [address] Geronimo Lamb MD <No scans attached> 05/24/2024 Orders Only [facility] Scanner 1 scan: (1-Ord) [facility], XR CHEST 2V, 05/24/2024 05/17/2024 Refill [facility] [address] [place] [address] Geronimo Lamb MD Refill Request (Prevail XL [id number]) 05/14/2024 11:15 AM MAT MACHINE TENDER Office Visit [facility] [address] [place] [address] Fercho Salcedo MD Hospital F/U (ACUTE CHOLECYSTISIS- feeling better ) 05/14/2024 Refill [facility] [address] [place] [address] Geronimo Lamb MD Refill Request (Protective Underwear Ex-large) 05/14/2024 Travel 05/12/2024 2:00 PM MAT MACHINE TENDER Office Visit [facility] [address] [place] [address] Paolo Limon MD Sleep Follow-up 05/12/2024 Travel 05/12/2024 Patient Outreach [facility] [address] [place] [address] Alexandria Pulido, PEDRO Primary RN Care Management; Hospital F/U (LACE 43) 05/09/2024 9:50 PM MAT MACHINE TENDER - 05/11/2024 2:49 PM MAT MACHINE TENDER Hospital Encounter [address] [address] s, U Hospitalist Aron Jacob, DO Discharge Disposition: Home Self Care 05/09/2024 Orders Only [facility] Scanner 1 scan: (1-Ord) [facility], US GALLBLADDER, 05/09/2024 05/09/2024 Orders Only [facility] Scanner 1 scan: (1-Ord) [facility], ABDOMEN PELVIS W/CONTRAST, 05/09/2024 05/05/2024 3:20 PM MAT MACHINE TENDER Office Visit [facility] [address] [place] [address] Geronimo Lamb MD ER Follow up (Lysite ER, 04/21/2024, syncope ); DME Supply (Incontinence products - sent to [facility]/New portable oxygen - [employer]) 05/05/2024 Telephone [facility] [address] [place] [address] Geronimo Lamb MD Follow Up 05/05/2024 Travel 04/23/2024 Refill [facility] [address] [place] [address] Geronimo Lamb MD Refill Request (Levothyroxine) 04/21/2024 Telephone [facility] [address] [place] [address] Geronimo Lamb MD Prior Authorization (tirzepatide, weight loss, (Zepbound) 2.5 mg/0.5 mL pen - DENIED/EXCLUDED) 04/15/2024 Telephone [facility] [address] [place] [address] Geronimo Lamb MD DME Supply 04/08/2024 12:43 PM MAT MACHINE TENDER - 04/08/2024 11:59 PM MAT MACHINE TENDER Hospital Encounter [facility] [address] [place] [address] Luis Santos, Shazia Mckeon, DATA ANALYTICS ANALYST Wheezing 04/08/2024 Telephone [facility] [address] [place] [address] Shazia Li, DATA ANALYTICS ANALYST DATA ANALYTICS ANALYST (Request of orders) 04/08/2024 Travel 04/07/2024 Refill [facility] [place] [facility] [address] [place] [address] Dread Villavicencio MD Refill Request (Paroxetine, Myrbetriq, Levothyroxine, Levetiracetam) 04/05/2024 Telephone [facility] [address] [place] [address] Geronimo Lamb MD Medication Management (tiotropium (SPIRIVA HANDIHALER) 18 mcg inhalation capsule) from Last 3 Months Immunizations Name Administration Dates Next Due COVID-19 VACCINE SPIKEVAX (M ODERNA 50MCG/0.5ML) 12YO+ PFS 03/19/2023 COVID-19 vaccine (Pfizer-Bio NTech 30mcg/0.3mL) 12YO+ BIVALENT PF, MDV 05/01/2022 COVID-19 vaccine (Pfizer-Bio NTech 30mcg/0.3mL) 12YO+ VAL-SUCROSE PF, MDV 08/29/2021 INFLUENZA, IIV3 PF (AGE >= 6 MO) 03/02/2024 Influenza Virus, Unspecified 05/27/2014 Influenza, IIV3 (Age >=3 years) 05/24/20 14,06/09/2013,06/05/2012,2009 Influenza, IIV4 03/19/2023,,03/09/2018,2015,02/06/2015 Pneumococcal Conj 20-valent (Prevnar 20) 01/14/2023 Pneumococcal Poly,23-Valent (Pneumovax) 09/14/2013 Tdap 12/01/2023,10/29/2010 Family History * Patient is adopted Medical [...] lonely or isolated from those around you? 0 05/05/2024 Financial Resource Strain Answer Date R ecorded Difficulty of Paying Living Expenses 3 05/05/2024 Difficulty of Paying Living Expenses Not on file 05/05/2024 Food Insecurity Answer Date Recorded Do you worry your food will run out before you are able to buy more? 1 05/05/2024 Transportation Needs Answer Date Record ed Does lack of transportation keep you from medica l appointments? 1 05/05/2024 Does lack of transportation keep you from work, meetings or getting things that you need? 1 05/05/2024 Housing Stability Answer Date Recorded What is your housing situation today? 1 05/05/2024 Interpersonal Safety Answer Date Record ed Are you being hit, kicked, p ushed or yelled at (see row info)? No 05/11/2024 Interpersonal Safety Abuse - Not on file 05/11/2024 Interpersonal Safety Ambulatory Vulnerability No t on file 05/11/2024 Utilities Answer Date Recorded Do you have trouble paying f or utilities (for example, heat, electricity, water, phone)? 1 05/05/2024 Comments No Sex and Gender Information Value Date Recorded Sex Assigned at Not on file Legal Sex Female 6:31 AM MAT MACHINE TENDER Gender Identity Not on file Sexual Orientation Not on file Obstetrics History Last Filed Vital Signs Vital Sign Reading Time Taken Comments Blood Pressure 143/93 06/03/2024 1:59 PM MAT MACHINE TENDER Pulse 107 06/03/2024 1:59 PM MAT MACHINE TENDER Temperature 36.6 C (97.9 F) 05/11/2024 8:03 AM MAT MACHINE TENDER Respiratory Rate 18 05/11/2024 8:03 AM MAT MACHINE TENDER Oxygen Saturation 93% 06/03/2024 1:5 9 PM MAT MACHINE TENDER 2L via nasal cannula Inhaled Oxygen Concentration - - Weight 109.3 kg (241 lb) 06/03/2024 1:5 9 PM MAT MACHINE TENDER Height 142.2 cm (4' 8) 05/12/2024 2:07 PM MAT MACHINE TENDER Body Mass Index 54.03 05/12/2024 2:07 PM MAT MACHINE TENDER Plan of Treatment Upcoming Encounters Date Type Department Care Team (Late st Contact Info) Description 07/05/2024 2:30 PM MAT MACHINE TENDER Office Visit [facility] [address] [place] [address] Geronimo Lamb MD [address] [place] [address] 07/09/2024 9:00 AM MAT MACHINE TENDER Appointment [facility] [address] [place] [address] 07/20/2024 11:00 AM MAT MACHINE TENDER Office Visit [facility] [address] [place] [address] Heather Cruz PA [address] [facility] [place] [address] 07/23/2024 9:00 AM MAT MACHINE TENDER Appointment [facility] [address] [place] [address] 08/06/2024 9:15 AM CDT Appointment [place] [address] [place] [address] 08/19/2024 3:00 PM CDT Office Visit [facility] [address] [place] [address] Paolo Limon MD [address] [place] [address] 08/25/2024 10:00 AM CDT Office Visit [facility] [address] [place] [address] Paolo Limon MD [address] [place] [address] Health Maintenance Due Date Last Done Comments Pap test for age 21-65 04/16/2014 04/16/2011 (Declin ed) Colonoscopy through age 75 2022 Mammogram for age 45-75 2022 02/24/2019, 02/16 Depression screening for age 12+ 10/13/2024 10/14/2023, 10/14/2023, 10/14/2023, Additional history exists BMI (ht and wt on same day) for age 18+ 05/12/2025 05/12/2024, 01/22/2024, 07/24/2023, Additional history exists Lipids for age 45-75 01/19/2029 01/20/2024, 03/19/2023, 08/29/2021, Additional history exists Tetanus booster 11/30/2033 12/01/2023, 10/29/2010 Hepatitis C screening for ag e 18-79 Completed 12/05/2021 HIV for age 15-65 Completed 05/01/2022 Pneumococcal series for age 6-49 Completed 01/15/20 23, 09/14/2013 Tdap Completed 12/01/2023, 10/29/2010 COVID-19 vaccine series Completed 03/02/20 24, 03/19/2023, 05/01/2022, Additional history exists Influenza for age 9-49 Completed 4, 03/19/2023, 05/01/2022, Additional history exists Procedures Procedure Name Priority Date/Time Associated Diagnosis Comments SCAN-CT INTERPRETATION 5 12:00 AM MAT MACHINE TENDER SCAN-CT INTERPRETATION 5 12:00 AM MAT MACHINE TENDER COVID/FLU/RSV PANEL Routine 06/03/2024 2 :37 PM MAT MACHINE TENDER Flu-like symptoms SCAN-RADIOLOGY REPORT 05/24/2024 12:00 AM MAT MACHINE TENDER NM HEPATOBILIARY IMAGING RICHARD 05/10/2024 1:58 PM MAT MACHINE TENDER SCAN CORRESP-LABORATORY RESULTS 05/10/2024 10:49 AM MAT MACHINE TENDER SCAN CORRESP-IMAGING 05/10/2024 10:43 AM MAT MACHINE TENDER HEPATIC FUNCTION PANEL Early AM 6:26 AM MAT MACHINE TENDER PROTIME-INR Early AM 05/10/2024 6:26 AM MAT MACHINE TENDER WHITE BLOOD COUNT Early AM 05/10/2024 6:2 6 AM MAT MACHINE TENDER HEMOGLOBIN Early AM 05/10/2024 6:26 AM MAT MACHINE TENDER PLATELET COUNT Early AM 05/10/2024 6:26 AM MAT MACHINE TENDER SODIUM Early AM 05/10/2024 6:26 AM MAT MACHINE TENDER POTASSIUM Early AM 05/10/2024 6:26 AM MAT MACHINE TENDER CREATININE Early AM 05/10/2024 6:26 AM MAT MACHINE TENDER SCAN-ULTRASOUND REPORT 12:00 AM MAT MACHINE TENDER SCAN-CT INTERPRETATION 12:00 AM MAT MACHINE TENDER DATA ANALYTICS ANALYST IMAGE CAPTURE Routine 04/08/2024 1:2 6 PM MAT MACHINE TENDER LIPID PANEL W REFLEX MEASURED LDL Routine 01/20/2024 4:00 PM CDT Hyperlipidemia, unspecified hyperlipidemia type ANTI HIV 1/2 Routine 05/01/2022 4:36 PM MAT MACHINE TENDER Encounter for screening for HIV ANTI HCV Routine 12/05/2021 9:30 AM CDT Need for hepatitis C screening test SCAN-MAMMOGRAPHY REPORT 02/24/2019 12:00 AM CDT from Last 3 Months or Most Recently Relevant to Health Maintenance Results * SCAN-CT INTERPRETATION (06/16/2024 12:00 AM MAT MACHINE TENDER) Only the most recent of3 resultswithin the time period is included. Anatomical Region Laterality Modality Other us Scanner OTHER Final Result * COVID/FLU/RSV PANEL (06/03/2024 2:37 PM MAT MACHINE TENDER) COVID 19 [facility] Negative Negative 06/03/2024 11:44 PM MAT MACHINE TENDER [facility] Comment:All PCR tests are lopez bject to false negative result due to variability in viral load and collection technique. A negative result does not rule out a SARS-CoV-2 infection. Clinical correlation required. INFLUENZA A PCR Negative 11:44 PM MAT MACHINE TENDER [facility] INFLUENZA B PCR Negative 11:44 PM MAT MACHINE TENDER [facility] Respiratory Syncytial Virus Negative 06/03/2024 11:44 PM MAT MACHINE TENDER [facility] Swab NASOPHARYNGEAL SWAB / Unknown Non-Blood / Unknown 06/03/2024 2:37 PM MAT MACHINE TENDER 06/03/2024 2:38 PM MAT MACHINE TENDER us Geronimo Lamb MD MICROBIOLOGY Final Result [facility] [address] [place] [address], [place] * SCAN-RADIOLOGY REPORT (05/24/2024 12:00 AM MAT MACHINE TENDER) Anatomical Region Laterality Modality Other us Scanner OTHER Final Result * NM HEPATOBILIARY IMAGING (05/10/2024 1:58 PM MAT MACHINE TENDER) Anatomical Region Laterality Modality LIVER Nuclear Medicine 05/10/2024 1:58 PM MAT MACHINE TENDER Impressions 05/10/2024 2:21 PM MAT MACHINE TENDER Negative for acute cholecystitis. Narrative 05/10/2024 2:21 PM MAT MACHINE TENDER For Patients: As a result of the Cures Act, medical imaging exams and procedure reports are released immediately into your electronic medical record. You may view this report before your referring provider. If you have questions, please contact your health care provider. EXAM: NM HEPATOBILIARY IMAGING LOCATION: [facility] DATE: 05/10/2024 INDICATION: Right upper quadrant abdominal pain COMPARISON: Abdominal ultrasound dated 05/09/2024 TECHNIQUE: Tc-99m Mebrofenin 8.0 mCi, IV. Anterior planar imaging of the abdomen. FINDINGS: Normal radionuclide activity in liver, gallbladder, bile ducts, and small bowel. No evidence of cystic or common duct obstruction or intrinsic liver disease. Procedure Note Rito Clemons MD - 05/10/2024 For Patients: As a result of the 21st Century Cures Act, medical imagingexams and procedure reports are released immediately into your electronicmedical record. You may view this report before your referring provider.If you have questions, please contact your health care provider. EXAM: NM HEPATOBILIARY IMAGING LOCATION: [facility] DATE: 05/10/2024 INDICATION: Right upper quadrant abdominal pain COMPARISON: Abdominal ultrasound dated 05/09/2024 TECHNIQUE: Tc-99m Mebrofenin 8.0 mCi, IV. Anterior planar imaging of theabdomen. FINDINGS: Normal radionuclide activity in liver, gallbladder, bile ducts,and small bowel. No evidence of cystic or common duct obstruction orintrinsic liver disease. IMPRESSION: Negative for acute cholecystitis. Eva Valdez PA NM Final Res ult * SCAN CORRESP-LABORATORY RESULTS (05/10/2024 10:49 AM MAT MACHINE TENDER) Narrative 05/10/2024 10:49 AM MAT MACHINE TENDER Ordered by an unspecified provider. Other Clinical Staff OTHER Final Resul t * SCAN CORRESP-IMAGING (05/10/2024 10:43 AM MAT MACHINE TENDER) Anatomical Region Laterality Modality Other Narrative 05/10/2024 10:43 AM MAT MACHINE TENDER Ordered by an unspecified provider. Other Clinical Staff OTHER Final Resul t * PLATELET COUNT (05/10/2024 6:26 AM MAT MACHINE TENDER) PLATELET COUNT 202 140 - 440 thou/cu mm 05/10/2024 6:48 AM MAT MACHINE TENDER [facility] MPV 10.1 6.5 - 11.0 fL 05/10/2024 6:48 AM MAT MACHINE TENDER [facility] Blood BLOOD SPECIMEN / Unknown Venipuncture / Unknown 05/10/2024 6:26 AM MAT MACHINE TENDER 05/10/2024 6:37 AM MAT MACHINE TENDER Aron Birch DO HEMATOLOGY Final Result [facility] SENDOUT [place]NAL [address]IP [phone] [place] [address] * WHITE BLOOD COUNT (05/10/2024 6:26 AM MAT MACHINE TENDER) WHITE BLOOD COUNT 7.6 4.5 - 11.0 thou/cu mm 05/10/2024 6:48 AM MAT MACHINE TENDER [facility] NRBC 0.0 % 05/10/2024 6:48 AM MAT MACHINE TENDER [facility] ABS NRBC 0.0 thou /cu mm 05/10/2024 6:[address] [facility] Blood BLOOD SPECIMEN / Unknown Venipuncture / Unknown 05/10/2024 6:26 AM MAT MACHINE TENDER 05/10/2024 6:37 AM MAT MACHINE TENDER Aron Zamudio DO HEMATOLOGY Final Result [facility] SENDOUT INTERNAL ZIP [phone] [place] [phone] * HEMOGLOBIN (05/10/2024 6:26 AM MAT MACHINE TENDER) Pathologist [facility] HEMOGLOBIN 12.4 12.0 - 16.0 g/dL 05/10/2024 6:48 AM MAT MACHINE TENDER [facility] MCV 92 80 - 100 fL 05/10/2024 6:[address] [facility] Blood BLOOD SPECIMEN / Unknown Venipuncture / Unknown 05/10/2024 6:26 AM MAT MACHINE TENDER 05/10/2024 6:37 AM MAT MACHINE TENDER Aron Birch DO HEMATOLOGY Final Result [facility] SENDOUT INTERNAL ZIP [phone] [place] [phone] * SODIUM (05/10/2024 6:26 AM MAT MACHINE TENDER) Pathologist [facility] SODIUM 143 136 - 145 mmol/L 05/10/2024 7:[address] [facility] Blood BLOOD SPECIMEN / Unknown Venipuncture / Unknown 05/10/2024 6:26 AM MAT MACHINE TENDER 05/10/2024 6:37 AM MAT MACHINE TENDER Aron Birch DO CHEMISTRY Final Result [facility] SENDOUT INTERNAL ZIP [phone] [place] [id number] * POTASSIUM (05/10/2024 6:26 AM [facility]) POTASSIUM 3.8 3.5 - 5.1 mmol/L 05/10/2024 7:[address] [facility] Blood BLOOD SPECIMEN / Unknown Venipuncture / Unknown 05/10/2024 6:26 AM MAT MACHINE TENDER 05/10/2024 6:[address] [facility] CHEMISTRY Final Result Performing Organization Address [facility] [place]/[facility] Co de Phone Number [facility] SENDOUT INTERNAL ZIP [address] [place] [phone] * CREATININE (05/10/2024 6:26 AM [facility]) Pathologist [facility] eGFR >90 >90 mL/min/1.7 3m2 05/10/2024 7:[address] [facility] Comment:As of 2021, eG FR is calculated by the CKD-EPI creatinine equation without race adjustment. eGFR can be influenced by muscle mass, exercise, and diet. The reported eGFR is an estimation only and is only applicable if the renal function is stable. CREATININE 0.73 0.50 - 0.90 mg/dL 05/10/2024 7:[address] [facility] Blood BLOOD SPECIMEN / Unknown Venipuncture / Unknown 05/10/2024 6:26 AM MAT MACHINE TENDER 05/10/2024 6:37 [address] [facility] CHEMISTRY Final Result Performing Organization Address City/[facility]/ZIP Co de Phone Number [facility] SENDOUT INTERNAL ZIP [id number] [place] [id number] * PROTIME-INR (05/10/2024 6:26 AM [facility]) Pathologist [facility] INR 1.1 <1.3 05/10/2024 6:[address] [facility] PROTIME 12.2 10.6 - 12.4 sec 05/10/2024 6:[address] [facility] [facility] Blood BLOOD SPECIMEN / Unknown Venipuncture / Unknown 05/10/2024 6:26 AM MAT MACHINE TENDER 05/10/2024 6:37 AM [facility] LABORATORY - 05/10/2024 6:52 AM [facility] Therapeutic Range 2.0-3.0 for most anticoagulated patients 2.5-3.5 or 4.0 for high risk patients The INR is only used for patients on stable oral anticoagulant therapy. It makes no significant contribution to the diagnosis or treatment of patients whose Protime is prolonged for other reasons. INR results are increased when heparin levels exceed 1.0 U/mL, which corresponds to an aPTT >125 seconds if the patient is on UFH. Aron Birch DO HEMATOLOGY Final Result [facility] SENDOUT INTERNAL ZIP [id number] [place] [id number] * (ABNORMAL) HEPATIC FUNCTION PANEL (05/10/2024 6:26 AM MAT MACHINE TENDER) ALBUMIN 3.6(L) 4.0 - 4.9 g/dL 05/10/2024 7:[address] [facility] PROTEIN,TOTAL 6.5 6.0 - 8.0 g/dL 05/10/2024 7:[address] [facility] BILIRUBIN,TOTAL 0.4 0.0 - 1.2 mg/dL 05/10/2024 7:[address] [facility] BILIRUBIN,DIRECT 0.2 0.0 - 0.2 mg/dL 05/10/2024 7:[address] [facility] BILIRUBIN,INDIRE CT 0.2 0.2 - 0.8 mg/dL 05/10/2024 7:[address] [facility] ALK PHOSPHATASE 82 35 - 104 IU/L 05/10/2024 7:[address] [facility] ALT (SGPT) 30 10 - 35 IU/L 05/10/2024 7:[address] [facility] AST (SGOT) 26 10 - 35 IU/L 05/10/2024 7:[address] [facility] Blood BLOOD SPECIMEN / Unknown Venipuncture / Unknown 05/10/2024 6:26 AM MAT MACHINE TENDER 05/10/2024 6:37 AM [facility] Aron Piero Heilig DO CHEMISTRY Final Result [facility] SENDOUT INTERNAL ZIP [id number] [address] [place] [address] * SCAN-ULTRASOUND REPORT (05/09/2024 12:00 AM MAT MACHINE TENDER) Anatomical Region Laterality Modality Other us Scanner OTHER Final Result * (ABNORMAL) LIPID PANEL W REFLEX MEASURED LDL (01/20/2024 4:00 PM CDT) CHOLESTEROL,TOTAL 261(H) 100 - 199 mg/dL 01/21/2024 1:44 PM CDT [facility] Comment: Cholesterol, Total Reference Ranges Desirable <200 mg/dL Borderline 200-239 mg/dL High >=240 mg/dL TRIGLYCERIDES 252(H) <150 mg/dL 01/21/2024 1:44 PM CDT [facility] HDL CHOLESTEROL 50 >40 mg/dL 1:44 PM CDT [facility] NON-HDL CHOLESTEROL 211(H) <145 mg/dl 01/21/2024 1:44 PM CDT [facility] CHOL/HDL RATIO 5.22(H) <4.50 01/21/2024 1:44 PM CDT [facility] LDL CHOLESTEROL 161(H) <=130 mg/dL 01/21/2024 1:44 PM CDT [facility] VLDL CHOLESTEROL 50(H) <=30 mg/dL 01/21/2024 1:44 PM CDT [facility] PROVIDER ORDERED STATUS RANDOM 01/21/2024 1:44 PM CDT [facility] Blood BLOOD SPECIMEN / Unknown Venipuncture / Unknown 01/20/2024 4:00 PM CDT 01/20/2024 4:00 PM CDT us Geronimo Lamb MD CHEMISTRY Final Result [facility] [address] [place] [address], [place] * ANTI HIV 1/2 (05/01/2022 4:36 PM MAT MACHINE TENDER) HIV-1/HIV-2 ANTIBODY Non-Reacti ve Non-Reacti ve 05/04/2022 9:59 PM MAT MACHINE TENDER [facility] Comment:HIV-1 p24 and HIV-1/ HIV-2 Ab not detected. Blood BLOOD SPECIMEN / Unknown Butterfly / Unknown 05/01/2022 4:36 PM MAT MACHINE TENDER 05/01/2022 4:41 PM MAT MACHINE TENDER us Geronimo Lamb MD SEND OUTS Final Result [facility] [address] [place] [address], [place] * ANTI HCV (12/05/2021 9:30 AM CDT) Pathologist [facility] HEPATITIS C ANTIBODY Non-React shikha Non-React shikha 12/05/2021 9:16 PM CDT [facility] Comment:Antibodies to HCV no t detected; does not exclude the possibility of exposure to HCV. Blood BLOOD SPECIMEN / Unknown Venipuncture / Unknown 12/05/2021 9:30 AM CDT 12/05/2021 9:33 AM CDT us Geronimo Lamb MD SEND OUTS Final Result [facility] [address] [place] [address], [place] * SCAN-MAMMOGRAPHY REPORT (02/24/2019 12:00 AM CDT) Anatomical Region Laterality Modality Other us Scanner OTHER Final Result from Last 3 Months or Most Recently Relevant to Health Maintenance Insurance [facility] MEDICARE PART A HB ONLY Advance Directives * Full Code (Latest Code Status on File) Date Activated Date Inactivated Comments 05/09/2024 10:07 PM 05/11/2024 4:49 PM Question Answer Comments Code Status Discussion: Reviewed Preferences Care Teams Senior Research Engineer Relationship Specialty Start Date End Date Geronimo Lamb MD [address] [place] [address] PCP - General Family Practice 04/23/21 Paolo Limon MD Sleep Medicine 10/28/11 Talon Durham MD Neurology Neurology 11/26/11 Laura Gardner PsyD, [facility] Psychology 09/14/13 [place] [address] [place] [address] Pulmonology Pulmonary Medicine 01/22/24
--- OUTSIDE RECORDS SUMMARY | 2024-07-04 09:24 | XMS_ITS | Clinical Summary ---
Author Organization [facility] Address [address] , [address] [place] [address] Phone Care Team Providers Care Creel Clerk Name Role Phone Son Jara MD Conditions or Problems Problem Name Problem Code Onset Date Status Entry Date Provider Comment Standard Description Annotate Involuntary movements 205816960 (SNOMED CT) Active Son Jara MD Abnormal involuntary movement Tremor [id number] (SNOMED CT) Active Son Jara MD Tremor Medications Medication Instructions Start Date Stop Date Generic Name ND Provider SOLIFENACIN SUCCINATE 10 MG TABS Take 1 Tablet (10 mg) by mouth once daily. solifenacin (VESICARE) 10 mg tablet [id number] Son Jara MD PROCHLORPERAZINE MALEATE 5 MG TABS Take 1 Tablet (5 mg) by mouth every 8 hours if needed for Nausea/Vomitin g. prochlorperazine (COMPAZINE) 5 mg tablet [id number] Son Jara MD OMEPRAZOLE 20 MG CPDR Take 2 Capsules (40 mg) by mouth once daily before a meal. omeprazole (PriLOSEC) 20 mg Delayed-Release capsule [id number] Son Jara MD MONTELUKAST SODIUM 10 MG TABS Take 1 Tablet (10 mg) by mouth at bedtime. montelukast (SINGULAIR) 10 mg tablet [id number] Son Jara MD mirabegron EXTENDED-release (MYRBETRIQ) 50 mg tablet Take 1 Tablet (50 mg) by mouth once daily. mirabegron EXTENDED-release (MYRBETRIQ) 50 mg tablet Son Jara MD MECLIZINE HCL 25 MG TABS Take 0.5 Tablets (12.5 mg) by mouth 3 times daily if needed for Nausea/Vomitin g. meclizine (ANTIVERT) 25 mg tablet [id number] Son Jara MD LEVOTHYROXINE SODIUM 175 MCG TABS Take 1 Tablet (175 mcg) by mouth before breakfast. levothyroxine (SYNTHROID) 175 mcg tablet [id number] Son Jara MD FEXOFENADINE HCL 180 MG TABS Take 1 tablet by mouth once daily with a meal. fexofenadine (ROJAS) 180 mg tablet [id number] Son Jara MD DIPHENHYDRAMINE HCL 25 MG CAPS Take 1 capsule by mouth each time if needed. diphenhydrAMINE (BENADRYL) 25 mg capsule [id number] Son Jara MD VITAMIN D 50 MCG (2000 UT) TABS Take 2,000 units by mouth. cholecalciferol, Vitamin D3, 2,000 unit tablet [id number] Son Jara MD BUPROPION HCL ER (XL) 150 MG [id number] null buPROPion (WELLBUTRIN XL) 150 mg Extended-Release tablet [id number] Son Jara MD IPRATROPIUM-ALBUTE ROL 0.5-2.5 (3) MG/3ML SOLN Inhale 3 mL via a nebulizer 2 times daily if needed for Shortness of Breath 1st choice or Wheezing 1st choice. albuterol-ipratrop ium (DUONEB) (2.5-0.5 mg) in 3 mL NEBULIZA [id number] Son Jara MD ALBUTEROL SULFATE HFA 108 (90 Base) MCG/ACT AERS Inhale 1-2 Puffs by mouth every 4 hours if needed for Shortness of Breath 1st choice. albuterol HFA (ProAir HFA) 90 mcg/actuation inhaler [id number] Son Jara MD ALBUTEROL SULFATE (2.5 MG/3ML) 0.083% NEBU Inhale 3 mL via a nebulizer every 6 hours if needed for Shortness Of Breath or Wheezing. albuterol (PROVENTIL) 0.083 % neb solution [id number] Son Jara MD SYMBICORT 160-4.5 MCG/ACT AERO null Symbicort 160-4. 5 mcg/actuation (160-4.5 mcg each actuation) [id number] Son Jara MD PAROXETINE HCL 40 MG TABS null PARoxetine (PAXI L) 40 mg tablet [id number] Son Jara MD Medications Administered No information available. Allergies, Adverse Reactions, Alerts Allergy Name Reaction Description Start Date Severity Statu s Provider SCOPOLAMINE Tremors Mild Active Son Jara MD OXYCODONE-ACETAMINOPHEN Confusion, Other - Describe In Comment Field Mild Active Son Jara MD LATEX Rash Mild Active Son Jara MD DEXTROAMPHETAMINE-AMPHE TAMINE Rash Mild Active Son Jara MD AZITHROMYCIN Diarrhea, Nausea And Vomiting Mild Active Son Jara MD Results Date Name Value Unit Range Flag Description Office Visit: Office Visit f ax SMOK STATUS former smoker Tob acco smoking status MEDS REVIEW Done Documenta tion of current medications (procedure) Internal Other: Verbal Autho rization/Emergency Contact - OBS VERBAL_EMER DONE Verbal au thorization and emergency contact Internal Other: Authorizatio n - OBS [email or web address] Yes Authoriza tion: Release of Information - Authorize [facility] - Payment and Healthcare Operations ROIAUTHOTHER Yes Authoriz ation: Release of Information - Authorize Others/Insurance - Payment and Healthcare Operations HIECONSENT Yes Consent To Release information to the Health Information Exchange (HIE) [email or web address] Yes Authorizat ion: Authorization for [facility] to leave messages, voicemail, send text messages, send emails AUTHRELHCARE Yes Authoriz ation: Release/Retrieval of Information to/from Healthcare Facilities, Pharmacy Benefit Payers and Providers AUTHPRIVPRAC Yes Authoriz ation: Notice of privacy practices AUTHBENEFIT Yes Authoriza tion: Assignment of Benefits and Payment Agreement Plan of Care Type Date Detail Pending order Follow up DAVID in clinic or telemedicine Pending order Follow up DAVID in clinic or telemedicine Pending order EEG Sleep Depriv ed (41min) Pending order Obtain imaging r eport Pending order Obtain imaging r eport Pending order Patient Instruct ions Procedures Code Procedure Name Date Entry Date ORDERS EEG Sleep Deprived (41min) 2 [id number]-07496 EEG EXTENDED 41-60mins (END) [id number] Documentation of current medicatio ns ORDERS Patient Instructions Vital Signs No information available. Immunizations No information available. Advance Directives No information available.
--- OUTSIDE RECORDS SUMMARY | 2024-07-04 09:24 | XMS_ITS | CCD ---
Author Organization Unknown Care Team Providers Care Cotton Bag Sewer Name Role Phone [facility] [place] Primary Care Provider Unava ilable Unavailable Chronic Care Management Unavaila ble Summary Purpose DataExchange Insurance Providers Payer name Policy type / Coverage type Covered alliance party ID Effective Begin Date Effective End Date [facility] Commercial Insurance [id number] Unkn own Family History Family History data not found Medication Administered No Medication Administered data Reason For Visit No Reason For Visit data
--- OUTSIDE RECORDS SUMMARY | 2024-07-04 09:24 | XMS_ITS | Clinical Summary ---
Author Organization [facility] Address [address] [place] [address] Care Team Providers Care Project Administrative Assistant Name Role Phone Elsewhere, Pcp Primary Care Provider Unavailabl e Source Comments Patient records contain information from all sites at [facility]. For routine questions regarding patient records, call [phone] during business hours, M-F 8:00 AM - 5:00 PM Central Time. Record requests for emergency care only can be directed to [phone] at any time.[facility] Allergies Active Allergy Reactions [...] 0.4, Reverse T3 9 (11-32 ng/dl) Immunizations Immunization Administration Dates Next Due Influenza, Unspecified 05/01/2016,02/06/2015 [...] Sex Assigned at Female 06/02/2018 2:11 PM ELECTRIC BLANKET PACKER Legal Sex Female 5:08 AM ELECTRIC BLANKET PACKER Gender Identity Female 06/02/2018 2:11 PM ELECTRIC BLANKET PACKER Sexual Orientation Choose not to disclose 2018 2:11 PM ELECTRIC BLANKET PACKER Last Filed Vital Signs Vital Sign [...] Td or Tdap) 10/29/2020 10/29/2010 COVID-19 Vaccine ( season) 2024 03/19/2023, 05/01/2022, 08/29/2021, Additional history exists Influenza Vaccine (#1) 2024 , 05/01/2022, 03/09/2018, Additional history exists Creatinine Level (Kidney Function Test) 03/19/2024 03/19/2023, 05/01/2022, 03/11/2018, Additional history exists Lipid (Cholesterol) Screening 03/19/2024 03/19/2023, 08/29/2021, 06/10/2016 Potassium Level 03/19/2024 03/19/2023, 12/11/2021, 03/11/2018, Additional history exists Sodium Level 03/19/2024 03/19/2023, 12/0 11/2021, 03/11/2018, Additional history exists Depression Monitoring (PHQ-9 for quality tracking) 05/26/2024 Thyroid Stimulating Hormone (TSH) test for thyroid function 06/10/2024 06/10/2023, 03/19/2023, 01/14/2023, Additional history exists Fasting Glucose for Diabetes Screening 03/19/2026 03/19/2023, 05/01/2022, 03/11/2018, Additional history exists Pneumococcal vaccine (0-49 years) Completed 01/14/2023, 09/14/2013 IPV Vaccines Aged Out No longer eligi ble based on patient's age to complete this topic Medical Devices Implanted Type Area Oil Burner Servicer And Installer Device Identifier Shelf Expiration Date Model / Serial / Lot Ear Implant- [id number] Implanted:11/24 (Quantity not on file) Ear Implant Ear [facility] Bernice Vega TORP Plasti-pore [id number] / / [id number] Description:[facility], [place], [place]. Ear implant-Vega TOPR Plasti-pore MRI Safe Procedures Procedure Name Priority Date/Time Associated Diagnosis Comments THYROID-STIMULATING HORMONE-SENSITIVE (S-TSH) Routine 10/27/2018 3:42 PM CDT Hypothyroidism Primary BASIC METABOLIC PANEL, S/P Routine 03/11/2018 1:58 PM CDT Dizziness Diplopia LIPID PANEL, S Routine 06/10/2016 10:40 AM ELECTRIC BLANKET PACKER from Last 3 Months or Most Recently Relevant to Health Maintenance Results * (ABNORMAL) S-TSH (Thyroid-Stimulating Hormone - Sensitive) (10/27/2018 3:42 PM CDT) TSH, Sensitive 10.7(H) 0.3 - 4.2 mIU/L 10/27/2018 5:20 PM CDT Comment: Biotin has been identified by the lockstitch machine operator as a potential interfering substance. Higher concentrations of biotin may be found in multivitamins, hair/nail supplements, and workout supplements. If the result does not match clinical observations, repeat testing after patient refrains from the use of supplements for at least 12 hours. Blood (Blood, Venous) 10/27/2018 3:42 PM CDT 10/27/2018 3:43 PM CDT us Deanne Tsang P.A.-C. LAB BLOOD ADD-ON Final Result [facility] [address] [place] [address], [facility] * Basic Metabolic Panel (03/11/2018 1:58 PM CDT) Potassium, S 4.0 3.6 - 5.2 mmol/L 03/11/2018 2:29 PM CDT [facility] Sodium, S 141 135 - 145 mmol/L 03/11/2018 2:29 PM CDT [facility] Chloride, S 101 98 - 107 mmol/L 03/11/2018 2:29 PM CDT [facility] Bicarbonate, S 27 22 - 29 mmol/L 03/11/2018 2:29 PM CDT [facility] Anion Gap 13 7 - 15 03/11/2018 2:29 PM CDT [facility] BUN (Blood Urea Nitrogen), S 12 6 - 21 mg/dL 03/11/2018 2:29 PM CDT [facility] Creatinine 0.62 0.59 - 1.04 mg/dL 03/11/2018 2:29 PM CDT [facility] eGFR-Non Black/ >90 >=60 mL/min/BSA 03/11/2018 2:29 PM CDT [facility] Comment: ----ADDITIONAL INFORMATION---- Estimated GFR calculated using the 2009 CKD_EPI creatinine equation. eGFR-Black/Afri can Citizen Of [place] >90 >=60 mL/min/BSA 03/11/2018 2:29 PM CDT [facility] Comment: ----ADDITIONAL INFORMATION---- Estimated GFR calculated using the 2009 CKD_EPI creatinine equation. Calcium, Total, S 9.4 8.6 - 10.0 mg/dL 03/11/2018 2:29 PM CDT [facility] Glucose, S 95 70 - 140 mg/dL 03/11/2018 2:29 PM CDT [facility] Blood (Blood, Venous) 03/11/2018 1:58 PM CDT 03/11/2018 1:58 PM CDT Deanne Tsang P.A.-C. LAB BLOOD ADD-ON Final Result Performing Organization Address City/State/[facility] Co de Phone Number [facility] [address] * (ABNORMAL) Lipid Panel (06/10/2016 10:40 AM ELECTRIC BLANKET PACKER) [facility] Cholesterol, Total 275(H) <=199 MGDL POWERCHART Comment: [...] for FH and FDB is available through [facility]: FH/ADH Genetic Reflex Panel (test ADHP). Acquired (non-genetic) causes of markedly increased LDL cholesterol include cholestatic liver disease due to the presence of LpX. If a genetic form of hypercholesterolemia is suspected, family studies including biochemical testing for lipids (total cholesterol,triglycerides, LDL cholesterol and HDL cholesterol) are recommended. Please contact the laboratory at or the on-line test catalog at [facility] for information about how to order these tests or to speak with a genetic counselor. Further interpretation would require clinical information. Total Cholesterol/HDL Ratio 5 POWERCHART Blood 06/10/2016 10:4 0 AM ELECTRIC BLANKET PACKER us Ana Chery M.D. LAB BLOOD ADD-ON Final Re sult POWERCHART from Last 3 Months or Most Recently Relevant to Health Maintenance Insurance [facility] Care Teams Project Administrative Assistant Relationship Specialty Start Date End Date Elsewhere, Pcp PCP - General Internal Medicine 12/04/18
--- NOTE | 2024-07-04 09:27 | CRLHL7_ITS ---
For Patients: As a result of the Century Cures Act, medical imaging exams and procedure reports are released immediately into your electronic medical record. You may view this report before your referring provider. If you have questions, please contact your health care provider. Indication: Shortness of breath. Numbness and tingling. Technique: Chest 2 views. Comparison: 06/14/2024. Findings/Impression: Cardiovascular and mediastinum: Normal heart size and mediastinum. Mild central pulmonary vascular congestion without overt edema. Lungs and pleural spaces: Lungs are clear. No sign of infiltrate or mass. No sign of pleural effusion. No pneumothorax. No convincing evidence for pneumonia. Bones and soft tissues: No significant findings. Dictated by Severiano Dozier MD @ 07/04/2024 11:03:03 AM (Electronically Signed)
--- NOTE | 2024-07-04 09:29 | ED.GENADULT ---
HPI - General Adult General Chief complaint: Shortness of Breath/Dyspnea Stated complaint: Numbness and Tingling Time Seen by Provider: 07/04/24 09:27 History of Present Illness HPI narrative: Patient is a 49-year-old woman with a history of COPD and frequent ER visits who presents acutely short of breath. She tells me that 3 weeks ago she was diagnosed with community-acquired pneumonia. Two weeks ago she was seen in urgent care and was found to have bronchitis. Patient now is having a nonproductive cough general malaise body aches fatigue as well as expiratory wheezing. She has not had any recent travel or sick contacts. She has had no hemoptysis or chest pain. Symptoms have been progressing for the last several days worsening this morning. Related Data Home Medications ?Medication ?Instructions ?Recorded ?Confirmed albuterol sulfate 90 mcg/actuation 1 - 2 puff inhalation Q4H PRN 11/30/21 06/14/24 aerosol inhaler mirabegron 50 mg tablet,extended 50 mg PO DAILY 11/30/21 06/16/24 release 24 hr (Myrbetriq) montelukast 10 mg tablet 10 mg PO HS 11/30/21 06/16/24 omeprazole 20 mg capsule,delayed 40 mg PO DAILY 02/26/22 06/16/24 release levetiracetam 750 mg tablet 750 mg PO BID 11/25/22 06/16/24 (Keppra) cholecalciferol (vitamin D3) 50 50 mcg PO DAILY 01/30/23 06/16/24 mcg (2,000 unit) capsule paroxetine HCl 40 mg tablet 40 mg PO DAILY 01/30/23 06/16/24 levothyroxine 100 mcg tablet 100 mcg PO DAILY 10/16/23 06/16/24 potassium chloride 10 mEq 20 meq PO DAILY 10/16/23 06/16/24 tablet,extended release aluminum-mag hydroxide-simethicone 5 - 10 ml PO 5XD PRN 03/20/24 06/14/24 200 mg-200 mg-20 mg/5 mL oral susp (Maalox Advanced) dextromethorphan HBr 10 mg/5 mL 5 - 10 mg PO Q4-6H PRN 03/20/24 06/14/24 oral syrup diphenhydramine HCl 25 mg capsule 25 - 50 mg PO Q8H PRN 03/20/24 06/16/24 (Banophen) ibuprofen 200 mg capsule 200 - 400 mg PO Q4-6H PRN 03/20/24 06/16/24 loperamide 2 mg tablet 1 mg PO Q6H PRN 03/20/24 06/14/24 (Anti-Diarrheal (loperamide)) magnesium hydroxide 400 mg/5 mL 15 - 30 ml PO DAILY PRN 03/20/24 06/14/24 oral suspension (Milk of Magnesia) terbinafine HCl 1 % topical cream applic topical Q12H 03/20/24 06/14/24 Previous Rx's ?Medication ?Instructions ?Recorded albuterol sulfate 2.5 mg/3 mL 2.5 mg (3 mL) inhalation Q8H PRN 02/02/23 (0.083 %) solution for nebulization #1 mL budesonide-formoterol HFA 160 2 puff inhalation BID #1 g 02/02/23 mcg-4.5 mcg/actuation aerosol inhaler (Symbicort) furosemide 40 mg tablet 40 mg PO DAILY #30 tabs 02/02/23 tiotropium bromide 2.5 2 puff inhalation DAILY #1 g 02/02/23 mcg/actuation mist for inhalation (Spiriva Respimat) azithromycin 250 mg tablet See Rx Instructions PO .COMPLEX #6 06/14/24 tabs azithromycin 250 mg tablet See Rx Instructions PO .COMPLEX #6 07/04/24 (Zithromax) tabs prednisone 20 mg tablet 20 mg PO BID #10 tabs 07/04/24 Allergies Allergy/AdvReac Type Severity Reaction Status Date / Time azithromycin Allergy Intermediate Bloody Verified 07/04/24 09:34 Stools latex Allergy Intermediate Rash Verified 07/04/24 09:34 oxycodone Allergy Intermediate Agitated Verified 07/04/24 09:34 scopolamine Allergy Intermediate Tremors Verified 07/04/24 09:34 acetaminophen (From Percocet) Allergy Mild Verified 07/04/24 09:34 basil Allergy Rash Verified 07/04/24 09:34 Review of Systems Status of ROS: Reports: 10 or more systems reviewed and unremarkable except as noted in History and below [facility] Medical History Hypothyroidism ?E03.9 - Hypothyroidism, unspecified (ICD-10) Acute and chronic respiratory failure with hypoxia ?J96.21 - Acute and chronic respiratory failure with hypoxia (ICD-10) 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 - Unspecified convulsions (ICD-10) RODRICK (obstructive sleep apnea) ?G47.33 - Obstructive sleep apnea (adult) (pediatric) (ICD-10) ADHD ?F90.9 - Attention-deficit hyperactivity disorder, unspecified type (ICD-10) Hyperthyroidism ?E05.90 - Thyrotoxicosis, unspecified without thyrotoxic crisis or storm (ICD-10) Hydrocephalus ?G91.9 - Hydrocephalus, unspecified (ICD-10) Hyperlipidemia ?E78.5 - Hyperlipidemia, unspecified (ICD-10) Anxiety and depression ?F41.9 - Anxiety disorder, unspecified (ICD-10) ?F32.A - Depression, unspecified (ICD-10) Asthma ?J45.909 - Unspecified asthma, uncomplicated (ICD-10) Surgical History History of ear surgery ?Z98.890 - Other specified postprocedural states (ICD-10) History of strabismus surgery ?Z98.890 - Other specified postprocedural states (ICD-10) Social History Narrative: on disability since 2009; lives alone with her cat. nonsmoker, no drugs, no significant tobacco history adopted, her two adopted aunts are her family contacts. What is your current living situation?: I presently have a place to live Problems where you live: no known problems Problems where you live details: None In the past 12 months, utilities in danger of being shut off: no In past 12 months, lack of transportation kept you from medical appts, meetings, work, or getting things needed for daily living: no In the past 12 mos, have been you worried that your food would run out before you had money to buy more?: never true In the past 12 mos, the food you bought just didn't last and you didn't have money to buy more?: never true Highest level of school completed/degree received: Associate degree: academic program Smoking Status: Former smoker What tobacco products do you use: cigarettes Smoking quit date/years: <= 15 years ago Do you use any of these nicotine containing products: None Second hand tobacco smoke exposure: Yes How often do you have a drink containing alcohol: never How often do you have six or more drinks on one occasion: Never AUDIT-C Alcohol total score: 0 Non-prescribed substance use: denies use Caffeine: Yes (Pop ocassionally) How often does anyone, including family, friends and others, physically hurt you: never How often does anyone, including family, friends and others, insult or talk down to you: never How often does anyone, including family, friends and others, threaten you with harm: never How often does anyone, including family, friends and others, scream or curse at you: never service: No Exam Narrative: Exam Narrative: EXAM GENERAL: Patient appears mildly distressed. EYES: No scleral icterus. ENT: Tympanic membranes and oropharynx normal. THYROID: no thyroid nodules or thyromegaly. LYMPH: No supraclavicular or cervical lymphadenopathy. SKIN: Visible skin seen during exam normal or with benign process only. EXT: No dependent lower extremity pedal edema. HEART: Regular rate and rhythm with no murmurs, rubs, or gallops. LUNGS: Decreased breath sounds with expiratory wheezes bilaterally. ABD: Soft, non tender, non distended. PSYCH: Good eye contact, speech is not pressured. Const: Vital Signs, click to edit/add: Vital Signs - 24 hr 07/04/24 09:27 07/04/24 09:28 07/04/24 09:29 Temperature Pulse Rate 98 97 90 Pulse Rate [Pulse Oximeter] Respiratory Rate Blood Pressure 122/110 H 138/101 H Blood Pressure [Ri ght Upper Arm] Pulse Oximetry 88 87 L 91 Oxygen Delivery Me thod Nasal Cannula Nasal Cannula Nasal Cannula Oxygen Flow Rate 2 2 2 07/04/24 09:30 07/04/24 09:31 07/04/24 09:38 Temperature 97.9 F Pulse Rate 93 96 Pulse Rate [Pulse Oximeter] 99 Respiratory Rate 24 Blood Pressure 142/103 H Blood Pressure [Ri ght Upper Arm] 138/109 H Pulse Oximetry 92 93 93 Oxygen Delivery Me thod Nasal Cannula Nasal Cannula Nasal Cannula Oxygen Flow Rate 2 2 2 07/04/24 09:45 07/04/24 09:54 Temperature Pulse Rate 95 97 Pulse Rate [Pulse Oximeter] Respiratory Rate Blood Pressure 152/104 H Blood Pressure [Ri ght Upper Arm] Pulse Oximetry 90 92 Oxygen Delivery Me thod Nasal Cannula Nasal Cannula Oxygen Flow Rate 2 2 Course Course ED Course: X-ray an appropriate lab work ordered. Vital Signs Vital signs: Initial Vital Signs Pulse Rate 98 07/04/24 09:27 Pulse Oximetry 88 07/04/24 09:27 Oxygen Delivery Method Nasal Cannula 07/04/24 09:27 Oxygen Flow Rate 2 07/04/24 09:27 Vital Signs Pulse Rate 98 07/04/24 09:27 Pulse Oximetry 88 07/04/24 09:27 Oxygen Delivery Method Nasal Cannula 07/04/24 09:27 Oxygen Flow Rate 2 07/04/24 09:27 Temperature 97.9 F 07/04/24 09:38 Pulse Rate 97 07/04/24 09:54 Respiratory Rate 24 07/04/24 09:38 Blood Pressure 152/104 H 07/04/24 09:54 Pulse Oximetry 92 07/04/24 09:54 Oxygen Delivery Method Nasal Cannula 07/04/24 09:54 Oxygen Flow Rate 2 07/04/24 09:54 Medications Administered Medications: Discontinued Medications Generic Name Dose Route Start Last Admin Trade Name Freq PRN Reason Stop Dose Admin Albuterol/Ipratropium 1 neb 07/04/24 10:31 07/04/24 10:46 Iprat-Albut 0.5-2.5 Mg/3 Ml Neb IH 07/04/24 10:32 1 neb ONCE ONE Administration Medical Decision Making MDM Narrative Medical decision making narrative: Patient is a very complex 49-year-old woman with history of COPD who comes in short of breath. She lives at [facility] and is on supplemental oxygen at 2-3 L. she is satting 90% on 2-3 L here. Chest x-ray is unremarkable viral etiologies are negative labs are reassuring. At this time I do think her most likely diagnosis is of COPD exacerbation. She no longer smokes. I did place her on a short course of prednisone as well as Zithromax and recommended primary care follow-up. Lab Data Labs: Lab Results 07/04/24 07/04/24 Range/Units 09:30 09:38 WBC 8.49 (4.50-11.00) K/uL RBC 4.01 (4.00-5.20) m/uL Hgb 11.7 L (12.0-16.0) gm/dL Hct 37.5 (33.0-51.0) % MCV 94 (80-100) fL MCH 29 (26-34) pg MCHC 31 L (32-36) gm/dL RDW Coeff of Tomy 13.4 (11.5-15.5) % Plt Count 209 (140-440) K/uL Neut % (Auto) 72.5 H (42.0-72.0) % Lymph % (Auto) 18.6 L (20-44) % [place] % (Auto) 4.8 (0.0-11.0) % Eos % (Auto) 2.6 (0.0-7.0) % Baso % (Auto) 0.6 (0.0-3.0) % Neut # (Auto) 6.20 (1.7-7.0) K/uL Lymph # (Auto) 1.60 (0.90-2.90) K/uL [place] # (Auto) 0.40 (0.00-0.90) K/UL Eos # (Auto) 0.22 (0.00-0.50) K/uL Baso # (Auto) 0.05 (0.00-0.30) K/uL Abs Immat Gran (auto) 0.08 (0.00-0.30) K/uL Imm/Tot Granulo (auto) 0.9 % D-Dimer Quant (PE/DVT) 0.68 H (0.00-0.50) ug/ml VBG pH 7.353 (7.32-7.43) VBG pCO2 68 H* (40-50) mmHG VBG pO2 65.3 H (25-47) mmHG VBG HCO3 38 H (21-28) mmol/L Sodium 138 (135-149) mmol/L Potassium 4.1 (3.6-5.1) mmol/L Chloride 96 (96-114) mmol/L Carbon Dioxide 40 H (20-32) mmol/L Anion Gap 2 L (7-15) mEq/L BUN 13 (5-24) mg/dL Creatinine 0.6 (0.5-1.5) mg/dL Estimated Creat Clear 204.18 Estimated GFR 111 ml/min Glucose 120 H (60-115) mg/dL Lactate 0.8 (0.5-1.9) mmol/L Calcium 9.1 (8.4-10.6) mg/dL Troponin I < 0.01 L (0.01-0.04) ng/mL SARS-CoV-2 (PCR) Negative SARS-CoV-2 (Negative) Influenza Type A (PCR) Negative PCR FLU A (Negative) Influenza Type B (PCR) Negative PCR FLU B (Negative) RSV (PCR) Negative PCR RSV (Negative) Discharge Plan Discharge Clinical Impression: Acute exacerbation of chronic obstructive pulmonary disease Patient Disposition: Home, Self-Care Condition: Stable Instructions: COPD (Chronic Obstructive Pulmonary Disease) (ED) Additional Instructions: Zithromax as directed Prednisone as directed Oxygen as previous Follow-up with your doctor this coming week. Activity Level: No Restrictions Discharge Diet: Regular Prescriptions: New azithromycin [Zithromax] 250 mg tablet See Rx Instructions .ROUTE .COMPLEX Qty: 6 0RF Rx Instructions: For 250 mg dose pack: take 500 mg today (day 1), then 250 mg for 4 days (days 2-5) prednisone 20 mg tablet 20 mg PO BID Qty: 10 0RF No Action azithromycin 250 mg tablet See Rx Instructions PO .COMPLEX Qty: 6 0RF Rx Instructions: For 250 mg dose pack: take 500 mg today (day 1), then 250 mg for 4 days (days 2-5) PO levetiracetam [Keppra] 750 mg tablet 750 mg PO BID potassium chloride 10 mEq tablet extended release 20 meq PO DAILY Rx Instructions: take 2 tablets daily levothyroxine 100 mcg tablet 100 mcg PO DAILY diphenhydramine HCl [Banophen] 25 mg capsule 25 - 50 mg PO Q8H PRN Rx Instructions: allergies ibuprofen 200 mg capsule 200 - 400 mg PO Q4-6H PRN magnesium hydroxide [Milk of Magnesia] 400 mg/5 mL suspension 15 - 30 ml PO DAILY PRN terbinafine HCl 1 % cream topical Q12H alum-mag hydroxide-simeth [Maalox Advanced] 200-200-20 mg/5 mL suspension 5 - 10 ml PO 5XD PRN Rx Instructions: administer between meals and at bedtime loperamide [Anti-Diarrheal (loperamide)] 2 mg tablet 1 mg PO Q6H PRN dextromethorphan HBr 10 mg/5 mL syrup 5 - 10 mg PO Q4-6H PRN montelukast 10 mg tablet 10 mg PO HS mirabegron [Myrbetriq] 50 mg tablet extended release 24 hr 50 mg PO DAILY Patient Comments: albuterol sulfate 90 mcg/actuation HFA aerosol inhaler 1 - 2 puff INHALATION Q4H PRN cholecalciferol (vitamin D3) 50 mcg (2,000 unit) capsule 50 mcg PO DAILY paroxetine HCl 40 mg tablet 40 mg PO DAILY Patient Comments: furosemide 40 mg Tablet 40 mg PO DAILY Qty: 30 0RF albuterol sulfate 2.5 mg /3 mL (0.083 %) solution for nebulization 2.5 mg inhalation Q8H PRNQty: 1 0RF budesonide-formoterol [Symbicort] 160-4.5 mcg/actuation HFA aerosol inhaler 2 puff INHALATION BID Qty: 1 0RF Spiriva Respimat 2.5 mcg/actuation mist 2 puff inhalation DAILY Qty: 1 0RF omeprazole 20 mg capsule,delayed release(DR/EC) 40 mg PO DAILY Follow Up/Referrals: Geronimo Lamb MD [Primary Care Provider] - [facility]
[2024-07-04 09:47] LABS: HCO3 VBG 38 mmol/L (21-28); PO2 VBG 65.3 mmHG (25-47); pH VBG 7.353 (7.32-7.43)
--- OUTSIDE RECORDS SUMMARY | 2024-07-04 09:47 | XMS_ITS | CCD ---
Author Organization Unknown Care Team Providers Care Relay Dispatcher Name Role Phone [employer] Technician, [place] Primary Care Provider Unava ilable Unavailable Chronic Care Management Unavaila ble Summary Purpose DataExchange Insurance Providers Payer name Policy type / Coverage type Covered republican ID Effective Begin Date Effective End Date [facility] Commercial Insurance [id number] Unkn own Family History Family History data not found Medication Administered No Medication Administered data Reason For Visit No Reason For Visit data
--- OUTSIDE RECORDS SUMMARY | 2024-07-04 09:47 | XMS_ITS | Clinical Summary ---
Author Organization [facility] Address [place], [place] [address] Care Team Providers Care In Class Special Education Teacher Name Role Phone Paolo Limon MD Unavailable Talon Durham MD Unavailable [phone] Laura Gardner PsyD, Unavailable [phone] Geronimo Lamb MD Primary Care Provider Luis Santos DO Unavailable [phone] Allergies Active Allergy Reactions Criticality Noted Date [...] 02/23/200911/2011 Dizziness 06/03/2024 Overview (04/23/2021): Eval by [facility] neurology 2018. Thought to be functional. Referred to psychiatry. Encounters Date Type Department Care Team Description 06/29/2024 Telephone [facility] [address] [place] [address] Geronimo Lamb MD Medication Management 06/29/2024 Refill [facility] [address] [place] [address] Geronimo Lamb MD Refill Request (Montelukast) 06/16/2024 Orders Only [facility] Scanner 1 scan: (1-Ord) EQUALITY, CT CHEST WO CON, 06/16/2024 06/16/2024 Orders Only [facility] Scanner 1 scan: (1-Ord) MARIAN, HEAD/BRAIN WO CON, 06/16/2024 06/11/2024 9:00 AM PRINT MANAGER - 06/11/2024 11:59 PM PRINT MANAGER Hospital Encounter [facility] [address] [place] [address] Luis Santos DO 06/04/2024 9:04 AM PRINT MANAGER - 06/04/2024 11:59 PM PRINT MANAGER Hospital Encounter [facility] [address] [place] [address] Luis Santos DO 06/03/2024 2:05 PM PRINT MANAGER Office Visit [facility] [address] [place] [address] Geronimo Lamb MD ER Follow up ([place], 05/24/2024, pneumonia ) 06/03/2024 Travel 05/25/2024 Orders Only [facility] [address] [place] [address] Geronimo Lamb MD <No scans attached> 05/24/2024 Orders Only [facility] Scanner 1 scan: (1-Ord) [facility], XR CHEST 2V, 05/24/2024 05/17/2024 Refill [facility] [address] [place] [address] Geronimo Lamb MD Refill Request (Prevail XL [id number]) 05/14/2024 11:15 AM PRINT MANAGER Office Visit [facility] [address] [place] [address] Fercho Salcedo MD Hospital F/U (ACUTE CHOLECYSTISIS- feeling better ) 05/14/2024 Refill [facility] [address] [place] [address] Geronimo Lamb MD Refill Request (Protective Underwear Ex-large) 05/14/2024 Travel 05/12/2024 2:00 PM PRINT MANAGER Office Visit [facility] [address] [place] [address] Paolo Limon MD Sleep Follow-up 05/12/2024 Travel 05/12/2024 Patient Outreach [facility] [address] [place] [address] [place] Pul[place], PEDRO Primary RN Care Management; Hospital F/U (LACE 43) 05/09/2024 9:50 PM PRINT MANAGER - 05/11/2024 2:49 PM PRINT MANAGER Hospital Encounter [address] [address] s, U Hospitalist Aron Jacob, DO Discharge Disposition: Home Self Care 05/09/2024 Orders Only [facility] Scanner 1 scan: (1-Ord) [facility], US GALLBLADDER, 05/09/2024 05/09/[address] [facility] Scanner 1 scan: (1-Ord) [facility], ABDOMEN PELVIS W/CONTRAST, 05/09/2024 05/05/2024 3:20 PM PRINT MANAGER Office Visit [facility] [address] [place] [address] Geronimo Lamb MD ER Follow up ([place] [facility], 04/21/2024, syncope ); DME Supply (Incontinence products - sent to [facility]/New portable oxygen - [employer]) 05/05/2024 Telephone [facility] [address] [place] [address] Geronimo Lamb MD Follow Up 05/05/2024 Travel 04/23/2024 Refill [facility] [address] [place] [address] Geronimo Lamb MD Refill Request (Levothyroxine) 04/21/2024 Telephone [facility] [address] [place] [address] Geronimo Lamb MD Prior Authorization (tirzepatide, weight loss, (Zepbound) 2.5 mg/0.5 mL pen - DENIED/EXCLUDED) 04/15/2024 Telephone [facility] [address] [place] [address] Geronimo Lamb MD DME Supply 04/08/2024 12:43 PM PRINT MANAGER - 04/08/2024 11:59 PM PRINT MANAGER Hospital Encounter [facility] [address] [place] [address] Luis Santos, Shazia Mckeon, JAVA TECH Wheezing 04/08/2024 Telephone [facility] [address] [place] [address] Shazia Li, JAVA TECH JAVA TECH (Request of orders) 04/08/2024 Travel 04/07/2024 Refill [facility] [place] [facility] [address] [place] [address] Dread Villavicencio MD Refill Request (Paroxetine, Myrbetriq, Levothyroxine, Levetiracetam) 04/05/2024 Telephone [facility] [address] [place] [address] Geronimo Lamb MD Medication Management (tiotropium (SPIRIVA [...] on file Legal Sex Female 6:31 AM PRINT MANAGER Gender Identity Not on file Sexual Orientation Not on file Obstetrics History Last Filed Vital Signs Vital Sign Reading Time Taken Comments Blood Pressure 143/93 06/03/2024 1:59 PM PRINT MANAGER Pulse 107 06/03/2024 1:59 PM PRINT MANAGER Temperature 36.6 C (97.9 F) 05/11/2024 8:03 AM PRINT MANAGER Respiratory Rate 18 05/11/2024 8:03 AM PRINT MANAGER Oxygen Saturation 93% 06/03/2024 1:5 9 PM PRINT MANAGER 2L via nasal cannula Inhaled Oxygen Concentration - - Weight 109.3 kg (241 lb) 06/03/2024 1:5 9 PM PRINT MANAGER Height 142.2 cm (4' 8) 05/12/2024 2:07 PM PRINT MANAGER Body Mass Index 54.03 05/12/2024 2:07 PM PRINT MANAGER Plan of Treatment Upcoming Encounters Date Type Department Care Team (Late st Contact Info) Description 07/05/2024 2:30 PM PRINT MANAGER Office Visit [facility] [address] [place] [address] Geronimo Lamb MD [address] [place] [address] 07/09/2024 9:00 AM PRINT MANAGER Appointment [facility] [address] [place] [address] 07/20/2024 11:00 AM PRINT MANAGER Office Visit [facility] [address] [place] [address] Heather Cruz PA [address] [facility] [place] [address] 07/23/2024 9:00 AM PRINT MANAGER Appointment [facility] [address] [place] [address] 08/06/2024 9:15 AM CDT Appointment [place] [address] [place] [address] 08/19/2024 3:00 PM CDT Office Visit [facility] [address] [place] [address] Paolo Limon MD [address] [place] [address] 08/25/2024 10:00 AM CDT Office Visit [facility] [address] [place] [address] Paolo Limon MD [address] [place] [address] Health Maintenance Due Date Last Done Comments [...] Diagnosis Comments SCAN-CT INTERPRETATION 5 12:00 AM PRINT MANAGER SCAN-CT INTERPRETATION 5 12:00 AM PRINT MANAGER COVID/FLU/RSV PANEL Routine 06/03/2024 2 :37 PM PRINT MANAGER Flu-like symptoms SCAN-RADIOLOGY REPORT 05/24/2024 12:00 AM PRINT MANAGER NM HEPATOBILIARY IMAGING RICHARD 05/10/2024 1:58 PM PRINT MANAGER SCAN CORRESP-LABORATORY RESULTS 05/10/2024 10:49 AM PRINT MANAGER SCAN CORRESP-IMAGING 05/10/2024 10:43 AM PRINT MANAGER HEPATIC FUNCTION PANEL Early AM 6:26 AM PRINT MANAGER PROTIME-INR Early AM 05/10/2024 6:26 AM PRINT MANAGER WHITE BLOOD COUNT Early AM 05/10/2024 6:2 6 AM PRINT MANAGER HEMOGLOBIN Early AM 05/10/2024 6:26 AM PRINT MANAGER PLATELET COUNT Early AM 05/10/2024 6:26 AM PRINT MANAGER SODIUM Early AM 05/10/2024 6:26 AM PRINT MANAGER POTASSIUM Early AM 05/10/2024 6:26 AM PRINT MANAGER CREATININE Early AM 05/10/2024 6:26 AM PRINT MANAGER SCAN-ULTRASOUND REPORT 12:00 AM PRINT MANAGER SCAN-CT INTERPRETATION 12:00 AM PRINT MANAGER JAVA TECH IMAGE CAPTURE Routine 04/08/2024 1:2 6 PM PRINT MANAGER LIPID PANEL W REFLEX MEASURED LDL Routine 01/20/2024 4:00 PM CDT Hyperlipidemia, unspecified hyperlipidemia type ANTI HIV 1/2 Routine 05/01/2022 4:36 PM PRINT MANAGER Encounter for screening for HIV ANTI HCV Routine 12/05/2021 9:30 AM CDT Need for hepatitis C screening test SCAN-MAMMOGRAPHY REPORT 02/24/2019 12:00 AM CDT from Last 3 Months or Most Recently Relevant to Health Maintenance Results * SCAN-CT INTERPRETATION (06/16/2024 12:00 AM PRINT MANAGER) Only the most recent of3 resultswithin the time period is included. Anatomical Region Laterality Modality Other us Scanner OTHER Final Result * COVID/FLU/RSV PANEL (06/03/2024 2:37 PM PRINT MANAGER) COVID 19 [facility] MOLECULAR Negative Negative 06/03/2024 11:44 PM PRINT MANAGER [facility] Comment:All PCR tests are lopez bject to false negative result due to variability in viral load and collection technique. A negative result does not rule out a SARS-CoV-2 infection. Clinical correlation required. INFLUENZA A PCR Negative 11:44 PM PRINT MANAGER [facility] INFLUENZA B PCR Negative 11:44 PM PRINT MANAGER [facility] Respiratory Syncytial Virus Negative 06/03/2024 11:44 PM PRINT MANAGER [facility] Swab NASOPHARYNGEAL SWAB / Unknown Non-Blood / Unknown 06/03/2024 2:37 PM PRINT MANAGER 06/03/2024 2:38 PM PRINT MANAGER us Geronimo Lamb MD MICROBIOLOGY Final Result [facility] [address] [place] [address], [place] * SCAN-RADIOLOGY REPORT (05/24/2024 12:00 AM PRINT MANAGER) Anatomical Region Laterality Modality Other us Scanner OTHER Final Result * NM HEPATOBILIARY IMAGING (05/10/2024 1:58 PM PRINT MANAGER) Anatomical Region Laterality Modality LIVER Nuclear Medicine 05/10/2024 1:58 PM PRINT MANAGER Impressions 05/10/2024 2:21 PM PRINT MANAGER Negative for acute cholecystitis. Narrative 05/10/2024 2:21 PM PRINT MANAGER For Patients: As a result of the Cures Act, medical imaging exams and procedure reports are released immediately into your electronic medical record. You may view this report before your referring provider. If you have questions, please contact your health care provider. EXAM: NM HEPATOBILIARY IMAGING LOCATION: [facility] MEDICAL IMAGING DATE: 05/10/2024 INDICATION: Right upper [...] care provider. EXAM: NM HEPATOBILIARY IMAGING LOCATION: [facility] MEDICAL IMAGING DATE: 05/10/2024 INDICATION: Right upper [...] * SCAN CORRESP-LABORATORY RESULTS (05/10/2024 10:49 AM PRINT MANAGER) Narrative 05/10/2024 10:49 AM PRINT MANAGER Ordered by an unspecified provider. Other Clinical Staff OTHER Final Resul t * SCAN CORRESP-IMAGING (05/10/2024 10:43 AM PRINT MANAGER) Anatomical Region Laterality Modality Other Narrative 05/10/2024 10:43 AM PRINT MANAGER Ordered by an unspecified provider. Other Clinical Staff OTHER Final Resul t * PLATELET COUNT (05/10/2024 6:26 AM PRINT MANAGER) PLATELET COUNT 202 140 - 440 thou/cu mm 05/10/2024 6:48 AM PRINT MANAGER [facility] MPV 10.1 6.5 - 11.0 fL 05/10/2024 6:48 AM PRINT MANAGER [facility] Blood BLOOD SPECIMEN / Unknown Venipuncture / Unknown 05/10/2024 6:26 AM PRINT MANAGER 05/10/2024 6:37 AM PRINT MANAGER Aron Birch DO HEMATOLOGY Final Result [facility] SENDOUT [place] [address] [phone] [place] [address] * WHITE BLOOD COUNT (05/10/2024 6:26 AM PRINT MANAGER) WHITE BLOOD COUNT 7.6 4.5 - 11.0 thou/cu mm 05/10/2024 6:48 AM PRINT MANAGER [facility] NRBC 0.0 % 05/10/2024 6:48 AM PRINT MANAGER [facility] ABS NRBC 0.0 thou /cu mm 05/10/2024 6:48 AM [facility] Blood BLOOD SPECIMEN / Unknown Venipuncture / Unknown 05/10/2024 6:26 AM PRINT MANAGER 05/10/2024 6:37 AM PRINT MANAGER Aron Zamudio DO HEMATOLOGY Final Result [facility] SENDOUT INTER[place]IP [phone] [place] [address] * HEMOGLOBIN (05/10/2024 6:26 AM PRINT MANAGER) Pathologist [facility] HEMOGLOBIN 12.4 12.0 - 16.0 g/dL 05/10/2024 6:48 AM PRINT MANAGER [facility] MCV 92 80 - 100 fL 05/10/2024 6:48 AM [facility] Blood BLOOD SPECIMEN / Unknown Venipuncture / Unknown 05/10/2024 6:26 AM PRINT MANAGER 05/10/2024 6:37 AM PRINT MANAGER Aron Birch DO HEMATOLOGY Final Result [facility] SENDOUT INTERNAL ZIP [address] [place] [address] * SODIUM (05/10/2024 6:26 AM PRINT MANAGER) Pathologist [facility] SODIUM 143 136 - 145 mmol/L 05/10/2024 7:23 AM [facility] Blood BLOOD SPECIMEN / Unknown Venipuncture / Unknown 05/10/2024 6:26 AM PRINT MANAGER 05/10/2024 6:37 AM PRINT MANAGER Aron Birch DO CHEMISTRY Final Result [facility] SENDOUT INTERNAL ZIP [address] [place] [address] * POTASSIUM (05/10/2024 6:26 AM [facility]) POTASSIUM 3.8 3.5 - 5.1 mmol/L 05/10/2024 7:23 AM [facility] Blood BLOOD SPECIMEN / Unknown Venipuncture / Unknown 05/10/2024 6:26 AM PRINT MANAGER 05/10/2024 6:37 AM [facility] CHEMISTRY Final Result Performing Organization Address [facility] Co de Phone Number [facility] SENDOUT INTERNAL ZIP [address] [place] [address] * CREATININE (05/10/2024 6:26 AM [facility]) Pathologist [facility] eGFR >90 >90 mL/min/1.7 3m2 05/10/2024 7:23 AM [facility] Comment:As of 2021, eG FR is calculated by the CKD-EPI creatinine equation without race adjustment. eGFR can be influenced by muscle mass, exercise, and diet. The reported eGFR is an estimation only and is only applicable if the renal function is stable. CREATININE 0.73 0.50 - 0.90 mg/dL 05/10/2024 7:23 AM [facility] Blood BLOOD SPECIMEN / Unknown Venipuncture / Unknown 05/10/2024 6:26 AM PRINT MANAGER 05/10/2024 6:37 AM [facility] CHEMISTRY Final Result Performing Organization Address City/[facility]/ZIP Co de Phone Number [facility] SENDOUT INTERNAL ZIP [address] [place] [address] * PROTIME-INR (05/10/2024 6:26 AM [facility]) Pathologist [facility] INR 1.1 <1.3 05/10/2024 6:52 AM [facility] PROTIME 12.2 10.6 - 12.4 sec 05/10/2024 6:52 AM [facility] Blood BLOOD SPECIMEN / Unknown Venipuncture / Unknown 05/10/2024 6:26 AM PRINT MANAGER 05/10/2024 6:37 AM [facility] - 05/10/2024 6:52 AM [facility] Therapeutic Range 2.0-3.0 for most anticoagulated patients [...] UFH. Aron Birch DO HEMATOLOGY Final Result [facility] SENDOUT INTERNAL ZIP [address] [place] [address] * (ABNORMAL) HEPATIC FUNCTION PANEL (05/10/2024 6:26 AM PRINT MANAGER) ALBUMIN 3.6(L) 4.0 - 4.9 g/dL 05/10/2024 7:23 AM [facility] PROTEIN,TOTAL 6.5 6.0 - 8.0 g/dL 05/10/2024 7:23 AM [facility] BILIRUBIN,TOTAL 0.4 0.0 - 1.2 mg/dL 05/10/2024 7:23 AM [facility] BILIRUBIN,DIRECT 0.2 0.0 - 0.2 mg/dL 05/10/2024 7:23 AM [facility] BILIRUBIN,INDIRE CT 0.2 0.2 - 0.8 mg/dL 05/10/2024 7:23 AM [facility] ALK PHOSPHATASE 82 35 - 104 IU/L 05/10/2024 7:23 AM [facility] ALT (SGPT) 30 10 - 35 IU/L 05/10/2024 7:23 AM [facility] AST (SGOT) 26 10 - 35 IU/L 05/10/2024 7:23 AM [facility] Blood BLOOD SPECIMEN / Unknown Venipuncture / Unknown 05/10/2024 6:26 AM PRINT MANAGER 05/10/2024 6:37 AM [facility] Aron Piero Heilig DO CHEMISTRY Final Result [facility] SENDOUT [place] [address] [address] [place] [address] * SCAN-ULTRASOUND REPORT (05/09/2024 12:00 AM PRINT MANAGER) Anatomical Region Laterality Modality Other us Scanner OTHER Final Result * (ABNORMAL) LIPID PANEL W REFLEX MEASURED LDL (01/20/2024 4:00 PM CDT) CHOLESTEROL,TOTAL 261(H) 100 - 199 mg/dL 01/21/2024 1:44 PM CDT [facility] Comment: Cholesterol, Total Reference Ranges Desirable <200 mg/dL Borderline 200-239 mg/dL High >=240 mg/dL TRIGLYCERIDES 252(H) <150 mg/dL 01/21/2024 1:44 PM CDT [facility] HDL CHOLESTEROL 50 >40 mg/dL 1:44 PM CDT [facility] NON-HDL CHOLESTEROL 211(H) <145 mg/dl 01/21/2024 1:44 PM CDT [facility] CHOL/HDL RATIO 5.22(H) <4.50 01/21/2024 1:44 PM CDT [facility] LDL CHOLESTEROL 161(H) <=130 mg/dL 01/21/2024 1:44 PM CDT [facility] VLDL CHOLESTEROL 50(H) <=30 mg/dL 01/21/2024 1:44 PM CDT [facility] PROVIDER ORDERED STATUS RANDOM 01/21/2024 1:44 PM CDT [facility] Blood BLOOD SPECIMEN / Unknown Venipuncture / Unknown 01/20/2024 4:00 PM CDT 01/20/2024 4:00 PM CDT us Geronimo Lamb MD CHEMISTRY Final Result [facility] [address] [place] [address], [place] * ANTI HIV 1/2 (05/01/2022 4:36 PM PRINT MANAGER) HIV-1/HIV-2 ANTIBODY Non-Reacti ve Non-Reacti ve 05/04/2022 9:59 PM PRINT MANAGER [facility] Comment:HIV-1 p24 and HIV-1/ HIV-2 Ab not detected. Blood BLOOD SPECIMEN / Unknown Butterfly / Unknown 05/01/2022 4:36 PM PRINT MANAGER 05/01/2022 4:41 PM PRINT MANAGER us Geronimo Lamb MD SEND OUTS Final Result [facility] [address] [place] [address], [place] * ANTI HCV (12/05/2021 9:30 AM CDT) Pathologist [facility] HEPATITIS C ANTIBODY Non-React shikha Non-React shikha 12/05/2021 9:16 PM CDT [facility] Comment:Antibodies to HCV no t detected; does not exclude the possibility of exposure to HCV. Blood BLOOD SPECIMEN / Unknown Venipuncture / Unknown 12/05/2021 9:30 AM CDT 12/05/2021 9:33 AM CDT us Geronimo Lamb MD SEND OUTS Final Result [facility] [address] [place] [address], [place] * SCAN-MAMMOGRAPHY REPORT (02/24/2019 12:00 AM CDT) Anatomical Region Laterality Modality Other us Scanner OTHER Final Result from Last 3 Months or Most Recently Relevant to Health Maintenance Insurance [facility] MEDICARE PART A HB ONLY Advance Directives * Full Code (Latest Code Status on File) Date Activated Date Inactivated Comments 05/09/2024 10:07 PM 05/11/2024 4:49 PM Question Answer Comments Code Status Discussion: Reviewed Preferences Care Teams In Class Special Education Teacher Relationship Specialty Start Date End Date Geronimo Lamb MD [address] [place] [address] PCP - General Family Practice 04/23/21 Paolo Limon MD Sleep Medicine 10/28/11 Talon Durham MD Neurology Neurology 11/26/11 Laura Gardner PsyD, SY[facility] Psychology 09/14/13 [place] [address] [place] [address] Pulmonology Pulmonary Medicine 01/22/24
[2024-07-04 09:48] LABS: Basophils Absolute Auto 0.05 K/uL (0.00-0.30); Basophils Percent Auto 0.6 % (0.0-3.0); Eosinophils Absolute Auto 0.22 K/uL (0.00-0.50); Eosinophils Percent Auto 2.6 % (0.0-7.0); Hematocrit 37.5 % (33.0-51.0); Hemoglobin* 11.7 gm/dL (12.0-16.0); Immature Granulocytes Abs Auto 0.08 K/uL (0.00-0.30); Immature Granulocytes Pct Auto 0.9 %; Lymphocytes Percent Auto 18.6 % (20-44); Mean Corpuscular HGB Conc 31 gm/dL (32-36); Mean Corpuscular Hemoglobin 29 pg (26-34); Mean Corpuscular Volume 94 fL (80-100); Monocytes Percent Auto 4.8 % (0.0-11.0); Neutrophils Percent Auto 72.5 % (42.0-72.0); Platelet Count* 209 K/uL (140-440); RDW Coefficient of Variation % 13.4 % (11.5-15.5); Red Blood Count 4.01 m/uL (4.00-5.20); White Blood Count* 8.49 K/uL (4.50-11.00)
--- OUTSIDE RECORDS SUMMARY | 2024-07-04 09:48 | XMS_ITS | Clinical Summary ---
Author Organization [facility] Address [address] [place] [address] Care Team Providers Care Television Installer Name Role Phone Elsewhere, Pcp Primary Care Provider Unavailabl e Source Comments Patient records contain information from all sites at [facility]. For routine questions regarding patient records, call [phone] during business hours, M-F 8:00 AM - 5:00 PM Central Time. Record requests for emergency care only can be directed to [phone] at any time.[facility] Allergies Active Allergy Reactions Criticality Noted Date [...] Sex Assigned at Female 06/02/2018 2:11 PM VACUUM SPINDLE SANDER Legal Sex Female 5:08 AM VACUUM SPINDLE SANDER Gender Identity Female 06/02/2018 2:11 PM VACUUM SPINDLE SANDER Sexual Orientation Choose not to disclose 2018 2:11 PM VACUUM SPINDLE SANDER Last Filed Vital Signs Vital Sign Reading [...] this topic Medical Devices Implanted Type Area Document Management Specialist Device Identifier Shelf Expiration Date Model / Serial / Lot Ear Implant- [id number] Implanted:11/24 (Quantity not on file) Ear Implant Ear [facility] Bernice Vega TORP Plasti-pore [id number] / / [id number] Description:[facility] [place], [place]. Ear implant-Vega TOPR Plasti-pore MRI Safe Procedures Procedure Name Priority Date/Time Associated Diagnosis Comments THYROID-STIMULATING HORMONE-SENSITIVE (S-TSH) Routine 10/27/2018 3:42 PM CDT Hypothyroidism Primary BASIC METABOLIC PANEL, S/P Routine 03/11/2018 1:58 PM CDT Dizziness Diplopia LIPID PANEL, S Routine 06/10/2016 10:40 AM VACUUM SPINDLE SANDER from Last 3 Months or Most Recently Relevant to Health Maintenance Results * (ABNORMAL) S-TSH (Thyroid-Stimulating Hormone - Sensitive) (10/27/2018 3:42 PM CDT) TSH, Sensitive 10.7(H) 0.3 - 4.2 mIU/L 10/27/2018 5:20 PM CDT Comment: Biotin has been identified by the cannery tender engineer as a potential interfering substance. Higher concentrations [...] BLOOD ADD-ON Final Result [facility] [id number] [place] [address], [facility] * Basic Metabolic Panel (03/11/2018 1:58 [...] the 2009 CKD_EPI creatinine equation. eGFR-Black/Afri can [place] >90 >=60 mL/min/BSA 03/11/2018 2:29 PM CDT [...] BLOOD ADD-ON Final Result Performing Organization Address City/State/[facility] Co de Phone Number [facility] [address] * (ABNORMAL) Lipid Panel (06/10/2016 10:40 AM VACUUM SPINDLE SANDER) [facility] Cholesterol, Total 275(H) <=199 MGDL POWERCHART [...] for FH and FDB is available through [facility] [employer]: FH/ADH Genetic Reflex Panel (test ADHP). Acquired (non-genetic) causes of markedly increased LDL cholesterol include cholestatic liver disease due to the presence of LpX. If a genetic form of hypercholesterolemia is suspected, family studies including biochemical testing for lipids (total cholesterol,triglycerides, LDL cholesterol and HDL cholesterol) are recommended. Please contact the laboratory at or the on-line test catalog at [facility] for information about how to order these tests or to speak with a genetic counselor. Further interpretation would require clinical information. Total Cholesterol/HDL Ratio 5 POWERCHART Blood 06/10/2016 10:4 0 AM VACUUM SPINDLE SANDER us Ana Chery M.D. LAB BLOOD ADD-ON Final Re sult POWERCHART from Last 3 Months or Most Recently Relevant to Health Maintenance Insurance [facility] Care Teams Television Installer Relationship Specialty Start Date End Date Elsewhere, Pcp PCP - General Internal Medicine 12/04/18
--- OUTSIDE RECORDS SUMMARY | 2024-07-04 09:48 | XMS_ITS | CCD ---
Author Organization Unknown Care Team Providers Care Shipping Lead Name Role Phone [employer] Owner Operator Truck [place], [place] Primary Care Provider Unava ilable Unavailable Chronic Care Management Unavaila ble Summary Purpose DataExchange Insurance Providers Payer name Policy type / Coverage type Covered green party ID Effective Begin Date Effective End Date [facility] Commercial Insurance [id number] Unkn own Family History Family History data not found Medication Administered No Medication Administered data Reason For Visit No Reason For Visit data
--- OUTSIDE RECORDS SUMMARY | 2024-07-04 09:48 | XMS_ITS | Clinical Summary ---
Author Organization [facility] Address [address] , [address] [place] [address] Phone Care Team Providers Care Shredded Filler Cutter Operator Name Role Phone Son Jara MD Conditions or Problems Problem Name Problem Code Onset Date Status Entry Date Provider Comment Standard Description Annotate Involuntary movements 447378630 (SNOMED CT) Active Son Jara MD Abnormal involuntary movement Tremor [id number] (SNOMED CT) Active Son Jara MD Tremor Medications Medication Instructions Start Date Stop Date Generic Name ND Provider SOLIFENACIN SUCCINATE 10 MG TABS Take 1 Tablet (10 mg) by mouth once daily. solifenacin (VESICARE) 10 mg tablet [id number] Son Jara MD PROCHLORPERAZINE MALEATE 5 MG TABS Take 1 Tablet (5 mg) by mouth every 8 hours if needed for Nausea/Vomitin g. prochlorperazine (COMPAZINE) 5 mg tablet [id number] Son Jara MD OMEPRAZOLE 20 MG CPDR Take 2 Capsules (40 mg) by mouth once daily before a meal. omeprazole (PriLOSEC) 20 mg Delayed-Release capsule [id number] Son Jara MD MONTELUKAST SODIUM 10 MG TABS Take 1 Tablet (10 mg) by mouth at bedtime. montelukast (SINGULAIR) 10 mg tablet [id number] Son Jara MD mirabegron EXTENDED-release (MYRBETRIQ) 50 mg tablet Take 1 Tablet (50 mg) by mouth once daily. mirabegron EXTENDED-release (MYRBETRIQ) 50 mg tablet Son Jara MD MECLIZINE HCL 25 MG TABS Take 0.5 Tablets (12.5 mg) by mouth 3 times daily if needed for Nausea/Vomitin g. meclizine (ANTIVERT) 25 mg tablet [id number] Son Jara MD LEVOTHYROXINE SODIUM 175 MCG TABS Take 1 Tablet (175 mcg) by mouth before breakfast. levothyroxine (SYNTHROID) 175 mcg tablet [id number] Son Jara MD FEXOFENADINE HCL 180 MG TABS Take 1 tablet by mouth once daily with a meal. fexofenadine (ROJAS) 180 mg tablet [id number] Son Jara MD DIPHENHYDRAMINE HCL 25 MG CAPS Take 1 capsule by mouth each time if needed. diphenhydrAMINE (BENADRYL) 25 mg capsule [id number] Son Jara MD VITAMIN D 50 MCG (2000 UT) TABS Take 2,000 units by mouth. cholecalciferol, Vitamin D3, 2,000 unit tablet [id number] oSn Jara MD BUPROPION HCL ER (XL) 150 MG [id number] null buPROPion (WELLBUTRIN XL) 150 mg Extended-Release tablet [id number] Son Jara MD IPRATROPIUM-ALBUTE ROL 0.5-2.5 (3) MG/3ML SOLN Inhale 3 mL via a nebulizer 2 times daily if needed for Shortness of Breath 1st choice or Wheezing 1st choice. albuterol-ipratrop ium (DUONEB) (2.5-0.5 mg) in 3 mL NEBULIZA [id number] Son Jara MD ALBUTEROL SULFATE HFA 108 (90 Base) MCG/ACT AERS Inhale 1-2 Puffs by mouth every 4 hours if needed for Shortness of Breath 1st choice. albuterol HFA (ProAir HFA) 90 mcg/actuation inhaler [id number] Son Jara MD ALBUTEROL SULFATE (2.5 MG/3ML) 0.083% NEBU Inhale 3 mL via a nebulizer every 6 hours if needed for Shortness Of Breath or Wheezing. albuterol (PROVENTIL) 0.083 % neb solution [id number] Son Jara MD SYMBICORT 160-4.5 MCG/ACT AERO null Symbicort 160-4. 5 mcg/actuation (160-4.5 mcg each actuation) [id number] Son Jara MD PAROXETINE HCL 40 MG TABS null PARoxetine (PAXI L) 40 mg tablet [id number] Son Jara MD Medications Administered No information [...] Date ORDERS EEG Sleep Deprived (41min) 2 [id number]-93180 EEG EXTENDED 41-60mins (END) [id number] Documentation of current medicatio ns ORDERS Patient Instructions Vital Signs No information available. Immunizations No information available. Advance Directives No information available.
[2024-07-04 09:49] LABS: Lactate* 0.8 mmol/L (0.5-1.9)
[2024-07-04 09:51] LABS: PCO2 VBG 68 mmHG (40-50)
[2024-07-04 09:59] LABS: Slide Review Reflex No
[2024-07-04 10:04] LABS: Chloride* 96 mmol/L (96-114); Potassium* 4.1 mmol/L (3.6-5.1); Sodium* 138 mmol/L (135-149)
[2024-07-04 10:07] LABS: Anion Gap 2 mEq/L (7-15); Blood Urea Nitrogen* 13 mg/dL (5-24); Carbon Dioxide* 40 mmol/L (20-32); Creatinine* 0.6 mg/dL (0.5-1.5); Est. Creatinine Clearance* 204.18; Estimated Glomerular Filt Rate 111 ml/min; Glucose* 120 mg/dL (60-115)
[2024-07-04 10:08] LABS: Calcium* 9.1 mg/dL (8.4-10.6)
[2024-07-04 10:30] LABS: Troponin I* < 0.01 ng/mL (0.01-0.04)
[2024-07-04 10:41] LABS: PCR FLU A Negative PCR FLU A (Negative); PCR FLU B Negative PCR FLU B (Negative); PCR RSV Negative PCR RSV (Negative); SARS PCR* Negative SARS-CoV-2 (Negative)
[2024-07-04 10:42] LABS: D Dimer Quantitative* 0.68 ug/ml (0.00-0.50)
[2024-07-04] MEDS: IPRAT-ALBUT 0.5-2.5 MG/3 ML NEB 1 NEB IH (10:46)
[2024-07-04] MEDS: predniSONE 20 MG TABLET 40 MG PO (11:15)
[2024-07-04] MEDS: AZITHROMYCIN 250 MG TABLET 500 MG PO (11:15)
== END 2024-07-04 11:37 | disposition home or self-care (01) ==
PROVIDERS: Emergency Provider Internal Medicine; PCP Family Medicine
DX: J44.1 Chronic obstructive pulmonary disease with (acute) exacerbation (principal)
CPT/HCPCS: 36415; 36600; 71046; 80048; 82803; 83605; 84484; 85025; 85379; 87631; 99283; 99284; A9270; J7512

== ENCOUNTER 2024-07-09 01:23 | Outpatient (CLI) | payer MEDICARE, SELFPAY | END 2024-07-09 01:24 | disposition home or self-care (01) | LOC: AMB 07-10 22:57 | PROVIDERS: PCP Family Medicine; Visit Provider Internal Medicine | DX: R45.851 Suicidal ideations (principal) | CPT/HCPCS: A0425; A0429 ==

== ENCOUNTER 2024-07-09 01:42 | Emergency (ER) | payer MEDICARE, SELFPAY ==
--- OUTSIDE RECORDS SUMMARY | 2024-07-09 01:45 | XMS_ITS | Clinical Summary ---
Author Organization [employer] [facility] [employer] [facility] Address [place], [place] [address] Care Team Providers Care Developing Machine Operator Name Role Phone Paolo Limon MD Unavailable Talon Durham MD Unavailable [phone] Laura Gardner PsyD, Unavailable [phone] Geronimo Lamb MD Primary Care Provider Luis Santos DO Unavailable [phone] Allergies Active Allergy Reactions Criticality Noted Date [...] OF BREATH 1 Each 03/28/20 24 Active levETIRAcetam (KEPPRA) 750 mg tabletIndication [...] Expectoration . 20 Tablet 06/29/19 25 Active albuterol-ipratr opium (DUONEB) (2.5-0.5 mg) in 3 mL NEBULIZATION solutionIndicati ons:Moderate persistent asthma, uncomplicated Inhale 3 mL via a nebulizer three times daily. 1080 mL 3 07/05/19 25 Active montelukast (SINGULAIR) 10 mg tabletIndication [...] 10 03/27/20 24 2024 Discontinued(* Medication adjustment) spiriva 18 mcg inhalation capsuleIndicatio ns:COPD, severe (HC) Inhale 1 Capsule (18 mcg) by mouth once daily. Using a SPRIVA HANDIHALER fischer the capsule, then by mouth breathe in the powder. Inhale twice from the same capsule for full dose. 90 Each 2 04/06/20 24 2024 Discontinued(* Medication adjustment) albuterol 0.083% (2.5 mg/3 mL) neb solutionIndicati ons:Moderate persistent asthma, uncomplicated Inhale 3 mL (2.5 mg) via a nebulizer three times daily. 90 mL 10 06/29/19 25 2024 Discontinued(* Medication adjustment) Active Problems Problem Noted Date Diagnosed Date Vocal cord dysfunction 07/05/2024 Chronic respiratory failure with hypoxia 025 Urinary incontinence 11/13/2023 Heart failure with preserved [...] 02/23/200911/2011 Dizziness 06/03/2024 Overview (04/23/2021): Eval by [facility] neurology 2018. Thought to be functional. Referred to psychiatry. Encounters Date Type Department Care Team Description 07/05/2024 2:30 PM CAKE PUNCHER Office Visit [facility] [address] [place] [address] Geronimo Lamb MD Follow Up; ER Follow up ([facility], 06/16/2024 and 07/04/2024) 07/05/2024 Travel 07/04/[address] [facility] SERVICES Scanner 1 scan: (1-Ord) [facility], CHEST 2V, 07/04/2024 06/29/2024 Telephone [facility] [address] [facility] [place] [address] Geronimo Lamb MD Medication Management 06/29/2024 Refill [facility] [address] [place] [address] Geronimo Lamb MD Refill Request (Montelukast) 06/16/2024 Orders Only [facility] Scanner 1 scan: (1-Ord) [place], CT CHEST WO CON, 06/16/2024 06/16/2024 Orders Only [facility] SERVICES Scanner 1 scan: (1-Ord) [place], HEAD/BRAIN WO CON, 06/16/2024 06/11/2024 9:00 AM CAKE PUNCHER - 06/11/2024 11:59 PM CAKE PUNCHER Hospital Encounter [facility] [address] [place] [address] Luis Santos, DO 06/04/2024 9:04 AM CAKE PUNCHER - 06/04/2024 11:59 PM CAKE PUNCHER Hospital Encounter [facility] [address] [place] [place] [address] Luis Santos, DO 06/03/2024 2:05 PM CAKE PUNCHER Office Visit [facility] [address] [place] [address] Geronimo Lamb MD ER Follow up ([facility], 05/24/2024, pneumonia ) 06/03/2024 Travel 05/25/2024 Orders Only [address] [address] Geronimo Lamb MD <No scans attached> 05/24/2024 Orders Only [facility] Scanner 1 scan: (1-Ord) [facility], XR CHEST 2V, 05/24/2024 05/17/2024 Refill [facility] [address] [place] [address] Geronimo Lamb MD Refill Request (Prevail XL [id number]) 05/14/2024 11:15 AM CAKE PUNCHER Office Visit [address] [address] Fercho Salcedo MD Hospital F/U (ACUTE CHOLECYSTISIS- feeling better ) 05/14/2024 Refill [facility] [address] [place] [address] Geronimo Lamb MD Refill Request (Protective Underwear Ex-large) 05/14/2024 Travel 05/12/2024 2:00 PM CAKE PUNCHER Office Visit [facility] [address] [place] [address] Paolo Limon MD Sleep Follow-up 05/12/2024 Travel 05/12/2024 Patient Outreach [facility] [address] [place] [address] Alexandria Pulido, RN Primary RN Care Management; Hospital F/U (LACE 43) 05/09/2024 9:50 PM CAKE PUNCHER - 05/11/2024 2:49 PM CAKE PUNCHER Hospital Encounter [address] [address] s, Hospitalist [facility] Aron Birch, Discharge Disposition: Home Self Care 05/09/2024 Orders Only [facility] Scanner 1 scan: (1-Ord) [facility], US GALLBLADDER, 05/09/2024 05/09/2024 Orders Only [facility] Scanner 1 scan: (1-Ord) [facility], ABDOMEN PELVIS W/CONTRAST, 05/09/2024 05/05/2024 3:20 PM CAKE PUNCHER Office Visit [facility] [address] [place] [address] Geronimo Lamb MD ER Follow up ([facility], 04/21/2024, syncope ); DME Supply [facility] - [employer]) 05/05/2024 Telephone [facility] [address] [place] [address] Geronimo Lamb MD Follow Up 05/05/2024 Travel 04/23/2024 Refill [facility] [address] [place] [address] Geronimo Lamb MD Refill Request (Levothyroxine) 04/21/2024 Telephone [facility] [address] [place] [address] Geronimo Lamb MD Prior Authorization (tirzepatide, weight loss, (Zepbound) 2.5 mg/0.5 mL pen - DENIED/EXCLUDED) 04/15/2024 Telephone [facility] [address] [place], [place] [address] Geronimo Lamb MD DME Supply 04/08/2024 12:43 PM CAKE PUNCHER - 04/08/2024 11:59 PM CAKE PUNCHER Hospital Encounter [facility] [address] [facility] [place] [address] Luis Santos, Shazia Mckeon, ELECTRICAL ENGINEERING INTERN Wheezing 04/08/2024 Telephone [facility] [address] [facility] [place] [address] Shazia Li, ELECTRICAL ENGINEERING INTERN ELECTRICAL ENGINEERING INTERN (Request of orders) 04/08/2024 Travel from Last 3 Months Immunizations Name Administration Dates Next Due COVID-19 VACCINE SPIKEVAX (M ODERNA 50MCG/0.5ML) 12YO+ PFS 03/19/2023 COVID-19 vaccine ([employer] NTech 30mcg/0.3mL) 12YO+ BIVALENT PF, MDV 05/01/2022 [...] row info)? No 05/11/2024 Interpersonal Safety Abuse 12 - 18 Not on file 05/11/2024 Interpersonal Safety Ambulatory Vulnerability No t on file 05/11/2024 Utilities Answer Date Recorded Do you have trouble paying f or utilities (for example, heat, electricity, water, phone)? 1 05/05/2024 Comments No Sex and Gender Information Value Date Recorded Sex Assigned at Not on file Legal Sex Female 6:31 AM CAKE PUNCHER Gender Identity Not on file Sexual Orientation Not on file Obstetrics History Last Filed Vital Signs Vital Sign Reading Time Taken Comments Blood Pressure 152/87 07/05/2024 2:36 PM CAKE PUNCHER Pulse 109 07/05/2024 2:36 PM CAKE PUNCHER Temperature 36.6 C (97.9 F) 05/11/2024 8:03 AM CAKE PUNCHER Respiratory Rate 18 05/11/2024 8:03 AM CAKE PUNCHER Oxygen Saturation 92% 07/05/2024 2:3 6 PM CAKE PUNCHER 2L via nasal cannula Inhaled Oxygen Concentration - - Weight 113.7 kg (250 lb 9.6 oz) 07/05/2024 2:36 PM CAKE PUNCHER Height 142.2 cm (4' 8) 05/12/2024 2:07 PM CAKE PUNCHER Body Mass Index 56.18 05/12/2024 2:07 PM CAKE PUNCHER Plan of Treatment Upcoming Encounters Date Type Department Care Team (Late st Contact Info) Description 07/09/2024 9:00 AM CAKE PUNCHER Appointment [facility] [address] [place] [address] 07/13/2024 11:20 AM CAKE PUNCHER Office Visit [facility] [address] [place] [address] Geronimo Lamb MD [address] [place] [address] 07/20/2024 11:00 AM CAKE PUNCHER Office Visit [facility] [address] [place] [address] Heather Cruz PA [address] [place] [address] 07/21/2024 10:30 AM CAKE PUNCHER Office Visit [facility] [address] [place] [address] Geronimo Lamb MD [address] [place] [address] 07/23/2024 9:00 AM CAKE PUNCHER Appointment [facility] [address] [place] [address] 08/06/2024 9:15 AM CDT Appointment [facility] [address] [place] [address] 08/18/2024 12:00 PM CDT Office Visit [facility] [address] [place] [address] Sadiq Lujan PA [address] [facility] [address] [place] [address] 08/19/2024 3:00 PM CDT Office Visit [facility] [address] [place] [address] Paolo Limon MD [address] [place] [address] 08/25/2024 10:00 AM CDT Office Visit [facility] [address] [place] [address] Paolo Limon MD [address] [place] [address] Health Maintenance Due Date Last Done Comments [...] Priority Date/Time Associated Diagnosis Comments SCAN-RADIOLOGY REPORT 07/04/2024 12:00 AM CAKE PUNCHER SCAN-CT INTERPRETATION 5 12:00 AM CAKE PUNCHER SCAN-CT INTERPRETATION 5 12:00 AM CAKE PUNCHER COVID/FLU/RSV PANEL Routine 06/03/2024 2 :37 PM CAKE PUNCHER Flu-like symptoms SCAN-RADIOLOGY REPORT 05/24/2024 12:00 AM CAKE PUNCHER NM HEPATOBILIARY IMAGING RICHARD 05/10/2024 1:58 PM CAKE PUNCHER SCAN CORRESP-LABORATORY RESULTS 05/10/2024 10:49 AM CAKE PUNCHER SCAN CORRESP-IMAGING 05/10/2024 10:43 AM CAKE PUNCHER HEPATIC FUNCTION PANEL Early AM 6:26 AM CAKE PUNCHER PROTIME-INR Early AM 05/10/2024 6:26 AM CAKE PUNCHER WHITE BLOOD COUNT Early AM 05/10/2024 6:2 6 AM CAKE PUNCHER HEMOGLOBIN Early AM 05/10/2024 6:26 AM CAKE PUNCHER PLATELET COUNT Early AM 05/10/2024 6:26 AM CAKE PUNCHER SODIUM Early AM 05/10/2024 6:26 AM CAKE PUNCHER POTASSIUM Early AM 05/10/2024 6:26 AM CAKE PUNCHER CREATININE Early AM 05/10/2024 6:26 AM CAKE PUNCHER SCAN-ULTRASOUND REPORT 12:00 AM CAKE PUNCHER SCAN-CT INTERPRETATION 4 12:00 AM CAKE PUNCHER ELECTRICAL ENGINEERING INTERN IMAGE CAPTURE Routine 04/08/2024 1:2 6 PM CAKE PUNCHER LIPID PANEL W REFLEX MEASURED LDL Routine 01/20/2024 4:00 PM CDT Hyperlipidemia, unspecified hyperlipidemia type ANTI HIV 1/2 Routine 05/01/2022 4:36 PM CAKE PUNCHER Encounter for screening for HIV ANTI HCV Routine 12/05/2021 9:30 AM CDT Need for hepatitis C screening test SCAN-MAMMOGRAPHY REPORT 02/24/2019 12:00 AM CDT from Last 3 Months or Most Recently Relevant to Health Maintenance Results * SCAN-RADIOLOGY REPORT (07/04/2024 12:00 AM CAKE PUNCHER) Only the most recent of2 resultswithin the time period is included. Anatomical Region Laterality Modality Other us Scanner OTHER Final Result * SCAN-CT INTERPRETATION (06/16/2024 12:00 AM CAKE PUNCHER) Only the most recent of3 resultswithin the time period is included. Anatomical Region Laterality Modality Other us Scanner OTHER Final Result * COVID/FLU/RSV PANEL (06/03/2024 2:37 PM CAKE PUNCHER) COVID 19 [facility] Negative Negative 06/03/2024 11:44 PM CAKE PUNCHER [facility] Comment:All PCR tests are lopez bject to false negative result due to variability in viral load and collection technique. A negative result does not rule out a SARS-CoV-2 infection. Clinical correlation required. INFLUENZA A PCR Negative 5 11:44 PM CAKE PUNCHER [facility] INFLUENZA B PCR Negative 5 11:44 PM CAKE PUNCHER [facility] Respiratory Syncytial Virus Negative 06/03/2024 11:44 PM CAKE PUNCHER [facility] Swab NASOPHARYNGEAL SWAB / Unknown Non-Blood / Unknown 06/03/2024 2:37 PM CAKE PUNCHER 06/03/2024 2:38 PM CAKE PUNCHER Geronimo Lamb MD MICROBIOLOGY Final Result [facility] [address] [place] [address], [place] * NM HEPATOBILIARY IMAGING (05/10/2024 1:58 PM CAKE PUNCHER) Anatomical Region Laterality Modality LIVER Nuclear Medicine 05/10/2024 1:58 PM CAKE PUNCHER Impressions 05/10/2024 2:21 PM CAKE PUNCHER Negative for acute cholecystitis. Narrative 05/10/2024 2:21 PM CAKE PUNCHER For Patients: As a result of the Cures Act, medical imaging exams and procedure reports are released immediately into your electronic medical record. You may view this report before your referring provider. If you have questions, please contact your health care provider. EXAM: [place] HEPATOBILIARY IMAGING LOCATION: [facility] MEDICAL [facility]AG[facility] DATE: 05/10/2024 INDICATION: Right [...] please contact your health care provider. EXAM: [place] HEPATOBILIARY IMAGING LOCATION: [facility] DATE: 05/10/2024 INDICATION: Right upper quadrant abdominal pain COMPARISON: Abdominal ultrasound dated 05/09/2024 TECHNIQUE: Tc-99m Mebrofenin 8.0 mCi, IV. Anterior planar imaging of theabdomen. FINDINGS: Normal radionuclide activity in liver, gallbladder, bile ducts,and small bowel. No evidence of cystic or common duct obstruction orintrinsic liver disease. IMPRESSION: Negative for acute cholecystitis. us Eva JASON NM Final Res ult * SCAN CORRESP-LABORATORY RESULTS (05/10/2024 10:49 AM CAKE PUNCHER) Narrative 05/10/2024 10:49 AM CAKE PUNCHER Ordered by an unspecified provider. Other Clinical Staff OTHER Final Resul t * SCAN CORRESP-IMAGING (05/10/2024 10:43 AM CAKE PUNCHER) Anatomical Region Laterality Modality Other Narrative 05/10/2024 10:43 AM CAKE PUNCHER Ordered by an unspecified provider. Other Clinical Staff OTHER Final Resul t * PLATELET COUNT (05/10/2024 6:26 AM CAKE PUNCHER) PLATELET COUNT 202 140 - 440 thou/cu mm 05/10/2024 6:48 AM CAKE PUNCHER [facility] MPV 10.1 6.5 - 11.0 fL 05/10/2024 6:[address] [facility] Blood BLOOD SPECIMEN / Unknown Venipuncture / Unknown 05/10/2024 6:26 AM CAKE PUNCHER 05/10/2024 6:37 AM CAKE PUNCHER Aron Birch DO HEMATOLOGY Final Result [facility] SENDOUT [place] ZIP [address] [place] [address] * WHITE BLOOD COUNT (05/10/2024 6:26 AM CAKE PUNCHER) [facility] WHITE BLOOD COUNT 7.6 4.5 - 11.0 thou/cu mm 05/10/2024 6:48 AM CAKE PUNCHER [facility] NRBC 0.0 % 05/10/2024 6:48 AM CAKE PUNCHER [facility] ABS NRBC 0.0 thou /cu mm 05/10/2024 6:[address] [facility] Blood BLOOD SPECIMEN / Unknown Venipuncture / Unknown 05/10/2024 6:26 AM CAKE PUNCHER 05/10/2024 6:37 AM CAKE PUNCHER Aron Birch DO HEMATOLOGY Final Result [facility] SENDOUT [place] [place] [address] * HEMOGLOBIN (05/10/2024 6:26 AM CAKE PUNCHER) HEMOGLOBIN 12.4 12.0 - 16.0 g/dL 05/10/2024 6:48 AM CAKE PUNCHER [facility] MCV 92 80 - 100 fL 05/10/2024 6:[address] [facility] Blood BLOOD SPECIMEN / Unknown Venipuncture / Unknown 05/10/2024 6:26 AM CAKE PUNCHER 05/10/2024 6:37 AM CAKE PUNCHER Aron Birch DO HEMATOLOGY Final Result [facility] SENDOUT [place] [place] [address] * SODIUM (05/10/2024 6:26 AM CAKE PUNCHER) Pathologist [facility] SODIUM 143 136 - 145 mmol/L 05/10/2024 7:[address] [facility] Blood BLOOD SPECIMEN / Unknown Venipuncture / Unknown 05/10/2024 6:26 AM CAKE PUNCHER 05/10/2024 6:37 AM CAKE PUNCHER Aron Piero Eyal ALEJANDRO CHEMISTRY Final Result [facility] [place]ENDOUT [place]IP [address] [place] [address] * POTASSIUM (05/10/2024 6:26 AM CAKE PUNCHER) Pathologist [facility] POTASSIUM 3.8 3.5 - 5.1 mmol/L 05/10/2024 7:[address] [facility] Blood BLOOD SPECIMEN / Unknown Venipuncture / Unknown 05/10/2024 6:26 AM CAKE PUNCHER 05/10/2024 6:37 AM CAKE PUNCHER Aron Birch DO CHEMISTRY Final Result [facility] SENDOUT [place]IP [address] [place] [address] * CREATININE (05/10/2024 6:26 AM CAKE PUNCHER) Pathologist [facility] eGFR >90 >90 mL/min/1.7 3m2 05/10/2024 7:[address] [facility] Comment:As of 2021, eG FR is calculated by the CKD-EPI creatinine equation without race adjustment. eGFR can be influenced by muscle mass, exercise, and diet. The reported eGFR is an estimation only and is only applicable if the renal function is stable. CREATININE 0.73 0.50 - 0.90 mg/dL 05/10/2024 7:[address] [facility] Blood BLOOD SPECIMEN / Unknown Venipuncture / Unknown 05/10/2024 6:26 AM CAKE PUNCHER 05/10/2024 6:37 AM CAKE PUNCHER Aron Birch DO CHEMISTRY Final Result Performing Organization Address [facility] Co de Phone Number [facility] SENDOUT INTERNAL ZIP [address] [place] [address] * PROTIME-INR (05/10/2024 6:26 AM CAKE PUNCHER) [facility] INR 1.1 <1.3 05/10/2024 6:[address] [facility] PROTIME 12.2 10.6 - 12.4 sec 05/10/2024 6:[address] [facility] Blood BLOOD SPECIMEN / Unknown Venipuncture / Unknown 05/10/2024 6:26 AM CAKE PUNCHER 05/10/2024 6:37 AM CAKE PUNCHER [facility] - 05/10/2024 6:52 AM CAKE PUNCHER Therapeutic Range 2.0-3.0 for most anticoagulated patients [...] UFH. Aron Birch DO HEMATOLOGY Final Result Performing Organization Address [facility] Co de Phone Number [facility] SENDOUT INTERNAL ZIP [address] [address] [place] [address] * (ABNORMAL) HEPATIC FUNCTION PANEL (05/10/2024 6:26 AM CAKE PUNCHER) ALBUMIN 3.6(L) 4.0 - 4.9 g/dL 05/10/2024 7:[address] [facility] PROTEIN,TOTAL 6.5 6.0 - 8.0 g/dL 05/10/2024 7:[address] [facility] BILIRUBIN,TOTAL 0.4 0.0 - 1.2 mg/dL 05/10/2024 7:[address] [facility] BILIRUBIN,DIRECT 0.2 0.0 - 0.2 mg/dL 05/10/2024 7:[address] [facility] BILIRUBIN,INDIRE CT 0.2 0.2 - 0.8 mg/dL 05/10/2024 7:[address] [facility] ALK PHOSPHATASE 82 35 - 104 IU/L 05/10/2024 7:[address] [facility] ALT (SGPT) 30 10 - 35 IU/L 05/10/2024 7:[address] [facility] AST (SGOT) 26 10 - 35 IU/L 05/10/2024 7:[address] [facility] Blood BLOOD SPECIMEN / Unknown Venipuncture / Unknown 05/10/2024 6:26 AM CAKE PUNCHER 05/10/2024 6:37 AM [facility] Aron Birch DO CHEMISTRY Final Result [facility] SENDOUT [place] ZIP [address] [place] [address] * SCAN-ULTRASOUND REPORT (05/09/2024 12:00 AM CAKE PUNCHER) Anatomical Region Laterality Modality Other us Scanner OTHER Final Result * (ABNORMAL) LIPID PANEL W REFLEX MEASURED LDL (01/20/2024 4:00 PM CDT) CHOLESTEROL,TOTAL 261(H) 100 - 199 mg/dL 01/21/2024 1:44 PM CDT [facility] Comment: Cholesterol, Total Reference Ranges Desirable <200 mg/dL Borderline 200-239 mg/dL High >=240 mg/dL TRIGLYCERIDES 252(H) <150 mg/dL 01/21/2024 1:44 PM CDT [facility] HDL CHOLESTEROL 50 >40 mg/dL 1:44 PM CDT [facility] NON-HDL CHOLESTEROL 211(H) <145 mg/dl 01/21/2024 1:44 PM CDT [facility] CHOL/HDL RATIO 5.22(H) <4.50 01/21/2024 1:44 PM CDT [facility] LDL CHOLESTEROL 161(H) <=130 mg/dL 01/21/2024 1:44 PM CDT [facility] VLDL CHOLESTEROL 50(H) <=30 mg/dL 01/21/2024 1:44 PM CDT [facility] PROVIDER ORDERED STATUS RANDOM 01/21/2024 1:44 PM CDT [facility] Blood BLOOD SPECIMEN / Unknown Venipuncture / Unknown 01/20/2024 4:00 PM CDT 01/20/2024 4:00 PM CDT us Geronimo Lamb MD CHEMISTRY Final Result [facility] [address] [place] [address], [place] * ANTI HIV 1/2 (05/01/2022 4:36 PM CAKE PUNCHER) HIV-1/HIV-2 ANTIBODY Non-Reacti ve Non-Reacti ve 05/04/2022 9:59 PM CAKE PUNCHER [facility] Comment:HIV-1 p24 and HIV-1/ HIV-2 Ab not detected. Blood BLOOD SPECIMEN / Unknown Butterfly / Unknown 05/01/2022 4:36 PM CAKE PUNCHER 05/01/2022 4:41 PM CAKE PUNCHER us Geronimo Lamb MD SEND OUTS Final Result [facility] [address] [place] [address], [place] * ANTI HCV (12/05/2021 9:30 AM CDT) HEPATITIS C ANTIBODY Non-React shikha Non-React shikha 12/05/2021 9:16 PM CDT [facility] Comment:Antibodies to HCV no t detected; does not exclude the possibility of exposure to HCV. Blood BLOOD SPECIMEN / Unknown Venipuncture / Unknown 12/05/2021 9:30 AM CDT 12/05/2021 9:33 AM CDT us Geronimo Lamb MD SEND OUTS Final Result [facility] [address] [place] [address], [place] * SCAN-MAMMOGRAPHY REPORT (02/24/2019 12:00 AM CDT) Anatomical Region Laterality Modality Other us Scanner OTHER Final Result from Last 3 Months or Most Recently Relevant to Health Maintenance Insurance [facility] MEDICARE PART A HB ONLY Advance Directives * Full Code (Latest Code Status on File) Date Activated Date Inactivated Comments 05/09/2024 10:07 PM 05/11/2024 4:49 PM Question Answer Comments Code Status Discussion: Reviewed Preferences Care Teams Developing Machine Operator Relationship Specialty Start Date End Date Geronimo Lamb MD [address] [place] [address] PCP - General Family Practice 04/23/21 Paolo Limon MD Sleep Medicine 10/28/11 Talon Durham MD Neurology Neurology 11/26/11 Laura Gardner PsyD, [facility] Psychology 09/14/13 [place] [address] [place] [address] Pulmonology Pulmonary Medicine 01/22/24
--- OUTSIDE RECORDS SUMMARY | 2024-07-09 01:45 | XMS_ITS | Clinical Summary ---
Author Organization [facility] Address [address] , [address] [place] [address] Phone Care Team Providers Care Retail Specialist Name Role Phone Son Jara MD Conditions or Problems Problem Name Problem Code Onset Date Status Entry Date Provider Comment Standard Description Annotate Involuntary movements [id number] (SNOMED CT) Active Son Jara MD Abnormal involuntary movement Tremor [id number] (SNOMED CT) Active Son Jara MD Tremor Medications Medication Instructions Start Date Stop Date Generic Name ND Provider SOLIFENACIN SUCCINATE 10 MG TABS Take 1 Tablet (10 mg) by mouth once daily. solifenacin (VESICARE) 10 mg tablet [id number] Son Jara MD PROCHLORPERAZINE MALEATE 5 MG TABS Take 1 Tablet (5 mg) by mouth every 8 hours if needed for Nausea/Vomitin g. prochlorperazine (COMPAZINE) 5 mg tablet [id number] Son Jara MD OMEPRAZOLE 20 MG CPDR Take 2 Capsules (40 mg) by mouth once daily before a meal. omeprazole (PriLOSEC) 20 mg Delayed-Release capsule [id number] Son Jara MD MONTELUKAST SODIUM 10 MG TABS Take 1 Tablet (10 mg) by mouth at bedtime. montelukast (SINGULAIR) 10 mg tablet [id number] Son Jara MD mirabegron EXTENDED-release (MYRBETRIQ) 50 mg tablet Take 1 Tablet (50 mg) by mouth once daily. mirabegron EXTENDED-release (MYRBETRIQ) 50 mg tablet Son Jara MD MECLIZINE HCL 25 MG TABS Take 0.5 Tablets (12.5 mg) by mouth 3 times daily if needed for Nausea/Vomitin g. meclizine (ANTIVERT) 25 mg tablet [id number] Son Jara MD LEVOTHYROXINE SODIUM 175 MCG TABS Take 1 Tablet (175 mcg) by mouth before breakfast. levothyroxine (SYNTHROID) 175 mcg tablet [id number] Son Jara MD FEXOFENADINE HCL 180 MG TABS Take 1 tablet by mouth once daily with a meal. fexofenadine (ROJAS) 180 mg tablet [id number] Son Jara MD DIPHENHYDRAMINE HCL 25 MG CAPS Take 1 capsule by mouth each time if needed. diphenhydrAMINE (BENADRYL) 25 mg capsule [id number] Son Jara MD VITAMIN D 50 MCG (2000 UT) TABS Take 2,000 units by mouth. cholecalciferol, Vitamin D3, 2,000 unit tablet [id number] Son Jara MD BUPROPION HCL ER (XL) [id number] null buPROPion (WELLBUTRIN XL) 150 mg Extended-Release tablet [id number] Son Jara MD IPRATROPIUM-ALBUTE ROL 0.5-2.5 (3) MG/3ML SOLN Inhale 3 mL via a nebulizer 2 times daily if needed for Shortness of Breath 1st choice or Wheezing 1st choice. albuterol-ipratrop ium (DUONEB) (2.5-0.5 mg) in 3 mL NEBULIZA [id number] Son Jara MD ALBUTEROL SULFATE HFA 108 (90 Base) MCG/ACT AERS Inhale 1-2 Puffs by mouth every 4 hours if needed for Shortness of Breath 1st choice. albuterol HFA (ProAir HFA) 90 mcg/actuation inhaler [id number] Son Jara MD ALBUTEROL SULFATE (2.5 MG/3ML) 0.083% NEBU Inhale 3 mL via a nebulizer every 6 hours if needed for Shortness Of Breath or Wheezing. albuterol (PROVENTIL) 0.083 % neb solution [id number] Son Jara MD SYMBICORT 160-4.5 MCG/ACT AERO null Symbicort 160-4. 5 mcg/actuation (160-4.5 mcg each actuation) [id number] Son Jara MD PAROXETINE HCL 40 MG TABS null PARoxetine (PAXI L) 40 mg tablet [id number] Son Jara MD Medications Administered No information [...] up DAVID in clinic or telemedicine Pending Order exclud ed from report: Pending order EEG Sleep Depriv ed (41min) Pending order Obtain imaging r eport Pending Order exclud ed from report: Pending order Obtain imaging r eport Pending order Patient Instruct ions Procedures Code Procedure Name Date Entry Date ORDERS Follow up DAVID in clinic or telemedicine 2 ORDERS EEG Sleep Deprived (41min) 2 [id number]-10938 EEG EXTENDED 41-60mins (END) ORDERS Obtain imaging report 02/08 ORDERS Patient Instructions [facility]-[id number] Documentation of current medicatio ns Vital Signs No information available. Immunizations No information available. Advance Directives No information available.
--- OUTSIDE RECORDS SUMMARY | 2024-07-09 01:45 | XMS_ITS | CCD ---
Author Organization Unknown Care Team Providers Care Dairy Equipment Specialist Name Role Phone Polysomnography Technician, [place] Primary Care Provider Unava ilable Unavailable Chronic Care Management Unavaila ble Summary Purpose DataExchange Insurance Providers Payer name Policy type / Coverage type Covered alliance party ID Effective Begin Date Effective End Date [facility] Commercial Insurance [id number] Unkn own Family History Family History data not found Medication Administered No Medication Administered data Reason For Visit No Reason For Visit data
--- OUTSIDE RECORDS SUMMARY | 2024-07-09 01:45 | XMS_ITS | Clinical Summary ---
Author Organization [facility] Address [address] [place] [address] Care Team Providers Care Brain Picker Name Role Phone Elsewhere, Pcp Primary Care Provider Unavailabl e Source Comments Patient records contain information from all sites at [facility]. For routine questions regarding patient records, call [phone] during business hours, M-F 8:00 AM - 5:00 PM Central Time. Record requests for emergency care only can be directed to [phone] at any time.[facility] Allergies Active Allergy Reactions Criticality [...] Sex Assigned at Female 06/02/2018 2:11 PM WATER TREATMENT PLANT MECHANIC Legal Sex Female 5:08 AM WATER TREATMENT PLANT MECHANIC Gender Identity Female 06/02/2018 2:11 PM WATER TREATMENT PLANT MECHANIC Sexual Orientation Choose not to disclose 2018 2:11 PM WATER TREATMENT PLANT MECHANIC Last Filed Vital Signs Vital Sign [...] this topic Medical Devices Implanted Type Area Cloth Mercerizing Supervisor Device Identifier Shelf Expiration Date Model / Serial / Lot Ear Implant- [id number] Implanted:11/24 (Quantity not on file) Ear Implant Ear [facility] Bernice Vega TORP Plasti-pore [id number] / / [id number] Description:[facility], [place], [place]. Ear implant-Vega TOPR Plasti-pore MRI Safe Procedures Procedure Name Priority Date/Time Associated Diagnosis Comments THYROID-STIMULATING HORMONE-SENSITIVE (S-TSH) Routine 10/27/2018 3:42 PM CDT Hypothyroidism Primary BASIC METABOLIC PANEL, S/P Routine 03/11/2018 1:58 PM CDT Dizziness Diplopia LIPID PANEL, S Routine 06/10/2016 10:40 AM WATER TREATMENT PLANT MECHANIC from Last 3 Months or Most Recently Relevant to Health Maintenance Results * (ABNORMAL) S-TSH (Thyroid-Stimulating Hormone - Sensitive) (10/27/2018 3:42 PM CDT) TSH, Sensitive 10.7(H) 0.3 - 4.2 mIU/L 10/27/2018 5:20 PM CDT Comment: Biotin has been identified by the amphibious operations officer as a potential interfering substance. Higher concentrations of biotin may be found in multivitamins, hair/nail supplements, and workout supplements. If the result does not match clinical observations, repeat testing after patient refrains from the use of supplements for at least 12 hours. Blood (Blood, Venous) 10/27/2018 3:42 PM CDT 10/27/2018 3:43 PM CDT us Deanne Tsang P.A.-C. LAB BLOOD ADD-ON Final Result [facility] [address] [place] [address], [facility] * Basic Metabolic Panel (03/11/2018 1:58 PM CDT) Potassium, S 4.0 3.6 - 5.2 mmol/L 03/11/2018 2:29 PM CDT [facility] Sodium, S 141 135 - 145 mmol/L 03/11/2018 2:29 PM CDT [facility] Chloride, S 101 98 - 107 mmol/L 03/11/2018 2:29 PM CDT [facility] Bicarbonate, S 27 22 - 29 mmol/L 03/11/2018 2:29 PM CDT [facility] Anion Gap 13 7 - 15 03/11/2018 2:29 PM CDT [facility] BUN (Blood Urea Nitrogen), S 12 6 - 21 mg/dL 03/11/2018 2:29 PM CDT [facility] Creatinine 0.62 0.59 - 1.04 mg/dL 03/11/2018 2:29 PM CDT [facility] eGFR-Non Black/ >90 >=60 mL/min/BSA 03/11/2018 2:29 PM CDT [facility] Comment: ----ADDITIONAL INFORMATION---- Estimated GFR calculated using the 2009 CKD_EPI creatinine equation. eGFR-Black/Afri can Mauritanian >90 >=60 mL/min/BSA 03/11/2018 2:29 PM CDT [facility] Comment: ----ADDITIONAL INFORMATION---- Estimated GFR calculated using the 2009 CKD_EPI creatinine equation. Calcium, Total, S 9.4 8.6 - 10.0 mg/dL 03/11/2018 2:29 PM CDT [facility] Glucose, S 95 70 - 140 mg/dL 03/11/2018 2:29 PM CDT [facility] Blood (Blood, Venous) 03/11/2018 1:58 PM CDT 03/11/2018 1:58 PM CDT Deanne Tsang P.A.-C. LAB BLOOD ADD-ON Final Result Performing Organization Address City/State/[facility] Co de Phone Number [facility] [address] * (ABNORMAL) Lipid Panel (06/10/2016 10:40 AM WATER TREATMENT PLANT MECHANIC) [facility] Cholesterol, Total 275(H) <=199 MGDL POWERCHART Comment: [...] for FH and FDB is available through [employer]: FH/ADH Genetic Reflex Panel (test ADHP). Acquired (non-genetic) causes of markedly increased LDL cholesterol include cholestatic liver disease due to the presence of LpX. If a genetic form of hypercholesterolemia is suspected, family studies including biochemical testing for lipids (total cholesterol,triglycerides, LDL cholesterol and HDL cholesterol) are recommended. Please contact the laboratory at or the on-line test catalog at [employer] for information about how to order these tests or to speak with a genetic counselor. Further interpretation would require clinical information. Total Cholesterol/HDL Ratio 5 POWERCHART Blood 06/10/2016 10:4 0 AM WATER TREATMENT PLANT MECHANIC us Ana Chery M.D. LAB BLOOD ADD-ON Final Re sult POWERCHART from Last 3 Months or Most Recently Relevant to Health Maintenance Insurance [facility] Care Teams Brain Picker Relationship Specialty Start Date End Date Elsewhere, Pcp PCP - General Internal Medicine 12/04/18
--- OUTSIDE RECORDS SUMMARY | 2024-07-09 01:45 | XMS_ITS | CCD ---
Author Organization Unknown Care Team Providers Care Glass Driller Name Role Phone Billet Assembler, [place] Primary Care Provider Unava ilable Unavailable Chronic Care Management Unavaila ble Summary Purpose DataExchange Insurance Providers Payer name Policy type / Coverage type Covered republican ID Effective Begin Date Effective End Date [facility] Commercial Insurance [id number] Unkn own Family History Family History data not found Medication Administered No Medication Administered data Reason For Visit No Reason For Visit data
[2024-07-09 01:51] VITALS: BP 143/88; PULSE 106; RESP 16; TEMP 36.4; O2SAT 90; BMI 39.1
--- NOTE | 2024-07-09 02:00 | ED.GENADULT ---
HPI - General Adult General Chief complaint: Psychiatric Problem/Disorder Stated complaint: Mental Health Time Seen by Provider: 07/09/24 02:02 History of Present Illness HPI narrative: Patient is a 49-year-old woman well known here in the emergency room who was in her usual state of health sleeping when she had a bad dream tonight. She dreamt that she may consider harming herself. She has not been harming herself and has no history of self-harm. Patient is very upset and would like to see a therapist. She has not been drinking alcohol and is otherwise in her usual state of health on supplemental oxygen. We did see her within the last week and diagnosed her his COPD exacerbation she states she has mildly improved. Again no substance abuse history. No chest pain no shortness a breath orthopnea no PND no nausea no vomiting. Related Data Home Medications ?Medication ?Instructions ?Recorded ?Confirmed albuterol sulfate 90 mcg/actuation 1 - 2 puff inhalation Q4H PRN 11/30/21 06/14/24 aerosol inhaler mirabegron 50 mg tablet,extended 50 mg PO DAILY 11/30/21 06/16/24 release 24 hr (Myrbetriq) montelukast 10 mg tablet 10 mg PO HS 11/30/21 06/16/24 omeprazole 20 mg capsule,delayed 40 mg PO DAILY 02/26/22 06/16/24 release levetiracetam 750 mg tablet 750 mg PO BID 11/25/22 06/16/24 (Keppra) cholecalciferol (vitamin D3) 50 50 mcg PO DAILY 01/30/23 06/16/24 mcg (2,000 unit) capsule paroxetine HCl 40 mg tablet 40 mg PO DAILY 01/30/23 06/16/24 levothyroxine 100 mcg tablet 100 mcg PO DAILY 10/16/23 06/16/24 potassium chloride 10 mEq 20 meq PO DAILY 10/16/23 06/16/24 tablet,extended release aluminum-mag hydroxide-simethicone 5 - 10 ml PO 5XD PRN 03/20/24 06/14/24 200 mg-200 mg-20 mg/5 mL oral susp (Maalox Advanced) dextromethorphan HBr 10 mg/5 mL 5 - 10 mg PO Q4-6H PRN 03/20/24 06/14/24 oral syrup diphenhydramine HCl 25 mg capsule 25 - 50 mg PO Q8H PRN 03/20/24 06/16/24 (Banophen) ibuprofen 200 mg capsule 200 - 400 mg PO Q4-6H PRN 03/20/24 06/16/24 loperamide 2 mg tablet 1 mg PO Q6H PRN 03/20/24 06/14/24 (Anti-Diarrheal (loperamide)) magnesium hydroxide 400 mg/5 mL 15 - 30 ml PO DAILY PRN 03/20/24 06/14/24 oral suspension (Milk of Magnesia) terbinafine HCl 1 % topical cream applic topical Q12H 03/20/24 06/14/24 Previous Rx's ?Medication ?Instructions ?Recorded albuterol sulfate 2.5 mg/3 mL 2.5 mg (3 mL) inhalation Q8H PRN 02/02/23 (0.083 %) solution for nebulization #1 mL budesonide-formoterol HFA 160 2 puff inhalation BID #1 g 02/02/23 mcg-4.5 mcg/actuation aerosol inhaler (Symbicort) furosemide 40 mg tablet 40 mg PO DAILY #30 tabs 02/02/23 tiotropium bromide 2.5 2 puff inhalation DAILY #1 g 02/02/23 mcg/actuation mist for inhalation (Spiriva Respimat) azithromycin 250 mg tablet See Rx Instructions PO .COMPLEX #6 06/14/24 tabs azithromycin 250 mg tablet See Rx Instructions PO .COMPLEX #6 07/04/24 (Zithromax) tabs prednisone 20 mg tablet 20 mg PO BID #10 tabs 07/04/24 Allergies Allergy/AdvReac Type Severity Reaction Status Date / Time azithromycin Allergy Intermediate Bloody Verified 07/04/24 09:34 Stools latex Allergy Intermediate Rash Verified 07/04/24 09:34 oxycodone Allergy Intermediate Agitated Verified 07/04/24 09:34 scopolamine Allergy Intermediate Tremors Verified 07/04/24 09:34 acetaminophen (From Percocet) Allergy Mild Verified 07/04/24 09:34 basil Allergy Rash Verified 07/04/24 09:34 Review of Systems Status of ROS: Reports: 10 or more systems reviewed and unremarkable except as noted in History and below [facility] Medical History Hypothyroidism ?E03.9 - Hypothyroidism, unspecified (ICD-10) Acute and chronic respiratory failure with hypoxia ?J96.21 - Acute and chronic respiratory failure with hypoxia (ICD-10) 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 - Unspecified convulsions (ICD-10) RODRICK (obstructive sleep apnea) ?G47.33 - Obstructive sleep apnea (adult) (pediatric) (ICD-10) ADHD ?F90.9 - Attention-deficit hyperactivity disorder, unspecified type (ICD-10) Hyperthyroidism ?E05.90 - Thyrotoxicosis, unspecified without thyrotoxic crisis or storm (ICD-10) Hydrocephalus ?G91.9 - Hydrocephalus, unspecified (ICD-10) Hyperlipidemia ?E78.5 - Hyperlipidemia, unspecified (ICD-10) Anxiety and depression ?F41.9 - Anxiety disorder, unspecified (ICD-10) ?F32.A - Depression, unspecified (ICD-10) Asthma ?J45.909 - Unspecified asthma, uncomplicated (ICD-10) Surgical History History of ear surgery ?Z98.890 - Other specified postprocedural states (ICD-10) History of strabismus surgery ?Z98.890 - Other specified postprocedural states (ICD-10) Social History Narrative: on disability since 2009; lives alone with her cat. nonsmoker, no drugs, no significant tobacco history adopted, her two adopted aunts are her family contacts. What is your current living situation?: I presently have a place to live Problems where you live: no known problems Problems where you live details: None In the past 12 months, utilities in danger of being shut off: no In past 12 months, lack of transportation kept you from medical appts, meetings, work, or getting things needed for daily living: no In the past 12 mos, have been you worried that your food would run out before you had money to buy more?: never true In the past 12 mos, the food you bought just didn't last and you didn't have money to buy more?: never true Highest level of school completed/degree received: Associate degree: academic program Smoking Status: Former smoker What tobacco products do you use: cigarettes Smoking quit date/years: <= 15 years ago Do you use any of these nicotine containing products: None Second hand tobacco smoke exposure: Yes How often do you have a drink containing alcohol: never How often do you have six or more drinks on one occasion: Never AUDIT-C Alcohol total score: 0 Non-prescribed substance use: denies use Caffeine: Yes (Pop ocassionally) How often does anyone, including family, friends and others, physically hurt you: never How often does anyone, including family, friends and others, insult or talk down to you: never How often does anyone, including family, friends and others, threaten you with harm: never How often does anyone, including family, friends and others, scream or curse at you: never service: No Exam Narrative: Exam Narrative: EXAM GENERAL: Patient appears comfortable and well. Breathing oxygen via nasal cannula. EYES: No scleral icterus. ENT: Tympanic membranes and oropharynx normal. THYROID: no thyroid nodules or thyromegaly. LYMPH: No supraclavicular or cervical lymphadenopathy. SKIN: Visible skin seen during exam normal or with benign process only. EXT: No dependent lower extremity pedal edema. HEART: Regular rate and rhythm with no murmurs, rubs, or gallops. LUNGS: Clear to auscultation bilaterally with no crackles or wheezes. ABD: Soft, non tender, non distended. PSYCH: Good eye contact, speech is not pressured. Const: Vital Signs, click to edit/add: Vital Signs - 24 hr 07/09/24 01:51 Temperature 97.6 F Pulse Rate [Pulse Oximeter] 106 H Respiratory Rate 16 Blood Pressure [Ri ght Upper Arm] 143/88 H Pulse Oximetry 90 Oxygen Delivery Me thod Nasal Cannula Fraction of Inspir ed Oxygen 2 Course Course ED Course: Patient seen and examined. Patient is not comfortable going home wound would like to see a therapist. I did raise for telehealth consult. Vital Signs Vital signs: Initial Vital Signs Temperature 97.6 F 07/09/24 01:51 Temperature Source Temporal Artery Scan 07/09/24 01:51 Pulse Rate 106 H 07/09/24 01:51 Respiratory Rate 16 07/09/24 01:51 Blood Pressure 143/88 H 07/09/24 01:51 Blood Pressure Mean 106 H 07/09/24 01:51 Blood Pressure Position Sitting 07/09/24 01:51 Pulse Oximetry 90 07/09/24 01:51 Oxygen Delivery Method Nasal Cannula 07/09/24 01:51 Fraction of Inspired Oxygen 2 07/09/24 01:51 Vital Signs Temperature 97.6 F 07/09/24 01:51 Pulse Rate 106 H 07/09/24 01:51 Respiratory Rate 16 07/09/24 01:51 Blood Pressure 143/88 H 07/09/24 01:51 Pulse Oximetry 90 07/09/24 01:51 Oxygen Delivery Method Nasal Cannula 07/09/24 01:51 Fraction of Inspired Oxygen 2 07/09/24 01:51 Temperature 97.6 F 07/09/24 01:51 Pulse Rate 106 H 07/09/24 01:51 Respiratory Rate 16 07/09/24 01:51 Blood Pressure 143/88 H 07/09/24 01:51 Pulse Oximetry 90 07/09/24 01:51 Oxygen Delivery Method Nasal Cannula 07/09/24 01:51 Fraction of Inspired Oxygen 2 07/09/24 01:51 Medical Decision Making MDM Narrative Medical decision making narrative: Patient is a 49-year-old woman comes in quite anxious after having a bad dream. She is concerned because in her dream she was suicidal. She is not suicidal at this time. Patient requests to see a mental health counselor and we did provide that for her. I did visit with the mental health counselor and we both agree that Teresita is anxious. This time I did provide reassurance I recommended follow-up and she is discharged to home. Discharge Plan Discharge Clinical Impression: Anxiety Patient Disposition: Home, Self-Care Condition: Stable Instructions: Anxiety (ED) Additional Instructions: Continue current medication Follow-up with your doctor as needed. Activity Level: No Restrictions Discharge Diet: Regular Prescriptions: No Action azithromycin 250 mg tablet See Rx Instructions PO .COMPLEX Qty: 6 0RF Rx Instructions: For 250 mg dose pack: take 500 mg today (day 1), then 250 mg for 4 days (days 2-5) PO levetiracetam [Keppra] 750 mg tablet 750 mg PO BID potassium chloride 10 mEq tablet extended release 20 meq PO DAILY Rx Instructions: take 2 tablets daily levothyroxine 100 mcg tablet 100 mcg PO DAILY diphenhydramine HCl [Banophen] 25 mg capsule 25 - 50 mg PO Q8H PRN Rx Instructions: allergies ibuprofen 200 mg capsule 200 - 400 mg PO Q4-6H PRN magnesium hydroxide [Milk of Magnesia] 400 mg/5 mL suspension 15 - 30 ml PO DAILY PRN terbinafine HCl 1 % cream topical Q12H alum-mag hydroxide-simeth [Maalox Advanced] 200-200-20 mg/5 mL suspension 5 - 10 ml PO 5XD PRN Rx Instructions: administer between meals and at bedtime loperamide [Anti-Diarrheal (loperamide)] 2 mg tablet 1 mg PO Q6H PRN dextromethorphan HBr 10 mg/5 mL syrup 5 - 10 mg PO Q4-6H PRN montelukast 10 mg tablet 10 mg PO HS mirabegron [Myrbetriq] 50 mg tablet extended release 24 hr 50 mg PO DAILY Patient Comments: albuterol sulfate 90 mcg/actuation HFA aerosol inhaler 1 - 2 puff INHALATION Q4H PRN cholecalciferol (vitamin D3) 50 mcg (2,000 unit) capsule 50 mcg PO DAILY paroxetine HCl 40 mg tablet 40 mg PO DAILY Patient Comments: furosemide 40 mg Tablet 40 mg PO DAILY Qty: 30 0RF albuterol sulfate 2.5 mg /3 mL (0.083 %) solution for nebulization 2.5 mg inhalation Q8H PRNQty: 1 0RF budesonide-formoterol [Symbicort] 160-4.5 mcg/actuation HFA aerosol inhaler 2 puff INHALATION BID Qty: 1 0RF Spiriva Respimat 2.5 mcg/actuation mist 2 puff inhalation DAILY Qty: 1 0RF azithromycin [Zithromax] 250 mg tablet See Rx Instructions .ROUTE .COMPLEX Qty: 6 0RF Rx Instructions: For 250 mg dose pack: take 500 mg today (day 1), then 250 mg for 4 days (days 2-5) prednisone 20 mg tablet 20 mg PO BID Qty: 10 0RF omeprazole 20 mg capsule,delayed release(DR/EC) 40 mg PO DAILY Follow Up/Referrals: Geronimo Lamb MD [Primary Care Provider] - Stand Alone Forms: [facility] Info Instructions
--- OUTSIDE RECORDS SUMMARY | 2024-07-09 02:09 | XMS_ITS | CCD ---
Author Organization Unknown Care Team Providers Care Assembler For Puller Over Machine Name Role Phone Solution Advisor, [place] Primary Care Provider Unava ilable Unavailable Chronic Care Management Unavaila ble Summary Purpose DataExchange Insurance Providers Payer name Policy type / Coverage type Covered green party ID Effective Begin Date Effective End Date [facility] Commercial Insurance [id number] Unkn own Family History Family History data not found Medication Administered No Medication Administered data Reason For Visit No Reason For Visit data
--- OUTSIDE RECORDS SUMMARY | 2024-07-09 02:09 | XMS_ITS | Clinical Summary ---
Author Organization [facility] Address [address] , [address] [place] [address] Phone Care Team Providers Care Eyeglass Frame Truer Name Role Phone Son Jara MD Conditions or Problems Problem Name Problem Code Onset Date Status Entry Date Provider Comment Standard Description Annotate Involuntary movements 787252628 (SNOMED CT) Active Son Jara MD Abnormal involuntary movement Tremor [id number] (SNOMED CT) Active Son Jara MD Tremor Medications Medication Instructions Start Date Stop Date Generic Name ND Provider SOLIFENACIN SUCCINATE 10 MG TABS Take 1 Tablet (10 mg) by mouth once daily. solifenacin (VESICARE) 10 mg tablet [id number] Son Jara MD PROCHLORPERAZINE MALEATE 5 MG TABS Take 1 Tablet (5 mg) by mouth every 8 hours if needed for Nausea/Vomitin g. prochlorperazine (COMPAZINE) 5 mg tablet [id number] Son Jara MD OMEPRAZOLE 20 MG CPDR Take 2 Capsules (40 mg) by mouth once daily before a meal. omeprazole (PriLOSEC) 20 mg Delayed-Release capsule [id number] Son Jara MD MONTELUKAST SODIUM 10 MG TABS Take 1 Tablet (10 mg) by mouth at bedtime. montelukast (SINGULAIR) 10 mg tablet [id number] Son Jara MD mirabegron EXTENDED-release (MYRBETRIQ) 50 mg tablet Take 1 Tablet (50 mg) by mouth once daily. mirabegron EXTENDED-release (MYRBETRIQ) 50 mg tablet Son Jara MD MECLIZINE HCL 25 MG TABS Take 0.5 Tablets (12.5 mg) by mouth 3 times daily if needed for Nausea/Vomitin g. meclizine (ANTIVERT) 25 mg tablet [id number] Son Jara MD LEVOTHYROXINE SODIUM 175 MCG TABS Take 1 Tablet (175 mcg) by mouth before breakfast. levothyroxine (SYNTHROID) 175 mcg tablet [id number] Son Jara MD FEXOFENADINE HCL 180 MG TABS Take 1 tablet by mouth once daily with a meal. fexofenadine (ROJAS) 180 mg tablet [id number] Son Jara MD DIPHENHYDRAMINE HCL 25 MG CAPS Take 1 capsule by mouth each time if needed. diphenhydrAMINE (BENADRYL) 25 mg capsule [id number] Son Jara MD VITAMIN D 50 MCG (2000 UT) TABS Take 2,000 units by mouth. cholecalciferol, Vitamin D3, 2,000 unit tablet [id number] Son Jara MD BUPROPION HCL ER (XL) 150 MG [id number] null buPROPion (WELLBUTRIN XL) 150 mg Extended-Release tablet [id number] Son Jara MD IPRATROPIUM-ALBUTE ROL 0.5-2.5 (3) MG/3ML SOLN Inhale 3 mL via a nebulizer 2 times daily if needed for Shortness of Breath 1st choice or Wheezing 1st choice. albuterol-ipratrop ium (DUONEB) (2.5-0.5 mg) in 3 mL NEBULIZA [id number] Son Jara MD ALBUTEROL SULFATE HFA 108 (90 Base) MCG/ACT AERS Inhale 1-2 Puffs by mouth every 4 hours if needed for Shortness of Breath 1st choice. albuterol HFA (ProAir HFA) 90 mcg/actuation inhaler [id number] Son Jara MD ALBUTEROL SULFATE (2.5 MG/3ML) 0.083% NEBU Inhale 3 mL via a nebulizer every 6 hours if needed for Shortness Of Breath or Wheezing. albuterol (PROVENTIL) 0.083 % neb solution [id number] Son Jara MD SYMBICORT 160-4.5 MCG/ACT AERO null Symbicort 160-4. 5 mcg/actuation (160-4.5 mcg each actuation) [id number] Son Jara MD PAROXETINE HCL 40 MG TABS null PARoxetine (PAXI L) 40 mg tablet [id number] Son Jara MD Medications Administered No information [...] 2 ORDERS EEG Sleep Deprived (41min) 2 CPT-02565 EEG EXTENDED 41-60mins (END) ORDERS Obtain imaging report 02/08 ORDERS Patient Instructions [facility]-[id number] Documentation of current medicatio ns Vital Signs No information available. Immunizations No information available. Advance Directives No information available.
--- OUTSIDE RECORDS SUMMARY | 2024-07-09 02:09 | XMS_ITS | Clinical Summary ---
Author Organization [facility] Address [address] [place] [address] Care Team Providers Care Order Entry Administrator Name Role Phone Elsewhere, Pcp Primary Care Provider Unavailabl e Source Comments Patient records contain information from all sites at [facility]. For routine questions regarding patient records, call [phone] during business hours, M-F 8:00 AM - 5:00 PM Central Time. Record requests for emergency care only can be directed to [phone] at any time.[facility] [...] Sex Assigned at Female 06/02/2018 2:11 PM INDUSTRIAL TRUCK OPERATOR Legal Sex Female 5:08 AM INDUSTRIAL TRUCK OPERATOR Gender Identity Female 06/02/2018 2:11 PM INDUSTRIAL TRUCK OPERATOR Sexual Orientation Choose not to disclose 2018 2:11 PM INDUSTRIAL TRUCK OPERATOR Last Filed Vital Signs Vital Sign [...] this topic Medical Devices Implanted Type Area Varnish Mixer Device Identifier Shelf Expiration Date Model / Serial / Lot Ear Implant- 011 Implanted:11/24 (Quantity not on file) Ear Implant Ear [facility] Bernice Vega TORP Plasti-pore [id number] / / [id number] Description:[facility], [place], [place]. Ear implant-Vega TOPR Plasti-pore MRI Safe Procedures Procedure Name Priority Date/Time Associated Diagnosis Comments THYROID-STIMULATING HORMONE-SENSITIVE (S-TSH) Routine 10/27/2018 3:42 PM CDT Hypothyroidism Primary BASIC METABOLIC PANEL, S/P Routine 03/11/2018 1:58 PM CDT Dizziness Diplopia LIPID PANEL, S Routine 06/10/2016 10:40 AM INDUSTRIAL TRUCK OPERATOR from Last 3 Months or Most Recently Relevant to Health Maintenance Results * (ABNORMAL) S-TSH (Thyroid-Stimulating Hormone - Sensitive) (10/27/2018 3:42 PM CDT) TSH, Sensitive 10.7(H) 0.3 - 4.2 mIU/L 10/27/2018 5:20 PM CDT Comment: Biotin has been identified by the purification operator as a potential interfering substance. Higher concentrations of biotin may be found in multivitamins, hair/nail supplements, and workout supplements. If the result does not match clinical observations, repeat testing after patient refrains from the use of supplements for at least 12 hours. Blood (Blood, Venous) 10/27/2018 3:42 PM CDT 10/27/2018 3:43 PM CDT us Deanne Tsang P.A.-C. LAB BLOOD ADD-ON Final Result [facility] [address] [place] [address], [facility] * Basic Metabolic Panel (03/11/2018 1:58 PM CDT) Potassium, S 4.0 3.6 - 5.2 mmol/L 03/11/2018 2:29 PM CDT [facility] Sodium, S 141 135 - 145 mmol/L 03/11/2018 2:29 PM CDT [facility] Chloride, S 101 98 - 107 mmol/L 03/11/2018 2:29 PM CDT [facility] Bicarbonate, S 27 22 - 29 mmol/L 03/11/2018 2:29 PM CDT [facility] Anion Gap 13 7 - 15 03/11/2018 2:29 PM CDT [facility] BUN (Blood Urea Nitrogen), S 12 6 - 21 mg/dL 03/11/2018 2:29 PM CDT [facility] Creatinine 0.62 0.59 - 1.04 mg/dL 03/11/2018 2:29 PM CDT [facility] eGFR-Non Black/ >90 >=60 mL/min/BSA 03/11/2018 2:29 PM CDT [facility] Comment: ----ADDITIONAL INFORMATION---- Estimated GFR calculated using the 2009 CKD_EPI creatinine equation. eGFR-Black/Afri can Malian >90 >=60 mL/min/BSA 03/11/2018 2:29 PM CDT [facility] Comment: ----ADDITIONAL INFORMATION---- Estimated GFR calculated using the 2009 CKD_EPI creatinine equation. Calcium, Total, S 9.4 8.6 - 10.0 mg/dL 03/11/2018 2:29 PM CDT [facility] Glucose, S 95 70 - 140 mg/dL 03/11/2018 2:29 PM CDT [facility] Blood (Blood, Venous) 03/11/2018 1:58 PM CDT 03/11/2018 1:58 PM CDT Deanne Tsang P.A.-C. LAB BLOOD ADD-ON Final Result Performing Organization Address City/State/[facility] Co de Phone Number [facility] [address] * (ABNORMAL) Lipid Panel (06/10/2016 10:40 AM INDUSTRIAL TRUCK OPERATOR) [facility] Cholesterol, Total 275(H) <=199 MGDL POWERCHART [...] for FH and FDB is available through [facility]: FH/ADH Genetic Reflex Panel (test ADHP). Acquired (non-genetic) causes of markedly increased LDL cholesterol include cholestatic liver disease due to the presence of LpX. If a genetic form of hypercholesterolemia is suspected, family studies including biochemical testing for lipids (total cholesterol,triglycerides, LDL cholesterol and HDL cholesterol) are recommended. Please contact the laboratory at or the on-line test catalog at [facility] for information about how to order these tests or to speak with a genetic counselor. Further interpretation would require clinical information. Total Cholesterol/HDL Ratio 5 POWERCHART Blood 06/10/2016 10:4 0 AM INDUSTRIAL TRUCK OPERATOR us Ana Chery M.D. LAB BLOOD ADD-ON Final Re sult POWERCHART from Last 3 Months or Most Recently Relevant to Health Maintenance Insurance [facility] Care Teams Order Entry Administrator Relationship Specialty Start Date End Date Elsewhere, Pcp PCP - General Internal Medicine 12/04/18
--- OUTSIDE RECORDS SUMMARY | 2024-07-09 02:09 | XMS_ITS | CCD ---
Author Organization Unknown Care Team Providers Care Client Experience Administrator Name Role Phone Engineer [employer], [place] Primary Care Provider Unava ilable Unavailable Chronic Care Management Unavaila ble Summary Purpose DataExchange Insurance Providers Payer name Policy type / Coverage type Covered libertarian ID Effective Begin Date Effective End Date [facility] Commercial Insurance [id number] Unkn own Family History Family History data not found Medication Administered No Medication Administered data Reason For Visit No Reason For Visit data
--- OUTSIDE RECORDS SUMMARY | 2024-07-09 02:09 | XMS_ITS | Clinical Summary ---
Author Organization [employer] [facility] Address [place], [place] [address] Care Team Providers Care Modern Dancer Name Role Phone Paolo Limon MD Unavailable Talon Durham MD Unavailable [phone] Laura Gardner PsyD, Unavailable [phone] Geronimo Lamb MD Primary Care Provider Luis [...] 02/23/200911/2011 Dizziness 06/03/2024 Overview (04/23/2021): Eval by [facility] neurology 2018. Thought to be functional. Referred to psychiatry. Encounters Date Type Department Care Team Description 07/05/2024 2:30 PM PERSONAL COMPUTER NETWORK ENGINEER Office Visit [facility] [address] [place] [address] Geronimo Lamb MD Follow Up; ER Follow up ([facility], 06/16/2024 and 07/04/2024) 07/05/2024 Travel 07/04/2024 Orders Only [facility] Scanner 1 scan: (1-Ord) [facility], CHEST 2V, 07/04/2024 06/29/2024 Telephone [facility] [address] [place] [address] Geronimo Lamb MD Medication Management 06/29/2024 Refill [facility] [address] [place] [address] Geronimo Lamb MD Refill Request (Montelukast) 06/16/2024 Orders Only [facility] Scanner 1 scan: (1-Ord) [facility], CT CHEST WO CON, 06/16/2024 06/16/2024 Orders Only [facility] Scanner 1 scan: (1-Ord) [place], HEAD/BRAIN WO CON, 06/16/2024 06/11/2024 9:00 AM PERSONAL COMPUTER NETWORK ENGINEER - 06/11/2024 11:59 PM PERSONAL COMPUTER NETWORK ENGINEER Hospital Encounter [facility] [address] [place] [address] Luis Santos, DO 06/04/2024 9:04 AM PERSONAL COMPUTER NETWORK ENGINEER - 06/04/2024 11:59 PM PERSONAL COMPUTER NETWORK ENGINEER Hospital Encounter [facility] [address] [place] [address] Luis Santos, DO 06/03/2024 2:05 PM PERSONAL COMPUTER NETWORK ENGINEER Office Visit [facility] [address] [place] [address] Geronimo Lamb MD ER Follow up ([facility], 05/24/2024, pneumonia ) 06/03/2024 Travel 05/25/2024 Orders Only [address] [address] Geronimo Lamb MD <No scans attached> 05/24/2024 Orders Only [facility] Scanner 1 scan: (1-Ord) [facility], XR CHEST 2V, 05/24/2024 05/17/2024 Refill [facility] [address] [place] [address] Geronimo Lamb MD Refill Request (Prevail XL [id number]) 05/14/2024 11:15 AM PERSONAL COMPUTER NETWORK ENGINEER Office Visit [address] [address] Fercho Salcedo MD Hospital F/U (ACUTE CHOLECYSTISIS- feeling better ) 05/14/2024 Refill [facility] [address] [place] [address] Geronimo Lamb MD Refill Request (Protective Underwear Ex-large) 05/14/2024 Travel 05/12/2024 2:00 PM PERSONAL COMPUTER NETWORK ENGINEER Office Visit [facility] [address] [place] [address] Paolo Limon MD Sleep Follow-up 05/12/2024 Travel 05/12/2024 Patient Outreach [facility] [address] [place] [address] Alexandria Pulido, RN Primary RN Care Management; Hospital F/U (LACE 43) 05/09/2024 9:50 PM PERSONAL COMPUTER NETWORK ENGINEER - 05/11/2024 2:49 PM PERSONAL COMPUTER NETWORK ENGINEER Hospital Encounter [address] [address] s, Hospitalist [facility] Aron Birch, Discharge Disposition: Home Self Care 05/09/2024 Orders Only [facility] Scanner 1 scan: (1-Ord) [facility], US GALLBLADDER, 05/09/2024 05/09/2024 Orders Only [facility] Scanner 1 scan: (1-Ord) [facility], ABDOMEN PELVIS W/CONTRAST, 05/09/2024 05/05/2024 3:20 PM PERSONAL COMPUTER NETWORK ENGINEER Office Visit [facility] [address] [place] [address] Geronimo Lamb MD ER Follow up ([facility], 04/21/2024, syncope ); DME Supply [facility] - [employer]) 05/05/2024 Telephone [facility] [address] [place] [address] Geronimo Lamb MD Follow Up 05/05/2024 Travel 04/23/2024 Refill [facility] [address] [place] [address] Geronimo Lamb MD Refill Request (Levothyroxine) 04/21/2024 Telephone [facility] [address] [place] [address] Geronimo Lamb MD Prior Authorization (tirzepatide, weight loss, (Zepbound) 2.5 mg/0.5 mL pen - DENIED/EXCLUDED) 04/15/2024 Telephone [facility] [address] [place], [place] [id number] Geronimo Lamb MD DME Supply 04/08/2024 12:43 PM PERSONAL COMPUTER NETWORK ENGINEER - 04/08/2024 11:59 PM PERSONAL COMPUTER NETWORK ENGINEER Hospital Encounter [facility] [address] [facility] [place] [address] Luis Santos, Shazia Mckeon, POURER OFF Wheezing 04/08/2024 Telephone [facility] [address] [facility] [place] [address] Shazia Li, POURER OFF POURER OFF (Request of orders) 04/08/2024 Travel from Last 3 Months Immunizations Name Administration Dates Next Due COVID-19 VACCINE SPIKEVAX (M ODERNA 50MCG/0.5ML) 12YO+ PFS 03/19/2023 COVID-19 vaccine (Tang Song-Bio NTech 30mcg/0.3mL) 12YO+ BIVALENT PF, MDV 05/01/2022 [...] on file Legal Sex Female 6:31 AM PERSONAL COMPUTER NETWORK ENGINEER Gender Identity Not on file Sexual Orientation Not on file Obstetrics History Last Filed Vital Signs Vital Sign Reading Time Taken Comments Blood Pressure 152/87 07/05/2024 2:36 PM PERSONAL COMPUTER NETWORK ENGINEER Pulse 109 07/05/2024 2:36 PM PERSONAL COMPUTER NETWORK ENGINEER Temperature 36.6 C (97.9 F) 05/11/2024 8:03 AM PERSONAL COMPUTER NETWORK ENGINEER Respiratory Rate 18 05/11/2024 8:03 AM PERSONAL COMPUTER NETWORK ENGINEER Oxygen Saturation 92% 07/05/2024 2:3 6 PM PERSONAL COMPUTER NETWORK ENGINEER 2L via nasal cannula Inhaled Oxygen Concentration - - Weight 113.7 kg (250 lb 9.6 oz) 07/05/2024 2:36 PM PERSONAL COMPUTER NETWORK ENGINEER Height 142.2 cm (4' 8) 05/12/2024 2:07 PM PERSONAL COMPUTER NETWORK ENGINEER Body Mass Index 56.18 05/12/2024 2:07 PM PERSONAL COMPUTER NETWORK ENGINEER Plan of Treatment Upcoming Encounters Date Type Department Care Team (Late st Contact Info) Description 07/09/2024 9:00 AM PERSONAL COMPUTER NETWORK ENGINEER Appointment [facility] [address] [place] [address] 07/13/2024 11:20 AM PERSONAL COMPUTER NETWORK ENGINEER Office Visit [facility] [address] [place] [address] Geronimo Lamb MD [address] [place] [address] 07/20/2024 11:00 AM PERSONAL COMPUTER NETWORK ENGINEER Office Visit [facility] [address] [place] [address] Heather Cruz PA [address] [place] [address] 07/21/2024 10:30 AM PERSONAL COMPUTER NETWORK ENGINEER Office Visit [facility] [address] [place] [address] Geronimo Lamb MD [address] [place] [address] 07/23/2024 9:00 AM PERSONAL COMPUTER NETWORK ENGINEER Appointment [facility] [address] [place] [address] 08/06/2024 9:15 AM CDT Appointment [facility] [address] [place] [address] 08/18/2024 12:00 PM CDT Office Visit [facility] [address] [place] [address] Sadiq Lujan PA [address] [facility] [address] [place] [address] 08/19/2024 3:00 PM CDT Office Visit [facility] [address] [place] [address] Paolo Limon MD [address] [place] [address] 08/25/2024 10:00 AM CDT Office Visit [facility] [address] [place] [address] Paolo Limon MD [address] [place] [address] Health Maintenance Due Date Last Done Comments [...] Diagnosis Comments SCAN-RADIOLOGY REPORT 07/04/2024 12:00 AM PERSONAL COMPUTER NETWORK ENGINEER SCAN-CT INTERPRETATION 5 12:00 AM PERSONAL COMPUTER NETWORK ENGINEER SCAN-CT INTERPRETATION 5 12:00 AM PERSONAL COMPUTER NETWORK ENGINEER COVID/FLU/RSV PANEL Routine 06/03/2024 2 :37 PM PERSONAL COMPUTER NETWORK ENGINEER Flu-like symptoms SCAN-RADIOLOGY REPORT 05/24/2024 12:00 AM PERSONAL COMPUTER NETWORK ENGINEER NM HEPATOBILIARY IMAGING RICHARD 05/10/2024 1:58 PM PERSONAL COMPUTER NETWORK ENGINEER SCAN CORRESP-LABORATORY RESULTS 05/10/2024 10:49 AM PERSONAL COMPUTER NETWORK ENGINEER SCAN CORRESP-IMAGING 05/10/2024 10:43 AM PERSONAL COMPUTER NETWORK ENGINEER HEPATIC FUNCTION PANEL Early AM 6:26 AM PERSONAL COMPUTER NETWORK ENGINEER PROTIME-INR Early AM 05/10/2024 6:26 AM PERSONAL COMPUTER NETWORK ENGINEER WHITE BLOOD COUNT Early AM 05/10/2024 6:2 6 AM PERSONAL COMPUTER NETWORK ENGINEER HEMOGLOBIN Early AM 05/10/2024 6:26 AM PERSONAL COMPUTER NETWORK ENGINEER PLATELET COUNT Early AM 05/10/2024 6:26 AM PERSONAL COMPUTER NETWORK ENGINEER SODIUM Early AM 05/10/2024 6:26 AM PERSONAL COMPUTER NETWORK ENGINEER POTASSIUM Early AM 05/10/2024 6:26 AM PERSONAL COMPUTER NETWORK ENGINEER CREATININE Early AM 05/10/2024 6:26 AM PERSONAL COMPUTER NETWORK ENGINEER SCAN-ULTRASOUND REPORT 12:00 AM PERSONAL COMPUTER NETWORK ENGINEER SCAN-CT INTERPRETATION 4 12:00 AM PERSONAL COMPUTER NETWORK ENGINEER POURER OFF IMAGE CAPTURE Routine 04/08/2024 1:2 6 PM PERSONAL COMPUTER NETWORK ENGINEER LIPID PANEL W REFLEX MEASURED LDL Routine 01/20/2024 4:00 PM CDT Hyperlipidemia, unspecified hyperlipidemia type ANTI HIV 1/2 Routine 05/01/2022 4:36 PM PERSONAL COMPUTER NETWORK ENGINEER Encounter for screening for HIV ANTI HCV Routine 12/05/2021 9:30 AM CDT Need for hepatitis C screening test SCAN-MAMMOGRAPHY REPORT 02/24/2019 12:00 AM CDT from Last 3 Months or Most Recently Relevant to Health Maintenance Results * SCAN-RADIOLOGY REPORT (07/04/2024 12:00 AM PERSONAL COMPUTER NETWORK ENGINEER) Only the most recent of2 resultswithin the time period is included. Anatomical Region Laterality Modality Other us Scanner OTHER Final Result * SCAN-CT INTERPRETATION (06/16/2024 12:00 AM PERSONAL COMPUTER NETWORK ENGINEER) Only the most recent of3 resultswithin the time period is included. Anatomical Region Laterality Modality Other us Scanner OTHER Final Result * COVID/FLU/RSV PANEL (06/03/2024 2:37 PM PERSONAL COMPUTER NETWORK ENGINEER) COVID 19 [facility] MOLECULAR Negative Negative 06/03/2024 11:44 PM PERSONAL COMPUTER NETWORK ENGINEER [facility] Comment:All PCR tests are lopez bject to false negative result due to variability in viral load and collection technique. A negative result does not rule out a SARS-CoV-2 infection. Clinical correlation required. INFLUENZA A PCR Negative 5 11:44 PM PERSONAL COMPUTER NETWORK ENGINEER [facility] INFLUENZA B PCR Negative 5 11:44 PM PERSONAL COMPUTER NETWORK ENGINEER [facility] Respiratory Syncytial Virus Negative 06/03/2024 11:44 PM PERSONAL COMPUTER NETWORK ENGINEER [facility] Swab NASOPHARYNGEAL SWAB / Unknown Non-Blood / Unknown 06/03/2024 2:37 PM PERSONAL COMPUTER NETWORK ENGINEER 06/03/2024 2:38 PM PERSONAL COMPUTER NETWORK ENGINEER Geronimo Lamb MD MICROBIOLOGY Final Result [facility] [address] [place] [address], [place] * NM HEPATOBILIARY IMAGING (05/10/2024 1:58 PM PERSONAL COMPUTER NETWORK ENGINEER) Anatomical Region Laterality Modality LIVER Nuclear Medicine 05/10/2024 1:58 PM PERSONAL COMPUTER NETWORK ENGINEER Impressions 05/10/2024 2:21 PM PERSONAL COMPUTER NETWORK ENGINEER Negative for acute cholecystitis. Narrative 05/10/2024 2:21 PM PERSONAL COMPUTER NETWORK ENGINEER For Patients: As a result of the Cures Act, medical imaging exams and procedure reports are released immediately into your electronic medical record. You may view this report before your referring provider. If you have questions, please contact your health care provider. EXAM: PA HEPATOBILIARY IMAGING LOCATION: [facility] DATE: 05/10/2024 INDICATION: Right [...] please contact your health care provider. EXAM: PA HEPATOBILIARY IMAGING LOCATION: [facility] DATE: 05/10/2024 INDICATION: Right [...] * SCAN CORRESP-LABORATORY RESULTS (05/10/2024 10:49 AM PERSONAL COMPUTER NETWORK ENGINEER) Narrative 05/10/2024 10:49 AM PERSONAL COMPUTER NETWORK ENGINEER Ordered by an unspecified provider. Other Clinical Staff OTHER Final Resul t * SCAN CORRESP-IMAGING (05/10/2024 10:43 AM PERSONAL COMPUTER NETWORK ENGINEER) Anatomical Region Laterality Modality Other Narrative 05/10/2024 10:43 AM PERSONAL COMPUTER NETWORK ENGINEER Ordered by an unspecified provider. Other Clinical Staff OTHER Final Resul t * PLATELET COUNT (05/10/2024 6:26 AM PERSONAL COMPUTER NETWORK ENGINEER) PLATELET COUNT 202 140 - 440 thou/cu mm 05/10/2024 6:48 AM PERSONAL COMPUTER NETWORK ENGINEER [facility] MPV 10.1 6.5 - 11.0 fL 05/10/2024 6:48 AM [facility] Blood BLOOD SPECIMEN / Unknown Venipuncture / Unknown 05/10/2024 6:26 AM PERSONAL COMPUTER NETWORK ENGINEER 05/10/2024 6:37 AM PERSONAL COMPUTER NETWORK ENGINEER Aron Birch DO HEMATOLOGY Final Result [facility] SENDOUT INTERNAL ZIP [address] [place] [address] * WHITE BLOOD COUNT (05/10/2024 6:26 AM PERSONAL COMPUTER NETWORK ENGINEER) [facility] WHITE BLOOD COUNT 7.6 4.5 - 11.0 thou/cu mm 05/10/2024 6:48 AM PERSONAL COMPUTER NETWORK ENGINEER [facility] NRBC 0.0 % 05/10/2024 6:48 AM PERSONAL COMPUTER NETWORK ENGINEER [facility] ABS NRBC 0.0 thou /cu mm 05/10/2024 6:48 AM [facility] Blood BLOOD SPECIMEN / Unknown Venipuncture / Unknown 05/10/2024 6:26 AM PERSONAL COMPUTER NETWORK ENGINEER 05/10/2024 6:37 AM PERSONAL COMPUTER NETWORK ENGINEER Aron Birch DO HEMATOLOGY Final Result [facility] SENDOUT INTERNAL ZIP [address] [place] [address] * HEMOGLOBIN (05/10/2024 6:26 AM PERSONAL COMPUTER NETWORK ENGINEER) HEMOGLOBIN 12.4 12.0 - 16.0 g/dL 05/10/2024 6:48 AM PERSONAL COMPUTER NETWORK ENGINEER [facility] MCV 92 80 - 100 fL 05/10/2024 6:48 AM [facility] Blood BLOOD SPECIMEN / Unknown Venipuncture / Unknown 05/10/2024 6:26 AM PERSONAL COMPUTER NETWORK ENGINEER 05/10/2024 6:37 AM PERSONAL COMPUTER NETWORK ENGINEER Aron Birch DO HEMATOLOGY Final Result [facility] SENDOUT INTERNAL ZIP [address] [place] [address] * SODIUM (05/10/2024 6:26 AM PERSONAL COMPUTER NETWORK ENGINEER) Pathologist [facility] SODIUM 143 136 - 145 mmol/L 05/10/2024 7:23 AM [facility] Blood BLOOD SPECIMEN / Unknown Venipuncture / Unknown 05/10/2024 6:26 AM PERSONAL COMPUTER NETWORK ENGINEER 05/10/2024 6:37 AM PERSONAL COMPUTER NETWORK ENGINEER Aron Piero Eyal ALEJANDRO CHEMISTRY Final Result [facility] SENDOUT INTERNAL ZIP [address] [place] [address] * POTASSIUM (05/10/2024 6:26 AM PERSONAL COMPUTER NETWORK ENGINEER) Pathologist [facility] POTASSIUM 3.8 3.5 - 5.1 mmol/L 05/10/2024 7:23 AM [facility] Blood BLOOD SPECIMEN / Unknown Venipuncture / Unknown 05/10/2024 6:26 AM PERSONAL COMPUTER NETWORK ENGINEER 05/10/2024 6:37 AM PERSONAL COMPUTER NETWORK ENGINEER Aron Birch DO CHEMISTRY Final Result [facility] SENDOUT INTERNAL ZIP [address] [place] [address] * CREATININE (05/10/2024 6:26 AM PERSONAL COMPUTER NETWORK ENGINEER) Pathologist [facility] eGFR >90 >90 mL/min/1.7 3m2 05/10/2024 7:23 AM [facility] Comment:As of 2021, eG FR is calculated by the CKD-EPI creatinine equation without race adjustment. eGFR can be influenced by muscle mass, exercise, and diet. The reported eGFR is an estimation only and is only applicable if the renal function is stable. CREATININE 0.73 0.50 - 0.90 mg/dL 05/10/2024 7:23 AM [facility] Blood BLOOD SPECIMEN / Unknown Venipuncture / Unknown 05/10/2024 6:26 AM PERSONAL COMPUTER NETWORK ENGINEER 05/10/2024 6:37 AM PERSONAL COMPUTER NETWORK ENGINEER Aron Birch DO CHEMISTRY Final Result Performing Organization Address [facility] Co de Phone Number [facility] SENDOUT INTERNAL ZIP [address] [place] [address] * PROTIME-INR (05/10/2024 6:26 AM PERSONAL COMPUTER NETWORK ENGINEER) [facility] INR 1.1 <1.3 05/10/2024 6:52 AM [facility] PROTIME 12.2 10.6 - 12.4 sec 05/10/2024 6:52 AM [facility] Blood BLOOD SPECIMEN / Unknown Venipuncture / Unknown 05/10/2024 6:26 AM PERSONAL COMPUTER NETWORK ENGINEER 05/10/2024 6:37 AM PERSONAL COMPUTER NETWORK ENGINEER [facility] - 05/10/2024 6:52 AM PERSONAL COMPUTER NETWORK ENGINEER Therapeutic Range 2.0-3.0 for most anticoagulated patients [...] DO HEMATOLOGY Final Result Performing Organization Address [facility] Co de Phone Number [facility] SENDOUT INTERNAL ZIP [address] [address] [place] [address] * (ABNORMAL) HEPATIC FUNCTION PANEL (05/10/2024 6:26 AM PERSONAL COMPUTER NETWORK ENGINEER) ALBUMIN 3.6(L) 4.0 - 4.9 g/dL 05/10/2024 7:23 AM [facility] PROTEIN,TOTAL 6.5 6.0 - 8.0 g/dL 05/10/2024 7:23 AM [facility] BILIRUBIN,TOTAL 0.4 0.0 - 1.2 mg/dL 05/10/2024 7:23 AM [facility] BILIRUBIN,DIRECT 0.2 0.0 - 0.2 mg/dL 05/10/2024 7:23 AM [facility] BILIRUBIN,INDIRE CT 0.2 0.2 - 0.8 mg/dL 05/10/2024 7:23 AM [facility] ALK PHOSPHATASE 82 35 - 104 IU/L 05/10/2024 7:23 AM [facility] ALT (SGPT) 30 10 - 35 IU/L 05/10/2024 7:23 AM [facility] AST (SGOT) 26 10 - 35 IU/L 05/10/2024 7:23 AM [facility] Blood BLOOD SPECIMEN / Unknown Venipuncture / Unknown 05/10/2024 6:26 AM PERSONAL COMPUTER NETWORK ENGINEER 05/10/2024 6:37 AM [facility] Aron Birch DO CHEMISTRY Final Result [facility] SENDOUT INTERNAL ZIP [address] [place] [address] * SCAN-ULTRASOUND REPORT (05/09/2024 12:00 AM PERSONAL COMPUTER NETWORK ENGINEER) Anatomical Region Laterality Modality Other us Scanner OTHER Final Result * (ABNORMAL) LIPID PANEL W REFLEX MEASURED LDL (01/20/2024 4:00 PM CDT) CHOLESTEROL,TOTAL 261(H) 100 - 199 mg/dL 01/21/2024 1:44 PM CDT [facility] Comment: Cholesterol, Total Reference Ranges Desirable <200 mg/dL Borderline 200-239 mg/dL High >=240 mg/dL TRIGLYCERIDES 252(H) <150 mg/dL 01/21/2024 1:44 PM CDT [facility] HDL CHOLESTEROL 50 >40 mg/dL 1:44 PM CDT [facility] NON-HDL CHOLESTEROL 211(H) <145 mg/dl 01/21/2024 1:44 PM CDT [facility] CHOL/HDL RATIO 5.22(H) <4.50 01/21/2024 1:44 PM CDT [facility] LDL CHOLESTEROL 161(H) <=130 mg/dL 01/21/2024 1:44 PM CDT [facility] VLDL CHOLESTEROL 50(H) <=30 mg/dL 01/21/2024 1:44 PM CDT [facility] PROVIDER ORDERED STATUS RANDOM 01/21/2024 1:44 PM CDT [facility] Blood BLOOD SPECIMEN / Unknown Venipuncture / Unknown 01/20/2024 4:00 PM CDT 01/20/2024 4:00 PM CDT us Geronimo Lamb MD CHEMISTRY Final Result [facility] [address] [place] [address], [place] * ANTI HIV 1/2 (05/01/2022 4:36 PM PERSONAL COMPUTER NETWORK ENGINEER) HIV-1/HIV-2 ANTIBODY Non-Reacti ve Non-Reacti ve 05/04/2022 9:59 PM PERSONAL COMPUTER NETWORK ENGINEER [facility] Comment:HIV-1 p24 and HIV-1/ HIV-2 Ab not detected. Blood BLOOD SPECIMEN / Unknown Butterfly / Unknown 05/01/2022 4:36 PM PERSONAL COMPUTER NETWORK ENGINEER 05/01/2022 4:41 PM PERSONAL COMPUTER NETWORK ENGINEER us Geronimo Lamb MD SEND OUTS Final Result [facility] [address] [place] [address], [place] * ANTI HCV (12/05/2021 9:30 AM CDT) HEPATITIS C ANTIBODY Non-React shikha Non-React shikha 12/05/2021 9:16 PM CDT [facility] Comment:Antibodies to HCV no t detected; does not exclude the possibility of exposure to HCV. Blood BLOOD SPECIMEN / Unknown Venipuncture / Unknown 12/05/2021 9:30 AM CDT 12/05/2021 9:33 AM CDT us Geronimo Lamb MD SEND OUTS Final Result [facility] [address] [place] [address], [place] * SCAN-MAMMOGRAPHY REPORT (02/24/2019 12:00 AM CDT) Anatomical Region Laterality Modality Other us Scanner OTHER Final Result from Last 3 Months or Most Recently Relevant to Health Maintenance Insurance [facility] MEDIC[facility] PART A HB ONLY Advance Directives * Full Code (Latest Code Status on File) Date Activated Date Inactivated Comments 05/09/2024 10:07 PM 05/11/2024 4:49 PM Question Answer Comments Code Status Discussion: Reviewed Preferences Care Teams Modern Dancer Relationship Specialty Start Date End Date Geronimo Lamb MD [address] [place] [address] PCP - General Family Practice 04/23/21 Paolo Limon MD Sleep Medicine 10/28/11 Talon Durham MD Neurology Neurology 11/26/11 Laura Gardner PsyD, [facility] Psychology 09/14/13 [place] [address] [place] [address] Pulmonology Pulmonary Medicine 01/22/24
[2024-07-09 03:35] VITALS: O2SAT 90
== END 2024-07-09 03:48 | disposition home or self-care (01) ==
PROVIDERS: Emergency Provider Internal Medicine; PCP Family Medicine
DX: F41.9 Anxiety disorder, unspecified (principal)
CPT/HCPCS: 99282; 99283

== ENCOUNTER 2024-07-09 03:41 | Outpatient (CLI) | payer OTHER, SELFPAY | END 2024-07-09 03:42 | disposition home or self-care (01) | LOC: AMB 07-10 23:16 | PROVIDERS: PCP Family Medicine; Visit Provider Internal Medicine | DX: R45.851 Suicidal ideations (principal) | CPT/HCPCS: A0425; A0428 ==

== ENCOUNTER 2024-07-10 22:51 | Outpatient (CLI) | payer OTHER, SELFPAY | END 2024-07-10 22:52 | disposition home or self-care (01) | LOC: AMB 07-11 02:29 | PROVIDERS: PCP Family Medicine; Visit Provider Family Medicine | DX: R06.02 Shortness of breath (principal) | CPT/HCPCS: A0425; A0427 ==

== ENCOUNTER 2024-07-10 23:11 | Emergency (ER) | payer OTHER, SELFPAY ==
--- OUTSIDE RECORDS SUMMARY | 2024-07-10 23:13 | XMS_ITS | Clinical Summary ---
Author Organization [employer] [facility] Address [place], [place] [address] Care Team Providers Care Winch Driver Name Role Phone Paolo Limon MD Unavailable Talon Durham MD Unavailable [phone] Laura Gardner PsyD, Unavailable [phone] Geronimo Lamb MD Primary Care Provider Luis Santos DO Unavailable [phone] Allergies Active Allergy Reactions Criticality Noted Date [...] 02/23/200911/2011 Dizziness 06/03/2024 Overview (04/23/2021): Eval by [facility] neurology 2018. Thought to be functional. Referred to psychiatry. Encounters Date Type Department Care Team Description 07/05/2024 2:30 PM ELECTRIC SHOVEL OPERATOR Office Visit [facility] [address] [place] [address] Geronimo Lamb MD Follow Up; ER Follow up ([facility], 06/16/2024 and 07/04/2024) 07/05/2024 Travel 07/04/2024 Orders Only [facility] Scanner 1 scan: (1-Ord) [facility], CHEST 2V, 07/04/2024 06/29/2024 Telephone [facility] [address] [place] [address] Geronimo Lamb MD Medication Management 06/29/2024 Refill [facility] [address] [place] [address] Geronimo Lamb MD Refill Request (Montelukast) 06/16/2024 Orders Only [facility] Scanner 1 scan: (1-Ord) [place], CT CHEST WO CON, 06/16/2024 06/16/2024 Orders Only [facility] Scanner 1 scan: (1-Ord) [place], HEAD/BRAIN WO CON, 06/16/2024 06/11/2024 9:00 AM ELECTRIC SHOVEL OPERATOR - 06/11/2024 11:59 PM ELECTRIC SHOVEL OPERATOR Hospital Encounter [facility] [address] [place] [address] Luis Santos, DO 06/04/2024 9:04 AM ELECTRIC SHOVEL OPERATOR - 06/04/2024 11:59 PM ELECTRIC SHOVEL OPERATOR Hospital Encounter [facility] [address] [place] [address] Luis Santos, DO 06/03/2024 2:05 PM ELECTRIC SHOVEL OPERATOR Office Visit [facility] [address] [place] [address] Geronimo Lamb MD ER Follow up ([facility], 05/24/2024, pneumonia ) 06/03/2024 Travel 05/25/2024 Orders Only [address] [address] Geronimo Lamb MD <No scans attached> 05/24/2024 Orders Only [facility] Scanner 1 scan: (1-Ord) [facility], XR CHEST 2V, 05/24/2024 05/17/2024 Refill [facility] [address] [place] [address] Geronimo Lamb MD Refill Request (Prevail XL [id number]) 05/14/2024 11:15 AM ELECTRIC SHOVEL OPERATOR Office Visit [address] [address] Fercho Salcedo MD Hospital F/U (ACUTE CHOLECYSTISIS- feeling better ) 05/14/2024 Refill [facility] [address] [place] [address] Geronimo Lamb MD Refill Request (Protective Underwear Ex-large) 05/14/2024 Travel 05/12/2024 2:00 PM ELECTRIC SHOVEL OPERATOR Office Visit [facility] [address] [place] [address] Paolo Limon MD Sleep Follow-up 05/12/2024 Travel 05/12/2024 Patient Outreach [facility] [address] [place] [address] Alexandria Pulido, RN Primary RN Care Management; Hospital F/U (LACE 43) 05/09/2024 9:50 PM ELECTRIC SHOVEL OPERATOR - 05/11/2024 2:49 PM ELECTRIC SHOVEL OPERATOR Hospital Encounter [address] [address] s, Hospitalist [facility] Aron Birch, Discharge Disposition: Home Self Care 05/09/2024 Orders Only [facility] Scanner 1 scan: (1-Ord) [facility], US GALLBLADDER, 05/09/2024 05/09/2024 Orders Only [facility] Scanner 1 scan: (1-Ord) [facility], ABDOMEN PELVIS W/CONTRAST, 05/09/2024 05/05/2024 3:20 PM ELECTRIC SHOVEL OPERATOR Office Visit [facility] [address] [place] [address] Geronimo Lamb MD ER Follow up ([facility], 04/21/2024, syncope ); DME Supply (Incontinence products - sent to [facility], [place]/New portable oxygen - [employer]) 05/05/2024 Telephone [facility] [address] [place] [address] Geronimo Lamb MD Follow Up 05/05/2024 Travel 04/23/2024 Refill [facility] [address] [place] [address] Geronimo Lamb MD Refill Request (Levothyroxine) 04/21/2024 Telephone [facility] [address] [place] [address] Geronimo Lamb MD Prior Authorization (tirzepatide, weight loss, (Zepbound) 2.5 mg/0.5 mL pen - DENIED/EXCLUDED) 04/15/2024 Telephone [facility] [address] [place] [address] Geronimo Lamb MD DME Supply from Last 3 Months Immunizations Name Administration [...] on file Legal Sex Female 6:31 AM ELECTRIC SHOVEL OPERATOR Gender Identity Not on file Sexual Orientation Not on file Obstetrics History Last Filed Vital Signs Vital Sign Reading Time Taken Comments Blood Pressure 152/87 07/05/2024 2:36 PM ELECTRIC SHOVEL OPERATOR Pulse 109 07/05/2024 2:36 PM ELECTRIC SHOVEL OPERATOR Temperature 36.6 C (97.9 F) 05/11/2024 8:03 AM ELECTRIC SHOVEL OPERATOR Respiratory Rate 18 05/11/2024 8:03 AM ELECTRIC SHOVEL OPERATOR Oxygen Saturation 92% 07/05/2024 2:3 6 PM ELECTRIC SHOVEL OPERATOR 2L via nasal cannula Inhaled Oxygen Concentration - - Weight 113.7 kg (250 lb 9.6 oz) 07/05/2024 2:36 PM ELECTRIC SHOVEL OPERATOR Height 142.2 cm (4' 8) 05/12/2024 2:07 PM ELECTRIC SHOVEL OPERATOR Body Mass Index 56.18 05/12/2024 2:07 PM ELECTRIC SHOVEL OPERATOR Plan of Treatment Upcoming Encounters Date Type Department Care Team (Late st Contact Info) Description 07/13/2024 11:20 AM ELECTRIC SHOVEL OPERATOR Office Visit [facility] [address] [facility] [address] Geronimo Lamb MD [address] [place] [address] 07/20/2024 11:00 AM ELECTRIC SHOVEL OPERATOR Office Visit [facility] [address] [facility] [place] [address] Heather Cruz PA [address] [facility] [place] [address] 07/21/2024 10:30 AM ELECTRIC SHOVEL OPERATOR Office Visit [facility] [address] [place] [address] Geronimo Lamb MD [address] [place] [address] 07/23/2024 9:00 AM ELECTRIC SHOVEL OPERATOR Appointment [facility] [address] [place] [address] 08/06/2024 9:15 AM CDT Appointment [facility] [address] [facility] [place] [address] 08/18/2024 12:00 PM CDT Office Visit [facility] [address] [facility] [address] [facility] [address] [place] [phone] Sadiq Lujan PA [address] [facility] [address] [facility] [address] [place] [address] 08/19/2024 3:00 PM CDT Office Visit [facility] [address] [place] [address] Paolo Limon MD [address] [place] [address] 08/25/2024 10:00 AM CDT Office Visit [facility] [address] [place] [address] Paolo Limon MD [address] [place] [address] Health Maintenance Due Date Last Done Comments [...] Diagnosis Comments SCAN-RADIOLOGY REPORT 07/04/2024 12:00 AM ELECTRIC SHOVEL OPERATOR SCAN-CT INTERPRETATION 5 12:00 AM ELECTRIC SHOVEL OPERATOR SCAN-CT INTERPRETATION 5 12:00 AM ELECTRIC SHOVEL OPERATOR COVID/FLU/RSV PANEL Routine 06/03/2024 2 :37 PM ELECTRIC SHOVEL OPERATOR Flu-like symptoms SCAN-RADIOLOGY REPORT 05/24/2024 12:00 AM ELECTRIC SHOVEL OPERATOR NM HEPATOBILIARY IMAGING RICHARD 05/10/2024 1:58 PM ELECTRIC SHOVEL OPERATOR SCAN CORRESP-LABORATORY RESULTS 05/10/2024 10:49 AM ELECTRIC SHOVEL OPERATOR SCAN CORRESP-IMAGING 05/10/2024 10:43 AM ELECTRIC SHOVEL OPERATOR HEPATIC FUNCTION PANEL Early AM 4 6:26 AM ELECTRIC SHOVEL OPERATOR PROTIME-INR Early AM 05/10/2024 6:26 AM ELECTRIC SHOVEL OPERATOR WHITE BLOOD COUNT Early AM 05/10/2024 6:2 6 AM ELECTRIC SHOVEL OPERATOR HEMOGLOBIN Early AM 05/10/2024 6:26 AM ELECTRIC SHOVEL OPERATOR PLATELET COUNT Early AM 05/10/2024 6:26 AM ELECTRIC SHOVEL OPERATOR SODIUM Early AM 05/10/2024 6:26 AM ELECTRIC SHOVEL OPERATOR POTASSIUM Early AM 05/10/2024 6:26 AM ELECTRIC SHOVEL OPERATOR CREATININE Early AM 05/10/2024 6:26 AM ELECTRIC SHOVEL OPERATOR SCAN-ULTRASOUND REPORT 4 12:00 AM ELECTRIC SHOVEL OPERATOR SCAN-CT INTERPRETATION 12:00 AM ELECTRIC SHOVEL OPERATOR LIPID PANEL W REFLEX MEASURED LDL Routine 01/20/2024 4:00 PM CDT Hyperlipidemia, unspecified hyperlipidemia type ANTI HIV 1/2 Routine 05/01/2022 4:36 PM ELECTRIC SHOVEL OPERATOR Encounter for screening for HIV ANTI HCV Routine 12/05/2021 9:30 AM CDT Need for hepatitis C screening test SCAN-MAMMOGRAPHY REPORT 02/24/2019 12:00 AM CDT from Last 3 Months or Most Recently Relevant to Health Maintenance Results * SCAN-RADIOLOGY REPORT (07/04/2024 12:00 AM ELECTRIC SHOVEL OPERATOR) Only the most recent of2 resultswithin the time period is included. Anatomical Region Laterality Modality Other us Scanner OTHER Final Result * SCAN-CT INTERPRETATION (06/16/2024 12:00 AM ELECTRIC SHOVEL OPERATOR) Only the most recent of3 resultswithin the time period is included. Anatomical Region Laterality Modality Other us Scanner OTHER Final Result * COVID/FLU/RSV PANEL (06/03/2024 2:37 PM ELECTRIC SHOVEL OPERATOR) COVID 19 ALLIRMA MOLECULAR Negative Negative 06/03/2024 11:44 PM ELECTRIC SHOVEL OPERATOR [facility] Comment:All PCR tests are lopez bject to false negative result due to variability in viral load and collection technique. A negative result does not rule out a SARS-CoV-2 infection. Clinical correlation required. INFLUENZA A PCR Negative 11:44 PM ELECTRIC SHOVEL OPERATOR [facility] INFLUENZA B PCR Negative 11:44 PM ELECTRIC SHOVEL OPERATOR [facility] Respiratory Syncytial Virus Negative 06/03/2024 11:44 PM ELECTRIC SHOVEL OPERATOR [facility] Swab NASOPHARYNGEAL SWAB / Unknown Non-Blood / Unknown 06/03/2024 2:37 PM ELECTRIC SHOVEL OPERATOR 06/03/2024 2:38 PM ELECTRIC SHOVEL OPERATOR Geronimo Lamb MD MICROBIOLOGY Final Result [facility] [address] [place] [address], * NM HEPATOBILIARY IMAGING (05/10/2024 1:58 PM ELECTRIC SHOVEL OPERATOR) Anatomical Region Laterality Modality LIVER Nuclear Medicine 05/10/2024 1:58 PM ELECTRIC SHOVEL OPERATOR Impressions 05/10/2024 2:21 PM ELECTRIC SHOVEL OPERATOR Negative for acute cholecystitis. Narrative 05/10/2024 2:21 PM ELECTRIC SHOVEL OPERATOR For Patients: As a result of the Century Cures Act, medical imaging exams and procedure reports are released immediately into your electronic medical record. You may view this report before your referring provider. If you have questions, please contact your health care provider. EXAM: NM HEPATOBILIARY IMAGING LOCATION: [facility] MEDICAL IMAGING DATE: 05/10/2024 INDICATION: [...] care provider. EXAM: NM HEPATOBILIARY IMAGING LOCATION: [facility] MEDICAL IMAGING DATE: 05/10/2024 INDICATION: Right upper quadrant abdominal pain COMPARISON: Abdominal ultrasound dated 05/09/2024 TECHNIQUE: Tc-99m Mebrofenin 8.0 mCi, IV. Anterior planar imaging of theabdomen. FINDINGS: Normal radionuclide activity in liver, gallbladder, bile ducts,and small bowel. No evidence of cystic or common duct obstruction orintrinsic liver disease. IMPRESSION: Negative for acute cholecystitis. Eva JASON NM Final Res ult * SCAN CORRESP-LABORATORY RESULTS (05/10/2024 10:49 AM ELECTRIC SHOVEL OPERATOR) Narrative 05/10/2024 10:49 AM ELECTRIC SHOVEL OPERATOR Ordered by an unspecified provider. us Other Clinical Staff OTHER Final Resul t * SCAN CORRESP-IMAGING (05/10/2024 10:43 AM ELECTRIC SHOVEL OPERATOR) Anatomical Region Laterality Modality Other Narrative 05/10/2024 10:43 AM ELECTRIC SHOVEL OPERATOR Ordered by an unspecified provider. us Other Clinical Staff OTHER Final Resul t * PLATELET COUNT (05/10/2024 6:26 AM ELECTRIC SHOVEL OPERATOR) PLATELET COUNT 202 140 - 440 thou/cu mm 05/10/2024 6:48 AM ELECTRIC SHOVEL OPERATOR LABORATORY MPV 10.1 6.5 - 11.0 fL 05/10/2024 6:48 AM ELECTRIC SHOVEL OPERATOR LABORATORY Blood BLOOD SPECIMEN / Unknown Venipuncture / Unknown 05/10/2024 6:26 AM ELECTRIC SHOVEL OPERATOR 05/10/2024 6:37 AM ELECTRIC SHOVEL OPERATOR Aron Piero Gravesgregoria ALEJANDRO HEMATOLOGY Final Result LABORATORY SENDOUT INTERNAL [address]IP [address] [address] [place] [address] * WHITE BLOOD COUNT (05/10/2024 6:26 AM ELECTRIC SHOVEL OPERATOR) WHITE BLOOD COUNT 7.6 4.5 - 11.0 thou/cu mm 05/10/2024 6:48 AM ELECTRIC SHOVEL OPERATOR LABORATORY NRBC 0.0 % 05/10/2024 6:48 AM ELECTRIC SHOVEL OPERATOR LABORATORY ABS NRBC 0.0 thou /cu mm 05/10/2024 6:48 AM ELECTRIC SHOVEL OPERATOR LABORATORY Blood BLOOD SPECIMEN / Unknown Venipuncture / Unknown 05/10/2024 6:26 AM ELECTRIC SHOVEL OPERATOR 05/10/2024 6:37 AM ELECTRIC SHOVEL OPERATOR us Aron Birch DO HEMATOLOGY Final Result Performing Organization Address City/[facility]/ZIP Co de Phone Number LABORATORY SENDOUT INTERNAL ZIP [address] [place] [address] * HEMOGLOBIN (05/10/2024 6:26 AM ELECTRIC SHOVEL OPERATOR) HEMOGLOBIN 12.4 12.0 - 16.0 g/dL 05/10/2024 6:48 AM ELECTRIC SHOVEL OPERATOR LABORATORY MCV 92 80 - 100 fL 05/10/2024 6:48 AM ELECTRIC SHOVEL OPERATOR LABORATORY Blood BLOOD SPECIMEN / Unknown Venipuncture / Unknown 05/10/2024 6:26 AM ELECTRIC SHOVEL OPERATOR 05/10/2024 6:37 AM ELECTRIC SHOVEL OPERATOR Aron Piero Eyal DO HEMATOLOGY Final Result LABORATORY SENDOUT INTERNAL [address] [address] [address] [place] [address] * SODIUM (05/10/2024 6:26 AM ELECTRIC SHOVEL OPERATOR) SODIUM 143 136 - 145 mmol/L 05/10/2024 7:23 AM ELECTRIC SHOVEL OPERATOR LABORATORY Blood BLOOD SPECIMEN / Unknown Venipuncture / Unknown 05/10/2024 6:26 AM ELECTRIC SHOVEL OPERATOR 05/10/2024 6:37 AM ELECTRIC SHOVEL OPERATOR [facility] Final Result Performing Organization Address City/[facility] Co de Phone Number LABORATORY SENDOUT INTERNAL ZIP [address] [place] [address] * POTASSIUM (05/10/2024 6:26 AM ELECTRIC SHOVEL OPERATOR) POTASSIUM 3.8 3.5 - 5.1 mmol/L 05/10/2024 7:23 AM ELECTRIC SHOVEL OPERATOR LABORATORY Blood BLOOD SPECIMEN / Unknown Venipuncture / Unknown 05/10/2024 6:26 AM ELECTRIC SHOVEL OPERATOR 05/10/2024 6:37 AM ELECTRIC SHOVEL OPERATOR [facility] CHEMISTRY Final Result Performing Organization Address [facility] Phone Number LABORATORY SENDOUT INTERNAL ZIP [address] [place] [address] * CREATININE (05/10/2024 6:26 AM ELECTRIC SHOVEL OPERATOR) Pathologist [facility] eGFR >90 >90 mL/min/1.7 3m2 05/10/2024 7:23 AM [facility] Comment:As of 2021, eG FR is calculated by the CKD-EPI creatinine equation without race adjustment. eGFR can be influenced by muscle mass, exercise, and diet. The reported eGFR is an estimation only and is only applicable if the renal function is stable. CREATININE 0.73 0.50 - 0.90 mg/dL 05/10/2024 7:23 AM [facility] Blood BLOOD SPECIMEN / Unknown Venipuncture / Unknown 05/10/2024 6:26 AM ELECTRIC SHOVEL OPERATOR 05/10/2024 6:37 AM ELECTRIC SHOVEL OPERATOR [facility] CHEMISTRY Final Result Performing Organization Address [facility] Co de Phone Number LABORATORY SENDOUT INTERNAL ZIP [address] [place] [address] * PROTIME-INR (05/10/2024 6:26 AM ELECTRIC SHOVEL OPERATOR) Pathologist [facility] INR 1.1 <1.3 05/10/2024 6:52 AM [facility] PROTIME 12.2 10.6 - 12.4 sec 05/10/2024 6:52 AM [facility] Blood BLOOD SPECIMEN / Unknown Venipuncture / Unknown 05/10/2024 6:26 AM ELECTRIC SHOVEL OPERATOR 05/10/2024 6:37 AM ELECTRIC SHOVEL OPERATOR [facility] LABORATORY - 05/10/2024 6:52 AM ELECTRIC SHOVEL OPERATOR Therapeutic Range 2.0-3.0 for most anticoagulated patients [...] [facility]. Aron Birch DO HEMATOLOGY Final Result LABORATORY SENDOUT INTERNAL ZIP [address] [place] [address] * (ABNORMAL) HEPATIC FUNCTION PANEL (05/10/2024 6:26 AM ELECTRIC SHOVEL OPERATOR) Pathologist [facility] ALBUMIN 3.6(L) 4.0 - 4.9 g/dL 05/10/2024 7:23 AM [facility] PROTEIN,TOTAL 6.5 6.0 - 8.0 g/dL 05/10/2024 7:23 AM [facility] BILIRUBIN,TOTAL 0.4 0.0 - 1.2 mg/dL 05/10/2024 7:23 AM [facility] BILIRUBIN,DIRECT 0.2 0.0 - 0.2 mg/dL 05/10/2024 7:23 AM [facility] BILIRUBIN,INDIRE CT 0.2 0.2 - 0.8 mg/dL 05/10/2024 7:23 AM [facility] ALK PHOSPHATASE 82 35 - 104 IU/L 05/10/2024 7:23 AM [facility] ALT (SGPT) 30 10 - 35 IU/L 05/10/2024 7:23 AM ELECTRIC SHOVEL OPERATOR LABORATORY AST (SGOT) 26 10 - 35 IU/L 05/10/2024 7:23 AM ELECTRIC SHOVEL OPERATOR LABORATORY Blood BLOOD SPECIMEN / Unknown Venipuncture / Unknown 05/10/2024 6:26 AM ELECTRIC SHOVEL OPERATOR 05/10/2024 6:37 AM ELECTRIC SHOVEL OPERATOR us Aron Birch DO CHEMISTRY Final Result LABORATORY SENDOUT INTERNAL ZIP [phone] [place] [address] * SCAN-ULTRASOUND REPORT (05/09/2024 12:00 AM ELECTRIC SHOVEL OPERATOR) Anatomical Region Laterality Modality Other us Scanner OTHER Final Result * (ABNORMAL) LIPID PANEL W REFLEX MEASURED LDL (01/20/2024 4:00 PM CDT) CHOLESTEROL,TOTAL 261(H) 100 - 199 mg/dL 01/21/2024 1:44 PM CDT [facility] Comment: Cholesterol, Total Reference Ranges Desirable <200 mg/dL Borderline 200-239 mg/dL High >=240 mg/dL TRIGLYCERIDES 252(H) <150 mg/dL 01/21/2024 1:44 PM CDT [facility] HDL CHOLESTEROL 50 >40 mg/dL 1:44 PM CDT [facility] NON-HDL CHOLESTEROL 211(H) <145 mg/dl 01/21/2024 1:44 PM CDT [facility] CHOL/HDL RATIO 5.22(H) <4.50 01/21/2024 1:44 PM CDT [facility] LDL CHOLESTEROL 161(H) <=130 mg/dL 01/21/2024 1:44 PM CDT [facility] VLDL CHOLESTEROL 50(H) <=30 mg/dL 01/21/2024 1:44 PM CDT [facility] PROVIDER ORDERED STATUS RANDOM 01/21/2024 1:44 PM CDT [facility] Blood BLOOD SPECIMEN / Unknown Venipuncture / Unknown 01/20/2024 4:00 PM CDT 01/20/2024 4:00 PM CDT us Geronimo Lamb MD CHEMISTRY Final Result [facility] [address] [place] [address], [place] * ANTI HIV 1/2 (05/01/2022 4:36 PM ELECTRIC SHOVEL OPERATOR) Pathologist [facility] HIV-1/HIV-2 ANTIBODY Non-Reacti ve Non-Reacti ve 05/04/2022 9:59 PM ELECTRIC SHOVEL OPERATOR [facility] Comment:HIV-1 p24 and HIV-1/ HIV-2 Ab not detected. Blood BLOOD SPECIMEN / Unknown Butterfly / Unknown 05/01/2022 4:36 PM ELECTRIC SHOVEL OPERATOR 05/01/2022 4:41 PM ELECTRIC SHOVEL OPERATOR us Geronimo Lamb MD SEND OUTS Final Result Performing Organization Address [facility]/ZIP Co de Phone Number [facility] [address] [place] [address], [place] * ANTI HCV (12/05/2021 9:30 AM CDT) Pathologist [facility] HEPATITIS C ANTIBODY Non-React shikha Non-React shikha 12/05/2021 9:16 PM CDT [facility] Comment:Antibodies to HCV no t detected; does not exclude the possibility of exposure to HCV. Blood BLOOD SPECIMEN / Unknown Venipuncture / Unknown 12/05/2021 9:30 AM CDT 12/05/2021 9:33 AM CDT us Geronimo Lamb MD SEND OUTS Final Result [facility] [address] [place] [id number], [place] * SCAN-MAMMOGRAPHY REPORT (02/24/2019 12:00 AM CDT) Anatomical Region Laterality Modality Other us Scanner OTHER Final Result from Last 3 Months or Most Recently Relevant to Health Maintenance Insurance [facility] MEDICARE PART A HB ONLY Advance Directives * Full Code (Latest Code Status on File) Date Activated Date Inactivated Comments 05/09/2024 10:07 PM 05/11/2024 4:49 PM Question Answer Comments Code Status Discussion: Reviewed Preferences Care Teams Winch Driver Relationship Specialty Start Date End Date Geronimo Lamb MD [address] [place] [address] PCP - General Family Practice 04/23/21 Paolo Limon MD Sleep Medicine 10/28/11 Talon Durham MD Neurology Neurology 11/26/11 Laura Gardner PsyD, LP Psychology 09/14/13 [place] [address] [place] [address] Pulmonology Pulmonary Medicine 01/22/24
--- OUTSIDE RECORDS SUMMARY | 2024-07-10 23:13 | XMS_ITS | Clinical Summary ---
Author Organization [facility] Address [address] , [address] [place] [address] Phone Care Team Providers Care Clinical Education Assistant Name Role Phone Son Jara MD Conditions or Problems Problem Name Problem Code Onset Date Status Entry Date Provider Comment Standard Description Annotate Involuntary movements 513541034 (SNOMED CT) Active Son Jara MD Abnormal involuntary movement Tremor [id number] (SNOMED CT) Active Son Jara MD Tremor Medications Medication Instructions Start Date Stop Date Generic Name ND Provider SOLIFENACIN SUCCINATE 10 MG TABS Take 1 Tablet (10 mg) by mouth once daily. solifenacin (VESICARE) 10 mg tablet [id number] Son Jara MD PROCHLORPERAZINE MALEATE 5 MG TABS Take 1 Tablet (5 mg) by mouth every 8 hours if needed for Nausea/Vomitin g. prochlorperazine (COMPAZINE) 5 mg tablet [id number] Son Jara MD OMEPRAZOLE 20 MG CPDR Take 2 Capsules (40 mg) by mouth once daily before a meal. omeprazole (PriLOSEC) 20 mg Delayed-Release capsule [id number] Son Jara MD MONTELUKAST SODIUM 10 MG TABS Take 1 Tablet (10 mg) by mouth at bedtime. montelukast (SINGULAIR) 10 mg tablet [id number] Son Jara MD mirabegron EXTENDED-release (MYRBETRIQ) 50 mg tablet Take 1 Tablet (50 mg) by mouth once daily. mirabegron EXTENDED-release (MYRBETRIQ) 50 mg tablet Son Jara MD MECLIZINE HCL 25 MG TABS Take 0.5 Tablets (12.5 mg) by mouth 3 times daily if needed for Nausea/Vomitin g. meclizine (ANTIVERT) 25 mg tablet [id number] Son Jara MD LEVOTHYROXINE SODIUM 175 MCG TABS Take 1 Tablet (175 mcg) by mouth before breakfast. levothyroxine (SYNTHROID) 175 mcg tablet [id number] Son Jara MD FEXOFENADINE HCL 180 MG TABS Take 1 tablet by mouth once daily with a meal. fexofenadine (ROJAS) 180 mg tablet [id number] Son Jara MD DIPHENHYDRAMINE HCL 25 MG CAPS Take 1 capsule by mouth each time if needed. diphenhydrAMINE (BENADRYL) 25 mg capsule [id number] Son Jara MD VITAMIN D 50 MCG (2000 UT) TABS Take 2,000 units by mouth. cholecalciferol, Vitamin D3, 2,000 unit tablet [id number] Son Jara MD BUPROPION HCL ER (XL) 150 MG [id number] null buPROPion (WELLBUTRIN XL) 150 mg Extended-Release tablet [id number] Son Jara MD IPRATROPIUM-ALBUTE ROL 0.5-2.5 (3) MG/3ML SOLN Inhale 3 mL via a nebulizer 2 times daily if needed for Shortness of Breath 1st choice or Wheezing 1st choice. albuterol-ipratrop ium (DUONEB) (2.5-0.5 mg) in 3 mL NEBULIZA [id number] Son Jara MD ALBUTEROL SULFATE HFA 108 (90 Base) MCG/ACT AERS Inhale 1-2 Puffs by mouth every 4 hours if needed for Shortness of Breath 1st choice. albuterol HFA (ProAir HFA) 90 mcg/actuation inhaler [id number] Son Jara MD ALBUTEROL SULFATE (2.5 MG/3ML) 0.083% NEBU Inhale 3 mL via a nebulizer every 6 hours if needed for Shortness Of Breath or Wheezing. albuterol (PROVENTIL) 0.083 % neb solution [id number] Son Jara MD SYMBICORT 160-4.5 MCG/ACT AERO null Symbicort 160-4. 5 mcg/actuation (160-4.5 mcg each actuation) [id number] Son Jara MD PAROXETINE HCL 40 MG TABS null PARoxetine (PAXI L) 40 mg tablet [id number] Son Jara MD Medications Administered No information [...] 2 ORDERS EEG Sleep Deprived (41min) 2 CPT-79448 EEG EXTENDED 41-60mins (END) ORDERS Obtain imaging report 02/08 ORDERS Patient Instructions [facility]-[id number] Documentation of current medicatio ns Vital Signs No information available. Immunizations No information available. Advance Directives No information available.
--- OUTSIDE RECORDS SUMMARY | 2024-07-10 23:13 | XMS_ITS | Clinical Summary ---
Author Organization [facility] Address [address] [place] [address] Care Team Providers Care Ground Operations Supervisor Name Role Phone Elsewhere, Pcp Primary Care Provider Unavailabl e Source Comments Patient records contain information from all sites at [facility]. For routine questions regarding patient records, call [phone] during business hours, M-F 8:00 AM - 5:00 PM Central Time. Record requests for emergency care only can be directed to [phone] at any time.[facility] Allergies Active Allergy Reactions Criticality Noted [...] Sex Assigned at Female 06/02/2018 2:11 PM MODEL SET ARTIST Legal Sex Female 5:08 AM MODEL SET ARTIST Gender Identity Female 06/02/2018 2:11 PM MODEL SET ARTIST Sexual Orientation Choose not to disclose 2018 2:11 PM MODEL SET ARTIST Last Filed Vital Signs Vital Sign Reading [...] this topic Medical Devices Implanted Type Area Speeder Hand Device Identifier Shelf Expiration Date Model / Serial / Lot Ear Implant- [id number] Implanted:11/24 (Quantity not on file) Ear Implant Ear [facility] Bernice Vega TORP Plasti-pore [id number] / / [id number] Description:[facility], [place], [place]. Ear implant-Vega TOPR Plasti-pore MRI Safe Procedures Procedure Name Priority Date/Time Associated Diagnosis Comments THYROID-STIMULATING HORMONE-SENSITIVE (S-TSH) Routine 10/27/2018 3:42 PM CDT Hypothyroidism Primary BASIC METABOLIC PANEL, S/P Routine 03/11/2018 1:58 PM CDT Dizziness Diplopia LIPID PANEL, S Routine 06/10/2016 10:40 AM MODEL SET ARTIST from Last 3 Months or Most Recently Relevant to Health Maintenance Results * (ABNORMAL) S-TSH (Thyroid-Stimulating Hormone - Sensitive) (10/27/2018 3:42 PM CDT) TSH, Sensitive 10.7(H) 0.3 - 4.2 mIU/L 10/27/2018 5:20 PM CDT Comment: Biotin has been identified by the console assembler as a potential interfering substance. Higher concentrations of biotin may be found in multivitamins, hair/nail supplements, and workout supplements. If the result does not match clinical observations, repeat testing after patient refrains from the use of supplements for at least 12 hours. Blood (Blood, Venous) 10/27/2018 3:42 PM CDT 10/27/2018 3:43 PM CDT us Deanne Tsang P.A.-C. LAB BLOOD ADD-ON Final Result [facility] [address] [place] [address], [facility] * Basic Metabolic Panel (03/11/2018 1:58 PM CDT) Potassium, S 4.0 3.6 - 5.2 mmol/L 03/11/2018 2:29 PM CDT [facility] Sodium, S 141 135 - 145 mmol/L 03/11/2018 2:29 PM CDT [facility] Chloride, S 101 98 - 107 mmol/L 03/11/2018 2:29 PM CDT [facility] Bicarbonate, S 27 22 - 29 mmol/L 03/11/2018 2:29 PM CDT [facility] Anion Gap 13 7 - 15 03/11/2018 2:29 PM CDT [facility] BUN (Blood Urea Nitrogen), S 12 6 - 21 mg/dL 03/11/2018 2:29 PM CDT [facility] Creatinine 0.62 0.59 - 1.04 mg/dL 03/11/2018 2:29 PM CDT [facility] eGFR-Non Black/ >90 >=60 mL/min/BSA 03/11/2018 2:29 PM CDT [facility] Comment: ----ADDITIONAL INFORMATION---- Estimated GFR calculated using the 2009 CKD_EPI creatinine equation. eGFR-Black/Afri can [place] >90 >=60 mL/min/BSA 03/11/2018 2:29 PM CDT [facility] Comment: ----ADDITIONAL INFORMATION---- Estimated GFR calculated using the 2009 CKD_EPI creatinine equation. Calcium, Total, S 9.4 8.6 - 10.0 mg/dL 03/11/2018 2:29 PM CDT [facility] Glucose, S 95 70 - 140 mg/dL 03/11/2018 2:29 PM CDT [facility] Blood (Blood, Venous) 03/11/2018 1:58 PM CDT 03/11/2018 1:58 PM CDT Deanne Tsang P.A.-C. LAB BLOOD ADD-ON Final Result Performing Organization Address City/State/[facility] Co de Phone Number [facility] [address] * (ABNORMAL) Lipid Panel (06/10/2016 10:40 AM MODEL SET ARTIST) [facility] Cholesterol, Total 275(H) <=199 MGDL [...] for FH and FDB is available through [email or web address] [email or web address]: FH/ADH Genetic Reflex Panel (test ADHP). Acquired (non-genetic) causes of markedly increased LDL cholesterol include cholestatic liver disease due to the presence of LpX. If a genetic form of hypercholesterolemia is suspected, family studies including biochemical testing for lipids (total cholesterol,triglycerides, LDL cholesterol and HDL cholesterol) are recommended. Please contact the laboratory at or the on-line test catalog at [employer] for information about how to order these tests or to speak with a genetic counselor. Further interpretation would require clinical information. Total Cholesterol/HDL Ratio 5 POWERCHART Blood 06/10/2016 10:4 0 AM MODEL SET ARTIST us Ana Chery M.D. LAB BLOOD ADD-ON Final Re sult POWERCHART from Last 3 Months or Most Recently Relevant to Health Maintenance Insurance [facility] Care Teams Ground Operations Supervisor Relationship Specialty Start Date End Date Elsewhere, Pcp PCP - General Internal Medicine 12/04/18
--- OUTSIDE RECORDS SUMMARY | 2024-07-10 23:13 | XMS_ITS | CCD ---
Author Organization Unknown Care Team Providers Care Furniture Technician Name Role Phone Bariatric Physician, [place] Primary Care Provider Unava ilable Unavailable Chronic Care Management Unavaila ble Summary Purpose DataExchange Insurance Providers Payer name Policy type / Coverage type Covered green party ID Effective Begin Date Effective End Date [facility] Commercial Insurance [id number] Unkn own Family History Family History data not found Medication Administered No Medication Administered data Reason For Visit No Reason For Visit data
[2024-07-10 23:20] VITALS: BP 128/90; PULSE 96; RESP 20; TEMP 36.7; O2SAT 93; BMI 54.6
--- NOTE | 2024-07-10 23:35 | ED.GENADULT ---
HPI - General Adult General Chief complaint: Shortness of Breath/Dyspnea Stated complaint: Asthma exacerbation Time Seen by Provider: 07/10/24 23:14 History of Present Illness HPI narrative: c/o shortness of breath per EMS pt has asthma and is on 2 L NC at home, today while at rest pt was feeling SOB. pt. called EMS when EMS arrived pt was at 90% on 2L NC . pt states she has pain in her throat due to vocal cord disfunction due to GERD 49-year-old woman presenting to the emergency department with concern of shortness of breath. Elevating at [place]. When I enter the room Denae is rubbing on her anterior chest. Seems uncomfortable. Says that she has actually been hurting here since yesterday. Hurts but kind of feels better to have a press on her anterior chest. She denies pleuritic pain actually. At the time I am interviewing Paloma she is on 2 L of nasal cannula oxygenating 93-94%. She has been more short of breath lately. Had received a nebulization shortly before staff called for EMS. She says is not so much that she should short of air early she knows that she is oxygenating okay she just feels like she is not moving air very well. This leads to worsening anxiety. History of asthma, COPD, sleep apnea 90% on 2 L is not too far off baseline it appears on review of record. Related Data Home Medications ?Medication ?Instructions ?Recorded ?Confirmed albuterol sulfate 90 mcg/actuation 1 - 2 puff inhalation Q4H PRN 11/30/21 06/14/24 aerosol inhaler mirabegron 50 mg tablet,extended 50 mg PO DAILY 11/30/21 06/16/24 release 24 hr (Myrbetriq) montelukast 10 mg tablet 10 mg PO HS 11/30/21 06/16/24 omeprazole 20 mg capsule,delayed 40 mg PO DAILY 02/26/22 06/16/24 release levetiracetam 750 mg tablet 750 mg PO BID 11/25/22 06/16/24 (Keppra) cholecalciferol (vitamin D3) 50 50 mcg PO DAILY 01/30/23 06/16/24 mcg (2,000 unit) capsule paroxetine HCl 40 mg tablet 40 mg PO DAILY 01/30/23 06/16/24 levothyroxine 100 mcg tablet 100 mcg PO DAILY 10/16/23 06/16/24 potassium chloride 10 mEq 20 meq PO DAILY 10/16/23 06/16/24 tablet,extended release aluminum-mag hydroxide-simethicone 5 - 10 ml PO 5XD PRN 03/20/24 06/14/24 200 mg-200 mg-20 mg/5 mL oral susp (Maalox Advanced) dextromethorphan HBr 10 mg/5 mL 5 - 10 mg PO Q4-6H PRN 03/20/24 06/14/24 oral syrup diphenhydramine HCl 25 mg capsule 25 - 50 mg PO Q8H PRN 03/20/24 06/16/24 (Banophen) ibuprofen 200 mg capsule 200 - 400 mg PO Q4-6H PRN 03/20/24 06/16/24 loperamide 2 mg tablet 1 mg PO Q6H PRN 03/20/24 06/14/24 (Anti-Diarrheal (loperamide)) magnesium hydroxide 400 mg/5 mL 15 - 30 ml PO DAILY PRN 03/20/24 06/14/24 oral suspension (Milk of [place]) terbinafine HCl 1 % topical cream applic topical Q12H 03/20/24 06/14/24 Previous Rx's ?Medication ?Instructions ?Recorded albuterol sulfate 2.5 mg/3 mL 2.5 mg (3 mL) inhalation Q8H PRN 02/02/23 (0.083 %) solution for nebulization #1 mL budesonide-formoterol HFA 160 2 puff inhalation BID #1 g 02/02/23 mcg-4.5 mcg/actuation aerosol inhaler (Symbicort) furosemide 40 mg tablet 40 mg PO DAILY #30 tabs 02/02/23 tiotropium bromide 2.5 2 puff inhalation DAILY #1 g 02/02/23 mcg/actuation mist for inhalation (Spiriva Respimat) azithromycin 250 mg tablet See Rx Instructions PO .COMPLEX #6 06/14/24 tabs azithromycin 250 mg tablet See Rx Instructions PO .COMPLEX #6 07/04/24 (Zithromax) tabs prednisone 20 mg tablet 20 mg PO BID #10 tabs 07/04/24 prednisone 10 mg tablet 10 mg PO DIRECTED 4 days #4 tabs 07/11/24 prednisone 20 mg tablet 20 mg PO BID 4 days #8 tabs 07/11/24 Allergies Allergy/AdvReac Type Severity Reaction Status Date / Time azithromycin Allergy Intermediate Bloody Verified 07/10/24 23:20 Stools latex Allergy Intermediate Rash Verified 07/10/24 23:20 oxycodone Allergy Intermediate Agitated Verified 07/10/24 23:20 scopolamine Allergy Intermediate Tremors Verified 07/10/24 23:20 acetaminophen (From Percocet) Allergy Mild Verified 07/10/24 23:20 basil Allergy Rash Verified 07/10/24 23:20 Review of Systems Status of ROS: Reports: 6 or more systems reviewed and unremarkable except as noted in History and below [facility] Medical History Hypothyroidism ?E03.9 - Hypothyroidism, unspecified (ICD-10) Acute and chronic respiratory failure with hypoxia ?J96.21 - Acute and chronic respiratory failure with hypoxia (ICD-10) 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 - Unspecified convulsions (ICD-10) RODRICK (obstructive sleep apnea) ?G47.33 - Obstructive sleep apnea (adult) (pediatric) (ICD-10) ADHD ?F90.9 - Attention-deficit hyperactivity disorder, unspecified type (ICD-10) Hyperthyroidism ?E05.90 - Thyrotoxicosis, unspecified without thyrotoxic crisis or storm (ICD-10) Hydrocephalus ?G91.9 - Hydrocephalus, unspecified (ICD-10) Hyperlipidemia ?E78.5 - Hyperlipidemia, unspecified (ICD-10) Anxiety and depression ?F41.9 - Anxiety disorder, unspecified (ICD-10) ?F32.A - Depression, unspecified (ICD-10) Asthma ?J45.909 - Unspecified asthma, uncomplicated (ICD-10) Surgical History History of ear surgery ?Z98.890 - Other specified postprocedural states (ICD-10) History of strabismus surgery ?Z98.890 - Other specified postprocedural states (ICD-10) Social History Narrative: on disability since 2009; lives alone with her cat. nonsmoker, no drugs, no significant tobacco history adopted, her two adopted aunts are her family contacts. What is your current living situation?: I presently have a place to live Problems where you live: no known problems Problems where you live details: None In the past 12 months, utilities in danger of being shut off: no In past 12 months, lack of transportation kept you from medical appts, meetings, work, or getting things needed for daily living: no In the past 12 mos, have been you worried that your food would run out before you had money to buy more?: never true In the past 12 mos, the food you bought just didn't last and you didn't have money to buy more?: never true Highest level of school completed/degree received: Associate degree: academic program Smoking Status: Former smoker What tobacco products do you use: cigarettes Smoking quit date/years: <= 15 years ago Do you use any of these nicotine containing products: None Second hand tobacco smoke exposure: Yes How often do you have a drink containing alcohol: never How often do you have six or more drinks on one occasion: Never AUDIT-C Alcohol total score: 0 Non-prescribed substance use: denies use Caffeine: Yes (Pop ocassionally) How often does anyone, including family, friends and others, physically hurt you: never How often does anyone, including family, friends and others, insult or talk down to you: never How often does anyone, including family, friends and others, threaten you with harm: never How often does anyone, including family, friends and others, scream or curse at you: never service: No Exam Narrative: Exam Narrative: Seems uncomfortable. Little distracted. Right eye deviation laterally. Mildly labored in her breathing with prolonged expiratory phase and predominantly expiratory wheezing. Diffuse trace crepitus though as well. Diminished breath sounds somewhat. Discomfort to her chest is reportedly reproducible palpation by myself across the anterior chest. She is well-perfused peripherally. Oropharynx is a little sticky. Const: Vital Signs, click to edit/add: Vital Signs - 24 hr 07/10/24 23:20 07/10/24 23:43 07/10/24 23:43 Temperature 98.1 F Pulse Rate Pulse Rate [Pulse Oximeter] 96 Respiratory Rate 20 Blood Pressure Blood Pressure [Ri ght Forearm] 128/90 H Pulse Oximetry 93 93 93 Oxygen Delivery Me thod Nasal Cannula Nasal Cannula Oxygen Flow Rate 2 2 07/11/24 02:45 07/11/24 04:05 07/11/24 04:54 Temperature 98.1 F Pulse Rate 95 98 Pulse Rate [Pulse Oximeter] 91 Respiratory Rate 20 18 18 Blood Pressure 141/104 H 152/112 H Blood Pressure [Ri ght Forearm] 132/78 Pulse Oximetry 92 99 95 Oxygen Delivery Me thod Nasal Cannula Nasal Cannula Oxygen Flow Rate 2 2 Documenting provider has reviewed patient's vital signs: yes Course Vital Signs Vital signs: Initial Vital Signs Respiratory Effort Normal, Spontaneous, Non-Labored 07/10/24 23:19 Respiratory Depth Normal 07/10/24 23:19 Respiratory Pattern Normal 07/10/24 23:19 Vital Signs Temperature 98.1 F 07/10/24 23:20 Pulse Rate 96 07/10/24 23:20 Respiratory Rate 20 07/10/24 23:20 Blood Pressure 128/90 H 07/10/24 23:20 Pulse Oximetry 93 07/10/24 23:20 Oxygen Delivery Method Nasal Cannula 07/10/24 23:20 Oxygen Flow Rate 2 07/10/24 23:20 Temperature 98.1 F 07/11/24 04:54 Pulse Rate 91 07/11/24 04:54 Respiratory Rate 18 07/11/24 04:54 Blood Pressure 132/78 07/11/24 04:54 Pulse Oximetry 95 07/11/24 04:54 Oxygen Delivery Method Nasal Cannula 07/11/24 04:54 Oxygen Flow Rate 2 07/11/24 04:54 Medications Administered Medications: Discontinued Medications Generic Name Dose Route Start Last Admin Trade Name Jordyq PRN Reason Stop Dose Admin Albuterol 2.5 mg 07/11/24 03:59 07/11/24 04:02 Albuterol Sulfate 2.5 Mg/3 Ml Vial.Neb NEB 07/11/24 04:00 2.5 mg ONCE ONE Administration Albuterol/Ipratropium 1 neb 07/11/24 00:04 07/11/24 00:13 Iprat-Albut 0.5-2.5 Mg/3 Ml Neb 07/11/24 00:05 1 neb ONCE ONE Administration Diphenhydramine HCl 12.5 mg 07/11/24 01:34 07/11/24 01:49 Diphenhydramine 50 Mg/Ml Inj IVP 07/11/24 01:35 12.5 mg ONCE ONE Administration Furosemide 20 mg 07/11/24 03:59 07/11/24 04:02 Furosemide 10 Mg/Ml Inj IVP 07/11/24 04:00 20 mg ONCE ONE Administration Magnesium Sulfate/Dextrose 1 gm in 100 mls @ 100 mls/hr 07/11/24 00:07 07/11/24 01:45 Magnesium Sulf 1 G/100 Ml-D5w IVPB 07/11/24 01:06 Infused ONCE ONE Infusion Methylprednisolone Sodium Succinate 93.75 mg 07/11/24 00:04 07/11/24 00:17 Methylprednisolone Sod Succ 62.5 Mg/Ml (125) IVP 07/11/24 00:05 93.75 mg ONCE ONE Administration Medical Decision Making MDM Narrative Medical decision making narrative: Presumably costochondritis or as suggested during triage might be some discomfort related to GERD. Or simply because of more recent shortness of breath and increased work of breathing. Significant pulmonary disease. Will reneb here. Continue monitor oximetry. Look for evidence of infection, pneumonia. I am not sure is too far off of her baseline with oxygenation. With significant history of asthma concerning exacerbations the past will go ahead and give magnesium here today. IV Solu-Medrol and initial DuoNeb. Given DuoNeb and continued monitoring with minimal change in oxygenation. Begins to complain of feeling itchy. Given diphenhydramine 12.5 mg. Chest x-ray independently reviewed by me looks to show some vascular congestion and some cardiomegaly. Indication: Shortness of breath, chest pain Technique: Two views of the chest Comparison: Chest radiograph performed 07/04/2024 Findings/Impression: Findings suspicious for heart failure and mild volume overload. On reassessment just notes how she feels awful, specifically out of it. I think this might be related to the diphenhydramine, possibly magnesium. Does appear rather sleepy now. Maintaining oxygenation. White count is moderately elevated. Reviewing records; was recently on a steroid course. This may be related. Perhaps needed longer course and a bit of taper. Currently is receiving azithromycin. Does take furosemide regularly. Perhaps some diuresis and would be beneficial and congestion is related to this discomfort she has been feeling in her chest. 20 mg of IV Lasix given. Unfortunately has subsequent episode of incontinence. Appears little more congestion and and wheezy on reassessment. Does feel she could benefit from another nebulization. Pending albuterol re nebulization has brief pseudo-seizure shaking side to side for less than 10 seconds. I am present for this and speak to her and she immediately comes to. Had triggered the call button actually just prior to this episode. Following nebulization feels improved. Oxygenation still maintained with 2 L via nasal cannula. She does feel she can head home. Medical Records Medical records reviewed: Yes I reviewed the patient's medical records Lab Data Lab results reviewed: Yes I reviewed the patient's lab results Labs: Lab Results 07/11/24 07/11/24 07/11/24 Range/Units 00:05 00:20 02:56 WBC 14.74 H (4.50-11.00) K/uL RBC 4.05 (4.00-5.20) m/uL Hgb 11.8 L (12.0-16.0) gm/dL Hct 38.8 (33.0-51.0) % MCV 96 (80-100) fL MCH 29 (26-34) pg MCHC 30 L (32-36) gm/dL RDW Coeff of Tomy 13.8 (11.5-15.5) % Plt Count 202 (140-440) K/uL Neut % (Auto) 67.6 (42.0-72.0) % Lymph % (Auto) 21.2 (20-44) % [place]ven % (Auto) 6.0 (0.0-11.0) % Eos % (Auto) 2.4 (0.0-7.0) % Baso % (Auto) 0.3 (0.0-3.0) % Neut # (Auto) 10.00 H (1.7-7.0) K/uL Lymph # (Auto) 3.10 H (0.90-2.90) K/uL [place] # (Auto) 0.90 (0.00-0.90) K/UL Eos # (Auto) 0.40 (0.00-0.50) K/uL Baso # (Auto) 0.00 (0.00-0.30) K/uL Abs Immat Gran (auto) 0.40 H (0.00-0.30) K/uL Imm/Tot Granulo (auto) 2.5 % Sodium 139 (135-149) mmol/L Potassium 3.9 (3.6-5.1) mmol/L Chloride 94 L (96-114) mmol/L Carbon Dioxide 38 H (20-32) mmol/L Anion Gap 7 (7-15) mEq/L BUN 24 (5-24) mg/dL Creatinine 0.7 (0.5-1.5) mg/dL Estimated Creat Clear 179.42 Estimated GFR 107 ml/min Glucose 153 H (60-115) mg/dL Calcium 8.5 (8.4-10.6) mg/dL Magnesium 2.0 (1.5-2.6) mg/dL Troponin I < 0.01 L (0.01-0.04) ng/mL C-Reactive Protein 1.1 H (0.5-1.0) mg/dL NT-Pro-B Natriuret Pep 344 pg/mL SARS-CoV-2 (PCR) Negative SARS-CoV-2 (Negative) Influenza Type A (PCR) Negative PCR FLU A (Negative) Influenza Type B (PCR) Negative PCR FLU B (Negative) RSV (PCR) Negative PCR RSV (Negative) Lab Acknowledgement Test Added Discharge Plan Discharge Clinical Impression: Asthma exacerbation in COPD, Chest congestion, Hypoxia Patient Disposition: Home w/ Parent or Adult Condition: Improved Additional Instructions: Will be restarting prednisone for 4 days. Schedule your albuterol nebulizations 3 times daily over the next 3 days. Otherwise use as needed, as prescribed. Sending in prescription for prednisone to your pharmacy. You do not need to have a dose of prednisone until later afternoon today. Prescriptions: New prednisone 20 mg tablet 20 mg PO BID 4 Days Qty: 8 0RF Rx Instructions: Take 20 mg b.i.d. for 1 day; 10 mg b.i.d. for 3 days. prednisone 10 mg tablet 10 mg PO DIRECTED 4 Days Qty: 4 0RF Rx Instructions: Take 20 mg p.o. b.i.d. day 1; 10 mg p.o. b.i.d. days 2 through 4 No Action azithromycin 250 mg tablet See Rx Instructions PO .COMPLEX Qty: 6 0RF Rx Instructions: For 250 mg dose pack: take 500 mg today (day 1), then 250 mg for 4 days (days 2-5) PO levetiracetam [Keppra] 750 mg tablet 750 mg PO BID potassium chloride 10 mEq tablet extended release 20 meq PO DAILY Rx Instructions: take 2 tablets daily levothyroxine 100 mcg tablet 100 mcg PO DAILY diphenhydramine HCl [Banophen] 25 mg capsule 25 - 50 mg PO Q8H PRN Rx Instructions: allergies ibuprofen 200 mg capsule 200 - 400 mg PO Q4-6H PRN magnesium hydroxide [Milk of Magnesia] 400 mg/5 mL suspension 15 - 30 ml PO DAILY PRN terbinafine HCl 1 % cream topical Q12H alum-mag hydroxide-simeth [Maalox Advanced] 200-200-20 mg/5 mL suspension 5 - 10 ml PO 5XD PRN Rx Instructions: administer between meals and at bedtime loperamide [Anti-Diarrheal (loperamide)] 2 mg tablet 1 mg PO Q6H PRN dextromethorphan HBr 10 mg/5 mL syrup 5 - 10 mg PO Q4-6H PRN montelukast 10 mg tablet 10 mg PO HS mirabegron [Myrbetriq] 50 mg tablet extended release 24 hr 50 mg PO DAILY Patient Comments: albuterol sulfate 90 mcg/actuation HFA aerosol inhaler 1 - 2 puff INHALATION Q4H PRN cholecalciferol (vitamin D3) 50 mcg (2,000 unit) capsule 50 mcg PO DAILY paroxetine HCl 40 mg tablet 40 mg PO DAILY Patient Comments: furosemide 40 mg Tablet 40 mg PO DAILY Qty: 30 0RF albuterol sulfate 2.5 mg /3 mL (0.083 %) solution for nebulization 2.5 mg inhalation Q8H PRNQty: 1 0RF budesonide-formoterol [Symbicort] 160-4.5 mcg/actuation HFA aerosol inhaler 2 puff INHALATION BID Qty: 1 0RF Spiriva Respimat 2.5 mcg/actuation mist 2 puff inhalation DAILY Qty: 1 0RF azithromycin [Zithromax] 250 mg tablet See Rx Instructions .ROUTE .COMPLEX Qty: 6 0RF Rx Instructions: For 250 mg dose pack: take 500 mg today (day 1), then 250 mg for 4 days (days 2-5) prednisone 20 mg tablet 20 mg PO BID Qty: 10 0RF omeprazole 20 mg capsule,delayed release(DR/EC) 40 mg PO DAILY Follow Up/Referrals: Geronimo Lamb MD [Primary Care Provider] - Stand Alone Forms: [employer] Info Instructions
[2024-07-10 23:43] VITALS: O2SAT 93
--- OUTSIDE RECORDS SUMMARY | 2024-07-11 00:09 | XMS_ITS | Clinical Summary ---
Author Organization [facility] Address [place], [place] [address] Care Team Providers Care Human Service Worker Name Role Phone Paolo Limon MD Unavailable Talon Durham MD Unavailable [phone] Laura Gardner PsyD, Unavailable [phone] Geronimo Lamb MD Primary Care Provider Luis Santos DO Unavailable [phone] Allergies Active Allergy Reactions Criticality Noted Date [...] 02/23/200911/2011 Dizziness 06/03/2024 Overview (04/23/2021): Eval by [facility] neurology 2018. Thought to be functional. Referred to psychiatry. Encounters Date Type Department Care Team Description 07/05/2024 2:30 PM TABLE OPERATOR Office Visit [facility] [address] [place] [address] Geronimo Lamb MD Follow Up; ER Follow up ([facility], 06/16/2024 and 07/04/2024) 07/05/2024 Travel 07/04/[address] [facility] Scanner 1 scan: (1-Ord) [facility], CHEST 2V, 07/04/2024 06/29/2024 Telephone [facility] [address] [facility] [place] [address] Geronimo Lamb MD Medication Management 06/29/2024 Refill [facility] [address] [place] [address] Geronimo Lamb MD Refill Request (Montelukast) 06/16/2024 Orders Only [facility] Scanner 1 scan: (1-Ord) [place], CT CHEST WO CON, 06/16/2024 06/16/2024 Orders Only [facility] Scanner 1 scan: (1-Ord) [place], HEAD/BRAIN WO CON, 06/16/2024 06/11/2024 9:00 AM TABLE OPERATOR - 06/11/2024 11:59 PM TABLE OPERATOR Hospital Encounter [facility] [address] [place] [address] Luis Santos, DO 06/04/2024 9:04 AM TABLE OPERATOR - 06/04/2024 11:59 PM TABLE OPERATOR Hospital Encounter [facility] [address] [place] [place] [address] Luis Santos, DO 06/03/2024 2:05 PM TABLE OPERATOR Office Visit [facility] [address] [place] [address] Geronimo Lamb MD ER Follow up ([facility], 05/24/2024, pneumonia ) 06/03/2024 Travel 05/25/2024 Orders Only [address] [address] Geronimo Lamb MD <No scans attached> 05/24/2024 Orders Only [facility] Scanner 1 scan: (1-Ord) [facility], XR CHEST 2V, 05/24/2024 05/17/2024 Refill [facility] [address] [place] [address] Geronimo Lamb MD Refill Request (Prevail XL [id number]) 05/14/2024 11:15 AM TABLE OPERATOR Office Visit [address] [address] Fercho Salcedo MD Hospital F/U (ACUTE CHOLECYSTISIS- feeling better ) 05/14/2024 Refill [facility] [address] [place] [address] Geronimo Lamb MD Refill Request (Protective Underwear Ex-large) 05/14/2024 Travel 05/12/2024 2:00 PM TABLE OPERATOR Office Visit [facility] [address] [place] [address] Paolo Limon MD Sleep Follow-up 05/12/2024 Travel 05/12/2024 Patient Outreach [facility] [address] [place] [address] Alexandria Pulido, RN Primary RN Care Management; Hospital F/U (LACE 43) 05/09/2024 9:50 PM TABLE OPERATOR - 05/11/2024 2:49 PM TABLE OPERATOR Hospital Encounter [address] [address] s, Hospitalist [facility] Aron Birch, Discharge Disposition: Home Self Care 05/09/2024 Orders Only [facility] Scanner 1 scan: (1-Ord) [facility], US GALLBLADDER, 05/09/2024 05/09/2024 Orders Only [facility] Scanner 1 scan: (1-Ord) [facility], ABDOMEN PELVIS W/CONTRAST, 05/09/2024 05/05/2024 3:20 PM TABLE OPERATOR Office Visit [facility] [address] [place] [address] Geronimo Lamb MD ER Follow up ([facility], 04/21/2024, syncope ); DME Supply ([facility] - [employer]) 05/05/2024 Telephone [facility] [address] [place] [address] Geronimo Lamb MD Follow Up 05/05/2024 Travel 04/23/2024 Refill [facility] [address] [place] [address] Geronimo Lamb MD Refill Request (Levothyroxine) 04/21/2024 Telephone [facility] [address] [place] [address] Geronimo Lamb MD Prior Authorization (tirzepatide, weight loss, (Zepbound) 2.5 mg/0.5 mL pen - DENIED/EXCLUDED) 04/15/2024 Telephone [facility] [address] [place] [address] Geronimo Lamb MD DME Supply [...] on file Legal Sex Female 6:31 AM TABLE OPERATOR Gender Identity Not on file Sexual Orientation Not on file Obstetrics History Last Filed Vital Signs Vital Sign Reading Time Taken Comments Blood Pressure 152/87 07/05/2024 2:36 PM TABLE OPERATOR Pulse 109 07/05/2024 2:36 PM TABLE OPERATOR Temperature 36.6 C (97.9 F) 05/11/2024 8:03 AM TABLE OPERATOR Respiratory Rate 18 05/11/2024 8:03 AM TABLE OPERATOR Oxygen Saturation 92% 07/05/2024 2:3 6 PM TABLE OPERATOR 2L via nasal cannula Inhaled Oxygen Concentration - - Weight 113.7 kg (250 lb 9.6 oz) 07/05/2024 2:36 PM TABLE OPERATOR Height 142.2 cm (4' 8) 05/12/2024 2:07 PM TABLE OPERATOR Body Mass Index 56.18 05/12/2024 2:07 PM TABLE OPERATOR Plan of Treatment Upcoming Encounters Date Type Department Care Team (Late st Contact Info) Description 07/13/2024 11:20 AM TABLE OPERATOR Office Visit [facility] [address] [place] [address] Geronimo Lamb MD [address] [place] [address] 07/20/2024 11:00 AM TABLE OPERATOR Office Visit [facility] [address] [facility] [place] [address] Heather Cruz PA [address] [facility] [place] [address] 07/21/2024 10:30 AM TABLE OPERATOR Office Visit [facility] [address] [place] [address] Geronimo Lamb MD [address] [place] [address] 07/23/2024 9:00 AM TABLE OPERATOR Appointment [facility] [address] [place] [place] [address] 08/06/2024 9:15 AM CDT Appointment [facility] [address] [facility] [facility] [place] [address] 08/18/2024 12:00 PM CDT Office Visit [facility] [address] [facility] [address] [place] [phone] Sadqi Lujan PA [address] [facility] [facility] [address] [place] [address] 08/19/2024 3:00 PM CDT Office Visit [facility] [address] [place] [address] Paolo Limon MD [address] [place] [address] 08/25/2024 10:00 AM CDT Office Visit [facility] [address] [place] [address] Paolo Limon MD [address] [place] [address] Health Maintenance Due Date Last Done Comments [...] Diagnosis Comments SCAN-RADIOLOGY REPORT 07/04/2024 12:00 AM TABLE OPERATOR SCAN-CT INTERPRETATION 5 12:00 AM TABLE OPERATOR SCAN-CT INTERPRETATION 5 12:00 AM TABLE OPERATOR COVID/FLU/RSV PANEL Routine 06/03/2024 2 :37 PM TABLE OPERATOR Flu-like symptoms SCAN-RADIOLOGY REPORT 05/24/2024 12:00 AM TABLE OPERATOR NM HEPATOBILIARY IMAGING RICHARD 05/10/2024 1:58 PM TABLE OPERATOR SCAN CORRESP-LABORATORY RESULTS 05/10/2024 10:49 AM TABLE OPERATOR SCAN CORRESP-IMAGING 05/10/2024 10:43 AM TABLE OPERATOR HEPATIC FUNCTION PANEL Early AM 4 6:26 AM TABLE OPERATOR PROTIME-INR Early AM 05/10/2024 6:26 AM TABLE OPERATOR WHITE BLOOD COUNT Early AM 05/10/2024 6:2 6 AM TABLE OPERATOR HEMOGLOBIN Early AM 05/10/2024 6:26 AM TABLE OPERATOR PLATELET COUNT Early AM 05/10/2024 6:26 AM TABLE OPERATOR SODIUM Early AM 05/10/2024 6:26 AM TABLE OPERATOR POTASSIUM Early AM 05/10/2024 6:26 AM TABLE OPERATOR CREATININE Early AM 05/10/2024 6:26 AM TABLE OPERATOR SCAN-ULTRASOUND REPORT 4 12:00 AM TABLE OPERATOR SCAN-CT INTERPRETATION 12:00 AM TABLE OPERATOR LIPID PANEL W REFLEX MEASURED LDL Routine 01/20/2024 4:00 PM CDT Hyperlipidemia, unspecified hyperlipidemia type ANTI HIV 1/2 Routine 05/01/2022 4:36 PM TABLE OPERATOR Encounter for screening for HIV ANTI HCV Routine 12/05/2021 9:30 AM CDT Need for hepatitis C screening test SCAN-MAMMOGRAPHY REPORT 02/24/2019 12:00 AM CDT from Last 3 Months or Most Recently Relevant to Health Maintenance Results * SCAN-RADIOLOGY REPORT (07/04/2024 12:00 AM TABLE OPERATOR) Only the most recent of2 resultswithin the time period is included. Anatomical Region Laterality Modality Other us Scanner OTHER Final Result * SCAN-CT INTERPRETATION (06/16/2024 12:00 AM TABLE OPERATOR) Only the most recent of3 resultswithin the time period is included. Anatomical Region Laterality Modality Other us Scanner OTHER Final Result * COVID/FLU/RSV PANEL (06/03/2024 2:37 PM TABLE OPERATOR) COVID 19 [facility] Negative Negative 06/03/2024 11:44 PM TABLE OPERATOR [facility] Comment:All PCR tests are lopez bject to false negative result due to variability in viral load and collection technique. A negative result does not rule out a SARS-CoV-2 infection. Clinical correlation required. INFLUENZA A PCR Negative 11:44 PM TABLE OPERATOR [facility] TRAL LABORATORY INFLUENZA B PCR Negative 11:44 PM TABLE OPERATOR [facility] TRA LABORATORY Respiratory Syncytial Virus Negative 06/03/2024 11:44 PM TABLE OPERATOR [facility] Swab NASOPHARYNGEAL SWAB / Unknown Non-Blood / Unknown 06/03/2024 2:37 PM TABLE OPERATOR 06/03/2024 2:38 PM TABLE OPERATOR Geronimo Lamb MD MICROBIOLOGY Final Result [facility] [address] [place] [address], * NM HEPATOBILIARY IMAGING (05/10/2024 1:58 PM TABLE OPERATOR) Anatomical Region Laterality Modality LIVER Nuclear Medicine 05/10/2024 1:58 PM TABLE OPERATOR Impressions 05/10/2024 2:21 PM TABLE OPERATOR Negative for acute cholecystitis. Narrative 05/10/2024 2:21 PM TABLE OPERATOR For Patients: As a result of [...] * SCAN CORRESP-LABORATORY RESULTS (05/10/2024 10:49 AM TABLE OPERATOR) Narrative 05/10/2024 10:49 AM TABLE OPERATOR Ordered by an unspecified provider. us Other Clinical Staff OTHER Final Resul t * SCAN CORRESP-IMAGING (05/10/2024 10:43 AM TABLE OPERATOR) Anatomical Region Laterality Modality Other Narrative 05/10/2024 10:43 AM TABLE OPERATOR Ordered by an unspecified provider. us Other Clinical Staff OTHER Final Resul t * PLATELET COUNT (05/10/2024 6:26 AM TABLE OPERATOR) PLATELET COUNT 202 140 - 440 thou/cu mm 05/10/2024 6:48 AM TABLE OPERATOR [facility] MPV 10.1 6.5 - 11.0 fL 05/10/2024 6:48 AM TABLE OPERATOR [facility] Blood BLOOD SPECIMEN / Unknown Venipuncture / Unknown 05/10/2024 6:26 AM TABLE OPERATOR 05/10/2024 6:37 AM TABLE OPERATOR Aron Piero Gravesgregoria ALEJANDRO HEMATOLOGY Final Result [facility] SENDOUT [place]IP [address] [address] [place] [address] * WHITE BLOOD COUNT (05/10/2024 6:26 AM TABLE OPERATOR) WHITE BLOOD COUNT 7.6 4.5 - 11.0 thou/cu mm 05/10/2024 6:48 AM TABLE OPERATOR [facility] NRBC 0.0 % 05/10/2024 6:48 AM TABLE OPERATOR [facility] ABS NRBC 0.0 thou /cu mm 05/10/2024 6:48 AM TABLE OPERATOR [facility] Blood BLOOD SPECIMEN / Unknown Venipuncture / Unknown 05/10/2024 6:26 AM TABLE OPERATOR 05/10/2024 6:37 AM TABLE OPERATOR us Aron Birch DO HEMATOLOGY Final Result Performing Organization Address City/[facility]/ZIP Co de Phone Number [facility] SENDOUT [place] ZIP [address] [place] [address] * HEMOGLOBIN (05/10/2024 6:26 AM TABLE OPERATOR) HEMOGLOBIN 12.4 12.0 - 16.0 g/dL 05/10/2024 6:48 AM TABLE OPERATOR [facility] MCV 92 80 - 100 fL 05/10/2024 6:48 AM TABLE OPERATOR [facility] Blood BLOOD SPECIMEN / Unknown Venipuncture / Unknown 05/10/2024 6:26 AM TABLE OPERATOR 05/10/2024 6:37 AM TABLE OPERATOR Aron Piero Eyal DO HEMATOLOGY Final Result [facility] SENDOUT [place] [address] [address] [address] [place] [address] * SODIUM (05/10/2024 6:26 AM TABLE OPERATOR) SODIUM 143 136 - 145 mmol/L 05/10/2024 7:23 AM TABLE OPERATOR [facility] Blood BLOOD SPECIMEN / Unknown Venipuncture / Unknown 05/10/2024 6:26 AM TABLE OPERATOR 05/10/2024 6:37 AM TABLE OPERATOR [facility] Final Result Performing Organization Address City/[facility] Co de Phone Number [facility] SENDOUT [place] ZIP [address] [place] [address] * POTASSIUM (05/10/2024 6:26 AM TABLE OPERATOR) POTASSIUM 3.8 3.5 - 5.1 mmol/L 05/10/2024 7:23 AM TABLE OPERATOR [facility] Blood BLOOD SPECIMEN / Unknown Venipuncture / Unknown 05/10/2024 6:26 AM TABLE OPERATOR 05/10/2024 6:37 AM TABLE OPERATOR [facility] CHEMISTRY Final Result Performing Organization Address [facility] Phone Number [facility] SENDOUT [place] ZIP [address] [place] [address] * CREATININE (05/10/2024 6:26 AM TABLE OPERATOR) Pathologist [facility] eGFR >90 >90 mL/min/1.7 3m2 05/10/2024 7:23 AM [facility] Comment:As of 2021, eG FR is calculated by the CKD-EPI creatinine equation without race adjustment. eGFR can be influenced by muscle mass, exercise, and diet. The reported eGFR is an estimation only and is only applicable if the renal function is stable. CREATININE 0.73 0.50 - 0.90 mg/dL 05/10/2024 7:23 AM [facility] Blood BLOOD SPECIMEN / Unknown Venipuncture / Unknown 05/10/2024 6:26 AM TABLE OPERATOR 05/10/2024 6:37 AM TABLE OPERATOR [facility] CHEMISTRY Final Result Performing Organization Address [facility] Co de Phone Number [facility] SENDOUT [place]NAL ZIP [address] [place] [address] * PROTIME-INR (05/10/2024 6:26 AM TABLE OPERATOR) Pathologist [facility] INR 1.1 <1.3 05/10/2024 6:52 AM [facility] PROTIME 12.2 10.6 - 12.4 sec 05/10/2024 6:52 AM [facility] Blood BLOOD SPECIMEN / Unknown Venipuncture / Unknown 05/10/2024 6:26 AM TABLE OPERATOR 05/10/2024 6:[address] [facility] LABORATORY - 05/10/2024 6:52 AM TABLE OPERATOR Therapeutic Range 2.0-3.0 for most anticoagulated [...] UFH. Aron Birch DO HEMATOLOGY Final Result [facility] SENDOUT INTERNAL ZIP [address] [place] [address] * (ABNORMAL) HEPATIC FUNCTION PANEL (05/10/2024 6:26 AM TABLE OPERATOR) Pathologist [facility] ALBUMIN 3.6(L) 4.0 - 4.9 g/dL 05/10/2024 7:23 AM [facility] PROTEIN,TOTAL 6.5 6.0 - 8.0 g/dL 05/10/2024 7:23 AM [facility] BILIRUBIN,TOTAL 0.4 0.0 - 1.2 mg/dL 05/10/2024 7:23 AM [facility] BILIRUBIN,DIRECT 0.2 0.0 - 0.2 mg/dL 05/10/2024 7:23 AM [facility] BILIRUBIN,INDIRE CT 0.2 0.2 - 0.8 mg/dL 05/10/2024 7:23 AM [facility] ALK PHOSPHATASE 82 35 - 104 IU/L 05/10/2024 7:23 AM [facility] ALT (SGPT) 30 10 - 35 IU/L 05/10/2024 7:23 AM TABLE OPERATOR [facility] AST (SGOT) 26 10 - 35 IU/L 05/10/2024 7:23 AM TABLE OPERATOR [facility] Blood BLOOD SPECIMEN / Unknown Venipuncture / Unknown 05/10/2024 6:26 AM TABLE OPERATOR 05/10/2024 6:37 AM TABLE OPERATOR us Aron Birch DO CHEMISTRY Final Result [facility] SENDOUT [place] ZIP [address] [address] [place] [address] * SCAN-ULTRASOUND REPORT (05/09/2024 12:00 AM TABLE OPERATOR) Anatomical Region Laterality Modality Other us [...] CDT [facility] LDL CHOLESTEROL 161(H) <=130 mg/dL 01/21/2024 1:44 PM CDT [facility] VLDL CHOLESTEROL 50(H) <=30 mg/dL 01/21/2024 1:44 PM CDT [facility] PROVIDER ORDERED STATUS RANDOM 01/21/2024 1:44 PM CDT [facility] Blood BLOOD SPECIMEN / Unknown Venipuncture / Unknown 01/20/2024 4:00 PM CDT 01/20/2024 4:00 PM CDT us Geronimo Lamb MD CHEMISTRY Final Result [facility] [address] [place] [address], [place] * ANTI HIV 1/2 (05/01/2022 4:36 PM TABLE OPERATOR) Pathologist [facility] HIV-1/HIV-2 ANTIBODY Non-Reacti ve Non-Reacti ve 05/04/2022 9:59 PM TABLE OPERATOR [facility] Comment:HIV-1 p24 and HIV-1/ HIV-2 Ab not detected. Blood BLOOD SPECIMEN / Unknown Butterfly / Unknown 05/01/2022 4:36 PM TABLE OPERATOR 05/01/2022 4:41 PM TABLE OPERATOR us Geronimo Lamb MD SEND OUTS Final Result Performing Organization Address [facility]/[facility]/ZIP Co de Phone Number [facility] [address] [place] [address], [place] * ANTI HCV (12/05/2021 9:30 AM [...] Geronimo Lamb MD SEND OUTS Final Result [facility] [address] [place] [id number], [place] * SCAN-MAMMOGRAPHY REPORT (02/24/2019 12:00 AM CDT) Anatomical Region Laterality Modality Other us Scanner OTHER Final Result from Last 3 Months or Most Recently Relevant to Health Maintenance Insurance [facility] MEDIC[facility] PART A HB ONLY Advance Directives * Full Code (Latest Code Status on File) Date Activated Date Inactivated Comments 05/09/2024 10:07 PM 05/11/2024 4:49 PM Question Answer Comments Code Status Discussion: Reviewed Preferences Care Teams Human Service Worker Relationship Specialty Start Date End Date Geronimo Lamb MD [address] [place] [address] PCP - General Family Practice 04/23/21 Paolo Limon MD Sleep Medicine 10/28/11 Talon Durham MD Neurology Neurology 11/26/11 Laura Gardner PsyD, LP Psychology 09/14/13 [place] [address] [place] [address] Pulmonology Pulmonary Medicine 01/22/24
--- OUTSIDE RECORDS SUMMARY | 2024-07-11 00:09 | XMS_ITS | CCD ---
Author Organization Unknown Care Team Providers Care Plate Hanger Name Role Phone Mail Manager, [place] Primary Care Provider Unava ilable Unavailable Chronic Care Management Unavaila ble Summary Purpose DataExchange Insurance Providers Payer name Policy type / Coverage type Covered libertarian ID Effective Begin Date Effective End Date [facility] Commercial Insurance [id number] Unkn own Family History Family History data not found Medication Administered No Medication Administered data Reason For Visit No Reason For Visit data
--- OUTSIDE RECORDS SUMMARY | 2024-07-11 00:09 | XMS_ITS | Clinical Summary ---
Author Organization [facility] Address [address] [place] [address] Care Team Providers Care Lab Systems Analyst Name Role Phone Elsewhere, Pcp Primary Care Provider Unavailabl e Source Comments Patient records contain information from all sites at [facility]. For routine questions regarding patient records, call [phone] during business hours, M-F 8:00 AM - 5:00 PM Central Time. Record requests for emergency care only can be directed to [phone] at any time.[facility] Allergies Active Allergy Reactions Criticality Noted [...] Sex Assigned at Female 06/02/2018 2:11 PM EXECUTIVE ADMINISTRATOR Legal Sex Female 5:08 AM EXECUTIVE ADMINISTRATOR Gender Identity Female 06/02/2018 2:11 PM EXECUTIVE ADMINISTRATOR Sexual Orientation Choose not to disclose 2018 2:11 PM EXECUTIVE ADMINISTRATOR Last Filed Vital Signs Vital Sign Reading [...] this topic Medical Devices Implanted Type Area Caramel Cutter Machine Device Identifier Shelf Expiration Date Model / Serial / Lot Ear Implant- 011 Implanted:11/24 (Quantity not on file) Ear Implant Ear [facility] Bernice Vega TORP Plasti-pore [id number] / / [id number] Description:[facility], [place], [place]. Ear implant-Vega TOPR Plasti-pore MRI Safe Procedures Procedure Name Priority Date/Time Associated Diagnosis Comments THYROID-STIMULATING HORMONE-SENSITIVE (S-TSH) Routine 10/27/2018 3:42 PM CDT Hypothyroidism Primary BASIC METABOLIC PANEL, S/P Routine 03/11/2018 1:58 PM CDT Dizziness Diplopia LIPID PANEL, S Routine 06/10/2016 10:40 AM EXECUTIVE ADMINISTRATOR from Last 3 Months or Most Recently Relevant to Health Maintenance Results * (ABNORMAL) S-TSH (Thyroid-Stimulating Hormone - Sensitive) (10/27/2018 3:42 PM CDT) TSH, Sensitive 10.7(H) 0.3 - 4.2 mIU/L 10/27/2018 5:20 PM CDT Comment: Biotin has been identified by the allied health instructor as a potential interfering substance. Higher concentrations of biotin may be found in multivitamins, hair/nail supplements, and workout supplements. If the result does not match clinical observations, repeat testing after patient refrains from the use of supplements for at least 12 hours. Blood (Blood, Venous) 10/27/2018 3:42 PM CDT 10/27/2018 3:43 PM CDT us Deanne Tsang P.A.-C. LAB BLOOD ADD-ON Final Result [facility] [address] [place] [address], [facility] * Basic Metabolic Panel (03/11/2018 1:58 PM CDT) Potassium, S 4.0 3.6 - 5.2 mmol/L 03/11/2018 2:29 PM CDT [facility] Sodium, S 141 135 - 145 mmol/L 03/11/2018 2:29 PM CDT [facility] Chloride, S 101 98 - 107 mmol/L 03/11/2018 2:29 PM CDT [facility] Bicarbonate, S 27 22 - 29 mmol/L 03/11/2018 2:29 PM CDT [facility] Anion Gap 13 7 - 15 03/11/2018 2:29 PM CDT [facility] BUN (Blood Urea Nitrogen), S 12 6 - 21 mg/dL 03/11/2018 2:29 PM CDT [facility] Creatinine 0.62 0.59 - 1.04 mg/dL 03/11/2018 2:29 PM CDT [facility] eGFR-Non Black/ >90 >=60 mL/min/BSA 03/11/2018 2:29 PM CDT [facility] Comment: ----ADDITIONAL INFORMATION---- Estimated GFR calculated using the 2009 CKD_EPI creatinine equation. eGFR-Black/Afri can Greenlandic >90 >=60 mL/min/BSA 03/11/2018 2:29 PM CDT [facility] Comment: ----ADDITIONAL INFORMATION---- Estimated GFR calculated using the 2009 CKD_EPI creatinine equation. Calcium, Total, S 9.4 8.6 - 10.0 mg/dL 03/11/2018 2:29 PM CDT [facility] Glucose, S 95 70 - 140 mg/dL 03/11/2018 2:29 PM CDT [facility] Blood (Blood, Venous) 03/11/2018 1:58 PM CDT 03/11/2018 1:58 PM CDT Deanne Tsang P.A.-C. LAB BLOOD ADD-ON Final Result Performing Organization Address City/State/[facility] Co de Phone Number [facility] [address] * (ABNORMAL) Lipid Panel (06/10/2016 10:40 AM EXECUTIVE ADMINISTRATOR) [facility] Cholesterol, Total 275(H) [...] for FH and FDB is available through [place] [employer]: FH/ADH Genetic Reflex Panel (test ADHP). Acquired (non-genetic) causes of markedly increased LDL cholesterol include cholestatic liver disease due to the presence of LpX. If a genetic form of hypercholesterolemia is suspected, family studies including biochemical testing for lipids (total cholesterol,triglycerides, LDL cholesterol and HDL cholesterol) are recommended. Please contact the laboratory at or the on-line test catalog at [employer] for information about how to order these tests or to speak with a genetic counselor. Further interpretation would require clinical information. Total Cholesterol/HDL Ratio 5 POWERCHART Blood 06/10/2016 10:4 0 AM EXECUTIVE ADMINISTRATOR us Ana Chery M.D. LAB BLOOD ADD-ON Final Re sult POWERCHART from Last 3 Months or Most Recently Relevant to Health Maintenance Insurance [facility] Care Teams Lab Systems Analyst Relationship Specialty Start Date End Date Elsewhere, Pcp PCP - General Internal Medicine 12/04/18
--- OUTSIDE RECORDS SUMMARY | 2024-07-11 00:10 | XMS_ITS | CCD ---
Author Organization Unknown Care Team Providers Care Technologist Infectious Disease Name Role Phone Hatchery Manager, [place] Primary Care Provider Unava ilable Unavailable Chronic Care Management Unavaila ble Summary Purpose DataExchange Insurance Providers Payer name Policy type / Coverage type Covered democrat ID Effective Begin Date Effective End Date [facility] Commercial Insurance [id number] Unkn own Family History Family History data not found Medication Administered No Medication Administered data Reason For Visit No Reason For Visit data
--- OUTSIDE RECORDS SUMMARY | 2024-07-11 00:10 | XMS_ITS | Clinical Summary ---
Author Organization [facility] Address [address] , [address] [place] [address] Phone Care Team Providers Care Parts Sales Advisor Name Role Phone Son Jara MD Conditions or Problems Problem Name Problem Code Onset Date Status Entry Date Provider Comment Standard Description Annotate Involuntary movements 905193377 (SNOMED CT) Active Son Jara MD Abnormal involuntary movement Tremor 70493008 (SNOMED CT) Active Son Jara MD Tremor Medications Medication Instructions Start Date Stop Date Generic Name ND Provider SOLIFENACIN SUCCINATE 10 MG TABS Take 1 Tablet (10 mg) by mouth once daily. solifenacin (VESICARE) 10 mg tablet [id number] Son Jara MD PROCHLORPERAZINE MALEATE 5 MG TABS Take 1 Tablet (5 mg) by mouth every 8 hours if needed for Nausea/Vomitin g. prochlorperazine (COMPAZINE) 5 mg tablet [id number] Son Jara MD OMEPRAZOLE 20 MG CPDR Take 2 Capsules (40 mg) by mouth once daily before a meal. omeprazole (PriLOSEC) 20 mg Delayed-Release capsule [id number] Son Jara MD MONTELUKAST SODIUM 10 MG TABS Take 1 Tablet (10 mg) by mouth at bedtime. montelukast (SINGULAIR) 10 mg tablet [id number] Son Jara MD mirabegron EXTENDED-release (MYRBETRIQ) 50 mg tablet Take 1 Tablet (50 mg) by mouth once daily. mirabegron EXTENDED-release (MYRBETRIQ) 50 mg tablet Son Jara MD MECLIZINE HCL 25 MG TABS Take 0.5 Tablets (12.5 mg) by mouth 3 times daily if needed for Nausea/Vomitin g. meclizine (ANTIVERT) 25 mg tablet [id number] Son Jara MD LEVOTHYROXINE SODIUM 175 MCG TABS Take 1 Tablet (175 mcg) by mouth before breakfast. levothyroxine (SYNTHROID) 175 mcg tablet [id number] Son Jara MD FEXOFENADINE HCL 180 MG TABS Take 1 tablet by mouth once daily with a meal. fexofenadine (ROJAS) 180 mg tablet [id number] Son Jara MD DIPHENHYDRAMINE HCL 25 MG CAPS Take 1 capsule by mouth each time if needed. diphenhydrAMINE (BENADRYL) 25 mg capsule [id number] Son Jara MD VITAMIN D 50 MCG (2000 UT) TABS Take 2,000 units by mouth. cholecalciferol, Vitamin D3, 2,000 unit tablet [id number] Son Jara MD BUPROPION HCL ER (XL) 150 MG [id number] null buPROPion (WELLBUTRIN XL) 150 mg Extended-Release tablet [id number] Son Jara MD IPRATROPIUM-ALBUTE ROL 0.5-2.5 (3) MG/3ML SOLN Inhale 3 mL via a nebulizer 2 times daily if needed for Shortness of Breath 1st choice or Wheezing 1st choice. albuterol-ipratrop ium (DUONEB) (2.5-0.5 mg) in 3 mL NEBULIZA [id number] Son Jara MD ALBUTEROL SULFATE HFA 108 (90 Base) MCG/ACT AERS Inhale 1-2 Puffs by mouth every 4 hours if needed for Shortness of Breath 1st choice. albuterol HFA (ProAir HFA) 90 mcg/actuation inhaler [id number] Son Jara MD ALBUTEROL SULFATE (2.5 MG/3ML) 0.083% NEBU Inhale 3 mL via a nebulizer every 6 hours if needed for Shortness Of Breath or Wheezing. albuterol (PROVENTIL) 0.083 % neb solution [id number] Son Jara MD SYMBICORT 160-4.5 MCG/ACT AERO null Symbicort 160-4. 5 mcg/actuation (160-4.5 mcg each actuation) [id number] Son Jara MD PAROXETINE HCL 40 MG TABS null PARoxetine (PAXI L) 40 mg tablet [id number] Son Jara MD Medications Administered No information [...] 2 ORDERS EEG Sleep Deprived (41min) 2 [id number] EEG EXTENDED 41-60mins (END) ORDERS Obtain imaging report 02/08 ORDERS Patient Instructions [id number] Documentation of current medicatio ns Vital Signs No information available. Immunizations No information available. Advance Directives No information available.
[2024-07-11] MEDS: IPRAT-ALBUT 0.5-2.5 MG/3 ML NEB 1 NEB IH (00:13)
[2024-07-11] MEDS: METHYLPREDNISOLONE SOD SUCC 62.5 MG/ML (125) 93.75 MG IVP (00:17)
[2024-07-11 00:34] LABS: Basophils Percent Auto 0.3 % (0.0-3.0); Eosinophils Percent Auto 2.4 % (0.0-7.0); Hematocrit 38.8 % (33.0-51.0); Hemoglobin* 11.8 gm/dL (12.0-16.0); Immature Granulocytes Pct Auto 2.5 %; Lymphocytes Percent Auto 21.2 % (20-44); Mean Corpuscular HGB Conc 30 gm/dL (32-36); Mean Corpuscular Hemoglobin 29 pg (26-34); Mean Corpuscular Volume 96 fL (80-100); Neutrophils Percent Auto 67.6 % (42.0-72.0); Platelet Count* 202 K/uL (140-440); RDW Coefficient of Variation % 13.8 % (11.5-15.5); Red Blood Count 4.05 m/uL (4.00-5.20); White Blood Count* 14.74 K/uL (4.50-11.00)
[2024-07-11 00:42] LABS: Chloride* 94 mmol/L (96-114); Potassium* 3.9 mmol/L (3.6-5.1); Sodium* 139 mmol/L (135-149)
[2024-07-11 00:45] LABS: Anion Gap 7 mEq/L (7-15); Blood Urea Nitrogen* 24 mg/dL (5-24); Carbon Dioxide* 38 mmol/L (20-32); Creatinine* 0.7 mg/dL (0.5-1.5); Est. Creatinine Clearance* 179.42; Estimated Glomerular Filt Rate 107 ml/min; Glucose* 153 mg/dL (60-115)
[2024-07-11 00:46] LABS: Calcium* 8.5 mg/dL (8.4-10.6)
--- NOTE | 2024-07-11 00:46 | PC.NURSE ---
Pt resting quietly with father at BS. Mf infusing without diff. Continuous sat monitor on 92 % on NS.
[2024-07-11 00:53] LABS: Slide Review Reflex No
[2024-07-11 00:55] LABS: PCR FLU A Negative PCR FLU A (Negative); PCR FLU B Negative PCR FLU B (Negative); PCR RSV Negative PCR RSV (Negative); SARS PCR* Negative SARS-CoV-2 (Negative)
[2024-07-11 00:59] LABS: Troponin I* < 0.01 ng/mL (0.01-0.04)
[2024-07-11 01:04] LABS: C Reactive Protein* 1.1 mg/dL (0.5-1.0)
[2024-07-11] MEDS: diphenhydrAMINE 50 MG/ML inj 12.5 MG IVP (01:49)
[2024-07-11 02:45] VITALS: BP 141/104; PULSE 95; RESP 20; O2SAT 92
[2024-07-11 03:49] LABS: NT Pro B Type NatriureticPept* 344 pg/mL
[2024-07-11] MEDS: FUROSEMIDE 10 MG/ML inj 20 MG IVP (04:02)
[2024-07-11] MEDS: ALBUTEROL SULFATE 2.5 MG/3 ML VIAL.NEB NEB (04:02)
[2024-07-11 04:05] VITALS: BP 152/112; PULSE 98; RESP 18; O2SAT 99
[2024-07-11 04:54] VITALS: BP 132/78; PULSE 91; RESP 18; TEMP 36.7; O2SAT 95
== END 2024-07-11 05:05 | disposition home or self-care (01) ==
PROVIDERS: Emergency Provider Family Medicine; PCP Family Medicine
DX: J44.1 Chronic obstructive pulmonary disease with (acute) exacerbation (principal); R09.89 Other specified symptoms and signs involving the circulatory and respiratory systems; R09.02 Hypoxemia
CPT/HCPCS: 36415; 71046; 80048; 83735; 83880; 84484; 85025; 86140; 87631; 94640; 94761; 96365; 96375; 99284; J1200; J1940; J2919; J3475

== ENCOUNTER 2024-07-11 05:06 | Outpatient (CLI) | payer OTHER, SELFPAY | END 2024-07-11 05:07 | disposition home or self-care (01) | LOC: AMB 07-12 06:19 | PROVIDERS: PCP Family Medicine; Visit Provider Family Medicine | DX: R53.1 Weakness (principal); Z99.81 Dependence on supplemental oxygen | CPT/HCPCS: A0425; A0428 ==

== ENCOUNTER 2024-07-23 04:44 | Outpatient (CLI) | payer OTHER, SELFPAY | END 2024-07-23 04:45 | disposition home or self-care (01) | PROVIDERS: PCP Family Medicine; Visit Provider Internal Medicine | DX: R06.09 Other forms of dyspnea (principal) | CPT/HCPCS: A0425; A0427 ==

== ENCOUNTER 2024-07-23 05:24 | Inpatient (IN) | payer OTHER, SELFPAY ==
[2024-07-23] VITALS (24 sets, daily range): BP systolic 111–136; BP diastolic 59–76; PULSE 96–106; RESP 14–27; TEMP 36.6–37.3; O2SAT 89–100; BMI 51.9; BMI 53.1
[2024-07-23] MEDS: METHYLPREDNISOLONE SOD SUCC 62.5 MG/ML (125) 60 MG IVP (05:27)
--- NOTE | 2024-07-23 05:28 | ED_ITS ---
HPI - SOB/Dyspnea General Time Seen by Provider: 05:28 Date Seen: 07/23/24 Chief Complaint: Shortness of Breath/Dyspnea Stated Complaint: respiratory distress Time Seen by Provider: 07/23/24 05:28 Source: patient, EMS, RN notes reviewed and old records reviewed Mode of arrival: EMS Limitations: other History of Present Illness HPI Narrative: Patient is a 49-year-old female with history of hydrocephalus, pseudoseizures, anxiety depression, hypothyroidism, asthma who is a nonsmoker who comes to the emergency room via EMS for evaluation regarding increasing shortness of breath. Patient tells me that she has been ill since the beginning of the year having had community-acquired pneumonia on May 24. She notes that over the last week she has had a runny nose and that this morning it became very hard to breathe. staff did provide a nebulizer which did not seem to help. 911 was called. Upon arrival EMS notes O2 sats of 89%. Patient is on chronic nasal cannula O2 at 2 L. EMS gave a DuoNeb and this seems to have helped her somewhat. [facility] staff where patient resides notes that she became symptomatic with a cough yesterday. This was conveyed to EMS. Patient tells me that she has been sick since the new year. No chest pain abdominal pain vomiting. Does note a very mild sore throat and states this is because her room is so dry. Also notes that she has vocal cord dysfunction and that is part of what we are hearing. No fever vomiting or diarrhea. Patient does agree that there have been numerous illnesses at [facility]. Patient reports that her O2 sats are normally 92-94% on 2 L nasal cannula oxygen. Related Data Home Medications ?Medication ?Instructions ?Recorded ?Confirmed albuterol sulfate 90 mcg/actuation 1 - 2 puff inhalation Q4H PRN 11/30/21 07/23/24 aerosol inhaler mirabegron 50 mg tablet,extended 50 mg PO DAILY 11/30/21 07/23/24 release 24 hr (Myrbetriq) montelukast 10 mg tablet 10 mg PO HS 11/30/21 07/23/24 omeprazole 20 mg capsule,delayed 40 mg PO DAILY 02/26/22 07/23/24 release levetiracetam 750 mg tablet 750 mg PO BID 11/25/22 07/23/24 (Keppra) cholecalciferol (vitamin D3) 50 50 mcg PO DAILY 01/30/23 07/23/24 mcg (2,000 unit) capsule paroxetine HCl 40 mg tablet 40 mg PO DAILY 01/30/23 07/23/24 levothyroxine 100 mcg tablet 100 mcg PO DAILY 10/16/23 07/23/24 potassium chloride 10 mEq 20 meq PO DAILY 10/16/23 07/23/24 tablet,extended release aluminum-mag hydroxide-simethicone 5 - 10 ml PO 5XD PRN 03/20/24 07/23/24 200 mg-200 mg-20 mg/5 mL oral susp (Maalox Advanced) dextromethorphan HBr 10 mg/5 mL 5 - 10 mg PO Q4-6H PRN 03/20/24 07/23/24 oral syrup diphenhydramine HCl 25 mg capsule 25 mg PO DAILY PRN 03/20/24 07/23/24 (Banophen) ibuprofen 200 mg capsule 200 - 400 mg PO Q4-6H PRN 03/20/24 07/23/24 loperamide 2 mg tablet 1 mg PO Q6H PRN 03/20/24 07/23/24 (Anti-Diarrheal (loperamide)) magnesium hydroxide 400 mg/5 mL 15 - 30 ml PO DAILY PRN 03/20/24 07/23/24 oral suspension (Milk of [employer]) terbinafine HCl 1 % topical cream 1 applic topical BID 03/20/24 07/23/24 alprazolam 0.5 mg tablet 0.5 mg PO DAILY 07/23/24 07/23/24 famotidine 20 mg tablet 20 mg PO BID 07/23/24 07/23/24 fluticasone propionate 50 2 spray intranasal DAILY 07/23/24 07/23/24 mcg/actuation nasal spray,suspension furosemide 20 mg tablet 20 mg PO BID@08,12 07/23/24 07/23/24 ipratropium 0.5 mg-albuterol 3 mg 1 ml inhalation TID 07/23/24 07/23/24 (2.5 mg base)/3 mL nebulization soln mirtazapine 15 mg tablet 15 mg PO HS 07/23/24 07/23/24 Previous Rx's ?Medication ?Instructions ?Recorded budesonide-formoterol HFA 160 2 puff inhalation BID #1 g 02/02/23 mcg-4.5 mcg/actuation aerosol inhaler (Symbicort) Allergies Allergy/AdvReac Type Severity Reaction Status Date / Time azithromycin Allergy Intermediate Bloody Verified 07/10/24 23:20 Stools latex Allergy Intermediate Rash Verified 07/10/24 23:20 oxycodone Allergy Intermediate Agitated Verified 07/10/24 23:20 scopolamine Allergy Intermediate Tremors Verified 07/10/24 23:20 basil Allergy Rash Verified 07/10/24 23:20 Review of Systems Status of ROS: Reports: 10 or more systems reviewed and unremarkable except as noted in History and below Const: Reports: fatigue; Denies: fever or chills Eyes: Denies: change in vision ENMT: Reports: nasal discharge and nasal congestion; Denies: throat pain, neck pain, throat swelling, difficulty swallowing or hoarseness Cardio: Reports: shortness of breath with exertion; Denies: chest pain or swelling of feet/ankles Resp: Reports: shortness of breath, cough and wheezing GI: Denies: abdominal pain, vomiting or difficulty swallowing : Denies: painful urination Musculo: Denies: neck pain Neuro: Denies: headache Psych: Reports: anxiety Endo: Reports: fatigue Allergy/Immuno: Reports: wheezing; Denies: throat swelling [facility] Medical History (Updated 07/26/24 @ 00:01 by Background Daemon) Hypothyroidism ?E03.9 - Hypothyroidism, unspecified (ICD-10) Acute and chronic respiratory failure with hypoxia ?J96.21 - Acute and chronic respiratory failure with hypoxia (ICD-10) 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 - Unspecified convulsions (ICD-10) RODRICK (obstructive sleep apnea) ?G47.33 - Obstructive sleep apnea (adult) (pediatric) (ICD-10) ADHD ?F90.9 - Attention-deficit hyperactivity disorder, unspecified type (ICD-10) Hyperthyroidism ?E05.90 - Thyrotoxicosis, unspecified without thyrotoxic crisis or storm (ICD-10) Hydrocephalus ?G91.9 - Hydrocephalus, unspecified (ICD-10) Hyperlipidemia ?E78.5 - Hyperlipidemia, unspecified (ICD-10) Anxiety and depression ?F41.9 - Anxiety disorder, unspecified (ICD-10) ?F32.A - Depression, unspecified (ICD-10) Asthma ?J45.909 - Unspecified asthma, uncomplicated (ICD-10) Surgical History History of ear surgery ?Z98.890 - Other specified postprocedural states (ICD-10) History of strabismus surgery ?Z98.890 - Other specified postprocedural states (ICD-10) Social History Narrative: on disability since 2009; lives alone with her cat. nonsmoker, no drugs, no significant tobacco history adopted, her two adopted aunts are her family contacts. What is your current living situation?: I presently have a place to live Problems where you live: no known problems Problems where you live details: none In the past 12 months, utilities in danger of being shut off: no In past 12 months, lack of transportation kept you from medical appts, meetings, work, or getting things needed for daily living: no In the past 12 mos, have been you worried that your food would run out before you had money to buy more?: never true In the past 12 mos, the food you bought just didn't last and you didn't have money to buy more?: never true Highest level of school completed/degree received: Associate degree: academic program Smoking Status: Never smoker Do you use any of these nicotine containing products: None Second hand tobacco smoke exposure: Yes How often do you have a drink containing alcohol: never How often do you have six or more drinks on one occasion: Never AUDIT-C Alcohol total score: 0 Non-prescribed substance use: denies use Caffeine: Yes How often does anyone, including family, friends and others, physically hurt you : never How often does anyone, including family, friends and others, insult or talk down to you: never How often does anyone, including family, friends and others, threaten you with harm: never How often does anyone, including family, friends and others, scream or curse at you: never service: No Exam Narrative: Exam Narrative: Patient is alert and oriented. Increased work of breathing noted with expiratory wheezing. However, patient can talk in full sentences. Eyes are clear. Oral cavity with moist mucous membranes. Neck is supple. Heart with a regular rate and rhythm. Lungs show inspiratory crackles especially on the left. Expiratory wheezing noted throughout. Abdomen is obese soft nontender. Lower extremities without significant edema. Const: Vital Signs, click to edit/add: Vital Signs - 24 hr 07/23/24 05:21 07/23/24 05:34 07/23/24 05:36 Temperature 99 F Pulse Rate 101 H Pulse Rate [Pulse Oximeter] 101 H Respiratory Rate 16 Blood Pressure Blood Pressure [Ri ght Upper Arm] 111/67 Pulse Oximetry 90 93 90 Oxygen Delivery Me thod Nasal Cannula Oxygen Flow Rate 2 Fraction of Inspir ed Oxygen 07/23/24 05:45 07/23/24 06:00 07/23/24 06:15 Temperature Pulse Rate 98 97 96 Pulse Rate [Pulse Oximeter] Respiratory Rate 21 27 H 22 Blood Pressure Blood Pressure [Ri ght Upper Arm] Pulse Oximetry 91 91 89 Oxygen Delivery Me thod Oxygen Flow Rate Fraction of Inspir ed Oxygen 07/23/24 06:30 07/23/24 06:45 07/23/24 06:56 Temperature Pulse Rate 98 100 Pulse Rate [Pulse Oximeter] Respiratory Rate 14 22 Blood Pressure Blood Pressure [Ri ght Upper Arm] Pulse Oximetry 100 90 Oxygen Delivery Me thod High Flow Nasal Ca nnula Oxygen Flow Rate 30 Fraction of Inspir ed Oxygen 40 40 07/23/24 07:00 07/23/24 07:14 07/23/24 07:15 Temperature Pulse Rate 103 H 103 H 103 H Pulse Rate [Pulse Oximeter] Respiratory Rate 21 22 23 Blood Pressure 123/66 Blood Pressure [Ri ght Upper Arm] Pulse Oximetry 90 90 90 Oxygen Delivery Me thod Oxygen Flow Rate Fraction of Inspir ed Oxygen 07/23/24 07:30 07/23/24 07:31 07/23/24 07:45 Temperature Pulse Rate 99 102 H 104 H Pulse Rate [Pulse Oximeter] Respiratory Rate 20 26 H 15 Blood Pressure 111/76 Blood Pressure [Ri ght Upper Arm] Pulse Oximetry 91 91 94 Oxygen Delivery Me thod Oxygen Flow Rate Fraction of Inspir ed Oxygen 07/23/24 08:00 Temperature Pulse Rate Pulse Rate [Pulse Oximeter] Respiratory Rate 39 H Blood Pressure Blood Pressure [Ri ght Upper Arm] Pulse Oximetry Oxygen Delivery Me thod Oxygen Flow Rate Fraction of Inspir ed Oxygen Documenting provider has reviewed patient's vital signs: yes Course Course ED Course: Differential diagnosis includes but is not limited to COVID/influenza/ RSV, pneumonia, asthma exacerbation, bronchitis, pulmonary edema. IV is being placed. Will obtain chest x-ray place patient on tray drier and oximetry. Will switch back to nasal cannula oxygen to see how O2 sats respond. Will give Solu-Medrol 60 mg IV at this time. Awaiting results of CBC, comprehensive panel, troponin, proBNP, triple viral swab. Reevaluation(s) Reevaluation #1: patient is informed that she has RSV. No obvious infiltrates on x-ray. Will plan on admitting patient for repeat nebulizers and care here at the hospital as I do not think that she would do well at her residential with the need for recurrent inhalers, steroids and attention. Awaiting other laboratory values before transfer to the floor. Reevaluation #2: VBG shows elevated CO2 to 71. We placed patient on high-flow nasal cannula in the hopes that we decrease the CO2. Initially starting at 40% O2 with plans to decrease that to keep O2 sats 88-94%. RT is not available at this time but would be beneficial once they arrive for the day. Nursing staff notes that patient seems very anxious and I have ordered Ativan 0.25 mg IV. Vital Signs Vital signs: Initial Vital Signs Respiratory Effort Short of Breath 07/23/24 05:20 Respiratory Depth Shallow 07/23/24 05:20 Respiratory Pattern Irregular 07/23/24 05:20 Vital Signs Temperature 99 F 07/23/24 05:21 Pulse Rate 101 H 07/23/24 05:21 Respiratory Rate 16 07/23/24 05:21 Blood Pressure 111/67 07/23/24 05:21 Pulse Oximetry 90 07/23/24 05:21 Oxygen Delivery Method Nasal Cannula 07/23/24 05:21 Oxygen Flow Rate 2 07/23/24 05:21 Temperature 96.7 F L 07/26/24 00:00 Pulse Rate 108 H 07/26/24 00:00 Respiratory Rate 26 H 07/26/24 00:00 Blood Pressure 119/73 07/26/24 00:00 Pulse Oximetry 91 07/26/24 00:00 Oxygen Delivery Method BiPAP 07/26/24 00:00 Oxygen Flow Rate 2 07/25/24 12:00 Fraction of Inspired Oxygen 30 07/26/24 00:00 Medications Administered Medications: Generic Name Dose Route Start Last Admin Trade Name Freq PRN Reason Stop Dose Admin Albuterol 2.5 mg 07/23/24 13:09 07/25/24 18:09 Albuterol Sulfate 2.5 Mg/3 Ml Vial.Neb NEB 2.5 mg Q2H PRN Administration Albuterol 2.5 mg 07/24/24 12:00 07/26/24 00:37 Albuterol Sulfate 2.5 Mg/3 Ml Vial.Neb NEB 2.5 mg Q4H GORDY Administration Azithromycin 500 mg 07/24/24 13:15 07/25/24 12:29 Azithromycin 250 Mg Tablet PO 500 mg Q24H GORDY Administration Benzonatate 200 mg 07/23/24 21:00 07/25/24 20:34 Benzonatate 100 Mg Capsule PO 200 mg TID GORDY Administration Enoxaparin Sodium 40 mg 07/23/24 21:00 07/25/24 20:37 Enoxaparin 40 Mg/0.4 Ml Inj SUBCUT 40 mg HS GORDY Administration Famotidine 20 mg 07/23/24 21:00 07/25/24 20:34 Famotidine 20 Mg Tablet PO 20 mg BID GORDY Administration Fluticasone Propionate 2 spray 07/24/24 09:00 07/25/24 09:03 Fluticasone Propionate Nasal NOSTRIL-B 2 spray DAILY GORDY Administration Furosemide 40 mg 07/24/24 08:35 07/25/24 16:39 Furosemide 10 Mg/Ml Inj IVP 40 mg BID@08,16 GORDY Administration Guaifenesin/Dextromethorphan 10 ml 07/23/24 09:18 07/25/24 18:12 Guaif/Dm 200-20 Mg/20 Ml 118 Ml Liquid PO 10 ml Q6H PRN Administration Ceftriaxone Sodium 1 gm/ 100 mls @ 200 mls/hr 07/24/24 13:15 07/25/24 13:27 Sodium Chloride IVPB Infused Q24H GORDY Infusion Ibuprofen 400 mg 07/23/24 09:18 07/25/24 12:28 Ibuprofen 200 Mg Tablet PO 400 mg Q6H PRN Administration Insulin Aspart 0 unit 07/24/24 17:30 07/25/24 20:44 Insulin Aspart 100 Unit/Ml SUBCUT 1 unit ACHS GORDY Administration Protocol Levetiracetam 750 mg 07/23/24 10:30 07/25/24 20:35 Levetiracetam 500 Mg Tablet PO 750 mg BID GORDY Administration Mirtazapine 15 mg 07/23/24 21:00 07/25/24 20:36 Mirtazapine 15 Mg Tablet PO 15 mg HS GORDY Administration Montelukast Sodium 10 mg 07/23/24 21:00 07/25/24 20:36 Montelukast 10 Mg Tablet PO 10 mg HS GORDY Administration Mirabegron [ 0 mg 07/23/24 09:18 07/25/24 09:03 Myrbetriq] 50 Mg PO Not Given Tablet Extended DAILY GORDY Release 24 Hr Omeprazole 40 mg 07/23/24 09:18 07/25/24 09:02 Omeprazole [address] PO 40 mg DAILY GORDY Administration Ondansetron HCl 4 mg 07/23/24 09:02 07/23/24 13:42 Ondansetron Odt 4 Mg Tab PO 4 mg Q6H PRN Administration Paroxetine HCl 40 mg 07/23/24 10:30 07/25/24 09:02 Paroxetine 20 Mg Tablet PO 40 mg DAILY GORDY Administration Potassium Chloride 20 meq 07/24/24 09:00 07/25/24 09:01 Potassium Chloride 10 Meq Capsule Er PO 20 meq DAILY GORDY Administration Prednisone 40 mg 07/24/24 08:00 07/25/24 09:01 Prednisone 20 Mg Tablet PO 40 mg DAILYWM GORDY Administration Sodium Chloride 5 ml 07/23/24 09:02 07/25/24 12:48 Sodium Chloride 0.9 % (Flush) 10 Ml Syringe IVF 5 ml .FLUSH PRN Administration Sodium Chloride 5 ml 07/23/24 21:00 07/25/24 20:37 Sodium Chloride 0.9 % (Flush) 10 Ml Syringe IVF 5 ml BID GORDY Administration Sodium Chloride 250 ml 07/24/24 16:45 07/25/24 14:27 0.9 % Sodium Chloride 250 Ml IV Not Given Q24H GORDY Discontinued Medications Generic Name Dose Route Start Last Admin Trade Name Freq PRN Reason Stop Dose Admin Albuterol 2.5 mg 07/23/24 06:21 07/23/24 06:24 Albuterol Sulfate 2.5 Mg/3 Ml Vial.Neb NEB 07/23/24 06:22 2.5 mg ONCE ONE Administration Albuterol 2.5 mg 07/23/24 09:05 07/23/24 16:46 Albuterol Sulfate 2.5 Mg/3 Ml Vial.Neb NEB 2.5 mg Q4H GORDY Administration Albuterol 2.5 mg 07/23/24 23:00 07/24/24 05:04 Albuterol Sulfate 2.5 Mg/3 Ml Vial.Neb NEB 2.5 mg Q6H GORDY Administration Albuterol/Ipratropium 1 neb 07/23/24 14:00 07/23/24 13:45 Iprat-Albut 0.5-2.5 Mg/3 Ml Neb IH 1 neb TID GORDY Administration Albuterol/Ipratropium 1 neb 07/23/24 20:00 07/24/24 08:20 Iprat-Albut 0.5-2.5 Mg/3 Ml Neb IH 1 neb Q6H GORDY Administration Furosemide 40 mg 07/23/24 09:18 07/23/24 10:11 Furosemide 40 Mg Tablet PO 40 mg DAILY GORDY Administration Furosemide 20 mg 07/24/24 08:00 07/24/24 16:32 Furosemide 20 Mg Tablet PO Not Given BID@08,12 GORDY Sodium Chloride 500 mls @ 500 mls/hr 07/23/24 09:09 07/25/24 07:38 0.9 % Sodium Chloride 500 Ml IV 07/23/24 10:08 Infused .Q1H ONE Infusion Sodium Chloride 1,000 mls @ 125 mls/hr 07/23/24 09:09 07/25/24 07:38 0.9 % Sodium Chloride 1000 Ml IV 07/23/24 17:08 Infused .Q8H GORDY Infusion Levothyroxine Sodium 100 mcg 07/23/24 09:18 07/24/24 09:14 Levothyroxine 100 Mcg Tablet PO 100 mcg DAILY GORDY Administration Levothyroxine Sodium 100 mcg 07/25/24 07:00 07/25/24 06:06 Levothyroxine 100 Mcg Tablet PO 100 mcg DAILY GORDY Administration Methylprednisolone Sodium Succinate 60 mg 07/23/24 05:20 07/23/24 05:27 Methylprednisolone Sod Succ 62.5 Mg/Ml (125) IVP 07/23/24 05:21 60 mg ONCE ONE Administration Methylprednisolone Sodium Succinate 40 mg 07/23/24 10:00 07/24/24 01:00 Methylprednisolone Sod Succ 40 Mg/Ml IVP 07/24/24 02:01 40 mg Q8H GORDY Administration Budesonide- 0 puff 07/23/24 09:18 07/23/24 12:45 Formoterol [ IH Not Given Symbicort] 160-4.5 BID GORDY Mcg/Actuation Hfa Tiotropium [place] [ 2 puff 07/23/24 09:18 07/23/24 12:46 Spiriva Respimat] 2. IH Not Given 5 Mcg/Actuation Mist DAILY GORDY Perflutren Lipid Microsphere 2 ml 07/24/24 14:47 07/24/24 14:54 Perflutren Lipid Microspheres 2 Ml Vial IVP 07/24/24 14:48 2 ml ONCE ONE Administration MDM - SOB/Dyspnea MDM Narrative Medical decision making narrative: 1. RSV- patient has tested positive for RSV and negative for COVID and influenza. patient noted to have a previous history of asthma, O2 dependent at 2 L nasal cannula with usual O2 sats 92-94%. After arrival patient's oxygen did drop to 84 % while talking. She has been resting comfortably and is now 89- 91%.O2 sats improved with nebulizers from EMS. Patient received Solu-Medrol 60 mg IV. Chest x-ray without evidence of infiltrates. patient clearly congested here. I do not see need for antibiotics at this time . Will repeat albuterol neb prior to transfer to the floor. Addendum: VBG notes a pH of 7.38 and CO2 elevated at 71. Bicarb is 42. ProBNP within normal limits and troponin is still pending. EKG is reassuring with no acute findings. Patient is not currently complaining of any chest pain. 2. History of hydrocephalus with developmental learning delay -patient currently a resident of [facility]. She does not smoke. She appears to have insight into her illnesses. 3. Disposition -admit to [facility] under the care of hospitalist Dr. Hallman. Other laboratory values include normal white count of 7.65. Potassium 3.3. Normal creatinine. LFTs within normal limits. EKG reassuring. Medical Records Attestation: I reviewed the patient's medical records. Lab Data Attestation: I reviewed the patient's lab results. Labs: Lab Results 07/23/24 07/23/24 07/23/24 Range/Units 05:20 05:34 05:54 WBC 7.65 (4.50-11.00) K/uL RBC 3.94 L (4.00-5.20) m/uL Hgb 11.4 L (12.0-16.0) gm/dL Hct 37.2 (33.0-51.0) % MCV 94 (80-100) fL MCH 29 (26-34) pg MCHC 31 L (32-36) gm/dL RDW Coeff of Tomy 14.4 (11.5-15.5) % Plt Count 124 L (140-440) K/uL Neut % (Auto) 78.5 H (42.0-72.0) % Lymph % (Auto) 9.9 L (20-44) % Kaufman % (Auto) 8.1 (0.0-11.0) % Eos % (Auto) 1.3 (0.0-7.0) % Baso % (Auto) 0.4 (0.0-3.0) % Neut # (Auto) 6.00 (1.7-7.0) K/uL Lymph # (Auto) 0.80 L (0.90-2.90) K/uL Kaufman # (Auto) 0.60 (0.00-0.90) K/UL Eos # (Auto) 0.10 (0.00-0.50) K/uL Baso # (Auto) 0.03 (0.00-0.30) K/uL Abs Immat Gran (auto) 0.14 (0.00-0.30) K/uL Imm/Tot Granulo (auto) 1.8 % VBG pH 7.382 (7.32-7.43) VBG pCO2 71 H* (40-50) mmHG VBG pO2 46.3 (25-47) mmHG VBG HCO3 42 H (21-28) mmol/L Sodium 135 (135-149) mmol/L Potassium 3.3 L (3.6-5.1) mmol/L Chloride 89 L (96-114) mmol/L Carbon Dioxide 37 H (20-32) mmol/L Anion Gap 9 (7-15) mEq/L BUN 14 (5-24) mg/dL Creatinine 0.7 (0.5-1.5) mg/dL Estimated Creat Clear 170.74 Estimated GFR 107 ml/min Glucose 128 H (60-115) mg/dL Calcium 8.7 (8.4-10.6) mg/dL Total Bilirubin 0.4 (0.1-1.5) mg/dL AST 20 (12-35) U/L ALT 33 (4-35) U/L Alkaline Phosphatase 109 (40-150) U/L Troponin I < 0.01 L (0.01-0.04) ng/mL NT-Pro-B Natriuret Pep 296 pg/mL Total Protein 6.7 (6.0-8.3) g/dL Albumin 3.6 (3.3-5.0) g/dL SARS-CoV-2 (PCR) Negative SARS-CoV-2 (Negative) Influenza Type A (PCR) Negative PCR FLU A (Negative) Influenza Type B (PCR) Negative PCR FLU B (Negative) RSV (PCR) POSITIVE PCR RSV A (Negative) Lab Acknowledgement Test Added Imaging Data Chest x-ray: Attestation: I have reviewed the pertinent imaging results. My impression: Compared with previous I do not note significant change. Radiologist's impression: Cardiovascular and mediastinum: Upper normal heart size with slight prominence of the pulmonary artery suggesting underlying pulmonary arterial hypertension. Lungs and pleural space: No pleural effusion or pneumothorax. Pulmonary cephalization with reticular bilateral opacities, possibly interstitial edema and similar to slightly progressive compared to the study of 12 days prior. Likely granuloma at the right lung redemonstrated. Bones and soft tissues: No acute findings. ECG Data Attestation: I personally reviewed and interpreted this ECG as follows: ECG interpretation date: 07/23/24 Interpretation: EKG by my read shows sinus rhythm at a rate of 95. Some flattening of the T- waves noted in the anterior and inferior leads. Compared to previous this is not markedly changed. QT slightly prolonged at 472 milliseconds corrected. ME interval within normal limits Discharge Plan Discharge Clinical Impression: RSV infection, Hypercarbia Patient Disposition: Admitted As Observation Condition: Improved
[2024-07-23 05:33] LABS: Basophils Absolute Auto 0.03 K/uL (0.00-0.30); Basophils Percent Auto 0.4 % (0.0-3.0); Eosinophils Percent Auto 1.3 % (0.0-7.0); Hematocrit 37.2 % (33.0-51.0); Hemoglobin* 11.4 gm/dL (12.0-16.0); Immature Granulocytes Abs Auto 0.14 K/uL (0.00-0.30); Immature Granulocytes Pct Auto 1.8 %; Lymphocytes Percent Auto 9.9 % (20-44); Mean Corpuscular HGB Conc 31 gm/dL (32-36); Mean Corpuscular Hemoglobin 29 pg (26-34); Mean Corpuscular Volume 94 fL (80-100); Monocytes Percent Auto 8.1 % (0.0-11.0); Neutrophils Percent Auto 78.5 % (42.0-72.0); Platelet Count* 124 K/uL (140-440); RDW Coefficient of Variation % 14.4 % (11.5-15.5); Red Blood Count 3.94 m/uL (4.00-5.20); White Blood Count* 7.65 K/uL (4.50-11.00)
[2024-07-23 05:37] LABS: Slide Review Reflex No
[2024-07-23 06:05] LABS: PCR FLU A Negative PCR FLU A (Negative); PCR FLU B Negative PCR FLU B (Negative); PCR RSV POSITIVE PCR RSV (Negative); SARS PCR* Negative SARS-CoV-2 (Negative)
[2024-07-23 06:17] LABS: HCO3 VBG 42 mmol/L (21-28); PO2 VBG 46.3 mmHG (25-47); pH VBG 7.382 (7.32-7.43)
[2024-07-23 06:23] LABS: PCO2 VBG 71 mmHG (40-50)
[2024-07-23] MEDS: ALBUTEROL SULFATE 2.5 MG/3 ML VIAL.NEB NEB ×4 (06:24→16:46)
[2024-07-23 06:32] LABS: Albumin* 3.6 g/dL (3.3-5.0); Chloride* 89 mmol/L (96-114); Sodium* 135 mmol/L (135-149)
[2024-07-23 06:33] LABS: Potassium* 3.3 mmol/L (3.6-5.1)
[2024-07-23 06:35] LABS: Alkaline Phosphatase* 109 U/L (40-150); Aspartate Amino Transferase* 20 U/L (12-35); Bilirubin Total* 0.4 mg/dL (0.1-1.5); Blood Urea Nitrogen* 14 mg/dL (5-24); Creatinine* 0.7 mg/dL (0.5-1.5); Est. Creatinine Clearance* 170.74; Estimated Glomerular Filt Rate 107 ml/min; Glucose* 128 mg/dL (60-115); Total Protein* 6.7 g/dL (6.0-8.3)
[2024-07-23 06:36] LABS: Alanine Aminotransferase* 33 U/L (4-35); Calcium* 8.7 mg/dL (8.4-10.6)
[2024-07-23 06:42] LABS: Anion Gap 9 mEq/L (7-15); Carbon Dioxide* 37 mmol/L (20-32)
[2024-07-23 06:47] LABS: NT Pro B Type NatriureticPept* 296 pg/mL
[2024-07-23] MEDS: OMEPRAZOLE 20 MG CAPSULE DR 40 MG PO (10:09)
[2024-07-23] MEDS: METHYLPREDNISOLONE SOD SUCC 40 MG/ML IVP ×2 (10:09→19:08)
[2024-07-23 10:10] LABS: HCO3 VBG 41 mmol/L (21-28); PO2 VBG 52.7 mmHG (25-47); pH VBG 7.385 (7.32-7.43)
[2024-07-23] MEDS: LEVOTHYROXINE 100 MCG TABLET PO (10:10)
[2024-07-23] MEDS: FUROSEMIDE 40 MG TABLET PO (10:11)
[2024-07-23] MEDS: 0.9 % SODIUM CHLORIDE 500 ML 500 ML IV (10:11)
[2024-07-23 10:14] LABS: PCO2 VBG 68 mmHG (40-50)
[2024-07-23] MEDS: levETIRAcetam 500 MG TABLET 750 MG PO ×2 (10:16→21:21)
[2024-07-23] MEDS: PARoxetine 20 MG TABLET 40 MG PO (10:17)
[2024-07-23 10:38] LABS: Troponin I* < 0.01 ng/mL (0.01-0.04)
[2024-07-23] MEDS: 0.9 % SODIUM CHLORIDE 1000 ml 1,000 ML 125 ML IV (12:44)
--- NOTE | 2024-07-23 13:11 | PM.IMHP1 ---
Hospitalist- H&P: HPI History of Present Illness Date Seen: 07/23/24 Chief complaint: respiratory distress Narrative: Paloma Garcia is a 49 year old woman who presents to our emergency department this morning via EMS for assessment and management of respiratory distress. She indicates that she has not been feeling well since the beginning of the 2024. She states she had pneumonia at that time and has never really recovered. Even so she has been getting along and doing well with her usual activities since then. Does ordinarily utilizes oxygen continuously at 2 liters/minute via nasal cannula to maintain her resting oxygen saturations greater than 88%. Takes nebulizer therapy on a scheduled basis and as needed. Of note she now lives at [facility]. Previously had been living in her own independent apartment. She tells me she feels more secure in her current living setting although she would prefer to live in her own apartment. She indicates she knows and understands she is not able to live independently safely in her own apartment any longer. Yesterday she had the onset of a cough and runny nose with mild sore throat. Did not think much of it. Awoke early this morning gasping for air. [place] like she had a load of bricks sitting on her chest. Simply could not catch her breath. Chest felt tight. Administered additional dose of bronchodilator therapy via nebulization. Did not feel she had much relief. EMS was called and transported her to our emergency department. Of note there have been others in her [facility] that have also been ill with respiratory tract symptoms lately. With oxygen at 2 liters/minute via nasal cannula her oxygen saturations are 89% in the emergency department. Within a relatively short period of time they changed her to high-flow oxygen, humidified, at 30 liters/minute with FiO2 of 0.4, achieving oxygen saturations of 90-92%. Chest x-ray demonstrates no acute infiltrate. Viral swab for RSV is positive. Viral swab for influenza a and influenza B are negative as well as COVID-19. She starts to respond to additional bronchodilator nebulized therapy. By the time I see her she states she feels much improved like she can move air again. Denies fevers, rigors, diaphoresis. No syncope, near syncope, orthostasis, dizziness, or lightheadedness. Cough is not productive. Denies nausea or vomiting. Denies abdominal pain. Denies dysuria, urgency, frequency, hematuria. Tells me how she is working with her sleep specialist due to concurrent diagnosis of vocal cord dysfunction and obstructive sleep apnea. Presently not utilizing her CPAP machine. Review of Systems Status of ROS: Reports: 10 or more systems reviewed and unremarkable except as noted in History and below [facility] Medical History (Updated 07/23/24 @ 13:43 by Maxx Mendieta MD) Hypothyroidism ?E03.9 - Hypothyroidism, unspecified (ICD-10) Acute and chronic respiratory failure with hypoxia ?J96.21 - Acute and chronic respiratory failure with hypoxia (ICD-10) 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 - Unspecified convulsions (ICD-10) RODRICK (obstructive sleep apnea) ?G47.33 - Obstructive sleep apnea (adult) (pediatric) (ICD-10) ADHD ?F90.9 - Attention-deficit hyperactivity disorder, unspecified type (ICD-10) Hyperthyroidism ?E05.90 - Thyrotoxicosis, unspecified without thyrotoxic crisis or storm (ICD-10) Hydrocephalus ?G91.9 - Hydrocephalus, unspecified (ICD-10) Hyperlipidemia ?E78.5 - Hyperlipidemia, unspecified (ICD-10) Anxiety and depression ?F41.9 - Anxiety disorder, unspecified (ICD-10) ?F32.A - Depression, unspecified (ICD-10) Asthma ?J45.909 - Unspecified asthma, uncomplicated (ICD-10) Surgical History History of ear surgery ?Z98.890 - Other specified postprocedural states (ICD-10) History of strabismus surgery ?Z98.890 - Other specified postprocedural states (ICD-10) Social History Narrative: on disability since 2009; lives alone with her cat. nonsmoker, no drugs, no significant tobacco history adopted, her two adopted aunts are her family contacts. What is your current living situation?: I presently have a place to live Problems where you live: no known problems Problems where you live details: none In the past 12 months, utilities in danger of being shut off: no In past 12 months, lack of transportation kept you from medical appts, meetings, work, or getting things needed for daily living: no In the past 12 mos, have been you worried that your food would run out before you had money to buy more?: never true In the past 12 mos, the food you bought just didn't last and you didn't have money to buy more?: never true Highest level of school completed/degree received: Associate degree: academic program Smoking Status: Never smoker Do you use any of these nicotine containing products: None Second hand tobacco smoke exposure: Yes How often do you have a drink containing alcohol: never How often do you have six or more drinks on one occasion: Never AUDIT-C Alcohol total score: 0 Non-prescribed substance use: denies use Caffeine: Yes How often does anyone, including family, friends and others, physically hurt you: never How often does anyone, including family, friends and others, insult or talk down to you: never How often does anyone, including family, friends and others, threaten you with harm: never How often does anyone, including family, friends and others, scream or curse at you: never service: No Meds Home Medications and Allergies Home Medications ?Medication ?Instructions ?Recorded ?Confirmed ?Type albuterol sulfate 90 mcg/actuation 1 - 2 puff inhalation Q4H PRN 11/30/21 07/23/24 History aerosol inhaler mirabegron 50 mg tablet,extended 50 mg PO DAILY 11/30/21 07/23/24 History release 24 hr (Myrbetriq) montelukast 10 mg tablet 10 mg PO HS 11/30/21 07/23/24 History omeprazole 20 mg capsule,delayed 40 mg PO DAILY 02/26/22 07/23/24 History release levetiracetam 750 mg tablet 750 mg PO BID 11/25/22 07/23/24 History (Keppra) cholecalciferol (vitamin D3) 50 50 mcg PO DAILY 01/30/23 07/23/24 History mcg (2,000 unit) capsule paroxetine HCl 40 mg tablet 40 mg PO DAILY 01/30/23 07/23/24 History levothyroxine 100 mcg tablet 100 mcg PO DAILY 10/16/23 07/23/24 History potassium chloride 10 mEq 20 meq PO DAILY 10/16/23 07/23/24 History tablet,extended release aluminum-mag hydroxide-simethicone 5 - 10 ml PO 5XD PRN 03/20/24 07/23/24 History 200 mg-200 mg-20 mg/5 mL oral susp (Maalox Advanced) dextromethorphan HBr 10 mg/5 mL 5 - 10 mg PO Q4-6H PRN 03/20/24 07/23/24 History oral syrup diphenhydramine HCl 25 mg capsule 25 mg PO DAILY PRN 03/20/24 07/23/24 History (Banophen) ibuprofen 200 mg capsule 200 - 400 mg PO Q4-6H PRN 03/20/24 07/23/24 History loperamide 2 mg tablet 1 mg PO Q6H PRN 03/20/24 07/23/24 History (Anti-Diarrheal (loperamide)) magnesium hydroxide 400 mg/5 mL 15 - 30 ml PO DAILY PRN 03/20/24 07/23/24 History oral suspension (Milk of Magnesia) terbinafine HCl 1 % topical cream 1 applic topical BID 03/20/24 07/23/24 History alprazolam 0.5 mg tablet 0.5 mg PO DAILY 07/23/24 07/23/24 History famotidine 20 mg tablet 20 mg PO BID 07/23/24 07/23/24 History fluticasone propionate 50 2 spray intranasal DAILY 07/23/24 07/23/24 History mcg/actuation nasal spray,suspension furosemide 20 mg tablet 20 mg PO BID@08,12 07/23/24 07/23/24 History ipratropium 0.5 mg-albuterol 3 mg 1 ml inhalation TID 07/23/24 07/23/24 History (2.5 mg base)/3 mL nebulization soln mirtazapine 15 mg tablet 15 mg PO HS 07/23/24 07/23/24 History Allergies Allergy/AdvReac Type Severity Reaction Status Date / Time azithromycin Allergy Intermediate Bloody Verified 07/10/24 23:20 Stools latex Allergy Intermediate Rash Verified 07/10/24 23:20 oxycodone Allergy Intermediate Agitated Verified 07/10/24 23:20 scopolamine Allergy Intermediate Tremors Verified 07/10/24 23:20 basil Allergy Rash Verified 07/10/24 23:20 Exam Narrative: Exam Narrative: I 1st examined the patient in the emergency department and secondly on the hospital floor. Friendly, cooperative. Vision and hearing are adequate. Alert and oriented x3. Able to speak in full sentences without having to stop and catch her breath. Short in stature and obese. Mild erythema both tympanic membranes, right more so than left. Midline nasal septum with clear nasal discharge. Mallampati class 4 airway with moist buccal mucosa. Neck is full. Neck is supple. Lungs with decreased air entry with inspiratory and expiratory wheezing and scattered rhonchi. No obvious rales. No CVA tenderness to thumping. Heart tones are distant with regular rhythm, normal S1-S2, without murmur, gallop, rub. PMI is not laterally displaced. Abdomen with active bowel sounds, soft, nontender. Obese. No rebound or guarding. Extremities with trace edema pretibially bilaterally. No focal motor neurologic deficits. Skin is warm, dry, intact. Const: Vital Signs, click to edit/add: Vital Signs - 24 hr 07/23/24 05:21 07/23/24 05:34 07/23/24 05:36 Temperature 99 F Pulse Rate 101 H Pulse Rate [Pulse Oximeter] 101 H Pulse Rate [Right Radial] Respiratory Rate 16 Blood Pressure Blood Pressure [Le ft Arm] Blood Pressure [Ri ght Upper Arm] 111/67 Pulse Oximetry 90 93 90 Oxygen Delivery Me thod Nasal Cannula Oxygen Flow Rate 2 Fraction of Inspir ed Oxygen 07/23/24 05:45 07/23/24 06:00 07/23/24 06:15 Temperature Pulse Rate 98 97 96 Pulse Rate [Pulse Oximeter] Pulse Rate [Right Radial] Respiratory Rate 21 27 H 22 Blood Pressure Blood Pressure [Le ft Arm] Blood Pressure [Ri ght Upper Arm] Pulse Oximetry 91 91 89 Oxygen Delivery Me thod Oxygen Flow Rate Fraction of Inspir ed Oxygen 07/23/24 06:30 07/23/24 06:45 07/23/24 06:56 Temperature Pulse Rate 98 100 Pulse Rate [Pulse Oximeter] Pulse Rate [Right Radial] Respiratory Rate 14 22 Blood Pressure Blood Pressure [Le ft Arm] Blood Pressure [Ri ght Upper Arm] Pulse Oximetry 100 90 Oxygen Delivery Me thod High Flow Nasal Ca nnula Oxygen Flow Rate 30 Fraction of Inspir ed Oxygen 40 40 07/23/24 07:00 07/23/24 07:14 07/23/24 07:15 Temperature Pulse Rate 103 H 103 H 103 H Pulse Rate [Pulse Oximeter] Pulse Rate [Right Radial] Respiratory Rate 21 22 23 Blood Pressure 123/66 Blood Pressure [Le ft Arm] Blood Pressure [Ri ght Upper Arm] Pulse Oximetry 90 90 90 Oxygen Delivery Me thod Oxygen Flow Rate Fraction of Inspir ed Oxygen 07/23/24 07:30 07/23/24 07:31 07/23/24 07:45 Temperature Pulse Rate 99 102 H 104 H Pulse Rate [Pulse Oximeter] Pulse Rate [Right Radial] Respiratory Rate 20 26 H 15 Blood Pressure 111/76 Blood Pressure [Le ft Arm] Blood Pressure [Ri ght Upper Arm] Pulse Oximetry 91 91 94 Oxygen Delivery Me thod Oxygen Flow Rate Fraction of Inspir ed Oxygen 07/23/24 08:00 07/23/24 08:56 07/23/24 09:44 Temperature 99.1 F Pulse Rate Pulse Rate [Pulse Oximeter] Pulse Rate [Right Radial] 100 Respiratory Rate 22 22 Blood Pressure Blood Pressure [Le ft Arm] 115/62 Blood Pressure [Ri ght Upper Arm] Pulse Oximetry 91 Oxygen Delivery Me thod High Flow Nasal Ca nnula Oxygen Flow Rate 30 Fraction of Inspir ed Oxygen 40 40 07/23/24 09:44 07/23/24 10:00 07/23/24 11:00 Temperature 97.9 F Pulse Rate Pulse Rate [Pulse Oximeter] Pulse Rate [Right Radial] 97 Respiratory Rate 20 20 Blood Pressure Blood Pressure [Le ft Arm] 136/65 Blood Pressure [Ri ght Upper Arm] Pulse Oximetry 93 93 Oxygen Delivery Me thod High Flow Nasal Ca nnula High Flow Nasal Ca nnula Oxygen Flow Rate 30 Fraction of Inspir ed Oxygen 40 40 07/23/24 12:00 Temperature Pulse Rate Pulse Rate [Pulse Oximeter] Pulse Rate [Right Radial] Respiratory Rate Blood Pressure Blood Pressure [Le ft Arm] Blood Pressure [Ri ght Upper Arm] Pulse Oximetry Oxygen Delivery Me thod Oxygen Flow Rate Fraction of Inspir ed Oxygen 40 Hospitalist - H&P: Result Labs Labs: Short CBC 07/23/24 Range/Units 05:20 WBC 7.65 (4.50-11.00) K/uL Hgb 11.4 L (12.0-16.0) gm/dL Hct 37.2 (33.0-51.0) % Plt Count 124 L (140-440) K/uL BMP 07/23/24 05:20 Sodium 135 Potassium 3.3 L Chloride 89 L Carbon Dioxide 37 H BUN 14 Creatinine 0.7 Glucose 128 H Calcium 8.7 Cardiac Enzymes 07/23/24 Range/Units 05:20 Troponin I < 0.01 L (0.01-0.04) ng/mL Liver Function 07/23/24 Range/Units 05:20 Total Bilirubin 0.4 (0.1-1.5) mg/dL AST 20 (12-35) U/L ALT 33 (4-35) U/L Alkaline Phosphatase 109 (40-150) U/L Albumin 3.6 (3.3-5.0) g/dL ECG Attestation: I personally reviewed and interpreted this ECG as follows: ECG interpretation date: 07/23/24 Interpretation: Normal sinus rhythm. Low-voltage QRS indicative of underlying pulmonary disease pattern. Imaging Chest x-ray: Attestation: I have reviewed the pertinent imaging results. Radiologist's impression: Findings/Impression: Cardiovascular and mediastinum: Upper normal heart size with slight prominence of the pulmonary artery suggesting underlying pulmonary arterial hypertension. Lungs and pleural space: No pleural effusion or pneumothorax. Pulmonary cephalization with reticular bilateral opacities, possibly interstitial edema and similar to slightly progressive compared to the study of 12 days prior. Likely granuloma at the right lung redemonstrated. Assessment and Plan Assessment and plan (1) Acute on chronic respiratory failure with hypoxia and hypercapnia: Problem comment: -multifactorial from baseline status plus current RSV infection -initiated course of steroids, scheduled and p.r.n. bronchodilator therapy, and oxygen support with high-flow oxygen presently at 30 liters/minute with FiO2 of 0.4 -working with respiratory therapy -serial venous blood gases -patient indicates desire for intubation and ventilation if her condition worsens to try to get through this acute illness. She states unequivocally that she does not want to be kept alive in a persistent vegetative state should such a condition evolved. Status: Acute (2) RSV infection: Problem comment: -symptom management as specified above Status: Acute (3) Hypoxia: Problem comment: -acute on chronic -symptom management as specified above Status: Acute (4) Hypercarbia: Problem comment: -acute on chronic -symptom management as specified above Status: Acute (5) Chest congestion: Problem comment: -due to acute RSV infection Status: Acute (6) Asthma exacerbation in COPD: Problem comment: -management as specified above Status: Acute (7) Anxiety: Problem comment: -continue with supportive efforts Status: Acute (8) Asthma: Problem comment: -PFTs done in November 2022: FEV1 0.74, 33% predicted, FEV1/FEV% 69, consistent with severe obstruction -outpatient management Ngoc Zaidi MD - pulm medicine -plan as above Status: Acute (9) RODRICK (obstructive sleep apnea): Problem comment: -she claims to be working with sleep specialist and was newly diagnosed with vocal cord dysfunction and will be initiating therapy for this shortly, meanwhile is presently not utilizing her CPAP machine Status: Acute (10) Anxiety and depression: Problem comment: -longstanding, continue home meds Status: Acute (11) Hydrocephalus: Problem comment: -apparently congenital and associated with a developmental learning disorder Status: Acute (12) Pseudoseizures: Problem comment: -has seen Neurology -apparently more common when stress -will continue home Keppra dosing Status: Acute (13) Hypothyroidism: Problem comment: -continue levothyroxine Status: Acute Plan 1. Reviewed impression and recommendations with patient 2. Answered her questions are satisfaction 3. She is agreeable with above stated plans and recommendations Total Time Spent Total Time Spent: 70 minutes
[2024-07-23] MEDS: IBUPROFEN 200 MG TABLET 400 MG PO ×2 (13:42→21:21)
[2024-07-23] MEDS: ONDANSETRON ODT 4 MG TAB PO (13:42)
[2024-07-23] MEDS: IPRAT-ALBUT 0.5-2.5 MG/3 ML NEB 1 NEB IH (13:45)
[2024-07-23 14:46] LABS: HCO3 VBG 38 mmol/L (21-28); PO2 VBG 75.5 mmHG (25-47); pH VBG 7.359 (7.32-7.43)
[2024-07-23 14:53] LABS: PCO2 VBG 68 mmHG (40-50)
--- NOTE | 2024-07-23 14:59 | PC.NURSE ---
End of Shift Note: Patient arrived from the ER around 10 am. She comes from her residence at [facility] with a complaint of SOB and has been dx with RSV. She has tolerated PO. Did remove the high flow placed her on a nasal cannula while she ate. Since that time she has been very sleepy. At one point is was apparent I startled her awake and she was shaking all over. I called out her name she stopped and then looked at me. I asked her what was that she said I have silent seizures. Did place seizure pads on her bed for protection. After a while I went in again to check on her and this time she was harder to arouse again. Update provider received orders for a stat VBG and he did come to the room to see her again. He believe because she was up most of the night that she is tired. She is currently being assisted by the nursing assistants to go to the bathroom. Will continue to monitor until next shift arrives.
[2024-07-23] MEDS: MONTELUKAST 10 MG TABLET PO (21:21)
[2024-07-23] MEDS: BENZONATATE 100 MG CAPSULE 200 MG PO (21:21)
[2024-07-23] MEDS: MIRTAZAPINE 15 MG TABLET PO (21:21)
[2024-07-23] MEDS: FAMOTIDINE 20 MG TABLET PO (21:21)
[2024-07-23] MEDS: ENOXAPARIN 40 MG/0.4 ML INJ SUBCUT (21:22)
[2024-07-24] VITALS (17 sets, daily range): BP systolic 114–147; BP diastolic 66–96; PULSE 94–114; RESP 20–30; TEMP 36.1–37.2; O2SAT 87–96
--- NOTE | 2024-07-24 00:40 | PC.NURSE ---
End of shift: The patient is alert and orientated, VS on HF NC..... tachycardia is noted. Reported a mild headache throughout the shift, PRN given. Up to commode to use BR w/ Ax1. Takes medications fine with thin liquids. Tessalon pearls were given as well. Lian VASQUEZ BSN
[2024-07-24] MEDS: ALBUTEROL SULFATE 2.5 MG/3 ML VIAL.NEB NEB ×4 (00:43→19:56)
[2024-07-24] MEDS: METHYLPREDNISOLONE SOD SUCC 40 MG/ML IVP (01:00)
[2024-07-24] MEDS: IPRAT-ALBUT 0.5-2.5 MG/3 ML NEB 1 NEB IH ×2 (01:00→08:20)
[2024-07-24] MEDS: SODIUM CHLORIDE 0.9 % (FLUSH) 10 ML SYRINGE 5 ML IVF ×4 (01:00→20:33)
--- NOTE | 2024-07-24 05:52 | PC.NURSE ---
[id number]: Patient A&Ox3 and cooperative. Anxious about HFNC. Nurse answered questions and offered reassurance. HFNC 40L 40% to maintain O2 sats >90%. A1 w/4ww pivot to BSC. SOB w/activity. C/o dry intermittent cough. Denies pain/N/V/CP. Incontinent.
[2024-07-24 07:24] LABS: Basophils Percent Auto 0.1 % (0.0-3.0); Hematocrit 39.1 % (33.0-51.0); Hemoglobin* 11.8 gm/dL (12.0-16.0); Immature Granulocytes Pct Auto 0.9 %; Lymphocytes Percent Auto 3.2 % (20-44); Mean Corpuscular HGB Conc 30 gm/dL (32-36); Mean Corpuscular Hemoglobin 29 pg (26-34); Mean Corpuscular Volume 97 fL (80-100); Neutrophils Percent Auto 93.8 % (42.0-72.0); Platelet Count* 157 K/uL (140-440); RDW Coefficient of Variation % 13.8 % (11.5-15.5); Red Blood Count 4.03 m/uL (4.00-5.20); White Blood Count* 11.31 K/uL (4.50-11.00)
[2024-07-24 07:27] LABS: Slide Review Reflex No
[2024-07-24 07:39] LABS: HCO3 VBG 39 mmol/L (21-28); Lactate* 0.8 mmol/L (0.5-1.9); PO2 VBG 60.6 mmHG (25-47); pH VBG 7.277 (7.32-7.43)
[2024-07-24 07:43] LABS: PCO2 VBG 85 mmHG (40-50)
[2024-07-24 07:58] LABS: Chloride* 93 mmol/L (96-114); Sodium* 136 mmol/L (135-149)
[2024-07-24 07:59] LABS: Potassium* 4.9 mmol/L (3.6-5.1)
[2024-07-24 08:01] LABS: Blood Urea Nitrogen* 22 mg/dL (5-24); Creatinine* 0.8 mg/dL (0.5-1.5); Est. Creatinine Clearance* 153.26; Estimated Glomerular Filt Rate 91 ml/min
[2024-07-24 08:02] LABS: Anion Gap 4 mEq/L (7-15); Carbon Dioxide* 39 mmol/L (20-32); Glucose* 187 mg/dL (60-115)
--- NOTE | 2024-07-24 08:19 | PM.IMPN1 ---
Progress Note: A&P Assessment and plan (1) Acute on chronic respiratory failure with hypoxia and hypercapnia: Problem details: -multifactorial from baseline status plus current RSV infection -initiated course of steroids, scheduled and p.r.n. bronchodilator therapy, and oxygen support with high-flow oxygen presently at 30 liters/minute with FiO2 of 0.4 -working with respiratory therapy -serial venous blood gases -patient indicates desire for intubation and ventilation if her condition worsens to try to get through this acute illness. She states unequivocally that she does not want to be kept alive in a persistent vegetative state should such a condition evolved. - 07/24 Acute worsening of hypercapnea, now associated with respiratory acidosis. Obtain CT chest PE protocol, results above. Start BiPAP and recheck VBG after starting BiPAP. I have reviewed her medications and have adjusted her nebulizers increasing albuterol to q.4 hours scheduled and holding off on DuoNebs for now. I am also holding alprazolam as this may worsen respiratory depression and hypercapnia. Continue furosemide and prednisone as ordered. Also treat for possible multifocal pneumonia. Status: Acute (2) Multifocal pneumonia: Problem details: - [address] chest today. White count elevated, but patient is also on steroids, which can cause that. Start ceftriaxone and azithromycin. I spoke with patient about her reported azithromycin allergy of ?bloody stools patient reports that she has since had azithromycin without problems and is okay with taking it. Status: Suspected (3) RSV infection: Problem details: -symptom management as specified above Status: Acute (4) Hypoxia: Problem details: -acute on chronic -symptom management as specified above Status: Acute (5) Hypercarbia: Problem details: -acute on chronic -symptom management as specified above Status: Acute (6) Chest congestion: Problem details: -due to acute RSV infection Status: Acute (7) Asthma exacerbation in COPD: Problem details: -management as specified above Status: Acute (8) Anxiety and depression: Problem details: -longstanding, continue home meds Status: Chronic (9) Asthma: Problem details: -PFTs done in November 2022: FEV1 0.74, 33% predicted, FEV1/FEV% 69, consistent with severe obstruction -outpatient management Ngoc Zaidi MD - pulm medicine -plan as above Status: Chronic (10) RODRICK (obstructive sleep apnea): Problem details: -she claims to be working with sleep specialist and was newly diagnosed with vocal cord dysfunction and will be initiating therapy for this shortly, meanwhile is presently not utilizing her CPAP machine Status: Chronic (11) Hydrocephalus: Problem details: -apparently congenital and associated with a developmental learning disorder - will avoid doxycycline Status: Chronic (12) Pseudoseizures: Problem details: -has seen Neurology -apparently more common when stress -will continue home Keppra dosing Status: Chronic (13) Hypothyroidism: Problem details: -continue levothyroxine Status: Chronic (14) Blood glucose elevated: Problem details: - markedly elevated fasting glucose this morning of 187. Patient does not have a history of diabetes. Hemoglobin A1c today is elevated at 6.2%, which is likely a more accurate test for prediabetes versus diabetes in this setting considering patient is currently on steroids, which has likely increased her fasting glucose. I suspect she has impaired fasting glucose and will start her on an insulin sliding scale while she is on prednisone. Status: Acute (15) Volume overload: Problem details: - furosemide twice a day IV, monitor I's and O's and daily weight Status: Acute (16) Chest pain: Problem details: - check trop, EKG, since also more hypoxic, check chest CT for PE and ECHO (last ECHO in 2022) Status: Acute Plan - BiPAP, recheck VBG after 1 hour, adjust nebs, continue prednisone, diurese, check ECHO - monitor in CCU due to bipap and h/o vocal cord dysfunction Time Spent With Patient Total time spent: Today I spent 60 minutes providing critical care for this patient, reviewing Expanse and EPIC notes/diagnostics/labs, discussing the care plan with our care team that includes social work, PT/OT, pharmacy, RT, chcf and documenting my impressions and plan in the medical record. Subjective Time Seen by Provider: 08:00 Date Seen: 07/24/24 Interval history: Paloma's pH and CO2 were worse this morning. I went to see her immediately. RT and her nurse were in there. They had just woken her up. Paloma said she felt fine and was breathing well without SOB, denies feeling foggy/confused. Her HFNC was out of her nose and fell out many times although we kept replacing it in the correct position. she told us that she had been started on CPAP while ago, but her ampoule filler asked her to stop using it recently because he said that she has vocal cord dysfunction and she notes it was causing worsening nasal congestion since she has been sick since Thanks. She is agreeable to try BiPAP or CPAP here. Exam Narrative: Exam Narrative: General: No acute distress. Awake, alert, oriented x3. Mental processing noted to be slow, unclear if this is patient's baseline. No pallor. No jaundice. Morbidly obese. Oropharynx: Clear. Mucous membranes moist. Cardiovascular: Mildly tachycardic, regular. No murmurs, gallops, or rubs. Respiratory: Tight, expiratory wheezes throughout. No crackles. Abdomen: Bowel sounds present. Soft, nondistended, nontender. Extremities: 2+ bilateral lower extremity pitting edema. Const: Vital Signs, click to edit/add: Vital Signs - 24 hr 07/23/24 08:56 07/23/24 09:44 07/23/24 09:44 Temperature 99.1 F Pulse Rate [Right Radial] 100 Respiratory Rate 22 20 Blood Pressure [Le ft Arm] 115/62 Pulse Oximetry 91 93 Oxygen Delivery Me thod High Flow Nasal Ca nnula High Flow Nasal Ca nnula Oxygen Flow Rate 30 Fraction of Inspir ed Oxygen 40 40 07/23/24 10:00 07/23/24 11:00 07/23/24 12:00 Temperature 97.9 F Pulse Rate [Right Radial] 97 Respiratory Rate 20 Blood Pressure [Le ft Arm] 136/65 Pulse Oximetry 93 Oxygen Delivery Me thod High Flow Nasal Ca nnula Oxygen Flow Rate 30 Fraction of Inspir ed Oxygen 40 40 40 07/23/24 14:00 07/23/24 15:00 07/23/24 16:44 Temperature 98.3 F Pulse Rate [Right Radial] 106 H Respiratory Rate 20 Blood Pressure [Le ft Arm] 126/59 L Pulse Oximetry 89 Oxygen Delivery Me thod High Flow Nasal Ca nnula Oxygen Flow Rate 30 Fraction of Inspir ed Oxygen 40 40 40 07/23/24 19:00 07/24/24 00:39 07/24/24 00:42 Temperature 98.2 F 97.8 F Pulse Rate [Right Radial] 104 H 108 H Respiratory Rate 20 20 Blood Pressure [Le ft Arm] 117/70 118/79 Pulse Oximetry 90 92 Oxygen Delivery Me thod High Flow Nasal Ca nnula High Flow Nasal Ca nnula Oxygen Flow Rate 40 40 Fraction of Inspir ed Oxygen 40 40 40 07/24/24 04:30 Temperature 97.9 F Pulse Rate [Right Radial] 102 H Respiratory Rate 20 Blood Pressure [Le ft Arm] 133/89 Pulse Oximetry 91 Oxygen Delivery Me thod [place] Nasal Ca nnula Oxygen Flow Rate 40 Fraction of Inspir ed Oxygen 40 Labs Labs: Laboratory Results - last 24 hr 07/23/24 07/23/24 07/23/24 05:20 09:50 10:02 WBC RBC Hgb Hct MCV MCH MCHC RDW Coeff of Tomy Plt Count Neut % (Auto) Lymph % (Auto) [place] % (Auto) Eos % (Auto) Baso % (Auto) Neut # (Auto) Lymph # (Auto) [place] # (Auto) Eos # (Auto) Baso # (Auto) Abs Immat Gran (auto) Imm/Tot Granulo (auto) VBG pH 7.385 VBG pCO2 68 H* VBG pO2 52.7 H VBG HCO3 41 H Sodium Potassium Chloride Carbon Dioxide Anion Gap BUN Creatinine Estimated Creat Clear Estimated GFR Glucose Lactate Calcium Phosphorus Magnesium Troponin I < 0.01 L Lab Acknowledgement Test Added 07/23/24 07/24/24 14:42 06:56 WBC 11.31 H RBC 4.03 Hgb 11.8 L Hct 39.1 MCV 97 MCH 29 MCHC 30 L RDW Coeff of Tomy 13.8 Plt Count 157 Neut % (Auto) 93.8 H Lymph % (Auto) 3.2 L [place] % (Auto) 2.0 Eos % (Auto) 0.0 Baso % (Auto) 0.1 Neut # (Auto) 10.60 H Lymph # (Auto) 0.40 L [place] # (Auto) 0.20 Eos # (Auto) 0.00 Baso # (Auto) 0.00 Abs Immat Gran (auto) 0.10 Imm/Tot Granulo (auto) 0.9 VBG pH 7.359 7.277 L VBG pCO2 68 H* 85 H* VBG pO2 75.5 H 60.6 H VBG HCO3 38 H 39 H Sodium 136 Potassium 4.9 Chloride 93 L Carbon Dioxide 39 H Anion Gap 4 L BUN 22 Creatinine 0.8 Estimated Creat Clear 153.26 Estimated GFR 91 Glucose 187 H Lactate 0.8 Calcium 9.0 Phosphorus 4.0 Magnesium 2.0 Troponin I Lab Acknowledgement 07/24/2024 EKG: Sinus tachycardia, 101 beats per minute, otherwise normal EKG. Ordering Physician: Jada Reddy M.D. Date of Service: 07/24/24 Procedure(s): CT angio chest PE protocol Accession Number(s): [id number] cc: Geronimo Lamb M.D.; Jada Reddy M.D.~ For Patients: As a result of the Cures Act, medical imaging exams and procedure reports are released immediately into your electronic medical record. You may view this report before your referring provider. If you have questions, please contact your health care provider. INDICATION: Acute respiratory failure TECHNIQUE: CT chest with 95 mL Isovue 370 intravenous contrast. COMPARISON: CT 06/16/2024 FINDINGS: Lungs and pleura: Bilateral left greater than right perihilar soft tissue thickening. Bilateral patchy areas of consolidation which may represent multifocal pneumonia, other infectious inflammatory etiologies. There is mosaic attenuation which can be seen with air trapping. Probable calcified nodule anterior right. upper lobe unchanged. Bilateral bronchial wall thickening Heart and vasculature: Heart size is normal. Thoracic aorta is normal in caliber. Enlarged which can be main pulmonary artery appears seen with pulmonary arterial hypertension. Lymph nodes/mediastinum: No mediastinal, hilar, or axillary adenopathy. Chest wall: No masses. Upper abdomen: Cholelithiasis Bones: Unremarkable for age. IMPRESSION: 1. No pulmonary emboli. Bilateral patchy areas of consolidation which may represent multifocal pneumonia, other infectious inflammatory etiologies. Please note that all CT scans at this facility use dose modulation, iterative reconstruction, and/or weight-based dosing when appropriate to reduce radiation dose to as low as reasonably achievable. Dictated by Yi Nelson MD @ 07/24/2024 11:05:39 AM (Electronically Signed)
[2024-07-24] MEDS: predniSONE 20 MG TABLET 40 MG PO (08:20)
[2024-07-24] MEDS: LEVOTHYROXINE 100 MCG TABLET PO (09:14)
[2024-07-24] MEDS: OMEPRAZOLE 20 MG CAPSULE DR 40 MG PO (09:15)
[2024-07-24] MEDS: levETIRAcetam 500 MG TABLET 750 MG PO ×2 (09:15→20:34)
[2024-07-24] MEDS: BENZONATATE 100 MG CAPSULE 200 MG PO ×3 (09:16→20:34)
[2024-07-24] MEDS: FAMOTIDINE 20 MG TABLET PO ×2 (09:16→20:34)
[2024-07-24] MEDS: POTASSIUM CHLORIDE 10 MEQ CAPSULE ER 20 MEQ PO (09:16)
[2024-07-24] MEDS: FUROSEMIDE 10 MG/ML inj 40 MG IVP ×2 (09:17→16:21)
[2024-07-24 09:19] LABS: Hemoglobin A1C* 6.2 % (0-5.6)
[2024-07-24] MEDS: PARoxetine 20 MG TABLET 40 MG PO (09:19)
[2024-07-24 09:27] LABS: Troponin I* < 0.01 ng/mL (0.01-0.04)
--- NOTE | 2024-07-24 09:45 | RESP.RT ---
pt seen this AM with provider after speaking with RN, and seeing morning VBG. Pt curled up on side in Bed, HFNC at side of face. SPO2 79%. Pt awakened, HFNC replaced saturations increased back to 94. BBS with tight diffuse expiratory wheezing. Will increase frequency of nebs. Pt is a Poor historian. Scanned pulmonary notes from [place] [facility] reviewed. Greater context of pt airway compromise revealed. Pt with sever obstructive disease. has been non complinat with her CPAP for years Has been non compliant with over use of her inhalation medications. Going for PE study, will place BIPAP when she returns.
[2024-07-24 09:46] LABS: Troponin I* < 0.01 ng/mL (0.01-0.04)
[2024-07-24 10:10] LABS: HCO3 VBG 40 mmol/L (21-28); pH VBG 7.285 (7.32-7.43)
[2024-07-24 10:13] LABS: PCO2 VBG 83 mmHG (40-50)
[2024-07-24 12:29] LABS: HCO3 VBG 40 mmol/L (21-28); PO2 VBG 78.5 mmHG (25-47); pH VBG 7.373 (7.32-7.43)
[2024-07-24 12:30] LABS: PCO2 VBG 68 mmHG (40-50)
--- NOTE | 2024-07-24 12:57 | REH.OT ---
Attempted to see patient multiple times today, unavailable due to switching rooms, scans, and bipap. Will schedule OT eval for tomorrow.
[2024-07-24] MEDS: cefTRIAXone 1 GM in 0.9 % SODIUM CHLORIDE Mini-bag 100 ML IVPB (13:25)
[2024-07-24] MEDS: AZITHROMYCIN 250 MG TABLET 500 MG PO (13:25)
[2024-07-24] MEDS: PERFLUTREN LIPID MICROSPHERES 2 ML VIAL IVP (14:54)
[2024-07-24] MEDS: GUAIF/DM 200-20 MG/20 ML 118 ML LIQUID 10 ML PO (16:30)
[2024-07-24] MEDS: 0.9 % SODIUM CHLORIDE 250 ml IV (16:43)
[2024-07-24] MEDS: INSULIN ASPART 100 UNIT/ML SUBCUT ×2 (18:56→20:46)
--- NOTE | 2024-07-24 19:51 | PC.NURSE ---
Shift Note : Pt noted to be desaturating this morning. She was discovered with HFNC removed from her nose. VBG's critically high. Pt placed on Bipap for most of the afternoon and repeat VBG's improved. Pt has been able to tolerate 2L/O2 via NC for short periods of time to eat a meal or take a break from the bipap facemask. Pt states she feels like there is phlegm or sputum that she is almost able to expectorate but has been unsuccessful so far. LS wheezy throughout. PRN Robitussin given. Accuchecks added for pt per MD. BG at dinner was 231, SS novolog given. Medium BM this afternoon. Pt has been mostly continent of urine and utilizes the BSC. She has had one or two episodes of urge incontinence.
[2024-07-24] MEDS: ENOXAPARIN 40 MG/0.4 ML INJ SUBCUT (20:33)
[2024-07-24] MEDS: MONTELUKAST 10 MG TABLET PO (20:34)
[2024-07-24] MEDS: MIRTAZAPINE 15 MG TABLET PO (20:34)
[2024-07-25] VITALS (21 sets, daily range): BP systolic 104–141; BP diastolic 68–92; PULSE 97–117; RESP 18–33; TEMP 35.9–37.3; O2SAT 88–94
[2024-07-25] MEDS: ALBUTEROL SULFATE 2.5 MG/3 ML VIAL.NEB NEB ×7 (01:41→20:37)
[2024-07-25] MEDS: IBUPROFEN 200 MG TABLET 400 MG PO ×2 (04:36→12:28)
--- NOTE | 2024-07-25 05:29 | PC.NURSE ---
[id number] Pt tolerated BiPAP during entire shift, using 2L O2 NC during Nebs, and BR breaks. coughed up thick yellow phlegm x1 at beginning of shift. denies feeling light headed/dizzy or SOB, does report chest pain with coughing and the feeling of tightness that is relieved with the neb treatments.
[2024-07-25] MEDS: LEVOTHYROXINE 100 MCG TABLET PO (06:06)
[2024-07-25 07:15] LABS: HCO3 VBG 43 mmol/L (21-28); PO2 VBG 58.2 mmHG (25-47); pH VBG 7.312 (7.32-7.43)
[2024-07-25 07:16] LABS: Basophils Percent Auto 0.1 % (0.0-3.0); Eosinophils Percent Auto 0.1 % (0.0-7.0); Immature Granulocytes Pct Auto 0.6 %; Lymphocytes Percent Auto 6.9 % (20-44); Mean Corpuscular HGB Conc 30 gm/dL (32-36); Mean Corpuscular Hemoglobin 29 pg (26-34); Mean Corpuscular Volume 98 fL (80-100); Monocytes Percent Auto 8.4 % (0.0-11.0); Neutrophils Percent Auto 83.9 % (42.0-72.0); Platelet Count* 177 K/uL (140-440); RDW Coefficient of Variation % 14.4 % (11.5-15.5); Red Blood Count 3.76 m/uL (4.00-5.20); White Blood Count* 13.26 K/uL (4.50-11.00)
[2024-07-25 07:20] LABS: PCO2 VBG 86 mmHG (40-50)
[2024-07-25 07:23] LABS: Slide Review Reflex No
[2024-07-25 07:34] LABS: Chloride* 90 mmol/L (96-114)
[2024-07-25 07:35] LABS: Potassium* 3.9 mmol/L (3.6-5.1); Sodium* 138 mmol/L (135-149)
[2024-07-25 07:37] LABS: Blood Urea Nitrogen* 32 mg/dL (5-24); Est. Creatinine Clearance* 122.73; Estimated Glomerular Filt Rate 70 ml/min
[2024-07-25 07:38] LABS: Calcium* 8.8 mg/dL (8.4-10.6); Glucose* 129 mg/dL (60-115)
[2024-07-25 07:45] LABS: Anion Gap 8 mEq/L (7-15); Carbon Dioxide* 40 mmol/L (20-32)
[2024-07-25 08:52] LABS: Chloride* 90 mmol/L (96-114); Sodium* 138 mmol/L (135-149)
[2024-07-25 08:53] LABS: Potassium* 4.1 mmol/L (3.6-5.1)
[2024-07-25 08:55] LABS: Blood Urea Nitrogen* 34 mg/dL (5-24); Est. Creatinine Clearance* 122.73; Estimated Glomerular Filt Rate 70 ml/min
[2024-07-25 08:56] LABS: Calcium* 8.6 mg/dL (8.4-10.6); Glucose* 122 mg/dL (60-115)
[2024-07-25] MEDS: FUROSEMIDE 10 MG/ML inj 40 MG IVP ×2 (09:00→16:39)
[2024-07-25] MEDS: SODIUM CHLORIDE 0.9 % (FLUSH) 10 ML SYRINGE 5 ML IVF ×3 (09:01→20:37)
[2024-07-25] MEDS: POTASSIUM CHLORIDE 10 MEQ CAPSULE ER 20 MEQ PO (09:01)
[2024-07-25] MEDS: predniSONE 20 MG TABLET 40 MG PO (09:01)
[2024-07-25] MEDS: BENZONATATE 100 MG CAPSULE 200 MG PO ×3 (09:01→20:34)
[2024-07-25] MEDS: FAMOTIDINE 20 MG TABLET PO ×2 (09:01→20:34)
[2024-07-25 09:02] LABS: Anion Gap 8 mEq/L (7-15); Carbon Dioxide* 40 mmol/L (20-32)
[2024-07-25] MEDS: OMEPRAZOLE 20 MG CAPSULE DR 40 MG PO (09:02)
[2024-07-25] MEDS: levETIRAcetam 500 MG TABLET 750 MG PO ×2 (09:02→20:35)
[2024-07-25] MEDS: PARoxetine 20 MG TABLET 40 MG PO (09:02)
[2024-07-25] MEDS: FLUTICASONE PROPIONATE NASAL 2 SPRAY NOSTRIL-B (09:03)
[2024-07-25 12:11] LABS: HCO3 VBG 44 mmol/L (21-28); PO2 VBG 55.7 mmHG (25-47); pH VBG 7.374 (7.32-7.43)
[2024-07-25] MEDS: INSULIN ASPART 100 UNIT/ML SUBCUT ×3 (12:11→20:44)
[2024-07-25 12:13] LABS: PCO2 VBG 75 mmHG (40-50)
[2024-07-25] MEDS: AZITHROMYCIN 250 MG TABLET 500 MG PO (12:29)
[2024-07-25] MEDS: cefTRIAXone 1 GM in 0.9 % SODIUM CHLORIDE Mini-bag 100 ML IVPB (12:48)
--- NOTE | 2024-07-25 12:48 | RESP.RT ---
BIPAP IPAP inceased to 15cwp today for continued CO2 retention at night. PT with BIPAP on during day off an on. Uses 2L when off of BIPAP. She does not wear her CPAP at home. She has severe obstructive disease per her PFTS with Pulmonology. 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 Continue with BIPAP at night, encourage her to use her unit at home, follow up with Pulmonary/sleep medicine
--- NOTE | 2024-07-25 15:55 | PM.IMPN1 ---
Progress Note: A&P Assessment and plan (1) Acute on chronic respiratory failure with hypoxia and hypercapnia: Problem details: -multifactorial from baseline status plus current RSV infection -initiated course of steroids, scheduled and p.r.n. bronchodilator therapy, and oxygen support with high-flow oxygen presently at 30 liters/minute with FiO2 of 0.4 -working with respiratory therapy -serial venous blood gases -patient indicates desire for intubation and ventilation if her condition worsens to try to get through this acute illness. She states unequivocally that she does not want to be kept alive in a persistent vegetative state should such a condition evolved. - 3/ Acute worsening of hypercapnea, now associated with respiratory acidosis. Obtain CT chest PE protocol, results above. Start BiPAP and recheck VBG after starting BiPAP. I have reviewed her medications and have adjusted her nebulizers increasing albuterol to q.4 hours scheduled and holding off on DuoNebs for now. I am also holding alprazolam as this may worsen respiratory depression and hypercapnia. Continue furosemide and prednisone as ordered. Also treat for possible multifocal pneumonia. - 3/2 adjusted BiPAP settings this morning to account for overnight worsening, likely secondary to sleep apnea and obesity hypoventilation syndrome. Patient compensates once awake with improvement of pH and hypercapnia. Continue treatment with nebulizers, BiPAP, DuoNebs, albuterol and holding alprazolam. Status: Acute (2) Multifocal pneumonia: Problem details: - 3/ seen on CT chest today. White count elevated, but patient is also on steroids, which can cause that. Start ceftriaxone and azithromycin. I spoke with patient about her reported azithromycin allergy of ?bloody stools patient reports that she has since had azithromycin without problems and is okay with taking it. - 3/2 patient remains afebrile. Continue ceftriaxone, azithromycin and steroids. Status: Suspected (3) RSV infection: Problem details: -symptom management as specified above Status: Acute (4) Hypoxia: Problem details: -acute on chronic -symptom management as specified above Status: Acute (5) Hypercarbia: Problem details: -acute on chronic -symptom management as specified above Status: Acute (6) Chest congestion: Problem details: -due to acute RSV infection Status: Acute (7) Asthma exacerbation in COPD: Problem details: -management as specified above Status: Acute (8) Anxiety and depression: Problem details: -longstanding, continue home meds Status: Chronic (9) Asthma: Problem details: -PFTs done in November 2022: FEV1 0.74, 33% predicted, FEV1/FEV% 69, consistent with severe obstruction -outpatient management Ngoc Zaidi MD - pulm medicine -plan as above Status: Chronic (10) RODRICK (obstructive sleep apnea): Problem details: -she claims to be working with sleep specialist and was newly diagnosed with vocal cord dysfunction and will be initiating therapy for this shortly, meanwhile is presently not utilizing her CPAP machine Status: Chronic (11) Hydrocephalus: Problem details: -apparently congenital and associated with a developmental learning disorder - will avoid doxycycline Status: Chronic (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 Patient does not have a history of diabetes. Hemoglobin A1c today is elevated at 6.2%, which is likely a more accurate test for prediabetes versus diabetes in this setting considering patient is currently on steroids, which has likely increased her fasting glucose. I suspect she has impaired fasting glucose and will start her on an insulin sliding scale while she is on prednisone. - 3/2 continue insulin sliding scale while in the hospital on prednisone Status: Acute (15) Volume overload: Problem details: - furosemide twice a day IV, monitor I's and O's and daily weight Status: Acute (16) Chest pain: Problem details: - 3/ check trop, EKG, since also more hypoxic, check chest CT for PE and ECHO (last ECHO in 2022) - 3/2 trop pending, EKG okay. Suspect anxiety, alprazolam is on hold due to resp failure Status: Acute Time Spent With Patient Total time spent: Today I spent 50 minutes seeing this patient, reviewing Expanse and EPIC notes/diagnostics/labs, discussing the care plan with our care team that includes social work, PT/OT, pharmacy, RT, long term and documenting my impressions and plan in the medical record. Subjective Time Seen by Provider: 08:15 Date Seen: 07/25/24 Interval history: Paloma was sleeping soundly this morning when I went to see her (after getting her blood drawn about 1 hour before). She said she was feeling a bit better and did not remember seeing me yesterday. Later in the day, she complained of CP again, like yesterday. Exam Narrative: Exam Narrative: General: No acute distress. Awake, alert, oriented x3. Mental processing noted to be slow, unclear if this is patient's baseline. No pallor. No jaundice. Morbidly obese. Pickwickian features. Oropharynx: Clear. Mucous membranes moist. Cardiovascular: Mildly tachycardic, regular. No murmurs, gallops, or rubs. Respiratory: Less tight today, scattered expiratory wheezes. No crackles. Abdomen: Bowel sounds present. Soft, nondistended, nontender. Extremities: 2+ bilateral lower extremity pitting edema. Const: Vital Signs, click to edit/add: Vital Signs - 24 hr 07/24/24 16:00 07/24/24 18:50 07/24/24 19:00 Temperature 98.4 F 99 F Pulse Rate 107 H Pulse Rate [Right Radial] 109 H 114 H Respiratory Rate 23 30 H Blood Pressure [Ri ght Arm] 135/90 H 118/90 H Pulse Oximetry 91 89 Oxygen Delivery Me thod BiPAP Nasal Cannula Oxygen Flow Rate 2 Fraction of Inspir ed Oxygen 35 07/24/24 20:00 07/24/24 22:00 07/24/24 23:00 Temperature 97.8 F 98.5 F Pulse Rate Pulse Rate [Right Radial] 114 H 108 H 107 H Respiratory Rate 26 H 26 H 26 H Blood Pressure [Ri ght Arm] 121/69 118/70 Pulse Oximetry 87 L 96 Oxygen Delivery Me thod Nasal Cannula BiPAP Oxygen Flow Rate 2 Fraction of Inspir ed Oxygen 35 07/24/24 23:22 07/25/24 00:00 07/25/24 02:00 Temperature 99.1 F Pulse Rate 95 Pulse Rate [Right Radial] 107 H 110 H Respiratory Rate 18 23 Blood Pressure [Ri ght Arm] 125/79 108/69 Pulse Oximetry 94 94 Oxygen Delivery Me thod BiPAP BiPAP Oxygen Flow Rate Fraction of Inspir ed Oxygen 35 35 07/25/24 03:10 07/25/24 04:00 07/25/24 06:00 Temperature 98.7 F Pulse Rate 109 H Pulse Rate [Right Radial] 106 H 105 H Respiratory Rate 18 18 Blood Pressure [Ri ght Arm] 131/89 131/81 Pulse Oximetry 93 92 Oxygen Delivery Me thod BiPAP BiPAP Oxygen Flow Rate Fraction of Inspir ed Oxygen 35 35 07/25/24 07:00 07/25/24 07:00 07/25/24 08:00 Temperature 97.0 F L Pulse Rate 107 H Pulse Rate [Right Radial] 112 H 112 H Respiratory Rate 33 H 28 H Blood Pressure [Ri ght Arm] 114/83 Pulse Oximetry 93 Oxygen Delivery Me thod BiPAP Oxygen Flow Rate Fraction of Inspir ed Oxygen 07/25/24 10:00 07/25/24 11:45 07/25/24 12:00 Temperature 97.8 F Pulse Rate 111 H Pulse Rate [Right Radial] 112 H 117 H Respiratory Rate 33 H 28 H Blood Pressure [Ri ght Arm] 120/79 120/71 Pulse Oximetry 88 88 Oxygen Delivery Me thod BiPAP Nasal Cannula Oxygen Flow Rate 2 Fraction of Inspir ed Oxygen 30 07/25/24 12:30 07/25/24 12:46 07/25/24 14:00 Temperature Pulse Rate Pulse Rate [Right Radial] 117 H 113 H Respiratory Rate 28 H 18 Blood Pressure [Ri ght Arm] 104/68 Pulse Oximetry 88 Oxygen Delivery Me thod BiPAP Oxygen Flow Rate Fraction of Inspir ed Oxygen 30 Labs Labs: Laboratory Results - last 24 hr 07/25/24 07/25/24 07/25/24 06:47 08:03 12:06 WBC 13.26 H RBC 3.76 L Hgb 11.0 L Hct 37.0 MCV 98 MCH 29 MCHC 30 L RDW Coeff of Tomy 14.4 Plt Count 177 Neut % (Auto) 83.9 H Lymph % (Auto) 6.9 L [place] % (Auto) 8.4 Eos % (Auto) 0.1 Baso % (Auto) 0.1 Neut # (Auto) 11.10 H Lymph # (Auto) 0.90 [place] # (Auto) 1.10 H Eos # (Auto) 0.00 Baso # (Auto) 0.00 Abs Immat Gran (auto) 0.10 Imm/Tot Granulo (auto) 0.6 VBG pH 7.312 L 7.374 VBG pCO2 86 H* 75 H* VBG pO2 58.2 H 55.7 H VBG HCO3 43 H 44 H Sodium 138 138 Potassium 3.9 4.1 Chloride 90 L 90 L Carbon Dioxide 40 H 40 H Anion Gap 8 8 BUN 32 H 34 H Creatinine 1.0 1.0 Estimated Creat Clear 122.73 122.73 Estimated GFR 70 70 Glucose 129 H 122 H Calcium 8.8 8.6
[2024-07-25 16:29] LABS: Troponin I* < 0.01 ng/mL (0.01-0.04)
[2024-07-25] MEDS: GUAIF/DM 200-20 MG/20 ML 118 ML LIQUID 10 ML PO (18:12)
--- NOTE | 2024-07-25 18:52 | PC.NURSE ---
End of shift-- Pt pleasant and cooperative, alert and oriented. VSS, though tachycardic and occasionally tachypneic, and pt is afebrile. SPO2 maintained 87-91% on bipap with settings per RT, see EMR for details. O2 sats dropped as low as 78% with exertion and 2L per n.c. Inspiratory and Expiratory wheezing noted throughout lung [place]. Pt did c/o some chest pain twice today. Once she stated that she had chest pain with coughing, rated pain 2 out of 10 and was given Motrin with stated relief. The second time, pt rated pain 6 out of 10, MD was notified and EKG was completed showing sinus tachycardia. Telemetry showed sinus tachycardia. She denied nausea and ate 100% of a regular diabetic diet independently. Pt was encouraged to eat frequent small meals and avoid carbonated beverages. BG 135-208 today and pt given insulin per ss. She was up to the BR with n.c. at 2L and pt tolerated it fair. She did become SOB with exertion. Pt's parents were at bedside today and appear loving and supportive. Report to PEDRO Bain.
[2024-07-25] MEDS: MONTELUKAST 10 MG TABLET PO (20:36)
[2024-07-25] MEDS: MIRTAZAPINE 15 MG TABLET PO (20:36)
[2024-07-25] MEDS: ENOXAPARIN 40 MG/0.4 ML INJ SUBCUT (20:37)
[2024-07-26] VITALS (13 sets, daily range): BP systolic 119–147; BP diastolic 66–92; PULSE 89–119; RESP 20–33; TEMP 35.9–37.2; O2SAT 87–93
[2024-07-26] MEDS: ALBUTEROL SULFATE 2.5 MG/3 ML VIAL.NEB NEB ×7 (00:37→20:28)
[2024-07-26] MEDS: GUAIF/DM 200-20 MG/20 ML 118 ML LIQUID 10 ML PO (03:57)
--- NOTE | 2024-07-26 04:13 | PC.NURSE ---
shift note: Pt stated sudden onset midsternal c.p when standing to do weight this a.m. pt denies pain radiating. charge nurse notified. EKG done. Guiaf/DM 10ml given for cough. Dr. Natalie Torres contacted via phone.
[2024-07-26] MEDS: LEVOTHYROXINE 100 MCG TABLET PO (06:28)
[2024-07-26 06:33] LABS: HCO3 VBG 47 mmol/L (21-28); PO2 VBG 45.9 mmHG (25-47); pH VBG 7.397 (7.32-7.43)
[2024-07-26 06:35] LABS: Basophils Absolute Auto 0.01 K/uL (0.00-0.30); Basophils Percent Auto 0.1 % (0.0-3.0); Eosinophils Absolute Auto 0.03 K/uL (0.00-0.50); Eosinophils Percent Auto 0.3 % (0.0-7.0); Hematocrit 34.8 % (33.0-51.0); Hemoglobin* 10.6 gm/dL (12.0-16.0); Immature Granulocytes Abs Auto 0.07 K/uL (0.00-0.30); Immature Granulocytes Pct Auto 0.7 %; Lymphocytes Percent Auto 14.2 % (20-44); Mean Corpuscular HGB Conc 31 gm/dL (32-36); Mean Corpuscular Hemoglobin 30 pg (26-34); Mean Corpuscular Volume 97 fL (80-100); Monocytes Percent Auto 8.3 % (0.0-11.0); Neutrophils Percent Auto 76.4 % (42.0-72.0); Platelet Count* 170 K/uL (140-440); RDW Coefficient of Variation % 14.3 % (11.5-15.5); Red Blood Count 3.59 m/uL (4.00-5.20); White Blood Count* 10.64 K/uL (4.50-11.00)
[2024-07-26 06:36] LABS: PCO2 VBG 76 mmHG (40-50)
[2024-07-26 06:50] LABS: Slide Review Reflex No
--- NOTE | 2024-07-26 06:56 | PC.NURSE ---
shift note; pt on bipap majority of night. low VT. prn neb given this a.m for chest tightness. pt states tightness resolved. pt has audible wheezing. rn call center returned call regarding previous note. No further order for episode of chest pain @ 0320 this a.m.
[2024-07-26 07:28] LABS: Chloride* 87 mmol/L (96-114); Potassium* 3.4 mmol/L (3.6-5.1); Sodium* 137 mmol/L (135-149)
[2024-07-26 07:30] LABS: Blood Urea Nitrogen* 30 mg/dL (5-24); Creatinine* 0.7 mg/dL (0.5-1.5); Est. Creatinine Clearance* 174.57; Estimated Glomerular Filt Rate 107 ml/min
[2024-07-26 07:31] LABS: Calcium* 8.8 mg/dL (8.4-10.6); Glucose* 141 mg/dL (60-115)
[2024-07-26 07:44] LABS: Anion Gap 7 mEq/L (7-15); Carbon Dioxide* 43 mmol/L (20-32)
[2024-07-26] MEDS: FUROSEMIDE 10 MG/ML inj 40 MG IVP ×2 (08:14→17:25)
[2024-07-26] MEDS: predniSONE 20 MG TABLET 40 MG PO (08:14)
--- NOTE | 2024-07-26 09:44 | PM.IMPN1 ---
Progress Note: A&P Assessment and plan (1) Acute on chronic respiratory failure with hypoxia and hypercapnia: Problem details: -chronic, worsened by new RSV infection -on admission: steroids, scheduled and prn bronchodilator therapy, increased diuresis, oxygen support -07/24: worsened hypercapnia + acidosis. no PE on Chest CT (possibly multifocal PNA), moved to CCU status and BIPAP initiated, also started Azithro/Ceftriaxone -07/26: improving, moved back to floor care -RT following throughout stay -patient indicates desire for intubation and ventilation if her condition worsens to try to get through this acute illness. She states unequivocally that she does not want to be kept alive in a persistent vegetative state should such a condition evolved. Status: Acute (2) Multifocal pneumonia: Problem details: - noted on chest CT obtained 07/24 - Azithromycin/Ceftriaxone (07/24) - WBC has been 10-13 during stay, likely has demargination from steroids, also noted to have PMN predominance - afebrile, procalcitonin normal on 07/26 - repeat CXR 07/27 to evaluate need for outpatient abx upon d/c Status: Suspected (3) Hypercarbia: Problem details: -acute on chronic -symptom management as specified above Status: Acute (4) RODRICK (obstructive sleep apnea): Problem details: -prior to admission, was not using home CPAP 2/2 feeling dyspneic in the morning -had previously stated that she was not using this because she was being worked up for vocal cord dysfunction ([facility] ENT PA note reviewed; no mention of holding CPAP, treating with nasal steroids and Pepcid at HS) -educated by RT and care team regarding importance of compliance Status: Chronic (5) Blood glucose elevated: Problem details: - 07/24: fasting glucose of 187, A1C 6.2 - on steroids, covering with SSI -outpatient f/u for pre-diabetes Status: Acute (6) Volume overload: Problem details: - diuresis (receiving Furosemide 40mg IV BID, home dose is 20mg po BID) - 07/26: weight stable, appears to be close to euvolemia, will transition to 40mg po BID - TTE obtained 07/24, c/w HFpEF, results below: Final Impressions: 1. Technically limited exam. 2. Normal LV function with EF of 64%. 3. Right ventricular cavity size is moderately enlarged, global systolic RV function is normal. 4. Echo contrast was administered to enhance visualization of all left ventricular segments. 5. The mitral valve is not well visualized, no mitral regurgitation. 6. The aortic valve is not well visualized, no stenosis and no regurgitation. Status: Acute (7) Chest pain: Problem details: - 07/24 check trop, EKG, since also more hypoxic, check chest CT for PE and ECHO (last ECHO in 2022) - 07/25 trop pending, EKG okay. Suspect anxiety, alprazolam is on hold due to resp failure - 07/26: patient endorses improvement, feels that anxiety is likely source of symptoms Status: Acute (8) RSV infection: Problem details: - symptom management as specified above Status: Acute (9) Anxiety and depression: Problem details: -longstanding, continue home meds (holding daily Xanax since 07/24) Status: Chronic (10) Asthma: Problem details: -PFTs done in November 2022: FEV1 0.74, 33% predicted, FEV1/FEV% 69, consistent with severe obstruction -outpatient management Ngoc Zaidi MD - pulm medicine -plan as above Status: Chronic (11) Hydrocephalus: Problem details: -apparently congenital and associated with a developmental learning disorder - will avoid doxycycline Status: Chronic (12) Pseudoseizures: Problem details: -has seen Neurology -apparently more common when stressed -continue home Keppra dosing Status: Chronic (13) Hypothyroidism: Problem details: -continue levothyroxine Status: Chronic Plan - per above - father updated by phone, questions answered - >1 hr spent on chart review, updates to patient and father, multidisciplinary team discussion, plan of care during stay and upon d/c Subjective Date Seen: 07/26/24 Interval history: Paloma was admitted to the hospital for acute on chronic hypoxic hypercarbic respiratory failure in the setting of untreated RODRICK and new RSV infection. Notable findings since stay: - requiring BIPAP at night and intermittently during the day. On 2L NC when not on BIPAP - CO2 peaked at 85, currently 76 - intermittent chest pain; reassuring EKG, negative troponin. Endorses history of anxiety-mediated chest pain - CTA 07/24: no PE, + bilateral patchy areas of consolidation, possibly c/w multifocal PNA. Started on Ceftriaxone and Azithromycin 07/24, tolerating well - appeared fluid overloaded on admission: on IV Furosemide (40mg BID), at home takes po 20mg BID, weight stable at 111 kg - working with therapies Paloma is improving a little each day. Excited about likely going home this week. Lives at [facility]. PCP is Dr. Lamb. Exam Narrative: Exam Narrative: GEN: Alert and oriented, sitting in bedside chair and answering questions appropriately HEENT: EOMIs bilaterally, no scleral icterus CV: RRR R: Expiratory wheezing throughout bilateral lung crawford Skin: No concerning skin lesions or rashes on exposed skin Neuro: No focal deficits Psych: Appropriate, no agitation Const: Vital Signs, click to edit/add: Vital Signs - 24 hr 07/25/24 10:00 07/25/24 11:45 07/25/24 12:00 Temperature 97.8 F Pulse Rate 111 H Pulse Rate [Right Radial] 112 H 117 H Respiratory Rate 33 H 28 H Blood Pressure [Ri ght Arm] 120/79 120/71 Pulse Oximetry 88 88 Oxygen Delivery Me thod BiPAP Nasal Cannula Oxygen Flow Rate 2 Fraction of Inspir ed Oxygen 30 07/25/24 12:30 07/25/24 12:46 07/25/24 14:00 Temperature Pulse Rate Pulse Rate [Right Radial] 117 H 113 H Respiratory Rate 28 H 18 Blood Pressure [Ri ght Arm] 104/68 Pulse Oximetry 88 Oxygen Delivery Me thod BiPAP Oxygen Flow Rate Fraction of Inspir ed Oxygen 30 07/25/24 15:00 07/25/24 16:00 07/25/24 16:30 Temperature 98.1 F Pulse Rate 111 H Pulse Rate [Right Radial] 104 H 104 H Respiratory Rate 22 22 Blood Pressure [Ri ght Arm] 141/87 H Pulse Oximetry 88 Oxygen Delivery Me thod BiPAP Oxygen Flow Rate Fraction of Inspir ed Oxygen 30 07/25/24 18:46 07/25/24 19:00 07/25/24 20:00 Temperature 96.9 F L Pulse Rate 111 H Pulse Rate [Right Radial] 113 H 105 H Respiratory Rate 22 22 Blood Pressure [Ri ght Arm] 128/78 115/75 Pulse Oximetry 91 89 Oxygen Delivery Me thod BiPAP Room Air Oxygen Flow Rate Fraction of Inspir ed Oxygen 07/25/24 20:00 07/25/24 22:40 07/25/24 23:00 Temperature 96.7 F L Pulse Rate 97 Pulse Rate [Right Radial] 105 H Respiratory Rate 22 23 Blood Pressure [Ri ght Arm] 138/92 H Pulse Oximetry 92 Oxygen Delivery Me thod BiPAP Oxygen Flow Rate Fraction of Inspir ed Oxygen 30 07/26/24 00:00 07/26/24 02:26 07/26/24 03:00 Temperature 96.7 F L 97 F L Pulse Rate 100 Pulse Rate [Right Radial] 108 H 99 Respiratory Rate 26 H 21 Blood Pressure [Ri ght Arm] 119/73 132/92 H Pulse Oximetry 91 87 L Oxygen Delivery Me thod BiPAP BiPAP Oxygen Flow Rate Fraction of Inspir ed Oxygen 30 30 07/26/24 04:00 07/26/24 08:00 07/26/24 08:00 Temperature 98.7 F 98.8 F Pulse Rate Pulse Rate [Right Radial] 101 H 108 H 108 H Respiratory Rate 20 33 H 33 H Blood Pressure [Ri ght Arm] 147/66 H 120/78 Pulse Oximetry 93 88 Oxygen Delivery Me thod Room Air Nasal Cannula Oxygen Flow Rate 2 Fraction of Inspir ed Oxygen Labs Labs: Laboratory Results - last 24 hr 07/25/24 07/25/24 07/26/24 12:06 15:15 06:05 WBC 10.64 RBC 3.59 L Hgb 10.6 L Hct 34.8 MCV 97 MCH 30 MCHC 31 L RDW Coeff of Tomy 14.3 Plt Count 170 Neut % (Auto) 76.4 H Lymph % (Auto) 14.2 L [place] % (Auto) 8.3 Eos % (Auto) 0.3 Baso % (Auto) 0.1 Neut # (Auto) 8.10 H Lymph # (Auto) 1.50 [place] # (Auto) 0.90 Eos # (Auto) 0.03 Baso # (Auto) 0.01 Abs Immat Gran (auto) 0.07 Imm/Tot Granulo (auto) 0.7 VBG pH 7.374 7.397 VBG pCO2 75 H* 76 H* VBG pO2 55.7 H 45.9 VBG HCO3 44 H 47 H Sodium 137 Potassium 3.4 L Chloride 87 L Carbon Dioxide 43 H* Anion Gap 7 BUN 30 H Creatinine 0.7 Estimated Creat Clear 174.57 Estimated GFR 107 Glucose 141 H Calcium 8.8 Troponin I < 0.01 L
[2024-07-26] MEDS: BENZONATATE 100 MG CAPSULE 200 MG PO ×3 (10:03→20:29)
[2024-07-26] MEDS: levETIRAcetam 500 MG TABLET 750 MG PO ×2 (10:03→20:31)
[2024-07-26] MEDS: FAMOTIDINE 20 MG TABLET PO ×2 (10:03→20:30)
[2024-07-26] MEDS: OMEPRAZOLE 20 MG CAPSULE DR 40 MG PO (10:03)
[2024-07-26] MEDS: PARoxetine 20 MG TABLET 40 MG PO (10:03)
[2024-07-26] MEDS: FLUTICASONE PROPIONATE NASAL 2 SPRAY NOSTRIL-B (10:04)
[2024-07-26] MEDS: SODIUM CHLORIDE 0.9 % (FLUSH) 10 ML SYRINGE 5 ML IVF ×2 (10:04→20:31)
[2024-07-26] MEDS: POTASSIUM CHLORIDE 10 MEQ CAPSULE ER 20 MEQ PO (10:04)
[2024-07-26 10:51] LABS: Procalcitonin* 0.12 ng/mL (<0.50)
[2024-07-26] MEDS: AZITHROMYCIN 250 MG TABLET 500 MG PO (14:20)
[2024-07-26] MEDS: cefTRIAXone 1 GM in 0.9 % SODIUM CHLORIDE Mini-bag 100 ML IVPB (14:30)
[2024-07-26] MEDS: INSULIN ASPART 100 UNIT/ML SUBCUT ×3 (15:36→21:22)
--- NOTE | 2024-07-26 19:02 | PC.NURSE ---
Nursing Care Hours: [id number] Pt this shift calm and cooperative, alert and oriented. Did have an episode of disorientation after a longer nap without bipap. VSS at this time, reported to hospitalist Barry. Bipap remained on during times of rest. Frequently incontinent of urine after Lasix administration. External cath placed for evening. Urine pale yellow almost clear. No skin issues noted. Attempted to walk to bathroom in morning but pt desat to 79%, becomes very wheezy and SOB, and c/o chest pain when getting back to recliner. Document Management Consultant recommends BSC to reserve energy and O2. ABX infused without issue. Remains sinus tach. BM x2. Encouraged to eat small meals to avoid aspiration.
[2024-07-26] MEDS: ENOXAPARIN 40 MG/0.4 ML INJ SUBCUT (20:30)
[2024-07-26] MEDS: MIRTAZAPINE 15 MG TABLET PO (20:30)
[2024-07-26] MEDS: MONTELUKAST 10 MG TABLET PO (20:33)
[2024-07-26] MEDS: IBUPROFEN 200 MG TABLET 400 MG PO (21:28)
[2024-07-27] MEDS: ALBUTEROL SULFATE 2.5 MG/3 ML VIAL.NEB NEB ×5 (00:03→12:04)
[2024-07-27 03:13] VITALS: BP 129/76; PULSE 93; RESP 22; TEMP 36.8; O2SAT 92
--- NOTE | 2024-07-27 06:02 | PC.NURSE ---
End of shift note [id number]: Pt A&Ox4 and able to make needs known this shift. She has been afebrile and wears BiPap at HS & PRN. She is otherwise on oxygen via NC at 2 LPM during?awake hours. External catheter in place due to pt?s urinary incontinence. PRN Ibuprofen given last evening for c/o L hand arthritis pain with no further complaints noted. Tele in place with NSR noted. Blood glucose 162 at HS. Scheduled and PRN nebs given throughout the shift. Pt able to transfer to [facility] with SBA using walker though has been incontinent of bladder. Pt tolerating regular diet. Bed alarm on and call light within reach.??
[2024-07-27] MEDS: LEVOTHYROXINE 100 MCG TABLET PO (06:16)
[2024-07-27 06:33] LABS: HCO3 VBG 49 mmol/L (21-28); PO2 VBG 57.8 mmHG (25-47); pH VBG 7.435 (7.32-7.43)
[2024-07-27 06:35] LABS: PCO2 VBG 74 mmHG (40-50)
[2024-07-27 06:38] LABS: Basophils Percent Auto 0.2 % (0.0-3.0); Eosinophils Percent Auto 0.8 % (0.0-7.0); Hematocrit 34.6 % (33.0-51.0); Hemoglobin* 10.7 gm/dL (12.0-16.0); Immature Granulocytes Pct Auto 1.5 %; Lymphocytes Percent Auto 16.8 % (20-44); Mean Corpuscular HGB Conc 31 gm/dL (32-36); Mean Corpuscular Hemoglobin 30 pg (26-34); Mean Corpuscular Volume 96 fL (80-100); Monocytes Percent Auto 7.3 % (0.0-11.0); Neutrophils Percent Auto 73.4 % (42.0-72.0); Platelet Count* 184 K/uL (140-440); RDW Coefficient of Variation % 14.1 % (11.5-15.5); Red Blood Count 3.62 m/uL (4.00-5.20); White Blood Count* 12.71 K/uL (4.50-11.00)
[2024-07-27 06:44] LABS: Slide Review Reflex No
[2024-07-27 06:57] LABS: Chloride* 85 mmol/L (96-114); Potassium* 3.1 mmol/L (3.6-5.1); Sodium* 137 mmol/L (135-149)
[2024-07-27 06:59] VITALS: PULSE 103
[2024-07-27 07:00] LABS: Blood Urea Nitrogen* 30 mg/dL (5-24); Creatinine* 0.6 mg/dL (0.5-1.5); Est. Creatinine Clearance* 201.61; Estimated Glomerular Filt Rate 111 ml/min
[2024-07-27 07:01] LABS: Calcium* 9.1 mg/dL (8.4-10.6); Glucose* 134 mg/dL (60-115)
[2024-07-27 07:13] LABS: Procalcitonin* 0.07 ng/mL (<0.50)
[2024-07-27 07:24] VITALS: BP 119/78; PULSE 94; RESP 24; TEMP 37; O2SAT 95
[2024-07-27 07:35] VITALS: PULSE 94; RESP 24
[2024-07-27 07:44] LABS: Anion Gap 8 mEq/L (7-15); Carbon Dioxide* 44 mmol/L (20-32)
[2024-07-27] MEDS: FUROSEMIDE 10 MG/ML inj 40 MG IVP (09:18)
[2024-07-27] MEDS: BENZONATATE 100 MG CAPSULE 200 MG PO ×2 (09:18→13:57)
[2024-07-27] MEDS: POTASSIUM CHLORIDE 10 MEQ CAPSULE ER 20 MEQ PO (09:18)
[2024-07-27] MEDS: levETIRAcetam 500 MG TABLET 750 MG PO (09:19)
[2024-07-27] MEDS: PARoxetine 20 MG TABLET 40 MG PO (09:19)
[2024-07-27] MEDS: predniSONE 20 MG TABLET 40 MG PO (09:19)
[2024-07-27] MEDS: OMEPRAZOLE 20 MG CAPSULE DR 40 MG PO (09:19)
[2024-07-27] MEDS: FAMOTIDINE 20 MG TABLET PO (09:19)
[2024-07-27] MEDS: POTASSIUM BICARB 25 MEQ EFFERVESCENT TAB 50 MEQ PO (09:19)
[2024-07-27] MEDS: FLUTICASONE PROPIONATE NASAL 2 SPRAY NOSTRIL-B (09:20)
[2024-07-27] MEDS: SODIUM CHLORIDE 0.9 % (FLUSH) 10 ML SYRINGE 5 ML IVF (09:28)
--- NOTE | 2024-07-27 10:28 | NUTR.NU ---
RDN with MD consult for weight gain. Patient admitted for RSV+ and pneumonia. Medical history significant for RODRICK (obstructive sleep apnea), ADHD, Hyperlipidemia, Anxiety and depression. Patient currently resides in assisted living. Current weight 242lb 14.4oz; height 4ft 9in; BMI 52.6kg/m2. Per weight history in EMR, many weights are stated. Unsure if weight gain is true weight gain at this time. Patient unsure if she has gained weight recently. RDN offered diet education related to weight gain and obesity, however patient declined at this time. She reports she has meals provided for her where she lives. She reports a new diagnosis of prediabetes, per MD outpatient follow-up for this to be done after discharge. No nutrition interventions at this time. RDN will continue to monitor and follow-up prn.
--- NOTE | 2024-07-27 11:00 | PM.DS1 ---
DS: Providers Provider Date Seen: 07/27/24 Date of admission: 07/23/24 09:02 Primary care physician: Geronimo Lamb MD Admitting Clinician: Maxx Mendieta MD Consults: PT, OT, SW, RT, Nutrition Attending Physician on discharge: Eleanor Presley MD Date of Discharge: 07/27/24 DS: Diagnosis Discharge Diagnosis (1) Acute on chronic respiratory failure with hypoxia and hypercapnia: Status: Acute Problem details: - chronic, worsened by new RSV infection - on admission: steroids, scheduled and prn bronchodilator therapy, increased diuresis, oxygen support - 07/24: worsened hypercapnia + acidosis. no PE on Chest CT (possibly multifocal PNA), moved to CCU status and BIPAP initiated, also started Azithro/Ceftriaxone - 07/26: improving, moved back to floor care - 07/27: back to baseline, requesting d/c home - RT followed throughout stay - completed course of Prednisone and antibiotics during stay (2) Multifocal pneumonia: Status: Suspected Problem details: - noted on chest CT obtained 07/24 - Azithromycin/Ceftriaxone (07/24-07/27) - WBC 10-13 during stay, likely demargination from steroids - afebrile, procalcitonin normal on 07/26 and 07/27 - repeat CXR 07/27 exhibited improvement (3) Hypercarbia: Status: Acute Problem details: -acute on chronic -symptom management as specified above, RT followed during stay -reviewed importance of CPAP adherence (4) RODRICK (obstructive sleep apnea): Status: Chronic Problem details: -prior to admission, was not using home CPAP 2/2 feeling dyspneic in the morning -had previously stated that she was not using this because she was being worked up for vocal cord dysfunction ([facility] ENT PA note reviewed; no mention of holding CPAP, treating with nasal steroids and Pepcid at HS) -educated by RT and care team regarding importance of compliance (5) Blood glucose elevated: Status: Acute Problem details: - 07/24: fasting glucose of 187, A1C 6.2 - on steroids, covering with SSI - outpatient f/u for pre-diabetes (6) Volume overload: Status: Acute Problem details: - diuresis (receiving Furosemide 40mg IV BID, home dose is 20mg po BID) - 07/26: weight stable, appears to be close to euvolemia, will transition to 40mg po BID - 07/27: stable, home on previous dosing of Furosemide with close PCP f/u - TTE obtained 07/24, c/w HFpEF, results below: Final Impressions: 1. Technically limited exam. 2. Normal LV function with EF of 64%. 3. Right ventricular cavity size is moderately enlarged, global systolic RV function is normal. 4. Echo contrast was administered to enhance visualization of all left ventricular segments. 5. The mitral valve is not well visualized, no mitral regurgitation. 6. The aortic valve is not well visualized, no stenosis and no regurgitation. (7) Chest pain: Status: Acute Problem details: - 07/24 check trop, EKG, since also more hypoxic, check chest CT for PE and ECHO (last ECHO in 2022) - 07/25 trop pending, EKG okay. Suspect anxiety, alprazolam is on hold due to resp failure - 07/26: patient endorses improvement, feels that anxiety is likely source of symptoms (8) RSV infection: Status: Acute Problem details: - symptom management as specified above (9) Anxiety and depression: Status: Chronic Problem details: -longstanding, continue home meds (holding daily Xanax since 07/24) (10) Asthma: Status: Chronic Problem details: -PFTs done in November 2022: FEV1 0.74, 33% predicted, FEV1/FEV% 69, consistent with severe obstruction -outpatient management Ngoc Zaidi MD - pulm medicine -plan as above (11) Hydrocephalus: Status: Chronic Problem details: -apparently congenital and associated with a developmental learning disorder (12) Pseudoseizures: Status: Chronic Problem details: -has seen Neurology -apparently more common when stressed -continue home Keppra dosing (13) Hypothyroidism: Status: Chronic Problem details: -continue levothyroxine DS: Summary Hospital Course Hospital Course: Paloma was admitted to the hospital on 07/23 for acute on chronic hypoxic hypercarbic respiratory failure in the setting of untreated RODRICK and new RSV infection. During stay: - required BIPAP at night and intermittently during the day. On 2L NC when not on BIPAP (home O2 at 2L as an outpatient) - CO2 peaked at 85, then improved - intermittent chest pain; reassuring EKG, negative troponin. Endorses history of anxiety-mediated chest pain. No CP in 48 hours prior to discharge - CTA 07/24: no PE, + bilateral patchy areas of consolidation, possibly c/w multifocal PNA. Treated with Ceftriaxone and Azithromycin 07/24-07/27, negative Procalcitonin 07/26 and 07/27 - mild wheezing during stay, treated with 5 day course of Prednisone - appeared fluid overloaded on admission: on IV Furosemide (40mg BID), at home takes po 20mg BID, weight stable at 111 kg, 110kg on discharge. Transitioned to home dose of 20mg BID upon d/c - worked with therapies during stay, no additional needs identified. Back to [facility] with resumption of previous home health care Terrnilesh was back to baseline regarding functional status and breathing on 07/27, requesting discharge home with close PCP f/u. Status at Discharge Overall status at discharge: patient is progressing back to baseline Time Spent with Patient Time attestation: Total time spent providing and/or coordinating discharge services: Time spent: Greater than 30 minutes Specific discharge activities: Multidisciplinary team discussion/collaboration, med rec Exam Narrative: Exam Narrative: GEN: Alert and oriented, sitting comfortably in bedside chair HEENT: EOMIs bilaterally, no scleral icterus CV: RRR (HR 100s), no concerning murmurs, rubs, or gallops R: Mild bibasilar wheezing, air movement adequate Skin: No concerning skin lesions or rashes on exposed skin Neuro: No focal deficits or resting tremor Psych: Appropriate Const: Vital Signs, click to edit/add: Vital Signs - 24 hr 07/26/24 12:39 07/26/24 14:13 07/26/24 15:00 Temperature 98.9 F Pulse Rate 106 H Pulse Rate [Right Radial] 115 H Respiratory Rate 28 H Blood Pressure [Ri ght Arm] 139/86 Pulse Oximetry Oxygen Delivery Me thod Oxygen Flow Rate Fraction of Inspir ed Oxygen 30 07/26/24 19:41 07/26/24 22:33 07/26/24 23:00 Temperature 97.4 F L Pulse Rate 91 Pulse Rate [Right Radial] 102 H 102 H Respiratory Rate 23 23 Blood Pressure [Ri ght Arm] 128/80 Pulse Oximetry 92 Oxygen Delivery Me thod BiPAP Oxygen Flow Rate Fraction of Inspir ed Oxygen 30 07/26/24 23:59 07/27/24 03:13 07/27/24 06:59 Temperature 97.4 F L 98.3 F Pulse Rate 103 H Pulse Rate [Right Radial] 89 93 Respiratory Rate 20 22 Blood Pressure [Ri ght Arm] 122/86 129/76 Pulse Oximetry 92 92 Oxygen Delivery Me thod BiPAP Nasal Cannula Oxygen Flow Rate 2 Fraction of Inspir ed Oxygen 30 07/27/24 07:24 07/27/24 07:35 Temperature 98.6 F Pulse Rate Pulse Rate [Right Radial] 94 94 Respiratory Rate 24 24 Blood Pressure [Ri t Arm] 119/78 Pulse Oximetry 95 Oxygen Delivery Me thod Nasal Cannula Oxygen Flow Rate 2 Fraction of Inspir ed Oxygen DS: Data Data Completed and Pending Completed studies during hospitalization: Procedures Introduction of Other Gas into Respiratory Tract, Via Natural or Artificial Opening (01/30/23) Labs on day of discharge: Labs from last 24 hours 07/27/24 07/26/24 06:14 06:05 WBC 12.71 H RBC 3.62 L Hgb 10.7 L Hct 34.6 MCV 96 MCH 30 MCHC 31 L RDW Coeff of Tomy 14.1 Plt Count 184 Neut % (Auto) 73.4 H Lymph % (Auto) 16.8 L [place] % (Auto) 7.3 Eos % (Auto) 0.8 Baso % (Auto) 0.2 Neut # (Auto) 9.30 H Lymph # (Auto) 2.10 [place] # (Auto) 0.90 Eos # (Auto) 0.10 Baso # (Auto) 0.00 Abs Immat Gran (auto) 0.20 Imm/Tot Granulo (auto) 1.5 VBG pH 7.435 H VBG pCO2 74 H* VBG pO2 57.8 H VBG HCO3 49 H Sodium 137 Potassium 3.1 L Chloride 85 L Carbon Dioxide 44 H* Anion Gap 8 BUN 30 H Creatinine 0.6 Estimated Creat Clear 201.61 Estimated GFR 111 Glucose 134 H Calcium 9.1 Procalcitonin 0.07 0.12 Discharge Plan Discharge Disposition: Home, Self-Care Date of Admission: 07/23/24 09:02 Attending Provider on Discharge: Eleanor Presley Primary Care Provider: Geronimo Lamb Condition: Improved Anticipated Discharge Date/Time: 07/27/24 10:20 Discharge Medications: Continued levetiracetam [Keppra] 750 mg tablet 750 mg PO BID potassium chloride 10 mEq tablet extended release 20 meq PO DAILY Rx Instructions: take 2 tablets daily levothyroxine 100 mcg tablet 100 mcg PO DAILY diphenhydramine HCl [Banophen] 25 mg capsule 25 mg PO DAILY PRN Rx Instructions: allergies ibuprofen 200 mg capsule 200 - 400 mg PO Q4-6H PRN magnesium hydroxide [Milk of Magnesia] 400 mg/5 mL suspension 15 - 30 ml PO DAILY PRN terbinafine HCl 1 % cream 1 applic topical BID alum-mag hydroxide-simeth [Maalox Advanced] 200-200-20 mg/5 mL suspension 5 - 10 ml PO 5XD PRN Rx Instructions: administer between meals and at bedtime loperamide [Anti-Diarrheal (loperamide)] 2 mg tablet 1 mg PO Q6H PRN dextromethorphan HBr 10 mg/5 mL syrup 5 - 10 mg PO Q4-6H PRN montelukast 10 mg tablet 10 mg PO HS mirabegron [Myrbetriq] 50 mg tablet extended release 24 hr 50 mg PO DAILY Patient Comments: albuterol sulfate 90 mcg/actuation HFA aerosol inhaler 1 - 2 puff INHALATION Q4H PRN cholecalciferol (vitamin D3) 50 mcg (2,000 unit) capsule 50 mcg PO DAILY paroxetine HCl 40 mg tablet 40 mg PO DAILY Patient Comments: budesonide-formoterol [Symbicort] 160-4.5 mcg/actuation HFA aerosol inhaler 2 puff INHALATION BID Qty: 1 0RF furosemide 20 mg tablet 20 mg PO BID@08,12 famotidine 20 mg tablet 20 mg PO BID fluticasone propionate 50 mcg/actuation spray,suspension 2 spray INTRANASAL DAILY Patient Comments: [NO ORIGINAL SIG] ipratropium-albuterol 0.5 mg-3 mg(2.5 mg base)/3 mL solution for nebulization 1 ml INHALATION TID Patient Comments: [NO ORIGINAL SIG] mirtazapine 15 mg tablet 15 mg PO HS omeprazole 20 mg capsule,delayed release(DR/EC) 40 mg PO DAILY Discontinued alprazolam 0.5 mg tablet 0.5 mg PO DAILY Patient Comments: [NO ORIGINAL SIG] Discharge Orders: Discharge Order (Routine); Ordered 07/27/24 Ordered By: Eleanor Presley Patient Education: Chronic Respiratory Failure (DC), Acute Respiratory Failure (GEN) Additional Instructions: We are stopping your Xanax, no other changes to home medications. You must wear your CPAP at night, EVERY night. See Drs. Lamb and Ashly as scheduled. Resume home health care with [facility] as previous. Activity Level: No strenuous activity Discharge Diet: Heart Healthy (2 gm sodium, low fat) Diet Detail: low sodium Follow Up Appointments: Geronimo Lamb MD [Primary Care Provider] - 08/04/24 2:30 pm ([facility] for follow-up.) Paolo Limon MD [Referring] - 10/27/24 1:30 pm ([facility] for RODRICK follow-up.) Forms: [employer] [facility] Info Instructions
[2024-07-27 12:02] VITALS: BP 124/83; PULSE 100; RESP 22; TEMP 36.7; O2SAT 94
[2024-07-27] MEDS: FUROSEMIDE 40 MG TABLET PO (13:58)
[2024-07-27] MEDS: AZITHROMYCIN 250 MG TABLET 500 MG PO (13:58)
[2024-07-27] MEDS: cefTRIAXone 1 GM in 0.9 % SODIUM CHLORIDE Mini-bag 100 ML IVPB (13:59)
--- NOTE | 2024-07-27 17:00 | PC.NURSE ---
discharge. pt has monika pleasant she is alert x4. no pain. she wason 2L nc. she is up with 1 assist. with 02. PT and OT worked with her. Tele, NSR Blood glucose 122, 157. Scheduled and PRN nebs given throughout the shift. she is eating, drinking and voiding with no problems. . Pt tolerating regular diet. Bed alarm on and call light within reach.??discharge was done
--- NOTE | 2024-07-27 18:52 | PC.NURSE ---
Call from [facility] this afternoon, concerned about patient sats dropping when up ambulating, but then recovers when resting. Instructed staff that securities underwriter cannot advise on situation as I can not assess patient and that they should follow their protocol and/or bring patient to ER for further evaluation.
== END 2024-07-27 15:03 | disposition home or self-care (01) | DRG 193 ==
LOC: ED 08:23 → MEDSURG 08:38
PROVIDERS: Family Medicine; Admitting Provider Internal Medicine; Emergency Provider Family Medicine; PCP Family Medicine; Visit Provider Internal Medicine
DX: J12.1 Respiratory syncytial virus pneumonia (principal); J96.21 Acute and chronic respiratory failure with hypoxia; J96.22 Acute and chronic respiratory failure with hypercapnia; J45.901 Unspecified asthma with (acute) exacerbation; G91.9 Hydrocephalus, unspecified; E03.9 Hypothyroidism, unspecified; R56.9 Unspecified convulsions; G47.33 Obstructive sleep apnea (adult) (pediatric); F90.9 Attention-deficit hyperactivity disorder, unspecified type; E05.90 Thyrotoxicosis, unspecified without thyrotoxic crisis or storm; E78.5 Hyperlipidemia, unspecified; F41.9 Anxiety disorder, unspecified; F32.A Depression, unspecified; J45.909 Unspecified asthma, uncomplicated; J44.89 Other specified chronic obstructive pulmonary disease; E87.70 Fluid overload, unspecified; R73.9 Hyperglycemia, unspecified; R07.89 Other chest pain; D64.9 Anemia, unspecified
CPT/HCPCS: 36415; 71045; 71275; 80048; 80053; 82803; 82962; 83036; 83605; 83735; 83880; 84100; 84145; 84484; 85025; 87081; 87631; 93005; 93306; 94640; 94660; 94761; 97110; 97116; 97162; 97166; 97530; 97535; 99284; 99285; 99291; A9270; J0696; J1650; J1940; J2919; J7030; J7050; J7512; Q9957; Q9967

== ENCOUNTER 2024-07-30 19:48 | Outpatient (CLI) | payer OTHER, SELFPAY | END 2024-07-30 19:49 | disposition home or self-care (01) | LOC: AMB 08-02 11:42 | PROVIDERS: PCP Family Medicine; Visit Provider Emergency Medicine | DX: R06.09 Other forms of dyspnea (principal) | CPT/HCPCS: A0425; A0427 ==

== ENCOUNTER 2024-07-30 20:13 | Emergency (ER) | payer OTHER, SELFPAY ==
[2024-07-30] VITALS (9 sets, daily range): BP systolic 125–138; BP diastolic 82–90; PULSE 93–97; RESP 16–26; TEMP 36.5; O2SAT 77–97; BMI 51.9
--- OUTSIDE RECORDS SUMMARY | 2024-07-30 20:16 | XMS_ITS | CCD ---
Author Organization Unknown Care Team Providers Care Manager Housekeeping Name Role Phone Boiler House Supervisor, [place] Primary Care Provider Unava ilable Unavailable Chronic Care Management Unavaila ble Summary Purpose [employer] Insurance Providers Payer name Policy type / Coverage type Covered republican ID Effective Begin Date Effective End Date [facility] Commercial Insurance [id number] Unkn own Family History Family History data not found Medication Administered No Medication Administered data Reason For Visit No Reason For Visit data
--- OUTSIDE RECORDS SUMMARY | 2024-07-30 20:16 | XMS_ITS | Clinical Summary ---
Author Organization [facility] Address [address] [place] [address] Care Team Providers Care Usability Engineer Name Role Phone Elsewhere, Pcp Primary Care Provider Unavailabl e Source Comments Patient records contain information from all sites at [facility]. For routine questions regarding patient records, call [phone] during business hours, M-F 8:00 AM - 5:00 PM Central Time. 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 Ear implant-Vega TOPR Plasti-pore MRI Safe Procedures Procedure Name Priority Date/Time Associated Diagnosis Comments THYROID-STIMULATING HORMONE-SENSITIVE (S-TSH) Routine 10/27/2018 3:42 PM CDT Hypothyroidism Primary BASIC METABOLIC PANEL, S/P Routine 03/11/2018 1:58 PM CDT Dizziness Diplopia LIPID PANEL, S Routine 06/10/2016 10:40 AM OPERATING TABLE ASSEMBLER from Last 3 Months or Most Recently Relevant to Health Maintenance Results * (ABNORMAL) S-TSH (Thyroid-Stimulating Hormone - Sensitive) (10/27/2018 3:42 PM CDT) TSH, Sensitive 10.7(H) 0.3 - 4.2 mIU/L 10/27/2018 5:20 PM CDT Comment: Biotin has been identified by the manager study as a potential interfering substance. Higher concentrations of biotin may be found in multivitamins, hair/nail supplements, and workout supplements. If the result does not match clinical observations, repeat testing after patient refrains from the use of supplements for at least 12 hours. Blood (Blood, Venous) 10/27/2018 3:42 PM CDT 10/27/2018 3:43 PM CDT us Deanne Tsang P.A.-C. LAB BLOOD ADD-ON Final Result [facility] [address] [place] [address], [facility] * Basic Metabolic Panel (03/11/2018 1:58 PM CDT) Potassium, S 4.0 3.6 - 5.2 mmol/L 03/11/2018 2:29 PM CDT [facility] Sodium, S 141 135 - 145 mmol/L 03/11/2018 2:29 PM CDT [facility] Chloride, S 101 98 - 107 mmol/L 03/11/2018 2:29 PM CDT [facility] Bicarbonate, S 27 22 - 29 mmol/L 03/11/2018 2:29 PM CDT [facility] Anion Gap 13 7 - 15 03/11/2018 2:29 PM CDT [facility] BUN (Blood Urea Nitrogen), S 12 6 - 21 mg/dL 03/11/2018 2:29 PM CDT [facility] Creatinine 0.62 0.59 - 1.04 mg/dL 03/11/2018 2:29 PM CDT [facility] eGFR-Non Black/ >90 >=60 mL/min/BSA 03/11/2018 2:29 PM CDT [facility] Comment: ----ADDITIONAL INFORMATION---- Estimated GFR calculated using the 2009 CKD_EPI creatinine equation. eGFR-Black/Afri can Indian >90 >=60 mL/min/BSA 03/11/2018 2:29 PM CDT [facility] Comment: ----ADDITIONAL INFORMATION---- Estimated GFR calculated using the 2009 CKD_EPI creatinine equation. Calcium, Total, S 9.4 8.6 - 10.0 mg/dL 03/11/2018 2:29 PM CDT [facility] Glucose, S 95 70 - 140 mg/dL 03/11/2018 2:29 PM CDT [facility] Blood (Blood, Venous) 03/11/2018 1:58 PM CDT 03/11/2018 1:58 PM CDT Deanne Tsang P.A.-C. LAB BLOOD ADD-ON Final Result Performing Organization Address City/State/[facility] Co de Phone Number [facility] [address] * (ABNORMAL) Lipid Panel (06/10/2016 10:40 AM OPERATING TABLE ASSEMBLER) [facility] Cholesterol, Total 275(H) <=199 MGDL POWERCHART Comment: [...] for FH and FDB is available through [facility] [employer]: FH/ADH Genetic Reflex Panel (test ADHP). Acquired (non-genetic) causes of markedly increased LDL cholesterol include cholestatic liver disease due to the presence of LpX. If a genetic form of hypercholesterolemia is suspected, family studies including biochemical testing for lipids (total cholesterol,triglycerides, LDL cholesterol and HDL cholesterol) are recommended. Please contact the laboratory at or the on-line test catalog at [facility] for information about how to order these tests or to speak with a genetic counselor. Further interpretation would require clinical information. Total Cholesterol/HDL Ratio 5 POWERCHART Blood 06/10/2016 10:4 0 AM OPERATING TABLE ASSEMBLER us Ana Chery M.D. LAB BLOOD ADD-ON Final Re sult POWERCHART from Last 3 Months or Most Recently Relevant to Health Maintenance Insurance [facility] Care Teams Usability Engineer Relationship Specialty Start Date End Date Elsewhere, Pcp PCP - General Internal Medicine 12/04/18
--- OUTSIDE RECORDS SUMMARY | 2024-07-30 20:16 | XMS_ITS | Clinical Summary ---
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 solifenacin (VESICARE) 10 mg tablet [id number] Son Jara MD PROCHLORPERAZINE MALEATE 5 MG TABS Take 1 Tablet (5 mg) by mouth every 8 hours if needed for Nausea/Vomitin g. prochlorperazine (COMPAZINE) 5 mg tablet [id number] Son Jara MD OMEPRAZOLE 20 MG CPDR Take 2 Capsules (40 mg) by mouth once daily before a meal. omeprazole (PriLOSEC) 20 mg Delayed-Release capsule [id number] Son Jara MD MONTELUKAST SODIUM 10 MG TABS Take 1 Tablet (10 mg) by mouth at bedtime. montelukast (SINGULAIR) 10 mg tablet [id number] Son Jara MD mirabegron EXTENDED-release (MYRBETRIQ) 50 mg tablet Take 1 Tablet (50 mg) by mouth once daily. mirabegron EXTENDED-release (MYRBETRIQ) 50 mg tablet Son Jara MD MECLIZINE HCL 25 MG TABS Take 0.5 Tablets (12.5 mg) by mouth 3 times daily if needed for Nausea/Vomitin g. meclizine (ANTIVERT) 25 mg tablet [id number] Son Jara MD LEVOTHYROXINE SODIUM 175 MCG TABS Take 1 Tablet (175 mcg) by mouth before breakfast. levothyroxine (SYNTHROID) 175 mcg tablet [id number] Son Jara MD FEXOFENADINE HCL 180 MG TABS Take 1 tablet by mouth once daily with a meal. fexofenadine (ROJAS) 180 mg tablet [id number] Son Jara MD DIPHENHYDRAMINE HCL 25 MG CAPS Take 1 capsule by mouth each time if needed. diphenhydrAMINE (BENADRYL) 25 mg capsule [id number] Son Jara MD VITAMIN D 50 MCG (2000 UT) TABS Take 2,000 units by mouth. cholecalciferol, Vitamin D3, 2,000 unit tablet [id number] Son Jara MD BUPROPION HCL ER (XL) 150 MG [id number]-CWQ null buPROPion (WELLBUTRIN XL) 150 mg Extended-Release tablet [id number] Son Jara MD IPRATROPIUM-ALBUTE ROL 0.5-2.5 (3) MG/3ML SOLN Inhale 3 mL via a nebulizer 2 times daily if needed for Shortness of Breath 1st choice or Wheezing 1st choice. albuterol-ipratrop ium (DUONEB) (2.5-0.5 mg) in 3 mL NEBULIZA [id number] Son Jara MD ALBUTEROL SULFATE HFA 108 (90 Base) MCG/ACT AERS Inhale 1-2 Puffs by mouth every 4 hours if needed for Shortness of Breath 1st choice. albuterol HFA (ProAir HFA) 90 mcg/actuation inhaler [id number] Son Jara MD ALBUTEROL SULFATE (2.5 MG/3ML) 0.083% NEBU Inhale 3 mL via a nebulizer every 6 hours if needed for Shortness Of Breath or Wheezing. albuterol (PROVENTIL) 0.083 % neb solution [id number] Son Jara MD SYMBICORT 160-4.5 MCG/ACT AERO null Symbicort 160-4. 5 mcg/actuation (160-4.5 mcg each actuation) [id number] Son Jara MD PAROXETINE HCL 40 MG TABS null PARoxetine (PAXI L) 40 mg tablet [id number] Son Jara MD Medications Administered No information available. Allergies, Adverse Reactions, Alerts Allergy Name Reaction Description Start Date Severity Statu s Provider SCOPOLAMINE Tremors Mild Active Son Jara MD OXYCODONE-ACETAMINOPHEN Confusion, Other - Describe In Comment Field Mild Active Sno Jara MD LATEX Rash Mild Active Son [...] Date ORDERS EEG Sleep Deprived (41min) 2 [id number] EEG EXTENDED 41-60mins (END) [id number] Documentation of current medicatio ns ORDERS Patient Instructions Vital Signs No information available. Immunizations No information available. Advance Directives No information available.
--- NOTE | 2024-07-30 20:57 | ED.SOB ---
HPI - SOB/Dyspnea General Time Seen by Provider: 20:57 <Carmen Miller MD - Last Filed: 08/01/24 01:14> Date Seen: 07/30/24 <Carmen Miller MD - Last Filed: 08/01/24 01:14> Chief Complaint: Shortness of Breath/Dyspnea <Carmen Miller MD - Last Filed: 08/01/24 01:14> Stated Complaint: RSV+, SOB <Carmen Miller MD - Last Filed: 08/01/24 01:14> Time Seen by Provider: 07/30/24 20:51 <Carmen Miller MD - Last Filed: 08/01/24 01:14> Source: patient and EMS <Carmen Miller MD - Last Filed: 08/01/24 01:14> Mode of arrival: EMS <Carmen Miller MD - Last Filed: 08/01/24 01:14> Limitations: no limitations <Carmen Miller MD - Last Filed: 08/01/24 01:14> History of Present Illness HPI Narrative: This 49-year-old female was brought in by EMS from home. She states she was in the hospital recently for 4 days, got out on Friday. She has oxygen at home, states she was not wearing it briefly when EMS came as she got up to go to the bathroom. She has been doing nebs at home but states she can not breathe to nursing staff on arrival. She told me that she has just been sleeping at home. She is still able to eat and drink. No nausea, no vomiting. She has not noted any fevers. This patient has underlying asthma, obstructive sleep apnea, history of respiratory failure with hypoxia and hypercapnia. She has also had multifocal pneumonia before. She was hospitalized 07/23-07/27/2024. She had acute on chronic respiratory failure with hypoxia and hypercapnia, RSV infection. She did have concern for multifocal pneumonia and had BiPAP initiated. She did have DuoNebs, Symbicort on discharge. She in the hospital did get steroids. She is not discharged on them from what I can see. She is not on any antibiotics at time of discharge. She also had Lasix, was noted to have some fluid overload. She does have oxygen at home, states she wears it at 2 L. <Carmen Miller MD - Last Filed: 08/01/24 01:14> Related Data Home Medications: Home Medications ?Medication ?Instructions ?Recorded ?Confirmed albuterol sulfate 90 mcg/actuation 1 - 2 puff inhalation Q4H PRN 11/30/21 07/23/24 aerosol inhaler mirabegron 50 mg tablet,extended 50 mg PO DAILY 11/30/21 07/23/24 release 24 hr (Myrbetriq) montelukast 10 mg tablet 10 mg PO HS 11/30/21 07/23/24 omeprazole 20 mg capsule,delayed 40 mg PO DAILY 02/26/22 07/23/24 release levetiracetam 750 mg tablet 750 mg PO BID 11/25/22 07/23/24 (Keppra) cholecalciferol (vitamin D3) 50 50 mcg PO DAILY 01/30/23 07/23/24 mcg (2,000 unit) capsule paroxetine HCl 40 mg tablet 40 mg PO DAILY 01/30/23 07/23/24 levothyroxine 100 mcg tablet 100 mcg PO DAILY 10/16/23 07/23/24 potassium chloride 10 mEq 20 meq PO DAILY 10/16/23 07/23/24 tablet,extended release aluminum-mag hydroxide-simethicone 5 - 10 ml PO 5XD PRN 03/20/24 07/23/24 200 mg-200 mg-20 mg/5 mL oral susp (Maalox Advanced) dextromethorphan HBr 10 mg/5 mL 5 - 10 mg PO Q4-6H PRN 03/20/24 07/23/24 oral syrup diphenhydramine HCl 25 mg capsule 25 mg PO DAILY PRN 03/20/24 07/23/24 (Banophen) ibuprofen 200 mg capsule 200 - 400 mg PO Q4-6H PRN 03/20/24 07/23/24 loperamide 2 mg tablet 1 mg PO Q6H PRN 03/20/24 07/23/24 (Anti-Diarrheal (loperamide)) magnesium hydroxide 400 mg/5 mL 15 - 30 ml PO DAILY PRN 03/20/24 07/23/24 oral suspension (Milk of Magnmary) terbinafine HCl 1 % topical cream 1 applic topical BID 03/20/24 07/23/24 famotidine 20 mg tablet 20 mg PO BID 07/23/24 07/23/24 fluticasone propionate 50 2 spray intranasal DAILY 07/23/24 07/23/24 mcg/actuation nasal spray,suspension furosemide 20 mg tablet 20 mg PO BID@08,12 07/23/24 07/23/24 ipratropium 0.5 mg-albuterol 3 mg 1 ml inhalation TID 07/23/24 07/23/24 (2.5 mg base)/3 mL nebulization soln mirtazapine 15 mg tablet 15 mg PO HS 07/23/24 07/23/24 Previous Rx's ?Medication ?Instructions ?Recorded budesonide-formoterol HFA 160 2 puff inhalation BID #1 g 02/02/23 mcg-4.5 mcg/actuation aerosol inhaler (Symbicort) <Carmen Miller MD - Last Filed: 08/01/24 01:14> Allergies/Adverse Reactions: Allergies Allergy/AdvReac Type Severity Reaction Status Date / Time azithromycin Allergy Intermediate Bloody Verified 07/10/24 23:20 Stools latex Allergy Intermediate Rash Verified 07/10/24 23:20 oxycodone Allergy Intermediate Agitated Verified 07/10/24 23:20 scopolamine Allergy Intermediate Tremors Verified 07/10/24 23:20 basil Allergy Rash Verified 07/10/24 23:20 <Carmen Miller MD - Last Filed: 08/01/24 01:14> Review of Systems Status of ROS: Reports: 6 or more systems reviewed and unremarkable except as noted in History and below <Carmen Miller MD - Last Filed: 08/01/24 01:14> [facility] Medical History: Medical History Hypothyroidism ?E03.9 - Hypothyroidism, unspecified (ICD-10) Acute and chronic respiratory failure with hypoxia ?J96.21 - Acute and chronic respiratory failure with hypoxia (ICD-10) 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 - Unspecified convulsions (ICD-10) RODRICK (obstructive sleep apnea) ?G47.33 - Obstructive sleep apnea (adult) (pediatric) (ICD-10) ADHD ?F90.9 - Attention-deficit hyperactivity disorder, unspecified type (ICD-10) Hyperthyroidism ?E05.90 - Thyrotoxicosis, unspecified without thyrotoxic crisis or storm (ICD-10) Hydrocephalus ?G91.9 - Hydrocephalus, unspecified (ICD-10) Hyperlipidemia ?E78.5 - Hyperlipidemia, unspecified (ICD-10) Anxiety and depression ?F41.9 - Anxiety disorder, unspecified (ICD-10) ?F32.A - Depression, unspecified (ICD-10) Asthma ?J45.909 - Unspecified asthma, uncomplicated (ICD-10) <Carmen Miller MD - Last Filed: 08/01/24 01:14> Surgical History: Surgical History History of ear surgery ?Z98.890 - Other specified postprocedural states (ICD-10) History of strabismus surgery ?Z98.890 - Other specified postprocedural states (ICD-10) <Carmen Miller MD - Last Filed: 08/01/24 01:14> Social History: Social History Narrative: on disability since 2009; lives alone with her cat. nonsmoker, no drugs, no significant tobacco history adopted, her two adopted aunts are her family contacts. What is your current living situation?: I presently have a place to live Problems where you live: no known problems Problems where you live details: none In the past 12 months, utilities in danger of being shut off: no In past 12 months, lack of transportation kept you from medical appts, meetings, work, or getting things needed for daily living: no In the past 12 mos, have been you worried that your food would run out before you had money to buy more?: never true In the past 12 mos, the food you bought just didn't last and you didn't have money to buy more?: never true Highest level of school completed/degree received: Associate degree: academic program Smoking Status: Never smoker Do you use any of these nicotine containing products: None Second hand tobacco smoke exposure: Yes How often do you have a drink containing alcohol: never How often do you have six or more drinks on one occasion: Never AUDIT-C Alcohol total score: 0 Non-prescribed substance use: denies use Caffeine: Yes How often does anyone, including family, friends and others, physically hurt you: never How often does anyone, including family, friends and others, insult or talk down to you: never How often does anyone, including family, friends and others, threaten you with harm: never How often does anyone, including family, friends and others, scream or curse at you: never service: No <Carmen Miller MD - Last Filed: 08/01/24 01:14> Exam Const: Vital Signs, click to edit/add: Vital Signs - 24 hr 07/30/24 20:15 07/30/24 20:25 07/30/24 20:33 Temperature 97.7 F Pulse Rate Pulse Rate [Right Pulse Oximeter] 97 Respiratory Rate 24 26 H Blood Pressure Blood Pressure [Ri ght Upper Arm] 137/90 H Pulse Oximetry 77 L 96 96 Oxygen Delivery Me thod Room Air Nasal Cannula Nasal Cannula Oxygen Flow Rate 3 2 07/30/24 22:32 07/30/24 23:00 07/30/24 23:02 Temperature Pulse Rate 93 96 96 Pulse Rate [Right Pulse Oximeter] Respiratory Rate 16 18 Blood Pressure 129/87 133/89 Blood Pressure [Ri ght Upper Arm] Pulse Oximetry 97 96 96 Oxygen Delivery Me thod Oxygen Flow Rate 07/30/24 23:03 07/30/24 23:03 07/30/24 23:04 Temperature Pulse Rate 96 Pulse Rate [Right Pulse Oximeter] Respiratory Rate 16 Blood Pressure 138/88 Blood Pressure [Ri ght Upper Arm] Pulse Oximetry 95 95 96 Oxygen Delivery Me thod Nasal Cannula Oxygen Flow Rate 2 07/30/24 23:19 Temperature Pulse Rate Pulse Rate [Right Pulse Oximeter] Respiratory Rate Blood Pressure 125/82 Blood Pressure [Ri ght Upper Arm] Pulse Oximetry Oxygen Delivery Me thod Oxygen Flow Rate This 49-year-old was resting comfortably on my arrival in the room. She awoke easily to my voice, was alert, interactive. Sclera clear, baseline dysconjugate gaze. Able to speak in complete sentences. O2 sats 97% with a good waveform with reportedly 2 L nasal cannula. Nursing staff notes that she was 76% on room air on arrival. Note this patient has been on recent chronic oxygen, was discharged from the hospital on 2 L nasal cannula. She has morbid obesity body habitus, neck is thick but no jugular venous distension. She is able to sit up, has some coarse lung sounds, some rhonchi, some intermittent end expiratory wheezing. She is not tachypneic. CV regular rate and rhythm, hear no murmur. Abdomen is soft but obese, nontender, do not feel any masses but body habitus precludes diligent examination. She has thicker lower extremities but do not appreciate pretibial edema. <Carmen Miller MD - Last Filed: 08/01/24 01:14> Vital Signs, click to edit/add: Vital Signs - 24 hr 07/30/24 20:15 07/30/24 20:25 07/30/24 20:33 Temperature 97.7 F Pulse Rate Pulse Rate [Right Pulse Oximeter] 97 Respiratory Rate 24 26 H Blood Pressure Blood Pressure [Ri ght Upper Arm] 137/90 H Pulse Oximetry 77 L 96 96 Oxygen Delivery Me thod Room Air Nasal Cannula Nasal Cannula Oxygen Flow Rate 3 2 07/30/24 22:32 07/30/24 23:00 07/30/24 23:02 Temperature Pulse Rate 93 96 96 Pulse Rate [Right Pulse Oximeter] Respiratory Rate 16 18 Blood Pressure 129/87 133/89 Blood Pressure [Ri ght Upper Arm] Pulse Oximetry 97 96 96 Oxygen Delivery Me thod Oxygen Flow Rate 07/30/24 23:03 07/30/24 23:03 07/30/24 23:04 Temperature Pulse Rate 96 Pulse Rate [Right Pulse Oximeter] Respiratory Rate 16 Blood Pressure 138/88 Blood Pressure [Ri ght Upper Arm] Pulse Oximetry 95 95 96 Oxygen Delivery Me thod Nasal Cannula Oxygen Flow Rate 2 07/30/24 23:19 Temperature Pulse Rate Pulse Rate [Right Pulse Oximeter] Respiratory Rate Blood Pressure 125/82 Blood Pressure [Ri ght Upper Arm] Pulse Oximetry Oxygen Delivery Me thod Oxygen Flow Rate <Fercho Mendez MD - Last Filed: 07/31/24 00:53> Documenting provider has reviewed patient's vital signs: yes <Carmen Miller MD - Last Filed: 08/01/24 01:14> Course Course ED Course: Lung sounds are coarse, could just be ongoing affects of the RSV. Need to consider secondary pneumonia, fluid overload. She is quite comfortable right now. Will maintain her on 2 L nasal cannula, initially she was on 4 L and has been titrated down. She has underlying asthma, could potentially be component of bronchospasm/inflammation with this as well. Start with a portable chest x-ray. Get full complement of labs and will be able to compare to where she was at on recent prior hospitalization. <Carmen Miller MD - Last Filed: 08/01/24 01:14> Reevaluation(s) Reevaluation #1: Patient signed out to Dr. Mendez at shift change-[id number] Harris. 49-year-old female with a complex past history including COPD, elevated BMI with hypoventilation syndrome, and recent hospitalization for RSV. She return to the ER tonight by EMS with difficulty breathing and hypoxia. She does have home oxygen but apparently had taken her home oxygen off for a while tonight before EMS arrived. Sats rebounded from the 70s when EMS picked her up to the 90s when she got back on 2 L nasal cannula. She was just in the hospital few days ago with RSV. Dr. Harris suspects ongoing symptoms for RSV. However she has ordered a CT scan of the patient's chest to look for any other pathology. I am follow-up on the chest CT results and is lungs it shows no concerning pathology, we anticipate the patient will discharged to her care facility. She is a resident of [facility]. CT scan resulted IMPRESSION: 1. Persistent mosaic attenuation of the lungs, likely related to small vessel/small airways disease, to include infectious bronchiolitis. 2. No other acute findings within the chest. Please note that all CT scans at this facility use dose modulation, iterative reconstruction, and/or weight-based dosing when appropriate to reduce radiation dose to as low as reasonably achievable. I recheck the patient. Oxygen was 97% on 2 L nasal cannula. Patient was mentating normally, breathing easily. She was able to sit upper lung exam we and does have a few scattered rales and wheezes consistent with a mild bronchospasm in RSV from bronchiolitis. She is comfortable discharging back to her care facility. She has adequate supplies of her nebulizers, inhalers, and other medications. She has access to home oxygen that she will use. Precautions for return to the ER reviewed and questions answered to the best my ability. <Fercho Mendez MD - Last Filed: 07/31/24 00:53> Vital Signs Vital signs: Initial Vital Signs Temperature 97.7 F 07/30/24 20:15 Temperature Source Temporal Artery Scan 07/30/24 20:15 Pulse Rate 97 07/30/24 20:15 Pulse Rhythm Regular 07/30/24 20:15 Pulse Strength 3+ Normal 07/30/24 20:15 Respiratory Rate 24 07/30/24 20:15 Blood Pressure 137/90 H 07/30/24 20:15 Blood Pressure Mean 105 07/30/24 20:15 Blood Pressure Position Supine 07/30/24 20:15 Pulse Oximetry 77 L 07/30/24 20:15 Oxygen Delivery Method Room Air 07/30/24 20:15 Vital Signs Temperature 97.7 F 07/30/24 20:15 Pulse Rate 97 07/30/24 20:15 Respiratory Rate 24 07/30/24 20:15 Blood Pressure 137/90 H 07/30/24 20:15 Pulse Oximetry 77 L 07/30/24 20:15 Oxygen Delivery Method Room Air 07/30/24 20:15 Temperature 97.7 F 07/30/24 20:15 Pulse Rate 96 07/30/24 23:04 Respiratory Rate 16 07/30/24 23:04 Blood Pressure 125/82 07/30/24 23:19 Pulse Oximetry 96 07/30/24 23:04 Oxygen Delivery Method Nasal Cannula 07/30/24 23:03 Oxygen Flow Rate 2 07/30/24 23:03 <Carmen Miller MD - Last Filed: 08/01/24 01:14> Initial Vital Signs Temperature 97.7 F 07/30/24 20:15 Temperature Source Temporal Artery Scan 07/30/24 20:15 Pulse Rate 97 07/30/24 20:15 Pulse Rhythm Regular 07/30/24 20:15 Pulse Strength 3+ Normal 07/30/24 20:15 Respiratory Rate 24 07/30/24 20:15 Blood Pressure 137/90 H 07/30/24 20:15 Blood Pressure Mean 105 07/30/24 20:15 Blood Pressure Position Supine 07/30/24 20:15 Pulse Oximetry 77 L 07/30/24 20:15 Oxygen Delivery Method Room Air 07/30/24 20:15 Vital Signs Temperature 97.7 F 07/30/24 20:15 Pulse Rate 97 07/30/24 20:15 Respiratory Rate 24 07/30/24 20:15 Blood Pressure 137/90 H 07/30/24 20:15 Pulse Oximetry 77 L 07/30/24 20:15 Oxygen Delivery Method Room Air 07/30/24 20:15 Temperature 97.7 F 07/30/24 20:15 Pulse Rate 96 07/30/24 23:04 Respiratory Rate 16 07/30/24 23:04 Blood Pressure 125/82 07/30/24 23:19 Pulse Oximetry 96 07/30/24 23:04 Oxygen Delivery Method Nasal Cannula 07/30/24 23:03 Oxygen Flow Rate 2 07/30/24 23:03 <Fercho Mendez MD - Last Filed: 07/31/24 00:53> MDM - SOB/Dyspnea Lab Data Attestation: I reviewed the patient's lab results. <Carmen Miller MD - Last Filed: 08/01/24 01:14> Lab results narrative: ProBNP was 296 on July 23 2024 <Carmen Miller MD - Last Filed: 08/01/24 01:14> Labs: Lab Results 07/30/24 07/30/24 Range/Units 21:06 21:28 WBC 11.03 H (4.50-11.00) K/uL RBC 3.82 L (4.00-5.20) m/uL Hgb 11.1 L (12.0-16.0) gm/dL Hct 37.5 (33.0-51.0) % MCV 98 (80-100) fL MCH 29 (26-34) pg MCHC 30 L (32-36) gm/dL RDW Coeff of Tomy 14.0 (11.5-15.5) % Plt Count 236 (140-440) K/uL Neut % (Auto) 73.5 H (42.0-72.0) % Lymph % (Auto) 15.6 L (20-44) % [place] % (Auto) 4.6 (0.0-11.0) % Eos % (Auto) 2.6 (0.0-7.0) % Baso % (Auto) 0.3 (0.0-3.0) % Neut # (Auto) 8.10 H (1.7-7.0) K/uL Lymph # (Auto) 1.70 (0.90-2.90) K/uL [place] # (Auto) 0.50 (0.00-0.90) K/UL Eos # (Auto) 0.30 (0.00-0.50) K/uL Baso # (Auto) 0.00 (0.00-0.30) K/uL Abs Immat Gran (auto) 0.40 H (0.00-0.30) K/uL Imm/Tot Granulo (auto) 3.4 % VBG pH 7.382 (7.32-7.43) VBG pCO2 79 H* (40-50) mmHG VBG pO2 97.1 H (25-47) mmHG VBG HCO3 47 H (21-28) mmol/L Sodium 138 (135-149) mmol/L Potassium 4.0 (3.6-5.1) mmol/L Chloride 91 L (96-114) mmol/L Carbon Dioxide 41 H* (20-32) mmol/L Anion Gap 6 L (7-15) mEq/L BUN 17 (5-24) mg/dL Creatinine 0.7 (0.5-1.5) mg/dL Estimated Creat Clear 170.74 Estimated GFR 107 ml/min Glucose 127 H (60-115) mg/dL Calcium 8.4 (8.4-10.6) mg/dL Total Bilirubin 0.6 (0.1-1.5) mg/dL AST 30 (12-35) U/L ALT 46 H (4-35) U/L Alkaline Phosphatase 84 (40-150) U/L Troponin I < 0.01 L (0.01-0.04) ng/mL C-Reactive Protein 2.9 H (0.5-1.0) mg/dL NT-Pro-B Natriuret Pep 195 pg/mL Total Protein 6.4 (6.0-8.3) g/dL Albumin 3.4 (3.3-5.0) g/dL Procalcitonin 0.05 (<0.50) ng/mL <Carmen Miller MD - Last Filed: 08/01/24 01:14> Lab Results 07/30/24 07/30/24 Range/Units 21:06 21:28 WBC 11.03 H (4.50-11.00) K/uL RBC 3.82 L (4.00-5.20) m/uL Hgb 11.1 L (12.0-16.0) gm/dL Hct 37.5 (33.0-51.0) % MCV 98 (80-100) fL MCH 29 (26-34) pg MCHC 30 L (32-36) gm/dL RDW Coeff of Tomy 14.0 (11.5-15.5) % Plt Count 236 (140-440) K/uL Neut % (Auto) 73.5 H (42.0-72.0) % Lymph % (Auto) 15.6 L (20-44) % [place] % (Auto) 4.6 (0.0-11.0) % Eos % (Auto) 2.6 (0.0-7.0) % Baso % (Auto) 0.3 (0.0-3.0) % Neut # (Auto) 8.10 H (1.7-7.0) K/uL Lymph # (Auto) 1.70 (0.90-2.90) K/uL [place] # (Auto) 0.50 (0.00-0.90) K/UL Eos # (Auto) 0.30 (0.00-0.50) K/uL Baso # (Auto) 0.00 (0.00-0.30) K/uL Abs Immat Gran (auto) 0.40 H (0.00-0.30) K/uL Imm/Tot Granulo (auto) 3.4 % VBG pH 7.382 (7.32-7.43) VBG pCO2 79 H* (40-50) mmHG VBG pO2 97.1 H (25-47) mmHG VBG HCO3 47 H (21-28) mmol/L Sodium 138 (135-149) mmol/L Potassium 4.0 (3.6-5.1) mmol/L Chloride 91 L (96-114) mmol/L Carbon Dioxide 41 H* (20-32) mmol/L Anion Gap 6 L (7-15) mEq/L BUN 17 (5-24) mg/dL Creatinine 0.7 (0.5-1.5) mg/dL Estimated Creat Clear 170.74 Estimated GFR 107 ml/min Glucose 127 H (60-115) mg/dL Calcium 8.4 (8.4-10.6) mg/dL Total Bilirubin 0.6 (0.1-1.5) mg/dL AST 30 (12-35) U/L ALT 46 H (4-35) U/L Alkaline Phosphatase 84 (40-150) U/L Troponin I < 0.01 L (0.01-0.04) ng/mL C-Reactive Protein 2.9 H (0.5-1.0) mg/dL NT-Pro-B Natriuret Pep 195 pg/mL Total Protein 6.4 (6.0-8.3) g/dL Albumin 3.4 (3.3-5.0) g/dL Procalcitonin 0.05 (<0.50) ng/mL <Fercho Mendez MD - Last Filed: 07/31/24 00:53> Imaging Data Chest x-ray: Attestation: I have reviewed the pertinent imaging results. <Carmen Miller MD - Last Filed: 08/01/24 01:14> Radiologist's impression: Patient: TASHIA HAZEL Facility:?[facility] Patient ID:?[id number] Site Patient ID:?[id number]. Site :?[id number] Study:?XRay-Chest PCXR-07/30/2024 8:39:46 PM Ordering Physician:?PROVIDER TEMP Final Report: INDICATION: Shortness of breath, recent RSV TECHNIQUE: Chest radiograph 1 view COMPARISON: 07/27/2024 FINDINGS: The sensitivity and specificity of the exam are severely limited by the patient`s body habitus. Mediastinum: The mediastinum is normal in appearance. Mild, stable cardiomegaly is noted. Lung: Moderate pulmonary vascular congestion is present with interstitial prominence. Both apices are obscured by the patient`s chin. No sign of pleural effusion seen. No pneumothorax is identified. Bone and Soft tissue: Unremarkable for age. IMPRESSIONS: 1. Moderate pulmonary vascular congestion is present with interstitial prominence. Clinical correlation is recommended to exclude interstitial edema. 2. Mild, stable cardiomegaly is noted. Dictated by Chandan Campbell MD @ 07/30/2024 9:06:25 PM Dictated by: Chandan Campbell MD @ 07/30/2024 21:06:28 (Electronic Signature) <Carmen Miller MD - Last Filed: 08/01/24 01:14> CT scan - chest: Attestation: I have reviewed the pertinent imaging results. <Carmen Miller MD - Last Filed: 08/01/24 01:14> Radiologist's impression: Patient: TASHIA HAZEL Facility:?[facility] Patient ID:?[id number] Site Patient ID:?[id number]. Site :?[id number] Study:?CT-Chest WITHOUT-07/30/2024 11:26:08 PM Ordering Physician:Latia Morales Final Report: INDICATION: Recent RSV. TECHNIQUE: CT chest without contrast. COMPARISON: Chest CT 06/16/2024. FINDINGS: Lungs and pleura: Hazy ground-glass opacities scattered throughout the lungs, greatest within the upper lobes, compatible with mosaic attenuation. No pleural effusion or pneumothorax. No discrete suspicious pulmonary nodule. Bilateral upper lobe calcified granulomata. Heart and vasculature: Heart size is normal. Thoracic aorta and pulmonary artery are normal in caliber. Lymph nodes/mediastinum: No mediastinal, hilar, or axillary adenopathy. Chest wall: No masses. Upper abdomen: Cholelithiasis. Bones: Unremarkable for age. IMPRESSION: 1. Persistent mosaic attenuation of the lungs, likely related to small vessel/small airways disease, to include infectious bronchiolitis. 2. No other acute findings within the chest. Please note that all CT scans at this facility use dose modulation, iterative reconstruction, and/or weight-based dosing when appropriate to reduce radiation dose to as low as reasonably achievable. Dictated by Fercho Head MD @ 07/30/2024 11:57:36 PM (Electronic Signature) <Carmen Miller MD - Last Filed: 08/01/24 01:14> ECG Data Attestation: I personally reviewed and interpreted this ECG as follows: (Normal sinus rhythm, 96 beats per minute. No ischemic change, no infarct.) <Carmen Miller MD - Last Filed: 08/01/24 01:14> ECG interpretation date: 07/30/24 <Carmen Miller MD - Last Filed: 08/01/24 01:14> ECG interpretation time: 21:34 <Carmen Miller MD - Last Filed: 08/01/24 01:14> Prior ECG tracings: available for review <Carmen Miller MD - Last Filed: 08/01/24 01:14> Discharge Plan Discharge Clinical Impression: RSV infection <Carmen Miller MD - Last Filed: 08/01/24 01:14> Patient Disposition: Home, Self-Care <Carmen Miller MD - Last Filed: 08/01/24 01:14> Condition: Stable <Carmen Miller MD - Last Filed: 08/01/24 01:14> Instructions: RSV (Respiratory Syncytial Virus) Infection (ED) <Carmen Miller MD - Last Filed: 08/01/24 01:14> Additional Instructions: Please continue on your medications and your nebulizers and inhalers as you have been doing. Drink plenty of fluids and stay hydrated. Take your other normal medications. Please return to the ER right away if you have worsening trouble breathing, high fever, chest pain, or any other concerns Please recheck with your regular doctor within 3-4 days. <Carmen Miller MD - Last Filed: 08/01/24 01:14> Activity Level: No Restrictions <Carmen Miller MD - Last Filed: 08/01/24 01:14> No Restrictions <Fercho Mendez MD - Last Filed: 07/31/24 00:53> Discharge Diet: Regular <Carmen Miller MD - Last Filed: 08/01/24 01:14> Regular <Fercho Mendez MD - Last Filed: 07/31/24 00:53> Prescriptions: No Action levetiracetam [Keppra] 750 mg tablet 750 mg PO BID potassium chloride 10 mEq tablet extended release 20 meq PO DAILY Rx Instructions: take 2 tablets daily levothyroxine 100 mcg tablet 100 mcg PO DAILY diphenhydramine HCl [Banophen] 25 mg capsule 25 mg PO DAILY PRN Rx Instructions: allergies ibuprofen 200 mg capsule 200 - 400 mg PO Q4-6H PRN magnesium hydroxide [Milk of Magnesia] 400 mg/5 mL suspension 15 - 30 ml PO DAILY PRN terbinafine HCl 1 % cream 1 applic topical BID alum-mag hydroxide-simeth [Maalox Advanced] 200-200-20 mg/5 mL suspension 5 - 10 ml PO 5XD PRN Rx Instructions: administer between meals and at bedtime loperamide [Anti-Diarrheal (loperamide)] 2 mg tablet 1 mg PO Q6H PRN dextromethorphan HBr 10 mg/5 mL syrup 5 - 10 mg PO Q4-6H PRN montelukast 10 mg tablet 10 mg PO HS mirabegron [Myrbetriq] 50 mg tablet extended release 24 hr 50 mg PO DAILY Patient Comments: albuterol sulfate 90 mcg/actuation HFA aerosol inhaler 1 - 2 puff INHALATION Q4H PRN cholecalciferol (vitamin D3) 50 mcg (2,000 unit) capsule 50 mcg PO DAILY paroxetine HCl 40 mg tablet 40 mg PO DAILY Patient Comments: budesonide-formoterol [Symbicort] 160-4.5 mcg/actuation HFA aerosol inhaler 2 puff INHALATION BID Qty: 1 0RF furosemide 20 mg tablet 20 mg PO BID@08,12 famotidine 20 mg tablet 20 mg PO BID fluticasone propionate 50 mcg/actuation spray,suspension 2 spray INTRANASAL DAILY Patient Comments: [NO ORIGINAL SIG] ipratropium-albuterol 0.5 mg-3 mg(2.5 mg base)/3 mL solution for nebulization 1 ml INHALATION TID Patient Comments: [NO ORIGINAL SIG] mirtazapine 15 mg tablet 15 mg PO HS omeprazole 20 mg capsule,delayed release(DR/EC) 40 mg PO DAILY <Carmen Miller MD - Last Filed: 08/01/24 01:14> Follow Up/Referrals: Geronimo Lamb MD [Primary Care Provider] - <Carmen Miller MD - Last Filed: 08/01/24 01:14> Stand Alone Forms: MyHealth Info Instructions <Carmen Miller MD - Last Filed: 08/01/24 01:14>
--- OUTSIDE RECORDS SUMMARY | 2024-07-30 21:15 | XMS_ITS | Clinical Summary ---
Author Organization [facility] Address [address] , [address] [place] [address] Phone Care Team Providers Care Turn Out Worker Name Role Phone Son Jara MD Conditions or Problems Problem Name Problem Code Onset Date Status Entry Date Provider Comment Standard Description Annotate Involuntary movements 181838782 (SNOMED CT) Active Son Jara MD Abnormal involuntary movement Tremor [id number] (SNOMED CT) Active Son Jara MD Tremor Medications Medication Instructions Start Date Stop Date Generic Name ND Provider SOLIFENACIN SUCCINATE 10 MG TABS Take 1 Tablet (10 mg) by mouth once daily. solifenacin (VESICARE) 10 mg tablet [id number] Son Jara MD PROCHLORPERAZINE MALEATE 5 MG TABS Take 1 Tablet (5 mg) by mouth every 8 hours if needed for Nausea/Vomitin g. prochlorperazine (COMPAZINE) 5 mg tablet [id number] Son Jara MD OMEPRAZOLE 20 MG CPDR Take 2 Capsules (40 mg) by mouth once daily before a meal. omeprazole (PriLOSEC) 20 mg Delayed-Release capsule [id number] Son Jara MD MONTELUKAST SODIUM 10 MG TABS Take 1 Tablet (10 mg) by mouth at bedtime. montelukast (SINGULAIR) 10 mg tablet [id number] Son Jara MD mirabegron EXTENDED-release (MYRBETRIQ) 50 mg tablet Take 1 Tablet (50 mg) by mouth once daily. mirabegron EXTENDED-release (MYRBETRIQ) 50 mg tablet Son Jara MD MECLIZINE HCL 25 MG TABS Take 0.5 Tablets (12.5 mg) by mouth 3 times daily if needed for Nausea/Vomitin g. meclizine (ANTIVERT) 25 mg tablet [id number] Son Jara MD LEVOTHYROXINE SODIUM 175 MCG TABS Take 1 Tablet (175 mcg) by mouth before breakfast. levothyroxine (SYNTHROID) 175 mcg tablet [id number] Son Jara MD FEXOFENADINE HCL 180 MG TABS Take 1 tablet by mouth once daily with a meal. fexofenadine (ROJAS) 180 mg tablet [id number] Son Jara MD DIPHENHYDRAMINE HCL 25 MG CAPS Take 1 capsule by mouth each time if needed. diphenhydrAMINE (BENADRYL) 25 mg capsule [id number] Son Jara MD VITAMIN D 50 MCG (2000 UT) TABS Take 2,000 units by mouth. cholecalciferol, Vitamin D3, 2,000 unit tablet [id number] Son Jara MD BUPROPION HCL ER (XL) 150 MG [id number] null buPROPion (WELLBUTRIN XL) 150 mg Extended-Release tablet [id number] Son Jara MD IPRATROPIUM-ALBUTE ROL 0.5-2.5 (3) MG/3ML SOLN Inhale 3 mL via a nebulizer 2 times daily if needed for Shortness of Breath 1st choice or Wheezing 1st choice. albuterol-ipratrop ium (DUONEB) (2.5-0.5 mg) in 3 mL NEBULIZA [id number] Son Jara MD ALBUTEROL SULFATE HFA 108 (90 Base) MCG/ACT AERS Inhale 1-2 Puffs by mouth every 4 hours if needed for Shortness of Breath 1st choice. albuterol HFA (ProAir HFA) 90 mcg/actuation inhaler [id number] Son Jara MD ALBUTEROL SULFATE (2.5 MG/3ML) 0.083% NEBU Inhale 3 mL via a nebulizer every 6 hours if needed for Shortness Of Breath or Wheezing. albuterol (PROVENTIL) 0.083 % neb solution [id number] Son Jara MD SYMBICORT 160-4.5 MCG/ACT AERO null Symbicort 160-4. 5 mcg/actuation (160-4.5 mcg each actuation) [id number] Son Jara MD PAROXETINE HCL 40 MG TABS null PARoxetine (PAXI L) 40 mg tablet [id number] Son Jara MD Medications Administered No information [...] Date ORDERS EEG Sleep Deprived (41min) 2 CPT-83387 EEG EXTENDED 41-60mins (END) [id number] Documentation of current medicatio ns ORDERS Patient Instructions Vital Signs No information available. Immunizations No information available. Advance Directives No information available.
--- OUTSIDE RECORDS SUMMARY | 2024-07-30 21:15 | XMS_ITS | CCD ---
Author Organization Unknown Care Team Providers Care Bi Consultant Name Role Phone Parts Classifier, [place] Primary Care Provider Unava ilable Unavailable Chronic Care Management Unavaila ble Summary Purpose DataExchange Insurance Providers Payer name Policy type / Coverage type Covered alliance party ID Effective Begin Date Effective End Date [facility] Commercial Insurance [id number] Unkn own Family History Family History data not found Medication Administered No Medication Administered data Reason For Visit No Reason For Visit data
--- OUTSIDE RECORDS SUMMARY | 2024-07-30 21:15 | XMS_ITS | Clinical Summary ---
Author Organization [facility] Address [address] [place] [address] Care Team Providers Care Maintenance Assistant Name Role Phone Elsewhere, Pcp Primary Care Provider Unavailabl e Source Comments Patient records contain information from all sites at [facility]. For routine questions regarding patient records, call [phone] during business hours, M-F 8:00 AM - 5:00 PM Central Time. Record requests for emergency care only can be directed to [phone] at any time.[facility] Allergies Active Allergy Reactions Criticality Noted Date [...] Sex Assigned at Female 06/02/2018 2:11 PM PROCESS ENG Legal Sex Female 5:08 AM PROCESS ENG Gender Identity Female 06/02/2018 2:11 PM PROCESS ENG Sexual Orientation Choose not to disclose 2018 2:11 PM PROCESS ENG Last Filed Vital Signs Vital Sign Reading [...] this topic Medical Devices Implanted Type Area Cake Icer Device Identifier Shelf Expiration Date Model / Serial / Lot Ear Implant- [id number] Implanted:11/24 (Quantity not on file) Ear Implant Ear [facility] Bernice Vega TORP Plasti-pore [id number] / / [id number] Description:[facility], [place], [place]. Ear implant-Vega TOPR Plasti-pore MRI Safe Procedures Procedure Name Priority Date/Time Associated Diagnosis Comments THYROID-STIMULATING HORMONE-SENSITIVE (S-TSH) Routine 10/27/2018 3:42 PM CDT Hypothyroidism Primary BASIC METABOLIC PANEL, S/P Routine 03/11/2018 1:58 PM CDT Dizziness Diplopia LIPID PANEL, S Routine 06/10/2016 10:40 AM PROCESS ENG from Last 3 Months or Most Recently Relevant to Health Maintenance Results * (ABNORMAL) S-TSH (Thyroid-Stimulating Hormone - Sensitive) (10/27/2018 3:42 PM CDT) TSH, Sensitive 10.7(H) 0.3 - 4.2 mIU/L 10/27/2018 5:20 PM CDT Comment: Biotin has been identified by the dry wall plasterer as a potential interfering substance. Higher concentrations of biotin may be found in multivitamins, hair/nail supplements, and workout supplements. If the result does not match clinical observations, repeat testing after patient refrains from the use of supplements for at least 12 hours. Blood (Blood, Venous) 10/27/2018 3:42 PM CDT 10/27/2018 3:43 PM CDT us Deanne Tsang P.A.-C. LAB BLOOD ADD-ON Final Result [facility] [address] [place] [address], [facility] * Basic Metabolic Panel (03/11/2018 1:58 PM CDT) Potassium, S 4.0 3.6 - 5.2 mmol/L 03/11/2018 2:29 PM CDT [facility] Sodium, S 141 135 - 145 mmol/L 03/11/2018 2:29 PM CDT [facility] Chloride, S 101 98 - 107 mmol/L 03/11/2018 2:29 PM CDT [facility] Bicarbonate, S 27 22 - 29 mmol/L 03/11/2018 2:29 PM CDT [facility] Anion Gap 13 7 - 15 03/11/2018 2:29 PM CDT [facility] BUN (Blood Urea Nitrogen), S 12 6 - 21 mg/dL 03/11/2018 2:29 PM CDT [facility] Creatinine 0.62 0.59 - 1.04 mg/dL 03/11/2018 2:29 PM CDT [facility] eGFR-Non Black/ >90 >=60 mL/min/BSA 03/11/2018 2:29 PM CDT [facility] Comment: ----ADDITIONAL INFORMATION---- Estimated GFR calculated using the 2009 CKD_EPI creatinine equation. eGFR-Black/Afri can Ugandan >90 >=60 mL/min/BSA 03/11/2018 2:29 PM CDT [facility] Comment: ----ADDITIONAL INFORMATION---- Estimated GFR calculated using the 2009 CKD_EPI creatinine equation. Calcium, Total, S 9.4 8.6 - 10.0 mg/dL 03/11/2018 2:29 PM CDT [facility] Glucose, S 95 70 - 140 mg/dL 03/11/2018 2:29 PM CDT [facility] Blood (Blood, Venous) 03/11/2018 1:58 PM CDT 03/11/2018 1:58 PM CDT Deanne Tsang P.A.-C. LAB BLOOD ADD-ON Final Result Performing Organization Address City/State/[facility] Co de Phone Number [facility] [address] * (ABNORMAL) Lipid Panel (06/10/2016 10:40 AM PROCESS ENG) [facility] Cholesterol, Total 275(H) <=199 MGDL POWERCHART [...] for FH and FDB is available through [place] [employer]: FH/ADH Genetic Reflex Panel (test ADHP). Acquired (non-genetic) causes of markedly increased LDL cholesterol include cholestatic liver disease due to the presence of LpX. If a genetic form of hypercholesterolemia is suspected, family studies including biochemical testing for lipids (total cholesterol,triglycerides, LDL cholesterol and HDL cholesterol) are recommended. Please contact the laboratory at or the on-line test catalog at [employer] for information about how to order these tests or to speak with a genetic counselor. Further interpretation would require clinical information. Total Cholesterol/HDL Ratio 5 POWERCHART Blood 06/10/2016 10:4 0 AM PROCESS ENG us Ana Chery M.D. LAB BLOOD ADD-ON Final Re sult POWERCHART from Last 3 Months or Most Recently Relevant to Health Maintenance Insurance [facility] Care Teams Maintenance Assistant Relationship Specialty Start Date End Date Elsewhere, Pcp PCP - General Internal Medicine 12/04/18
--- OUTSIDE RECORDS SUMMARY | 2024-07-30 21:15 | XMS_ITS | CCD ---
Author Organization Unknown Care Team Providers Care Squeegee Operator Name Role Phone Queen Producer, [place] Primary Care Provider Unava ilable Unavailable Chronic Care Management Unavaila ble Summary Purpose DataExchange Insurance Providers Payer name Policy type / Coverage type Covered democrat ID Effective Begin Date Effective End Date [facility] Commercial Insurance [id number] Unkn own Family History Family History data not found Medication Administered No Medication Administered data Reason For Visit No Reason For Visit data
[2024-07-30 21:34] LABS: HCO3 VBG 47 mmol/L (21-28); PO2 VBG 97.1 mmHG (25-47); pH VBG 7.382 (7.32-7.43)
[2024-07-30 21:39] LABS: PCO2 VBG 79 mmHG (40-50)
[2024-07-30 21:40] LABS: Basophils Percent Auto 0.3 % (0.0-3.0); Eosinophils Percent Auto 2.6 % (0.0-7.0); Hematocrit 37.5 % (33.0-51.0); Hemoglobin* 11.1 gm/dL (12.0-16.0); Immature Granulocytes Pct Auto 3.4 %; Lymphocytes Percent Auto 15.6 % (20-44); Mean Corpuscular HGB Conc 30 gm/dL (32-36); Mean Corpuscular Hemoglobin 29 pg (26-34); Mean Corpuscular Volume 98 fL (80-100); Monocytes Percent Auto 4.6 % (0.0-11.0); Neutrophils Percent Auto 73.5 % (42.0-72.0); Platelet Count* 236 K/uL (140-440); Red Blood Count 3.82 m/uL (4.00-5.20); White Blood Count* 11.03 K/uL (4.50-11.00)
[2024-07-30 21:41] LABS: Slide Review Reflex No
[2024-07-30 21:49] LABS: Albumin* 3.4 g/dL (3.3-5.0); Chloride* 91 mmol/L (96-114); Sodium* 138 mmol/L (135-149)
[2024-07-30 21:52] LABS: Alanine Aminotransferase* 46 U/L (4-35); Alkaline Phosphatase* 84 U/L (40-150); Aspartate Amino Transferase* 30 U/L (12-35); Bilirubin Total* 0.6 mg/dL (0.1-1.5); Blood Urea Nitrogen* 17 mg/dL (5-24); Creatinine* 0.7 mg/dL (0.5-1.5); Est. Creatinine Clearance* 170.74; Estimated Glomerular Filt Rate 107 ml/min; Glucose* 127 mg/dL (60-115); Total Protein* 6.4 g/dL (6.0-8.3)
[2024-07-30 21:53] LABS: Calcium* 8.4 mg/dL (8.4-10.6)
[2024-07-30 21:55] LABS: C Reactive Protein* 2.9 mg/dL (0.5-1.0)
[2024-07-30 22:05] LABS: Anion Gap 6 mEq/L (7-15); Carbon Dioxide* 41 mmol/L (20-32)
[2024-07-30 22:09] LABS: Procalcitonin* 0.05 ng/mL (<0.50)
[2024-07-30 22:10] LABS: NT Pro B Type NatriureticPept* 195 pg/mL; Troponin I* < 0.01 ng/mL (0.01-0.04)
== END 2024-07-31 00:47 | disposition home or self-care (01) ==
PROVIDERS: Family Medicine; Emergency Provider Emergency Medicine; PCP Family Medicine
DX: J21.0 Acute bronchiolitis due to respiratory syncytial virus (principal)
CPT/HCPCS: 36415; 71045; 71250; 80053; 82803; 83880; 84145; 84484; 85025; 86140; 93005; 94761; 99285

== ENCOUNTER 2024-07-31 00:38 | Outpatient (CLI) | payer OTHER, SELFPAY | END 2024-07-31 00:39 | disposition home or self-care (01) | LOC: AMB 08-02 12:22 | PROVIDERS: PCP Family Medicine; Visit Provider Family Medicine | DX: J22 Unspecified acute lower respiratory infection (principal) | CPT/HCPCS: A0425; A0428 ==

== ENCOUNTER 2024-08-05 17:37 | Outpatient (CLI) | payer OTHER, SELFPAY | END 2024-08-05 17:38 | disposition home or self-care (01) | LOC: AMB 08-06 10:49 | PROVIDERS: PCP Family Medicine; Visit Provider Family Medicine | DX: R06.09 Other forms of dyspnea (principal) | CPT/HCPCS: A0425; A0427 ==

== ENCOUNTER 2024-08-05 17:53 | Inpatient (IN) | payer MEDICAID, MEDICARE, SELFPAY ==
[2024-08-05] VITALS (10 sets, daily range): BP systolic 121–133; BP diastolic 75–85; PULSE 105–112; RESP 24–28; TEMP 37–37.1; O2SAT 78–92; BMI 53.0; BMI 54.7
--- OUTSIDE RECORDS SUMMARY | 2024-08-05 17:56 | XMS_ITS | CCD ---
Author Organization Unknown Care Team Providers Care Thread Cutter Tender Name Role Phone [place], [place] Primary Care Provider Unava ilable Unavailable Chronic Care Management Unavaila ble Summary Purpose DataExchange Insurance Providers Payer name Policy type / Coverage type Covered alliance party ID Effective Begin Date Effective End Date [facility] Commercial Insurance [id number] Unkn own Family History Family History data not found Medication Administered No Medication Administered data Reason For Visit No Reason For Visit data
--- OUTSIDE RECORDS SUMMARY | 2024-08-05 17:56 | XMS_ITS | Clinical Summary ---
Author Organization [facility] Address [address] [place] [address] Care Team Providers Care Manager E Commerce Name Role Phone Elsewhere, Pcp Primary Care Provider Unavailabl e Source Comments Patient records contain information from all sites at [facility]. For routine questions regarding patient records, call [phone] during business hours, M-F 8:00 AM - 5:00 PM Central Time. Record requests for emergency care only can be directed to [phone] at any time.[facility] Allergies Active [...] Sex Assigned at Female 06/02/2018 2:11 PM COMPOSITION ROOFER Legal Sex Female 5:08 AM COMPOSITION ROOFER Gender Identity Female 06/02/2018 2:11 PM COMPOSITION ROOFER Sexual Orientation Choose not to disclose 2018 2:11 PM COMPOSITION ROOFER Last Filed Vital Signs Vital Sign Reading [...] this topic Medical Devices Implanted Type Area Esthetician/Owner Device Identifier Shelf Expiration Date Model / Serial / Lot Ear Implant- 011 Implanted:11/24 (Quantity not on file) Ear Implant Ear [facility] Bernice Vega TORP Plasti-pore [id number] / / [id number] Description:[facility] [place], [place]. Ear implant-Vega TOPR Plasti-pore MRI Safe Procedures Procedure Name Priority Date/Time Associated Diagnosis Comments THYROID-STIMULATING HORMONE-SENSITIVE (S-TSH) Routine 10/27/2018 3:42 PM CDT Hypothyroidism Primary BASIC METABOLIC PANEL, S/P Routine 03/11/2018 1:58 PM CDT Dizziness Diplopia LIPID PANEL, S Routine 06/10/2016 10:40 AM COMPOSITION ROOFER from Last 3 Months or Most Recently Relevant to Health Maintenance Results * (ABNORMAL) S-TSH (Thyroid-Stimulating Hormone - Sensitive) (10/27/2018 3:42 PM CDT) TSH, Sensitive 10.7(H) 0.3 - 4.2 mIU/L 10/27/2018 5:20 PM CDT Comment: Biotin has been identified by the senior benefits analyst as a potential interfering substance. Higher concentrations of biotin may be found in multivitamins, hair/nail supplements, and workout supplements. If the result does not match clinical observations, repeat testing after patient refrains from the use of supplements for at least 12 hours. Blood (Blood, Venous) 10/27/2018 3:42 PM CDT 10/27/2018 3:43 PM CDT us Deanne Tsang P.A.-C. LAB BLOOD ADD-ON Final Result [facility] [address] [place] [address], [facility] * Basic Metabolic Panel (03/11/2018 1:58 PM CDT) Potassium, S 4.0 3.6 - 5.2 mmol/L 03/11/2018 2:29 PM CDT [facility] Sodium, S 141 135 - 145 mmol/L 03/11/2018 2:29 PM CDT [facility] Chloride, S 101 98 - 107 mmol/L 03/11/2018 2:29 PM CDT [facility] Bicarbonate, S 27 22 - 29 mmol/L 03/11/2018 2:29 PM CDT [facility] Anion Gap 13 7 - 15 03/11/2018 2:29 PM CDT [facility] BUN (Blood Urea Nitrogen), S 12 6 - 21 mg/dL 03/11/2018 2:29 PM CDT [facility] Creatinine 0.62 0.59 - 1.04 mg/dL 03/11/2018 2:29 PM CDT [facility] eGFR-Non Black/ >90 >=60 mL/min/BSA 03/11/2018 2:29 PM CDT [facility] Comment: ----ADDITIONAL INFORMATION---- Estimated GFR calculated using the 2009 CKD_EPI creatinine equation. eGFR-Black/Afri can Wallisian >90 >=60 mL/min/BSA 03/11/2018 2:29 PM CDT [facility] Comment: ----ADDITIONAL INFORMATION---- Estimated GFR calculated using the 2009 CKD_EPI creatinine equation. Calcium, Total, S 9.4 8.6 - 10.0 mg/dL 03/11/2018 2:29 PM CDT [facility] Glucose, S 95 70 - 140 mg/dL 03/11/2018 2:29 PM CDT [facility] Blood (Blood, Venous) 03/11/2018 1:58 PM CDT 03/11/2018 1:58 PM CDT Deanne Tsang P.A.-C. LAB BLOOD ADD-ON Final Result Performing Organization Address City/State/[facility] Co de Phone Number [facility] [address] * (ABNORMAL) Lipid Panel (06/10/2016 10:40 AM COMPOSITION ROOFER) [facility] Cholesterol, Total 275(H) <=199 MGDL [...] for FH and FDB is available through [employer]: FH/ADH Genetic Reflex Panel (test ADHP). Acquired (non-genetic) causes of markedly increased LDL cholesterol include cholestatic liver disease due to the presence of LpX. If a genetic form of hypercholesterolemia is suspected, family studies including biochemical testing for lipids (total cholesterol,triglycerides, LDL cholesterol and HDL cholesterol) are recommended. Please contact the laboratory at or the on-line test catalog at [employer] for information about how to order these tests or to speak with a genetic counselor. Further interpretation would require clinical information. Total Cholesterol/HDL Ratio 5 POWERCHART Blood 06/10/2016 10:4 0 AM COMPOSITION ROOFER us Ana Chery M.D. LAB BLOOD ADD-ON Final Re sult POWERCHART from Last 3 Months or Most Recently Relevant to Health Maintenance Insurance [facility] Care Teams Manager E Commerce Relationship Specialty Start Date End Date Elsewhere, Pcp PCP - General Internal Medicine 12/04/18
--- OUTSIDE RECORDS SUMMARY | 2024-08-05 17:56 | XMS_ITS | CCD ---
Author Organization Unknown Care Team Providers Care Grip Assembler Name Role Phone Neck Band Maker, [place] Primary Care Provider Unava ilable Unavailable Chronic Care Management Unavaila ble Summary Purpose DataExchange Insurance Providers Payer name Policy type / Coverage type Covered constitution party ID Effective Begin Date Effective End Date [facility] Commercial Insurance [id number] Unkn own Family History Family History data not found Medication Administered No Medication Administered data Reason For Visit No Reason For Visit data
--- OUTSIDE RECORDS SUMMARY | 2024-08-05 17:56 | XMS_ITS | Clinical Summary ---
Author Organization [facility] [facility] Address [facility] [place] [address] Care Team Providers Care Head Banquet Waiter/Waitress Name Role Phone Paolo Limon MD Unavailable Talon Durham MD Unavailable [phone] Laura Gardner PsyD, Unavailable [phone] Geronimo Lamb MD Primary Care Provider Luis Santos DO Unavailable [phone] Allergies Active Allergy Reactions Criticality Noted Date [...] meal. 180 Capsule 2 03/12/20 24 Active albuterol HFA (PRO-AIR; [...] BREAKFAST 90 Tablet 1 04/26/20 24 Active mirtazapine (REMERON) 15 mg tablet Take 15 mg by mouth once daily. Active polyethylene glycoL (MIRALAX) 17 gram/scoop powderIndication s:Chronic constipation Mix 1 scoop (17 g) in liquid then take by mouth once daily if needed for Constipation. 510 g 3 05/14/20 24 Active Diaper,Brief, Adult,Disposable Indications:Urge urinary incontinence For home use. Extra-large pull-up brief. 150 Each 11 05/18/20 24 Active montelukast (SINGULAIR) 10 mg tabletIndication s:Allergy, sequela TAKE 1 TABLET BY MOUTH EVERY NIGHT AT BEDTIME 30 Tablet 06/30/19 25 Active albuterol-ipratr opium (DUONEB) (2.5-0.5 mg) in 3 mL NEBULIZATION solutionIndicati ons:Moderate persistent asthma, uncomplicated Inhale 3 mL via a nebulizer three times daily. 1080 mL 3 07/05/19 25 Active guaiFENesin (Mucus Relief ER) 600 mg Extended-Release tabletIndication s:Chronic cough TAKE 1 TABLET BY MOUTH TWICE DAILY NEEDED 20 Tablet 07/15/19 25 Active famotidine (Pepcid) 20 mg tabletIndication s:LPRD (laryngopharynge al reflux disease) Take 1 Tablet (20 mg) by mouth two times daily. 90 Tablet 5 07/20/19 25 Active fluticasone (50 mcg per actuation) nasal solution (FLONASE)Indicat ions:PND (post-nasal drip) Inhale 2 Sprays into affected nostril(s) once daily. 16 g 5 07/20/19 25 Active potassium chloride (Klor-Con 10) 10 mEq extended-release tabletIndication s:Heart failure with preserved ejection fraction, unspecified HF chronicity (HC),SOB (shortness of breath) Take 2 Tablets (20 mEq) by mouth two times daily with meals. 07/21/19 25 Active oxygen-air delivery systems (HOME OXYGEN)Indicatio ns:Chronic respiratory failure with hypoxia and hypercapnia (HC) Oxygen for home use. Liters per minute: 2 per nasal cannula with rest, 3 liters with activity, 2 L bled into CPAP w/ sleep. Frequency of use: Continuous with conserving portability.; . Length of need: 99 Months. 1 Each 08/05/19 25 Active furosemide (LASIX) 20 mg tabletIndication s:Heart failure with preserved ejection fraction, unspecified HF chronicity (HC) Take 1 Tablet (20 mg) by mouth two times daily. 08/06/19 Active potassium chloride (Klor-Con 10) 10 mEq extended-release tabletIndication s:SOB (shortness of breath) Take 2 Tablets (20 mEq) by mouth once daily with a meal. 180 Tablet 2 03/12/20 24 2024 Discontinued(R eorder (E-cancel not sent)) oxygen-air delivery systems (HOME OXYGEN)Indicatio ns:Chronic respiratory failure with hypoxia (HC) Portable conserving device. Oxygen for home use. Liters per minute: 1 LPM per nasal cannula. Frequency of use: With activity. Length of need: 99 Months. 1 Each 05/06/20 24 2024 Discontinued(R eorder (E-cancel not sent)) furosemide (LASIX) 20 mg tabletIndication s:Heart failure with preserved ejection fraction, unspecified HF chronicity (HC) One oral every am, one oral noon, Give additional 20 mg dose p.o. daily as needed for 3 pound weight gain in 1 day or increase in leg swelling. 180 Tablet 1 06/03/19 25 2024 Discontinued(R eorder (E-cancel not sent)) guaiFENesin (Mucinex) 600 mg Extended-Release tabletIndication s:Chronic cough Take 1 Tablet (600 mg) by mouth 2 times daily if needed for Expectoration . 20 Tablet 06/29/19 25 2024 Discontinued ALPRAZolam (XANAX) 0.5 mg tablet Take 0.5 mg by mouth every 12 hours if needed for Anxiety. 07/13/19 25 2024 Discontinued(* Med complete/Regim en complete/Level of care change) furosemide (LASIX) 20 mg tabletIndication s:Heart failure with preserved ejection fraction, unspecified HF chronicity (HC) Tw oral every am, two oral noon, Give additional 20 mg dose p.o. daily as needed for 3 pound weight gain in 1 day or increase in leg swelling. 07/21/19 25 2024 Discontinued(* Medication adjustment) oxygen-air delivery systems (HOME OXYGEN)Indicatio ns:Chronic respiratory failure with hypoxia and hypercapnia (HC) Oxygen for home use. Liters per minute: 2 per nasal cannula with rest, 3 liters with activity, 2 L bled into CPAP w/ sleep. Frequency of use: Continuous with portability.; . Length of need: 99 Months. 1 Each 07/30/19 25 2024 Discontinued(R eorder (E-cancel not sent)) Active Problems Problem Noted Date Diagnosed Date Chronic respiratory failure with hypoxia and hyp ercapnia 07/29/2024 Vocal cord dysfunction 07/05/2024 Urinary incontinence 11/13/2023 Heart failure with preserved [...] Problem Noted Date Diagnosed Date Resolved Date Chronic respiratory failure with hypoxia 07/05/2024 07/29/2024 Acute cholecystitis 05/09/2024 06/03/19 25 Hydrocephalus, unspecified [...] 02/23/200911/2011 Dizziness 06/03/2024 Overview (04/23/2021): Eval by [facility] neurology 2018. Thought to be functional. Referred to psychiatry. Encounters Date Type Department Care Team Description 08/05/2024 Orders Only [facility] [address] [place] [address] Geronimo Lamb MD <No scans attached> 08/04/2024 2:30 PM CDT Telemedicine [facility] [address] [place] [address] Geronimo Lamb MD Telehealth (No vitals taken); Hospital F/U ([facility], RSV) 08/04/2024 Travel 08/02/2024 Telephone [facility] [address] [place] [address] eGronimo Lamb MD Follow Up 07/30/2024 Orders Only [facility] Scanner 1 scan: (1-Ord) [facility], CHEST W/O CONT, 07/30/2024 07/30/2024 Orders Only [facility] Scanner 1 scan: (1-Ord) [facility], XR CHEST 1V PORTABLE , 07/30/2024 07/29/2024 10:10 AM HEALTH CENTER MANAGER Telemedicine [facility] [address] [place] [address] Geronimo Lamb MD Telehealth (No vitals taken); Follow Up 07/29/2024 Travel 07/29/2024 Telephone [facility] [address] [place] [address] Geronimo Lamb MD APPT (SWITCH FROM IN PERSON TO VIRTUAL ) 07/27/2024 Orders Only [facility] Scanner 1 scan: (1-Ord) [facility], CHEST 1V, 07/27/2024 07/24/2024 2:15 PM HEALTH CENTER MANAGER Ancillary Procedure [facility] [address] [place] [address] 07/24/2024 Orders Only [facility] Scanner 1 scan: (1-Ord) [facility], CT ANGIO CHEST PE PROTOCOL, 07/24/2024 07/23/2024 Orders Only [facility] Scanner 1 scan: (1-Ord) [facility], XR CHEST 1V PORTABLE, 07/23/2024 07/21/2024 10:30 AM HEALTH CENTER MANAGER Office Visit [facility] [address] [place] [address] Geronimo Lamb MD Follow Up 07/20/2024 11:00 AM HEALTH CENTER MANAGER Office Visit [facility] [address] [place] [address] Heather Cruz PA Consult (Vocal cord dysfunction) 07/20/2024 Travel 07/14/2024 Refill [facility] [address] [place] [address] Geronimo Lamb MD Refill Request (Mucus Relief Er) 07/11/2024 Orders Only [facility] Scanner 1 scan: (1-Ord) [facility], MULTIPLE LAB RESULTS, 07/11/2024 07/11/2024 Orders Only [facility] Scanner 1 scan: (1-Ord) [facility], XR CHEST 2V, 07/11/2024 07/05/2024 2:30 PM HEALTH CENTER MANAGER Office Visit [facility] [address] [place] [address] Geronimo Lamb MD Follow Up; ER Follow up ([facility], 06/16/2024 and 07/04/2024) 07/05/2024 Travel 07/04/2024 Orders Only [facility] Scanner 1 scan: (1-Ord) [facility], CHEST 2V, 07/04/2024 06/29/2024 Telephone [facility] [address] [place] [address] Geronimo Lamb MD Medication Management 06/29/2024 Refill [facility] [address] [place] [address] Geronimo Lamb MD Refill Request (Montelukast) 06/16/2024 Orders Only [facility] Scanner 1 scan: (1-Ord) [place], CT CHEST WO CON, 06/16/2024 06/16/2024 Orders Only [facility] Scanner 1 scan: (1-Ord) [place], HEAD/BRAIN WO CON, 06/16/2024 06/11/2024 9:00 AM HEALTH CENTER MANAGER - 06/11/2024 11:59 PM HEALTH CENTER MANAGER Hospital Encounter [address] [place] [address] Luis Santos, DO 06/04/2024 9:04 AM HEALTH CENTER MANAGER - 06/04/2024 11:59 PM HEALTH CENTER MANAGER Hospital Encounter [facility] [address] [facility] [place] [address] Luis Santos, DO 06/03/2024 2:05 PM HEALTH CENTER MANAGER Office Visit [facility] [address] [place] [address] Geronimo Lamb MD ER Follow up ([facility], 05/24/2024, pneumonia ) 06/03/2024 Travel 05/25/2024 Orders Only [facility] [address] [facility] [place] [address] Geronimo Lamb MD <No scans attached> 05/24/2024 Orders Only [facility] Scanner 1 scan: (1-Ord) [facility], XR CHEST 2V, 05/24/2024 05/17/2024 Refill [facility] [address] [place] [address] Geronimo Lamb MD Refill Request (Prevail XL [id number]) 05/14/2024 11:15 AM HEALTH CENTER MANAGER Office Visit [facility] [address] [place] [address] Fercho Salcedo MD Hospital F/U (ACUTE CHOLECYSTISIS- feeling better ) 05/14/2024 Refill [facility] [address] [place] [address] Geronimo Lamb MD Refill Request (Protective Underwear Ex-large) 05/14/2024 Travel 05/12/2024 2:00 PM HEALTH CENTER MANAGER Office Visit [facility] [address] [place] [address] Paolo Limon MD Sleep Follow-up 05/12/2024 Travel 05/12/2024 Patient Outreach [facility] [address] [place] [address] Alexandria Pulido, RN Primary RN Care Management; Hospital F/U (LACE 43) 05/09/2024 9:50 PM HEALTH CENTER MANAGER - 05/11/2024 2:49 PM HEALTH CENTER MANAGER Hospital Encounter [address] [address] [facility], Hospitalist Aron Sheppard, DO Discharge Disposition: Home Self Care 05/09/2024 Orders Only [facility] Scanner 1 scan: (1-Ord) [facility], US GALLBLADDER, 05/09/2024 05/09/2024 Orders Only [facility] Scanner 1 scan: (1-Ord) [facility], ABDOMEN PELVIS W/CONTRAST, 05/09/2024 from Last 3 Months Immunizations Immunization Administration Dates Next Due COVID-19 VACCINE SPIKEVAX (M ODERNA 50MCG/0.5ML) 12YO+ PFS 03/19/2023 COVID-19 vaccine ([employer] NTech 30mcg/0.3mL) 12YO+ BIVALENT PF, MDV 05/01/2022 [...] on file Legal Sex Female 6:31 AM HEALTH CENTER MANAGER Gender Identity Not on file Sexual Orientation Not on file Obstetrics History Last Filed Vital Signs Vital Sign Reading Time Taken Comments Blood Pressure 141/86 07/21/2024 10:32 AM HEALTH CENTER MANAGER Pulse 112 07/21/2024 10:32 AM HEALTH CENTER MANAGER Temperature 36.6 C (97.9 F) 05/11/2024 8:03 AM HEALTH CENTER MANAGER Respiratory Rate 18 05/11/2024 8:03 AM HEALTH CENTER MANAGER Oxygen Saturation 92% 07/21/2024 10: 32 AM HEALTH CENTER MANAGER 2L via nasal cannula Inhaled Oxygen Concentration - - Weight 109.3 kg (241 lb) 07/21/2024 10: 32 AM HEALTH CENTER MANAGER Height 142.2 cm (4' 8) 05/12/2024 2:07 PM HEALTH CENTER MANAGER Body Mass Index 54.03 05/12/2024 2:07 PM HEALTH CENTER MANAGER Plan of Treatment Upcoming Encounters Date Type Department Care Team (Late st Contact Info) Description 08/06/2024 9:15 AM CDT Appointment [facility] [address] [place] [place] [address] 08/18/2024 12:00 PM CDT Office Visit [facility] [address] [facility] [address] [place] [address] Sadiq Lujan PA [address] [facility] [address] [place] [address] 08/25/2024 10:00 AM CDT Office Visit [facility] [address] [place] [address] Paolo Limon MD [address] [place] [address] 10/27/2024 1:30 PM CDT Office Visit [facility] [address] [place] [address] Paolo Limon MD [address] [place] [place] [address] Health Maintenance Due Date Last Done Comments [...] 05/01/2022 Pneumococcal series for age 6-49 Completed 01/15/20, 09/14/2013 Tdap Completed 12/01/2023, 10/29/2010 COVID-19 vaccine series Completed 03/02/20 24, 03/19/2023, 05/01/2022, Additional history exists Influenza Vaccine Completed 03/02/2024, , 05/01/2022, Additional history exists Procedures Procedure Name Priority Date/Time Associated Diagnosis Comments SCAN-CT INTERPRETATION 12:00 AM HEALTH CENTER MANAGER SCAN-RADIOLOGY REPORT 07/30/2024 12:00 AM HEALTH CENTER MANAGER SCAN-RADIOLOGY REPORT 07/27/2024 12:00 AM HEALTH CENTER MANAGER ECHO TTE COMPLETE W CONTRAST Routine 07/24/2024 3:13 PM HEALTH CENTER MANAGER Chest pain SCAN-CT INTERPRETATION 12:00 AM HEALTH CENTER MANAGER SCAN-RADIOLOGY REPORT 07/23/2024 12:00 AM HEALTH CENTER MANAGER SCAN-LABORATORY REPORT 12:00 AM HEALTH CENTER MANAGER SCAN-RADIOLOGY REPORT 07/11/2024 12:00 AM HEALTH CENTER MANAGER SCAN-RADIOLOGY REPORT 07/04/2024 12:00 AM HEALTH CENTER MANAGER SCAN-CT INTERPRETATION 5 12:00 AM HEALTH CENTER MANAGER SCAN-CT INTERPRETATION 12:00 AM HEALTH CENTER MANAGER COVID/FLU/RSV PANEL Routine 06/03/2024 2 :37 PM HEALTH CENTER MANAGER Flu-like symptoms SCAN-RADIOLOGY REPORT 05/24/2024 12:00 AM HEALTH CENTER MANAGER NM HEPATOBILIARY IMAGING RICHARD 05/10/2024 1:58 PM HEALTH CENTER MANAGER SCAN CORRESP-LABORATORY RESULTS 05/10/2024 10:49 AM HEALTH CENTER MANAGER SCAN CORRESP-IMAGING 05/10/2024 10:43 AM HEALTH CENTER MANAGER HEPATIC FUNCTION PANEL Early AM 6:26 AM HEALTH CENTER MANAGER PROTIME-INR Early AM 05/10/2024 6:26 AM HEALTH CENTER MANAGER WHITE BLOOD COUNT Early AM 05/10/2024 6:2 6 AM HEALTH CENTER MANAGER HEMOGLOBIN Early AM 05/10/2024 6:26 AM HEALTH CENTER MANAGER PLATELET COUNT Early AM 05/10/2024 6:26 AM HEALTH CENTER MANAGER SODIUM Early AM 05/10/2024 6:26 AM HEALTH CENTER MANAGER POTASSIUM Early AM 05/10/2024 6:26 AM HEALTH CENTER MANAGER CREATININE Early AM 05/10/2024 6:26 AM HEALTH CENTER MANAGER SCAN-ULTRASOUND REPORT 12/15/202 4 12:00 AM HEALTH CENTER MANAGER SCAN-CT INTERPRETATION 4 12:00 AM HEALTH CENTER MANAGER LIPID PANEL W REFLEX MEASURED LDL Routine 01/20/2024 4:00 PM CDT Hyperlipidemia, unspecified hyperlipidemia type ANTI HIV 1/2 Routine 05/01/2022 4:36 PM HEALTH CENTER MANAGER Encounter for screening for HIV ANTI HCV Routine 12/05/2021 9:30 AM CDT Need for hepatitis C screening test SCAN-MAMMOGRAPHY REPORT 02/24/2019 12:00 AM CDT from Last 3 Months or Most Recently Relevant to Health Maintenance Results * SCAN-RADIOLOGY REPORT (07/30/2024 12:00 AM HEALTH CENTER MANAGER) Only the most recent of6 resultswithin the time period is included. Anatomical Region Laterality Modality Other us Scanner OTHER Final Result * SCAN-CT INTERPRETATION (07/30/2024 12:00 AM HEALTH CENTER MANAGER) Only the most recent of5 resultswithin the time period is included. Anatomical Region Laterality Modality Other us Scanner OTHER Final Result * ECHO TTE COMPLETE W CONTRAST (07/24/2024 3:13 PM HEALTH CENTER MANAGER) AORTIC VALVE MEAN PG 4 mmHg EJECTION FRACTION 64 % Anatomical Region Laterality Modality Ultrasound 07/24/2024 2:27 PM HEALTH CENTER MANAGER Narrative 07/24/2024 4:14 PM HEALTH CENTER MANAGER ECHOCARDIOGRAM TASHIA HAZEL : 1975 49 years Study Date: 07/24/2024 2:27:08 PM Gender: F BP: 131/77 mmHg Height: 145.00 cm BSA: 1.97 m Weight: 112.00 kg Tech: MB Referring MD: DERICK MENDIETA Site: [facility] Reading Location: Mobile IP Patient Location: Inpatient. Procedure: 2D w/ Contrast, Color Doppler and Spectral Doppler. Indication for study: Chest pain Cardiac Rhythm: Sinus tachycardia.Study quality: Technically limited. Imaging limitations: This study was subject to imaging limitations due to body habitus. Final Impressions: 1. Technically limited exam. 2. Normal LV function with EF of 64%. 3. Right ventricular cavity size is moderately enlarged, global systolic RV function is normal. 4. Echo contrast was administered to enhance visualization of all left ventricular segments. 5. The mitral valve is not well visualized, no mitral regurgitation. 6. The aortic valve is not well visualized, no stenosis and no regurgitation. Chamber Sizes and Function No resting regional wall motion abnormality visualized. Left atrial size is normal. Left atrial pressure is normal. Right ventricular cavity size is moderately enlarged, global systolic RV function is normal. The right atrium is normal. Right atrial volume index is 24 ml/m . Right atrial area is 15 cm . The pulmonary artery is not well visualized. The sinus of Valsalva is normal sized. The ascending aorta is normal sized. Valves, RV Pressures and Diastolic Function The aortic valve is not well visualized , no stenosis and no regurgitation. The mitral valve is not well visualized, no mitral regurgitation. Mitral annular calcification is present. Normal diastolic function. The tricuspid valve is not well visualized and regurgitation is not evident tricuspid regurgitation. The pulmonic valve is not well visualized. Unable to determine pulmonary regurgitation. Masses, Effusion, Shunts There is no pericardial effusion. The inferior vena cava is normal sized, respiratory size variation less than 50%. No left to right shunting was detected by limited color flow Doppler interrogation of the interatrial septum. MEASUREMENTS AND CALCULATIONS 2-D Measurements and LV Function: Ao Sinus 2.3 cm Planimetered EF 64 % Ao Sinus ULN 3.7 cm * LVOT diameter 1.8 cm Asc Ao 2.7 cm HR 110 bpm Asc Ao ULN 3.7 cm * LA Vol index 15 ml/m2 * Input BSA outside of range, reported values RA Vol index 24 ml/m2 correspond to BSA = 1.9 RA area 15 cm RV Basal Diam 4.2 cm Diastology: Mitral Tissue Doppler E Peak 1.3 m/s e', Septum 0.08 m/s A Peak 0.5 m/s e', Lateral 0.11 m/s E/A 2.8 E/e' Average 13.80 DT 130 msec Aortic Valve: Vmax 1.3 m/s JAZMINE (V) 2.78 cm VTI 0.24 m JAZMINE (I) 2.51 cm LVOT V max 1.4 m/s Max PG 7 mmHg LVOT VTI 0.22 m Mean PG 4 mmHg SV 59 ml Dim Index 0.94 SV index 30 ml/m CO 6.5 l/min CI 3.3 l/min/m Mitral Valve: MVA 5.8 cm MV P 1/2 38 msec MV Mean G 5 mmHg MV VTI 0.25 m Tricuspid Valve and estimated PA pressures: TAPSE 1.9 cm Contrast documentation: 2 ml diluted Definity, lot #[id number], [facility]# [id number] was administered peripherally to enhance visualization of all left ventricular segments. . This study was interpreted by an [facility] accredited facility. CC: HIM (med records) [facility], Med/Surg - IP [facility]. Final Procedure Note Armando Powell MD - 07/24/2024 ECHOCARDIOGRAM TASHIA HAZEL : 1975 49 years Study Date: 07/24/2024 2:27:08 PM Gender: F BP: 131/77 mmHg Height: 145.00 cm BSA: 1.97 m Weight: 112.00 kg Tech: [facility] Referring MD: DERICK MENDIETA Site: [facility] Reading Location: Mobile IP Patient Location: Inpatient. Procedure: 2D w/ Contrast, Color Doppler and Spectral Doppler. Indication for study: Chest pain Cardiac Rhythm: Sinus tachycardia.Study quality: Technically limited. Imaging limitations: This study was subject to imaging limitations due tobody habitus. Final Impressions: 1. Technically limited exam. 2. Normal LV function with EF of 64%. 3. Right ventricular cavity size is moderately enlarged, global systolicRV function is normal. 4. Echo contrast was administered to enhance visualization of all leftventricular segments. 5. The mitral valve is not well visualized, no mitral regurgitation. 6. The aortic valve is not well visualized, no stenosis and noregurgitation. Chamber Sizes and Function No resting regional wall motion abnormality visualized. Left atrial sizeis normal. Left atrial pressure is normal. Right ventricular cavity sizeis moderately enlarged, global systolic RV function is normal. The rightatrium is normal. Right atrial volume index is 24 ml/m . Right atrialarea is 15 cm . The pulmonary artery is not well visualized. The sinus ofValsalva is normal sized. The ascending aorta is normal sized. Valves, RV Pressures and Diastolic Function The aortic valve is not well visualized , no stenosis and noregurgitation. The mitral valve is not well visualized, no mitralregurgitation. Mitral annular calcification is present. Normal diastolicfunction. The tricuspid valve is not well visualized and regurgitation isnot evident tricuspid regurgitation. The pulmonic valve is not wellvisualized. Unable to determine pulmonary regurgitation. Masses, Effusion, Shunts There is no pericardial effusion. The inferior vena cava is normal sized,respiratory size variation less than 50%. No left to right shunting wasdetected by limited color flow Doppler interrogation of the interatrialseptum. MEASUREMENTS AND CALCULATIONS 2-D Measurements and LV Function: Ao Sinus 2.3 cm Planimetered EF 64% Ao Sinus ULN 3.7 cm * LVOT diameter1.8 cm Asc Ao 2.7 cm HR110 bpm Asc Ao ULN 3.7 cm * LA Vol index 15ml/m2 * Input BSA outside of range, reported values RA Vol index 24ml/m2 correspond to BSA = 1.9 RA area 15cm RV Basal Diam4.2 cm Diastology: Mitral Tissue Doppler E Peak 1.3 m/s e', Septum 0.08 m/s A Peak 0.5 m/s e', Lateral 0.11 m/s E/A 2.8 E/e' Average 13.80 DT 130 msec Aortic Valve: Vmax 1.3 m/s JAZMINE (V) 2.78 cm VTI 0.24 m JAZMINE (I) 2.51 cm LVOT V max 1.4 m/s Max PG 7 mmHg LVOT VTI 0.22 m Mean PG 4 mmHg SV 59 ml Dim Index 0.94 SV index 30 ml/m CO 6.5 l/min CI 3.3 l/min/m Mitral Valve: MVA 5.8 cm MV P 1/2 38 msec MV Mean G 5 mmHg MV VTI 0.25 m Tricuspid Valve and estimated PA pressures: TAPSE 1.9 cm Contrast documentation: 2 ml diluted Definity, lot #[id number], [facility]#[id number] was administered peripherally to enhance visualization of allleft ventricular segments. . This study was interpreted by an [facility] accredited facility. CC: HIM (med records) [facility], Med/Surg - IP [facility]. Final us Derick Mendieta MD ECHO ORD Final Resu lt * SCAN-LABORATORY REPORT (07/11/2024 12:00 AM HEALTH CENTER MANAGER) us Scanner OTHER Final Result * COVID/FLU/RSV PANEL (06/03/2024 2:37 PM HEALTH CENTER MANAGER) COVID 19 [facility] Negative Negative 06/03/2024 11:44 PM HEALTH CENTER MANAGER [facility] Comment:All PCR tests are lopez bject to false negative result due to variability in viral load and collection technique. A negative result does not rule out a SARS-CoV-2 infection. Clinical correlation required. INFLUENZA A PCR Negative 11:44 PM HEALTH CENTER MANAGER [facility] INFLUENZA B PCR Negative 11:44 PM HEALTH CENTER MANAGER [facility] TRAL [facility] Respiratory Syncytial Virus Negative 06/03/2024 11:44 PM HEALTH CENTER MANAGER [facility] TR[facility] Swab NASOPHARYNGEAL SWAB / Unknown Non-Blood / Unknown 06/03/2024 2:37 PM HEALTH CENTER MANAGER 06/03/2024 2:38 PM HEALTH CENTER MANAGER us Geronimo Lamb MD MICROBIOLOGY Final Result [facility] [address] [place] [address], [place] * [place] HEPATOBILIARY IMAGING (05/10/2024 1:58 PM HEALTH CENTER MANAGER) Anatomical Region Laterality Modality LIVER Nuclear Medicine 05/10/2024 1:58 PM HEALTH CENTER MANAGER Impressions 05/10/2024 2:21 PM HEALTH CENTER MANAGER Negative for acute cholecystitis. Narrative 05/10/2024 2:21 PM HEALTH CENTER MANAGER For Patients: As a result of the Cures Act, medical imaging exams and procedure reports are released immediately into your electronic medical record. You may view this report before your referring provider. If you have questions, please contact your health care provider. EXAM: [place] HEPATOBILIARY IMAGING LOCATION: [facility] MEDICAL IMAGING DATE: 05/10/2024 INDICATION: Right upper [...] please contact your health care provider. EXAM: [place] HEPATOBILIARY IMAGING LOCATION: [facility] MEDICAL IMAGING DATE: 05/10/2024 INDICATION: Right upper [...] * SCAN CORRESP-LABORATORY RESULTS (05/10/2024 10:49 AM HEALTH CENTER MANAGER) Narrative 05/10/2024 10:49 AM HEALTH CENTER MANAGER Ordered by an unspecified provider. us Other Clinical Staff OTHER Final Resul t * SCAN CORRESP-IMAGING (05/10/2024 10:43 AM HEALTH CENTER MANAGER) Anatomical Region Laterality Modality Other Narrative 05/10/2024 10:43 AM HEALTH CENTER MANAGER Ordered by an unspecified provider. us Other Clinical Staff OTHER Final Resul t * PLATELET COUNT (05/10/2024 6:26 AM HEALTH CENTER MANAGER) PLATELET COUNT 202 140 - 440 thou/cu mm 05/10/2024 6:48 AM HEALTH CENTER MANAGER [facility] MPV 10.1 6.5 - 11.0 fL 05/10/2024 6:48 AM [facility] Blood BLOOD SPECIMEN / Unknown Venipuncture / Unknown 05/10/2024 6:26 AM HEALTH CENTER MANAGER 05/10/2024 6:37 AM HEALTH CENTER MANAGER Aron Birch DO HEMATOLOGY Final Result [facility] SENDOUT [place]NAL ZIP [address] [place] [address] * WHITE BLOOD COUNT (05/10/2024 6:26 AM HEALTH CENTER MANAGER) WHITE BLOOD COUNT 7.6 4.5 - 11.0 thou/cu mm 05/10/2024 6:48 AM HEALTH CENTER MANAGER [facility] NRBC 0.0 % 05/10/2024 6:48 AM HEALTH CENTER MANAGER [facility] ABS NRBC 0.0 thou /cu mm 05/10/2024 6:48 AM [facility] Blood BLOOD SPECIMEN / Unknown Venipuncture / Unknown 05/10/2024 6:26 AM HEALTH CENTER MANAGER 05/10/2024 6:37 AM HEALTH CENTER MANAGER Aron Birch DO HEMATOLOGY Final Result [facility] SENDOUT [place] [address]IP [id number] [place] [address] * HEMOGLOBIN (05/10/2024 6:26 AM HEALTH CENTER MANAGER) HEMOGLOBIN 12.4 12.0 - 16.0 g/dL 05/10/2024 6:48 AM HEALTH CENTER MANAGER [facility] MCV 92 80 - 100 fL 05/10/2024 6:48 AM [facility] Blood BLOOD SPECIMEN / Unknown Venipuncture / Unknown 05/10/2024 6:26 AM HEALTH CENTER MANAGER 05/10/2024 6:37 AM HEALTH CENTER MANAGER Aron Birch DO HEMATOLOGY Final Result [facility] SENDOUT [place] [address] [phone] [place] [address] * SODIUM (05/10/2024 6:26 AM HEALTH CENTER MANAGER) SODIUM 143 136 - 145 mmol/L 05/10/2024 7:23 AM HEALTH CENTER MANAGER [facility] Blood BLOOD SPECIMEN / Unknown Venipuncture / Unknown 05/10/2024 6:26 AM HEALTH CENTER MANAGER 05/10/2024 6:37 AM HEALTH CENTER MANAGER Aron Birch DO CHEMISTRY Final Result [facility] SENDOUT [place]NAL ZIP [phone] [place] [address] * POTASSIUM (05/10/2024 6:26 AM HEALTH CENTER MANAGER) POTASSIUM 3.8 3.5 - 5.1 mmol/L 05/10/2024 7:23 AM [facility] Blood BLOOD SPECIMEN / Unknown Venipuncture / Unknown 05/10/2024 6:26 AM HEALTH CENTER MANAGER 05/10/2024 6:37 AM HEALTH CENTER MANAGER Aron Birch DO CHEMISTRY Final Result Performing Organization Address City/[facility]/ZIP Co de Phone Number [facility] SENDOUT INTERNAL ZIP [phone] [place] [address] * CREATININE (05/10/2024 6:26 AM HEALTH CENTER MANAGER) eGFR >90 >90 mL/min/1.7 3m2 05/10/2024 7:23 AM [facility] Comment:As of 2021, eG FR is calculated by the CKD-EPI creatinine equation without race adjustment. eGFR can be influenced by muscle mass, exercise, and diet. The reported eGFR is an estimation only and is only applicable if the renal function is stable. CREATININE 0.73 0.50 - 0.90 mg/dL 05/10/2024 7:23 AM [facility] Blood BLOOD SPECIMEN / Unknown Venipuncture / Unknown 05/10/2024 6:26 AM HEALTH CENTER MANAGER 05/10/2024 6:37 AM HEALTH CENTER MANAGER Aron Birch DO CHEMISTRY Final Result Performing Organization Address City/[facility]/ZIP Co de Phone Number [facility] SENDOUT INTERNAL ZIP [phone] [place] [phone] * PROTIME-INR (05/10/2024 6:26 AM HEALTH CENTER MANAGER) INR 1.1 <1.3 05/10/2024 6:52 AM HEALTH CENTER MANAGER [facility] PROTIME 12.2 10.6 - 12.4 sec 05/10/2024 6:52 AM HEALTH CENTER MANAGER [facility] Blood BLOOD SPECIMEN / Unknown Venipuncture / Unknown 05/10/2024 6:26 AM HEALTH CENTER MANAGER 05/10/2024 6:37 AM HEALTH CENTER MANAGER Narrative [facility] - 05/10/2024 6:52 AM HEALTH CENTER MANAGER Therapeutic Range 2.0-3.0 for most anticoagulated patients [...] HEMATOLOGY Final Result Performing Organization Address City/[facility]/ZIP Co de Phone Number [facility] SENDOUT INTERNAL ZIP [phone] [place] [phone] * (ABNORMAL) HEPATIC FUNCTION PANEL (05/10/2024 6:26 AM HEALTH CENTER MANAGER) ALBUMIN 3.6(L) 4.0 - 4.9 g/dL 05/10/2024 7:23 AM HEALTH CENTER MANAGER [facility] PROTEIN,TOTAL 6.5 6.0 - 8.0 g/dL 05/10/2024 7:23 AM HEALTH CENTER MANAGER [facility] BILIRUBIN,TOTAL 0.4 0.0 - 1.2 mg/dL 05/10/2024 7:23 AM HEALTH CENTER MANAGER [facility] BILIRUBIN,DIRECT 0.2 0.0 - 0.2 mg/dL 05/10/2024 7:23 AM [facility] BILIRUBIN,INDIRE CT 0.2 0.2 - 0.8 mg/dL 05/10/2024 7:23 AM [facility] ALK PHOSPHATASE 82 35 - 104 IU/L 05/10/2024 7:23 AM [facility] ALT (SGPT) 30 10 - 35 IU/L 05/10/2024 7:23 AM [facility] AST (SGOT) 26 10 - 35 IU/L 05/10/2024 7:23 AM [facility] Blood BLOOD SPECIMEN / Unknown Venipuncture / Unknown 05/10/2024 6:26 AM HEALTH CENTER MANAGER 05/10/2024 6:37 AM [facility] us Aron Birch DO CHEMISTRY Final Result [facility] SENDOUT INTERNAL ZIP [phone] [place] [address] * SCAN-ULTRASOUND REPORT (05/09/2024 12:00 AM HEALTH CENTER MANAGER) Anatomical Region Laterality Modality Other us Scanner OTHER Final Result * (ABNORMAL) LIPID PANEL W REFLEX MEASURED LDL (01/20/2024 4:00 PM CDT) CHOLESTEROL,TOTAL 261(H) 100 - 199 mg/dL 01/21/2024 1:44 PM CDT [facility] Comment: Cholesterol, Total Reference Ranges Desirable <200 mg/dL Borderline 200-239 mg/dL High >=240 mg/dL TRIGLYCERIDES 252(H) <150 mg/dL 01/21/2024 1:44 PM CDT [facility] HDL CHOLESTEROL 50 >40 mg/dL 1:44 PM CDT [facility] NON-HDL CHOLESTEROL 211(H) <145 mg/dl 01/21/2024 1:44 PM CDT [facility] CHOL/HDL RATIO 5.22(H) <4.50 01/21/2024 1:44 PM CDT [facility] LDL CHOLESTEROL 161(H) <=130 mg/dL 01/21/2024 1:44 PM CDT [facility] VLDL CHOLESTEROL 50(H) <=30 mg/dL 01/21/2024 1:44 PM CDT [facility] PROVIDER ORDERED STATUS RANDOM 01/21/2024 1:44 PM CDT [facility] Blood BLOOD SPECIMEN / Unknown Venipuncture / Unknown 01/20/2024 4:00 PM CDT 01/20/2024 4:00 PM CDT Geronimo Lamb MD CHEMISTRY Final Result [facility] [address] [place] [address], [place] * ANTI HIV 1/2 (05/01/2022 4:36 PM HEALTH CENTER MANAGER) HIV-1/HIV-2 ANTIBODY Non-Reacti ve Non-Reacti ve 05/04/2022 9:59 PM HEALTH CENTER MANAGER [facility] Comment:HIV-1 p24 and HIV-1/ HIV-2 Ab not detected. Blood BLOOD SPECIMEN / Unknown Butterfly / Unknown 05/01/2022 4:36 PM HEALTH CENTER MANAGER 05/01/2022 4:41 PM HEALTH CENTER MANAGER us Geronimo Lamb MD SEND OUTS Final Result [facility] [address] [place] [address], [place] * ANTI HCV (12/05/2021 9:30 AM CDT) HEPATITIS C ANTIBODY Non-React shikha Non-React shikha 12/05/2021 9:16 PM CDT [facility] Comment:Antibodies to HCV no t detected; does not exclude the possibility of exposure to HCV. Blood BLOOD SPECIMEN / Unknown Venipuncture / Unknown 12/05/2021 9:30 AM CDT 12/05/2021 9:33 AM CDT us Geronimo Lamb MD SEND OUTS Final Result [facility] [address] [place] [address], [place] * SCAN-MAMMOGRAPHY REPORT (02/24/2019 12:00 AM CDT) Anatomical Region Laterality Modality Other us Scanner OTHER Final Result from Last 3 Months or Most Recently Relevant to Health Maintenance Insurance [facility] MEDICARE PART A HB ONLY Advance Directives * Full Code (Latest Code Status on File) Date Activated Date Inactivated Comments 05/09/2024 10:07 PM 05/11/2024 4:49 PM Question Answer Comments Code Status Discussion: Reviewed Preferences Care Teams Head Banquet Waiter/Waitress Relationship Specialty Start Date End Date Geronimo Lamb MD [address] [place] [address] PCP - General Family Practice 04/23/21 Paolo Limon MD Sleep Medicine 10/28/11 Talon Durham MD Neurology Neurology 11/26/11 Laura Gardner PsyD, [facility] Psychology 09/14/13 [place] [address] [place] [address] Pulmonology Pulmonary Medicine 01/22/24
--- OUTSIDE RECORDS SUMMARY | 2024-08-05 17:56 | XMS_ITS | Clinical Summary ---
Author Organization [facility] Address [address] , [address] [place] [address] Phone Care Team Providers Care Cast Iron Dipper Name Role Phone Son Jara MD Conditions or Problems Problem Name Problem Code Onset Date Status Entry Date Provider Comment Standard Description Annotate Involuntary movements 973519320 (SNOMED CT) Active Son Jara MD Abnormal involuntary movement Tremor [id number] (SNOMED CT) Active Son Jara MD Tremor Medications Medication Instructions Start Date Stop Date Generic Name ND Provider SOLIFENACIN SUCCINATE 10 MG TABS Take 1 Tablet (10 mg) by mouth once daily. solifenacin (VESICARE) 10 mg tablet [id number] Son Jara MD PROCHLORPERAZINE MALEATE 5 MG TABS Take 1 Tablet (5 mg) by mouth every 8 hours if needed for Nausea/Vomitin g. prochlorperazine (COMPAZINE) 5 mg tablet [id number] Son Jara MD OMEPRAZOLE 20 MG CPDR Take 2 Capsules (40 mg) by mouth once daily before a meal. omeprazole (PriLOSEC) 20 mg Delayed-Release capsule [id number] Son Jara MD MONTELUKAST SODIUM 10 MG TABS Take 1 Tablet (10 mg) by mouth at bedtime. montelukast (SINGULAIR) 10 mg tablet [id number] Son Jara MD mirabegron EXTENDED-release (MYRBETRIQ) 50 mg tablet Take 1 Tablet (50 mg) by mouth once daily. mirabegron EXTENDED-release (MYRBETRIQ) 50 mg tablet Son Jara MD MECLIZINE HCL 25 MG TABS Take 0.5 Tablets (12.5 mg) by mouth 3 times daily if needed for Nausea/Vomitin g. meclizine (ANTIVERT) 25 mg tablet [id number] Son Jara MD LEVOTHYROXINE SODIUM 175 MCG TABS Take 1 Tablet (175 mcg) by mouth before breakfast. levothyroxine (SYNTHROID) 175 mcg tablet [id number] Son Jara MD FEXOFENADINE HCL 180 MG TABS Take 1 tablet by mouth once daily with a meal. fexofenadine (ROJAS) 180 mg tablet [id number] Son Jara MD DIPHENHYDRAMINE HCL 25 MG CAPS Take 1 capsule by mouth each time if needed. diphenhydrAMINE (BENADRYL) 25 mg capsule [id number] Son Jara MD VITAMIN D 50 MCG (2000 UT) TABS Take 2,000 units by mouth. cholecalciferol, Vitamin D3, 2,000 unit tablet [id number] Son Jara MD BUPROPION HCL ER (XL) 150 MG PQ20M-ROT null buPROPion (WELLBUTRIN XL) 150 mg Extended-Release tablet [id number] Son Jara MD IPRATROPIUM-ALBUTE ROL 0.5-2.5 (3) MG/3ML SOLN Inhale 3 mL via a nebulizer 2 times daily if needed for Shortness of Breath 1st choice or Wheezing 1st choice. albuterol-ipratrop ium (DUONEB) (2.5-0.5 mg) in 3 mL NEBULIZA [id number] Son Jara MD ALBUTEROL SULFATE HFA 108 (90 Base) MCG/ACT AERS Inhale 1-2 Puffs by mouth every 4 hours if needed for Shortness of Breath 1st choice. albuterol HFA (ProAir HFA) 90 mcg/actuation inhaler [id number] Son Jara MD ALBUTEROL SULFATE (2.5 MG/3ML) 0.083% NEBU Inhale 3 mL via a nebulizer every 6 hours if needed for Shortness Of Breath or Wheezing. albuterol (PROVENTIL) 0.083 % neb solution [id number] Son Jara MD SYMBICORT 160-4.5 MCG/ACT AERO null Symbicort 160-4. 5 mcg/actuation (160-4.5 mcg each actuation) [id number] Son Jara MD PAROXETINE HCL 40 MG TABS null PARoxetine (PAXI L) 40 mg tablet [id number] Son Jara MD Medications Administered No information [...] Date ORDERS EEG Sleep Deprived (41min) 2 [id number]-84566 EEG EXTENDED 41-60mins (END) [id number] Documentation of current medicatio ns ORDERS Patient Instructions Vital Signs No information available. Immunizations No information available. Advance Directives No information available.
--- NOTE | 2024-08-05 18:33 | CRLHL7_ITS ---
For Patients: As a result of the Century Cures Act, medical imaging exams and procedure reports are released immediately into your electronic medical record. You may view this report before your referring provider. If you have questions, please contact your health care provider. INDICATION: Leg pain and swelling. TECHNIQUE: Ultrasound venous duplex lower left extremity. Compression venous exam was performed using hodge-scale, color Doppler, and spectral Doppler analysis. COMPARISON: None. FINDINGS: Deep veins: Sonographic imaging demonstrates the left common femoral, deep femoral, superficial femoral, popliteal, posterior tibial and the contralateral right common femoral veins to be fully compressible with normal color Doppler blood flow. Superficial veins: Greater saphenous vein is fully compressible. No popliteal cyst. IMPRESSION: Normal left lower extremity venous ultrasound, no sign of deep venous thrombosis. Dictated by Garrick Adkins MD @ 08/05/2024 7:27:45 PM (Electronically Signed)
--- NOTE | 2024-08-05 18:34 | CRLHL7_ITS ---
For Patients: As a result of the Century Cures Act, medical imaging exams and procedure reports are released immediately into your electronic medical record. You may view this report before your referring provider. If you have questions, please contact your health care provider. Indication: Shortness of breath Technique: CT angiogram of the chest was performed for evaluation of pulmonary embolism. 95 mL of Isovue 370 intravenous contrast was administered. Comparison: 07/30/2024, 07/24/2024. Findings: Slightly suboptimal examination secondary to habitus. CARDIOVASCULAR: Diagnostic quality: Contrast opacification of the pulmonary arterial circulation is adequate for assessment of pulmonary embolism. Study is not significantly limited by respiratory motion artifact. Pulmonary arteries: No filling defects to suggest pulmonary embolism. Enlarged, measuring 3.5 centimeter in diameter (4/72). Heart: No interventricular septal deviation. Normal in size. No significant coronary artery calcification. No significant valvular calcification. Pericardium: No pericardial effusion. Thoracic aorta: No significant abnormality. Normal cervical branching. REMAINING CHEST: Medical devices: None. Thyroid: Normal. Lymph nodes: No supraclavicular, axillary, mediastinal, or hilar lymphadenopathy. Nonspecific mildly prominent mediastinal and bilateral axillary lymph nodes are favored to be reactive. Other mediastinal structures: No significant abnormality. Lung parenchyma: Ftzq-yv-uariadyg patchy bilateral ground-glass airspace opacities and scattered areas of consolidation. Scattered calcified granulomas. Airways: No significant abnormality. Pleura: No significant abnormality. Chest wall: No significant abnormality. Upper abdomen: Cholelithiasis. Musculoskeletal: No significant abnormality. Impression: 1. Slightly suboptimal examination secondary to habitus. 2. No acute pulmonary emboli. 3. Enlarged main pulmonary artery, which may be seen in setting of pulmonary hypertension. 4. Lfjh-ru-tjscwrie patchy bilateral ground-glass airspace opacities and scattered areas of consolidation may represent atypical infection. Please note that all CT scans at this facility use dose modulation, iterative reconstruction, and/or weight-based dosing when appropriate to reduce radiation dose to as low as reasonably achievable. Dictated by Rocky Mars MD @ 08/05/2024 7:55:19 PM (Electronically Signed)
[2024-08-05] MEDS: IPRAT-ALBUT 0.5-2.5 MG/3 ML NEB 1 NEB IH ×2 (18:48→22:44)
[2024-08-05 19:14] LABS: Lactate Sepsis w/Reflex* 0.7 mmol/L (0.5-1.9)
[2024-08-05 19:17] LABS: Creatinine, Point-of-Care* 0.9 mg/dl (0.6-1.3)
--- NOTE | 2024-08-05 19:30 | ED.GENADULT ---
HPI - General Adult General Date Seen: 08/05/24 Chief complaint: Weakness Stated complaint: SOB Time Seen by Provider: 08/05/24 18:16 Source: patient Mode of arrival: EMS Limitations: no limitations History of Present Illness HPI narrative: Patient is a 49-year-old female who is chronically on oxygen with history of COPD and recent hospitalization for RSV presenting to the emergency department for weakness and shortness of breath. She was admitted to the hospital on 07/23/2024 and discharged on 07/27/2024 for RSV. This was causing acute on chronic respiratory failure with hypoxia and hypercapnia. Was discharged back to her assisted living at her baseline 2 L nasal cannula. She states she was doing okay but was seen again 3 days later on 07/30/2024 for shortness of breath. She was discharged from the emergency department at that time. She states she has been doing well and ambulating with her walker up until yesterday when she states she started feeling much more short of breath and weak. Symptoms persisted to today and she required an assistive 3 to get it to the bathroom. Typically she is able to ambulate by herself with her walker. Just feels much more short of breath. Does think her DuoNebs were helping. Quit smoking 10 years ago. Has not noticed any fevers or chills. Denies chest pain, abdominal pain, headache. Does states she feels mildly lightheaded. Is not aware of any other sick contacts. She states she feels like she is Decompensating. Does states she has been less active these past few weeks and has noticed increased swelling to her left lower extremity. Related Data Home Medications ?Medication ?Instructions ?Recorded ?Confirmed albuterol sulfate 90 mcg/actuation 1 - 2 puff inhalation Q4H PRN 11/30/21 07/23/24 aerosol inhaler mirabegron 50 mg tablet,extended 50 mg PO DAILY 11/30/21 07/23/24 release 24 hr (Myrbetriq) montelukast 10 mg tablet 10 mg PO HS 11/30/21 07/23/24 omeprazole 20 mg capsule,delayed 40 mg PO DAILY 02/26/22 07/23/24 release levetiracetam 750 mg tablet 750 mg PO BID 11/25/22 07/23/24 ([place]) cholecalciferol (vitamin D3) 50 50 mcg PO DAILY 01/30/23 07/23/24 mcg (2,000 unit) capsule paroxetine HCl 40 mg tablet 40 mg PO DAILY 01/30/23 07/23/24 levothyroxine 100 mcg tablet 100 mcg PO DAILY 10/16/23 07/23/24 potassium chloride 10 mEq 20 meq PO DAILY 10/16/23 07/23/24 tablet,extended release aluminum-mag hydroxide-simethicone 5 - 10 ml PO 5XD PRN 03/20/24 07/23/24 200 mg-200 mg-20 mg/5 mL oral susp (Maalox Advanced) dextromethorphan HBr 10 mg/5 mL 5 - 10 mg PO Q4-6H PRN 03/20/24 07/23/24 oral syrup diphenhydramine HCl 25 mg capsule 25 mg PO DAILY PRN 03/20/24 07/23/24 (Banophen) ibuprofen 200 mg capsule 200 - 400 mg PO Q4-6H PRN 03/20/24 07/23/24 loperamide 2 mg tablet 1 mg PO Q6H PRN 03/20/24 07/23/24 (Anti-Diarrheal (loperamide)) magnesium hydroxide 400 mg/5 mL 15 - 30 ml PO DAILY PRN 03/20/24 07/23/24 oral suspension (Milk of Vringo) terbinafine HCl 1 % topical cream 1 applic topical BID 03/20/24 07/23/24 famotidine 20 mg tablet 20 mg PO BID 07/23/24 07/23/24 fluticasone propionate 50 2 spray intranasal DAILY 07/23/24 07/23/24 mcg/actuation nasal spray,suspension furosemide 20 mg tablet 20 mg PO BID@08,12 07/23/24 07/23/24 ipratropium 0.5 mg-albuterol 3 mg 1 ml inhalation TID 07/23/24 07/23/24 (2.5 mg base)/3 mL nebulization soln mirtazapine 15 mg tablet 15 mg PO HS 07/23/24 07/23/24 Previous Rx's ?Medication ?Instructions ?Recorded budesonide-formoterol HFA 160 2 puff inhalation BID #1 g 02/02/23 mcg-4.5 mcg/actuation aerosol inhaler (Symbicort) Allergies Allergy/AdvReac Type Severity Reaction Status Date / Time azithromycin Allergy Intermediate Bloody Verified 08/05/24 19:44 Stools latex Allergy Intermediate Rash Verified 08/05/24 19:44 oxycodone Allergy Intermediate Agitated Verified 08/05/24 19:44 scopolamine Allergy Intermediate Tremors Verified 08/05/24 19:44 basil Allergy Rash Verified 08/05/24 19:44 Review of Systems Status of ROS: Reports: 10 or more systems reviewed and unremarkable except as noted in History and below [facility] Medical History Hypercarbia ?R06.89 - Other abnormalities of breathing (ICD-10) Hypothyroidism ?E03.9 - Hypothyroidism, unspecified (ICD-10) Acute and chronic respiratory failure with hypoxia ?J96.21 - Acute and chronic respiratory failure with hypoxia (ICD-10) 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 - Unspecified convulsions (ICD-10) RODRICK (obstructive sleep apnea) ?G47.33 - Obstructive sleep apnea (adult) (pediatric) (ICD-10) ADHD ?F90.9 - Attention-deficit hyperactivity disorder, unspecified type (ICD-10) Hyperthyroidism ?E05.90 - Thyrotoxicosis, unspecified without thyrotoxic crisis or storm (ICD-10) Hydrocephalus ?G91.9 - Hydrocephalus, unspecified (ICD-10) Hyperlipidemia ?E78.5 - Hyperlipidemia, unspecified (ICD-10) Anxiety and depression ?F41.9 - Anxiety disorder, unspecified (ICD-10) ?F32.A - Depression, unspecified (ICD-10) Asthma ?J45.909 - Unspecified asthma, uncomplicated (ICD-10) Surgical History History of ear surgery ?Z98.890 - Other specified postprocedural states (ICD-10) History of strabismus surgery ?Z98.890 - Other specified postprocedural states (ICD-10) Social History Narrative: on disability since 2009; lives alone with her cat. nonsmoker, no drugs, no significant tobacco history adopted, her two adopted aunts are her family contacts. What is your current living situation?: I presently have a place to live Problems where you live: no known problems Problems where you live details: none In the past 12 months, utilities in danger of being shut off: no In past 12 months, lack of transportation kept you from medical appts, meetings, work, or getting things needed for daily living: no In the past 12 mos, have been you worried that your food would run out before you had money to buy more?: never true In the past 12 mos, the food you bought just didn't last and you didn't have money to buy more?: never true Highest level of school completed/degree received: Associate degree: academic program Smoking Status: Never smoker Do you use any of these nicotine containing products: None Second hand tobacco smoke exposure: Yes How often do you have a drink containing alcohol: never How often do you have six or more drinks on one occasion: Never AUDIT-C Alcohol total score: 0 Non-prescribed substance use: denies use Caffeine: Yes How often does anyone, including family, friends and others, physically hurt you: never How often does anyone, including family, friends and others, insult or talk down to you: never How often does anyone, including family, friends and others, threaten you with harm: never How often does anyone, including family, friends and others, scream or curse at you: never service: No Exam Narrative: Exam Narrative: Const: Well-nourished, Well-developed, in mild distress Eyes: PERRL, no conjunctival injection, and symmetrical lids HENT: Atraumatic external nose and ears. Moist mucous membranes. Neck: Symmetric, trachea midline, No thyromegaly. CVS: RRR, No murmurs or gallops. Peripheral pulses 2+ and equal in all extremities, +1 lower left extremity pitting edema up to the ankle RESP: Unlabored respiratory effort. Decreased air movement diffusely GI: Nontender/Nondistended, No rebound or guarding. MSK:Extremities w/o deformity, Normal Active ROM Skin: Warm, Dry. No rashes or lesions. Neuro: Normal Muscle tone, No focal neurological deficits. Psych: Awake, Alert, & Oriented x3. Appropriate mood and affect. Const: Vital Signs, click to edit/add: Vital Signs - 24 hr 08/05/24 18:05 08/05/24 18:57 08/05/24 19:38 Temperature Pulse Rate 111 H Pulse Rate [Pulse Oximeter] 112 H Respiratory Rate 28 H 24 Blood Pressure 133/75 Pulse Oximetry 78 L 89 89 Oxygen Delivery Me thod Room Air Nasal Cannula Nasal Cannula Oxygen Flow Rate 3 3 08/05/24 19:57 Temperature 98.8 F Pulse Rate Pulse Rate [Pulse Oximeter] Respiratory Rate Blood Pressure Pulse Oximetry Oxygen Delivery Me thod Oxygen Flow Rate Course Vital Signs Vital signs: Initial Vital Signs Temperature Source Temporal Artery Scan 08/05/24 18:05 Pulse Rate 112 H 08/05/24 18:05 Respiratory Rate 28 H 08/05/24 18:05 Blood Pressure Position Sitting 08/05/24 18:05 Pulse Oximetry 78 L 08/05/24 18:05 Oxygen Delivery Method Room Air 08/05/24 18:05 Vital Signs Pulse Rate 112 H 08/05/24 18:05 Respiratory Rate 28 H 08/05/24 18:05 Pulse Oximetry 78 L 08/05/24 18:05 Oxygen Delivery Method Room Air 08/05/24 18:05 Temperature 98.8 F 08/05/24 19:57 Pulse Rate 111 H 08/05/24 19:38 Respiratory Rate 24 08/05/24 19:38 Blood Pressure 133/75 08/05/24 19:38 Pulse Oximetry 89 08/05/24 19:38 Oxygen Delivery Method Nasal Cannula 08/05/24 19:38 Oxygen Flow Rate 3 08/05/24 19:38 Medications Administered Medications: Generic Name Dose Route Start Last Admin Trade Name Freq PRN Reason Stop Dose Admin Sodium Chloride 1,000 mls @ 1,000 mls/hr 08/05/24 19:45 08/05/24 19:46 0.9 % Sodium Chloride 1000 Ml IV 08/05/24 20:44 1,000 mls/hr .Q1H GORDY Administration Discontinued Medications Generic Name Dose Route Start Last Admin Trade Name Freq PRN Reason Stop Dose Admin Albuterol/Ipratropium 1 neb 08/05/24 18:34 08/05/24 18:48 Iprat-Albut 0.5-2.5 Mg/3 Ml Neb IH 08/05/24 18:35 1 neb ONCE ONE Administration Medical Decision Making MDM Narrative Medical decision making narrative: Patient is a 49-year-old female presenting for weakness and shortness of breath. She states her sister living does not believe they can manage her at this time. Differential for her is broad at this time. With the mild swelling to the left lower extremity there is some concerned she could have DVT leading to a PE. Will do an ultrasound of left lower extremity and a CTA chest. This also look for pneumonia or pneumothorax. Will swab her for COVID/flu/RSV. EKG and troponin will be ordered for ACS. Will also order CBC to look for other signs of infection along with a magnesium and CMP to look for signs of electrolyte abnormalities or kidney dysfunction. BNP ordered for possible heart failure. DuoNebs ordered as this may be related to a COPD exacerbation. She is tachycardic and tachypneic so I will order a lactate and blood cultures. Will hold off on sepsis fluids at this time as she does not appear to be overtly dehydrated. Will though still give 1 L of fluids in the meantime. Lactate within normal limits. Rest of her lab work shows no clear concerning abnormalities. White blood cell count is slightly elevated at 12.21. EKG and troponin showed no concerning abnormalities. Viral swabs are negative. After the DuoNeb she states her breathing feels better but I still cannot hear much air movement. This may be chronic for her. Nursing staff noted her oxygen dipped and raised her to 3L NC. She is satting 94% now. Ultrasound of the leg showed no signs of blood clots. CTA shows no signs of blood clots but there does appear to be some new consolidations compared to her CT scan 6 days ago. This is likely new pneumonia. Will order broad-spectrum antibiotics due to her recent hospitalization. At this point I do believe she should be admitted. The hospitalist is agreeable to this plan. Lab Data Labs: Lab Results 08/05/24 08/05/24 08/05/24 Range/Units 19:00 19:10 19:53 WBC 12.21 H (4.50-11.00) K/uL RBC 3.71 L (4.00-5.20) m/uL Hgb 10.7 L (12.0-16.0) gm/dL Hct 36.7 (33.0-51.0) % MCV 99 (80-100) fL MCH 29 (26-34) pg MCHC 29 L (32-36) gm/dL RDW Coeff of Tomy 14.3 (11.5-15.5) % Plt Count 275 (140-440) K/uL Neut % (Auto) 81.2 H (42.0-72.0) % Lymph % (Auto) 10.9 L (20-44) % Vernon % (Auto) 4.6 (0.0-11.0) % Eos % (Auto) 1.6 (0.0-7.0) % Baso % (Auto) 0.3 (0.0-3.0) % Neut # (Auto) 9.90 H (1.7-7.0) K/uL Lymph # (Auto) 1.30 (0.90-2.90) K/uL Vernon # (Auto) 0.60 (0.00-0.90) K/UL Eos # (Auto) 0.20 (0.00-0.50) K/uL Baso # (Auto) 0.00 (0.00-0.30) K/uL Abs Immat Gran (auto) 0.20 (0.00-0.30) K/uL Imm/Tot Granulo (auto) 1.4 % Sodium 140 (135-149) mmol/L Potassium 3.9 (3.6-5.1) mmol/L Chloride 92 L (96-114) mmol/L Carbon Dioxide 39 H (20-32) mmol/L Anion Gap 9 (7-15) mEq/L BUN 14 (5-24) mg/dL Creatinine 0.7 (0.5-1.5) mg/dL Estimated Creat Clear 174.30 Estimated GFR 107 ml/min Glucose 140 H (60-115) mg/dL Lactate 0.7 (0.5-1.9) mmol/L Calcium 8.6 (8.4-10.6) mg/dL Magnesium 1.9 (1.5-2.6) mg/dL Total Bilirubin 0.4 (0.1-1.5) mg/dL AST 20 (12-35) U/L ALT 30 (4-35) U/L Alkaline Phosphatase 99 (40-150) U/L Troponin I < 0.01 L (0.01-0.04) ng/mL NT-Pro-B Natriuret Pep 412 pg/mL Total Protein 7.3 (6.0-8.3) g/dL Albumin 4.0 (3.3-5.0) g/dL SARS-CoV-2 (PCR) Negative SARS-CoV-2 (Negative) Influenza Type A (PCR) Negative PCR FLU A (Negative) Influenza Type B (PCR) Negative PCR FLU B (Negative) RSV (PCR) Negative PCR RSV (Negative) Lab Acknowledgement Test Added POC Creatinine 0.9 (0.6-1.3) mg/dl Imaging Data Venous US: Attestation: I have reviewed the pertinent imaging results. Radiologist's impression: Normal left lower extremity venous ultrasound, no sign of deep venous thrombosis. Dictated by Garrick Adkins MD @ 08/05/2024 7:27:45 PM CTA Chest: Attestation: I have reviewed the pertinent imaging results. Radiologist's impression: 1. Slightly suboptimal examination secondary to habitus. 2. No acute pulmonary emboli. 3. Enlarged main pulmonary artery, which may be seen in setting of pulmonary hypertension. 4. Kuzh-me-chpwwnwm patchy bilateral ground-glass airspace opacities and scattered areas of consolidation may represent atypical infection. Please note that all CT scans at this facility use dose modulation, iterative reconstruction, and/or weight-based dosing when appropriate to reduce radiation dose to as low as reasonably achievable. Dictated by Rocky Mars MD @ 08/05/2024 7:55:19 PM ECG Data Attestation: I personally reviewed and interpreted this ECG as follows: Prior ECG tracings: available for review Interpretation: Sinus tachycardia with a rate of 109 beats per minute, normal intervals, normal axis, no ST or T-wave abnormalities. Appears similar to previous EKGs on file Discharge Plan Discharge Clinical Impression: Pneumonia Qualifiers: Pneumonia type: due to unspecified organism Laterality: unspecified laterality Lung location: unspecified part of lung Qualified Code(s): J18.9 - Pneumonia, unspecified organism Patient Disposition: Admitted As Observation Condition: Stable
[2024-08-05 19:33] LABS: Chloride* 92 mmol/L (96-114); Sodium* 140 mmol/L (135-149)
[2024-08-05 19:34] LABS: Potassium* 3.9 mmol/L (3.6-5.1)
[2024-08-05 19:36] LABS: Alanine Aminotransferase* 30 U/L (4-35); Alkaline Phosphatase* 99 U/L (40-150); Aspartate Amino Transferase* 20 U/L (12-35); Bilirubin Total* 0.4 mg/dL (0.1-1.5); Blood Urea Nitrogen* 14 mg/dL (5-24); Calcium* 8.6 mg/dL (8.4-10.6); Creatinine* 0.7 mg/dL (0.5-1.5); Estimated Glomerular Filt Rate 107 ml/min; Glucose* 140 mg/dL (60-115); Total Protein* 7.3 g/dL (6.0-8.3)
[2024-08-05 19:37] LABS: Magnesium* 1.9 mg/dL (1.5-2.6)
[2024-08-05 19:43] LABS: Anion Gap 9 mEq/L (7-15); Carbon Dioxide* 39 mmol/L (20-32)
[2024-08-05] MEDS: 0.9 % SODIUM CHLORIDE 1000 ml 1,000 ML IV (19:46)
[2024-08-05 19:49] LABS: PCR FLU A Negative PCR FLU A (Negative); PCR FLU B Negative PCR FLU B (Negative); PCR RSV Negative PCR RSV (Negative); SARS PCR* Negative SARS-CoV-2 (Negative)
[2024-08-05 19:54] LABS: NT Pro B Type NatriureticPept* 412 pg/mL; Troponin I* < 0.01 ng/mL (0.01-0.04)
--- OUTSIDE RECORDS SUMMARY | 2024-08-05 20:02 | XMS_ITS | Clinical Summary ---
Author Organization [facility] Address [address] [place] [address] Care Team Providers Care Clicker Operator Name Role Phone Elsewhere, Pcp Primary Care Provider Unavailabl e Source Comments Patient records contain information from all sites at [facility]. For routine questions regarding patient records, call [phone] during business hours, M-F 8:00 AM - 5:00 PM Central Time. Record requests for emergency care only can be directed to [phone] at any time.[facility] Allergies Active Allergy Reactions Criticality Noted Date [...] Sex Assigned at Female 06/02/2018 2:11 PM LIFE SPECIALIST Legal Sex Female 5:08 AM LIFE SPECIALIST Gender Identity Female 06/02/2018 2:11 PM LIFE SPECIALIST Sexual Orientation Choose not to disclose 2018 2:11 PM LIFE SPECIALIST Last Filed Vital Signs Vital Sign Reading [...] this topic Medical Devices Implanted Type Area Broadcast Supervisor Device Identifier Shelf Expiration Date Model / Serial / Lot Ear Implant- [id number] Implanted:11/24 (Quantity not on file) Ear Implant Ear [facility] Bernice Vega TORP Plasti-pore [id number] / / [id number] Description:[facility], [place], [place]. Ear implant-Vega TOPR Plasti-pore MRI Safe Procedures Procedure Name Priority Date/Time Associated Diagnosis Comments THYROID-STIMULATING HORMONE-SENSITIVE (S-TSH) Routine 10/27/2018 3:42 PM CDT Hypothyroidism Primary BASIC METABOLIC PANEL, S/P Routine 03/11/2018 1:58 PM CDT Dizziness Diplopia LIPID PANEL, S Routine 06/10/2016 10:40 AM LIFE SPECIALIST from Last 3 Months or Most Recently Relevant to Health Maintenance Results * (ABNORMAL) S-TSH (Thyroid-Stimulating Hormone - Sensitive) (10/27/2018 3:42 PM CDT) TSH, Sensitive 10.7(H) 0.3 - 4.2 mIU/L 10/27/2018 5:20 PM CDT Comment: Biotin has been identified by the industrial locomotive operator as a potential interfering substance. Higher concentrations of biotin may be found in multivitamins, hair/nail supplements, and workout supplements. If the result does not match clinical observations, repeat testing after patient refrains from the use of supplements for at least 12 hours. Blood (Blood, Venous) 10/27/2018 3:42 PM CDT 10/27/2018 3:43 PM CDT us Deanne Tsang P.A.-C. LAB BLOOD ADD-ON Final Result [facility] [address] [place] [address], [facility] * Basic Metabolic Panel (03/11/2018 1:58 PM CDT) Potassium, S 4.0 3.6 - 5.2 mmol/L 03/11/2018 2:29 PM CDT [facility] Sodium, S 141 135 - 145 mmol/L 03/11/2018 2:29 PM CDT [facility] Chloride, S 101 98 - 107 mmol/L 03/11/2018 2:29 PM CDT [facility] Bicarbonate, S 27 22 - 29 mmol/L 03/11/2018 2:29 PM CDT [facility] Anion Gap 13 7 - 15 03/11/2018 2:29 PM CDT [facility] BUN (Blood Urea Nitrogen), S 12 6 - 21 mg/dL 03/11/2018 2:29 PM CDT [facility] Creatinine 0.62 0.59 - 1.04 mg/dL 03/11/2018 2:29 PM CDT [facility] eGFR-Non Black/ >90 >=60 mL/min/BSA 03/11/2018 2:29 PM CDT [facility] Comment: ----ADDITIONAL INFORMATION---- Estimated GFR calculated using the 2009 CKD_EPI creatinine equation. eGFR-Black/Afri can Faroese >90 >=60 mL/min/BSA 03/11/2018 2:29 PM CDT [facility] Comment: ----ADDITIONAL INFORMATION---- Estimated GFR calculated using the 2009 CKD_EPI creatinine equation. Calcium, Total, S 9.4 8.6 - 10.0 mg/dL 03/11/2018 2:29 PM CDT [facility] Glucose, S 95 70 - 140 mg/dL 03/11/2018 2:29 PM CDT [facility] Blood (Blood, Venous) 03/11/2018 1:58 PM CDT 03/11/2018 1:58 PM CDT Deanne Tsang P.A.-C. LAB BLOOD ADD-ON Final Result Performing Organization Address City/State/[facility] Co de Phone Number [facility] [address] * (ABNORMAL) Lipid Panel (06/10/2016 10:40 AM LIFE SPECIALIST) [facility] Cholesterol, Total 275(H) <=199 MGDL POWERCHART [...] for FH and FDB is available through [place] [employer]: FH/ADH Genetic Reflex Panel (test ADHP). Acquired (non-genetic) causes of markedly increased LDL cholesterol include cholestatic liver disease due to the presence of LpX. If a genetic form of hypercholesterolemia is suspected, family studies including biochemical testing for lipids (total cholesterol,triglycerides, LDL cholesterol and HDL cholesterol) are recommended. Please contact the laboratory at or the on-line test catalog at [facility] for information about how to order these tests or to speak with a genetic counselor. Further interpretation would require clinical information. Total Cholesterol/HDL Ratio 5 POWERCHART Blood 06/10/2016 10:4 0 AM LIFE SPECIALIST us Ana Chery M.D. LAB BLOOD ADD-ON Final Re sult POWERCHART from Last 3 Months or Most Recently Relevant to Health Maintenance Insurance [facility] Care Teams Clicker Operator Relationship Specialty Start Date End Date Elsewhere, Pcp PCP - General Internal Medicine 12/04/18
--- OUTSIDE RECORDS SUMMARY | 2024-08-05 20:02 | XMS_ITS | CCD ---
Author Organization Unknown Care Team Providers Care Criminal Justice Social Worker Name Role Phone [employer], [place] Primary Care Provider Unava ilable Unavailable Chronic Care Management Unavaila ble Summary Purpose DataExchange Insurance Providers Payer name Policy type / Coverage type Covered republican ID Effective Begin Date Effective End Date [facility] Commercial Insurance [id number] Unkn own Family History Family History data not found Medication Administered No Medication Administered data Reason For Visit No Reason For Visit data
--- OUTSIDE RECORDS SUMMARY | 2024-08-05 20:02 | XMS_ITS | Clinical Summary ---
Author Organization [facility] Address [facility] [place] [address] Care Team Providers Care Smeller Name Role Phone Paolo Limon MD Unavailable Talon Durham MD Unavailable Laura Gardner PsyD, Unavailable [phone] Geronimo Lamb MD Primary Care Provider Luis Santos DO Unavailable [phone] Allergies Active Allergy Reactions Criticality Noted Date [...] 02/23/200911/2011 Dizziness 06/03/2024 Overview (04/23/2021): Eval by [facility] neurology 2018. Thought to be functional. Referred to psychiatry. Encounters Date Type Department Care Team Description 08/05/2024 Orders Only [facility] [address] [place] [address] Geronimo Lamb MD <No scans attached> 08/04/2024 2:30 PM CDT Telemedicine [facility] [address] [place] [address] Geronimo Lamb MD Telehealth (No vitals taken); Hospital F/U ([facility], RSV) 08/04/2024 Travel 08/02/2024 Telephone [facility] [address] [place] [address] Geronimo Lamb MD Follow Up 07/30/2024 Orders Only [facility] Scanner 1 scan: (1-Ord) [facility], CHEST W/O CONT, 07/30/2024 07/30/2024 Orders Only [facility] Scanner 1 scan: (1-Ord) [facility], XR CHEST 1V PORTABLE , 07/30/2024 07/29/2024 10:10 AM PATIENT PORTAL CONCIERGE Telemedicine [facility] [address] [place] [address] Geronimo Lamb MD Telehealth (No vitals taken); Follow Up 07/29/2024 Travel 07/29/2024 Telephone [facility] [address] [facility] [place] [address] Geronimo Lamb MD APPT (SWITCH FROM IN PERSON TO VIRTUAL ) 07/27/2024 Orders Only [facility] Scanner 1 scan: (1-Ord) [facility], CHEST 1V, 07/27/2024 07/24/2024 2:15 PM PATIENT PORTAL CONCIERGE Ancillary Procedure [facility] [address] [place] [address] 07/24/2024 Orders Only [facility] Scanner 1 scan: (1-Ord) [facility], CT ANGIO CHEST PE PROTOCOL, 07/24/2024 07/23/2024 Orders Only [facility] Scanner 1 scan: (1-Ord) [facility], XR CHEST 1V PORTABLE, 07/23/2024 07/21/2024 10:30 AM PATIENT PORTAL CONCIERGE Office Visit [facility] [address] [place] [address] Geronimo Lamb MD Follow Up 07/20/2024 11:00 AM PATIENT PORTAL CONCIERGE Office Visit [facility] [address] [place] [address] Heather Cruz PA Consult (Vocal cord dysfunction) 07/20/2024 Travel 07/14/2024 Refill [facility] [address] [place] [address] Geronimo Lamb MD Refill Request (Mucus Relief Er) 07/11/2024 Orders Only [facility] Scanner 1 scan: (1-Ord) [facility], MULTIPLE LAB RESULTS, 07/11/2024 07/11/2024 Orders Only [facility] Scanner 1 scan: (1-Ord) [facility], XR CHEST 2V, 07/11/2024 07/05/2024 2:30 PM PATIENT PORTAL CONCIERGE Office Visit [facility] [address] [place] [address] Geronimo Lamb MD Follow Up; ER Follow up ([facility], 06/16/2024 and 07/04/2024) 07/05/2024 Travel 07/04/2024 Orders Only [facility] Scanner 1 scan: (1-Ord) [facility], CHEST 2V, 07/04/2024 06/29/2024 Telephone [facility] [address] [facility] [place] [address] Geronimo Lamb MD Medication Management 06/29/2024 Refill [facility] [address] [place] [address] Geronimo Lamb MD Refill Request (Montelukast) 06/16/2024 Orders Only [facility] Scanner 1 scan: (1-Ord) [place], CT CHEST WO CON, 06/16/2024 06/16/2024 Orders Only [facility] Scanner 1 scan: (1-Ord) [place], HEAD/BRAIN WO CON, 06/16/2024 06/11/2024 9:00 AM PATIENT PORTAL CONCIERGE - 06/11/2024 11:59 PM PATIENT PORTAL CONCIERGE Hospital Encounter [address] [place] [address] Luis Santos, DO 06/04/2024 9:04 AM PATIENT PORTAL CONCIERGE - 06/04/2024 11:59 PM PATIENT PORTAL CONCIERGE Hospital Encounter [facility] [address] [facility] [place] [address] Luis Santos, DO 06/03/2024 2:05 PM PATIENT PORTAL CONCIERGE Office Visit [facility] [address] [place] [address] Geronimo Lamb MD ER Follow up ([facility], 05/24/2024, pneumonia ) 06/03/2024 Travel 05/25/2024 Orders Only [facility] [address] [facility] [place] [address] Geronimo Lamb MD <No scans attached> 05/24/2024 Orders Only [facility] Scanner 1 scan: (1-Ord) [facility], XR CHEST 2V, 05/24/2024 05/17/2024 Refill [facility] [address] [place] [address] Geronimo Lamb MD Refill Request (Prevail XL [id number]) 05/14/2024 11:15 AM PATIENT PORTAL CONCIERGE Office Visit [facility] [address] [place] [address] Fercho Salcedo MD Hospital F/U (ACUTE CHOLECYSTISIS- feeling better ) 05/14/2024 Refill [facility] [address] [place] [address] Geronimo Lamb MD Refill Request (Protective Underwear Ex-large) 05/14/2024 Travel 05/12/2024 2:00 PM PATIENT PORTAL CONCIERGE Office Visit [facility] [address] [place] [address] Paolo Limon MD Sleep Follow-up 05/12/2024 Travel 05/12/2024 Patient Outreach [facility] [address] [place] [address] Alexandria Pulido, RN Primary RN Care Management; Hospital F/U (LACE 43) 05/09/2024 9:50 PM PATIENT PORTAL CONCIERGE - 05/11/2024 2:49 PM PATIENT PORTAL CONCIERGE Hospital Encounter [address] [address] [facility], Hospitalist Aron Sheppard, DO Discharge Disposition: Home Self Care 05/09/2024 Orders Only [facility] Scanner 1 scan: (1-Ord) [facility], US GALLBLADDER, 05/09/2024 05/09/2024 Orders Only [facility] Scanner 1 scan: (1-Ord) [facility], ABDOMEN PELVIS W/CONTRAST, 05/09/2024 from Last 3 Months Immunizations Immunization Administration Dates Next Due COVID-19 VACCINE SPIKEVAX (M ODERNA 50MCG/0.5ML) 12YO+ PFS 03/19/2023 COVID-19 vaccine (AlignAlytics-Bio NTech 30mcg/0.3mL) 12YO+ BIVALENT PF, MDV 05/01/2022 [...] on file Legal Sex Female 6:31 AM PATIENT PORTAL CONCIERGE Gender Identity Not on file Sexual Orientation Not on file Obstetrics History Last Filed Vital Signs Vital Sign Reading Time Taken Comments Blood Pressure 141/86 07/21/2024 10:32 AM PATIENT PORTAL CONCIERGE Pulse 112 07/21/2024 10:32 AM PATIENT PORTAL CONCIERGE Temperature 36.6 C (97.9 F) 05/11/2024 8:03 AM PATIENT PORTAL CONCIERGE Respiratory Rate 18 05/11/2024 8:03 AM PATIENT PORTAL CONCIERGE Oxygen Saturation 92% 07/21/2024 10: 32 AM PATIENT PORTAL CONCIERGE 2L via nasal cannula Inhaled Oxygen Concentration - - Weight 109.3 kg (241 lb) 07/21/2024 10: 32 AM PATIENT PORTAL CONCIERGE Height 142.2 cm (4' 8) 05/12/2024 2:07 PM PATIENT PORTAL CONCIERGE Body Mass Index 54.03 05/12/2024 2:07 PM PATIENT PORTAL CONCIERGE Plan of Treatment Upcoming Encounters Date Type Department Care Team (Late st Contact Info) Description 08/06/2024 9:15 AM CDT Appointment [facility] [address] [place] [address] 08/18/2024 12:00 PM CDT Office Visit [facility] [address] [facility] [address] [place] [address] Sadiq Lujan PA [address] [facility] [address] [place] [address] 08/25/2024 10:00 AM CDT Office Visit [facility] [address] [place] [address] Paolo Limon MD [address] [place] [address] 10/27/2024 1:30 PM CDT Office Visit [facility] [address] [place] [address] Paolo Limon MD [address] [place] [address] Health Maintenance Due Date Last Done Comments [...] Associated Diagnosis Comments SCAN-CT INTERPRETATION 12:00 AM PATIENT PORTAL CONCIERGE SCAN-RADIOLOGY REPORT 07/30/2024 12:00 AM PATIENT PORTAL CONCIERGE SCAN-RADIOLOGY REPORT 07/27/2024 12:00 AM PATIENT PORTAL CONCIERGE ECHO TTE COMPLETE W CONTRAST Routine 07/24/2024 3:13 PM PATIENT PORTAL CONCIERGE Chest pain SCAN-CT INTERPRETATION 12:00 AM PATIENT PORTAL CONCIERGE SCAN-RADIOLOGY REPORT 07/23/2024 12:00 AM PATIENT PORTAL CONCIERGE SCAN-LABORATORY REPORT 12:00 AM PATIENT PORTAL CONCIERGE SCAN-RADIOLOGY REPORT 07/11/2024 12:00 AM PATIENT PORTAL CONCIERGE SCAN-RADIOLOGY REPORT 07/04/2024 12:00 AM PATIENT PORTAL CONCIERGE SCAN-CT INTERPRETATION 5 12:00 AM PATIENT PORTAL CONCIERGE SCAN-CT INTERPRETATION 12:00 AM PATIENT PORTAL CONCIERGE COVID/FLU/RSV PANEL Routine 06/03/2024 2 :37 PM PATIENT PORTAL CONCIERGE Flu-like symptoms SCAN-RADIOLOGY REPORT 05/24/2024 12:00 AM PATIENT PORTAL CONCIERGE NM HEPATOBILIARY IMAGING RICHARD 05/10/2024 1:58 PM PATIENT PORTAL CONCIERGE SCAN CORRESP-LABORATORY RESULTS 05/10/2024 10:49 AM PATIENT PORTAL CONCIERGE SCAN CORRESP-IMAGING 05/10/2024 10:43 AM PATIENT PORTAL CONCIERGE HEPATIC FUNCTION PANEL Early AM 6:26 AM PATIENT PORTAL CONCIERGE PROTIME-INR Early AM 05/10/2024 6:26 AM PATIENT PORTAL CONCIERGE WHITE BLOOD COUNT Early AM 05/10/2024 6:2 6 AM PATIENT PORTAL CONCIERGE HEMOGLOBIN Early AM 05/10/2024 6:26 AM PATIENT PORTAL CONCIERGE PLATELET COUNT Early AM 05/10/2024 6:26 AM PATIENT PORTAL CONCIERGE SODIUM Early AM 05/10/2024 6:26 AM PATIENT PORTAL CONCIERGE POTASSIUM Early AM 05/10/2024 6:26 AM PATIENT PORTAL CONCIERGE CREATININE Early AM 05/10/2024 6:26 AM PATIENT PORTAL CONCIERGE SCAN-ULTRASOUND REPORT 12/15/202 4 12:00 AM PATIENT PORTAL CONCIERGE SCAN-CT INTERPRETATION 4 12:00 AM PATIENT PORTAL CONCIERGE LIPID PANEL W REFLEX MEASURED LDL Routine 01/20/2024 4:00 PM CDT Hyperlipidemia, unspecified hyperlipidemia type ANTI HIV 1/2 Routine 05/01/2022 4:36 PM PATIENT PORTAL CONCIERGE Encounter for screening for HIV ANTI HCV Routine 12/05/2021 9:30 AM CDT Need for hepatitis C screening test SCAN-MAMMOGRAPHY REPORT 02/24/2019 12:00 AM CDT from Last 3 Months or Most Recently Relevant to Health Maintenance Results * SCAN-RADIOLOGY REPORT (07/30/2024 12:00 AM PATIENT PORTAL CONCIERGE) Only the most recent of6 resultswithin the time period is included. Anatomical Region Laterality Modality Other us Scanner OTHER Final Result * SCAN-CT INTERPRETATION (07/30/2024 12:00 AM PATIENT PORTAL CONCIERGE) Only the most recent of5 resultswithin the time period is included. Anatomical Region Laterality Modality Other us Scanner OTHER Final Result * ECHO TTE COMPLETE W CONTRAST (07/24/2024 3:13 PM PATIENT PORTAL CONCIERGE) AORTIC VALVE MEAN PG 4 mmHg EJECTION FRACTION 64 % Anatomical Region Laterality Modality Ultrasound 07/24/2024 2:27 PM PATIENT PORTAL CONCIERGE Narrative 07/24/2024 4:14 PM PATIENT PORTAL CONCIERGE ECHOCARDIOGRAM TASHIA HAZEL : 1975 49 years Study Date: 07/24/2024 2:27:08 PM Gender: F BP: 131/77 mmHg Height: 145.00 cm BSA: 1.97 m Weight: 112.00 kg Tech: MB Referring MD: DERICK MENDIETA Site: [facility] Reading Location: Mobile IP [...] documentation: 2 ml diluted Definity, lot #[id number], [facility]# [id number] was administered peripherally to enhance visualization of all left ventricular segments. . This study was interpreted by an [facility] accredited facility. CC: HIM (med records) [facility], Med/Surg - IP [facility]. Final Procedure Note Armando Powell MD - 07/24/2024 ECHOCARDIOGRAM TASHIA HAZEL : 1975 49 years Study Date: 07/24/2024 2:27:08 PM Gender: F BP: 131/77 mmHg Height: 145.00 cm BSA: 1.97 m Weight: 112.00 kg Tech: [facility] Referring MD: DERICK MENDIETA Site: [facility] Reading Location: Mobile IP [...] documentation: 2 ml diluted Definity, lot #[id number], [facility]#[id number] was administered peripherally to enhance visualization of allleft ventricular segments. . This study was interpreted by an [facility] accredited facility. CC: HIM (med records) [facility], Med/Surg - IP [facility]. Final us Derick Mendieta MD ECHO ORD Final Resu lt * SCAN-LABORATORY REPORT (07/11/2024 12:00 AM PATIENT PORTAL CONCIERGE) us Scanner OTHER Final Result * COVID/FLU/RSV PANEL (06/03/2024 2:37 PM PATIENT PORTAL CONCIERGE) COVID 19 [facility] MOLE[facility] Negative Negative 06/03/2024 11:44 PM PATIENT PORTAL CONCIERGE [facility] Comment:All PCR tests are lopez bject to false negative result due to variability in viral load and collection technique. A negative result does not rule out a SARS-CoV-2 infection. Clinical correlation required. INFLUENZA A PCR Negative 11:44 PM PATIENT PORTAL CONCIERGE [facility] INFLUENZA B PCR Negative 11:44 PM PATIENT PORTAL CONCIERGE [facility] Respiratory Syncytial Virus Negative 06/03/2024 11:44 PM PATIENT PORTAL CONCIERGE [facility] Swab NASOPHARYNGEAL SWAB / Unknown Non-Blood / Unknown 06/03/2024 2:37 PM PATIENT PORTAL CONCIERGE 06/03/2024 2:38 PM PATIENT PORTAL CONCIERGE us Geronimo Lamb MD MICROBIOLOGY Final Result [facility] [address] [place] [address], [place] * NM HEPATOBILIARY IMAGING (05/10/2024 1:58 PM PATIENT PORTAL CONCIERGE) Anatomical Region Laterality Modality LIVER Nuclear Medicine 05/10/2024 1:58 PM PATIENT PORTAL CONCIERGE Impressions 05/10/2024 2:21 PM PATIENT PORTAL CONCIERGE Negative for acute cholecystitis. Narrative 05/10/2024 2:21 PM PATIENT PORTAL CONCIERGE For Patients: As a result of the Cures Act, medical imaging exams and procedure reports are released immediately into your electronic medical record. You may view this report before your referring provider. If you have questions, please contact your health care provider. EXAM: NM HEPATOBILIARY IMAGING LOCATION: [facility] MEDICAL IMAGING DATE: 05/10/2024 INDICATION: [...] please contact your health care provider. EXAM: ND HEPATOBILIARY IMAGING LOCATION: [facility] MEDICAL IMAGING DATE: 05/10/2024 INDICATION: [...] * SCAN CORRESP-LABORATORY RESULTS (05/10/2024 10:49 AM PATIENT PORTAL CONCIERGE) Narrative 05/10/2024 10:49 AM PATIENT PORTAL CONCIERGE Ordered by an unspecified provider. us Other Clinical Staff OTHER Final Resul t * SCAN CORRESP-IMAGING (05/10/2024 10:43 AM PATIENT PORTAL CONCIERGE) Anatomical Region Laterality Modality Other Narrative 05/10/2024 10:43 AM PATIENT PORTAL CONCIERGE Ordered by an unspecified provider. us Other Clinical Staff OTHER Final Resul t * PLATELET COUNT (05/10/2024 6:26 AM PATIENT PORTAL CONCIERGE) PLATELET COUNT 202 140 - 440 thou/cu mm 05/10/2024 6:48 AM PATIENT PORTAL CONCIERGE [facility] MPV 10.1 6.5 - 11.0 fL 05/10/2024 6:48 AM [facility] Blood BLOOD SPECIMEN / Unknown Venipuncture / Unknown 05/10/2024 6:26 AM PATIENT PORTAL CONCIERGE 05/10/2024 6:37 AM PATIENT PORTAL CONCIERGE Aron Birch DO HEMATOLOGY Final Result [facility] SENDOUT INTERNAL ZIP [id number] [place] [address] * WHITE BLOOD COUNT (05/10/2024 6:26 AM PATIENT PORTAL CONCIERGE) WHITE BLOOD COUNT 7.6 4.5 - 11.0 thou/cu mm 05/10/2024 6:48 AM PATIENT PORTAL CONCIERGE [facility] NRBC 0.0 % 05/10/2024 6:48 AM PATIENT PORTAL CONCIERGE [facility] ABS NRBC 0.0 thou /cu mm 05/10/2024 6:48 AM [facility] Blood BLOOD SPECIMEN / Unknown Venipuncture / Unknown 05/10/2024 6:26 AM PATIENT PORTAL CONCIERGE 05/10/2024 6:37 AM PATIENT PORTAL CONCIERGE Aron Birch DO HEMATOLOGY Final Result [facility] SENDOUT INTERNAL ZIP [id number] [place] [address] * HEMOGLOBIN (05/10/2024 6:26 AM PATIENT PORTAL CONCIERGE) HEMOGLOBIN 12.4 12.0 - 16.0 g/dL 05/10/2024 6:48 AM PATIENT PORTAL CONCIERGE [facility] MCV 92 80 - 100 fL 05/10/2024 6:48 AM [facility] Blood BLOOD SPECIMEN / Unknown Venipuncture / Unknown 05/10/2024 6:26 AM PATIENT PORTAL CONCIERGE 05/10/2024 6:37 AM PATIENT PORTAL CONCIERGE Aron Birch DO HEMATOLOGY Final Result [facility] SENDOUT INTERNAL ZIP [phone] [place] [address] * SODIUM (05/10/2024 6:26 AM PATIENT PORTAL CONCIERGE) SODIUM 143 136 - 145 mmol/L 05/10/2024 7:23 AM PATIENT PORTAL CONCIERGE [facility] Blood BLOOD SPECIMEN / Unknown Venipuncture / Unknown 05/10/2024 6:26 AM PATIENT PORTAL CONCIERGE 05/10/2024 6:37 AM PATIENT PORTAL CONCIERGE Aron Birch DO CHEMISTRY Final Result [facility] SENDOUT INTERNAL ZIP [id number] [place] [address] * POTASSIUM (05/10/2024 6:26 AM PATIENT PORTAL CONCIERGE) POTASSIUM 3.8 3.5 - 5.1 mmol/L 05/10/2024 7:23 AM [facility] Blood BLOOD SPECIMEN / Unknown Venipuncture / Unknown 05/10/2024 6:26 AM PATIENT PORTAL CONCIERGE 05/10/2024 6:37 AM PATIENT PORTAL CONCIERGE Aron Birch DO CHEMISTRY Final Result Performing Organization Address City/[facility]/ZIP Co de Phone Number [facility] SENDOUT INTERNAL ZIP [address] [place] [address] * CREATININE (05/10/2024 6:26 AM PATIENT PORTAL CONCIERGE) eGFR >90 >90 mL/min/1.7 3m2 05/10/2024 7:23 AM [facility] Comment:As of 2021, eG FR is calculated by the CKD-EPI creatinine equation without race adjustment. eGFR can be influenced by muscle mass, exercise, and diet. The reported eGFR is an estimation only and is only applicable if the renal function is stable. CREATININE 0.73 0.50 - 0.90 mg/dL 05/10/2024 7:23 AM [facility] Blood BLOOD SPECIMEN / Unknown Venipuncture / Unknown 05/10/2024 6:26 AM PATIENT PORTAL CONCIERGE 05/10/2024 6:37 AM PATIENT PORTAL CONCIERGE Aron Birch DO CHEMISTRY Final Result Performing Organization Address City/[facility]/ZIP Co de Phone Number [facility] SENDOUT INTERNAL ZIP [address] [place] [address] * PROTIME-INR (05/10/2024 6:26 AM PATIENT PORTAL CONCIERGE) INR 1.1 <1.3 05/10/2024 6:52 AM PATIENT PORTAL CONCIERGE [facility] PROTIME 12.2 10.6 - 12.4 sec 05/10/2024 6:52 AM PATIENT PORTAL CONCIERGE [facility] Blood BLOOD SPECIMEN / Unknown Venipuncture / Unknown 05/10/2024 6:26 AM PATIENT PORTAL CONCIERGE 05/10/2024 6:37 AM PATIENT PORTAL CONCIERGE Narrative [facility] - 05/10/2024 6:52 AM PATIENT PORTAL CONCIERGE Therapeutic Range 2.0-3.0 for most anticoagulated patients [...] DO HEMATOLOGY Final Result Performing Organization Address City/[facility]/ZIP Co de Phone Number [facility] SENDOUT INTERNAL ZIP [address] [place] [address] * (ABNORMAL) HEPATIC FUNCTION PANEL (05/10/2024 6:26 AM PATIENT PORTAL CONCIERGE) ALBUMIN 3.6(L) 4.0 - 4.9 g/dL 05/10/2024 7:23 AM PATIENT PORTAL CONCIERGE [facility] PROTEIN,TOTAL 6.5 6.0 - 8.0 g/dL 05/10/2024 7:23 AM PATIENT PORTAL CONCIERGE [facility] BILIRUBIN,TOTAL 0.4 0.0 - 1.2 mg/dL 05/10/2024 7:23 AM PATIENT PORTAL CONCIERGE [facility] BILIRUBIN,DIRECT 0.2 0.0 - 0.2 mg/dL 05/10/2024 7:23 AM [facility] BILIRUBIN,INDIRE CT 0.2 0.2 - 0.8 mg/dL 05/10/2024 7:23 AM [facility] ALK PHOSPHATASE 82 35 - 104 IU/L 05/10/2024 7:23 AM [facility] ALT (SGPT) 30 10 - 35 IU/L 05/10/2024 7:23 AM [facility] AST (SGOT) 26 10 - 35 IU/L 05/10/2024 7:23 AM [facility] Blood BLOOD SPECIMEN / Unknown Venipuncture / Unknown 05/10/2024 6:26 AM PATIENT PORTAL CONCIERGE 05/10/2024 6:37 AM [facility] us Aron Birch DO CHEMISTRY Final Result [facility] SENDOUT INTERNAL ZIP [id number] [place] [address] * SCAN-ULTRASOUND REPORT (05/09/2024 12:00 AM PATIENT PORTAL CONCIERGE) Anatomical Region Laterality Modality Other us Scanner OTHER Final Result * (ABNORMAL) LIPID PANEL W REFLEX MEASURED LDL (01/20/2024 4:00 PM CDT) CHOLESTEROL,TOTAL 261(H) 100 - 199 mg/dL 01/21/2024 1:44 PM CDT [facility] Comment: Cholesterol, Total Reference Ranges Desirable <200 mg/dL Borderline 200-239 mg/dL High >=240 mg/dL TRIGLYCERIDES 252(H) <150 mg/dL 01/21/2024 1:44 PM CDT [facility] HDL CHOLESTEROL 50 >40 mg/dL 1:44 PM CDT [facility] NON-HDL CHOLESTEROL 211(H) <145 mg/dl 01/21/2024 1:44 PM CDT [facility] CHOL/HDL RATIO 5.22(H) <4.50 01/21/2024 1:44 PM CDT [facility] LDL CHOLESTEROL 161(H) <=130 mg/dL 01/21/2024 1:44 PM CDT [facility] VLDL CHOLESTEROL 50(H) <=30 mg/dL 01/21/2024 1:44 PM CDT [facility] PROVIDER ORDERED STATUS RANDOM 01/21/2024 1:44 PM CDT [facility] Blood BLOOD SPECIMEN / Unknown Venipuncture / Unknown 01/20/2024 4:00 PM CDT 01/20/2024 4:00 PM CDT Geronimo Lamb MD CHEMISTRY Final Result [facility] [address] [place] [address], [place] * ANTI HIV 1/2 (05/01/2022 4:36 PM PATIENT PORTAL CONCIERGE) HIV-1/HIV-2 ANTIBODY Non-Reacti ve Non-Reacti ve 05/04/2022 9:59 PM PATIENT PORTAL CONCIERGE [facility] Comment:HIV-1 p24 and HIV-1/ HIV-2 Ab not detected. Blood BLOOD SPECIMEN / Unknown Butterfly / Unknown 05/01/2022 4:36 PM PATIENT PORTAL CONCIERGE 05/01/2022 4:41 PM PATIENT PORTAL CONCIERGE us Geronimo Lamb MD SEND OUTS Final Result [facility] [address] [place] [address], [place] * ANTI HCV (12/05/2021 9:30 AM CDT) HEPATITIS C ANTIBODY Non-React shikha Non-React shikha 12/05/2021 9:16 PM CDT [facility] Comment:Antibodies to HCV no t detected; does not exclude the possibility of exposure to HCV. Blood BLOOD SPECIMEN / Unknown Venipuncture / Unknown 12/05/2021 9:30 AM CDT 12/05/2021 9:33 AM CDT us Geronimo Lamb MD SEND OUTS Final Result [facility] [address] [place] [address], [place] * SCAN-MAMMOGRAPHY REPORT (02/24/2019 12:00 AM CDT) Anatomical Region Laterality Modality Other us Scanner OTHER Final Result from Last 3 Months or Most Recently Relevant to Health Maintenance Insurance [facility] MEDICARE PART A HB ONLY Advance Directives * Full Code (Latest Code Status on File) Date Activated Date Inactivated Comments 05/09/2024 10:07 PM 05/11/2024 4:49 PM Question Answer Comments Code Status Discussion: Reviewed Preferences Care Teams Smeller Relationship Specialty Start Date End Date Geronimo Lamb MD [address] [place] [address] PCP - General Family Practice 04/23/21 Paolo Limon MD Sleep Medicine 10/28/11 Talon Durham MD Neurology Neurology 11/26/11 Laura Gardner PsyD, [facility] Psychology 09/14/13 [place] [address] [place] [address] Pulmonology Pulmonary Medicine 01/22/24
--- OUTSIDE RECORDS SUMMARY | 2024-08-05 20:02 | XMS_ITS | Clinical Summary ---
Author Organization [facility] Address [address] , [address] [place] [address] Phone Care Team Providers Care Electrical Logger Name Role Phone Son Jara MD Conditions or Problems Problem Name Problem Code Onset Date Status Entry Date Provider Comment Standard Description Annotate Involuntary movements 138020392 (SNOMED CT) Active Son Jara MD Abnormal involuntary movement Tremor 45817114 (SNOMED CT) Active Son Jara MD Tremor Medications Medication Instructions Start Date Stop Date Generic Name ND Provider SOLIFENACIN SUCCINATE 10 MG TABS Take 1 Tablet (10 mg) by mouth once daily. solifenacin (VESICARE) 10 mg tablet [id number] Son Jara MD PROCHLORPERAZINE MALEATE 5 MG TABS Take 1 Tablet (5 mg) by mouth every 8 hours if needed for Nausea/Vomitin g. prochlorperazine (COMPAZINE) 5 mg tablet [id number] Son Jara MD OMEPRAZOLE 20 MG CPDR Take 2 Capsules (40 mg) by mouth once daily before a meal. omeprazole (PriLOSEC) 20 mg Delayed-Release capsule [id number] Son Jara MD MONTELUKAST SODIUM 10 MG TABS Take 1 Tablet (10 mg) by mouth at bedtime. montelukast (SINGULAIR) 10 mg tablet [id number] Son Jara MD mirabegron EXTENDED-release (MYRBETRIQ) 50 mg tablet Take 1 Tablet (50 mg) by mouth once daily. mirabegron EXTENDED-release (MYRBETRIQ) 50 mg tablet Son Jara MD MECLIZINE HCL 25 MG TABS Take 0.5 Tablets (12.5 mg) by mouth 3 times daily if needed for Nausea/Vomitin g. meclizine (ANTIVERT) 25 mg tablet [id number] Son Jara MD LEVOTHYROXINE SODIUM 175 MCG TABS Take 1 Tablet (175 mcg) by mouth before breakfast. levothyroxine (SYNTHROID) 175 mcg tablet [id number] Son aJra MD FEXOFENADINE HCL 180 MG TABS Take 1 tablet by mouth once daily with a meal. fexofenadine (ROJAS) 180 mg tablet [id number] Son Jara MD DIPHENHYDRAMINE HCL 25 MG CAPS Take 1 capsule by mouth each time if needed. diphenhydrAMINE (BENADRYL) 25 mg capsule [id number] Son Jara MD VITAMIN D 50 MCG (2000 UT) TABS Take 2,000 units by mouth. cholecalciferol, Vitamin D3, 2,000 unit tablet [id number] Son Jara MD BUPROPION HCL ER (XL) 150 MG [id number] null buPROPion (WELLBUTRIN XL) 150 mg Extended-Release tablet [id number] Son Jara MD IPRATROPIUM-ALBUTE ROL 0.5-2.5 (3) MG/3ML SOLN Inhale 3 mL via a nebulizer 2 times daily if needed for Shortness of Breath 1st choice or Wheezing 1st choice. albuterol-ipratrop ium (DUONEB) (2.5-0.5 mg) in 3 mL NEBULIZA [id number] Son Jara MD ALBUTEROL SULFATE HFA 108 (90 Base) MCG/ACT AERS Inhale 1-2 Puffs by mouth every 4 hours if needed for Shortness of Breath 1st choice. albuterol HFA (ProAir HFA) 90 mcg/actuation inhaler [id number] Son Jara MD ALBUTEROL SULFATE (2.5 MG/3ML) 0.083% NEBU Inhale 3 mL via a nebulizer every 6 hours if needed for Shortness Of Breath or Wheezing. albuterol (PROVENTIL) 0.083 % neb solution [id number] Son Jara MD SYMBICORT 160-4.5 MCG/ACT AERO null Symbicort 160-4. 5 mcg/actuation (160-4.5 mcg each actuation) [id number] Son Jara MD PAROXETINE HCL 40 MG TABS null PARoxetine (PAXI L) 40 mg tablet [id number] Son Jara MD Medications Administered No information [...] Date ORDERS EEG Sleep Deprived (41min) 2 CPT-32823 EEG EXTENDED 41-60mins (END) [id number] Documentation of current medicatio ns ORDERS Patient Instructions Vital Signs No information available. Immunizations No information available. Advance Directives No information available.
--- OUTSIDE RECORDS SUMMARY | 2024-08-05 20:02 | XMS_ITS | CCD ---
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
[2024-08-05 20:12] LABS: Basophils Percent Auto 0.3 % (0.0-3.0); Eosinophils Percent Auto 1.6 % (0.0-7.0); Hematocrit 36.7 % (33.0-51.0); Hemoglobin* 10.7 gm/dL (12.0-16.0); Immature Granulocytes Pct Auto 1.4 %; Lymphocytes Percent Auto 10.9 % (20-44); Mean Corpuscular HGB Conc 29 gm/dL (32-36); Mean Corpuscular Hemoglobin 29 pg (26-34); Mean Corpuscular Volume 99 fL (80-100); Monocytes Percent Auto 4.6 % (0.0-11.0); Neutrophils Percent Auto 81.2 % (42.0-72.0); Platelet Count* 275 K/uL (140-440); RDW Coefficient of Variation % 14.3 % (11.5-15.5); Red Blood Count 3.71 m/uL (4.00-5.20); White Blood Count* 12.21 K/uL (4.50-11.00)
[2024-08-05 20:13] LABS: Slide Review Reflex No
[2024-08-05] MEDS: CEFEPIME HCL 2 GM in 0.9 % SODIUM CHLORIDE Mini-bag 100 ML IVPB (20:59)
[2024-08-05] MEDS: levoFLOXacin 750 MG TABLET PO (21:06)
--- NOTE | 2024-08-05 21:17 | PM.IMHP1 ---
Hospitalist- H&P: HPI History of Present Illness Date Seen: 08/05/24 Chief complaint: SOB Narrative: Paloma Garcia is a 49 year old female past medical history significant for HFpEF, hypothyroidism, hyperlipidemia, chronic respiratory failure with hypoxia hypercapnia, vocal cord dysfunction, RODRICK noncompliant with CPAP, severe persistent asthma, bilateral lower extremity edema, anxiety and depression is admitted to the critical care unit for further management acute on chronic recurrent hypoxic hypercapnic respiratory failure, requiring BiPAP. Patient was recently hospitalized at this facility from 07/23/2024-07/27/2024 for the same in the setting of an acute RSV infection and multifocal pneumonia. Since discharge, tells me she remains noncompliant with her CPAP, misunderstanding instructions from her PCP to be using it nightly without concern for vocal cord dysfunction. She further tells me that she has also misunderstood how much oxygen she is to be using. She knows they told her to use 1 L during the day with a 2 L bleed in to her CPAP. Instead she has been using 2 L 24 hours daily. She has been using her rescue inhaler every 2 hours. She takes her pills as prescribed as these are managed for her. In the past few days, shortness of breath and wheezing has worsened. Has had a dry cough and chest tightness. Denies any fevers. Progressively weaking, requiring 3 assist at her facility today. Has had a mild frontal headache. Denies dizziness. Denies abdominal pain, nausea, vomiting, diarrhea. No change in urination. In the ED, she was placed on 3 L per nasal cannula with O2 saturations 94%. CT chest showing concern for atypical infection. She was started on vancomycin, levofloxacin, and cefepime. PCP is Dr. Lamb. Nonsmoker. Denies alcohol use. Wishes to be full code. Review of Systems Narrative: REVIEW OF SYSTEMS: Complete review of systems performed and negative unless otherwise stated in HPI or below. [facility] Medical History Heart failure with preserved ejection fraction ?I50.30 - Unspecified diastolic (congestive) heart failure (ICD-10) Vocal cord dysfunction ?J38.3 - Other diseases of vocal cords (ICD-10) Acute on chronic respiratory failure with hypoxia and hypercapnia ?J96.21 - Acute and chronic respiratory failure with hypoxia (ICD-10) ?J96.22 - Acute and chronic respiratory failure with hypercapnia (ICD-10) Hypercarbia ?R06.89 - Other abnormalities of breathing (ICD-10) Hypothyroidism ?E03.9 - Hypothyroidism, unspecified (ICD-10) Acute and chronic respiratory failure with hypoxia ?J96.21 - Acute and chronic respiratory failure with hypoxia (ICD-10) 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 - Unspecified convulsions (ICD-10) RODRICK (obstructive sleep apnea) ?G47.33 - Obstructive sleep apnea (adult) (pediatric) (ICD-10) ADHD ?F90.9 - Attention-deficit hyperactivity disorder, unspecified type (ICD-10) Hyperthyroidism ?E05.90 - Thyrotoxicosis, unspecified without thyrotoxic crisis or storm (ICD-10) Hydrocephalus ?G91.9 - Hydrocephalus, unspecified (ICD-10) Hyperlipidemia ?E78.5 - Hyperlipidemia, unspecified (ICD-10) Anxiety and depression ?F41.9 - Anxiety disorder, unspecified (ICD-10) ?F32.A - Depression, unspecified (ICD-10) Asthma ?J45.909 - Unspecified asthma, uncomplicated (ICD-10) Surgical History History of ear surgery ?Z98.890 - Other specified postprocedural states (ICD-10) History of strabismus surgery ?Z98.890 - Other specified postprocedural states (ICD-10) Social History Narrative: on disability since 2009; lives alone with her cat. nonsmoker, no drugs, no significant tobacco history adopted, her two adopted aunts are her family contacts. What is your current living situation?: I presently have a place to live Problems where you live: no known problems Problems where you live details: none In the past 12 months, utilities in danger of being shut off: no In past 12 months, lack of transportation kept you from medical appts, meetings, work, or getting things needed for daily living: no In the past 12 mos, have been you worried that your food would run out before you had money to buy more?: never true In the past 12 mos, the food you bought just didn't last and you didn't have money to buy more?: never true Highest level of school completed/degree received: Associate degree: academic program Smoking Status: Never smoker Do you use any of these nicotine containing products: None Second hand tobacco smoke exposure: Yes How often do you have a drink containing alcohol: never How often do you have six or more drinks on one occasion: Never AUDIT-C Alcohol total score: 0 Non-prescribed substance use: denies use Caffeine: Yes How often does anyone, including family, friends and others, physically hurt you: never How often does anyone, including family, friends and others, insult or talk down to you: never How often does anyone, including family, friends and others, threaten you with harm: never How often does anyone, including family, friends and others, scream or curse at you: never service: No Meds Home Medications and Allergies Home Medications ?Medication ?Instructions ?Recorded ?Confirmed ?Type albuterol sulfate 90 mcg/actuation 1 - 2 puff inhalation Q4H PRN 11/30/21 07/23/24 History aerosol inhaler mirabegron 50 mg tablet,extended 50 mg PO DAILY 11/30/21 07/23/24 History release 24 hr (Myrbetriq) montelukast 10 mg tablet 10 mg PO HS 11/30/21 07/23/24 History omeprazole 20 mg capsule,delayed 40 mg PO DAILY 02/26/22 07/23/24 History release levetiracetam 750 mg tablet 750 mg PO BID 11/25/22 07/23/24 History (Keppra) cholecalciferol (vitamin D3) 50 50 mcg PO DAILY 01/30/23 07/23/24 History mcg (2,000 unit) capsule paroxetine HCl 40 mg tablet 40 mg PO DAILY 01/30/23 07/23/24 History levothyroxine 100 mcg tablet 100 mcg PO DAILY 10/16/23 07/23/24 History potassium chloride 10 mEq 20 meq PO DAILY 10/16/23 07/23/24 History tablet,extended release aluminum-mag hydroxide-simethicone 5 - 10 ml PO 5XD PRN 03/20/24 07/23/24 History 200 mg-200 mg-20 mg/5 mL oral susp (Maalox Advanced) dextromethorphan HBr 10 mg/5 mL 5 - 10 mg PO Q4-6H PRN 03/20/24 07/23/24 History oral syrup diphenhydramine HCl 25 mg capsule 25 mg PO DAILY PRN 03/20/24 07/23/24 History (Banophen) ibuprofen 200 mg capsule 200 - 400 mg PO Q4-6H PRN 03/20/24 07/23/24 History loperamide 2 mg tablet 1 mg PO Q6H PRN 03/20/24 07/23/24 History (Anti-Diarrheal (loperamide)) magnesium hydroxide 400 mg/5 mL 15 - 30 ml PO DAILY PRN 03/20/24 07/23/24 History oral suspension (Milk of Magnesia) terbinafine HCl 1 % topical cream 1 applic topical BID 03/20/24 07/23/24 History famotidine 20 mg tablet 20 mg PO BID 07/23/24 07/23/24 History fluticasone propionate 50 2 spray intranasal DAILY 07/23/24 07/23/24 History mcg/actuation nasal spray,suspension furosemide 20 mg tablet 20 mg PO BID@08,12 07/23/24 07/23/24 History ipratropium 0.5 mg-albuterol 3 mg 1 ml inhalation TID 07/23/24 07/23/24 History (2.5 mg base)/3 mL nebulization soln mirtazapine 15 mg tablet 15 mg PO HS 07/23/24 07/23/24 History Allergies Allergy/AdvReac Type Severity Reaction Status Date / Time azithromycin Allergy Intermediate Bloody Verified 08/05/24 19:44 Stools latex Allergy Intermediate Rash Verified 08/05/24 19:44 oxycodone Allergy Intermediate Agitated Verified 08/05/24 19:44 scopolamine Allergy Intermediate Tremors Verified 08/05/24 19:44 basil Allergy Rash Verified 08/05/24 19:44 Exam Narrative: Exam Narrative: PHYSICAL EXAM General: Pleasant, conversant HEENT: Normocephalic, atraumatic, sclera white, EOMI, oral mucosa moist Cardiovascular: RRR, S1S2. +1 pitting edema LLE Pulmonary: Diffusely diminished with expiratory wheezes, dyspnea on 3 L NC Abdominal: Soft, nondistended, NTTP Neurological: Alert, oriented, answering questions appropriately, cranial nerves intact, no focal findings Extremities: No gross joint deformity or swelling. AROMI. Neurovascularly intact Skin: Warm, dry. Const: Vital Signs, click to edit/add: Vital Signs - 24 hr 08/05/24 18:05 08/05/24 18:57 08/05/24 19:38 Temperature Pulse Rate 111 H Pulse Rate [Pulse Oximeter] 112 H Respiratory Rate 28 H 24 Blood Pressure 133/75 Pulse Oximetry 78 L 89 89 Oxygen Delivery Me thod Room Air Nasal Cannula Nasal Cannula Oxygen Flow Rate 3 3 08/05/24 19:57 Temperature 98.8 F Pulse Rate Pulse Rate [Pulse Oximeter] Respiratory Rate Blood Pressure Pulse Oximetry Oxygen Delivery Me thod Oxygen Flow Rate Hospitalist - H&P: Result Labs Labs: Short CBC 08/05/24 Range/Units 19:00 WBC 12.21 H (4.50-11.00) K/uL Hgb 10.7 L (12.0-16.0) gm/dL Hct 36.7 (33.0-51.0) % Plt Count 275 (140-440) K/uL BMP 08/05/24 19:10 Sodium 140 Potassium 3.9 Chloride 92 L Carbon Dioxide 39 H BUN 14 Creatinine 0.7 Glucose 140 H Calcium 8.6 Cardiac Enzymes 08/05/24 Range/Units 19:10 Troponin I < 0.01 L (0.01-0.04) ng/mL Liver Function 08/05/24 Range/Units 19:10 Total Bilirubin 0.4 (0.1-1.5) mg/dL AST 20 (12-35) U/L ALT 30 (4-35) U/L Alkaline Phosphatase 99 (40-150) U/L Albumin 4.0 (3.3-5.0) g/dL ECG Attestation: I personally reviewed and interpreted this ECG as follows: ECG interpretation date: 08/05/24 Interpretation: Sinus tachycardia, rate 109, QTC 465 Imaging CTA chest: Attestation: I have reviewed the pertinent imaging results. Radiologist's impression: lightly suboptimal examination secondary to habitus. CARDIOVASCULAR: Diagnostic quality: Contrast opacification of the pulmonary arterial circulation is adequate for assessment of pulmonary embolism. Study is not significantly limited by respiratory motion artifact. Pulmonary arteries: No filling defects to suggest pulmonary embolism. Enlarged, measuring 3.5 centimeter in diameter (). Heart: No interventricular septal deviation. Normal in size. No significant coronary artery calcification. No significant valvular calcification. Pericardium: No pericardial effusion. Thoracic aorta: No significant abnormality. Normal cervical branching. REMAINING CHEST: Medical devices: None. Thyroid: Normal. Lymph nodes: No supraclavicular, axillary, mediastinal, or hilar lymphadenopathy. Nonspecific mildly prominent mediastinal and bilateral axillary lymph nodes are favored to be reactive. Other mediastinal structures: No significant abnormality. Lung parenchyma: Wxwx-mz-xkhocdmr patchy bilateral ground-glass airspace opacities and scattered areas of consolidation. Scattered calcified granulomas. Airways: No significant abnormality. Pleura: No significant abnormality. Chest wall: No significant abnormality. Upper abdomen: Cholelithiasis. Musculoskeletal: No significant abnormality. Impression: 1. Slightly suboptimal examination secondary to habitus. 2. No acute pulmonary emboli. 3. Enlarged main pulmonary artery, which may be seen in setting of pulmonary hypertension. 4. Ioea-ar-cdqoulkq patchy bilateral ground-glass airspace opacities and scattered areas of consolidation may represent atypical infection. Venous duplex: Attestation: I have reviewed the pertinent imaging results. Radiologist's impression: Deep veins: Sonographic imaging demonstrates the left common femoral, deep femoral, superficial femoral, popliteal, posterior tibial and the contralateral right common femoral veins to be fully compressible with normal color Doppler blood flow. Superficial veins: Greater saphenous vein is fully compressible. No popliteal cyst. IMPRESSION: Normal left lower extremity venous ultrasound, no sign of deep venous thrombosis. Assessment and Plan Assessment and plan (1) Acute on chronic respiratory failure with hypoxia and hypercapnia: Problem comment: -acute on chronic recurrent in setting of acute pneumonia, history of severe persistent asthma, RODRICK, noncompliance with CPAP, HFpEF, body habitus -VBG pH 7.382, pCO2 77 (mostly chronic), PO2 60.5, HC03 45 -CTA chest shows Cdzz-sk-irhjgujc patchy bilateral ground-glass airspace opacities and scattered areas of consolidation may represent atypical infection -Mag 1.9, will give Mag sulfate 2 g IV, recheck in a.m. -admit to CCU for BiPAP overnight, weaning as able -antibiotic management for atypical pneumonia following recent hospitalization as outlined below -steroids, inhalers, nebulizers, incentive spirometry, aerobika -RT for pulmonary support - charge nurse discussed with Maria Elena, recommending settings of 15 and 5, with redraw VBG 30 minutes -has pulmonology appointment scheduled for 08/18/2024 Status: Acute (2) Pneumonia: Problem comment: -suspected, atypical, post recent hospitalization for RSV and pneumonia (at that time was on azithromycin and ceftriaxone) -leukocytosis with left shift, lactate 0.7, procalcitonin 0.07, triple swab negative, BC x1 pending -strep pneumo/Legionella pending, sputum culture/Gram stain ordered -will treat with vancomycin and Zosyn Status: Acute (3) Asthma: Problem comment: -PFTs done in November 2022: FEV1 0.74, 33% predicted, FEV1/FEV% 69, consistent with severe obstruction -methylprednisolone 125 mg on admission, followed by prednisone 60 mg daily -scheduled DuoNebs and albuterol nebs for now -continue singular, Symbicort -RT for pulmonary support -has Pulmonology appointment 08/18/2024 Status: Chronic (4) Heart failure with preserved ejection fraction: Problem comment: -BNP 412, previously 195 -PCP note from June notes [possible pulmonary edema, in the context of HFpEF: Chest x-ray on July 04 described as showing central pulmonary vascular congestion, and another ER x-ray on the was suspicious for heart failure and mild volume overload. Most recent echo January 2023 technically limited but showed normal ejection fraction at 65%] -CT chest today notes enlarged main pulmonary artery, which may be seen in setting of pulmonary hypertension. Echocardiogram 2 weeks ago, as noted below, shows an enlarged right ventricular cavity. Pulmonary artery reported as was not well visualized -continue home dose furosemide along with potassium supplement for now, monitoring for need for IV diuresis Echocardiogram 07/24/2024 Final Impressions: 1. Technically limited exam. 2. Normal LV function with EF of 64%. 3. Right ventricular cavity size is moderately enlarged, global systolic RV function is normal. 4. Echo contrast was administered to enhance visualization of all left ventricular segments. 5. The mitral valve is not well visualized, no mitral regurgitation. 6. The aortic valve is not well visualized, no stenosis and no regurgitation. Status: Chronic (5) RODRICK (obstructive sleep apnea): Problem comment: -remains noncompliant, tells me she has been misinterpreting instructions from her PCP -had previously stated that she was not using this because she was being worked up for vocal cord dysfunction (epic ENT PA note reviewed; no mention of holding CPAP, treating with nasal steroids and Pepcid at HS); admits her PCP has told her to continue to use her CPAP despite this -educated by RT and care team regarding importance of compliance -has follow-up appointment with pulmonology end of July, unclear if she is having another sleep study following this as well Status: Chronic (6) Vocal cord dysfunction: Problem comment: -per PCP note, [noted on video stroboscopy: Met with ENT in June. Recommended continued speech therapy, changed to Flonase nasal spray, and evening famotidine added] Status: Chronic (7) Blood glucose elevated: Problem comment: - Most recent A1C 6.2 - on steroids again, covering with SSI - outpatient f/u for pre-diabetes Status: Chronic (8) Pseudoseizures: Problem comment: -has seen Neurology -apparently more common when stressed -continue home Keppra dosing Status: Chronic (9) Anxiety and depression: Problem comment: -longstanding, continue home meds. No longer taking alprazolam secondary to adverse reaction Status: Chronic (10) Hypothyroidism: Problem comment: -continue levothyroxine Status: Chronic (11) Physical deconditioning: Problem comment: -and morbid obesity, BMI 53 -PT/OT Status: Chronic Plan Acuity is characterized as high and reflected in: Acute on chronic recurrent hypoxic hypercapnic respiratory failure requiring BiPAP, pneumonia, in setting of HFpEF, asthma, prediabetes, unmanaged RODRICK, noncompliant with CPAP This patient will require hospital services as outlined in the assessment and plan in order to stabilize and be safely discharged to a lower level of care. Because of the risk and acuity as described above, this patient cannot be managed at a lower level of care. Total Time Spent Total Time Spent: Today I spent 75 minutes seeing the patient, discussing the patient with ER staff, reviewing Expanse and Epic notes/diagnostics, discussing the care plan with our team that includes social work, PT/OT, pharmacy, RT, senior care and documenting my impressions and plan in the medical record.
[2024-08-05 21:29] LABS: pH VBG 7.382 (7.32-7.43)
[2024-08-05 21:31] LABS: HCO3 VBG 45 mmol/L (21-28); PCO2 VBG 77 mmHG (40-50); PO2 VBG 60.5 mmHG (25-47)
[2024-08-05] MEDS: VANCOMYCIN 1.5 GM/300 ML 1.5 GM/300 ML PIGGYBACK IVPB (21:31)
[2024-08-05 22:03] LABS: Procalcitonin* 0.07 ng/mL (<0.50)
[2024-08-05] MEDS: ALBUTEROL SULFATE 2.5 MG/3 ML VIAL.NEB NEB (22:36)
[2024-08-05] MEDS: METHYLPREDNISOLONE SOD SUCC 62.5 MG/ML (125) 125 MG IVP (22:52)
[2024-08-05 22:59] LABS: Base Excess ABG 13.9 mmol/L (-3.0-3.0); HCO3 ABG 43 mmol/L (21-28); Oxygen Saturation ABG 91 % (92-100); PO2 ABG 63.7 mmHG (80-105); TCO2 ABG 41 mmol/l (21-30); pH ABG 7.31 (7.35-7.45)
[2024-08-05] MEDS: MAGNESIUM IV 2 GM/50 ML PIGGYBACK IVPB (23:03)
[2024-08-05 23:04] LABS: ABG PCO2 87 mmHG (35-45)
[2024-08-06] VITALS (21 sets, daily range): BP systolic 105–140; BP diastolic 59–87; PULSE 97–110; RESP 16–24; TEMP 35.7–36.6; O2SAT 88–93
--- NOTE | 2024-08-06 00:06 | PC.NURSE ---
Called Shaye RT at [phone] for RT input after discussing critical PcO2 with Grisel Andrea. Shaye recommended adjusting Bipap settings to Ipap 15 Epap 5, maintain FiO2 at 40% and redraw VBG in approx 30 min after pt has bipap on with new settings, Grisel Andrea confirmed settings, adjusted Bipap. Pt conversing at baseline, O2 87-92% with Bipap on, using 2LPM NC chronically when Bipap off per pt baseline.
[2024-08-06 00:11] LABS: HCO3 VBG 43 mmol/L (21-28); PO2 VBG 53.5 mmHG (25-47); pH VBG 7.335 (7.32-7.43)
[2024-08-06 00:16] LABS: PCO2 VBG 80 mmHG (40-50)
[2024-08-06] MEDS: PIPERACILLIN/TAZOBACTAM 3.375 GM in 0.9 % SODIUM CHLORIDE Mini-bag 100 ML IVPB ×4 (02:00→19:40)
[2024-08-06] MEDS: ALBUTEROL SULFATE 2.5 MG/3 ML VIAL.NEB NEB ×4 (02:27→22:09)
[2024-08-06] MEDS: SODIUM CHLORIDE 0.9 % (FLUSH) 10 ML SYRINGE 5 ML IVF ×4 (02:45→19:44)
[2024-08-06] MEDS: IPRAT-ALBUT 0.5-2.5 MG/3 ML NEB 1 NEB IH ×4 (04:00→22:13)
[2024-08-06 04:40] LABS: Legionella pneumo Ag Urine L. pneumo Negative (Negative); S pneumo Ag Urine S. pneumo Negative (Negative)
[2024-08-06] MEDS: LEVOTHYROXINE 100 MCG TABLET PO (06:12)
--- NOTE | 2024-08-06 06:34 | PC.NURSE ---
Addendum entered by Caprice Lewis RN 08/06/24 06:52: Larry Car Operator educated pt regarding the importance of not attempting to drink fluids while Bipap being administered due to aspiration risk. IS education also performed though pt noted to have poor volume achieved. Original Note: End of shift note : Pt noted to be alert & oriented x 4. She reports she is incontinent of bowel and bladder at baseline. Therefore, external catheter was placed shortly after admission to unit. Tele in place with sinus tachycardia noted. Pt has been afebrile throughout the shift. She arrived to unit from ED on 3 liters oxygen via NC though started on BiPAP per PA order. Pt unable to safely transfer out of bed at this time due to weakness though is encouraged to help assist with her repositioning in bed as she is able to assist with this task. IV medications along with neb treatments administered per JUL. Pt noted to have dry nonproductive intermittent cough. No CP or N/V noted. TEDs and SCDs worn to BLEs with elevation encouraged. No c/o pain noted throughout the shift. Bed alarm on and call light within reach.
[2024-08-06 06:37] LABS: Hematocrit 34.9 % (33.0-51.0); Hemoglobin* 10.4 gm/dL (12.0-16.0); Mean Corpuscular HGB Conc 30 gm/dL (32-36); Mean Corpuscular Hemoglobin 30 pg (26-34); Mean Corpuscular Volume 99 fL (80-100); Platelet Count* 247 K/uL (140-440); Red Blood Count 3.52 m/uL (4.00-5.20)
[2024-08-06 06:43] LABS: HCO3 VBG 43 mmol/L (21-28); PO2 VBG 66.4 mmHG (25-47); pH VBG 7.355 (7.32-7.43)
[2024-08-06 06:46] LABS: PCO2 VBG 78 mmHG (40-50)
[2024-08-06 06:53] LABS: Slide Review Reflex No
[2024-08-06 07:01] LABS: Chloride* 94 mmol/L (96-114); Potassium* 4.3 mmol/L (3.6-5.1); Sodium* 139 mmol/L (135-149)
[2024-08-06 07:03] LABS: Blood Urea Nitrogen* 14 mg/dL (5-24); Creatinine* 0.6 mg/dL (0.5-1.5); Est. Creatinine Clearance* 209.66; Estimated Glomerular Filt Rate 111 ml/min
[2024-08-06 07:04] LABS: Calcium* 8.5 mg/dL (8.4-10.6); Glucose* 193 mg/dL (60-115)
[2024-08-06 07:05] LABS: Magnesium* 2.4 mg/dL (1.5-2.6)
[2024-08-06 07:07] LABS: C Reactive Protein* 3.3 mg/dL (0.5-1.0)
[2024-08-06 07:11] LABS: Anion Gap 7 mEq/L (7-15); Carbon Dioxide* 38 mmol/L (20-32)
--- NOTE | 2024-08-06 07:15 | P.IMPN_ITS ---
Progress Note: A&P Assessment and plan (1) Acute on chronic respiratory failure with hypoxia and hypercapnia: Problem details: -acute on chronic recurrent in setting of acute pneumonia, history of severe persistent asthma, RODRICK/noncompliance with CPAP, obesity hypoventilation, HFpEF -VBG pH 7.382, pCO2 77-80 (prior to 07/20, baseline was in the 50s, current baseline 70s), PO2 60.5, HC03 45 -CTA chest shows [id number] patchy bilateral ground-glass airspace opacities and scattered areas of consolidation may represent atypical infection -admission Mag 1.9, treated with improvement to 2.4 -admitted to CCU 08/05 for BiPAP, working with RT to wean -antibiotics, oral Prednisone, inhalers, nebulizers, incentive spirometry, aerobika -has pulmonology f/u appointment scheduled for 08/18/2024 Status: Acute (2) Pneumonia: Problem details: -suspected, atypical, post recent hospitalization for RSV and pneumonia (at that time was on azithromycin and ceftriaxone) -leukocytosis with left shift, lactate 0.7, procalcitonin 0.07, triple swab negative, BC x1 pending -strep pneumo/Legionella negative, sputum culture/Gram stain pending -Vancomcyin and Zosyn initiated 08/05, d/c Vanco 08/06 and adding Doxycycline Status: Acute (3) Asthma: Problem details: -PFTs done in November 2022: FEV1 0.74, 33% predicted, FEV1/FEV% 69, consistent with severe obstruction -methylprednisolone 125 mg on admission, followed by prednisone 60 mg daily (08/05) -scheduled DuoNebs and albuterol nebs for now -continue singular, Symbicort -RT following -has Pulmonology appointment 08/18/2024 Status: Chronic (4) Heart failure with preserved ejection fraction: Problem details: -chronic, may have mild exacerbation given weight gain (up 3-6kg from discharge on 07/30/24) and BNP up from 195 -> 412 -PCP note from June notes [possible pulmonary edema, in the context of HFpEF: Chest x-ray on July 04 described as showing central pulmonary vascular congestion, and another ER x-ray on the was suspicious for heart failure and mild volume overload. Most recent echo January 2023 technically limited but showed normal ejection fraction at 65%] -CT chest today notes enlarged main pulmonary artery, which may be seen in se tting of pulmonary hypertension (no history of this, recent TTE reassuring per below) -continue home dose furosemide along with potassium supplement for now, currently no need for IV diuresis, will monitor fluid balance Echocardiogram 07/24/2024 Final Impressions: 1. Technically limited exam. 2. Normal LV function with EF of 64%. 3. Right ventricular cavity size is moderately enlarged, global systolic RV function is normal. 4. Echo contrast was administered to enhance visualization of all left ventricular segments. 5. The mitral valve is not well visualized, no mitral regurgitation. 6. The aortic valve is not well visualized, no stenosis and no regurgitation. Status: Chronic (5) RODRICK (obstructive sleep apnea): Problem details: -remains noncompliant, tells me she has been misinterpreting instructions from her PCP -had previously stated that she was not using this because she was being worked up for vocal cord dysfunction ([facility] ENT PA note reviewed; no mention of holding CPAP, treating with nasal steroids and Pepcid at HS); admits her PCP has told her to continue to use her CPAP despite this -educated by RT and care team regarding importance of compliance -likely needs expedited BIPAP studies -has follow-up appointment with pulmonology end of July Status: Chronic (6) Vocal cord dysfunction: Problem details: -per PCP note: [noted on video stroboscopy: Met with ENT in June. R ecommended continued speech therapy, changed to Flonase nasal spray, and evening famotidine added] Status: Chronic (7) Blood glucose elevated: Problem details: - Most recent A1C 6.2 - on steroids again, covering with SSI - outpatient f/u for pre-diabetes Status: Chronic (8) Pseudoseizures: Problem details: -has seen Neurology -apparently more common when stressed -continue home Keppra dosing Status: Chronic (9) Anxiety and depression: Problem details: -longstanding, continue home meds (Alprazolam d/c'd after last stay) Status: Chronic (10) Hypothyroidism: Problem details: -continue levothyroxine, last TSH normal in 01/2024, will recheck as she's been suppressed in the past Status: Chronic (11) Physical deconditioning: Problem details: -and morbid obesity, BMI 53 -PT/OT Status: Chronic Plan - per above (BIPAP, abx, follow fluid balance, steroids) - continues to require CCU level care - Lovenox for ppx - father and stepmother updated at bedside, questions answered Subjective Date Seen: 08/06/24 Interval history: Paloma was admitted last night for acute on chronic hypoxic hypercarbic respiratory failure in the setting of known severe RODRICK, presumed obesity hypoventilation syndrome. CO2 in the ER of 80. Hospitalized here for the same 07/23-07/27. Placed on BIPAP in our CCU upon arrival to the floor. Since admission: - CTA in ER noted mild to moderate patchy bilateral GGOs concerning for atypical infection - negative RSV/COVID/Influenza - negative Strep Pneumo and Legionella antigens - on Zosyn and Doxycycline, received 1 dose of Vancomycin on admission (MRSA swab pending, was negative 07/23/24) Working with RT, able to remove BIPAP for nebs and meals today. Plaoma has no concerns for hospitalist team today. Her current JIN ([place]) has expressed concerns about accommodating her level of care needs. Exam Narrative: Exam Narrative: GEN: Alert and sitting up in bed, wearing BIPAP and able to speak in 4-5 word phrases HEENT: EOMIs bilaterally, no scleral icterus CV: RRR, No concerning murmurs R: No concerning wheezing, body habitus limits exam, decreased air movement throughout Ext: + BLE edema Skin: Intertrigo (breasts, groin), no other concerning skin lesions Neuro: No focal deficits on limited exam Psych: Appropriate Const: Vital Signs, click to edit/add: Vital Signs - 24 hr 08/05/24 18:05 08/05/24 18:57 08/05/24 19:38 Temperature Pulse Rate 111 H Pulse Rate [Pulse Oximeter] 112 H Pulse Rate [Right Pulse Oximeter] Respiratory Rate 28 H 24 Blood Pressure 133/75 Blood Pressure [Ri ght Arm] Pulse Oximetry 78 L 89 89 Oxygen Delivery Me thod Room Air Nasal Cannula Nasal Cannula Oxygen Flow Rate 3 3 08/05/24 19:57 08/05/24 21:31 08/05/24 21:50 Temperature 98.8 F 98.6 F Pulse Rate Pulse Rate [Pulse Oximeter] Pulse Rate [Right Pulse Oximeter] 106 H Respiratory Rate 24 24 Blood Pressure Blood Pressure [Ri ght Arm] 121/85 Pulse Oximetry 85 L 85 L Oxygen Delivery Me thod Nasal Cannula Nasal Cannula Oxygen Flow Rate 3 3 08/05/24 21:50 08/05/24 22:00 08/05/24 22:19 Temperature 98.6 F Pulse Rate 107 H Pulse Rate [Pulse Oximeter] Pulse Rate [Right Pulse Oximeter] 106 H Respiratory Rate 24 24 Blood Pressure Blood Pressure [Ri ght Arm] 121/85 Pulse Oximetry 85 L 92 Oxygen Delivery Me thod Nasal Cannula BiPAP Oxygen Flow Rate 3 08/05/24 22:33 08/05/24 23:00 08/06/24 00:00 Temperature 96.6 F L Pulse Rate Pulse Rate [Pulse Oximeter] Pulse Rate [Right Pulse Oximeter] 105 H 105 H Respiratory Rate 24 24 Blood Pressure Blood Pressure [Ri ght Arm] 123/75 105/59 L Pulse Oximetry 88 Oxygen Delivery Me thod BiPAP Oxygen Flow Rate 08/06/24 02:08 08/06/24 02:45 08/06/24 03:00 Temperature 96.8 F L Pulse Rate 107 H Pulse Rate [Pulse Oximeter] Pulse Rate [Right Pulse Oximeter] 109 H 109 H Respiratory Rate 24 24 Blood Pressure Blood Pressure [Ri ght Arm] 134/83 Pulse Oximetry 88 Oxygen Delivery Me thod BiPAP Oxygen Flow Rate 08/06/24 04:00 08/06/24 06:12 Temperature 97.8 F 97.1 F L Pulse Rate Pulse Rate [Pulse Oximeter] Pulse Rate [Right Pulse Oximeter] 108 H 104 H Respiratory Rate 24 24 Blood Pressure Blood Pressure [Ri ght Arm] 125/78 133/77 Pulse Oximetry 89 91 Oxygen Delivery Me thod BiPAP BiPAP Oxygen Flow Rate Labs Labs: Laboratory Results - last 24 hr 08/05/24 08/05/24 08/05/24 19:00 19:10 19:53 WBC 12.21 H RBC 3.71 L Hgb 10.7 L Hct 36.7 MCV 99 MCH 29 MCHC 29 L RDW Coeff of Tomy 14.3 Plt Count 275 Neut % (Auto) 81.2 H Lymph % (Auto) 10.[address] [place] % (Auto) 4.6 Eos % (Auto) 1.6 Baso % (Auto) 0.3 Neut # (Auto) 9.90 H Lymph # (Auto) 1.30 [place] # (Auto) 0.60 Eos # (Auto) 0.20 Baso # (Auto) 0.00 Abs Immat Gran (auto) 0.20 Imm/Tot Granulo (auto) 1.4 ABG pH ABG pCO2 ABG pO2 ABG HCO3 ABG Total CO2 ABG O2 Saturation ABG Base Excess VBG pH 7.382 VBG pCO2 77 H* VBG pO2 60.5 H VBG HCO3 45 H Sodium 140 Potassium 3.9 Chloride 92 L Carbon Dioxide 39 H Anion Gap 9 BUN 14 Creatinine 0.7 Estimated Creat Clear 174.30 Estimated GFR 107 Glucose 140 H Lactate 0.7 Calcium 8.6 Magnesium 1.9 Total Bilirubin 0.4 AST 20 ALT 30 Alkaline Phosphatase 99 Troponin I < 0.01 L C-Reactive Protein NT-Pro-B Natriuret Pep 412 Total Protein 7.3 Albumin 4.0 Procalcitonin 0.07 Urine L. pneumophilia Ag Urine Strep pneumoniae Ag SARS-CoV-2 (PCR) Negative SARS-CoV-2 Influenza Type A (PCR) Negative PCR FLU A Influenza Type B (PCR) Negative PCR FLU B RSV (PCR) Negative PCR RSV Lab Acknowledgement Test Added POC Creatinine 0.9 08/05/24 08/05/24 08/06/24 21:31 22:55 00:05 WBC RBC Hgb Hct MCV MCH MCHC RDW Coeff of Tomy Plt Count Neut % (Auto) Lymph % (Auto) [place] % (Auto) Eos % (Auto) Baso % (Auto) Neut # (Auto) Lymph # (Auto) [place] # (Auto) Eos # (Auto) Baso # (Auto) Abs Immat Gran (auto) Imm/Tot Granulo (auto) ABG pH 7.31 L ABG pCO2 87 H* ABG pO2 63.7 L ABG HCO3 43 H ABG Total CO2 41 H ABG O2 Saturation 91 L ABG Base Excess 13.9 H VBG pH 7.335 VBG pCO2 80 H* VBG pO2 53.5 H VBG HCO3 43 H Sodium Potassium Chloride Carbon Dioxide Anion Gap BUN Creatinine Estimated Creat Clear Estimated GFR Glucose Lactate Calcium Magnesium Total Bilirubin AST ALT Alkaline Phosphatase Troponin I C-Reactive Protein NT-Pro-B Natriuret Pep Total Protein Albumin Procalcitonin Urine L. pneumophilia Ag Urine Strep pneumoniae Ag SARS-CoV-2 (PCR) Influenza Type A (PCR) Influenza Type B (PCR) RSV (PCR) Lab Acknowledgement Test Added POC Creatinine 08/06/24 08/06/24 04:15 05:57 WBC 11.20 H RBC 3.52 L Hgb 10.4 L Hct 34.9 MCV 99 MCH 30 MCHC 30 L RDW Coeff of Tomy Plt Count 247 Neut % (Auto) Lymph % (Auto) [place] % (Auto) Eos % (Auto) Baso % (Auto) Neut # (Auto) Lymph # (Auto) [place] # (Auto) Eos # (Auto) Baso # (Auto) Abs Immat Gran (auto) Imm/Tot Granulo (auto) ABG pH ABG pCO2 ABG pO2 ABG HCO3 ABG Total CO2 ABG O2 Saturation ABG Base Excess VBG pH 7.355 VBG pCO2 78 H* VBG pO2 66.4 H VBG HCO3 43 H Sodium 139 Potassium 4.3 Chloride 94 L Carbon Dioxide 38 H Anion Gap 7 BUN 14 Creatinine 0.6 Estimated Creat Clear 209.66 Estimated GFR 111 Glucose 193 H Lactate Calcium 8.5 Magnesium 2.4 Total Bilirubin AST ALT Alkaline Phosphatase Troponin I C-Reactive Protein 3.3 H NT-Pro-B Natriuret Pep Total Protein Albumin Procalcitonin Urine L. pneumophilia Ag L. pneumo Negative Urine Strep pneumoniae Ag S. pneumo Negative SARS-CoV-2 (PCR) Influenza Type A (PCR) Influenza Type B (PCR) RSV (PCR) Lab Acknowledgement POC Creatinine
[2024-08-06] MEDS: INSULIN ASPART 100 UNIT/ML SUBCUT ×4 (08:25→21:19)
[2024-08-06] MEDS: FLUTICASONE PROPIONATE NASAL 2 SPRAY NOSTRIL-B (08:27)
[2024-08-06] MEDS: PARoxetine 20 MG TABLET 40 MG PO (08:29)
[2024-08-06] MEDS: POTASSIUM CHLORIDE 10 MEQ CAPSULE ER 20 MEQ PO (08:29)
[2024-08-06] MEDS: predniSONE 20 MG TABLET 60 MG PO (08:31)
[2024-08-06] MEDS: FAMOTIDINE 20 MG TABLET PO ×2 (08:31→21:11)
[2024-08-06] MEDS: OMEPRAZOLE 20 MG CAPSULE DR 40 MG PO (08:31)
[2024-08-06] MEDS: FUROSEMIDE 20 MG TABLET PO ×2 (08:31→12:42)
[2024-08-06] MEDS: levETIRAcetam 500 MG TABLET 750 MG PO ×2 (08:31→21:11)
--- NOTE | 2024-08-06 09:13 | NUTR.NU ---
RDN with nutrition screen related to positive skin risk. Patient admitted for respiratory failure and pneumonia. Medical history significant for RODRICK (obstructive sleep apnea), ADHD, Hyperlipidemia, Anxiety and depression. Patient currently resides in assisted living. Current weight 252lb 9.6oz; height 4ft 9in; BMI 54.7kg/m2. Per weight history in EMR, many weights are stated. Patient seems to have gained about 5-7lbs since last admit. Current diet order is Regular. No meal intakes recorded yet since admit. No nutrition interventions at this time. RDN will monitor and follow-up prn.
--- NOTE | 2024-08-06 09:58 | PC.SOCIAL ---
Discharge planning: Called [facility] assisted living [phone] regarding early discharge planning as pt is not yet ready to leave the hospital. Spoke with Director of [facility], Melissa, who confirmed they have had a discussion with pt regarding possible move from [facility] to a SNF for increased care. Pt has agreed to have them look for placement in a SNF and information has been sent yesterday from [facility] to [facility] and [facility] [place]. Per Melissa, pt can return to [facility] at discharge if she does not have medical needs they can not meet. Pt has had the CPAP her entire stay at [facility] and staff do not believe she has used it there. If it is determined that pt needs BIPAP, [facility] will be unable to accept pt as they can not manage that level of care. If pt returns to [facility], they will continue to look for long-term SNF placement from there. bottom worker to follow up with pt and facilities regarding long-term care placement and update [facility] on discharge level of care needed when determined to have her assessed to see if she is appropriate for discharge back to [facility] if there is no available long-term care bed. Social work to follow up as needed.
--- NOTE | 2024-08-06 13:37 | RESP.RT ---
Patient placed on Bipap overnight. 15/5, R 10, 40%. Patient doing well this am. Mask adjusted. Patient weaned from Bipap and placed on 4 lpm nasal cannula by RN to keep oxygen between 88-92%. Patient 89-90% on 4 lpm nasal cannula, no distress noted. Will continue to monitor.
[2024-08-06] MEDS: ACETAMINOPHEN 325 MG TABLET PO (15:17)
[2024-08-06] MEDS: DOXYCYCLINE HYCLATE 100 MG PO (21:10)
[2024-08-06] MEDS: ENOXAPARIN 40 MG/0.4 ML INJ SUBCUT (21:10)
[2024-08-06] MEDS: MONTELUKAST 10 MG TABLET PO (21:12)
[2024-08-06] MEDS: MIRTAZAPINE 15 MG TABLET PO (21:12)
[2024-08-06] MEDS: NYSTATIN CREAM 30 GM 1 APPLIC TOPICAL (22:52)
[2024-08-07] VITALS (8 sets, daily range): BP systolic 128–139; BP diastolic 84–95; PULSE 90–120; RESP 16–20; TEMP 36.3–36.4; O2SAT 88–92
[2024-08-07] MEDS: ALBUTEROL SULFATE 2.5 MG/3 ML VIAL.NEB NEB ×2 (02:14→05:53)
[2024-08-07] MEDS: PIPERACILLIN/TAZOBACTAM 3.375 GM in 0.9 % SODIUM CHLORIDE Mini-bag 100 ML IVPB ×2 (02:17→08:38)
[2024-08-07] MEDS: SODIUM CHLORIDE 0.9 % (FLUSH) 10 ML SYRINGE 5 ML IVF ×3 (02:30→08:44)
[2024-08-07] MEDS: ONDANSETRON 2 MG/ML inj 4 MG IVP (03:09)
[2024-08-07] MEDS: IPRAT-ALBUT 0.5-2.5 MG/3 ML NEB 1 NEB IH (04:08)
[2024-08-07] MEDS: LEVOTHYROXINE 100 MCG TABLET PO (05:53)
[2024-08-07 06:14] LABS: Basophils Percent Auto 0.1 % (0.0-3.0); Eosinophils Percent Auto 0.1 % (0.0-7.0); HCO3 VBG 42 mmol/L (21-28); Hematocrit 36.2 % (33.0-51.0); Hemoglobin* 10.5 gm/dL (12.0-16.0); Immature Granulocytes Pct Auto 0.9 %; Lymphocytes Percent Auto 5.4 % (20-44); Mean Corpuscular HGB Conc 29 gm/dL (32-36); Mean Corpuscular Hemoglobin 29 pg (26-34); Mean Corpuscular Volume 100 fL (80-100); Monocytes Percent Auto 5.7 % (0.0-11.0); Neutrophils Percent Auto 87.8 % (42.0-72.0); Platelet Count* 252 K/uL (140-440); RDW Coefficient of Variation % 14.3 % (11.5-15.5); Red Blood Count 3.62 m/uL (4.00-5.20); White Blood Count* 15.97 K/uL (4.50-11.00)
[2024-08-07 06:17] LABS: PCO2 VBG 87 mmHG (40-50)
[2024-08-07 06:19] LABS: Slide Review Reflex No
--- NOTE | 2024-08-07 06:32 | PC.NURSE ---
End of shift note [id number]: Pt A&Ox4 and able to make needs known. Pt on oxygen 4 LPM via NC during waking hours per RT and on BiPAP overnight per PA. Pt has been afebrile throughout the shift. Tele in place with NSR noted for most of shift, though pt slightly tachycardic at times. External catheter in place due to hx of urinary incontinence though pt also continent of bladder and bowel this shift using BSC. Pt did express some feelings of anxiety about what her discharge plan will be as she does realize she may not be able to return to her AL due to current needs. Passenger Brakeman provided 1:1 support. Pt able to pivot transfer to BSC using SBA, rolling walker and gait belt though becomes easily short of breath after minimal exertion. Pt continues to have dry nonproductive cough with IS encouraged. Pt refusing TEDs and SCDs when educated. Reddened skin folds treated with PRN Nystatin cream after cleansing and drying. IVs to bilateral arms patent and SL. Pt had one episode of what she reports as pseudoseizures this morning after first putting her call light on. Pt reports episodes are brought on by stress as she is stressed about discharge plan. Pt has documented hx of this. Scheduled neb treatments & antibiotics administered per EMAR. Lung sounds noted to be diminished to all lobes bilaterally. Bed alarm on and call light within reach.
[2024-08-07 07:00] LABS: Chloride* 96 mmol/L (96-114); Potassium* 4.1 mmol/L (3.6-5.1); Sodium* 141 mmol/L (135-149)
[2024-08-07 07:02] LABS: Blood Urea Nitrogen* 16 mg/dL (5-24); Creatinine* 0.6 mg/dL (0.5-1.5); Est. Creatinine Clearance* 213.15; Estimated Glomerular Filt Rate 111 ml/min
[2024-08-07 07:03] LABS: Glucose* 171 mg/dL (60-115)
[2024-08-07 07:06] LABS: C Reactive Protein* 2.2 mg/dL (0.5-1.0)
[2024-08-07 07:11] LABS: Anion Gap 9 mEq/L (7-15); Carbon Dioxide* 36 mmol/L (20-32)
--- NOTE | 2024-08-07 07:13 | P.IMPN_ITS ---
Progress Note: A&P Assessment and plan (1) Acute on chronic respiratory failure with hypoxia and hypercapnia: Problem details: -acute on chronic recurrent in setting of acute pneumonia, history of severe persistent asthma, RODRICK/noncompliance with CPAP, obesity hypoventilation, HFpEF -VBG pH 7.382, pCO2 77-80 (prior to 07/20, baseline was in the 50s, current baseline 70s), PO2 60.5, HC03 45 -CTA chest shows Kiwi-sp-gecyykxm patchy bilateral ground-glass airspace opacities and scattered areas of consolidation may represent atypical infection -admission Mag 1.9, treated with improvement to 2.4 -admitted to CCU 08/05 for BiPAP, working with RT to wean -antibiotics, oral Prednisone, inhalers, nebulizers, incentive spirometry, aerobika -has pulmonology f/u appointment scheduled for 08/18/2024 Status: Acute (2) Pneumonia: Problem details: -suspected, atypical, post recent hospitalization for RSV and pneumonia (at that time was on azithromycin and ceftriaxone) -leukocytosis with left shift, lactate 0.7, procalcitonin 0.07, triple swab negative, BC x1 pending -strep pneumo/Legionella negative, sputum culture/Gram stain pending -Vancomcyin and Zosyn initiated 08/05, d/c Vanco 08/06 and adding Doxycycline Status: Acute (3) Asthma: Problem details: -PFTs done in November 2022: FEV1 0.74, 33% predicted, FEV1/FEV% 69, consistent with severe obstruction -methylprednisolone 125 mg on admission, followed by prednisone 60 mg daily (08/05) -scheduled DuoNebs and albuterol nebs for now -continue singular, Symbicort -RT following -has Pulmonology appointment 08/18/2024 Status: Chronic (4) Heart failure with preserved ejection fraction: Problem details: -chronic, may have mild exacerbation given weight gain (up 3-6kg from discharge on 07/30/24) and BNP up from 195 -> 412 -PCP note from June notes [possible pulmonary edema, in the context of HFpEF: Chest x-ray on July 04 described as showing central pulmonary vascular congestion, and another ER x-ray on the was suspicious for heart failure and mild volume overload. Most recent echo January 2023 technically limited but showed normal ejection fraction at 65%] -CT chest today notes enlarged main pulmonary artery, which may be seen in se tting of pulmonary hypertension (no history of this, recent TTE reassuring per below) -continue home dose furosemide along with potassium supplement for now, currently no need for IV diuresis, will monitor fluid balance Echocardiogram 07/24/2024 Final Impressions: 1. Technically limited exam. 2. Normal LV function with EF of 64%. 3. Right ventricular cavity size is moderately enlarged, global systolic RV function is normal. 4. Echo contrast was administered to enhance visualization of all left ventricular segments. 5. The mitral valve is not well visualized, no mitral regurgitation. 6. The aortic valve is not well visualized, no stenosis and no regurgitation. Status: Chronic (5) RODRICK (obstructive sleep apnea): Problem details: -remains noncompliant, tells me she has been misinterpreting instructions from her PCP -had previously stated that she was not using this because she was being worked up for vocal cord dysfunction ([facility] ENT PA note reviewed; no mention of holding CPAP, treating with nasal steroids and Pepcid at HS); admits her PCP has told her to continue to use her CPAP despite this -educated by RT and care team regarding importance of compliance -likely needs expedited BIPAP studies -has follow-up appointment with pulmonology end of July Status: Chronic (6) Vocal cord dysfunction: Problem details: -per PCP note: [noted on video stroboscopy: Met with ENT in June. R ecommended continued speech therapy, changed to Flonase nasal spray, and evening famotidine added] Status: Chronic (7) Blood glucose elevated: Problem details: - Most recent A1C 6.2 - on steroids again, covering with SSI - outpatient f/u for pre-diabetes Status: Chronic (8) Pseudoseizures: Problem details: -has seen Neurology -apparently more common when stressed -continue home Keppra dosing Status: Chronic (9) Anxiety and depression: Problem details: -longstanding, continue home meds (Alprazolam d/c'd after last stay) Status: Chronic (10) Hypothyroidism: Problem details: -continue levothyroxine, last TSH normal in 01/2024, will recheck as she's been suppressed in the past Status: Chronic (11) Physical deconditioning: Problem details: -and morbid obesity, BMI 53 -PT/OT Status: Chronic Subjective Date Seen: 08/07/24 Interval history: Paloma was admitted on 08/05/24 for acute on chronic hypoxic hypercarbic respiratory failure in the setting of known severe RODRICK, presumed obesity hypoventilation syndrome. History of previous hospitalization for this (+ RSV) 07/23-07/27/24. CO2 in the ER was 80. Placed on BIPAP in our CCU upon arrival to the floor. Since admission: - CTA in ER noted mild to moderate patchy bilateral GGOs concerning for atypical infection - negative RSV/COVID/Influenza, afebrile - negative Strep Pneumo and Legionella antigens - on Zosyn and Doxycycline, received 1 dose of Vancomycin on admission (MRSA swab negative) - VBG 08/07/24 + for Co2 of 87 with pH of 7.29 Working with RT, able to remove BIPAP for nebs and meals today. Paloma has no concerns for hospitalist team today. Her current JIN ([place]) has expressed concerns about accommodating her level of care needs. Exam Const: Vital Signs, click to edit/add: Vital Signs - 24 hr 08/06/24 07:23 08/06/24 08:05 08/06/24 10:13 Temperature 97.9 F 97.2 F L Pulse Rate 103 H Pulse Rate [Right Pulse Oximeter] 101 H 110 H Respiratory Rate 18 18 Blood Pressure [Ri ght Arm] 120/85 121/81 Pulse Oximetry 93 92 Oxygen Delivery Me thod BiPAP Nasal Cannula Oxygen Flow Rate 4 08/06/24 10:36 08/06/24 12:32 08/06/24 12:58 Temperature 97.3 F L Pulse Rate 106 H Pulse Rate [Right Pulse Oximeter] 107 H Respiratory Rate 20 Blood Pressure [Ri ght Arm] 127/87 Pulse Oximetry 91 Oxygen Delivery Me thod Nasal Cannula Nasal Cannula Oxygen Flow Rate 4 4 08/06/24 14:25 08/06/24 17:15 08/06/24 17:21 Temperature 97.8 F 97.5 F L Pulse Rate 100 Pulse Rate [Right Pulse Oximeter] 105 H 105 H Respiratory Rate 18 20 Blood Pressure [Ri ght Arm] 128/82 131/87 Pulse Oximetry 93 92 Oxygen Delivery Me thod Nasal Cannula Nasal Cannula Oxygen Flow Rate 4 4 08/06/24 19:00 08/06/24 19:04 08/06/24 19:46 Temperature 96.3 F L Pulse Rate 104 H Pulse Rate [Right Pulse Oximeter] 104 H 104 H Respiratory Rate 20 20 Blood Pressure [Ri ght Arm] 133/79 Pulse Oximetry 93 Oxygen Delivery Me thod Nasal Cannula Oxygen Flow Rate 4 08/06/24 22:07 08/06/24 22:54 08/06/24 23:00 Temperature 97.2 F L Pulse Rate 97 Pulse Rate [Right Pulse Oximeter] 102 H 97 Respiratory Rate 16 16 Blood Pressure [Ri ght Arm] 140/83 H Pulse Oximetry 89 Oxygen Delivery Me thod Nasal Cannula Oxygen Flow Rate 4 08/06/24 23:56 08/07/24 02:00 08/07/24 02:52 Temperature 97.2 F L 97.4 F L Pulse Rate 97 Pulse Rate [Right Pulse Oximeter] 98 90 Respiratory Rate 18 20 Blood Pressure [Ri ght Arm] 131/81 139/95 H Pulse Oximetry 92 92 Oxygen Delivery Me thod BiPAP BiPAP Oxygen Flow Rate 08/07/24 03:15 08/07/24 04:00 08/07/24 05:56 Temperature 97.3 F L 97.4 F L Pulse Rate Pulse Rate [Right Pulse Oximeter] 90 102 H 107 H Respiratory Rate 20 16 16 Blood Pressure [Ri ght Arm] 137/86 128/84 Pulse Oximetry 92 88 Oxygen Delivery Me thod BiPAP BiPAP Oxygen Flow Rate Labs Labs: Laboratory Results - last 24 hr 08/07/24 05:44 WBC 15.97 H RBC 3.62 L Hgb 10.5 L Hct 36.2 MCV 100 MCH 29 MCHC 29 L RDW Coeff of Tomy 14.3 Plt Count 252 Neut % (Auto) 87.8 H Lymph % (Auto) 5.4 L [place] % (Auto) 5.7 Eos % (Auto) 0.1 Baso % (Auto) 0.1 Neut # (Auto) 14.00 H Lymph # (Auto) 0.90 [place] # (Auto) 0.90 Eos # (Auto) 0.00 Baso # (Auto) 0.00 Abs Immat Gran (auto) 0.10 Imm/Tot Granulo (auto) 0.9 VBG pH 7.290 L VBG pCO2 87 H* VBG pO2 78.0 H VBG HCO3 42 H Sodium 141 Potassium 4.1 Chloride 96 Carbon Dioxide 36 H Anion Gap 9 BUN 16 Creatinine 0.6 Estimated Creat Clear 213.15 Estimated GFR 111 Glucose 171 H Calcium 9.0 C-Reactive Protein 2.2 H
[2024-08-07 07:20] LABS: Thyroid Stimulating Hormone* 0.575 uIU/mL (0.270-4.20)
[2024-08-07] MEDS: FAMOTIDINE 20 MG TABLET PO (08:39)
[2024-08-07] MEDS: POTASSIUM CHLORIDE 10 MEQ CAPSULE ER 20 MEQ PO (08:39)
[2024-08-07] MEDS: predniSONE 20 MG TABLET 60 MG PO (08:39)
[2024-08-07] MEDS: levETIRAcetam 500 MG TABLET 750 MG PO (08:40)
[2024-08-07] MEDS: OMEPRAZOLE 20 MG CAPSULE DR 40 MG PO (08:40)
[2024-08-07] MEDS: FUROSEMIDE 20 MG TABLET PO (08:40)
[2024-08-07] MEDS: DOXYCYCLINE HYCLATE 100 MG PO (08:40)
[2024-08-07] MEDS: PARoxetine 20 MG TABLET 40 MG PO (08:40)
[2024-08-07] MEDS: INSULIN ASPART 100 UNIT/ML SUBCUT (08:45)
[2024-08-07 09:41] LABS: HCO3 VBG 42 mmol/L (21-28); PO2 VBG 76.5 mmHG (25-47); pH VBG 7.314 (7.32-7.43)
[2024-08-07 09:43] LABS: PCO2 VBG 82 mmHG (40-50)
--- NOTE | 2024-08-07 09:46 | PM.DST ---
Transfer Discharge Sum: Prov Provider Date Seen: 08/07/24 Date of admission: 08/05/24 21:31 Primary care physician: Geronimo Lamb MD Consults: 08/05/24 21:31 Consult to Occupational Therapy [CONS] Routine Comment: Reason(s) for OT Consult:: Evaluate and Treat Any Restrictions?:: No Restrictions Consult to Physical Therapy [CONS] Routine Comment: Reason(s) for PT Consult:: Evaluate and Treat Any Restrictions?:: No Restrictions Consult to Respiratory Therapy [CONS] Routine Comment: Reason(s) for RT Consult:: Consult Consult to Missile Facilities Repairer [CONS] Routine Comment: Reason for Consult:: Social Service Consult Attending physician on discharge: Eleanor Presley Anticipated date of transfer: 08/07/24 Receiving physician/facility: Dr. Pooja NGUYEN ([employer]) DS: Diagnosis Discharge Diagnosis (1) Acute on chronic respiratory failure with hypoxia and hypercapnia: Status: Acute Problem details: -acute on chronic recurrent in setting of acute pneumonia, history of severe persistent asthma, RODRICK/noncompliance with CPAP, obesity hypoventilation, HFpEF -VBG pH 7.382, pCO2 77-80 (prior to 07/20, baseline was in the 50s, current baseline 70s), PO2 60.5, HC03 45 -CTA chest shows [id number]-goxaqxfs patchy bilateral ground-glass airspace opacities and scattered areas of consolidation may represent atypical infection -admission Mag 1.9, treated with improvement to 2.4 (2) Pneumonia: Status: Acute Problem details: -suspected, atypical, post recent hospitalization for RSV and pneumonia (at that time was on azithromycin and ceftriaxone) -leukocytosis with left shift, lactate 0.7, procalcitonin 0.07, triple swab negative, BC x1 pending (NO GROWTH upon transfer 08/07) -strep pneumo/Legionella negative -Vancomcyin and Zosyn initiated 08/05, d/c Vanco 08/06 and adding Doxycycline (3) Asthma: Status: Chronic Problem details: -PFTs done in November 2022: FEV1 0.74, 33% predicted, FEV1/FEV% 69, consistent with severe obstruction -methylprednisolone 125 mg on admission, followed by prednisone 60 mg daily (08/05) -scheduled DuoNebs and albuterol nebs for now -continued singular, Symbicort (4) Heart failure with preserved ejection fraction: Status: Chronic Problem details: -chronic, may have mild exacerbation given weight gain (up 3-6kg from discharge on 07/30/24) and BNP up from 195 -> 412 -PCP note from June notes [possible pulmonary edema, in the context of HFpEF: Chest x-ray on July 04 described as showing central pulmonary vascular congestion, and another ER x-ray on the was suspicious for heart failure and mild volume overload. Most recent echo January 2023 technically limited but showed normal ejection fraction at 65%] -CT chest 08/05 notes enlarged main pulmonary artery, which may be seen in setting of pulmonary hypertension (no history of this, recent TTE reassuring per below) -was on home Furosemide dose (20mg BID), receiving IV Furosemide x1 prior to transfer to [facility] Echocardiogram 07/24/2024 Final Impressions: 1. Technically limited exam. 2. Normal LV function with EF of 64%. 3. Right ventricular cavity size is moderately enlarged, global systolic RV function is normal. 4. Echo contrast was administered to enhance visualization of all left ventricular segments. 5. The mitral valve is not well visualized, no mitral regurgitation. 6. The aortic valve is not well visualized, no stenosis and no regurgitation. (5) RODRICK (obstructive sleep apnea): Status: Chronic Problem details: -noncompliant with CPAP at home, some confusion regarding recommendations -had previously stated that she was not using this because she was being worked up for vocal cord dysfunction ([facility] ENT PA note reviewed; no mention of holding CPAP, treating with nasal steroids and Pepcid at HS); admits her PCP has told her to continue to use her CPAP despite this -educated by RT and care team regarding importance of compliance -likely needs expedited BIPAP studies -has follow-up appointment with pulmonology end of July (6) Vocal cord dysfunction: Status: Chronic Problem details: -per PCP note: [noted on video stroboscopy: Met with ENT in June. Recommended continued speech therapy, changed to Flonase nasal spray, and evening famotidine added] (7) Blood glucose elevated: Status: Chronic Problem details: - Most recent A1C 6.2 - on steroids again, covering with SSI - outpatient f/u for pre-diabetes (8) Pseudoseizures: Status: Chronic Problem details: -has seen Neurology -apparently more common when stressed -continue home Keppra dosing (9) Anxiety and depression: Status: Chronic Problem details: -longstanding, continue home Paroxetine (Alprazolam d/c'd in late June given risk of respiratory depression (10) Hypothyroidism: Status: Chronic Problem details: -continue levothyroxine, TSH 0.575 on 08/07/24 (11) Physical deconditioning: Status: Chronic Problem details: -and morbid obesity, BMI 53 -PT/OT Transfer Discharge Sum: Med Medications Active and Home Medications: Home Medications albuterol sulfate 90 mcg/actuation aerosol inhaler 1 - 2 puff inhalation Q4H PRN 11/30/21 [History Confirmed 08/06/24] mirabegron 50 mg tablet,extended release 24 hr (Myrbetriq) 50 mg PO DAILY 11/30/21 [History Confirmed 08/06/24] montelukast 10 mg tablet 10 mg PO HS 11/30/21 [History Confirmed 08/06/24] levetiracetam 750 mg tablet (Keppra) 750 mg PO BID 11/25/22 [History Confirmed 08/06/24] paroxetine HCl 40 mg tablet 40 mg PO DAILY 01/30/23 [History Confirmed 08/06/24] budesonide-formoterol HFA 160 mcg-4.5 mcg/actuation aerosol inhaler (Symbicort) 2 puff inhalation BID #1 g 02/02/23 [Rx Confirmed 08/06/24] levothyroxine 100 mcg tablet 100 mcg PO DAILY 10/16/23 [History Confirmed 08/06/24] famotidine 20 mg tablet 20 mg PO BID 07/23/24 [History Confirmed 08/06/24] fluticasone propionate 50 mcg/actuation nasal spray,suspension 2 spray intranasal DAILY 07/23/24 [History Confirmed 08/06/24] furosemide 20 mg tablet 20 mg PO BID@08,12 07/23/24 [History Confirmed 08/06/24] ipratropium 0.5 mg-albuterol 3 mg (2.5 mg base)/3 mL nebulization soln 1 ml inhalation TID 07/23/24 [History Confirmed 08/06/24] mirtazapine 15 mg tablet 15 mg PO HS 07/23/24 [History Confirmed 08/06/24] cholecalciferol (vitamin D3) 50 mcg (2,000 unit) tablet 50 mcg PO DAILY 08/06/24 [History Confirmed 08/06/24] guaifenesin 600 mg tablet, extended release 12 hr (Mucus Relief ER) 600 mg PO BID PRN 08/06/24 [History Confirmed 08/06/24] omeprazole 40 mg capsule,delayed release 40 mg PO DAILY 08/06/24 [History Confirmed 08/06/24] polyethylene glycol 3350 17 gram/dose oral powder 17 g PO DAILY PRN 08/06/24 [History Confirmed 08/06/24] potassium chloride 10 mEq tablet,extended release(part/cryst) 20 meq PO DAILY 08/06/24 [History Confirmed 08/06/24] Active Medications Acetaminophen (Acetaminophen 325 Mg Tablet) 650 - 975 mg PO Q6H PRN Last Admin: 08/06/24 15:17 Dose: 975 mg Albuterol (Albuterol Sulfate 2.5 Mg/3 Ml Vial.Neb) 2.5 mg NEB Q4H GORDY Last Admin: 08/07/24 05:53 Dose: 2.5 mg Albuterol/Ipratropium (Iprat-Albut 0.5-2.5 Mg/3 Ml Neb) 1 neb IH Q6H [facility] Last Admin: 08/07/24 04:08 Dose: 1 neb Bisacodyl (Bisacodyl 10 Mg Supp.Rect) 10 mg UT DAILY PRN Doxycycline Hyclate (Doxycycline Hyclate 100 Mg) 100 mg PO BID [facility] Last Admin: 08/07/24 08:40 Dose: 100 mg Enoxaparin Sodium (Enoxaparin 40 Mg/0.4 Ml Inj) 40 mg SUBCUT HS [facility] Last Admin: 08/06/24 21:10 Dose: 40 mg Famotidine (Famotidine 20 Mg Tablet) 20 mg PO BID [facility] Last Admin: 08/07/24 08:39 Dose: 20 mg Fluticasone Propionate (Fluticasone Propionate Nasal) 2 spray NOSTRIL-B DAILY [facility] Last Admin: 08/07/24 09:11 Dose: Not Given Furosemide (Furosemide 20 Mg Tablet) 20 mg PO BID@08,12 [facility] Last Admin: 08/07/24 08:40 Dose: 20 mg Furosemide (Furosemide 10 Mg/Ml Inj) 40 mg IVP ONCE ONE Stop: 08/07/24 09:35 Guaifenesin (Guaifenesin 600 Mg Tab.Er.12h) 600 mg PO BID PRN Piperacillin Sod/Tazobactam (Sod 3.375 gm/ Sodium Chloride) 100 mls @ 200 mls/hr IVPB Q6H [facility] Last Admin: 08/07/24 08:38 Dose: 200 mls/hr Insulin Aspart (Insulin Aspart 100 Unit/Ml) 0 unit SUBCUT ACHS [facility]; Protocol Last Admin: 08/07/24 08:45 Dose: 1 unit Levetiracetam (Levetiracetam 500 Mg Tablet) 750 mg PO BID [facility] Last Admin: 08/07/24 08:40 Dose: 750 mg Levothyroxine Sodium (Levothyroxine 100 Mcg Tablet) 100 mcg PO DAILY@0700 [facility] Last Admin: 08/07/24 05:53 Dose: 100 mcg Melatonin (Melatonin 3 Mg Tablet) 3 - 6 mg PO HS PRN Mirtazapine (Mirtazapine 15 Mg Tablet) 15 mg PO HS [facility] Last Admin: 08/06/24 21:12 Dose: 15 mg Montelukast Sodium (Montelukast 10 Mg Tablet) 10 mg PO HS [facility] Last Admin: 08/06/24 21:12 Dose: 10 mg Budesonide- Formoterol [ Symbicort] 160-4.5 Mcg/Actuation 2 puff IH BID [facility] Last Admin: 08/07/24 09:11 Dose: Not Given Mirabegron [ Myrbetriq] 50 Mg Tablet Extended Release 24 Hr 50 mg PO DAILY [facility] Last Admin: 08/07/24 09:11 Dose: Not Given Terbinafine Hcl 1 % (Cream) 1 applic TOPICAL BID [facility] Last Admin: 08/07/24 09:11 Dose: Not Given Nystatin (Nystatin Cream 30 Gm) 1 applic TOPICAL TID PRN Last Admin: 08/06/24 22:52 Dose: 1 applic Omeprazole (Omeprazole [address]) 40 mg PO DAILY [facility] Last Admin: 08/07/24 08:40 Dose: 40 mg Ondansetron HCl (Ondansetron 2 Mg/Ml Inj) 4 mg IVP Q4H PRN PRN Reason: Nausea Last Admin: 08/07/24 03:09 Dose: 4 mg Paroxetine HCl (Paroxetine 20 Mg Tablet) 40 mg PO DAILY [facility] Last Admin: 08/07/24 08:40 Dose: 40 mg Polyethylene Glycol (Polyethylene Glycol 3350 17 Gm Pack) 17 gm PO DAILY PRN Potassium Chloride (Potassium Chloride 10 Meq Capsule Er) 20 meq PO DAILY [facility] Last Admin: 08/07/24 08:39 Dose: 20 meq Prednisone (Prednisone 20 Mg Tablet) 60 mg PO DAILYWM [facility] Last Admin: 08/07/24 08:39 Dose: 60 mg Senna/Docusate Sodium (Sennosides/Docusate Tablet) 1 tab PO DAILY PRN Sodium Chloride (Sodium Chloride 0.9 % (Flush) 10 Ml Syringe) 5 ml IVF .FLUSH PRN Last Admin: 08/07/24 03:10 Dose: 5 ml Sodium Chloride (Sodium Chloride 0.9 % (Flush) 10 Ml Syringe) 5 ml IVF BID [facility] Last Admin: 08/07/24 08:44 Dose: 5 ml Sodium Chloride (0.9 % Sodium Chloride 250 Ml) 250 ml IV Q24H [facility] Transfer Discharge Sum: Hosp Hospital Course Hospital course: Paloma Garcia is a 49 year old female who was admitted to the hospital on 08/05/24 for acute on chronic hypoxic hypercarbic respiratory failure in the setting of known severe RODRICK, restrictive lung disease, obesity hypoventilation syndrome. Hospitalized here for a similar picture with RSV from 07/23-07/27/24. Placed on BIPAP in our CCU upon arrival to the floor. Data from stay: - admission ABG: CO2 of 87, pH of 7.31. - CTA in ER noted mild to moderate patchy bilateral GGOs concerning for atypical infection - negative RSV/COVID/Influenza - negative Strep Pneumo and Legionella antigens - on Zosyn and Doxycycline, received 1 dose of Vancomycin on admission (MRSA swab negative 08/05/24) - continued home Furosemide dosing (20mg po BID); also treated with nebs, 60mg Prednisone daily - goals of care discussion with patient and family 08/06: she remains full code, would still want trial of intubation after risk/benefit discussion Clinical course: - had improved clinically with resolution of acidosis on 08/06, was able to be off of BIPAP during the day, tolerated po intake - 08/07/24: CO2 87 on VBG with pH of 7.29 (after wearing BIPAP 15 all night), more hypoxia with saturations as low as 64% when removing BIPAP. Given IV Lasix, called [facility] ICU to discuss transfer Patient accepted by Dr. Reeves of [facility] ICU on 08/07/24, patient's father Issac updated by phone [phone], understands patient's tenuous status. Time Spent with Patient Time attestation: Total time spent providing and/or coordinating transfer services: 75 minutes in total, >50% in critical care time, collaboration with RT, discussions with transfer/ICU team Total time spent: Greater than 30 minutes Exam Narrative: Exam Narrative: GEN: Sitting up in bed and wearing BiPAP, + anxious CV: Sinus tachycardia without concerning murmurs on limited exam R: Exam limited by body habitus and BiPAP noise; no obvious wheezing with decreased bibasilar breath sounds Skin: Intertrigo Neuro: Nonfocal Psych: Appropriate Const: Vital Signs, click to edit/add: Vital Signs - 24 hr 08/06/24 10:13 08/06/24 10:36 08/06/24 12:32 Temperature 97.2 F L 97.3 F L Pulse Rate Pulse Rate [Right Pulse Oximeter] 110 H 107 H Respiratory Rate 18 20 Blood Pressure [Ri ght Arm] 121/81 127/87 Pulse Oximetry 92 91 Oxygen Delivery Me thod Nasal Cannula Nasal Cannula Nasal Cannula Oxygen Flow Rate 4 4 4 08/06/24 12:58 08/06/24 14:25 08/06/24 17:15 Temperature 97.8 F 97.5 F L Pulse Rate 106 H Pulse Rate [Right Pulse Oximeter] 105 H 105 H Respiratory Rate 18 20 Blood Pressure [Ri ght Arm] 128/82 131/87 Pulse Oximetry 93 92 Oxygen Delivery Me thod Nasal Cannula Nasal Cannula Oxygen Flow Rate 4 4 08/06/24 17:21 08/06/24 19:00 08/06/24 19:04 Temperature Pulse Rate 100 104 H Pulse Rate [Right Pulse Oximeter] 104 H Respiratory Rate 20 Blood Pressure [Ri ght Arm] Pulse Oximetry Oxygen Delivery Me thod Oxygen Flow Rate 08/06/24 19:46 08/06/24 22:07 08/06/24 22:54 Temperature 96.3 F L 97.2 F L Pulse Rate 97 Pulse Rate [Right Pulse Oximeter] 104 H 102 H Respiratory Rate 20 16 Blood Pressure [Ri ght Arm] 133/79 140/83 H Pulse Oximetry 93 89 Oxygen Delivery Me thod Nasal Cannula Nasal Cannula Oxygen Flow Rate 4 4 08/06/24 23:00 08/06/24 23:56 08/07/24 02:00 Temperature 97.2 F L 97.4 F L Pulse Rate Pulse Rate [Right Pulse Oximeter] 97 98 90 Respiratory Rate 16 18 20 Blood Pressure [Ri ght Arm] 131/81 139/95 H Pulse Oximetry 92 92 Oxygen Delivery Me thod BiPAP BiPAP Oxygen Flow Rate 08/07/24 02:52 08/07/24 03:15 08/07/24 04:00 Temperature 97.3 F L Pulse Rate 97 Pulse Rate [Right Pulse Oximeter] 90 102 H Respiratory Rate 20 16 Blood Pressure [Ri ght Arm] 137/86 Pulse Oximetry 92 Oxygen Delivery Me thod BiPAP Oxygen Flow Rate 08/07/24 05:56 08/07/24 07:00 08/07/24 07:00 Temperature 97.4 F L Pulse Rate 107 H Pulse Rate [Right Pulse Oximeter] 107 H 107 H Respiratory Rate 16 18 Blood Pressure [Ri ght Arm] 128/84 Pulse Oximetry 88 Oxygen Delivery Me thod BiPAP Oxygen Flow Rate 08/07/24 08:00 Temperature 97.4 F L Pulse Rate Pulse Rate [Right Pulse Oximeter] 107 H Respiratory Rate 18 Blood Pressure [Ri ght Arm] 130/84 Pulse Oximetry 91 Oxygen Delivery Me thod BiPAP Oxygen Flow Rate 4 Transfer Discharge Sum: Data Data Completed and Pending Completed studies during hospitalization: Procedures Assistance with Respiratory Ventilation, Less than 24 Consecutive Hours, Continuous Positive Airway Pressure (07/23/24) Introduction of Other Gas into Respiratory Tract, Via Natural or Artificial Opening (07/23/24) Transfer Discharge Sum: A/P Plan Functional capacity at transfer: bed bound Discharge Plan Discharge Disposition: [facility] Date of Admission: 08/05/24 21:31 Attending Provider on Discharge: Eleanor Presley Primary Care Provider: Geronimo Lamb Condition: Critical Discharge Orders: Transfer of Care to Other Hospital (ORDER); Ordered 08/07/24 Ordered By: Eleanor Presley Oxygen: Yes Oxygen Flow Rate: BIPAP Services not available here: ICU, Pulmonology
[2024-08-07] MEDS: FUROSEMIDE 10 MG/ML inj 40 MG IVP (09:58)
--- NOTE | 2024-08-07 10:58 | RESP.RT ---
Pt more acidotic this AM. Wore BIPAP all night. Concerned that this modality is not providing the support she needs. Will speak to hospitalist.
--- NOTE | 2024-08-07 11:32 | PC.NURSE ---
Transfer to Acute Care Facility: Pt on BiPAP. VSS, afebrile this shift. Tele in place with Sinus Tach. Purewick for urinary incontinence while on Bipap, 1-2 assist to BSC. IVs to bilateral arms patent and SL. Pt had 3 episodes of what she reports as pseudoseizures this morning. Discharged today at 1122 via nonemergent transport to [facility] for higher level of care. Nurse to Nurse given to Gita Méndez. Discharge paperwork signed.
== END 2024-08-07 11:22 | disposition short-term general hospital (02) | DRG 193 ==
LOC: ED 20:36 → MEDSURG 21:10
PROVIDERS: Family Medicine; Admitting Provider Physician Assistant; Emergency Provider Student in an Organized Health Care Education/Training Program; PCP Family Medicine; Visit Provider Family Medicine
DX: J18.9 Pneumonia, unspecified organism (principal); I50.33 Acute on chronic diastolic (congestive) heart failure; J96.21 Acute and chronic respiratory failure with hypoxia; J96.22 Acute and chronic respiratory failure with hypercapnia; Z68.43 Body mass index [BMI] 50.0-59.9, adult; E66.2 Morbid (severe) obesity with alveolar hypoventilation; G91.9 Hydrocephalus, unspecified; Z91.199 Patient's noncompliance with other medical treatment and regimen due to unspecified reason; Z99.81 Dependence on supplemental oxygen; J45.50 Severe persistent asthma, uncomplicated; R73.9 Hyperglycemia, unspecified; F41.9 Anxiety disorder, unspecified; F32.A Depression, unspecified; J38.3 Other diseases of vocal cords; F90.9 Attention-deficit hyperactivity disorder, unspecified type; R56.9 Unspecified convulsions; E78.5 Hyperlipidemia, unspecified; E03.9 Hypothyroidism, unspecified
CPT/HCPCS: 36415; 36600; 71275; 80048; 80053; 82565; 82803; 82962; 83605; 83735; 83880; 84145; 84443; 84484; 85025; 85027; 86140; 87040; 87070; 87081; 87449; 87631; 87899; 93005; 93971; 94640; 94660; 97161; 97166; 97535; 99285; A9270; J0692; J1650; J1940; J2405; J2543; J2919; J3372; J3475; J7030; J7512; Q9967

== ENCOUNTER 2024-08-07 11:00 | Outpatient (CLI) | payer OTHER, SELFPAY | END 2024-08-07 11:01 | disposition home or self-care (01) | LOC: AMB 08-12 13:42 | PROVIDERS: PCP Family Medicine; Visit Provider Emergency Medicine | DX: J18.9 Pneumonia, unspecified organism (principal) | CPT/HCPCS: A0425; A0434 ==

== ENCOUNTER 2024-10-05 17:40 | Outpatient (CLI) | payer OTHER, SELFPAY | END 2024-10-05 17:41 | disposition home or self-care (01) | LOC: AMB 10-07 08:35 | PROVIDERS: PCP Family Medicine; Visit Provider Emergency Medicine | DX: R06.09 Other forms of dyspnea (principal); R53.1 Weakness | CPT/HCPCS: A0425; A0427 ==

== ENCOUNTER 2024-10-05 18:06 | Inpatient (IN) | payer OTHER, SELFPAY ==
[2024-10-05] VITALS (7 sets, daily range): BP systolic 122; BP diastolic 68; PULSE 83–107; RESP 9–18; TEMP 36.7; O2SAT 88–96; BMI 53.7
--- OUTSIDE RECORDS SUMMARY | 2024-10-05 18:08 | XMS_ITS | Clinical Summary ---
Author Organization [facility] Address [address] , [address] [place] [address] Phone Care Team Providers Care Automatic Trimming Sewer Name Role Phone Son Jara MD Conditions or Problems Problem Name Problem Code Onset Date Status Entry Date Provider Comment Standard Description Annotate Involuntary movements 811627845 (SNOMED CT) Active Son Jara MD Abnormal involuntary movement Tremor 59004312 (SNOMED CT) Active Son Jara MD Tremor Medications Medication Instructions Start Date Stop Date Generic Name ND Provider SOLIFENACIN SUCCINATE 10 MG TABS Take 1 Tablet (10 mg) by mouth once daily. solifenacin (VESICARE) 10 mg tablet [id number] Son Jara MD PROCHLORPERAZINE MALEATE 5 MG TABS Take 1 Tablet (5 mg) by mouth every 8 hours if needed for Nausea/Vomitin g. prochlorperazine (COMPAZINE) 5 mg tablet [id number] Son Jara MD OMEPRAZOLE 20 MG CPDR Take 2 Capsules (40 mg) by mouth once daily before a meal. omeprazole (PriLOSEC) 20 mg Delayed-Release capsule [id number] Son Jara MD MONTELUKAST SODIUM 10 MG TABS Take 1 Tablet (10 mg) by mouth at bedtime. montelukast (SINGULAIR) 10 mg tablet [id number] Son Jara MD mirabegron EXTENDED-release (MYRBETRIQ) 50 mg tablet Take 1 Tablet (50 mg) by mouth once daily. mirabegron EXTENDED-release (MYRBETRIQ) 50 mg tablet Son Jara MD MECLIZINE HCL 25 MG TABS Take 0.5 Tablets (12.5 mg) by mouth 3 times daily if needed for Nausea/Vomitin g. meclizine (ANTIVERT) 25 mg tablet [id number] Son Jara MD LEVOTHYROXINE SODIUM 175 MCG TABS Take 1 Tablet (175 mcg) by mouth before breakfast. levothyroxine (SYNTHROID) 175 mcg tablet [id number] Son Jara MD FEXOFENADINE HCL 180 MG TABS Take 1 tablet by mouth once daily with a meal. fexofenadine (ROJAS) 180 mg tablet [id number] Son Jara MD DIPHENHYDRAMINE HCL 25 MG CAPS Take 1 capsule by mouth each time if needed. diphenhydrAMINE (BENADRYL) 25 mg capsule [id number] Son Jara MD VITAMIN D 50 MCG (2000 UT) TABS Take 2,000 units by mouth. cholecalciferol, Vitamin D3, 2,000 unit tablet [id number] Son Jara MD BUPROPION HCL ER (XL) 150 MG [id number] null buPROPion (WELLBUTRIN XL) 150 mg Extended-Release tablet [id number] Son Jara MD IPRATROPIUM-ALBUTE ROL 0.5-2.5 (3) MG/3ML SOLN Inhale 3 mL via a nebulizer 2 times daily if needed for Shortness of Breath 1st choice or Wheezing 1st choice. albuterol-ipratrop ium (DUONEB) (2.5-0.5 mg) in 3 mL NEBULIZA [id number] Son Jara MD ALBUTEROL SULFATE HFA 108 (90 Base) MCG/ACT AERS Inhale 1-2 Puffs by mouth every 4 hours if needed for Shortness of Breath 1st choice. albuterol HFA (ProAir HFA) 90 mcg/actuation inhaler [id number] Son Jara MD ALBUTEROL SULFATE (2.5 MG/3ML) 0.083% NEBU Inhale 3 mL via a nebulizer every 6 hours if needed for Shortness Of Breath or Wheezing. albuterol (PROVENTIL) 0.083 % neb solution [id number] Son Jara MD SYMBICORT 160-4.5 MCG/ACT AERO null Symbicort 160-4. 5 mcg/actuation (160-4.5 mcg each actuation) [id number] Son Jara MD PAROXETINE HCL 40 MG TABS null PARoxetine (PAXI L) 40 mg tablet [id number] Son Jara MD Medications Administered No information [...] Date ORDERS EEG Sleep Deprived (41min) 2 CPT-39354 EEG EXTENDED 41-60mins (END) [id number] Documentation of current medicatio ns ORDERS Patient Instructions Vital Signs No information available. Immunizations No information available. Advance Directives No information available.
--- OUTSIDE RECORDS SUMMARY | 2024-10-05 18:08 | XMS_ITS | Clinical Summary ---
Author Organization [facility] Address [facility] [place] [address] Care Team Providers Care Global Program Manager Name Role Phone Paolo Limon MD Unavailable Talon Durham MD Unavailable [phone] Laura Gardner PsyD, LP Unavailable [phone] Geronimo Lamb MD Primary Care Provider Luis Santos DO Unavailable [phone] Allergies Active Allergy Reactions Criticality Noted Date [...] inhalerIndication s:Severe persistent asthma, unspecified whether complicated (HC) Inhale 2 Puffs by mouth two times daily. 10.2 g 11 024 Active PARoxetine (PAXIL) 40 mg tabletIndications :Anxiety and depression Take 1 Tablet (40 mg) by mouth once daily in the morning. 90 Tablet 3 024 Active omeprazole (PRILOSEC) 20 mg Delayed-Release capsuleIndication s:Chronic GERD Take 2 Capsules (40 mg) by mouth once daily before a meal. 180 Capsule 2 024 Active albuterol HFA (PRO-AIR; VENTOLIN; PROVENTIL) 90 mcg/actuation inhalerIndication s:Moderate persistent asthma, uncomplicated (HC) INHALE 1-2 PUFFS EVERY 4 HOURS NEEDED FOR SHORTNESS OF BREATH 1 Each 024 Active levETIRAcetam (KEPPRA) 750 mg tabletIndications :Seizure (HC) Take 1 Tablet (750 mg) by mouth two times daily. 180 Tablet 1 024 Active levothyroxine (SYNTHROID) 100 mcg tabletIndications :Hypothyroidism (acquired) TAKE 1 TABLET BY MOUTH DAILY BEFORE BREAKFAST 90 Tablet 1 024 Active mirtazapine (REMERON) 15 mg tablet Take 15 mg by mouth once daily. Active polyethylene glycoL (MIRALAX) 17 gram/scoop powderIndications :Chronic constipation Mix 1 scoop (17 g) in liquid then take by mouth once daily if needed for Constipation. 510 g 3 024 Active montelukast (SINGULAIR) 10 mg tabletIndications :Allergy, sequela TAKE 1 TABLET BY MOUTH EVERY NIGHT AT BEDTIME 30 Tablet 025 Active albuterol-ipratro pium (DUONEB) (2.5-0.5 mg) in 3 mL NEBULIZATION solutionIndicatio ns:Moderate persistent asthma, uncomplicated (HC) Inhale 3 mL via a nebulizer three times daily. 1080 mL 3 025 Active famotidine (Pepcid) 20 mg tabletIndications :LPRD (laryngopharyngea l reflux disease) Take 1 Tablet (20 mg) by mouth two times daily. 90 Tablet 5 025 Active fluticasone (50 mcg per actuation) nasal solution (FLONASE)Indicati ons:PND (post-nasal drip) Inhale 2 Sprays into affected nostril(s) once daily. 16 g 5 Active potassium chloride (Klor-Con 10) 10 mEq extended-release tabletIndications :Heart failure with preserved ejection fraction, unspecified HF chronicity (HC),SOB (shortness of breath) Take 20 mEq by mouth once daily with a meal. Active BIPAPIndications: Chronic respiratory failure with hypoxia and hypercapnia (HC),Class 3 obesity with alveolar hypoventilation, serious comorbidity, and body mass index (BMI) of 50.0 to 59.9 in adult (HC),Obstructive sleep apnea BIPAP (E0470) machine for home use at pressure: Auto BiPAP at minimum EPAP 6, maximum IPAP 20, pressure support 5, Choice of mask (A7030 or A7034) w/full face cushion (A7031) x1/mo, nasal cushion (A7032) x2/mo, or nasal pillows (A7033) x 2/mo; Length of Need: 99 months; Frequency of use: Daily Active acetaminophen 325 mg tabletIndications :Bilateral lower extremity edema Take 2 Tablets (650 mg) by mouth every 4 hours if needed for Pain or Temp > (Specify) (Temp >100.4 F (38 C)). Max acetaminophen dose: 4000mg in 24 hrs. Active hydrOXYzine pamoate 25 mg capsuleIndication s:Anxiety and depression,Psycho genic nonepileptic seizure Take 1 Capsule (25 mg) by mouth every 6 hours if needed for Anxiety. Active ondansetron 4 mg disintegrating tabletIndications :Nausea Place 1 Tablet (4 mg) on the tongue every 8 hours if needed for Nausea/Vomiting . 5 Tablet Active guaiFENesin (Mucus Relief ER) 600 mg Extended-Release tabletIndications :Chronic cough Take 1 Tablet (600 mg) by mouth two times daily. 8 am and 8 evening. 60 Tablet 11 Active mirabegron EXTENDED-release (Myrbetriq) 50 mg tabletIndications :Urinary incontinence, unspecified type Take 1 Tablet (50 mg) by mouth once daily. 90 Tablet 3 025 Active torsemide 10 mg tabletIndications :Heart failure with preserved ejection fraction, unspecified HF chronicity (HC) Take 1 Tablet (10 mg) by mouth once daily. 90 Tablet 3 025 Active mirabegron EXTENDED-release (Myrbetriq) 50 mg tabletIndications :Urge urinary incontinence Take 1 Tablet (50 mg) by mouth once daily. 90 Tablet 3 024 2024 Discontinued(D uplicate therapy (E-cancel not sent)) guaiFENesin (Mucus Relief ER) 600 mg Extended-Release tabletIndications :Chronic cough TAKE 1 TABLET BY MOUTH TWICE DAILY NEEDED 20 Tablet 025 2024 Discontinued torsemide 20 mg tabletIndications :Heart failure with preserved ejection fraction, unspecified HF chronicity (HC) Take 1 Tablet (20 mg) by mouth once daily. 025 2024 Discontinued(R eorder (E-cancel not sent)) guaiFENesin (Mucus Relief ER) 600 mg Extended-Release tabletIndications :Chronic cough TAKE 1 TABLET BY MOUTH TWICE DAILY NEEDED 60 Tablet 1 025 2024 Discontinued(R eorder (E-cancel not sent)) Active Problems Problem Noted Date Diagnosed Date Psychogenic nonepileptic seizure 08/10/2024 Overview (08/10/2024): -has seen Neurology -apparently more common when stressed -continue home Keppra dosing Chronic respiratory failure with hypoxia and hyp [...] 1 06/23/2020 Bilateral lower extremity edema 04/23/2021 Benign essential hypertension 06/16/2016 Overview (08/10/2024): Hypertension (HTN) Essential Benign Hyperlipidemia 06/03/2014 Secondary amenorrhea 01/03/2014 Hydrocephalus, congenital [...] Noted Date Diagnosed Date Resolved Date Acute respiratory failure wi th hypoxia and hypercapnia 08/08/2024 09/30/2024 Chronic respiratory failure with hypoxia 07/05/2024 07/29/2024 [...] 06/03/2024 Overview (04/23/2021): Eval by [facility] neurology 2018. Thought to be functional. Referred to psychiatry. Encounters Date Type Department Care Team Description 10/01/2024 Refill [facility] [address] [place] [address] Geronimo Lamb MD Refill Request (Torsemide 10mg tablet) 09/30/2024 2:45 PM CDT Orders Only [address] [address] Lab, [place] 09/30/2024 10:35 AM CDT Office Visit [facility] [address] [place] [address] Geronimo Lamb MD Hospital F/U ([facility], 08/07/2024 - 08/24/2024, [facility], 08/24/2024 - 09/06/2024, respiratory failure) 09/30/[address] [address] Geronimo Lamb MD Medication Management (mirabegron EXTENDED-release (Myrbetriq) 50 mg tablet ) 09/30/[address] [address] Geronimo Lamb MD Medication List Update 09/30/2024 Travel 09/26/[address] [address] Geronimo Lamb MD Refill Request (Mucus Relief Er) 08/28/2024 10:49 PM CDT - 08/29/2024 12:47 AM CDT Emergency [facility] [address] [place] [address] Ryan Hyde MD SOB (shortness of breath) (Primary Dx) Discharge Disposition: [facility] Facility 08/28/2024 Travel 08/07/2024 12:27 PM CDT - 08/24/2024 6:35 PM CDT Hospital Encounter [facility] [address] [place] [address] Melissa Reeves MD Wolfe, Adam Charles, MD Ambur, Sumanth, MD Sang, MD Milly Butts Hayden Thomas, MD Novak, MD Poncho Ocasiokbarrie, MD Adonis Sheffield, Geronimo Bradshaw MD Chronic respiratory failure with hypoxia and hypercapnia (HC) (Primary Dx); Class 3 obesity with alveolar hypoventilation, serious comorbidity, and body mass index (BMI) of 50.0 to 59.9 in adult (HC); RODRICK 03/29/2009 AHI-37 in REM, 5 overall; Anxiety and depression; Psychogenic nonepileptic seizure; Nausea; Bilateral lower extremity edema; Heart failure with preserved ejection fraction, unspecified HF chronicity (HC) Discharge Disposition: Senior Living Facility 08/05/2024 Orders Only [facility] Scanner 1 scan: (1-Ord) [place], [place] ANGIO CHEST PE PROTOCOL, 08/05/2024 08/05/2024 Orders Only [facility] Scanner 1 scan: (1-Ord) [facility], US VENOUS LE LT, 08/05/2024 08/05/2024 Orders Only [facility] [address] [facility] [place] [address] Geronimo Lamb MD <No scans attached> 08/04/2024 2:30 PM CDT Telemedicine [facility] [address] [facility] [place] [address] Geronimo Lamb MD Telehealth (No vitals taken); Hospital F/U ([facility], RSV) 08/04/2024 Travel 08/02/2024 Telephone [facility] [address] [facility] [place] [address] Geronimo Lamb MD Follow Up 07/30/2024 Orders Only [facility] Scanner 1 scan: (1-Ord) [facility], CHEST W/O CONT, 07/30/2024 07/30/2024 Orders Only [facility] Scanner 1 scan: (1-Ord) [facility], CHEST 1V PORTABLE , 07/30/2024 07/29/2024 10:10 AM STOCK AND STATION AGENT Telemedicine [facility] [address] [facility] [place] [address] Geronimo Lamb MD Telehealth (No vitals taken); Follow Up 07/29/2024 Travel 07/29/2024 Telephone [facility] [address] [place] [address] Geronimo Lamb MD APPT (SWITCH FROM IN PERSON TO VIRTUAL ) 07/27/2024 Orders Only [facility] Scanner 1 scan: (1-Ord) [facility], CHEST 1V, 07/27/2024 07/24/2024 2:15 PM STOCK AND STATION AGENT Ancillary Procedure [facility] [address] [place] [address] 07/24/2024 Orders Only [facility] Scanner 1 scan: (1-Ord) [facility], CT ANGIO CHEST PE PROTOCOL, 07/24/2024 07/23/2024 Orders Only [facility] Scanner 1 scan: (1-Ord) [facility], XR CHEST 1V PORTABLE, 07/23/2024 07/21/2024 10:30 AM STOCK AND STATION AGENT Office Visit [facility] [address] [place] [address] Geronimo Lamb MD Follow Up 07/20/2024 11:00 AM STOCK AND STATION AGENT Office Visit [facility] [address] [place] [address] Heather Cruz PA Consult (Vocal cord dysfunction) 07/20/2024 Travel 07/14/2024 Refill [facility] [address] [place] [address] Geronimo Lamb MD Refill Request (Mucus Relief Er) 07/11/2024 Orders Only [facility] Scanner 1 scan: (1-Ord) [facility], MULTIPLE LAB RESULTS, 07/11/2024 07/11/2024 Orders Only [facility] Scanner 1 scan: (1-Ord) [facility], XR CHEST 2V, 07/11/2024 from Last 3 Months Immunizations Immunization Administration Dates Next Due COVID-19 VACCINE SPIKEVAX (M ODERNA 50MCG/0.5ML) 12YO+ PFS 03/19/2023 COVID-19 vaccine (Pfizer-Bio NTech 30mcg/0.3mL) 12YO+ BIVALENT PF, MDV 05/01/2022 COVID-19 vaccine (LivefyreBio NTech 30mcg/0.3mL) 12YO+ VAL-SUCROSE PF, MDV 08/29/2021 [...] or yelled at (see row info)? No 08/28/2024 Interpersonal Safety Abuse 12 - 18 Not on file 08/28/2024 Interpersonal Safety Ambulatory Vulnerability No t on file 08/28/2024 Utilities Answer Date Recorded Do you have trouble paying f or utilities (for example, heat, electricity, water, phone)? 1 05/05/2024 Comments No Sex and Gender Information Value Date Recorded Sex Assigned at Not on file Legal Sex Female 6:31 AM STOCK AND STATION AGENT Gender Identity Not on file Sexual Orientation Not on file Obstetrics History Last Filed Vital Signs Vital Sign Reading Time Taken Comments Blood Pressure 145/88 09/30/2024 10:31 AM CDT Pulse 111 09/30/2024 10:31 AM CDT Temperature 36.6 C (97.9 F) 08/28/2024 10:51 PM CDT Respiratory Rate 20 08/28/2024 10:5 1 PM CDT Oxygen Saturation 91% 09/30/2024 10: 31 AM CDT 4L via nasal cannula Inhaled Oxygen Concentration - - Weight 112 kg (247 lb) 09/30/2024 10:31 AM CDT Height 139.7 cm (4' 7) 08/28/2024 10:5 1 PM CDT Body Mass Index 57.41 08/28/2024 10:51 PM CDT Plan of Treatment Upcoming Encounters Date Type Department Care Team (Late st Contact Info) Description 10/27/2024 1:30 PM CDT Office Visit [facility] [address] [place] [address] Paolo Limon MD [address] [place] [address] 11/01/2024 2:55 PM CDT Office Visit [facility] [address] [place] [address] Geronimo Lamb MD [address] [place] [address] Health Maintenance Due Date Last Done Comments [...] Procedure Name Priority Date/Time Associated Diagnosis Comments URINALYSIS MACROSCOPIC - [facility] ONLY POC DIP (QUEST) Routine 09/30/2024 1:51 PM CDT Dysuria URINALYSIS MICROSCOPIC Routine 12:10 PM CDT Dysuria URINE CULTURE Routine 09/30/2024 12:10 PM CDT Dysuria INFLUENZA A/B PCR STAT 08/28/2024 11: 48 PM CDT COVID-19 MOLECULAR Today 08/28/2024 11 :48 PM CDT EKG 12 LEAD STAT 08/28/2024 11:13 PM CDT CBC WITH AUTO DIFFERENTIAL STAT 08/28/2024 11:07 PM CDT BLOOD GAS,VENOUS STAT 08/28/2024 11:0 7 PM CDT BASIC METABOLIC PANEL STAT 08/28/2024 11:07 PM CDT CBC WITH AUTO DIFFERENTIAL STAT 08/28/2024 11:07 PM CDT XR CHEST 1 VIEW PORTABLE STAT 08/28/2024 11:03 PM CDT CREATININE RICHARD 08/24/2024 11:42 AM CDT POTASSIUM Early AM 08/24/2024 11:42 AM CDT PRO-BNP RICHARD 08/23/2024 6:42 AM CDT HEMOGLOBIN Early AM 08/23/2024 6:42 AM CDT CREATININE Early AM 08/23/2024 6:42 AM CDT POTASSIUM Early AM 08/23/2024 6:42 AM CDT SODIUM Early AM 08/23/2024 6:42 AM CDT POTASSIUM STAT 08/22/2024 4:04 PM CDT POTASSIUM Timed 08/21/2024 10:21 PM CDT CREATININE Today 08/21/2024 10:41 AM CDT POTASSIUM Today 08/21/2024 10:41 AM CDT SODIUM Today 08/21/2024 10:41 AM CDT CREATININE Early AM 08/20/2024 6:34 AM CDT POTASSIUM Early AM 08/20/2024 6:34 AM CDT SODIUM Early AM 08/20/2024 6:34 AM CDT MAGNESIUM Early AM 08/20/2024 6:34 AM CDT CREATININE Early AM 08/19/2024 7:04 AM CDT POTASSIUM Early AM 08/19/2024 7:04 AM CDT SODIUM Early AM 08/19/2024 7:04 AM CDT MAGNESIUM Early AM 08/19/2024 7:04 AM CDT XR CHEST 1 VIEW PORTABLE STAT 08/19/2024 3:50 AM CDT EKG 12 LEAD STAT 08/19/2024 3:24 AM CDT ELECTROLYTE PANEL Early AM 08/18/2024 7:2 0 AM CDT MAGNESIUM Early AM 08/18/2024 7:20 AM CDT GLUCOSE METER Timed 08/17/2024 7:31 AM CDT ELECTROLYTE PANEL Early AM 08/17/2024 6:5 9 AM CDT MAGNESIUM Early AM 08/17/2024 6:59 AM CDT GLUCOSE METER Timed 08/16/2024 11:52 AM CDT MAGNESIUM RICHARD 08/16/2024 9:33 AM CDT GLUCOSE METER Timed 08/16/2024 8:24 AM CDT POTASSIUM Early AM 08/16/2024 6:51 AM CDT POTASSIUM Early AM 08/15/2024 6:56 AM CDT GLUCOSE METER Timed 08/15/2024 6:12 AM CDT GLUCOSE METER Timed 08/14/2024 9:49 PM CDT GLUCOSE METER Timed 08/14/2024 6:14 PM CDT GLUCOSE METER Timed 08/14/2024 11:07 AM CDT GLUCOSE METER Timed 08/14/2024 7:57 AM CDT BASIC METABOLIC PANEL Early AM 08/14/2024 7:12 AM CDT MAGNESIUM Early AM 08/14/2024 7:12 AM CDT GLUCOSE METER Timed 08/13/2024 10:15 PM CDT GLUCOSE METER Timed 08/13/2024 3:53 PM CDT GLUCOSE METER Timed 08/13/2024 11:34 AM CDT POTASSIUM Early AM 08/13/2024 10:01 AM CDT MAGNESIUM Early AM 08/13/2024 10:01 AM CDT GLUCOSE METER Timed 08/13/2024 8:03 AM CDT GLUCOSE METER Timed 08/12/2024 9:59 PM CDT SCAN-CARDIAC STRIP 08/12/2024 7: 41 PM CDT GLUCOSE METER Timed 08/12/2024 3:43 PM CDT POTASSIUM Timed 08/12/2024 1:44 PM CDT GLUCOSE METER Timed 08/12/2024 12:11 PM CDT GLUCOSE METER Timed 08/12/2024 8:03 AM CDT SCAN-CARDIAC STRIP 08/12/2024 7: 26 AM CDT BLOOD GAS,VENOUS Early AM 08/12/2024 6:07 AM CDT BASIC METABOLIC PANEL Early AM 08/12/2024 6:07 AM CDT MAGNESIUM Early AM 08/12/2024 6:07 AM CDT GLUCOSE METER Timed 08/11/2024 10:01 PM CDT SCAN-CARDIAC STRIP 08/11/2024 7: 02 PM CDT GLUCOSE METER Timed 08/11/2024 4:41 PM CDT GLUCOSE METER Timed 08/11/2024 12:56 PM CDT BASIC METABOLIC PANEL Timed 08/11/2024 11:23 AM CDT GLUCOSE METER Timed 08/11/2024 8:02 AM CDT POTASSIUM Early AM 08/11/2024 6:18 AM CDT MAGNESIUM Early AM 08/11/2024 6:18 AM CDT XR CHEST 1 VIEW PORTABLE Routine 08/11/2024 3:44 AM CDT SCAN-CARDIAC STRIP 08/11/2024 12 :20 AM CDT GLUCOSE METER Timed 08/10/2024 9:53 PM CDT GLUCOSE METER Timed 08/10/2024 6:19 PM CDT GLUCOSE METER Timed 08/10/2024 1:09 PM CDT BLOOD GAS,VENOUS Timed 08/10/2024 12:5 7 PM CDT POTASSIUM Timed 08/10/2024 12:57 PM CDT SCAN-CARDIAC STRIP 08/10/2024 7: 04 AM CDT GLUCOSE METER Timed 08/10/2024 5:53 AM CDT BLOOD GAS,VENOUS Early AM 08/10/2024 5:53 AM CDT POTASSIUM Early AM 08/10/2024 5:53 AM CDT MAGNESIUM Early AM 08/10/2024 5:53 AM CDT GLUCOSE METER Timed 08/10/2024 2:11 AM CDT GLUCOSE METER Timed 08/09/2024 10:06 PM CDT SCAN-CARDIAC STRIP 08/09/2024 8: 07 PM CDT GLUCOSE METER Timed 08/09/2024 8:06 PM CDT GLUCOSE METER Timed 08/09/2024 5:07 PM CDT BLOOD GAS,VENOUS Timed 08/09/2024 2:59 PM CDT SCAN-CARDIAC STRIP 08/09/2024 2: 57 PM CDT POTASSIUM Timed 08/09/2024 2:57 PM CDT GLUCOSE METER Timed 08/09/2024 1:36 PM CDT SCAN CORRESP-IMAGING 08/09/2024 12:58 PM CDT SCAN CORRESP-DIAGNOSTICS 08/09/2024 12:58 PM CDT SCAN CORRESP-LABORATORY RESULTS 08/09/2024 12:56 PM CDT GLUCOSE METER Timed 08/09/2024 7:43 AM CDT GLUCOSE METER Timed 08/09/2024 5:29 AM CDT BLOOD GAS,VENOUS Early AM 08/09/2024 5:01 AM CDT BASIC METABOLIC PANEL Early AM 08/09/2024 5:01 AM CDT CBC W PLT NO DIFF Early AM 08/09/2024 5:0 1 AM CDT MAGNESIUM Early AM 08/09/2024 5:01 AM CDT POTASSIUM Timed 08/09/2024 5:01 AM CDT GLUCOSE METER Timed 08/09/2024 1:26 AM CDT SCAN-CARDIAC STRIP 08/08/2024 11 :26 PM CDT GLUCOSE METER Timed 08/08/2024 9:24 PM CDT MAGNESIUM RICHARD 08/08/2024 7:50 PM CDT POTASSIUM RICHARD 08/08/2024 7:50 PM CDT GLUCOSE METER Timed 08/08/2024 4:18 PM CDT SODIUM Timed 08/08/2024 2:53 PM CDT GLUCOSE METER Timed 08/08/2024 12:06 PM CDT BLOOD GAS,VENOUS Today 08/08/2024 11:1 4 AM CDT SCAN-CARDIAC STRIP 08/08/2024 9: 35 AM CDT GLUCOSE METER Timed 08/08/2024 8:09 AM CDT ARTERIAL BLOOD GAS STAT 08/08/2024 4: 31 AM CDT MAGNESIUM Early AM 08/08/2024 3:19 AM CDT BLOOD GAS,VENOUS Early AM 08/08/2024 3:19 AM CDT CBC W PLT NO DIFF Early AM 08/08/2024 3:1 9 AM CDT BASIC METABOLIC PANEL Early AM 08/08/2024 3:19 AM CDT GLUCOSE METER Timed 08/08/2024 3:18 AM CDT GLUCOSE METER Timed 08/08/2024 1:51 AM CDT SCAN-CARDIAC STRIP 08/07/2024 11 :11 PM CDT SCAN-CARDIAC STRIP 08/07/2024 11 :11 PM CDT GLUCOSE METER Timed 08/07/2024 10:03 PM CDT GLUCOSE METER Timed 08/07/2024 4:50 PM CDT SCAN-CARDIAC STRIP 08/07/2024 2: 32 PM CDT EKG 12 LEAD STAT 08/07/2024 2:28 PM CDT UA W/ SEDIMENT EXAM REFLEXED PER CRITERIA Today 08/07/2024 1:25 PM CDT ARTERIAL BLOOD GAS STAT 08/07/2024 1: 23 PM CDT GLUCOSE METER Timed 08/07/2024 1:15 PM CDT MAGNESIUM RICHARD 08/07/2024 1:01 PM CDT RED CELL MORPHOLOGY STAT 08/07/2024 1 :01 PM CDT CBC WITH AUTO DIFFERENTIAL STAT 08/07/2024 1:01 PM CDT HEPATIC FUNCTION PANEL STAT 1:01 PM CDT CBC WITH AUTO DIFFERENTIAL STAT 08/07/2024 1:01 PM CDT BASIC METABOLIC PANEL STAT 08/07/2024 1:01 PM CDT XR CHEST 1 VIEW PORTABLE STAT 08/07/2024 12:56 PM CDT SCAN-CT INTERPRETATION 12:00 AM CDT SCAN-ULTRASOUND REPORT 12:00 AM CDT SCAN-CT INTERPRETATION 12:00 AM STOCK AND STATION AGENT SCAN-RADIOLOGY REPORT 07/30/2024 12:00 AM STOCK AND STATION AGENT SCAN-RADIOLOGY REPORT 07/27/2024 12:00 AM STOCK AND STATION AGENT ECHO TTE COMPLETE W CONTRAST Routine 07/24/2024 3:13 PM STOCK AND STATION AGENT Chest pain SCAN-CT INTERPRETATION 12:00 AM STOCK AND STATION AGENT SCAN-RADIOLOGY REPORT 07/23/2024 12:00 AM STOCK AND STATION AGENT SCAN-LABORATORY REPORT 12:00 AM STOCK AND STATION AGENT SCAN-RADIOLOGY REPORT 07/11/2024 12:00 AM STOCK AND STATION AGENT LIPID PANEL W REFLEX MEASURED LDL Routine 01/20/2024 4:00 PM CDT Hyperlipidemia, unspecified hyperlipidemia type ANTI HIV 1/2 Routine 05/01/2022 4:36 PM STOCK AND STATION AGENT Encounter for screening for HIV ANTI HCV Routine 12/05/2021 9:30 AM CDT Need for hepatitis C screening test SCAN-MAMMOGRAPHY REPORT 02/24/2019 12:00 AM CDT from Last 3 Months or Most Recently Relevant to Health Maintenance Results * POCT Urinalysis Dipstick Only [[id number]] (09/30/2024 1:51 PM CDT) PH 7.0 5.0 - 8.0 [facility] SPECIFIC GRAVITY 1.015 1.001 - 1.035 [facility] GLUCOSE NEGATIVE NEGATIVE [facility] BILIRUBIN NEGATIVE NEGATIVE [facility] KETONES NEGATIVE NEGATIVE [facility] OCCULT BLOOD NEGATIVE NEGATIVE [facility] PROTEIN NEGATIVE NEGATIVE [facility] NITRITE NEGATIVE NEGATIVE [facility] LEUKOCYTE ESTERASE NEGATIVE NEGATIVE [facility] Urine URINE SPECIMEN / Unknown 09/30/2024 1:51 PM CDT 09/30/2024 1:51 PM CDT us Geronimo Lamb MD URINE Final Result [facility] [address] [place] [address], [facility] [address] [place] [address] * URINALYSIS MICROSCOPIC [[id number]] - routine (09/30/2024 12:10 PM CDT) RBC 0-2 0-2, None Seen /HPF 09/30/2024 11:02 PM CDT [facility] WBC 0-2 0-2, 3-5, None Seen /HPF 09/30/2024 11:02 PM CDT [facility] BACTERIA None Seen None Seen, Rare, Few Bacteria/ HPF 09/30/2024 11:02 PM CDT [facility] EPITHELIAL CELLS None Seen None Seen, Few Epi/HPF 09/30/2024 11:02 PM CDT [facility] HYALINE CASTS 0-2 0-2, 3-5 /LPF 09/30/2024 11:02 PM CDT [facility] Urine URINE SPECIMEN / Unknown Non-Blood / Unknown 09/30/2024 12:10 PM CDT 09/30/2024 1:50 PM CDT us Geronimo Lamb MD URINE Final Result [facility] [address] [place] [address], * URINE CULTURE [[id number]] (09/30/2024 12:10 PM CDT) Pathologist [facility] CULTURE <10,000 CFU/mL multiple organisms 10/02/2024 3:34 PM CDT [facility] Urine URINE SPECIMEN / Unknown Non-Blood / Unknown 09/30/2024 12:10 PM CDT 09/30/2024 1:50 PM CDT us Geronimo Lamb MD MICROBIOLOGY Final Result Performing Organization Address City/[facility]/ZIP Co de Phone Number [facility] [address] [place] [address], * COVID-19 MOLECULAR (08/28/2024 11:48 PM CDT) Pathologist [facility] COVID 19 [facility] MOLECULAR Not detected Not detected 08/29/2024 12:19 AM CDT [facility] TESTING LABORATORY [facility] 08/29/2024 12:19 AM CDT [facility] Comment:Specimen submitted t o [facility] for testing. Other SPECIMEN FROM NASOPHARYNGEAL STRUCTURE / Unknown Non-Blood / Unknown 08/28/2024 11:48 PM CDT 08/28/2024 11:57 PM CDT us Ryan Hyde MD MICROBIOLOGY Final Result Performing Organization Address City/[facility]/ZIP Co de Phone Number [facility] [address] [place] [phone] * INFLUENZA A/B PCR (08/28/2024 11:48 PM CDT) Pathologist [facility] INFLUENZA A PCR NOT Detected 08/29/2024 12:19 AM CDT [facility] INFLUENZA B PCR NOT Detected 08/29/2024 12:19 AM CDT [facility] Other SPECIMEN FROM NASOPHARYNGEAL STRUCTURE / Unknown Non-Blood / Unknown 08/28/2024 11:48 PM CDT 08/28/2024 11:57 PM CDT us Ryan Hyde MD MICROBIOLOGY Final Result Performing Organization Address [facility] Co de Phone Number [facility] [address] [place] [address] * EKG 12 LEAD (08/28/2024 11:13 PM CDT) Only the most recent of3 resultswithin the time period is included. Pathologist [facility] Interpretation Normal sinus rhythm Low voltage QRS Borderline ECG When compared with ECG of 19-Aug-2024 03:24, No significant change was found BEYOND NOW Ventricular Rate 93 BPM BEYOND NOW Atrial Rate 93 BPM BEYOND NOW P-R Interval 138 ms BEYOND NOW QRS Duration 70 ms BEYOND NOW QT 374 ms BEYOND NOW QTc 465 ms BEYOND NOW P [place] 67 degrees BEYOND NOW R [place] -9 degrees BEYOND NOW T [place] 20 degrees BEYOND NOW 08/28/2024 11:1 3 PM CDT 08/29/2024 2:07 AM CDT us Ryan Hyde MD EKG ORD Final Result Performing Organization Address [facility] de Phone Number BEYOND NOW [place], [place] * (ABNORMAL) CBC WITH AUTO DIFFERENTIAL (08/28/2024 11:07 PM CDT) Only the most recent of2 resultswithin the time period is included. [facility] WHITE BLOOD COUNT 9.0 4.5 - 11.0 thou/cu mm 08/28/2024 11:14 PM CDT [facility] RED BLOOD COUNT 3.97(L) 4.00 - 5.20 mil/cu mm 08/28/2024 11:14 PM CDT [facility] HEMOGLOBIN 11.4(L) 12.0 - 16.0 g/dL 08/28/2024 11:14 PM CDT [facility] HEMATOCRIT 37.5 33.0 - 51.0 % 08/28/2024 11:14 PM CDT [facility] MCV 95 80 - 100 fL 08/28/2024 11:14 PM CDT [facility] MCH 28.7 26.0 - 34.0 pg 08/28/2024 11:14 PM [facility] MCHC 30.4(L) 32.0 - 36.0 g/dL 08/28/2024 11:14 PM [facility] RDW 14.6 11.5 - 15.5 % 08/28/2024 11:14 PM [facility] PLATELET COUNT 243 140 - 440 thou/cu mm 08/28/2024 11:14 PM [facility] MPV 9.2 6.5 - 11.0 fL 08/28/2024 11:14 PM [facility] % NEUT 74.2 % 08/28/2024 11:14 PM [facility] % LYMPH 17.8 % 08/28/2024 11:14 PM [facility] % MONO 5.1 % 08/28/2024 11:14 PM [facility] % EOS 2.3 % 08/28/2024 11:14 PM [facility] % BASO 0.6 % 08/28/2024 11:14 PM [facility] ABSOLUTE NEUTROPHILS 6.7 1.7 - 7.0 thou/cu mm 08/28/2024 11:14 PM [facility] ABSOLUTE LYMPHOCYTES 1.6 0.9 - 2.9 thou/cu mm 08/28/2024 11:14 PM [facility] ABSOLUTE MONOCYTES 0.5 <0.9 thou/cu mm 08/28/2024 11:14 PM [facility] ABSOLUTE EOSINOPHILS 0.2 <0.5 thou/cu mm 08/28/2024 11:14 PM [facility] ABSOLUTE BASOPHILS 0.1 <0.3 thou/cu mm 08/28/2024 11:14 PM [facility] Blood BLOOD SPECIMEN / Unknown Venipuncture / Unknown 08/28/2024 11:07 PM CDT 08/28/2024 11:10 PM T Ryan Hyde MD HEMATOLOGY Final Result Performing Organization Address [facility] Co de Phone Number [facility] [address] [place] [address] * (ABNORMAL) BLOOD GAS,VENOUS (08/28/2024 11:07 PM CDT) Only the most recent of8 resultswithin the time period is included. PH, VENOUS 7.42 7.32 - 7.43 08/28/2024 11:36 PM T [facility] PCO2, VENOUS 63(H) 41 - 51 mmHg 08/28/2024 11:36 PM [facility] PO2, VENOUS 67(H) 35 - 40 mmHg 08/28/2024 11:36 PM [facility] HCO3,VENOUS 41(H) 22 - 29 mmol/L 08/28/2024 11:36 PM T [facility] BASE EXCESS, VENOUS, POCT 13.5(H) -2.0 - 3.0 08/28/2024 11:36 PM [facility] O2 SATURATION, VENOUS 95(H) 70 - 75 % 08/28/2024 11:36 PM [facility] PATIENT TEMPERATURE 37.0 Degrees C 08/28/2024 11:36 PM [facility] Blood BLOOD SPECIMEN / Unknown Venipuncture / Unknown 08/28/2024 11:07 PM CDT 08/28/2024 11:10 PM CDT Ryan Hyde MD CHEMISTRY Final Result Performing Organization Address [facility]/ZIP Co de Phone Number [facility] [address] [place] [address] * (ABNORMAL) BASIC METABOLIC PANEL (08/28/2024 11:07 PM CDT) Only the most recent of7 resultswithin the time period is included. SODIUM 139 136 - 145 mmol/L 08/28/2024 11:29 PM T [facility] POTASSIUM 3.9 3.5 - 5.1 mmol/L 08/28/2024 11:29 PM [facility] CHLORIDE 95(L) 98 - 107 mmol/L 08/28/2024 11:29 PM [facility] CO2,TOTAL 34(H) 22 - 29 mmol/L 08/28/2024 11:29 PM [facility] ANION GAP 10 5 - 18 08/28/2024 11:29 PM [facility] GLUCOSE 119(H) 70 - 99 mg/dL 08/28/2024 11:29 PM [facility] CALCIUM 9.7 8.8 - 10.4 mg/dL 08/28/2024 11:29 PM [facility] Comment: Reference ranges for this test were updated on 03/30/2024 to reflect our healthy population more accurately. Reference range changes are not retroactively applied to results, but previous results using the same methodology can be interpreted in the context of the new reference range. BUN 17 6 - 20 mg/dL 08/28/2024 11:29 PM [facility] CREATININE 0.72 0.50 - 0.90 mg/dL 08/28/2024 11:29 PM [facility] BUN/CREAT RATIO 24(H) 10 - 20 11:29 PM [facility] eGFR >90 >90 mL/min/1. 73m2 08/28/2024 11:29 PM [facility] Comment:As of 2021, eG FR is calculated by the CKD-EPI creatinine equation without race adjustment. eGFR can be influenced by muscle mass, exercise, and diet. The reported eGFR is an estimation only and is only applicable if the renal function is stable. Blood BLOOD SPECIMEN / Unknown Venipuncture / Unknown 08/28/2024 11:07 PM CDT 08/28/2024 11:10 PM T us Ryan Hyde MD CHEMISTRY Final Result [facility] [address] [place] [address] * XR CHEST 1 VIEW PORTABLE (08/28/2024 11:03 PM CDT) Only the most recent of4 resultswithin the time period is included. Anatomical Region Laterality Modality HEART, THORAX, CHEST Digital Rad iography 08/28/2024 11:1 8 PM CDT Impressions 08/28/2024 11:18 PM CDT Unremarkable chest. Dictated by Hank Broderick MD @ 08/28/2024 11:18:15 PM (Electronically Signed) Narrative 08/28/2024 11:18 PM CDT For Patients: As a result of the Cures Act, medical imaging exams and procedure reports are released immediately into your electronic medical record. You may view this report before your referring provider. If you have questions, please contact your health care provider. INDICATION: Shortness of breath. TECHNIQUE: Chest 1 view. COMPARISON: 08/19/2024. FINDINGS: Cardiovascular and mediastinum: Heart size and vasculature are normal in caliber and appearance. Lungs and pleural spaces: Lungs are clear. No sign of infiltrate or mass. No sign of pleural effusion. No pneumothorax. Bones and soft tissues: No significant findings. Procedure Note Hank Broderick MD - 08/28/2024 For Patients: As a result of the Cures Act, medical imagingexams and procedure reports are released immediately into your electronicmedical record. You may view this report before your referring provider.If you have questions, please contact your health care provider. INDICATION: Shortness of breath. TECHNIQUE: Chest 1 view. COMPARISON: 08/19/2024. FINDINGS: Cardiovascular and mediastinum: Heart size and vasculature are normal incaliber and appearance. Lungs and pleural spaces: Lungs are clear. No sign of infiltrate or mass.No sign of pleural effusion. No pneumothorax. Bones and soft tissues: No significant findings. IMPRESSION: Unremarkable chest. Dictated by Hank Broderick MD @ 08/28/2024 11:18:15 PM (Electronically Signed) us Ryan Hyde MD GENERAL IMAGING Final Result * (ABNORMAL) POTASSIUM (08/24/2024 11:42 AM CDT) Only the most recent of17 resultswithin the time period is included. POTASSIUM 3.1(L) 3.5 - 5.1 mmol/L 08/24/2024 12:13 PM CDT [facility] Blood BLOOD SPECIMEN / Unknown Non-Lab Venipuncture / Unknown 08/24/2024 11:42 AM CDT 08/24/2024 11:48 AM CDT Sam Mancini MD CHEMISTRY Final Re sult Performing Organization Address City/[facility] Co de Phone Number [facility] [address] [place] [address], [place] * Creatinine TODAY (08/24/2024 11:42 AM CDT) Only the most recent of5 resultswithin the time period is included. eGFR >90 >90 mL/min/1.7 3m2 08/24/2024 12:46 PM CDT [facility] Comment:As of 2021, eG FR is calculated by the CKD-EPI creatinine equation without race adjustment. eGFR can be influenced by muscle mass, exercise, and diet. The reported eGFR is an estimation only and is only applicable if the renal function is stable. CREATININE 0.70 0.50 - 0.90 mg/dL 08/24/2024 12:46 PM CDT [facility] Blood BLOOD SPECIMEN / Unknown Non-Lab Venipuncture / Unknown 08/24/2024 11:42 AM CDT 08/24/2024 11:48 AM CDT Sam Mancini MD CHEMISTRY Final Re sult Performing Organization Address City/[facility]/ZIP Co de Phone Number [facility] [address] [place] [address], * (ABNORMAL) HEMOGLOBIN (08/23/2024 6:42 AM CDT) HEMOGLOBIN 10.3(L) 12.0 - 16.0 g/dL 08/23/2024 6:56 AM CDT [facility] MCV 95 80 - 100 fL 08/23/2024 6:56 AM CDT [facility] Blood BLOOD SPECIMEN / Unknown Venipuncture / Unknown 08/23/2024 6:42 AM CDT 08/23/2024 6:47 AM CDT Batool Sebastian MD HEMATOLOGY Final Result Performing Organization Address City/[facility]/ZIP Co de Phone Number [facility] [address] [place] [address], [place] * SODIUM (08/23/2024 6:42 AM CDT) Only the most recent of5 resultswithin the time period is included. SODIUM 143 136 - 145 mmol/L 08/23/2024 7:17 AM CDT [facility] Blood BLOOD SPECIMEN / Unknown Venipuncture / Unknown 08/23/2024 6:42 AM CDT 08/23/2024 6:48 AM CDT Batool Sebastian MD CHEMISTRY Final Result Performing Organization Address City/[facility] Co de Phone Number [facility] [address] [place] [address], [place] * (ABNORMAL) Pro Brain natriuretic peptide AM (08/23/2024 6:42 AM CDT) PRO-BNP 130(H) <125 pg/mL 08/23/2024 3:23 PM CDT [facility] Blood BLOOD SPECIMEN / Unknown Venipuncture / Unknown 08/23/2024 6:42 AM CDT 08/23/2024 6:48 AM CDT Narrative [facility] - 08/23/2024 3:23 PM CDT The following cut-points have been suggested for the use of proBNP for the diagnostic evaluation of heart failure (HF) in patient with acute dyspnea. Patients with eGFR >= 60 Diagnosis (rule in CHF) <50 Years Old 450 pg/mL 50 - 75 Years Old 900 pg/mL >75 Years Old 1800 pg/mL Exclusion (rule out CHF) Age Independent 300 pg/mL A cutoff of 1200 pg/mL for patients with an eGFR <60 yields a diagnostic sensitivity of 89% and specificity of 72% for acute congestive heart failure. Sam Mancini MD SEND OUTS Final Re sult Performing Organization Address City/[facility] Co de Phone Number [facility] [address] [address], [place] * MAGNESIUM (08/20/2024 6:34 AM CDT) Only the most recent of14 resultswithin the time period is included. MAGNESIUM 1.7 1.6 - 2.6 mg/dL 08/20/2024 7:28 AM CDT [facility] Blood BLOOD SPECIMEN / Unknown Venipuncture / Unknown 08/20/2024 6:34 AM CDT 08/20/2024 7:00 AM CDT Batool Sebastian MD CHEMISTRY Final Result Performing Organization Address [facility] Co de Phone Number [facility] [address] [address], [place] * (ABNORMAL) Electrolyte panel AM (08/18/2024 7:20 AM CDT) Only the most recent of2 resultswithin the time period is included. SODIUM 140 136 - 145 mmol/L 08/18/2024 8:35 AM CDT [facility] POTASSIUM 4.1 3.5 - 5.1 mmol/L 08/18/2024 8:35 AM CDT [facility] CHLORIDE 96(L) 98 - 107 mmol/L 08/18/2024 8:35 AM CDT [facility] CO2,TOTAL 37(H) 22 - 29 mmol/L 08/18/2024 8:35 AM CDT [facility] ANION GAP 7 5 - 18 08/18/2024 8:35 AM CDT [facility] Blood BLOOD SPECIMEN / Unknown Butterfly / Unknown 08/18/2024 7:20 AM CDT 08/18/2024 8:06 AM CDT us Batool Sebastian MD CHEMISTRY Final Result Performing Organization Address City/[facility]/ZIP Co de Phone Number [facility] [address] [place] [address], [place] * (ABNORMAL) GLUCOSE METER (08/17/2024 7:31 AM CDT) Only the most recent of41 resultswithin the time period is included. GLUCOSE METER 118(H) 65 - 100 mg/dL 08/17/2024 7:32 AM CDT [facility] Blood BLOOD SPECIMEN / Unknown 08/17/2024 7:31 AM CDT 08/17/2024 7:32 AM CDT us Batool Sebastian MD CHEMISTRY Final Result [facility] [address] [place] [address], [place] * SCAN-CARDIAC STRIP (08/12/2024 7:41 PM CDT) us Scanner OTHER Final Result * SCAN-CARDIAC STRIP (08/12/2024 7:26 AM CDT) us Scanner OTHER Final Result * SCAN-CARDIAC STRIP (08/11/2024 7:02 PM CDT) us Scanner OTHER Final Result * SCAN-CARDIAC STRIP (08/11/2024 12:20 AM CDT) us Scanner OTHER Final Result * SCAN-CARDIAC STRIP (08/10/2024 7:04 AM CDT) us Scanner OTHER Final Result * SCAN-CARDIAC STRIP (08/09/2024 8:07 PM CDT) us Scanner OTHER Final Result * SCAN-CARDIAC STRIP (08/09/2024 2:57 PM CDT) us Scanner OTHER Final Result * SCAN CORRESP-DIAGNOSTICS (08/09/2024 12:58 PM CDT) Narrative 08/09/2024 12:58 PM CDT Ordered by an unspecified provider. us Other Clinical Staff OTHER Final Resul t * SCAN CORRESP-IMAGING (08/09/2024 12:58 PM CDT) Anatomical Region Laterality Modality Other Narrative 08/09/2024 12:58 PM CDT Ordered by an unspecified provider. us Other Clinical Staff OTHER Final Resul t * SCAN CORRESP-LABORATORY RESULTS (08/09/2024 12:56 PM CDT) Narrative 08/09/2024 12:56 PM CDT Ordered by an unspecified provider. us Other Clinical Staff OTHER Final Resul t * (ABNORMAL) CBC (08/09/2024 5:01 AM CDT) Only the most recent of2 resultswithin the time period is included. WHITE BLOOD COUNT 13.8(H) 4.5 - 11.0 thou/cu mm 08/09/2024 5:20 AM CDT [facility] RED BLOOD COUNT 3.58(L) 4.00 - 5.20 mil/cu mm 08/09/2024 5:20 AM CDT [facility] HEMOGLOBIN 10.5(L) 12.0 - 16.0 g/dL 08/09/2024 5:20 AM CDT [facility] HEMATOCRIT 35.4 33.0 - 51.0 % 08/09/2024 5:20 AM CDT [facility] MCV 99 80 - 100 fL 08/09/2024 5:20 AM CDT [facility] MCH 29.3 26.0 - 34.0 pg 08/09/2024 5:20 AM CDT [facility] MCHC 29.7(L) 32.0 - 36.0 g/dL 08/09/2024 5:20 AM CDT [facility] RDW 14.6 11.5 - 15.5 % 08/09/2024 5:20 AM CDT [facility] PLATELET COUNT 201 140 - 440 thou/cu mm 08/09/2024 5:20 AM CDT [facility] MPV 9.6 6.5 - 11.0 fL 08/09/2024 5:20 AM CDT [facility] NRBC 0.0 % 08/09/2024 5:20 AM CDT [facility] ABS NRBC 0.0 thou /cu mm 08/09/2024 5:20 AM CDT [facility] Blood BLOOD SPECIMEN / Unknown Butterfly / Unknown 08/09/2024 5:01 AM CDT 08/09/2024 5:15 AM CDT us Rowdy Richardson MD HEMATOLOGY Kenia l Result [facility] [address] [place] [address], * SCAN-CARDIAC STRIP (08/08/2024 11:26 PM CDT) us Scanner OTHER Final Result * SCAN-CARDIAC STRIP (08/08/2024 9:35 AM CDT) us Scanner OTHER Final Result * (ABNORMAL) ARTERIAL BLOOD GAS (08/08/2024 4:31 AM CDT) Only the most recent of2 resultswithin the time period is included. PH, ARTERIAL 7.36 7.35 - 7.45 08/08/2024 4:54 AM CDT [facility] PCO2, ARTERIAL 92(HH) 32 - 45 mmHg 08/08/2024 4:54 AM CDT [facility] PO2, ARTERIAL 106 83 - 108 mmHg 08/08/2024 4:54 AM CDT [facility] HCO3, ARTERIAL 52(H) 21 - 28 mmol/L 08/08/2024 4:54 AM CDT [facility] BASE EXCESS, ARTERIAL 21.1(H) -2.0 - 3.0 08/08/2024 4:54 AM CDT [facility] O2 SATURATION, ARTERIAL 100(H) 94 - 98 % 08/08/2024 4:54 AM CDT [facility] INSPIRED O2 50 08/08/2024 4:54 AM CDT [facility] Comment:Unit of Measure: Lit ers (L) if <=20; Percent (%) if >20 PATIENT TEMPERATURE 37.0 Degrees C 08/08/2024 4:54 AM CDT [facility] Blood ARTERIAL BLOOD SPECIMEN / Unknown Non-Lab Venipuncture / Unknown 08/08/2024 4:31 AM CDT 08/08/2024 4:40 AM CDT us Rowdy Richardson MD CHEMISTRY Kenia l Result [facility] [address] [place] [address], * SCAN-CARDIAC STRIP (08/07/2024 11:11 PM CDT) us Scanner OTHER Final Result * SCAN-CARDIAC STRIP (08/07/2024 11:11 PM CDT) us Scanner OTHER Final Result * SCAN-CARDIAC STRIP (08/07/2024 2:32 PM CDT) us Scanner OTHER Final Result * Urinalysis W Reflex Microscopic if Positive (08/07/2024 1:25 PM CDT) COLOR Yellow Yellow Color 08/07/2024 1:47 PM CDT [facility] CLARITY Clear Clear Clarity 08/07/2024 1:47 PM CDT [facility] SPECIFIC GRAVITY,URINE 1.010 1.010, 1.015, 1.020, 1.025 08/07/2024 1:47 PM CDT [facility] PH,URINE 6.5 6.0, 7.0, 8.0, 5.5, 6.5, 7.5, 8.5 08/07/2024 1:47 PM CDT [facility] UROBILINOGEN, QUALITATIVE Normal Normal EU/dl 08/07/2024 1:47 PM CDT [facility] PROTEIN, URINE Negative Negative mg/dL 08/07/2024 1:47 PM CDT [facility] GLUCOSE, URINE Negative Negative mg/dL 08/07/2024 1:47 PM CDT [facility] KETONES,URINE Negative Negative mg/dL 08/07/2024 1:47 PM CDT [facility] BILIRUBIN,URI NE Negative Negative 08/07/2024 1:47 PM CDT [facility] OCCULT BLOOD,URINE Negative Negative 08/07/2024 1:47 PM CDT [facility] NITRITE Negative Negative 08/07/2024 1:47 PM CDT [facility] LEUKOCYTE ESTERASE Negative Negative 08/07/2024 1:47 PM CDT [facility] Urine URINE SPECIMEN / Unknown Non-Blood / Unknown 08/07/2024 1:25 PM CDT 08/07/2024 1:32 PM CDT Melissa Reeves MD URINE Final Result Performing Organization Address [facility]/ZIP Co de Phone Number [facility] [address] [place] [address], [place] * (ABNORMAL) RED CELL MORPHOLOGY (08/07/2024 1:01 PM CDT) POLYCHROMASIA Slight 08/07/2024 1:38 PM CDT [facility] RBC COMMENT Present(A) RBC morphology appears normal, RBC morphology within normal limits for newborns. 08/07/2024 1:38 PM CDT [facility] Blood BLOOD SPECIMEN / Unknown Venipuncture / Unknown 08/07/2024 1:01 PM CDT 08/07/2024 1:07 PM CDT Melissa Reeves MD HEMATOLOGY Final Result Performing Organization Address [facility] Co de Phone Number [facility] [address] [place] [address], [place] * (ABNORMAL) Hepatic Function Panel (08/07/2024 1:01 PM CDT) Pathologist [facility] ALBUMIN 4.0 4.0 - 4.9 g/dL 08/07/2024 1:30 PM CDT [facility] PROTEIN,TOTAL 7.5 6.0 - 8.0 g/dL 08/07/2024 1:30 PM CDT [facility] BILIRUBIN,TOTAL 0.2 0.0 - 1.2 mg/dL 08/07/2024 1:30 PM CDT [facility] BILIRUBIN,DIRECT 0.1 0.0 - 0.2 mg/dL 08/07/2024 1:30 PM CDT [facility] BILIRUBIN,INDIRE CT 0.1(L) 0.2 - 0.8 mg/dL 08/07/2024 1:30 PM CDT [facility] ALK PHOSPHATASE 102 35 - 104 IU/L 08/07/2024 1:30 PM CDT [facility] ALT (SGPT) 32 10 - 35 IU/L 08/07/2024 1:30 PM CDT [facility] AST (SGOT) 21 10 - 35 IU/L 08/07/2024 1:30 PM CDT [facility] Blood BLOOD SPECIMEN / Unknown Venipuncture / Unknown 08/07/2024 1:01 PM CDT 08/07/2024 1:07 PM CDT us Melissa Reeves MD CHEMISTRY Final Result [facility] [address] [place] [address], [place] * SCAN-ULTRASOUND REPORT (08/05/2024 12:00 AM CDT) Anatomical Region Laterality Modality Other us Scanner OTHER Final Result * SCAN-CT INTERPRETATION (08/05/2024 12:00 AM CDT) Only the most recent of3 resultswithin the time period is included. Anatomical Region Laterality Modality Other us Scanner OTHER Final Result * SCAN-RADIOLOGY REPORT (07/30/2024 12:00 AM STOCK AND STATION AGENT) Only the most recent of4 resultswithin the time period is included. Anatomical Region Laterality Modality Other us Scanner OTHER Final Result * ECHO TTE COMPLETE W CONTRAST (07/24/2024 3:13 PM STOCK AND STATION AGENT) AORTIC VALVE MEAN PG 4 mmHg EJECTION FRACTION 64 % Anatomical Region Laterality Modality Ultrasound 07/24/2024 2:27 PM STOCK AND STATION AGENT Narrative 07/24/2024 4:14 PM STOCK AND STATION AGENT ECHOCARDIOGRAM TASHIA HAZEL : 1975 49 years Study Date: 07/24/2024 2:27:08 PM Gender: F BP: 131/77 mmHg Height: 145.00 cm BSA: 1.97 m Weight: 112.00 kg Tech: [facility] Referring MD: DERICK MENDIETA Site: [facility] Reading Location: Mobile IP Patient [...] documentation: 2 ml diluted Definity, lot #[id number], [facility]# [id number] was administered peripherally to enhance visualization of all left ventricular segments. . This study was interpreted by an [facility] accredited facility. CC: HIM (med records) [facility], Med/Surg - IP [facility]. Final Procedure Note Armando Powell MD - 07/24/2024 ECHOCARDIOGRAM TASHIA HAZEL : 1975 49 years Study Date: 07/24/2024 2:27:08 PM Gender: F BP: 131/77 mmHg Height: 145.00 cm BSA: 1.97 m Weight: 112.00 kg Tech: [facility] Referring MD: DERICK MENDIETA Site: [facility] Reading Location: Mobile IP Patient [...] documentation: 2 ml diluted Definity, lot #[id number], [facility]#[id number] was administered peripherally to enhance visualization of allleft ventricular segments. . This study was interpreted by an [facility] accredited facility. CC: HIM (med records) [facility], Med/Surg - IP [facility]. Final us Derick Mendieta MD ECHO ORD Final Resu lt * SCAN-LABORATORY REPORT (07/11/2024 12:00 AM STOCK AND STATION AGENT) us Scanner OTHER Final Result * (ABNORMAL) LIPID PANEL W REFLEX MEASURED LDL (01/20/2024 4:00 PM CDT) CHOLESTEROL,TOTAL 261(H) 100 - 199 mg/dL 01/21/2024 1:44 PM CDT [facility] Comment: Cholesterol, Total Reference Ranges Desirable <200 mg/dL Borderline 200-239 mg/dL High >=240 mg/dL TRIGLYCERIDES 252(H) <150 mg/dL 01/21/2024 1:44 PM CDT [facility] HDL CHOLESTEROL 50 >40 mg/dL 1:44 PM CDT [facility] NON-HDL CHOLESTEROL 211(H) <145 mg/dl 01/21/2024 1:44 PM CDT [facility] CHOL/HDL RATIO 5.22(H) <4.50 01/21/2024 1:44 PM CDT [facility] LDL CHOLESTEROL 161(H) <=130 mg/dL 01/21/2024 1:44 PM CDT [facility] VLDL CHOLESTEROL 50(H) <=30 mg/dL 01/21/2024 1:44 PM CDT [facility] PROVIDER ORDERED STATUS RANDOM 01/21/2024 1:44 PM CDT [facility] Blood BLOOD SPECIMEN / Unknown Venipuncture / Unknown 01/20/2024 4:00 PM CDT 01/20/2024 4:00 PM CDT Geronimo Lamb MD CHEMISTRY Final Result Performing Organization Address [facility]/ZIP Co de Phone Number [facility] [address] [place] [address], [place] * ANTI HIV 1/2 (05/01/2022 4:36 PM [employer]ENT) HIV-1/HIV-2 ANTIBODY Non-Reacti ve Non-Reacti ve 05/04/2022 9:59 PM [employer]ENT [facility] Comment:HIV-1 p24 and HIV-1/ HIV-2 Ab not detected. Blood BLOOD SPECIMEN / Unknown Butterfly / Unknown 05/01/2022 4:36 PM [employer]ENT 05/01/2022 4:41 PM [employer] AGENT us Geronimo Lamb MD SEND OUTS Final Result Performing Organization Address [facility] Co de Phone Number [facility] [address] [place] [address], [place] * ANTI HCV (12/05/2021 9:30 AM CDT) HEPATITIS C ANTIBODY Non-React shikha Non-React shikha 12/05/2021 9:16 PM CDT [facility] Comment:Antibodies to HCV no t detected; does not exclude the possibility of exposure to HCV. Blood BLOOD SPECIMEN / Unknown Venipuncture / Unknown 12/05/2021 9:30 AM CDT 12/05/2021 9:33 AM CDT us Geronimo Lamb MD SEND OUTS Final Result Performing Organization Address City/[facility]/ZIP Co de Phone Number [facility] [address] [place] [address], * SCAN-MAMMOGRAPHY REPORT (02/24/2019 12:00 AM CDT) Anatomical Region Laterality Modality Other us Scanner OTHER Final Result from Last 3 Months or Most Recently Relevant to Health Maintenance Insurance [facility] MEDICARE PART A HB ONLY Advance Directives * Full Code (Latest Code Status on File) Date Activated Date Inactivated Comments 08/07/2024 12:43 PM 08/24/2024 8:35 PM Question Answer Comments Code Status Discussion: Reviewed Preferences * Full Code Date Activated Date Inactivated Comments 05/09/2024 10:07 PM 05/11/2024 4:49 PM Question Answer Comments Code Status Discussion: Reviewed Preferences Care Teams Global Program Manager Relationship Specialty Start Date End Date Geronimo Lamb MD [address] [place] [address] PCP - General Family Practice 04/23/21 Paolo Limon MD Sleep Medicine 10/28/11 Talon Durham MD Neurology Neurology 11/26/11 Laura Gardner PsyD, [facility] Psychology 09/14/13 [place] [address] [facility] [place] [address] Pulmonology Pulmonary Medicine 01/22/24
--- OUTSIDE RECORDS SUMMARY | 2024-10-05 18:08 | XMS_ITS | Clinical Summary ---
Author Organization [facility] Address [address] [place] [address] Care Team Providers Care Communication Equipment Repairer Name Role Phone Elsewhere, Pcp Primary Care Provider Unavailabl e Source Comments Patient records contain information from all sites at [facility]. For routine questions regarding patient records, call [phone] during business hours, M-F 8:00 AM - 5:00 PM Central Time. Record requests for emergency care only can be directed to [phone] at any time.[facility] Allergies Active Allergy Reactions Criticality Noted Date [...] Assigned at Female 06/02/2018 2:11 PM MANAGER FACILITY Legal Sex Female 5:08 AM MANAGER FACILITY Gender Identity Female 06/02/2018 2:11 PM MANAGER FACILITY Sexual Orientation Choose not to disclose 2018 2:11 PM MANAGER FACILITY Last Filed Vital Signs Vital Sign Reading [...] this topic Medical Devices Implanted Type Area Dairy Inspector Device Identifier Shelf Expiration Date Model / Serial / Lot Ear Implant- [id number] Implanted:11/24 (Quantity not on file) Ear Implant Ear [facility] Bernice Vega TORP Plasti-pore [id number] / / [id number] Description:[facility], [place], [place]. Ear implant-Vega TOPR Plasti-pore MRI Safe Procedures Procedure Name Priority Date/Time Associated Diagnosis Comments THYROID-STIMULATING HORMONE-SENSITIVE (S-TSH) Routine 10/27/2018 3:42 PM CDT Hypothyroidism Primary BASIC METABOLIC PANEL, S/P Routine 03/11/2018 1:58 PM CDT Dizziness Diplopia LIPID PANEL, S Routine 06/10/2016 10:40 AM MANAGER FACILITY from Last 3 Months or Most Recently Relevant to Health Maintenance Results * (ABNORMAL) S-TSH (Thyroid-Stimulating Hormone - Sensitive) (10/27/2018 3:42 PM CDT) TSH, Sensitive 10.7(H) 0.3 - 4.2 mIU/L 10/27/2018 5:20 PM CDT Comment: Biotin has been identified by the can closing machine operator as a potential interfering substance. [...] Tsang P.A.-C. LAB BLOOD ADD-ON Final Result [facility] [address] [place] [address], [facility] * Basic Metabolic Panel (03/11/2018 1:58 PM CDT) Potassium, S 4.0 3.6 - 5.2 mmol/L 03/11/2018 2:29 PM CDT [facility] Sodium, S 141 135 - 145 mmol/L 03/11/2018 2:29 PM CDT [facility] Chloride, S 101 98 - 107 mmol/L 03/11/2018 2:29 PM CDT [facility] Bicarbonate, S 27 22 - 29 mmol/L 03/11/2018 2:29 PM CDT [facility] Anion Gap 13 7 - 15 03/11/2018 2:29 PM CDT [facility] BUN (Blood Urea Nitrogen), S 12 6 - 21 mg/dL 03/11/2018 2:29 PM CDT [facility] Creatinine 0.62 0.59 - 1.04 mg/dL 03/11/2018 2:29 PM CDT [facility] eGFR-Non Black/ >90 >=60 mL/min/BSA 03/11/2018 2:29 PM CDT [facility] Comment: ----ADDITIONAL INFORMATION---- Estimated GFR calculated using the 2009 CKD_EPI creatinine equation. eGFR-Black/Afri can [place] >90 >=60 mL/min/BSA 03/11/2018 2:29 PM CDT [facility] Comment: ----ADDITIONAL INFORMATION---- Estimated GFR calculated using the 2009 CKD_EPI creatinine equation. Calcium, Total, S 9.4 8.6 - 10.0 mg/dL 03/11/2018 2:29 PM CDT [facility] Glucose, S 95 70 - 140 mg/dL 03/11/2018 2:29 PM CDT [facility] Blood (Blood, Venous) 03/11/2018 1:58 PM CDT 03/11/2018 1:58 PM CDT Deanne Tsang P.A.-C. LAB BLOOD ADD-ON Final Result Performing Organization Address City/State/[facility] Co de Phone Number [facility] [address] * (ABNORMAL) Lipid Panel (06/10/2016 10:40 AM MANAGER FACILITY) [facility] Cholesterol, Total 275(H) <=199 MGDL POWERCHART [...] for FH and FDB is available through [facility]: FH/ADH Genetic Reflex Panel (test ADHP). Acquired (non-genetic) causes of markedly increased LDL cholesterol include cholestatic liver disease due to the presence of LpX. If a genetic form of hypercholesterolemia is suspected, family studies including biochemical testing for lipids (total cholesterol,triglycerides, LDL cholesterol and HDL cholesterol) are recommended. Please contact the laboratory at or the on-line test catalog at [employer] [facility] for information about how to order these tests or to speak with a genetic counselor. Further interpretation would require clinical information. Total Cholesterol/HDL Ratio 5 POWERCHART Blood 06/10/2016 10:4 0 AM MANAGER FACILITY us Ana Chery M.D. LAB BLOOD ADD-ON Final Re sult POWERCHART from Last 3 Months or Most Recently Relevant to Health Maintenance Insurance [facility] Care Teams Communication Equipment Repairer Relationship Specialty Start Date End Date Elsewhere, Pcp PCP - General Internal Medicine 12/04/18
--- OUTSIDE RECORDS SUMMARY | 2024-10-05 18:08 | XMS_ITS | CCD ---
Author Organization Unknown Care Team Providers Care Jewelry Sales Representative Name Role Phone Unhairing Machine Operator, [place] Primary Care Provider Unava ilable Unavailable Chronic Care Management Unavaila ble Summary Purpose DataExchange Insurance Providers Payer name Policy type / Coverage type Covered republican ID Effective Begin Date Effective End Date are Commercial Insurance [id number] Unkn own Family History Family History data not found Medication Administered No Medication Administered data Reason For Visit No Reason For Visit data
--- OUTSIDE RECORDS SUMMARY | 2024-10-05 18:08 | XMS_ITS | CCD ---
Author Organization Unknown Care Team Providers Care Secretary Book Keeper Name Role Phone Concrete Foreman, [place] Primary Care Provider Unava ilable Unavailable Chronic Care Management Unavaila ble Summary Purpose DataExchange Insurance Providers Payer name Policy type / Coverage type Covered republican ID Effective Begin Date Effective End Date are Commercial Insurance [id number] Unkn own Family History Family History data not found Medication Administered No Medication Administered data Reason For Visit No Reason For Visit data
--- NOTE | 2024-10-05 18:19 | ED.GENADULT ---
HPI - General Adult General Date Seen: 10/05/24 Chief complaint: Shortness of Breath/Dyspnea Stated complaint: SOB Time Seen by Provider: 10/05/24 18:19 History of Present Illness HPI narrative: 49-year-old female with a past history of COPD and asthma (on home oxygen), sleep apnea, hyperthyroidism, hyperlipidemia, anxiety, hydrocephalus. She was hospitalized for RSV infection in end of June-beginning of July of 2024, 2 months ago. Most recent ER visit was 08/05/2024. She presented with shortness of breath and weakness. She was tachycardic, tachypneic, hypoxic to 78% . Workup in the ER showed negative ultrasound for DVT. Chest CTA showed no PE but she did have some new infiltrates unlikely a new pneumonia. She had a white count of 12. She was rehospitalized for pneumonia. Per discharge summary from 08/07. acute on chronic recurrent in setting of acute pneumonia, history of severe persistent asthma, RODRICK/noncompliance with CPAP, obesity hypoventilation, HFpEF -VBG pH 7.382, pCO2 77-80 (prior to 07/20, baseline was in the 50s, current baseline 70s), PO2 60.5, HC03 45 -CTA chest shows Ffbh-wh-ybolznhy patchy bilateral ground-glass airspace opacities and scattered areas of consolidation may represent atypical infection -admission Mag 1.9, treated with improvement to 2.4 (2) Pneumonia: Status: Acute Problem details: -suspected, atypical, post recent hospitalization for RSV and pneumonia (at that time was on azithromycin and ceftriaxone) -leukocytosis with left shift, lactate 0.7, procalcitonin 0.07, triple swab negative, BC x1 pending (NO GROWTH upon transfer 08/07) -strep pneumo/Legionella negative -Vancomcyin and Zosyn initiated 08/05, d/c Vanco 08/06 and adding Doxycycline Echocardiogram 07/24/2024 Final Impressions: 1. Technically limited exam. 2. Normal LV function with EF of 64%. 3. Right ventricular cavity size is moderately enlarged, global systolic RV function is normal. 4. Echo contrast was administered to enhance visualization of all left ventricular segments. 5. The mitral valve is not well visualized, no mitral regurgitation. 6. The aortic valve is not well visualized, no stenosis and no regurgitation. She says that ever since she got out of the hospital a couple weeks ago she has been doing poorly. She has been a little bit more short of breath than normal and a little bit weaker than normal. She also says that she is not getting adequate care for her ADLs at her current living facility ([facility]). For the past week or so she has noted increasing dyspnea on exertion and increasing generalized weakness. She has not noted any new swelling in her legs and if anything her chronic lower extremity edema is less than normal. She had a bad episode of chest pain 5 days ago, last Friday. She actually had that happen when she was out to dinner with her father and then visiting her mother's grave in the cemetery for mother's Day. She is not really having any chest pain today. However for the past few days she noticed increased dyspnea on exertion. She is not really short of breath at rest. She has had increased weakness with exertion as well. Symptoms finally came to the point today where she was not able to walk out of her room down to the cafeteria at her long-term and so she was brought here to the ER by EMS. She has chronic oxygen 2 L at home but has been using 4 L nasal cannula because of her shortness of breath for the past several days. She does take water pills and is on Lasix. She has been taking it as prescribed (20 mg b.i.d.). She has not had a cough. No fever. No real chest pain since last Friday. No palpitations. Related Data Home Medications ?Medication ?Instructions ?Recorded ?Confirmed albuterol sulfate 90 mcg/actuation 1 - 2 puff inhalation Q4H PRN 11/30/21 08/06/24 aerosol inhaler mirabegron 50 mg tablet,extended 50 mg PO DAILY 11/30/21 08/06/24 release 24 hr (Myrbetriq) montelukast 10 mg tablet 10 mg PO HS 11/30/21 08/06/24 levetiracetam 750 mg tablet 750 mg PO BID 11/25/22 08/06/24 (Keppra) paroxetine HCl 40 mg tablet 40 mg PO DAILY 01/30/23 08/06/24 levothyroxine 100 mcg tablet 100 mcg PO DAILY 10/16/23 08/06/24 famotidine 20 mg tablet 20 mg PO BID 07/23/24 08/06/24 fluticasone propionate 50 2 spray intranasal DAILY 07/23/24 08/06/24 mcg/actuation nasal spray,suspension furosemide 20 mg tablet 20 mg PO BID@08,12 07/23/24 08/06/24 ipratropium 0.5 mg-albuterol 3 mg 1 ml inhalation TID 07/23/24 08/06/24 (2.5 mg base)/3 mL nebulization soln mirtazapine 15 mg tablet 15 mg PO HS 07/23/24 08/06/24 cholecalciferol (vitamin D3) 50 50 mcg PO DAILY 08/06/24 08/06/24 mcg (2,000 unit) tablet guaifenesin 600 mg tablet, 600 mg PO BID PRN 08/06/24 08/06/24 extended release 12 hr (Mucus Relief ER) omeprazole 40 mg capsule,delayed 40 mg PO DAILY 08/06/24 08/06/24 release polyethylene glycol 3350 17 17 g PO DAILY PRN 08/06/24 08/06/24 gram/dose oral powder potassium chloride 10 mEq 20 meq PO DAILY 08/06/24 08/06/24 tablet,extended release(part/cryst) Previous Rx's ?Medication ?Instructions ?Recorded budesonide-formoterol HFA 160 2 puff inhalation BID #1 g 02/02/23 mcg-4.5 mcg/actuation aerosol inhaler (Symbicort) Allergies Allergy/AdvReac Type Severity Reaction Status Date / Time azithromycin Allergy Intermediate Bloody Verified 08/05/24 19:44 Stools latex Allergy Intermediate Rash Verified 08/05/24 19:44 oxycodone Allergy Intermediate Agitated Verified 08/05/24 19:44 scopolamine Allergy Intermediate Tremors Verified 08/05/24 19:44 basil Allergy Rash Verified 08/05/24 19:44 [facility] Medical History Heart failure with preserved ejection fraction ?I50.30 - Unspecified diastolic (congestive) heart failure (ICD-10) Vocal cord dysfunction ?J38.3 - Other diseases of vocal cords (ICD-10) Acute on chronic respiratory failure with hypoxia and hypercapnia ?J96.21 - Acute and chronic respiratory failure with hypoxia (ICD-10) ?J96.22 - Acute and chronic respiratory failure with hypercapnia (ICD-10) Hypercarbia ?R06.89 - Other abnormalities of breathing (ICD-10) Hypothyroidism ?E03.9 - Hypothyroidism, unspecified (ICD-10) Acute and chronic respiratory failure with hypoxia ?J96.21 - Acute and chronic respiratory failure with hypoxia (ICD-10) 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 - Unspecified convulsions (ICD-10) RODRICK (obstructive sleep apnea) ?G47.33 - Obstructive sleep apnea (adult) (pediatric) (ICD-10) ADHD ?F90.9 - Attention-deficit hyperactivity disorder, unspecified type (ICD-10) Hyperthyroidism ?E05.90 - Thyrotoxicosis, unspecified without thyrotoxic crisis or storm (ICD-10) Hydrocephalus ?G91.9 - Hydrocephalus, unspecified (ICD-10) Hyperlipidemia ?E78.5 - Hyperlipidemia, unspecified (ICD-10) Anxiety and depression ?F41.9 - Anxiety disorder, unspecified (ICD-10) ?F32.A - Depression, unspecified (ICD-10) Asthma ?J45.909 - Unspecified asthma, uncomplicated (ICD-10) Surgical History History of ear surgery ?Z98.890 - Other specified postprocedural states (ICD-10) History of strabismus surgery ?Z98.890 - Other specified postprocedural states (ICD-10) Social History Narrative: on disability since 2009; lives alone with her cat. nonsmoker, no drugs, no significant tobacco history adopted, her two adopted aunts are her family contacts. What is your current living situation?: I presently have a place to live Problems where you live: no known problems Problems where you live details: N/A In the past 12 months, utilities in danger of being shut off: no In past 12 months, lack of transportation kept you from medical appts, meetings, work, or getting things needed for daily living: no In the past 12 mos, have been you worried that your food would run out before you had money to buy more?: never true In the past 12 mos, the food you bought just didn't last and you didn't have money to buy more?: never true Highest level of school completed/degree received: Associate degree: academic program Smoking Status: Never smoker Do you use any of these nicotine containing products: None Second hand tobacco smoke exposure: Yes How often do you have a drink containing alcohol: never How often do you have six or more drinks on one occasion: Never AUDIT-C Alcohol total score: 0 Non-prescribed substance use: denies use Caffeine: No How often does anyone, including family, friends and others, physically hurt you: never How often does anyone, including family, friends and others, insult or talk down to you: never How often does anyone, including family, friends and others, threaten you with harm: never How often does anyone, including family, friends and others, scream or curse at you: never service: No Exam Narrative: Exam Narrative: Constitutional: Appears well-developed. Heavyset. Alert. Conversant. Non toxic. HENT: Head: Atraumatic. Nose: Nose normal. Mouth/Throat: Oral mucosa is clear and moist. no trismus. Pharynx normal. Tonsils symmetric. No tonsillar enlargement, erythema, or exudate. Eyes: Conjunctivae normal. EOM normal but she does have a dysconjugate gaze which is her baseline. Pupils equal, round, and reactive to light. No scleral icterus. Neck: Normal range of motion. Neck supple. No tracheal deviation present. Difficult to appreciate JVD because of body habitus Cardiovascular: Normal rate, regular rhythm. No gallop. No friction rub. No murmur heard. Symmetric radial and PT artery pulses Pulmonary/Chest: Effort normal. No stridor. No respiratory distress. No wheezes. Bibasal rales. No rhonchi . No tenderness. Abdominal: Soft. No distension. No mass. No tenderness. No rebound. No guarding. Musculoskeletal: RUE: Normal range of motion. No tenderness. No deformity LUE: Normal range of motion. No tenderness. No deformity RLE: Normal range of motion. No edema. No tenderness. No deformity LLE: Normal range of motion. No edema. No tenderness. No deformity Neurological: Alert and oriented to person, place, and time. Normal strength. CN II-VII intact. No sensory deficit. GCS eye subscore is 4. GCS verbal subscore is 5. GCS motor subscore is 6. Normal coordination no focal deficits. No unilateral facial droop. She has generalized weakness. She says she feels too weak to walk more than a couple of steps. Skin: Skin is warm and dry. No rash noted. No pallor. Normal capillary refill. Psychiatric: Normal mood. Normal affect. Const: Vital Signs, click to edit/add: Vital Signs - 24 hr 10/05/24 18:13 10/05/24 18:33 10/05/24 18:33 Temperature 98.1 F Pulse Rate 92 Pulse Rate [Pulse Oximeter] 83 Respiratory Rate Blood Pressure [Ri ght Forearm] 122/68 Pulse Oximetry 92 92 95 Oxygen Delivery Me thod Nasal Cannula Nasal Cannula Oxygen Flow Rate 4 4 10/05/24 18:45 10/05/24 19:02 10/05/24 19:30 Temperature Pulse Rate 91 107 H 92 Pulse Rate [Pulse Oximeter] Respiratory Rate 16 9 L Blood Pressure [Ri ght Forearm] Pulse Oximetry 94 88 95 Oxygen Delivery Me thod Oxygen Flow Rate 10/05/24 19:45 10/05/24 20:00 Temperature Pulse Rate 93 93 Pulse Rate [Pulse Oximeter] Respiratory Rate 18 Blood Pressure [Ri ght Forearm] Pulse Oximetry 96 96 Oxygen Delivery Me thod Oxygen Flow Rate Course Vital Signs Vital signs: Initial Vital Signs Temperature 98.1 F 10/05/24 18:13 Temperature Source Temporal Artery Scan 10/05/24 18:13 Pulse Rate 83 10/05/24 18:13 Blood Pressure 122/68 10/05/24 18:13 Blood Pressure Mean 86 10/05/24 18:13 Blood Pressure Position Sitting 10/05/24 18:13 Pulse Oximetry 92 10/05/24 18:13 Oxygen Delivery Method Nasal Cannula 10/05/24 18:13 Oxygen Flow Rate 4 10/05/24 18:13 Vital Signs Temperature 98.1 F 10/05/24 18:13 Pulse Rate 83 10/05/24 18:13 Blood Pressure 122/68 10/05/24 18:13 Pulse Oximetry 92 10/05/24 18:13 Oxygen Delivery Method Nasal Cannula 10/05/24 18:13 Oxygen Flow Rate 4 10/05/24 18:13 Temperature 98.1 F 10/05/24 18:13 Pulse Rate 93 10/05/24 20:00 Respiratory Rate 18 10/05/24 19:45 Blood Pressure 122/68 10/05/24 18:13 Pulse Oximetry 96 10/05/24 20:00 Oxygen Delivery Method Nasal Cannula 10/05/24 18:33 Oxygen Flow Rate 4 10/05/24 18:33 Medications Administered Medications: Discontinued Medications Generic Name Dose Route Start Last Admin Trade Name Vinh PRN Reason Stop Dose Admin Albuterol/Ipratropium 1 neb 10/05/24 18:46 10/05/24 19:30 Iprat-Albut 0.5-2.5 Mg/3 Ml Neb IH 10/05/24 18:47 1 neb ONCE ONE Administration Potassium Bicarbonate 25 meq 10/05/24 20:52 10/05/24 21:01 Potassium Bicarb 25 Meq Effervescent Tab PO 10/05/24 20:53 25 meq ONCE ONE Administration Medical Decision Making [facility] Narrative Medical decision making narrative: 49-year-old female with a complex past medical history presenting to the ER today by EMS from her long-term for evaluation of progressive worsening dyspnea on exertion and generalized weakness. It sounds like the symptoms are fairly chronic for her but have gotten acutely worse recently (at least for the past 5 days, may be progressing over as long as 10 days or 2 weeks). She also episode of severe chest pain that happened 5 days ago. She is here in the ER today not because of acute chest pain but because her dyspnea has been getting worse. She is mentating normally. No signs of confusion or hypercarbia. Oxygen is in the 90s. She came in on 4 L nasal cannula which is double her baseline oxygen supplement. I was able to wean her down to 3 L temporarily and nurses put her back on 4 L.. Differential is broad. She has a history of COPD. However not particularly wheezy on my initial exam. We had attempted. DuoNeb without any change in her dyspnea. Chest x-ray is negative for any obvious acute focal infiltrate to suggest a lobar pneumonia. COVID/influenz PCR is negative. The patient does have bibasilar rales which to me he is could be suspicious for pulmonary edema. BNP is doubled from her recent baseline in July up top 824. She is not having marked hypertension requiring nitro drip or CPAP. Will increase her dose of loop diuretic to help correct CHF. Normal daily dose is 40 mg total. 40 mg IV administered here in the ER. Complicating need for diuresis is that she also has hypokalemia with a potassium of 2.8. She has received 50 mEq of oral potassium here in the ER. Will need to monitor for hypokalemia given her loop diuretic. Complicating her hypokalemia is she is also having watery diarrhea here in the ER which could also contribute further GI losses. Patient does have an abnormal D-dimer. I have ordered a CT scan of her chest to rule out PE. This result is pending at the time of this dictation. Additionally she has generalized weakness which makes it difficult for her to walk. She is not able to care for self based on her current breathing and weakness. Therefore hospitalization is indicated. Discussed with our hospitalist, Dr. Villavicencio at about 10:50 p.m.. He agrees that the patient would meet criteria for hospitalization but cannot do the admission himself tonight because he is already swabbed with other admits. He requests that we contact the overnight hospitalist when they come on duty after midnight. Discussed with my partner, who will follow-up on the results of the outstanding CT and will contact the overnight hospitalist for admission. Lab Data Labs: Lab Results 10/05/24 10/05/24 Range/Units 19:06 19:10 WBC 12.85 H (4.50-11.00) K/uL RBC 3.42 L (4.00-5.20) m/uL Hgb 9.7 L (12.0-16.0) gm/dL Hct 31.7 L (33.0-51.0) % MCV 93 (80-100) fL MCH 28 (26-34) pg MCHC 31 L (32-36) gm/dL RDW Coeff of Tomy 13.8 (11.5-15.5) % Plt Count 258 (140-440) K/uL Neut % (Auto) 78.0 H (42.0-72.0) % Lymph % (Auto) 11.1 L (20-44) % Mccreary % (Auto) 5.9 (0.0-11.0) % Eos % (Auto) 4.1 (0.0-7.0) % Baso % (Auto) 0.4 (0.0-3.0) % Neut # (Auto) 10.00 H (1.7-7.0) K/uL Lymph # (Auto) 1.40 (0.90-2.90) K/uL Mccreary # (Auto) 0.80 (0.00-0.90) K/UL Eos # (Auto) 0.50 (0.00-0.50) K/uL Baso # (Auto) 0.10 (0.00-0.30) K/uL Abs Immat Gran (auto) 0.10 (0.00-0.30) K/uL Imm/Tot Granulo (auto) 0.5 % D-Dimer Quant (PE/DVT) 1.70 H (0.00-0.50) ug/ml VBG pH 7.449 H (7.32-7.43) VBG pCO2 60 H (40-50) mmHG VBG pO2 83.7 H (25-47) mmHG VBG HCO3 41 H (21-28) mmol/L Sodium 141 (135-149) mmol/L Potassium 2.8 L* (3.6-5.1) mmol/L Chloride 93 L (96-114) mmol/L Carbon Dioxide 40 H (20-32) mmol/L Anion Gap 8 (7-15) mEq/L BUN 13 (5-24) mg/dL Creatinine 0.7 (0.5-1.5) mg/dL Estimated Creat Clear 176.44 Estimated GFR 107 ml/min Glucose 106 (60-115) mg/dL Lactate 1.1 (0.5-1.9) mmol/L Calcium 8.4 (8.4-10.6) mg/dL Troponin I < 0.01 (0.01-0.04) ng/mL NT-Pro-B Natriuret Pep 824 pg/mL SARS-CoV-2 (PCR) Negative SARS-CoV-2 (Negative) Influenza Type A (PCR) Negative PCR FLU A (Negative) Influenza Type B (PCR) Negative PCR FLU B (Negative) Imaging Data Chest x-ray: Attestation: I have reviewed the pertinent imaging results. Radiologist's impression: IMPRESSIONS: 1. Mild pulmonary vascular congestion with diffuse reticular interstitial infiltrates are present, similar to prior exam. 2. The central pulmonary arteries are enlarged and likely due to pulmonary hypertension. 3. Mild, stable cardiomegaly is noted. ECG Data Attestation: I personally reviewed and interpreted this ECG as follows: Interpretation: Normal sinus rhythm Rate 92 ID 150 QRS axis normal. Low voltage QRS No ST Segment elevation or depression. Nonspecific T wave flattening. QTC: 492 Discharge Plan Discharge Clinical Impression: CHF (congestive heart failure), Acute hypokalemia, Generalized weakness Patient Disposition: Admitted As Observation
--- NOTE | 2024-10-05 18:46 | CRLHL7_ITS ---
For Patients: As a result of the Century Cures Act, medical imaging exams and procedure reports are released immediately into your electronic medical record. You may view this report before your referring provider. If you have questions, please contact your health care provider. INDICATION: Dyspnea on exertion, chest pain TECHNIQUE: Chest radiograph 2 views COMPARISON: 07/30/2024 FINDINGS: Mediastinum: The central pulmonary arteries are enlarged and likely due to pulmonary hypertension. Mild, stable cardiomegaly is noted. Lung: Mild pulmonary vascular congestion with diffuse reticular interstitial infiltrates are present, similar to prior exam. No sign of pleural effusion seen. No pneumothorax is identified. Bone and Soft tissue: Unremarkable for age. Miscellaneous: Body with signs severely IMPRESSIONS: 1. Mild pulmonary vascular congestion with diffuse reticular interstitial infiltrates are present, similar to prior exam. 2. The central pulmonary arteries are enlarged and likely due to pulmonary hypertension. 3. Mild, stable cardiomegaly is noted. Dictated by Chandan Campbell MD @ 10/05/2024 7:24:26 PM Dictated by: Chandan Campbell MD @ 10/05/2024 19:24:29 (Electronically Signed)
--- OUTSIDE RECORDS SUMMARY | 2024-10-05 19:02 | XMS_ITS | CCD ---
Author Organization Unknown Care Team Providers Care Maintenance Mechanic Name Role Phone Drilling Field Specialist, [place] Primary Care Provider Unava ilable Unavailable Chronic Care Management Unavaila ble Summary Purpose DataExchange Insurance Providers Payer name Policy type / Coverage type Covered alliance party ID Effective Begin Date Effective End Date are Commercial Insurance [id number] Unkn own Family History Family History data not found Medication Administered No Medication Administered data Reason For Visit No Reason For Visit data
--- OUTSIDE RECORDS SUMMARY | 2024-10-05 19:02 | XMS_ITS | CCD ---
Author Organization Unknown Care Team Providers Care Oracle Pl Sql Developer Name Role Phone Chief Medical Director, [place] Primary Care Provider Unava ilable Unavailable Chronic Care Management Unavaila ble Summary Purpose DataExchange Insurance Providers Payer name Policy type / Coverage type Covered alliance party ID Effective Begin Date Effective End Date are Commercial Insurance [id number] Unkn own Family History Family History data not found Medication Administered No Medication Administered data Reason For Visit No Reason For Visit data
--- OUTSIDE RECORDS SUMMARY | 2024-10-05 19:02 | XMS_ITS | Clinical Summary ---
Author Organization [employer] [facility] Address [facility] [place] [address] Care Team Providers Care Table Inspector Name Role Phone Paolo Limon MD Unavailable Talon Durham MD Unavailable [phone] Laura Gardner PsyD, LP Unavailable [phone] Geronimo Lamb MD Primary Care Provider Luis Santos DO Unavailable [phone] Allergies Active Allergy Reactions Criticality Noted Date [...] 02/23/200911/2011 Dizziness 06/03/2024 Overview (04/23/2021): Eval by [facility] neurology 2018. Thought to be functional. Referred to psychiatry. Encounters Date Type Department Care Team Description 10/01/2024 Refill [facility] [address] [place] [address] Geronimo Lamb MD Refill Request (Torsemide 10mg tablet) 09/30/2024 2:45 PM CDT Orders Only [address] [address] Lab, [place] [facility] 09/30/2024 10:35 AM CDT Office Visit [facility] [address] [place] [address] Geronimo Lamb MD Hospital F/U ([facility], 08/07/2024 - 08/24/2024, [facility], 08/24/2024 - 09/06/2024, respiratory failure) 09/30/[address] [address] Geronimo Lamb MD Medication Management (mirabegron EXTENDED-release (Myrbetriq) 50 mg tablet ) 09/30/[address] [address] Geronimo Lamb MD Medication List Update 09/30/2024 Travel 09/26/[address] [address] Geronimo Lamb MD Refill Request (Mucus Relief Er) 08/28/2024 10:49 PM CDT - 08/29/2024 12:[address] [facility] [address] [place] [address] Ryan Hyde MD SOB (shortness of breath) (Primary Dx) Discharge Disposition: [facility] 08/28/2024 Travel 08/07/2024 12:27 PM CDT - 08/24/2024 6:35 PM CDT Hospital Encounter [facility] [address] [place] [address] Melissa Reeves MD Wolfe, Adam [...] fraction, unspecified HF chronicity (HC) Discharge Disposition: [facility]pc Facility 08/05/2024 Orders Only [facility] Scanner 1 scan: (1-Ord) [place], [place] ANGIO CHEST PE PROTOCOL, 08/05/2024 08/05/2024 Orders Only [facility] Scanner 1 scan: (1-Ord) [facility], US VENOUS LE LT, 08/05/2024 08/05/2024 Orders Only [facility] [address] [place] [address] Geronimo Lamb MD <No scans attached> 08/04/2024 2:30 PM CDT Telemedicine [facility] [address] [place] [address] Geronimo Lamb MD Telehealth (No vitals taken); Hospital F/U ([facility], RSV) 08/04/2024 Travel 08/02/2024 Telephone [facility] [address] [place] [address] Geronimo Lamb MD Follow Up 07/30/2024 Orders Only [facility] Scanner 1 scan: (1-Ord) [facility], CHEST W/O CONT, 07/30/2024 07/30/2024 Orders Only [facility] Scanner 1 scan: (1-Ord) [facility], CHEST 1V PORTABLE , 07/30/2024 07/29/2024 10:10 AM DESIGN/ANIMATION INSTRUCTOR Telemedicine [facility] [address] [facility] [address] Geronimo Lamb MD Telehealth (No vitals taken); Follow Up 07/29/2024 Travel 07/29/2024 Telephone [facility] [address] [place] [address] Geronimo Lamb MD APPT (SWITCH FROM IN PERSON TO VIRTUAL ) 07/27/2024 Orders Only [facility] Scanner 1 scan: (1-Ord) [facility], CHEST 1V, 07/27/2024 07/24/2024 2:15 PM DESIGN/ANIMATION INSTRUCTOR Ancillary Procedure [facility] [address] [place] [address] 07/24/2024 Orders Only [facility] Scanner 1 scan: (1-Ord) [facility], CT ANGIO CHEST PE PROTOCOL, 07/24/2024 07/23/2024 Orders Only [facility] Scanner 1 scan: (1-Ord) [facility], XR CHEST 1V PORTABLE, 07/23/2024 07/21/2024 10:30 AM DESIGN/ANIMATION INSTRUCTOR Office Visit [facility] [address] [place] [address] Geronimo Lamb MD Follow Up 07/20/2024 11:00 AM DESIGN/ANIMATION INSTRUCTOR Office Visit [facility] [address] [place] [address] Heather Cruz PA Consult (Vocal cord dysfunction) 07/20/2024 Travel 07/14/2024 Refill [facility] [address] [place] [address] Geronimo Lamb MD Refill Request (Mucus Relief Er) 07/11/2024 Orders Only [facility] Scanner 1 scan: (1-Ord) [facility], MULTIPLE LAB RESULTS, 07/11/2024 07/11/2024 Orders Only [facility] Scanner 1 scan: (1-Ord) [facility], XR CHEST 2V, 07/11/2024 from Last 3 Months Immunizations Immunization Administration Dates Next Due COVID-19 VACCINE SPIKEVAX (M ODERNA 50MCG/0.5ML) 12YO+ PFS 03/19/2023 COVID-19 vaccine (Pfizer-Bio NTech 30mcg/0.3mL) 12YO+ BIVALENT PF, MDV 05/01/2022 COVID-19 vaccine (PopsBio NTech 30mcg/0.3mL) 12YO+ VAL-SUCROSE PF, MDV 08/29/2021 [...] on file Legal Sex Female 6:31 AM DESIGN/ANIMATION INSTRUCTOR Gender Identity Not on file Sexual Orientation [...] Description 10/27/2024 1:30 PM CDT Office Visit [facility] [address] [place] [address] Paolo Limon MD [address] [place] [address] 11/01/2024 2:55 PM CDT Office Visit [facility] [address] [place] [address] Geronimo Lamb MD [address] [place] [address] Health Maintenance Due Date Last Done Comments [...] 12:00 AM CDT SCAN-CT INTERPRETATION 12:00 AM DESIGN/ANIMATION INSTRUCTOR SCAN-RADIOLOGY REPORT 07/30/2024 12:00 AM DESIGN/ANIMATION INSTRUCTOR SCAN-RADIOLOGY REPORT 07/27/2024 12:00 AM DESIGN/ANIMATION INSTRUCTOR ECHO TTE COMPLETE W CONTRAST Routine 07/24/2024 3:13 PM DESIGN/ANIMATION INSTRUCTOR Chest pain SCAN-CT INTERPRETATION 12:00 AM DESIGN/ANIMATION INSTRUCTOR SCAN-RADIOLOGY REPORT 07/23/2024 12:00 AM DESIGN/ANIMATION INSTRUCTOR SCAN-LABORATORY REPORT 12:00 AM DESIGN/ANIMATION INSTRUCTOR SCAN-RADIOLOGY REPORT 07/11/2024 12:00 AM DESIGN/ANIMATION INSTRUCTOR LIPID PANEL W REFLEX MEASURED LDL Routine 01/20/2024 4:00 PM CDT Hyperlipidemia, unspecified hyperlipidemia type ANTI HIV 1/2 Routine 05/01/2022 4:36 PM DESIGN/ANIMATION INSTRUCTOR Encounter for screening for HIV ANTI HCV Routine 12/05/2021 9:30 AM CDT Need for hepatitis C screening test SCAN-MAMMOGRAPHY REPORT 02/24/2019 12:00 AM CDT from Last 3 Months or Most Recently Relevant to Health Maintenance Results * POCT Urinalysis Dipstick Only [[id number]] (09/30/2024 1:51 PM CDT) PH 7.0 5.0 - 8.0 [facility] SPECIFIC GRAVITY 1.015 1.001 - 1.035 [facility] GLUCOSE NEGATIVE NEGATIVE [facility] BILIRUBIN NEGATIVE NEGATIVE [facility] KETONES NEGATIVE NEGATIVE [facility] OCCULT BLOOD NEGATIVE NEGATIVE [facility] PROTEIN NEGATIVE NEGATIVE [facility] NITRITE NEGATIVE NEGATIVE [facility] LEUKOCYTE ESTERASE NEGATIVE NEGATIVE [facility] Urine URINE SPECIMEN / Unknown 09/30/2024 1:51 PM CDT 09/30/2024 1:51 PM CDT us Geronimo Lamb MD URINE Final Result [facility] [address] [place] [address], [facility] [address] [place] [address] * URINALYSIS MICROSCOPIC [29903.1] - routine (09/30/2024 12:10 PM CDT) RBC 0-2 0-2, None Seen /HPF 09/30/2024 11:02 PM CDT [facility] WBC 0-2 0-2, 3-5, None Seen /HPF 09/30/2024 11:02 PM CDT [facility] BACTERIA None Seen None Seen, Rare, Few Bacteria/ HPF 09/30/2024 11:02 PM CDT [facility] EPITHELIAL CELLS None Seen None Seen, Few Epi/HPF 09/30/2024 11:02 PM CDT [facility] HYALINE CASTS 0-2 0-2, 3-5 /LPF 09/30/2024 11:02 PM CDT [facility] Urine URINE SPECIMEN / Unknown Non-Blood / Unknown 09/30/2024 12:10 PM CDT 09/30/2024 1:50 PM CDT us Geronimo Lamb MD URINE Final Result [facility] [address] [place] [address], * URINE CULTURE [81065.2] (09/30/2024 12:10 PM CDT) Pathologist [facility] CULTURE <10,000 CFU/mL multiple organisms 10/02/2024 3:34 PM CDT [facility] Urine URINE SPECIMEN / Unknown Non-Blood / Unknown 09/30/2024 12:10 PM CDT 09/30/2024 1:50 PM CDT us Geronimo Lamb MD MICROBIOLOGY Final Result Performing Organization Address City/[facility]/ZIP Co de Phone Number [facility] [address] [place] [address], * COVID-19 MOLECULAR (08/28/2024 11:48 PM CDT) Pathologist [facility] COVID 19 ALLINA MOLECULAR Not detected Not detected 08/29/2024 12:19 AM CDT [facility] 08/29/2024 12:19 AM CDT [facility] Comment:Specimen submitted t o [facility] for testing. Other SPECIMEN FROM NASOPHARYNGEAL STRUCTURE / Unknown Non-Blood / Unknown 08/28/2024 11:48 PM CDT 08/28/2024 11:57 PM CDT us Ryan Hyde MD MICROBIOLOGY Final Result Performing Organization Address City/[facility]/ZIP Co de Phone Number [facility] [address] [place] [phone] * INFLUENZA A/B PCR (08/28/2024 11:48 PM CDT) Pathologist [facility] INFLUENZA A PCR NOT Detected 08/29/2024 12:19 AM CDT [facility] INFLUENZA B PCR NOT Detected 08/29/2024 12:19 AM CDT [facility] Other SPECIMEN FROM NASOPHARYNGEAL STRUCTURE / Unknown Non-Blood / Unknown 08/28/2024 11:48 PM CDT 08/28/2024 11:57 PM CDT us Ryan Hyde MD MICROBIOLOGY Final Result Performing Organization Address [facility] Co de Phone Number [facility] [address] [place] [address] * EKG 12 LEAD (08/28/2024 11:13 PM CDT) Only the most recent of3 resultswithin the time period is included. Pathologist [facility] Interpretation Normal sinus rhythm Low voltage QRS Borderline ECG When compared with ECG of 19-Aug-2024 03:24, No significant change was found [facility]YOND NOW Ventricular Rate 93 BPM BEYOND NOW Atrial Rate 93 BPM [facility] NOW P-R Interval 138 ms BEYOND NOW QRS Duration 70 ms BEYOND NOW QT 374 ms [facility] NOW QTc 465 ms BEYOND NOW P [place] 67 degrees BEYOND NOW R [place] -9 degrees BEYOND NOW T [place] 20 degrees BEYOND NOW 08/28/2024 11:1 3 PM CDT 08/29/2024 2:07 AM CDT us Ryan Hyde MD EKG ORD Final Result Performing Organization Address [facility] de Phone Number BEYOND NOW [place], [place] * (ABNORMAL) CBC WITH AUTO DIFFERENTIAL (08/28/2024 11:07 PM CDT) Only the most recent of2 resultswithin the time period is included. [facility] WHITE BLOOD COUNT 9.0 4.5 - 11.0 thou/cu mm 08/28/2024 11:14 PM CDT [facility] RED BLOOD COUNT 3.97(L) 4.00 - 5.20 mil/cu mm 08/28/2024 11:14 PM CDT [facility] HEMOGLOBIN 11.4(L) 12.0 - 16.0 g/dL 08/28/2024 11:14 PM CDT [facility] HEMATOCRIT 37.5 33.0 - 51.0 % 08/28/2024 11:14 PM CDT [facility] MCV 95 80 - 100 fL 08/28/2024 11:14 PM CDT [facility] MCH 28.7 26.0 - 34.0 pg 08/28/2024 11:14 PM [facility] MCHC 30.4(L) 32.0 - 36.0 g/dL 08/28/2024 11:14 PM [facility] RDW 14.6 11.5 - 15.5 % 08/28/2024 11:14 PM [facility] PLATELET COUNT 243 140 - 440 thou/cu mm 08/28/2024 11:14 PM [facility] MPV 9.2 6.5 - 11.0 fL 08/28/2024 11:14 PM [facility] % NEUT 74.2 % 08/28/2024 11:14 PM [facility] % LYMPH 17.8 % 08/28/2024 11:14 PM [facility] % MONO 5.1 % 08/28/2024 11:14 PM [facility] % EOS 2.3 % 08/28/2024 11:14 PM [facility] % BASO 0.6 % 08/28/2024 11:14 PM [facility] ABSOLUTE NEUTROPHILS 6.7 1.7 - 7.0 thou/cu mm 08/28/2024 11:14 PM [facility] ABSOLUTE LYMPHOCYTES 1.6 0.9 - 2.9 thou/cu mm 08/28/2024 11:14 PM [facility] ABSOLUTE MONOCYTES 0.5 <0.9 thou/cu mm 08/28/2024 11:14 PM [facility] ABSOLUTE EOSINOPHILS 0.2 <0.5 thou/cu mm 08/28/2024 11:14 PM [facility] ABSOLUTE BASOPHILS 0.1 <0.3 thou/cu mm 08/28/2024 11:14 PM [facility] Blood BLOOD SPECIMEN / Unknown Venipuncture / Unknown 08/28/2024 11:07 PM CDT 08/28/2024 11:10 PM T Ryan Hyde MD HEMATOLOGY Final Result Performing Organization Address [facility] Co de Phone Number [facility] [address] [place] [address] * (ABNORMAL) BLOOD GAS,VENOUS (08/28/2024 11:07 PM CDT) Only the most recent of8 resultswithin the time period is included. PH, VENOUS 7.42 7.32 - 7.43 08/28/2024 11:36 PM T [facility] PCO2, VENOUS 63(H) 41 - 51 mmHg 08/28/2024 11:36 PM [facility] PO2, VENOUS 67(H) 35 - 40 mmHg 08/28/2024 11:36 PM [facility] HCO3,VENOUS 41(H) 22 - 29 mmol/L 08/28/2024 11:36 PM T [facility] BASE EXCESS, VENOUS, POCT 13.5(H) -2.0 - 3.0 08/28/2024 11:36 PM [facility] O2 SATURATION, VENOUS 95(H) 70 - 75 % 08/28/2024 11:36 PM [facility] PATIENT TEMPERATURE 37.0 Degrees C 08/28/2024 11:36 PM [facility] Blood BLOOD SPECIMEN / Unknown Venipuncture / Unknown 08/28/2024 11:07 PM CDT 08/28/2024 11:10 PM CDT Ryan Hyde MD CHEMISTRY Final Result Performing Organization Address [facility]/ZIP Co de Phone Number [facility] [address] [place] [address] * (ABNORMAL) BASIC METABOLIC PANEL (08/28/2024 11:07 PM CDT) Only the most recent of7 resultswithin the time period is included. SODIUM 139 136 - 145 mmol/L 08/28/2024 11:29 PM T [facility] POTASSIUM 3.9 3.5 - 5.1 mmol/L 08/28/2024 11:29 PM [facility] CHLORIDE 95(L) 98 - 107 mmol/L 08/28/2024 11:29 PM [facility] CO2,TOTAL 34(H) 22 - 29 mmol/L 08/28/2024 11:29 PM [facility] ANION GAP 10 5 - 18 08/28/2024 11:29 PM [facility] GLUCOSE 119(H) 70 - 99 mg/dL 08/28/2024 11:29 PM [facility] CALCIUM 9.7 8.8 - 10.4 mg/dL 08/28/2024 11:29 PM [facility] Comment: Reference ranges for this test were updated on 03/30/2024 to reflect our healthy population more accurately. Reference range changes are not retroactively applied to results, but previous results using the same methodology can be interpreted in the context of the new reference range. BUN 17 6 - 20 mg/dL 08/28/2024 11:29 PM [facility] CREATININE 0.72 0.50 - 0.90 mg/dL 08/28/2024 11:29 PM [facility] BUN/CREAT RATIO 24(H) 10 - 20 11:29 PM [facility] eGFR >90 >90 mL/min/1. 73m2 08/28/2024 11:29 PM [facility] Comment:As of 2021, eG FR [...] us Ryan Hyde MD CHEMISTRY Final Result [facility] [address] [place] [address] * XR CHEST 1 VIEW PORTABLE (08/28/2024 [...] - 5.1 mmol/L 08/24/2024 12:13 PM CDT [facility] Blood BLOOD SPECIMEN / Unknown Non-Lab Venipuncture / Unknown 08/24/2024 11:42 AM CDT 08/24/2024 11:48 AM CDT Sam Mancini MD CHEMISTRY Final Re sult Performing Organization Address City/[facility] Co de Phone Number [facility] [address] [place] [address], [place] * Creatinine TODAY (08/24/2024 11:42 AM CDT) Only the most recent of5 resultswithin the time period is included. eGFR >90 >90 mL/min/1.7 3m2 08/24/2024 12:46 PM CDT [facility] Comment:As of 2021, eG FR is calculated by the CKD-EPI creatinine equation without race adjustment. eGFR can be influenced by muscle mass, exercise, and diet. The reported eGFR is an estimation only and is only applicable if the renal function is stable. CREATININE 0.70 0.50 - 0.90 mg/dL 08/24/2024 12:46 PM CDT [facility] Blood BLOOD SPECIMEN / Unknown Non-Lab Venipuncture / Unknown 08/24/2024 11:42 AM CDT 08/24/2024 11:48 AM CDT Sam Mancini MD CHEMISTRY Final Re sult Performing Organization Address City/[facility]/ZIP Co de Phone Number [facility] [address] [place] [address], * (ABNORMAL) HEMOGLOBIN (08/23/2024 6:42 AM CDT) HEMOGLOBIN 10.3(L) 12.0 - 16.0 g/dL 08/23/2024 6:56 AM CDT [facility] MCV 95 80 - 100 fL 08/23/2024 6:56 AM CDT [facility] Blood BLOOD SPECIMEN / Unknown Venipuncture / Unknown 08/23/2024 6:42 AM CDT 08/23/2024 6:47 AM CDT Batool Sebastian MD HEMATOLOGY Final Result Performing Organization Address City/[facility]/ZIP Co de Phone Number [facility] [address] [place] [address], [place] * SODIUM (08/23/2024 6:42 AM CDT) Only the most recent of5 resultswithin the time period is included. SODIUM 143 136 - 145 mmol/L 08/23/2024 7:17 AM CDT [facility] Blood BLOOD SPECIMEN / Unknown Venipuncture / Unknown 08/23/2024 6:42 AM CDT 08/23/2024 6:48 AM CDT Batool Sebastian MD CHEMISTRY Final Result Performing Organization Address City/[facility] Co de Phone Number [facility] [address] [place] [address], [place] * (ABNORMAL) Pro Brain natriuretic peptide AM (08/23/2024 6:42 AM CDT) PRO-BNP 130(H) <125 pg/mL 08/23/2024 3:23 PM CDT [facility] Blood BLOOD SPECIMEN / Unknown Venipuncture / Unknown 08/23/2024 6:42 AM CDT 08/23/2024 6:48 AM CDT Narrative [facility] - 08/23/2024 3:23 PM CDT The [...] of 72% for acute congestive heart failure. Sma Mancini MD SEND OUTS Final Re sult Performing Organization Address City/[facility] Co de Phone Number [facility] [address] [address], [place] * MAGNESIUM (08/20/2024 6:34 AM CDT) Only the most recent of14 resultswithin the time period is included. MAGNESIUM 1.7 1.6 - 2.6 mg/dL 08/20/2024 7:28 AM CDT [facility] Blood BLOOD SPECIMEN / Unknown Venipuncture / Unknown 08/20/2024 6:34 AM CDT 08/20/2024 7:00 AM CDT Batool Sebastian MD CHEMISTRY Final Result Performing Organization Address [facility] Co de Phone Number [facility] [address] [address], [place] * (ABNORMAL) Electrolyte panel AM (08/18/2024 7:20 AM CDT) Only the most recent of2 resultswithin the time period is included. SODIUM 140 136 - 145 mmol/L 08/18/2024 8:35 AM CDT [facility] POTASSIUM 4.1 3.5 - 5.1 mmol/L 08/18/2024 8:35 AM CDT [facility] CHLORIDE 96(L) 98 - 107 mmol/L 08/18/2024 8:35 AM CDT [facility] CO2,TOTAL 37(H) 22 - 29 mmol/L 08/18/2024 8:35 AM CDT [facility] ANION GAP 7 5 - 18 08/18/2024 8:35 AM CDT [facility] Blood BLOOD SPECIMEN / Unknown Butterfly / Unknown 08/18/2024 7:20 AM CDT 08/18/2024 8:06 AM CDT us Batool Sebastian MD CHEMISTRY Final Result Performing Organization Address City/[facility]/ZIP Co de Phone Number [facility] [address] [place] [address], [place] * (ABNORMAL) GLUCOSE METER (08/17/2024 7:31 AM CDT) Only the most recent of41 resultswithin the time period is included. GLUCOSE METER 118(H) 65 - 100 mg/dL 08/17/2024 7:32 AM CDT [facility] Blood BLOOD SPECIMEN / Unknown 08/17/2024 7:31 AM CDT 08/17/2024 7:32 AM CDT us Batool Sebastian MD CHEMISTRY Final Result [facility] [address] [place] [address], [place] * SCAN-CARDIAC STRIP (08/12/2024 7:41 PM [...] 11.0 thou/cu mm 08/09/2024 5:20 AM CDT [facility] RED BLOOD COUNT 3.58(L) 4.00 - 5.20 mil/cu mm 08/09/2024 5:20 AM CDT [facility] HEMOGLOBIN 10.5(L) 12.0 - 16.0 g/dL 08/09/2024 5:20 AM CDT [facility] HEMATOCRIT 35.4 33.0 - 51.0 % 08/09/2024 5:20 AM CDT [facility] MCV 99 80 - 100 fL 08/09/2024 5:20 AM CDT [facility] MCH 29.3 26.0 - 34.0 pg 08/09/2024 5:20 AM CDT [facility] MCHC 29.7(L) 32.0 - 36.0 g/dL 08/09/2024 5:20 AM CDT [facility] RDW 14.6 11.5 - 15.5 % 08/09/2024 5:20 AM CDT [facility] PLATELET COUNT 201 140 - 440 thou/cu mm 08/09/2024 5:20 AM CDT [facility] MPV 9.6 6.5 - 11.0 fL 08/09/2024 5:20 AM CDT [facility] NRBC 0.0 % 08/09/2024 5:20 AM CDT [facility] ABS NRBC 0.0 thou /cu mm 08/09/2024 5:20 AM CDT [facility] Blood BLOOD SPECIMEN / Unknown Butterfly / Unknown 08/09/2024 5:01 AM CDT 08/09/2024 5:15 AM CDT us Rowdy Richardson MD HEMATOLOGY Kenia l Result [facility] [address] [place] [address], * SCAN-CARDIAC STRIP (08/08/2024 11:26 PM CDT) us Scanner OTHER Final Result * SCAN-CARDIAC STRIP (08/08/2024 9:35 AM CDT) us Scanner OTHER Final Result * (ABNORMAL) ARTERIAL BLOOD GAS (08/08/2024 4:31 AM CDT) Only the most recent of2 resultswithin the time period is included. PH, ARTERIAL 7.36 7.35 - 7.45 08/08/2024 4:54 AM CDT [facility] PCO2, ARTERIAL 92(HH) 32 - 45 mmHg 08/08/2024 4:54 AM CDT [facility] PO2, ARTERIAL 106 83 - 108 mmHg 08/08/2024 4:54 AM CDT [facility] HCO3, ARTERIAL 52(H) 21 - 28 mmol/L 08/08/2024 4:54 AM CDT [facility] BASE EXCESS, ARTERIAL 21.1(H) -2.0 - 3.0 08/08/2024 4:54 AM CDT [facility] O2 SATURATION, ARTERIAL 100(H) 94 - 98 % 08/08/2024 4:54 AM CDT [facility] INSPIRED O2 50 08/08/2024 4:54 AM CDT [facility] Comment:Unit of Measure: Lit ers (L) if <=20; Percent (%) if >20 PATIENT TEMPERATURE 37.0 Degrees C 08/08/2024 4:54 AM CDT [facility] Blood ARTERIAL BLOOD SPECIMEN / Unknown Non-Lab Venipuncture / Unknown 08/08/2024 4:31 AM CDT 08/08/2024 4:40 AM CDT us Rowdy Richardson MD CHEMISTRY Kenia l Result [facility] [address] [place] [address], * SCAN-CARDIAC STRIP (08/07/2024 11:11 PM CDT) us Scanner OTHER Final Result * SCAN-CARDIAC STRIP (08/07/2024 11:11 PM CDT) us Scanner OTHER Final Result * SCAN-CARDIAC STRIP (08/07/2024 2:32 PM CDT) us Scanner OTHER Final Result * Urinalysis W Reflex Microscopic if Positive (08/07/2024 1:25 PM CDT) COLOR Yellow Yellow Color 08/07/2024 1:47 PM CDT [facility] CLARITY Clear Clear Clarity 08/07/2024 1:47 PM CDT [facility] SPECIFIC GRAVITY,URINE 1.010 1.010, 1.015, 1.020, 1.025 08/07/2024 1:47 PM CDT [facility] PH,URINE 6.5 6.0, 7.0, 8.0, 5.5, 6.5, 7.5, 8.5 08/07/2024 1:47 PM CDT [facility] UROBILINOGEN, QUALITATIVE Normal Normal EU/dl 08/07/2024 1:47 PM CDT [facility] PROTEIN, URINE Negative Negative mg/dL 08/07/2024 1:47 PM CDT [facility] GLUCOSE, URINE Negative Negative mg/dL 08/07/2024 1:47 PM CDT [facility] KETONES,URINE Negative Negative mg/dL 08/07/2024 1:47 PM CDT [facility] BILIRUBIN,URI NE Negative Negative 08/07/2024 1:47 PM CDT [facility] OCCULT BLOOD,URINE Negative Negative 08/07/2024 1:47 PM CDT [facility] NITRITE Negative Negative 08/07/2024 1:47 PM CDT [facility] LEUKOCYTE ESTERASE Negative Negative 08/07/2024 1:47 PM CDT [facility] Urine URINE SPECIMEN / Unknown Non-Blood / Unknown 08/07/2024 1:25 PM CDT 08/07/2024 1:32 PM CDT Melissa Reeves MD URINE Final Result Performing Organization Address [facility]/ZIP Co de Phone Number [facility] [address] [place] [address], [place] * (ABNORMAL) RED CELL MORPHOLOGY (08/07/2024 1:01 PM CDT) POLYCHROMASIA Slight 08/07/2024 1:38 PM CDT [facility] RBC COMMENT Present(A) RBC morphology appears normal, RBC morphology within normal limits for newborns. 08/07/2024 1:38 PM CDT [facility] Blood BLOOD SPECIMEN / Unknown Venipuncture / Unknown 08/07/2024 1:01 PM CDT 08/07/2024 1:07 PM CDT Melissa Reeves MD HEMATOLOGY Final Result Performing Organization Address [facility] Co de Phone Number [facility] [address] [place] [address], [place] * (ABNORMAL) Hepatic Function Panel (08/07/2024 1:01 PM CDT) Pathologist [facility] ALBUMIN 4.0 4.0 - 4.9 g/dL 08/07/2024 1:30 PM CDT [facility] PROTEIN,TOTAL 7.5 6.0 - 8.0 g/dL 08/07/2024 1:30 PM CDT [facility] BILIRUBIN,TOTAL 0.2 0.0 - 1.2 mg/dL 08/07/2024 1:30 PM CDT [facility] BILIRUBIN,DIRECT 0.1 0.0 - 0.2 mg/dL 08/07/2024 1:30 PM CDT [facility] BILIRUBIN,INDIRE CT 0.1(L) 0.2 - 0.8 mg/dL 08/07/2024 1:30 PM CDT [facility] ALK PHOSPHATASE 102 35 - 104 IU/L 08/07/2024 1:30 PM CDT [facility] ALT (SGPT) 32 10 - 35 IU/L 08/07/2024 1:30 PM CDT [facility] AST (SGOT) 21 10 - 35 IU/L 08/07/2024 1:30 PM CDT [facility] Blood BLOOD SPECIMEN / Unknown Venipuncture / Unknown 08/07/2024 1:01 PM CDT 08/07/2024 1:07 PM CDT us Melissa Reeves MD CHEMISTRY Final Result [facility] [address] [place] [address], [place] * SCAN-ULTRASOUND REPORT (08/05/2024 12:00 AM CDT) Anatomical Region Laterality Modality Other us Scanner OTHER Final Result * SCAN-CT INTERPRETATION (08/05/2024 12:00 AM CDT) Only the most recent of3 resultswithin the time period is included. Anatomical Region Laterality Modality Other us Scanner OTHER Final Result * SCAN-RADIOLOGY REPORT (07/30/2024 12:00 AM DESIGN/ANIMATION INSTRUCTOR) Only the most recent of4 resultswithin the time period is included. Anatomical Region Laterality Modality Other us Scanner OTHER Final Result * ECHO TTE COMPLETE W CONTRAST (07/24/2024 3:13 PM DESIGN/ANIMATION INSTRUCTOR) AORTIC VALVE MEAN PG 4 mmHg EJECTION FRACTION 64 % Anatomical Region Laterality Modality Ultrasound 07/24/2024 2:27 PM DESIGN/ANIMATION INSTRUCTOR Narrative 07/24/2024 4:14 PM DESIGN/ANIMATION INSTRUCTOR ECHOCARDIOGRAM TASHIA HAZEL : 1975 49 years Study Date: 07/24/2024 2:27:08 PM Gender: F BP: 131/77 mmHg Height: 145.00 cm BSA: 1.97 m Weight: 112.00 kg Tech: [facility] Referring MD: DERICK MENDIETA Site: [facility] Reading Location: Mobile IP [...] documentation: 2 ml diluted Definity, lot #[id number], [facility]# [id number] was administered peripherally to enhance visualization of all left ventricular segments. . This study was interpreted by an [facility] accredited facility. CC: HIM (med records) [facility], Med/Surg - IP [facility]. Final Procedure Note Armando Powell MD - 07/24/2024 ECHOCARDIOGRAM TASHIA HAZEL : 1975 49 years Study Date: 07/24/2024 2:27:08 PM Gender: F BP: 131/77 mmHg Height: 145.00 cm BSA: 1.97 m Weight: 112.00 kg Tech: [facility] Referring MD: DERICK MENDIETA Site: [facility] Reading Location: Mobile IP [...] documentation: 2 ml diluted Definity, lot #[id number], [facility]#[id number] was administered peripherally to enhance visualization of allleft ventricular segments. . This study was interpreted by an [facility] accredited facility. CC: HIM (med records) [facility], Med/Surg - IP [facility]. Final us Derick Mendieta MD ECHO ORD Final Resu lt * SCAN-LABORATORY REPORT (07/11/2024 12:00 AM DESIGN/ANIMATION INSTRUCTOR) us Scanner OTHER Final Result * (ABNORMAL) LIPID PANEL W REFLEX MEASURED LDL (01/20/2024 4:00 PM CDT) CHOLESTEROL,TOTAL 261(H) 100 - 199 mg/dL 01/21/2024 1:44 PM CDT [facility] Comment: Cholesterol, Total Reference Ranges Desirable <200 mg/dL Borderline 200-239 mg/dL High >=240 mg/dL TRIGLYCERIDES 252(H) <150 mg/dL 01/21/2024 1:44 PM CDT [facility] HDL CHOLESTEROL 50 >40 mg/dL 1:44 PM CDT [facility] NON-HDL CHOLESTEROL 211(H) <145 mg/dl 01/21/2024 1:44 PM CDT [facility] CHOL/HDL RATIO 5.22(H) <4.50 01/21/2024 1:44 PM CDT [facility] LDL CHOLESTEROL 161(H) <=130 mg/dL 01/21/2024 1:44 PM CDT [facility] VLDL CHOLESTEROL 50(H) <=30 mg/dL 01/21/2024 1:44 PM CDT [facility] PROVIDER ORDERED STATUS RANDOM 01/21/2024 1:44 PM CDT [facility] Blood BLOOD SPECIMEN / Unknown Venipuncture / Unknown 01/20/2024 4:00 PM CDT 01/20/2024 4:00 PM CDT Geronimo Lamb MD CHEMISTRY Final Result Performing Organization Address [facility]/ZIP Co de Phone Number [facility] [address] [place] [address], [place] * ANTI HIV 1/2 (05/01/2022 4:36 PM DESIGN/ANIMATION INSTRUCTOR) HIV-1/HIV-2 ANTIBODY Non-Reacti ve Non-Reacti ve 05/04/2022 9:59 PM DESIGN/ANIMATION INSTRUCTOR [facility] Comment:HIV-1 p24 and HIV-1/ HIV-2 Ab not detected. Blood BLOOD SPECIMEN / Unknown Butterfly / Unknown 05/01/2022 4:36 PM DESIGN/ANIMATION INSTRUCTOR 05/01/2022 4:41 PM DESIGN/ANIMATION INSTRUCTOR us Geronimo Lamb MD SEND OUTS Final Result Performing Organization Address [facility] Co de Phone Number [facility] [address] [place] [address], [place] * ANTI HCV (12/05/2021 9:30 AM CDT) HEPATITIS C ANTIBODY Non-React shikha Non-React shikha 12/05/2021 9:16 PM CDT [facility] Comment:Antibodies to HCV no t detected; does not exclude the possibility of exposure to HCV. Blood BLOOD SPECIMEN / Unknown Venipuncture / Unknown 12/05/2021 9:30 AM CDT 12/05/2021 9:33 AM CDT us Geronimo Lamb MD SEND OUTS Final Result Performing Organization Address City/[facility]/ZIP Co de Phone Number [facility] [address] [place] [address], * SCAN-MAMMOGRAPHY REPORT (02/24/2019 12:00 AM CDT) Anatomical Region Laterality Modality Other us Scanner OTHER Final Result from Last 3 Months or Most Recently Relevant to Health Maintenance Insurance [facility] MEDICARE PART A HB ONLY Advance Directives * Full Code (Latest Code Status on File) Date Activated Date Inactivated Comments 08/07/2024 12:43 PM 08/24/2024 8:35 PM Question Answer Comments Code Status Discussion: Reviewed Preferences * Full Code Date Activated Date Inactivated Comments 05/09/2024 10:07 PM 05/11/2024 4:49 PM Question Answer Comments Code Status Discussion: Reviewed Preferences Care Teams Table Inspector Relationship Specialty Start Date End Date Geronimo Lamb MD [address] [place] [address] PCP - General Family Practice 04/23/21 Paolo Limon MD Sleep Medicine 10/28/11 Talon Durham MD Neurology Neurology 11/26/11 Laura Gardner PsyD, [facility] Psychology 09/14/13 [place] [address] [facility] [place] [address] Pulmonology Pulmonary Medicine 01/22/24
--- OUTSIDE RECORDS SUMMARY | 2024-10-05 19:02 | XMS_ITS | Clinical Summary ---
Author Organization [facility] Address [address] , [address] [place] [address] Phone Care Team Providers Care Surveillance Analyst Name Role Phone Son Jara MD Conditions or Problems Problem Name Problem Code Onset Date Status Entry Date Provider Comment Standard Description Annotate Involuntary movements 316092741 (SNOMED CT) Active Son Jara MD Abnormal involuntary movement Tremor [id number] (SNOMED CT) Active Son Jara MD Tremor Medications Medication Instructions Start Date Stop Date Generic Name ND Provider SOLIFENACIN SUCCINATE 10 MG TABS Take 1 Tablet (10 mg) by mouth once daily. solifenacin (VESICARE) 10 mg tablet [id number] Son Jara MD PROCHLORPERAZINE MALEATE 5 MG TABS Take 1 Tablet (5 mg) by mouth every 8 hours if needed for Nausea/Vomitin g. prochlorperazine (COMPAZINE) 5 mg tablet [id number] Son Jara MD OMEPRAZOLE 20 MG CPDR Take 2 Capsules (40 mg) by mouth once daily before a meal. omeprazole (PriLOSEC) 20 mg Delayed-Release capsule [id number] Son Jara MD MONTELUKAST SODIUM 10 MG TABS Take 1 Tablet (10 mg) by mouth at bedtime. montelukast (SINGULAIR) 10 mg tablet [id number] Son Jara MD mirabegron EXTENDED-release (MYRBETRIQ) 50 mg tablet Take 1 Tablet (50 mg) by mouth once daily. mirabegron EXTENDED-release (MYRBETRIQ) 50 mg tablet Son Jara MD MECLIZINE HCL 25 MG TABS Take 0.5 Tablets (12.5 mg) by mouth 3 times daily if needed for Nausea/Vomitin g. meclizine (ANTIVERT) 25 mg tablet [id number] Son Jara MD LEVOTHYROXINE SODIUM 175 MCG TABS Take 1 Tablet (175 mcg) by mouth before breakfast. levothyroxine (SYNTHROID) 175 mcg tablet [id number] Son Jara MD FEXOFENADINE HCL 180 MG TABS Take 1 tablet by mouth once daily with a meal. fexofenadine (ROJAS) 180 mg tablet [id number] Son Jara MD DIPHENHYDRAMINE HCL 25 MG CAPS Take 1 capsule by mouth each time if needed. diphenhydrAMINE (BENADRYL) 25 mg capsule [id number] Son Jara MD VITAMIN D 50 MCG (2000 UT) TABS Take 2,000 units by mouth. cholecalciferol, Vitamin D3, 2,000 unit tablet [id number] Son Jara MD BUPROPION HCL ER (XL) 150 MG [id number] null buPROPion (WELLBUTRIN XL) 150 mg Extended-Release tablet [id number] Son Jara MD IPRATROPIUM-ALBUTE ROL 0.5-2.5 (3) MG/3ML SOLN Inhale 3 mL via a nebulizer 2 times daily if needed for Shortness of Breath 1st choice or Wheezing 1st choice. albuterol-ipratrop ium (DUONEB) (2.5-0.5 mg) in 3 mL NEBULIZA [id number] Son Jara MD ALBUTEROL SULFATE HFA 108 (90 Base) MCG/ACT AERS Inhale 1-2 Puffs by mouth every 4 hours if needed for Shortness of Breath 1st choice. albuterol HFA (ProAir HFA) 90 mcg/actuation inhaler [id number] Son Jara MD ALBUTEROL SULFATE (2.5 MG/3ML) 0.083% NEBU Inhale 3 mL via a nebulizer every 6 hours if needed for Shortness Of Breath or Wheezing. albuterol (PROVENTIL) 0.083 % neb solution [id number] Son Jara MD SYMBICORT 160-4.5 MCG/ACT AERO null Symbicort 160-4. 5 mcg/actuation (160-4.5 mcg each actuation) [id number] Son Jara MD PAROXETINE HCL 40 MG TABS null PARoxetine (PAXI L) 40 mg tablet [id number] Son Jara MD Medications Administered No information [...] Date ORDERS EEG Sleep Deprived (41min) 2 CPT-71614 EEG EXTENDED 41-60mins (END) [id number] Documentation of current medicatio ns ORDERS Patient Instructions Vital Signs No information available. Immunizations No information available. Advance Directives No information available.
--- OUTSIDE RECORDS SUMMARY | 2024-10-05 19:02 | XMS_ITS | Clinical Summary ---
Author Organization [facility] Address [address] [place] [address] Care Team Providers Care Coffee Sampler Name Role Phone Elsewhere, Pcp Primary Care Provider Unavailabl e Source Comments Patient records contain information from all sites at [facility]. For routine questions regarding patient records, call [phone] during business hours, M-F 8:00 AM - 5:00 PM Central Time. Record requests for emergency care only can be directed to [phone] at any time.[facility] Allergies Active Allergy Reactions Criticality Noted [...] Sex Assigned at Female 06/02/2018 2:11 PM POWERHOUSE LABORER Legal Sex Female 5:08 AM POWERHOUSE LABORER Gender Identity Female 06/02/2018 2:11 PM POWERHOUSE LABORER Sexual Orientation Choose not to disclose 2018 2:11 PM POWERHOUSE LABORER Last Filed Vital Signs Vital Sign Reading [...] this topic Medical Devices Implanted Type Area Window Maker Device Identifier Shelf Expiration Date Model / Serial / Lot Ear Implant- [id number] Implanted:11/24 (Quantity not on file) Ear Implant Ear [facility] Bernice Vega TORP Plasti-pore [id number] / / [id number] Description:[facility], [place], [place]. Ear implant-Vega TOPR Plasti-pore MRI Safe Procedures Procedure Name Priority Date/Time Associated Diagnosis Comments THYROID-STIMULATING HORMONE-SENSITIVE (S-TSH) Routine 10/27/2018 3:42 PM CDT Hypothyroidism Primary BASIC METABOLIC PANEL, S/P Routine 03/11/2018 1:58 PM CDT Dizziness Diplopia LIPID PANEL, S Routine 06/10/2016 10:40 AM POWERHOUSE LABORER from Last 3 Months or Most Recently Relevant to Health Maintenance Results * (ABNORMAL) S-TSH (Thyroid-Stimulating Hormone - Sensitive) (10/27/2018 3:42 PM CDT) TSH, Sensitive 10.7(H) 0.3 - 4.2 mIU/L 10/27/2018 5:20 PM CDT Comment: Biotin has been identified by the warning coordination meteorologist as a potential interfering substance. Higher concentrations of biotin may be found in multivitamins, hair/nail supplements, and workout supplements. If the result does not match clinical observations, repeat testing after patient refrains from the use of supplements for at least 12 hours. Blood (Blood, Venous) 10/27/2018 3:42 PM CDT 10/27/2018 3:43 PM CDT us Deanne Tsang P.A.-C. LAB BLOOD ADD-ON Final Result [facility] [address] [place] [address], [facility] * Basic Metabolic Panel (03/11/2018 1:58 PM CDT) Potassium, S 4.0 3.6 - 5.2 mmol/L 03/11/2018 2:29 PM CDT [facility] Sodium, S 141 135 - 145 mmol/L 03/11/2018 2:29 PM CDT [facility] Chloride, S 101 98 - 107 mmol/L 03/11/2018 2:29 PM CDT [facility] Bicarbonate, S 27 22 - 29 mmol/L 03/11/2018 2:29 PM CDT [facility] Anion Gap 13 7 - 15 03/11/2018 2:29 PM CDT [facility] BUN (Blood Urea Nitrogen), S 12 6 - 21 mg/dL 03/11/2018 2:29 PM CDT [facility] Creatinine 0.62 0.59 - 1.04 mg/dL 03/11/2018 2:29 PM CDT [facility] eGFR-Non Black/ >90 >=60 mL/min/BSA 03/11/2018 2:29 PM CDT [facility] Comment: ----ADDITIONAL INFORMATION---- Estimated GFR calculated using the 2009 CKD_EPI creatinine equation. eGFR-Black/Afri can Palestinian >90 >=60 mL/min/BSA 03/11/2018 2:29 PM CDT [facility] Comment: ----ADDITIONAL INFORMATION---- Estimated GFR calculated using the 2009 CKD_EPI creatinine equation. Calcium, Total, S 9.4 8.6 - 10.0 mg/dL 03/11/2018 2:29 PM CDT [facility] Glucose, S 95 70 - 140 mg/dL 03/11/2018 2:29 PM CDT [facility] Blood (Blood, Venous) 03/11/2018 1:58 PM CDT 03/11/2018 1:58 PM CDT Deanne Tsang P.A.-C. LAB BLOOD ADD-ON Final Result Performing Organization Address City/State/[facility] Co de Phone Number [facility] [address] * (ABNORMAL) Lipid Panel (06/10/2016 10:40 AM POWERHOUSE LABORER) [facility] Cholesterol, Total 275(H) <=199 MGDL POWERCHART [...] for FH and FDB is available through [employer]: FH/ADH Genetic Reflex Panel (test ADHP). Acquired (non-genetic) causes of markedly increased LDL cholesterol include cholestatic liver disease due to the presence of LpX. If a genetic form of hypercholesterolemia is suspected, family studies including biochemical testing for lipids (total cholesterol,triglycerides, LDL cholesterol and HDL cholesterol) are recommended. Please contact the laboratory at or the on-line test catalog at [employer] for information about how to order these tests or to speak with a genetic counselor. Further interpretation would require clinical information. Total Cholesterol/HDL Ratio 5 POWERCHART Blood 06/10/2016 10:4 0 AM POWERHOUSE LABORER us Ana Chery M.D. LAB BLOOD ADD-ON Final Re sult POWERCHART from Last 3 Months or Most Recently Relevant to Health Maintenance Insurance [facility] Care Teams Coffee Sampler Relationship Specialty Start Date End Date Elsewhere, Pcp PCP - General Internal Medicine 12/04/18
[2024-10-05] MEDS: IPRAT-ALBUT 0.5-2.5 MG/3 ML NEB 1 NEB IH (19:30)
[2024-10-05 19:36] LABS: HCO3 VBG 41 mmol/L (21-28); Lactate* 1.1 mmol/L (0.5-1.9); PCO2 VBG 60 mmHG (40-50); PO2 VBG 83.7 mmHG (25-47); pH VBG 7.449 (7.32-7.43)
[2024-10-05 19:43] LABS: Basophils Percent Auto 0.4 % (0.0-3.0); Eosinophils Percent Auto 4.1 % (0.0-7.0); Hematocrit 31.7 % (33.0-51.0); Hemoglobin* 9.7 gm/dL (12.0-16.0); Immature Granulocytes Pct Auto 0.5 %; Lymphocytes Percent Auto 11.1 % (20-44); Mean Corpuscular HGB Conc 31 gm/dL (32-36); Mean Corpuscular Hemoglobin 28 pg (26-34); Mean Corpuscular Volume 93 fL (80-100); Monocytes Percent Auto 5.9 % (0.0-11.0); Platelet Count* 258 K/uL (140-440); RDW Coefficient of Variation % 13.8 % (11.5-15.5); Red Blood Count 3.42 m/uL (4.00-5.20); White Blood Count* 12.85 K/uL (4.50-11.00)
[2024-10-05 19:45] LABS: Slide Review Reflex No
[2024-10-05 20:22] LABS: PCR FLU A Negative PCR FLU A (Negative); PCR FLU B Negative PCR FLU B (Negative); SARS PCR* Negative SARS-CoV-2 (Negative)
[2024-10-05 20:29] LABS: Chloride* 93 mmol/L (96-114); Sodium* 141 mmol/L (135-149)
[2024-10-05 20:32] LABS: Blood Urea Nitrogen* 13 mg/dL (5-24); Creatinine* 0.7 mg/dL (0.5-1.5); Est. Creatinine Clearance* 176.44; Estimated Glomerular Filt Rate 107 ml/min
[2024-10-05 20:33] LABS: Calcium* 8.4 mg/dL (8.4-10.6); Glucose* 106 mg/dL (60-115)
[2024-10-05 20:40] LABS: Anion Gap 8 mEq/L (7-15); Carbon Dioxide* 40 mmol/L (20-32); Potassium* 2.8 mmol/L (3.6-5.1)
[2024-10-05 20:51] LABS: Troponin I* < 0.01 ng/mL (0.01-0.04)
[2024-10-05] MEDS: POTASSIUM BICARB 25 MEQ EFFERVESCENT TAB PO ×2 (21:01→23:55)
[2024-10-05 21:17] LABS: NT Pro B Type NatriureticPept* 824 pg/mL
--- NOTE | 2024-10-05 21:33 | CRLHL7_ITS ---
For Patients: As a result of the Century Cures Act, medical imaging exams and procedure reports are released immediately into your electronic medical record. You may view this report before your referring provider. If you have questions, please contact your health care provider. INDICATION: Dyspnea, abnormal D-dimer. TECHNIQUE: CT chest PE was acquired with 95 cc Isovue 370 IV contrast. COMPARISON: Chest CT 08/05/2024. FINDINGS: Heart and vasculature: Contrast opacification of the pulmonary arterial tree is adequate. No sign of pulmonary embolism. Heart size is normal. Thoracic aorta and pulmonary artery are normal in caliber. Lungs and pleura: Patchy ground-glass opacities throughout the lungs. No pleural effusion or pneumothorax. No pleural effusions, pleural thickening, or pneumothorax. Lymph nodes/mediastinum: No mediastinal, hilar, or axillary adenopathy. Chest wall: No masses. Upper abdomen: Cholelithiasis. Bones: Unremarkable for age. IMPRESSION: 1. No pulmonary embolism. 2. Patchy ground-glass opacities throughout the lungs. Findings could represent mosaic attenuation in the setting of small airways or small vessels disease. Alternatively, a multilobar infectious/inflammatory process or pulmonary edema could appear similar. 3. Cholelithiasis. Please note that all CT scans at this facility use dose modulation, iterative reconstruction, and/or weight-based dosing when appropriate to reduce radiation dose to as low as reasonably achievable. Dictated by Fercho Head MD @ 10/05/2024 11:52:24 PM (Electronically Signed)
[2024-10-05] MEDS: FUROSEMIDE 10 MG/ML inj 40 MG IVP (23:55)
[2024-10-06] VITALS (13 sets, daily range): BP systolic 113–136; BP diastolic 72–94; PULSE 92–106; RESP 18–42; TEMP 35.8–37; O2SAT 88–95; BMI 50.1
--- NOTE | 2024-10-06 01:44 | W.PM.TELEH&P ---
Telehealth- H&P: HPI History of Present Illness Date Seen: 10/06/24 Chief complaint: SOB Narrative: Paloma Garcia is seen as an Interactive Telehealth visit. Paloma Garcia is a 49 year old female with a past medical history significant for morbid obesity, diastolic heart failure, obesity hypoventilation syndrome who presents to hospital with acute on chronic shortness of breath and lower extremity swelling. Patient was recently hospitalized for 2 weeks at [facility] where she was diuresed and treated for congestive heart failure. During that time she was placed on her BiPAP considerably and she made some improvement. She then was discharged to a nursing facility and then eventually back to her half-way/assisted living facility. Since being there only a few days, she has had worsening shortness of breath. She presents to the ER today with complaints of shortness of breath. At baseline, this patient requires 2 L of oxygen. But she was requiring 4 L when she presented to the ER. Apparently she was on Lasix but was prescribed 20 mg twice a day. There was some question whether or not she needs to continue this because of some very low potassium levels that the patient was describing. She had difficulty remembering the details of this. When I saw the patient she was in respiratory distress, she was having increased respiratory rate tachypnea. She was noted to have wheezing bilaterally. I reviewed the patient's labs. She had significant hypokalemia.. Chest x-ray showed no focal infiltrate. She underwent COVID influenza PCR which was negative. CT of her chest was completed due to an elevated D-dimer. There was no pulmonary embolism. There was however patchy groundglass opacities in the mosaic pattern. From my view, it appeared to be more likely congestive heart failure. She was given Lasix in the ER. Review of Systems Const: Reports: chills, change in weight and fatigue; Denies: fever ENMT: Denies: neck pain Cardio: Reports: chest pain, lightheadedness and shortness of breath with exertion Resp: Reports: shortness of breath GI: Reports: nausea and diarrhea; Denies: vomiting Musculo: Reports: joint swelling; Denies: back pain, neck pain or extremity pain Neuro: Reports: headache Endo: Reports: fatigue PFS PFS Medical History Heart failure with preserved ejection fraction ?I50.30 - Unspecified diastolic (congestive) heart failure (ICD-10) Vocal cord dysfunction ?J38.3 - Other diseases of vocal cords (ICD-10) Acute on chronic respiratory failure with hypoxia and hypercapnia ?J96.21 - Acute and chronic respiratory failure with hypoxia (ICD-10) ?J96.22 - Acute and chronic respiratory failure with hypercapnia (ICD-10) Hypercarbia ?R06.89 - Other abnormalities of breathing (ICD-10) Hypothyroidism ?E03.9 - Hypothyroidism, unspecified (ICD-10) Acute and chronic respiratory failure with hypoxia ?J96.21 - Acute and chronic respiratory failure with hypoxia (ICD-10) 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 - Unspecified convulsions (ICD-10) RODRICK (obstructive sleep apnea) ?G47.33 - Obstructive sleep apnea (adult) (pediatric) (ICD-10) ADHD ?F90.9 - Attention-deficit hyperactivity disorder, unspecified type (ICD-10) Hyperthyroidism ?E05.90 - Thyrotoxicosis, unspecified without thyrotoxic crisis or storm (ICD-10) Hydrocephalus ?G91.9 - Hydrocephalus, unspecified (ICD-10) Hyperlipidemia ?E78.5 - Hyperlipidemia, unspecified (ICD-10) Anxiety and depression ?F41.9 - Anxiety disorder, unspecified (ICD-10) ?F32.A - Depression, unspecified (ICD-10) Asthma ?J45.909 - Unspecified asthma, uncomplicated (ICD-10) Surgical History History of ear surgery ?Z98.890 - Other specified postprocedural states (ICD-10) History of strabismus surgery ?Z98.890 - Other specified postprocedural states (ICD-10) Social History Narrative: on disability since 2009; lives alone with her cat. nonsmoker, no drugs, no significant tobacco history adopted, her two adopted aunts are her family contacts. What is your current living situation?: I presently have a place to live Problems where you live: no known problems Problems where you live details: N/A In the past 12 months, utilities in danger of being shut off: no In past 12 months, lack of transportation kept you from medical appts, meetings, work, or getting things needed for daily living: no In the past 12 mos, have been you worried that your food would run out before you had money to buy more?: never true In the past 12 mos, the food you bought just didn't last and you didn't have money to buy more?: never true Highest level of school completed/degree received: Associate degree: academic program Smoking Status: Former smoker What tobacco products do you use: cigarettes Smoking quit date/years: <= 15 years ago Do you use any of these nicotine containing products: None Second hand tobacco smoke exposure: Yes How often do you have a drink containing alcohol: never How often do you have six or more drinks on one occasion: Never AUDIT-C Alcohol total score: 0 Non-prescribed substance use: denies use Caffeine: No How often does anyone, including family, friends and others, physically hurt you: never How often does anyone, including family, friends and others, insult or talk down to you: never How often does anyone, including family, friends and others, threaten you with harm: never How often does anyone, including family, friends and others, scream or curse at you: never service: No Meds Home Medications and Allergies Home Medications ?Medication ?Instructions ?Recorded ?Confirmed ?Type albuterol sulfate 90 mcg/actuation 1 - 2 puff inhalation Q4H PRN 11/30/21 08/06/24 History aerosol inhaler mirabegron 50 mg tablet,extended 50 mg PO DAILY 11/30/21 08/06/24 History release 24 hr (Myrbetriq) montelukast 10 mg tablet 10 mg PO HS 11/30/21 08/06/24 History levetiracetam 750 mg tablet 750 mg PO BID 11/25/22 08/06/24 History (Keppra) paroxetine HCl 40 mg tablet 40 mg PO DAILY 01/30/23 08/06/24 History budesonide-formoterol HFA 160 2 puff inhalation BID #1 g 02/02/23 08/06/24 Rx mcg-4.5 mcg/actuation aerosol inhaler (Symbicort) levothyroxine 100 mcg tablet 100 mcg PO DAILY 10/16/23 08/06/24 History famotidine 20 mg tablet 20 mg PO BID 07/23/24 08/06/24 History fluticasone propionate 50 2 spray intranasal DAILY 07/23/24 08/06/24 History mcg/actuation nasal spray,suspension furosemide 20 mg tablet 20 mg PO BID@08,12 07/23/24 08/06/24 History ipratropium 0.5 mg-albuterol 3 mg 1 ml inhalation TID 07/23/24 08/06/24 History (2.5 mg base)/3 mL nebulization soln mirtazapine 15 mg tablet 15 mg PO HS 07/23/24 08/06/24 History cholecalciferol (vitamin D3) 50 50 mcg PO DAILY 08/06/24 08/06/24 History mcg (2,000 unit) tablet guaifenesin 600 mg tablet, 600 mg PO BID PRN 08/06/24 08/06/24 History extended release 12 hr (Mucus Relief ER) omeprazole 40 mg capsule,delayed 40 mg PO DAILY 08/06/24 08/06/24 History release polyethylene glycol 3350 17 17 g PO DAILY PRN 08/06/24 08/06/24 History gram/dose oral powder potassium chloride 10 mEq 20 meq PO DAILY 08/06/24 08/06/24 History tablet,extended release(part/cryst) Allergies Allergy/AdvReac Type Severity Reaction Status Date / Time azithromycin Allergy Intermediate Bloody Verified 08/05/24 19:44 Stools latex Allergy Intermediate Rash Verified 08/05/24 19:44 oxycodone Allergy Intermediate Agitated Verified 08/05/24 19:44 scopolamine Allergy Intermediate Tremors Verified 08/05/24 19:44 basil Allergy Rash Verified 08/05/24 19:44 Exam Narrative Exam Narrative: Physical Exam GENERAL: ?vital signs reviewed, well developed and nourished, appears in resp distress HEENT: pupils are equal round and reactive to light, extraocular movements are grossly within normal limits and oral mucosa is moist. NECK: Supple without lymphadenopathy or thyromegaly according to nursing staff examination observation, mild tenderness on palpation HEART: Regular rate and rhythm without any rubs, murmurs, or gallops. LUNGS: poor oral airway entry, bilatearl wheezing ABDOMEN: Observation from nurse assisted exam, abdomen appears soft, nontender, and nondistended with Positive bowel sounds noted. EXTREMITIES: Strength and sensation is observed to be grossly within normal limits in the upper and lower extremities.? No focal strength deficit is observed. + edema SKIN:? Observed warm and dry with color normal Const Vital Signs, click to edit/add: Vital Signs - 24 hr 10/05/24 18:13 10/05/24 18:33 10/05/24 18:33 Temperature 98.1 F Pulse Rate 92 Pulse Rate [Pulse Oximeter] 83 Respiratory Rate Blood Pressure [Right Forearm] 122/68 Pulse Oximetry 92 92 95 Oxygen Delivery Method Nasal Cannula Nasal Cannula Oxygen Flow Rate 4 4 10/05/24 18:45 10/05/24 19:02 10/05/24 19:30 Temperature Pulse Rate 91 107 H 92 Pulse Rate [Pulse Oximeter] Respiratory Rate 16 9 L Blood Pressure [Right Forearm] Pulse Oximetry 94 88 95 Oxygen Delivery Method Oxygen Flow Rate 10/05/24 19:45 10/05/24 20:00 10/06/24 00:04 Temperature 98.6 F Pulse Rate 93 93 Pulse Rate [Pulse Oximeter] 106 H Respiratory Rate 18 22 Blood Pressure [Right Forearm] 136/85 Pulse Oximetry 96 96 95 Oxygen Delivery Method Nasal Cannula Oxygen Flow Rate 4 Common normals: oriented x3 General appearance: in distress; not comfortable HENIN Common normals: normocephalic Head and scalp: normocephalic Neuro Common normals: oriented x3 Hospitalist - H&P: Result Labs Labs: Short CBC 10/05/24 Range/Units 19:06 WBC 12.85 H (4.50-11.00) K/uL Hgb 9.7 L (12.0-16.0) gm/dL Hct 31.7 L (33.0-51.0) % Plt Count 258 (140-440) K/uL BMP 10/05/24 19:06 Sodium 141 Potassium 2.8 L* Chloride 93 L Carbon Dioxide 40 H BUN 13 Creatinine 0.7 Glucose 106 Calcium 8.4 Cardiac Enzymes 10/05/24 Range/Units 19:06 Troponin I < 0.01 (0.01-0.04) ng/mL Assessment and Plan Assessment and plan (1) Acute on chronic respiratory failure with hypoxia and hypercapnia: Problem comment: -acute on chronic recurrent in setting of acute pneumonia, history of severe persistent asthma, RODRICK/noncompliance with CPAP, obesity hypoventilation, HFpEF -VBG pH 7.382, pCO2 77-80 (prior to 07/20, baseline was in the 50s, current baseline 70s), PO2 60.5, HC03 45 -CTA chest shows [id number]-[id number] patchy bilateral ground-glass airspace opacities and scattered areas of consolidation may represent atypical infection -admission Mag 1.9, treated with improvement to 2.4 Status: Acute (2) Obesity hypoventilation syndrome: Status: Acute (3) Generalized weakness: Status: Acute (4) CHF (congestive heart failure): Status: Acute (5) Acute hypokalemia: Status: Acute (6) RODRICK (obstructive sleep apnea): Problem comment: -noncompliant with CPAP at home, some confusion regarding recommendations -had previously stated that she was not using this because she was being worked up for vocal cord dysfunction ([facility] ENT PA note reviewed; no mention of holding CPAP, treating with nasal steroids and Pepcid at HS); admits her PCP has told her to continue to use her CPAP despite this -educated by RT and care team regarding importance of compliance -likely needs expedited BIPAP studies -has follow-up appointment with pulmonology end of July Status: Chronic (7) Asthma exacerbation: Status: Inactive (8) Chest congestion: Problem comment: -due to acute RSV infection Status: Inactive (9) Heart failure with preserved ejection fraction: Problem comment: -chronic, may have mild exacerbation given weight gain (up 3-6kg from discharge on 07/30/24) and BNP up from 195 -> 412 -PCP note from June notes [possible pulmonary edema, in the context of HFpEF: Chest x-ray on July 04 described as showing central pulmonary vascular congestion, and another ER x-ray on the was suspicious for heart failure and mild volume overload. Most recent echo January 2023 technically limited but showed normal ejection fraction at 65%] -CT chest 08/05 notes enlarged main pulmonary artery, which may be seen in setting of pulmonary hypertension (no history of this, recent TTE reassuring per below) -was on home Furosemide dose (20mg BID), receiving IV Furosemide x1 prior to transfer to [facility] Echocardiogram 07/24/2024 Final Impressions: 1. Technically limited exam. 2. Normal LV function with EF of 64%. 3. Right ventricular cavity size is moderately enlarged, global systolic RV function is normal. 4. Echo contrast was administered to enhance visualization of all left ventricular segments. 5. The mitral valve is not well visualized, no mitral regurgitation. 6. The aortic valve is not well visualized, no stenosis and no regurgitation. Status: Inactive (10) Hypothyroidism: Problem comment: -continue levothyroxine, TSH 0.575 on 08/07/24 Status: Inactive (11) Physical deconditioning: Problem comment: -and morbid obesity, BMI 53 -PT/OT Status: Inactive (12) Psychogenic nonepileptic seizure: Status: Inactive Plan Clinically this patient appears to be fluid overloaded. This patient has acute on chronic respiratory failure with hypoxia and hypercapnia. This is multifactorial reasons. She has baseline COPD/asthma. She also was diagnosed with congestive heart failure. And then on top of that she has obesity hypoventilation syndrome. This makes it very complicated. She must use her BiPAP throughout the hospitalization at all times with exception to her eating. She states that she has been using her BiPAP at home consistently. Although in the past there has been some concerns of noncompliance. In regards to her congestive heart failure I have started her on a Lasix infusion. Will have urine monitor. Hypokalemia her potassium was 2.8. She will be on scheduled potassium chloride supplementation as well as an IV dose to get her above a certain amount. I anticipate her potassium will continue to drop as she is diuresed. I have placed on telemetry. Obesity Obstructive sleep apnea: Patient is on BiPAP at baseline. Possible asthma exacerbation: This is more likely related to the fluid status. However I will give her some Solu-Medrol as she is noted to be markedly wheezing. The wheezing is most likely related to cardiac wheeze however it is difficult to delineate. Telehealth Visit: Todays History and Physical is via interactive telehealth by Dr Ruiz La MD The Patient is located [facility] physician is located at [facility]. Nursing staff assisted in the patient's exam. The visit being done today meets criteria for a telehealth visit and the patient or patient's parent/guardian is aware the visit is a telehealth visit. Camera Start time 100 Camera End time 130 Telehealth: Statement Statement Telehealth Visit: Today's History and Physical is provided via interactive telehealth by Ruiz La MD.? Patient is located at [facility].? Provider is located at [facility].? Nursing staff assisted with the patient's exam. The visit being done today meets criteria for a telehealth visit and the patient or patient?s parent/guardian is aware the visit is a telehealth visit.
[2024-10-06] MEDS: 0.9 % SODIUM CHLORIDE 250 ml IV ×3 (02:10→10:20)
[2024-10-06] MEDS: POTASSIUM CHLORIDE 10 MEQ/100 ML PIGGYBACK 100 MEQ IVPB ×4 (02:23→06:00)
[2024-10-06] MEDS: METHYLPREDNISOLONE SOD SUCC 40 MG/ML IVP ×3 (02:33→20:41)
--- NOTE | 2024-10-06 05:13 | PC.NURSE ---
Pt slept on and off during night, tolerating home Bipap, 02 sats >86% during night with 4lpm O2 bled into bipap. denies N/V, acknowledges L chest pain, present on admission and states this is not new. purewick in place, 1200cc urine output during night. replacing potassium via IV, tolerating fair. able to assist with repositioning/turning, stood at bedside for weight, SOB with exertion and desats into low 80's with any sort of activity.
[2024-10-06 07:05] LABS: HCO3 VBG 40 mmol/L (21-28); PCO2 VBG 55 mmHG (40-50); PO2 VBG 54.7 mmHG (25-47); pH VBG 7.467 (7.32-7.43)
[2024-10-06 07:08] LABS: Basophils Percent Auto 0.2 % (0.0-3.0); Eosinophils Percent Auto 0.5 % (0.0-7.0); Hematocrit 35.2 % (33.0-51.0); Hemoglobin* 10.8 gm/dL (12.0-16.0); Immature Granulocytes Pct Auto 0.6 %; Lymphocytes Percent Auto 3.6 % (20-44); Mean Corpuscular HGB Conc 31 gm/dL (32-36); Mean Corpuscular Hemoglobin 29 pg (26-34); Mean Corpuscular Volume 93 fL (80-100); Monocytes Percent Auto 1.3 % (0.0-11.0); Neutrophils Percent Auto 93.8 % (42.0-72.0); Platelet Count* 289 K/uL (140-440); RDW Coefficient of Variation % 13.9 % (11.5-15.5); Red Blood Count 3.78 m/uL (4.00-5.20); White Blood Count* 14.88 K/uL (4.50-11.00)
[2024-10-06 07:12] LABS: Slide Review Reflex No
[2024-10-06 08:19] LABS: Chloride* 91 mmol/L (96-114)
[2024-10-06 08:20] LABS: Albumin* 4.3 g/dL (3.3-5.0); Potassium* 3.9 mmol/L (3.6-5.1); Sodium* 140 mmol/L (135-149)
[2024-10-06 08:22] LABS: Alanine Aminotransferase* 31 U/L (4-35); Anion Gap 10 mEq/L (7-15); Aspartate Amino Transferase* 31 U/L (12-35); Blood Urea Nitrogen* 13 mg/dL (5-24); Carbon Dioxide* 39 mmol/L (20-32); Creatinine* 0.7 mg/dL (0.5-1.5); Est. Creatinine Clearance* 168.97; Estimated Glomerular Filt Rate 107 ml/min
[2024-10-06 08:23] LABS: Alkaline Phosphatase* 113 U/L (40-150); Bilirubin Total* 0.8 mg/dL (0.1-1.5); Calcium* 8.7 mg/dL (8.4-10.6); Glucose* 155 mg/dL (60-115); Total Protein* 7.9 g/dL (6.0-8.3)
[2024-10-06] MEDS: IPRAT-ALBUT 0.5-2.5 MG/3 ML NEB 1 NEB IH ×3 (09:31→20:41)
[2024-10-06] MEDS: POTASSIUM CHLORIDE 10 MEQ CAPSULE ER 20 MEQ PO ×2 (09:35→20:42)
[2024-10-06] MEDS: LEVOTHYROXINE 100 MCG TABLET PO (09:36)
[2024-10-06] MEDS: OMEPRAZOLE 20 MG CAPSULE DR 40 MG PO (09:36)
[2024-10-06] MEDS: levETIRAcetam 500 MG TABLET 750 MG PO ×2 (09:37→20:42)
[2024-10-06] MEDS: PARoxetine 20 MG TABLET 40 MG PO (09:37)
[2024-10-06] MEDS: SODIUM CHLORIDE 0.9 % (FLUSH) 10 ML SYRINGE 5 ML IVF ×2 (09:38→18:09)
[2024-10-06] MEDS: ACETAMINOPHEN 325 MG TABLET 650 MG PO (10:07)
[2024-10-06] MEDS: FLUTICASONE PROPIONATE NASAL 2 SPRAY NOSTRIL-B (10:33)
[2024-10-06] MEDS: FUROSEMIDE 10 MG/ML inj 60 MG IVP ×2 (11:06→18:09)
--- NOTE | 2024-10-06 14:41 | RESP.RT ---
The patient's home PAP device was inspected and confirmed to be appropriate for use. The patient reports experiencing dyspnea upon exertion. Lung auscultation revealed diminished breath sounds accompanied by bilateral crackles. The patient is currently receiving a continuous intravenous infusion of Lasix. Assessment indicates patient is on supplemental oxygen at 4 liters per minute via nasal cannula at home.
--- NOTE | 2024-10-06 15:27 | PC.SOCIAL ---
Discharge Planning: SW met with patient to discuss services that she already has where she is staying and what supports she would like. Patient explains that she is at [facility] and that she doesn't feel the services are enough. Patient states that she does not remember the last time she had a shower and isn't able to do this on her own. Patient also reports that she has in home PT coming through [facility]. Patient explained that she has been missing meals due to her lack of strength to walk to the dining room. SW and patient discussed that she feels she needs a higher level of care, but is conflicted as she has a cat that she does not want to depart with as this cat has been with her for 13 years and through a lot of stressful events. Patient did state she feels she knows she needs to give the cat up so she can get more care. SW inquired about family service caseworker. Patient states that she has a [employer] outsole caser Cami that she is okay with family welfare social work professor reaching out to - [phone]. Patient also explains she has a financial payee that pays all of her bills. SW explained that she would call Cami to determine what she is working on towards long-term care. Patient expressed interest in [facility] [place]. REYNALDO called PEDRO Nieto at [facility] to determine what services patient receives and if [facility] would be able to take her back. Emilia states that patient is receiving [facility] services and has access to hygiene/bathing services but doesn't use them. Emilia states that residents have to come down to the joe and meals really aren't served in rooms. SW inquired about the ability to assist with the transition to higher levels of care. Emilia states that they assist with this, however, the patient had not said she wants this. REYNALDO inquired about transportation back to the facility. Emilia states that they have transportation on but limited transportation on Friday. Emilia also explains that if there are big medical changes, they can't accept patients on Fridays or s as there is no nursing. If a patient doesn't have changes, they can sometimes come back Friday but it would need to be prior to 1400. SW called patient's CM and left a voicemail requesting a call back. REYNALDO spoke with Cami about patient being hospitalized. SW inquired about additional bathing services and Cami explained that patient is aware that [facility] has these services, but patient often requests this during the hours they aren't available (after 1430) or only requests them when the staff she likes are on and so this causes some issues. Cami discussed that she would like to assist with LTC, however, patient has been back and forth on whether she wants to actually transition to LTC. Cami states that she is going to call patient and then will call SW back if she has questions. REYNALDO informed by PT that patient needs TCU. SW met with patient to discuss TCU stay. Patient was very hesitant about this as she is anxious about her cat being alone. Patient explained that during her last hospitalization she tried to get her cat shipped to her brother in [place], however, he couldn't take her. She then set up foster care for her cat with a woman who ended up being allergic so her cat was alone for a few days. While her cat was alone she would howl at night and other residents complained the cat was a nuisance so does not know how this would work this time. Patient expressed that if she could get assistance to meals then she feels she could go back to [facility] and then continue to work with [facility] until she could get there on her own. SW encouraged patient to call [facility] to see if they could provide these services. Patient asked that SW call with patient and her [employer] outsole caser. SW explained that this couldn't happen today, but if patient connected with her [employer] CM and set up a time for the morning, SW could assist. SW also encouraged patient to choose some places tonight where referrals for TCU could be sent if [facility] could not add the services she needs. Patient states she will do that and is thinking about the places in [place], [place], and [place] at this time. Patient states while she liked [facility], it was farther from her family who live in [place], [place], and [place]. SW called patient's CAD[employer] CM and left a voicemail explaining the recommendations from PT and patient's apprehension to leaving her cat.
--- NOTE | 2024-10-06 16:56 | PM.IMPN1 ---
Assessment and Plan Assessment and plan (1) Acute on chronic respiratory failure with hypoxia and hypercapnia: Problem comment: -acute on chronic recurrent in setting history of severe persistent asthma, RODRICK, obesity hypoventilation, HFpEF - suspect mostly due to heart failure exacerbation this admission -VBG improving -CTA chest shows Rhqy-vk-osxanums patchy bilateral ground-glass airspace opacities and scattered areas of consolidation may represent atypical infection Status: Acute (2) Heart failure with preserved ejection fraction: Problem comment: - acute on chronic HFpEF exacerbation - was on torsemide 10mg daily as outpatient - ECHO done in July of this year (See below). Do not need to repeat. - Clinical improvement and good UO on lasix drip. Transition to BID IV furosemide and may be able to transition to po diuretic tomorrow. Continue BiPAP as prescribed as outpatient. Echocardiogram 07/24/2024 Final Impressions: 1. Technically limited exam. 2. Normal LV function with EF of 64%. 3. Right ventricular cavity size is moderately enlarged, global systolic RV function is normal. 4. Echo contrast was administered to enhance visualization of all left ventricular segments. 5. The mitral valve is not well visualized, no mitral regurgitation. 6. The aortic valve is not well visualized, no stenosis and no regurgitation. Status: Acute (3) Asthma exacerbation: Problem comment: - improving with methylprednisolone. Able to take PO. Transition to oral prednisone. Status: Acute (4) Obesity hypoventilation syndrome: Status: Chronic (5) Generalized weakness: Problem comment: - PT and OT evaluation. - PT recommends SNF for rehab. Perhaps patient can go back to [facility]. Will have SW look into it. Status: Acute (6) Acute hypokalemia: Status: Resolved (7) RODRICK (obstructive sleep apnea): Problem comment: -h/o noncompliance with CPAP at home. Was recently started on home BiPAP and this was going well while at [facility]. -had previously stated that she was not using this because she was being worked up for vocal cord dysfunction ([facility] ENT PA note reviewed; no mention of holding CPAP, treating with nasal steroids and Pepcid at HS); admits her PCP has told her to continue to use her CPAP despite this Status: Chronic Subjective Time Seen by Provider: 08:12 Date Seen: 10/06/24 Interval history: Paloma is feeling mildly better today. Less SOB, decreased LE edema. She has had 1200cc urine out in 4 hours on the lasix drip. Exam Narrative: Exam Narrative: General: No acute distress. Awake, alert, oriented x3. No pallor. No jaundice. Morbidly obese. Pickwickian features. Oropharynx: Clear. Mucous membranes moist. Cardiovascular: Mildly tachycardic, regular. No murmurs, gallops, or rubs. Respiratory: Clear to auscultation bilaterally. No crackles or wheezes. Abdomen: Bowel sounds present. Soft, nondistended, nontender. Extremities: 1+ bilateral lower extremity pitting edema. Const: Vital Signs, click to edit/add: Vital Signs - 24 hr 10/05/24 18:13 10/05/24 18:33 10/05/24 18:33 Temperature 98.1 F Pulse Rate 92 Pulse Rate [Pulse Oximeter] 83 Respiratory Rate Blood Pressure [Ri ght Arm] Blood Pressure [Ri ght Forearm] 122/68 Pulse Oximetry 92 92 95 Oxygen Delivery Me thod Nasal Cannula Nasal Cannula Oxygen Flow Rate 4 4 10/05/24 18:45 10/05/24 19:02 10/05/24 19:30 Temperature Pulse Rate 91 107 H 92 Pulse Rate [Pulse Oximeter] Respiratory Rate 16 9 L Blood Pressure [Ri ght Arm] Blood Pressure [Ri ght Forearm] Pulse Oximetry 94 88 95 Oxygen Delivery Me thod Oxygen Flow Rate 10/05/24 19:45 10/05/24 20:00 10/06/24 00:04 Temperature 98.6 F Pulse Rate 93 93 Pulse Rate [Pulse Oximeter] 106 H Respiratory Rate 18 22 Blood Pressure [Ri ght Arm] Blood Pressure [Ri ght Forearm] 136/85 Pulse Oximetry 96 96 95 Oxygen Delivery Me thod Nasal Cannula Oxygen Flow Rate 4 10/06/24 01:20 10/06/24 01:20 10/06/24 03:00 Temperature 98.6 F Pulse Rate Pulse Rate [Pulse Oximeter] 102 H 104 H Respiratory Rate 42 H 36 H 28 H Blood Pressure [Ri ght Arm] 131/94 H 116/80 Blood Pressure [Ri ght Forearm] Pulse Oximetry 92 94 88 Oxygen Delivery Me thod Nasal Cannula Nasal Cannula BiPAP Oxygen Flow Rate 4 4 4 10/06/24 07:00 10/06/24 09:00 05/14/25 10:00 Temperature 97.4 F L Pulse Rate 106 H Pulse Rate [Pulse Oximeter] 105 H 105 H Respiratory Rate 24 24 Blood Pressure [Ri ght Arm] 120/85 Blood Pressure [Ri ght Forearm] Pulse Oximetry 93 Oxygen Delivery Me thod Nasal Cannula Oxygen Flow Rate 4 10/06/24 11:34 10/06/24 15:58 Temperature 96.5 F L 97.1 F L Pulse Rate Pulse Rate [Pulse Oximeter] 100 95 Respiratory Rate 18 18 Blood Pressure [Ri ght Arm] 113/72 131/86 Blood Pressure [Ri ght Forearm] Pulse Oximetry 90 89 Oxygen Delivery Me thod Room Air Room Air Oxygen Flow Rate Labs Labs: Laboratory Results - last 24 hr 10/05/24 10/05/24 10/06/24 19:06 19:10 07:00 WBC 12.85 H 14.88 H RBC 3.42 L 3.78 L Hgb 9.7 L 10.8 L Hct 31.7 L 35.2 MCV 93 93 MCH 28 29 MCHC 31 L 31 L RDW Coeff of Tomy 13.8 13.9 Plt Count 258 289 Neut % (Auto) 78.0 H 93.8 H Lymph % (Auto) 11.1 L 3.6 L [place] % (Auto) 5.9 1.3 Eos % (Auto) 4.1 0.5 Baso % (Auto) 0.4 0.2 Neut # (Auto) 10.00 H 14.00 H Lymph # (Auto) 1.40 0.50 L [place] # (Auto) 0.80 0.20 Eos # (Auto) 0.50 0.10 Baso # (Auto) 0.10 0.00 Abs Immat Gran (auto) 0.10 0.10 Imm/Tot Granulo (auto) 0.5 0.6 D-Dimer Quant (PE/DVT) 1.70 H VBG pH 7.449 H 7.467 H VBG pCO2 60 H 55 H VBG pO2 83.7 H 54.7 H VBG HCO3 41 H 40 H Sodium 141 140 Potassium 2.8 L* 3.9 Chloride 93 L 91 L Carbon Dioxide 40 H 39 H Anion Gap 8 10 BUN 13 13 Creatinine 0.7 0.7 Estimated Creat Clear 176.44 168.97 Estimated GFR 107 107 Glucose 106 155 H Lactate 1.1 Calcium 8.4 8.7 Total Bilirubin 0.8 AST 31 ALT 31 Alkaline Phosphatase 113 Troponin I < 0.01 NT-Pro-B Natriuret Pep 824 Total Protein 7.9 Albumin 4.3 SARS-CoV-2 (PCR) Negative SARS-CoV-2 Influenza Type A (PCR) Negative PCR FLU A Influenza Type B (PCR) Negative PCR FLU B
[2024-10-06] MEDS: MENTHOL 57 GM GEL 1 APPLIC TOPICAL (18:09)
--- NOTE | 2024-10-06 19:36 | PC.NURSE ---
End of shift-- Pleasant and cooperative, alert and oriented patient. VSS and pt is afebrile. SPO2 maintained >90% on bipap with bled in 2-4L O2 most of the day and >90% on 3-4L per n.c. this evening. Crackles and occasional expiratory wheezes auscultated in posterior right base of lungs, otherwise clear but diminished throughout. Telemetry shows NSR to sinus tach. BS+ x4, pt ate 100% of 2 meals today. External catheter is patent and draining. She was up to the chair with assist of 1 and tolerated it well. Report to PEDRO Christensen.
[2024-10-06] MEDS: ENOXAPARIN 40 MG/0.4 ML INJ SUBCUT (20:41)
[2024-10-06] MEDS: MIRTAZAPINE 15 MG TABLET PO (20:53)
[2024-10-07] VITALS (9 sets, daily range): BP systolic 110–133; BP diastolic 80–91; PULSE 89–107; RESP 18–20; TEMP 36.3–36.7; O2SAT 90–91
--- NOTE | 2024-10-07 06:44 | PC.NURSE ---
End of shift [id number]: A&O pleasant and cooperative. VSS. On home BIPAP throughout shift w/ 4L of oxygen bled into machine. Sats maintaining 88-91%. Denies pain. Expiatory wheezing heard on assessment. External catheter placed. Stood at bedside for weight. Denies cp or sob. Using call light appropriately.
[2024-10-07] MEDS: predniSONE 20 MG TABLET 40 MG PO (08:00)
[2024-10-07] MEDS: SODIUM CHLORIDE 0.9 % (FLUSH) 10 ML SYRINGE 5 ML IVF ×2 (08:00→21:24)
[2024-10-07] MEDS: FUROSEMIDE 10 MG/ML inj 60 MG IVP (08:01)
[2024-10-07] MEDS: PARoxetine 20 MG TABLET 40 MG PO (09:29)
[2024-10-07] MEDS: OMEPRAZOLE 20 MG CAPSULE DR 40 MG PO (09:29)
[2024-10-07] MEDS: FLUTICASONE PROPIONATE NASAL 2 SPRAY NOSTRIL-B (09:30)
[2024-10-07] MEDS: levETIRAcetam 500 MG TABLET 750 MG PO ×2 (09:30→21:22)
[2024-10-07] MEDS: POTASSIUM CHLORIDE 10 MEQ CAPSULE ER 20 MEQ PO ×2 (09:30→21:20)
[2024-10-07] MEDS: LEVOTHYROXINE 100 MCG TABLET PO (09:30)
[2024-10-07] MEDS: MENTHOL 57 GM GEL 1 APPLIC TOPICAL ×2 (09:31→21:24)
[2024-10-07] MEDS: IPRAT-ALBUT 0.5-2.5 MG/3 ML NEB 1 NEB IH ×3 (09:31→21:15)
[2024-10-07 12:41] LABS: Basophils Percent Auto 0.1 % (0.0-3.0); Hematocrit 35.6 % (33.0-51.0); Hemoglobin* 10.9 gm/dL (12.0-16.0); Immature Granulocytes Pct Auto 0.7 %; Lymphocytes Percent Auto 3.3 % (20-44); Mean Corpuscular HGB Conc 31 gm/dL (32-36); Mean Corpuscular Hemoglobin 29 pg (26-34); Mean Corpuscular Volume 93 fL (80-100); Monocytes Percent Auto 3.2 % (0.0-11.0); Neutrophils Percent Auto 92.7 % (42.0-72.0); Platelet Count* 352 K/uL (140-440); RDW Coefficient of Variation % 13.5 % (11.5-15.5); Red Blood Count 3.81 m/uL (4.00-5.20); White Blood Count* 19.09 K/uL (4.50-11.00)
[2024-10-07 12:43] LABS: Slide Review Reflex No
[2024-10-07 12:50] LABS: Chloride* 93 mmol/L (96-114); Sodium* 139 mmol/L (135-149)
[2024-10-07 12:51] LABS: Potassium* 3.9 mmol/L (3.6-5.1)
[2024-10-07 12:53] LABS: Blood Urea Nitrogen* 23 mg/dL (5-24); Creatinine* 0.7 mg/dL (0.5-1.5); Est. Creatinine Clearance* 171.14; Estimated Glomerular Filt Rate 107 ml/min
[2024-10-07 12:54] LABS: Anion Gap 10 mEq/L (7-15); Calcium* 9.5 mg/dL (8.4-10.6); Carbon Dioxide* 36 mmol/L (20-32)
[2024-10-07 12:57] LABS: Glucose* 392 mg/dL (60-115)
--- NOTE | 2024-10-07 13:21 | PM.IMPN1 ---
Assessment and Plan Assessment and plan (1) Acute on chronic respiratory failure with hypoxia and hypercapnia: Problem comment: -acute on chronic recurrent in setting history of severe persistent asthma, RODRICK, obesity hypoventilation, HFpEF - suspect mostly due to heart failure exacerbation this admission -VBG improving -CTA chest shows Kgnw-ms-wapuwbub patchy bilateral ground-glass airspace opacities and scattered areas of consolidation may represent atypical infection Stabilized. Will discharge with home BiPAP settings. Status: Acute (2) Heart failure with preserved ejection fraction: Problem comment: - acute on chronic HFpEF exacerbation - was on torsemide 10mg daily as outpatient - ECHO done in July of this year (See below). Do not need to repeat. - Clinical improvement and good UO on lasix drip. Transition to BID IV furosemide and may be able to transition to po diuretic tomorrow. Continue BiPAP as prescribed as outpatient. DC IV Lasix and start home torsemide. Anticipate discharge hopefully tomorrow. Echocardiogram 07/24/2024 Final Impressions: 1. Technically limited exam. 2. Normal LV function with EF of 64%. 3. Right ventricular cavity size is moderately enlarged, global systolic RV function is normal. 4. Echo contrast was administered to enhance visualization of all left ventricular segments. 5. The mitral valve is not well visualized, no mitral regurgitation. 6. The aortic valve is not well visualized, no stenosis and no regurgitation. Status: Acute (3) Asthma exacerbation: Problem comment: - improving with methylprednisolone. Able to take PO. Transition to oral prednisone - noted elevated WBC, monitor Status: Acute (4) Obesity hypoventilation syndrome: Problem comment: Chronic. Complicating above Status: Chronic (5) Generalized weakness: Problem comment: - PT and OT evaluation. - PT recommends SNF for rehab. Perhaps patient can go back to [facility]. Will have SW look into it. Goal is to return to [place]. PT and OT aware of goals as stated above. Possible discharge back to [place] tomorrow unless needs SNF placement. Status: Acute (6) Acute hypokalemia: Problem comment: Resolved. Continue daily oral replacement Status: Resolved (7) RODRICK (obstructive sleep apnea): Problem comment: -h/o noncompliance with CPAP at home. Was recently started on home BiPAP and this was going well while at [facility]. -had previously stated that she was not using this because she was being worked up for vocal cord dysfunction ([facility] ENT PA note reviewed; no mention of holding CPAP, treating with nasal steroids and Pepcid at ); admits her PCP has told her to continue to use her CPAP despite this Status: Chronic (8) Blood glucose elevated: Problem comment: - Most recent A1C 6.2 - on steroids again, covering with SSI - outpatient f/u for pre-diabetes Status: Acute Total Time Spent Total Time Spent: Today I spent 45 minutes seeing the patient, reviewing Expanse and [facility] notes/diagnostics, discussing the care plan with our care time that includes social work, PT/OT, pharmacy, RT, intermediate and documenting my impressions and plan in the medical record. Subjective Date Seen: 10/07/24 Interval history: Patient is seen sitting up in a chair today. Reports feeling better. Breathing has improved. Some mild congestion otherwise denies chest pain or tightness. Denies headache or dizziness. Remains afebrile. Tolerating orals without nausea vomiting. Patient is hopeful she can return to [place]. Her goals, as discussed with team members earlier this week, her to be able to walk from her room to the dining joe as well as to be able to shower unassisted. She tells me while she is able to walk the distance to the dining room, it does take her while as she takes frequent breaks. Unfortunately, this makes her late to meals. She is willing to work with staff to get there in a timely manner. Exam Narrative: Exam Narrative: PHYSICAL EXAM General: Pleasant, conversant, NAD HEENT: Normocephalic, atraumatic, sclera white, EOMI, oral mucosa moist Cardiovascular: RRR, S1S2. No pitting edema Pulmonary: Mildly diminished, no wheezes. No dyspnea on BiPAP Neurological: Alert, answering questions appropriately, cranial nerves intact, no focal findings Extremities: No gross joint deformity or swelling. AROMI. Neurovascularly intact Skin: Warm, dry. Const: Vital Signs, click to edit/add: Vital Signs - 24 hr 10/06/24 15:00 10/06/24 15:58 10/06/24 16:05 Temperature 97.1 F L Pulse Rate 92 Pulse Rate [Pulse Oximeter] 95 95 Respiratory Rate 18 18 Blood Pressure [Ri ght Arm] 131/86 Pulse Oximetry 89 Oxygen Delivery Me thod Room Air Oxygen Flow Rate 10/06/24 19:36 10/06/24 19:53 10/06/24 21:23 Temperature 97.6 F Pulse Rate Pulse Rate [Pulse Oximeter] 93 Respiratory Rate 20 Blood Pressure [Ri ght Arm] 118/75 Pulse Oximetry 91 93 89 Oxygen Delivery Me thod Nasal Cannula BiPAP BiPAP Oxygen Flow Rate 3.5 2 4 10/07/24 00:10 10/07/24 00:12 10/07/24 03:25 Temperature 98.0 F 97.3 F L Pulse Rate 92 Pulse Rate [Pulse Oximeter] 91 89 Respiratory Rate 20 20 Blood Pressure [Ri ght Arm] 129/83 118/83 Pulse Oximetry 91 Oxygen Delivery Me thod BiPAP BiPAP Oxygen Flow Rate 4 88 10/07/24 07:00 Temperature 97.8 F Pulse Rate Pulse Rate [Pulse Oximeter] 100 Respiratory Rate 18 Blood Pressure [Ri ght Arm] 122/88 Pulse Oximetry 91 Oxygen Delivery Me thod BiPAP Oxygen Flow Rate Labs Labs: Laboratory Results - last 24 hr 10/07/24 12:25 WBC 19.09 H RBC 3.81 L Hgb 10.9 L Hct 35.6 MCV 93 MCH 29 MCHC 31 L RDW Coeff of Tomy 13.5 Plt Count 352 Neut % (Auto) 92.7 H Lymph % (Auto) 3.3 L [place] % (Auto) 3.2 Eos % (Auto) 0.0 Baso % (Auto) 0.1 Neut # (Auto) 17.70 H Lymph # (Auto) 0.60 L [place] # (Auto) 0.60 Eos # (Auto) 0.00 Baso # (Auto) 0.00 Abs Immat Gran (auto) 0.10 Imm/Tot Granulo (auto) 0.7 Sodium 139 Potassium 3.9 Chloride 93 L Carbon Dioxide 36 H Anion Gap 10 BUN 23 Creatinine 0.7 Estimated Creat Clear 171.14 Estimated GFR 107 Glucose 392 H* Calcium 9.5
[2024-10-07] MEDS: INSULIN ASPART 100 UNIT/ML SUBCUT ×3 (13:39→21:19)
--- NOTE | 2024-10-07 13:47 | PC.SOCIAL ---
Addendum entered by ART Gotti 10/07/24 16:08: Discharge planning: [facility] already messaged back stating they were going to decline the pt due to not having an appropriate bed. Social work to follow-up as needed. Addendum entered by ART Gotti 10/07/24 15:08: [facility] planning[facility], but said they will not have beds until next week. greenhouse worker then sent pt's referral to [facility] in [place] and [facility] in [place] per the pt's discussion on TCU placement yesterday with this worker's co-worker. Social work to follow-up as needed. Addendum entered by ART Gotti 10/07/24 14:46: Discharge planning: greenhouse worker spoke with pt extensively this afternoon about discharge plans. Pt's parents were also present. greenhouse worker explained that pt is being recommended for short-term rehab by Physical Therapy before returning to [facility]. Pt agreed to letting this worker send a referral to [facility] in [place] for review. The pt was recently at [facility] for rehab and said she was sent home because Medicaid would not pay anymore. Pt states she been home at [facility] for about two weeks and now back in the hospital. Social work to follow-up as needed. Original Note: Discharge planning: greenhouse worker spoke to Grisel #[phone] at [facility] who is the pt's [facility] Coordinator and gave her an update on the pt's discharge plans. greenhouse worker also spoke to Emilia, the nurse at [facility] and she stated that the pt can come back to [facility] if she is medically stable and at her baseline. greenhouse worker explained the plan was for discharge on Friday. Emilia did state that she does not work on Fridays or on the weekend, so if there are any major changes for the pt she would not be able to come back until Friday. Social work to follow-up as needed.
--- NOTE | 2024-10-07 15:00 | PC.NURSE ---
End of shift [id number]: Pt AxOx4, pleasant, and cooperative with care. Pt tolerating BIPAP and NC (for meals and up to BR) well, sats remaining 88-91%. Pt reports SOB with activity. Denies pain. Uses call light appropriately and makes needs known. Purewick in place, patent and draining. Up A1 GB W, to the bathroom. BM this morning. Therapies saw Pt today. Blood glucose was 355 this afternoon, 4 units of Aspart given per MD Debus orders. Pt refused lunch. Pt appears resting in chair, call light within reach. Family visited in the afternoon.
--- NOTE | 2024-10-07 17:50 | RESP.RT ---
Patient has a home BiPAP unit. She can be off her home BiPAP unit while she is awake and active. She should wear her BiPAP whenever resting and if she becomes lethargic or confused. At this time she is awake and able to have a coherent conversation.
--- NOTE | 2024-10-07 19:46 | PC.NURSE ---
End of shift note: VSS. Afebrile. Denies pain. Tolerating regular diet. Pt requested to have a break from bipap. Natural Resources Engineer contacted Respiratory therapy ([facility]) and was advised to keep pt O2 sats at 88-92%. Pt could have breaks off of bipap and utilize NC at 2 L O2 while awake. Home bipap utilized when pt is sleeping.
[2024-10-07] MEDS: MONTELUKAST 10 MG TABLET PO (21:21)
[2024-10-07] MEDS: FAMOTIDINE 20 MG TABLET PO (21:22)
[2024-10-07] MEDS: ENOXAPARIN 40 MG/0.4 ML INJ SUBCUT (21:23)
[2024-10-07] MEDS: MIRTAZAPINE 15 MG TABLET PO (21:26)
[2024-10-08] VITALS (7 sets, daily range): BP systolic 113–137; BP diastolic 72–88; PULSE 87–106; RESP 18–20; TEMP 36.3–36.8; O2SAT 91–95
--- NOTE | 2024-10-08 04:26 | PC.NURSE ---
Shift note: patient has been in bed throughout the shift. She seems not motivated participate in activities, especially ambulating to bathroom. Patient preferred staying in bed and used external catheter. New catheter applied at 0230 for the old catheter got broken by patient accidentally. She has been on BIPAP throughout the night. Vitally stable. Patient had adequate sleep. Refused [place] at 0400.
[2024-10-08 07:13] LABS: Chloride* 96 mmol/L (96-114); Sodium* 143 mmol/L (135-149)
[2024-10-08 07:14] LABS: Potassium* 3.1 mmol/L (3.6-5.1)
[2024-10-08 07:16] LABS: Blood Urea Nitrogen* 25 mg/dL (5-24); Creatinine* 0.7 mg/dL (0.5-1.5); Est. Creatinine Clearance* 159.67; Estimated Glomerular Filt Rate 107 ml/min
[2024-10-08 07:17] LABS: Anion Gap 8 mEq/L (7-15); Calcium* 9.6 mg/dL (8.4-10.6); Carbon Dioxide* 39 mmol/L (20-32); Glucose* 148 mg/dL (60-115)
[2024-10-08 07:19] LABS: Basophils Percent Auto 0.2 % (0.0-3.0); Eosinophils Percent Auto 0.2 % (0.0-7.0); Hematocrit 35.1 % (33.0-51.0); Hemoglobin* 10.6 gm/dL (12.0-16.0); Immature Granulocytes Pct Auto 0.9 %; Lymphocytes Percent Auto 12.8 % (20-44); Mean Corpuscular HGB Conc 30 gm/dL (32-36); Mean Corpuscular Hemoglobin 29 pg (26-34); Mean Corpuscular Volume 95 fL (80-100); Monocytes Percent Auto 5.8 % (0.0-11.0); Neutrophils Percent Auto 80.1 % (42.0-72.0); Platelet Count* 339 K/uL (140-440); RDW Coefficient of Variation % 13.7 % (11.5-15.5)
[2024-10-08 07:26] LABS: Slide Review Reflex No
[2024-10-08] MEDS: OMEPRAZOLE 20 MG CAPSULE DR 40 MG PO (08:16)
[2024-10-08] MEDS: predniSONE 20 MG TABLET 40 MG PO (08:16)
[2024-10-08] MEDS: levETIRAcetam 500 MG TABLET 750 MG PO ×2 (08:16→21:32)
[2024-10-08] MEDS: LEVOTHYROXINE 100 MCG TABLET PO (08:17)
[2024-10-08] MEDS: PARoxetine 20 MG TABLET 40 MG PO (08:17)
[2024-10-08] MEDS: TORSEMIDE 5 MG TABLET 10 MG PO (08:17)
[2024-10-08] MEDS: IPRAT-ALBUT 0.5-2.5 MG/3 ML NEB 1 NEB IH ×3 (08:17→21:32)
[2024-10-08] MEDS: FLUTICASONE PROPIONATE NASAL 2 SPRAY NOSTRIL-B (08:17)
[2024-10-08] MEDS: FAMOTIDINE 20 MG TABLET PO ×2 (08:17→21:30)
[2024-10-08] MEDS: SODIUM CHLORIDE 0.9 % (FLUSH) 10 ML SYRINGE 5 ML IVF ×2 (08:18→21:33)
[2024-10-08] MEDS: POTASSIUM CHLORIDE 10 MEQ CAPSULE ER 40 MEQ PO ×2 (08:27→21:30)
--- NOTE | 2024-10-08 12:03 | PC.SOCIAL ---
Addendum entered by ART Gotti 10/08/24 13:40: Discharge planning: police worker received a call from Taya at [facility] [place]. #[phone] stating that the pt was also a pt of theirs and if she does not discharge to a group home facility they will need resumption of care orders faxed to them. Social work to follow-up as needed. Original Note: Discharge planning: police worker sent updated therapy notes and nursing notes to Luz Elena at [facility] per her request. Luz Elena is also waiting to hear from the pt's nurse today, as she had some more group home questions on the pt. police worker asked Bacilio Levine at [facility] for an update from Rasheeda who are also reviewing the pt's referral, but this worker has not heard back. Social work to follow-up as needed.
--- NOTE | 2024-10-08 16:36 | P.IMPN_ITS ---
Assessment and Plan Assessment and plan (1) Acute on chronic respiratory failure with hypoxia and hypercapnia: Problem comment: -acute on chronic recurrent in setting history of severe persistent asthma, RODRICK, obesity hypoventilation, HFpEF - suspect mostly due to heart failure exacerbation this admission -VBG improving -CTA chest shows Pgcl-re-fvbaxncx patchy bilateral ground-glass airspace opacities and scattered areas of consolidation may represent atypical infection Stabilized. RT recommending 2 L O2 per and see during day a BiPAP at bedtime. Will discharge with home BiPAP settings. Status: Resolved (2) Heart failure with preserved ejection fraction: Problem comment: - acute on chronic HFpEF exacerbation - was on torsemide 10mg daily as outpatient - ECHO done in July of this year (See below). Do not need to repeat. - Clinical improvement and good UO on lasix drip. Transition to BID IV furosemide and may be able to transition to po diuretic tomorrow. Continue BiPAP as prescribed as outpatient. DC IV Lasix and start home torsemide. Anticipate discharge hopefully tomorrow. Echocardiogram 07/24/2024 Final Impressions: 1. Technically limited exam. 2. Normal LV function with EF of 64%. 3. Right ventricular cavity size is moderately enlarged, global systolic RV function is normal. 4. Echo contrast was administered to enhance visualization of all left ventricular segments. 5. The mitral valve is not well visualized, no mitral regurgitation. 6. The aortic valve is not well visualized, no stenosis and no regurgitation. Status: Acute (3) Asthma exacerbation: Problem comment: - improving with methylprednisolone. Able to take PO. Transition to oral prednisone - noted elevated WBC-down trending, monitor Status: Acute (4) Obesity hypoventilation syndrome: Problem comment: Chronic. Complicating above Status: Chronic (5) Generalized weakness: Problem comment: - PT and OT evaluation. - PT recommends SNF for rehab. Perhaps patient can go back to [facility]. Will have SW look into it. Goal is to return to [place]. PT and OT aware of goals as stated above. Possible discharge back to [place] tomorrow unless needs SNF placement. Plan for SNF placement, oncology social work assisting Status: Acute (6) Acute hypokalemia: Problem comment: Resolved. Continue daily oral replacement Potassium 3.1, increase daily oral replacement for short-term Status: Resolved (7) RODRICK (obstructive sleep apnea): Problem comment: -h/o noncompliance with CPAP at home. Was recently started on home BiPAP and this was going well while at [facility]. -had previously stated that she was not using this because she was being worked up for vocal cord dysfunction ([facility] note reviewed; no mention of holding CPAP, treating with nasal steroids and Pepcid at HS); admits her PCP has told her to continue to use her CPAP despite this Status: Chronic (8) Blood glucose elevated: Problem comment: - Most recent A1C 6.2 - on steroids again, covering with SSI - outpatient f/u for pre-diabetes Status: Acute Total Time Spent Total Time Spent: Today I spent 45 minutes seeing the patient, reviewing [facility] and [facility] notes/diagnostics, discussing the care plan with our care time that includes social work, PT/OT, pharmacy, RT, fpc and documenting my impressions and plan in the medical record. Subjective Date Seen: 10/08/24 Interval history: Patient seen sitting up in a chair this morning. Eating breakfast. Continues to improve. Awaiting SNF placement. Exam Narrative: Exam Narrative: PHYSICAL EXAM General: Pleasant, conversant, NAD HEENT: Normocephalic, atraumatic, sclera white, EOMI, oral mucosa moist Cardiovascular: RRR, S1S2. No pitting edema Pulmonary: Mildly diminished, no wheezes. No dyspnea on 2 L Neurological: Alert, answering questions appropriately, cranial nerves intact, no focal findings Extremities: No gross joint deformity or swelling. AROMI. Neurovascularly intact Skin: Warm, dry. Const: Vital Signs, click to edit/add: Vital Signs - 24 hr 10/07/24 19:00 10/07/24 23:00 10/07/24 23:00 Temperature 97.4 F L 97.6 F Pulse Rate Pulse Rate [Pulse Oximeter] 105 H 104 H 104 H Respiratory Rate 18 18 18 Blood Pressure [Ri ght Arm] 132/91 H 133/86 Pulse Oximetry 91 91 Oxygen Delivery Me thod Nasal Cannula BiPA P BiPAP Oxygen Flow Rate 2 10/07/24 23:00 10/08/24 01:27 10/08/24 07:00 Temperature 98 F 97.4 F L Pulse Rate 106 H Pulse Rate [Pulse Oximeter] 104 H 100 Respiratory Rate 18 18 Blood Pressure [Ri ght Arm] 137/88 123/81 Pulse Oximetry 92 92 Oxygen Delivery Me thod BiPAP Nasal Cannula Oxygen Flow Rate 2 10/08/24 07:48 10/08/24 11:00 10/08/24 15:00 Temperature 97.7 F Pulse Rate 87 97 Pulse Rate [Pulse Oximeter] 98 Respiratory Rate 20 Blood Pressure [Ri t Arm] 122/77 Pulse Oximetry 93 Oxygen Delivery Me thod Nasal Cannula Oxygen Flow Rate 2 10/08/24 15:00 10/08/24 15:00 Temperature 97.9 F Pulse Rate Pulse Rate [Pulse Oximeter] 97 Respiratory Rate 20 20 Blood [facility] 119/72 Pulse Oximetry 91 91 Oxygen Delivery Me thod Nasal Cannula Nasal Cannula Oxygen Flow Rate 2 2 Labs Labs: Laboratory Results - last 24 hr 10/08/24 06:12 WBC 14.90 H RBC 3.70 L Hgb 10.6 L Hct 35.1 MCV 95 MCH 29 MCHC 30 L RDW Coeff of Tomy 13.7 Plt Count 339 Neut % (Auto) 80.1 H Lymph % (Auto) 12.8 L [place] % (Auto) 5.8 Eos % (Auto) 0.2 Baso % (Auto) 0.2 Neut # (Auto) 11.90 H Lymph # (Auto) 1.90 [place] # (Auto) 0.90 Eos # (Auto) 0.00 Baso # (Auto) 0.00 Abs Immat Gran (auto) 0.10 Imm/Tot Granulo (auto) 0.9 Sodium 143 Potassium 3.1 L Chloride 96 Carbon Dioxide 39 H Anion Gap 8 BUN 25 H Creatinine 0.7 Estimated Creat Clear 159.67 Estimated GFR 107 Glucose 148 H Calcium 9.6
[2024-10-08] MEDS: INSULIN ASPART 100 UNIT/ML SUBCUT ×2 (18:28→21:31)
--- NOTE | 2024-10-08 19:25 | PC.NURSE ---
End of shift [id number] - Pt alert, oriented, cooperative. Up with standby assistance and 4 wheeled walker. Tolerating nasal canula at 2L when home BiPaP not being used per RT. Pt denied pain, n/v, SOB. VSS and afebrile during shift. Appears to be resting comfortably in bed at end of shift with call light within reach.
[2024-10-08] MEDS: ENOXAPARIN 40 MG/0.4 ML INJ SUBCUT (21:30)
[2024-10-08] MEDS: MONTELUKAST 10 MG TABLET PO (21:30)
[2024-10-08] MEDS: MIRTAZAPINE 15 MG TABLET PO (21:34)
[2024-10-09] VITALS (9 sets, daily range): BP systolic 114–149; BP diastolic 75–93; PULSE 87–107; RESP 20–22; TEMP 36.3–36.6; O2SAT 88–93
[2024-10-09 07:15] LABS: Hematocrit 35.8 % (33.0-51.0); Hemoglobin* 10.7 gm/dL (12.0-16.0); Mean Corpuscular HGB Conc 30 gm/dL (32-36); Mean Corpuscular Hemoglobin 29 pg (26-34); Mean Corpuscular Volume 95 fL (80-100); Platelet Count* 352 K/uL (140-440); Red Blood Count 3.76 m/uL (4.00-5.20); White Blood Count* 15.44 K/uL (4.50-11.00)
[2024-10-09 07:28] LABS: Slide Review Reflex No
--- NOTE | 2024-10-09 07:35 | PC.NURSE ---
Pt is alert and oriented x3. Afebrile. Pt denies pain and N/V. Pt reports SOB with exertion. Pt wore BiPAP while in bed and throughout night with 2-4L O2 to maintain O2 stats between 88-92%. Pt is up SBA with walker and gait belt, voiding and tolerating a regular diet. ?
[2024-10-09 07:38] LABS: Chloride* 99 mmol/L (96-114); Potassium* 4.3 mmol/L (3.6-5.1); Sodium* 141 mmol/L (135-149)
[2024-10-09 07:41] LABS: Anion Gap 7 mEq/L (7-15); Blood Urea Nitrogen* 23 mg/dL (5-24); Carbon Dioxide* 35 mmol/L (20-32); Creatinine* 0.6 mg/dL (0.5-1.5); Est. Creatinine Clearance* 186.39; Estimated Glomerular Filt Rate 111 ml/min
[2024-10-09 07:42] LABS: Calcium* 9.3 mg/dL (8.4-10.6); Glucose* 190 mg/dL (60-115)
--- NOTE | 2024-10-09 07:59 | P.IMPN_ITS ---
Assessment and Plan Assessment and plan (1) Acute on chronic respiratory failure with hypoxia and hypercapnia: Problem comment: -acute on chronic recurrent in setting history of severe persistent asthma, RODRICK, obesity hypoventilation, HFpEF - suspect mostly due to heart failure exacerbation this admission -VBG improving -CTA chest shows [id number]-[id number] patchy bilateral ground-glass airspace opacities and scattered areas of consolidation may represent atypical infection Stabilized. RT recommending 2 L O2 per and see during day a BiPAP at bedtime. Will discharge with home BiPAP settings. Status: Resolved (2) Heart failure with preserved ejection fraction: Problem comment: - acute on chronic HFpEF exacerbation - was on torsemide 10mg daily as outpatient - ECHO done in July of this year (See below). Do not need to repeat. - Clinical improvement and good UO on lasix drip. Transition to BID IV furosemide and may be able to transition to po diuretic tomorrow. Continue BiPAP as prescribed as outpatient. DC IV Lasix and continue home torsemide. Echocardiogram 07/24/2024 Final Impressions: 1. Technically limited exam. 2. Normal LV function with EF of 64%. 3. Right ventricular cavity size is moderately enlarged, global systolic RV function is normal. 4. Echo contrast was administered to enhance visualization of all left ventricular segments. 5. The mitral valve is not well visualized, no mitral regurgitation. 6. The aortic valve is not well visualized, no stenosis and no regurgitation. Status: Acute (3) Asthma exacerbation: Problem comment: - improving with methylprednisolone. Able to take PO. Transition to oral prednisone - noted elevated WBC-down trending, monitor Status: Acute (4) Obesity hypoventilation syndrome: Problem comment: Chronic. Complicating above Status: Chronic (5) Generalized weakness: Problem comment: - PT and OT evaluation. - PT recommends SNF for rehab. Perhaps patient can go back to [facility]. Will have SW look into it. Goal is to return to [place]. PT and OT aware of goals as stated above. Plan for SNF placement, dialysis social worker assisting Status: Acute (6) Acute hypokalemia: Problem comment: Resolved. Continue daily oral replacement Potassium 3.1, increase daily oral replacement for short-term. -> 4.3 continue to monitor Status: Resolved (7) RODRICK (obstructive sleep apnea): Problem comment: -h/o noncompliance with CPAP at home. Was recently started on home BiPAP and this was going well while at [facility]. -had previously stated that she was not using this because she was being worked up for vocal cord dysfunction ([facility] PA note reviewed; no mention of holding CPAP, treating with nasal steroids and Pepcid at ); admits her PCP has told her to continue to use her CPAP despite this Status: Chronic (8) Blood glucose elevated: Problem comment: - Most recent A1C 6.2 - on steroids again, covering with SSI - outpatient f/u for pre-diabetes (has not since last hospitalization) Status: Acute Plan Awaiting placement Total Time Spent Total Time Spent: Today I spent 45 minutes seeing the patient, reviewing [facility] and [facility] notes/diagnostics, discussing the care plan with our care time that includes social work, PT/OT, pharmacy, RT, detention and documenting my impressions and plan in the medical record. Subjective Date Seen: 10/09/24 Interval history: Patient is seen sitting up in bed this morning. Continues to feel well. No complaints. Awaiting placement. Encouraged to continue working with therapies as well as independently to increase strength, mobility, flexibility. Exam Narrative: Exam Narrative: PHYSICAL EXAM General: Pleasant, conversant, NAD Cardiovascular: RRR Pulmonary: Mildly diminished, no wheezes. No dyspnea on 2 L Neurological: Alert, answering questions appropriately, cranial nerves intact, no focal findings Extremities: No gross joint deformity or swelling. AROMI. Neurovascularly intact Skin: Warm, dry. Const: Vital Signs, click to edit/add: Vital Signs - 24 hr 10/08/24 11:00 10/08/24 15:00 10/08/24 15:00 Temperature 97.7 F Pulse Rate 97 Pulse Rate [Pulse Oximeter] 98 Respiratory Rate 20 20 Blood Pressure [Ri t Arm] 122/77 Pulse Oximetry 93 91 Oxygen Delivery Me thod Nasal Cannula Nasal Cannula Oxygen Flow Rate 2 2 10/08/24 15:00 10/08/24 19:30 10/08/24 22:19 Temperature 97.9 F 98.2 F 97.6 F Pulse Rate Pulse Rate [Pulse Oximeter] 97 106 H 89 Respiratory Rate 20 20 20 Blood Pressure [Ri t Arm] 119/72 134/81 113/77 Pulse Oximetry 91 94 95 Oxygen Delivery Me thod Nasal Cannula Nasal Cannula BiPAP Oxygen Flow Rate 2 2 4 10/08/24 22:19 10/08/24 22:19 10/08/24 22:19 Temperature Pulse Rate 92 Pulse Rate [Pulse Oximeter] 89 Respiratory Rate 20 20 Blood Pressure [Ri ght Arm] Pulse Oximetry 95 Oxygen Delivery Me thod BiPAP Oxygen Flow Rate 4 10/09/24 02:01 10/09/24 02:21 10/09/24 02:56 Temperature 97.6 F Pulse Rate Pulse Rate [Pulse Oximeter] 87 Respiratory Rate 22 20 20 Blood Pressure [Ri ght Arm] 117/87 Pulse Oximetry 88 92 91 Oxygen Delivery Me thod BiPAP BiPAP BiPAP Oxygen Flow Rate 3 2.5 2 10/09/24 07:45 Temperature Pulse Rate 89 Pulse Rate [Pulse Oximeter] Respiratory Rate Blood Pressure [Ri t Arm] Pulse Oximetry Oxygen Delivery Me thod Oxygen Flow Rate Labs Labs: Laboratory Results - last 24 hr 10/09/24 06:35 WBC 15.44 H RBC 3.76 L Hgb 10.7 L Hct 35.8 MCV 95 MCH 29 MCHC 30 L Plt Count 352 Sodium 141 Potassium 4.3 Chloride 99 Carbon Dioxide 35 H Anion Gap 7 BUN 23 Creatinine 0.6 Estimated Creat Clear 186.39 Estimated GFR 111 Glucose 190 H Calcium 9.3
[2024-10-09] MEDS: OMEPRAZOLE 20 MG CAPSULE DR 40 MG PO (11:07)
[2024-10-09] MEDS: POTASSIUM CHLORIDE 10 MEQ CAPSULE ER 40 MEQ PO ×2 (11:07→20:55)
[2024-10-09] MEDS: FLUTICASONE PROPIONATE NASAL 2 SPRAY NOSTRIL-B (11:07)
[2024-10-09] MEDS: IPRAT-ALBUT 0.5-2.5 MG/3 ML NEB 1 NEB IH ×3 (11:07→20:55)
[2024-10-09] MEDS: predniSONE 20 MG TABLET 40 MG PO (11:08)
[2024-10-09] MEDS: levETIRAcetam 500 MG TABLET 750 MG PO ×2 (11:08→20:56)
[2024-10-09] MEDS: PARoxetine 20 MG TABLET 40 MG PO (11:08)
[2024-10-09] MEDS: LEVOTHYROXINE 100 MCG TABLET PO (11:08)
[2024-10-09] MEDS: FAMOTIDINE 20 MG TABLET PO ×2 (11:09→20:56)
[2024-10-09] MEDS: TORSEMIDE 5 MG TABLET 10 MG PO (11:09)
[2024-10-09] MEDS: SODIUM CHLORIDE 0.9 % (FLUSH) 10 ML SYRINGE 5 ML IVF ×2 (11:14→20:57)
[2024-10-09] MEDS: INSULIN ASPART 100 UNIT/ML SUBCUT ×3 (13:03→20:57)
--- NOTE | 2024-10-09 15:58 | PC.NURSE ---
End of shift - [id number]- PT alert, oriented, cooperative and pleasant. UP with standby assistance and walker/gait belt. Reported to RN that she could feel her cognition change when she needed to go back on her BiPaP, otherwise tolerated O2 via nasal cannula at 2L while moving about room. Denied pain, SOB, n/v. Tolerating regular diet and fluids. VSS and afebrile. Pt appears to be resting in bed with family at bedside and call light within reach at end of shift.
--- NOTE | 2024-10-09 18:46 | PC.NURSE ---
Nursing Care Hours: [id number] Pt this shift calm and cooperative, alert and oriented. No c/o pain. VSS. Pt alternating between bipap and NC independently.
[2024-10-09] MEDS: ENOXAPARIN 40 MG/0.4 ML INJ SUBCUT (20:55)
[2024-10-09] MEDS: MONTELUKAST 10 MG TABLET PO (20:55)
[2024-10-09] MEDS: MIRTAZAPINE 15 MG TABLET PO (20:56)
[2024-10-09] MEDS: MENTHOL 57 GM GEL 1 APPLIC TOPICAL (20:58)
[2024-10-10] VITALS (7 sets, daily range): BP systolic 126–138; BP diastolic 87–97; PULSE 90–106; RESP 18–20; TEMP 36.4–36.6; O2SAT 89–94
--- NOTE | 2024-10-10 05:52 | PC.NURSE ---
[id number] Pt slept well, incontinent of bowel and bladder, encouraged pt to get up and ambulate to BR, does not tolerated well, desats into upper 70's and SOB present, baseline for pt. tolerating home bipap with 3 LPM O2 and 2 LPM NC when awake. denies pain, N/V.
[2024-10-10 06:39] LABS: Hematocrit 34.6 % (33.0-51.0); Hemoglobin* 10.3 gm/dL (12.0-16.0); Mean Corpuscular HGB Conc 30 gm/dL (32-36); Mean Corpuscular Hemoglobin 29 pg (26-34); Mean Corpuscular Volume 96 fL (80-100); Platelet Count* 338 K/uL (140-440); Red Blood Count 3.59 m/uL (4.00-5.20); White Blood Count* 17.39 K/uL (4.50-11.00)
[2024-10-10 06:40] LABS: Slide Review Reflex No
[2024-10-10 06:55] LABS: Chloride* 101 mmol/L (96-114); Potassium* 4.9 mmol/L (3.6-5.1); Sodium* 140 mmol/L (135-149)
[2024-10-10 06:58] LABS: Anion Gap 5 mEq/L (7-15); Blood Urea Nitrogen* 21 mg/dL (5-24); Calcium* 9.4 mg/dL (8.4-10.6); Carbon Dioxide* 34 mmol/L (20-32); Creatinine* 0.7 mg/dL (0.5-1.5); Est. Creatinine Clearance* 159.76; Estimated Glomerular Filt Rate 107 ml/min; Glucose* 155 mg/dL (60-115)
--- NOTE | 2024-10-10 07:42 | PM.IMPN1 ---
Assessment and Plan Assessment and plan (1) Acute on chronic respiratory failure with hypoxia and hypercapnia: Problem comment: ACUTE EPISODE RESOLVED. CHRONIC -acute on chronic recurrent in setting history of severe persistent asthma, RODRICK, obesity hypoventilation, HFpEF - suspect mostly due to heart failure exacerbation this admission -VBG improving -CTA chest shows [id number]-vhihprxv patchy bilateral ground-glass airspace opacities and scattered areas of consolidation may represent atypical infection Stabilized. RT recommending 2 L O2 per and see during day a BiPAP at bedtime. Will discharge with home BiPAP settings. Status: Resolved (2) Heart failure with preserved ejection fraction: Problem comment: - acute on chronic HFpEF exacerbation - was on torsemide 10mg daily as outpatient - ECHO done in July of this year (See below). Do not need to repeat. - Clinical improvement and good UO on lasix drip. Transition to BID IV furosemide and may be able to transition to po diuretic tomorrow. Continue BiPAP as prescribed as outpatient. DC IV Lasix and continue home torsemide. Echocardiogram 07/24/2024 Final Impressions: 1. Technically limited exam. 2. Normal LV function with EF of 64%. 3. Right ventricular cavity size is moderately enlarged, global systolic RV function is normal. 4. Echo contrast was administered to enhance visualization of all left ventricular segments. 5. The mitral valve is not well visualized, no mitral regurgitation. 6. The aortic valve is not well visualized, no stenosis and no regurgitation. Status: Acute (3) Asthma exacerbation: Problem comment: - improving with methylprednisolone. Able to take PO. Transitioned to oral prednisone for 5 day course (last dose 10/11) - fluctuating WBC, monitoring Status: Acute (4) Obesity hypoventilation syndrome: Problem comment: Chronic. Complicating above Status: Chronic (5) Generalized weakness: Problem comment: Continue PT/OT. Encouraged to work on strength/flexibility/ROM independently - admits she is not motivated to do so resident services coordinator assisting with placement - [place] or [facility] currently Status: Acute (6) RODRICK (obstructive sleep apnea): Problem comment: -h/o noncompliance with CPAP at home. Was recently started on home BiPAP and this was going well while at [facility]. -had previously stated that she was not using this because she was being worked up for vocal cord dysfunction ([facility] ENT PA note reviewed; no mention of holding CPAP, treating with nasal steroids and Pepcid at ); admits her PCP has told her to continue to use her CPAP despite this Status: Chronic (7) Blood glucose elevated: Problem comment: - Most recent A1C 6.2 - on steroids again, covering with SSI - outpatient f/u for pre-diabetes (it is not evident if this was addressed during her outpatient visit with Dr. Lamb on 09/30/2024) Status: Acute (8) Acute hypokalemia: Problem comment: RESOLVED Continue daily oral replacement Potassium 3.1, increase daily oral replacement for short-term. -> 4.3 continue to monitor Status: Resolved Plan Awaiting placement Total Time Spent Total Time Spent: Today I spent 45 minutes seeing the patient, reviewing [facility] and [facility] notes/diagnostics, discussing the care plan with our care time that includes social work, PT/OT, pharmacy, RT, half-way and documenting my impressions and plan in the medical record. Subjective Date Seen: 10/10/24 Interval history: Patient is seen sitting up in bed this morning. Has no complaints. Medically stable for discharge. Awaiting placement. Admits she has not been doing independent exercises on her own when therapy is not around. Has asked nursing staff for a Purewick so she does not need to get up and use the bathroom. Exam Narrative: Exam Narrative: PHYSICAL EXAM General: Pleasant, conversant, NAD Cardiovascular: RRR Pulmonary: Mildly diminished, no wheezes. No dyspnea on 2 L Neurological: Alert, answering questions appropriately, cranial nerves intact, no focal findings Extremities: No gross joint deformity or swelling. AROMI. Neurovascularly intact Skin: Warm, dry. Const: Vital Signs, click to edit/add: Vital Signs - 24 hr 10/09/24 07:45 10/09/24 11:00 10/09/24 16:37 Temperature 97.5 F L Pulse Rate 89 Pulse Rate [Pulse Oximeter] 92 100 Respiratory Rate 20 20 Blood Pressure [Ri ght Arm] 149/91 H Pulse Oximetry 93 Oxygen Delivery Me thod BiPAP Oxygen Flow Rate 4 10/09/24 16:37 10/09/24 16:37 10/09/24 19:00 Temperature 97.9 F 97.6 F Pulse Rate Pulse Rate [Pulse Oximeter] 107 H 101 H Respiratory Rate 20 22 Blood Pressure [Ri ght Arm] 122/75 114/83 Pulse Oximetry 92 92 93 Oxygen Delivery Me thod Nasal Cannula Nasal Cannula BiPAP Oxygen Flow Rate 2 2 2 10/09/24 22:50 10/09/24 22:50 10/09/24 22:50 Temperature 97.4 F L Pulse Rate Pulse Rate [Pulse Oximeter] 98 Respiratory Rate 20 20 20 Blood Pressure [[facility] Arm] 125/88 Pulse Oximetry 88 88 Oxygen Delivery Me thod BiPAP BiPAP Oxygen Flow Rate 2 2 10/10/24 03:00 Temperature 97.5 F L Pulse Rate Pulse Rate [Pulse Oximeter] 90 Respiratory Rate 18 Blood Pressure [[facility] Arm] 133/92 H Pulse Oximetry 90 Oxygen Delivery Me thod BiPAP Oxygen Flow Rate 3 Labs Labs: Laboratory Results - last 24 hr 10/09/24 10/10/24 06:35 06:09 WBC 17.39 H RBC 3.59 L Hgb 10.3 L Hct 34.6 MCV 96 MCH 29 MCHC 30 L Plt Count 338 Sodium 140 Potassium 4.9 Chloride 101 Carbon Dioxide 35 H 34 H Anion Gap 7 5 L BUN 23 21 Creatinine 0.6 0.7 Estimated Creat Clear 186.39 159.76 Estimated GFR 111 107 Glucose 190 H 155 H Calcium 9.3 9.4
[2024-10-10] MEDS: FAMOTIDINE 20 MG TABLET PO ×2 (08:44→20:48)
[2024-10-10] MEDS: IPRAT-ALBUT 0.5-2.5 MG/3 ML NEB 1 NEB IH ×3 (08:44→20:49)
[2024-10-10] MEDS: FLUTICASONE PROPIONATE NASAL 2 SPRAY NOSTRIL-B (08:44)
[2024-10-10] MEDS: OMEPRAZOLE 20 MG CAPSULE DR 40 MG PO (08:44)
[2024-10-10] MEDS: levETIRAcetam 500 MG TABLET 750 MG PO ×2 (08:45→20:48)
[2024-10-10] MEDS: INSULIN ASPART 100 UNIT/ML SUBCUT ×4 (08:45→20:50)
[2024-10-10] MEDS: TORSEMIDE 5 MG TABLET 10 MG PO (08:45)
[2024-10-10] MEDS: predniSONE 20 MG TABLET 40 MG PO (08:45)
[2024-10-10] MEDS: LEVOTHYROXINE 100 MCG TABLET PO (08:45)
[2024-10-10] MEDS: PARoxetine 20 MG TABLET 40 MG PO (08:45)
[2024-10-10] MEDS: POTASSIUM CHLORIDE 10 MEQ CAPSULE ER 20 MEQ PO ×2 (08:58→19:01)
[2024-10-10] MEDS: SODIUM CHLORIDE 0.9 % (FLUSH) 10 ML SYRINGE 5 ML IVF ×2 (15:47→20:49)
--- NOTE | 2024-10-10 15:48 | PC.NURSE ---
Nursing Care Hours: [id number] Pt this shift alert and oriented. Requested purewick start of shift because its too much of a hassle to get changed. Loan Analyst educated pt on importance of getting up even if its to change brief vs staying in bed with purewick. Set up toileting schedule Q2H. Pt voiding in toilet with intermittent incontinent episodes. Pt shares she is frustrated with having to get up and initially refused to work with PT. After explaining importance of assessing physical activity along with labs and VS to give us best picture of pt health, pt became understanding and cooperative. Bipap has 3L bled into it and pt on 2-2.5 L NC. Needing reminders to breath through nose and out of mouth when SOB. Pt c/o of skin under bilat eyes were bipap mask sits is burning.
--- NOTE | 2024-10-10 19:31 | PC.NURSE ---
End of shift -RN took over pt care at approximately 1500. Pt alert, oriented, and pleasant. Pt asked RN insightful questions regarding medication management, RN provided related education. Pt up with standby assistance and walker/gait belt. Tolerating O2 at 2-3L via nasal cannula when not using home BiPaP to maintain saturation of 88-92% per RT. Noted to be short of breath with exertion, but able to recover appropriately at rest. Pt reported increased instances of incontinence, related to feelings of anxiety per pt. RN provided emotional support. Pt denied pain, n/v. VSS and afebrile during shift. Appears to be resting in the chair with call light within reach at end of shift.
--- NOTE | 2024-10-10 20:06 | RESP.RT ---
Patient is able to use her home BiPAP independently and has been instructed to work with [employer] and the new facility to keep up with O2 and BiPAP supplies. Patient has been reluctant to do physical activities as she feels short of breath, and staff has been encouraging her to ambulate and be physically active to avoid further deconditioning. She has been on 2L NC while awake and BiPAP nocturnally. Target SATs of 88-92%
[2024-10-10] MEDS: ENOXAPARIN 40 MG/0.4 ML INJ SUBCUT (20:47)
[2024-10-10] MEDS: MONTELUKAST 10 MG TABLET PO (20:48)
[2024-10-10] MEDS: MIRTAZAPINE 15 MG TABLET PO (20:50)
[2024-10-10] MEDS: guaiFENesin 600 MG TAB.ER.12H PO (23:38)
[2024-10-11] VITALS (8 sets, daily range): BP systolic 124–153; BP diastolic 78–111; PULSE 95–120; RESP 18–22; TEMP 36.2–36.6; O2SAT 88–93
--- NOTE | 2024-10-11 06:52 | PC.NURSE ---
Pt alert and oriented x3. Afebrile. Pt denies pain, chest pain, and N/V. SOB is noted with exertion. Pt wore BiPAP throughout night with 3L O2 to maintain O2 stats of 88-92%. Pt is up A1/SBA with walker and gait belt, voiding and tolerating a regular diet. ?
[2024-10-11] MEDS: POTASSIUM CHLORIDE 10 MEQ CAPSULE ER 20 MEQ PO ×2 (07:58→18:14)
[2024-10-11] MEDS: predniSONE 20 MG TABLET 40 MG PO (07:58)
[2024-10-11] MEDS: FLUTICASONE PROPIONATE NASAL 2 SPRAY NOSTRIL-B (08:32)
[2024-10-11] MEDS: PARoxetine 20 MG TABLET 40 MG PO (08:32)
[2024-10-11] MEDS: SODIUM CHLORIDE 0.9 % (FLUSH) 10 ML SYRINGE 5 ML IVF ×2 (08:33→20:32)
[2024-10-11] MEDS: levETIRAcetam 500 MG TABLET 750 MG PO ×2 (08:33→20:30)
[2024-10-11] MEDS: TORSEMIDE 5 MG TABLET 10 MG PO (08:33)
[2024-10-11] MEDS: FAMOTIDINE 20 MG TABLET PO ×2 (08:33→20:31)
[2024-10-11] MEDS: OMEPRAZOLE 20 MG CAPSULE DR 40 MG PO (08:33)
[2024-10-11] MEDS: LEVOTHYROXINE 100 MCG TABLET PO (08:33)
[2024-10-11] MEDS: IPRAT-ALBUT 0.5-2.5 MG/3 ML NEB 1 NEB IH ×3 (08:34→20:28)
--- NOTE | 2024-10-11 09:18 | PM.IMPN1 ---
Assessment and Plan Assessment and plan (1) Acute on chronic respiratory failure with hypoxia and hypercapnia: Problem comment: ACUTE EPISODE RESOLVED. CHRONIC -acute on chronic recurrent in setting history of severe persistent asthma, RODRICK, obesity hypoventilation, HFpEF - suspect mostly due to heart failure exacerbation this admission -VBG improving -CTA chest shows [id number] patchy bilateral ground-glass airspace opacities and scattered areas of consolidation may represent atypical infection Stabilized. RT recommending 2 L O2 per and see during day a BiPAP at bedtime. Will discharge with home BiPAP settings. Patient will be discharged to SNF for ongoing therapies. Recommend continuing BiPAP with home settings at bedtime, oxygen per nasal cannula during the day, max 2 L per respiratory therapy recommendations. Outpatient follow-up with PCP and pulmonology. Status: Resolved (2) Heart failure with preserved ejection fraction: Problem comment: - acute on chronic HFpEF exacerbation - was on torsemide 10mg daily as outpatient - ECHO done in July of this year (See below). Do not need to repeat. - Clinical improvement and good UO on lasix drip. Transition to BID IV furosemide and may be able to transition to po diuretic tomorrow. Continue BiPAP as prescribed as outpatient. DC IV Lasix and continue home torsemide. Echocardiogram 07/24/2024 Final Impressions: 1. Technically limited exam. 2. Normal LV function with EF of 64%. 3. Right ventricular cavity size is moderately enlarged, global systolic RV function is normal. 4. Echo contrast was administered to enhance visualization of all left ventricular segments. 5. The mitral valve is not well visualized, no mitral regurgitation. 6. The aortic valve is not well visualized, no stenosis and no regurgitation. Patient is discharged on home torsemide. Outpatient follow-up with PCP, cardiology as needed. Status: Acute (3) Asthma exacerbation: Problem comment: - improving with methylprednisolone. Able to take PO. Transitioned to oral prednisone for 5 day course (last dose 10/11) - fluctuating WBC, monitoring Patient has completed 5 day course of oral prednisone. Continue home medications. Status: Acute (4) Obesity hypoventilation syndrome: Problem comment: Chronic. Complicating above Status: Chronic (5) RODRICK (obstructive sleep apnea): Problem comment: -h/o noncompliance with CPAP at home. Was recently started on home BiPAP and this was going well while at [facility]. -had previously stated that she was not using this because she was being worked up for vocal cord dysfunction ([facility] ENT PA note reviewed; no mention of holding CPAP, treating with nasal steroids and Pepcid at HS); admits her PCP has told her to continue to use her CPAP despite this Continue BiPAP at bedtime using home settings. Status: Chronic (6) Generalized weakness: Problem comment: Continue PT/OT. Encouraged to work on strength/flexibility/ROM independently - admits she is not motivated to do so employment services director assisting with placement - [facility] currently Patient is discharged to SNF for ongoing therapies. Status: Acute (7) Blood glucose elevated: Problem comment: - Most recent A1C 6.2 - on steroids again, covering with SSI - outpatient f/u for pre-diabetes (it is not evident if this was addressed during her outpatient visit with Dr. Lamb on 09/30/2024) Outpatient follow-up with PCP for further workup and management. Diet and exercise have been discussed. Status: Acute (8) Acute hypokalemia: Problem comment: RESOLVED Continue daily oral replacement Potassium 3.1, increase daily oral replacement for short-term. -> 4.3 continue to monitor Patient may resume home dose potassium supplement on discharge. Status: Resolved Plan Awaiting placement Total Time Spent Total Time Spent: Today I spent 45 minutes seeing the patient, reviewing [facility] and [facility] notes/diagnostics, discussing the care plan with our care time that includes social work, PT/OT, pharmacy, RT, mcfp and documenting my impressions and plan in the medical record. Subjective Date Seen: 10/11/24 Interval history: Patient is seen sitting up in a chair this morning. Eating breakfast. Admits to feeling more anxious this morning, anticipating discharge from the hospital to SNF. Encouraged to continue to work on independent exercises as well as with therapies. No complaints otherwise this morning. Awaiting placement. Exam Narrative: Exam Narrative: PHYSICAL EXAM General: Pleasant, conversant, NAD Cardiovascular: RRR Pulmonary: Remains mildly diminished, no wheezes. No dyspnea on 2 L Neurological: Alert, answering questions appropriately, cranial nerves intact, no focal findings Extremities: No gross joint deformity or swelling. AROMI. Neurovascularly intact Skin: Warm, dry. Const: Vital Signs, click to edit/add: Vital Signs - 24 hr 10/10/24 11:50 10/10/24 15:00 10/10/24 15:00 Temperature 97.6 F 97.6 F Pulse Rate [Pulse Oximeter] 99 102 H Respiratory Rate 20 20 20 Blood Pressure [Ri ght Arm] 126/87 136/97 H Pulse Oximetry 93 89 89 Oxygen Delivery Me thod BiPAP BiPAP Oxygen Flow Rate 3 3 10/10/24 15:56 10/10/24 20:23 10/10/24 21:50 Temperature 97.6 F Pulse Rate [Pulse Oximeter] 104 H 106 H Respiratory Rate 20 20 20 Blood Pressure [Ri ght Arm] 131/88 Pulse Oximetry 92 Oxygen Delivery Me thod BiPAP Oxygen Flow Rate 3 10/10/24 21:50 10/10/24 21:50 10/11/24 01:26 Temperature 97.8 F 97.6 F Pulse Rate [Pulse Oximeter] 106 H 96 Respiratory Rate 20 20 18 Blood Pressure [Ri ght Arm] 138/88 139/90 H Pulse Oximetry 89 89 90 Oxygen Delivery Me thod BiPAP BiPAP BiPAP Oxygen Flow Rate 3 3 3 10/11/24 07:00 10/11/24 07:00 Temperature 97.8 F Pulse Rate [Pulse Oximeter] 95 Respiratory Rate 18 18 Blood Pressure [Ri ght Arm] 136/86 Pulse Oximetry 91 91 Oxygen Delivery Me thod BiPAP BiPAP Oxygen Flow Rate 2 2
[2024-10-11] MEDS: INSULIN ASPART 100 UNIT/ML SUBCUT ×3 (12:04→20:36)
--- NOTE | 2024-10-11 13:07 | PC.NURSE ---
While taking patient to and from the restroom patient began to yell saying cant breathe. Patient agreed to go fo a walk after she had ate her lunch. Patient wanted to sit on her bed, nursing reminding her about the walk. Patient continued yelling at nursing. Nursing asked to stop yelling, that would help her breathe easier. account assistant put on the pulse ox to check her oxygen level. She was at 84 doctor of nursing practice encouraged patient that is she stopped yelling she could catch her breathe. Patient then asked nursing to check her blood pressure which we did. Blood pressure was high do to her yelling. Once patient seemed calm doctor of nursing practice went for a walk, and then lied down in her bed. [place], Med/Surg Neeraj
--- NOTE | 2024-10-11 14:33 | PC.NURSE ---
End of shift [id number]: Pt AxOx4, cooperative with most cares. Pt denies pain. Reports SOB with exertion. Pt up to bathroom A1 GB W. Tolerating reg diet well. Insulin SS provided in the afternoon. Pt went for a walk to the nurses station and back, Pt very agitated and raised voice at [facility]. Strong encouragement needed when getting the patient up for a walk/bathroom. Pt tolerating BiPaP and NC well, needing 1-3L maintenance. Sats remaining between 88-92%. Pt appears resting in chair with call light in reach.
--- NOTE | 2024-10-11 15:27 | PC.SOCIAL ---
Addendum entered and electronically signed by Kathryn Do LCSW 10/11/24 16:09: REYNALDO udpated Bacilio with discharge time. REYNALDO updated patient with discharge time and explained that if she couldn't find anyone to get her belongings, that [facility] may be able to help and she should call them. Patient expressed understanding. Original Note: Discharge Planning: REYNALDO secure emailed Bacilio at [facility], to determine referral status. Bacilio requested updated notes. REYNALDO sent updated PT, OT, and provider notes. [facility] emailed that they can accept patient with a private room and shared bath. REYNALDO spoke with patient about the acceptance from [facility] and shared that patient had not been accepted at [facility] or [facility]. Patient expressed frustration at not being accepted at the other locations and that she only said [facility] as she knew they would accept her. Patient discussed her concerns with going to [facility] as it is farther from family and people won't visit as frequently. SW provided empathy and validation for patient's concerns and feelings. Patient explained that she would have no one to bring her belongings. SW asked about parents, friends, and other family. Patient discussed that her parents are too busy and everyone is too busy during the week. SW explained that facilities only accept on weekdays and so patient won't be able to wait until a weekend, and that because patient is medically ready and there is an accepting facility that patient agreed to, she will need to go. SW suggested patient call her Configuration Technician to see if she can assist and explained SW could call her if patient wants and patient declined REYNALDO assistance and that she would call. Patient agreed to go to [facility]. REYNALDO explained that we would set up NEMT for around 1100 and that they could come earlier or later than that. REYNALDO called PEDRO Nieto at [facility], and updated that patient will be discharging to [facility] for TCU. REYNALDO inquired about the ability for someone to bring patient's belongings if no one else can, and they said this is a possibility. SW to update patient.
--- NOTE | 2024-10-11 15:46 | RESP.RT ---
Reinforcing previous education on wearing BIPAP and oxygen, need to move and exercise. Appreciate CNAs assistance and persistance on getting pt to walk outside of room.
[2024-10-11] MEDS: MONTELUKAST 10 MG TABLET PO (20:30)
[2024-10-11] MEDS: MIRTAZAPINE 15 MG TABLET PO (20:31)
[2024-10-11] MEDS: ENOXAPARIN 40 MG/0.4 ML INJ SUBCUT (20:32)
[2024-10-12 03:00] VITALS: BP 128/99; PULSE 100; RESP 22; TEMP 36.1; O2SAT 90
--- NOTE | 2024-10-12 06:40 | PC.NURSE ---
Shift note: Patient is alert and oriented. Assist of 1, walker and GB. Patient appeared harsh to nurse sometimes but apologizes upon she realized a harsh tone. She refused the Enoxaparin at first but later asked for it. She refuse the Bengay for both 2200 and 0400. Continue to use 2L of oxygen when awake and to bathroom and BIPAP with 2L when sleeping. Se has been tachycardic tonight.
[2024-10-12 07:00] VITALS: BP 136/89; PULSE 100; RESP 20; TEMP 36.6; O2SAT 91
--- NOTE | 2024-10-12 08:00 | P.DS_ITS ---
DS: Providers Provider Date Seen: 10/12/24 Date of admission: 10/06/24 01:39 Primary care physician: Geronimo Lamb MD Admitting Clinician: Ruiz La MD Consults: PT, OT, SW Attending Physician on discharge: Eleanor Presley MD Date of Discharge: 10/12/24 DS: Diagnosis Discharge Diagnosis (1) Acute on chronic respiratory failure with hypoxia and hypercapnia: Status: Resolved Problem details: - acute on chronic recurrent in setting history of severe persistent asthma, RODRICK, obesity hypoventilation, HFpEF - suspect mostly due to heart failure exacerbation this admission - CTA chest on admission: [id number] patchy bilateral ground-glass airspace opacities and scattered areas of consolidation may represent atypical infection - followed by RT, they recommended 2 L O2 per and see during day a BiPAP at bedtime, discharging on home BiPAP settings and NC during the day, max 2 L per RT - Outpatient follow-up with PCP and pulmonology (2) Heart failure with preserved ejection fraction: Status: Acute Problem details: - acute on chronic HFpEF exacerbation - was on torsemide 10mg daily as outpatient - ECHO done in July of this year (See below) - initiated Furosemide gtt on admission, transitioned to oral Torsemide during stay Echocardiogram 07/24/2024 Final Impressions: 1. Technically limited exam. 2. Normal LV function with EF of 64%. 3. Right ventricular cavity size is moderately enlarged, global systolic RV function is normal. 4. Echo contrast was administered to enhance visualization of all left ventricular segments. 5. The mitral valve is not well visualized, no mitral regurgitation. 6. The aortic valve is not well visualized, no stenosis and no regurgitation. (3) Asthma exacerbation: Status: Acute Problem details: - treated with 5 days of Prednisone, back to baseline upon d/c (4) Obesity hypoventilation syndrome: Status: Chronic Problem details: - Chronic (5) RODRICK (obstructive sleep apnea): Status: Chronic Problem details: -h/o noncompliance with CPAP at home. Was recently started on home BiPAP and this has been going well, will continue at d/c (6) Generalized weakness: Status: Acute Problem details: - followed by therapies, d/c to SNF 10/12 (7) Blood glucose elevated: Status: Acute Problem details: - Most recent A1C 6.2 - on steroids again, covering with SSI - outpatient f/u for pre-diabetes (8) Acute hypokalemia: Status: Resolved Problem details: - treated and stable upon d/c, home on supplementation in addition to daily Torsemide DS: Summary Hospital Course Hospital Course: Paloma was admitted to the hospital on 10/06/24 for a heart failure exacerbation in the setting of chronic HFpEF. Also has a history of asthma which appeared to have a mild exacerbation, RODRICK, and obesity hypoventilation system, oxygen dependent during the day and BiPAP dependent overnight. Other notable findings and treatments with details above. Treated with aggressive diuresis and 5 days of prednisone. Followed by therapies and our respiratory team; SNF stay ultimately recommended. Paloma was medically appropriate for d[facility] to [facility] [place] [facility] 10[facility]12[facility]24. Status at Discharge Functional status at discharge: uses cane/walker Overall status at discharge: patient is progressing back to baseline Time Spent with Patient Time attestation: Total time spent providing and/or coordinating discharge services: Time spent: Greater than 30 minutes Exam Narrative: Exam Narrative: GEN: Alert and sitting in bedside chair, speaking in full sentences HEENT: EOMIs bilaterally, no scleral icterus CV: RRR, No concerning murmurs R: LCTA bilaterally without wheezing Ext: wwp, 1-2+ edema BLE, symmetric Skin: No concerning skin lesions or rashes on exposed skin Neuro: No focal deficits or resting tremor Psych: Appropriate Const: Vital Signs, click to edit/add: Vital Signs - 24 hr 10/11/24 13:07 10/11/24 15:00 10/11/24 16:00 Temperature 97.3 F L Pulse Rate [Pulse Oximeter] 120 H 98 Respiratory Rate 22 22 22 Blood Pressure [Ri ght Arm] 153/111 H 151/111 H Pulse Oximetry 90 90 91 Oxygen Delivery Me thod Nasal Cannula BiPA P BiPAP BiPAP Oxygen Flow Rate 3 2 10/11/24 18:17 10/11/24 19:00 10/11/24 22:43 Temperature 97.2 F L Pulse Rate [Pulse Oximeter] 107 H 101 H Respiratory Rate 22 22 22 Blood Pressure [Ri ght Arm] 139/87 Pulse Oximetry 88 93 Oxygen Delivery Me thod Nasal Cannula Nasal Cannula Oxygen Flow Rate 2 2 10/11/24 22:43 10/11/24 22:43 10/12/24 03:00 Temperature 97.4 F L 97 F L Pulse Rate [Pulse Oximeter] 101 H 100 Respiratory Rate 22 22 22 Blood Pressure [Ri ght Arm] 124/78 128/99 H Pulse Oximetry 93 93 90 Oxygen Delivery Me thod BiPAP BiPAP BiPAP Oxygen Flow Rate 2 2 2 DS: Data Data Completed and Pending Completed studies during hospitalization: Procedures Assistance with Respiratory Ventilation, 24-96 Consecutive Hours, Continuous Pos itive Airway Pressure (08/05/24) Assistance with Respiratory Ventilation, Less than 24 Consecutive Hours, Continuous Positive Airway Pressure (07/23/24) Introduction of Other Gas into Respiratory Tract, Via Natural or Artificial Opening (08/05/24) Discharge Plan Discharge Disposition: [facility] Date of Admission: 10/06/24 01:39 Attending Provider on Discharge: Eleanor Presley Primary Care Provider: Geronimo Lamb Condition: Improved Anticipated Discharge Date/Time: 10/12/24 07:55 Discharge Medications: New torsemide 5 mg Tablet 10 mg PO DAILY Qty: 60 0RF carboxymethylcellulose sodium [Refresh Plus] 0.5 % Dropperette 1 drp ophthalmic (eye) BID PRN (Reason: Ocular lubricant) Qty: 30 0RF Continued levetiracetam [Keppra] 750 mg tablet 750 mg PO BID levothyroxine 100 mcg tablet 100 mcg PO DAILY potassium chloride 10 mEq tablet,ER particles/crystals 20 meq PO DAILY polyethylene glycol 3350 17 gram/dose powder 17 g PO DAILY PRN omeprazole 40 mg capsule,delayed release(DR/EC) 40 mg PO DAILY guaifenesin [Mucus Relief ER] 600 mg tablet extended release 12hr 600 mg PO BID cholecalciferol (vitamin D3) 50 mcg (2,000 unit) tablet 50 mcg PO DAILY montelukast 10 mg tablet 10 mg PO HS mirabegron [Myrbetriq] 50 mg tablet extended release 24 hr 50 mg PO DAILY Patient Comments: albuterol sulfate 90 mcg/actuation HFA aerosol inhaler 1 - 2 puff INHALATION Q4H PRN paroxetine HCl 40 mg tablet 40 mg PO DAILY Patient Comments: budesonide-formoterol [Symbicort] 160-4.5 mcg/actuation HFA aerosol inhaler 2 puff INHALATION BID Qty: 1 0RF famotidine 20 mg tablet 20 mg PO BID fluticasone propionate 50 mcg/actuation spray,suspension 2 spray INTRANASAL DAILY ipratropium-albuterol 0.5 mg-3 mg(2.5 mg base)/3 mL solution for nebulization 1 ml INHALATION TID mirtazapine 15 mg tablet 15 mg PO HS acetaminophen 325 mg tablet 650 mg PO Q4H PRN torsemide 10 mg tablet 10 mg PO DAILY Discontinued hydroxyzine pamoate 25 mg capsule 25 mg PO Q6H PRN Discharge Orders: Discharge Order (Routine); Ordered 10/12/24 Ordered By: Eleanor Presley Additional Instructions: CONTINUE HOME BIPAP SETTINGS AT BEDTIME OXYGEN PER NASAL CANULA DURING DAY TIME HOURS, MAX 2L, PER RT RECOMMENDATIONS Activity Level: No Restrictions Discharge Diet: Regular Follow Up Appointments: Geronimo Lamb MD [Primary Care Provider, [facility]] Forms: [facility] Info Instructions Admit to: SNF Discharge Potential: Good Length of Stay: 30-90 days Can use facility standing orders?: Yes Code Status: Full Code Rehab Potential: Good Therapy: Physical Therapy and Occupational Therapy Therapy Orders: Evaluate and Treat Oxygen: Yes Oxygen Delivery Method: Nasal Cannula Oxygen Flow Rate: 2L Urinary Catheter: No Lab Orders: BMP 2 weeks Orders are good >30 days: No Signature: Eleanor Presley MD
[2024-10-12] MEDS: INSULIN ASPART 100 UNIT/ML SUBCUT (08:04)
[2024-10-12] MEDS: POTASSIUM CHLORIDE 10 MEQ CAPSULE ER 20 MEQ PO (08:04)
[2024-10-12] MEDS: levETIRAcetam 500 MG TABLET 750 MG PO (08:57)
[2024-10-12] MEDS: LEVOTHYROXINE 100 MCG TABLET PO (08:58)
[2024-10-12] MEDS: PARoxetine 20 MG TABLET 40 MG PO (08:58)
[2024-10-12] MEDS: TORSEMIDE 5 MG TABLET 10 MG PO (08:59)
[2024-10-12] MEDS: OMEPRAZOLE 20 MG CAPSULE DR 40 MG PO (09:00)
[2024-10-12] MEDS: FAMOTIDINE 20 MG TABLET PO (09:01)
[2024-10-12] MEDS: IPRAT-ALBUT 0.5-2.5 MG/3 ML NEB 1 NEB IH (09:02)
[2024-10-12] MEDS: FLUTICASONE PROPIONATE NASAL 2 SPRAY NOSTRIL-B (09:02)
[2024-10-12] MEDS: SODIUM CHLORIDE 0.9 % (FLUSH) 10 ML SYRINGE 5 ML IVF (09:03)
--- NOTE | 2024-10-12 10:22 | PC.SOCIAL ---
Addendum entered and electronically signed by Kathryn Do LCSW 10/12/24 10:51: REYNALDO alerted by RN that patient is saying she has no belongings and doesn't know what to do. SW met with patient with respiratory therapist Maria Elena to discuss belongings. Patient states that she called her friend but it didn't work for the friend to bring her things. Patient reports that she called [facility] and they didn't answer. SW asked that we call [facility] together to get assistance with possibly bringing patient items. SW and patient spoke with Emilia who states that they could potentially bring her some later today or tomorrow to [facility]. Patient provided a list of items to Emilia that she would like. Patient had no other identified needs at this time. Original Note: Discharge Plannin/19 REYNALDO completed the PAS on 10/11 and it triggered for the [facility] to complete a [id number]. REYNALDO called the [employer] who provided with [facility], with [facility]'s information. REYNALDO called Baudilio and left a voicemail requesting assistance so this would not hold up discharge. REYNALDO called patient's [facility] caseworker protective services to determine if she could help, however, she was unable to and emailed Baudilio so he could call REYNALDO in the morning. 10/12 SW received call from [facility] who was unsure how to navigate this and said he would call the [employer] to determine next steps. SW received call from patient's caseworker protective services who states she will send SW two documents, one from [employer] and then the [employer] level 1. REYNALDO sent the PAS, orders, and caseworker protective services letters to Bacilio via secure email. Bacilio reports no concerns with her coming still at this time. [id number]
[2024-10-12 11:00] VITALS: BP 145/90; PULSE 105; RESP 18; O2SAT 92
--- NOTE | 2024-10-12 13:35 | PC.NURSE ---
Pt discharged @ 1305 via EMS, to [facility]. IV removed. Discharge forms signed. [place] folder given to EMS. Pt in good condition, on 2L NC. Sats @ 88-92%.
== END 2024-10-12 13:05 | DRG 189 ==
LOC: ED 23:04 → MEDSURG 10-06 01:00
PROVIDERS: Physician Assistant; Admitting Provider Student in an Organized Health Care Education/Training Program; Emergency Provider Emergency Medicine; PCP Family Medicine; Visit Provider Student in an Organized Health Care Education/Training Program
DX: J96.22 Acute and chronic respiratory failure with hypercapnia (principal); I50.33 Acute on chronic diastolic (congestive) heart failure; E66.2 Morbid (severe) obesity with alveolar hypoventilation; Z68.43 Body mass index [BMI] 50.0-59.9, adult; J45.901 Unspecified asthma with (acute) exacerbation; G91.9 Hydrocephalus, unspecified; J96.21 Acute and chronic respiratory failure with hypoxia; R53.1 Weakness; E87.6 Hypokalemia; J44.89 Other specified chronic obstructive pulmonary disease; R73.9 Hyperglycemia, unspecified; E03.9 Hypothyroidism, unspecified; E78.5 Hyperlipidemia, unspecified; R56.9 Unspecified convulsions; J38.3 Other diseases of vocal cords; F90.9 Attention-deficit hyperactivity disorder, unspecified type; F41.9 Anxiety disorder, unspecified; F32.A Depression, unspecified; Z91.199 Patient's noncompliance with other medical treatment and regimen due to unspecified reason; Z99.81 Dependence on supplemental oxygen
CPT/HCPCS: 36415; 71046; 71275; 80048; 80053; 82803; 82962; 83605; 83880; 84484; 85025; 85027; 85379; 87040; 87081; 87631; 93005; 94640; 94660; 94761; 97110; 97116; 97162; 97165; 97530; 97535; 99283; 99285; A9270; J1650; J1938; J2919; J3480; J7050; J7512; Q9967

== ENCOUNTER 2024-10-12 12:48 | Outpatient (CLI) | payer OTHER, SELFPAY | END 2024-10-12 12:49 | disposition home or self-care (01) | LOC: AMB 10-14 10:07 | PROVIDERS: PCP Family Medicine; Visit Provider Emergency Medicine | DX: R06.09 Other forms of dyspnea (principal) | CPT/HCPCS: A0425; A0428 ==